=== PATIENT | male | born 1955 | race Caucasian/White ===

== ENCOUNTER 2024-08-21 10:05 | Outpatient (CLI) | payer OTHER, SELFPAY ==
--- OUTSIDE RECORDS SUMMARY | 2024-08-21 10:12 | XMS_ITS | Encounter Summary ---
Author Name [facility] [place] Address [address] [place] [id number] Care Team Providers Care Food Production Supervisor Name Role Phone YUKO BUENROSTRO Primary Care Provider Unavailabl e Insurance Providers: All historical and current Section Date Range: From patient's date of to the date document was created. This section includes the names of all active insurance providers for the patient. Insurance Provider Type of Coverage Plan Name Start of Policy Coverage End of Policy Coverage Group Number Member ID Insurance Provider's Telephone Number Policy Valencia's Name Patient's Relationship to Policy Valencia MEDICARE (WNR) MEDICARE (M) PART A Oct 21, 2020 PART A [id number] [phone] Tabitha DAVIS PATIENT Selected Encounter This section includes the information on record at [place] for the Encounter. Date/Time Encounter Type Encounter Description Reason Provider Source Nov 25, 2023 10:00 AM MTMS BY PHARM EST 15 MIN CLINICAL PHARMACY ICD-10-CM E11.9 Type 2 diabetes mellitus without complications GRANT ROBERTSON E Encounter Template Text not used by [place] Assessments - Encounter Diagnoses This section includes the primary and secondary diagnoses documented for the Encounter. Date/Time Primary/Secondary Diagnosis Diagnosis Name Provider Source Nov 25, 2023 10:29 AM PRIMARY Type 2 diabetes mellitus without complications GRANT ROBERTSON [facility] Nov 25, 2023 10:29 AM SECONDARY Essential (primary) hypertension GRANT ROBERTSON [facility] Plan of Treatment: Future Appointments (+ 6 months) and Future Tests (+/- 45 days) The Plan of Treatment section includes future care activities for the [facility] [place] [facility] This section includes future appointments and future orders which are active, pending or scheduled. Future Appointments This section includes appointments that were scheduled to occur 6 months from the date of the Encounter, up to a maximum of 20 appointments. The data comes from all [place] treatment facilities. Appointment Date/Time Appointment Type Appointme nt Facility Name Jan 07, 2024 11:00 AM AMBULATORY - NONE [facility] Jan 08, 2024 10:30 AM [facility] Jan 09, 2024 11:00 AM [facility] Jan 22, 2024 11:15 AM AMBULATORY - NONE [facility] Jan 23, 2024 09:00 AM AMBULATORY - NONE [facility] Apr 07, 2024 01:00 PM AMBULATORY - NONE [facility] Social History: Smoking Status (Most current) and Tobacco Use (All prior to encounter date) This section includes the most current, and the historical, smoking and tobacco- related health factors from the [place] facility where the Encounter took place. Current Smoking Status This section includes the most current smoking, or tobacco-related health factor, from the [place] facility where the Encounter took place. Date/Time Current Smoking Status Comment Randall ity Sep 30, 2023 11:58 PM VA-TOBACCO NEVER USED [facility] Tobacco Use History This section includes a history of the smoking, or tobacco-related health factors, that were collected on or before the date of the Encounter. The data comes from the [place] facility where the Encounter took place. Date/Time Smoking Status/Tobacco Use Comment F acility Sep 11, 2022 02:15 PM VA-TOBACCO NEVER USED [facility] Feb 16, 2019 02:36 PM VA-TOBACCO NEVER USED [facility] Encounter Notes: All associated encounter notes This section contains the clinical notes associated to the Encounter. Date/Time Encounter Note(s) Provider Source Nov 25, 2023 10:05 AM PHARMACY NOTE: LOCAL TITLE: PHARMACOTHERAPY-CLINICAL PHARMACY NOTE STANDARD TITLE: PHARMACY NOTE DATE OF NOTE: NOV 25, 2023@10:05 ENTRY DATE: NOV 25, 2023@10:05:48 AUTHOR: ELISHA ROBERTSON COSIGNER: URGENCY: STATUS: COMPLETED Visit Type: VVC --> switched to phone Visit conducted by clinical video telehealth. Patient verbal consent obtained. Location/emergency number confirmed KARIN DAVIS is a 68 YO MALE followed by [facility] for medication management. During last contact with patient, the following changes were made: - Start taking carvedilol BID SUBJECTIVE: HPI: Last contacted by [facility] 10/28/23 and plan was to increase carvedilol to prescribed dose. During Current Visit: - Reports no questions/concerns Lifestyle: Diet: - Drinking coconut milk with caffeine during the day & body armor at night Exercise: none; plans to start walking again ROS: (-) hypoglycemia symptoms (-) hyperglycemia symptoms: (-) chest pain (-) muscle pain/cramps (-) hypotension symptoms (-) HTN symptoms Blood pressure blood sugar DATE SBP DPB Pulse AM 11/11 142 89 94 171 11/12 103 85 75 123 11/13 126 82 91 192 11/14 120 80 93 98 11/15 123 82 62 78 11/16 134 11/18 126 96 75 114 11/19 126 76 106 152 11/20 129 92 63 139 11/21 128 87 87 82 11/22 127 101 123 11/23 112 88 92 164 11/24 136 96 78 154 2/ [address] 88 83 130 MIN 103 76 62 78 MAX 142 101 106 192 STDEV 10 7 13 34 Adherence to medications: no missed doses reported OBJECTIVE: ALLERGIES/ADR: NIACIN (March 02, 2019) MEDICATION RECONCILIATION: Active Outpatient Medications (excluding Supplies): Outpatient Medications Status 1) ACCU-CHEK GUIDE (GLUCOSE) TEST STRIP USE 1 STRIP ACTIVE TWICE A WEEK 2) APIXABAN 5MG TAB TAKE ONE TABLET BY MOUTH EVERY 12 ACTIVE HOURS TO PREVENT STROKES 3) ASPIRIN 81MG EC TAB TAKE ONE TABLET BY MOUTH EVERY ACTIVE DAY 4) ATORVASTATIN CALCIUM 80MG TAB TAKE ONE-HALF TABLET BY ACTIVE MOUTH AT BEDTIME 5) CARVEDILOL 12.5MG TAB TAKE ONE TABLET BY MOUTH TWICE Confirmed A DAY FOR BLOOD PRESSURE 6) CHOLECALCIF 25MCG (D3-1,000UNIT) TAB TAKE ONE TABLET ACTIVE BY MOUTH EVERY DAY FOR VITAMIN D REPLACEMENT 7) CYANOCOBALAMIN 1000MCG TAB TAKE ONE TABLET BY MOUTH ACTIVE EVERY DAY FOR B12 8) EMPAGLIFLOZIN 25MG TAB TAKE ONE TABLET BY MOUTH EVERY Confirmed MORNING FOR DIABETES 9) GLIPIZIDE 10MG SA TAB TAKE TWO TABLETS BY MOUTH EVERY Confirmed DAY FOR DIABETES 10) LIDOCAINE 4% TOP CREAM APPLY MODERATE AMOUNT ACTIVE TOPICALLY FOUR TIMES A DAY NEEDED FOR NUMBNESS/DISCOMFORT IN FEET 11) LISINOPRIL 40MG TAB TAKE ONE TABLET BY MOUTH EVERY Confirmed DAY FOR BLOOD PRESSURE 12) MAGNESIUM OXIDE 420MG TAB TAKE ONE TABLET BY MOUTH ACTIVE TWICE A DAY FOR LOW MAGNESIUM LEVEL 13) METFORMIN HCL 1000MG TAB TAKE ONE TABLET BY MOUTH TWO Confirmed TIMES A DAY 14) PIOGLITAZONE HCL 45MG TAB TAKE ONE TABLET BY MOUTH Confirmed EVERY DAY FOR DIABETES Non-VA Medications Status 1) Non-VA NON VA MED NOT LISTED MISCELLANEOUS NERVIVE ACTIVE MOUTH EVERY DAY 15 Total Medications Vitals: Temperature: 97.8 F [36.6 C] (10/01/2023 13:43) Blood Pressure: 123/85 (10/01/2023 13:27) Pulse: 83 (10/01/2023 13:27) Respiration: 17 (10/01/2023 13:43) Pain: 0 (10/01/2023 13:43) Height: 73 in [185.4 cm] (10/01/2023 13:43) Weight: 206.7 lb [93.76 kg] (10/01/2023 13:43) BMI: 27.3 LABS: Basic Metabolic Panel SODIUM 139 (10/01/23) POTASSIUM 4.4 (10/01/23) CREATININE 1.3 H (10/01/23) UREA NITROGEN 20 (10/01/23) GLUCOSE 278 H (10/01/23) CO2 28 (10/01/23) CHLORIDE 104 (10/01/23) EGFR (05/24) 11/22/21 @ 0941 67 CREATININE EGFR (CKD-EPI) 10/01/23 @ 1213 61 MAGNESIUM 1.8 (10/01/23) Collection DT Specimen Test Name Result Units Ref Range 10/01/2023 12:13 PLASMA CREATININE 1.3 H mg/dL 0.7 - 1.2 03/05/2023 10:46 PLASMA CREATININE 1.3 H mg/dL 0.7 - 1.2 10/16/2022 15:07 PLASMA CREATININE 1.2 mg/dL 0.7 - 1.2 10/01/2023 12:13 PLASMA .CREAT EGFR(CKD-E 61 Ref: >=60 03/05/2023 10:46 PLASMA .CREAT EGFR(CKD-E 61 Ref: >=60 10/16/2022 15:07 PLASMA .CREAT EGFR(CKD-E 67 Ref: >=60 CHOLESTEROL 168 (10/01/23) MEASURED LDL____ LDL CALCULATION 100 H (10/01/23) HDL 40 (10/01/23) TRIGLYCERIDE____ Collection DT Spec HGBA1C 10/01/2023 12:14 BLOOD 9.7 H 06/07/2023 17:05 BLOOD 7.0 H 03/05/2023 10:46 BLOOD 7.5 H No data available for: ALB/CREAT RATIO,UR SGOT 21 (10/01/23) SGPT 25 (10/01/23) ASSESSMENT/PLAN: #DM - Goal A1c <8% (FBG 80-160, PPG <210) d/t age per VA/DoD guidelines. Last a1c above goal. BG now averaging at goal. No hypoglycemia. Will continue current meds and get updated a1c next month. - Continue empagliflozin 25mg po qday - Continue pioglitazone 45mg po qday - Continue glipizide SA 20mg po qday - Continue metformin 1000mg po BID - Start checking BG 2x/week #HTN - Goal <140/90 mmHg d/t age per JNC8 guidelines; <130/80mmHg per 2017 ACC/AHA guidelines if can tolerate without hypotension. Home readings right at goal. No changes today. - Continue carvedilol 12.5mg po BID - Continue lisinopril 40mg po qday - Check & record BP daily #Disease-Specific Med Rec: Completed today #Labs: a1c 01/06 - Education provided on therapeutic nonpharmacologic management to achieve goals. - [place] verbalized understanding to all plans discussed today. Questions were answered to vet's satisfaction. Time spent: 15 minutes RTC: 01/07 at 10:30 by phone /viridiana/ ELISHA ROBERTSON PHARMD, BCACP CLINICAL SQL SERVER DBA Signed: 11/25/2023 10:29 ELISHA ROBERTSON [facility]
--- OUTSIDE RECORDS SUMMARY | 2024-08-21 10:12 | XMS_ITS | Encounter Summary ---
Author Name [facility] [place] [facility] [place] Organization [facility] [place] Address [address] [place] [id number] Care Team Providers Care Precision Agriculture Technician Name Role Phone YUKO BUENROSTRO Primary Care [...] PART A Oct 21, 2020 PART A [id number] [phone] Tabitha DAVIS PATIENT Selected Encounter This section includes the information on record at [place] for the Encounter. Date/Time Encounter Type Encounter Description Reason Provider Source Oct 01, 2023 01:45 PM Outpatient Encounter PRIMARY CARE/MEDICINE YUKO PALMA Merna Encounter Template Text not used by [place] Plan of Treatment: Future Appointments (+ 6 months) and Future Tests (+/- 45 days) The Plan of Treatment section includes future care activities for the patient from all [place] treatmentfacilities. This section includes future appointments and future orders which are active, pending or scheduled. Future Appointments This section includes appointments that were scheduled to occur 6 months from the date of the Encounter, up to a maximum of 20 appointments. The data comes from all [place] treatment facilities. Appointment Date/Time Appointment Type Appointme nt Facility Name Oct 28, 2023 08:30 AM AMBULATORY - NONE [facility] Oct 28, 2023 11:00 AM AM[facility]ULATORY - NONE [facility] Nov 25, 2023 10:00 AM AMBULATORY - NONE [facility] Jan 07, 2024 11:00 AM AMBULATORY - NONE [facility] Jan 08, 2024 10:30 AM AMBULATORY - NONE [facility] Jan 09, 2024 11:00 AM AMB[facility]ATORY - NONE [facility] Jan 22, 2024 11:15 AM AMBULATORY - NONE [facility] Jan 23, 2024 09:00 AM AMBULATORY - NONE [facility] Lab Results: +/- 30 days of the encounter This section includes the Chemistry and Hematology Lab Results on record with [place] for the patient. Radiology Reports and Pathology Reports are provided separately, in subsequent sections. Lab Results This section contains the Chemistry/Hematology Results that were resulted 30 days before or 30 daysafter the date of the Encounter. Date/Time Source Result Type Result - Unit Interpretation Reference Range Comment Oct 15, 2023 01:59 PM [facility] OCCULT BLOOD FIT X1 SCREEN Specimen Type: FECES No comment entered. Ordering Provider: YUKO PALMA Report Released Date/Time: Oct 01, 2023 02:20 PM Reporting Lab: [facility] [id number] Performing Lab: [facility] [phone] OCCULT BLOOD (FIT) #1 OF 1 Negative Negative Oct 01, 2023 12:13 PM [facility] HEMOGLOBIN A1C Specimen Type: BLOOD Comment: Values obtained from A1C measurements can vary. For typical A1C assays, a reported value of 7.0 could actually be between 6.7 and 7.3 if measured by a reference method. A reported value of 9.0 could actually be between 8.7 and 9.3. Ref: http://www.ngs p.org/CAPdata. asp Ordering Provider: YUKO PALMA Report Released Date/Time: Sep 11, 2022 02:51 PM Reporting Lab: [facility] [id number] Performing Lab: [facility] [phone] HEMOGLOBIN A1C 9.7 H 4.0-6.0 Oct 01, 2023 12:13 PM [facility] BASIC METABOLIC PANEL+MG Specimen Type: PLASMA No comment entered. Ordering Provider: YUKO PALMA Report Released Date/Time: Sep 11, 2022 02:51 PM Reporting Lab: [facility] [phone] Performing Lab: [facility] [phone] CREATININE 1.3 mg/dL H 0.7-1.2 UREA NITROGEN 20 mg/dL 8-26 GLUCOSE 278 mg/dL H 70-100 SODIUM 139 mmol/L 136-145 POTASSIUM 4.4 mmol/L 3.5-5.1 CHLORIDE 104 mmol/L 98-107 CO2 28 mmol/L 22-29 CALCIUM 9.3 mg/dL 8.4-10.2 MAGNESIUM 1.8 mg/dL 1.6-2.6 ANION GAP 7 mmol/L 5-15 .CREAT EGFR(CKD-EPI) 61 >60 Oct 01, 2023 12:13 PM [facility] LIPID PANEL,NON-FASTING Specimen Type: PLASMA No comment entered. Ordering Provider: YUKO PALMA Report Released Date/Time: Sep 11, 2022 02:51 PM Reporting Lab: [facility] [phone] Performing Lab: [facility] [phone] CHOLESTEROL 168 mg/dL <199 .HDL 40 mg/dL >40 LDL CALCULATION 100 mg/dL H <99 VLDL CALCULATION 28 mg/dL <29 NON HDL CHOLESTEROL 128 mg/dL <129 TRIG(NON FASTING) 139 mg/dL <149 Oct 01, 2023 12:13 PM [facility] AST/SGOT Specimen Type: PLASMA No comment entered. Ordering Provider: YUKO PALMA Report Released Date/Time: Sep 11, 2022 02:51 PM Reporting Lab: [facility] [phone] Performing Lab: [facility] [phone] AST/SGOT 21 U/L <34 Oct 01, 2023 12:13 PM [facility] ALT/SGPT Specimen Type: PLASMA No comment entered. Ordering Provider: YUKO PALMA Report Released Date/Time: Sep 11, 2022 02:51 PM Reporting Lab: [facility] [phone] Performing Lab: [facility] [phone] ALT/SGPT 25 U/L <55 Oct 01, 2023 12:13 PM [facility] CBC Specimen Type: BLOOD No comment entered. Ordering Provider: YUKO PALMA Report Released Date/Time: Sep 11, 2022 02:51 PM Reporting Lab: [facility] [phone] Performing Lab: [facility] [phone] WBC 8.82 10*3/uL 4.0-11.0 RBC 5.56 10*6/uL 4.6-6.2 HGB 16.9 g/dL 13.5-17.9 HCT 50.9 41-54 MCV 91.5 fL 80-100 MCH 30.4 pg 27-33 MCHC 33.2 g/dL 32.0-37.5 PLT 220 10*3/uL 150-400 MPV 9.7 fL 7.4-10.4 RDW 14.6 H 11.5-14.5 Vital Signs: All taken on the encounter date This section contains inpatient and outpatient Vital Signs collected on the date of the Encounter. Date/Time Temperature Pulse Blood Pressure Respiratory Rate SP02 Pain Height Weight Body Mass Index Source Oct 01, 2023 01:43 PM 97.8 F 17 /min 96 % [address] [facility] Oct 01, 2023 01:27 PM 83 /min 123/85 mm[Hg] [facility] Social History: Smoking Status (Most current) and Tobacco Use (All prior to encounter date) This section includes the most current, and the historical, smoking and tobacco- related health factors from the [place] facility where the Encounter took place. Current Smoking Status This section includes the most current smoking, or tobacco-related health factor, from the [place] facility where the Encounter took place. Date/Time Current Smoking Status Comment Randall polanco Sep 30, 2023 11:58 PM VA-TOBACCO NEVER USED [facility] Tobacco Use History This section includes a history of the smoking, or tobacco-related health factors, that were collected on or before the date of the Encounter. The data comes from the [place] facility where the Encounter took place. Date/Time Smoking Status/Tobacco Use Comment F linus Sep 11, 2022 02:15 PM VA-TOBACCO NEVER USED [facility] Feb 16, 2019 02:36 PM VA-TOBACCO NEVER USED [facility] Encounter Notes: All associated encounter notes This section contains the clinical notes associated to the Encounter. Date/Time Encounter Note(s) Provider Source Oct 01, 2023 01:44 PM INTERNAL MEDICINE OUTPATIENT NOTE: LOCAL TITLE: MEDICINE CLINIC NURSING NOTE STANDARD TITLE: INTERNAL MEDICINE OUTPATIENT NOTE DATE OF NOTE: OCT 01, 2023@13:44 ENTRY DATE: OCT 01, 2023@13:44:26 AUTHOR: JAYMIE CORRAL COSIGNER: URGENCY: STATUS: COMPLETED MEDICINE CLINIC NURSING NOTE Has ADDENDA TYPE OF VISIT: Appointment Check In Type of appointment: In-person appointment REASON FOR VISIT: annual ALLERGIES: NIACIN (March 02, 2019) VITAL SIGNS: Blood Pressure: 123/85 (10/01/2023 13:27) Pulse: 83 (10/01/2023 13:27) Respiration: 17 (10/01/2023 13:43) Temperature: 97.8 F [36.6 C] (10/01/2023 13:43) Weight: 206.7 lb [93.76 kg] (10/01/2023 13:43) Height: 73 in [185.4 cm] (10/01/2023 13:43) BMI: 27.3 O2 Sat: 96% (10/01/2023 13:43) Pain: 0 (10/01/2023 13:43) PAIN SCREEN: Patient is not having significant pain that they wish to discuss with their provider today. Suicide Screen: C-SSRS Screening [place] Suicide Severity Rating Scale (C-SSRS) screener 1. Over the past month, have you wished you were or wished you could go to sleep and not wake up? No 2. Over the past month, have you had any actual thoughts of killing yourself? No 3. Over the past month, have you been thinking about how you might do this? Response not required due to responses to other questions. 4. Over the past month, have you had these thoughts and had some intention of acting on them? Response not required due to responses to other questions. 5. Over the past month, have you started to work out or worked out the details of how to kill yourself? Response not required due to responses to other questions. 6. If yes, at any time in the past month did you intend to carry out this plan? Response not required due to responses to other questions. 7. In your lifetime, have you ever done anything, started to do anything, or prepared to do anything to end your life (for example, collected pills, obtained a gun, gave away valuables, went to the roof but didn't jump)? No 8. If YES, was this within the past 3 months? Response not required due to responses to other questions. Depression Screening: Perform PHQ-2 A PHQ-2 screen was performed. The score was 0 which is a negative screen for depression. Over the past two weeks, how often have you been bothered by the following problems? 1. Little interest or pleasure in doing things Not at all 2. Feeling down, depressed, or hopeless Not at all Alcohol Use Screen (AUDIT-C): Alcohol Screen: SCREEN FOR ALCOHOL (AUDIT-C) An alcohol screening test (AUDIT-C) was negative (score=2). 1. How often did you have a drink containing alcohol in the past year? Two to four times a month 2. How many drinks containing alcohol did you have on a typical day when you were drinking in the past year? One or two drinks 3. How often did you have six or more drinks on one occasion in the past year? Never Nursing Annual Screening: Fall History Screen During the past 12 months, have you had any falls? Patient does not report any falls in the past 12 months. MEDICATIONS: Patient is on one of the following medication classes: Antihypertensives, Antidepressants, Antipsychotics, Diuretics, or Controlled substance medication used for pain. FALL RISK ADVICE: Fall Risk Advice provided. Handout entitled Fall Prevention At Home reviewed and given to patient and/or significant other. Script Talk Screen Are you able to read your prescription bottles with your glasses, magnifiers or other aids? Yes or patient not taking any prescriptions. Skin Screen Patient reports any current pressure ulcers, a history of pressure ulcers, or a wound from a medical or surgical instrument maker or Patient is bed-confined or a wheelchair-user or Patient requires assistance to transfer/change position No, Skin Screen is Negative Home Abuse/Violence Screen Is your home free of abuse and violence? Yes MOVE! Program Screen Body Mass Index (BMI)= 27.3 [place]: Collection DT Specimen Test Name Result Units Ref Range 10/01/2023 12:14 BLOOD !! HEMOGLOBIN A1C 9.7 H % 4.0 - 6.0 !! Indicates COMMENTS AVAILABLE...Refer to Interim Lab Report. Khalif [place] Hgb A1C: No data available [place] Hgb A1C: No data available Point of Care Hgb A1C: POC HGB A1C____ No Outpatient Nutrition Screen Body Mass Index (BMI)= 27.3 [place]: Collection DT Specimen Test Name Result Units Ref Range 10/01/2023 12:14 BLOOD !! HEMOGLOBIN A1C 9.7 H % 4.0 - 6.0 !! Indicates COMMENTS AVAILABLE...Refer to Interim Lab Report. Khalif [place] Hgb A1C: No data available [place] Hgb A1C: No data available Point of Care Hgb A1C: POC HGB A1C____ Is patient's BMI less than 18.5? No Does patient have swallowing, coughing, or chewing problems affecting oral intake? No Has patient experienced unplanned weight loss or gain greater than 10 pounds over the last 2 months? No Is patient's Hgb A1C (Glycosylated Hemoglobin) greater than 9.5? Yes Is patient receiving Total Parenteral Nutrition (TPN) or Tube Feedings? No Referral to Nutrition Service (Dietary) ordered. Patient Health Education Screen BARRIERS/SPECIAL NEEDS: No barriers identified PREFERRED STYLE OF LEARNING: Watching something Client Assistive Service (BOB) Screen Does the patient require assistance with outpatient visit? No /viridiana/ JAYMIE CORRAL LPN, LPN Signed: 10/01/2023 13:47 10/01/2023 ADDENDUM STATUS: COMPLETED Herpes Zoster (Shingles) Vaccine: Recombinant zoster vaccine (Shingrix, RZV) dose #2 Administered: ZOSTER RECOMBINANT Date Administered: Oct 01, 2023 13:45 Series: Series 2 Laborer Electroplating: [employer] Lot: [id number] Exp Date: Apr 27, 2024 ND: [id number] Admin Route/Site: INTRAMUSCULAR/LEFT DELTOID Dosage: 0.5mL Vaccine Information Statement(s): RECOMBINANT ZOSTER VACCINE VIS Nov 24, 2021 ([facility]) Order By: Policy Administered By: Frantz Willis Comment: [id number] Vaccine Information Sheet (VIS) was given to the patient/caregiver, education regarding adverse reactions was discussed, as well as barriers to learning, if any, were acknowledged. /viridiana/ FRANTZ WILLIS LPN Signed: 10/01/2023 14:32 JAYMIE CORRAL [facility]
--- OUTSIDE RECORDS SUMMARY | 2024-08-21 10:12 | XMS_ITS ---
[place] MED NUTRITION IN[place] SUBSEQ [facility] Encounter Summary Created on: August 21, 2024 VINCENTSILVAKARIN OSMAN : 1955 Sex: Male Author Name [facility] [facility] Address [address] [place] [id number] Care Team Providers Care Terry Cloth Cutter Hand Name Role Phone YUKO BUENROSTRO Primary Care [...] PART A Oct 21, 2020 PART A [id number] [phone] Tabitha DAVIS PATIENT Selected Encounter This section includes the information on record at [place] for the Encounter. Date/Time Encounter Type Encounter Description Reason Provider Source Jan 09, 2024 11:00 AM MED NUTRITION INDIV SUBSEQ NUTRITION/DIETETI CS-INDIVIDUAL ICD-10-CM E11.65 Type 2 diabetes mellitus with hyperglycemia BOB WOODARD [facility] Encounter Template Text not used by [place] Assessments - Encounter Diagnoses This section includes the primary and secondary diagnoses documented for the Encounter. Date/Time Primary/Secondary Diagnosis Diagnosis Name Provider Source Jan 09, 2024 11:56 AM PRIMARY Type 2 diabetes mellitus with hyperglycemia BOB WOODARD [facility] Jan 09, 2024 11:56 AM SECONDARY Dietary counseling and surveillance BOB WOODARD [facility] Plan of Treatment: Future Appointments (+ 6 months) and Future Tests (+/- 45 days) The Plan of Treatment section includes future care activities for the patient from all [facility]. This section includes future appointments and future orders which are active, pending or scheduled. Future Appointments This section includes appointments that were scheduled to occur 6 months from the date of the Encounter, up to a maximum of 20 appointments. The data comes from all [facility]. Appointment Date/Time Appointment Type Appointme nt Facility Name Jan 22, 2024 11:15 AM AMBULATORY - NONE [facility] Jan 23, 2024 09:00 AM AMBULATORY - NONE [facility] Apr 07, 2024 01:00 PM AMBULATORY - NONE [facility] Jun 03, 2024 07:01 PM AMBULATORY - NONE [facility] Jun 07, 2024 04:06 PM AMBULATORY - NONE [facility] Jun 08, 2024 05:15 PM AMBULATORY - NONE [facility] Jun 18, 2024 01:00 PM AMBULATORY - NONE [facility] Jun 18, 2024 02:00 PM AMBULATORY - NONE [facility] Jun 24, 2024 07:00 AM AMBULATORY - NONE [facility] Jul 07, 2024 02:30 PM AMBULATORY - NONE [facility] Active, Pending, and Scheduled Orders This section includes a listing of several types of active, pending, and scheduled orders, including clinic medications orders, diagnostic test orders, procedure orders and consult orders; where the start date of the order is 45 days before the date of the Encounter or 45 days after the date of theEncounter. The data comes from all [facility]. Test Date/Time Test Type Test Details Facility Name Jan 23, 2024 09:38 AM Laboratory - Chemi stry Order ALBUMIN/CREATININE RATIO URINE URINE WC ONCE [facility] Lab Results: +/- 30 days of the encounter This section includes the Chemistry and Hematology Lab Results on record with [place] for the patient. Radiology Reports and Pathology Reports are provided separately, in subsequent sections. Lab Results This section contains the Chemistry/Hematology Results that were resulted 30 days before or 30 daysafter the date of the Encounter. Date/Time Source Result Type Result - Unit Interpretation Reference Range Comment Jan 22, 2024 10:59 AM [facility] BASIC METABOLIC PANEL+MG Specimen Type: PLASMA No comment entered. Ordering Provider: GRANT ROBERTSON Report Released Date/Time: Jan 08, 2024 11:48 AM Reporting Lab: [facility] [id number] Performing Lab: [facility] [id number] CREATININE 1.5 mg/dL H 0.7-1.2 UREA NITROGEN 30 mg/dL H 8-26 GLUCOSE 224 mg/dL H 70-100 SODIUM 139 mmol/L 136-145 POTASSIUM 4.5 mmol/L 3.5-5.1 CHLORIDE 106 mmol/L 98-107 CO2 25 mmol/L 22-29 CALCIUM 9.5 mg/dL 8.4-10.2 MAGNESIUM 1.8 mg/dL 1.6-2.6 ANION GAP 8 mmol/L 5-15 .CREAT EGFR(CKD-EPI) 51 L >60 Jan 07, 2024 10:55 AM [facility] LIPID PANEL,NON-FASTING Specimen Type: PLASMA No comment entered. Ordering Provider: YUKO BUENROSTRO Report Released Date/Time: Sep 11, 2022 02:51 PM Reporting Lab: [facility] [id number] Performing Lab: [facility] [id number] CHOLESTEROL 148 mg/dL <199 .HDL 37 mg/dL L >40 LDL CALCULATION 81 mg/dL <99 VLDL CALCULATION 30 mg/dL H <29 NON HDL CHOLESTEROL 111 mg/dL <129 TRIG(NON FASTING) 149 mg/dL <149 Jan 07, 2024 10:54 AM [facility] HEMOGLOBIN A1C Specimen Type: BLOOD Comment: Values obtained from A1C measurements can vary. For typical A1C assays, a reported value of 7.0 could actually be between 6.7 and 7.3 if measured by a reference method. A reported value of 9.0 could actually be between 8.7 and 9.3. Ref: http://www.ng sp.org/CAPdat a.asp Ordering Provider: GRANT ROBERTSON Report Released Date/Time: Nov 25, 2023 10:30 AM Reporting Lab: [facility] [id number] Performing Lab: [facility] [id number] HEMOGLOBIN A1C 7.9 H 4.0-6.0 Jan 07, 2024 10:54 AM [facility] COMPREHENSIVE METABOLIC PANEL+MG Specimen Type: PLASMA No comment entered. Ordering Provider: GRANT ROBERTSON Report Released Date/Time: Nov 25, 2023 10:30 AM Reporting Lab: [facility] [id number] Performing Lab: [facility] [phone] CREATININE 1.6 mg/dL H 0.7-1.2 UREA NITROGEN 27 mg/dL H 8-26 GLUCOSE 169 mg/dL H 70-100 SODIUM 141 mmol/L 136-145 POTASSIUM 4.3 mmol/L 3.5-5.1 CHLORIDE 107 mmol/L 98-107 CO2 25 mmol/L 22-29 CALCIUM 9.4 mg/dL 8.4-10.2 PROTEIN,TOTAL 6.7 g/dL 6.0-8.3 ALBUMIN 3.8 g/dL 3.5-5.2 BILIRUBIN, TOTAL 0.8 mg/dL 0.2-1.2 MAGNESIUM 2.1 mg/dL 1.6-2.6 ANION GAP 9 mmol/L 5-15 ALKALINE PHOSPHATASE 67 U/L 40-150 ALT/SGPT 21 U/L <55 AST/SGOT 18 U/L <34 .CREAT EGFR(CKD-EPI) 47 L >60 Social History: Smoking Status (Most current) and Tobacco Use (All prior to encounter date) This section includes the most current, and the historical, smoking and tobacco- related health factors from the [place] facility where the Encounter took place. Current Smoking Status This section includes the most current smoking, or tobacco-related health factor, from the [place] facility where the Encounter took place. Date/Time Current Smoking Status Comment Randall polanco Sep 30, 2023 11:58 PM VA-TOBACCO NEVER USED [facility] Tobacco Use History This section includes a history of the smoking, or tobacco-related health factors, that were collected on or before the date of the Encounter. The data comes from the [place] facility where the Encounter took place. Date/Time Smoking Status/Tobacco Use Comment Sundar [email or web address] Sep 11, 2022 02:15 PM VA-TOBACCO NEVER USED [facility] Feb 16, 2019 02:36 PM VA-TOBACCO NEVER USED [facility] Encounter Notes: All associated encounter notes This section contains the clinical notes associated to the Encounter. Date/Time Encounter Note(s) Provider Source Jan 09, 2024 11:06 AM NUTRITION EDUCATIO N NOTE: LOCAL TITLE: EDUCATION NUTRITION STANDARD TITLE: NUTRITION EDUCATION NOTE DATE OF NOTE: JAN 09, 2024@11:06 ENTRY DATE: JAN 09, 2024@11:06:58 AUTHOR: BOB WOODARD EXP COSIGNER: URGENCY: STATUS: COMPLETED Visit Delivery Method: In-Person Visit Type: Follow Up Visit Time spent with [place]: 55 min Reason for visit: DM mgmt (68 yo MALE) Preferred Name: Karin ASSESSMENT: Pertinent labs/vitals: Reviewed Collection DT Spec HGBA1C 01/07/2024 10:54 BLOOD 7.9 H 10/01/2023 12:14 BLOOD 9.7 H 06/07/2023 17:05 BLOOD 7.0 H 03/05/2023 10:46 BLOOD 7.5 H 09/11/2022 13:21 BLOOD 8.1 H 04/25/2021 10:36 BLOOD 8.0 H 11/08/2020 10:58 BLOOD 8.4 H 08/02/2020 12:11 BLOOD 8.3 H GLUCOSE 169 H (01/07/24) Height: 73 in [185.4 cm] (10/01/2023 13:43) Weight: 206.7 lb [93.76 kg] (10/01/2023 13:43) BMI: 27.3 UBWR: 200-210# Weight change: no sig changes Measurement DT WEIGHT LB(KG)[BMI] 01/09/2024 200.3# 10/01/2023 13:43 206.7(93.76)[27] Vet recall of prior ed: - initially poor ability for ID'g sources of CHO (on food model test vet was able to correctly identify potatoes, white bread, tortilla as CHO but incorrectly identified beef & pork as containing CHO, and did not identify fruit, corn, beans, crackers, wheat bread as containing CHO) - vet remembered concept of carb pairing, but did not have a good handle on what types of food slow down carb, what types of carb are faster than others #DM2 - met with pharm yesterday, reviewed bs, bp; was told to cut down lisinopril - activity: walking 3mi daily most days - drinking lots of water or SF body armor drink, no pop, only uses juice for hypos - reads labels occasionally, knows to look for sugar and avoid/limit if he can (doesn't have in depth understanding of how else to prioritize info gleaned from nutrition label) - med mgmt: empa, glipizide, metformin, pioglitazone #HTN/HLD - relevant dx: h/o CVA 05/2018 w/o overt residual deficits, AFib - not primary area of focus; not discussed today Comparative Standards: - 45-60g CHO/meal, 0-30g CHO/snack NUTRITION DIAGNOSIS: Active Problem: Inconsistent CHO intake Etiology: food and nutrition-related knowledge deficit i/s/o endocrine dysfunction, and competing values for bx change S/Sx: diet recall demonstrating inconsistent CHO intake (outside comparative standard ranges for meal, for a snack), subjective statements demonstrating gaps in DM mgmt knowledge, h/o A1c >8. INTERVENTION: Nutrition Rx - Consistent CHO diet - 45-60g CHO/meal, 0-30g CHO/snack EDUCATION Content related nutrition education - what is a CHO (starch and/or sugar) - CHO is the only macro that will be absorbed as sugar - pro/fat/fiber slow down CHO absorption if eaten at the same time - not all pro/fat/fiber equally health promoting, but only CHO will raise your blood SUGAR specifically - white vs. wheat, typically similar total CHO, but speed of absorption different r/t fat/fiber/protein content - reviewed handouts Nutrition related skill education - ID'g CHO vs. nonCHO foods (practiced with food models) - briefly reviewed label reading to look for g CHO - basic principle of how to eyeball amount of carb on a plate and stay within CHO budget for a meal PARTICIPANT(S) RESPONSE (OUTCOME): Able to communicate or demonstrate understanding with no further questions. MONITORING/EVALUATION: Intervention Goal(s): - Vet will review provided handouts; bring questions to f/u >> n/a, vet reported not receiving; was provided at todays appt, d/c - We will revisit SMART goal setting at future f/u >> n/a, used today for in depth ed vs. counseling/goal setting, d/c (revisit PRN) *NEW* - Vet will be able to correctly ID 8/10 CHO vs. non-CHO containing foods at f/u - Vet will be able to recall 2+ foods that slow CHO absorption (fat/fiber/pro) Outcome Goal(s): - A1c </= 8 at next check >> MET, ongoing FOLLOW UP: Follow up appointment will be scheduled: 04/07 [facility] 1pm /es/ BOB WOODARD [address] 4D PACT DIETITIAN Signed: 01/09/2024 12:27 BOB WOODARD [facility]
--- OUTSIDE RECORDS SUMMARY | 2024-08-21 10:12 | XMS_ITS | Encounter Summary ---
Author Name [facility] ([place] Address [address] [place] [address] Care Team Providers Care Case Fitter Name Role Phone YUKO BUENROSTRO Primary Care [...] PART A Oct 21, 2020 PART A [id number] [phone] Tabitha DAVIS PATIENT Selected Encounter This section includes the information on record at [place] for the Encounter. Date/Time Encounter Type Encounter Description Reason Provider Source Oct 01, 2023 01:03 PM OFFICE O/P EST HI 40-54 MIN PRIMARY CARE/MEDICINE ICD-10-CM I63.9 Cerebral infarction, unspecified YUKO PALMA [facility] Encounter Template Text not used by [place] Assessments - Encounter Diagnoses This section includes the primary and secondary diagnoses documented for the Encounter. Date/Time Primary/Secondary Diagnosis Diagnosis Name Provider Source Oct 01, 2023 02:26 PM PRIMARY Cerebral infarction, unspecified YUKO PALMA [facility] Oct 01, 2023 02:26 PM SECONDARY Essential (primary) hypertension YUKO PALMA [facility] Oct 01, 2023 02:26 PM SECONDARY Hyperlipidemia, unspecified YUKO PALMA [facility] Oct 01, 2023 02:26 PM [facility] 01, 2023 02:26 PM SECONDARY Type 2 diabetes mellitus with diabetic polyneuropathy [facility] Oct 01, 2023 02:26 PM SECONDARY Type 2 diabetes mellitus without complications [facility] Oct 01, 2023 02:26 PM SECONDARY Unspecified atrial fibrillation [facility] Oct 01, 2023 02:26 PM SECONDARY Vitamin D deficiency, unspecified YUKO PALMA [facility] Plan of Treatment: Future Appointments (+ 6 months) and Future Tests (+/- 45 days) The Plan of Treatment section includes future care activities for the patient from all [facility]. This section includes future appointments and future orders which are active, pending or scheduled. Future Appointments This section includes appointments that were scheduled to occur 6 months from the date of the Encounter, up to a maximum of 20 appointments. The data comes from all [facility]. Appointment Date/Time Appointment Type Appointme nt Facility Name Oct 28, 2023 08:30 AM [facility] Oct 28, 2023 11:00 AM [facility] - NONE [facility] Nov 25, 2023 10:00 AM [facility] - NONE [facility] Jan 07, 2024 11:00 AM AMBULATORY - NONE [facility] Jan 08, 2024 10:30 AM [facility] Jan 09, 2024 11:00 AM [facility] - NONE [facility] Jan 22, 2024 11:15 AM AMBULATORY - NONE [facility] Jan 23, 2024 09:00 AM [facility] - NONE [facility] Lab Results: +/- 30 days of the encounter This section includes the Chemistry and Hematology Lab Results on record with [place] for the patient. Radiology Reports and Pathology Reports are provided separately, in subsequent sections. Lab Results This section contains the Chemistry/Hematology Results that were resulted 30 days before or 30 daysafter the date of the Encounter. Date/Time Source Result Type Result - Unit Interpretation Reference Range Comment Oct 15, 2023 01:59 PM [facility] OCCULT BLOOD FIT X1 SCREEN Specimen Type: FECES No comment entered. Ordering Provider: YUKO PALMA Report Released Date/Time: Oct 01, 2023 02:20 PM Reporting Lab: [facility] [id number] Performing Lab: [facility] [id number] OCCULT BLOOD (FIT) #1 OF 1 Negative Negative Oct 01, 2023 12:13 PM [facility] BASIC METABOLIC PANEL+MG Specimen Type: PLASMA No comment entered. Ordering Provider: YUKO PALMA Report Released Date/Time: Sep 11, 2022 02:51 PM Reporting Lab: [facility] [id number] Performing Lab: [facility] [id number] CREATININE 1.3 mg/dL H 0.7-1.2 UREA NITROGEN 20 mg/dL 8-26 GLUCOSE 278 mg/dL H 70-100 SODIUM 139 mmol/L 136-145 POTASSIUM 4.4 mmol/L 3.5-5.1 CHLORIDE 104 mmol/L 98-107 CO2 28 mmol/L 22-29 CALCIUM 9.3 mg/dL 8.4-10.2 MAGNESIUM 1.8 mg/dL 1.6-2.6 ANION GAP 7 mmol/L 5-15 .CREAT EGFR(CKD-EPI) 61 >60 Oct 01, 2023 12:13 PM [facility] HEMOGLOBIN A1C Specimen Type: BLOOD Comment: Values [...] Sep 11, 2022 02:51 PM Reporting Lab: [facility] [id number] Performing Lab: [facility] [phone] HEMOGLOBIN A1C 9.7 H 4.0-6.0 Oct 01, 2023 12:13 PM [facility] LIPID PANEL,NON-FASTING Specimen Type: PLASMA No comment entered. Ordering Provider: YUKO PALMA Report Released Date/Time: Sep 11, 2022 02:51 PM Reporting Lab: [facility] [id number] Performing Lab: [facility] [id number] CHOLESTEROL 168 mg/dL <199 .HDL 40 mg/dL >40 LDL CALCULATION 100 mg/dL H <99 VLDL CALCULATION 28 mg/dL <29 NON HDL CHOLESTEROL 128 mg/dL <129 TRIG(NON FASTING) 139 mg/dL <149 Oct 01, 2023 12:13 PM [facility] CBC Specimen Type: BLOOD No comment entered. Ordering Provider: YUKO PALMA Report Released Date/Time: Sep 11, 2022 02:51 PM Reporting Lab: [facility] [id number] Performing Lab: [facility] [phone] WBC 8.82 10*3/uL 4.0-11.0 RBC 5.56 10*6/uL 4.6-6.2 HGB 16.9 g/dL 13.5-17.9 HCT 50.9 41-54 MCV 91.5 fL 80-100 MCH 30.4 pg 27-33 MCHC 33.2 g/dL 32.0-37.5 PLT 220 10*3/uL 150-400 MPV 9.7 fL 7.4-10.4 RDW 14.6 H 11.5-14.5 Oct 01, 2023 12:13 PM [facility] AST/SGOT Specimen Type: PLASMA No comment entered. Ordering Provider: YUKO PALMA Report Released Date/Time: Sep 11, 2022 02:51 PM Reporting Lab: [facility] [phone] Performing Lab: [facility] [id number] AST/SGOT 21 U/L <34 Oct 01, 2023 12:13 PM [facility] ALT/SGPT Specimen Type: PLASMA No comment entered. Ordering Provider: YUKO PALMA Report Released Date/Time: Sep 11, 2022 02:51 PM Reporting Lab: [facility] [id number] Performing Lab: [facility] [phone] ALT/SGPT 25 U/L <55 Vital Signs: All taken on the encounter date This section contains inpatient and outpatient Vital Signs collected on the date of the Encounter. Date/Time Temperature Pulse Blood Pressure Respiratory Rate SP02 Pain Height Weight Body Mass Index Source Oct 01, 2023 01:43 PM 97.8 F 17 /min 96 % 0 [address] [facility] Oct 01, 2023 01:27 PM 83 /min 123/85 mm[Hg] [facility] Social History: Smoking Status (Most current) and Tobacco Use (All prior to encounter date) This section includes the most current, and the historical, smoking and tobacco- related health factors from the [place] facility where the Encounter took place. Current Smoking Status This section includes the most current smoking, or tobacco-related health factor, from the [place] facility where the Encounter took place. Date/Time Current Smoking Status Comment Randall polanco Sep 30, 2023 11:58 PM VA-TOBACCO NEVER USED [facility] Tobacco Use History This section includes a history of the smoking, or tobacco-related health factors, that were collected on or before the date of the Encounter. The data comes from the [place] facility where the Encounter took place. Date/Time Smoking Status/Tobacco Use Comment F linus Sep 11, 2022 02:15 PM VA-TOBACCO NEVER USED [facility] Feb 16, 2019 02:36 PM VA-TOBACCO NEVER USED [facility] Encounter Notes: All associated encounter notes This section contains the clinical notes associated to the Encounter. Date/Time Encounter Note(s) Provider Source Oct 01, 2023 01:03 PM INTERNAL MEDICINE NOTE: LOCAL TITLE: MEDICINE CLINIC NOTE STANDARD TITLE: INTERNAL MEDICINE NOTE DATE OF NOTE: OCT 01, 2023@13:03 ENTRY DATE: OCT 01, 2023@13:03:43 AUTHOR: YUKO PALMA EXP COSIGNER: URGENCY: STATUS: COMPLETED Nurse's notes reviewed from today. KARIN DAVIS is a 68 year old MALE who presents to clinic for his annual exam HPI: DM-II - Seen by [facility] pharmD prior to this visit. Started on empagliflozin as A1C was 9.7 today. He states has been drinking more soda recently, agrees to cut back. Has neuropathy. States has been seeing chiropractor who recommended TENs unit for feet. He states this has helped with his symptoms. He states a couple weeks ago a callus on the bottom of his foot opened up. He states it since has closed. Denies any active drainage/bleeding currenlty. No redness or pain. Hx of afib, denies CP or SOB. No LH/dizziness. Asymptomatic. Taking eliquis, denies bleeding issues. No s/s of TIA/CVA. Due for colorectal cancer screening - Denies any family hx of colon cancer. Denies any blood in stool. Agreeable to FIT screen. Social History: Branch of Service - [employer], never stationed overseas. EtOH - 1-2 drinks, 2x/week Tobacco - Never user Family History: Cancer - Uncle had lung cancer and neck tumor. ASCVD - Brother had heart valve replacement DM - Mother, Grandmother Surgical Hx: Appendectomy in teenage years L inguinal hernia in 2006 Active problems - Computerized Problem List is the source for the followin. Cerebrovascular accident - 05/2018 2. HTN - Hypertension ([facility] [id number]) 3. Diabetes Mellitus Type 2 ([facility] [id number]) 4. Atrial fibrillation 5. Hyperlipidemia ([facility] [id number]) 6. Hypomagnesemia 7. Deficiency of vitamin D3 8. Diabetic neuropathy Allergies: NIACIN (March 02, 2019) Medications: See below EXAM: VS: Temp: 97.8 F [36.6 C] (10/01/2023 13:43) BP: 123/85 (10/01/2023 13:27) Pulse:83 (10/01/2023 13:27) Resp: 17 (10/01/2023 13:43) Pain: 0 (10/01/2023 13:43) Weight: WEIGHTS IN LAST 6 MONTHS - NONE FOUND Body Mass Index: 27.3 GENERAL: Well nourished, well developed MALE . Not in acute distress. HEENT: Normocephalic/atraumatic. Eyes non-icteric. Mucous membranes moist. CV: irreg, irreg LUNGS: Non-labored breathing. Clear to auscultation bilaterally. ABDOMEN: Active bowel sounds. Abdomen soft, non-tender. Liver non-palpable. EXTREMITIES: No distal edema noted in bilateral LE. Large callus on bottom of foot. No open sores or drainage. No erythema, warmth or tenderness. <50% sensation to monofilament testing. Data/Labs: WBC: 8.82 RBC: 5.56 HGB: 16.9 HCT: 50.9 MCV: 91.5 MCH: 30.4 MCHC: 33.2 RDW: 14.6 H PLT: 220 MPV: 9.7 HGB A1C: 9.7 H GLUCOSE: 278 H UREA NITROGEN: 20 CREATININE: 1.3 H SODIUM: 139 POTASSIUM: 4.4 CHLORIDE: 104 CO2: 28 CALCIUM: 9.3 CHOLESTEROL: 168 MAGNESIUM: 1.8 HDL: 40 ANION GAP: 7 LDL CHOL: 100 H VLDL CHOL: 28 SGOT(37C): 21 SGPT(37C): 25 NON HDL CHOLESTEROL: 128 TRIG(NON FASTING): 139 CREATININE EGFR (CKD-EPI): 61 (x)Patient was informed of available lab, imaging, and other study results associated with today's visit. Assessment and Plan: # DM-II A1C today of 9.7, goal <8. Seen by [facility] PharmD today for CM of HTN, PharmD also agreed to assist with DM med management. - Metformin 1,000mg BID - Pioglitazone 45mg qday - Glipizide 20mg qday - Initiated empagliflozin per [facility] PharmD today - Check feet BID - Annual ophtho - Followed by [facility] PharmD # Diabetic neuropathy Has callous that opened up a few weeks ago, now has closed. No active drainage or signs of infection. high risk given neuropathy. He would like to see podiatry. - Lidocaine cream QID PRN - TENs unit helpful per chiro - Podiatry consult # Afib Asymptomatic. - Carvedilol 12.5mg BID (switched by [facility] PharmD from metoprolol for HTN management) - Eliquis 5mg BID per [facility] # HTN Good control in clinic today. - Lisinopril 40mg qday - Carvedilol 12.5mg BID (switched by [facility] PharmD from metoprolol for HTN management) # Hx of CVA No recurrent s/s of TIA/CVA - Asa 81mg qday - Atorvastatin 40mg qday # Hyperlipidemia - Atorvastatin 40mg qday # Low Vit D - Cholecalciferol 1000 units qday # Health Care Maintenance - FIT screen for colorectal cancer screening - Shingrix vaccine - RTC 1 year with labs for annual, sooner for A1C recheck if discharged from [facility] PharmD (x) Patient/Caregiver indicates readiness to learn, verbalizes understanding, agreement and satisfaction with the treatment plan. Patient/Caregiver doesn't have any further questions today. Total time spent on counseling/coordinating care, reviewing records, examining patient and documenting = 45 minutes More than 50% of this was spent counseling/coordinating care for the medical problems outlined above. Avg Risk Colorectal Cancer Screen: AVERAGE RISK colorectal cancer screening is due based on information available to this clinical reminder FOBT/FIT (Fecal Immunochemical Testing) has been ordered. See order tab for details. Diabetic Eye Screening: Patient reported normal retinal exam (No Diabetic Retinopathy) done previously by an eye child care centre director. Date: July 23, 2023 Location: [facility] Foot Check: A complete foot check was completed at this encounter. VISUAL INSPECTION: Includes inspection for skin breaks, deformity, erythema, trauma, pallor on elevation, dependent rubor, nail deformities, extensive callus and pitting edema. Visual exam results: Abnormal Observations: Thickened toenails, Other: Callus, that has split open PEDAL PULSES: Includes palpation of dorsalis and posterior tibial pulses and signs/symptoms of vascular compromise like pain, pallor, parasthesia or paralysis. Present (even if diminished) SENSORY CHECK: Includes 10 gram Monofilament (Sabine Pass-Nam) test of sensation. Intact (Greater than or equal to 80% of sites checked) Abnormal (Less than 80% of sites checked): Abnormal (decreased or absent sensation to monofilament): HIGH-RISK HIGH RISK FOOT EDUCATION: 1. Advised patient that extra depth footwear with soft molded inserts and braces may be required. 2. Advised patient not to walk barefoot. Instructed the patient to pay close attention to the style and fit of shoes. 3. Explained the importance of daily foot checks. Explained that loss of sensation leads to callouses. Callouses break down, which result in ulcers that may lead to gangrene and amputation. 4. Stressed the importance of daily foot hygiene. Warm (not hot) bathing of the feet, complete drying and thorough inspection for changes in the condition of the skin constitute daily foot care. Demonstrated how to do a thorough foot check. 5. Emphasized the use of clean, non-restrictive socks/stockings and well fitting shoes. 6. Stressed the importance of immediate follow-up of any foot injuries or ulcers. Explained that he/she should be non-weight bearing whenever there are lesions on the foot, to prevent cellular damage. Level of Understanding: Fair Patient referred to Podiatry. Avg Risk Colorectal Cancer Screen: AVERAGE RISK colorectal cancer screening is due based on information available to this clinical reminder FOBT/FIT (Fecal Immunochemical Testing) has been ordered. See order tab for details. Medication Reconciliation: Education Evaluations *Was medication education provided for NEW medications or CHANGES to medications? (including medication name, dose, route, reason for use, and potential side effects). No new medications or medication changes during this encounter. TERATOGENIC MED & CONTRACEPTION REVIEW (Optional)... ======= MEDICATION RECONCILIATION ======= Review Done: The medication list shown below was verified for accuracy and it includes all pending medications/active medications/all medications or discontinued within the last 90 days/all remote medications and non-VA medications. If a given category (i.e. remote meds) is not shown, that means that a patient doesn't have a medication(s) in that category. Allergies listed below were also reviewed/updated for accuracy. Allergies/ADR from [facility] may not display in CPRS. Use JLV MRT5 - Allergies/ADRs FACILITY ALLERGY/ADR -------- No Remote Allergy/ADR Data available for this patient [facility] NIACIN Active and Recently Outpatient Medications (including Supplies): Issue Date Status Last Fill Active Outpatient Medications Refills Expiration 1) ACCU-CHEK GUIDE (GLUCOSE) TEST STRIP ACTIVE (S) Issu:12-27-22 Qty: 50 for 90 days Sig: USE 1 STRIP Refills: 2 Last:10-01-23 TWICE A WEEK Expr:12-28-23 2) APIXABAN 5MG TAB Qty: 180 for 90 days ACTIVE Issu:07-04-23 Sig: TAKE ONE TABLET BY MOUTH EVERY 12 Refills: 3 Last:07-26-23 HOURS TO PREVENT STROKES Expr:07-04-24 3) ATORVASTATIN CALCIUM 80MG TAB Qty: 45 ACTIVE Issu:04-18-23 for 90 days Sig: TAKE ONE-HALF TABLET Refills: 3 Last:06-30-23 BY MOUTH AT BEDTIME Expr:04-18-24 4) CARVEDILOL 12.5MG TAB Qty: 180 for 90 ACTIVE Issu:10-01-23 days Sig: TAKE ONE TABLET BY MOUTH Refills: 3 Last:10-01-23 TWICE A DAY FOR BLOOD PRESSURE Expr:10-01-24 5) CYANOCOBALAMIN 1000MCG TAB Qty: 100 for ACTIVE Issu:06-21-23 90 days Sig: TAKE ONE TABLET BY MOUTH Refills: 3 Last:06-25-23 EVERY DAY FOR B12 Expr:06-21-24 6) EMPAGLIFLOZIN 25MG TAB Qty: 15 for 30 ACTIVE Issu:10-01-23 days Sig: TAKE ONE-HALF TABLET BY Refills: 3 Last:10-01-23 MOUTH EVERY MORNING FOR DIABETES Expr:10-01-24 7) GLIPIZIDE 10MG SA TAB Qty: 180 for 90 ACTIVE Issu:02-11-23 days Sig: TAKE TWO TABLETS BY MOUTH Refills: 1 Last:07-29-23 EVERY DAY FOR DIABETES Expr:02-12-24 8) LIDOCAINE 4% TOP CREAM Qty: 90 for 30 ACTIVE (S) Issu:08-05-23 days Sig: APPLY MODERATE AMOUNT Refills: 9 Last:10-17-23 TOPICALLY FOUR TIMES A DAY NEEDED Expr:08-05-24 FOR NUMBNESS/DISCOMFORT IN FEET 9) LISINOPRIL 40MG TAB Qty: 90 for 90 days ACTIVE Issu:06-07-23 Sig: TAKE ONE TABLET BY MOUTH EVERY Refills: 3 Last:07-16-23 DAY FOR BLOOD PRESSURE Expr:06-07-24 10) METFORMIN HCL 1000MG TAB Qty: 180 for ACTIVE Issu:09-23-23 90 days Sig: TAKE ONE TABLET BY MOUTH Refills: 3 Last:09-24-23 TWO TIMES A DAY Expr:09-23-24 11) PIOGLITAZONE HCL 45MG TAB Qty: 30 for ACTIVE Issu:04-25-23 30 days Sig: TAKE ONE TABLET BY MOUTH Refills: 1 Last:09-16-23 EVERY DAY FOR DIABETES Expr:04-25-24 Issue Date Status Last Fill Inactive Outpatient Medications Refills Expiration 1) APIXABAN 5MG TAB Qty: 180 for 90 days DISCONTINUED Issu:08-10-22 Sig: TAKE ONE TABLET BY MOUTH EVERY 12 Refills: 0 Last:04-27-23 HOURS TO PREVENT STROKES Expr:08-11-23 2) ATORVASTATIN CALCIUM 80MG TAB Qty: 45 DISCONTINUED Issu:06-19-22 for 90 days Sig: TAKE ONE-HALF TABLET Refills: 0 Last:04-11-23 BY MOUTH AT BEDTIME Expr:06-20-23 3) CHOLECALCIF 25MCG (D3-1,000UNIT) TAB Issu:09-11-22 Qty: 100 for 90 days Sig: TAKE ONE Refills: 1 Last:07-02-23 TABLET BY MOUTH EVERY DAY FOR VITAMIN Expr:09-12-23 D REPLACEMENT 4) GLIPIZIDE 10MG SA TAB Qty: 180 for 90 DISCONTINUED Issu:09-11-22 days Sig: TAKE TWO TABLETS BY MOUTH Refills: 2 Last:01-11-23 EVERY DAY FOR DIABETES Expr:09-12-23 5) LIDOCAINE 4% TOP CREAM Qty: 90 for 30 DISCONTINUED Issu:09-11-22 days Sig: APPLY MODERATE AMOUNT Refills: 0 Last:07-29-23 TOPICALLY FOUR TIMES A DAY NEEDED Expr:09-12-23 FOR NUMBNESS/DISCOMFORT IN FEET 6) LISINOPRIL 10MG TAB Qty: 90 for 90 days DISCONTINUED Issu:09-11-22 Sig: TAKE ONE TABLET BY MOUTH EVERY (EDIT) Last:09-28-22 DAY Refills: 3 Expr:09-12-23 7) LISINOPRIL 20MG TAB Qty: 90 for 90 days DISCONTINUED Issu:03-11-23 Sig: TAKE ONE TABLET BY MOUTH EVERY (EDIT) Last:03-13-23 DAY Refills: 3 Expr:03-11-24 8) LISINOPRIL 20MG TAB Qty: 90 for 90 days DISCONTINUED Issu:09-28-22 Sig: TAKE ONE TABLET BY MOUTH EVERY Refills: 3 Last:10-02-22 DAY Expr:09-29-23 9) MAGNESIUM OXIDE 420MG TAB Qty: 200 for Issu:09-11-22 90 days Sig: TAKE ONE TABLET BY MOUTH Refills: 0 Last:09-06-23 TWICE A DAY FOR LOW MAGNESIUM LEVEL Expr:09-12-23 10) METFORMIN HCL 1000MG TAB Qty: 180 for DISCONTINUED Issu:09-11-22 90 days Sig: TAKE ONE TABLET BY MOUTH Refills: 1 Last:06-17-23 TWO TIMES A DAY Expr:09-12-23 11) METOPROLOL SUCCINATE 100MG SA TAB Qty: Issu:09-11-22 45 for 90 days Sig: TAKE ONE-HALF Refills: 0 Last:08-11-23 TABLET BY MOUTH EVERY DAY Expr:09-12-23 12) PIOGLITAZONE HCL 45MG TAB Qty: 30 for DISCONTINUED Issu:09-11-22 30 days Sig: TAKE ONE TABLET BY MOUTH Refills: 0 Last:04-02-23 EVERY DAY FOR DIABETES Expr:09-12-23 Start Date Active Non-VA Medications Refills Expiration 1) Non-VA NON VA MED NOT LISTED ACTIVE MISCELLANEOUS Sig: NERVIVE MOUTH EVERY DAY 24 Total Medications /es/ MAGNOLIA HUGGINS Physician Mold Worker Signed: 10/01/2023 14:26 YUKO PALMA [facility]
--- OUTSIDE RECORDS SUMMARY | 2024-08-21 10:12 | XMS_ITS | Encounter Summary ---
Author Name [facility] [place] [place] Organization [facility] [place] Address [address] [place] [address] Care Team Providers Care Licensed Final Expense Agents Name Role Phone YUKO BUENROSTRO Primary Care [...] PART A Oct 21, 2020 PART A [id number] [phone] Tabitha DAVIS PATIENT Selected Encounter This section includes the information on record at [place] for the Encounter. Date/Time Encounter Type Encounter Description Reason Provider Source Oct 01, 2023 01:00 PM MTMS BY PHARM ADDL 15 MIN CLINICAL PHARMACY ICD-10-CM E11.9 Type 2 diabetes mellitus without complications GRANT ROBERTSON E Encounter Template Text not used by [place] Assessments - Encounter Diagnoses This section includes the primary and secondary diagnoses documented for the Encounter. Date/Time Primary/Secondary Diagnosis Diagnosis Name Provider Source Oct 02, 2023 10:19 AM PRIMARY Type 2 diabetes mellitus without complications GRANT ROBERTSON [facility] Oct 02, 2023 10:19 AM SECONDARY Essential (primary) hypertension GRANT ROBERTSON [facility] Plan of Treatment: Future Appointments (+ 6 months) and Future Tests (+/- 45 days) The Plan of Treatment section includes future care activities for the patient [facility] [place] [facility] This section includes future appointments and future orders which are active, pending or scheduled. Future Appointments This section includes appointments that were scheduled to occur 6 months from the date of the Encounter, up to a maximum of 20 appointments. The data comes from all [place] treatment facilities. Appointment Date/Time Appointment Type Appointme nt Facility Name Oct 28, 2023 08:30 AM [place] [facility] Oct 28, 2023 11:00 AM [facility] [place] [facility] Nov 25, 2023 10:00 AM [facility]ORY - NONE [place] [facility] Jan 07, 2024 11:00 AM AMBULATORY - NONE [facility] Jan 08, 2024 10:30 AM [facility] Jan 09, 2024 11:00 AM [facility] [place]ONE [place] [facility] Jan 22, 2024 11:15 AM AMBULATORY - NONE [facility] Jan 23, 2024 09:00 AM AMBULATORY - NONE [facility] Lab Results: +/- 30 days of the encounter This section includes the Chemistry and Hematology Lab Results on record with [place] for the patient. Radiology Reports and Pathology Reports are provided separately, in subsequent sections. Lab Results This section contains the Chemistry/Hematology Results that were resulted 30 days before or 30 daysafter the date of the Encounter. Date/Time Source Result Type Result - Unit Interpretation Reference Range Comment Oct 15, 2023 01:59 PM [facility] OCCULT BLOOD FIT X1 SCREEN Specimen Type: FECES No comment entered. Ordering Provider: YUKO PALMA Report Released Date/Time: Oct 01, 2023 02:20 PM Reporting Lab: [facility] [id number] Performing Lab: [facility] [id number] OCCULT BLOOD (FIT) #1 OF 1 Negative Negative Oct 01, 2023 12:13 PM [facility] HEMOGLOBIN A1C Specimen Type: BLOOD Comment: [...] Sep 11, 2022 02:51 PM Reporting Lab: [facility] [id number] Performing Lab: [facility] [id number] HEMOGLOBIN A1C 9.7 H 4.0-6.0 Oct 01, 2023 12:13 PM [facility] BASIC METABOLIC PANEL+MG Specimen Type: PLASMA No comment entered. Ordering Provider: YUKO PALMA Report Released Date/Time: Sep 11, 2022 02:51 PM Reporting Lab: [facility] [id number] Performing Lab: [facility] [phone] CREATININE 1.3 mg/dL H 0.7-1.2 UREA NITROGEN 20 mg/dL 8-26 GLUCOSE 278 mg/dL H 70-100 SODIUM 139 mmol/L 136-145 POTASSIUM 4.4 mmol/L 3.5-5.1 CHLORIDE 104 mmol/L 98-107 CO2 28 mmol/L 22-29 CALCIUM 9.3 mg/dL 8.4-10.2 MAGNESIUM 1.8 mg/dL 1.6-2.6 ANION GAP 7 mmol/L 5-15 .CREAT EGFR(CKD-EPI) 61 >60 Oct 01, 2023 12:13 PM [facility] AST/SGOT Specimen Type: PLASMA No comment entered. Ordering Provider: YUKO PALMA Report Released Date/Time: Sep 11, 2022 02:51 PM Reporting Lab: [facility] [id number] Performing Lab: [facility] [id number] AST/SGOT 21 U/L <34 Oct 01, 2023 12:13 PM [facility] LIPID PANEL,NON-FASTING Specimen Type: PLASMA No comment entered. Ordering Provider: YUKO PALMA Report Released Date/Time: Sep 11, 2022 02:51 PM Reporting Lab: [facility] [id number] Performing Lab: [facility] [id number] CHOLESTEROL 168 mg/dL <199 .HDL 40 mg/dL >40 LDL CALCULATION 100 mg/dL H <99 VLDL CALCULATION 28 mg/dL <29 NON HDL CHOLESTEROL 128 mg/dL <129 TRIG(NON FASTING) 139 mg/dL <149 Oct 01, 2023 12:13 PM [facility] CBC Specimen Type: BLOOD No comment entered. Ordering Provider: YUKO PALMA Report Released Date/Time: Sep 11, 2022 02:51 PM Reporting Lab: [facility] [phone] Performing Lab: [facility] [phone] WBC 8.82 10*3/uL 4.0-11.0 RBC 5.56 10*6/uL 4.6-6.2 HGB 16.9 g/dL 13.5-17.9 HCT 50.9 41-54 MCV 91.5 fL 80-100 MCH 30.4 pg 27-33 MCHC 33.2 g/dL 32.0-37.5 PLT 220 10*3/uL 150-400 MPV 9.7 fL 7.4-10.4 RDW 14.6 H 11.5-14.5 Oct 01, 2023 12:13 PM [facility] ALT/SGPT Specimen Type: PLASMA No comment entered. Ordering Provider: YUKO PALMA Report Released Date/Time: Sep 11, 2022 02:51 PM Reporting Lab: [facility] [phone] Performing Lab: [facility] [phone] ALT/SGPT 25 U/L <55 Vital Signs: All taken on the encounter date This section contains inpatient and outpatient Vital Signs collected on the date of the Encounter. Date/Time Temperature Pulse Blood Pressure Respiratory Rate SP02 Pain Height Weight Body Mass Index Source Oct 01, 2023 01:43 PM 97.8 F 17 /min 96 % 0 73 in 206.7 lb 27 [facility] Oct 01, 2023 01:27 PM 83 /min 123/85 mm[Hg] [facility] Social History: Smoking Status (Most current) and Tobacco Use (All prior to encounter date) This section includes the most current, and the historical, smoking and tobacco- related health factors from the [place] facility where the Encounter took place. Current Smoking Status This section includes the most current smoking, or tobacco-related health factor, from the [place] facility where the Encounter took place. Date/Time Current Smoking Status Comment Randall polanco Sep 30, 2023 11:58 PM VA-TOBACCO NEVER USED [facility] Tobacco Use History This section includes a history of the smoking, or tobacco-related health factors, that were collected on or before the date of the Encounter. The data comes from the [facility] where the Encounter took place. Date/Time Smoking Status/Tobacco Use Comment Sundar barriga Sep 11, 2022 02:15 PM VA-TOBACCO NEVER USED [facility] Feb 16, 2019 02:36 PM VA-TOBACCO NEVER USED [facility] Encounter Notes: All associated encounter notes This section contains the clinical notes associated to the Encounter. Date/Time Encounter Note(s) Provider Source Oct 01, 2023 01:04 PM PHARMACY NOTE: LOCAL TITLE: PHARMACOTHERAPY-CLINICAL PHARMACY NOTE STANDARD TITLE: PHARMACY NOTE DATE OF NOTE: OCT 01, 2023@13:04 ENTRY DATE: OCT 01, 2023@13:04:55 AUTHOR: ELISHA ROBERTSON COSIGNER: URGENCY: STATUS: COMPLETED Visit Type: Clinic KARIN DAVIS is a 68 YO MALE followed by [facility] for medication management. During last contact with patient, the following changes were made: - Switched metoprolol to carvedilol SUBJECTIVE: HPI: Last contacted by [facility] 08/16/23 and plan was to switch from metoprolol to carvedilol for better BP control. During Current Visit: - Hasn't started the carvedilol as never received it. Appears it wasn't ordered. - Forgot BP book- but reports that BP have bene up and down at home. Checking BP daily - Feet have been more numb. Seeing outside chiropractor and has been doing 30 minutes of TENS & vitamin B12 --> seems to be helping. No longer numb, but now is tingling. - Hasn't been checking BG Lifestyle: Diet: Breakfast: eggs + pancakes (every once in awhile will go out to eat); usually oatmeal at home Lunch: usually skips Evening meal: pb&jelly sandwich; if goes out to dinner will have [facility] Dessert: SF chocolate Beverages: mainly water, juice (1 cup per day); 1-[address] frederick Exercise: walking 3 miles/day ROS: (-) hypoglycemia symptoms (+) hyperglycemia symptoms: has been peeing more (-) chest pain (-) muscle pain/cramps (-) hypotension symptoms (-) HTN symptoms Adherence to medications: denies missed doses OBJECTIVE: ALLERGIES/ADR: NIACIN (March 02, 2019) MEDICATION RECONCILIATION: Active and Recently Outpatient Medications (excluding Supplies): Active Outpatient Medications Status 1) ACCU-CHEK GUIDE (GLUCOSE) TEST STRIP USE 1 STRIP ACTIVE TWICE A WEEK 2) APIXABAN 5MG TAB TAKE ONE TABLET BY MOUTH EVERY 12 ACTIVE HOURS TO PREVENT STROKES 3) ATORVASTATIN CALCIUM 80MG TAB TAKE ONE-HALF TABLET BY ACTIVE MOUTH AT BEDTIME 4) CYANOCOBALAMIN 1000MCG TAB TAKE ONE TABLET BY MOUTH ACTIVE EVERY DAY FOR B12 5) GLIPIZIDE 10MG SA TAB TAKE TWO TABLETS BY MOUTH EVERY Confirmed DAY FOR DIABETES 6) LIDOCAINE 4% TOP CREAM APPLY MODERATE AMOUNT ACTIVE (S) TOPICALLY FOUR TIMES A DAY NEEDED FOR NUMBNESS/DISCOMFORT IN FEET 7) LISINOPRIL 40MG TAB TAKE ONE TABLET BY MOUTH EVERY Confirmed DAY FOR BLOOD PRESSURE 8) METFORMIN HCL 1000MG TAB TAKE ONE TABLET BY MOUTH TWO See text TIMES A DAY - Has been out of for 4 days; but previously confirms use 9) PIOGLITAZONE HCL 45MG TAB TAKE ONE TABLET BY MOUTH Confirmed EVERY DAY FOR DIABETES Inactive Outpatient Medications Status 1) CHOLECALCIF 25MCG (D3-1,000UNIT) TAB TAKE ONE TABLET BY MOUTH EVERY DAY FOR VITAMIN D REPLACEMENT 2) MAGNESIUM OXIDE 420MG TAB TAKE ONE TABLET BY MOUTH TWICE A DAY FOR LOW MAGNESIUM LEVEL 3) METOPROLOL SUCCINATE 100MG SA TAB TAKE ONE-HALF Confirmed TABLET BY MOUTH EVERY DAY Active Non-VA Medications Status 1) Non-VA NON VA MED NOT LISTED MISCELLANEOUS NERVIVE ACTIVE MOUTH EVERY DAY - [place] antioxidant support (professional formula) - vasopro nitric oxide support (professional formula) Vitals: Temperature: 96.3 F [35.7 C] (09/11/2022 14:25) Blood Pressure: 154/112 (09/11/2022 14:33) Pulse: 97 (09/11/2022 14:25) Respiration: 18 (09/11/2022 14:25) Pain: 0 (09/11/2022 14:25) Height: 73 in [185.4 cm] (09/11/2022 14:25) Weight: 203.6 lb [92.35 kg] (09/11/2022 14:25) BMI: 26.9 LABS: Basic Metabolic Panel SODIUM 139 (03/05/23) POTASSIUM 4.6 (03/05/23) CREATININE 1.3 H (03/05/23) UREA NITROGEN 17 (03/05/23) GLUCOSE 83 (06/07/23) CO2 23 (03/05/23) CHLORIDE 108 H (03/05/23) EGFR (05/24) 11/22/21 @ 0941 67 CREATININE EGFR (CKD-EPI) 03/05/23 @ 1046 61 MAGNESIUM 1.4 L (03/05/23) Collection DT Specimen Test Name Result Units Ref Range 03/05/2023 10:46 PLASMA CREATININE 1.3 H mg/dL 0.7 - 1.2 10/16/2022 15:07 PLASMA CREATININE 1.2 mg/dL 0.7 - 1.2 09/11/2022 13:21 PLASMA CREATININE 1.2 mg/dL 0.7 - 1.2 03/05/2023 10:46 PLASMA .CREAT EGFR(CKD-E 61 Ref: >=60 10/16/2022 15:07 PLASMA .CREAT EGFR(CKD-E 67 Ref: >=60 09/11/2022 13:21 PLASMA .CREAT EGFR(CKD-E 67 Ref: >=60 11/22/2021 09:41 PLASMA ESTIMATED GFR(eGF >60 Ref: >=60 06/06/2021 11:13 PLASMA ESTIMATED GFR(eGF >60 Ref: >=60 12/20/2020 10:21 PLASMA ESTIMATED GFR(eGF 47 L Ref: >=60 CHOLESTEROL____ MEASURED LDL____ LDL CALCULATION____ HDL____ TRIGLYCERIDE____ Collection DT Spec HGBA1C 10/01/2023 12:14 BLOOD 9.7 H 06/07/2023 17:05 BLOOD 7.0 H 03/05/2023 10:46 BLOOD 7.5 H Collection DT Spec WBC HGB HCT PLT MCV 10/01/2023 12:14 BLOOD 8.82 16.9 50.9 220 91.5 ASSESSMENT/PLAN: #DM - Goal A1c <8% (FBG 80-160, PPG <210) d/t age per VA/DoD guidelines. A1c elevated. Not checking BG at home. Will add empagliflozin to current regimen. Previously tried a few years ago and didn't have much effect on BG, but will retry. Will also make dietary changes including decreasing soda, juice, and decreasing carbs. - Start empagliflozin 12.5mg po qday - Continue pioglitazone 4mg po qday - Continue glipizide SA 20mg po qday - Continue metformin 1000mg po BID - Start checking BG 2x/week #HTN - Goal <140/90 mmHg d/t age per JNC8 guidelines; <130/80mmHg per 2017 ACC/AHA guidelines if can tolerate without hypotension. Clinic reading at goal. Will still transition from metoprolol to carvedilol for better BP control. - Stop metoprolol - Start carvedilol 12.5mg po BID - Check & record BP daily #Disease-Specific Med Rec: Completed today #Labs: a1c in 3 months - Educated vet on indication/risks/benefits of new/changed medication. - Education provided on therapeutic nonpharmacologic management to achieve goals. - Vet advised of recent labs. - [place] verbalized understanding to all plans discussed today. Questions were answered to vet's satisfaction. Time spent: 30 minutes RTC: 1 month by phone /viridiana/ ARTURO FERRISD, BCACP CLINICAL BLOW DOWN HELPER Signed: 10/02/2023 10:20 ELISHA ROBERTSON [facility]
--- OUTSIDE RECORDS SUMMARY | 2024-08-21 10:12 | XMS_ITS | Encounter Summary ---
Author Name [facility] [place] Address [address] [place] [address] Care Team Providers Care Hand Stripper Name Role Phone YUKO BUENROSTRO Primary Care [...] PART A Oct 21, 2020 PART A [id number] [phone] Tabitha DAVIS PATIENT Selected Encounter This section includes the information on record at [place] for the Encounter. Date/Time Encounter Type Encounter Description Reason Pro vider Source May 29, 2024 11:12 AM Outpatient Encounter TELEPHONE TRIAGE IHE Encounter Template Text not used by [place] Plan of Treatment: Future Appointments (+ 6 months) and Future Tests (+/- 45 days) The Plan of Treatment section includes future care activities for the patient from all [place] treatmentfacilities. This section includes future appointments and future orders which are active, pending or scheduled. Future Appointments This section includes appointments that were scheduled to occur 6 months from the date of the Encounter, up to a maximum of 20 appointments. The data comes from all [place] treatment facilities. Appointment Date/Time Appointment Type Appointme nt Facility Name Jun 03, 2024 07:01 PM [facility] Jun 07, 2024 04:06 PM [facility] Jun 08, 2024 05:15 PM [place] [place] [facility] Jun 18, 2024 01:00 PM [facility] [place] [facility] Jun 18, 2024 02:00 PM [facility] [facility] Jun 24, 2024 07:00 AM [facility] Active, Pending, and Scheduled Orders This section includes a listing of several types of active, pending, and scheduled orders, including clinic medications orders, diagnostic test orders, procedure orders and consult orders; where the start date of the order is 45 days before the date of the Encounter or 45 days after the date of theEncounter. The data comes from all [place] treatment facilities. Test Date/Time Test Type Test Details Facility Name Jun 17, 2024 09:26 AM Consult Order COMMUNITY CARE-IV THERAPY [facility] Animal Behaviourist[facility] Jun 17, 2024 09:46 AM Consult Order INFECTIOUS DISEASE OUTPT [facility] Jun 17, 2024 10:08 AM Consult Order PODIATRY O UTPT [facility] Social History: Smoking Status (Most current) and Tobacco Use (All prior to encounter date) This section includes the most current, and the historical, smoking and tobacco- related health factors from the [place] facility where the Encounter took place. Current Smoking Status This section includes the most current smoking, or tobacco-related health factor, from the [place] facility where the Encounter took place. Date/Time Current Smoking Status Comment Randall ity Sep 30, 2023 11:58 PM VA-TOBACCO NEVER USED [facility] Tobacco Use History This section includes a history of the smoking, or tobacco-related health factors, that were collected on or before the date of the Encounter. The data comes from the [place] facility where the Encounter took place. Date/Time Smoking Status/Tobacco Use Comment F acility Sep 11, 2022 02:15 PM VA-TOBACCO NEVER USED [facility] Feb 16, 2019 02:36 PM VA-TOBACCO NEVER USED [facility] Encounter Notes: All associated encounter notes This section contains the clinical notes associated to the Encounter. Date/Time Encounter Note(s) Provider Source Jun 01, 2024 09:26 AM ADDENDUM: LOCAL TITLE: Addendum STANDARD TITLE: ADDENDUM DATE OF NOTE: JUN 01, 2024@09:26:21 ENTRY DATE: JUN 01, 2024@09:26:23 AUTHOR: YUKO BUENROSTRO COSIGNER: URGENCY: STATUS: COMPLETED REviewed records, pt has diabetic foot ulcer in setting of diabetic neuropathy x 1 month. No signs of infection on exam 05/29/24. Would recommend podiatry consult, which has been placed. [facility], will be determined by specialty care. Please inform patient. If he develops any s/s of infection (increased erythema, warmth, tenderness, drainage, f/c/ns etc) needs to return to local UC/ED immediately. /estevan BUENROSTRO Physician Certified Nurses' Aide Signed: 06/01/2024 09:27 Receipt Acknowledged By: 06/01/2024 11:25 /viridiana/ OBDULIA ORTIZ RN RN, BSN === --- Original Document --- 05/29/24 CCC: SCHEDULING ADMINISTRATION: Primary Care Call Center Primary Care Provider Call. Please contact at the following number: [phone] Other: went to [facility] in [place] for a foot wound due to his diabetes. They told him to go to [facility] on Saturday for further care. I explained to he does not have an active consult for that visit. Please call to advise/assist. This note was created by a 3 [facility] Call Center LEA/GALO. Please do not alert this grant writer by adding as a signer for future communications. Alerts are not monitored by this user, please reach out to [facility] Leadership instead if indicated. /viridiana/ ADONIS CABRAL MSA,3 [facility] Signed: 05/29/2024 11:17 Receipt Acknowledged By: 05/29/2024 14:34 /estevan ORTIZ RN RN, BSN 05/29/2024 ADDENDUM STATUS: COMPLETED Financial Center Manager called and spoke to vet. Shared that right now, [place] not [place] clinic appt. Asked if he knows if his medicare would. He is not sure. He is agreeable to cancel the wound clinic appt for Saturday and see if PCP can place consult for wound clinic in the community. /viridiana/ OBDULIA ORTIZ RN RN, BSN Signed: 05/29/2024 14:36 Receipt Acknowledged By: 06/01/2024 09:26 /viridiana/ YUKO BUENROSTRO Physician Certified Nurses' Aide 06/01/2024 ADDENDUM STATUS: UNSIGNED You may not VIEW this UNSIGNED Addendum. YUKO BUENROSTRO [facility] May 29, 2024 02:35 PM ADDENDUM: LOCAL TITLE: Addendum STANDARD TITLE: ADDENDUM DATE OF NOTE: MAY 29, 2024@14:35:02 ENTRY DATE: MAY 29, 2024@14:35:04 AUTHOR: OBDULIA ORTIZ EXP COSIGNER: URGENCY: STATUS: COMPLETED Financial Center Manager called and spoke to vet. Shared that right now, [place] not [place] clinic appt. Asked if he knows if his medicare would. He is not sure. He is agreeable to cancel the wound clinic appt for Saturday and see if PCP can place consult for wound clinic in the community. /viridiana/ OBDULIA ORTIZ RN RN, BSN Signed: 05/29/2024 14:36 Receipt Acknowledged By: 06/01/2024 09:26 /viridiana/ YUKO BUENROSTRO Physician Certified Nurses' Aide === --- Original Document --- 05/29/24 CCC: SCHEDULING ADMINISTRATION: Primary Care Call Center Primary Care Provider Call. Please contact at the following number: [phone] Other: Laurel went to [facility] in [place] for a foot wound due to his diabetes. They told him to go to [facility] on Saturday for further care. I explained to he does not have an active consult for that visit. Please call to advise/assist. This note was created by a 3 [facility] Call Center AMSA/GALO. Please do not alert this grant writer by adding as a signer for future communications. Alerts are not monitored by this user, please reach out to [facility] Leadership instead if indicated. /viridiana/ ADONIS CABRAL MSA,3 [facility] Signed: 05/29/2024 11:17 Receipt Acknowledged By: 05/29/2024 14:34 /viridiana/ OBDULIA ORTIZ RN RN, BSN 06/01/2024 ADDENDUM STATUS: UNSIGNED You may not VIEW this UNSIGNED Addendum. OBDULIA ORTIZ [facility] May 29, 2024 11:12 AM ADMINISTRATIVE NOT E: LOCAL TITLE: CCC: SCHEDULING ADMINISTRATION STANDARD TITLE: ADMINISTRATIVE NOTE DATE OF NOTE: MAY 29, 2024@11:12 ENTRY DATE: MAY 29, 2024@11:13:04 AUTHOR: ADONIS CABRAL COSIGNER: URGENCY: STATUS: COMPLETED CCC: SCHEDULING ADMINISTRATION Has ADDENDA Primary Care Call Center Primary Care Provider Call. Please contact at the following number: [phone] Other: went to [facility] in [place] for a foot wound due to his diabetes. They told him to go to [facility] on Saturday for further care. I explained to he does not have an active consult for that visit. Please call to advise/assist. This note was created by a 3 [facility] Call Center BHAVANIA/GALO. Please do not alert this grant writer by adding as a signer for future communications. Alerts are not monitored by this user, please reach out to [facility] Leadership instead if indicated. /viridiana/ ADONIS CABRAL MSA,3 [facility] Signed: 05/29/2024 11:17 Receipt Acknowledged By: 05/29/2024 14:34 /estevan ORTIZ RN RN, BSN 05/29/2024 ADDENDUM STATUS: COMPLETED Financial Center Manager called and spoke to vet. Shared that right now, [place] appt. Asked if he knows if his medicare would. He is not sure. He is agreeable to cancel the wound clinic appt for Saturday and see if PCP can place consult for wound clinic in the community. /estevan ORTIZ RN RN, BSN Signed: 05/29/2024 14:36 Receipt Acknowledged By: 06/01/2024 09:26 /estevan BUENROSTRO Physician Certified Nurses' Aide 06/01/2024 ADDENDUM STATUS: COMPLETED REviewed records, pt has diabetic foot ulcer in setting of diabetic neuropathy x 1 month. No signs of infection on exam 05/29/24. Would recommend podiatry consult, which has been placed. Unable to directly refer to [facility], will be determined by specialty care. Please inform patient. If he develops any s/s of infection (increased erythema, warmth, tenderness, drainage, f/c/ns etc) needs to return to local UC/ED immediately. /estevan BUENROSTRO Physician Certified Nurses' Aide Signed: 06/01/2024 09:27 Receipt Acknowledged By: 06/01/2024 11:25 /estevan ORTIZ RN RN, BSN 06/01/2024 ADDENDUM STATUS: COMPLETED Looks like podiatry is already working on [facility] for this. /estevan ORTIZ RN RN, BSN Signed: 06/01/2024 11:25 06/01/2024 ADDENDUM STATUS: COMPLETED Financial Center Manager called and informed vet that consult is being processed, but go to ER with acute changes. He is understanding. /estevan ORTIZ RN RN, BSN Signed: 06/01/2024 11:30 ADONIS CABRAL [facility]
--- OUTSIDE RECORDS SUMMARY | 2024-08-21 10:12 | XMS_ITS ---
ME NUTRITION/DIETETICS-INDIVIDUAL [facility] Encounter Summary Created on: June 30, 2024 VINCENTSILVAKARIN OSMAN OSBALDO : 1955 Sex: Male Author Name [facility] Organization [facility] Address [address] [place] [id number] Care Team Providers Care Property Developer Name Role Phone YUKO BUENROSTRO Primary Care [...] PART A Oct 21, 2020 PART A [id number] [phone] Tabitha DAVIS PATIENT Selected Encounter This section includes the information on record at ME for the Encounter. Date/Time Encounter Type Encounter Description Reason Pro vider Source Apr 07, 2024 01:00 PM Outpatient Encounter NUTRITION/DIETETICS-I NDIVIDUAL [facility] Encounter Template Text not used by ME Plan of Treatment: Future Appointments (+ 6 months) and Future Tests (+/- 45 days) The Plan of Treatment section includes future care activities for the patient from all [facility] treatmentfacilities. This section includes future appointments and future orders which are active, pending or scheduled. Future Appointments This section includes appointments that were scheduled to occur 6 months from the date of the Encounter, up to a maximum of 20 appointments. The data comes from all [facility] treatment facilities. Appointment Date/Time Appointment Type Appointme nt Facility Name Jun 03, 2024 07:01 PM AMBULATORY - NONE [facility] Jun 07, 2024 04:06 PM AM[facility]ULATORY - NONE [facility] Jun 08, 2024 05:15 PM [facility] Jun 18, 2024 01:00 PM [facility] Jun 18, 2024 02:00 PM [facility] Jun 24, 2024 07:00 AM AMBULATORY - NONE [facility] Social History: Smoking Status (Most current) and Tobacco Use (All prior to encounter date) This section includes the most current, and the historical, smoking and tobacco- related health factors from the [facility] facility where the Encounter took place. Current Smoking Status This section includes the most current smoking, or tobacco-related health factor, from the [facility] facility where the Encounter took place. Date/Time Current Smoking Status Comment Facil ity Sep 30, 2023 11:58 PM VA-TOBACCO NEVER USED [facility] Tobacco Use History This section includes a history of the smoking, or tobacco-related health factors, that were collected on or before the date of the Encounter. The data comes from the [facility] facility where the Encounter took place. Date/Time Smoking Status/Tobacco Use Comment F acility Sep 11, 2022 02:15 PM VA-TOBACCO NEVER USED [facility] Feb 16, 2019 02:36 PM VA-TOBACCO NEVER USED [facility] Encounter Notes: All associated encounter notes This section contains the clinical notes associated to the Encounter. Date/Time Encounter Note(s) Provider Source Apr 07, 2024 01:13 PM NO SHOW NOTE: LOCAL TITLE: NO SHOW/CANCELLATION CLINIC NOTE STANDARD TITLE: NO SHOW NOTE DATE OF NOTE: APR 07, 2024@13:13 ENTRY DATE: APR 07, 2024@13:13:34 AUTHOR: BOB WOODARD EXP COSIGNER: URGENCY: STATUS: COMPLETED SUBJECT: NUTRITION [facility] not seen for scheduled appointment due to: NO SHOW Appointment Rescheduled: NO Vet did not present to [facility] room at time of scheduled appt. Pt called to f/u re: nutrition appointment x2, no answer. Unable to leave VM due to: - VM box full If contacts the clinic or call center to reschedule, please schedule in one of the following clinics per [facility] preference: By phone: [facility] TELE [facility]OB [facility] DIETITIAN TELE EVENING Face to face: [facility]ETIT[facility] PACT 4D BOB [facility]: [facility] HOME NUTRITION BOB /viridiana/ BOB WOODARD [address] 4D PACT DIETITIAN Signed: 04/07/2024 18:13 BOB WOODARD [facility]
--- OUTSIDE RECORDS SUMMARY | 2024-08-21 10:12 | XMS_ITS | Continuity of Care Document ---
Author Name [facility] Organization [facility] Care Team Providers Care Chief Of Pediatric Urology Name Role Phone [facility] Unavailable Unavailable Problems Combined list of problems from Department of [facility] and [facility] facilities. It does not include entries that were removed or entered in error. Problem Status Onset Date Problem Type Date of Resolution Comments Source Atrial fibrillation Active Condition [facility] Cerebrovascular accident Active Condition March 02, 2019 Entered By: YUKO PALMA Comment: 05/2018 [facility] Deficiency of vitamin D3 Active Condition [facility] Diabetes Mellitus Type 2 ([facility] [id number]) Active Condition [facility] Diabetic neuropathy Active Condition 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 [facility] Diagnosis: ICD-10-CM E11.9 Type 2 diabetes mellitus without complications Active Diagnosis [facility] Diagnosis: ICD-10-CM E11.65 Type 2 diabetes mellitus with hyperglycemia Active Diagnosis [facility] Diagnosis: ICD-10-CM I63.9 Cerebral infarction, unspecified Active Diagnosis [facility] Diagnosis: ICD-10-CM I10 Essential (primary) hypertension Active Diagnosis [facility] Diagnosis: ICD-10-CM Z23 Encounter for immunization Active Diagnosis [facility] Diagnosis: ICD-10-CM E11.42 Type 2 diabetes mellitus with diabetic polyneuropathy Active Diagnosis [facility] Medications Combined list of outpatient medications from [facility] and [facility] facilities.Medications provided include 1) outpatient medications from the last 15 months, and 2) patient-reported medications. Medication Details Route Status Patient Instructions Prescription Expires Prescription Number Last Dispense Date Ordering Provider Order Date Order Qty Source APIXABAN 5MG TAB TAKE ONE TABLET BY MOUTH EVERY 12 HOURS TO PREVENT STROKES ORAL ACTIVE 07/17/2025 [id number] JUSTEN HENRIQUEZ 2023 180 [facility] APIXABAN 5MG TAB TAKE ONE TABLET BY MOUTH EVERY 12 HOURS TO PREVENT STROKES ORAL DISCONT INUED 07/04/2024 [id number] 4 JUSTEN HENRIQUEZ 2022 180 [facility] ASPIRIN 81MG TAB,EC TAKE ONE TABLET BY MOUTH EVERY DAY ORAL ACTIVE 10/01/2024 [id number] 4 Hang BUENROSTRO 2022 120 [facility] ATORVASTATI N CA 80MG TAB TAKE ONE-HALF TABLET BY MOUTH AT BEDTIME ORAL ACTIVE 04/28/2025 [id number] 4 RACQUEL SANTOYO 2023 45 [facility] ATORVASTATI N CA 80MG TAB TAKE ONE-HALF TABLET BY MOUTH AT BEDTIME ORAL DISCONT INUED 04/18/2024 [id number] 4 RACQUEL SANTOYO 2022 45 [facility] CARBAMIDE PEROXIDE 6.5%/GLYCER IN SOLN,OTIC INSTILL 5-10 DROPS IN EAR(S) TWICE A DAY FOR EAR WAX REMOVAL KEEP DROPS IN EAR CANAL FOR SEVERAL MINUTES. MAY RINSE EAR WITH WARM WATER. KEEP DROPS IN EAR CANAL FOR SEVERAL MINUTES. MAY RINSE EAR WITH WARM WATER. AURICU LAR (OTIC) 08/14/2024 [id number] 4 Hang BUENROSTRO 2023 15 [facility] CARVEDILOL 12.5MG TAB TAKE ONE TABLET BY MOUTH TWICE A DAY FOR BLOOD PRESSURE ORAL ACTIVE 10/01/2024 [id number] 4 ELISHA ROBERTSON 2022 180 [facility] CEFADROXIL 500MG CAP TAKE ONE CAPSULE BY MOUTH TWICE A DAY FOR 10 DAYS ORAL ACTIVE 09/02/2024 [id number] VERO BURNETT C 2023 20 [facility] CHOLECALCIF LAURIE 25MCG (1,000UNIT) TAB TAKE ONE TABLET BY MOUTH EVERY DAY FOR VITAMIN D REPLACEM ENT ORAL ACTIVE 10/01/2024 [id number] 4 PORTERHang CARMEN LANTIGUAARYAN 2022 100 [facility] CHOLECALCIF LAURIE 25MCG (1,000UNIT) TAB TAKE ONE TABLET BY MOUTH EVERY DAY FOR VITAMIN D REPLACEM ENT ORAL DISCONT INUED 09/12/2023 [id number] ROMARIO PALMA ARYAN 2021 100 [facility] CYANOCOBALA MIN 1000MCG TAB TAKE ONE TABLET BY MOUTH EVERY DAY FOR B12 ORAL 06/21/2024 [id number] 4 JOSE LUIS DEAN 2022 100 [facility] EMPAGLIFLOZ IN 25MG TAB TAKE ONE TABLET BY MOUTH EVERY MORNING FOR DIABETES ORAL ACTIVE 10/28/2024 [id number] 4 ELISHA ROBERTSON 2023 90 [facility] EMPAGLIFLOZ IN 25MG TAB TAKE ONE-HALF TABLET BY MOUTH EVERY MORNING FOR DIABETES ORAL DISCONT INUED (EDIT) 10/01/2024 [id number] ELISHA ROBERTSON 2022 15 [facility] ERTAPENEM INJ,PWDR INJECT 1 GRAM IV EVERY DAY INTRAV ENOUS ACTIVE PORTERHang CARMEN NGBETH 2023 [facility] GLIPIZIDE 10MG TAB,SA TAKE TWO TABLETS BY MOUTH EVERY DAY FOR DIABETES ORAL ACTIVE 01/28/2025 [id number] 4 PORTERHang CARMEN BAEZA 2023 180 [facility] GLIPIZIDE 10MG TAB,SA TAKE TWO TABLETS BY MOUTH EVERY DAY FOR DIABETES ORAL DISCONT INUED 02/12/2024 [id number] PORTERHang CARMEN SAUNDERSTH 2022 180 [facility] LIDOCAINE 4% CREAM,TOP APPLY MODERATE AMOUNT TOPICALL Y FOUR TIMES A DAY NEEDED FOR NUMBNESS /DISCOMF ORT IN FEET TOPICA L DISCONT INUED 09/12/2023 [id number] ROMARIO PALMA AN ARYAN 2021 90 [facility] LIDOCAINE 4% CREAM,TOP APPLY MODERATE AMOUNT TOPICALL Y FOUR TIMES A DAY NEEDED FOR NUMBNESS /DISCOMF ORT IN FEET TOPICA L 08/05/2024 [id number] 4 Hang BUENROSTRO ARYAN 2022 90 [facility] LISINOPRIL 20MG TAB TAKE ONE TABLET BY MOUTH EVERY DAY FOR BLOOD PRESSURE ORAL HOLD 01/08/2025 [id number] ELISHA ROBERTSON 2023 90 [facility] LISINOPRIL 40MG TAB TAKE ONE TABLET BY MOUTH EVERY DAY FOR BLOOD PRESSURE ORAL DISCONT INUED (EDIT) 06/07/2024 [id number] 4 LUISA CALERO E 2022 90 [facility] MAGNESIUM OXIDE 420MG TAB TAKE ONE TABLET BY MOUTH TWICE A DAY FOR LOW MAGNESIU M LEVEL ORAL ACTIVE 10/01/2024 [id number] 4 Hang BUENROSTRO CARMEN ARYAN 2023 200 [facility] MAGNESIUM OXIDE 420MG TAB TAKE ONE TABLET BY MOUTH TWICE A DAY FOR LOW MAGNESIU M LEVEL ORAL DISCONT INUED 09/12/2023 [id number] 3 ROMARIO PALMA AN ARYAN 2021 200 [facility] METFORMIN HCL 1000MG TAB TAKE ONE TABLET BY MOUTH TWO TIMES A DAY ORAL ACTIVE 09/23/2024 [id number] 4 Hang BUENROSTRO ARYAN 2022 180 [facility] METFORMIN HCL 1000MG TAB TAKE ONE TABLET BY MOUTH TWO TIMES A DAY ORAL DISCONT INUED 09/12/2023 [id number] 3 ROMARIO PALMA AN ARYAN 2022 180 [facility] METOPROLOL SUCCINATE 100MG TAB,SA TAKE ONE-HALF TABLET BY MOUTH EVERY DAY ORAL 09/12/2023 [id number] 3 ROMARIO PALMA AN ARYAN 2022 45 [facility] NON VA MED NOT LISTED MISCELLANEO US USE NERVIVE MOUTH EVERY DAY ORAL ACTIVE LUISA CALERO VANI E 2022 [facility] PIOGLITAZON E HCL 45MG TAB TAKE ONE TABLET BY MOUTH EVERY DAY FOR DIABETES ORAL ACTIVE 06/25/2025 [id number] 4 Hang BUENROSTRO ARYAN 2023 30 [facility] PIOGLITAZON E HCL 45MG TAB TAKE ONE TABLET BY MOUTH EVERY DAY FOR DIABETES ORAL DISCONT INUED 10/28/2024 [id number] 4 Hang BUENROSTRO ARYAN 2023 30 [facility] PIOGLITAZON E HCL 45MG TAB TAKE ONE TABLET BY MOUTH EVERY DAY FOR DIABETES ORAL DISCONT INUED 04/25/2024 [id number] 4 ROMARIO PALMA AN ARYAN 2022 30 [facility] Allergies, Adverse Reactions, Alerts Combined list of allergies from Department of Defense and Veterans Affairs facilities. It does not include entries that were removed or entered in error. Substance Category Reaction Severity Reaction type Status Date Reported Comments Source NIACIN Propensity to adverse reactions to drug (finding) [place] active 9 [facility] Immunizations Combined list of available immunizations from the Department of Defense and Veterans Affairs facilities. Immunization Series Date Given Administered By Site Reaction Lot Number CVX Code Drug Frame Welder Cargo Utility Trailers Status Comments Source COVID-19 (Liftago), MRNA, LNP-S, PF, KAYLEE-SUCROSE, 30 MCG/0.3 ML (AGES 12+ YEARS) 1 2022 NALLELY MASSEY RIGHT DELTO ID [id number] 309 complet ed [facility] INFLUENZA, HIGH-DOSE, QUADRIVALENT 2022 PATRICA MANNING RIGHT DELTO ID [id number] A 197 complet ed [facility] COVID-19 (PFIZER), MRNA, LNP-S, BIVALENT BOOSTER, PF, 30 MCG/0.3 ML DOSE 1 2021 ALONZO BROOKS RIGHT DELTO ID [id number] 300 complet ed [place] ([facility]) INFLUENZA VACCINE, QUADRIVALENT, ADJUVANTED 2021 205 complet ed [facility] PNEUMOCOCCAL CONJUGATE PCV20, POLYSACCHARID E [id number] CONJUGATE, ADJUVANT, PF 2021 216 complet ed [facility] COVID-19 (PFIZER), MRNA, LNP-S, PF, 30 MCG/0.3 ML DOSE, KAYLEE-SUCROSE (AGES 12+ YEARS) 4 2021 217 complet ed PFR; [id number]; 2 [place] ([facility]) COVID-19 (PFIZER), MRNA, LNP-S, PF, 30 MCG/0.3 ML DOSE, KAYLEE-SUCROSE (AGES 12+ YEARS) 3 2021 217 complet ed PFR; [id number]; 2 [place] ([facility]) COVID-19 (PFIZER), MRNA, LNP-S, PF, 30 MCG/0.3 ML DOSE 2 2020 208 complet ed PFR; [id number]; 1 [facility] COVID-19 (PFIZER), MRNA, LNP-S, PF, 30 MCG/0.3 ML DOSE 1 2020 208 complet ed PFR; [id number]; 1 [facility] INFLUENZA, INJECTABLE, QUADRIVALENT, PRESERVATIVE FREE 2019 150 complet ed [facility] INFLUENZA, INJECTABLE, QUADRIVALENT, PRESERVATIVE FREE 2018 150 complet ed [facility] TDAP 2018 115 complet ed [facility] TD (ADULT), 5 LF TETANUS TOXOID, PRESERVATIVE FREE, ADSORBED 2018 113 complet ed [facility] ZOSTER RECOMBINANT 2018 187 complet ed [facility] INFLUENZA, HIGH DOSE SEASONAL 2014 135 complet ed [facility] INFLUENZA, INJECTABLE, QUADRIVALENT, PRESERVATIVE FREE 2013 150 complet ed [facility] INFLUENZA, SEASONAL, INJECTABLE, PRESERVATIVE FREE 2011 140 complet ed [facility] PNEUMOCOCCAL POLYSACCHARID E [id number] 2010 33 complet ed [facility] TDAP 2007 115 complet ed [facility] TD (ADULT), 2 LF TETANUS TOXOID, PRESERVATIVE FREE, ADSORBED 2002 09 complet ed [facility] Results Combined list of recent chemistry, hematology and other laboratory results from Department of Defense and Veterans Affairs, ranging from 15 months to all on record, depending upon the facility. Order Name Results Value Reference Range Date Interpretation Specimen Comments Source BASIC METABOLI C PANEL+MG CREATININE [MASS/VOLU ME] IN SERUM OR PLASMA 1.5 mg/dL 0.7 - 1.2 01/21 H Specimen Type: PLASMA No comment entered. Ordering Provider: LEVON ROBERTSON Report Released Date/Time: Jan 08, 2024 11:48 AM Reporting Lab: [facility] [address] Performing Lab: [facility] [address] [place] [facility] BASIC METABOLI C PANEL+MG UREA NITROGEN [MASS/VOLU ME] IN SERUM OR PLASMA 30 mg/dL 8 - 26 01/21 H Specimen Type: PLASMA No comment entered. Ordering Provider: LEVON ROBERTSON Report Released Date/Time: Jan 08, 2024 11:48 AM Reporting Lab: [facility] [address] Performing Lab: [facility] [address] [place] [facility] BASIC METABOLI C PANEL+MG GLUCOSE [MASS/VOLU ME] IN SERUM OR PLASMA 224 mg/dL 70 - 100 01/21 H Specimen Type: PLASMA No comment entered. Ordering Provider: LEVON ROBERTSON Report Released Date/Time: Jan 08, 2024 11:48 AM Reporting Lab: [facility] [phone] Performing Lab: [facility] [address] [place] [facility] BASIC METABOLI C PANEL+MG SODIUM [MOLES/VOL UME] IN SERUM OR PLASMA 139 mmol/L 136 - 145 01/21 Specimen Type: PLASMA No comment entered. Ordering Provider: LEVON ROBERTSON Report Released Date/Time: Jan 08, 2024 11:48 AM Reporting Lab: [facility] [address] Performing Lab: [facility] [address] [place] [facility] BASIC METABOLI C PANEL+MG POTASSIUM [MOLES/VOL UME] IN SERUM OR PLASMA 4.5 mmol/L 3.5 - 5.1 01/21 Specimen Type: PLASMA No comment entered. Ordering Provider: LEVON ROBERTSON Report Released Date/Time: Jan 08, 2024 11:48 AM Reporting Lab: [facility] [phone] Performing Lab: [facility] [address] [place] [facility] BASIC METABOLI C PANEL+MG CHLORIDE [MOLES/VOL UME] IN SERUM OR PLASMA 106 mmol/L 98 - 107 01/21 Specimen Type: PLASMA No comment entered. Ordering Provider: LEVON ROBERTSON Report Released Date/Time: Jan 08, 2024 11:48 AM Reporting Lab: [facility] [address] Performing Lab: [facility] [address] [place] [facility] BASIC METABOLI C PANEL+MG CARBON DIOXIDE, TOTAL [MOLES/VOL UME] IN SERUM OR PLASMA 25 mmol/L 22 - 29 01/21 Specimen Type: PLASMA No comment entered. Ordering Provider: LEVON ROBERTSON Report Released Date/Time: Jan 08, 2024 11:48 AM Reporting Lab: [facility] [address] Performing Lab: [facility] [address] [place] [facility] BASIC METABOLI C PANEL+MG CALCIUM [MASS/VOLU ME] IN SERUM OR PLASMA 9.5 mg/dL 8.4 - 10.2 01/21 Specimen Type: PLASMA No comment entered. Ordering Provider: LEVON ROBERTSON Report Released Date/Time: Jan 08, 2024 11:48 AM Reporting Lab: [facility] [address] Performing Lab: [facility] [address] [place] [facility] BASIC METABOLI C PANEL+MG MAGNESIUM [MASS/VOLU ME] IN SERUM OR PLASMA 1.8 mg/dL 1.6 - 2.6 01/21 Specimen Type: PLASMA No comment entered. Ordering Provider: LEVON ROBERTSON Report Released Date/Time: Jan 08, 2024 11:48 AM Reporting Lab: [facility] [address] Performing Lab: [facility] [address] [place] [facility] BASIC METABOLI C PANEL+MG ANION GAP IN SERUM OR PLASMA 8 mmol/L 5 - 15 01/21 Specimen Type: PLASMA No comment entered. Ordering Provider: LEVON ROBERTSON Report Released Date/Time: Jan 08, 2024 11:48 AM Reporting Lab: [facility] [address] Performing Lab: [facility] [address] [place] [facility] BASIC METABOLI C PANEL+MG GLOMERULAR FILTRATION RATE/1.73 SQ M.PREDICTE D [VOLUME RATE/AREA] IN SERUM, PLASMA OR BLOOD BY CREATININE -BASED FORMULA (CKD-EPI 2020) 51 60 01/21 L Specimen Type: PLASMA No comment entered. Ordering Provider: LEVON ROBERTSON Report Released Date/Time: Jan 08, 2024 11:48 AM Reporting Lab: [facility] [address] Performing Lab: [facility] [address] [place] [facility] LIPID PANEL,NO N-FASTIN G CHOLESTERO L [MASS/VOLU ME] IN SERUM OR PLASMA 148 mg/dL <199 - 199 01/06 Specimen Type: PLASMA No comment entered. Ordering Provider: ROMARIO BUENROSTRO Report Released Date/Time: Sep 11, 2022 02:51 PM Reporting Lab: [facility] [address] Performing Lab: [facility] [address] [place] [facility] LIPID PANEL,NO N-FASTIN G CHOLESTERO L IN HDL [MASS/VOLU ME] IN SERUM OR PLASMA 37 mg/dL 40 01/06 L Specimen Type: PLASMA No comment entered. Ordering Provider: ROMARIO BUENROSTRO Report Released Date/Time: Sep 11, 2022 02:51 PM Reporting Lab: [facility] [address] Performing Lab: [facility] [address] [place] [facility] LIPID PANEL,NO N-FASTIN G CHOLESTERO L IN LDL [MASS/VOLU ME] IN SERUM OR PLASMA BY CALCULATIO N 81 mg/dL <99 - 99 01/06 Specimen Type: PLASMA No comment entered. Ordering Provider: ROMARIO BUENROSTRO Report Released Date/Time: Sep 11, 2022 02:51 PM Reporting Lab: [facility] [address] Performing Lab: [facility] [address] [place] [facility] LIPID PANEL,NO N-FASTIN G CHOLESTERO L IN VLDL [MASS/VOLU ME] IN SERUM OR PLASMA BY CALCULATIO N 30 mg/dL <29 - 29 01/06 H Specimen Type: PLASMA No comment entered. Ordering Provider: ROMARIO BUENROSTRO Report Released Date/Time: Sep 11, 2022 02:51 PM Reporting Lab: [facility] [phone] Performing Lab: [facility] [address] [place] [facility] LIPID PANEL,NO N-FASTIN G CHOLESTERO L NON HDL [MASS/VOLU ME] IN SERUM OR PLASMA 111 mg/dL <129 - 129 01/06 Specimen Type: PLASMA No comment entered. Ordering Provider: ROMARIO BUENROSTRO Report Released Date/Time: Sep 11, 2022 02:51 PM Reporting Lab: [facility] [address] Performing Lab: [facility] [address] [place] [facility] LIPID PANEL,NO N-FASTIN G TRIGLYCERI DE [MASS/VOLU ME] IN SERUM OR PLASMA 149 mg/dL <149 - 149 01/06 Specimen Type: PLASMA No comment entered. Ordering Provider: ROMARIO BUENROSTRO Report Released Date/Time: Sep 11, 2022 02:51 PM Reporting Lab: [facility] [address] Performing Lab: [facility] [address] [place] [facility] HEMOGLOB IN A1C HEMOGLOBIN A1C/HEMOGL OBIN.TOTAL IN BLOOD 7.9 4.0 - 6.0 01/06 H Specimen Type: BLOOD Comment: Values obtained from A1C measurement s can vary. For typical A1C assays, a reported value of 7.0 could actually be between 6.7 and 7.3 if measured by a reference method. A reported value of 9.0 could actually be between 8.7 and 9.3. Ref: http://www. ngsp.org/[place] Pdata.asp Ordering Provider: LEVON ROBERTSON Report Released Date/Time: Nov 25, 2023 10:30 AM Reporting Lab: [facility] [address] Performing Lab: [facility] [address] [facility] COMPREHE NSIVE METABOLI C PANEL+MG CREATININE [MASS/VOLU ME] IN SERUM OR PLASMA 1.6 mg/dL 0.7 - 1.2 01/06 H Specimen Type: PLASMA No comment entered. Ordering Provider: LEVON ROBERTSON Report Released Date/Time: Nov 25, 2023 10:30 AM Reporting Lab: [facility] [address] Performing Lab: [facility] [address] [place] [facility] COMPREHE NSIVE METABOLI C PANEL+MG UREA NITROGEN [MASS/VOLU ME] IN SERUM OR PLASMA 27 mg/dL 8 - 26 01/06 H Specimen Type: PLASMA No comment entered. Ordering Provider: LEVON ROBERTSON Report Released Date/Time: Nov 25, 2023 10:30 AM Reporting Lab: [facility] [address] Performing Lab: [facility] [address] [place] [facility] COMPREHE NSIVE METABOLI C PANEL+MG GLUCOSE [MASS/VOLU ME] IN SERUM OR PLASMA 169 mg/dL 70 - 100 01/06 H Specimen Type: PLASMA No comment entered. Ordering Provider: LEVON ROBERTSON Report Released Date/Time: Nov 25, 2023 10:30 AM Reporting Lab: [facility] [address] Performing Lab: [facility] [address] [place] [facility] COMPREHE NSIVE METABOLI C PANEL+MG SODIUM [MOLES/VOL UME] IN SERUM OR PLASMA 141 mmol/L 136 - 145 01/06 Specimen Type: PLASMA No comment entered. Ordering Provider: LEVON ROBERTSON Report Released Date/Time: Nov 25, 2023 10:30 AM Reporting Lab: [facility] [address] Performing Lab: [facility] [address] [place] [facility] COMPREHE NSIVE METABOLI C PANEL+MG POTASSIUM [MOLES/VOL UME] IN SERUM OR PLASMA 4.3 mmol/L 3.5 - 5.1 01/06 Specimen Type: PLASMA No comment entered. Ordering Provider: LEVON ROBERTSON Report Released Date/Time: Nov 25, 2023 10:30 AM Reporting Lab: [facility] [address] Performing Lab: [facility] [address] [place] [facility] COMPREHE NSIVE METABOLI C PANEL+MG CHLORIDE [MOLES/VOL UME] IN SERUM OR PLASMA 107 mmol/L 98 - 107 01/06 Specimen Type: PLASMA No comment entered. Ordering Provider: LEVON ROBERTSON Report Released Date/Time: Nov 25, 2023 10:30 AM Reporting Lab: [facility] [address] Performing Lab: [facility] [address] [place] [facility] COMPREHE NSIVE METABOLI C PANEL+MG CARBON DIOXIDE, TOTAL [MOLES/VOL UME] IN SERUM OR PLASMA 25 mmol/L 22 - 29 01/06 Specimen Type: PLASMA No comment entered. Ordering Provider: LEVON ROBERTSON Report Released Date/Time: Nov 25, 2023 10:30 AM Reporting Lab: [facility] [address] Performing Lab: [facility] [address] [place] [facility] COMPREHE NSIVE METABOLI C PANEL+MG CALCIUM [MASS/VOLU ME] IN SERUM OR PLASMA 9.4 mg/dL 8.4 - 10.2 01/06 Specimen Type: PLASMA No comment entered. Ordering Provider: LEVON ROBERTSON Report Released Date/Time: Nov 25, 2023 10:30 AM Reporting Lab: [facility] [address] Performing Lab: [facility] [address] [place] [facility] COMPREHE NSIVE METABOLI C PANEL+MG PROTEIN [MASS/VOLU ME] IN SERUM OR PLASMA 6.7 g/dL 6.0 - 8.3 01/06 Specimen Type: PLASMA No comment entered. Ordering Provider: LEVON ROBERTSON Report Released Date/Time: Nov 25, 2023 10:30 AM Reporting Lab: [facility] [address] Performing Lab: [facility] [address] [place] [facility] COMPREHE NSIVE METABOLI C PANEL+MG ALBUMIN [MASS/VOLU ME] IN SERUM OR PLASMA 3.8 g/dL 3.5 - 5.2 01/06 Specimen Type: PLASMA No comment entered. Ordering Provider: LEVON ROBERTSON Report Released Date/Time: Nov 25, 2023 10:30 AM Reporting Lab: [facility] [address] Performing Lab: [facility] [address] [place] [facility] COMPREHE NSIVE METABOLI C PANEL+MG BILIRUBIN. TOTAL [MASS/VOLU ME] IN SERUM OR PLASMA 0.8 mg/dL 0.2 - 1.2 01/06 Specimen Type: PLASMA No comment entered. Ordering Provider: LEVON ROBERTSON Report Released Date/Time: Nov 25, 2023 10:30 AM Reporting Lab: [facility] [address] Performing Lab: [facility] [address] [place] [facility] COMPREHE NSIVE METABOLI C PANEL+MG MAGNESIUM [MASS/VOLU ME] IN SERUM OR PLASMA 2.1 mg/dL 1.6 - 2.6 01/06 Specimen Type: PLASMA No comment entered. Ordering Provider: LEVON ROBERTSON Report Released Date/Time: Nov 25, 2023 10:30 AM Reporting Lab: [facility] [address] Performing Lab: [facility] [address] [place] [facility] COMPREHE NSIVE METABOLI C PANEL+MG ANION GAP IN SERUM OR PLASMA 9 mmol/L 5 - 15 01/06 Specimen Type: PLASMA No comment entered. Ordering Provider: LEVON ROBERTSON Report Released Date/Time: Nov 25, 2023 10:30 AM Reporting Lab: [facility] [address] Performing Lab: [facility] [address] [place] [facility] COMPREHE NSIVE METABOLI C PANEL+MG ALKALINE PHOSPHATAS E [ENZYMATIC ACTIVITY/V OLUME] IN SERUM OR PLASMA 67 U/L 40 - 150 01/06 Specimen Type: PLASMA No comment entered. Ordering Provider: LEVON ROBERTSON Report Released Date/Time: Nov 25, 2023 10:30 AM Reporting Lab: [facility] [address] Performing Lab: [facility] [address] [place] [facility] COMPREHE NSIVE METABOLI C PANEL+MG ALANINE AMINOTRANS FERASE [ENZYMATIC ACTIVITY/V OLUME] IN SERUM OR PLASMA 21 U/L <55 - 55 01/06 Specimen Type: PLASMA No comment entered. Ordering Provider: LEVON ROBERTSON Report Released Date/Time: Nov 25, 2023 10:30 AM Reporting Lab: [facility] [address] Performing Lab: [facility] [id number] [place] [facility] COMPREHE NSIVE METABOLI C PANEL+MG ASPARTATE AMINOTRANS FERASE [ENZYMATIC ACTIVITY/V OLUME] IN SERUM OR PLASMA 18 U/L <34 - 34 01/06 Specimen Type: PLASMA No comment entered. Ordering Provider: LEVON ROBERTSON Report Released Date/Time: Nov 25, 2023 10:30 AM Reporting Lab: [facility] [id number] Performing Lab: [facility] [phone] [place] [facility] COMPREHE NSIVE METABOLI C PANEL+MG GLOMERULAR FILTRATION RATE/1.73 SQ M.PREDICTE D [VOLUME RATE/AREA] IN SERUM, PLASMA OR BLOOD BY CREATININE -BASED FORMULA (CKD-EPI 2020) 47 60 01/06 L Specimen Type: PLASMA No comment entered. Ordering Provider: LEVON ROBERTSON Report Released Date/Time: Nov 25, 2023 10:30 AM Reporting Lab: [facility] [phone] Performing Lab: [facility] [phone] [place] [facility] OCCULT BLOOD FIT X1 SCREEN HEMOGLOBIN .GASTROINT ESTINAL.LO WER [PRESENCE] IN STOOL BY IMMUNOASSA Y Negative 10/15 Specimen Type: FECES No comment entered. Ordering Provider: YUKO PALMA Report Released Date/Time: Oct 01, 2023 02:20 PM Reporting Lab: [facility] [id number] Performing Lab: [facility] [phone] [place] [facility] HEMOGLOB IN A1C HEMOGLOBIN A1C/HEMOGL OBIN.TOTAL IN BLOOD 9.7 4.0 - 6.0 10/01 H Specimen Type: BLOOD Comment: Values obtained from A1C measurement s can vary. For typical A1C assays, a reported value of 7.0 could actually be between 6.7 and 7.3 if measured by a reference method. A reported value of 9.0 could actually be between 8.7 and 9.3. Ref: http://www. ngsp.org/[place] Pdata.asp Ordering Provider: YUKO PALMA Report Released Date/Time: Sep 11, 2022 02:51 PM Reporting Lab: [facility] [address] Performing Lab: [facility] [address] [place] [facility] BASIC METABOLI C PANEL+MG CREATININE [MASS/VOLU ME] IN SERUM OR PLASMA 1.3 mg/dL 0.7 - 1.2 10/01 H Specimen Type: PLASMA No comment entered. Ordering Provider: YUKO PALMA Report Released Date/Time: Sep 11, 2022 02:51 PM Reporting Lab: [facility] [address] Performing Lab: [facility] [address] [place] [facility] BASIC METABOLI C PANEL+MG UREA NITROGEN [MASS/VOLU ME] IN SERUM OR PLASMA 20 mg/dL 8 - 26 10/01 Specimen Type: PLASMA No comment entered. Ordering Provider: YUKO PALMA Report Released Date/Time: Sep 11, 2022 02:51 PM Reporting Lab: [facility] [address] Performing Lab: [facility] [address] [place] [facility] BASIC METABOLI C PANEL+MG GLUCOSE [MASS/VOLU ME] IN SERUM OR PLASMA 278 mg/dL 70 - 100 10/01 H Specimen Type: PLASMA No comment entered. Ordering Provider: YUKO PALMA Report Released Date/Time: Sep 11, 2022 02:51 PM Reporting Lab: [facility] [address] Performing Lab: [facility] [address] [place] [facility] BASIC METABOLI C PANEL+MG SODIUM [MOLES/VOL UME] IN SERUM OR PLASMA 139 mmol/L 136 - 145 10/01 Specimen Type: PLASMA No comment entered. Ordering Provider: YUKO PALMA Report Released Date/Time: Sep 11, 2022 02:51 PM Reporting Lab: [facility] [address] Performing Lab: [facility] [address] [place] [facility] BASIC METABOLI C PANEL+MG POTASSIUM [MOLES/VOL UME] IN SERUM OR PLASMA 4.4 mmol/L 3.5 - 5.1 10/01 Specimen Type: PLASMA No comment entered. Ordering Provider: YUKO PALMA Report Released Date/Time: Sep 11, 2022 02:51 PM Reporting Lab: [facility] [address] Performing Lab: [facility] [address] [place] [facility] BASIC METABOLI C PANEL+MG CHLORIDE [MOLES/VOL UME] IN SERUM OR PLASMA 104 mmol/L 98 - 107 10/01 Specimen Type: PLASMA No comment entered. Ordering Provider: YUKO PALMA Report Released Date/Time: Sep 11, 2022 02:51 PM Reporting Lab: [facility] [address] Performing Lab: [facility] [address] [place] [facility] BASIC METABOLI C PANEL+MG CARBON DIOXIDE, TOTAL [MOLES/VOL UME] IN SERUM OR PLASMA 28 mmol/L 22 - 29 10/01 Specimen Type: PLASMA No comment entered. Ordering Provider: YUKO PALMA Report Released Date/Time: Sep 11, 2022 02:51 PM Reporting Lab: [facility] [address] Performing Lab: [facility] [address] [place] [facility] BASIC METABOLI C PANEL+MG CALCIUM [MASS/VOLU ME] IN SERUM OR PLASMA 9.3 mg/dL 8.4 - 10.2 10/01 Specimen Type: PLASMA No comment entered. Ordering Provider: YUKO PALMA Report Released Date/Time: Sep 11, 2022 02:51 PM Reporting Lab: [facility] [address] Performing Lab: [facility] [address] [place] [facility] BASIC METABOLI C PANEL+MG MAGNESIUM [MASS/VOLU ME] IN SERUM OR PLASMA 1.8 mg/dL 1.6 - 2.6 10/01 Specimen Type: PLASMA No comment entered. Ordering Provider: YUKO PALMA Report Released Date/Time: Sep 11, 2022 02:51 PM Reporting Lab: [facility] [address] Performing Lab: [facility] [address] [place] [facility] BASIC METABOLI C PANEL+MG ANION GAP IN SERUM OR PLASMA 7 mmol/L 5 - 15 10/01 Specimen Type: PLASMA No comment entered. Ordering Provider: YUKO PALMA Report Released Date/Time: Sep 11, 2022 02:51 PM Reporting Lab: [facility] [address] Performing Lab: [facility] [address] [place] [facility] BASIC METABOLI C PANEL+MG GLOMERULAR FILTRATION RATE/1.73 SQ M.PREDICTE D [VOLUME RATE/AREA] IN SERUM, PLASMA OR BLOOD BY CREATININE -BASED FORMULA (CKD-EPI 2020) 61 60 10/01 Specimen Type: PLASMA No comment entered. Ordering Provider: YUKO PALMA Report Released Date/Time: Sep 11, 2022 02:51 PM Reporting Lab: [facility] [address] Performing Lab: [facility] [address] [place] [facility] LIPID PANEL,NO N-FASTIN G CHOLESTERO L [MASS/VOLU ME] IN SERUM OR PLASMA 168 mg/dL <199 - 199 10/01 Specimen Type: PLASMA No comment entered. Ordering Provider: YUKO PALMA Report Released Date/Time: Sep 11, 2022 02:51 PM Reporting Lab: [facility] [address] Performing Lab: [facility] [address] [place] [facility] LIPID PANEL,NO N-FASTIN G CHOLESTERO L IN HDL [MASS/VOLU ME] IN SERUM OR PLASMA 40 mg/dL 40 10/01 Specimen Type: PLASMA No comment entered. Ordering Provider: YUKO PALMA Report Released Date/Time: Sep 11, 2022 02:51 PM Reporting Lab: [facility] [address] Performing Lab: [facility] [address] [place] [facility] LIPID PANEL,NO N-FASTIN G CHOLESTERO L IN LDL [MASS/VOLU ME] IN SERUM OR PLASMA BY CALCULATIO N 100 mg/dL <99 - 99 10/01 H Specimen Type: PLASMA No comment entered. Ordering Provider: YUKO PALMA Report Released Date/Time: Sep 11, 2022 02:51 PM Reporting Lab: [facility] [address] Performing Lab: [facility] [address] [place] [facility] LIPID PANEL,NO N-FASTIN G CHOLESTERO L IN VLDL [MASS/VOLU ME] IN SERUM OR PLASMA BY CALCULATIO N 28 mg/dL <29 - 29 10/01 Specimen Type: PLASMA No comment entered. Ordering Provider: YUKO PALMA Report Released Date/Time: Sep 11, 2022 02:51 PM Reporting Lab: [facility] [address] Performing Lab: [facility] [address] [place] [facility] LIPID PANEL,NO N-FASTIN G CHOLESTERO L NON HDL [MASS/VOLU ME] IN SERUM OR PLASMA 128 mg/dL <129 - 129 10/01 Specimen Type: PLASMA No comment entered. Ordering Provider: YUKO PALMA Report Released Date/Time: Sep 11, 2022 02:51 PM Reporting Lab: [facility] [address] Performing Lab: [facility] [address] [place] [facility] LIPID PANEL,NO N-FASTIN G TRIGLYCERI DE [MASS/VOLU ME] IN SERUM OR PLASMA 139 mg/dL <149 - 149 10/01 Specimen Type: PLASMA No comment entered. Ordering Provider: YUKO PALMA Report Released Date/Time: Sep 11, 2022 02:51 PM Reporting Lab: [facility] [address] Performing Lab: [facility] [address] [place] [facility] AST/SGOT ASPARTATE AMINOTRANS FERASE [ENZYMATIC ACTIVITY/V OLUME] IN SERUM OR PLASMA 21 U/L <34 - 34 10/01 Specimen Type: PLASMA No comment entered. Ordering Provider: YUKO PALMA Report Released Date/Time: Sep 11, 2022 02:51 PM Reporting Lab: [facility] [address] Performing Lab: [facility] [address] [place] [facility] CBC LEUKOCYTES [#/VOLUME] IN BLOOD BY AUTOMATED COUNT 8.82 10*3/uL 4.0 - 11.0 10/01 Specimen Type: BLOOD No comment entered. Ordering Provider: YUKO PALMA Report Released Date/Time: Sep 11, 2022 02:51 PM Reporting Lab: [facility] [address] Performing Lab: [facility] [address] [place] [facility] CBC ERYTHROCYT ES [#/VOLUME] IN BLOOD BY AUTOMATED COUNT 5.56 10*6/uL 4.6 - 6.2 10/01 Specimen Type: BLOOD No comment entered. Ordering Provider: YUKO PALMA Report Released Date/Time: Sep 11, 2022 02:51 PM Reporting Lab: [facility] [address] Performing Lab: [facility] [address] [place] [facility] CBC HEMOGLOBIN [MASS/VOLU ME] IN BLOOD 16.9 g/dL 13.5 - 17.9 10/01 Specimen Type: BLOOD No comment entered. Ordering Provider: YUKO PALMA Report Released Date/Time: Sep 11, 2022 02:51 PM Reporting Lab: [facility] [address] Performing Lab: [facility] [address] [place] [facility] CBC HEMATOCRIT [VOLUME FRACTION] OF BLOOD BY AUTOMATED COUNT 50.9 41 - 54 10/01 Specimen Type: BLOOD No comment entered. Ordering Provider: YUKO PALMA Report Released Date/Time: Sep 11, 2022 02:51 PM Reporting Lab: [facility] [address] Performing Lab: [facility] [address] [place] [facility] CBC MCV [ENTITIC VOLUME] BY AUTOMATED COUNT 91.5 fL 80 - 100 10/01 Specimen Type: BLOOD No comment entered. Ordering Provider: YUKO PALMA Report Released Date/Time: Sep 11, 2022 02:51 PM Reporting Lab: [facility] [address] Performing Lab: [facility] [address] [place] [facility] CBC MCH [ENTITIC MASS] BY AUTOMATED COUNT 30.4 pg 27 - 33 10/01 Specimen Type: BLOOD No comment entered. Ordering Provider: YUKO PALMA Report Released Date/Time: Sep 11, 2022 02:51 PM Reporting Lab: [facility] [address] Performing Lab: [facility] [address] [place] [facility] CBC MCHC [MASS/VOLU ME] BY AUTOMATED COUNT 33.2 g/dL 32.0 - 37.5 10/01 Specimen Type: BLOOD No comment entered. Ordering Provider: YUKO PALMA Report Released Date/Time: Sep 11, 2022 02:51 PM Reporting Lab: [facility] [address] Performing Lab: [facility] [address] [place] [facility] CBC PLATELETS [#/VOLUME] IN BLOOD BY AUTOMATED COUNT 220 10*3/uL 150 - 400 10/01 Specimen Type: BLOOD No comment entered. Ordering Provider: YUKO PALMA Report Released Date/Time: Sep 11, 2022 02:51 PM Reporting Lab: [facility] [address] Performing Lab: [facility] [address] [place] [facility] CBC PLATELET MEAN VOLUME [ENTITIC VOLUME] IN BLOOD BY AUTOMATED COUNT 9.7 fL 7.4 - 10.4 10/01 Specimen Type: BLOOD No comment entered. Ordering Provider: YUKO PALMA Report Released Date/Time: Sep 11, 2022 02:51 PM Reporting Lab: [facility] [address] Performing Lab: [facility] [address] [place] [facility] CBC ERYTHROCYT E DISTRIBUTI ON WIDTH [RATIO] BY AUTOMATED COUNT 14.6 11.5 - 14.5 10/01 H Specimen Type: BLOOD No comment entered. Ordering Provider: YUKO PALMA Report Released Date/Time: Sep 11, 2022 02:51 PM Reporting Lab: [facility] [address] Performing Lab: [facility] [address] [facility] Vital Signs Combined list of inpatient and outpatient Vital Signs from Department of Defense and Veterans Affairs, ranging from 12 months to all on record, depending upon the facility. Vital Sign Value Date Comments Source SYSTOLIC BLOOD PRESSURE 123 10/01/2023 13:27:33 [facility] DIASTOLIC BLOOD PRESSURE 85 10/01/2023 13:27:33 [facility] PULSE 83 10/01/2023 13:27:33 [facility] Encounters Combined list of: 1) Encounters from Department of Veterans Affairs facilities going back up to thelast 18 months. 2) Encounters from the Department of Defense facilities going back up to 280 months. Location Location Details Encounter Type Encounter Number Reason For Visit Attending Provider ADM Date DC Date Status [facility] Outpatient Encounter [id number] Diagnos is: ICD-10- CM E11.9 Type 2 diabete s mellitu s without complic ations< br/> PRINCESS PALMA 03/11 [facility] [place] [facility] Outpatient Encounter [id number] 06/05 [facility] [place] [facility] Outpatient Encounter [id number] 06/05 [facility] OFFICE O/P EST MOD 30-39 MIN [id number] Diagnos is: ICD-10- CM E11.42 Type 2 diabete s mellitu s with diabeti c polyneu ropathy
JIGNESH CALERO 06/07 [facility] [place] [facility] Outpatient Encounter [id number] 06/17 [facility] IMMUNIZATI [facility] ADMIN [id number] Diagnos is: ICD-10- CM Z23 Encount er for immuniz ation<b r/> PATRICA FELIX 07/10 [facility] [place] [facility] HC PRO PHONE CALL 21-30 MIN [id number] Diagnos is: ICD-10- CM I10 Essenti al (primar y) hyperte nsion<b r/> ELISHA KANG 07/16 [facility] EYE EXAM ESTABLISH PATIENT [id number] 07/23 [facility] [place] [facility] Outpatient Encounter [id number] 07/23 [facility] I[place]UNIZATI ON ADMIN [id number] Diagnos is: ICD-10- CM Z23 Encount er for immuniz ation<b r/> Mario MASSEY 07/31 [facility] PRO PHONE CALL 21-30 MIN [id number] Diagnos is: ICD-10- CM I10 Essenti al (primar y) hyperte nsion<b r/> MONIKA MCKEON 08/16 [facility] Outpatient Encounter [id number] 09/30 [facility] Outpatient Encounter [id number] 10/01 [facility] MTMS BY PHARM ADDL 15 MIN [id number] Diagnos is: ICD-10- CM E11.9 Type 2 diabete s mellitu s without complic ations< br/> Merna ROBERTSON 10/01 [facility] OFFICE O/P EST HI 40-54 MIN [id number] Diagnos is: ICD-10- CM I63.9 Cerebra l infarct ion, unspeci fied
PRINCESS PALMA 10/01 [facility] Outpatient Encounter [id number] PRINCESS PALMA 10/01 [facility] [place] [id number] Diagnos is: ICD-10- CM E11.65 Type 2 diabete s mellitu s with hypergl ycemia< br/> [facility] MTMS BY PHARM EST 15 MIN [id number] Diagnos is: ICD-10- CM E11.9 Type 2 diabete s mellitu s without complic ations< br/> MILLIREN,E ELISEO D 10/28 [place] [facility] [place] [facility] Outpatient Encounter [id number] NISHA BARKSDALE 11/22 [place] [facility] [place] [facility] MTMS BY PHARM EST 15 MIN [id number] Diagnos is: ICD-10- CM E11.9 Type 2 diabete s mellitu s without complic ations< br/> MILLIREN,E ELISEO D 11/25 [place] [facility] [place] [facility] MTMS BY PHARM EST 15 MIN [id number] Diagnos is: ICD-10- CM E11.9 Type 2 diabete s mellitu s without complic ations< br/> MILLIREN,E ELISEO D 01/07 [place] [facility] [place] [facility] MED NUTRITION INDIV SUBSEQ [id number] Diagnos is: ICD-10- CM E11.65 Type 2 diabete s mellitu s with hypergl ycemia< br/> BOB WOODARD E 01/08 [place] [facility] [place] [facility] MTMS BY PHARM EST 15 MIN [id number] Diagnos is: ICD-10- CM E11.9 Type 2 diabete s mellitu s without complic ations< br/> MILLIREN,E ELISEO D 01/22 [place] [facility] [place] [facility] Outpatient Encounter [id number] 04/07 [place] [facility] [place] [facility] Outpatient Encounter [id number] 05/29 [place] [facility] [place] [facility] Outpatient Encounter [id number] CATHERINE BORGES 06/03 [place] [facility] [place] [facility] En[facility] [id number] CATHERINE BORGES 06/07 [place] [facility] [place] [facility] En[facility] [id number] 06/11 [place] [facility] [place] [facility] En[facility] [id number] AYDEE METZGER 06/17 [place] [facility] [place] [facility] En[facility] [id number] 06/17 [place] [facility] [place] [facility] En[facility] [id number] 06/17 [place] [facility] [place] [facility] En[facility] [id number] 06/18 [place] [facility] [place] [facility] En[facility] [id number] 06/19 [place] [facility] [place] [facility] En[facility] [id number] 06/19 [place] [facility] [place] [facility] En[facility] [id number] 06/19 [place] [facility] [place] [facility] En[facility] [id number] 06/20 [place] [facility] [place] [facility] En[facility] [id number] 06/24 [place] [facility] [place] [facility] En[facility] [id number] 06/24 [place] [facility] [place] [facility] En[facility] [id number] 06/24 [place] [facility] [place] [facility] En[facility] [id number] 06/25 [place] [facility] [place] En[facility] [id number] 06/25 [place] [facility] [place] [facility] En[facility] [id number] AYDEE METZGER 06/30 [place] [facility] [place] En[facility] [id number] 06/30 [place] [facility] [place] En[facility] [id number] AYDEE METZGER 07/02 [place] [facility] [place] [facility] En[facility] [id number] 07/03 [place] [facility] [place] [facility] En[facility] [id number] 07/07 [place] [facility] [place] [facility] En[facility] [id number] 07/08 [place] [facility] [place] [facility] En[facility] [id number] AYDEE METZGER 07/09 [place] [facility] [place] [facility] En[facility] [id number] 07/09 [place] [facility] [place] [facility] En[facility] [id number] 07/10 [place] [facility] [place] [facility] En[facility] [id number] 07/14 [place] [facility] [place] En[facility] [id number] 07/15 [place] [facility] [place] [facility] En[facility] [id number] 07/16 [place] [facility] [place] [facility] QNHP OL DIG ASSMT&MGMT 5-10 [id number] Diagnos is: ICD-10- CM 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
SHIVANI EMANUEL 07/16 [place] [facility] [place] En[facility] [id number] 07/17 [place] [facility] [place] [facility] En[facility] [id number] 07/20 [place] [facility] [place] [facility] En[facility] [id number] 07/21 [place] [facility] [place] [facility] En[facility] [id number] 07/22 [place] [facility] [place] [facility] En[facility] [id number] 07/23 [place] [facility] [place] [facility] En[facility] [id number] 07/23 [place] [facility] [place] [facility] En[facility] [id number] 07/24 [place] [facility] [place] [facility] En[facility] [id number] 07/27 [place] [facility] [place] [facility] En[facility] [id number] 07/28 [place] [facility] [place] [facility] En[facility] [id number] 07/29 [place] [facility] [place] [facility] En[facility] [id number] 08/04 [place] [facility] [place] [facility] En[facility] [id number] 08/05 [place] [facility] [place] [facility] En[facility] [id number] 08/08 [place] [facility] [place] [facility] En[facility] [id number] 08/08 [place] [facility] [place] [facility] [id number] 08/08 [place] [facility] [place] [facility] En[facility] [id number] 08/08 [place] [facility] [place] [facility] En[facility] [id number] 08/08 [place] [facility] [place] [facility] Outpatient Encounter [id number] 08/08 [place] [facility] [place] [facility] Outpatient Encounter [id number] 08/08 [place] [facility] [place] [facility] Outpatient Encounter [id number] 08/10 [place] [facility] [place] [facility] Outpatient Encounter [id number] 08/11 [place] [facility] [place] [facility] Outpatient Encounter [id number] 08/12 [place] [facility] [place] [facility] Outpatient Encounter [id number] 08/13 [place] [facility] [place] [facility] Outpatient Encounter [id number] 08/13 [place] [facility] [place] [facility] Outpatient Encounter [id number] 08/17 [place] [facility] [place] [facility] Outpatient Encounter [id number] 08/18 [facility] Social History Combined list of available smoking, tobacco, and other social history from Department of Defense and Veterans Affairs facilities. Social History Type Response Date Comment Sour e Tobacco smoking status [facility] NEVER USED 09/30/2023 [facility] History of tobacco use PR-TOBACCO NEVER USED 09/11/2022 [facility] History of tobacco use PR-TOBACCO NEVER USED 02/16/2019 [facility] Plan of Care List of future care activities from Department of [facility] Affairs facilities. Additional future care activities may be listed in the Assessment and Plan section. Date/Time Care Activity Care Activity Detail Facili ty 09/30/2024 Laboratory - Chemistry Order BAS IC METABOLIC PANEL+MG PLASMA SP [facility] 09/30/2024 Laboratory - Chemistry Order LIP ID PANEL,NON-FASTING PLASMA SP [facility] 09/30/2024 Laboratory - Chemistry Order HEMOGLOBIN A 1C BLOOD SP [facility] 09/30/2024 Laboratory - Chemistry Order KIRAN ROALBUMIN/CREATININE RATIO URINE URINE SP ONCE [facility] 09/30/2024 Laboratory - Chemistry Order CBC BLOOD S P [facility]
--- OUTSIDE RECORDS SUMMARY | 2024-08-21 10:13 | XMS_ITS | Encounter Summary ---
Author Name [facility] [place] Organization [place] Address [address] [place] [id number] Care Team Providers Care Insulation Professional Name Role Phone PORTER, YUKO Primary Care Provider Unavailabl e Insurance Providers: [...] PART A Oct 21, 2020 PART A [id number] Tabitha DAVIS PATIENT Selected Encounter This section includes the information on record at [place] for the Encounter. Date/Time Encounter Type Encounter Description Reason Pro vider Source Jun 17, 2024 12:38 PM Outpatient Encounter COMMUNITY CARE CONSULT IHE Encounter Template Text not used by [...] Appointment Type Appointme nt Facility Name Jun 18, 2024 01:00 PM AMBULATORY - NONE [facility] Jun 18, 2024 02:00 PM [facility] [place] NONE [place] [facility] Jun 24, 2024 07:00 AM AMBULATORY - NONE [facility] Active, Pending, and Scheduled Orders This section includes a listing of several types of active, pending, and scheduled orders, including clinic medications orders, diagnostic test orders, procedure orders and consult orders; where the start date of the order is 45 days before the date of the Encounter or 45 days after the date of theEncounter. The data comes from all [place] treatment facilities. Test Date/Time Test Type Test Details Facility Name Jun 17, 2024 09:26 AM Consult Order COMMUNITY CARE-IV THERAPY [facility] Marketing Budget Analyst[facility] Jun 17, 2024 09:46 AM Consult Order INFECTIOUS DISEASE OUTPT [facility] Jun 17, 2024 10:08 AM Consult Order PODIATRY O UTPT [facility] Social History: Smoking Status (Most current) [...] 30, 2023 11:58 PM VA-TOBACCO NEVER USED [facility] Tobacco Use History This section includes a history of the smoking, or tobacco-related health factors, that were collected on or before the date of the Encounter. The data comes from the [place] facility where the Encounter took place. Date/Time Smoking Status/Tobacco Use Comment F acility Sep 11, 2022 02:15 PM VA-TOBACCO NEVER USED [facility] Feb 16, 2019 02:36 PM VA-TOBACCO NEVER USED [facility] Encounter Notes: All associated encounter notes This section contains the clinical notes associated to the Encounter. Date/Time Encounter Note(s) Provider Source Jun 17, 2024 12:38 PM NONVA NOTE: LOCAL TITLE: COMMUNITY CARE APPOINTMENT LETTER (AUTOPRINT) STANDARD TITLE: NONVA NOTE DATE OF NOTE: JUN 17, 2024@12:38 ENTRY DATE: JUN 17, 2024@12:38:59 AUTHOR: SWAPNIL GOULD COSIGNER: URGENCY: STATUS: COMPLETED May KARIN DAVIS [address], [place] [address] Dear KARIN DAVIS, Your VA provider has referred you to a provider within the community for care. Your medical care for WOUND CARE has been authorized with the community care provider listed below. DO NOT REPORT TO THE [place] [facility] Provider info: An appointment has been scheduled for you on: May@13:00 Office name, address, phone number: [facility] [address] [facility] [address] PH: [phone] Authorization number: [id number] Referral issue date: May Expiration date: Nov (subject to change based on first appointment) *Please bring this appt letter containing your authorization information to your appointment* If you are unable to keep this appointment or the appointment is no longer needed, please contact the community provider above for notification/rescheduling and then call the [facility] Office of Community Care at [phone] during the hours of 8:30AM - 3:00PM. If you need additional care/services not mentioned above or your authorization has and additional care is needed, please contact your primary care provider for a new referral. To review all care/service(s) approved under your referral, please go to the following link: [facility]([employer] ) Co-Payments: If you are required to pay a VA co-payment, you will be billed by the VA for each authorized visit that you attend. However, you are NOT REQUIRED to make co-payments to a community provider. Thank you for the opportunity to serve you. Sincerely, [place] Community Care (VACC) /viridiana/ SWAPNIL GOULD ADVANCED REPORT ANALYST Signed: 06/17/2024 12:[address] [facility]
--- OUTSIDE RECORDS SUMMARY | 2024-08-21 10:13 | XMS_ITS | Encounter Summary ---
Author Name [facility] [place] Organization [place] Address [address] [place] [address] Care Team Providers Care Radio Sales Account Executive Name Role Phone YUKO BUENROSTRO Primary Care [...] PART A Oct 21, 2020 PART A [id number] [phone] Tabitha DAVIS PATIENT Selected Encounter This section includes the information on record at [place] for the Encounter. Date/Time Encounter Type Encounter Description Reason Pro vider Source Jun 30, 2024 12:00 PM Outpatient Encounter PRIMARY CARE/MEDICINE IHE Encounter Template Text not used by [place] Plan of Treatment: Future Appointments (+ 6 months) and Future Tests (+/- 45 days) The Plan of Treatment section includes future care activities for the patient from all [place] treatmentfacilities. This section includes future appointments and future orders which are active, pending or scheduled. Active, Pending, and Scheduled Orders This section includes a listing of several types of active, pending, and scheduled orders, including clinic medications orders, diagnostic test orders, procedure orders and consult orders; where the start date of the order is 45 days before the date of the Encounter or 45 days after the date of theEncounter. The data comes from all [place] treatment facilities. Test Date/Time Test Type Test Details Facility Name Jun 17, 2024 09:46 AM Consult Order INFECTIOUS DISEASE OUTPT [employer] [facility] Jun 17, 2024 10:08 AM Consult Order COMMUNITY CARE-PODIATRY [employer] [facility] Jul 01, 2024 09:46 AM Consult Order COMMUNITY CARE-HYPERBARIC PC [employer] [facility] Social History: Smoking Status (Most current) and Tobacco Use (All prior to encounter date) This section includes the most current, and the historical, smoking and tobacco- related health factors from the [place] facility where the Encounter took place. Current Smoking Status This section includes the most current smoking, or tobacco-related health factor, from the [place] facility where the Encounter took place. Date/Time Current Smoking Status Comment Facil ity Sep 30, 2023 11:58 PM VA-TOBACCO NEVER USED [facility] Tobacco Use History This section includes a history of the smoking, or tobacco-related health factors, that were collected on or before the date of the Encounter. The data comes from the [place] facility where the Encounter took place. Date/Time Smoking Status/Tobacco Use Comment F acility Sep 11, 2022 02:15 PM VA-TOBACCO NEVER USED [facility] Feb 16, 2019 02:36 PM VA-TOBACCO NEVER USED [facility] Encounter Notes: All associated encounter notes This section contains the clinical notes associated to the Encounter. Date/Time Encounter Note(s) Provider Source Jun 30, 2024 08:35 PM ADDENDUM: LOCAL TITLE: Addendum STANDARD TITLE: ADDENDUM DATE OF NOTE: JUN 30, 2024@20:35:58 ENTRY DATE: JUN 30, 2024@20:35:59 AUTHOR: BETTY DAVALOS COSIGNER: URGENCY: STATUS: COMPLETED Consult requesting hyperbaric therapy (for approved indications) can be found under the heading of Pulmonary on the Community Care consult menu. /viridiana/ BETTY DAVALOS MD STAFF PHYSICIAN Signed: 06/30/2024 20:37 Receipt Acknowledged By: 07/01/2024 09:52 /viridiana/ YUKO BUENROSTRO Physician Research Food Technologist --- Original Document --- 06/30/24 COMMUNITY CARE CONSULT RESULT WOUND CARE PC: [facility] - Scanned Document RFS - HYPERBARIC TREATMENT SCANNED DOCUMENT SIGNATURE NOT REQUIRED Electronically Filed: 06/30/2024 by: BELLA METZGER RN BSN COOK HELPER PRESERVES SALES SUPPORT SPECIALIST BETTY DAVALOS [facility] Jun 30, 2024 12:00 PM NONVA CONSULT: LOCAL TITLE: COMMUNITY CARE CONSULT RESULT WOUND CARE PC STANDARD TITLE: NONVA CONSULT DATE OF NOTE: JUN 30, 2024@12:00 ENTRY DATE: JUN 30, 2024@09:57:52 AUTHOR: BELLA METZGER EXP COSIGNER: URGENCY: STATUS: COMPLETED COMMUNITY CARE CONSULT RESULT WOUND CARE PC Has ADDENDA [facility] - Scanned Document RFS - HYPERBARIC TREATMENT SCANNED DOCUMENT SIGNATURE NOT REQUIRED Electronically Filed: 06/30/2024 by: BELLA METZGER RN BSN COOK HELPER PRESERVES SALES SUPPORT SPECIALIST 06/30/2024 ADDENDUM STATUS: COMPLETED Consult requesting hyperbaric therapy (for approved indications) can be found under the heading of Pulmonary on the Community Care consult menu. /viridiana/ BETTY DAVALOS MD STAFF PHYSICIAN Signed: 06/30/2024 20:37 Receipt Acknowledged By: * AWAITING SIGNATURE * YUKO BUENROSTRO [facility]
--- OUTSIDE RECORDS SUMMARY | 2024-08-21 10:13 | XMS_ITS | Encounter Summary ---
Author Name [facility] [place] Organization [place] Address [address] [place] [address] Care Team Providers Care Scale Tester Name Role Phone PORTER, YUKO Primary Care [...] PART A Oct 21, 2020 PART A [id number] Tabitha DAVIS PATIENT Selected Encounter This section includes the information on record at [place] for the Encounter. Date/Time Encounter Type Encounter Description Reason Pro vider Source Jun 19, 2024 05:16 PM Outpatient Encounter COMMUNITY CARE CONSULT IHE Encounter Template Text not used by [place] Plan of Treatment: Future Appointments (+ 6 months) and Future Tests (+/- 45 days) The Plan of Treatment section includes future care activities for the patient from all [place] treatmentfacilities. This section includes future appointments and future orders which are active, pending or scheduled. Future Appointments This section includes appointments that were scheduled to occur 6 months from the date of the Encounter, up to a maximum of 20 appointments. The data comes from all [place] treatment facilities. Appointment Date/Time Appointment Type Appointme nt Facility Name Jun 24, 2024 07:00 AM AMBULATORY - NONE [facility] Active, Pending, and Scheduled Orders This section includes a listing of several types of active, pending, and scheduled orders, including clinic medications orders, diagnostic test orders, procedure orders and consult orders; where the start date of the order is 45 days before the date of the Encounter or 45 days after the date of theEncounter. The data comes from all [place] treatment facilities. Test Date/Time Test Type Test Details Facility Name Jun 17, 2024 09:26 AM Consult Order COMMUNITY CARE-IV THERAPY [facility] Emergency Services Manager's [facility] Jun 17, 2024 09:46 AM Consult Order INFECTIOUS DISEASE OUTPT [facility] Emergency Services Manager's [facility] Jun 17, 2024 10:08 AM Consult Order PODIATRY O UTPT [facility] Social History: Smoking Status (Most current) and Tobacco Use (All prior to encounter date) This section includes the most current, and the historical, smoking and tobacco- related health factors from the [place] facility where the Encounter took place. Current Smoking Status This section includes the most current smoking, or tobacco-related health factor, from the [place] facility where the Encounter took place. Date/Time Current Smoking Status Comment Randall ity Sep 30, 2023 11:58 PM VA-TOBACCO NEVER USED [facility] Tobacco Use History This section includes a history of the smoking, or tobacco-related health factors, that were collected on or before the date of the Encounter. The data comes from the [place] facility where the Encounter took place. Date/Time Smoking Status/Tobacco Use Comment F acbehzad Sep 11, 2022 02:15 PM VA-TOBACCO NEVER USED [facility] Feb 16, 2019 02:36 PM VA-TOBACCO NEVER USED [facility] Encounter Notes: All associated encounter notes This section contains the clinical notes associated to the Encounter. Date/Time Encounter Note(s) Provider Source Jun 23, 2024 12:57 PM ADDENDUM: LOCAL TITLE: Addendum STANDARD TITLE: ADDENDUM DATE OF NOTE: JUN 23, 2024@12:57:07 ENTRY DATE: JUN 23, 2024@12:57:07 AUTHOR: BETTY DAVALOS EXP COSIGNER: URGENCY: STATUS: COMPLETED Records reviewed in response to above notifications. Non-emergent DME is not typically covered under CC consult. This property underwriter has therefore placed the following consult requesting wound vac: Prosthetics request #[id number]. /viridiana/ BETTY DAVALOS MD STAFF PHYSICIAN Signed: 06/23/2024 12:58 Receipt Acknowledged By: 06/24/2024 13:45 /es/ RICARDO FULLER RN supervisor concrete pipe plant Abstract Searcher for BLELA METZGER 06/23/2024 13:19 /es/ ROSEMARY WALTER PA-C Internal Medicine (Primary Care) for YUKO BUENROSTRO ====== --- Original Document --- 06/19/24 COMMUNITY CARE-REQUEST FOR SERVICE NOTE: Received request from patient's CC WINTERS provider, (name) requesting referral for (services)WOUND VAC. May CC WOUND Consult #[id number]. RFS uploaded to [facility] note dated: 06/19/24. ~ Place new WOUND VAC consult if clinically indicated, thank you /es/ BELLA METZGER BEVEL OPERATOR TELEPHOTO INSTALLER WIC SITE COORDINATOR Signed: 06/19/2024 17:17 Receipt Acknowledged By: 06/23/2024 13:00 /viridiana/ BETTY DAVALOS MD STAFF PHYSICIAN 06/23/2024 12:12 /viridiana/ YUKO BUENROSTRO Physician Placement Officer 06/23/2024 ADDENDUM STATUS: COMPLETED Please advise if Wound VAC would be covered under current [facility] Wound consult. Thank yoU! /viridiana/ YUKO BUENROSTRO Physician Placement Officer Signed: 06/23/2024 12:12 Receipt Acknowledged By: 06/23/2024 12:39 /viridiana/ BETTY DAVALOS MD STAFF PHYSICIAN BETTY DAVALOS [facility] Jun 23, 2024 12:12 PM ADDENDUM: LOCAL TITLE: Addendum STANDARD TITLE: ADDENDUM DATE OF NOTE: JUN 23, 2024@12:12:34 ENTRY DATE: JUN 23, 2024@12:12:35 AUTHOR: YUKO BUENROSTRO COSIGNER: URGENCY: STATUS: COMPLETED Please advise if Wound VAC would be covered under current [facility] Wound consult. Thank yoU! /estevan BUENROSTRO Physician Placement Officer Signed: 06/23/2024 12:12 Receipt Acknowledged By: 06/23/2024 12:39 /estevan DAVALOS MD STAFF PHYSICIAN ====== --- Original Document --- 06/19/24 COMMUNITY CARE-REQUEST FOR SERVICE NOTE: Received request from patient's CC DAR provider, (name) requesting referral for (services)WOUND VAC. May CC WOUND Consult #[id number]. RFS uploaded to [employer] note dated: 06/19/24. ~ Place new WOUND VAC consult if clinically indicated, fely durant /viridiana/ BELLA METZGER RN BSN TELEPHOTO INSTALLER WIC SITE COORDINATOR Signed: 06/19/2024 17:17 Receipt Acknowledged By: * AWAITING SIGNATURE * BETTY DAVALOS 06/23/2024 12:12 /estevan BUENROSTRO Physician Placement Officer YUKO BUENROSTRO [facility] Jun 19, 2024 05:16 PM NONVA NOTE: LOCAL TITLE: COMMUNITY CARE-REQUEST FOR SERVICE NOTE STANDARD TITLE: NONVA NOTE DATE OF NOTE: JUN 19, 2024@17:16 ENTRY DATE: JUN 19, 2024@17:16:29 AUTHOR: BELLA METZGER EXP COSIGNER: URGENCY: STATUS: COMPLETED SUBJECT: RFS - DME- WOUND VAC COMMUNITY CARE-REQUEST FOR SERVICE NOTE Has ADDENDA Received request from patient's DAR provider, (name) requesting referral for (services)WOUND VAC. May CC WOUND Consult #[id number]. RFS uploaded to [facility] note dated: 06/19/24. ~ Place new WOUND VAC consult if clinically indicated, fely durant /estevan METZGER RN BSN TELEPHOTO INSTALLER WIC SITE COORDINATOR Signed: 06/19/2024 17:17 Receipt Acknowledged By: 06/23/2024 13:00 /estevan DAVALOS MD STAFF PHYSICIAN 06/23/2024 12:12 /estevan BUENROSTRO Physician Placement Officer 06/23/2024 ADDENDUM STATUS: COMPLETED Please advise if Wound VAC would be covered under current [facility] Wound consult. Thank yoU! /estevan BUENROSTRO Physician Placement Officer Signed: 06/23/2024 12:12 Receipt Acknowledged By: 06/23/2024 12:39 /estevan DAVALOS MD STAFF PHYSICIAN 06/23/2024 ADDENDUM STATUS: COMPLETED Records reviewed in response to above notifications. Non-emergent DME is not typically covered under CC consult. This property underwriter has therefore placed the following consult requesting wound vac: Prosthetics request #[id number]. /estevan DAVALOS MD STAFF PHYSICIAN Signed: 06/23/2024 12:58 Receipt Acknowledged By: * AWAITING SIGNATURE * BELLA METZGER * AWAITING SIGNATURE * YUKO BUENROSTRO [facility]
--- OUTSIDE RECORDS SUMMARY | 2024-08-21 10:13 | XMS_ITS | Encounter Summary ---
Author Name [facility] [place] Organization [place] Address [address] [place] [address] Care Team Providers Care Building Insulation Supervisor Name Role Phone PORTER YUKO Primary Care Provider Unavailabl e Insurance [...] PART A Oct 21, 2020 PART A [id number] Tabitha DAVIS PATIENT Selected Encounter This section includes the information on record at [place] for the Encounter. Date/Time Encounter Type Encounter Description Reason Provider Source Jun 17, 2024 10:16 AM Outpatient Encounter COMMUNITY CARE CONSULT BELLA METZGER Encounter Template Text not used by [place] Plan of Treatment: Future Appointments (+ 6 months) and Future Tests (+/- 45 days) The Plan of Treatment section includes future care activities for the patient from all [place] treatmentfacilities. This section includes future appointments and future orders which are active, pending or scheduled. Future Appointments This section includes appointments that were scheduled to occur 6 months from the date of the Encounter, up to a maximum of 20 appointments. The data comes from all [place] treatment facilities. Appointment Date/Time Appointment Type Appointme nt Facility Name Jun 18, 2024 01:00 PM AM[facility]ATORY [facility] [facility] Jun 18, 2024 02:00 PM AM[facility]ULATORY [facility] Jun 24, 2024 07:00 AM AMBULATORY - NONE [facility] Active, Pending, and Scheduled Orders This section includes a listing of several types of active, pending, and scheduled orders, including clinic medications orders, diagnostic test orders, procedure orders and consult orders; where the start date of the order is 45 days before the date of the Encounter or 45 days after the date of theEncounter. The data comes from all [place] treatment facilities. Test Date/Time Test Type Test Details Facility Name Jun 17, 2024 09:26 AM Consult Order COMMUNITY CARE-IV THERAPY [facility] Water/Wastewater Project Engineer's Choice [facility] Jun 17, 2024 09:46 AM Consult Order INFECTIOUS DISEASE OUTPT [facility] Jun 17, 2024 10:08 AM Consult Order PODIATRY O UTPT [facility] Social History: Smoking Status (Most current) and Tobacco Use (All prior to encounter date) This section includes the most current, and the historical, smoking and tobacco- related health factors from the [place] facility where the Encounter took place. Current Smoking Status This section includes the most current smoking, or tobacco-related health factor, from the [place] facility where the Encounter took place. Date/Time Current Smoking Status Comment Randall ity Sep 30, 2023 11:58 PM [place]-TOBACCO NEVER USED [facility] Tobacco Use History This section includes a history of the smoking, or tobacco-related health factors, that were collected on or before the date of the Encounter. The data comes from the [place] facility where the Encounter took place. Date/Time Smoking Status/Tobacco Use Comment F acility Sep 11, 2022 02:15 PM VA-TOBACCO NEVER USED [facility] Feb 16, 2019 02:36 PM VA-TOBACCO NEVER USED [facility] Encounter Notes: All associated encounter notes This section contains the clinical notes associated to the Encounter. Date/Time Encounter Note(s) Provider Source Jun 17, 2024 10:17 AM NONVA NOTE: LOCAL TITLE: COMMUNITY CARE-CARE COORDINATION PLAN NOTE STANDARD TITLE: NONVA NOTE DATE OF NOTE: JUN 17, 2024@10:17 ENTRY DATE: JUN 17, 2024@10:17:29 AUTHOR: BELLA METZGER COSIGNER: URGENCY: STATUS: COMPLETED Community Care Consult: 06/17/24 wound care Consult No: [id number] [facility] Referral #: na Chief Complaint: right foot cellulitisrecently hospitalized with woundvac that was removed yesterday Patient Admitted? No Level of Care Coordination Moderate Care Coordination was determined from: Chart Review Facility Community Care Office Contact Care Coordination Point of Contact: BELLA METZGER RN Services: Basic Care Coordination Services Monitoring and coordination of Rehab/PT Services Direct communication to referring provider Care management, if appropriate Plan: assessed as needing moderate care coordination which may include disease management, health/wellness promotion and education concerning this episode of care. [place] and/or caregiver provided direct contact information for community care department by letter. This letter assists with any follow up needs or additional requests for services. /viridiana/ BELLA METZGER RN BSN STUDIO OPERATION ENGINEER SUPERANNUATION FUNDS MANAGER Signed: 06/17/2024 10:18 [facility] Jun 17, [facility] 10[facility]16 AM NONVA NOTE: LOCAL TITLE: COMMUNITY CARE-CARE COORDINATION PLAN NOTE STANDARD TITLE: NONVA NOTE DATE OF NOTE: JUN 17, 2024@10:16 ENTRY DATE: JUN 17, 2024@10:16:10 AUTHOR: BELLA METZGER EXP COSIGNER: URGENCY: STATUS: COMPLETED Community Care Consult: 06/17/24 IV THERAPY Consult No: [id number] [facility] Referral #: na Chief Complaint: cellulitis, d/c from [facility], hasdaily ertapenum ordered IV Patient Admitted? No Level of Care Coordination Moderate Care Coordination was determined from: Chart Review Facility Community Care Office Contact Care Coordination Point of Contact: BELLA METZGER RN Services: Basic Care Coordination Services Monitoring and coordination of Rehab/PT Services Direct communication to referring provider Care management, if appropriate Plan: assessed as needing moderate care coordination which may include disease management, health/wellness promotion and education concerning this episode of care. [place] and/or caregiver provided direct contact information for community care department by letter. This letter assists with any follow up needs or additional requests for services. /viridiana/ BELLA PARKSN STUDIO OPERATION ENGINEER SUPERANNUATION FUNDS MANAGER Signed: 06/17/2024 10:17 [facility]
--- OUTSIDE RECORDS SUMMARY | 2024-08-21 10:13 | XMS_ITS | Encounter Summary ---
Author Name [facility] [place] [facility] Address [address] [place] [address] Care Team Providers Care Tool Room Machinist Name Role Phone YUKO BUENROSTRO Primary Care [...] PART A Oct 21, 2020 PART A [id number] [phone] Tabitha DAVIS PATIENT Selected Encounter This section includes the information on record at [place] for the Encounter. Date/Time Encounter Type Encounter Description Reason Pro vider Source Jun 11, 2024 12:00 AM Outpatient Encounter ADMIN PAT ACTIVTIES (MASNONCT) E Encounter Template Text not used by [place] Plan of Treatment: Future Appointments (+ 6 months) and Future Tests (+/- 45 days) The Plan of Treatment section includes future care activities for the patient from all [place] treatmentfacilities. This section includes future appointments and future orders which are active, pending or scheduled. Future Appointments This section includes appointments that were scheduled to occur 6 months from the date of the Encounter, up to a maximum of 20 appointments. The data comes from all [place] treatment facilities. Appointment Date/Time Appointment Type Appointme nt Facility Name Jun 18, 2024 01:00 [facility] Jun 18, 2024 02:00 PM [facility] [place] [facility] Jun 24, 2024 07:00 AM [facility] [place] [facility] Jul 07, 2024 02:30 PM [facility] [place]ONE [place] [facility] [facility] Jul 13, 2024 11:30 AM [facility] [place]ONE [place] [facility] Jul 16, 2024 01:45 PM [facility] [place] [facility] Jul 17, 2024 07:00 AM [facility] [place] [facility] Social History: Smoking Status (Most current) and Tobacco Use (All prior to encounter date) This section includes the most current, and the historical, smoking and tobacco- related health factors from the [place] facility where the Encounter took place. Current Smoking Status This section includes the most current smoking, or tobacco-related health factor, from the [place] facility where the Encounter took place. Date/Time Current Smoking Status Comment Facil ity Sep 30, 2023 11:58 PM VA-TOBACCO NEVER USED [facility] Tobacco Use History This section includes a history of the smoking, or tobacco-related health factors, that were collected on or before the date of the Encounter. The data comes from the [place] facility where the Encounter took place. Date/Time Smoking Status/Tobacco Use Comment F acility Sep 11, 2022 02:15 PM VA-TOBACCO NEVER USED [facility] Feb 16, 2019 02:36 PM VA-TOBACCO NEVER USED [facility] Encounter Notes: All associated encounter notes This section contains the clinical notes associated to the Encounter. Date/Time Encounter Note(s) Provider Source Jun 11, 2024 12:00 AM NONVA NOTE: LOCAL TITLE: LABORATORY NONVA NOTE STANDARD TITLE: NONVA NOTE DATE OF NOTE: JUN 11, 2024 ENTRY DATE: JUN 24, 2024@14:55:22 AUTHOR: TAJ PUENTES EXP COSIGNER: URGENCY: STATUS: COMPLETED [facility] - Scanned Document This note contains attached LABORATORY scanned document(s) received from an outside facility. Open [place] Display to review the document(s). /viridiana/ TAJ PUENTES Manager Customer - HIT Signed: 06/24/2024 14:55 TAJ PUENTES [facility]
--- OUTSIDE RECORDS SUMMARY | 2024-08-21 10:13 | XMS_ITS | Encounter Summary ---
Author Name [facility] [place] Address [address] [place] [address] Care Team Providers Care Vehicle Safety Inspector Name Role Phone YUKO BUENROSTRO Primary Care [...] PART A Oct 21, 2020 PART A [id number] [phone] Tabitha DAVIS PATIENT Selected Encounter This section includes the information on record at [place] for the Encounter. Date/Time Encounter Type Encounter Description Reason Provider Source Jun 03, 2024 07:01 PM Outpatient Encounter ADMIN PAT ACTIVTIES (MASNONCT) KAY BORGES Merna Encounter Template Text not used by [place] Plan of Treatment: Future Appointments (+ 6 months) and Future Tests (+/- 45 days) The Plan of Treatment section includes future care activities for the patient from all [place] treatmentfacilities. This section includes future appointments and future orders which are active, pending or scheduled. Future Appointments This section includes appointments that were scheduled to occur 6 months from the date of the Encounter, up to a maximum of 20 appointments. The data comes from all [place] treatment facilities. Appointment Date/Time Appointment Type Appointme nt Facility Name Jun 07, 2024 04:06 PM [facility] Jun 08, 2024 05:15 PM [facility] [facility] Jun 18, 2024 01:00 PM [facility] [place] [facility] Jun 18, 2024 02:00 PM [place] [place] [facility] [facility] Jun 24, 2024 07:00 AM [facility] - NONE [place] [facility] Active, Pending, and Scheduled Orders This section includes a listing of several types of active, pending, and scheduled orders, including clinic medications orders, diagnostic test orders, procedure orders and consult orders; where the start date of the order is 45 days before the date of the Encounter or 45 days after the date of theEncounter. The data comes from all [place] treatment facilities. Test Date/Time Test Type Test Details Facility Name Jun 17, 2024 09:26 AM Consult Order COMMUNITY CARE-IV THERAPY [facility] Power System Operator's [facility] Jun 17, 2024 09:46 AM Consult Order INFECTIOUS DISEASE OUTPT [facility] Jun 17, 2024 10:08 AM Consult Order PODIATRY O UTPT [facility] Social History: Smoking Status (Most current) and Tobacco Use (All prior to encounter date) This section includes the most current, and the historical, smoking and tobacco- related health factors from the [place] facility where the Encounter took place. Current Smoking Status This section includes the most current smoking, or tobacco-related health factor, from the [place] facility where the Encounter took place. Date/Time Current Smoking Status Comment [place] ity Sep 30, 2023 11:58 PM VA-TOBACCO NEVER USED [facility] Tobacco Use History This section includes a history of the smoking, or tobacco-related health factors, that were collected on or before the date of the Encounter. The data comes from the [place] facility where the Encounter took place. Date/Time Smoking Status/Tobacco Use Comment F acility Sep 11, 2022 02:15 PM VA-TOBACCO NEVER USED [facility] Feb 16, 2019 02:36 PM VA-TOBACCO NEVER USED [facility] Encounter Notes: All associated encounter notes This section contains the clinical notes associated to the Encounter. Date/Time Encounter Note(s) Provider Source Jun 04, 2024 10:11 AM ADDENDUM: LOCAL TITLE: Addendum STANDARD TITLE: ADDENDUM DATE OF NOTE: JUN 04, 2024@10:11:45 ENTRY DATE: JUN 04, 2024@10:11:46 AUTHOR: ESTHER PARIS EXP COSIGNER: URGENCY: STATUS: COMPLETED [place] was seen in a Community ED. Records uploaded to chart. Please review and follow up as appropriate. /viridiana/ ESTHER BUITRAGO MSA Signed: 06/04/2024 10:11 Receipt Acknowledged By: 06/04/2024 10:31 /es/ OBDULIA ORTIZ RN RN, BSN 06/04/2024 10:28 /es/ YUKO BUENROSTRO Physician Burial Agent === --- Original Document --- 06/02/24 [facility] SELF PRESENTING CARE COORD PLAN NOTE: Emergency Notification Intake Date Presenting to the Facility: May Method of Contact: Notified from [facility] worklist Notification ID: [id number] [facility] [place] Referral #: [facility] Hospital Name: Hospital: [facility] Address: [address] City: [place] State: [place] Zip Code: [facility] Facility Point of Contact: Name: tor george Chief complaint: L03.115 Primary Diagnosis: Disposition Unknown at time of intake note entry 1703 Clinical Review /viridiana/ ANA LILIA AUGUST AREA MECHANIC ON DUTY Signed: 06/03/2024 19:04 Receipt Acknowledged By: 06/04/2024 08:34 /es/ KAY BORGES LOG HAULER [facility] SENIOR INVESTIGATOR ASSOCIATE JAVA DEVELOPER 06/02/2024 ADDENDUM STATUS: COMPLETED [facility] Scanned Document - Addendum. ED record 06.02.24 [facility] SCANNED DOCUMENT SIGNATURE NOT REQUIRED Electronically Filed: 06/04/2024 by: ESTHER BUITRAGO MSA 06/04/2024 ADDENDUM STATUS: COMPLETED Reviewed ER note, copied below from [facility]. He was seen for diabetic foot ulcer, started on antibiotics. Would recommend f/u with podiatry here, will place consult. Please inform patient of podiatry consult. Per [facility]: Medical Decision Making Upon entering the room, the patient is in no acute distress and not ill- appearing. Tachycardic at 120, but all other vital signs are within normal limits. On physical exam, there is noticeable erythema and swelling of the right foot. There is also presence of known diabetic foot ulcer at the distal aspect of his first metatarsal. The area is very tender to the touch. Because it appears as though there is a bacterial infection sitting in, will start oral antibiotics. Will obtain x-ray of the right foot to evaluate for any evidence of osteomyelitis. Per my read, no acute bony abnormalities or evidence of osteomyelitis on the right foot x-ray. Start the patient on twice daily doxycycline for 14 days. He states that he is already contacted his primary care physician at the [place] in [place] to work on getting an appointment to further evaluate his diabetic foot ulcer. I did discuss returning to the ER with worsening symptoms or development of high fevers, and he voiced understanding and agreement. Discharge at this time. /viridiana/ YUKO BUENROSTRO Physician Burial Agent Signed: 06/04/2024 10:29 ESTHER PARIS [facility] Jun 02, 2024 10:00 AM NONVA NOTE: LOCAL TITLE: [facility] SELF PRESENTING CARE COORD PLAN STANDARD TITLE: NONVA NOTE DATE OF NOTE: JUN 02, 2024@10:00 ENTRY DATE: JUN 03, 2024@19:02:14 AUTHOR: ANA LILIA AUGUST EXP COSIGNER: URGENCY: STATUS: COMPLETED [facility] SELF PRESENTING CARE COORD PLAN NOTE Has ADDENDA Emergency Notification Intake Date Presenting to the Facility: May Method of Contact: Notified from [facility] worklist Notification ID: [id number] [facility] [place] Referral #: [facility] Hospital Name: Hospital: [facility] Address: [address] City: [place] State: [place] Zip Code: Community Facility Point of Contact: Name: tor george Chief complaint: L03.115 Primary Diagnosis: Disposition Unknown at time of intake note entry 6583 Clinical Review /viridiana/ ANA LILIA AUGUST AREA MECHANIC ON DUTY Signed: 06/03/2024 19:04 Receipt Acknowledged By: 06/04/2024 08:34 /es/ KAY BORGES LOG HAULER [facility] SENIOR INVESTIGATOR ASSOCIATE JAVA DEVELOPER 06/02/2024 ADDENDUM STATUS: COMPLETED [facility] Scanned Document - Addendum. ED record [id number] [facility] SCANNED DOCUMENT SIGNATURE NOT REQUIRED Electronically Filed: 06/04/2024 by: ESTHER BUITRAGO MSA 06/04/2024 ADDENDUM STATUS: COMPLETED was seen in a Community ED. Records uploaded to chart. Please review and follow up as appropriate. /es/ ESTHER BUITRAGO MSA Signed: 06/04/2024 10:11 Receipt Acknowledged By: 06/04/2024 10:31 /es/ OBDULIA ORTIZ RN RN, BSN 06/04/2024 10:28 /es/ YUKO BUENROSTRO Physician Burial Agent 06/04/2024 ADDENDUM STATUS: COMPLETED Reviewed ER note, copied below from [facility]. He was seen for diabetic foot ulcer, started on antibiotics. Would recommend f/u with podiatry here, will place consult. Please inform patient of podiatry consult. Per [facility]: Medical Decision Making Upon entering the room, the patient is in no acute distress and not ill- appearing. Tachycardic at 120, but all other vital signs are within normal limits. On physical exam, there is noticeable erythema and swelling of the right foot. There is also presence of known diabetic foot ulcer at the distal aspect of his first metatarsal. The area is very tender to the touch. Because it appears as though there is a bacterial infection sitting in, will start oral antibiotics. Will obtain x-ray of the right foot to evaluate for any evidence of osteomyelitis. Per my read, no acute bony abnormalities or evidence of osteomyelitis on the right foot x-ray. Start the patient on twice daily doxycycline for 14 days. He states that he is already contacted his primary care physician at the [place] in [place] to work on getting an appointment to further evaluate his diabetic foot ulcer. I did discuss returning to the ER with worsening symptoms or development of high fevers, and he voiced understanding and agreement. Discharge at this time. /es/ YUKO BUENROSTRO Physician Burial Agent Signed: 06/04/2024 10:29 ANA LILIA AUGUST [facility]
--- OUTSIDE RECORDS SUMMARY | 2024-08-21 10:13 | XMS_ITS | Encounter Summary ---
Author Name [facility] [place] Organization [facility] [place] Address [address] [place] [id number] Care Team Providers Care Endoscopy Rn Name Role Phone PORTER, YUKO Primary Care [...] PART A Oct 21, 2020 PART A [id number] [phone] Tabitha DAVIS PATIENT Selected Encounter This section includes the information on record at [place] for the Encounter. Date/Time Encounter Type Encounter Description Reason Pro vider Source Jun 19, 2024 05:15 PM Outpatient Encounter EVENT (HISTORICAL) IHE Encounter Template Text not used by IN [...] 2024 07:00 AM AMBULATORY - NONE [facility] Active, Pending, and Scheduled Orders This section includes a listing of several types of active, pending, and scheduled orders, including clinic medications orders, diagnostic test orders, procedure orders and consult orders; where the start date of the order is 45 days before the date of the Encounter or 45 days after the date of theEncounter. The data comes from all [place] treatment facilities. Test Date/Time Test Type Test Details Facility Name Jun 17, 2024 09:26 AM Consult Order COMMUNITY CARE-IV THERAPY [facility] Offset Press Assistant's [facility] Jun 17, 2024 09:46 AM Consult Order INFECTIOUS DISEASE OUTPT [facility] Jun 17, 2024 10:08 AM Consult Order PODIATRY O UTPT [facility] Social History: Smoking Status (Most current) [...] 30, 2023 11:58 PM VA-TOBACCO NEVER USED [facility] Tobacco Use History This section includes a history of the smoking, or tobacco-related health factors, that were collected on or before the date of the Encounter. The data comes from the [place] facility where the Encounter took place. Date/Time Smoking Status/Tobacco Use Comment Sundar barriga Sep 11, 2022 02:15 PM VA-TOBACCO NEVER USED [facility] Feb 16, 2019 02:36 PM VA-TOBACCO NEVER USED [facility]
--- OUTSIDE RECORDS SUMMARY | 2024-08-21 10:13 | XMS_ITS | Encounter Summary ---
Author Name [facility] Organization [facility] Address [address] [place] [address] Care Team Providers Care Hand Pattern Marker Name Role Phone YUKO BUENROSTRO Primary Care [...] PART A Oct 21, 2020 PART A [id number] [phone] Tabitha DAVIS PATIENT Selected Encounter This section includes the information on record at [place] for the Encounter. Date/Time Encounter Type Encounter Description Reason Provider Source Jun 07, 2024 04:06 PM Outpatient Encounter ADMIN PAT ACTIVTIES (MASNONCT) KAY BORGES Merna Encounter Template Text not used by [place] Plan of Treatment: Future Appointments (+ 6 months) and Future Tests (+/- 45 days) The Plan of Treatment section includes future care activities for the patient from all [place] treatmentfacilities. This section includes future appointments and future orders which are active, pending or scheduled. Future Appointments This section includes appointments that were scheduled to occur 6 months from the date of the Encounter, up to a maximum of 20 appointments. The data comes from all [place] treatment facilities. Appointment Date/Time Appointment Type Appointme nt Facility Name Jun 08, 2024 05:15 PM [facility] Jun 18, 2024 01:00 PM [facility] [place] [facility] Jun 18, 2024 02:00 PM [facility] Jun 24, 2024 07:00 AM AMBULATORY - NONE [facility] Active, Pending, and Scheduled Orders This section includes a listing of several types of active, pending, and scheduled orders, including clinic medications orders, diagnostic test orders, procedure orders and consult orders; where the start date of the order is 45 days before the date of the Encounter or 45 days after the date of theEncounter. The data comes from all [place] treatment facilities. Test Date/Time Test Type Test Details Facility Name Jun 17, 2024 09:26 AM Consult Order COMMUNITY CARE-IV THERAPY [facility] Trans[facility] Jun 17, 2024 09:46 AM Consult Order INFECTIOUS DISEASE OUTPT [facility] Jun 17, 2024 10:08 AM Consult Order PODIATRY O UTPT [facility] Social History: Smoking Status (Most current) and Tobacco Use (All prior to encounter date) This section includes the most current, and the historical, smoking and tobacco- related health factors from the [place] facility where the Encounter took place. Current Smoking Status This section includes the most current smoking, or tobacco-related health factor, from the [place] facility where the Encounter took place. Date/Time Current Smoking Status Comment Randall polanco Sep 30, 2023 11:58 PM VA-TOBACCO NEVER USED [facility] Tobacco Use History This section includes a history of the smoking, or tobacco-related health factors, that were collected on or before the date of the Encounter. The data comes from the [place] facility where the Encounter took place. Date/Time Smoking Status/Tobacco Use Comment F acility Sep 11, 2022 02:15 PM VA-TOBACCO NEVER USED [facility] Feb 16, 2019 02:36 PM VA-TOBACCO NEVER USED [facility] Encounter Notes: All associated encounter notes This section contains the clinical notes associated to the Encounter. Date/Time Encounter Note(s) Provider Source Jun 17, 2024 04:06 PM ADDENDUM: LOCAL TITLE: Addendum STANDARD TITLE: ADDENDUM DATE OF NOTE: JUN 17, 2024@16:06:48 ENTRY DATE: JUN 17, 2024@16:06:49 AUTHOR: SIEWERT,KAY L EXP COSIGNER: URGENCY: STATUS: COMPLETED Community Care Transitions Team Care Coordination Note Admit date: 06/06/24 Discharge date: 06/17/24 Level of Care: acute Primary Diagnosis: Infection of right foot Diabetic foot infection Patient underwent a right second toe amputation with I&D on 06/08 On 06/12 he went back to the OR for further I&D He may need a transmetatarsal amputation eventually. For now patient would like to try wound VAC and antibiotics. Cultures are growing MSSA. Dr. Shubham Strickland recommended IV ertapenem daily for 30 more days PICC placed 06/15 Patient will come to the infusion clinic daily to receive his IV antibiotics Diabetic wound following amputation and I&D Wound care orders have been written by Dr. Neves Patient will follow-up in wound care clinic for further instructions and ordering of outpatient wound VAC Acute kidney injury Renally dose medications Avoid nephrotoxic medications Trend CBC, BMP daily Resolved at time of discharge Chronic atrial fibrillation Patient had been on Eliquis for anticoagulation. It was held for his surgeries. He was on full dose Lovenox Following completion of surgical interventions Eliquis was restarted Patient takes Coreg for rate control. He did have episode of rapid ventricular rate his Coreg was increased to 25 mg twice daily. Diltiazem was also added. Heart rates have been well-controlled. Diltiazem discontinued Patient will continue with Coreg at 25 mg twice daily Diabetes mellitus type 2, HbA1c 9.0% Blood sugars have been well-controlled during this hospitalization Emphasized the importance of maintaining good blood sugar control to promote healing. Discharge Disposition: Home Discharge provider recommends and notes the following: Please review the Discharge Summary for complete details of the care rendered, as well as any necessary or recommended follow up care the patient may require. Hospital records uploaded to [employer] via [employer]. /es/ KAY BORGES INSTRUCTOR PSYCHIATRIC AIDE [facility] SENIOR JAVA J2EE DEVELOPER MACHINE SHOP SPECIALIST Signed: 06/17/2024 16:24 Receipt Acknowledged By: 06/18/2024 09:20 /es/ OBDULIA ORTIZ RN RN, BSN 06/18/2024 12:36 /es/ YUKO BUENROSTRO Physician Filament Wound Parts Fabricator --- Original Document --- 06/06/24 [facility] SELF PRESENTING CARE COORD PLAN NOTE: Emergency Notification Intake Date Presenting to the Facility: May Method of Contact: Notified from ECR worklist Notification ID: [id number] [facility] Referral #: [facility] Name: Hospital: [facility] Address: [address] City: [place] State: [place] Zip Code: Phone : [facility] Point of Contact: Name: Phone: Chief complaint: DIABETIC SORE INCREASE MADE FOOT TWICE THE SIZE Primary Diagnosis: Disposition Admitted Route of Admission: Date of Admission: May Admitting Diagnosis: DIABETIC SORE INCREASE MADE FOOT TWICE THE SIZE Community Care Provider: Confirm Level of Care: 1703 Clinical Review /es/ ANA LILIA AUGUST MEMS DEVICE SCIENTIST ON DUTY Signed: 06/07/2024 16:10 Receipt Acknowledged By: 06/08/2024 08:27 /es/ KAY BORGES INSTRUCTOR PSYCHIATRIC AIDE [facility] SENIOR JAVA J2EE DEVELOPER MACHINE SHOP SPECIALIST 06/08/2024 ADDENDUM STATUS: COMPLETED NOTIFICATION ID: [id number] Comments: 06/08/2024 4:05:24 PM CDT HENNY FRANCOIS PORTAL: VET CONFIRMED IN ES, JLV DOWN, INFO CHECKED, VET INFO CONFIRMED IN ES, FILLED IN MISSING INFO,CHECKED FOR MIDDLE NAME/INITIAL, CHECKED FOR DUPLICATE BOX, CHECKED 24 MONTHS, QUERIED NPI, POPULATED [place] AVAILABILITY. UPDATED ADDRESS ON FACEPLATE TO MATCH JLV, PROVIDER CALLED. SLIGHT ADJUSTMENT TO FACILITY ADDRESS PER ECR, CORRECTED [place] AVAILBILITY ADDRESS TO [place] ADDRESS FACILITES WAS USED. /es/ ABBIE GONZALEZ, INTERNATIONAL OPERATIONS MANAGER Signed: 06/08/2024 17:25 06/06/2024 ADDENDUM STATUS: COMPLETED VistA Imaging Scanned Document - Addendum. ED and H&P records 06/06/2024 [facility] SCANNED DOCUMENT SIGNATURE NOT REQUIRED Electronically Filed: 06/09/2024 by: EARLE BahAdvanced Toy Electric Train Repairer 06/09/2024 ADDENDUM STATUS: COMPLETED Records uploaded via [employer] for review. /es/ EARLE BahAdvanced Toy Electric Train Repairer Signed: 06/09/2024 11:21 Receipt Acknowledged By: 06/09/2024 11:42 /es/ OBDULIA ORTIZ RN RN, BSN 06/09/2024 13:36 /es/ KAY BORGES RN BSN [facility] SENIOR JAVA J2EE DEVELOPER MACHINE SHOP SPECIALIST 06/09/2024 ADDENDUM STATUS: COMPLETED Community Care Transitions Team Care Coordination Note Admission date: 06/06/24 Level of Care: acute Chief Complaint/Dx: presented to the emergency room complaining of pain and redness in his foot. In the emergency room on presentation, the patient was found to have a creatinine of 2.61, up from a normal baseline, procalcitonin of 1.34, white blood cell count of 21.3 and CRP of greater than 320. An MRI of the right foot was obtained which showed significant cellulitis and myositis, as well as concern for a soft tissue abscess. Podiatry was consulted, and the patient is being admitted for IV antibiotics and further care under inpatient status. Diabetic cellulitis with soft tissue abscess of the right foot, failed treatment with outpatient oral antibiotics IDA Leukocytosis Initiate vancomycin, cefepime, and Flagyl Pharmacy to dose vancomycin Podiatry consult, they will see the patient in the morning, will definitely need to go to the OR Initiate IV fluids, suspect renal function to improve with this Renally dose medications Avoid nephrotoxic medications Trend CBC, Procal, and BMP daily NPO after MN in case of intervention today; will reinitiate diet if no plans for OR today Pain control as needed Discharge Plan: TBD Records uploaded to [employer] via [employer]. [facility]charge [facility]. Although appears medically stable for transfer via chart review, neither the patient, nor the patient's parts representative have requested transfer to the [facility], nor are there any beds available at the [facility] for the level of care required. /es/ KAY GREGORY SENIOR JAVA J2EE DEVELOPER MACHINE SHOP SPECIALIST Signed: 06/09/2024 16:09 06/11/2024 ADDENDUM STATUS: COMPLETED Community Care Transitions Team Care Coordination Note Admission date: 06/06/24 Review date: JLV 06/11/24 Level of Care: acute Condition Updates: Shantell Lewis MD - 06/11/2024 9:40 AM CDT: Subjective No acute events overnight. Patient without complaint this morning. He denies significant pain or SOB. He does have a mild cough. Denies chest pain, nausea, vomiting, or diarrhea. Patient seen in conjunction with podiatry this morning. Plan for surgery tomorrow and possible primary closure on Saturday. Diabetic cellulitis with soft tissue abscess of the right foot, failed treatment with outpatient oral antibiotics IDA Leukocytosis Note that cultures are growing MSSA. Switched to ertapenem from vancomycin, cefepime, and flagyl per ID recommendation Appreciate ID assistance Will go back to OR on Tuesday 06/12 with podiatry Renal function improved Renally dose medications Avoid nephrotoxic medications Trend CBC, BMP daily Pain control as needed Discharge Plan: TBD Although appears medically stable for transfer via chart review,neither the patient, nor the patient's parts representative have requested transfer to the [facility], nor are there any beds available at the [facility] for the level of care required. /viridiana/ KAY PARKSN [facility] SENIOR JAVA J2EE DEVELOPER MACHINE SHOP SPECIALIST Signed: 06/11/2024 16:26 06/12/2024 ADDENDUM STATUS: COMPLETED Received message from Janice LUNDY with [facility] [phone]. Karin will need IV antibiotics upon discharge and has agreed to come to infusion center at [facility]. Returned call to Janice. At this time plan is to continue on IV Ertapenum, not sure for how long. Karin is scheduled for another surgery on Saturday, so they will know more then. I offered home IV antibiotics, but Janice stated that Karin would prefer to come to [facility]. Told Janice I would contact her on Saturday to clarify what was needed and DC date after next surgery. /estevan PARKSN [facility] SENIOR JAVA J2EE DEVELOPER MACHINE SHOP SPECIALIST Signed: 06/12/2024 11:51 06/15/2024 ADDENDUM STATUS: COMPLETED Contacted Janice at [phone] and left message asking for update about DC plan and IV antibiotic required. /viridiana/ KAY PARKSN [facility] SENIOR JAVA J2EE DEVELOPER MACHINE SHOP SPECIALIST Signed: 06/15/2024 11:21 06/15/2024 ADDENDUM STATUS: COMPLETED Community Care Transitions Team Care Coordination Note Admission date: 06/06/24 Review date: JLV 06/15/24 Level of Care: acute Condition Updates: Pina Méndez MD - 06/14/2024 10:34 AM CDT: INPATIENT PROGRESS NOTE SUBJECTIVE Patient has no complaints, denies pain. Discussed plan with Dr. Coombs. Plan for wound VAC placement tomorrow. Tissue cultures from his last surgery have not grown any bacteria. Anticipate home this week. Diabetic cellulitis with soft tissue abscess of the right foot, failed treatment with outpatient oral antibiotics IDA Leukocytosis Patient underwent a right second toe amputation with I&D on 06/08 On 06/12 he went back to the OR for further I&D He may need a transmetatarsal amputation eventually. For now patient would like to try wound VAC and antibiotics. Note that cultures are growing MSSA. Switched to ertapenem from vancomycin, cefepime, and flagyl per ID recommendation Appreciate ID assistance Plan is for patient to continue on ertapenem for 4-6 weeks; place PICC line once done with all surgeries for this hospitalization White count has been persistently elevated Beginning to trend downward today Discharge Plan: TBD Although appears medically stable for transfer via chart review,neither the patient, nor the patient's parts representative have requested transfer to the [facility], nor are there any beds available at the [facility] for the level of care required. /viridiana/ KAY GREGORY SENIOR JAVA J2EE DEVELOPER MACHINE SHOP SPECIALIST Signed: 06/15/2024 11:24 06/15/2024 ADDENDUM STATUS: COMPLETED Received return call from Janice LUNDY. He will be on Ertapenem 1 x daily at [facility] and will need a consult for that. It looks like he will also have a wound vac in place upon DC. Janice will discuss with and see what the plan is for wound vac, if he will need home care and call me back. /viridiana/ KAY [facility] SENIOR JAVA J2EE DEVELOPER MACHINE SHOP SPECIALIST Signed: 06/15/2024 12:56 06/15/2024 ADDENDUM STATUS: COMPLETED Received message from Janice [phone] stating that discharging with wound vac is plan, she is still trying to clarify things with wound care, but usually orders are to go to wound clinic 3 x week for dressing changes. also needs a walker and shower chair. Returned call to Janice and explained that Wound VAC takes 48 hours to process and RFS form along with supporting documentation would need to be faxed to me at [phone]. Emailed form to [email or web address]. Sent DME request form to [email or web address] and advised to fill out what is needed, along with OT/ PT education and PT/OT signature, and fax to PT at [facility], . I will follow up on getting consults for wound vac, wound clinic and outpatient IV antibiotic once I receive RFS. /viridiana/ KAY BORGES INSTRUCTOR PSYCHIATRIC AIDE [facility] SENIOR JAVA J2EE DEVELOPER MACHINE SHOP SPECIALIST Signed: 06/15/2024 15:54 06/16/2024 ADDENDUM STATUS: COMPLETED Received message from Nevin. She has faxed forms to PT for walker and shower chair. She discussed wound care with the team and plan is to discharge to home tomorrow without wound vac and to follow up at wound clinic in a few days. Wound VAC may be placed then. Notes in JLV from today state that wound VAC is to stay in place, so contacted Nevin at [phone] and left message asking for call back to clarify. 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 Patient denies nausea vomiting fever chills chest pain calf pain and difficulty breathing. Objective Physical Exam Dermatological examination revealed that picture of the ulceration today prior to the wound VAC which was on when we examined the patient so ordered significant increase in granulation tissue since previous examination on the right foot at the second partial ray amputation site. Labs: White blood cell count today was 10.2 down from 11.5 yesterday. Last Recorded Vitals Temp: [35.9 ?C (96.6 ?F)-37.1 ?C (98.7 ?F)] 35.9 ?C (96.6 ?F) Heart Rate: [91-98] 98 Resp: [16] 16 BP: (120-132)/(82-94) 132/94 Assessment/Plan Principal Problem: Infection of right foot We left the wound VAC in place and we are going to follow-up with the patient next week in podiatry. As an outpatient. Patient to continue IV antibiotics per infectious disease and wound care protocol per Dr. Díaz. Patient was told he must remain nonweightbearing on his right foot and ambulate with knee scooter. Medical management per hospitalist patient can be discharged from hospital as far as podiatry is concerned as long as he has a wound VAC to go home with and antibiotics have been set up for him. /viridiana/ KAY BORGES RN BSN [facility] SENIOR JAVA J2EE DEVELOPER MACHINE SHOP SPECIALIST Signed: 06/16/2024 15:27 06/16/2024 ADDENDUM STATUS: COMPLETED Received return call from Janice. She clarified that Karin will be discharging home tomorrow without wound vac and will need wound clinic consult and consult for daily IV ertapenum at [facility] infusion clinic. FYI to PACT that consults will be needed for DC tomorrow. Notes are in JLV and I will alert PACT again when I have DC Summary. Thank you. /estevan BORGES RN BSN [facility] SENIOR JAVA J2EE DEVELOPER MACHINE SHOP SPECIALIST Signed: 06/16/2024 16:19 Receipt Acknowledged By: 06/17/2024 09:36 /viridiana/ OBDULIA ORTIZ RN RN, BSN 06/17/2024 ADDENDUM STATUS: COMPLETED Contacted Nevin at [phone] and clarified that Karin will also need ID consult (ID is managing IV antibiotic) and podiatry consult for surgery follow up. He does have appts. for wound care and IV medication tomorrow. Updated PACT RN and planned care RN via teams. /viridiana/ KAY BORGES RN BSN [facility] SENIOR JAVA J2EE DEVELOPER MACHINE SHOP SPECIALIST Signed: 06/17/2024 09:37 06/17/2024 ADDENDUM STATUS: COMPLETED consults placed as requested above. /estevan ORTIZ RN RN, BSN Signed: 06/17/2024 09:40 06/06/2024 ADDENDUM STATUS: COMPLETED VistA Imaging Scanned Document - Addendum. [facility] SCANNED DOCUMENT SIGNATURE NOT REQUIRED Electronically Filed: 06/17/2024 by: KAY BORGES RN BSN [facility] SENIOR JAVA J2EE DEVELOPER MACHINE SHOP SPECIALIST KAY BORGES [facility] Jun 16, 2024 04:17 PM ADDENDUM: LOCAL TITLE: Addendum STANDARD TITLE: ADDENDUM DATE OF NOTE: JUN 16, 2024@16:17:09 ENTRY DATE: JUN 16, 2024@16:17:10 AUTHOR: KAY BORGES EXP COSIGNER: URGENCY: STATUS: COMPLETED Received return call from Janice. She clarified that Karin will be discharging home tomorrow without wound vac and will need wound clinic consult and consult for daily IV ertapenum at [facility] outpatient infusion clinic. FYI to PACT that consults will be needed for DC tomorrow. Notes are in JLV and I will alert PACT again when I have DC Summary. Thank you. /es/ KAY MENA [facility] SENIOR JAVA J2EE DEVELOPER MACHINE SHOP SPECIALIST Signed: 06/16/2024 16:19 Receipt Acknowledged By: 06/17/2024 09:36 /es/ OBDULIA ORTIZ RN RN, BSN --- Original Document --- 06/06/24 [facility] PRESENTING CARE COORD PLAN NOTE: Emergency Notification Intake Date Presenting to the Facility: May Method of Contact: Notified from [employer] worklist Notification ID: [id number] [facility] Referral #: [facility] Name: Hospital: [facility] Address: [address] City: [place] State: [place] Zip Code: Phone : [facility] Facility Point of Contact: Name: Phone: Chief complaint: DIABETIC SORE INCREASE MADE FOOT TWICE THE SIZE Primary Diagnosis: Disposition Admitted Route of Admission: Date of Admission: May Admitting Diagnosis: DIABETIC SORE INCREASE MADE FOOT TWICE THE SIZE Community Care Provider: Confirm Level of Care: 1703 Clinical Review /es/ ANA LILIA AUGUST MEMS DEVICE SCIENTIST ON DUTY Signed: 06/07/2024 16:10 Receipt Acknowledged By: 06/08/2024 08:27 /es/ KAY BORGES INSTRUCTOR PSYCHIATRIC AIDE [facility] SENIOR JAVA J2EE DEVELOPER MACHINE SHOP SPECIALIST 06/08/2024 ADDENDUM STATUS: COMPLETED NOTIFICATION ID: [id number] Comments: 06/08/2024 4:05:24 PM CDT HENNY FRANCOIS PORTAL: VET CONFIRMED IN ES, JLV DOWN, INFO CHECKED, VET INFO CONFIRMED IN ES, FILLED IN MISSING INFO,CHECKED FOR MIDDLE NAME/INITIAL, CHECKED FOR DUPLICATE BOX, CHECKED 24 MONTHS, QUERIED NPI, POPULATED VA AVAILABILITY. UPDATED ADDRESS ON FACEPLATE TO MATCH JLV, PROVIDER CALLED. SLIGHT ADJUSTMENT TO FACILITY ADDRESS PER ECR, CORRECTED VA AVAILBILITY ADDRESS TO VE ADDRESS FACILITES WAS USED. /viridiana/ ABBIE GONZALEZ, INTERNATIONAL OPERATIONS MANAGER Signed: 06/08/2024 17:25 06/06/2024 ADDENDUM STATUS: COMPLETED VistA Imaging Scanned Document - Addendum. ED and H&P records 06/06/2024 [facility] SCANNED DOCUMENT SIGNATURE NOT REQUIRED Electronically Filed: 06/09/2024 by: EARLE LONG .TeAdvanced Toy Electric Train Repairer 06/09/2024 ADDENDUM STATUS: COMPLETED Records uploaded via [employer] for review. /viridiana/ EARLE LONG .TeAdvanced Toy Electric Train Repairer Signed: 06/09/2024 11:21 Receipt Acknowledged By: 06/09/2024 11:42 /es/ OBDULIA ORTIZ RN RN, BSN 06/09/2024 13:36 /es/ KAY BORGES INSTRUCTOR PSYCHIATRIC AIDE [facility] SENIOR JAVA J2EE DEVELOPER MACHINE SHOP SPECIALIST 06/09/2024 ADDENDUM STATUS: COMPLETED Community Care Transitions Team Care Coordination Note Admission date: 06/06/24 Level of Care: acute Chief Complaint/Dx: presented to the emergency room complaining of pain and redness in his foot. In the emergency room on presentation, the patient was found to have a creatinine of 2.61, up from a normal baseline, procalcitonin of 1.34, white blood cell count of 21.3 and CRP of greater than 320. An MRI of the right foot was obtained which showed significant cellulitis and myositis, as well as concern for a soft tissue abscess. Podiatry was consulted, and the patient is being admitted for IV antibiotics and further care under inpatient status. Diabetic cellulitis with soft tissue abscess of the right foot, failed treatment with outpatient oral antibiotics IDA Leukocytosis Initiate vancomycin, cefepime, and Flagyl Pharmacy to dose vancomycin Podiatry consult, they will see the patient in the morning, will definitely need to go to the OR Initiate IV fluids, suspect renal function to improve with this Renally dose medications Avoid nephrotoxic medications Trend CBC, Procal, and BMP daily NPO after MN in case of intervention today; will reinitiate diet if no plans for OR today Pain control as needed Discharge Plan: TBD Records uploaded to [employer] via [employer]. Discharge Summary will be uploaded into the [facility] medical record when available. Although appears medically stable for transfer via chart review, neither the patient, nor the patient's parts representative have requested transfer to the [facility], nor are there any beds available at the [facility] for the level of care required. /viridiana/ KAY BORGES RN BSN [facility] SENIOR JAVA J2EE DEVELOPER MACHINE SHOP SPECIALIST Signed: 06/09/2024 16:09 06/11/2024 ADDENDUM STATUS: COMPLETED Community Care Transitions Team Care Coordination Note Admission date: 06/06/24 Review date: JLV 06/11/24 Level of Care: acute Condition Updates: Shantell Lewis MD - 06/11/2024 9:40 AM CDT: Subjective No acute events overnight. Patient without complaint this morning. He denies significant pain or SOB. He does have a mild cough. Denies chest pain, nausea, vomiting, or diarrhea. Patient seen in conjunction with podiatry this morning. Plan for surgery tomorrow and possible primary closure on Saturday. Diabetic cellulitis with soft tissue abscess of the right foot, failed treatment with outpatient oral antibiotics IDA Leukocytosis Note that cultures are growing MSSA. Switched to ertapenem from vancomycin, cefepime, and flagyl per ID recommendation Appreciate ID assistance Will go back to OR on Tuesday 06/12 with podiatry Renal function improved Renally dose medications Avoid nephrotoxic medications Trend CBC, BMP daily Pain control as needed Discharge Plan: TBD Although appears medically stable for transfer via chart review,neither the patient, nor the patient's parts representative have requested transfer to the [facility], nor are there any beds available at the [facility] for the level of care required. /viridiana/ KAY PARKSN [facility] SENIOR JAVA J2EE DEVELOPER MACHINE SHOP SPECIALIST Signed: 06/11/2024 16:26 06/12/2024 ADDENDUM STATUS: COMPLETED Received message from Janice LUNDY with [facility] [phone]. Karin will need IV antibiotics upon discharge and has agreed to come to infusion center at [facility]. Returned call to Janice. At this time plan is to continue on IV Ertapenum, not sure for how long. Karin is scheduled for another surgery on Saturday, so they will know more then. I offered home IV antibiotics, but Janice stated that Karin would prefer to come to [facility]. Told Janice I would contact her on Saturday to clarify what was needed and DC date after next surgery. /viridiana/ [facility]AY [facility]NA [facility] SENIOR JAVA J2EE DEVELOPER MACHINE SHOP SPECIALIST Signed: 06/12/2024 11:51 06/15/2024 ADDENDUM STATUS: COMPLETED Contacted Janice at [phone] and left message asking for update about DC plan and IV antibiotic required. /viridiana/ KAY MENA [facility] SENIOR JAVA J2EE DEVELOPER MACHINE SHOP SPECIALIST Signed: 06/15/2024 11:21 06/15/2024 ADDENDUM STATUS: COMPLETED Community Care Transitions Team Care Coordination Note Admission date: 06/06/24 Review date: JLV 06/15/24 Level of Care: acute Condition Updates: Pina Méndez MD - 06/14/2024 10:34 AM CDT: INPATIENT PROGRESS NOTE SUBJECTIVE Patient has no complaints, denies pain. Discussed plan with Dr. Coombs. Plan for wound VAC placement tomorrow. Tissue cultures from his last surgery have not grown any bacteria. Anticipate home this week. Diabetic cellulitis with soft tissue abscess of the right foot, failed treatment with outpatient oral antibiotics IDA Leukocytosis Patient underwent a right second toe amputation with I&D on 06/08 On 06/12 he went back to the OR for further I&D He may need a transmetatarsal amputation eventually. For now patient would like to try wound VAC and antibiotics. Note that cultures are growing MSSA. Switched to ertapenem from vancomycin, cefepime, and flagyl per ID recommendation Appreciate ID assistance Plan is for patient to continue on ertapenem for 4-6 weeks; place PICC line once done with all surgeries for this hospitalization White count has been persistently elevated Beginning to trend downward today Discharge Plan: TBD Although appears medically stable for transfer via chart review,neither the patient, nor the patient's parts representative have requested transfer to the [facility], nor are there any beds available at the [facility] for the level of care required. /viridiana/ KAY MENA [facility] SENIOR JAVA J2EE DEVELOPER MACHINE SHOP SPECIALIST Signed: 06/15/2024 11:24 06/15/2024 ADDENDUM STATUS: COMPLETED Received return call from Janice LUNDY. He will be on Ertapenem 1 x daily at [facility] and will need a consult for that. It looks like he will also have a wound vac in place upon DC. Janice will discuss with and see what the plan is for wound vac, if he will need home care and call me back. /viridiana/ KAY MENA [facility] SENIOR JAVA J2EE DEVELOPER MACHINE SHOP SPECIALIST Signed: 06/15/2024 12:56 06/15/2024 ADDENDUM STATUS: COMPLETED Received message from Janice [phone] stating that discharging with wound vac is plan, she is still trying to clarify things with wound care, but usually orders are to go to wound clinic 3 x week for dressing changes. also needs a walker and shower chair. Returned call to Janice and explained that Wound VAC takes 48 hours to process and RFS form along with supporting documentation would need to be faxed to me at [phone]. Emailed form to [email or web address]. Sent DME request form to [email or web address] and advised to fill out what is needed, along with OT/ PT education and PT/OT signature, and fax to PT at [facility], . I will follow up on getting consults for wound vac, wound clinic and outpatient IV antibiotic once I receive RFS. /viridiana/ KAY MENA [facility] SENIOR JAVA J2EE DEVELOPER MACHINE SHOP SPECIALIST Signed: 06/15/2024 15:54 06/16/2024 ADDENDUM STATUS: COMPLETED Received message from Nevin. She has faxed forms to PT for walker and shower chair. She discussed wound care with the team and plan is to discharge to home tomorrow without wound vac and to follow up at wound clinic in a few days. Wound VAC may be placed then. Notes in JLV from today state that wound VAC is to stay in place, so contacted Nevin at [phone] and left message asking for call back to clarify. 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 Patient denies nausea vomiting fever chills chest pain calf pain and difficulty breathing. Objective Physical Exam Dermatological examination revealed that picture of the ulceration today prior to the wound VAC which was on when we examined the patient so ordered significant increase in granulation tissue since previous examination on the right foot at the second partial ray amputation site. Labs: White blood cell count today was 10.2 down from 11.5 yesterday. Last Recorded Vitals Temp: [35.9 ?C (96.6 ?F)-37.1 ?C (98.7 ?F)] 35.9 ?C (96.6 ?F) Heart Rate: [91-98] 98 Resp: [16] 16 BP: (120-132)/(82-94) 132/94 Assessment/Plan Principal Problem: Infection of right foot We left the wound VAC in place and we are going to follow-up with the patient next week in podiatry. As an outpatient. Patient to continue IV antibiotics per infectious disease and wound care protocol per Dr. Díaz. Patient was told he must remain nonweightbearing on his right foot and ambulate with knee scooter. Medical management per hospitalist patient can be discharged from hospital as far as podiatry is concerned as long as he has a wound VAC to go home with and antibiotics have been set up for him. /viridiana/ KAY GREGORY SENIOR JAVA J2EE DEVELOPER MACHINE SHOP SPECIALIST Signed: 06/16/2024 15:27 06/17/2024 ADDENDUM STATUS: COMPLETED Contacted Nevin at [phone] and clarified that Karin will also need ID consult (ID is managing IV antibiotic) and podiatry consult for surgery follow up. He does have appts. for wound care and IV medication tomorrow. Updated PACT RN and planned care RN via teams. /viridiana/ KAY BORGES INSTRUCTOR PSYCHIATRIC AIDE [facility] SENIOR JAVA J2EE DEVELOPER MACHINE SHOP SPECIALIST Signed: 06/17/2024 09:37 06/17/2024 ADDENDUM STATUS: UNSIGNED You may not VIEW this UNSIGNED Addendum. KAY BORGES [facility] Jun 09, 2024 11:21 AM ADDENDUM: LOCAL TITLE: Addendum STANDARD TITLE: ADDENDUM DATE OF NOTE: JUN 09, 2024@11:21:13 ENTRY DATE: JUN 09, 2024@11:21:14 AUTHOR: EARLE LONG COSIGNER: URGENCY: STATUS: COMPLETED Records uploaded via [employer] for review. /viridiana/ EARLE LONG ...Advanced Toy Electric Train Repairer Signed: 06/09/2024 11:21 Receipt Acknowledged By: 06/09/2024 11:42 /es/ OBDULIA ORTIZ RN RN, BSN 06/09/2024 13:36 /viridiana/ KAY BORGES INSTRUCTOR PSYCHIATRIC AIDE [facility] SENIOR JAVA J2EE DEVELOPER MACHINE SHOP SPECIALIST --- Original Document --- 06/06/24 [facility] SELF PRESENTING CARE COORD PLAN NOTE: Emergency Notification Intake Date Presenting to the Facility: May Method of Contact: Notified from [employer] worklist Notification ID: [id number] [facility] Referral #: [facility] Hospital Name: Hospital: [facility] Address: [address] City: [place] State: [place] Zip Code: Phone : Community Facility Point of Contact: Name: Phone: Chief complaint: DIABETIC SORE INCREASE MADE FOOT TWICE THE SIZE Primary Diagnosis: Disposition Admitted Route of Admission: Date of Admission: May Admitting Diagnosis: DIABETIC SORE INCREASE MADE FOOT TWICE THE SIZE Community Care Provider: Confirm Level of Care: 1703 Clinical Review /viridiana/ ANA LILIA AUGUST MEMS DEVICE SCIENTIST ON DUTY Signed: 06/07/2024 16:10 Receipt Acknowledged By: 06/08/2024 08:27 /es/ KAY BORGES INSTRUCTOR PSYCHIATRIC AIDE [facility] SENIOR JAVA J2EE DEVELOPER MACHINE SHOP SPECIALIST 06/08/2024 ADDENDUM STATUS: COMPLETED NOTIFICATION ID: [id number] Comments: 06/08/2024 4:05:24 PM CDT HENNY FRANCOIS PORTAL: VET CONFIRMED IN ES, JLV DOWN, INFO CHECKED, VET INFO CONFIRMED IN ES, FILLED IN MISSING INFO,CHECKED FOR MIDDLE NAME/INITIAL, CHECKED FOR DUPLICATE BOX, CHECKED 24 MONTHS, QUERIED NPI, POPULATED [place] AVAILABILITY. UPDATED ADDRESS ON FACEPLATE TO MATCH JLV, PROVIDER CALLED. SLIGHT ADJUSTMENT TO FACILITY ADDRESS PER ECR, CORRECTED VA AVAILBILITY ADDRESS TO VETS ADDRESS FACILITES WAS USED. /viridiana/ ABBIE GONZALEZ, INTERNATIONAL OPERATIONS MANAGER Signed: 06/08/2024 17:25 06/06/2024 ADDENDUM STATUS: COMPLETED VistA Imaging Scanned Document - Addendum. ED and H&P records 06/06/2024 [facility] SCANNED DOCUMENT SIGNATURE NOT REQUIRED Electronically Filed: 06/09/2024 by: EARLE LONG ..AbelAdvanced Toy Electric Train Repairer EARLE LONG [facility] Jun 06, 2024 10:00 AM NONVA NOTE: LOCAL TITLE: [facility] SELF PRESENTING CARE COORD PLAN STANDARD TITLE: NONVA NOTE DATE OF NOTE: JUN 06, 2024@10:00 ENTRY DATE: JUN 07, 2024@16:08:01 AUTHOR: ANA LILIA AUGUST EXP COSIGNER: URGENCY: STATUS: COMPLETED [facility] SELF PRESENTING CARE COORD PLAN NOTE Has ADDENDA Emergency Notification Intake Date Presenting to the Facility: May Method of Contact: Notified from ECR worklist Notification ID: [id number] [facility] Referral #: [facility] Name: [facility]: [facility] Address: [address] [facility] City: [place] State: [place] Zip Code: Phone : Community Facility Point of Contact: Name: Phone: Chief complaint: DIABETIC SORE INCREASE MADE FOOT TWICE THE SIZE Primary Diagnosis: Disposition Admitted Route of Admission: Date of Admission: May Admitting Diagnosis: DIABETIC SORE INCREASE MADE FOOT TWICE THE SIZE Community Care Provider: Confirm Level of Care: 1703 Clinical Review /es/ ANA LILIA AUGUST MEMS DEVICE SCIENTIST ON DUTY Signed: 06/07/2024 16:10 Receipt Acknowledged By: 06/08/2024 08:27 /es/ KAY BORGES INSTRUCTOR PSYCHIATRIC AIDE [facility] SENIOR JAVA J2EE DEVELOPER MACHINE SHOP SPECIALIST 06/08/2024 ADDENDUM STATUS: COMPLETED NOTIFICATION ID: [id number] Comments: 06/08/2024 4:05:24 PM CDT HENNY FRANCOIS PORTAL: VET CONFIRMED IN ES, JLV DOWN, INFO CHECKED, VET INFO CONFIRMED IN ES, FILLED IN MISSING INFO,CHECKED FOR MIDDLE NAME/INITIAL, CHECKED FOR DUPLICATE BOX, CHECKED 24 MONTHS, QUERIED NPI, POPULATED VA AVAILABILITY. UPDATED ADDRESS ON FACEPLATE TO MATCH JLV, PROVIDER CALLED. SLIGHT ADJUSTMENT TO FACILITY ADDRESS PER ECR, CORRECTED VA AVAILBILITY ADDRESS TO VE ADDRESS FACILITES WAS USED. /viridiana/ ABBIE GONZALEZ, INTERNATIONAL OPERATIONS MANAGER Signed: 06/08/2024 17:25 06/06/2024 ADDENDUM STATUS: COMPLETED VistA Imaging Scanned Document - Addendum. ED and H&P records 06/06/2024 [facility] SCANNED DOCUMENT SIGNATURE NOT REQUIRED Electronically Filed: 06/09/2024 by: EARLE LONG .TeAdvanced Toy Electric Train Repairer 06/09/2024 ADDENDUM STATUS: COMPLETED Records uploaded via [employer] for review. /viridiana/ EARLE LONG .TeAdvanced Toy Electric Train Repairer Signed: 06/09/2024 11:21 Receipt Acknowledged By: 06/09/2024 11:42 /viridiana/ OBDULIA ORTIZ RN RN, BSN 06/09/2024 13:36 /viridiana/ KAY BORGES INSTRUCTOR PSYCHIATRIC AIDE [facility] SENIOR JAVA J2EE DEVELOPER MACHINE SHOP SPECIALIST 06/09/2024 ADDENDUM STATUS: COMPLETED Community Care Transitions Team Care Coordination Note Admission date: 06/06/24 Level of Care: acute Chief Complaint/Dx: presented to the emergency room complaining of pain and redness in his foot. In the emergency room on presentation, the patient was found to have a creatinine of 2.61, up from a normal baseline, procalcitonin of 1.34, white blood cell count of 21.3 and CRP of greater than 320. An MRI of the right foot was obtained which showed significant cellulitis and myositis, as well as concern for a soft tissue abscess. Podiatry was consulted, and the patient is being admitted for IV antibiotics and further care under inpatient status. Diabetic cellulitis with soft tissue abscess of the right foot, failed treatment with outpatient oral antibiotics IDA Leukocytosis Initiate vancomycin, cefepime, and Flagyl Pharmacy to dose vancomycin Podiatry consult, they will see the patient in the morning, will definitely need to go to the OR Initiate IV fluids, suspect renal function to improve with this Renally dose medications Avoid nephrotoxic medications Trend CBC, Procal, and BMP daily NPO after MN in case of intervention today; will reinitiate diet if no plans for OR today Pain control as needed Discharge Plan: TBD Records uploaded to [employer] via [employer]. Discharge Summary will be uploaded into the [facility] medical record when available. Although appears medically stable for transfer via chart review, neither the patient, nor the patient's parts representative have requested transfer to the [facility], nor are there any beds available at the [facility] for the level of care required. /viridiana/ KAY BORGES RN BSN [facility] SENIOR JAVA J2EE DEVELOPER MACHINE SHOP SPECIALIST Signed: 06/09/2024 16:09 06/11/2024 ADDENDUM STATUS: COMPLETED Community Care Transitions Team Care Coordination Note Admission date: 06/06/24 Review date: JLV 06/11/24 Level of Care: acute Condition Updates: Shantell Lewis MD - 06/11/2024 9:40 AM CDT: Subjective No acute events overnight. Patient without complaint this morning. He denies significant pain or SOB. He does have a mild cough. Denies chest pain, nausea, vomiting, or diarrhea. Patient seen in conjunction with podiatry this morning. Plan for surgery tomorrow and possible primary closure on Saturday. Diabetic cellulitis with soft tissue abscess of the right foot, failed treatment with outpatient oral antibiotics IDA Leukocytosis Note that cultures are growing MSSA. Switched to ertapenem from vancomycin, cefepime, and flagyl per ID recommendation Appreciate ID assistance Will go back to OR on Tuesday 06/12 with podiatry Renal function improved Renally dose medications Avoid nephrotoxic medications Trend CBC, BMP daily Pain control as needed Discharge Plan: TBD Although appears medically stable for transfer via chart review,neither the patient, nor the patient's parts representative have requested transfer to the [facility], nor are there any beds available at the [facility] for the level of care required. /viridiana/ KAY BORGES INSTRUCTOR PSYCHIATRIC AIDE [facility] SENIOR JAVA J2EE DEVELOPER MACHINE SHOP SPECIALIST Signed: 06/11/2024 16:26 06/12/2024 ADDENDUM STATUS: COMPLETED Received message from Janice LUNDY with [facility] [phone]. Karin will need IV antibiotics upon discharge and has agreed to come to infusion center at [facility]. Returned call to Janice. At this time plan is to continue on IV Ertapenum, not sure for how long. Karin is scheduled for another surgery on Saturday, so they will know more then. I offered home IV antibiotics, but Janice stated that Karin would prefer to come to [facility]. Told Janice I would contact her on Saturday to clarify what was needed and DC date after next surgery. /viridiana/ KAY PARKSN [facility] SENIOR JAVA J2EE DEVELOPER MACHINE SHOP SPECIALIST Signed: 06/12/2024 11:51 06/15/2024 ADDENDUM STATUS: COMPLETED Contacted Janice at [phone] and left message asking for update about DC plan and IV antibiotic required. /viridiana/ KAY BORGES RN BSN [facility] SENIOR JAVA J2EE DEVELOPER MACHINE SHOP SPECIALIST Signed: 06/15/2024 11:21 06/15/2024 ADDENDUM STATUS: COMPLETED Community Care Transitions Team Care Coordination Note Admission date: 06/06/24 Review date: JLV 06/15/24 Level of Care: acute Condition Updates: Pina Méndez MD - 06/14/2024 10:34 AM CDT: INPATIENT PROGRESS NOTE SUBJECTIVE Patient has no complaints, denies pain. Discussed plan with Dr. Coombs. Plan for wound VAC placement tomorrow. Tissue cultures from his last surgery have not grown any bacteria. Anticipate home this week. Diabetic cellulitis with soft tissue abscess of the right foot, failed treatment with outpatient oral antibiotics IDA Leukocytosis Patient underwent a right second toe amputation with I&D on 06/08 On 06/12 he went back to the OR for further I&D He may need a transmetatarsal amputation eventually. For now patient would like to try wound VAC and antibiotics. Note that cultures are growing MSSA. Switched to ertapenem from vancomycin, cefepime, and flagyl per ID recommendation Appreciate ID assistance Plan is for patient to continue on ertapenem for 4-6 weeks; place PICC line once done with all surgeries for this hospitalization White count has been persistently elevated Beginning to trend downward today Discharge Plan: TBD Although appears medically stable for transfer via chart review,neither the patient, nor the patient's parts representative have requested transfer to the [facility], nor are there any beds available at the [facility] for the level of care required. /viridiana/ KAY MENA [facility] SENIOR JAVA J2EE DEVELOPER MACHINE SHOP SPECIALIST Signed: 06/15/2024 11:24 06/15/2024 ADDENDUM STATUS: COMPLETED Received return call from Janice LUNDY. He will be on Ertapenem 1 x daily at [facility] and will need a consult for that. It looks like he will also have a wound vac in place upon DC. Janice will discuss with and see what the plan is for wound vac, if he will need home care and call me back. /viridiana/ KAY MENA [facility] SENIOR JAVA J2EE DEVELOPER MACHINE SHOP SPECIALIST Signed: 06/15/2024 12:56 06/15/2024 ADDENDUM STATUS: COMPLETED Received message from Janice [phone] stating that discharging with wound vac is plan, she is still trying to clarify things with wound care, but usually orders are to go to wound clinic 3 x week for dressing changes. also needs a walker and shower chair. Returned call to Janice and explained that Wound VAC takes 48 hours to process and RFS form along with supporting documentation would need to be faxed to me at [phone]. Emailed form to [email or web address]. Sent DME request form to [email or web address] and advised to fill out what is needed, along with OT/ PT education and PT/OT signature, and fax to PT at [facility], . I will follow up on getting consults for wound vac, wound clinic and outpatient IV antibiotic once I receive RFS. /viridiana/ KAY BORGES INSTRUCTOR PSYCHIATRIC AIDE [facility] SENIOR JAVA J2EE DEVELOPER MACHINE SHOP SPECIALIST Signed: 06/15/2024 15:54 06/16/2024 ADDENDUM STATUS: COMPLETED Received message from Nevin. She has faxed forms to PT for walker and shower chair. She discussed wound care with the team and plan is to discharge to home tomorrow without wound vac and to follow up at wound clinic in a few days. Wound VAC may be placed then. Notes in JLV from today state that wound VAC is to stay in place, so contacted Nevin at [phone] and left message asking for call back to clarify. 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 Patient denies nausea vomiting fever chills chest pain calf pain and difficulty breathing. Objective Physical Exam Dermatological examination revealed that picture of the ulceration today prior to the wound VAC which was on when we examined the patient so ordered significant increase in granulation tissue since previous examination on the right foot at the second partial ray amputation site. Labs: White blood cell count today was 10.2 down from 11.5 yesterday. Last Recorded Vitals Temp: [35.9 ?C (96.6 ?F)-37.1 ?C (98.7 ?F)] 35.9 ?C (96.6 ?F) Heart Rate: [91-98] 98 Resp: [16] 16 BP: (120-132)/(82-94) 132/94 Assessment/Plan Principal Problem: Infection of right foot We left the wound VAC in place and we are going to follow-up with the patient next week in podiatry. As an outpatient. Patient to continue IV antibiotics per infectious disease and wound care protocol per Dr. Díaz. Patient was told he must remain nonweightbearing on his right foot and ambulate with knee scooter. Medical management per hospitalist patient can be discharged from hospital as far as podiatry is concerned as long as he has a wound VAC to go home with and antibiotics have been set up for him. /viridiana/ KAY BORGES RN BSN [facility] SENIOR JAVA J2EE DEVELOPER MACHINE SHOP SPECIALIST Signed: 06/16/2024 15:27 06/16/2024 ADDENDUM STATUS: COMPLETED Received return call from Janice. She clarified that Karin will be discharging home tomorrow without wound vac and will need wound clinic consult and consult for daily IV ertapenum at [facility] infusion clinic. FYI to PACT that consults will be needed for DC tomorrow. Notes are in JLV and I will alert PACT again when I have DC Summary. Thank you. /viridiana/ KAY BORGES RN BSN [facility] SENIOR JAVA J2EE DEVELOPER MACHINE SHOP SPECIALIST Signed: 06/16/2024 16:19 Receipt Acknowledged By: 06/17/2024 09:36 /viridiana/ OBDULIA ORTIZ RN RN, BSN 06/17/2024 ADDENDUM STATUS: COMPLETED Contacted Nevin at [phone] and clarified that Karin will also need ID consult (ID is managing IV antibiotic) and podiatry consult for surgery follow up. He does have appts. for wound care and IV medication tomorrow. Updated PACT RN and planned care RN via teams. /viridiana/ KAY BORGES RN BSN [facility] SENIOR JAVA J2EE DEVELOPER MACHINE SHOP SPECIALIST Signed: 06/17/2024 09:37 06/17/2024 ADDENDUM STATUS: COMPLETED consults placed as requested above. /viridiana/ OBDULIA ORTIZ RN RN, BSN Signed: 06/17/2024 09:40 06/17/2024 ADDENDUM STATUS: COMPLETED Community Care Transitions Team Care Coordination Note Admit date: 06/06/24 Discharge date: 06/17/24 Level of Care: acute Primary Diagnosis: Infection of right foot Diabetic foot infection Patient underwent a right second toe amputation with I&D on 06/08 On 06/12 he went back to the OR for further I&D He may need a transmetatarsal amputation eventually. For now patient would like to try wound VAC and antibiotics. Cultures are growing MSSA. Dr. Shubham Strickland recommended IV ertapenem daily for 30 more days PICC placed 06/15 Patient will come to the infusion clinic daily to receive his IV antibiotics Diabetic wound following amputation and I&D Wound care orders have been written by Dr. Neves Patient will follow-up in wound care clinic for further instructions and ordering of outpatient wound VAC Acute kidney injury Renally dose medications Avoid nephrotoxic medications Trend CBC, BMP daily Resolved at time of discharge Chronic atrial fibrillation Patient had been on Eliquis for anticoagulation. It was held for his surgeries. He was on full dose Lovenox Following completion of surgical interventions Eliquis was restarted Patient takes Coreg for rate control. He did have episode of rapid ventricular rate his Coreg was increased to 25 mg twice daily. Diltiazem was also added. Heart rates have been well-controlled. Diltiazem discontinued Patient will continue with Coreg at 25 mg twice daily Diabetes mellitus type 2, HbA1c 9.0% Blood sugars have been well-controlled during this hospitalization Emphasized the importance of maintaining good blood sugar control to promote healing. Discharge Disposition: Home Discharge provider recommends and notes the following: Please review the Discharge Summary for complete details of the care rendered, as well as any necessary or recommended follow up care the patient may require. Hospital records uploaded to [facility] via [employer]. /es/ KAY BORGES RN BSN [facility] SENIOR JAVA J2EE DEVELOPER MACHINE SHOP SPECIALIST Signed: 06/17/2024 16:24 Receipt Acknowledged By: * AWAITING SIGNATURE * OBDULIA ORTIZ * AWAITING SIGNATURE * YUKO BUENROSTRO 06/06/2024 ADDENDUM STATUS: COMPLETED VistA Imaging Scanned Document - Addendum. [facility] SCANNED DOCUMENT SIGNATURE NOT REQUIRED Electronically Filed: 06/17/2024 by: KAY PARKSN [facility] SENIOR JAVA J2EE DEVELOPER MACHINE SHOP SPECIALIST ANA LILIA [facility]
--- OUTSIDE RECORDS SUMMARY | 2024-08-21 10:13 | XMS_ITS | Encounter Summary ---
Author Name [place] Organization [place] Address [address] [place] [address] Care Team Providers Care Flour Inspector Name Role Phone PORTER, YUKO Primary Care [...] PART A Oct 21, 2020 PART A [id number] [phone] Tabitha DAVIS PATIENT Selected Encounter This section includes the information on record at [place] for the Encounter. Date/Time Encounter Type Encounter Description Reason Pro vider Source Jun 19, 2024 02:17 PM Outpatient Encounter COMMUNITY CARE CONSULT IHE Encounter Template Text not used by [place] Plan of Treatment: Future Appointments (+ 6 months) and Future Tests (+/- 45 days) The Plan of Treatment section includes future care activities for the patient from all [place] treatmentfacilities. This section includes future appointments and future orders which are active, pending or scheduled. Future Appointments This section includes appointments that were scheduled to occur 6 months from the date of the Encounter, up to a maximum of 20 appointments. The data comes from all [place] treatment facilities. Appointment Date/Time Appointment Type Appointme nt Facility Name Jun 24, 2024 07:00 AM AMBULATORY - NONE [facility] Active, Pending, and Scheduled Orders This section includes a listing of several types of active, pending, and scheduled orders, including clinic medications orders, diagnostic test orders, procedure orders and consult orders; where the start date of the order is 45 days before the date of the Encounter or 45 days after the date of theEncounter. The data comes from all [place] treatment facilities. Test Date/Time Test Type Test Details Facility Name Jun 17, 2024 09:26 AM Consult Order COMMUNITY CARE-IV THERAPY Cons Hospital Insurance Clerk's Choice [facility] Jun 17, 2024 09:46 AM Consult Order INFECTIOUS DISEASE OUTPT Cons Hospital Insurance Clerk's [facility] Jun 17, 2024 10:08 AM Consult Order [facility]OD[facility]ATRY O [facility] Social History: Smoking Status (Most current) and Tobacco Use (All prior to encounter date) This section includes the most current, and the historical, smoking and tobacco- related health factors from the [place] facility where the Encounter took place. Current Smoking Status This section includes the most current smoking, or tobacco-related health factor, from the [place] facility where the Encounter took place. Date/Time Current Smoking Status Comment Randall polanco Sep 30, 2023 11:58 PM VA-TOBACCO NEVER USED [facility] Tobacco Use History This section includes a history of the smoking, or tobacco-related health factors, that were collected on or before the date of the Encounter. The data comes from the [place] facility where the Encounter took place. Date/Time Smoking Status/Tobacco Use Comment Sundar linus Sep 11, 2022 02:15 PM VA-TOBACCO NEVER USED [facility] Feb 16, 2019 02:36 PM VA-TOBACCO NEVER USED [facility] Encounter Notes: All associated encounter notes This section contains the clinical notes associated to the Encounter. Date/Time Encounter Note(s) Provider Source Jun 19, 2024 02:17 PM NONVA NOTE: LOCAL TITLE: COMMUNITY CARE-CARE COORDINATION PLAN NOTE STANDARD TITLE: NONVA NOTE DATE OF NOTE: JUN 19, 2024@14:17 ENTRY DATE: JUN 19, 2024@14:17:12 AUTHOR: BELLA METZGER COSIGNER: URGENCY: STATUS: COMPLETED COMMUNITY CARE-CARE COORDINATION PLAN NOTE Has ADDENDA RUTH ANN turcios from Riya at [facility]. They received some [place] paperwork. She has filled out the paperwork and ariane fax it to the [facility] along with the form they filled out for the [employer]. She will fax it to the [place] fax number [phone]. /es/ BELLA METZGER PROJECT CONTROLLER RESIN MAKER ENDODONTIST Signed: 06/19/2024 14:21 06/19/2024 ADDENDUM STATUS: UNSIGNED You may not VIEW this UNSIGNED Addendum. BELLA METZGER [facility]
--- OUTSIDE RECORDS SUMMARY | 2024-08-21 10:13 | XMS_ITS | Encounter Summary ---
Author Name [place] Address [address] [place] [id number] Care Team Providers Care Director Voice Name Role Phone PORTER YUKO Primary Care [...] PART A Oct 21, 2020 PART A [id number] [phone] Tabitha DAVIS PATIENT Selected Encounter This section includes the information on record at [place] for the Encounter. Date/Time Encounter Type Encounter Description Reason Pro vider Source Jun 25, 2024 11:17 AM Outpatient Encounter COMMUNITY CARE CONSULT IHE Encounter Template Text not used by [place] Plan of Treatment: Future Appointments (+ 6 months) and Future Tests (+/- 45 days) The Plan of Treatment section includes future care activities for the patient from all [place] treatmentfacilities. This section includes future appointments and [...] of theEncounter. The data comes from all [place] treatment facilities. Test Date/Time Test Type Test Details Facility Name Jun 17, 2024 09:26 AM Consult Order COMMUNITY CARE-IV THERAPY Cons Thermodynamic Physicist's Choice [facility] Jun 17, 2024 09:46 AM Consult Order INFECTIOUS DISEASE OUTPT Cons Thermodynamic Physicist's Choice [facility] Jun 17, 2024 10:08 AM Consult Order PODIATRY O UTPT Cons Thermodynamic Physicist's [facility] Social History: Smoking Status (Most current) and Tobacco Use (All prior to encounter date) This section includes the most current, and the historical, smoking and tobacco- related health factors from the [place] facility where the Encounter took place. Current Smoking Status This section includes the most current smoking, or tobacco-related health factor, from the [place] facility where the Encounter took place. Date/Time Current Smoking Status Comment Facil ity Sep 30, 2023 11:58 PM VA-TOBACCO NEVER USED [facility] Tobacco Use History This section includes a history of the smoking, or tobacco-related health factors, that were collected on or before the date of the Encounter. The data comes from the [place] facility where the Encounter took place. Date/Time Smoking Status/Tobacco Use Comment F acility Sep 11, 2022 02:15 PM VA-TOBACCO NEVER USED [facility] Feb 16, 2019 02:36 PM VA-TOBACCO NEVER USED [facility] Encounter Notes: All associated encounter notes This section contains the clinical notes associated to the Encounter. Date/Time Encounter Note(s) Provider Source Jun 25, 2024 11:17 AM NONVA NOTE: LOCAL TITLE: COMMUNITY CARE-CARE COORDINATION PLAN NOTE STANDARD TITLE: NONVA NOTE DATE OF NOTE: JUN 25, 2024@11:17 ENTRY DATE: JUN 25, 2024@11:17:13 AUTHOR: NINI HANEY COSIGNER: URGENCY: STATUS: COMPLETED COMMUNITY CARE-CARE COORDINATION PLAN NOTE Has ADDENDA Receieved phone call from: Name: Rocco MERIDA Office: [facility] Address: [address] City: [place] State: [place] He was asking about the wound vac and I shared with him that it was ordered and to be delivered to the . Rocco mentioned that in need of home care for dressing changes and then wound vac once that is placed. He said Janice LUNDY/EUFEMIA [phone] would fax wound care orders to the [facility]. I told Rocco 's provider will need to place skilled consult once wound orders received. Rocco said the orders are for dressing changes and then once vac placed--wound vac orders. Rocco said vet will continue in wound clinic at least 1x/week. I then received phone call from Janice LUNDY/EUFEMIA [phone]. I asked her to fax the wound orders to provider at [phone] and she said she would. Janice also mentioned to me that [place] was thinking of HBO for and wondered if that is covered thru the wound care consult. I shared with Janice I would notify Jennifer Metzger RN who has been working with [facility] for 's care. Janice also mentionied that she may reach out to Jennifer to discuss. /es/ Nini Haney BSN RN CRRN Tank Truck Milk Receiver Signed: 06/25/2024 11:49 Receipt Acknowledged By: 06/25/2024 11:54 /es/ ROSEMARY WALTER PA-C Internal Medicine (Primary Care) for YUKO BUENROSTRO 06/25/2024 16:11 /es/ JENNIFER METZGER CLINIC MD ASSOCIATE ACCT EXEC ALCOHOLIC COUNSELOR 06/25/2024 15:37 /es/ OBDULIA ORTIZ RN RN, BSN 06/25/2024 ADDENDUM STATUS: COMPLETED RFS FORM faxed to [facility] at fax [phone] , with request for RFS FORM to be filled out to request a consult for Hyperbaric Treatment and fax back to [facility] fax # [phone]. /es/ JENNIFER METZGER CLINIC MD ASSOCIATE ACCT EXEC ALCOHOLIC COUNSELOR Signed: 06/25/2024 12:05 06/29/2024 ADDENDUM STATUS: COMPLETED Late entry - Jun at 10:31am. Steve turcios from Janice Technical Communicator PH:[phone] at [facility]. Their wound care clinic has been talking about him needing Hyperbaric care/HBO Treatments. Has this been approved or do we need to start that approval process. We started him on Home Infusion and not sure if he will continue IV home infusion or if he starts HBO he will do the Infusions at the clinic. Requesting call back to PH:[phone]. /viridiana/ JENNIFER PARKSN ACCT EXEC ALCOHOLIC COUNSELOR Signed: 06/29/2024 08:23 06/29/2024 ADDENDUM STATUS: COMPLETED CALL to Janice in Social Work at [facility] [phone]. Left vm msg to have the RFS FORM filled out by their Provider requesting HBO Tx and fax the form back to [facility] CC Fax line at [phone]. /viridiana/ JENNIFER PARKSN ACCT EXEC ALCOHOLIC COUNSELOR Signed: 06/29/2024 10:12 06/29/2024 ADDENDUM STATUS: COMPLETED Call back from Janice Technical Communicator at [facility]. Her direct fax number is [phone]. RFS faxed to her fax number. She will request wound care Provider to fill out RFS FORM for HBO Tx. /viridiana/ JENNIFER MENA ACCT EXEC ALCOHOLIC COUNSELOR Signed: 06/29/2024 10:20 06/30/2024 ADDENDUM STATUS: COMPLETED VM msg from Janice Technical Communicator at [facility] PH:[phone]. Wound Care did receive his wound vac, are they able to go ahead and place it. Could you give me a call back. Call back to Janice and informed her wound vac is placed per their Wound Care Provider. [place] is the payer source for the equipment. Janice states she will inform the Wound Care Clinic to go ahead and place the wound vac. Informed Janice the Hyperbaric RFS was received and uploaded to the [facility]'s chart this am and his VA PCP was tagged to the request. /viridiana/ JENNIFER PARKSN ACCT EXEC ALCOHOLIC COUNSELOR Signed: 06/30/2024 10:11 NINI HANEY [facility]
--- OUTSIDE RECORDS SUMMARY | 2024-08-21 10:13 | XMS_ITS | Encounter Summary ---
Author Name Department of [place] Organization [place] Address [address] [place] [address] Care Team Providers Care Residential Life Director Name Role Phone YUKO BUENROSTRO Primary Care [...] PART A Oct 21, 2020 PART A [id number] [phone] Tabitha DAVIS PATIENT Selected Encounter This section includes the information on record at [place] for the Encounter. Date/Time Encounter Type Encounter Description Reason Pro vider Source Jun 18, 2024 12:00 PM Outpatient Encounter PRIMARY CARE/MEDICINE IHE Encounter Template Text not used by [place] Plan of Treatment: Future Appointments (+ 6 months) and Future Tests (+/- 45 days) The Plan of Treatment section includes future care activities for the patient from all [place] treatmentfacilities. This section includes future appointments and future orders which are active, pending or scheduled. Future Appointments This section includes appointments that were scheduled to occur 6 months from the date of the Encounter, up to a maximum of 20 appointments. The data comes from all [place] treatment facilities. Appointment Date/Time Appointment Type Appointme nt Facility Name Jun 24, 2024 07:00 [facility] Jul 07, 2024 02:30 PM AMBULATORY - NONE [facility] Jul 13, 2024 11:30 AM AMBULATORY - NONE [facility] Jul 16, 2024 01:45 PM AMBULATORY - NONE [facility] Jul 17, 2024 07:00 AM AMBULATORY - NONE [facility] Social History: Smoking Status (Most current) and Tobacco Use (All prior to encounter date) This section includes the most current, and the historical, smoking and tobacco- related health factors from the [place] facility where the Encounter took place. Current Smoking Status This section includes the most current smoking, or tobacco-related health factor, from the [place] facility where the Encounter took place. Date/Time Current Smoking Status Comment Facil ity Sep 30, 2023 11:58 PM VA-TOBACCO NEVER USED [facility] Tobacco Use History This section includes a history of the smoking, or tobacco-related health factors, that were collected on or before the date of the Encounter. The data comes from the [place] facility where the Encounter took place. Date/Time Smoking Status/Tobacco Use Comment F acility Sep 11, 2022 02:15 PM VA-TOBACCO NEVER USED [facility] Feb 16, 2019 02:36 PM VA-TOBACCO NEVER USED [facility] Encounter Notes: All associated encounter notes This section contains the clinical notes associated to the Encounter. Date/Time Encounter Note(s) Provider Source Jun 18, 2024 12:00 PM NONVA CONSULT: LOCAL TITLE: COMMUNITY CARE CONSULT RESULT WOUND CARE PC STANDARD TITLE: NONVA CONSULT DATE OF NOTE: JUN 18, 2024@12:00 ENTRY DATE: JUN 24, 2024@17:34:14 AUTHOR: SARA WILLIAMSON EXP COSIGNER: URGENCY: STATUS: COMPLETED VistA Imaging - Scanned Document SCANNED DOCUMENT SIGNATURE NOT REQUIRED Electronically Filed: 06/24/2024 by: SARA WILLIAMSON STAFF NURSE SARA WILLIAMSON [facility]
--- OUTSIDE RECORDS SUMMARY | 2024-08-21 10:13 | XMS_ITS | Encounter Summary ---
Author Name Department [place] Organization [place] Address [address] [place] [address] Care Team Providers Care Product Management Specialist Name Role Phone YUKO BUENROSTRO Primary Care [...] PART A Oct 21, 2020 PART A [id number] [phone] Tabitha DAVIS PATIENT Selected Encounter This section includes the information on record at [place] for the Encounter. Date/Time Encounter Type Encounter Description Reason Pro vider Source Jun 24, 2024 12:24 PM Outpatient Encounter COMMUNITY CARE CONSULT IHE Encounter Template Text not used by [place] Plan of Treatment: Future Appointments (+ 6 [...] of theEncounter. The data comes from all [place] treatment facilities. Test Date/Time Test Type Test Details Facility Name Jun 17, 2024 09:26 AM Consult Order COMMUNITY CARE-IV THERAPY Cons Lime Kiln Operator's Choice [facility] Jun 17, 2024 09:46 AM Consult Order INFECTIOUS DISEASE OUTPT Cons [employer] Operator's Choice [facility] Jun 17, 2024 10:08 AM Consult Order PODIATRY O UTPT Cons [employer] Operator's [facility] Social History: Smoking Status (Most current) and Tobacco Use (All prior to encounter date) This section includes the most current, and the historical, smoking and tobacco- related health factors from the [place] facility where the Encounter took place. Current Smoking Status This section includes the most current smoking, or tobacco-related health factor, from the [place] facility where the Encounter took place. Date/Time Current Smoking Status Comment Facil ity Sep 30, 2023 11:58 PM VA-TOBACCO NEVER USED [facility] Tobacco Use History This section includes a history of the smoking, or tobacco-related health factors, that were collected on or before the date of the Encounter. The data comes from the [place] facility where the Encounter took place. Date/Time Smoking Status/Tobacco Use Comment F acility Sep 11, 2022 02:15 PM VA-TOBACCO NEVER USED [facility] Feb 16, 2019 02:36 PM VA-TOBACCO NEVER USED [facility] Encounter Notes: All associated encounter notes This section contains the clinical notes associated to the Encounter. Date/Time Encounter Note(s) Provider Source Jun 24, 2024 12:36 PM HOME HEALTH NOTE: LOCAL TITLE: [facility] HOME INFUSION THERAPY STANDARD TITLE: HOME HEALTH NOTE DATE OF NOTE: JUN 24, 2024@12:36 ENTRY DATE: JUN 24, 2024@12:36:17 AUTHOR: NINI IVORY COSIGNER: URGENCY: STATUS: COMPLETED Home IV request received from: Name/Title: Provider: Amairani Strickland MD, Nevin LUNDY Institution: [facility] Fax or e-mail: [phone] Eligibility checked and patient found to be eligible for [facility] paid home IV antibiotic therapy? Yes Request for [place] Infectious Disease follow up?: No See documentation attached to [facility] Intermediate IV consult from outside hospital/clinic ordering provider for complete details. See [facility] Home IV consult for payment/authorization information NOTE: The Community Intermediate IV consult and this note are for payment and documentation purposes only. The ordering [facility] provider is responsible for the medical care and follow up of this patient (unless otherwise noted). Action Required: YES. PACT, please note that IV medication has been ordered by a non-VA provider. In order for the prescribed therapy to be paid by the [place], a VA provider signature/order is required. [facility] Home Infusion Therapy consult placed awaiting PACT signature. /viridiana/ Nini PARKSN RN CRRN Product Development Chemist Signed: 06/24/2024 12:37 Receipt Acknowledged By: 06/25/2024 11:54 /es/ ROSEMARY WALTER PA-C Internal Medicine (Primary Care) for NINI [facility]OH[facility]
--- OUTSIDE RECORDS SUMMARY | 2024-08-21 10:13 | XMS_ITS | Encounter Summary ---
Author Name [place] Organization [place] Address [address] [place] [address] Care Team Providers Care Mint Machine Operator Name Role Phone PORTER YUKO Primary Care [...] PART A Oct 21, 2020 PART A [id number] [phone] Tabitha DAVIS PATIENT Selected Encounter This section includes the information on record at [place] for the Encounter. Date/Time Encounter Type Encounter Description Reason Pro vider Source Jun 24, 2024 10:12 AM Outpatient Encounter COMMUNITY CARE CONSULT IHE Encounter Template Text not used by [place] Plan of Treatment: Future Appointments (+ 6 [...] of theEncounter. The data comes from all [place] treatment facilities. Test Date/Time Test Type Test Details Facility Name Jun 17, 2024 09:26 AM Consult Order COMMUNITY CARE-IV THERAPY [facility] Preassembler Printed Circuit Board's [facility] Jun 17, 2024 09:46 AM Consult Order INFECTIOUS DISEASE OUTPT Cons Preassembler Printed Circuit Board's [facility] Jun 17, 2024 10:08 AM Consult Order PODIATRY O UTPT Cons Preassembler Printed Circuit Board's [facility] Social History: Smoking Status (Most current) and Tobacco Use (All prior to encounter date) This section includes the most current, and the historical, smoking and tobacco- related health factors from the [place] facility where the Encounter took place. Current Smoking Status This section includes the most current smoking, or tobacco-related health factor, from the [place] facility where the Encounter took place. Date/Time Current Smoking Status Comment Facil ity Sep 30, 2023 11:58 PM VA-TOBACCO NEVER USED [facility] Tobacco Use History This section includes a history of the smoking, or tobacco-related health factors, that were collected on or before the date of the Encounter. The data comes from the [place] facility where the Encounter took place. Date/Time Smoking Status/Tobacco Use Comment F acility Sep 11, 2022 02:15 PM VA-TOBACCO NEVER USED [facility] Feb 16, 2019 02:36 PM VA-TOBACCO NEVER USED [facility] Encounter Notes: All associated encounter notes This section contains the clinical notes associated to the Encounter. Date/Time Encounter Note(s) Provider Source Jun 24, 2024 10:12 AM NONVA NOTE: LOCAL TITLE: COMMUNITY CARE-CARE COORDINATION PLAN NOTE STANDARD TITLE: NONVA NOTE DATE OF NOTE: JUN 24, 2024@10:12 ENTRY DATE: JUN 24, 2024@10:12:45 AUTHOR: NINI HANEY EXP COSIGNER: URGENCY: STATUS: COMPLETED COMMUNITY CARE-CARE COORDINATION PLAN NOTE Has ADDENDA Received phone call from [facility] ([phone]). She said is requesting Home IV infusion due to transportation difficulties. She faxed a completed Community Provider IV form to [facility] yesterday. I told her I have not received it yet and that I will call her and let her know once received. Notifying Jennifer Metzger RN[facility]. /viridiana/ Nini Haney BSN RN CRRN Carriage Rider Signed: 06/24/2024 10:15 Receipt Acknowledged By: 06/24/2024 14:03 /es/ RICARDO FULLER, RN special education professional Training Specialist for JENNIFER METZGER 06/24/2024 ADDENDUM STATUS: COMPLETED Form requesting HOME IV received from [place]. Will process home IV with [facility] per [place]'s request. /viridiana/ Nini PARKSN RN CRRN Carriage Rider Signed: 06/24/2024 12:01 NINI HANEY [facility]
--- OUTSIDE RECORDS SUMMARY | 2024-08-21 10:13 | XMS_ITS | Encounter Summary ---
Author Name [facility] [place] Organization [place] Address [address] [place] [address] Care Team Providers Care Lead Nurse Name Role Phone PORTER, YUKO Primary Care [...] PART A Oct 21, 2020 PART A [id number] [phone] Tabitha DAVIS PATIENT Selected Encounter This section includes the information on record at [place] for the Encounter. Date/Time Encounter Type Encounter Description Reason Pro vider Source Jun 17, 2024 12:19 PM Outpatient Encounter COMMUNITY CARE CONSULT IHE Encounter Template Text not used by [place] Plan of Treatment: Future Appointments (+ 6 months) and Future Tests (+/- 45 days) The Plan of Treatment section includes future care activities for the patient from all [place] treatmentfacilities. This section includes future appointments and future orders which are active, pending or scheduled. Future Appointments This section includes appointments that were scheduled to occur 6 months from the date of the Encounter, up to a maximum of 20 appointments. The data comes from all [place] treatment facilities. Appointment Date/Time Appointment Type Appointme nt Facility Name Jun 18, 2024 01:00 PM AMBULATORY - NONE [facility] Jun 18, 2024 02:00 PM AMBULATORY - NONE [facility] Jun 24, 2024 07:00 AM AMBULATORY - NONE [facility] Active, Pending, and Scheduled Orders This section includes a listing of several types of active, pending, and scheduled orders, including clinic medications orders, diagnostic test orders, procedure orders and consult orders; where the start date of the order is 45 days before the date of the Encounter or 45 days after the date of theEncounter. The data comes from all [place] treatment facilities. Test Date/Time Test Type Test Details Facility Name Jun 17, 2024 09:26 AM Consult Order COMMUNITY CARE-IV THERAPY [facility] Jun 17, 2024 09:46 AM Consult Order INFECTIOUS DISEASE OUTPT [facility] Jun 17, 2024 10:08 AM Consult Order PODIATRY O UTPT [facility] Social History: Smoking Status (Most current) and Tobacco Use (All prior to encounter date) This section includes the most current, and the historical, smoking and tobacco- related health factors from the [place] facility where the Encounter took place. Current Smoking Status This section includes the most current smoking, or tobacco-related health factor, from the [place] facility where the Encounter took place. Date/Time Current Smoking Status Comment Facil ity Sep 30, 2023 11:58 PM VA-TOBACCO NEVER USED [facility] Tobacco Use History This section includes a history of the smoking, or tobacco-related health factors, that were collected on or before the date of the Encounter. The data comes from the [place] facility where the Encounter took place. Date/Time Smoking Status/Tobacco Use Comment F acility Sep 11, 2022 02:15 PM VA-TOBACCO NEVER USED [facility] Feb 16, 2019 02:36 PM VA-TOBACCO NEVER USED [facility] Encounter Notes: All associated encounter notes This section contains the clinical notes associated to the Encounter. Date/Time Encounter Note(s) Provider Source Jun 17, 2024 12:19 PM NONVA NOTE: LOCAL TITLE: COMMUNITY CARE APPOINTMENT LETTER (AUTOPRINT) STANDARD TITLE: NONVA NOTE DATE OF NOTE: JUN 17, 2024@12:19 ENTRY DATE: JUN 17, 2024@12:20:04 AUTHOR: SWAPNIL GOULD COSIGNER: URGENCY: STATUS: COMPLETED May KARIN DAVIS [address], [place] [address] Dear KARIN DAVIS, Your VA provider has referred you to a provider within the community for care. Your medical care for IV THERAPY has been authorized with the community care provider listed below. DO NOT REPORT TO THE [place] [facility] Provider info: An appointment has been scheduled for you on: May@14:00 Office name, address, phone number: [facility] [address] [facility] [address] PH: [phone] Authorization number: [facility] Referral issue date: May Expiration date: Sep (subject to change based on first appointment) *Please bring this appt letter containing your authorization information to your appointment* If you are unable to keep this appointment or the appointment is no longer needed, please contact the community provider above for notification/rescheduling and then call the [facility] Office of Community Care at [phone] during the hours of 8:30AM - 3:00PM. If you need additional care/services not mentioned above or your authorization has and additional care is needed, please contact your primary care provider for a new referral. To review all care/service(s) approved under your referral, please go to the following link: [employer] Portal([employer] ) Co-Payments: If you are required to pay a VA co-payment, you will be billed by the VA for each authorized visit that you attend. However, you are NOT REQUIRED to make co-payments to a community provider. Thank you for the opportunity to serve you. Sincerely, [place] Community Care (VACC) /viridiana/ SWAPNIL GOULD ADVANCED REAL ESTATE FIRM MANAGER Signed: 06/17/2024 12:21 SWAPNIL GOULD [facility]
--- OUTSIDE RECORDS SUMMARY | 2024-08-21 10:14 | XMS_ITS | Encounter Summary ---
Author Name [facility] [place] Organization [place] Address [address] [place] [address] Care Team Providers Care American Sign Language Teacher Name Role Phone YUKO BUENROSTRO Primary Care [...] PART A Oct 21, 2020 PART A [id number] [phone] Tabitha DAVIS PATIENT Selected Encounter This section includes the information on record at [place] for the Encounter. Date/Time Encounter Type Encounter Description Reason Pro vider Source Jun 24, 2024 12:00 PM Outpatient Encounter PRIMARY CARE/MEDICINE IHE Encounter Template Text not used by [place] Plan of Treatment: Future Appointments (+ 6 months) and Future Tests (+/- 45 days) The Plan of Treatment section includes future care activities for the patient from all [place] treatmentfacilities. This section includes future appointments and [...] of theEncounter. The data comes from all [place] treatment facilities. Test Date/Time Test Type Test Details Facility Name Jun 17, 2024 09:46 AM Consult Order INFECTIOUS DISEASE OUTPT [facility] [employer] [facility] Jun 17, 2024 10:08 AM Consult Order COMMUNITY CARE-PODIATRY [facility] Jul 01, 2024 09:46 AM Consult Order COMMUNITY CARE-HYPERBARIC PC Cons [employer] [facility] Social History: Smoking Status (Most current) and Tobacco Use (All prior to encounter date) This section includes the most current, and the historical, smoking and tobacco- related health factors from the [place] facility where the Encounter took place. Current Smoking Status This section includes the most current smoking, or tobacco-related health factor, from the [place] facility where the Encounter took place. Date/Time Current Smoking Status Comment Facil ity Sep 30, 2023 11:58 PM VA-TOBACCO NEVER USED [facility] Tobacco Use History This section includes a history of the smoking, or tobacco-related health factors, that were collected on or before the date of the Encounter. The data comes from the [place] facility where the Encounter took place. Date/Time Smoking Status/Tobacco Use Comment F acility Sep 11, 2022 02:15 PM VA-TOBACCO NEVER USED [facility] Feb 16, 2019 02:36 PM VA-TOBACCO NEVER USED [facility] Encounter Notes: All associated encounter notes This section contains the clinical notes associated to the Encounter. Date/Time Encounter Note(s) Provider Source Jun 24, 2024 12:00 PM NONVA CONSULT: LOCAL TITLE: COMMUNITY CARE CONSULT RESULT IV THERAPY STANDARD TITLE: NONVA CONSULT DATE OF NOTE: JUN 24, 2024@12:00 ENTRY DATE: JUN 30, 2024@20:26:08 AUTHOR: BELLA HERNANDES EXP COSIGNER: URGENCY: STATUS: COMPLETED Vist[facility] Imaging - Scanned Document SCANNED DOCUMENT SIGNATURE NOT REQUIRED Electronically Filed: 06/30/2024 by: BELLA HERNANDES LPN LICENSED PRACTICAL NURSE BELLA HERNANDES [facility]
--- OUTSIDE RECORDS SUMMARY | 2024-08-21 10:14 | XMS_ITS | Encounter Summary ---
Author Name [facility] [place] Organization [place] Address [address] [place] [address] Care Team Providers Care Manager Generation Name Role Phone YUKO BUENROSTRO Primary Care [...] PART A Oct 21, 2020 PART A [id number] [phone] Tabitha DAVIS PATIENT Selected Encounter This section includes the information on record at [place] for the Encounter. Date/Time Encounter Type Encounter Description Reason Pro vider Source Jul 15, 2024 09:43 AM Outpatient Encounter TELEPHONE TRIAGE IHE Encounter [...] Date/Time Appointment Type Appointme nt Facility Name Jul 16, 2024 01:45 PM AMBULATORY - NONE [facility] Active, Pending, and Scheduled Orders This [...] Jun 17, 2024 09:46 AM Consult Order COMMUNITY CARE-INFEC DIS Cons Peer Support Specialist[facility] Jun 17, 2024 10:08 AM Consult Order COMMUNITY CARE-PODIATRY Cons Peer Support Special[facility] Jul 01, 2024 09:46 AM Consult Order COMMUNITY CARE-HYPERBARIC PC Cons Peer Support Specialist[facility] Jul 09, 2024 03:31 PM Consult Order COMMUNITY CARE-GEC SKILLED HOME CARE Cons Peer Support Specialist's [facility] Social History: Smoking Status (Most current) and [...] 30, 2023 11:58 PM VA-TOBACCO NEVER USED [facility] Tobacco Use History This section includes a history of the smoking, or tobacco-related health factors, that were collected on or before the date of the Encounter. The data comes from the [place] facility where the Encounter took place. Date/Time Smoking Status/Tobacco Use Comment F acility Sep 11, 2022 02:15 PM VA-TOBACCO NEVER USED [facility] Feb 16, 2019 02:36 PM VA-TOBACCO NEVER USED [facility] Encounter Notes: All associated encounter notes This section contains the clinical notes associated to the Encounter. Date/Time Encounter Note(s) Provider Source Jul 15, 2024 01:37 PM ADDENDUM: LOCAL TITLE: Addendum STANDARD TITLE: ADDENDUM DATE OF NOTE: JUL 15, 2024@13:37:08 ENTRY DATE: JUL 15, 2024@13:37:08 AUTHOR: OBDULIA ORTIZ EXP COSIGNER: URGENCY: STATUS: COMPLETED PCP- Please order debrox. /viridiana/ OBDULIA ORTIZ RN RN, BSN Signed: 07/15/2024 13:37 Receipt Acknowledged By: 07/15/2024 15:28 /viridiana/ YUKO BUENROSTRO Physician Barge Master --- Original Document --- 07/15/24 CCC: SCHEDULING ADMINISTRATION: Primary Care Call Center Primary Care Provider Call. Please contact at the following number: [phone] Mchenry called and requested a callback about [facility] consult. Mchenry stated an Sofi RN suggested cerumen cleaning. Please call . This note was created by a V23 [facility] Call Center AMSA/GALO. Please do not alert this investment underwriter by adding as a signer for future communications. Alerts are not monitored by this user, please reach out to [facility] Leadership instead if indicated. /viridiana/ RONNIE OREILLY FOREST SUPERVISOR Signed: 07/15/2024 09:46 Receipt Acknowledged By: 07/15/2024 13:35 /viridiana/ OBDULIA ORTIZ RN RN, BSN 07/15/2024 ADDENDUM STATUS: COMPLETED VM left for vet, that it appears all appropriate consults were placed. Also said that we will start by ordering ear drops for ear wax concerns, and after using these for 1-2 wks, if still concerns, can f/u appropriately. /estevan ORTIZ RN RN, BSN Signed: 07/15/2024 13:36 OBDULIA ORTIZ [facility] Jul 15, 2024 09:43 AM ADMINISTRATIVE NOT E: LOCAL TITLE: CCC: SCHEDULING ADMINISTRATION STANDARD TITLE: ADMINISTRATIVE NOTE DATE OF NOTE: JUL 15, 2024@09:43 ENTRY DATE: JUL 15, 2024@09:43:25 AUTHOR: SARY OREILLY EXP COSIGNER: URGENCY: STATUS: COMPLETED CCC: SCHEDULING ADMINISTRATION Has ADDENDA Primary Care Call Center Primary Care Provider Call. Please contact at the following number: [phone] Mchenry called and requested a callback about [facility] Care consult. stated an Sofi RN suggested cerumen cleaning. Please call . This note was created by a 3 [facility] Call Center LEA/GALO. Please do not alert this investment underwriter by adding as a signer for future communications. Alerts are not monitored by this user, please reach out to [facility] Leadership instead if indicated. /viridiana/ RONNIE OREILLY FOREST SUPERVISOR Signed: 07/15/2024 09:46 Receipt Acknowledged By: 07/15/2024 13:35 /estevan ORTIZ RN RN, BSN 07/15/2024 ADDENDUM STATUS: COMPLETED VM left for vet, that it appears all appropriate consults were placed. Also said that we will start by ordering ear drops for ear wax concerns, and after using these for 1-2 wks, if still concerns, can f/u appropriately. /estevan ORTIZ RN RN, BSN Signed: 07/15/2024 13:36 07/15/2024 ADDENDUM STATUS: COMPLETED PCP- Please order debrox. /estevan ORTIZ RN RN, BSN Signed: 07/15/2024 13:37 Receipt Acknowledged By: * AWAITING SIGNATURE * YUKO BUENROSTRO THERES A A [facility]
--- OUTSIDE RECORDS SUMMARY | 2024-08-21 10:14 | XMS_ITS | Encounter Summary ---
Author Name Department of [place]a [facility] [place] Organization [place] Address [address] [place] [address] Care Team Providers Care Circulator Name Role Phone PORTER YUKO Primary Care [...] PART A Oct 21, 2020 PART A [id number] [phone] Tabitha DAVIS PATIENT Selected Encounter This section includes the information on record at [place] for the Encounter. Date/Time Encounter Type Encounter Description Reason Pro vider Source Jul 10, 2024 09:17 AM Outpatient Encounter COMMUNITY CARE CONSULT IHE Encounter Template Text not used by [place] [...] AM Consult Order COMMUNITY CARE-INFEC DIS Cons Program Aide Group Work's [facility] Jun 17, 2024 10:08 AM Consult Order COMMUNITY CARE-PODIATRY Cons Program Aide Group Work[facility] Jul 01, 2024 09:46 AM Consult Order COMMUNITY CARE-HYPERBARIC PC Cons Program Aide Group Work's [facility] Jul 09, 2024 03:31 PM Consult Order COMMUNITY CARE-GEC SKILLED HOME CARE Cons Program Aide Group Work's [facility] Social History: Smoking Status (Most current) [...] 30, 2023 11:58 PM VA-TOBACCO NEVER USED [facility] Tobacco Use History This section includes a history of the smoking, or tobacco-related health factors, that were collected on or before the date of the Encounter. The data comes from the [place] facility where the Encounter took place. Date/Time Smoking Status/Tobacco Use Comment F acility Sep 11, 2022 02:15 PM VA-TOBACCO NEVER USED [facility] Feb 16, 2019 02:36 PM VA-TOBACCO NEVER USED [facility] Encounter Notes: All associated encounter notes This section contains the clinical notes associated to the Encounter. Date/Time Encounter Note(s) Provider Source Jul 10, 2024 09:17 AM NONVA NOTE: LOCAL TITLE: COMMUNITY CARE PRE-AUTH LETTER (AUTOPRINT) STANDARD TITLE: NONVA NOTE DATE OF NOTE: JUL 10, 2024@09:17 ENTRY DATE: JUL 10, 2024@09:17:13 AUTHOR: TITUS FONG EXP COSIGNER: URGENCY: STATUS: COMPLETED Jun KARIN DAVIS [address], [place] [address] Dear KARIN DAVIS, Your VA provider has referred you to a provider within the community for care. Your medical care for INFECTIOUS DISEASE has been authorized with the community care provider listed below. DO NOT REPORT TO THE [place] [facility] [place] Provider info: Care has been approved for the following vendor: Office name, address, and phone number: [facility] [address] [place] [address] PH: [phone] Please contact the identified provider to schedule your community appointment. If you need assistance with this appointment, please call your facility community care office [facility] Office of Community Care at [phone] during the hours of 8:30AM - 3:00PM. Please follow up with your local [facility] community care office once this is scheduled. This step is needed to ensure your referral duration is maximized and the [place] has accurate referral information for billing purposes. Authorization Number: [id number] Referral Issue Date: Jun Expiration Date: Jun (subject to change based on first appointment) If you are unable to schedule this appointment or the appointment is no longer needed, please contact the community provider above for notification/rescheduling and then call the [facility] Office of Community Care at [phone] during the hours of 8:30AM - 3:00PM. If you need additional care/services not mentioned above or your authorization has and additional care is needed, please contact your primary care provider for a new referral. To review all care/service(s) approved under your referral, please go to the following link: [employer] Portal([employer]) Co-Payments: If you are required to pay a VA co-payment, you will be billed by the VA for each authorized visit that you attend. However, you are NOT REQUIRED to make co-payments to a community provider. Thank you for the opportunity to serve you. Sincerely, [place] Community Care (VACC) /viridiana/ TITUS TATE Signed: 07/10/2024 09:18 TITUS FONG [facility]
--- OUTSIDE RECORDS SUMMARY | 2024-08-21 10:14 | XMS_ITS | Encounter Summary ---
Author Name [facility] [place] Organization [place] Address [address] [place] [id number] Care Team Providers Care Outreach Educator Name Role Phone YUKO BUENROSTRO Primary Care [...] PART A Oct 21, 2020 PART A [id number] [phone] Tabitha DAVIS PATIENT Selected Encounter This section includes the information on record at [place] for the Encounter. Date/Time Encounter Type Encounter Description Reason Provider Source Jun 30, 2024 09:58 AM Outpatient Encounter COMMUNITY CARE CONSULT BELLA METZGER Encounter Template Text not used by [place] Plan of Treatment: Future Appointments (+ 6 months) and Future Tests (+/- 45 days) The Plan of Treatment section includes future care activities for the patient from all [place] treatmentfacilities. This section includes future appointments and [...] of theEncounter. The data comes from all [place] treatment facilities. Test Date/Time Test Type Test Details Facility Name Jun 17, 2024 09:46 AM Consult Order INFECTIOUS DISEASE OUTPT Cons Parimutuel Ticket [facility] Jun 17, 2024 10:08 AM Consult Order COMMUNITY CARE-PODIATRY Cons Parimutuel Ticket [facility] Jul 01, 2024 09:46 AM Consult Order COMMUNITY CARE-HYPERBARIC PC Cons Parimutuel Ticket Cashier[facility] Social History: Smoking Status (Most current) and Tobacco Use (All prior to encounter date) This section includes the most current, and the historical, smoking and tobacco- related health factors from the [place] facility where the Encounter took place. Current Smoking Status This section includes the most current smoking, or tobacco-related health factor, from the [place] facility where the Encounter took place. Date/Time Current Smoking Status Comment Facil ity Sep 30, 2023 11:58 PM VA-TOBACCO NEVER USED [facility] Tobacco Use History This section includes a history of the smoking, or tobacco-related health factors, that were collected on or before the date of the Encounter. The data comes from the [place] facility where the Encounter took place. Date/Time Smoking Status/Tobacco Use Comment F acility Sep 11, 2022 02:15 PM VA-TOBACCO NEVER USED [facility] Feb 16, 2019 02:36 PM VA-TOBACCO NEVER USED [facility] Encounter Notes: All associated encounter notes This section contains the clinical notes associated to the Encounter. Date/Time Encounter Note(s) Provider Source Jun 30, 2024 02:55 PM ADDENDUM: LOCAL TITLE: Addendum STANDARD TITLE: ADDENDUM DATE OF NOTE: JUN 30, 2024@14:55:46 ENTRY DATE: JUN 30, 2024@14:55:47 AUTHOR: YUKO BUENROSTRO COSIGNER: URGENCY: STATUS: COMPLETED Please advise if hyperbaric oxygen therapy is covered under current [facility] wound consult? I do not see any separate orders for this under [facility]. /viridiana/ YUKO BUENROSTRO Physician Director Business Management Signed: 06/30/2024 14:56 Receipt Acknowledged By: 07/01/2024 10:58 /es/ BETTY DAVALOS MD STAFF PHYSICIAN ====== --- Original Document --- 06/30/24 COMMUNITY CARE-REQUEST FOR SERVICE NOTE: Received request from patient's [facility] WOUND CARE provider, [facility] requesting referral for (services) HYPERBARIC TREATMENT. May [facility] WOUND CARE Consult #[id number]. RFS uploaded to [facility] note dated: 06/30/24. ~ Place new consult if clinically indicated, thank you /viridiana/ BELLA METZGER RN BSN CONE WORKER ENVELOPE SEALING MACHINE OPERATOR Signed: 06/30/2024 10:00 Receipt Acknowledged By: 06/30/2024 14:52 /viridiana/ YUKO BUENROSTRO Physician Director Business Management YUKO BUENROSTRO [facility] Jun 30, 2024 09:58 AM NONVA NOTE: LOCAL TITLE: COMMUNITY CARE-REQUEST FOR SERVICE NOTE STANDARD TITLE: NONVA NOTE DATE OF NOTE: JUN 30, 2024@09:58 ENTRY DATE: JUN 30, 2024@09:58:30 AUTHOR: BELLA METZGER EXP COSIGNER: URGENCY: STATUS: COMPLETED SUBJECT: RFS - HYPERBARIC TREATMENT COMMUNITY CARE-REQUEST FOR SERVICE NOTE Has ADDENDA Received request from patient's CC WOUND CARE provider, [facility] requesting referral for (services) HYPERBARIC TREATMENT. May [facility] W[facility] C[facility] Consult #[id number]. RFS uploaded to [facility] note dated: 06/30/24. ~ Place new consult if clinically indicated, fely durant /viridiana/ BELLA PARKSN CONE WORKER ENVELOPE SEALING MACHINE OPERATOR Signed: 06/30/2024 10:00 Receipt Acknowledged By: 06/30/2024 14:52 /estevan BUENROSTRO Physician Director Business Management 06/30/2024 ADDENDUM STATUS: COMPLETED Please advise if hyperbaric oxygen therapy is covered under current [facility] wound consult? I do not see any separate orders for this under [facility]. /viridiana/ YUKO BUENROSTRO Physician Director Business Management Signed: 06/30/2024 14:56 Receipt Acknowledged By: * AWAITING SIGNATURE * BETTY DAVALOS,BELLA NIETO [facility]
--- OUTSIDE RECORDS SUMMARY | 2024-08-21 10:14 | XMS_ITS | Encounter Summary ---
Author Name [facility] [place] Address [address] [place] [address] Care Team Providers Care Software Engineering Manager Name Role Phone YUKO BUENROSTRO Primary Care [...] PART A Oct 21, 2020 PART A [id number] [phone] Tabitha DAVIS PATIENT Selected Encounter This section includes the information on record at [place] for the Encounter. Date/Time Encounter Type Encounter Description Reason Provider Source Jul 09, 2024 09:41 AM Outpatient Encounter COMMUNITY CARE CONSULT BELLA METZGER Encounter Template Text not used by [place] Plan of Treatment: Future Appointments (+ 6 months) and Future Tests (+/- 45 days) The Plan of Treatment section includes future care activities for the patient from all [place] treatmentfacilities. This section includes future appointments and [...] of theEncounter. The data comes from all [place] treatment facilities. Test Date/Time Test Type Test Details Facility Name Jun 17, 2024 09:46 AM Consult Order COMMUNITY CARE-INFEC DIS Cons [facility] Jun 17, 2024 10:08 AM Consult Order COMMUNITY CARE-PODIATRY Cons [facility] Jul 01, 2024 09:46 AM Consult Order COMMUNITY CARE-HYPERBARIC PC Cons [facility] Jul 09, 2024 03:31 PM Consult Order COMMUNITY CARE-GEC SKILLED HOME CARE Cons [facility] Social History: Smoking Status (Most current) and Tobacco Use (All prior to encounter date) This section includes the most current, and the historical, smoking and tobacco- related health factors from the [place] facility where the Encounter took place. Current Smoking Status This section includes the most current smoking, or tobacco-related health factor, from the [place] facility where the Encounter took place. Date/Time Current Smoking Status Comment Facil ity Sep 30, 2023 11:58 PM VA-TOBACCO NEVER USED [facility] Tobacco Use History This section includes a history of the smoking, or tobacco-related health factors, that were collected on or before the date of the Encounter. The data comes from the [place] facility where the Encounter took place. Date/Time Smoking Status/Tobacco Use Comment F acility Sep 11, 2022 02:15 PM VA-TOBACCO NEVER USED [facility] Feb 16, 2019 02:36 PM VA-TOBACCO NEVER USED [facility] Encounter Notes: All associated encounter notes This section contains the clinical notes associated to the Encounter. Date/Time Encounter Note(s) Provider Source Jul 09, 2024 09:41 AM NONVA NOTE: LOCAL TITLE: COMMUNITY CARE-CARE COORDINATION PLAN NOTE STANDARD TITLE: NONVA NOTE DATE OF NOTE: JUL 09, 2024@09:41 ENTRY DATE: JUL 09, 2024@09:41:33 AUTHOR: BELLA METZGER EXP COSIGNER: URGENCY: STATUS: COMPLETED Community Care Consult: 06/17/24 COMMUNITY CARE-INFEC DIS Consult No: [id number] [facility] Referral #: na Chief Complaint: Was hospitalized with cellulitis of right foot, had wound vac. D/c ordered to have daily IV ertapenem, at [facility] Patient Admitted? No Level of Care Coordination [...] and education concerning this episode of care. and/or caregiver provided direct contact information for community care department by letter. This letter assists with any follow up needs or additional requests for services. /es/ BELLA METZGER SPLITTER HAND SOCIAL SECURITY ASSESSOR MAT GAUGER Signed: 07/09/2024 09:43 BELLA METZGER [facility]
--- OUTSIDE RECORDS SUMMARY | 2024-08-21 10:14 | XMS_ITS | Encounter Summary ---
Author Name [facility] [place] Organization [place] Address [address] [place] [address] Care Team Providers Care Carbon Rod Inserter Name Role Phone PORTER YUKO Primary Care [...] PART A Oct 21, 2020 PART A [id number] [phone] Tabitha DAVIS PATIENT Selected Encounter This section includes the information on record at [place] for the Encounter. Date/Time Encounter Type Encounter Description Reason Pro vider Source Jul 08, 2024 09:24 AM Outpatient Encounter EVENT (HISTORICAL) IHE Encounter Template Text not used by [place] Plan of Treatment: Future Appointments (+ 6 months) and Future Tests (+/- 45 days) The Plan of Treatment section includes future care activities for the patient from all [place] treatmentfacilities. This section includes future appointments and [...] of theEncounter. The data comes from all [place] treatment facilities. Test Date/Time Test Type Test Details Facility Name Jun 17, 2024 09:46 AM Consult Order COMMUNITY CARE-INFEC DIS Cons Pharmacy Intake [facility] Jun 17, 2024 10:08 AM Consult Order COMMUNITY CARE-PODIATRY Cons Pharmacy Intake [facility] Jul 01, 2024 09:46 AM Consult Order COMMUNITY CARE-HYPERBARIC PC Cons Pharmacy Intake Techn[facility] Jul 09, 2024 03:31 PM Consult Order COMMUNITY CARE-GEC SKILLED HOME CARE Cons Pharmacy Intake [facility] Social History: Smoking Status (Most current) and Tobacco Use (All prior to encounter date) This section includes the most current, and the historical, smoking and tobacco- related health factors from the [place] facility where the Encounter took place. Current Smoking Status This section includes the most current smoking, or tobacco-related health factor, from the [place] facility where the Encounter took place. Date/Time Current Smoking Status Comment Randall holcomby Sep 30, 2023 11:58 PM VA-TOBACCO NEVER USED [facility] Tobacco Use History This section includes a history of the smoking, or tobacco-related health factors, that were collected on or before the date of the Encounter. The data comes from the [place] facility where the Encounter took place. Date/Time Smoking Status/Tobacco Use Comment F acility Sep 11, 2022 02:15 PM VA-TOBACCO NEVER USED [facility] Feb 16, 2019 02:36 PM VA-TOBACCO NEVER USED [facility]
--- OUTSIDE RECORDS SUMMARY | 2024-08-21 10:14 | XMS_ITS | Encounter Summary ---
Author Name [facility] [place] Address [address] [place] [address] Care Team Providers Care Elementary Science Teacher Name Role Phone YUKO BUENROSTRO Primary [...] PART A Oct 21, 2020 PART A [id number] [phone] Tabitha DAVIS PATIENT Selected Encounter This section includes the information on record at [place] for the Encounter. Date/Time Encounter Type Encounter Description Reason Provider Source Jul 02, 2024 07:54 AM Outpatient Encounter COMMUNITY CARE CONSULT BELLA METZGER Encounter Template Text not used by [place] Plan of Treatment: Future Appointments (+ 6 months) and Future Tests (+/- 45 days) The Plan of Treatment section includes future care activities for the patient from all [place] treatmentfacilities. This section includes future appointments and [...] of theEncounter. The data comes from all [place] treatment facilities. Test Date/Time Test Type Test Details Facility Name Jun 17, 2024 09:46 AM Consult Order INFECTIOUS DISEASE OUTPT Cons Poultry Field Service [facility] Jun 17, 2024 10:08 AM Consult Order COMMUNITY CARE-PODIATRY Cons Poultry Field Service Techn[facility] Jul 01, 2024 09:46 AM Consult Order COMMUNITY CARE-HYPERBARIC PC Cons Poultry Field Service Technician[facility] Social History: Smoking Status (Most current) and [...] 30, 2023 11:58 PM VA-TOBACCO NEVER USED [facility] Tobacco Use History This section includes a history of the smoking, or tobacco-related health factors, that were collected on or before the date of the Encounter. The data comes from the [place] facility where the Encounter took place. Date/Time Smoking Status/Tobacco Use Comment F acility Sep 11, 2022 02:15 PM VA-TOBACCO NEVER USED [facility] Feb 16, 2019 02:36 PM VA-TOBACCO NEVER USED [facility] Encounter Notes: All associated encounter notes This section contains the clinical notes associated to the Encounter. Date/Time Encounter Note(s) Provider Source Jul 02, 2024 07:59 AM NONVA NOTE: LOCAL TITLE: COMMUNITY CARE-CARE COORDINATION PLAN NOTE STANDARD TITLE: NONVA NOTE DATE OF NOTE: JUL 02, 2024@07:59 ENTRY DATE: JUL 02, 2024@07:59:05 AUTHOR: BELLA METZGER EXP COSIGNER: URGENCY: STATUS: COMPLETED Community Care Consult: 06/17/24 PODIATRY Consult No: [id number] [facility] Referral #: NA Chief Complaint: cellulitis of rt foot Patient Admitted? No Level of Care Coordination Moderate Care Coordination was determined from: Chart Review Facility Community Care Office Contact Care Coordination Point of Contact: BELLA METZGER RN Services: Basic Care Coordination Services Monitoring and coordination of Rehab/PT Services Direct communication to referring provider Care management, if appropriate Plan: [place] assessed as needing moderate care coordination which may include disease management, health/wellness promotion and education concerning this episode of care. and/or caregiver provided direct contact information for community care department by letter. This letter assists with any follow up needs or additional requests for services. /es/ BELLA MENA POCKET FLAP CREASING MACHINE OPERATOR BOTTLE FEEDER Signed: 07/02/2024 08:00 YASSINEBELLA [facility] Jul 02, 2024 07:54 AM NONVA NOTE: LOCAL TITLE: COMMUNITY CARE-CARE COORDINATION PLAN NOTE STANDARD TITLE: NONVA NOTE DATE OF NOTE: JUL 02, 2024@07:54 ENTRY DATE: JUL 02, 2024@07:54:40 AUTHOR: BELLA METZGER EXP COSIGNER: URGENCY: STATUS: COMPLETED Community Care Consult: 07/01/24 -HYPERBARIC Consult No: [id number] [facility] Referral #: na Chief Complaint: Diabetic ulcer of right midfoot Patient Admitted? No Level of Care Coordination Moderate Care Coordination was determined from: Chart Review Facility Community Care Office Contact Care Coordination Point of Contact: BELLA METZGER RN Services: Basic Care Coordination Services Monitoring and coordination of Rehab/PT Services Direct communication to referring provider Care management, if appropriate Plan: [place] assessed as needing moderate care coordination which may include disease management, health/wellness promotion and education concerning this episode of care. and/or caregiver provided direct contact information for community care department by letter. This letter assists with any follow up needs or additional requests for services. /viridiana/ BELLA MENA POCKET FLAP CREASING MACHINE OPERATOR BOTTLE FEEDER Signed: 07/02/2024 07:55 YASSINEBELLABELEN [facility]
--- OUTSIDE RECORDS SUMMARY | 2024-08-21 10:14 | XMS_ITS | Encounter Summary ---
Author Name [facility] [place] Organization [place] Address [address] [place] [address] Care Team Providers Care Beater Dumper Name Role Phone YUKO BUENROSTRO Primary Care [...] PART A Oct 21, 2020 PART A [id number] [phone] Tabitha DAVIS PATIENT Selected Encounter This section includes the information on record at [place] for the Encounter. Date/Time Encounter Type Encounter Description Reason Pro vider Source Jul 03, 2024 12:22 PM Outpatient Encounter COMMUNITY CARE CONSULT IHE Encounter Template Text not used by [place] Plan of Treatment: Future Appointments (+ 6 [...] of theEncounter. The data comes from all [place] treatment facilities. Test Date/Time Test Type Test Details Facility Name Jun 17, 2024 09:46 AM Consult Order INFECTIOUS DISEASE OUTPT Cons Vice President Of Recruiting[facility] Jun 17, 2024 10:08 AM Consult Order COMMUNITY CARE-PODIATRY Cons Vice President Of Recruiting[facility] Jul 01, 2024 09:46 AM Consult Order COMMUNITY CARE-HYPERBARIC PC Cons Vice President Of Rec[facility] Social History: Smoking Status (Most current) and Tobacco Use (All prior to encounter date) This section includes the most current, and the historical, smoking and tobacco- related health factors from the [place] facility where the Encounter took place. Current Smoking Status This section includes the most current smoking, or tobacco-related health factor, from the [place] facility where the Encounter took place. Date/Time Current Smoking Status Comment Facil ity Sep 30, 2023 11:58 PM VA-TOBACCO NEVER USED [facility] Tobacco Use History This section includes a history of the smoking, or tobacco-related health factors, that were collected on or before the date of the Encounter. The data comes from the [place] facility where the Encounter took place. Date/Time Smoking Status/Tobacco Use Comment F acility Sep 11, 2022 02:15 PM VA-TOBACCO NEVER USED [facility] Feb 16, 2019 02:36 PM VA-TOBACCO NEVER USED [facility] Encounter Notes: All associated encounter notes This section contains the clinical notes associated to the Encounter. Date/Time Encounter Note(s) Provider Source Jul 03, 2024 12:30 PM NONVA NOTE: LOCAL TITLE: COMMUNITY CARE PRE-AUTH LETTER (AUTOPRINT) STANDARD TITLE: NONVA NOTE DATE OF NOTE: JUL 03, 2024@12:30 ENTRY DATE: JUL 03, 2024@12:30:35 AUTHOR: ABDULLAHI OCONNOR COSIGNER: URGENCY: STATUS: COMPLETED Jun KARIN DAVIS [address] [place] [id number] Dear KARIN DAVIS, Your VA provider has referred you to a provider within the community for care. Your medical care for Community care Podiatry has been authorized with the community care provider listed below. DO NOT REPORT TO THE [place] [facility] [place] [facility] Provider info: Care has been approved for the following vendor: Office name, address, and phone number: [facility] [address] [place] [address] Phone Direct: [phone] PH: [phone] Please contact the identified provider to schedule your community appointment. If you need assistance with this appointment, please call your facility community care office [facility] Office of Community Care at [phone] during the hours of 8:30AM - 3:00PM. Please follow up with your local [facility] community care office once this is scheduled. This step is needed to ensure your referral duration is maximized and the VA has accurate referral information for billing purposes. Authorization Number: [id number] Referral Issue Date: Jun Expiration Date: Dec (subject to change based on first appointment) If you are unable to schedule this appointment or the appointment is no longer needed, please contact the community provider above for notification/rescheduling and then call the [facility] Office of Community Care at [phone] during the hours of 8:30AM - 3:00PM. If you need additional care/services not mentioned above or your authorization has and additional care is needed, please contact your primary care provider for a new referral. To review all care/service(s) approved under your referral, please go to the following link: [employer] [place] [facility]([employer]) Co-Payments: If you are required to pay a VA co-payment, you will be billed by the VA for each authorized visit that you attend. However, you are NOT REQUIRED to make co-payments to a community provider. Thank you for the opportunity to serve you. Sincerely, [place] Community [facility] ([facility]) // ABDULLAHI OCONNOR AMSA Signed: 07/03/2024 12:31 ABDULLAHI OCONNOR [facility] Jul 03, 2024 12:22 PM NONVA NOTE: LOCAL TITLE: COMMUNITY CARE PRE-AUTH LETTER (AUTOPRINT) STANDARD TITLE: NONVA NOTE DATE OF NOTE: JUL 03, 2024@12:22 ENTRY DATE: JUL 03, 2024@12:22:13 AUTHOR: ABDULLAHI OCONNOR EXP COSIGNER: URGENCY: STATUS: COMPLETED Jun KARIN DAVIS [address] [place], [place] [address] Dear KARIN DAVIS, Your VA provider has referred you to a provider within the community for care. Your medical care for Community [facility] has been authorized with the community care provider listed below. DO NOT REPORT TO THE [place] [facility] Provider info: Care has been approved for the following vendor: Office name, address, and phone number: [facility] [address] [place] [address] Phone direct: [phone] PH: [phone] Please contact the identified provider to schedule your community appointment. If you need assistance with this appointment, please call your facility community care office [facility] Office of Community Care at [phone] during the hours of 8:30AM - 3:00PM. Please follow up with your local [facility] community care office once this is scheduled. This step is needed to ensure your referral duration is maximized and the [place] has accurate referral information for billing purposes. Authorization Number: [id number] Referral Issue Date: Jun Expiration Date: Sep (subject to change based on first appointment) If you are unable to schedule this appointment or the appointment is no longer needed, please contact the community provider above for notification/rescheduling and then call the [facility] Office of Community Care at [phone] during the hours of 8:30AM - 3:00PM. If you need additional care/services not mentioned above or your authorization has and additional care is needed, please contact your primary care provider for a new referral. To review all care/service(s) approved under your referral, please go to the following link: [employer] [place] [facility]([employer]) Co-Payments: If you are required to pay a VA co-payment, you will be billed by the [place] for each authorized visit that you attend. However, you are NOT REQUIRED to make co-payments to a community provider. Thank you for the opportunity to serve you. Sincerely, [place] Community [facility] ([facility]ACC) /viridiana/ ABDULLAHI TATE Signed: 07/03/2024 12:22 ABDULLAHI OCONNOR [place] [facility]
--- OUTSIDE RECORDS SUMMARY | 2024-08-21 10:14 | XMS_ITS | Encounter Summary ---
Author Name [facility] [place] Organization [place] Address [address] [place] [address] Care Team Providers Care Delphi Programmer Name Role Phone PRINCESS BUENROSTRON Primary Care Provider Unavailabl e Insurance Providers: [...] PART A Oct 21, 2020 PART A [id number] [phone] Tabitha DAVIS PATIENT Selected Encounter This section includes the information on record at [place] for the Encounter. Date/Time Encounter Type Encounter Description Reason Provider Source Jul 16, 2024 12:29 PM QNHP OL DIG ASSMT&MGMT 5-10 CLINICAL PHARMACY ICD-10-CM Z79.01 alf (current) use of anticoagulants JERI EMANUEL Encounter Template Text not used by [place] Assessments - Encounter Diagnoses This section includes the primary and secondary diagnoses documented for the Encounter. 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 This section includes future appointments [...] AM Consult Order COMMUNITY CARE-INFEC DIS Cons Cabinet Mounter's [facility] Jun 17, 2024 10:08 AM Consult Order COMMUNITY CARE-PODIATRY Cons Cabinet Mounters [facility] Jul 01, 2024 09:46 AM Consult Order COMMUNITY CARE-HYPERBARIC PC Cons Cabinet Mounter[facility] Jul 09, 2024 03:31 PM Consult Order COMMUNITY CARE-GEC SKILLED HOME CARE Cons Cabinet Mounter[facility] Social History: Smoking Status (Most [...] Encounter. Date/Time Encounter Note(s) Provider Source Jul 16, 2024 12:29 PM PHARMACY OUTPATIEN T MEDICATION MGT NOTE: LOCAL TITLE: PHARMACY ANTICOAGULATION CLINIC F/U STANDARD TITLE: PHARMACY OUTPATIENT MEDICATION MGT NOTE DATE OF NOTE: JUL 16, 2024@12:29 ENTRY DATE: JUL 16, 2024@12:29:52 AUTHOR: JASMIN EMANUEL COSIGNER: URGENCY: STATUS: COMPLETED DOAC DASHBOARD ALERT - RENEWAL - Anticoagulant: Apixaban 5mg every 12 hours - Indication: Atrial fibrillation - Secondary Indication/Relevant PMH: - CVA 05/2018, on warfarin - Prior major bleeds: - Prior anticoagulants: - Apixaban ~2015 to 2017 - Warfarin 2017- 02/2019, locally managed - Date started: 02/2019 - Anticipated duration of therapy: Indefinite - CHADS2-VASC = 6 (age, HTN, DM, CHF, CVA) - HAS-BLED = 3 (age, ASA, CVA) SUBJECTIVE/OBJECTIVE: Obtained from chart review. Dashboard flags: Renewal due Labs ==== Age: 69 Height: 73 in [185.4 cm] (10/01/2023 13:43) Weight: 206.7 lb [93.76 kg] (10/01/2023 13:43) Collection DT Specimen Test Name Result Units Ref Range 01/22/2024 10:59 PLASMA CREATININE 1.5 H mg/dL 0.7 - 1.2 01/07/2024 10:54 PLASMA CREATININE 1.6 H mg/dL 0.7 - 1.2 10/01/2023 12:13 PLASMA CREATININE 1.3 H mg/dL 0.7 - 1.2 03/05/2023 10:46 PLASMA CREATININE 1.3 H mg/dL 0.7 - 1.2 10/16/2022 15:07 PLASMA CREATININE 1.2 mg/dL 0.7 - 1.2 09/11/2022 13:21 PLASMA CREATININE 1.2 mg/dL 0.7 - 1.2 11/22/2021 09:41 PLASMA CREATININE 1.1 mg/dL 0.7 - 1.2 06/06/2021 11:13 PLASMA CREATININE 1.2 mg/dL 0.7 - 1.2 12/20/2020 10:21 PLASMA CREATININE 1.5 H mg/dL 0.7 - 1.2 11/08/2020 10:58 PLASMA CREATININE 1.2 mg/dL 0.7 - 1.2 Cockcroft & Gault (Actual body weight) = 63.4 mL/min Collection DT Spec WBC HGB HCT PLT MCV 10/01/2023 12:14 BLOOD 8.82 16.9 50.9 220 91.5 Collection DT Specimen Test Name Result Units Ref Range 01/07/2024 10:54 PLASMA BILIRUBIN, TOTAL 0.8 mg/dL 0.2 - 1.2 01/07/2024 10:54 PLASMA ALKALINE PHOSPHAT 67 U/L 40 - 150 01/07/2024 10:54 PLASMA AST/SGOT 18 U/L Ref: <=34 01/07/2024 10:54 PLASMA ALT/SGPT 21 U/L Ref: <=55 07/11/2020 11:36 PLASMA GAMMA GTP 24 U/L 4 - 64 07/11/2020 11:36 PLASMA DIR. BILIRUBIN 0.5 mg/dL Ref: <=0.5 ASSESSMENT/PLAN: Per chart review, appropriate for continued anticoagulant use. No contraindications noted. Benefit of therapy continues to outweigh risk. Lab monitoring current and without concern. Recent refill history suggests adherence. - Continue anticoagulation at current dose. - Monitor dashboard for labs, drug interactions, and compliance. - Dashboard flags reviewed/cleared, if applicable. - Lab monitoring frequency defined by dashboard or as clinically indicated. - Rx reviewed - renewed for 90ds w/ refills. Time spent: 10 min /viridiana/ SHIVANI EMANUEL Pharmacist Signed: 07/16/2024 12:31 JASMIN EMANUEL [facility]
--- OUTSIDE RECORDS SUMMARY | 2024-08-21 10:14 | XMS_ITS | Encounter Summary ---
Author Name [facility] [place] [facility] [place] Organization [facility] [place] Address [address] [place] [id number] Care Team Providers Care Table Cover Folder Name Role Phone PORTER YUKO Primary Care [...] PART A Oct 21, 2020 PART A [id number] [phone] Tabitha DAVIS PATIENT Selected Encounter This section includes the information on record at [place] for the Encounter. Date/Time Encounter Type Encounter Description Reason Pro vider Source Jul 09, 2024 10:18 AM Outpatient Encounter COMMUNITY CARE CONSULT IHE Encounter Template Text not used by [place] Plan of Treatment: Future Appointments (+ 6 [...] of theEncounter. The data comes from all [place] treatment facilities. Test Date/Time Test Type Test Details Facility Name Jun 17, 2024 09:46 AM Consult Order COMMUNITY CARE-INFEC DIS Cons [facility] [place] Jun 17, 2024 10:08 AM Consult Order COMMUNITY CARE-PODIATRY Cons [facility] Jul 01, 2024 09:46 AM Consult Order COMMUNITY CARE-HYPERBARIC PC Cons [facility] Jul 09, 2024 03:31 PM Consult Order COMMUNITY CARE-GEC SKILLED HOME CARE Cons [facility] Social History: Smoking Status (Most current) and Tobacco Use (All prior to encounter date) This section includes the most current, and the historical, smoking and tobacco- related health factors from the [place] facility where the Encounter took place. Current Smoking Status This section includes the most current smoking, or tobacco-related health factor, from the [place] facility where the Encounter took place. Date/Time Current Smoking Status Comment Facil ity Sep 30, 2023 11:58 PM VA-TOBACCO NEVER USED [facility] Tobacco Use History This section includes a history of the smoking, or tobacco-related health factors, that were collected on or before the date of the Encounter. The data comes from the [place] facility where the Encounter took place. Date/Time Smoking Status/Tobacco Use Comment F acility Sep 11, 2022 02:15 PM VA-TOBACCO NEVER USED [facility] Feb 16, 2019 02:36 PM VA-TOBACCO NEVER USED [facility] Encounter Notes: All associated encounter notes This section contains the clinical notes associated to the Encounter. Date/Time Encounter Note(s) Provider Source Jul 09, 2024 10:18 AM NONVA NOTE: LOCAL TITLE: COMMUNITY CARE-CARE COORDINATION PLAN NOTE STANDARD TITLE: NONVA NOTE DATE OF NOTE: JUL 09, 2024@10:18 ENTRY DATE: JUL 09, 2024@10:18:52 AUTHOR: NINI HANEY COSIGNER: URGENCY: STATUS: COMPLETED COMMUNITY CARE-CARE COORDINATION PLAN NOTE Has ADDENDA I received phone call from [facility] EUFEMIA/Janice [phone]. has a VAC and requiring SNV 2x/week for wound vac changes. Vet will be FU in [facility] wound clinic 1x/week and vac changed at that time. /viridiana/ Nini Haney BSN RN CRRN Brusher Machine Signed: 07/09/2024 10:21 Receipt Acknowledged By: 07/09/2024 14:09 /viridiana/ OBDULIA ORTIZ RN RN, BSN 07/10/2024 15:56 /viridiana/ YUKO BUENROSTRO Physician Tire Mechanic 07/09/2024 ADDENDUM STATUS: COMPLETED Can we restart the past consult for CC WOC ? /viridiana/ OBDULIA ORTIZ RN RN, BSN Signed: 07/09/2024 14:09 07/09/2024 ADDENDUM STATUS: COMPLETED consult placed /viridiana/ OBDULIA ORTIZ RN RN, BSN Signed: 07/09/2024 15:29 NINI HANEY [facility]
--- OUTSIDE RECORDS SUMMARY | 2024-08-21 10:14 | XMS_ITS | Encounter Summary ---
Author Name [facility] [place] Organization [facility] [place] Address [address] [place] [address] Care Team Providers Care Commercial Technician Name Role Phone YUKO BUENROSTRO Primary [...] PART A Oct 21, 2020 PART A [id number] [phone] Tabitha DAVIS PATIENT Selected Encounter This section includes the information on record at [place] for the Encounter. Date/Time Encounter Type Encounter Description Reason Pro vider Source Jun 25, 2024 12:00 PM Outpatient Encounter ADMIN PAT ACTIVTIES (MASNONCT) IHE Encounter Template Text not used by [place] Plan of Treatment: Future Appointments (+ 6 [...] of theEncounter. The data comes from all [place] treatment facilities. Test Date/Time Test Type Test Details Facility Name Jun 17, 2024 09:26 AM Consult Order COMMUNITY CARE-[facility] Jun 17, 2024 09:46 AM Consult Order INFECTIOUS DISEASE OUTPT [facility] Jun 17, 2024 10:08 AM Consult Order PODIATRY O UTPT [facility] Social History: Smoking Status (Most current) and Tobacco Use (All prior to encounter date) This section includes the most current, and the historical, smoking and tobacco- related health factors from the [place] facility where the Encounter took place. Current Smoking Status This section includes the most current smoking, or tobacco-related health factor, from the [place] facility where the Encounter took place. Date/Time Current Smoking Status Comment Facil ity Sep 30, 2023 11:58 PM VA-TOBACCO NEVER USED [facility] Tobacco Use History This section includes a history of the smoking, or tobacco-related health factors, that were collected on or before the date of the Encounter. The data comes from the [place] facility where the Encounter took place. Date/Time Smoking Status/Tobacco Use Comment F acility Sep 11, 2022 02:15 PM VA-TOBACCO NEVER USED [facility] Feb 16, 2019 02:36 PM VA-TOBACCO NEVER USED [facility] Encounter Notes: All associated encounter notes This section contains the clinical notes associated to the Encounter. Date/Time Encounter Note(s) Provider Source Jun 25, 2024 12:00 PM NONVA CONSULT: LOCAL TITLE: COMMUNITY CARE CONSULT RESULT WOUND CARE PC STANDARD TITLE: NONVA CONSULT DATE OF NOTE: JUN 25, 2024@12:00 ENTRY DATE: JUN 30, 2024@11:47:56 AUTHOR: IVETTE BENDER EXP COSIGNER: URGENCY: STATUS: COMPLETED VistA Imaging - Scanned Document SCANNED DOCUMENT SIGNATURE NOT REQUIRED Electronically Filed: 06/30/2024 by: IVETTE BENDER Bottle And Glass Inspector IVETTE LAROSE [facility]
--- OUTSIDE RECORDS SUMMARY | 2024-08-21 10:14 | XMS_ITS | Encounter Summary ---
Author Name [facility] [place] [place] Organization [facility] [place] Address [address] [place] [address] Care Team Providers Care Market Basket Maker Name Role Phone YUKO BUENROSTRO Primary Care [...] PART A Oct 21, 2020 PART A [id number] [phone] Tabitha DAVIS PATIENT Selected Encounter This section includes the information on record at [place] for the Encounter. Date/Time Encounter Type Encounter Description Reason Pro vider Source Jun 20, 2024 12:00 PM Outpatient Encounter PRIMARY CARE/MEDICINE IHE Encounter Template Text not used by [place] Plan of Treatment: Future Appointments (+ 6 months) and Future Tests (+/- 45 days) The Plan of Treatment section includes future care activities for the patient from all [place] treatmentfacilities. This section includes future appointments and future orders which are active, pending or scheduled. Future Appointments This section includes appointments that were scheduled to occur 6 months from the date of the Encounter, up to a maximum of 20 appointments. The data comes from all [place] treatment facilities. Appointment Date/Time Appointment Type Appointme nt Facility Name Jun 24, 2024 07:00 AM [facility] Jul 07, 2024 02:30 PM [facility]ATORY - NONE [facility] Jul 13, 2024 11:30 AM AMBULATORY - NONE [facility] Jul 16, 2024 01:45 PM AMBULATORY - NONE [facility] Jul 17, 2024 07:00 AM AMBULATORY - NONE [facility] Social History: Smoking Status (Most current) and Tobacco Use (All prior to encounter date) This section includes the most current, and the historical, smoking and tobacco- related health factors from the [place] facility where the Encounter took place. Current Smoking Status This section includes the most current smoking, or tobacco-related health factor, from the [place] facility where the Encounter took place. Date/Time Current Smoking Status Comment Facil ity Sep 30, 2023 11:58 PM VA-TOBACCO NEVER USED [facility] Tobacco Use History This section includes a history of the smoking, or tobacco-related health factors, that were collected on or before the date of the Encounter. The data comes from the [place] facility where the Encounter took place. Date/Time Smoking Status/Tobacco Use Comment F acility Sep 11, 2022 02:15 PM VA-TOBACCO NEVER USED [facility] Feb 16, 2019 02:36 PM VA-TOBACCO NEVER USED [facility] Encounter Notes: All associated encounter notes This section contains the clinical notes associated to the Encounter. Date/Time Encounter Note(s) Provider Source Jun 20, 2024 12:00 PM NONVA CONSULT: LOCAL TITLE: COMMUNITY CARE CONSULT RESULT IV THERAPY STANDARD TITLE: NONVA CONSULT DATE OF NOTE: JUN 20, 2024@12:00 ENTRY DATE: JUL 01, 2024@21:13 AUTHOR: BELLA HERNANDES EXP COSIGNER: URGENCY: STATUS: COMPLETED VistA Imaging - Scanned Document SCANNED DOCUMENT SIGNATURE NOT REQUIRED Electronically Filed: 07/01/2024 by: BELLA HERNANDES LPN LICENSED PRACTICAL NURSE BELLA HERNANDES [facility]
--- OUTSIDE RECORDS SUMMARY | 2024-08-21 10:15 | XMS_ITS | Encounter Summary ---
Author Name [facility] [place] [facility] [place] [place] Address [address] [place] [address] Care Team Providers Care Husbandry Person Name Role Phone YUKO BUENROSTRO Primary Care [...] PART A Oct 21, 2020 PART A [id number] [phone] Tabitha DAVIS PATIENT Selected Encounter This section includes the information on record at [place] for the Encounter. Date/Time Encounter Type Encounter Description Reason Pro vider Source Jul 07, 2024 12:00 PM Outpatient Encounter PRIMARY CARE/MEDICINE IHE Encounter Template Text not used by [place] Plan of Treatment: Future Appointments (+ 6 months) and Future Tests (+/- 45 days) The Plan of Treatment section includes future care activities for the patient from all [place] treatmentfacilities. This section includes future appointments and future orders which are active, pending or scheduled. Future Appointments This section includes appointments that were scheduled to occur 6 months from the date of the Encounter, up to a maximum of 20 appointments. The data comes from all [place] treatment facilities. Appointment Date/Time Appointment Type Appointme nt Facility Name Jul 13, 2024 11:30 AM [facility] Jul 16, 2024 01:45 PM AM[facility]ULATORY - NONE [facility] Jul 17, 2024 07:00 AM AMBULATORY - NONE [facility] Active, Pending, and Scheduled Orders This section includes a listing of several types of active, pending, and scheduled orders, including clinic medications orders, diagnostic test orders, procedure orders and consult orders; where the start date of the order is 45 days before the date of the Encounter or 45 days after the date of theEncounter. The data comes from all [place] treatment facilities. Test Date/Time Test Type Test Details Facility Name Jun 17, 2024 10:08 AM Consult Order COMMUNITY CARE-PODIATRY Cons Computer Lab Assistant's Choice [facility] Social History: Smoking Status (Most current) and Tobacco Use (All prior to encounter date) This section includes the most current, and the historical, smoking and tobacco- related health factors from the [place] facility where the Encounter took place. Current Smoking Status This section includes the most current smoking, or tobacco-related health factor, from the [place] facility where the Encounter took place. Date/Time Current Smoking Status Comment Facil ity Sep 30, 2023 11:58 PM VA-TOBACCO NEVER USED [facility] Tobacco Use History This section includes a history of the smoking, or tobacco-related health factors, that were collected on or before the date of the Encounter. The data comes from the [place] facility where the Encounter took place. Date/Time Smoking Status/Tobacco Use Comment F acility Sep 11, 2022 02:15 PM VA-TOBACCO NEVER USED [facility] Feb 16, 2019 02:36 PM VA-TOBACCO NEVER USED [facility] Encounter Notes: All associated encounter notes This section contains the clinical notes associated to the Encounter. Date/Time Encounter Note(s) Provider Source Jul 07, 2024 12:00 PM NONVA CONSULT: LOCAL TITLE: COMMUNITY CARE CONSULT RESULT INFECTIOUS DISEASE STANDARD TITLE: NONVA CONSULT DATE OF NOTE: JUL 07, 2024@12:00 ENTRY DATE: JUL 22, 2024@07:33 AUTHOR: CARMEN VERDIN EXP COSIGNER: URGENCY: STATUS: COMPLETED VistA Imaging - Scanned Document SCANNED DOCUMENT SIGNATURE NOT REQUIRED Electronically Filed: 07/22/2024 by: CARMEN VERDIN [facility] CARMEN VERDIN [facility] Jul 07, 2024 12:00 PM NONVA CONSULT: LOCAL TITLE: COMMUNITY CARE CONSULT RESULT INFECTIOUS DISEASE STANDARD TITLE: NONVA CONSULT DATE OF NOTE: JUL 07, 2024@12:00 ENTRY DATE: JUL 23, 2024@08:31:09 AUTHOR: ESTEBAN VELASQUEZ EXP COSIGNER: URGENCY: STATUS: COMPLETED VistA Imaging - Scanned Document SCANNED DOCUMENT SIGNATURE NOT REQUIRED Electronically Filed: 07/23/2024 by: ESTEBAN VELASQUEZ Lead Tape Folding Machine Operator ESTEBAN VELASQUEZ [facility] Jul 07, 2024 12:00 PM NONVA CONSULT: LOCAL TITLE: COMMUNITY CARE CONSULT RESULT INFECTIOUS DISEASE STANDARD TITLE: NONVA CONSULT DATE OF NOTE: JUL 07, 2024@12:00 ENTRY DATE: JUL 22, 2024@08:41:52 AUTHOR: DIONNE SHAVER EXP COSIGNER: URGENCY: STATUS: COMPLETED VistA Imaging - Scanned Document SCANNED DOCUMENT SIGNATURE NOT REQUIRED Electronically Filed: 07/22/2024 by: QUIANA [facility] INFORMATION SHUTTLELESS LOOM WEAVER DIONNE SHAVER [facility]
--- OUTSIDE RECORDS SUMMARY | 2024-08-21 10:15 | XMS_ITS | Encounter Summary ---
Author Name [facility] [place] [facility] [place] Address [address] [place] [address] Care Team Providers Care Curing Room Supervisor Name Role Phone PORTER YUKO Primary [...] PART A Oct 21, 2020 PART A [id number] [phone] Tabitha DAVIS PATIENT Selected Encounter This section includes the information on record at [place] for the Encounter. Date/Time Encounter Type Encounter Description Reason Pro vider Source Jul 23, 2024 08:31 AM Outpatient Encounter EVENT (HISTORICAL) IHE Encounter Template Text not used by [place] [...] 10:08 AM Consult Order COMMUNITY CARE-PODIATRY Cons Sap Pp Consultant's Choice [facility] Social History: Smoking Status (Most current) [...] 30, 2023 11:58 PM VA-TOBACCO NEVER USED [facility] Tobacco Use History This section includes a history of the smoking, or tobacco-related health factors, that were collected on or before the date of the Encounter. The data comes from the [place] facility where the Encounter took place. Date/Time Smoking Status/Tobacco Use Comment F acility Sep 11, 2022 02:15 PM VA-TOBACCO NEVER USED [facility] Feb 16, 2019 02:36 PM VA-TOBACCO NEVER USED [facility]
--- OUTSIDE RECORDS SUMMARY | 2024-08-21 10:15 | XMS_ITS | Encounter Summary ---
Author Name [facility] [place] [facility] [place] [facility] [place] Address [address] [place] [id number] Care Team Providers Care Chemical Supervisor Name Role Phone YUKO BUENROSTRO Primary [...] PART A Oct 21, 2020 PART A [id number] [phone] Tabitha DAVIS PATIENT Selected Encounter This section includes the information on record at [place] for the Encounter. Date/Time Encounter Type Encounter Description Reason Pro vider Source Jul 28, 2024 04:19 PM Outpatient Encounter TELEPHONE TRIAGE IHE Encounter Template Text not used by [place] Social History: Smoking Status (Most current) and Tobacco Use (All prior to encounter date) This section includes the most current, and the historical, smoking and tobacco- related health factors from the [place] facility where the Encounter took place. Current Smoking Status This section includes the most current smoking, or tobacco-related health factor, from the [place] facility where the Encounter took place. Date/Time Current Smoking Status Comment Facil ity Sep 30, 2023 11:58 PM VA-TOBACCO NEVER USED [facility] Tobacco Use History This section includes a history of the smoking, or tobacco-related health factors, that were collected on or before the date of the Encounter. The data comes from the [place] facility where the Encounter took place. Date/Time Smoking Status/Tobacco Use Comment F acility Sep 11, 2022 02:15 PM VA-TOBACCO NEVER USED [facility] Feb 16, 2019 02:36 PM VA-TOBACCO NEVER USED [facility] Encounter Notes: All associated encounter notes This section contains the clinical notes associated to the Encounter. Date/Time Encounter Note(s) Provider Source Jul 28, 2024 04:19 PM ADMINISTRATIVE NOT E: LOCAL TITLE: CCC: SCHEDULING ADMINISTRATION STANDARD TITLE: ADMINISTRATIVE NOTE DATE OF NOTE: JUL 28, 2024@16:19 ENTRY DATE: JUL 28, 2024@16:19:41 AUTHOR: PAULINA VELAZQUEZ EXP COSIGNER: URGENCY: STATUS: COMPLETED Primary Care Call Center Primary Care Provider Call. Please contact at the following number: [phone] Other: Nurse José Miguel with [facility] called concerning wound care supplies. She would like to know if the fax was received on 07/24/2024. The fax was set to [phone]. Please contact nurse at the number above. This note was created by a 3 [facility] Call Center LEA/GALO. Please do not alert this grant writer by adding as a signer for future communications. Alerts are not monitored by this user, please reach out to [facility] Leadership instead if indicated. /viridiana/ PAULINA VELAZQUEZ MSA,[id number] Signed: 07/28/2024 16:25 Receipt Acknowledged By: 07/29/2024 11:39 /viridiana/ OBDULIA ORTIZ RN RN, BSN PAULINA VELAZQUEZ [facility]
--- OUTSIDE RECORDS SUMMARY | 2024-08-21 10:15 | XMS_ITS | Encounter Summary ---
Author Name [facility] [place] [place] Organization [facility] [place] Address [address] [place] [address] Care Team Providers Care Media Center Specialist Name Role Phone YUKO BUENROSTRO Primary [...] PART A Oct 21, 2020 PART A [id number] [phone] Tabitha DAVIS PATIENT Selected Encounter This section includes the information on record at [place] for the Encounter. Date/Time Encounter Type Encounter Description Reason Pro vider Source Jul 21, 2024 12:00 PM Outpatient Encounter PRIMARY CARE/MEDICINE IHE Encounter Template Text not used by [place] Social History: Smoking Status (Most current) and [...] 30, 2023 11:58 PM VA-TOBACCO NEVER USED [facility] Tobacco Use History This section includes a history of the smoking, or tobacco-related health factors, that were collected on or before the date of the Encounter. The data comes from the [place] facility where the Encounter took place. Date/Time Smoking Status/Tobacco Use Comment Sundar acility Sep 11, 2022 02:15 PM VA-TOBACCO NEVER USED [facility] Feb 16, 2019 02:36 PM VA-TOBACCO NEVER USED [facility] Encounter Notes: All associated encounter notes This section contains the clinical notes associated to the Encounter. Date/Time Encounter Note(s) Provider Source Jul 21, 2024 12:00 PM NONVA CONSULT: LOCAL TITLE: COMMUNITY CARE CONSULT RESULT INFECTIOUS DISEASE STANDARD TITLE: NONVA CONSULT DATE OF NOTE: JUL 21, 2024@12:00 ENTRY DATE: JUL 22, 2024@14:19:37 AUTHOR: BELLA HERNANDES EXP COSIGNER: URGENCY: STATUS: COMPLETED VistA Imaging - Scanned Document SCANNED DOCUMENT SIGNATURE NOT REQUIRED Electronically Filed: 07/22/2024 by: BELLA HERNANDES LPN LICENSED PRACTICAL NURSE BELLA HERNANDES [facility] Jul 21, 2024 12:00 PM NONVA CONSULT: LOCAL TITLE: COMMUNITY CARE CONSULT RESULT WOUND CARE PC STANDARD TITLE: NONVA CONSULT DATE OF NOTE: JUL 21, 2024@12:00 ENTRY DATE: JUL 31, 2024@11:02:28 AUTHOR: BELLA HERNANDES EXP COSIGNER: URGENCY: STATUS: COMPLETED VistA Imaging - Scanned Document SCANNED DOCUMENT SIGNATURE NOT REQUIRED Electronically Filed: 07/31/2024 by: BELLA HERNANDES LPN LICENSED PRACTICAL NURSE BELLA HERNANDES [facility]
--- OUTSIDE RECORDS SUMMARY | 2024-08-21 10:15 | XMS_ITS | Encounter Summary ---
Author Name [facility] [place] Organization [facility] [place] [place] Address [address] [place] [address] Care Team Providers Care University Services Program Associate Name Role Phone YUKO BUENROSTRO Primary Care [...] PART A Oct 21, 2020 PART A [id number] [phone] Tabitha DAVIS PATIENT Selected Encounter This section includes the information on record at [place] for the Encounter. Date/Time Encounter Type Encounter Description Reason Pro vider Source Jul 14, 2024 12:00 PM Outpatient Encounter PRIMARY CARE/MEDICINE IHE Encounter Template Text not used by [place] Plan of Treatment: Future Appointments (+ 6 months) and Future Tests (+/- 45 days) The Plan of Treatment section includes future care activities for the patient from all [place] treatmentfacilities. This section includes future appointments and future orders which are active, pending or scheduled. Future Appointments This section includes appointments that were scheduled to occur 6 months from the date of the Encounter, up to a maximum of 20 appointments. The data comes from all [place] treatment facilities. Appointment Date/Time Appointment Type Appointme nt Facility Name Jul 16, 2024 01:45 PM [facility] Jul 17, 2024 07:00 AM AMBULATORY - NONE [facility] Social History: Smoking Status (Most current) and Tobacco Use (All prior to encounter date) This section includes the most current, and the historical, smoking and tobacco- related health factors from the [place] facility where the Encounter took place. Current Smoking Status This section includes the most current smoking, or tobacco-related health factor, from the [place] facility where the Encounter took place. Date/Time Current Smoking Status Comment Randall ity Sep 30, 2023 11:58 PM VA-TOBACCO NEVER USED [facility] Tobacco Use History This section includes a history of the smoking, or tobacco-related health factors, that were collected on or before the date of the Encounter. The data comes from the [place] facility where the Encounter took place. Date/Time Smoking Status/Tobacco Use Comment Sundar acbehzad Sep 11, 2022 02:15 PM VA-TOBACCO NEVER USED [facility] Feb 16, 2019 02:36 PM VA-TOBACCO NEVER USED [facility] Encounter Notes: All associated encounter notes This section contains the clinical notes associated to the Encounter. Date/Time Encounter Note(s) Provider Source Jul 14, 2024 12:00 PM NONVA CONSULT: LOCAL TITLE: COMMUNITY CARE CONSULT RESULT WOUND CARE PC STANDARD TITLE: NONVA CONSULT DATE OF NOTE: JUL 14, 2024@12:00 ENTRY DATE: JUL 21, 2024@10:09:14 AUTHOR: TRACEE PALMA EXP COSIGNER: URGENCY: STATUS: COMPLETED VistA Imaging - Scanned Document SCANNED DOCUMENT SIGNATURE NOT REQUIRED Electronically Filed: 07/21/2024 by: TRACEE PALMA LPN Staff Nurse TRACEE PALMA [facility] Jul 14, 2024 12:00 PM NONVA CONSULT: LOCAL TITLE: COMMUNITY CARE CONSULT RESULT IV THERAPY STANDARD TITLE: NONVA CONSULT DATE OF NOTE: JUL 14, 2024@12:00 ENTRY DATE: JUL 29, 2024@21:02:46 AUTHOR: BELLA HERNANDES EXP COSIGNER: URGENCY: STATUS: COMPLETED VistA Imaging - Scanned Document SCANNED DOCUMENT SIGNATURE NOT REQUIRED Electronically Filed: 07/29/2024 by: BELLA HERNANDES LPN LICENSED PRACTICAL NURSE BELLA HERNANDES [facility] Jul 14, 2024 12:00 PM NONVA CONSULT: LOCAL TITLE: COMMUNITY CARE CONSULT RESULT IV THERAPY STANDARD TITLE: NONVA CONSULT DATE OF NOTE: JUL 14, 2024@12:00 ENTRY DATE: AUG 10, 2024@13:54:20 AUTHOR: BELLA HERNANDES EXP COSIGNER: URGENCY: STATUS: COMPLETED VistA Imaging - Scanned Document SCANNED DOCUMENT SIGNATURE NOT REQUIRED Electronically Filed: 08/10/2024 by: BELLA HERNANDES LPN LICENSED PRACTICAL NURSE BELLA HERNANDES [facility]
--- OUTSIDE RECORDS SUMMARY | 2024-08-21 10:15 | XMS_ITS | Encounter Summary ---
Author Name [facility] [facility] [place] Organization [facility] [place] Address [address] [place] [address] Care Team Providers Care Redeye Gunner Name Role Phone YUKO BUENROSTRO Primary Care [...] PART A Oct 21, 2020 PART A [id number] [phone] Tabitha DAVIS PATIENT Selected Encounter This section includes the information on record at [place] for the Encounter. Date/Time Encounter Type Encounter Description Reason Pro vider Source Jul 17, 2024 12:00 PM Outpatient Encounter PRIMARY CARE/MEDICINE IHE Encounter Template Text not used by [place] Social History: Smoking Status (Most current) and [...] place. Date/Time Current Smoking Status Comment Facil collin Sep 30, 2023 11:58 PM VA-TOBACCO NEVER USED [facility] Tobacco Use History This section includes a history of the smoking, or tobacco-related health factors, that were collected on or before the date of the Encounter. The data comes from the [place] facility where the Encounter took place. Date/Time Smoking Status/Tobacco Use Comment F acility Sep 11, 2022 02:15 PM VA-TOBACCO NEVER USED [facility] Feb 16, 2019 02:36 PM VA-TOBACCO NEVER USED [facility] Encounter Notes: All associated encounter notes This section contains the clinical notes associated to the Encounter. Date/Time Encounter Note(s) Provider Source Jul 17, 2024 12:00 PM NONVA CONSULT: LOCAL TITLE: COMMUNITY CARE CONSULT RESULT HYPERBARIC THERAPY PC STANDARD TITLE: NONVA CONSULT DATE OF NOTE: JUL 17, 2024@12:00 ENTRY DATE: JUL 28, 2024@08:14:06 AUTHOR: ABDULLAHI JIMÉNEZ EXP COSIGNER: URGENCY: STATUS: COMPLETED VistA Imaging - Scanned Document blood glucose-labs SCANNED DOCUMENT SIGNATURE NOT REQUIRED Electronically Filed: 07/28/2024 by: ABDULLAHI JIMÉNEZ LPN LICENSED PRACTICAL NURSE ABDULLAHI JIMÉNEZ [facility] Jul 17, 2024 12:00 PM NONVA CONSULT: LOCAL TITLE: COMMUNITY CARE CONSULT RESULT WOUND CARE PC STANDARD TITLE: NONVA CONSULT DATE OF NOTE: JUL 17, 2024@12:00 ENTRY DATE: JUL 28, 2024@09:52:34 AUTHOR: ABDULLAHI JIMÉNEZ EXP COSIGNER: URGENCY: STATUS: COMPLETED VistA Imaging - Scanned Document WOUND ASSESSMENT-IMAGE SCANNED DOCUMENT SIGNATURE NOT REQUIRED Electronically Filed: 07/28/2024 by: ABDULLAHI JIMÉNEZ LPN LICENSED PRACTICAL NURSE ABDULLAHI JIMÉNEZ [facility]
--- OUTSIDE RECORDS SUMMARY | 2024-08-21 10:15 | XMS_ITS | Encounter Summary ---
Author Name [facility] [place] [place] Organization [facility] [place] Address [address] [place] [address] Care Team Providers Care Press Feeder Name Role Phone YUKO BUENROSTRO Primary Care [...] PART A Oct 21, 2020 PART A [id number] [phone] Tabitha DAVIS PATIENT Selected Encounter This section includes the information on record at [place] for the Encounter. Date/Time Encounter Type Encounter Description Reason Pro vider Source Jul 16, 2024 12:00 PM Outpatient Encounter PRIMARY CARE/MEDICINE [...] 20 appointments. The data comes from all [place] treatment facilities. Appointment Date/Time Appointment Type Appointme nt Facility Name Jul 17, 2024 07:00 AM AMBULATORY - NONE [facility] Social History: Smoking Status (Most [...] 30, 2023 11:58 PM VA-TOBACCO NEVER USED [facility] Tobacco Use History This section includes a history of the smoking, or tobacco-related health factors, that were collected on or before the date of the Encounter. The data comes from the [place] facility where the Encounter took place. Date/Time Smoking Status/Tobacco Use Comment F acility Sep 11, 2022 02:15 PM VA-TOBACCO NEVER USED [facility] Feb 16, 2019 02:36 PM VA-TOBACCO NEVER USED [facility] Encounter Notes: All associated encounter notes This section contains the clinical notes associated to the Encounter. Date/Time Encounter Note(s) Provider Source Jul 16, 2024 12:00 PM NONVA CONSULT: LOCAL TITLE: COMMUNITY CARE CONSULT RESULT WOUND CARE PC STANDARD TITLE: NONVA CONSULT DATE OF NOTE: JUL 16, 2024@12:00 ENTRY DATE: JUL 23, 2024@11:00:44 AUTHOR: TRACEE PALMA EXP COSIGNER: URGENCY: STATUS: COMPLETED VistA Imaging - Scanned Document SCANNED DOCUMENT SIGNATURE NOT REQUIRED Electronically Filed: 07/23/2024 by: TRACEE PALMA LPN Staff Nurse TRACEE PALMA [facility] Jul 16, 2024 12:00 PM NONVA CONSULT: LOCAL TITLE: COMMUNITY CARE CONSULT RESULT PODIATRY STANDARD TITLE: NONVA CONSULT DATE OF NOTE: JUL 16, 2024@12:00 ENTRY DATE: JUL 23, 2024@11:04:06 AUTHOR: TRACEE PALMA EXP COSIGNER: URGENCY: STATUS: COMPLETED VistA Imaging - Scanned Document SCANNED DOCUMENT SIGNATURE NOT REQUIRED Electronically Filed: 07/23/2024 by: TRACEE PALMA LPN Staff Nurse TRACEE PALMA [facility]
--- OUTSIDE RECORDS SUMMARY | 2024-08-21 10:15 | XMS_ITS | Encounter Summary ---
Author Name [facility] [place] [facility] [place] Address [address] [place] [address] Care Team Providers Care Tea Bag Packer Name Role Phone YUKO BUENROSTRO Primary Care [...] PART A Oct 21, 2020 PART A [id number] [phone] Tabitha DAVIS PATIENT Selected Encounter This section includes the information on record at [place] for the Encounter. Date/Time Encounter Type Encounter Description Reason Pro vider Source Jul 22, 2024 12:00 PM Outpatient Encounter PRIMARY CARE/MEDICINE IHE Encounter Template Text not used by [place] Social History: Smoking Status (Most current) and [...] 30, 2023 11:58 PM VA-TOBACCO NEVER USED [facility] Tobacco Use History This section includes a history of the smoking, or tobacco-related health factors, that were collected on or before the date of the Encounter. The data comes from the [place] facility where the Encounter took place. Date/Time Smoking Status/Tobacco Use Comment F acility Sep 11, 2022 02:15 PM VA-TOBACCO NEVER USED [facility] Feb 16, 2019 02:36 PM VA-TOBACCO NEVER USED [facility] Encounter Notes: All associated encounter notes This section contains the clinical notes associated to the Encounter. Date/Time Encounter Note(s) Provider Source Jul 22, 2024 12:00 PM NONVA CONSULT: LOCAL TITLE: COMMUNITY CARE CONSULT RESULT WOUND CARE PC STANDARD TITLE: NONVA CONSULT DATE OF NOTE: JUL 22, 2024@12:00 ENTRY DATE: AUG 04, 2024@09:44:20 AUTHOR: TRACEE PALMA EXP COSIGNER: URGENCY: STATUS: COMPLETED VistA Imaging - Scanned Document SCANNED DOCUMENT SIGNATURE NOT REQUIRED Electronically Filed: 08/04/2024 by: TRACEE PALMA LPN Staff Nurse TRACEE PALMA [facility]
--- OUTSIDE RECORDS SUMMARY | 2024-08-21 10:15 | XMS_ITS | Encounter Summary ---
Author Name [facility] [place] [place] Organization [facility] [place] Address [address] [place] [address] Care Team Providers Care Ceramics Artist Name Role Phone YUKO BUENROSTRO Primary Care [...] PART A Oct 21, 2020 PART A [id number] [phone] Tabitha DAVIS PATIENT Selected Encounter This section includes the information on record at [place] for the Encounter. Date/Time Encounter Type Encounter Description Reason Pro vider Source Jul 20, 2024 12:00 PM Outpatient Encounter PRIMARY CARE/MEDICINE IHE Encounter Template Text not used by [place] Social History: Smoking Status (Most current) and Tobacco Use (All prior to encounter date) This section includes the most current, and the historical, smoking and tobacco- related health factors from the [place] facility where the Encounter took place. Current Smoking Status This section includes the most current smoking, or tobacco-related health factor, from the [place] facility where the Encounter took place. Date/Time Current Smoking Status Comment Randall polanco Sep 30, 2023 11:58 PM VA-TOBACCO NEVER USED [facility] Tobacco Use History This section includes a history of the smoking, or tobacco-related health factors, that were collected on or before the date of the Encounter. The data comes from the [place] facility where the Encounter took place. Date/Time Smoking Status/Tobacco Use Comment F acility Sep 11, 2022 02:15 PM VA-TOBACCO NEVER USED [facility] Feb 16, 2019 02:36 PM VA-TOBACCO NEVER USED [facility] Encounter Notes: All associated encounter notes This section contains the clinical notes associated to the Encounter. Date/Time Encounter Note(s) Provider Source Jul 20, 2024 12:00 PM NONVA CONSULT: LOCAL TITLE: COMMUNITY CARE CONSULT RESULT WOUND CARE PC STANDARD TITLE: NONVA CONSULT DATE OF NOTE: JUL 20, 2024@12:00 ENTRY DATE: JUL 23, 2024@11:03:04 AUTHOR: TRACEE PALMA EXP COSIGNER: URGENCY: STATUS: COMPLETED VistA Imaging - Scanned Document SCANNED DOCUMENT SIGNATURE NOT REQUIRED Electronically Filed: 07/23/2024 by: TRACEE PALMA LPN Staff Nurse TRACEE PALMA [facility]
--- OUTSIDE RECORDS SUMMARY | 2024-08-21 10:16 | XMS_ITS | Encounter Summary ---
Author Name [facility] [place] Organization [place] Address [address] [place] [address] Care Team Providers Care Mail Order Biller Name Role Phone YUKO BUENROSTRO Primary Care [...] PART A Oct 21, 2020 PART A [id number] [phone] Tabitha DAVIS PATIENT Selected Encounter This section includes the information on record at [place] for the Encounter. Date/Time Encounter Type Encounter Description Reason Pro vider Source Jul 23, 2024 12:00 PM Outpatient Encounter PRIMARY CARE/MEDICINE IHE Encounter Template Text not used by [place] Social History: Smoking Status (Most current) and Tobacco Use (All prior to encounter date) This section includes the most current, and the historical, smoking and tobacco- related health factors from the [place] facility where the Encounter took place. Current Smoking Status This section includes the most current smoking, or tobacco-related health factor, from the [place] facility where the Encounter took place. Date/Time Current Smoking Status Comment Randall polanco Sep 30, 2023 11:58 PM VA-TOBACCO NEVER USED [facility] Tobacco Use History This section includes a history of the smoking, or tobacco-related health factors, that were collected on or before the date of the Encounter. The data comes from the [place] facility where the Encounter took place. Date/Time Smoking Status/Tobacco Use Comment F acility Sep 11, 2022 02:15 PM VA-TOBACCO NEVER USED [facility] Feb 16, 2019 02:36 PM VA-TOBACCO NEVER USED [facility] Encounter Notes: All associated encounter notes This section contains the clinical notes associated to the Encounter. Date/Time Encounter Note(s) Provider Source Jul 23, 2024 12:00 PM NONVA CONSULT: LOCAL TITLE: COMMUNITY CARE CONSULT RESULT WOUND CARE PC STANDARD TITLE: NONVA CONSULT DATE OF NOTE: JUL 23, 2024@12:00 ENTRY DATE: AUG 05, 2024@10:01:55 AUTHOR: TRACEE PALMA EXP COSIGNER: URGENCY: STATUS: COMPLETED VistA Imaging - Scanned Document SCANNED DOCUMENT SIGNATURE NOT REQUIRED Electronically Filed: 08/05/2024 by: TRACEE PALMA LPN Staff Nurse TRACEE PALMA [facility]
--- OUTSIDE RECORDS SUMMARY | 2024-08-21 10:16 | XMS_ITS | Encounter Summary ---
Author Name [facility] [place] Address [address] [place] [address] Care Team Providers Care Biofuels Operations Manager Name Role Phone PORTER YUKO Primary Care [...] PART A Oct 21, 2020 PART A [id number] [phone] Tabitha DAVIS PATIENT Selected Encounter This section includes the information on record at [place] for the Encounter. Date/Time Encounter Type Encounter Description Reason Pro vider Source Aug 08, 2024 09:26 AM Outpatient Encounter EVENT (HISTORICAL) IHE Encounter Template Text not used by [place] Social History: Smoking Status (Most current) and Tobacco Use (All prior to encounter date) This section includes the most current, and the historical, smoking and tobacco- related health factors from the [place] facility where the Encounter took place. Current Smoking Status This section includes the most current smoking, or tobacco-related health factor, from the [place] facility where the Encounter took place. Date/Time Current Smoking Status Comment Randall polanco Sep 30, 2023 11:58 PM VA-TOBACCO NEVER USED [facility] Tobacco Use History This section includes a history of the smoking, or tobacco-related health factors, that were collected on or before the date of the Encounter. The data comes from the [place] facility where the Encounter took place. Date/Time Smoking Status/Tobacco Use Comment F acility Sep 11, 2022 02:15 PM [place]-TOBACCO NEVER USED [facility] Feb 16, 2019 02:36 PM [place]-TOBACCO NEVER USED [facility]
--- OUTSIDE RECORDS SUMMARY | 2024-08-21 10:16 | XMS_ITS | Encounter Summary ---
Author Name [facility] [place] Organization [facility] [place] Address [address] [place] [address] Care Team Providers Care Bullet Slug Casting Machine Operator Name Role Phone YUKO BUENROSTRO Primary Care [...] PART A Oct 21, 2020 PART A [id number] [phone] Tabitha DAVIS PATIENT Selected Encounter This section includes the information on record at [place] for the Encounter. Date/Time Encounter Type Encounter Description Reason Pro vider Source Jul 29, 2024 12:00 PM Outpatient Encounter PRIMARY CARE/MEDICINE [...] 30, 2023 11:58 PM VA-TOBACCO NEVER USED [facility] Tobacco Use History This section includes a history of the smoking, or tobacco-related health factors, that were collected on or before the date of the Encounter. The data comes from the [place] facility where the Encounter took place. Date/Time Smoking Status/Tobacco Use Comment F acility Sep 11, 2022 02:15 PM VA-TOBACCO NEVER USED [facility] Feb 16, 2019 02:36 PM VA-TOBACCO NEVER USED [facility] Encounter Notes: All associated encounter notes This section contains the clinical notes associated to the Encounter. Date/Time Encounter Note(s) Provider Source Jul 29, 2024 12:00 PM NONVA CONSULT: LOCAL TITLE: COMMUNITY CARE CONSULT RESULT HYPERBARIC THERAPY STANDARD TITLE: NONVA CONSULT DATE OF NOTE: JUL 29, 2024@12:00 ENTRY DATE: AUG 05, 2024@10:08:09 AUTHOR: TRACEE PALMA EXP COSIGNER: URGENCY: STATUS: COMPLETED VistA Imaging - Scanned Document SCANNED DOCUMENT SIGNATURE NOT REQUIRED Electronically Filed: 08/05/2024 by: TRACEE PALMA LPN Staff Nurse TRACEE PALMA [facility]
--- OUTSIDE RECORDS SUMMARY | 2024-08-21 10:16 | XMS_ITS | Encounter Summary ---
Author Name [facility] [place] [place] Organization [facility] [place] Address [address] [place] [address] Care Team Providers Care Shear Operator Automatic Name Role Phone PORTER YUKO Primary Care [...] PART A Oct 21, 2020 PART A [id number] [phone] Tabitha DAVIS PATIENT Selected Encounter This section [...] 2023 11:58 PM VA-TOBACCO NEVER USED [facility] Tobacco Use History This section includes a history of the smoking, or tobacco-related health factors, that were collected on or before the date of the Encounter. The data comes from the [place] facility where the Encounter took place. Date/Time Smoking Status/Tobacco Use Comment F acility Sep 11, 2022 02:15 PM SC-TOBACCO NEVER USED [facility] Feb 16, 2019 02:36 PM [place]-TOBACCO NEVER USED [facility]
--- OUTSIDE RECORDS SUMMARY | 2024-08-21 10:16 | XMS_ITS | Encounter Summary ---
Author Name [facility] [place] [facility] [place] Organization [facility] [place] Address [address] [place] [address] Care Team Providers Care Quality Assurance Project Manager Name Role Phone PORTER YUKO Primary [...] PART A Oct 21, 2020 PART A [id number] [phone] Tabitha DAVIS PATIENT Selected Encounter This section includes the information on record at [place] for the Encounter. Date/Time Encounter Type Encounter Description Reason Pro vider Source Aug 08, 2024 09:31 AM Outpatient Encounter EVENT (HISTORICAL) IHE Encounter [...] 30, 2023 11:58 PM VA-TOBACCO NEVER USED [facility] Tobacco Use History This section includes a history of the smoking, or tobacco-related health factors, that were collected on or before the date of the Encounter. The data comes from the [place] facility where the Encounter took place. Date/Time Smoking Status/Tobacco Use Comment F acility Sep 11, 2022 02:15 PM [place]-TOBACCO NEVER USED [facility] Feb 16, 2019 02:36 PM [place]-TOBACCO NEVER USED [facility]
--- OUTSIDE RECORDS SUMMARY | 2024-08-21 10:16 | XMS_ITS | Encounter Summary ---
Author Name [facility] [place] Address [address] [place] [address] Care Team Providers Care Donor Services Team Leader Name Role Phone PORTER YUKO Primary Care [...] PART A Oct 21, 2020 PART A [id number] [phone] Tabitha DAVIS PATIENT Selected Encounter This section includes the information on record at [place] for the Encounter. Date/Time Encounter Type Encounter Description Reason Pro vider Source Aug 08, 2024 09:41 AM Outpatient Encounter EVENT (HISTORICAL) IHE Encounter Template Text not used by [place] Social History: Smoking Status (Most current) and Tobacco Use (All prior to encounter date) This section includes the most current, and the historical, smoking and tobacco- related health factors from the [place] facility where the Encounter took place. Current Smoking Status This section includes the most current smoking, or tobacco-related health factor, from the [place] facility where the Encounter took place. Date/Time Current Smoking Status Comment Randall polanco Sep 30, 2023 11:58 PM VA-TOBACCO NEVER USED [facility] Tobacco Use History This section includes a history of the smoking, or tobacco-related health factors, that were collected on or before the date of the Encounter. The data comes from the [place] facility where the Encounter took place. Date/Time Smoking Status/Tobacco Use Comment F acility Sep 11, 2022 02:15 PM [place]-TOBACCO NEVER USED [facility] Feb 16, 2019 02:36 PM [place]-TOBACCO NEVER USED [facility]
--- OUTSIDE RECORDS SUMMARY | 2024-08-21 10:16 | XMS_ITS | Encounter Summary ---
Author Name [facility] [place] [facility] [place] Organization [facility] [place] Address [address] [place] [address] Care Team Providers Care Bisque Cleaner Name Role Phone PORTER YUKO Primary Care [...] PART A Oct 21, 2020 PART A [id number] [phone] Tabitha DAVIS PATIENT Selected Encounter This section includes the information on record at [place] for the Encounter. Date/Time Encounter Type Encounter Description Reason Pro vider Source Aug 08, 2024 09:22 AM Outpatient Encounter EVENT (HISTORICAL) IHE Encounter [...] 30, 2023 11:58 PM VA-TOBACCO NEVER USED [facility] Tobacco Use History This section includes a history of the smoking, or tobacco-related health factors, that were collected on or before the date of the Encounter. The data comes from the [place] facility where the Encounter took place. Date/Time Smoking Status/Tobacco Use Comment F acility Sep 11, 2022 02:15 PM [place]-TOBACCO NEVER USED [facility] Feb 16, 2019 02:36 PM [place]-TOBACCO NEVER USED [facility]
--- OUTSIDE RECORDS SUMMARY | 2024-08-21 10:16 | XMS_ITS | Encounter Summary ---
Author Name [facility] [place] [facility] [place] [facility] [place] Address [address] [place] [address] Care Team Providers Care Sales Service Representative Name Role Phone PORTER YUKO Primary Care [...] PART A Oct 21, 2020 PART A [id number] Tabitha DAVIS PATIENT Selected Encounter This section includes the information on record at [place] for the Encounter. Date/Time Encounter Type Encounter Description Reason Pro vider Source Aug 08, 2024 09:21 AM Outpatient Encounter EVENT (HISTORICAL) IHE Encounter Template Text not used by [facility] Social History: Smoking Status (Most current) and Tobacco Use (All prior to encounter date) This section includes the most current, and the historical, smoking and tobacco- related health factors from the [place] facility where the Encounter took place. Current Smoking Status This section includes the most current smoking, or tobacco-related health factor, from the [place] facility where the Encounter took place. Date/Time Current Smoking Status Comment Randall polanco Sep 30, 2023 11:58 PM VA-TOBACCO NEVER USED [facility] Tobacco Use History This section includes a history of the smoking, or tobacco-related health factors, that were collected on or before the date of the Encounter. The data comes from the [place] facility where the Encounter took place. Date/Time Smoking Status/Tobacco Use Comment F acility Sep 11, 2022 02:15 PM [place]-TOBACCO NEVER USED [facility] Feb 16, 2019 02:36 PM [place]-TO[place]AC[place] NEVER USED [facility]
--- OUTSIDE RECORDS SUMMARY | 2024-08-21 10:16 | XMS_ITS | Encounter Summary ---
Author Name [facility] [place] [place] [facility] [place] Address [address] [place] [address] Care Team Providers Care Digital Marketing Officer Name Role Phone YUKO BUENROSTRO Primary Care [...] PART A Oct 21, 2020 PART A [phone] Tabitha DAVIS PATIENT Selected Encounter This section includes the information on record at [place] for the Encounter. Date/Time Encounter Type Encounter Description Reason Pro vider Source Jul 27, 2024 12:00 PM Outpatient Encounter PRIMARY CARE/MEDICINE IHE Encounter Template Text not used by [place] Social History: Smoking Status (Most current) and [...] 11, 2022 02:15 PM VA-TOBACCO NEVER USED [facility] Feb 16, 2019 02:36 PM VA-TOBACCO NEVER USED [facility] Encounter Notes: All associated encounter notes This section contains the clinical notes associated to the Encounter. Date/Time Encounter Note(s) Provider Source Jul 27, 2024 12:00 PM NONVA CONSULT: LOCAL TITLE: COMMUNITY CARE CONSULT RESULT HYPERBARIC THERAPY STANDARD TITLE: NONVA CONSULT DATE OF NOTE: JUL 27, 2024@12:00 ENTRY DATE: AUG 05, 2024@10:04:46 AUTHOR: TRACEE PALMA EXP COSIGNER: URGENCY: STATUS: COMPLETED VistA Imaging - Scanned Document SCANNED DOCUMENT SIGNATURE NOT REQUIRED Electronically Filed: 08/05/2024 by: TRACEE PALMA LPN Staff Nurse TRACEE PALMA [facility]
--- OUTSIDE RECORDS SUMMARY | 2024-08-21 10:16 | XMS_ITS | Encounter Summary ---
Author Name [facility] [place] [facility] [place] [facility] [place] Address [address] [place] [address] Care Team Providers Care Naphtha Washing System Operator Name Role Phone YUKO BUENROSTRO Primary [...] PART A Oct 21, 2020 PART A [id number] Tabitha DAVIS PATIENT Selected Encounter This section includes the information on record at [place] for the Encounter. Date/Time Encounter Type Encounter Description Reason Pro vider Source Jul 24, 2024 12:00 PM Outpatient Encounter PRIMARY CARE/MEDICINE IHE Encounter Template Text not used by [place] Social History: Smoking Status (Most current) and [...] 30, 2023 11:58 PM VA-TOBACCO NEVER USED [facility] Tobacco Use History This section includes a history of the smoking, or tobacco-related health factors, that were collected on or before the date of the Encounter. The data comes from the [place] facility where the Encounter took place. Date/Time Smoking Status/Tobacco Use Comment F acility Sep 11, 2022 02:15 PM VA-TOBACCO NEVER USED [facility] Feb 16, 2019 02:36 PM VA-TOBACCO NEVER USED [facility] Encounter Notes: All associated encounter notes This section contains the clinical notes associated to the Encounter. Date/Time Encounter Note(s) Provider Source Jul 24, 2024 12:00 PM NONVA CONSULT: LOCAL TITLE: COMMUNITY CARE CONSULT RESULT WOUND CARE PC STANDARD TITLE: NONVA CONSULT DATE OF NOTE: JUL 24, 2024@12:00 ENTRY DATE: AUG 04, 2024@09:45:13 AUTHOR: TRACEE PALMA EXP COSIGNER: URGENCY: STATUS: COMPLETED VistA Imaging - Scanned Document SCANNED DOCUMENT SIGNATURE NOT REQUIRED Electronically Filed: 08/04/2024 by: TRACEE PALMA LPN Staff Nurse TRACEE PALMA [facility]
--- OUTSIDE RECORDS SUMMARY | 2024-08-21 10:16 | XMS_ITS | Encounter Summary ---
Author Name [facility] [place] [place] Organization [facility] [place] Address [address] [place] [address] Care Team Providers Care Automation Mechanic Name Role Phone PORTER YUKO Primary Care [...] PART A Oct 21, 2020 PART A [phone] Tabitha DAVIS PATIENT Selected Encounter This section [...] the Encounter. The data comes from the [place] facility where the Encounter took place. Date/Time Smoking Status/Tobacco Use Comment F acility Sep 11, 2022 02:15 PM [place]-TOBACCO NEVER USED [facility] Feb 16, 2019 02:36 PM [place]-TOBACCO NEVER USED [facility]
--- OUTSIDE RECORDS SUMMARY | 2024-08-21 10:17 | XMS_ITS | Encounter Summary ---
Author Name [facility] [place] [place] [facility] [place] Address [address] [place] [address] Care Team Providers Care Client Care Consultant Name Role Phone YUKO BUENROSTRO Primary Care [...] PART A Oct 21, 2020 PART A [id number] [phone] Tabitha DAVIS PATIENT Selected Encounter This section includes the information on record at [place] for the Encounter. Date/Time Encounter Type Encounter Description Reason Pro vider Source Aug 10, 2024 12:00 PM Outpatient Encounter PRIMARY CARE/MEDICINE IHE Encounter Template Text not used by [place] Social History: Smoking Status (Most current) and [...] 30, 2023 11:58 PM VA-TOBACCO NEVER USED [facility] Tobacco Use History This section includes a history of the smoking, or tobacco-related health factors, that were collected on or before the date of the Encounter. The data comes from the [place] facility where the Encounter took place. Date/Time Smoking Status/Tobacco Use Comment F acility Sep 11, 2022 02:15 PM VA-TOBACCO NEVER USED [facility] Feb 16, 2019 02:36 PM VA-TOBACCO NEVER USED [facility] Encounter Notes: All associated encounter notes This section contains the clinical notes associated to the Encounter. Date/Time Encounter Note(s) Provider Source Aug 10, 2024 12:00 PM NONVA CONSULT: LOCAL TITLE: COMMUNITY CARE CONSULT RESULT HYPERBARIC THERAPY PC STANDARD TITLE: NONVA CONSULT DATE OF NOTE: AUG 10, 2024@12:00 ENTRY DATE: AUG 18, 2024@07:26:07 AUTHOR: JAD HUTCHISON EXP COSIGNER: URGENCY: STATUS: COMPLETED VistA Imaging - Scanned Document [facility] [place]bar[place] Treatment visit dated 08.10.24 SCANNED DOCUMENT SIGNATURE NOT REQUIRED Electronically Filed: 08/18/2024 by: JAD HUTCHISON RN FILL PLANT OPERATOR SUPERVISOR LIVESTOCK YARD JAD HUTCHISON [facility]
--- OUTSIDE RECORDS SUMMARY | 2024-08-21 10:17 | XMS_ITS | Encounter Summary ---
Author Name [facility] [place] Organization [facility] [place] [place] Address [address] [place] [address] Care Team Providers Care Inventory Taker Name Role Phone YUKO BUENROSTRO Primary Care [...] PART A Oct 21, 2020 PART A [phone] Tabitha DAVIS PATIENT Selected Encounter This section includes the information on record at [place] for the Encounter. Date/Time Encounter Type Encounter Description Reason Pro vider Source Aug 05, 2024 12:00 PM Outpatient Encounter PRIMARY CARE/MEDICINE IHE Encounter Template Text not used by [place] Social History: Smoking Status (Most current) and Tobacco Use (All prior to encounter date) This section includes the most current, and the historical, smoking and tobacco- related health factors from the [place] facility where the Encounter took place. Current Smoking Status This section includes the most current smoking, or tobacco-related health factor, from the [place] facility where the Encounter took place. Date/Time Current Smoking Status Comment Rnadall polanco Sep 30, 2023 11:58 PM VA-TOBACCO NEVER USED [facility] Tobacco Use History This section includes a history of the smoking, or tobacco-related health factors, that were collected on or before the date of the Encounter. The data comes from the [place] facility where the Encounter took place. Date/Time Smoking Status/Tobacco Use Comment F acility Sep 11, 2022 02:15 PM VA-TOBACCO NEVER USED [facility] Feb 16, 2019 02:36 PM VA-TOBACCO NEVER USED [facility] Encounter Notes: All associated encounter notes This section contains the clinical notes associated to the Encounter. Date/Time Encounter Note(s) Provider Source Aug 05, 2024 12:00 PM NONVA CONSULT: LOCAL TITLE: COMMUNITY CARE CONSULT RESULT HYPERBARIC THERAPY STANDARD TITLE: NONVA CONSULT DATE OF NOTE: AUG 05, 2024@12:00 ENTRY DATE: AUG 14, 2024@07:48:31 AUTHOR: TRACEE PALMA EXP COSIGNER: URGENCY: STATUS: COMPLETED VistA Imaging - Scanned Document SCANNED DOCUMENT SIGNATURE NOT REQUIRED Electronically Filed: 08/14/2024 by: TRACEE PALMA LPN Staff Nurse TRACEE PALMA [facility]
--- OUTSIDE RECORDS SUMMARY | 2024-08-21 10:17 | XMS_ITS | Encounter Summary ---
Author Name [facility] [place] Organization [facility] [place] [place] Address [address] [place] [address] Care Team Providers Care Advisor To Command In Combat Name Role Phone PORTER YUKO Primary Care [...] PART A Oct 21, 2020 PART A [id number] [phone] Tabitha DAVIS PATIENT Selected Encounter This section includes the information on record at [place] for the Encounter. Date/Time Encounter Type Encounter Description Reason Pro vider Source Aug 18, 2024 07:23 AM Outpatient Encounter EVENT (HISTORICAL) IHE Encounter Template Text not used by [place] [...] of theEncounter. The data comes from all [place] treatment facilities. Test Date/Time Test Type Test Details Facility Name Sep 30, 2024 12:00 AM Laboratory - Chemi stry Order BASIC METABOLIC PANEL+MG PLASMA SP [facility] Sep 30, 2024 12:00 AM Laboratory - Chemi stry Order HEMOGLOBIN A1C BLOOD [facility] Sep 30, 2024 12:00 AM Laboratory - Chemi stry Order MICROALBUMIN/CREATININ E RATIO URINE URINE SP ONCE [facility] Sep 30, 2024 12:00 AM Laboratory - Chemi stry Order LIPID PANEL,NON-FASTING PLASMA SP [facility] Sep 30, 2024 12:00 AM Laboratory - Chemi stry Order CBC BLOOD [facility] Social History: Smoking Status (Most current) [...] 2023 11:58 PM VA-TOBACCO NEVER USED [facility] Tobacco Use History This section includes a history of the smoking, or tobacco-related health factors, that were collected on or before the date of the Encounter. The data comes from the [place] facility where the Encounter took place. Date/Time Smoking Status/Tobacco Use Comment Sundar acbehzad Sep 11, 2022 02:15 PM VA-TOBACCO NEVER USED [facility] Feb 16, 2019 02:36 PM VA-TOBACCO NEVER USED [facility]
--- OUTSIDE RECORDS SUMMARY | 2024-08-21 10:17 | XMS_ITS | Encounter Summary ---
Author Name [facility] [place] [place] Organization [facility] [place] [place] Address [address] [place] [address] Care Team Providers Care Restorative Care Technician Name Role Phone YUKO BUENROSTRO Primary [...] PART A Oct 21, 2020 PART A [phone] Tbaitha DAVIS PATIENT Selected Encounter This section includes the information on record at [place] for the Encounter. Date/Time Encounter Type Encounter Description Reason Pro vider Source Aug 11, 2024 12:00 PM Outpatient Encounter PRIMARY CARE/MEDICINE [...] 2023 11:58 PM VA-TOBACCO NEVER USED [facility] Tobacco Use History This section includes a history of the smoking, or tobacco-related health factors, that were collected on or before the date of the Encounter. The data comes from the [place] facility where the Encounter took place. Date/Time Smoking Status/Tobacco Use Comment Sundar barriga Sep 11, 2022 02:15 PM VA-TOBACCO NEVER USED [facility] Feb 16, 2019 02:36 PM VA-TOBACCO NEVER USED [facility] Encounter Notes: All associated encounter notes This section contains the clinical notes associated to the Encounter. Date/Time Encounter Note(s) Provider Source Aug 11, 2024 12:00 PM NONVA CONSULT: LOCAL TITLE: COMMUNITY CARE CONSULT RESULT WOUND CARE PC STANDARD TITLE: NONVA CONSULT DATE OF NOTE: AUG 11, 2024@12:00 ENTRY DATE: AUG 14, 2024@22:54:40 AUTHOR: SOLANGE BARLOW EXP COSIGNER: URGENCY: STATUS: COMPLETED VistA Imaging - Scanned Document SCANNED DOCUMENT SIGNATURE NOT REQUIRED Electronically Filed: 08/14/2024 by: SOLANGE BARLOW MSN, RN- COMMUNITY TARP REPAIRER SOLANGE BARLOW [facility] Aug 11, 2024 12:00 PM NONVA CONSULT: LOCAL TITLE: COMMUNITY CARE CONSULT RESULT WOUND CARE PC STANDARD TITLE: NONVA CONSULT DATE OF NOTE: AUG 11, 2024@12:00 ENTRY DATE: AUG 19, 2024@13:10:35 AUTHOR: YONI RAINEY EXP COSIGNER: URGENCY: STATUS: COMPLETED VistA Imaging - Scanned Document SCANNED DOCUMENT SIGNATURE NOT REQUIRED Electronically Filed: 08/19/2024 by: YONI RAINEY LPN LICENSE PRACTICAL NURSE YONI RAINEY [facility]
--- OUTSIDE RECORDS SUMMARY | 2024-08-21 10:17 | XMS_ITS | Encounter Summary ---
Author Name [facility] [place] [facility] [place] [facility] [place] Address [address] [place] [address] Care Team Providers Care Oceanologist Name Role Phone PORTER YUKO Primary Care [...] PART A Oct 21, 2020 PART A [phone] Tabitha DAVIS PATIENT Selected Encounter This section includes the information on record at [place] for the Encounter. Date/Time Encounter Type Encounter Description Reason Pro vider Source Aug 17, 2024 07:53 AM Outpatient Encounter EVENT (HISTORICAL) IHE Encounter Template Text not used by [place] Plan of Treatment: Future Appointments (+ 6 months) and Future Tests (+/- 45 days) The Plan of Treatment section includes future care activities for the patient from all [place] treatmentfacilities. This section includes future appointments and [...] stry Order BASIC METABOLIC PANEL+MG PLASMA SP [facility] Sep 30, 2024 12:00 AM Laboratory - Chemi stry Order LIPID PANEL,NON-FASTING PLASMA [facility] Sep 30, 2024 12:00 AM Laboratory - Chemi stry Order HEMOGLOBIN A1C BLOOD [facility] Sep 30, 2024 12:00 AM Laboratory - Chemi stry Order CBC BLOOD [facility] Sep 30, 2024 12:00 AM Laboratory - Chemi stry Order MICROALBUMIN/CREATININ E RATIO URINE URINE SP ONCE [facility] Social History: Smoking Status (Most current) and [...]
--- OUTSIDE RECORDS SUMMARY | 2024-08-21 10:17 | XMS_ITS | Encounter Summary ---
Author Name [facility] [place] [facility] [place] [facility] [place] Address [address] [place] [address] Care Team Providers Care Batting Machine Operator Name Role Phone YUKO BUENROSTRO [...] PART A Oct 21, 2020 PART A [phone] Tabitha DAIVS PATIENT Selected Encounter This section includes the information on record at [place] for the Encounter. Date/Time Encounter Type Encounter Description Reason Pro vider Source Aug 13, 2024 04:40 PM Outpatient Encounter PRIMARY CARE/MEDICINE IHE Encounter Template Text not used by [place] Social History: Smoking Status (Most current) and [...] 11:58 PM VA-TOBACCO NEVER USED [facility] Tobacco Use History This section includes a history of the smoking, or tobacco-related health factors, that were collected on or before the date of the Encounter. The data comes from the [place] facility where the Encounter took place. Date/Time Smoking Status/Tobacco Use Comment F acility Sep 11, 2022 02:15 PM VA-TOBACCO NEVER USED [facility] Feb 16, 2019 02:36 PM VA-TOBACCO NEVER USED [facility] Encounter Notes: All associated encounter notes This section contains the clinical notes associated to the Encounter. Date/Time Encounter Note(s) Provider Source Aug 13, 2024 04:40 PM HOME HEALTH REFERR AL NOTE: LOCAL TITLE: [facility] STANDARD TITLE: HOME HEALTH REFERRAL NOTE DATE OF NOTE: AUG 13, 2024@16:40 ENTRY DATE: AUG 13, 2024@16:40:17 AUTHOR: LAYNE HUANG EXP COSIGNER: URGENCY: STATUS: COMPLETED HOME HEALTH CARE CERTIFICATION AND PLAN OF CARE SIGNED BY: Dr. Buenrostro for [facility] Certification period From: 07/17/2024 To: 09/14/2024 /viridiana/ LAYNE HUANG LINE UP WORKER Signed: 08/13/2024 16:40 LAYNE HUANG [facility]
--- OUTSIDE RECORDS SUMMARY | 2024-08-21 10:17 | XMS_ITS | Encounter Summary ---
Author Name [facility] [place] [place] Address [address] [place] [address] Care Team Providers Care Air And Missile Defense Crewmember Name Role Phone YUKO BUENROSTRO Primary Care [...] PART A Oct 21, 2020 PART A [phone] Tabitha DAVIS PATIENT Selected Encounter This section includes the information on record at [place] for the Encounter. Date/Time Encounter Type Encounter Description Reason Pro vider Source Aug 04, 2024 12:00 PM Outpatient Encounter PRIMARY CARE/MEDICINE [...] 30, 2023 11:58 PM VA-TOBACCO NEVER USED [facility] Tobacco Use History This section includes a history of the smoking, or tobacco-related health factors, that were collected on or before the date of the Encounter. The data comes from the [place] facility where the Encounter took place. Date/Time Smoking Status/Tobacco Use Comment F acility Sep 11, 2022 02:15 PM VA-TOBACCO NEVER USED [facility] Feb 16, 2019 02:36 PM VA-TOBACCO NEVER USED [facility] Encounter Notes: All associated encounter notes This section contains the clinical notes associated to the Encounter. Date/Time Encounter Note(s) Provider Source Aug 04, 2024 12:00 PM NONVA CONSULT: LOCAL TITLE: COMMUNITY CARE CONSULT RESULT HYPERBARIC THERAPY STANDARD TITLE: NONVA CONSULT DATE OF NOTE: AUG 04, 2024@12:00 ENTRY DATE: AUG 11, 2024@18:13:36 AUTHOR: BELLA HERNANDES EXP COSIGNER: URGENCY: STATUS: COMPLETED VistA Imaging - Scanned Document SCANNED DOCUMENT SIGNATURE NOT REQUIRED Electronically Filed: 08/11/2024 by: BELLA HERNANDES LPN LICENSED PRACTICAL NURSE BELLA HERNANDES [facility]
--- OUTSIDE RECORDS SUMMARY | 2024-08-21 10:18 | XMS_ITS | Encounter Summary ---
Author Name [facility] [place] Address [address] [place] [address] Care Team Providers Care Clinical Informatics Specialist Name Role Phone YUKO BUENROSTRO Primary [...] PART A Oct 21, 2020 PART A [id number] Tabitha DAVIS PATIENT Selected Encounter This section includes the information on record at [place] for the Encounter. Date/Time Encounter Type Encounter Description Reason Pro vider Source Aug 12, 2024 12:00 PM Outpatient Encounter PRIMARY CARE/MEDICINE IHE Encounter Template Text not used by [place] Social History: Smoking Status (Most current) and Tobacco Use (All prior to encounter date) This section includes the most current, and the historical, smoking and tobacco- related health factors from the [place] facility where the Encounter took place. Current Smoking Status This section includes the most current smoking, or tobacco-related health factor, from the [place] facility where the Encounter took place. Date/Time Current Smoking Status Comment Randall polanco Sep 30, 2023 11:58 PM VA-TOBACCO NEVER USED [facility] Tobacco Use History This section includes a history of the smoking, or tobacco-related health factors, that were collected on or before the date of the Encounter. The data comes from the [place] facility where the Encounter took place. Date/Time Smoking Status/Tobacco Use Comment Sundar barriga Sep 11, 2022 02:15 PM VA-TOBACCO NEVER USED [facility] Feb 16, 2019 02:36 PM VA-TOBACCO NEVER USED [facility] Encounter Notes: All associated encounter notes This section contains the clinical notes associated to the Encounter. Date/Time Encounter Note(s) Provider Source Aug 12, 2024 12:00 PM NONVA CONSULT: LOCAL TITLE: COMMUNITY CARE CONSULT RESULT WOUND CARE PC STANDARD TITLE: NONVA CONSULT DATE OF NOTE: AUG 12, 2024@12:00 ENTRY DATE: AUG 19, 2024@13:10:14 AUTHOR: YONI RAINEY EXP COSIGNER: URGENCY: STATUS: COMPLETED VistA Imaging - Scanned Document SCANNED DOCUMENT SIGNATURE NOT REQUIRED Electronically Filed: 08/19/2024 by: YONI RAINEY LPN LICENSE PRACTICAL NURSE YONI RAINEY [facility] Aug 12, 2024 12:00 PM NONVA CONSULT: LOCAL TITLE: COMMUNITY CARE CONSULT RESULT HYPERBARIC THERAPY PC STANDARD TITLE: NONVA CONSULT DATE OF NOTE: AUG 12, 2024@12:00 ENTRY DATE: AUG 20, 2024@07:35:14 AUTHOR: DERRICK BABCOCK LPN EXP COSIGNER: URGENCY: STATUS: COMPLETED VistA Imaging - Scanned Document SCANNED DOCUMENT SIGNATURE NOT REQUIRED Electronically Filed: 08/20/2024 by: DERRICK BABCOCK LPN STAFF NURSE DERRICK BABCOCK LPN [facility]
--- OUTSIDE RECORDS SUMMARY | 2024-08-21 10:18 | XMS_ITS | Encounter Summary ---
Author Name [facility] [place] Organization [place] Address [address] [place] [address] Care Team Providers Care Wood Mechanist Name Role Phone YUKO BUENROSTRO Primary Care [...] PART A Oct 21, 2020 PART A [id number] [phone] Tabitha DAVIS PATIENT Selected Encounter This section includes the information on record at [place] for the Encounter. Date/Time Encounter Type Encounter Description Reason Pro vider Source Aug 13, 2024 12:00 PM Outpatient Encounter PRIMARY CARE/MEDICINE IHE Encounter Template Text not used by [place] Social History: Smoking Status (Most current) and Tobacco Use (All prior to encounter date) This section includes the most current, and the historical, smoking and tobacco- related health factors from the [place] facility where the Encounter took place. Current Smoking Status This section includes the most current smoking, or tobacco-related health factor, from the [place] facility where the Encounter took place. Date/Time Current Smoking Status Comment Randall polanco Sep 30, 2023 11:58 PM VA-TOBACCO NEVER USED [facility] Tobacco Use History This section includes a history of the smoking, or tobacco-related health factors, that were collected on or before the date of the Encounter. The data comes from the [place] facility where the Encounter took place. Date/Time Smoking Status/Tobacco Use Comment F acility Sep 11, 2022 02:15 PM VA-TOBACCO NEVER USED [facility] Feb 16, 2019 02:36 PM VA-TOBACCO NEVER USED [facility] Encounter Notes: All associated encounter notes This section contains the clinical notes associated to the Encounter. Date/Time Encounter Note(s) Provider Source Aug 13, 2024 12:00 PM NONVA CONSULT: LOCAL TITLE: COMMUNITY CARE CONSULT RESULT HYPERBARIC THERAPY STANDARD TITLE: NONVA CONSULT DATE OF NOTE: AUG 13, 2024@12:00 ENTRY DATE: AUG 20, 2024@18:27:37 AUTHOR: BELLA HERNANDES EXP COSIGNER: URGENCY: STATUS: COMPLETED VistA Imaging - Scanned Document SCANNED DOCUMENT SIGNATURE NOT REQUIRED Electronically Filed: 08/20/2024 by: BELLA HERNANDES LPN LICENSED PRACTICAL NURSE BELLA HERNANDES [facility]
--- OUTSIDE RECORDS SUMMARY | 2024-08-21 10:19 | XMS_ITS | Clinical Summary ---
Author Organization [facility] er Address [address] [place] [address] Care Team Providers Care Sugar Cane Planter Name Role Phone Thu Bhagat PA-C Primary Care Provider [phone] Allergies Active Allergy Reactions Criticality Noted Date Comments Niacin Other (see comments) Low 09/19/2012 makes me feel like I'm burning Medications Medication Sig Dispensed Refills Start Date End Date Status apixaban (ELIQUIS) 5 MG tablet Take 1 tablet (5 mg total) by mouth 2 times daily Active aspirin EC 81 MG EC tablet Take 1 tablet (81 mg total) by mouth daily Active glipiZIDE (GLUCOTROL XL) 10 MG 24 hr tablet Take 2 tablets (20 mg total) by mouth 1 (one) time each day Do not crush, chew, or split. Active metFORMIN (GLUCOPHAGE) 1000 MG tablet Take 1 tablet (1,000 mg total) by mouth 2 (two) times a day with meals Active lisinopril (ZESTRIL) 10 MG tablet Take 2 tablets (20 mg total) by mouth 1 (one) time each day Active UNABLE TO FIND Med Name: Neurvive supplement Active carvedilol (COREG) 12.5 MG tablet Take 1 tablet (12.5 mg total) by mouth 2 (two) times a day 10/01/2023 Active Empagliflozin 25 MG tablet Take 25 mg by mouth 1 (one) time each day 10/28/2023 Active pioglitazone (ACTOS) 45 MG tablet Take 1 tablet (45 mg total) by mouth 1 (one) time each day 10/28/2023 Active atorvastatin (LIPITOR) 80 MG tablet Take 0.5 tablets (40 mg total) by mouth 1 (one) time each day 04/27/2024 Active Vitamin D, Cholecalciferol, 25 MCG (1000 UT) tablet Take 1,000 Units by mouth 1 (one) time each day Active cyanocobalamin (VITAMIN B-12) 1000 MCG tablet Take 1 tablet (1,000 mcg total) by mouth 1 (one) time each day Active Magnesium Oxide 420 MG tablet Take 1 tablet by mouth 2 (two) times a day Active carvedilol (COREG) 25 MG tabletIndications:L ongstanding persistent atrial fibrillation (HCC) Take 1 tablet (25 mg total) by mouth 2 (two) times a day with meals for 14 doses 14 tablet 06/17/2024 Active ERTAPENEM SODIUM IV Infuse into a venous catheter 1 GM IV Every Day 06/24/2024 Active carbamide peroxide (DEBROX) 6.5 % otic solution Administer into affected ear(s) 07/15/2024 Active cefadroxil (DURICEF) 500 MG capsuleIndications: Infection of right foot Take 2 capsules (1,000 mg total) by mouth 2 (two) times a day for 14 days 56 capsule 07/21/2024 08/04/2024 cefadroxil (DURICEF) 500 MG capsuleIndications: Infection of right foot Take 1 capsule (500 mg total) by mouth 2 (two) times a day for 10 days 20 capsule 08/03/2024 08/13/2024 Active Problems Problem Noted Date Diagnosed Date Diabetic ulcer of right midf oot associated with type 2 diabetes mellitus, 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 06/25/2024 Infection of right foot 06/06/2024 Type 2 diabetes mellitus with hyperglycemia 05/21 Cerebral infarction, unspecified 06/01/2024 Hypomagnesemia 06/01/2024 Vitamin D3 deficiency 06/01/2024 Migraine headache with aura 04/28/2019 Headache 04/27/2019 General medical exam 03/29/2019 Overview: Colon cancer screening: cologuard 03/13/2019 negative; next due in 3 years (2021) PSA: 2013 1.8; could consider repeat test every 3-5 years or sooner if symptoms Herpes simplex 03/13/2019 Stroke 05/23/2018 Unspecified systolic (congestive) heart failure 05/23/2018 Confusion 05/20/2018 Compression fracture of vertebra 02/04/2017 Obstructive sleep apnea syndrome in adult 2015 Atrial fibrillation 02/03/2016 Glaucoma 10/22/2014 Type 2 diabetes mellitus wit h diabetic neuropathy, unspecified 09/22/2012 Major depressive disorder 09/18/2012 Dizziness 08/05/2012 Essential hypertension 03/08/2011 High aspartate aminotransferase level 05/16/2005 Presbyopia 03/15/2005 Type 2 diabetes mellitus 03/08/2005 Mixed hyperlipidemia 01/23/2005 Inguinal hernia 12/21/2004 Encounters Date Type Department Care Team Description 08/20/2024 8:30 AM CDT Office Visit [facility] Wound Care [address] [place] [address] [phone] Vilma Neves MD Diabetic ulcer of right midfoot associated with type 2 diabetes mellitus, 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) (Primary Dx) 08/19/2024 8:30 AM CDT Office Visit [facility] Wound Care [address] [place] [address] 56327 Vilma Neves MD Diabetic ulcer of right midfoot associated with type 2 diabetes mellitus, 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) (Primary Dx) 08/18/2024 11:30 AM CDT Office Visit [facility] Infectious Disease [address] [place] [address] 95466 Amairani Sigala MD Infection of right foot (Primary Dx); Type 2 diabetes mellitus with hyperglycemia, without long-term current use of insulin (HCC) 08/18/2024 10:45 AM CDT Office Visit [facility] Wound Care [address] [place] [address] 31640 Vilma Neves MD Diabetic ulcer of right midfoot associated with type 2 diabetes mellitus, 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) [E11.621, L97.415] (Primary Dx) 08/18/2024 8:30 AM CDT Office Visit [facility] Wound Care [address] [place] [address] 69723 Vilma Neves MD Diabetic ulcer of right midfoot associated with type 2 diabetes mellitus, 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) (Primary Dx) 08/18/2024 Telephone [facility] Infectious Disease [address] [place] [address] 60938 Amairani Sigala MD [facility] appts 08/17/2024 8:30 AM CDT Office Visit [facility] Wound Care [address] [place] [address] 67816 Vilma Neves MD Diabetic ulcer of right midfoot associated with type 2 diabetes mellitus, 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) (Primary Dx) 08/14/2024 8:30 AM CDT Office Visit [facility] Wound Care [address] [place] [address] 61806 Vilma Neves MD Diabetic ulcer of right midfoot associated with type 2 diabetes mellitus, 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) (Primary Dx) 08/13/2024 8:30 AM CDT Office Visit [facility] Wound Care [address] [place] [address] 29829 Vilma Neves MD Diabetic ulcer of right midfoot associated with type 2 diabetes mellitus, 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) (Primary Dx) 08/12/2024 8:30 AM CDT Office Visit [facility] Wound Care [address] [place] [address] 48884 Vilma Neves MD Diabetic ulcer of right midfoot associated with type 2 diabetes mellitus, 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) [E11.621, L97.415] (Primary Dx) 08/11/2024 10:45 AM CDT Office Visit [facility] Wound Care [address] [place] [address] 95434 Vilma Neves MD Diabetic ulcer of right midfoot associated with type 2 diabetes mellitus, 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) [E11.621, L97.415] (Primary Dx) 08/11/2024 8:30 AM CDT Office Visit [facility] Wound Care [address] [place] [address] 38701 Vilma Neves MD Diabetic ulcer of right midfoot associated with type 2 diabetes mellitus, 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) (Primary Dx) 08/10/2024 8:30 AM CDT Office Visit [facility] Wound Care [address] [place] [address] 63972 Vilma Neves MD Diabetic ulcer of right midfoot associated with type 2 diabetes mellitus, 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) (Primary Dx) 08/07/2024 8:30 AM CDT Office Visit [facility] Wound Care [address] [place] [address] 67031 Vilma Neves MD Diabetic ulcer of right midfoot associated with type 2 diabetes mellitus, 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) (Primary Dx) 08/06/2024 11:30 AM CDT Office Visit [facility] Wound Care [address] [place] [address] 49686 Vilma Neves MD Diabetic ulcer of right midfoot associated with type 2 diabetes mellitus, 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) [E11.621, L97.415] (Primary Dx) 08/06/2024 8:30 AM CDT Office Visit [facility] Wound Care [address] [place] [address] 80773 Vilma Neves MD Diabetic ulcer of right midfoot associated with type 2 diabetes mellitus, 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) (Primary Dx) 08/05/2024 8:30 AM CDT Office Visit [facility] Wound Care [address] [place] [address] 46633 Diabetic ulcer of right midfoot associated with type 2 diabetes mellitus, 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) (Primary Dx) 08/04/2024 8:30 AM CDT Office Visit [facility] Wound Care [address] [place] [address] 79559 Vilma Neves MD Diabetic ulcer of right midfoot associated with type 2 diabetes mellitus, 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) (Primary Dx) 08/03/2024 12:15 PM CDT Lab [facility] [address] [place] [address], [place] [address] Infection of right foot 08/03/2024 11:00 AM CDT Office Visit [facility] Infectious Disease [address] [place] [address] 43796 Amairani Sigala MD Infection of right foot (Primary Dx) 08/03/2024 8:30 AM CDT Office Visit [facility] Wound Care [address] [place] [address] 86996 Vilma Neves MD Diabetic ulcer of right midfoot associated with type 2 diabetes mellitus, 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) (Primary Dx) 07/31/2024 8:30 AM CDT Office Visit [facility] W[facility] Care [address] [place] [address] 95784 Vilma Neves MD Diabetic ulcer of right midfoot associated with type 2 diabetes mellitus, 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) (Primary Dx) 07/30/2024 3:00 PM CDT Office Visit Podiatry [address] [place] [address] Angel Coombs, KERVIN Diabetic polyneuropathy associated with type 2 diabetes mellitus (HCC) (Primary Dx); Ulcer of left foot 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) 07/30/2024 8:30 AM CDT Office Visit [facility] Wound Care [address] [place] [address] 62341 Vilma Neves MD Diabetic ulcer of right midfoot associated with type 2 diabetes mellitus, 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) (Primary Dx) 07/29/2024 8:30 AM CDT Office Visit [facility] W[facility] Care [address] [place] [address] 63957 Vilma Neves MD Diabetic ulcer of right midfoot associated with type 2 diabetes mellitus, 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) (Primary Dx) 07/28/2024 11:30 AM CDT Office Visit [facility] Wound Care [address] [place] [address] 34829 Vilma Neves MD Diabetic ulcer of right midfoot associated with type 2 diabetes mellitus, 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) [E11.621, L97.415] (Primary Dx) 07/28/2024 8:30 AM CDT Office Visit [facility] W[facility] Care [address] [place] [address] 11312 Vilma Neves MD Diabetic ulcer of right midfoot associated with type 2 diabetes mellitus, 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) (Primary Dx) 07/28/2024 Telephone [facility] W[facility] Care [address] [place] [address] 81765 Vilma Neves MD [facility] would like a nurse call back 07/27/2024 8:30 AM CDT Office Visit [facility] Wound Care [address] [place] [address] 21088 Vilma Neves MD Diabetic ulcer of right midfoot associated with type 2 diabetes mellitus, 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) (Primary Dx) 07/24/2024 8:30 AM CDT Office Visit [facility] [address] [place] [address] 21616 Vilma Neves MD Diabetic ulcer of right midfoot associated with type 2 diabetes mellitus, 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) (Primary Dx) 07/23/2024 10:15 AM CDT Office Visit [facility] W[facility] [address] [place] [address] 65409 Vilma Neves MD Diabetic ulcer of right midfoot associated with type 2 diabetes mellitus, 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) (Primary Dx) 07/23/2024 9:00 AM CDT Office Visit [facility]ro[facility] [address] [place] [address] 91363 Gerardo Oconnell MD Bilateral impacted cerumen (Primary Dx); Dysfunction of both eustachian tubes 07/22/2024 8:30 AM CDT Office Visit [facility] W[facility] [address] [place] [address] 58144 Vilma Neves MD Diabetic ulcer of right midfoot associated with type 2 diabetes mellitus, 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) (Primary Dx) 07/21/2024 2:00 PM CDT Infusion [facility] Infusion Therapy [address] [place] [address] 42506 Diabetic ulcer of right midfoot associated with type 2 diabetes mellitus, 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) (Primary Dx) 07/21/2024 12:45 PM CDT Office Visit [facility] Wound Care [address] [place] [address] 20109 Vilma Neves MD Diabetic ulcer of right midfoot associated with type 2 diabetes mellitus, 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) [E11.621, L97.415] (Primary Dx) 07/21/2024 10:45 AM CDT Office Visit [facility] Infectious Disease [address] [place] [address] 39167 Amairani Sigala MD Infection of right foot (Primary Dx) 07/21/2024 8:30 AM CDT Office Visit [facility] Wound Care [address] [place] [address] 61705 Diabetic ulcer of right midfoot associated with type 2 diabetes mellitus, 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) [E11.621, L97.415] (Primary Dx) 07/21/2024 Clinical Support [facility] [address] [place] [address] 58176 Mariam Combs, PharmD 07/20/2024 8:30 AM CDT Office Visit [facility] Wound Care [address] [place] [address] 05068 Vilma Neves MD Diabetic ulcer of right midfoot associated with type 2 diabetes mellitus, 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) (Primary Dx) 07/20/2024 6:44 AM CDT - 07/20/2024 11:59 PM CDT Hospital Encounter [facility] [address] [place] [address] 61718 Discharge Disposition: Home or Self Care 07/20/2024 Telephone [facility] [address], [place] [address] None, Pcp 07/17/2024 10:45 AM CDT Clinical Support [facility] Wound Care [address] [place] [address] 22034 Change of dressing (Primary Dx) 07/17/2024 8:30 AM CDT Office Visit [facility] Wound Care [address] [place] [address] 14998 Vilma Neves MD Diabetic ulcer of right midfoot associated with type 2 diabetes mellitus, 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) [E11.621, L97.415] (Primary Dx); Bilateral impacted cerumen 07/16/2024 1:45 PM CDT Office Visit Podiatry [address] [place] [address] 69069 Angel Coombs DPM Surgery follow-up (Primary Dx); Diabetic polyneuropathy associated with type 2 diabetes mellitus (HCC); Ulcer of left foot 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) 07/16/2024 8:30 AM CDT Office Visit [facility] Wound Care [address] [place] [address] 56340 Vilma Neves MD Diabetic ulcer of right midfoot associated with type 2 diabetes mellitus, 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) [E11.621, L97.415] (Primary Dx) 07/16/2024 Orders Only [facility] [address] [place] [address] 55051 Vilma Neves MD 07/14/2024 3:15 PM CDT Office Visit [facility] Wound Care [address] [place] [address] 81119 Vilma Neves MD Diabetic ulcer of right midfoot associated with type 2 diabetes mellitus, 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) (Primary Dx) 07/14/2024 2:00 PM CDT Infusion [facility] Infusion Therapy [address] [place] [address] 81785 Infection of right foot (Primary Dx) 07/14/2024 8:30 AM CDT Office Visit [facility] Wound Care [address] [place] [address] 95102 Vilma Neves MD Diabetic ulcer of right midfoot associated with type 2 diabetes mellitus, 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) (Primary Dx) 07/14/2024 Clinical Support [facility] [address] [place] [address] 59390 Jasiel Rust, PharmD 07/13/2024 8:30 AM CDT Office Visit [facility] Wound Care [address] [place] [address] 02829 Vilma Neves MD Diabetic ulcer of right midfoot associated with type 2 diabetes mellitus, 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) (Primary Dx) 07/10/2024 12:00 PM CDT Lab [facility] [address] [place] [address] 16146 Diabetic ulcer of right midfoot associated with type 2 diabetes mellitus, 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) 07/10/2024 11:30 AM CDT Procedure visit [facility] [address] [place] [address] 70263 Diabetic ulcer of right midfoot associated with type 2 diabetes mellitus, 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) 07/10/2024 10:15 AM CDT Clinical Support [facility] Wound Care [address] [place] [address] 54694 Change of dressing [Z48.00] (Primary Dx) 07/10/2024 9:00 AM CDT Office Visit [facility] Wound Care [address] [place] [address] 80946 Vilma Neves MD Diabetic ulcer of right midfoot associated with type 2 diabetes mellitus, 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) (Primary Dx) 07/07/2024 3:15 PM CDT Office Visit [facility] Wound Care [address] [place] [address] 96522 Vilma Neves MD Diabetic ulcer of right midfoot associated with type 2 diabetes mellitus, 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) [E11.621, L97.415] (Primary Dx) 07/07/2024 2:45 PM CDT Office Visit [facility] Infectious Disease [address] [place] [address] 25598 Amairani Sigala MD Infection of right foot (Primary Dx) 07/07/2024 2:00 PM CDT Infusion [facility] Infusion Therapy [address] [place] [address] 93320 Infection of right foot (Primary Dx) 07/07/2024 Clinical Support [facility] [address] [place] [address] 62292 Marge Wan PharmD 07/07/2024 Telephone [facility] Care [address] [place] [address] 94866 Vilma Neves MD [employer] benefit verification 07/06/2024 [facility] Wound Care [address] [place] [address] 50848 Vilma Neves MD Pt would like a nurse to call him back 07/06/2024 [facility] Wound Care [address] [place] [address] 61817 Vilma Neves MD [place] called about scheduling HBO appts for pt 07/03/2024 3:00 PM CDT Clinical Support [facility] Wound Care [address] [place] [address] 28013 Dressing change [Z48.00] (Primary Dx) 07/02/2024 [facility] Wound Care [address] [place] [address] 68513 Vilma Neves MD Benefit Outcome Summary 07/02/2024 Telephone [facility]ound Care [address] [place] [address] 79263 Vilma Neves MD Coverage for EPIFIX 07/02/2024 Telephone [facility] W[facility] Care [address] [place] [address] 55860 Vilma Neves MD Benefit Verification 06/30/2024 3:15 PM CDT Office Visit [facility] Wound Care [address] [place] [address] 47094 Vilma Neves MD Diabetic ulcer of right midfoot associated with type 2 diabetes mellitus, 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) (Primary Dx) 06/30/2024 2:00 PM CDT Infusion [facility] Infusion Therapy [address] [place] [address] 06804 Infection of right foot (Primary Dx); Non-healing surgical wound, subsequent encounter 06/30/2024 Clinical Support [facility] [address] [place] [address] 75918 Jasiel Rust, PharmD 06/30/2024 Telephone [facility] Wound Care [address] [place] [address] 17532 Vilma Neves MD [facility] request for HBOT received 06/25/2024 2:00 PM CDT Infusion [facility] Infusion Therapy [address] [place] [address] 67553 Infection of right foot (Primary Dx) 06/25/2024 9:00 AM CDT Office Visit [facility] Wound Care [address] [place] [address] 86699 Amairani Sigala MD Infection of right foot (Primary Dx) 06/25/2024 8:00 AM CDT Office Visit [facility] Wound Care [address] [place] [address] 16039 Vilma Neves MD Diabetic ulcer of right midfoot associated with type 2 diabetes mellitus, 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) (Primary Dx) 06/25/2024 Orders Only [facility] Wound Care [address] [place] [address] 41594 Rocco Couch PA-C 06/24/2024 2:00 PM CDT Infusion [facility] Infusion Therapy [address] [place] [address] 47200 Infection of right foot (Primary Dx) 06/23/2024 1:00 PM CDT Infusion [facility] Infusion Therapy [address] [place] [address] 85803 Infection of right foot (Primary Dx) 06/23/2024 Clinical Support [facility] [address] [place] [address] 74067 Julieta Lilly, PharmD 06/22/2024 2:00 PM CDT Infusion [facility] Infusion Therapy [address] [place] [address] 18845 Infection of right foot (Primary Dx) 06/21/2024 2:00 PM CDT Infusion [facility] Infusion Therapy [address] [place] [address] 76139 Infection of right foot (Primary Dx) 06/20/2024 2:00 PM CDT Infusion [facility] Infusion Therapy [address] [place] [address] 18995 Infection of right foot (Primary Dx) 06/19/2024 2:00 PM CDT Infusion [facility] Infusion Therapy [address] [place] [address] 99296 Infection of right foot (Primary Dx) 06/19/2024 Telephone [facility] Chief Dispatcher [address] [place] [address] 14529 Karley Bonner LSW 06/19/2024 Telephone Podiatry [address] [place] [address] 91955 Angel Coombs, DPM 06/18/2024 2:00 PM CDT Infusion [facility] Infusion Therapy [address] [place] [address] 66470 Infection of right foot (Primary Dx) 06/18/2024 1:00 PM CDT Office Visit [facility] Wound Care [address] [place] [address] 34549 Rocco Couhc PA-C Non-healing surgical wound, subsequent encounter (Primary Dx); 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) 06/18/2024 Telephone [facility] Care Coordination [address] [place] [address] 53234 Thu Bhagat PA-C TCM Follow-up 06/12/2024 4:42 PM CDT Anesthesia Event [facility] Operating Room [address] [place] [address] 51122 Anthony Torres MD 06/12/2024 3:05 PM CDT - 06/12/2024 4:35 PM CDT Surgery [facility] Operating Room [address] [place] [address] 87231 Angel Coombs DPM INCISION [employer] DRAINAGE woth possible delayed primary closure right foot 06/08/2024 1:28 PM CDT Anesthesia Event [facility] Operating Room [address] [place] [address] 83907 Lupe Connor MD [place], Gary D., DO 06/08/2024 1:11 PM CDT - 06/08/2024 3:11 PM CDT [facility] [facility] Operating Room [address] [place] [id number] Steve Lopez DPM Right second toe amputation with wound debridement and incision and drainage. Possible transmetatarsal amputation with gastroc lengthening 06/06/2024 8:58 AM CDT - 06/17/2024 2:54 PM CDT Hospital Encounter [facility] Medical/Surgical [address] [place] [phone] Shantell Lewis MD Weyer, Janelle L., MD Infection of right foot (Primary Dx); Hyperglycemia; Acute renal failure, unspecified acute renal failure type (HCC); Type 2 diabetes mellitus with diabetic neuropathy, without long-term current use of insulin (HCC); Status post PICC central line placement; Status post peripherally inserted central catheter (PICC) central line placement; Longstanding persistent atrial fibrillation (HCC) Discharge Disposition: Home or Self Care 06/06/2024 Travel 06/02/2024 6:18 PM CDT - 06/02/2024 7:14 PM CDT Emergency [facility] Emergency Room [address] [place] [id number] Cellulitis of right lower extremity (Primary Dx); Diabetic ulcer of right midfoot associated with type 2 diabetes mellitus, unspecified ulcer stage (HCC) Discharge Disposition: Home or Self Care 06/02/2024 Travel 06/01/2024 1:15 PM CDT Office Visit [facility] [address] [place] [phone] Domo Boss PA-C Viral upper respiratory infection (Primary Dx) 05/29/2024 8:30 AM CDT Office Visit Acute Care [address] [place] [address] Dinorah Mak, DNP, RADIOLOGY ASST, UNDERGROUND MINE MACHINERY MECHANIC Type 2 diabetes mellitus with right diabetic foot ulcer (HCC) (Primary Dx); Blood pressure check from Last 3 Months Immunizations Name Administration Dates Next Due COVID-19, mRNA, LNP-S, PF, 3 0mcg/0.3mL dose Pfizer 01/13/2021,12/23/2020 Flu Vaccine High Dose 65yrs and Older IM 07/10/2023,07/21/2015 Influenza 6mo-64yrs Quad Pre servative Free IM 10/06/2019,09/12/2016,09/20/2014 Influenza Split 07/21/2015 Influenza, Trivalent, PF 09/08/2012 Influenza, Unspecified 03/13/2019(Deferred: Othe r) Pneumococcal Polysaccharide 11/09/2010 TD Preservative Free 03/13/2019 Td 12/24/2018(Deferred: Other),02/19 Tdap 03/21/2019,01/22/2008 Zoster 03/13/2019(Deferred: Other) Zoster Recombinant 03/13/2019 Family History Medical History Relation Comments Macular degeneration Maternal Grandmother Relation Status Comments Maternal Grandmother Social History Tobacco Use Types Packs/Day Years Used Date Smoking Tobacco: Never Passive Smoke Exposure: Never Smokeless Tobacco: Never Tobacco Cessation:Counseling Given: Not Answered Alcohol Use Standard Drinks/Week Comments Yes 2 (1 standard drink = 0.6 oz pur e alcohol) 3x / week [id number] Health Literacy Answer Date Recor ded How often do you need to hav e someone help you when you read instructions, pamphlets, or other written material from your doctor or pharmacy? Never 06/06/2024 [facility] Utilities Answer Date Recorded In the past 12 months has e electric, gas, oil, or water company threatened to shut off services in your home? No 06/06/2024 Humiliation, Afraid, Rape, and Kick questionnair e Answer Date Recorded Within the last year, have y ou been afraid of your partner or ex-partner? No 06/06/2024 Within the last year, have y ou been humiliated or emotionally abused in other ways by your partner or ex-partner? No Within the last year, have y ou been kicked, hit, slapped, or otherwise physically hurt by your partner or ex-partner? No 06/06/2024 Within the last year, have y ou been raped or forced to have any kind of sexual activity by your partner or ex-partner? No 06/06/2024 Social Connection and Isolat ion Panel [NHANES] Answer Date Recorded In a typical week, how many times do you talk on the phone with family, friends, or neighbors? More than three times a week 06/06/2024 How often do you get togethe r with friends or relatives? Three times a week 06/06/2024 How often do you attend [facility] or [facility] services? More than 4 times per year 06/06/2024 Do you belong to any clubs o r organizations such as mandaeism groups, unions, fraternal or athletic groups, or school groups? Yes 06/06/2024 How often do you attend meet ings of the clubs or organizations you belong to? More than 4 times per year 06/06/2024 Are you , , di vorced, , never , or living with a partner? 06/06/2024 AUDIT-C Answer Date Recorded Q1: How often do you have a drink containing alc ohol? 2-3 times a week 06/06/2024 Q2: How many drinks containi ng alcohol do you have on a typical day when you are drinking? 1 or 2 06/06/2024 Q3: How often do you have si x or more drinks on one occasion? Never 06/06/2024 Overall Financial Resource Strain (CARDIA) Answe r Date Recorded How hard is it for you to pa y for the very basics like food, housing, medical care, and heating? Not very hard 06/06/2024 PHQ-2 Answer Date Recorded Patient Health Questionnaire-2 Score 0 06/06/2024 [facility] [facility] Occupat ional Health - Occupational Stress Questionnaire Answer Date Recorded Do you feel stress - tense, restless, nervous, or anxious, or unable to sleep at night because your mind is troubled all the time - these days? Not at all 06/06/2024 Exercise Vital Sign Answer Date Recorde d On average, how many days pe r week do you engage in moderate to strenuous exercise (like a brisk walk)? 1 day Minutes of Exercise per Session Not on file 06/06/2024 Hunger Vital Sign Answer Date Recorded Within the past 12 months, y ou worried that your food would run out before you got the money to buy more. Never true 06/06/20 24 Within the past 12 months, t he food you bought just didn't last and you didn't have money to get more. Never true 06/06/2024 PRAPARE - Transportation Answer Date Re corded In the past 12 months, has l ack of transportation kept you from medical appointments or from getting medications? No 05/21 In the past 12 months, has l ack of transportation kept you from meetings, work, or from getting things needed for daily living? No 06/06/2024 Housing Stability Vital Sign Answer James e Recorded In the last 12 months, was t here a time when you were not able to pay the mortgage or rent on time? No 06/06/2024 In the past 12 months, how m any times have you moved where you were living? 1 06/06/2024 At any time in the past 12 m [facility], were you homeless or living in a half-way (including now)? No 06/06/2024 Interpersonal Safety Questionnaire Answer Date Recorded How often does anyone, tyrell kerns family and friends, physically hurt you? Never 06/06/2024 How often does anyone, tyrell kerns family and friends, insult or talk down to you? Never 06/06/2024 How often does anyone, tyrell kerns family and friends, threaten you with harm? Never 06/06/2024 How often does anyone, ytrell kerns family and friends, threaten you with harm? Never 06/06/2024 Sex and Gender Information Value Date Recorded Sex Assigned at Not on file Gender Identity Not on file Sexual Orientation Not on file Last Filed Vital Signs Vital Sign Reading Time Taken Comments Blood Pressure 128/97 08/20/2024 10:35 AM CDT Pulse 84 08/20/2024 10:35 AM CDT Temperature 36.7 ??C (98 ??F) 08/20/2024 10: 35 AM CDT Respiratory Rate 16 08/19/2024 10:5 0 AM CDT Oxygen Saturation 95% 08/20/2024 10: 35 AM CDT Inhaled Oxygen Concentration - - Weight 86.6 kg (190 lb 14.4 oz) 07/23/2024 8:26 AM CDT Height 185.4 cm (6' 1) 07/23/2024 8:26 AM CDT Body Mass Index 25.19 07/23/2024 8:26 AM CDT Plan of Treatment Upcoming Encounters Date Type Department Care Team (Late st Contact Info) Description 08/24/2024 8:30 AM ROTARY LITHOGRAPHIC PRESS OPERATOR Office Visit [facility] Wound Care [address] [place] [address] [phone] 08/24/2024 11:30 AM ROTARY LITHOGRAPHIC PRESS OPERATOR Office Visit Podiatry [address] [place] [address] [phone] Angel Coombs, DPM [address] [place] [phone] 08/25/2024 8:30 AM ROTARY LITHOGRAPHIC PRESS OPERATOR Office Visit [facility] Wound Care [address] [place] [address] [phone] 08/26/2024 8:30 AM ROTARY LITHOGRAPHIC PRESS OPERATOR Office Visit [facility] Wound Care [address] [place] [address] [phone] 08/27/2024 8:30 AM ROTARY LITHOGRAPHIC PRESS OPERATOR Office Visit [facility] Wound Care [address] [place] [address] [phone] 08/27/2024 11:00 AM ROTARY LITHOGRAPHIC PRESS OPERATOR Office Visit [facility] Wound Care [address] [place] [address] [phone] Vilma Neves MD [address] [place] [phone] 08/28/2024 8:30 AM ROTARY LITHOGRAPHIC PRESS OPERATOR Office Visit [facility] Wound Care [address] [place] [address] [phone] 08/31/2024 8:30 AM ROTARY LITHOGRAPHIC PRESS OPERATOR Office Visit [facility] Wound Care [address] [place] [address] [phone] 09/01/2024 8:30 AM ROTARY LITHOGRAPHIC PRESS OPERATOR Office Visit [facility] [address] [place] [address] [phone] 09/02/2024 8:30 AM ROTARY LITHOGRAPHIC PRESS OPERATOR Office Visit [facility] [address] [place] [address] [phone] 09/03/2024 8:30 AM ROTARY LITHOGRAPHIC PRESS OPERATOR Office Visit [facility] [address] [place] [address] [phone] 09/03/2024 11:00 AM ROTARY LITHOGRAPHIC PRESS OPERATOR Office Visit [facility] [address] [place] [address] [phone] Vilma Neves MD [address] [place] [phone] 09/03/2024 11:00 AM ROTARY LITHOGRAPHIC PRESS OPERATOR Office Visit [facility] Infectious Disease [address] [place] [address] [phone] Amairani Sigala MD [address] [place] [phone] 09/04/2024 8:30 AM ROTARY LITHOGRAPHIC PRESS OPERATOR Office Visit [facility] [address] [place] [address] [phone] 09/07/2024 8:30 AM ROTARY LITHOGRAPHIC PRESS OPERATOR Office Visit [facility] [address] [place] [address] [phone] 09/08/2024 8:30 AM ROTARY LITHOGRAPHIC PRESS OPERATOR Office Visit [facility] [address] [place] [address] [phone] 09/09/2024 8:30 AM ROTARY LITHOGRAPHIC PRESS OPERATOR Office Visit [facility] [address] [place] [address] [phone] 09/10/2024 8:30 AM ROTARY LITHOGRAPHIC PRESS OPERATOR Office Visit [facility] [address] [place] [address] [phone] 09/10/2024 11:20 AM ROTARY LITHOGRAPHIC PRESS OPERATOR Office Visit [facility] [address] [place] [address] [phone] Vilma Neves MD [address] [place] [phone] 09/11/2024 8:30 AM ROTARY LITHOGRAPHIC PRESS OPERATOR Office Visit [facility] Wound Care [address] [place] [address] [phone] 09/14/2024 8:30 AM ROTARY LITHOGRAPHIC PRESS OPERATOR Office Visit [facility] Wound Care [address] [place] [address] [phone] 09/15/2024 8:30 AM ROTARY LITHOGRAPHIC PRESS OPERATOR Office Visit [facility] Wound Care [address] [place] [address] [phone] Health Maintenance Due Date Last Done Comments CT Colonography 1957 Colonoscopy 1957 Colorectal Cancer Screening 1957 FIT-DNA 1957 Lipid Panel 1957 Sigmoidoscopy 1957 iFOBT 1957 Diabetes: Urine Protein Screening 02/09/1976 Pneumococcal Vaccine: 65+ Years (2 of 2 - PCV) 11/09/2011 11/09/2010 Zoster Vaccines (2 of 2) 05/08/2019 03/13/2019 COVID-19 Vaccine ( season) 2024 07/31/2023, 10/10/2022, 01/13/2021, Additional history exists Influenza Vaccine (#1) 2024 , 10/06/2019, 09/12/2016, Additional history exists Diabetes: Retinopathy Screening 07/23/2024 07/23/2023, 07/23/2023, 07/23/2023, Additional history exists Diabetes: Hemoglobin A1C 12/07/2024 06/06/2024 Diabetic: Foot Exam 06/02/2025 06/02/2024, 06/02/2024, 06/02/2024, Additional history exists Fall Risk Performed 06/17/2025 06/17/2024 DTaP,Tdap,and Td Vaccines (4 - Td or Tdap) 03/21/2029 03/21/2019, 03/13/2019, 01/22/2008, Additional history exists HPV Vaccines Aged Out No longer eligi ble based on patient's age to complete this topic Procedures Procedure Name Priority Date/Time Associated Diagnosis Comments POCT PRECISION GLUCOSE Routine 08/20/2024 10:42 AM CDT POCT PRECISION GLUCOSE Routine 08/20/2024 8:32 AM CDT POCT PRECISION GLUCOSE Routine 08/19/2024 10:56 AM CDT POCT PRECISION GLUCOSE Routine 08/19/2024 8:42 AM CDT POCT PRECISION GLUCOSE Routine 08/18/2024 10:45 AM CDT POCT PRECISION GLUCOSE Routine 08/18/2024 8:29 AM CDT POCT PRECISION GLUCOSE Routine 08/17/2024 10:54 AM CDT POCT PRECISION GLUCOSE Routine 08/17/2024 8:44 AM CDT POCT PRECISION GLUCOSE Routine 08/14/2024 10:31 AM CDT POCT PRECISION GLUCOSE Routine 08/14/2024 8:19 AM CDT POCT PRECISION GLUCOSE Routine 08/13/2024 11:01 AM CDT POCT PRECISION GLUCOSE Routine 08/13/2024 8:43 AM CDT POCT PRECISION GLUCOSE Routine 08/12/2024 10:41 AM CDT POCT PRECISION GLUCOSE Routine 08/12/2024 8:27 AM CDT POCT PRECISION GLUCOSE Routine 08/11/2024 10:26 AM CDT POCT PRECISION GLUCOSE Routine 08/11/2024 8:22 AM CDT POCT PRECISION GLUCOSE Routine 08/10/2024 10:59 AM CDT POCT PRECISION GLUCOSE Routine 08/10/2024 8:44 AM CDT POCT PRECISION GLUCOSE Routine 08/07/2024 11:11 AM CDT POCT PRECISION GLUCOSE Routine 08/07/2024 8:50 AM CDT POCT PRECISION GLUCOSE Routine 08/06/2024 10:51 AM CDT POCT PRECISION GLUCOSE Routine 08/06/2024 8:39 AM CDT POCT PRECISION GLUCOSE Routine 08/05/2024 10:45 AM CDT POCT PRECISION GLUCOSE Routine 08/05/2024 8:41 AM CDT POCT PRECISION GLUCOSE Routine 08/04/2024 10:40 AM CDT POCT PRECISION GLUCOSE Routine 08/04/2024 8:34 AM CDT ESTIMATED GLOMERULAR FILTRATION RATE (EGFR) Routine 08/03/2024 12:12 PM CDT Infection of right foot CBC Routine 08/03/2024 12:12 PM CDT Infection of right foot AST Routine 08/03/2024 12:12 PM CDT Infection of right foot ALT Routine 08/03/2024 12:12 PM CDT Infection of right foot BASIC METABOLIC PANEL Routine 08/03/2024 12:12 PM CDT Infection of right foot POCT PRECISION GLUCOSE Routine 08/03/2024 10:52 AM CDT POCT PRECISION GLUCOSE Routine 08/03/2024 8:39 AM CDT POCT PRECISION GLUCOSE Routine 07/31/2024 10:40 AM CDT POCT PRECISION GLUCOSE Routine 07/31/2024 8:31 AM CDT POCT PRECISION GLUCOSE Routine 07/30/2024 10:27 AM CDT POCT PRECISION GLUCOSE Routine 07/30/2024 8:25 AM CDT POCT PRECISION GLUCOSE Routine 07/29/2024 10:26 AM CDT POCT PRECISION GLUCOSE Routine 07/29/2024 8:23 AM CDT POCT PRECISION GLUCOSE Routine 07/28/2024 10:55 AM CDT POCT PRECISION GLUCOSE Routine 07/28/2024 8:46 AM CDT POCT PRECISION GLUCOSE Routine 07/27/2024 10:50 AM CDT POCT PRECISION GLUCOSE Routine 07/27/2024 8:31 AM CDT POCT PRECISION GLUCOSE Routine 07/24/2024 11:07 AM CDT POCT PRECISION GLUCOSE Routine 07/24/2024 8:57 AM CDT POCT PRECISION GLUCOSE Routine 07/23/2024 11:58 AM CDT POCT PRECISION GLUCOSE Routine 07/23/2024 9:44 AM CDT POCT PRECISION GLUCOSE Routine 07/22/2024 10:46 AM CDT POCT PRECISION GLUCOSE Routine 07/22/2024 8:35 AM CDT POCT PRECISION GLUCOSE Routine 07/21/2024 10:43 AM CDT POCT PRECISION GLUCOSE Routine 07/21/2024 8:35 AM CDT POCT PRECISION GLUCOSE Routine 07/20/2024 11:36 AM CDT POCT PRECISION GLUCOSE Routine 07/20/2024 9:32 AM CDT POCT PRECISION GLUCOSE Routine 07/20/2024 9:12 AM CDT POCT PRECISION GLUCOSE Routine 07/20/2024 8:46 AM CDT US LOWER EXTREMITY ART DOPPLER BILATERAL LIMITED (ANNA'S) Routine 07/20/2024 7:49 AM CDT Non-healing surgical wound, subsequent encounter POCT PRECISION GLUCOSE Routine 07/17/2024 10:58 AM CDT POCT PRECISION GLUCOSE Routine 07/17/2024 8:40 AM CDT POCT PRECISION GLUCOSE Routine 07/16/2024 10:44 AM CDT POCT PRECISION GLUCOSE Routine 07/16/2024 8:22 AM CDT POCT PRECISION GLUCOSE Routine 07/15/2024 8:37 AM CDT ESTIMATED GLOMERULAR FILTRATION RATE (EGFR) Routine 07/14/2024 2:09 PM CDT Infection of right foot COMPREHENSIVE METABOLIC PANEL Routine 07/14/2024 2:09 PM CDT Infection of right foot CBC WITH AUTO DIFFERENTIAL Routine 07/14/2024 2:09 PM CDT Infection of right foot POCT PRECISION GLUCOSE Routine 07/14/2024 10:57 AM CDT POCT PRECISION GLUCOSE Routine 07/14/2024 8:35 AM CDT POCT PRECISION GLUCOSE Routine 07/13/2024 11:10 AM CDT POCT PRECISION GLUCOSE Routine 07/13/2024 8:42 AM CDT POCT PRECISION GLUCOSE Routine 07/13/2024 8:20 AM CDT PREALBUMIN Routine 07/10/2024 12:02 PM CDT Diabetic ulcer of right midfoot associated with type 2 diabetes mellitus, 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) ESTIMATED GLOMERULAR FILTRATION RATE (EGFR) Routine 07/07/2024 2:11 PM CDT Infection of right foot COMPREHENSIVE METABOLIC PANEL Routine 07/07/2024 2:11 PM CDT Infection of right foot CBC WITH AUTO DIFFERENTIAL Routine 07/07/2024 2:11 PM CDT Infection of right foot ESTIMATED GLOMERULAR FILTRATION RATE (EGFR) Routine 06/30/2024 1:56 PM CDT Infection of right foot COMPREHENSIVE METABOLIC PANEL Routine 06/30/2024 1:56 PM CDT Infection of right foot CBC WITH AUTO DIFFERENTIAL Routine 06/30/2024 1:56 PM CDT Infection of right foot ESTIMATED GLOMERULAR FILTRATION RATE (EGFR) Routine 06/23/2024 12:53 PM CDT Infection of right foot COMPREHENSIVE METABOLIC PANEL Routine 06/23/2024 12:53 PM CDT Infection of right foot CBC WITH AUTO DIFFERENTIAL Routine 06/23/2024 12:53 PM CDT Infection of right foot POCT PRECISION GLUCOSE Routine 06/17/2024 11:43 AM CDT POCT PRECISION GLUCOSE Routine 06/17/2024 6:37 AM CDT ESTIMATED GLOMERULAR FILTRATION RATE (EGFR) Routine 06/17/2024 5:50 AM CDT BASIC METABOLIC PANEL Routine 06/17/2024 5:50 AM CDT CBC Routine 06/17/2024 5:50 AM CDT POCT PRECISION GLUCOSE Routine 06/16/2024 10:04 PM CDT POCT PRECISION GLUCOSE Routine 06/16/2024 4:39 PM CDT POCT PRECISION GLUCOSE Routine 06/16/2024 11:20 AM CDT POCT PRECISION GLUCOSE Routine 06/16/2024 6:55 AM CDT ESTIMATED GLOMERULAR FILTRATION RATE (EGFR) Routine 06/16/2024 6:08 AM CDT BASIC METABOLIC PANEL Routine 06/16/2024 6:08 AM CDT CBC Routine 06/16/2024 6:08 AM CDT POCT PRECISION GLUCOSE Routine 06/15/2024 11:19 PM CDT XR CHEST 1 VIEW STAT 06/15/2024 8:09 PM CDT Status post peripherally inserted central catheter (PICC) central line placement POCT PRECISION GLUCOSE Routine 06/15/2024 6:59 PM CDT XR CHEST 1 VIEW STAT 06/15/2024 6:50 PM CDT Status post PICC central line placement ANESTHESIA PICC LINE PLACEMENT Routine 06/15/2024 6:00 PM CDT POCT PRECISION GLUCOSE Routine 06/15/2024 11:15 AM CDT POCT PRECISION GLUCOSE Routine 06/15/2024 7:21 AM CDT ESTIMATED GLOMERULAR FILTRATION RATE (EGFR) Routine 06/15/2024 6:00 AM CDT BASIC METABOLIC PANEL Routine 06/15/2024 6:00 AM CDT CBC Routine 06/15/2024 6:00 AM CDT POCT PRECISION GLUCOSE Routine 06/14/2024 9:23 PM CDT POCT PRECISION GLUCOSE Routine 06/14/2024 5:47 PM CDT POCT PRECISION GLUCOSE Routine 06/14/2024 11:13 AM CDT POCT PRECISION GLUCOSE Routine 06/14/2024 6:27 AM CDT ESTIMATED GLOMERULAR FILTRATION RATE (EGFR) Routine 06/14/2024 5:45 AM CDT BASIC METABOLIC PANEL Routine 06/14/2024 5:45 AM CDT CBC Routine 06/14/2024 5:45 AM CDT POCT PRECISION GLUCOSE Routine 06/13/2024 8:59 PM CDT POCT PRECISION GLUCOSE Routine 06/13/2024 5:36 PM CDT POCT PRECISION GLUCOSE Routine 06/13/2024 11:48 AM CDT POCT PRECISION GLUCOSE Routine 06/13/2024 6:37 AM CDT ESTIMATED GLOMERULAR FILTRATION RATE (EGFR) Routine 06/13/2024 5:00 AM CDT BASIC METABOLIC PANEL Routine 06/13/2024 5:00 AM CDT CBC Routine 06/13/2024 5:00 AM CDT POCT PRECISION GLUCOSE Routine 06/13/2024 12:06 AM CDT POCT PRECISION GLUCOSE Routine 06/12/2024 7:12 PM CDT POCT PRECISION GLUCOSE Routine 06/12/2024 6:32 PM CDT TISSUE CULTURE, ANAEROBIC Routine 06/12/2024 5:05 PM CDT TISSUE CULTURE, AEROBIC Routine 06/12/2024 5:04 PM CDT INCISION AND DRAINAGE 06/12/2024 4:43 PM CDT Infection of right foot Special Needs power irrigation, cultures, iodoform 10/24 available POCT PRECISION GLUCOSE Routine 06/12/2024 11:59 AM CDT ESTIMATED GLOMERULAR FILTRATION RATE (EGFR) Routine 06/12/2024 5:40 AM CDT BASIC METABOLIC PANEL Routine 06/12/2024 5:40 AM CDT CBC Routine 06/12/2024 5:40 AM CDT POCT PRECISION GLUCOSE Routine 06/11/2024 9:29 PM CDT POCT PRECISION GLUCOSE Routine 06/11/2024 4:47 PM CDT POCT PRECISION GLUCOSE Routine 06/11/2024 11:29 AM CDT POCT PRECISION GLUCOSE Routine 06/11/2024 7:34 AM CDT ESTIMATED GLOMERULAR FILTRATION RATE (EGFR) Routine 06/11/2024 6:10 AM CDT BASIC METABOLIC PANEL Routine 06/11/2024 6:10 AM CDT CBC Routine 06/11/2024 6:10 AM CDT POCT PRECISION GLUCOSE Routine 06/10/2024 9:46 PM CDT POCT PRECISION GLUCOSE Routine 06/10/2024 5:10 PM CDT POCT PRECISION GLUCOSE Routine 06/10/2024 11:33 AM CDT POCT PRECISION GLUCOSE Routine 06/10/2024 6:31 AM CDT ESTIMATED GLOMERULAR FILTRATION RATE (EGFR) Routine 06/10/2024 5:54 AM CDT BASIC METABOLIC PANEL Routine 06/10/2024 5:54 AM CDT CBC Routine 06/10/2024 5:54 AM CDT POCT PRECISION GLUCOSE Routine 06/09/2024 11:24 PM CDT POCT PRECISION GLUCOSE Routine 06/09/2024 6:27 PM CDT VANCOMYCIN Timed 06/09/2024 11:38 AM CDT POCT PRECISION GLUCOSE Routine 06/09/2024 11:00 AM CDT MRSA, BY PCR, NASAL Routine 06/09/2024 9 :50 AM CDT POCT PRECISION GLUCOSE Routine 06/09/2024 6:39 AM CDT ESTIMATED GLOMERULAR FILTRATION RATE (EGFR) Routine 06/09/2024 6:05 AM CDT BASIC METABOLIC PANEL Routine 06/09/2024 6:05 AM CDT CBC Routine 06/09/2024 6:05 AM CDT POCT PRECISION GLUCOSE Routine 06/08/2024 9:53 PM CDT POCT PRECISION GLUCOSE Routine 06/08/2024 3:44 PM CDT FL C-ARM FLUOROSCOPY UP TO 1 HOUR Routine 06/08/2024 3:14 PM CDT POCT PRECISION GLUCOSE Routine 06/08/2024 3:08 PM CDT PATHOLOGY Routine 06/08/2024 2:11 PM CDT TISSUE CULTURE, ANAEROBIC Routine 06/08/2024 2:10 PM CDT TISSUE CULTURE, AEROBIC Routine 06/08/2024 2:10 PM CDT AMPUTATION METATARSAL 06/08/2024 1:29 PM CDT Infection of right foot Type 2 diabetes mellitus with diabetic neuropathy, without long-term current use of insulin ([facility]) POCT PRECISION GLUCOSE Routine 06/08/2024 12:30 PM CDT POCT PRECISION GLUCOSE Routine 06/08/2024 8:45 AM CDT POCT PRECISION GLUCOSE Routine 06/08/2024 7:08 AM CDT ESTIMATED GLOMERULAR FILTRATION RATE (EGFR) Routine 06/08/2024 6:05 AM CDT BASIC METABOLIC PANEL Routine 06/08/2024 6:05 AM CDT CBC Routine 06/08/2024 6:05 AM CDT POCT PRECISION GLUCOSE Routine 06/07/2024 11:05 PM CDT POCT PRECISION GLUCOSE Routine 06/07/2024 5:42 PM CDT POCT PRECISION GLUCOSE Routine 06/07/2024 12:04 PM CDT POCT PRECISION GLUCOSE Routine 06/07/2024 7:17 AM CDT ESTIMATED GLOMERULAR FILTRATION RATE (EGFR) Routine 06/07/2024 5:13 AM CDT VANCOMYCIN Timed 06/07/2024 5:13 AM CDT BASIC METABOLIC PANEL Routine 06/07/2024 5:13 AM CDT CBC Routine 06/07/2024 5:13 AM CDT POCT PRECISION GLUCOSE Routine 06/06/2024 10:25 PM CDT POCT PRECISION GLUCOSE Routine 06/06/2024 6:15 PM CDT POCT PRECISION GLUCOSE Routine 06/06/2024 1:56 PM CDT MR FOOT RIGHT WO IV CONTRAST STAT 06/06/2024 12:23 PM CDT ESTIMATED GLOMERULAR FILTRATION RATE (EGFR) STAT 06/06/2024 10:00 AM CDT REFLEXED MANUAL DIFF STAT 06/06/2024 10:00 AM CDT MORPHOLOGY STAT 06/06/2024 10:00 AM CDT BLOOD GAS, VENOUS STAT 06/06/2024 10:00 AM CDT PROCALCITONIN STAT 06/06/2024 10:00 AM CDT C-REACTIVE PROTEIN STAT 06/06/2024 10:00 AM CDT PROTIME-INR STAT 06/06/2024 10:00 AM CDT MAGNESIUM STAT 06/06/2024 10:00 AM CDT HEMOGLOBIN A1C STAT 06/06/2024 10:00 AM CDT LACTATE, PLASMA STAT 06/06/2024 10:00 AM CDT BASIC METABOLIC PANEL STAT 06/06/2024 10:00 AM CDT CBC WITH AUTO DIFFERENTIAL STAT 06/06/2024 10:00 AM CDT APTT STAT 06/06/2024 10:00 AM CDT COVID-19, [facility] ID NOW, PCR STAT 06/06/2024 9:55 AM CDT TISSUE CULTURE, ANAEROBIC STAT 06/06/2024 9:36 AM CDT TISSUE CULTURE, AEROBIC STAT 06/06/2024 9:36 AM CDT XR FOOT 3+ VIEWS RIGHT STAT 06/02/2024 6:53 PM CDT from Last 3 Months Results * (ABNORMAL) POCT Precision glucose (08/20/2024 10:42 AM CDT) Only the most recent of107 resultswithin the time period is included. [facility] [facility] Glucose Blood, POC 165(H) 70 - 100 mg/dL 08/20/2024 11:07 AM CDT [facility] Comment: Meter ID: [id number] Capillary whole blood specimens should not be used in patients receiving intensive medical intervention/therapy because of the potential for pre-analytical collection error and specifically in patients with decreased peripheral blood flow, as it may not truly reflect the patient? s true physiological state. Examples include, but are not limited to, severe hypotension, shock, hyperosmolar-hyperglycemia (with or without ketosis), and severe dehydration. 08/20/2024 10:4 2 AM CDT 08/20/2024 11:08 AM CDT Vilma Neves MD LAB POINT OF CARE TE ST DOCKED DEVICE UNSOLICITED RESULTS [facility] [address] [place] [address] * Estimated Glomerular Filtration Rate (eGFR) (08/03/2024 12:12 PM CDT) Only the most recent of17 resultswithin the time period is included. [facility] Estimated Glomerular Filtration Rate (eGFR) >60 08/03/2024 2:09 PM [facility] Comment: GFR calculated from serum creatinine value Chronic Kidney Disease less than 60 mL/min/1.73 m2 Kidney Failure less than 15 mL/min/1.73 m2 Note: effective 10/17/2022: 2020 CKD-EPI Equation used 08/03/2024 12:1 2 PM CDT 08/03/2024 12:12 PM CDT Amairani Strickland MD LAB BLOOD ORDERABL ES [facility] [address] [place] [address] * (ABNORMAL) CBC ([employer]) (08/03/2024 12:12 PM CDT) Only the most recent of12 resultswithin the time period is included. Pathologist [facility] WBC 6.8 3.5 - 10.5 K/uL 08/03/2024 1:01 PM [facility] RBC 5.49 4.30 - 5.70 M/uL 08/03/2024 1:01 PM [facility] Hemoglobin 16.1 13.5 - 17.5 g/dL 08/03/2024 1:01 PM [facility] Hematocrit 50.3(H) 38.0 - 50.0 % 08/03/2024 1:01 PM [facility] Platelets 212 150 - 450 K/uL 08/03/2024 1:01 PM [facility] MCV 91.6 81.2 - 95.1 fL 08/03/2024 1:01 PM [facility] MCH 29.3 26.0 - 32.0 pg 08/03/2024 1:01 PM [facility] MCHC 32.0 32.0 - 36.0 g/dL 08/03/2024 1:01 PM [facility] RDW 14.9 11.8 - 15.6 % 08/03/2024 1:01 PM [facility] NRBC %, Automated 0 % 08/03/2024 1:01 PM CDT [facility] NRBC Absolute, Autmated 0.00 K/uL 08/03/2024 1:01 PM CDT [facility] Comment: 0-4 Days: 0.01 -0.02 >=5 Days: 0.00 Blood (Blood, Venous) 08/03/2024 12:12 PM CDT 08/03/2024 12:37 PM CDT Amairani Strickland MD LAB BLOOD ORDERABL ES Performing Organization Address [facility]/ZIP Co de Phone Number [facility] [address] [place] [address] * ALT (08/03/2024 12:12 PM CDT) ALT (SGPT) 22 0 - 49 U/L 08/03/2024 2:09 PM CDT [facility] Blood (Blood, Venous) 08/03/2024 12:12 PM CDT 08/03/2024 12:37 PM CDT Amairani Strickland MD LAB BLOOD ORDERABL ES Performing Organization Address [facility] Co de Phone Number [facility] [address] [place], [place] [id number] * AST (08/03/2024 12:12 PM CDT) AST 31 8 - 48 U/L 08/03/2024 2:09 PM CDT [facility] Blood (Blood, Venous) 08/03/2024 12:12 PM CDT 08/03/2024 12:37 PM CDT Amairani Strickland MD LAB BLOOD ORDERABL ES Performing Organization Address [facility]/ZIP Co de Phone Number [facility] [address] [place] [phone] * (ABNORMAL) Basic metabolic panel (08/03/2024 12:12 PM CDT) Only the most recent of13 resultswithin the time period is included. Sodium 139 135 - 145 mEq/L 08/03/2024 2:09 PM T [facility] Potassium 4.5 3.5 - 5.1 mEq/L 08/03/2024 2:09 PM [facility] Chloride 105 98 - 107 mEq/L 08/03/2024 2:09 PM [facility] CO2 25 22 - 31 mmol/L 08/03/2024 2:09 PM [facility] Creatinine 1.06 0.60 - 1.40 mg/dL 08/03/2024 2:09 PM [facility] BUN 21 5 - 25 mg/dL 08/03/2024 2:09 PM [facility] Glucose 102(H) 70 - 100 mg/dL 08/03/2024 2:09 PM [facility] Calcium, Total,S 9.9 8.4 - 10.2 mg/dL 08/03/2024 2:09 PM [facility] Anion Gap 9 4 - 13 08/03/2024 2:09 PM [facility] Comment: The anion gap is calculated with the following formula: AGAP = Na ? (Cl + CO2). Fasting? Unknown 08/03/2024 12:12 PM T [facility] Blood (Blood, Venous) 08/03/2024 12:12 PM CDT 08/03/2024 12:37 PM CDT Amairani Strickland MD LAB BLOOD ORDERABL ES [facility] [address] [place] [address] * Ultrasound lower extremity art doppler bilateral limited (ANNA's) (07/20/2024 7:49 AM CDT) Anatomical Region Laterality Modality Body, Lower Extremities Bilateral Ultrasou nd Impressions 07/20/2024 8:47 AM CDT No evidence for significant peripheral arterial disease. Narrative 07/20/2024 8:47 AM CDT INDICATION: Non healing surgical wound COMPARISON: None FINDINGS: SEGMENTAL PRESSURES AND ABIs Right posterior tibialis ANNA is 0.94 which is within normal limits. Right dorsalis pedis ANNA is 1.16 which is within normal limits. Right DBI is 0.61 which is within normal limits. Left posterior tibialis ANNA is 0.97 which is within normal limits. Left dorsalis pedis ANNA is 1.09 which is within normal limits. Left DBI is 0.80 which is within normal limits. DOPPLER WAVEFORMS Doppler waveforms bilaterally are multiphasic. Please see images in PACS for complete numerical and waveform data. LEGEND ANNA CRITERIA >1.3-Falsely Elevated 0.9-1.3-Normal 0.75-0.9-Mildly Decreased 0.5-0.74-Moderately Decreased <0.5-Severely Decreased DBI CRITERIA >0.6-Normal 0.45-0.59-Mildly Decreased 0.30-0.44-Moderately Decreased <0.3-Severely Decreased Procedure Note Rayna Esquivel MD - 07/20/2024 INDICATION: Non healing surgical wound COMPARISON: None FINDINGS: SEGMENTAL PRESSURES AND ABIs Right posterior tibialis ANNA is 0.94 which is within normal limits. Right dorsalis pedis ANNA is 1.16 which is within normal limits. Right DBI is 0.61 which is within normal limits. Left posterior tibialis ANNA is 0.97 which is within normal limits. Left dorsalis pedis ANNA is 1.09 which is within normal limits. Left DBI is 0.80 which is within normal limits. DOPPLER WAVEFORMS Doppler waveforms bilaterally are multiphasic. Please see images in PACS for complete numerical and waveform data. LEGEND ANNA CRITERIA >1.3-Falsely Elevated 0.9-1.3-Normal 0.75-0.9-Mildly Decreased 0.5-0.74-Moderately Decreased <0.5-Severely Decreased DBI CRITERIA >0.6-Normal 0.45-0.59-Mildly Decreased 0.30-0.44-Moderately Decreased <0.3-Severely Decreased IMPRESSION: No evidence for significant peripheral arterial disease. Rocco Couch PA-C IMG US PROCEDURES * CBC auto differential (07/14/2024 2:09 PM CDT) Only the most recent of5 resultswithin the time period is included. WBC 7.0 3.5 - 10.5 K/uL 07/14/2024 2:53 PM [facility] RBC 5.44 4.30 - 5.70 M/uL 07/14/2024 2:53 PM [facility] Hemoglobin 16.4 13.5 - 17.5 g/dL 07/14/2024 2:53 PM [facility] Hematocrit 49.2 38.0 - 50.0 % 07/14/2024 2:53 PM [facility] Platelets 225 150 - 450 K/uL 07/14/2024 2:53 PM [facility] MCV 90.4 81.2 - 95.1 fL 07/14/2024 2:53 PM [facility] MCH 30.1 26.0 - 32.0 pg 07/14/2024 2:53 PM [facility] MCHC 33.3 32.0 - 36.0 g/dL 07/14/2024 2:53 PM [facility] RDW 15.0 11.8 - 15.6 % 07/14/2024 2:53 PM [facility] NRBC %, Automated 0 % 07/14/2024 2:53 PM [facility] NRBC Absolute, Autmated 0.00 K/uL 07/14/2024 2:53 PM [facility] Comment: 0-4 Days: 0.01 -0.02 >=5 Days: 0.00 Neutrophils 72.3 % 07/14/2024 2:53 PM [facility] Absolute Neutrophils 5.1 1.7 - 7.0 K/uL 07/14/2024 2:53 PM [facility] Lymphocytes % 16.1 % 07/14/2024 2:53 PM [facility] Absolute Lymphocytes 1.1 0.9 - 2.9 K/uL 07/14/2024 2:53 PM [facility] Monocytes % 7.7 % 07/14/2024 2:53 PM CDT [facility] Monocytes Absolute 0.5 0.3 - 0.9 K/uL 07/14/2024 2:53 PM CDT [facility] Eosinophils 2.6 % 07/14/2024 2:53 PM CDT [facility] Absolute Eosinophils 0.2 0.1 - 0.5 K/uL 07/14/2024 2:53 PM CDT [facility] Basophils 0.9 % 07/14/2024 2:53 PM CDT [facility] Absolute Basophils 0.1 0.0 - 0.1 K/uL 07/14/2024 2:53 PM T [facility] Immature Leukocytes 0.4 % 07/14/2024 2:53 PM T [facility] Immature Leukocytes Absolute 0.03 0.00 - 0.04 K/uL 07/14/2024 2:53 PM T [facility] Blood (Blood, Venous) 07/14/2024 2:09 PM CDT 07/14/2024 2:14 PM CDT Pina Méndez MD LAB BLOOD ORDERABLES [facility] [address] [place], [place] [id number] * (ABNORMAL) Comprehensive metabolic panel (07/14/2024 2:09 PM CDT) Only the most recent of4 resultswithin the time period is included. Total Protein 7.2 6.3 - 8.2 g/dL 07/14/2024 3:03 PM T [facility] Albumin, Serum 4.1 3.5 - 5.0 g/dL 07/14/2024 3:03 PM T [facility] Total Bilirubin 1.6(H) 0.1 - 1.0 mg/dL 07/14/2024 3:03 PM T [facility] AST 25 8 - 48 U/L 07/14/2024 3:03 PM T [facility] Alkaline Phosphatase 61 38 - 128 U/L 07/14/2024 3:03 PM [facility] ALT (SGPT) 20 0 - 49 U/L 07/14/2024 3:03 PM [facility] Sodium 139 135 - 145 mEq/L 07/14/2024 3:03 PM [facility] Potassium 4.3 3.5 - 5.1 mEq/L 07/14/2024 3:03 PM [facility] Chloride 105 98 - 107 mEq/L 07/14/2024 3:03 PM [facility] CO2 24 22 - 31 mmol/L 07/14/2024 3:03 PM [facility] BUN 17 5 - 25 mg/dL 07/14/2024 3:03 PM [facility] Creatinine 1.12 0.60 - 1.40 mg/dL 07/14/2024 3:03 PM [facility] Glucose 86 70 - 100 mg/dL 07/14/2024 3:03 PM [facility] Calcium, Total,S 9.6 8.4 - 10.2 mg/dL 07/14/2024 3:03 PM [facility] Anion Gap 10 4 - 13 07/14/2024 3:03 PM [facility] Comment: The anion gap is calculated with the following formula: AGAP = Na ? (Cl + CO2). Fasting? Unknown 07/14/2024 2:14 PM [facility] Blood (Blood, Venous) 07/14/2024 2:09 PM CDT 07/14/2024 2:14 PM T Pina Méndez MD LAB BLOOD ORDERABLES [facility] [address] [place] [address] * Prealbumin (07/10/2024 12:02 PM CDT) Prealbumin 23.7 17.6 - 36.0 mg/dL 07/10/2024 3:39 PM [facility] Blood (Blood, Venous) 07/10/2024 12:02 PM CDT 07/10/2024 2:05 PM CDT Vilma Neves MD LAB BLOOD ORDERABLES [facility] [address] [place] [address] * X-ray chest 1 view (06/15/2024 8:09 PM CDT) Only the most recent of2 resultswithin the time period is included. Anatomical Region Laterality Modality Body, Chest, Lung Digital Radiog ashutosh 06/15/2024 8:13 PM CDT Narrative 06/15/2024 9:00 PM CDT For Patients: ??As a result of the Cures Act, medical imaging exams and procedure reports are released immediately into your electronic medical record. ??You may view this report before your referring provider. ??If you have questions, please contact your health care provider. INDICATION: PICC placement. TECHNIQUE: Chest 1 view. COMPARISON: 06/15/2024. FINDINGS: Cardiovascular and mediastinum: ??Heart size and vasculature are normal in caliber and appearance. ??Interval placement of a left upper extremity PICC with the tip projecting over the superior cavoatrial junction. Lungs and pleural spaces: ??Lungs are clear. No pleural effusion, or pneumothorax. ?? Bones and soft tissues: ??Unremarkable for age. IMPRESSION: Interval placement of a left upper extremity PICC with the tip projecting over the superior cavoatrial junction. No evidence of an acute pulmonary process. Dictated by Robert Arreola MD @ 06/15/2024 9:00:06 PM (Electronically Signed) Procedure Note Robert Arreola MD - 06/15/2024 For Patients: As a result of the Cures Act, medical imagingexams and procedure reports are released immediately into your electronicmedical record. You may view this report before your referring provider.If you have questions, please contact your health care provider. INDICATION: PICC placement. TECHNIQUE: Chest 1 view. COMPARISON: 06/15/2024. FINDINGS: Cardiovascular and mediastinum: Heart size and vasculature are normal incaliber and appearance. Interval placement of a left upper extremity PICCwith the tip projecting over the superior cavoatrial junction. Lungs and pleural spaces: Lungs are clear. No pleural effusion, orpneumothorax. Bones and soft tissues: Unremarkable for age. IMPRESSION: Interval placement of a left upper extremity PICC with the tip projectingover the superior cavoatrial junction. No evidence of an acute pulmonaryprocess. Dictated by Robert Arreola MD @ 06/15/2024 9:00:06 PM (Electronically Signed) Pina Méndez MD IMG XR PROCEDURES * Vascular Line Placement (06/15/2024 6:00 PM CDT) Narrative Demetri gAuilar BSN - 06/15/2024 6:00 PM CDT Demetri Aguilar BSN ? 06/15/2024 ??7:11 PM Vascular Access Insertion ?? Procedure Information Procedure performed: PICC Reason for insertion: intravenous antibiotics Current IV access: peripheral IV Inserting Clinician: Internship Coordinator: DAX QUILES RN,CRNI Inserting RN: DEMETRI AGUILAR RN Preanesthetic Checklist Completed: patient identified, IV checked, site marked, risks and benefits discussed, surgical consent, monitors and equipment checked, pre-op evaluation, timeout performed and at patient's request Insertion Related Data Sterility preparation included the following: provider hand hygiene performed prior to catheter insertion, all 5 sterile barriers used (gloves, gown, cap, mask, large sterile drape) during catheter insertion and DuraPrep Insertion date/time: 06/15/2024 6:00 PM Catheter Fr Size: 3 Lot #: [id number] Number of lumens: single lumen Analgesia used: lidocaine spray Total Analgesia Used: 1 mL Technique: ultrasound guided and modified Seldinger Attempts: 3 Total: 55 (5 cm exposed catheter) cm Placement site: left cephalic Dressing: securement device, transparent dressing and CHG patch Ultrasound Guidance: yes Placement confirmation: chest x-ray Patient tolerated procedure: tolerated well, no immediate complications Post-procedure interventions: post-procedure education provided and patient verbalized understanding of education Comments: Gave patient written instructions with verbal review of such: ?? 1) [facility] handout Peripherally Inserted Central Line 2) [facility] handout Discharge Instructions: ??Caring for Your Peripherally Inserted Central Catheter ??3) Up-to-Date handout Care of PICC. ??Answered all pt's questions; pt states understanding. ??MeU Pina Méndez MD IN CLINIC/BEDSIDE PE RFORMABLES * Tissue Culture, Anaerobic (06/12/2024 5:05 PM CDT) Only the most recent of3 resultswithin the time period is included. Tissue Culture, Anaerobic No Anaerobes isolated in 7 days 06/19/2024 12:28 PM CDT [facility] Gram Stain No organisms seen. No WBC's seen. 06/13/2024 12:19 PM CDT [facility] Swab (Foot, Right) 06/12/2024 5:05 PM CDT Angel Coombs [facility] MICROBIOLOGY - G [facility] ORDERABLES [facility] [address] [place] [address] * (ABNORMAL) Tissue culture, aerobic (06/12/2024 5:04 PM CDT) Only the most recent of3 resultswithin the time period is included. Gram Stain No organisms seen. No WBC's seen. 06/13/2024 12:20 PM CDT [facility] Tissue Culture, Aerobic Staphylococcus aureus Many Use oxacillin interpretation to predict results for anti-staphylococc al beta-lactam antibiotics (except ceftaroline). (A) 06/15/2024 8:41 AM CDT [facility] Swab (Foot, Right) 06/12/2024 5:04 PM CDT Narrative Organism Antibiotic Method Susceptibility Staphylococcus aureus Clindamycin <=0.5 mcg/mL: Susceptible Staphylococcus aureus Erythromycin <=0.5 mcg/mL: Susceptible Staphylococcus aureus Oxacillin 0.5 mcg/mL: Susceptible Staphylococcus aureus Tetracycline <=4 mcg/mL: Susceptible Staphylococcus aureus Trimeth/Sulfa <=0.5/9.5 mcg/mL: Susceptible Angel Salma Coombs [facility] MICROBIOLOGY - G ENERAL ORDERABLES Performing Organization Address [facility]/ZIP Co de Phone Number [facility] [address] [place] [address] * Vancomycin (06/09/2024 11:38 AM CDT) Only the most recent of2 resultswithin the time period is included. Pathologist [facility] Vancomycin 22.9 mcg/mL 06/09/2024 2:13 PM CDT [facility] Comment: Target Therapeutic Levels: ? General ?? 10-15 mcg/mL ? Pneumonia 15-20 mcg/mL Last Dose Date 4 06/09/2024 2:14 PM CDT [facility] Last Dose Time 1010 AM 06/09/2024 2:14 PM CDT [facility] Blood (Blood, Venous) 06/09/2024 11:38 AM CDT 06/09/2024 11:49 AM CDT Shantell Lewis MD LAB BLOOD ORDERAB LES Performing Organization Address [facility] de Phone Number [facility] [address] [place] [address] * MRSA, by PCR, Nasal (06/09/2024 9:50 AM CDT) Pathologist [facility] MRSA PCR NASAL NOT DETECTED Not Detected 06/09/2024 11:20 AM CDT [facility] Comment: MRSA DNA is not detected. Testing performed on the [employer] GeneXpert utilizing the MRSA NxG assay (real-time polymerase chain reaction (PCR) for the amplification of MRSA with targets to mecA/mecC and SCCmec) Swab (Nasal) 06/09/2024 9:50 AM CDT 06/09/2024 10:07 AM CDT Shantell Lewis MD LAB MICROBIOLOGY - GENERAL ORDERABLES Performing Organization Address [facility]/State/ZIP Co de Phone Number [facility] [address] [place] [address] * Mini C-arm Fluoroscopy up to 1 hour (06/08/2024 3:14 PM CDT) Anatomical Region Laterality Modality Body Radio Fluoroscop y Impressions 06/08/2024 3:23 PM CDT FL C-ARM FLUOROSCOPY UP TO 1 HOUR 2 seconds of fluoroscopy time was used. Narrative 06/08/2024 3:23 PM CDT INDICATION: AMPUTATION Procedure Note James Leung MD - 06/08/2024 INDICATION: AMPUTATION IMPRESSION: FL C-ARM FLUOROSCOPY UP TO 1 HOUR 2 seconds of fluoroscopy time was used. Steve Lopez DPM IMG FLUOROSCOPY PROC EDURES * Pathology (06/08/2024 2:11 PM CDT) Tissue (Toe, Right) 06/08/2024 2:11 PM CDT Tissue (Foot, Right) 06/08/2024 2:38 PM CDT Narrative [facility] - 06/19/2024 2:53 PM CDT ? [facility] ? [address] ?[place] [address] ? Patient: ?KARIN FUNG ? Procedure: ? 06/08/2024 14:11 /Age/Sex: ??1955, 69 Y, M ?Received: ?06/09/2024 08:04 ?Accession #: ?? [id number] Billing: ?[id number] ? Patient Location: Discharged Ordered by: ?? STEVE LOPEZ DPM ? Attending: ? PINA MÉNDEZ MD ?SURGICAL PATHOLOGY FINAL REPORT COPY TO: STEVE LOPEZ DPM SPECIMEN: (A) TOES, NON-TRAUMATIC AMPUTATION, RIGHT 2ND TOE (B) BONE FRAGMENT(S), OTHER THAN PATHOLOGIC FRACTURE, RIGHT 2ND METATARSAL HEAD CLINICAL INFORMATION: Infection of right foot. Type 2 diabetes mellitus with diabetic neuropathy, without long goods drier current use of insulin. GROSS DESCRIPTION: The specimen is received in 2 parts. ??The labels match on the requisition form and bottles. Part 1) designated as part A, the specimen is labeled right second toe. ??Received in formalin is 1 white, pink portion of tissue and bone measuring 6.0 x 4.0 x 2.0 cm. ??The surgical margin is inked blue. ??There is a ramirez-pink open wound measuring 1.0 x 0.6 cm that is 1.8 cm to the margin. ??The specimen is submitted into decal on 06/09/2024. [employer] sections are submitted into cassettes A1-A2 on 06/18/2024. A1: Margin submitted as a shave A2: Ulcer with underlying bone Part 2) designated as part B, the specimen is labeled second metatarsal head. Received in formalin is 1 white, ramirez portion of bone measuring 2.8 x 1.8 x 1.5 cm. The surgical margin is inked blue. ??The specimen is submitted into decal on 06/09/2024. The surgical margin is submitted as a shave in cassette B1 on 06/18/2024. LAMONT CALLEJAS (ASCP) CM Patient's identification labels match on requisition form and bottle(s). MICROSCOPIC DESCRIPTION: A-B. ??Microscopic examination is performed. DIAGNOSIS: A. ??Bone and soft tissue, right second toe, amputation: - Ulceration, cellulitis, and underlying superficial acute osteomyelitis focally involving examined resection margin. - See comment. B. ??Bone, second metatarsal head, resection: - Examined bone margin negative for acute osteomyelitis. - Attached soft tissue with focal acute inflammation. - See comment. This case was shared with Dr. Barrios who agrees with the above diagnosis. COMMENT : Clinical correlation is recommended. <Sign Out Dr. Kaur> GINI REAVES MD (Electronically Signed) Reported: ??06/19/2024 ??14:53 ? Page 1 of 1 Steve Lopez DPM LAB PATHOLOGY ORDERA [facility] [address] [place] [address] * MRI foot right wo IV contrast (06/06/2024 12:23 PM CDT) Anatomical Region Laterality Modality Lower Extremities, Foot Right Magnetic Resonance 06/06/2024 12:2 8 PM CDT Narrative 06/06/2024 1:24 PM CDT For Patients: ??As a result of the 21st Century Cures Act, medical imaging exams and procedure reports are released immediately into your electronic medical record. ??You may view this report before your referring provider. ??If you have questions, please contact your health care provider. INDICATION: Wound at the base of the 2nd toe of the right foot. TECHNIQUE: Noncontrast MRI of the right foot. Axial, sagittal and coronal T1, proton density and STIR images were acquired. COMPARISON: Radiographs from 06/02/2024. FINDINGS: There is extensive soft tissue signal abnormality which reflects a combination of edema, cellulitis and myositis. Assessment for fluid collections is limited by noncontrast nature of this MRI. There is suspected fluid tracking within the soft tissues of the base of the 2nd toe at the proximal phalangeal level, within the 1st interspace between the metatarsal heads, into the interosseous musculature between the 1st and 2nd metatarsal shafts, within the extensor tendon sheath of the 2nd and 3rd toes to the midfoot level, plantar to the 3rd metatarsal shaft and also along the plantar and plantar medial aspects of the plantar aponeurosis of the medial forefoot to the midfoot level. Appearance is worrisome for extensive soft tissue abscess, myositis and tenosynovitis. There is no confluent effacement of fatty marrow specific for osteomyelitis. 1st MTP joint and interphalangeal joint degenerative changes are present. There is a small 1st MTP joint effusion. Small amount of 2nd MTP joint fluid dorsally. Small amount of 3rd MTP joint fluid dorsally. No significant TMT joint effusions. No excessive ankle or subtalar joint fluid. Subacute on chronic denervation changes are noted involving foot musculature. IMPRESSION: 1. Extensive soft tissue signal abnormality reflecting a combination of edema, cellulitis and myositis. 2. Assessment for fluid collections is limited by noncontrast nature of this MRI. Suspected extensive fluid tracking within the soft tissues of the base of the 2nd toe at the proximal phalangeal level, within the 1st interspace between the metatarsal heads, into the interosseous musculature between the 1st and 2nd metatarsal shafts, within the extensor tendon sheath of the 2nd and 3rd toes to the midfoot level, plantar to the 3rd metatarsal shaft and also along the plantar and plantar medial aspects of the plantar aponeurosis of the medial forefoot to the midfoot level. Appearance is worrisome for extensive soft tissue abscess, myositis and tenosynovitis. 3. No osteomyelitis. 4. Small amount of nonspecific fluid within the 1st through 3rd MTP joint spaces. Dictated by Harsha Taylor MD @ 06/06/2024 1:24:26 PM Dictated by: Harsha Taylor MD @ 06/06/2024 13:24:37 (Electronically Signed) Procedure Note Harsha Taylor MD - 06/06/2024 For Patients: As a result of the Cures Act, medical imagingexams and procedure reports are released immediately into your electronicmedical record. You may view this report before your referring provider.If you have questions, please contact your health care provider. INDICATION: Wound at the base of the 2nd toe of the right foot. TECHNIQUE: Noncontrast MRI of the right foot. Axial, sagittal and coronal T1, protondensity and STIR images were acquired. COMPARISON: Radiographs from 06/02/2024. FINDINGS: There is extensive soft tissue signal abnormality which reflects acombination of edema, cellulitis and myositis. Assessment for fluid collections is limited by noncontrast nature of thisMRI. There is suspected fluid tracking within the soft tissues of the baseof the 2nd toe at the proximal phalangeal level, within the 1st interspacebetween the metatarsal heads, into the interosseous musculature betweenthe 1st and 2nd metatarsal shafts, within the extensor tendon sheath ofthe 2nd and 3rd toes to the midfoot level, plantar to the 3rd metatarsalshaft and also along the plantar and plantar medial aspects of the plantaraponeurosis of the medial forefoot to the midfoot level. Appearance isworrisome for extensive soft tissue abscess, myositis and tenosynovitis. There is no confluent effacement of fatty marrow specific forosteomyelitis. 1st MTP joint and interphalangeal joint degenerative changes are present.There is a small 1st MTP joint effusion. Small amount of 2nd MTP jointfluid dorsally. Small amount of 3rd MTP joint fluid dorsally. Nosignificant TMT joint effusions. No excessive ankle or subtalar jointfluid. Subacute on chronic denervation changes are noted involving footmusculature. IMPRESSION: 1. Extensive soft tissue signal abnormality reflecting a combination ofedema, cellulitis and myositis. 2. Assessment for fluid collections is limited by noncontrast nature ofthis MRI. Suspected extensive fluid tracking within the soft tissues ofthe base of the 2nd toe at the proximal phalangeal level, within the 1stinterspace between the metatarsal heads, into the interosseous musculaturebetween the 1st and 2nd metatarsal shafts, within the extensor tendonsheath of the 2nd and 3rd toes to the midfoot level, plantar to the 3rdmetatarsal shaft and also along the plantar and plantar medial aspects ofthe plantar aponeurosis of the medial forefoot to the midfoot level.Appearance is worrisome for extensive soft tissue abscess, myositis andtenosynovitis. 3. No osteomyelitis. 4. Small amount of nonspecific fluid within the 1st through 3rd MTP jointspaces. Dictated by Harsha Taylor MD @ 06/06/2024 1:24:26 PM Dictated by: Harsha Taylor MD @ 06/06/2024 13:24:37 (Electronically Signed) Lazaro Chin APRN, CNP IMG MRI [place] OCEDURES * Reflexed Manual Diff (06/06/2024 10:00 AM CDT) Manual Differential PERFORMED 06/06/2024 10:30 AM CDT [facility] Total Counted 100 06/06/2024 10:29 AM CDT [facility] 06/06/2024 10:0 0 AM CDT 06/06/2024 10:04 AM CDT Lazaro Chin APRN, CNP LAB BLOOD ORDERABLES [facility] [address] [place] [address] * (ABNORMAL) Procalcitonin (06/06/2024 10:00 AM CDT) Procalcitonin 1.34(H) 0.00 - 0.07 ng/mL 06/06/2024 11:18 AM CDT [facility] Comment: The results from this test should be used in conjunction with clinical signs and symptoms of infection and other diagnostic evidence. The safety and performance of Procalcitonin-guided therapy for individuals younger than 18 years, women, immunocompromised individuals or those on immunomodulatory agents, was not formally analyzed in the supportive clinical trials. Decisions regarding antibiotic therapy should not be based solely on Procalcitonin concentrations. Heterophilic antibodies in serum or plasma samples may cause interference in immunoassays. ??Exposure to animal antigens, either in the environment or as part of treatment or imaging procedures, may have circulating anti-animal antibodies present. These antibodies may interfere with the assay reagents to produce unreliable results. Results which are inconsistent with clinical observations indicate the need for additional testing. Blood (Blood, Venous) 06/06/2024 10:00 AM CDT 06/06/2024 10:04 AM CDT Lazaro Chin APRN, CNP LAB BLOOD ORDERABLES Performing Organization Address [facility] Co de Phone Number [facility] [address] [place] [phone] * Morphology (06/06/2024 10:00 AM CDT) Slide Review PERFORMED 06/06/2024 10:30 AM CDT [facility] RBC Morphology NORMAL 06/06/2024 10:30 AM CDT [facility] PLT Morphology ADEQUATE 06/06/2024 10:30 AM CDT [facility] 06/06/2024 10:0 0 AM CDT 06/06/2024 10:04 AM CDT Lazaro Chin APRN, CNP LAB BODY F LUIDS AND STOOLS ORDERABLES Performing Organization Address [facility] de Phone Number [facility] [address] [place] [phone] * (ABNORMAL) APTT (06/06/2024 10:00 AM CDT) aPTT 40(H) 28 - 37 seconds 06/06/2024 10:17 AM CDT [facility] Comment: Therapeutic range for unfractionated heparin = 50-90 seconds Blood (Blood, Venous) 06/06/2024 10:00 AM CDT 06/06/2024 10:04 AM CDT Lazaro Chin APRN, CNP LAB BLOOD ORDERABLES Performing Organization Address [facility] Co de Phone Number [facility] [address] [place] [phone] * (ABNORMAL) Protime-INR (06/06/2024 10:00 AM CDT) Protime 19.0(H) 9.4 - 12.5 seconds 06/06/2024 10:17 AM CDT [facility] INR 1.6 06/06/2024 10:17 AM CDT [facility] Comment: Suggested INR Therapeutic Ranges* Intensity ?Standard ?Higher ? 2.0-3.0 ? 2.5-3.5 *Target INR should be individualized. Occasionally,INR range 3.0-4.5 may be appropriate. Higher intensity INR: Mechanical heart valve, etc. Blood (Blood, Venous) 06/06/2024 10:00 AM CDT 06/06/2024 10:04 AM CDT Lazaro Chin APRN, CNP LAB BLOOD ORDERABLES Performing Organization Address [facility] de Phone Number [facility] [address] [place] [phone] * (ABNORMAL) C-reactive protein (06/06/2024 10:00 AM CDT) Pathologist [facility] CRP >320.0(H) 0.0 - 4.9 mg/L 06/06/2024 10:32 AM CDT [facility] Blood (Blood, Venous) 06/06/2024 10:00 AM CDT 06/06/2024 10:04 AM CDT Narrative [facility] - 06/06/2024 10:32 AM CDT Called to Gely Jay, BUN 78, RBA , [phone], 10:27 06/06/2024 [id number] Lazaro Chin APRN, CNP LAB BLOOD ORDERABLES Performing Organization Address [facility] Co de Phone Number [facility] [address] [place] [phone] * (ABNORMAL) Magnesium (06/06/2024 10:00 AM CDT) Magnesium 2.5(H) 1.6 - 2.3 mg/dL 06/06/2024 10:27 AM CDT [facility] Blood (Blood, Venous) 06/06/2024 10:00 AM CDT 06/06/2024 10:04 AM CDT Narrative [facility] - 06/06/2024 10:27 AM CDT Called to Gely Jay, BUN 78, RBA , [phone], 10:27 06/06/2024 [id number] Lazaro Chin APRN, CNP LAB BLOOD ORDERABLES Performing Organization Address [facility] Co de Phone Number [facility] [address] [place] [phone] * Lactate, plasma (06/06/2024 10:00 AM CDT) Pathologist [facility] Lactate 1.3 0.5 - 2.0 mmol/L 06/06/2024 10:20 AM CDT [facility] Blood (Blood, Venous) 06/06/2024 10:00 AM CDT 06/06/2024 10:04 AM CDT Lazaro Chin APRN, CNP LAB BLOOD ORDERABLES Performing Organization Address [facility] Co de Phone Number [facility] [address] [place] [phone] * (ABNORMAL) Hemoglobin A1c (06/06/2024 10:00 AM CDT) Hemoglobin A1C 9.0(H) 4.0 - 5.6 % A1C 06/08/2024 2:29 AM CDT [facility] Comment: Reference Range 4.0-5.6% is for non- adults >=18 yrs <5.6% ? Non-Diabetic 5.7-6.4% ??Increased risk of Diabetes >=6.5% ?Indicative of Diabetes <7.0% ? ADA goal for glycemic control Methodology may not detect all hemoglobin variants which can affect A1c results. Method certified by National Glycohemoglobin Standardization Program. Blood (Blood, Venous) 06/06/2024 10:00 AM CDT 06/06/2024 10:04 AM CDT Lazaro Chin APRN, CNP LAB BLOOD ORDERABLES Performing Organization Address [facility] Phone Number [facility] [address] [place], [place] [phone] * Blood gas, venous (06/06/2024 10:00 AM CDT) pH, Jorge 7.37 7.32 - 7.43 06/06/2024 10:14 AM CDT [facility] pCO2, Jorge 44 41 - 54 mm Hg 06/06/2024 10:14 AM CDT [facility] HCO3, Venous 25.4 22.0 - 29.0 mmol/L 06/06/2024 10:14 AM CDT [facility] Base Excess/Deficit Venous -0.2 -2.0 - 3.0 mmol/L 06/06/2024 10:14 AM CDT [facility] Blood (Blood, Venous) 06/06/2024 10:00 AM CDT 06/06/2024 10:04 AM CDT Lazaro Chin APRN, CNP LAB BLOOD ORDERABLES Performing Organization Address [facility] Phone Number [facility] [address] [place], [place] [phone] * Covid-19, Mcelroy ID Now, PCR symptomatic (06/06/2024 9:55 AM CDT) Covid Source Nasal 06/06/2024 10:34 AM CDT [facility] Covid-19, ID Now PCR NEGATIVE Negative 06/06/2024 10:34 AM CDT [facility] Comment: Negative results should be treated as presumptive and, if inconsistent with clinical signs and symptoms or necessary for patient management, should be tested with an alternative molecular assay. Testing was performed using the Mcelroy ID NOW COVID-19 2.0 assay. Swab (Nasal) 06/06/2024 9:55 AM CDT 06/06/2024 10:34 AM CDT Lazaro Trejo Giuseppe SHAH CNP LAB [facility] ORDERABLES [facility] [address] [place] [address] * XR foot right 3+ views (06/02/2024 6:53 PM CDT) Anatomical Region Laterality Modality Lower Extremities, Foot Right Digital Radiography Impressions 06/03/2024 8:07 AM CDT Soft tissue swelling. ??No radiographic evidence of osteomyelitis. Narrative 06/03/2024 8:07 AM CDT INDICATION: Diabetic foot ulcer, swelling COMPARISON: None FINDINGS: Mild soft tissue swelling over the distal phalanx 1st toe. ??Mild degenerative change 1st MTP and 1st IP joint. ??No acute fracture. ??No periosteal reaction or cortical destruction to suggest osteomyelitis. ??Scattered vascular calcifications. Procedure Note James Leung MD - 06/03/2024 INDICATION: Diabetic foot ulcer, swelling COMPARISON: None FINDINGS: Mild soft tissue swelling over the distal phalanx 1st toe. Milddegenerative change 1st MTP and 1st IP joint. No acute fracture. Noperiosteal reaction or cortical destruction to suggest osteomyelitis.Scattered vascular calcifications. IMPRESSION: Soft tissue swelling. No radiographic evidence of osteomyelitis. Derrell Monreal PA-C IMG XR PROCEDURES from Last 3 Months Advance Directives For more information, please contact: [phone] * Full Code (Latest Code Status on File) Date Activated Date Inactivated Comments 06/12/2024 5:46 PM 06/17/2024 5:03 PM * Full Code Date Activated Date Inactivated Comments 06/06/2024 1:36 PM 06/12/2024 5:46 PM Care Teams [employer] Relationship Specialty Start Date End Date Thu Bhagat PA-C [address] [place] [phone] PCP - General 11/26/22
--- OUTSIDE RECORDS SUMMARY | 2024-08-21 10:19 | XMS_ITS | Encounter Summary ---
Author Organization [facility] er Address [address] [place] [address] Care Team Providers Care Sound System Installer Name Role Phone Thu Bhagat PA-C Primary Care Provider Reason for Visit * Reason Comments HBO * Consultation (Routine) - Authorized Specialty Diagnoses / Procedures Referred By Contac t Referred To Contact Wound Care Diagnoses Type 2 diabetes mellitus with foot ulcer Procedures Wound Care HBOT Thu Bhagat PA-C [address] [place] [phone] [facility] Wound Care [address] [place] [address] Referral ID Status Reason Start Date Expiration Date V isits Requested Visits Authorized [id number] Authorized 07/02/2024 10/11/2024 99 99 Encounter Details Date Type Department Care Team (Late st Contact Info) Description 08/14/2024 8:30 AM CDT Office Visit [facility] Wound Care [address] [place] [address] [place] [address] [place] [phone] Diabetic ulcer of right midfoot associated with type 2 diabetes mellitus, 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 Never 06/06/2024 [facility] Utilities Answer Date Recorded In the past 12 months has e [employer], gas, oil, or water company threatened to [...] week 06/06/2024 How often do you attend [facility] or denominational services? More than 4 times per year 06/06/2024 Do you belong to any clubs o r organizations such as mu-ism groups, unions, fraternal or athletic groups, or [...] Recorded Patient Health Questionnaire-2 Score 0 06/06/2024 [facility] - Occupational Stress Questionnaire Answer Date Recorded [...] any time in the past 12 m [facility], were you homeless or living in a penitentiary (including now)? No 06/06/2024 Interpersonal Safety Questionnaire Answer Date Recorded How often does anyone, inclu ding family and friends, physically hurt you? Never 06/06/2024 How often does anyone, tyrell kerns family and friends, insult or talk down to you? Never 06/06/2024 How often does anyone, tyrell kerns family and friends, threaten you with harm? Never 06/06/2024 How often does anyone, tyrell kerns family and friends, threaten you with harm? Never 06/06/2024 Sex and Gender Information Value Date Recorded Sex Assigned at Not on file Gender Identity Not on file Sexual Orientation Not on file documented as of this encounter Last Filed Vital Signs Vital Sign Reading Time Taken Comments Blood Pressure 127/88 08/14/2024 10:45 AM CDT Pulse 86 08/14/2024 10:45 AM CDT Temperature 36.2 ??C (97.1 ??F) 08/14/2024 10:45 AM C DT Respiratory Rate 18 08/14/2024 10:45 AM CDT Oxygen Saturation - - Inhaled Oxygen Concentration - - Weight - - Height - - Body Mass Index - - documented in this encounter Progress Notes * Karley Dickens LPN - 08/14/2024 8:30 AM CDT HYPERBARIC OXYGEN THERAPY TREATMENT # 24 2.0 Atmospheres Absolute for 90 minutes without air-breaks Chamber: Chamber Number: [id number] Patient presented wearing off loading device to right foot, ordered dressings in place. Vitals: 08/14/24 1045 BP: 127/88 Pulse: 86 Resp: 18 Temp: 36.2 ??C (97.1 ??F) Glucose Readings Pre Capillary Blood Glucose: 162 Post Capillary Blood Glucose: 175 Blood Glucose Reference Range: 65-95 If patient diabetic, was the Glycemia Interventions Protocol ordered by the physician? : Yes (Boost) Hyperbaric Monitor Indications: Diabetic Kenney Grade 3 or Higher Treatment Start Time - Compression Begins at 1 ZAID: 0836 Rate Set PSI / Min: 2 Pressure Reached: 0845 ZAID: 2.0 Decompression Begins: 1015 Treatment End Time to 1 ZAID: 1024 Total Treatment Time: 108 Symptoms Noted During Treatment: None Hyperbaric Pre-Instpection Hyperbaric Pre-Inspection Consent Obtained: Yes Is there a TCOM ordered for the patient?: Completed Patient voided/noonan secured and emptied: Yes When did the patient last eat?: 0715 Last dose of injectable or oral hypoglycemic agent: 0645 Ostomy pouch emptied and vented (if applicable): N/A All implantable devices assessed, documented, and approved: N/A Intravenous access site secured and placed: N/A Valuables secured: Yes Linens are cotton: Yes Cotton Gown: Yes Glasses Removed: Yes Jewelery Removed: Yes Makeup Removed: Yes Hair Care Products Removed: Yes Wigs or Hair Pieces Removed: Yes Nail [place] cured greater than 10 hours: Yes Personal oil-based products/skin lotions/body lotions: Yes Dentures Removed: N/A Hearing Aids Removed: N/A Prosthetics Removed: N/A Casting Material cured greater than 10 hours: N/A Titanium Eyewear Removed: Yes Battery operated devices (external) Removed: Yes Smoking and tobacco materials removed: Yes Books/newspapers/magazines/loose paper removed: Yes Heating patches and chemical warmers removed: Yes Patient demonstrates correct use of air break device (if applicable): Yes Patient concerns have been addressed: Yes Patient ground bracelet on and cord attached to chamber: Yes Ear Evaluation Ear Evaluation Left Ear Clear: Yes (per provider) Right Ear Clear: Yes (per provider) Left Tympanic Membrane Visible and Intact: Yes (per provider) Right Tympanic Membrane Visible and Intact: Yes (per provider) Left Color: Iridescent (per provider) Right Color: Iridescent (per provider) Left Pressure Equalization Tubes in Place: No (per provider) Right Pressure Equalization Tubes in Place: No (per provider) Left Irrigated: No (per provider) Right Irrigated: No (per provider) Associated attestation - Vilma Neves MD - 08/14/2024 11:54 AM CDT 69-year-old male with Kenney 3 DFU right foot doing well with oxygen adjuvant therapy. Continue oxygen adjuvant therapy. documented in this encounter Plan of Treatment Upcoming Encounters Date Type Department Care Team (Late st Contact Info) Description 08/24/2024 8:30 AM CHIEF CLOTH FINISHING RANGE OPERATOR Office Visit [facility] [address] [place] [address] 08/24/2024 11:30 AM CHIEF CLOTH FINISHING RANGE OPERATOR Office Visit Podiatry [address] [place] [address] Angel Coombs, DPM [address] [place] [phone] 08/25/2024 8:30 AM CHIEF CLOTH FINISHING RANGE OPERATOR Office Visit [facility] Wound Care [address] [place] [address] 08/26/2024 8:30 AM CHIEF CLOTH FINISHING RANGE OPERATOR Office Visit [facility] Wound Care [address] [place] [address] 08/27/2024 8:30 AM CHIEF CLOTH FINISHING RANGE OPERATOR Office Visit [facility] Wound Care [facility] [address] [place] [address] 08/27/2024 11:00 AM CHIEF CLOTH FINISHING RANGE OPERATOR Office Visit [facility] Wound Care [address] [place] [address] Vilma Neves MD [address] [place] [phone] 08/28/2024 8:30 AM CHIEF CLOTH FINISHING RANGE OPERATOR Office Visit [facility] Wound Care [address] [place] [address] 08/31/2024 8:30 AM CHIEF CLOTH FINISHING RANGE OPERATOR Office Visit [facility] Wound Care [address] [place] [address] 09/01/2024 8:30 AM CHIEF CLOTH FINISHING RANGE OPERATOR Office Visit [facility]ound Care [address] [place] [address] 09/02/2024 8:30 AM CHIEF CLOTH FINISHING RANGE OPERATOR Office Visit [facility] Care [address] [place] [address] 09/03/2024 8:30 AM CHIEF CLOTH FINISHING RANGE OPERATOR Office Visit [facility] Wound Care [address] [place] [address] 09/03/2024 11:00 AM CHIEF CLOTH FINISHING RANGE OPERATOR Office Visit [facility] Wound Care [address] [place] [address] Vilma Neves MD [address] [place] [phone] 09/03/2024 11:00 AM CHIEF CLOTH FINISHING RANGE OPERATOR Office Visit [facility] Infectious Disease [address] [place] [address] Amairani Sigala MD [address] [place] [phone] 09/04/2024 8:30 AM CHIEF CLOTH FINISHING RANGE OPERATOR Office Visit [facility] [address] [place] [address] 09/07/2024 8:30 AM CHIEF CLOTH FINISHING RANGE OPERATOR Office Visit [facility] [address] [place] [address] 09/08/2024 8:30 AM CHIEF CLOTH FINISHING RANGE OPERATOR Office Visit [facility] W[facility] [address] [place] [address] 09/09/2024 8:30 AM CHIEF CLOTH FINISHING RANGE OPERATOR Office Visit [facility] Wound Care [address] [place] [address] 09/10/2024 8:30 AM CHIEF CLOTH FINISHING RANGE OPERATOR Office Visit [facility] Wound Care [address] [place] [phone] 09/10/2024 11:20 AM CHIEF CLOTH FINISHING RANGE OPERATOR Office Visit [facility] [address] [place] [address] Vilma Neves MD [address] [place] [phone] 09/11/2024 8:30 AM CHIEF CLOTH FINISHING RANGE OPERATOR Office Visit [facility] Wound Care [address] [place] [address] 09/14/2024 8:30 AM CHIEF CLOTH FINISHING RANGE OPERATOR Office Visit [facility] [address] [place] [address] 09/15/2024 8:30 AM CHIEF CLOTH FINISHING RANGE OPERATOR Office Visit [facility] W[facility] [address] [place] [address] documented as of this encounter Procedures Procedure Name Priority Date/Time Associated Diagnosis Comments POCT PRECISION GLUCOSE Routine 08/14/2024 10:31 AM CDT POCT PRECISION GLUCOSE Routine 08/14/2024 8:19 AM CDT documented in this encounter Results * (ABNORMAL) POCT Precision glucose (08/14/2024 10:31 AM CDT) Glucose Blood, POC 175(H) 70 - 100 mg/dL 08/14/2024 10:32 AM CDT [facility] Comment: Meter ID: [id number] Capillary whole blood specimens should not be used in patients receiving intensive medical intervention/therapy because of the potential for pre-analytical collection error and specifically in patients with decreased peripheral blood flow, as it may not truly reflect the patient? s true physiological state. Examples include, but are not limited to, severe hypotension, shock, hyperosmolar-hyperglycemia (with or without ketosis), and severe dehydration. 08/14/2024 10:3 1 AM CDT 08/14/2024 10:32 AM CDT Vilma Neves MD LAB POINT OF CARE TE ST DOCKED DEVICE UNSOLICITED RESULTS [facility] [address] [place] [address] * (ABNORMAL) POCT Precision glucose (08/14/2024 8:19 AM CDT) Glucose Blood, POC 162(H) 70 - 100 mg/dL 08/15/2024 9:42 PM CDT [facility] Comment: Meter ID: [id number] Capillary whole blood specimens should not be used in patients receiving intensive medical intervention/therapy because of the potential for pre-analytical collection error and specifically in patients with decreased peripheral blood flow, as it may not truly reflect the patient? s true physiological state. Examples include, but are not limited to, severe hypotension, shock, hyperosmolar-hyperglycemia (with or without ketosis), and severe dehydration. 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
--- OUTSIDE RECORDS SUMMARY | 2024-08-21 10:19 | XMS_ITS | Encounter Summary ---
Author Organization [facility] er Address [address] [place] [address] Care Team Providers Care Learning And Development Director Name Role Phone Thu Bhagat PA-C Primary Care Provider Reason for Visit * Reason Comments HBO * Consultation (Routine) - Authorized Specialty Diagnoses / Procedures Referred By Contac t Referred To Contact Wound Care Diagnoses Type 2 diabetes mellitus with foot ulcer Procedures Wound Care HBOT Thu Bhagat PA-C [address] [place] [phone] [facility] Wound Care [address] [place] [address] Referral ID Status Reason Start Date Expiration Date V isits Requested Visits Authorized [id number] Authorized 07/02/2024 10/11/2024 99 99 Encounter Details Date Type Department Care Team (Late st Contact Info) Description 08/17/2024 8:30 AM CDT Office Visit [facility] Wound Care [address] [place] [phone] [place] [address] [place] [phone] Diabetic ulcer of right midfoot associated [...] your doctor or pharmacy? Never 06/06/2024 [facility] Utilities Answer Date Recorded In the past 12 months has e [employer], gas, oil, or water company threatened to [...] week 06/06/2024 How often do you attend [facility] or gnosticist services? More than 4 times per year 06/06/2024 Do you belong to any clubs o r organizations such as episcopal groups, unions, fraternal or athletic groups, or [...] Recorded Patient Health Questionnaire-2 Score 0 06/06/2024 [facility] - Occupational Stress Questionnaire Answer Date [...] any time in the past [address] [facility], were you homeless or living in a long term (including now)? No 06/06/2024 Interpersonal Safety Questionnaire [...] Sign Reading Time Taken Comments Blood Pressure 120/83 08/17/2024 11:00 AM CDT Pulse 76 08/17/2024 11:00 AM CDT Temperature 35.9 ??C (96.7 ??F) 08/17/2024 11:00 AM C DT Respiratory Rate 18 08/17/2024 11:00 AM CDT Oxygen Saturation - - Inhaled Oxygen Concentration - - Weight - - Height - - Body Mass Index - - documented in this encounter Progress Notes * Karley Dickens, RAMÓN - 08/17/2024 8:30 AM CDT HYPERBARIC OXYGEN THERAPY TREATMENT # 26 2.0 Atmospheres Absolute for 90 minutes without air-breaks Chamber: Chamber Number: [id number] Patient presented wearing off loading device to right foot, ordered dressings in place. Vitals: 08/17/24 1100 BP: 120/83 Pulse: 76 Resp: 18 Temp: (!) 35.9 ??C (96.7 ??F) Glucose Readings Pre Capillary Blood Glucose: 163 Post Capillary Blood Glucose: 209 Blood Glucose Reference Range: 65-95 If patient diabetic, was the Glycemia Interventions Protocol ordered by the physician? : Yes (Boost) Hyperbaric Monitor Indications: Diabetic Kenney Grade 3 or Higher Treatment Start Time - Compression Begins at 1 ZAID: 0859 Rate Set PSI / Min: 2 Pressure Reached: 0907 ZAID: 2.0 Decompression Begins: 1037 Treatment End Time to 1 ZAID: 1046 Total Treatment Time: 107 Symptoms Noted During Treatment: None Hyperbaric Pre-Instpection Hyperbaric Pre-Inspection Consent Obtained: Yes Is there a TCOM ordered for the patient?: Completed Patient voided/noonan secured and emptied: Yes When did the patient last eat?: 0700 Last dose of injectable or oral hypoglycemic agent: 0645 Ostomy pouch emptied and vented (if applicable): N/A All implantable devices assessed, documented, and approved: N/A Intravenous access site secured and placed: Yes Valuables secured: Yes Linens are cotton: Yes Cotton Gown: Yes Glasses Removed: Yes Jewelery Removed: Yes Makeup Removed: Yes Hair Care Products Removed: Yes Wigs or Hair Pieces Removed: Yes Nail ukrainian cured greater than 10 hours: Yes Personal [...] provider) Left Pressure Equalization Tubes in Place: N / A (per provider) Right Pressure Equalization Tubes in Place: N / A (per provider) Left Irrigated: No (per provider) Right Irrigated: No (per provider) Associated attestation - Vilma Neves MD - 08/17/2024 11:46 AM CDT HBOT Physician Documentation: Wound Examined? No. Please see weekly wound visit note for detailed wound findings for this corresponding week Patient Cleared for HBO? Yes Continue HBO? Yes TEED Score: Pre-Treatment 0 Post Treatment 0 PE Tubes? No Myringotomy Performed? No Breath Sounds: CTAB Other Notes: Recommend continuing with HBOT as wound is progressing well as noted in wound visit note each week documented in this encounter Plan of Treatment Upcoming Encounters Date Type Department Care Team (Late st Contact Info) Description 08/24/2024 8:30 AM PEDIATRIC CARE COORDINATOR Office Visit [facility] Wound Care [address] [place] [address] 08/24/2024 11:30 AM PEDIATRIC CARE COORDINATOR Office Visit [facility] [address] [place] [address] Angel Coombs, DPHang [address] [place] [phone] 08/25/2024 8:30 AM PEDIATRIC CARE COORDINATOR Office Visit [facility] Wound Care [address] [place] [address] 08/26/2024 8:30 AM PEDIATRIC CARE COORDINATOR Office Visit [facility] Wound Care [address] [place] [address] 08/27/2024 8:30 AM PEDIATRIC CARE COORDINATOR Office Visit [facility] Wound Care [address] [place] [address] 08/27/2024 11:00 AM PEDIATRIC CARE COORDINATOR Office Visit [facility] Wound Care [address] [place] [address] Vilma Neves MD [address] [place] [phone] 08/28/2024 8:30 AM PEDIATRIC CARE COORDINATOR Office Visit [facility] Wound Care [address] [place] [address] 08/31/2024 8:30 AM PEDIATRIC CARE COORDINATOR Office Visit [facility] Wound Care [address] [place] [address] 09/01/2024 8:30 AM PEDIATRIC CARE COORDINATOR Office Visit [facility] Wound Care [facility] [address] [place] [address] 09/02/2024 8:30 AM PEDIATRIC CARE COORDINATOR Office Visit [facility] Wound Care [address] [place] [address] 09/03/2024 8:30 AM PEDIATRIC CARE COORDINATOR Office Visit [facility] Wound Care [address] [place] [address] 09/03/2024 11:00 AM PEDIATRIC CARE COORDINATOR Office Visit [facility] Wound Care [address] [place] [address] Vilma Neves MD [address] [place] [phone] 09/03/2024 11:00 AM PEDIATRIC CARE COORDINATOR Office Visit [facility] Infectious Disease [address] [place] [address] Amairani Sigala MD [address] [place] [phone] 09/04/2024 8:30 AM PEDIATRIC CARE COORDINATOR Office Visit [facility] Wound Care [address] [place] [address] 09/07/2024 8:30 AM PEDIATRIC CARE COORDINATOR Office Visit [facility] Wound Care [address] [place] [address] 09/08/2024 8:30 AM PEDIATRIC CARE COORDINATOR Office Visit [facility] Wound Care [address] [place] [address] 09/09/2024 8:30 AM PEDIATRIC CARE COORDINATOR Office Visit [facility] Wound Care [address] [place] [address]87[address] 09/10/2024 8:30 AM PEDIATRIC CARE COORDINATOR Office Visit [facility] Wound Care [address] [place] [phone] 09/10/2024 11:20 AM PEDIATRIC CARE COORDINATOR Office Visit [facility] Wound Care [address] [place] [address] Vilma Neves MD [address] [place] [phone] 09/11/2024 8:30 AM PEDIATRIC CARE COORDINATOR Office Visit [facility] Wound Care [address] [place] [address] 09/14/2024 8:30 AM PEDIATRIC CARE COORDINATOR Office Visit [facility] Wound Care [address] [place] [phone] 09/15/2024 8:30 AM PEDIATRIC CARE COORDINATOR Office Visit [facility] W[facility] Care [address] [place] [phone] documented as of this encounter Procedures Procedure Name Priority Date/Time Associated Diagnosis Comments POCT PRECISION GLUCOSE Routine 08/17/2024 10:54 AM CDT POCT PRECISION GLUCOSE Routine 08/17/2024 8:44 AM CDT documented in this encounter Results * (ABNORMAL) POCT Precision glucose (08/17/2024 10:54 AM CDT) Glucose Blood, POC 209(H) 70 - 100 mg/dL 08/17/2024 10:54 AM CDT [facility] Comment: Meter ID: [id number] Capillary whole blood specimens should not be used in patients receiving intensive medical intervention/therapy because of the potential for pre-analytical collection error and specifically in patients with decreased peripheral blood flow, as it may not truly reflect the patient? s true physiological state. Examples include, but are not limited to, severe hypotension, shock, hyperosmolar-hyperglycemia (with or without ketosis), and severe dehydration. 08/17/2024 10:5 4 AM CDT 08/17/2024 10:54 AM CDT Vilma Neves MD LAB POINT OF CARE TE ST DOCKED DEVICE UNSOLICITED RESULTS [facility] [address] [place] [phone] * (ABNORMAL) POCT Precision glucose (08/17/2024 8:44 AM CDT) Glucose Blood, POC 163(H) 70 - 100 mg/dL 08/17/2024 8:44 AM CDT [facility] Comment: Meter ID: [id number] Capillary whole blood specimens should not be used in patients receiving intensive medical intervention/therapy because of the potential for pre-analytical collection error and specifically in patients with decreased peripheral blood flow, as it may not truly reflect the patient? s true physiological state. Examples include, but are not limited to, severe hypotension, shock, hyperosmolar-hyperglycemia (with or without ketosis), and severe dehydration. 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
--- OUTSIDE RECORDS SUMMARY | 2024-08-21 10:19 | XMS_ITS | Encounter Summary ---
Author Organization [facility] er Address [address] [place] [id number] Care Team Providers Care Risk Management Consultant Name Role Phone Thu Bhagat PA-C Primary Care Provider [phone] Reason for Visit * Reason Comments HBO * Consultation (Routine) - Authorized Specialty Diagnoses / Procedures Referred By Contac t Referred To Contact Wound Care Diagnoses Type 2 diabetes mellitus with foot ulcer Procedures Wound Care HBOT Thu Bhagat PA-C [address] [place] [address] [facility] [address] [place] [address] Referral ID Status Reason Start Date Expiration Date V isits Requested Visits Authorized [id number] Authorized 07/02/2024 10/11/2024 99 99 Encounter Details Date Type Department Care Team (Late st Contact Info) Description 08/12/2024 8:30 AM CDT Office Visit [facility] [address] [place] [address] [place] [address] [place] [phone] Diabetic ulcer of right midfoot associated with type 2 diabetes mellitus, 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 Never 06/06/2024 [facility] Utilities Answer Date Recorded In the past 12 months has e [employer], gas, oil, or water [employer] threatened to shut off services in your [...] week 06/06/2024 How often do you attend [facility] or cheondoism services? More than 4 times per year 06/06/2024 Do you belong to any clubs o r organizations such as islam groups, unions, fraternal or athletic groups, or [...] Recorded Patient Health Questionnaire-2 Score 0 06/06/2024 [facility] - Occupational Stress [...] any time in the past 12 m onths, were you homeless or living in a senior living (including now)? No 06/06/2024 Interpersonal Safety Questionnaire [...] Sign Reading Time Taken Comments Blood Pressure 140/99 08/12/2024 10:45 AM CDT Pulse 88 08/12/2024 10:45 AM CDT Temperature 36.4 ??C (97.5 ??F) 08/12/2024 10:45 AM C DT Respiratory Rate 18 08/12/2024 10:45 AM CDT Oxygen Saturation - - Inhaled Oxygen Concentration - - Weight - - Height - - Body Mass Index - - documented in this encounter Progress Notes * Wanda Marquez RN - 08/12/2024 8:30 AM CDT HYPERBARIC OXYGEN THERAPY TREATMENT # 22 2.0 Atmospheres Absolute for 90 minutes without air-breaks Chamber: Chamber Number: [id number] Patient presented wearing off loading device to right foot, ordered dressings in place. Vitals: 08/12/24 1045 BP: (!) 140/99 Pulse: 88 Resp: 18 Temp: 36.4 ??C (97.5 ??F) Glucose Readings Pre Capillary Blood Glucose: 178 Post Capillary Blood Glucose: 113 Blood Glucose Reference Range: 65-95 If patient diabetic, was the Glycemia Interventions Protocol ordered by the physician? : Yes Hyperbaric Monitor Indications: Diabetic Kenney Grade 3 or Higher Treatment Start Time - Compression Begins at 1 ZAID: 0845 Rate Set PSI / Min: 1.5 Pressure Reached: 0855 ZAID: 2.0 Decompression Begins: 1025 Treatment End Time to 1 ZAID: 1034 Total Treatment Time: 109 Symptoms Noted During Treatment: None Hyperbaric Pre-Instpection Hyperbaric Pre-Inspection Consent Obtained: Yes Is there a TCOM ordered for the patient?: Completed Patient voided/noonan secured and emptied: Yes When did the patient last eat?: 729 Last dose of injectable or oral hypoglycemic agent: 714 Ostomy pouch emptied and vented (if applicable): N/A All implantable devices assessed, documented, and approved: N/A Intravenous access site secured and placed: N/A Valuables secured: Yes Linens are cotton: Yes Cotton Gown: Yes Glasses Removed: Yes Jewelery Removed: Yes Makeup Removed: Yes Hair Care Products Removed: Yes Wigs or Hair Pieces Removed: Yes Nail luxembourger cured greater than 10 hours: Yes Personal [...] Associated attestation - Vilma Neves MD - 08/12/2024 1:41 PM CDT 69-year-old male with right foot DFU Kenney 3 showing clinical improvement with oxygen therapy offloading glycemic control protein utilization and increase in oral intake, antibiotics, weekly debridements and advanced dressings such as antimicrobial collagen bones and xenograft and using Kerecis. documented in this encounter Plan of Treatment Upcoming Encounters Date Type Department Care Team (Late st Contact Info) Description 08/24/2024 8:30 AM FAIRING WORKER Office Visit [facility] [address] [place] [phone] 08/24/2024 11:30 AM FAIRING WORKER [facility] [address] [place] [address] Angel Coombs, DPM [address] [place] [phone] 08/25/2024 8:30 AM FAIRING WORKER [facility] [address] [place] [phone] 08/26/2024 8:30 AM FAIRING WORKER [facility] [address] [place] [address] 08/27/2024 8:30 AM FAIRING WORKER Office Visit [facility] [address] [place] [address] 08/27/2024 11:00 AM FAIRING WORKER [facility] [address] [place] [address] Vilma Neves MD [address] [place] [phone] 08/28/2024 8:30 AM FAIRING WORKER Office Visit [facility] [address] [place] [address] 08/31/2024 8:30 AM FAIRING WORKER [facility] [address] [place] [address] 09/01/2024 8:30 AM FAIRING WORKER [facility] [address] [place] [address] 09/02/2024 8:30 AM FAIRING WORKER [facility] [address] [place] [address] 09/03/2024 8:30 AM FAIRING WORKER Office Visit [facility] [address] [place] [address] 09/03/2024 11:00 AM FAIRING WORKER Office Visit [facility] W[facility] Care [address] [place] [address] Vilma Neves MD [address] [place] [phone] 09/03/2024 11:00 AM FAIRING WORKER Office Visit [facility] Infectious Disease [address] [place] [address] Amairani Sigala MD [address] [place] [phone] 09/04/2024 8:30 AM FAIRING WORKER Office Visit [facility] Wound Care [address] [place] [address] 09/07/2024 8:30 AM FAIRING WORKER Office Visit [facility] Wound Care [address] [place] [address] 09/08/2024 8:30 AM FAIRING WORKER Office Visit [facility] [address] [place] [address] 09/09/2024 8:30 AM FAIRING WORKER Office Visit [facility] [address] [place] [address] 09/10/2024 8:30 AM FAIRING WORKER Office Visit [facility] Wound Care [address] [place] [address] 09/10/2024 11:20 AM FAIRING WORKER Office Visit [facility] [address] [place] [address] Vilma Neves MD [address] [place] [phone] 09/11/2024 8:30 AM FAIRING WORKER Office Visit [facility] Wound Care [address] [place] [address] 09/14/2024 8:30 AM FAIRING WORKER Office Visit [facility] Wound Care [address] [place] [address] 09/15/2024 8:30 AM FAIRING WORKER Office Visit [facility] Wound Care [address] [place] [phone] documented as of this encounter Procedures Procedure Name Priority Date/Time Associated Diagnosis Comments POCT PRECISION GLUCOSE Routine 08/12/2024 10:41 AM CDT POCT PRECISION GLUCOSE Routine 08/12/2024 8:27 AM CDT documented in this encounter Results * (ABNORMAL) POCT Precision glucose (08/12/2024 10:41 AM CDT) Glucose Blood, POC 113(H) 70 - 100 mg/dL 08/12/2024 10:42 AM CDT [facility] Comment: Meter ID: [id number] Capillary whole blood specimens should not be used in patients receiving intensive medical intervention/therapy because of the potential for pre-analytical collection error and specifically in patients with decreased peripheral blood flow, as it may not truly reflect the patient? s true physiological state. Examples include, but are not limited to, severe hypotension, shock, hyperosmolar-hyperglycemia (with or without ketosis), and severe dehydration. 08/12/2024 10:4 1 AM CDT 08/12/2024 10:42 AM CDT Thu MERIDA-Ena LAB POINT OF CARE TE ST DOCKED DEVICE UNSOLICITED RESULTS [facility] [address] [place] [phone] * (ABNORMAL) POCT Precision glucose (08/12/2024 8:27 AM CDT) Glucose Blood, POC 178(H) 70 - 100 mg/dL 08/12/2024 8:28 AM CDT [facility] Comment: Meter ID: [id number] Capillary whole blood specimens should not be used in patients receiving intensive medical intervention/therapy because of the potential for pre-analytical collection error and specifically in patients with decreased peripheral blood flow, as it may not truly reflect the patient? s true physiological state. Examples include, but are not limited to, severe hypotension, shock, hyperosmolar-hyperglycemia (with or without ketosis), and severe dehydration. 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
--- OUTSIDE RECORDS SUMMARY | 2024-08-21 10:19 | XMS_ITS | Encounter Summary ---
Author Organization [facility] er Address [address] [place] [address] Care Team Providers Care Space Control Supervisor Name Role Phone Thu Bhagat PA-C Primary Care Provider Reason for Visit * Reason Comments HBO * Consultation (Routine) - Authorized Specialty Diagnoses / Procedures Referred By Contac t Referred To Contact Wound Care Diagnoses Type 2 diabetes mellitus with foot ulcer Procedures Wound Care HBOT Thu Bhagat PA-C [address] [place] [phone] [facility] W[facility] Care [address] [place] [phone] Referral ID Status Reason Start Date Expiration Date V isits Requested Visits Authorized [id number] Authorized 07/02/2024 10/11/2024 99 99 Encounter Details Date Type Department Care Team (Late st Contact Info) Description 08/18/2024 8:30 AM CDT Office Visit [facility] [address] [place] [address] [place] [address] [place] [phone] Diabetic ulcer of right midfoot associated [...] from your doctor or pharmacy? Never 06/06/2024 [facility] Utilities Answer Date Recorded In the past 12 months has e [employer], gas, oil, or water company threatened to [...] week 06/06/2024 How often do you attend [facility] or [employer]ah[employer] services? More than 4 times per year 06/06/2024 Do you belong to any clubs o r organizations such as holiness groups, unions, fraternal or athletic groups, or [...] Recorded Patient Health Questionnaire-2 Score 0 06/06/2024 [facility] - Occupational Stress Questionnaire Answer Date Recorded [...] any time in the past [address] [facility], were you homeless or living in a fdc (including now)? No 06/06/2024 Interpersonal Safety Questionnaire [...] Sign Reading Time Taken Comments Blood Pressure 123/88 08/18/2024 10:45 AM CDT Pulse 80 08/18/2024 10:45 AM CDT Temperature 36.3 ??C (97.3 ??F) 08/18/2024 10:45 AM C DT Respiratory Rate 16 08/18/2024 10:45 AM CDT Oxygen Saturation - - Inhaled Oxygen Concentration - - Weight - - Height - - Body Mass Index - - documented in this encounter Progress Notes * Gladys Lowe BSN - 08/18/2024 8:30 AM CDT HYPERBARIC OXYGEN THERAPY TREATMENT # 26 2.0 Atmospheres Absolute for 90 minutes without air-breaks provider in clinic during treatment. Chamber: Chamber Number: [id number] Patient presented wearing off loading device to right Leg, ordered dressings in place. Vitals: 08/18/24 1045 BP: 123/88 Pulse: 80 Resp: 16 Temp: 36.3 ??C (97.3 ??F) Glucose Readings Pre Capillary Blood Glucose: 201 Post Capillary Blood Glucose: 125 Blood Glucose Reference Range: 65-95 If patient diabetic, was the Glycemia Interventions Protocol ordered by the physician? : Yes Hyperbaric Monitor Indications: Diabetic Kenney Grade 3 or Higher Treatment Start Time - Compression Begins at 1 ZAID: 0851 Rate Set PSI / Min: 2 Pressure Reached: 0859 ZAID: 2.0 Decompression Begins: 1029 Treatment End Time to 1 ZAID: 1037 Total Treatment Time: 106 Symptoms Noted During Treatment: None Hyperbaric Pre-Instpection Hyperbaric Pre-Inspection Consent Obtained: Yes Is there a TCOM ordered for the patient?: Completed Patient voided/noonan secured and emptied: Yes When did the patient last eat?: 0715 Last dose of injectable or oral hypoglycemic agent: 0700 Ostomy pouch emptied and vented (if applicable): N/A All implantable devices assessed, documented, and approved: N/A Intravenous access site secured and placed: N/A Valuables secured: Yes Linens are cotton: Yes Cotton Gown: Yes Glasses Removed: Yes Jewelery Removed: Yes Makeup Removed: Yes Hair Care Products Removed: Yes Wigs or Hair Pieces Removed: Yes Nail icelandic cured greater than 10 hours: Yes Personal [...] Associated attestation - Vilma Neves MD - 08/18/2024 12:04 PM CDT HBOT Physician Documentation: Wound Examined? No. [...] st Contact Info) Description 08/24/2024 8:30 AM NEGOTIATOR Office Visit [facility] W[facility] Care [address] [place] [address] 08/24/2024 11:30 AM NEGOTIATOR Office [facility] [address] [place] [address] Angel Coombs, DPM [address] [place] [phone] 08/25/2024 8:30 AM NEGOTIATOR Office Visit [facility] W[facility] Care [address] [place] [address] 08/26/2024 8:30 AM NEGOTIATOR Office Visit [facility] W[facility] Care [address] [place] [address] 08/27/2024 8:30 AM NEGOTIATOR Office Visit [facility] [address] [place] [address] 08/27/2024 11:00 AM NEGOTIATOR Office Visit [facility] [address] [place] [phone] [place] [address] [place] [phone] 08/28/2024 8:30 AM NEGOTIATOR Office Visit [facility] Care [address] [place] [address] 08/31/2024 8:30 AM NEGOTIATOR [facility] [address] [place] [address] 09/01/2024 8:30 AM NEGOTIATOR [facility] [address] [place] [address] 09/02/2024 8:30 AM NEGOTIATOR Office Visit [facility] W[facility] Care [address] [place] [address] 09/03/2024 8:30 AM NEGOTIATOR Office Visit [facility] W[facility] Care [address] [place] [address] 09/03/2024 11:00 AM NEGOTIATOR Office Visit [facility] W[facility] Care [address] [place] [address] Vilma Neves MD [address] [place] [phone] 09/03/2024 11:00 AM NEGOTIATOR Office Visit [facility] Infectious Disease [address] [place] [address] Amairani Sigala MD [address] [place] [phone] 09/04/2024 8:30 AM NEGOTIATOR Office Visit [facility] Wound Care [address] [place] [address] 19[address] 09/07/2024 8:30 AM NEGOTIATOR Office Visit [facility] W[facility] Care [address] [place] [address] 224[address] 09/08/2024 8:30 AM NEGOTIATOR Office Visit [facility] W[facility] [address] [place] [address] 09/09/2024 8:30 AM NEGOTIATOR Office Visit [facility] W[facility] [address] [place] [address]79[address] 09/10/2024 8:30 AM NEGOTIATOR Office Visit [facility] W[facility] Care [address] [place] [address]45 09/10/2024 11:20 AM NEGOTIATOR Office Visit [facility] W[facility] Care [address] [place] [address] Vilma Neves MD [address] [place] [phone] 09/11/2024 8:30 AM NEGOTIATOR Office Visit [facility] W[facility] Care [address] [place] [address] 57[address] 09/14/2024 8:30 AM NEGOTIATOR Office Visit [facility] Wound Care [address] [place] [address]24 09/15/2024 8:30 AM NEGOTIATOR Office Visit [facility] Care [address] [place] [address] documented as of this encounter Procedures Procedure Name Priority Date/Time Associated Diagnosis Comments POCT PRECISION GLUCOSE Routine 08/18/2024 10:45 AM CDT POCT PRECISION GLUCOSE Routine 08/18/2024 8:29 AM CDT documented in this encounter Results * (ABNORMAL) POCT Precision glucose (08/18/2024 10:45 AM CDT) Glucose Blood, POC 125(H) 70 - 100 mg/dL 08/18/2024 10:45 AM CDT [facility] Comment: Meter ID: [id number] Capillary whole blood specimens should not be used in patients receiving intensive medical intervention/therapy because of the potential for pre-analytical collection error and specifically in patients with decreased peripheral blood flow, as it may not truly reflect the patient? s true physiological state. Examples include, but are not limited to, severe hypotension, shock, hyperosmolar-hyperglycemia (with or without ketosis), and severe dehydration. 08/18/2024 10:4 5 AM CDT 08/18/2024 10:46 AM CDT Thu MERIDA-Ena LAB POINT OF CARE TE ST DOCKED DEVICE UNSOLICITED RESULTS [facility] [address] [place] [address] * (ABNORMAL) POCT Precision glucose (08/18/2024 8:29 AM CDT) Glucose Blood, POC 201(H) 70 - 100 mg/dL 08/18/2024 8:29 AM CDT [facility] Comment: Meter ID: [id number] Capillary whole blood specimens should not be used in patients receiving intensive medical intervention/therapy because of the potential for pre-analytical collection error and specifically in patients with decreased peripheral blood flow, as it may not truly reflect the patient? s true physiological state. Examples include, but are not limited to, severe hypotension, shock, hyperosmolar-hyperglycemia (with or without ketosis), and severe dehydration. 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
--- OUTSIDE RECORDS SUMMARY | 2024-08-21 10:19 | XMS_ITS | Encounter Summary ---
Author Organization [facility] er Address [address] [place] [id number] Care Team Providers Care Magento Developer Name Role Phone Thu Bhagat PA-C Primary Care Provider Reason for Visit * Reason Comments HBO * Consultation (Routine) - Authorized Specialty Diagnoses / Procedures Referred By Contac t Referred To Contact Wound Care Diagnoses Type 2 diabetes mellitus with foot ulcer Procedures Wound Care HBOT Thu Bhagat PA-C [address] [place] [phone] [facility] [address] [place] [id number] Referral ID Status Reason Start Date Expiration Date V isits Requested Visits Authorized [id number] Authorized 07/02/2024 10/11/2024 99 99 Encounter Details Date Type Department Care Team (Late st Contact Info) Description 08/19/2024 8:30 AM CDT Office Visit [facility] W[facility] Care [address] [place] [phone] [place] [address] [place] [phone] Diabetic ulcer of right midfoot associated [...] from your doctor or pharmacy? Never 06/06/2024 [facility] Utilities Answer Date Recorded In the past 12 months has e [employer], [employer], oil, or water [employer] threatened to shut off services in your [...] week 06/06/2024 How often do you attend [facility] or oriental orthodox services? More than 4 times per year 06/06/2024 Do you belong to any clubs o r organizations such as uatsdin groups, unions, fraternal or athletic groups, or [...] Recorded Patient Health Questionnaire-2 Score 0 06/06/2024 [facility] - Occupational Stress Questionnaire Answer Date [...] any time in the past 12 m [facility], were you homeless or living in a fci (including now)? No 06/06/2024 Interpersonal Safety Questionnaire [...] Sign Reading Time Taken Comments Blood Pressure 127/85 08/19/2024 10:50 AM CDT Pulse 64 08/19/2024 10:50 AM CDT Temperature 36.3 ??C (97.3 ??F) 08/19/2024 10:50 AM C DT Respiratory Rate 16 08/19/2024 10:50 AM CDT Oxygen Saturation 95% 08/19/2024 8:34 AM CDT Inhaled Oxygen Concentration - - Weight - - Height - - Body Mass Index - - documented in this encounter Progress Notes * Wanda Marquez RN - 08/19/2024 8:30 AM CDT HYPERBARIC OXYGEN THERAPY TREATMENT # 27 2.0 Atmospheres Absolute for 90 minutes without air-breaks Chamber: Chamber Number: [id number] Patient presented wearing off loading device to right foot, ordered dressings in place. Vitals: 08/19/24 1050 BP: 127/85 Pulse: 64 Resp: 16 Temp: 36.3 ??C (97.3 ??F) SpO2: Glucose Readings Pre Capillary Blood Glucose: 203 Post Capillary Blood Glucose: 119 Blood Glucose Reference Range: 65-95 If patient diabetic, was the Glycemia Interventions Protocol ordered by the physician? : Yes Hyperbaric Monitor Indications: Diabetic Kenney Grade 3 or Higher Treatment Start Time - Compression Begins at 1 ZAID: 0854 Rate Set PSI / Min: 1.5 Pressure Reached: 0905 ZAID: 2.0 Decompression Begins: 1035 Treatment End Time to 1 ZAID: 1045 Total Treatment Time: 111 Symptoms Noted During Treatment: None Hyperbaric Pre-Instpection Hyperbaric Pre-Inspection Consent Obtained: Yes Is there a TCOM ordered for the patient?: Completed Patient voided/noonan secured and emptied: Yes When did the patient last eat?: 0700 Last dose of injectable or oral hypoglycemic agent: 0650 Ostomy pouch emptied and vented (if applicable): N/A All implantable devices assessed, documented, and approved: N/A Intravenous access site secured and placed: N/A Valuables secured: Yes Linens are cotton: Yes Cotton Gown: Yes Glasses Removed: Yes Jewelery Removed: Yes Makeup Removed: Yes Hair Care Products Removed: Yes Wigs or Hair Pieces Removed: Yes Nail lao cured greater than 10 hours: Yes Personal [...] N / A (per provider) Left Irrigated: N / A (per provider) Right Irrigated: N / A (per provider) Associated attestation - Vilma Neves MD - 08/19/2024 11:14 AM CDT 69-year-old male with DFU Kenney 3 right foot showing clinical progression with CTP placement, compression, weekly debridements, glycemic control, 100% offloading, and oxygen adjuvant therapy. Continue HBO. documented in this encounter Plan of Treatment Upcoming Encounters Date Type Department Care Team (Late st Contact Info) Description 08/24/2024 8:30 AM GROUND [employer] HEAT PU[employer] TECHNICIAN Office Visit [facility] Hospital Wound Care [address] [place] [phone] 08/24/2024 11:30 AM [employer] TECHNICIAN Office Visit [facility] [address] [place] [address] Angel Coombs, DPM [address] [place] [phone] 08/25/2024 8:30 AM [employer] TECHNICIAN Office Visit [facility] Wound Care [address] [place] [phone] 08/26/2024 8:30 AM [employer] HE[employer] PU[employer] TECHNICIAN Office Visit [facility] W[facility] Care [address] [place] [address] 08/27/2024 8:30 AM [employer] HE[employer] TECHNICIAN Office Visit [facility] Wound Care [address] [place] [address] 08/27/2024 11:00 AM [employer] HE[employer] PU[employer] TECHNICIAN Office Visit [facility] W[facility] Care [address] [place] [phone] Vilma Neves MD [address] [place] [phone] 08/28/2024 8:30 AM [employer] TECHNICIAN Office Visit [facility] Wound Care [address] [place] [address] 08/31/2024 8:30 AM GR[employer] HE[employer] PU[employer] TECHNICIAN Office Visit [facility] Wound Care [address] [place] [address] 09/01/2024 8:30 AM GR[employer] HE[employer] PU[employer] TECHNICIAN Office Visit [facility] W[facility] Care [address] [place] [address] 09/02/2024 8:30 AM GR[employer] HE[employer] PU[employer] TECHNICIAN Office Visit [facility] Care [address] [place] [address] 09/03/2024 8:30 AM [employer] HE[employer] TECHNICIAN Office Visit [facility] Care [address] [place] [address] 09/03/2024 11:00 AM [employer] HE[employer] TECHNICIAN Office Visit [facility] W[facility] Care [address] [place] [phone] Vilma Neves MD [address] [place] [phone] 09/03/2024 11:00 AM [employer] TECHNICIAN Office Visit [facility] Infectious Disease [address] [place] [phone] Amairani Sigala MD [address] [place] [phone] 09/04/2024 8:30 AM [employer] TECHNICIAN Office Visit [facility] Wound Care [address] [place] [phone] 09/07/2024 8:30 AM [employer] HE[employer] TECHNICIAN Office Visit [facility] Wound Care [address] [place] [phone] 09/08/2024 8:30 AM [employer] HE[employer] TECHNICIAN Office Visit [facility] W[facility] Care [address] [place] [phone] 09/09/2024 8:30 AM [employer] HE[employer] PU[employer] TECHNICIAN Office Visit [facility] Wound Care [address] [place] [phone] 09/10/2024 8:30 AM GR[employer] HE[employer] PU[employer] TECHNICIAN Office Visit [facility] Wound Care [address] [place] [address] 09/10/2024 11:20 AM [employer] HE[employer] TECHNICIAN Office Visit [facility] Wound Care [address] [place] [address] Vilma Neves MD [address] [place] [phone] 09/11/2024 8:30 AM [employer] TECHNICIAN Office Visit [facility] Wound Care [address] [place] [phone] 09/14/2024 8:30 AM GR[employer] HE[employer] TECHNICIAN Office Visit [facility] W[facility] Care [address] [place] [phone] 09/15/2024 8:30 AM [employer] TECHNICIAN Office Visit [facility] Wound Care [address] [place] [phone] documented as of this encounter Procedures Procedure Name Priority Date/Time Associated Diagnosis Comments POCT PRECISION GLUCOSE Routine 08/19/2024 10:56 AM CDT POCT PRECISION GLUCOSE Routine 08/19/2024 8:42 AM CDT documented in this encounter Results * (ABNORMAL) POCT Precision glucose (08/19/2024 10:56 AM CDT) Glucose Blood, POC 119(H) 70 - 100 mg/dL 08/19/2024 10:[address] [facility] Comment: Meter ID: [id number] Capillary whole blood specimens should not be used in patients receiving intensive medical intervention/therapy because of the potential for pre-analytical collection error and specifically in patients with decreased peripheral blood flow, as it may not truly reflect the patient? s true physiological state. Examples include, but are not limited to, severe hypotension, shock, hyperosmolar-hyperglycemia (with or without ketosis), and severe dehydration. 08/19/2024 10:5 6 AM CDT 08/19/2024 10:57 AM CDT Thu Bhagat PA-C LAB POINT OF CARE TE ST DOCKED DEVICE UNSOLICITED RESULTS [facility] [address] [place] [phone] * (ABNORMAL) POCT Precision glucose (08/19/2024 8:42 AM CDT) Glucose Blood, POC 203(H) 70 - 100 mg/dL 08/19/2024 8:[address] [facility] Comment: Meter ID: [id number] Capillary whole blood specimens should not be used in patients receiving intensive medical intervention/therapy because of the potential for pre-analytical collection error and specifically in patients with decreased peripheral blood flow, as it may not truly reflect the patient? s true physiological state. Examples include, but are not limited to, severe hypotension, shock, hyperosmolar-hyperglycemia (with or without ketosis), and severe dehydration. 08/19/2024 8:42 AM CDT 08/19/2024 8:49 AM CDT Thu Bhagat PA-C LAB POINT OF CARE TE ST DOCKED DEVICE UNSOLICITED RESULTS 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
--- OUTSIDE RECORDS SUMMARY | 2024-08-21 10:19 | XMS_ITS | Encounter Summary ---
Author Organization [facility] er Address [address] [place] [id number] Care Team Providers Care Necktie Stitcher Name Role Phone Thu Bhagat PA-C Primary Care Provider [phone] Reason for Visit * Reason Comments Follow-up Wound Infection Right foot * Consultation (Routine) - Authorized Specialty Diagnoses / Procedures Referred By Kaley t Referred To Contact Infectious Diseases Diagnoses Cellulitis, unspecified Procedures Infectious Disease Thu Bhagat PA-C [address] [place] [phone] [facility] Infectious Diseas [address] [place] [id number] Referral ID Status Reason Start Date Expiration Date V isits Requested Visits Authorized [id number] Authorized 07/09/2024 07/09/2025 99 99 Encounter Details Date Type Department Care Team (Late st Contact Info) Description 08/18/2024 11:30 AM CDT Office Visit [facility] [address] [place] [id number] [place] [address] [place] [phone] Infection of right foot (Primary Dx); Type 2 diabetes mellitus with hyperglycemia, without long-term current use of insulin (HCC) Social History Tobacco Use Types Packs/Day Years [...] from your doctor or pharmacy? Never 06/06/2024 [facility] Utilities Answer Date Recorded In the past 12 months has e [employer], gas, oil, or water company threatened to [...] week 06/06/2024 How often do you attend [facility] or sabianism services? More than 4 times per year 06/06/2024 Do you belong to any clubs o r organizations such as synagogue groups, unions, fraternal or athletic groups, or [...] Recorded Patient Health Questionnaire-2 Score 0 06/06/2024 [facility] - Occupational Stress Questionnaire Answer [...] any time in the past 12 m [facility], were you homeless or living in a longterm (including now)? No 06/06/2024 Interpersonal Safety Questionnaire [...] Sign Reading Time Taken Comments Blood Pressure 112/81 08/18/2024 11:11 AM CDT Pulse 79 08/18/2024 11:11 AM CDT Temperature 36.1 ??C (97 ??F) 08/18/2024 11:11 AM CDT Respiratory Rate 14 08/18/2024 11:11 AM CDT Oxygen Saturation 97% 08/18/2024 11:11 AM CDT Inhaled Oxygen Concentration - - Weight - - Height - - Body Mass Index - - documented in this encounter Progress Notes * Josee Funk RN - 08/18/2024 11:30 AM CDT Procedure Note Procedures * Amairani Sigala MD - 08/18/2024 11:30 AM CDT INFECTIOUS DISEASES progress note 08/18/24 Reason For Consult: Diabetic foot infection /abscess in the foot Subjective Seen on August 03. Patient has been off the antimicrobials since early July. He has been on cefadroxil twice a day and tolerating the antimicrobials without any problem. He has had surgery on 06/08 and 06/12 over his right foot. He continues to have HBO. No side effect from the antimicrobials, no fever no chills. Minimal drainage noted HISTORY OF PRESENT ILLNESS It is my pleasure to see Francisco Javier Fung is a 69 y.o. male at the request of Thu Bhagat PA-C with past medical history significant for diabetes mellitus type 2, hyperlipidemia, atrial fibrillation. The patient noticed about 3 weeks ago acute onset of pain and redness of his foot. He was seen on June 02 was given antibiotic with Doxycycline, however her given that the symptomswere still going on he came back for further evaluation. He was seen here in the hospital and subsequently got a MRI that showed extensive soft tissue signal abnormality with edema cellulitis and myositis with extensive fluid tracking within the soft tissue. Between the base of the second toe at the proximal phalangeal level within the first interspace space between the metatarsal heads no osteomyelitis. Is taken to the OR on 06/08/2024, and underwent a right second toe amputation right second metatarsal head resection incision and drainage and wound debridement. He is heading to the OR again this week. No current side effect of the antibiotic, he is currently on cefepime, vancomycin and Flagyl. Cultures are showing mainly MSSA. REVIEW OF SYSTEMS A 10-point review of systems was reviewed with the patient, and negative, except as detailed in theHPI above. EXPOSURE - hardware: None - Travel history: NA - sexual HX: NA - IVDU: neg - Sick contact: neg - recent antimicrobials: Doxycycline/ MEDICATIONS Prior to Admission medications Medication Sig Start Date End Date Taking? Authorizing Provider apixaban (ELIQUIS) 5 MG tablet Take 1 tablet (5 mg total) by mouth 2 times daily Yes ProviderJake MD aspirin EC 81 MG EC tablet Take 1 tablet (81 mg total) by mouth daily Yes ProviderJake MD atorvastatin (LIPITOR) 80 MG tablet Take 0.5 tablets (40 mg total) by mouth 1 (one) time each day 04/27/24 Yes ProviderJake MD carvedilol (COREG) 12.5 MG tablet Take 1 tablet (12.5 mg total) by mouth 2 (two) times a day 10/01/23 Yes ProviderJake MD doxycycline (Vibramycin) 100 MG capsule Take 1 capsule (100 mg total) by mouth 2 (two) times a day for 14 days 06/02/24 06/16/24 Yes Derrell Monreal PA-C Empagliflozin 25 MG tablet Take 25 mg by mouth 1 (one) time each day 10/28/23 Yes Jake Shah MD glipiZIDE (GLUCOTROL XL) 10 MG 24 hr tablet Take 2 tablets (20 mg total) by mouth 1 (one) time eachday Do not crush, chew, or split. Yes Provider, Historical, MD lisinopril (ZESTRIL) 10 MG tablet Take 2 tablets (20 mg total) by mouth 1 (one) time each day Yes Jake Shah MD metFORMIN (GLUCOPHAGE) 1000 MG tablet Take 1 tablet (1,000 mg total) by mouth 2 (two) times a day with meals Yes Jake Shah MD pioglitazone (ACTOS) 45 MG tablet Take 1 tablet (45 mg total) by mouth 1 (one) time each day 10/28/23Yes Jake Shah MD cyanocobalamin (VITAMIN B-12) 1000 MCG tablet Take 1 tablet (1,000 mcg total) by mouth 1 (one) timeeach day Jake Shah MD lidocaine (LMX) 4 % cream Apply 1 application topically 4 (four) times a day if needed for mild pain (Apply moderate amount topically QID PRN numbness/discomfort in feet) Jake Shah MD Magnesium Oxide 420 MG tablet Take 1 tablet by mouth 2 (two) times a day Jake Shah MD UNABLE TO FIND Med Name: Neurvive supplement Jake Shah MD Vitamin D, Cholecalciferol, 25 MCG (1000 UT) tablet Take 1,000 Units by mouth 1 (one) time each dayProviderJake MD Objective PHYSICAL EXAM Visit Vitals BP 112/81 (BP Location: Right arm, Patient Position: Sitting, BP Cuff Size: Adult) Pulse 79 Temp 36.1 ??C (97 ??F) (Temporal) Resp 14 SpO2 97% Smoking Status Never Physical Exam GENERAL: No acute distress. HEENT: OP clear - non icteric sclera, - no thrush, no ulcers NECK: Supple, CHEST: comfortable breathing ABDOMEN: Soft. Nontender. Nondistended. Extremities: Right foot open surgical site is seen, with small dehiscence noted, the bone appears to be covered no surrounding erythema and no drainage SKIN: Sweat rash noted over the back NEURO: Awake, alert, and oriented to baseline. No acute focal sensorimotor deficits. LAB STUDIES Lab Results Component Value Date WBC 6.8 08/03/2024 HGB 16.1 08/03/2024 HCT 50.3 (H) 08/03/2024 MCV 91.6 08/03/2024 PLT 212 08/03/2024 Lab Results Component Value Date GLUCOSE 102 (H) 08/03/2024 CALCIUM 9.9 08/03/2024 NA 139 08/03/2024 K 4.5 08/03/2024 CO2 25 08/03/2024 CL 105 08/03/2024 BUN 21 08/03/2024 CREATININE 1.06 08/03/2024 Lab Results Component Value Date CRP >320.0 (H) 06/06/2024 Lab Results Component Value Date ALT 22 08/03/2024 AST 31 08/03/2024 ALKPHOS 61 07/14/2024 BILITOT 1.6 (H) 07/14/2024 No results found for: OO3BWIPE No results found for: HAV, HEPAIGM, HEPBIGM, HEPBCAB, HBEAG, HEPCAB No results found for: HIV1X2 MICROBIOLOGY Reviewed, Staph aureus on culture from surgery on 06/08/2024, Culture from 06/06/2024 with MSSA Pathology 06/08/2024 MICROSCOPIC DESCRIPTION: A-B. Microscopic examination is performed. DIAGNOSIS: A. Bone and soft tissue, right second toe, amputation: - Ulceration, cellulitis, and underlying superficial acute osteomyelitis focally involving examined resection margin. - See comment. B. Bone, second metatarsal head, resection: - Examined bone margin negative for acute osteomyelitis. - Attached soft tissue with focal acute inflammation. - See comment. IMAGING MRI of the foot on 06/06/2024 IMPRESSION: 1. Extensive soft tissue signal abnormality [...] of the 2nd and 3rd toes to themidfoot level, plantar to the 3rd metatarsal shaft and also along the plantar and plantar medial aspects of the plantar aponeurosis of the medial forefoot to the midfoot level. Appearance is worrisome for extensive soft tissue abscess, myositis and tenosynovitis. 3. No osteomyelitis. 4. Small amount of nonspecific fluid within the 1st through 3rd MTP joint spaces. Assessment/Plan The patient is a 69 y.o. male with a past medical history relevant for diabetes mellitus type 2, A-fib, who presented to hospital with a skin and soft tissue infection involving his right foot #1 Diabetic foot infection #2 Diabetic foot abscess status post washout done on 06/08/2024 #3 Leukocytosis secondary to #1 and 2 #4 Diabetes mellitus type 2 #5 MSSA infection Comment: Patient seen and examined. Surgical site appears to be clean, good granulation tissue. Seems to be filling in he has been on cefadroxil HBO to continue per wound staff Recommendations: - Will stop all antimicrobials as there is no evidence of infection, things are improving -Monitor the wound, return to ID earlier than in 2 weeks if issues -Recent blood work reviewed -Return to clinic in 2 weeks. Patient is encouraged to drink Kefir, one cup a day- bought in any supermarket, in order to decrease the risk of diarrhea associated to C difficile infection Side effects of the antibiotic discussed with patient in details Greater than 30 minutes of total time spent in patient's care such as (preparation/review of tests,obtaining/reviewing separately obtained history, medically appropriate examination/evaluation, counseling/educating patient/family/caregiver, ordering medications/tests/procedures, referring/communicating with other health career development facilitator not separately reported, documentation, and independentlyinterpreting results not separately reported, communicating results to the patient/family/caregiver, and care coordination not separately reported). Amairani Strickland MD Infectious diseases Supply Requirements Officer documented in this encounter Plan of Treatment Upcoming Encounters Date Type Department Care Team (Late st Contact Info) Description 08/24/2024 8:30 AM [employer] Office Visit [facility] [address] [place] [phone] 08/24/2024 11:30 AM [employer] Office Visit [facility] [address] [place] [address] Angel Coombs DPM [address] [place] [phone] 08/25/2024 8:30 AM [employer] Office Visit [facility] [address] [place] [phone] 08/26/2024 8:30 AM [employer] Office [facility] [address] [place] [phone] 08/27/2024 8:30 AM [employer] Office Visit [facility] [address] [place] [phone] 08/27/2024 11:00 AM [employer] Office Visit [facility] [address] [place] [phone] Vilma Neves MD [address] [place] [phone] 08/28/2024 8:30 AM [employer] Office [facility] [address] [place] [phone] 08/31/2024 8:30 AM [employer] Office Visit [facility] [address] [place] [phone] 09/01/2024 8:30 AM [employer] Office Visit [facility] [address] [place] [phone] 09/02/2024 8:30 AM [employer] Office Visit [facility] [address] [place] [phone] 09/03/2024 8:30 AM [employer] Office Visit [facility] [address] [place] [phone] 09/03/2024 11:00 AM [employer] Office Visit [facility] [address] [place] [phone] Vilma Neves MD [address] [place] [phone] 09/03/2024 11:00 AM [employer] Office Visit [facility] Infectious Disease [address] [place] [phone] Amairani Sigala MD [address] [place] [phone] 09/04/2024 8:30 AM [employer] Office Visit [facility] [address] [place] [phone] 09/07/2024 8:30 AM [employer] Office Visit [facility] [address] [place] [phone] 09/08/2024 8:30 AM [employer] Office Visit [facility] [address] [place] [phone] 09/09/2024 8:30 AM [employer] Office Visit [facility] [address] [place] [phone] 09/10/2024 8:30 AM [employer] Office Visit [facility] [address] [place] [phone] 09/10/2024 11:20 AM [employer] Office Visit [facility] [address] [place] [phone] Vilma Neves MD [address] [place] [phone] 09/11/2024 8:30 AM [employer] Office Visit [facility] [address] [place] [phone] 09/14/2024 8:30 AM [employer] Office Visit [facility] [address] [place] [phone] 09/15/2024 8:30 AM [employer] Office Visit [facility] [address] [place] [phone] documented as of this encounter Visit Diagnoses Diagnosis Infection of right foot- Primary Type 2 diabetes mellitus with hyperglycemia, without long-term current use of insulin (HCC) documented in this encounter Care Teams Necktie Stitcher Relationship Specialty Start Date End Date Thu Bhagat PA-C [address] [place] [phone] PCP - General 11/26/22 documented as of this encounter
--- OUTSIDE RECORDS SUMMARY | 2024-08-21 10:19 | XMS_ITS | Encounter Summary ---
Author Organization [facility] er Address [address] [place] [address] Care Team Providers Care Steam Pan Sponger Name Role Phone Thu Bhagat PA-C Primary Care Provider Reason for Visit * Reason Comments HBO * Consultation (Routine) - Authorized Specialty Diagnoses / Procedures Referred By Contac t Referred To Contact Wound Care Diagnoses Type 2 diabetes mellitus with foot ulcer Procedures Wound Care HBOT Thu Bhagat PA-C [address] [place] [phone] [facility] Wound Care [address] [place] [phone] Referral ID Status Reason Start Date Expiration Date V isits Requested Visits Authorized [id number] Authorized 07/02/2024 10/11/2024 99 99 Encounter Details Date Type Department Care Team (Late st Contact Info) Description 08/13/2024 8:30 AM CDT Office Visit [facility] [address] [place] [phone] [place] [address] [place] [phone] Diabetic ulcer of right midfoot associated [...] from your doctor or pharmacy? Never 06/06/2024 [facility] Utilities Answer Date Recorded In the past 12 months has e [employer], gas, oil, or water company threatened to [...] week 06/06/2024 How often do you attend [facility] or druze services? More than 4 times per year 06/06/2024 Do you belong to any clubs o r organizations such as nondenominational groups, unions, fraternal or athletic groups, or [...] Recorded Patient Health Questionnaire-2 Score 0 06/06/2024 [facility] - Occupational Stress Questionnaire Answer Date [...] time in the past 12 m [facility], were you homeless or living in a nursing home (including now)? No 06/06/2024 Interpersonal Safety Questionnaire Answer Date Recorded How often does anyone, inclu ding family and friends, physically hurt you? Never 06/06/2024 How often does anyone, tyrell kerns family and friends, insult or talk down to you? Never 06/06/2024 How often does anyone, tyrell kerns family and friends, threaten you with harm? Never 06/06/2024 How often does anyone, tyrell ekrns family and friends, threaten you with harm? Never 06/06/2024 Sex and Gender Information Value Date Recorded Sex Assigned at Not on file Gender Identity Not on file Sexual Orientation Not on file documented as of this encounter Last Filed Vital Signs Vital Sign Reading Time Taken Comments Blood Pressure 148/97 08/13/2024 8:00 AM CDT Pulse 96 08/13/2024 8:00 AM CDT Temperature 36.4 ??C (97.5 ??F) 08/13/2024 8:00 AM CD T Respiratory Rate 18 08/13/2024 8:00 AM CDT Oxygen Saturation - - Inhaled Oxygen Concentration - - Weight - - Height - - Body Mass Index - - documented in this encounter Progress Notes * Gladys Lowe BSN - 08/13/2024 8:30 AM CDT HYPERBARIC OXYGEN THERAPY TREATMENT # 23 2.0 Atmospheres Absolute for 90 minutes without air-breaks Chamber: Chamber Number: [id number] Patient presented wearing off loading device to right foot, ordered dressings in place. Vitals: 08/13/24 0800 BP: (!) 148/97 Pulse: 96 Resp: 18 Temp: 36.4 ??C (97.5 ??F) Glucose Readings Pre Capillary Blood Glucose: 179 Blood Glucose Reference Range: 65-95 If patient diabetic, was the Glycemia Interventions Protocol ordered by the physician? : Yes (half a boost given) Hyperbaric Monitor Indications: Diabetic Kenney Grade 3 or Higher Treatment Start Time - Compression Begins at 1 ZAID: 0859 Rate Set PSI / Min: 1.5 Pressure Reached: 0910 ZAID: 2.0 Decompression Begins: 1040 Treatment End Time to 1 ZAID: 1050 Total Treatment Time: 111 Symptoms Noted During Treatment: None Hyperbaric Pre-Instpection Hyperbaric Pre-Inspection Consent Obtained: Yes Is there a TCOM ordered for the patient?: Completed Patient voided/noonan secured and emptied: Yes When did the patient last eat?: 0840 (half a boost given) Last dose of injectable or oral hypoglycemic agent: 0700 Ostomy pouch emptied and vented (if applicable): N/A All implantable devices assessed, documented, and approved: N/A Intravenous access site secured and placed: N/A Valuables secured: Yes Linens are cotton: Yes Cotton Gown: Yes Glasses Removed: Yes Jewelery Removed: Yes Makeup Removed: Yes Hair Care Products Removed: Yes Wigs or Hair Pieces Removed: Yes Nail cook islander cured greater than 10 hours: Yes Personal [...] Associated attestation - Vilma Neves MD - 08/13/2024 1:45 PM CDT HBOT Physician Documentation: Wound Examined? [...] st Contact Info) Description 08/24/2024 8:30 AM MOBILE APPLICATION DEVELOPER Office Visit [facility] [address] [place] [address] 08/24/2024 11:30 AM MOBILE APPLICATION DEVELOPER Office [facility] [address] [place] [address] Angel Coombs, DPM [address] [place] [phone] 08/25/2024 8:30 AM MOBILE APPLICATION DEVELOPER Office [facility] [address] [place] [address] 08/26/2024 8:30 AM MOBILE APPLICATION DEVELOPER Office Visit [facility] [address] [place] [address] 08/27/2024 8:30 AM MOBILE APPLICATION DEVELOPER Office [facility] [address] [place] [address] 08/27/2024 11:00 AM MOBILE APPLICATION DEVELOPER Office Visit [facility] [address] [place] [address] [place] [address] [place] [phone] 08/28/2024 8:30 AM MOBILE APPLICATION DEVELOPER Office Visit [facility] [address] [place] [address] 08/31/2024 8:30 AM MOBILE APPLICATION DEVELOPER Office Visit [facility] [address] [place] [address] 09/01/2024 8:30 AM MOBILE APPLICATION DEVELOPER Office Visit [facility] [address] [place] [phone] 09/02/2024 8:30 AM MOBILE APPLICATION DEVELOPER Office Visit [facility] [address] [place] [phone] 09/03/2024 8:30 AM MOBILE APPLICATION DEVELOPER Office Visit [facility] [address] [place] [phone] 09/03/2024 11:00 AM MOBILE APPLICATION DEVELOPER Office Visit [facility] Wound Care [address] [place] [address] Vilma Neves MD [address] [place] [phone] 09/03/2024 11:00 AM MOBILE APPLICATION DEVELOPER Office Visit [facility] Infectious Disease [address] [place] [address] Amairani Sigala MD [address] [place] [phone] 09/04/2024 8:30 AM MOBILE APPLICATION DEVELOPER Office Visit [facility] Wound Care [address] [place] [phone] 09/07/2024 8:30 AM MOBILE APPLICATION DEVELOPER Office Visit [facility] [address] [place] [phone] 09/08/2024 8:30 AM MOBILE APPLICATION DEVELOPER Office Visit [facility] [address] [place] [phone] 09/09/2024 8:30 AM MOBILE APPLICATION DEVELOPER Office Visit [facility] [address] [place] [phone] 09/10/2024 8:30 AM MOBILE APPLICATION DEVELOPER Office Visit [facility] [address] [place] [phone] 09/10/2024 11:20 AM MOBILE APPLICATION DEVELOPER Office Visit [facility] [address] [place] [phone] Vilma Neves MD [address] [place] [phone] 09/11/2024 8:30 AM MOBILE APPLICATION DEVELOPER Office Visit [facility] [address] [place] [phone] 09/14/2024 8:30 AM MOBILE APPLICATION DEVELOPER Office Visit [facility] Wound Care [address] [place] [phone] 09/15/2024 8:30 AM MOBILE APPLICATION DEVELOPER Office Visit [facility] Wound Care [address] [place] [phone] documented as of this encounter Procedures Procedure Name Priority Date/Time Associated Diagnosis Comments POCT PRECISION GLUCOSE Routine 08/13/2024 11:01 AM CDT POCT PRECISION GLUCOSE Routine 08/13/2024 8:43 AM CDT documented in this encounter Results * (ABNORMAL) POCT Precision glucose (08/13/2024 11:01 AM CDT) Glucose Blood, POC 153(H) 70 - 100 mg/dL 08/13/2024 11:02 AM CDT [facility] Comment: Meter ID: [id number] Capillary whole blood specimens should not be used in patients receiving intensive medical intervention/therapy because of the potential for pre-analytical collection error and specifically in patients with decreased peripheral blood flow, as it may not truly reflect the patient? s true physiological state. Examples include, but are not limited to, severe hypotension, shock, hyperosmolar-hyperglycemia (with or without ketosis), and severe dehydration. 08/13/2024 11:0 1 AM CDT 08/13/2024 11:02 AM CDT Vilma Neves MD LAB POINT OF CARE TE ST DOCKED DEVICE UNSOLICITED RESULTS [facility] [address] [place] [phone] * (ABNORMAL) POCT Precision glucose (08/13/2024 8:43 AM CDT) Glucose Blood, POC 179(H) 70 - 100 mg/dL 08/13/2024 8:44 AM CDT [facility] Comment: Meter ID: [id number] Capillary whole blood specimens should not be used in patients receiving intensive medical intervention/therapy because of the potential for pre-analytical collection error and specifically in patients with decreased peripheral blood flow, as it may not truly reflect the patient? s true physiological state. Examples include, but are not limited to, severe hypotension, shock, hyperosmolar-hyperglycemia (with or without ketosis), and severe dehydration. 08/13/2024 8:43 AM CDT 08/13/2024 8:44 AM CDT Vilma Neves MD LAB POINT OF CARE TE ST DOCKED DEVICE UNSOLICITED RESULTS [facility] [address] [place] [address] documented in this encounter Visit Diagnoses Diagnosis Diabetic ulcer of right midfoot associated with type 2 diabetes mellitus, 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)- Primary documented in this encounter Care Teams Steam Pan Sponger Relationship Specialty Start Date End Date Thu Bhagat PA-C 1 [facility] [place] [place] [phone] PCP - General 11/26/22 documented as of this encounter
--- OUTSIDE RECORDS SUMMARY | 2024-08-21 10:19 | XMS_ITS | Encounter Summary ---
Author Organization [facility] er Address [address] [place] [address] Care Team Providers Care Molder Foam Rubber Name Role Phone Thu Bhagat PA-C Primary Care Provider [phone] Reason for Visit * Reason Onset Date Comments ID and Wound Clinic appts 08/18/2024 Encounter Details Date Type Department Care Team ([facility] st Contact Info) Description 08/18/2024 Telephone [facility] Infectious Disease [address] [place] [phone] [place] [address] [place] [phone] ID and Wound Clinic appts Social History Tobacco Use Types Packs/Day Years [...] from your doctor or pharmacy? Never 06/06/2024 [facility] Utilities Answer Date Recorded In the past 12 months has e [employer], gas, oil, or water [employer] threatened to shut off services in your [...] week 06/06/2024 How often do you attend chur or sabianist services? More than 4 times per year 06/06/2024 Do you belong to any clubs o r organizations such as jewish groups, unions, fraternal or athletic groups, or [...] Recorded Patient Health Questionnaire-2 Score 0 06/06/2024 [facility] - Occupational Stress [...] any time in the past [address] [facility], were you homeless or living in a jail (including now)? No 06/06/2024 Interpersonal Safety Questionnaire Answer Date Recorded How often does anyone, juancarolee luis f family and friends, physically hurt you? Never 06/06/2024 How often does anyone, tyrell luis f family and friends, insult or talk down to you? Never 06/06/2024 How often does anyone, juancarolee ding family and friends, threaten you with harm? Never 06/06/2024 How often does anyone, juancarolee luis f family and friends, threaten you with harm? Never 06/06/2024 Sex and Gender Information Value Date Recorded Sex Assigned at Not on file Gender Identity Not on file Sexual Orientation Not on file documented as of this encounter Miscellaneous Notes * Telephone Encounter - Renee Vincent - 08/18/2024 11:51 AM CDT I have scheduled patient for 09/03/24 in [place]. Patient has HBO that morning. I scheduled him after his HBO appt and Wound is checking to see if they can adjust his appt with them on that date. Wondering if he will have any future appts in [place]? Trying to coordinate with Wound Clinic so we don't keep running in to that we can't accommodate these patients. Please advise in regards to future IDappts. Thanks documented in this encounter Plan of Treatment Upcoming Encounters Date Type Department Care Team (Late st Contact Info) Description 08/24/2024 8:30 AM CUSTOMER MARKETING ASSISTANT Office Visit [facility] Wound Care [address] [place] [phone] 08/24/2024 11:30 AM CUSTOMER MARKETING ASSISTANT Office Visit Podiatry [address] [place] [phone] Angel Coombs DPM [address] [place] [phone] 08/25/2024 8:30 AM CUSTOMER MARKETING ASSISTANT Office Visit [facility] Wound Care [address] [place] [address] 08/26/2024 8:30 AM CUSTOMER MARKETING ASSISTANT Office Visit [facility] Wound Care [address] [place] [address] 12770 08/27/2024 8:30 AM CUSTOMER MARKETING ASSISTANT Office Visit [facility] Wound Care [address] [place] [address] [phone] 08/27/2024 11:00 AM CUSTOMER MARKETING ASSISTANT Office Visit [facility] Wound Care [address] [place] [address] 11379 Vilma Neves MD [address] [place] [phone] 08/28/2024 8:30 AM CUSTOMER MARKETING ASSISTANT Office Visit [facility] Wound Care [address] [place] [address] 33021 08/31/2024 8:30 AM CUSTOMER MARKETING ASSISTANT Office Visit [facility] Wound Care [address] [place] [address] [phone] 09/01/2024 8:30 AM CUSTOMER MARKETING ASSISTANT Office Visit [facility] [address] [place] [phone] 09/02/2024 8:30 AM CUSTOMER MARKETING ASSISTANT Office Visit [facility] [address] [place] [address] 70294 09/03/2024 8:30 AM CUSTOMER MARKETING ASSISTANT Office Visit [facility] [address] [place] [address] 13586 09/03/2024 11:00 AM CUSTOMER MARKETING ASSISTANT Office Visit [facility] [address] [place] [address] 35060 Vilma Neves MD [address] [place] [phone] 09/03/2024 11:00 AM CUSTOMER MARKETING ASSISTANT Office Visit [facility] Infect[facility] [address] [place] [address] 43700 Amairani Sigala MD [address] [place] [phone] 09/04/2024 8:30 AM CUSTOMER MARKETING ASSISTANT Office Visit [facility] [address] [place] [phone] 09/07/2024 8:30 AM CUSTOMER MARKETING ASSISTANT Office Visit [facility] [address] [place] [phone] 09/08/2024 8:30 AM CUSTOMER MARKETING ASSISTANT Office Visit [facility] [address] [place] [address] [phone] 09/09/2024 8:30 AM CUSTOMER MARKETING ASSISTANT Office Visit [facility] [address] [place] [address] [phone] 09/10/2024 8:30 AM CUSTOMER MARKETING ASSISTANT Office Visit [facility] [address] [place] [address] [phone] 09/10/2024 11:20 AM CUSTOMER MARKETING ASSISTANT Office Visit [facility] [address] [place] [phone] Vilma Neves MD [address] [place] [phone] 09/11/2024 8:30 AM CUSTOMER MARKETING ASSISTANT Office Visit [facility] Wound Care [address] [place] [address] [phone] 09/14/2024 8:30 AM CUSTOMER MARKETING ASSISTANT Office Visit [facility] W[facility] Care [address] [place] [phone] 09/15/2024 8:30 AM CUSTOMER MARKETING ASSISTANT Office Visit [facility] W[facility] Care [address] [place] [address] [phone] documented as of this encounter Visit Diagnoses Not on filedocumented in this encounter Care Teams Molder Foam Rubber Relationship Specialty Start Date End Date Thu Bhagat PA-C 1 [place] [phone] PCP - General 11/26/22 documented as of this encounter
--- OUTSIDE RECORDS SUMMARY | 2024-08-21 10:19 | XMS_ITS | Encounter Summary ---
Author Organization [facility] er Address [address] [place] [id number] Care Team Providers Care Automatic Spooler Operator Name Role Phone Thu Bhagat PA-C Primary Care Provider [phone] Reason for Visit * Reason Comments HBO * Consultation (Routine) - Authorized Specialty Diagnoses / Procedures Referred By Contac t Referred To Contact Wound Care Diagnoses Type 2 diabetes mellitus with foot ulcer Procedures Wound Care HBOT Thu Bhagat PA-C [address] [place] [phone] [facility] W[facility] Care [address] [place] [address] Referral ID Status Reason Start Date Expiration Date V isits Requested Visits Authorized [id number] Authorized 07/02/2024 10/11/2024 99 99 Encounter Details Date Type Department Care Team (Late st Contact Info) Description 08/20/2024 8:30 AM CDT Office Visit [facility] [address] [place] [phone] [place] [address] [place] [phone] Diabetic ulcer of right midfoot associated [...] from your doctor or pharmacy? Never 06/06/2024 [facility] Utilities Answer Date Recorded In the past 12 months has e [employer]ever, [employer], oil, or water [employer] threatened to shut off services in your [...] week 06/06/2024 How often do you attend [facility] or gnosticism services? More than 4 times per year 06/06/2024 Do you belong to any clubs o r organizations such as restorationism groups, unions, fraternal or athletic groups, or [...] Recorded Patient Health Questionnaire-2 Score 0 06/06/2024 [facility] Occupat [facility] - Occupational Stress Questionnaire Answer Date [...] any time in the past [address] [facility], were you homeless or living in a senior care (including now)? No 06/06/2024 Interpersonal Safety Questionnaire [...] CDT Temperature 36.7 ??C (98 ??F) 08/20/2024 10:35 AM CDT Respiratory Rate - - Oxygen Saturation 95% 08/20/2024 10:35 AM CDT Inhaled Oxygen Concentration - - Weight - - Height - - Body Mass Index - - documented in this encounter Progress Notes * Riya Stewart RN - 08/20/2024 8:30 AM CDT HYPERBARIC OXYGEN THERAPY TREATMENT # 28 2.0 Atmospheres Absolute for 90 minutes without air-breaks Chamber: Chamber Number: [id number] Patient presented wearing off loading device to right foot, ordered dressings in place. Vitals: 08/20/24 1035 BP: (!) 128/97 Pulse: 84 Temp: 36.7 ??C (98 ??F) SpO2: 95% Glucose Readings Pre Capillary Blood Glucose: 147 (Boost given) Post Capillary Blood Glucose: 165 Blood Glucose Reference Range: 65-95 If patient diabetic, was the Glycemia Interventions Protocol ordered by the physician? : Yes Hyperbaric Monitor Indications: Diabetic Kenney Grade 3 or Higher Treatment Start Time - Compression Begins at 1 ZAID: 0842 Rate Set PSI / Min: 1.5 Pressure Reached: 0853 ZAID: 2.0 Decompression Begins: 1023 Treatment End Time to 1 ZAID: 1032 Total Treatment Time: 110 Symptoms Noted During Treatment: None Hyperbaric Pre-Instpection [...] Wigs or Hair Pieces Removed: Yes Nail kazakh cured greater than 10 hours: Yes Personal [...] Associated attestation - Vilma Neves MD - 08/20/2024 12:11 PM CDT HBOT Physician Documentation: Wound Examined? [...] st Contact Info) Description 08/24/2024 8:30 AM LICENSED MASS REAL ESTATE APPRAISER Office Visit [facility] [address] [place] [phone] 08/24/2024 11:30 AM LICENSED MASS REAL ESTATE APPRAISER [facility] [address] [place] [address] Angel Coombs, DPM [address] [place] [phone] 08/25/2024 8:30 AM LICENSED MASS REAL ESTATE APPRAISER Office Visit [facility] [address] [place] [address] 08/26/2024 8:30 AM LICENSED MASS REAL ESTATE APPRAISER Office Visit [facility] Wound Care [address] [place] [address] 08/27/2024 8:30 AM LICENSED MASS REAL ESTATE APPRAISER Office Visit [facility] [address] [place] [phone] 08/27/2024 11:00 AM LICENSED MASS REAL ESTATE APPRAISER Office Visit [facility] [address] [place] [phone] [place] [address] [place] [phone] 08/28/2024 8:30 AM LICENSED MASS REAL ESTATE APPRAISER Office Visit [facility] [address] [place] [phone] 08/31/2024 8:30 AM LICENSED MASS REAL ESTATE APPRAISER Office Visit [facility] [address] [place] [phone] 09/01/2024 8:30 AM LICENSED MASS REAL ESTATE APPRAISER Office Visit [facility] [address] [place] [phone] 09/02/2024 8:30 AM LICENSED MASS REAL ESTATE APPRAISER Office Visit [facility] [address] [place] [phone] 09/03/2024 8:30 AM LICENSED MASS REAL ESTATE APPRAISER Office Visit [facility] [address] [place] [phone] 09/03/2024 11:00 AM LICENSED MASS REAL ESTATE APPRAISER Office Visit [facility] Wound Care [address] [place] [address] Vilma Neves MD [address] [place] [phone] 09/03/2024 11:00 AM LICENSED MASS REAL ESTATE APPRAISER Office Visit [facility] Infectious Disease [address] [place] [phone] Amairani Sigala MD [address] [place] [phone] 09/04/2024 8:30 AM LICENSED MASS REAL ESTATE APPRAISER Office Visit [facility] Wound Care [address] [place] [phone] 09/07/2024 8:30 AM LICENSED MASS REAL ESTATE APPRAISER Office Visit [facility] Wound Care [address] [place] [address] 09/08/2024 8:30 AM LICENSED MASS REAL ESTATE APPRAISER Office Visit [facility] Wound Care [address] [place] [phone] 09/09/2024 8:30 AM LICENSED MASS REAL ESTATE APPRAISER Office Visit [facility] Wound Care [address] [place] [phone] 09/10/2024 8:30 AM LICENSED MASS REAL ESTATE APPRAISER Office Visit [facility] [address] [place] [phone] 09/10/2024 11:20 AM LICENSED MASS REAL ESTATE APPRAISER Office Visit [facility] [address] [place] [phone] Vilma Neves MD [address] [place] [phone] 09/11/2024 8:30 AM LICENSED MASS REAL ESTATE APPRAISER Office Visit [facility] Wound Care [address] [place] [phone] 09/14/2024 8:30 AM LICENSED MASS REAL ESTATE APPRAISER Office Visit [facility] [address] [place] [address] 09/15/2024 8:30 AM LICENSED MASS REAL ESTATE APPRAISER Office Visit [facility] Wound Care [address] [place] [phone] documented as of this encounter Procedures Procedure Name Priority Date/Time Associated Diagnosis Comments POCT PRECISION GLUCOSE Routine 08/20/2024 10:42 AM CDT POCT PRECISION GLUCOSE Routine 08/20/2024 8:32 AM CDT documented in this encounter Results * (ABNORMAL) POCT Precision glucose (08/20/2024 10:42 AM CDT) Glucose Blood, POC 165(H) 70 - 100 mg/dL 08/20/2024 11:07 AM CDT [facility] Comment: Meter ID: [id number] Capillary whole blood specimens should not be [...] CARE TE ST DOCKED DEVICE UNSOLICITED RESULTS [facility] [address] [place] [address] * (ABNORMAL) POCT Precision glucose (08/20/2024 8:32 AM CDT) Glucose Blood, POC 147(H) 70 - 100 mg/dL 08/21/2024 2:48 AM CDT [facility] Comment: Meter ID: [id number] Capillary whole blood specimens should not be used in patients receiving intensive medical intervention/therapy because of the potential for pre-analytical collection error and specifically in patients with decreased peripheral blood flow, as it may not truly reflect the patient? s true physiological state. Examples include, but are not limited to, severe hypotension, shock, hyperosmolar-hyperglycemia (with or without ketosis), and severe dehydration. 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
--- OUTSIDE RECORDS SUMMARY | 2024-08-21 10:19 | XMS_ITS | Encounter Summary ---
Author Organization [facility] er Address [address] [place] [address] Care Team Providers Care Synthetic Department Supervisor Name Role Phone Thu Bhagat PA-C Primary Care Provider Reason for Visit * Reason Comments Wound Check * Consultation (Routine) - Authorized Specialty Diagnoses / Procedures Referred By Conteufemia t Referred To Contact Wound Care Diagnoses Cellulitis, unspecified Procedures Wound Clinic Thu Bhagat PA-C [address] [place] [phone] [facility] Wound Care [address] [place] [address] Referral ID Status Reason Start Date Expiration Date V isits Requested Visits Authorized [id number] Authorized 06/17/2024 12/15/2024 99 99 Encounter Details Date Type Department Care Team (Late st Contact Info) Description 08/18/2024 10:45 AM CDT Office Visit [facility] [address] [place] [address] [phone] [place] [address] [place] [phone] Diabetic ulcer of right midfoot associated [...] from your doctor or pharmacy? Never 06/06/2024 [facility] Utilities Answer Date Recorded In the past 12 months has e [employer], gas, oil, or water [employer] threatened to shut off services in your [...] you attend [facility] or temple services? More than 4 times per year 06/06/2024 Do you belong to any clubs o r organizations such as confucianist groups, unions, fraternal or athletic groups, or [...] Questionnaire-2 Score 0 06/06/2024 [facility] - Occupational [...] any time in the past 12 m [place], were you homeless or living in a [facility] (including now)? No 06/06/2024 Interpersonal Safety Questionnaire [...] on file documented as of this encounter Patient Instructions * Patient Instructions* Wanda Marquez RN - 08/18/2024 10:45 AM CDT Keep dressings clean and dry; call the wound clinic with any questions or concerns. documented in this encounter Progress Notes * Vilma Neves MD - 08/18/2024 10:45 AM CDT Advanced Wound Healing Visit Type: Established patient Subjective Francisco Javier Fung is a 69 y.o. male who presents today for wound check. 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 He is doing wellwith Urgo K2 30 to 40 mmHg compression. He is accompanied by his Nicki who assist with his medical appointments. Home health continues to come to his house twice a week. Patient maintains glycemic control. He is currently receiving oxygen adjuvant therapy and denies any headaches sinus pressure shortness of breath cough or chest pain. The following portions of the patient's history were reviewed by a provider in this encounter and updated as appropriate: Tobacco Allergies Meds Problems Med Hx Surg Hx Fam Hx Objective Visit Vitals Smoking Status Never Wound: Wound #1 right dorsal foot ulceration down to muscle, decreased tunneling depth, increased granulation, wound bed contraction, no undermining, wound bed contraction, overall improved Procedure Note: Wound #1 Time-out: 1222 Grafting: PuraPly AM 1.6 cm disc x 1 100% utilized, 1.6 cm?? total grafted Excisional debridement: muscle (outside wound margins to establish healthy tissue border) Character of Wound/Ulcer: Improved Procedural pain level: 0 Post procedure pain level: 0 Instrument used: curette Tissue / material removed: non-viable, subcutaneous, fat, slough, muscle EBL: minimum Hemostasis achieved by using: pressure Tissue Culture or DNA/PCR? no management per infectious disease Wound cleansing: saline / vashe Character of wound/ ulcer post debridement: improved Response to treatment: well tolerated Post procedure wound appearance: improved as evidence by fresh bleeding tissue Depth of debridement muscle Post debridement exposed structure(s): muscle involvement without evidence of necrosis Pre debridement measurements (cm's) L 4 cm W 0.4 cm D 0.6 cm total sq cm 1.6 cm^2 Post debridement measurements (cm's) L 4 cm W 0.4 cm D 0.7 cm total sq cm 1.6 cm^2 Assessment/Plan Diagnoses and all orders for this visit: Diabetic ulcer of right midfoot associated with type 2 diabetes mellitus, 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 total grafted Dressing: Promogran, drawtex Off-loading: Continue wheelchair, Aircast for transfers, Rooke boot Compression: Urgo K2 30 to 40 mmHg Antibiotics: Per infectious disease Glucose optimization: Type 2 diabetes mellitus with glycemic control. Continue working with PCP Details of today???s visit were discussed in detail as well as plan moving forward. The patient agrees with the proposed plan. Any and all questions and concerns regarding wound management were addressed at the conclusion of the visit. Recommend continuing HBO at this time as patient continues to show weekly improvement including wound bed contraction, decreased swelling edema, glycemic control increase protein intake, offloading 100%, weekly debridements advanced dressings including antimicrobial collagen and antimicrobial foam due to grafting and negative pressure wound therapy along with antibiotics prescribed by infectious disease. Return to the wound clinic: 1 week Vilma Neves MD documented in this encounter Plan of Treatment Upcoming Encounters Date Type Department Care Team (Late st Contact Info) Description 08/24/2024 8:30 AM EMPLOYEE COMMUNICATIONS MANAGER Office Visit [facility] [address] [place] [address] 08/24/2024 11:30 AM EMPLOYEE COMMUNICATIONS MANAGER Office Visit [facility] [address] [address] Angel Coombs, DPM [address] [place] [phone] 08/25/2024 8:30 AM EMPLOYEE COMMUNICATIONS MANAGER Office Visit [facility] [address] [place] [phone] 08/26/2024 8:30 AM EMPLOYEE COMMUNICATIONS MANAGER Office Visit [facility] [address] [place] [address] 08/27/2024 8:30 AM EMPLOYEE COMMUNICATIONS MANAGER Office Visit [facility] [address] [place] [address] 08/27/2024 11:00 AM EMPLOYEE COMMUNICATIONS MANAGER Office Visit [facility] [address] [place] [phone] Vilma Neves MD [address] [place] [phone] 08/28/2024 8:30 AM EMPLOYEE COMMUNICATIONS MANAGER Office Visit [facility] [address] [place] [address] 08/31/2024 8:30 AM EMPLOYEE COMMUNICATIONS MANAGER Office Visit [facility] [address] [place] [phone] 09/01/2024 8:30 AM EMPLOYEE COMMUNICATIONS MANAGER Office Visit [facility] [address] [place] [address] 09/02/2024 8:30 AM EMPLOYEE COMMUNICATIONS MANAGER Office Visit [facility] [address] [place] [phone] 09/03/2024 8:30 AM EMPLOYEE COMMUNICATIONS MANAGER [facility] Visit [facility] [address] [place] [phone] 09/03/2024 11:00 AM EMPLOYEE COMMUNICATIONS MANAGER Office Visit [facility] [address] [place] [phone] Vilma Neves MD [address] [place] [phone] 09/03/2024 11:00 AM EMPLOYEE COMMUNICATIONS MANAGER Office Visit [facility] Infectious Disease [address] [place] [phone] Amairani Sigala MD [address] [place] [phone] 09/04/2024 8:30 AM EMPLOYEE COMMUNICATIONS MANAGER Office Visit [facility] Wound Care [address] [place] [phone] 09/07/2024 8:30 AM EMPLOYEE COMMUNICATIONS MANAGER Office Visit [facility] Wound Care [address] [place] [address] 09/08/2024 8:30 AM EMPLOYEE COMMUNICATIONS MANAGER Office Visit [facility] [address] [place] [phone] 09/09/2024 8:30 AM EMPLOYEE COMMUNICATIONS MANAGER Office Visit [facility] [address] [place] [address] 09/10/2024 8:30 AM EMPLOYEE COMMUNICATIONS MANAGER Office Visit [facility] Wound Care [address] [place] [phone] 09/10/2024 11:20 AM EMPLOYEE COMMUNICATIONS MANAGER Office Visit [facility] [address] [place] [phone] Vilma Neves MD [address] [place] [phone] 09/11/2024 8:30 AM EMPLOYEE COMMUNICATIONS MANAGER Office Visit [facility] Wound Care [address] [place] [phone] 09/14/2024 8:30 AM EMPLOYEE COMMUNICATIONS MANAGER Office Visit [facility] Wound Care [address] [place] [address] 09/15/2024 8:30 AM EMPLOYEE COMMUNICATIONS MANAGER Office Visit [facility] Wound Care [address] [place] [address] documented as of this encounter Visit Diagnoses Diagnosis Diabetic ulcer of right midfoot associated with type 2 diabetes mellitus, 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
--- OUTSIDE RECORDS SUMMARY | 2024-08-21 10:20 | XMS_ITS | Encounter Summary ---
Author Organization [facility] er Address [address] [place] [id number] Care Team Providers Care Proposal Coordinator Name Role Phone Thu Bhagat PA-C Primary Care Provider Reason for Visit * Reason Comments HBO * Consultation (Routine) - Authorized Specialty Diagnoses / Procedures Referred By Contac t Referred To Contact Wound Care Diagnoses Type 2 diabetes mellitus with foot ulcer Procedures Wound Care HBOT Thu Bhagat PA-C [address] [place] [address] [facility] Wound Care [address] [place] [address] Referral ID Status Reason Start Date Expiration Date V isits Requested Visits Authorized [id number] Authorized 07/02/2024 10/11/2024 99 99 Encounter Details Date Type Department Care Team (Late st Contact Info) Description 08/04/2024 8:30 AM CDT Office Visit [facility] [address] [place] [phone] [place] [address] [place] [phone] Diabetic ulcer of right midfoot associated [...] doctor or pharmacy? Never 06/06/2024 [facility] Utilities Answer Date Recorded In the past 12 months has e [employer], gas, oil, or water company threatened to [...] week 06/06/2024 How often do you attend [facility] or holiness services? More than 4 times per year 06/06/2024 Do you belong to any clubs o r organizations such as oriental orthodox groups, unions, fraternal or athletic groups, or [...] Recorded Patient Health Questionnaire-2 Score 0 06/06/2024 [facility] - Occupational Stress Questionnaire Answer [...] time in the past 12 m [facility], were you homeless or living in a detention (including now)? No 06/06/2024 Interpersonal Safety Questionnaire [...] Sign Reading Time Taken Comments Blood Pressure 130/87 08/04/2024 10:00 AM CDT Pulse 73 08/04/2024 10:00 AM CDT Temperature 35.9 ??C (96.7 ??F) 08/04/2024 10:00 AM C DT Respiratory Rate 18 08/04/2024 10:00 AM CDT Oxygen Saturation - - Inhaled Oxygen Concentration - - Weight - - Height - - Body Mass Index - - documented in this encounter Progress Notes * Karley Dickens, RAMÓN - 08/04/2024 8:30 AM CDT HYPERBARIC OXYGEN THERAPY TREATMENT # 16 2.0 Atmospheres Absolute for 90 minutes without air-breaks Chamber: Chamber Number: [id number] Patient presented wearing off loading device to right foot, ordered dressings in place. Vitals: 08/04/24 1000 BP: 130/87 Pulse: 73 Resp: 18 Temp: (!) 35.9 ??C (96.7 ??F) Glucose Readings Pre Capillary Blood Glucose: 151 Post Capillary Blood Glucose: 102 Blood Glucose Reference Range: 65-95 If patient diabetic, was the Glycemia Interventions Protocol ordered by the physician? : Yes Hyperbaric Monitor Indications: Diabetic Kenney Grade 3 or Higher Treatment Start Time - Compression Begins at 1 ZAID: 0849 Rate Set PSI / Min: 2 Pressure Reached: 0856 ZAID: 2.0 Decompression Begins: 1027 Treatment End Time to 1 ZAID: 1035 Total Treatment Time: 106 Symptoms Noted During Treatment: None Hyperbaric Pre-Instpection Hyperbaric Pre-Inspection Consent Obtained: Yes Is there a TCOM ordered for the patient?: Completed Patient voided/noonan secured and emptied: Yes When did the patient last eat?: 0720 Last dose of injectable or oral hypoglycemic agent: 0710 Ostomy pouch emptied and vented (if applicable): N/A All implantable devices assessed, documented, and approved: N/A Intravenous access site secured and placed: N/A Valuables secured: Yes Linens are cotton: Yes Cotton Gown: Yes Glasses Removed: Yes Jewelery Removed: Yes Makeup Removed: Yes Hair Care Products Removed: Yes Wigs or Hair Pieces Removed: Yes Nail tajik cured greater than 10 hours: Yes Personal [...] Associated attestation - Vilma Neves MD - 08/04/2024 1:27 PM CDT HBOT Physician Documentation: Wound Examined? [...] st Contact Info) Description 08/24/2024 8:30 AM SOFTWARE PACKAGING ENGINEER Office Visit [facility] [address] [place] [phone] 08/24/2024 11:30 AM SOFTWARE PACKAGING ENGINEER Office Visit [facility] [address] [place] [address] Angel Coombs, DPHang [address] [place] [phone] 08/25/2024 8:30 AM SOFTWARE PACKAGING ENGINEER Office Visit [facility] [address] [place] [address] 08/26/2024 8:30 AM SOFTWARE PACKAGING ENGINEER Office Visit [facility] [address] [place] [address] 08/27/2024 8:30 AM SOFTWARE PACKAGING ENGINEER Office Visit [facility] [address] [place] [address] 08/27/2024 11:00 AM SOFTWARE PACKAGING ENGINEER Office Visit [facility] [address] [place] [address] Vilma Neves MD [address] [place] [phone] 08/28/2024 8:30 AM SOFTWARE PACKAGING ENGINEER Office Visit [facility] [address] [place] [address] 08/31/2024 8:30 AM SOFTWARE PACKAGING ENGINEER Office Visit [facility] [address] [place] [address] 09/01/2024 8:30 AM SOFTWARE PACKAGING ENGINEER Office Visit [facility] [address] [place] [phone] 09/02/2024 8:30 AM SOFTWARE PACKAGING ENGINEER Office Visit [facility] [address] [place] [address] 09/03/2024 8:30 AM SOFTWARE PACKAGING ENGINEER Office Visit [facility] [address] [place] [address] 09/03/2024 11:00 AM SOFTWARE PACKAGING ENGINEER Office Visit [facility] [address] [place] [address] Vilma Neves MD [address] [place] [phone] 09/03/2024 11:00 AM SOFTWARE PACKAGING ENGINEER Office Visit [facility] Infectious Disease [address] [place] [address] Amairani Sigala MD [address] [place] [phone] 09/04/2024 8:30 AM SOFTWARE PACKAGING ENGINEER Office Visit [facility] Wound Care [address] [place] [address] 09/07/2024 8:30 AM SOFTWARE PACKAGING ENGINEER Office Visit [facility] [address] [place] [phone] 09/08/2024 8:30 AM SOFTWARE PACKAGING ENGINEER Office Visit [facility] [address] [place] [address] 09/09/2024 8:30 AM SOFTWARE PACKAGING ENGINEER Office Visit [facility] [address] [place] [address] 09/10/2024 8:30 AM SOFTWARE PACKAGING ENGINEER Office Visit [facility] [address] [place] [address] 09/10/2024 11:20 AM SOFTWARE PACKAGING ENGINEER Office Visit [facility] [address] [place] [phone] Vilma Neves MD [address] [place] [phone] 09/11/2024 8:30 AM SOFTWARE PACKAGING ENGINEER Office Visit [facility] [address] [place] [address] 09/14/2024 8:30 AM SOFTWARE PACKAGING ENGINEER Office Visit [facility] [address] [place] [address] 09/15/2024 8:30 AM SOFTWARE PACKAGING ENGINEER Office Visit [facility] Wound Care [address] [place] [address] documented as of this encounter Procedures Procedure Name Priority Date/Time Associated Diagnosis Comments POCT PRECISION GLUCOSE Routine 08/04/2024 10:40 AM CDT POCT PRECISION GLUCOSE Routine 08/04/2024 8:34 AM CDT documented in this encounter Results * (ABNORMAL) POCT Precision glucose (08/04/2024 10:40 AM CDT) Glucose Blood, POC 102(H) 70 - 100 mg/dL 08/04/2024 10:41 AM CDT [facility] Comment: Meter ID: [id number] Capillary whole blood specimens should not be used in patients receiving intensive medical intervention/therapy because of the potential for pre-analytical collection error and specifically in patients with decreased peripheral blood flow, as it may not truly reflect the patient? s true physiological state. Examples include, but are not limited to, severe hypotension, shock, hyperosmolar-hyperglycemia (with or without ketosis), and severe dehydration. 08/04/2024 10:4 0 AM CDT 08/04/2024 10:42 AM CDT Thu MERIDA-Ena LAB POINT OF CARE TE ST DOCKED DEVICE UNSOLICITED RESULTS [facility] [address] [place] [address] * (ABNORMAL) POCT Precision glucose (08/04/2024 8:34 AM CDT) Glucose Blood, POC 151(H) 70 - 100 mg/dL 08/04/2024 8:36 AM CDT [facility] Comment: Meter ID: [id number] Capillary whole blood specimens should not be used in patients receiving intensive medical intervention/therapy because of the potential for pre-analytical collection error and specifically in patients with decreased peripheral blood flow, as it may not truly reflect the patient? s true physiological state. Examples include, but are not limited to, severe hypotension, shock, hyperosmolar-hyperglycemia (with or without ketosis), and severe dehydration. 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
--- OUTSIDE RECORDS SUMMARY | 2024-08-21 10:20 | XMS_ITS | Encounter Summary ---
Author Organization [facility] er Address [address] [place] [address] Care Team Providers Care Banjo Repair Person Name Role Phone Thu Bhagat PA-C Primary Care Provider [phone] Reason for Visit * Reason Comments HBO * Consultation (Routine) - Authorized Specialty Diagnoses / Procedures Referred By Contac t Referred To Contact Wound Care Diagnoses Type 2 diabetes mellitus with foot ulcer Procedures Wound Care HBOT Thu Bhagat PA-C [address] [place] [address] [facility] Wound Care [address] [place] [address] Referral ID Status Reason Start Date Expiration Date V isits Requested Visits Authorized [id number] Authorized 07/02/2024 10/11/2024 99 99 Encounter Details Date Type Department Care Team (Late st Contact Info) Description 08/10/2024 8:30 AM CDT Office Visit [facility] [address] [place] [address] [place] [address] [place] [phone] Diabetic ulcer of right midfoot associated [...] from your doctor or pharmacy? Never 06/06/2024 [facility] Utilities Answer Date Recorded In the past 12 months has e [employer], gas, oil, or water company threatened to [...] 06/06/2024 How often do you attend [facility] or roman catholic services? More than 4 times per year 06/06/2024 Do you belong to any clubs o r organizations such as episcopalian groups, unions, fraternal or athletic groups, or [...] Recorded Patient Health Questionnaire-2 Score 0 06/06/2024 [facility] - Occupational Stress Questionnaire Answer [...] any time in the past 12 m [facility], were you homeless or living in a skilled nursing (including now)? No 06/06/2024 Interpersonal Safety Questionnaire [...] Sign Reading Time Taken Comments Blood Pressure 125/88 08/10/2024 10:52 AM CDT Pulse 94 08/10/2024 10:52 AM CDT Temperature 36.4 ??C (97.6 ??F) 08/10/2024 10:52 AM C DT Respiratory Rate - - Oxygen Saturation 96% 08/10/2024 10:52 AM CDT Inhaled Oxygen Concentration - - Weight - - Height - - Body Mass Index - - documented in this encounter Progress Notes * Riya Stewart RN - 08/10/2024 8:30 AM CDT HYPERBARIC OXYGEN THERAPY TREATMENT # 20 2.0 Atmospheres Absolute for 90 minutes without air-breaks Chamber: Chamber Number: [id number] Patient presented wearing off loading device to right foot, ordered dressings in place. Vitals: 08/10/24 1052 BP: 125/88 Pulse: 94 Temp: 36.4 ??C (97.6 ??F) SpO2: 96% Glucose Readings Pre Capillary Blood Glucose: 153 Post Capillary Blood Glucose: 130 Blood Glucose Reference Range: 65-95 If patient diabetic, was the Glycemia Interventions Protocol ordered by the physician? : Yes Hyperbaric Monitor Indications: Diabetic Kenney Grade 3 or Higher Treatment Start Time - Compression Begins at 1 ZAID: 0900 Rate Set PSI / Min: 1.5 Pressure Reached: 0910 ZAID: 2.0 Decompression Begins: 1040 Treatment End Time to 1 ZAID: 1050 Total Treatment Time: 110 Symptoms Noted During [...] Wigs or Hair Pieces Removed: Yes Nail kinyarwanda cured greater than 10 hours: Yes Personal [...] Associated attestation - Vilma Neves MD - 08/10/2024 2:54 PM CDT HBOT Physician Documentation: Wound Examined? [...] noted in wound visit note each week Utilization review: 1. Wound is progressing well 2. Treatments being done to the wound include weekly debridements, xenograft including Kerecis, antimicrobial collagen and foam 3. Patient is currently on Duricef prescribed by infectious disease was previously on ertapenem 4. 100% not weightbearing using wheelchair and wearing Rooke boot 5. Due to significant clinical improvements, recommend patient continue with HBO documented in this encounter Plan of Treatment Upcoming Encounters Date Type Department Care Team (Late st Contact Info) Description 08/24/2024 8:30 AM BOOM WORKER Office Visit [facility] Wound Care [address] [place] [phone] 08/24/2024 11:30 AM BOOM WORKER Office Visit Podiatry [address] [place] [address] Angel Coombs DPM [address] [place] [phone] 08/25/2024 8:30 AM BOOM WORKER Office Visit [facility] Wound Care [address] [place] [address] 08/26/2024 8:30 AM BOOM WORKER Office Visit [facility] Wound Care [address] [place] [phone] 08/27/2024 8:30 AM BOOM WORKER Office Visit [facility] Wound Care [address] [place] [phone] 08/27/2024 11:00 AM BOOM WORKER Office Visit [facility] Wound Care [address] [place] [phone] Vilma Neves MD [address] [place] [phone] 08/28/2024 8:30 AM BOOM WORKER Office Visit [facility] Wound Care [address] [place] [address] 08/31/2024 8:30 AM BOOM WORKER Office Visit [facility] Wound Care [address] [place] [address] 09/01/2024 8:30 AM BOOM WORKER Office Visit [facility] Wound Care [address] [place] [address] 09/02/2024 8:30 AM BOOM WORKER Office Visit [facility] [address] [place] [address] 09/03/2024 8:30 AM BOOM WORKER Office Visit [facility] Wound Care [address] [place] [phone] 09/03/2024 11:00 AM BOOM WORKER Office Visit [facility] Wound Care [address] [place] [address] Vilma Neves MD [address] [place] [phone] 09/03/2024 11:00 AM BOOM WORKER Office Visit [facility] Infectious Disease [address] [place] [address] Amairani Sigala MD [address] [place] [phone] 09/04/2024 8:30 AM BOOM WORKER Office Visit [facility] W[facility] [address] [place] [address] 09/07/2024 8:30 AM BOOM WORKER Office Visit [facility] Wound Care [address] [place] [phone] 09/08/2024 8:30 AM BOOM WORKER Office Visit [facility] [address] [place] [address] 09/09/2024 8:30 AM BOOM WORKER Office Visit [facility] W[facility] [address] [place] [phone] 09/10/2024 8:30 AM BOOM WORKER Office Visit [facility] W[facility] [address] [place] [phone] 09/10/2024 11:20 AM BOOM WORKER Office Visit [facility] [address] [place] [phone] Vilma Neves MD [address] [place] [phone] 09/11/2024 8:30 AM BOOM WORKER Office Visit [facility] Wound Care [address] [place] [address] [phone] 09/14/2024 8:30 AM BOOM WORKER Office Visit [facility] Wound Care [address] [place] [address] [phone] 09/15/2024 8:30 AM BOOM WORKER Office Visit [facility] Wound Care [address] [place] [address] [phone] documented as of this encounter Procedures Procedure Name Priority Date/Time Associated Diagnosis Comments POCT PRECISION GLUCOSE Routine 08/10/2024 10:59 AM CDT POCT PRECISION GLUCOSE Routine 08/10/2024 8:44 AM CDT documented in this encounter Results * (ABNORMAL) POCT Precision glucose (08/10/2024 10:59 AM CDT) Glucose Blood, POC 130(H) 70 - 100 mg/dL 08/10/2024 11:00 AM CDT [facility] Comment: Meter ID: [id number] Capillary whole blood specimens should not be used in patients receiving intensive medical intervention/therapy because of the potential for pre-analytical collection error and specifically in patients with decreased peripheral blood flow, as it may not truly reflect the patient? s true physiological state. Examples include, but are not limited to, severe hypotension, shock, hyperosmolar-hyperglycemia (with or without ketosis), and severe dehydration. 08/10/2024 10:5 9 AM CDT 08/10/2024 11:00 AM CDT Thu Bhagat PA-C LAB POINT OF CARE TE ST DOCKED DEVICE UNSOLICITED RESULTS [facility] [address] [place] [phone] * (ABNORMAL) POCT Precision glucose (08/10/2024 8:44 AM CDT) Glucose Blood, POC 153(H) 70 - 100 mg/dL 08/10/2024 8:44 AM CDT [facility] Comment: Meter ID: [id number] Capillary whole blood specimens should not be used in patients receiving intensive medical intervention/therapy because of the potential for pre-analytical collection error and specifically in patients with decreased peripheral blood flow, as it may not truly reflect the patient? s true physiological state. Examples include, but are not limited to, severe hypotension, shock, hyperosmolar-hyperglycemia (with or without ketosis), and severe dehydration. 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
--- OUTSIDE RECORDS SUMMARY | 2024-08-21 10:20 | XMS_ITS | Encounter Summary ---
Author Organization [facility] er Address [address] [place] [address] Care Team Providers Care Exhibitions And Collections Manager Name Role Phone Thu Bhagat PA-C Primary Care Provider Reason for Visit * Reason Comments HBO * Consultation (Routine) - Authorized Specialty Diagnoses / Procedures Referred By Contac t Referred To Contact Wound Care Diagnoses Type 2 diabetes mellitus with foot ulcer Procedures Wound Care HBOT Thu Bhagat PA-C [address] [place] [phone] [facility] Wound Care [address] [place] [address] Referral ID Status Reason Start Date Expiration Date V isits Requested Visits Authorized [id number] Authorized 07/02/2024 10/11/2024 99 99 Encounter Details Date Type Department Care Team (Late st Contact Info) Description 08/03/2024 8:30 AM CDT Office Visit [facility] [address] [place] [address] [place] [address] [place] [phone] Diabetic ulcer of right midfoot associated [...] doctor or pharmacy? Never 06/06/2024 [facility] Utilities Answer Date Recorded In the past 12 months has e [employer], gas, oil, or water company threatened to [...] 06/06/2024 How often do you attend [facility] or gnosticism services? More than 4 times per year 06/06/2024 Do you belong to any clubs o r organizations such as presybeterian groups, unions, fraternal or athletic groups, or [...] Recorded Patient Health Questionnaire-2 Score 0 06/06/2024 [facility] - Occupational Stress Questionnaire Answer Date [...] any time in the past 12 m [facility], were you homeless or living in a [...] Sign Reading Time Taken Comments Blood Pressure 123/85 08/03/2024 10:47 AM CDT Pulse 80 08/03/2024 10:47 AM CDT Temperature 36.1 ??C (97 ??F) 08/03/2024 10:47 AM CDT Respiratory Rate - - Oxygen Saturation 96% 08/03/2024 10:47 AM CDT Inhaled Oxygen Concentration - - Weight - - Height - - Body Mass Index - - documented in this encounter Progress Notes * Rocco Couch PA-C - 08/03/2024 8:30 AM CDT HYPERBARIC OXYGEN THERAPY TREATMENT # 15 2.0 Atmospheres Absolute for 90 minutes without air-breaks Chamber: Chamber Number: [id number] Patient presented wearing off loading device to right foot, ordered dressings in place. Vitals: 08/03/24 1047 BP: 123/85 Pulse: 80 Temp: 36.1 ??C (97 ??F) SpO2: 96% Glucose Readings Pre Capillary Blood Glucose: 185 Post Capillary Blood Glucose: 161 Blood Glucose Reference Range: 65-95 If patient diabetic, was the Glycemia Interventions Protocol ordered by the physician? : Yes Hyperbaric Monitor Indications: Diabetic Kenney Grade 3 or Higher Treatment Start Time - Compression Begins at 1 ZAID: 0854 Rate Set PSI / Min: 1.5 Pressure Reached: 0904 ZAID: 2.0 Decompression Begins: 1034 Treatment End Time to 1 ZAID: 1044 Total Treatment Time: 110 Symptoms Noted During Treatment: None Hyperbaric Pre-Instpection Hyperbaric Pre-Inspection Consent Obtained: Yes Is there a TCOM ordered for the patient?: Completed Patient voided/noonan secured and emptied: Yes When did the patient last eat?: 719 Last dose of injectable or oral hypoglycemic agent: 709 Ostomy pouch emptied and vented (if applicable): N/A All implantable devices assessed, documented, and approved: N/A Intravenous access site secured and placed: N/A Valuables secured: Yes Linens are cotton: Yes Cotton Gown: Yes Glasses Removed: Yes Jewelery Removed: Yes Makeup Removed: Yes Hair Care Products Removed: Yes Wigs or Hair Pieces Removed: Yes Nail mongolian cured greater than 10 hours: Yes Personal [...] (per provider) Right Irrigated: No (per provider) HBOT Physician-Employment Supervisor Documentation: Wound Examined? No. Please see weekly wound visit note for detailed wound findings for this corresponding week Patient Cleared for HBO? Yes Continue HBO? Yes TEED Score:0 Pre-Treatment 0 Post Treatment 0 PE Tubes? No Myringotomy Performed? No Breath Sounds: CTAB Other Notes: Recommend continuing with HBOT as wound is progressing well as noted in wound visit note each week Patient presents today for Hyperbaric Oxygen Therapy today for treatment of their wound. Patient reports they feel well and has no complaints regarding wound discomfort or drainage today. Patient reports feeling well and is having no ear or sinus pain or problems with dives, nor any problems with sinus or ear problems today. Patient is diabetic. Blood sugars pre and post dive are within normal range to participate in dive. Rocco Couch PA-C Associated attestation - Vilma Neves MD - 08/04/2024 7:53 AM CDT 69-year-old male with right foot DFU Kenney 3 showing clinical improvement with oxygen adjuvant therapy offloading with wheelchair work boot and Aircast. Continued clinical improvement weekly. Xenograft and with Kerecis going well. documented in this encounter Plan of Treatment Upcoming Encounters Date Type Department Care Team (Late st Contact Info) Description 08/24/2024 8:30 AM MANAGER MECHANICAL Office Visit [facility] W[facility] [address] [place] [address] 08/24/2024 11:30 AM MANAGER MECHANICAL Office Visit Podiatry [address] [place] [address] Angel Coombs DPM [address] [place] [phone] 08/25/2024 8:30 AM MANAGER MECHANICAL Office Visit [facility] [address] [place] [phone] 08/26/2024 8:30 AM MANAGER MECHANICAL Office Visit [facility] [address] [place] [phone] 08/27/2024 8:30 AM MANAGER MECHANICAL Office Visit [facility] [address] [place] [phone] 08/27/2024 11:00 AM MANAGER MECHANICAL Office Visit [facility] [address] [place] [address] Vilma Neves MD [address] [place] [phone] 08/28/2024 8:30 AM MANAGER MECHANICAL Office Visit [facility] [address] [place] [address] 08/31/2024 8:30 AM MANAGER MECHANICAL Office [facility] [address] [place] [address] 09/01/2024 8:30 AM MANAGER MECHANICAL Office Visit [facility] [address] [place] [phone] 09/02/2024 8:30 AM MANAGER MECHANICAL Office Visit [facility] [address] [place] [address] 09/03/2024 8:30 AM MANAGER MECHANICAL Office Visit [facility] [address] [place] [phone] 09/03/2024 11:00 AM MANAGER MECHANICAL Office Visit [facility] [address] [place] [phone] Vilma Neves MD [address] [place] [phone] 09/03/2024 11:00 AM MANAGER MECHANICAL Office Visit [facility] Infectious Disease [address] [place] [address] Amairani Sigala MD [address] [place] [phone] 09/04/2024 8:30 AM MANAGER MECHANICAL Office Visit [facility] [address] [place] [phone] 09/07/2024 8:30 AM MANAGER MECHANICAL Office Visit [facility] [address] [place] [phone] 09/08/2024 8:30 AM MANAGER MECHANICAL Office Visit [facility] [address] [place] [phone] 09/09/2024 8:30 AM MANAGER MECHANICAL Office Visit [facility] [address] [place] [phone] 09/10/2024 8:30 AM MANAGER MECHANICAL Office Visit [facility] [address] [place] [phone] 09/10/2024 11:20 AM MANAGER MECHANICAL Office Visit [facility] [address] [place] [address] [place] [address] [place] [phone] 09/11/2024 8:30 AM MANAGER MECHANICAL Office Visit [facility] [address] [place] [address] 09/14/2024 8:30 AM MANAGER MECHANICAL Office Visit [facility] [address] [place] [address] [phone] 09/15/2024 8:30 AM MANAGER MECHANICAL Office Visit [facility] [address] [place] [address] [phone] documented as of this encounter Procedures Procedure Name Priority Date/Time Associated Diagnosis Comments POCT PRECISION GLUCOSE Routine 08/03/2024 10:52 AM CDT POCT PRECISION GLUCOSE Routine 08/03/2024 8:39 AM CDT documented in this encounter Results * (ABNORMAL) POCT Precision glucose (08/03/2024 10:52 AM CDT) [facility] Glucose Blood, POC 161(H) 70 - 100 mg/dL 08/03/2024 10:53 AM CDT [facility] Comment: Meter ID: [id number] Capillary whole blood specimens should not be used in patients receiving intensive medical intervention/therapy because of the potential for pre-analytical collection error and specifically in patients with decreased peripheral blood flow, as it may not truly reflect the patient? s true physiological state. Examples include, but are not limited to, severe hypotension, shock, hyperosmolar-hyperglycemia (with or without ketosis), and severe dehydration. 08/03/2024 10:5 2 AM CDT 08/03/2024 10:53 AM CDT Thu Bhagat PA-C LAB POINT OF CARE TE ST DOCKED DEVICE UNSOLICITED RESULTS [facility] [address] [place] [address] * (ABNORMAL) POCT Precision glucose (08/03/2024 8:39 AM CDT) Glucose Blood, POC 185(H) 70 - 100 mg/dL 08/03/2024 8:40 AM CDT [facility] Comment: Meter ID: [id number] Capillary whole blood specimens should not be used in patients receiving intensive medical intervention/therapy because of the potential for pre-analytical collection error and specifically in patients with decreased peripheral blood flow, as it may not truly reflect the patient? s true physiological state. Examples include, but are not limited to, severe hypotension, shock, hyperosmolar-hyperglycemia (with or without ketosis), and severe dehydration. 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
--- OUTSIDE RECORDS SUMMARY | 2024-08-21 10:20 | XMS_ITS | Encounter Summary ---
Author Organization [facility] er Address [address] [place] [address] Care Team Providers Care Adult Manager Name Role Phone Thu Bhagat PA-C Primary Care Provider [phone] Reason for Visit * Reason Comments Wound Check * Consultation (Routine) - Authorized Specialty Diagnoses / Procedures Referred By Conteufemia t Referred To Contact Wound Care Diagnoses Cellulitis, unspecified Procedures Wound Clinic Thu Bhagat PA-C [address] [place] [phone] [facility] [address] [place] [address]290 Referral ID Status Reason Start Date Expiration Date V isits Requested Visits Authorized [id number] Authorized 06/17/2024 12/15/2024 99 99 Encounter Details Date Type Department Care Team (Late st Contact Info) Description 08/11/2024 10:45 AM CDT Office Visit [facility] [address] [place] [address] [phone] [place] [address] [place] [phone] Diabetic ulcer of right midfoot associated [...] from your doctor or pharmacy? Never 06/06/2024 [facility] Utilities Answer Date Recorded In the past 12 months has e [employer], gas, oil, or water [employer] threatened to shut off services in your [...] 06/06/2024 How often do you attend [facility] or orthodoxy services? More than 4 times per year 06/06/2024 Do you belong to any clubs o r organizations such as mormonism groups, unions, fraternal or athletic groups, or [...] Recorded Patient Health Questionnaire-2 Score 0 06/06/2024 [facility] - Occupational [...] * Patient Instructions* Wanda Marquez RN - 08/11/2024 10:45 AM CDT Keep dressings clean and dry; call the wound clinic with any questions or concerns. documented in this encounter Progress Notes * Vilma Neves MD - 08/11/2024 10:45 AM CDT Advanced Wound Healing Visit Type: Established patient Subjective Francisco Javier Fung is a 69 y.o. male who presents today for wound check. 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 He is currently doing well on oxygen adjuvant therapy and denies any headaches, sinus pressure, ear pain, shortness of breath or chest pain. He is offloading with a wheelchair Aircast and Rooke boot. Patient is accompanied by his who assist with his medical appointments and HBO rides. Patient maintainsglycemic control. No wound or dressing concerns. He previously underwent Jose grafting with Kerecis. The following portions of the patient's history were reviewed by a provider in this encounter and updated as appropriate: Tobacco Allergies Meds Problems Med Hx Surg Hx Fam Hx Objective Visit Vitals Smoking Status Never Wound: Wound #1 right dorsal foot ulceration down to muscle and central portion of ulcer with tunneling, decreased tunneling, increased granulation, periwound scarring, decreased/resolved edema and swelling, overall improved Procedure Note: Wound #1 Time-out: 1117 Grafting: Kerecis 4 cm?? micronized, 100% utilized, 2.94 cm?? 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 micronized, 100% utilized, 2.94 cm?? total grafted Dressing: Promogran, Mepilex white foam Off-loading: Continue wheelchair, Aircast for transfers, Rooke boot Compression: Okay for full compression. No evidence of PAD on ANNA Antibiotics: Per infectious disease Glucose optimization: Annual glycemic control. Continue working with PCP Details [...] st Contact Info) Description 08/24/2024 8:30 AM ARRESTING GEAR OPERATOR Office Visit [facility] [address] [place] [address] 08/24/2024 11:30 AM ARRESTING GEAR OPERATOR Office Visit [facility] [address] [place] [address] Angel Coombs, DPM [address] [place] [phone] 08/25/2024 8:30 AM ARRESTING GEAR OPERATOR Office Visit [facility] [address] [place] [address] 08/26/2024 8:30 AM ARRESTING GEAR OPERATOR Office Visit [facility] [address] [place] [address] 08/27/2024 8:30 AM ARRESTING GEAR OPERATOR Office Visit [facility] [address] [place] [address] 08/27/2024 11:00 AM ARRESTING GEAR OPERATOR Office Visit [facility] [address] [place] [phone] [place] [address] [place] [phone] 08/28/2024 8:30 AM ARRESTING GEAR OPERATOR Office Visit [facility] [address] [place] [address] 08/31/2024 8:30 AM ARRESTING GEAR OPERATOR Office Visit [facility] [address] [place] [address] 22078 09/01/2024 8:30 AM ARRESTING GEAR OPERATOR Office Visit [facility] [address] [place] [address] 09/02/2024 8:30 AM ARRESTING GEAR OPERATOR Office Visit [facility] [address] [place] [address] 09/03/2024 8:30 AM ARRESTING GEAR OPERATOR Office Visit [facility] W[facility] [address] [place] [address] 09/03/2024 11:00 AM ARRESTING GEAR OPERATOR Office Visit [facility] [address] [place] [address] 164[address] Vilma Neves MD [address] [place] [address] [phone] 09/03/2024 11:00 AM ARRESTING GEAR OPERATOR Office Visit [facility] Infectious Disease [address] [place] [phone] Amairani Sigala MD [address] [place] [phone] 09/04/2024 8:30 AM ARRESTING GEAR OPERATOR Office Visit [facility] Care [address] [place] [address] 275[address] 09/07/2024 8:30 AM ARRESTING GEAR OPERATOR Office Visit [facility] [address] [place] [address] [phone] 09/08/2024 8:30 AM ARRESTING GEAR OPERATOR Office Visit [facility] [address] [place] [address] [phone] 09/09/2024 8:30 AM ARRESTING GEAR OPERATOR Office Visit [facility] [address] [place] [phone] 09/10/2024 8:30 AM ARRESTING GEAR OPERATOR Office Visit [facility] [address] [place] [phone] 09/10/2024 11:20 AM ARRESTING GEAR OPERATOR Office Visit [facility] [address] [place] [phone] Vilma Neves MD [address] [place] [phone] 09/11/2024 8:30 AM ARRESTING GEAR OPERATOR Office Visit [facility] [address] [place] [address] [phone] 09/14/2024 8:30 AM ARRESTING GEAR OPERATOR Office Visit [facility] Care [address] [place] [address]16[address] 09/15/2024 8:30 AM ARRESTING GEAR OPERATOR Office Visit [facility] [address] [place] [address] [phone] documented as of this encounter Visit Diagnoses Diagnosis Diabetic ulcer of right midfoot associated with type 2 diabetes mellitus, 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
--- OUTSIDE RECORDS SUMMARY | 2024-08-21 10:20 | XMS_ITS | Encounter Summary ---
Author Organization [facility] er Address [address] [place] [address] Care Team Providers Care Matting Press Tender Name Role Phone Thu Bhagat PA-C Primary Care Provider Reason for Visit * Reason Comments HBO * Consultation (Routine) - Authorized Specialty Diagnoses / Procedures Referred By Contac t Referred To Contact Wound Care Diagnoses Type 2 diabetes mellitus with foot ulcer Procedures Wound Care HBOT Thu Bhagat PA-C [address] [place] [address] [facility] Wound Care [address] [place] [address] Referral ID Status Reason Start Date Expiration Date V isits Requested Visits Authorized [id number] Authorized 07/02/2024 10/11/2024 99 99 Encounter Details Date Type Department Care Team (Late st Contact Info) Description 08/06/2024 8:30 AM CDT Office Visit [facility] Wound Care [address] [place] [address] [place] [address] [place] [phone] Diabetic ulcer of right midfoot associated [...] from your doctor or pharmacy? Never 06/06/2024 [facility] Utilities Answer Date Recorded In the past 12 months has e [employer], [employer], oil, or water [employer] threatened to shut off services in your [...] 06/06/2024 How often do you attend [facility] or zoroastrian services? More than 4 times per year 06/06/2024 Do you belong to any clubs o r organizations such as faith groups, unions, fraternal or athletic groups, or [...] Recorded Patient Health Questionnaire-2 Score 0 06/06/2024 [facility] - Occupational Stress Questionnaire Answer [...] any time in the past 12 m [facility], were you homeless or living in a mcc (including now)? No 06/06/2024 Interpersonal Safety Questionnaire [...] Sign Reading Time Taken Comments Blood Pressure 126/91 08/06/2024 10:49 AM CDT Pulse 92 08/06/2024 10:49 AM CDT Temperature 36.3 ??C (97.4 ??F) 08/06/2024 10:49 AM C DT Respiratory Rate - - Oxygen Saturation 99% 08/06/2024 10:49 AM CDT Inhaled Oxygen Concentration - - Weight - - Height - - Body Mass Index - - documented in this encounter Progress Notes * Vilma Neves MD - 08/06/2024 8:30 AM CDT HYPERBARIC OXYGEN THERAPY TREATMENT # 18 2.0 Atmospheres Absolute for 90 minutes without air-breaks Chamber: Chamber Number: [id number] Patient presented wearing off loading device to right foot, ordered dressings in place. Vitals: 08/06/24 1049 BP: (!) 126/91 Pulse: 92 Temp: 36.3 ??C (97.4 ??F) SpO2: 99% Glucose Readings Pre Capillary Blood Glucose: 174 Post Capillary Blood Glucose: 169 Blood Glucose Reference Range: 65-95 If patient diabetic, was the Glycemia Interventions Protocol ordered by the physician? : Yes Hyperbaric Monitor Indications: Diabetic Kenney Grade 3 or Higher Treatment Start Time - Compression Begins at 1 ZAID: 0854 Rate Set PSI / Min: 1 Pressure Reached: 0904 ZAID: 2.0 Decompression Begins: 1034 Treatment End Time to 1 ZAID: 1043 Total Treatment Time: 109 Symptoms Noted During [...] Wigs or Hair Pieces Removed: Yes Nail german cured greater than 10 hours: Yes Personal [...] provider) Right Irrigated: No (per provider) HBOT Physician Documentation: Wound Examined? Please see detailed wound findings from visit , 08/06/2024 Patient Cleared for HBO? Yes Continue HBO? [...] st Contact Info) Description 08/24/2024 8:30 AM PLAN MANAGER Office Visit [facility] [address] [place] [address] 08/24/2024 11:30 AM PLAN MANAGER Office Visit [facility] [address] [address] Angel Coombs, DPM [address] [place] [address] 08/25/2024 8:30 AM PLAN MANAGER Office Visit [facility] Wound Care [address] [place] [address] 08/26/2024 8:30 AM PLAN MANAGER Office Visit [facility] Wound Care [address] [place] [address] 08/27/2024 8:30 AM PLAN MANAGER Office Visit [facility] Wound Care [address] [place] [address] 08/27/2024 11:00 AM PLAN MANAGER Office Visit [facility] Wound Care [address] [place] [address] Vilma Neves MD [address] [place] [phone] 08/28/2024 8:30 AM PLAN MANAGER Office Visit [facility] Wound Care [address] [place] [address] 08/31/2024 8:30 AM PLAN MANAGER [facility] [address] [place] [address] 09/01/2024 8:30 AM PLAN MANAGER Office Visit [facility] W[facility] Care [address] [place] [address] 09/02/2024 8:30 AM PLAN MANAGER [facility] [address] [place] [address] 09/03/2024 8:30 AM PLAN MANAGER Office Visit [facility] Wound Care [address] [place] [address] 09/03/2024 11:00 AM PLAN MANAGER [facility] [address] [place] [address] Vilma Neves MD [address] [place] [phone] 09/03/2024 11:00 AM PLAN MANAGER Office Visit [facility] Infectious Disease [address] [place] [address] Amairani Sigala MD [address] [place] [phone] 09/04/2024 8:30 AM PLAN MANAGER Office Visit [facility] Wound Care [address] [place] [address] 09/07/2024 8:30 AM PLAN MANAGER Office Visit [facility] Wound Care [address] [place] [address] 09/08/2024 8:30 AM PLAN MANAGER Office Visit [facility] Wound Care [address] [place] [address] 09/09/2024 8:30 AM PLAN MANAGER Office Visit [facility] Wound Care [address] [place] [address] 09/10/2024 8:30 AM PLAN MANAGER Office Visit [facility] Wound Care [address] [place] [address] 09/10/2024 11:20 AM PLAN MANAGER Office Visit [facility] Wound Care [address] [place] [address] Vilma Neves MD [address] [place] [phone] 09/11/2024 8:30 AM PLAN MANAGER Office Visit [facility] Wound Care [address] [place] [address] 09/14/2024 8:30 AM PLAN MANAGER Office Visit [facility] Wound Care [address] [place] [address] 09/15/2024 8:30 AM PLAN MANAGER Office Visit [facility] [address] [place] [address] documented as of this encounter Procedures Procedure Name Priority Date/Time Associated Diagnosis Comments POCT PRECISION GLUCOSE Routine 08/07/2024 11:11 AM CDT POCT PRECISION GLUCOSE Routine 08/07/2024 8:50 AM CDT POCT PRECISION GLUCOSE Routine 08/06/2024 10:51 AM CDT POCT PRECISION GLUCOSE Routine 08/06/2024 8:39 AM CDT documented in this encounter Results * (ABNORMAL) POCT Precision glucose (08/07/2024 11:11 AM CDT) Glucose Blood, POC 200(H) 70 - 100 mg/dL 08/07/2024 11:13 AM CDT [facility] Comment: Meter ID: [id number] Capillary whole blood specimens should not be used in patients receiving intensive medical intervention/therapy because of the potential for pre-analytical collection error and specifically in patients with decreased peripheral blood flow, as it may not truly reflect the patient? s true physiological state. Examples include, but are not limited to, severe hypotension, shock, hyperosmolar-hyperglycemia (with or without ketosis), and severe dehydration. 08/07/2024 11:1 1 AM CDT 08/07/2024 11:13 AM CDT Vilma Neves MD LAB POINT OF CARE TE ST DOCKED DEVICE UNSOLICITED RESULTS [facility] [address] [place] [address] * (ABNORMAL) POCT Precision glucose (08/07/2024 8:50 AM CDT) Glucose Blood, POC 166(H) 70 - 100 mg/dL 08/07/2024 8:50 AM CDT [facility] Comment: Meter ID: [id number] Capillary whole blood specimens should not be used in patients receiving intensive medical intervention/therapy because of the potential for pre-analytical collection error and specifically in patients with decreased peripheral blood flow, as it may not truly reflect the patient? s true physiological state. Examples include, but are not limited to, severe hypotension, shock, hyperosmolar-hyperglycemia (with or without ketosis), and severe dehydration. 08/07/2024 8:50 AM CDT 08/07/2024 8:51 AM CDT Vilma Neves MD LAB POINT OF CARE TE ST DOCKED DEVICE UNSOLICITED RESULTS [facility] [address] [place] [phone] * (ABNORMAL) POCT Precision glucose (08/06/2024 10:51 AM CDT) Glucose Blood, POC 169(H) 70 - 100 mg/dL 08/06/2024 10:52 AM CDT [facility] Comment: Meter ID: [id number] Capillary whole blood specimens should not be used in patients receiving intensive medical intervention/therapy because of the potential for pre-analytical collection error and specifically in patients with decreased peripheral blood flow, as it may not truly reflect the patient? s true physiological state. Examples include, but are not limited to, severe hypotension, shock, hyperosmolar-hyperglycemia (with or without ketosis), and severe dehydration. 08/06/2024 10:5 1 AM CDT 08/06/2024 10:52 AM CDT Vilma Neves MD LAB POINT OF CARE TE ST DOCKED DEVICE UNSOLICITED RESULTS [facility] [address] [place] [address] * (ABNORMAL) POCT Precision glucose (08/06/2024 8:39 AM CDT) Glucose Blood, POC 174(H) 70 - 100 mg/dL 08/06/2024 8:39 AM CDT [facility] Comment: Meter ID: [id number] Capillary whole blood specimens should not be used in patients receiving intensive medical intervention/therapy because of the potential for pre-analytical collection error and specifically in patients with decreased peripheral blood flow, as it may not truly reflect the patient? s true physiological state. Examples include, but are not limited to, severe hypotension, shock, hyperosmolar-hyperglycemia (with or without ketosis), and severe dehydration. 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
--- OUTSIDE RECORDS SUMMARY | 2024-08-21 10:20 | XMS_ITS | Encounter Summary ---
Author Organization [facility] er Address [address] [place] [address] Care Team Providers Care Training Consultant Name Role Phone Thu Bhagat PA-C Primary Care Provider [phone] Reason for Visit * Reason Comments HBO * Consultation (Routine) - Authorized Specialty Diagnoses / Procedures Referred By Contac t Referred To Contact Wound Care Diagnoses Type 2 diabetes mellitus with foot ulcer Procedures Wound Care HBOT Thu Bhagat PA-C [address] [place] [phone] [facility] Wound Care [address] [place] [address] Referral ID Status Reason Start Date Expiration Date V isits Requested Visits Authorized [id number] Authorized 07/02/2024 10/11/2024 99 99 Encounter Details Date Type Department Care Team (Late st Contact Info) Description 08/05/2024 8:30 AM CDT Office Visit [facility] W[facility] Care [address] [place] [phone] Diabetic ulcer of right midfoot associated with [...] from your doctor or pharmacy? Never 06/06/2024 [facility] Utilities Answer Date Recorded In the past 12 months has e [email or web address], gas, oil, or water [employer] threatened to shut off services in your [...] How often do you attend chur or methodist services? More than 4 times per year 06/06/2024 Do you belong to any clubs o r organizations such as yazidism groups, unions, fraternal or athletic groups, or [...] Recorded Patient Health Questionnaire-2 Score 0 06/06/2024 [facility] - Occupational Stress [...] time in the past 12 m [facility], were you homeless or living in a assisted (including now)? No 06/06/2024 Interpersonal Safety Questionnaire Answer Date Recorded How often does anyone, tyrell kerns family and friends, physically hurt you? Never 06/06/2024 How often does anyone, tyrell kerns family and friends, insult or talk down to you? Never 06/06/2024 How often does anyone, tyrell kerns family and friends, threaten you with harm? Never 06/06/2024 How often does anyone, inclu ding family and friends, threaten you with harm? Never 06/06/2024 Sex and Gender Information Value Date Recorded Sex Assigned at Not on file Gender Identity Not on file Sexual Orientation Not on file documented as of this encounter Last Filed Vital Signs Vital Sign Reading Time Taken Comments Blood Pressure 129/90 08/05/2024 10:48 AM CDT Pulse 89 08/05/2024 10:48 AM CDT Temperature 36.6 ??C (97.8 ??F) 08/05/2024 10:48 AM C DT Respiratory Rate 18 08/05/2024 10:48 AM CDT Oxygen Saturation - - Inhaled Oxygen Concentration - - Weight - - Height - - Body Mass Index - - documented in this encounter Progress Notes * Rocco Couch PA-C - 08/05/2024 8:30 AM CDT HYPERBARIC OXYGEN THERAPY TREATMENT # 17 2.0 Atmospheres Absolute for 90 minutes without air-breaks Chamber: Chamber Number: [id number] Patient presented wearing off loading device to right foot, ordered dressings in place. Vitals: 08/05/24 1048 BP: (!) 129/90 Pulse: 89 Resp: 18 Temp: 36.6 ??C (97.8 ??F) Glucose Readings Pre Capillary Blood Glucose: 178 Post Capillary Blood Glucose: 180 Blood Glucose Reference Range: 65-95 If patient diabetic, was the Glycemia Interventions Protocol ordered by the physician? : Yes (1/2 Ensure per provider request) Hyperbaric Monitor Indications: Diabetic Kenney Grade 3 or Higher Treatment Start Time - Compression Begins at 1 ZAID: 0854 Rate Set PSI / Min: 2 Pressure Reached: 0902 ZAID: 2.0 Decompression Begins: 1032 Treatment End Time to 1 ZAID: 1040 Total Treatment Time: 106 Symptoms Noted During [...] Wigs or Hair Pieces Removed: Yes Nail slovak cured greater than 10 hours: N/A Personal oil-based products/skin lotions/body lotions: N/A Dentures Removed: N/A Hearing Aids Removed: N/A Prosthetics Removed: N/A Casting Material cured greater than 10 hours: N/A Titanium Eyewear Removed: N/A Battery operated devices (external) Removed: N/A Smoking and tobacco materials removed: Yes Books/newspapers/magazines/loose [...] provider) Right Irrigated: No (per provider) HBOT Physician-Spinneret Cleaner Documentation: Wound Examined? No. Please see weekly [...] within normal range to participate in dive. Doing well and participating well with HBO and [facility] treatment. Rocco Couch PA-C documented in this encounter Plan of Treatment Upcoming Encounters Date Type Department Care Team (Late st Contact Info) Description 08/24/2024 8:30 AM TRAILER DRIVER Office Visit [facility] Wound Care [address] [place] [address] 08/24/2024 11:30 AM TRAILER DRIVER Office Visit [facility] [address], [place] [address] Angel Coombs, DPM [address] [place] [phone] 08/25/2024 8:30 AM TRAILER DRIVER Office Visit [facility] Wound Care [address] [place] [address] 08/26/2024 8:30 AM TRAILER DRIVER Office Visit [facility] W[facility] Care [address] [place] [phone] 08/27/2024 8:30 AM TRAILER DRIVER Office Visit [facility] W[facility] Care [address] [place] [address] 08/27/2024 11:00 AM TRAILER DRIVER Office Visit [facility] Wound Care [address] [place] [address] [place] [address] [place] [phone] 08/28/2024 8:30 AM TRAILER DRIVER Office Visit [facility] Wound Care [address] [place] [address] 08/31/2024 8:30 AM TRAILER DRIVER Office Visit [facility] Wound Care [address] [place] [address] 09/01/2024 8:30 AM TRAILER DRIVER Office Visit [facility] Wound Care [address] [place] [address] 09/02/2024 8:30 AM TRAILER DRIVER Office Visit [facility] Wound Care [address] [place] [address] 09/03/2024 8:30 AM TRAILER DRIVER Office Visit [facility] Wound Care [address] [place] [address] 91447 09/03/2024 11:00 AM TRAILER DRIVER Office Visit [facility] Wound Care [address] [place] [address] Vilma Neves MD [address] [place] [phone] 09/03/2024 11:00 AM TRAILER DRIVER Office Visit [facility] Infectious Disease [address] [place] [address] Amairani Sigala MD [address] [place] [phone] 09/04/2024 8:30 AM TRAILER DRIVER Office Visit [facility] Wound Care [address] [place] [address] 09/07/2024 8:30 AM TRAILER DRIVER Office Visit [facility] Wound Care [address] [place] [address] 09/08/2024 8:30 AM TRAILER DRIVER Office Visit [facility] Wound Care [address] [place] [address] 08864 09/09/2024 8:30 AM TRAILER DRIVER Office Visit [facility] Wound Care [address] [place] [address] [phone] 09/10/2024 8:30 AM TRAILER DRIVER Office Visit [facility] Wound Care [address] [place] [address] 32202 09/10/2024 11:20 AM TRAILER DRIVER Office Visit [facility] W[facility] Care [address] [place] [address] Vilma Neves MD [address] [place] [phone] 09/11/2024 8:30 AM TRAILER DRIVER Office Visit [facility] Wound Care [address] [place] [address] 43226 09/14/2024 8:30 AM TRAILER DRIVER Office Visit [facility] Wound Care [address] [place] [address] 09/15/2024 8:30 AM TRAILER DRIVER Office Visit [facility] Wound Care [address] [place] [address]324 documented as of this encounter Procedures Procedure Name Priority Date/Time Associated Diagnosis Comments POCT PRECISION GLUCOSE Routine 08/05/2024 10:45 AM CDT POCT PRECISION GLUCOSE Routine 08/05/2024 8:41 AM CDT documented in this encounter Results * (ABNORMAL) POCT Precision glucose (08/05/2024 10:45 AM CDT) Glucose Blood, POC 180(H) 70 - 100 mg/dL 08/05/2024 10:46 AM CDT [facility] Comment: Meter ID: [id number] Capillary whole blood specimens should not be used in patients receiving intensive medical intervention/therapy because of the potential for pre-analytical collection error and specifically in patients with decreased peripheral blood flow, as it may not truly reflect the patient? s true physiological state. Examples include, but are not limited to, severe hypotension, shock, hyperosmolar-hyperglycemia (with or without ketosis), and severe dehydration. 08/05/2024 10:4 5 AM CDT 08/05/2024 10:46 AM CDT Thu Bhagat PA-C LAB POINT OF CARE TE ST DOCKED DEVICE UNSOLICITED RESULTS [facility] [address] [place] [phone] * (ABNORMAL) POCT Precision glucose (08/05/2024 8:41 AM CDT) Glucose Blood, POC 178(H) 70 - 100 mg/dL 08/05/2024 8:42 AM CDT [facility] Comment: Meter ID: [id number] Capillary whole blood specimens should not be used in patients receiving intensive medical intervention/therapy because of the potential for pre-analytical collection error and specifically in patients with decreased peripheral blood flow, as it may not truly reflect the patient? s true physiological state. Examples include, but are not limited to, severe hypotension, shock, hyperosmolar-hyperglycemia (with or without ketosis), and severe dehydration. 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
--- OUTSIDE RECORDS SUMMARY | 2024-08-21 10:20 | XMS_ITS | Encounter Summary ---
Author Organization [facility] er Address [address] [place] [address] Care Team Providers Care Global Chief Experience Officer Name Role Phone Thu Bhagat PA-C Primary Care Provider [phone] Reason for Visit * Reason Comments HBO * Consultation (Routine) - Authorized Specialty Diagnoses / Procedures Referred By Contac t Referred To Contact Wound Care Diagnoses Type 2 diabetes mellitus with foot ulcer Procedures Wound Care HBOT Thu Bhagat PA-C [address] [place] [phone] [facility] [address] [place] [address] Referral ID Status Reason Start Date Expiration Date V isits Requested Visits Authorized [id number] Authorized 07/02/2024 10/11/2024 99 99 Encounter Details Date Type Department Care Team (Late st Contact Info) Description 08/11/2024 8:30 AM CDT Office Visit [facility] W[facility] Care [address] [place] [address] [place] [address] [place] [phone] Diabetic ulcer of right midfoot associated [...] from your doctor or pharmacy? Never 06/06/2024 [facility] Utilities Answer Date Recorded In the past 12 months has e [employer], gas, oil, or water company threatened to [...] week 06/06/2024 How often do you attend [facility] or moravian services? More than 4 times per year 06/06/2024 Do you belong to any clubs o r organizations such as congregational groups, unions, fraternal or athletic groups, or [...] Recorded Patient Health Questionnaire-2 Score 0 06/06/2024 [facility] - Occupational Stress Questionnaire Answer [...] time in the past 12 m [facility], were you homeless or living in [...] Sign Reading Time Taken Comments Blood Pressure 133/99 08/11/2024 10:38 AM CDT Pulse 91 08/11/2024 10:38 AM CDT Temperature 36.1 ??C (97 ??F) 08/11/2024 10:38 AM CDT Respiratory Rate 18 08/11/2024 10:38 AM CDT Oxygen Saturation - - Inhaled Oxygen Concentration - - Weight - - Height - - Body Mass Index - - documented in this encounter Patient Instructions * Patient Instructions* Valeria Tobar RN - 08/11/2024 8:30 AM CDT Return in 1 day for your next HBO treatment. documented in this encounter Progress Notes * Valeria Tobar RN - 08/11/2024 8:30 AM CDT HYPERBARIC OXYGEN THERAPY TREATMENT # 21 2 ZAID for 90 minutes with no air breaks. Provider in wound clinic at time of treatment. Chamber: Chamber Number: [id number] Patient presented wearing off loading device to right foot, ordered dressings in place. Vitals: 08/11/24 1038 BP: (!) 133/99 Pulse: 91 Resp: 18 Temp: 36.1 ??C (97 ??F) Glucose Readings Pre Capillary Blood Glucose: 193 Post Capillary Blood Glucose: 123 Blood Glucose Reference Range: 65-95 If patient diabetic, was the Glycemia Interventions Protocol ordered by the physician? : Yes Hyperbaric Monitor Indications: Diabetic Kenney Grade 3 or Higher Treatment Start Time - Compression Begins at 1 ZAID: 0832 Rate Set PSI / Min: 1.5 Pressure Reached: 0842 ZAID: 2.0 Decompression Begins: 1012 Treatment End Time to 1 ZAID: 1021 Total Treatment Time: 109 Symptoms Noted During [...] Wigs or Hair Pieces Removed: Yes Nail djiboutian cured greater than 10 hours: Yes Personal [...] Right Irrigated: No (per provider) HBOT Physician Documentation Associated attestation - Vilma Neves MD - 08/11/2024 2:31 PM CDT HBOT Physician Documentation: Wound Examined? Yes please see detailed wound findings from wound visit on 08/11/2024 Patient Cleared for HBO? Yes Continue HBO? [...] st Contact Info) Description 08/24/2024 8:30 AM HAT LINER Office Visit [facility] Wound Care [address] [place] [address] 08/24/2024 11:30 AM HAT LINER [facility] Visit [facility] [address] [place] [address] Angel Coombs, DPHang [address] [place] [phone] 08/25/2024 8:30 AM HAT LINER Office Visit [facility] [address] [place] [address] 08/26/2024 8:30 AM HAT LINER Office Visit [facility] Wound Care [address] [place] [address] 08/27/2024 8:30 AM HAT LINER Office Visit [facility] Wound Care [address] [place] [address] 08/27/2024 11:00 AM HAT LINER Office Visit [facility] W[facility] Care [address] [place] [address] Vilma Neves MD [address] [place] [phone] 08/28/2024 8:30 AM HAT LINER Office Visit [facility] Wound Care [address] [place] [address] 08/31/2024 8:30 AM HAT LINER Office Visit [facility] Wound Care [address] [place] [address] 09/01/2024 8:30 AM HAT LINER Office Visit [facility] Wound Care [address] [place] [address] 09/02/2024 8:30 AM HAT LINER Office Visit [facility] Wound Care [address] [place] [address] 09/03/2024 8:30 AM HAT LINER Office Visit [facility] Wound Care [address] [place] [address] 09/03/2024 11:00 AM HAT LINER Office Visit [facility] W[facility] Care [address] [place] [address] Vilma Neves MD [address] [place] [phone] 09/03/2024 11:00 AM HAT LINER Office Visit [facility] Infectious Disease [address] [place] [address] Amairani Sigala MD [address] [place] [address] [phone] 09/04/2024 8:30 AM HAT LINER Office Visit [facility] Wound Care [address] [place] [address] 09/07/2024 8:30 AM HAT LINER Office Visit [facility] Wound Care [address] [place] [address] 09/08/2024 8:30 AM HAT LINER Office Visit [facility] Wound Care [address] [place] [address] 09/09/2024 8:30 AM HAT LINER Office Visit [facility] Wound Care [address] [place] [address] 09/10/2024 8:30 AM HAT LINER Office Visit [facility] Wound Care [address] [place] [address] 09/10/2024 11:20 AM HAT LINER Office Visit [facility] Wound Care [address] [place] [address] Vilma Neves MD [address] [place] [address] [phone] 09/11/2024 8:30 AM HAT LINER Office Visit [facility] Care [address] [place] [phone] 09/14/2024 8:30 AM HAT LINER Office Visit [facility] Wound Care [address] [place] [phone] 09/15/2024 8:30 AM HAT LINER Office Visit [facility] W[facility] Care [address] [place] [address] [phone] documented as of this encounter Procedures Procedure Name Priority Date/Time Associated Diagnosis Comments POCT PRECISION GLUCOSE Routine 08/11/2024 10:26 AM CDT POCT PRECISION GLUCOSE Routine 08/11/2024 8:22 AM CDT documented in this encounter Results * (ABNORMAL) POCT Precision glucose (08/11/2024 10:26 AM CDT) Glucose Blood, POC 123(H) 70 - 100 mg/dL 08/11/2024 10:27 AM CDT [facility] Comment: Meter ID: [id number] Capillary whole blood specimens should not be used in patients receiving intensive medical intervention/therapy because of the potential for pre-analytical collection error and specifically in patients with decreased peripheral blood flow, as it may not truly reflect the patient? s true physiological state. Examples include, but are not limited to, severe hypotension, shock, hyperosmolar-hyperglycemia (with or without ketosis), and severe dehydration. 08/11/2024 10:2 6 AM CDT 08/11/2024 10:28 AM CDT Thu Bhagat PA-C LAB POINT OF CARE TE ST DOCKED DEVICE UNSOLICITED RESULTS [facility] [address] [place] [address] * (ABNORMAL) POCT Precision glucose (08/11/2024 8:22 AM CDT) Glucose Blood, POC 193(H) 70 - 100 mg/dL 08/11/2024 8:23 AM CDT [facility] Comment: Meter ID: [id number] Capillary whole blood specimens should not be used in patients receiving intensive medical intervention/therapy because of the potential for pre-analytical collection error and specifically in patients with decreased peripheral blood flow, as it may not truly reflect the patient? s true physiological state. Examples include, but are not limited to, severe hypotension, shock, hyperosmolar-hyperglycemia (with or without ketosis), and severe dehydration. 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
--- OUTSIDE RECORDS SUMMARY | 2024-08-21 10:20 | XMS_ITS | Encounter Summary ---
Author Organization [facility] er Address [address] [place] [address] Care Team Providers Care Junior Linux Systems Administrator Name Role Phone Thu Bhagat PA-C Primary Care Provider [phone] Reason for Visit * Consultation (Routine) - Closed Specialty Diagnoses / Procedures Referred By Conteufemia t Referred To Contact Obstetrics and Gynecology / Lab Diagnoses lab Procedures LAB [facility] [address] [place] [address] [facility] [address] [place] [address] Referral ID Status Reason Start Date Expiration Date Visits Re quested Visits Authorized [id number] Closed 08/03/2024 08/03/2025 10 10 Encounter Details Date Type Department Care Team (Late st Contact Info) Description 08/03/2024 12:15 PM CDT Lab [facility] [address] [place] [address] Infection of right foot Social History Tobacco Use Types Packs/Day Years [...] Never 06/06/2024 [facility] Utilities Answer Date Recorded In the past 12 months has th e electric, gas, oil, or water [employer] threatened to shut off services in your [...] How often do you attend chur or hinduism services? More than 4 times per year 06/06/2024 Do you belong to any clubs o r organizations such as restoration groups, unions, fraternal or athletic groups, or [...] Recorded Patient Health Questionnaire-2 Score 0 06/06/2024 [facility] - Occupational Stress Questionnaire Answer Date Recorded [...] any time in the past 12 m [facility], were you homeless or living in a group home (including now)? No 06/06/2024 Interpersonal Safety [...] on file documented as of this encounter Plan of Treatment Upcoming Encounters Date Type Department Care Team (Late st Contact Info) Description 08/24/2024 8:30 AM VALIDATION CONSULTANT Office Visit [facility] W[facility] [address] [place] [address] 08/24/2024 11:30 AM VALIDATION CONSULTANT [facility] Visit [facility] [address], [place] [address] Angel Coombs, DPM [address] [place] [phone] 08/25/2024 8:30 AM VALIDATION CONSULTANT Office Visit [facility] [address] [place] [address] 08/26/2024 8:30 AM VALIDATION CONSULTANT Office Visit [facility] [address] [place] [address] 08/27/2024 8:30 AM VALIDATION CONSULTANT Office Visit [facility] [address] [place] [address] 08/27/2024 11:00 AM VALIDATION CONSULTANT Office Visit [facility] [address] [place] [address] [place] [address] [place] [phone] 08/28/2024 8:30 AM VALIDATION CONSULTANT Office Visit [facility] [address] [place] [address] 08/31/2024 8:30 AM VALIDATION CONSULTANT Office Visit [facility] [address] [place] [address] 09/01/2024 8:30 AM VALIDATION CONSULTANT Office Visit [facility] [address] [place] [address] 09/02/2024 8:30 AM VALIDATION CONSULTANT Office Visit [facility] [address] [place] [address] 09/03/2024 8:30 AM VALIDATION CONSULTANT Office Visit [facility] [address] [place] [address] 09/03/2024 11:00 AM VALIDATION CONSULTANT Office Visit [facility] Wound Care [address] [place] [address] Vilma Neves MD [address] [place] [address] [phone] 09/03/2024 11:00 AM VALIDATION CONSULTANT Office Visit [facility] Infectious Disease [address] [place] [address]2507 Amairani Sigala MD [address] [place] [phone] 09/04/2024 8:30 AM VALIDATION CONSULTANT Office Visit [facility] [address] [place] [address] 15707 09/07/2024 8:30 AM VALIDATION CONSULTANT Office Visit [facility] [address] [place] [address] 12238 09/08/2024 8:30 AM VALIDATION CONSULTANT Office Visit [facility] [address] [place] [address] 59724 09/09/2024 8:30 AM VALIDATION CONSULTANT Office Visit [facility] [address] [place] [address] 65827 09/10/2024 8:30 AM VALIDATION CONSULTANT Office Visit [facility] [address] [place] [address] 09/10/2024 11:20 AM VALIDATION CONSULTANT Office Visit [facility] [address] [place] [address]59 Vilma Neves MD [address] [place] [phone] 09/11/2024 8:30 AM VALIDATION CONSULTANT Office Visit [facility] [address] [place] [address]30 09/14/2024 8:30 AM VALIDATION CONSULTANT Office Visit [facility] Wound Care [address] [place] [address] 09/15/2024 8:30 AM VALIDATION CONSULTANT Office Visit [facility] Wound Care [address] [place] [address] documented as of this encounter Procedures Procedure Name Priority Date/Time Associated Diagnosis Comments ESTIMATED GLOMERULAR FILTRATION RATE (EGFR) Routine 08/03/2024 12:12 PM CDT Infection of right foot CBC Routine 08/03/2024 12:12 PM CDT Infection of right foot ALT Routine 08/03/2024 12:12 PM CDT Infection of right foot AST Routine 08/03/2024 12:12 PM CDT Infection of right foot BASIC METABOLIC PANEL Routine 08/03/2024 12:12 PM CDT Infection of right foot documented in this encounter Results * Estimated Glomerular Filtration Rate (eGFR) (08/03/2024 12:12 PM CDT) Pathologist [facility] Estimated Glomerular Filtration Rate (eGFR) >60 08/03/2024 2:09 PM CDT [facility] Comment: GFR calculated from serum creatinine value Chronic Kidney Disease less than 60 mL/min/1.73 m2 Kidney Failure less than 15 mL/min/1.73 m2 Note: effective 10/17/2022: 2020 CKD-EPI Equation used 08/03/2024 12:1 2 PM CDT 08/03/2024 12:12 PM CDT Amairani Strickland MD LAB BLOOD ORDERABL ES [facility] [address] [place] [address] * (ABNORMAL) CBC ([facility]) (08/03/2024 12:12 PM CDT) WBC 6.8 3.5 - 10.5 K/uL 08/03/2024 1:01 PM [facility] RBC 5.49 4.30 - 5.70 M/uL 08/03/2024 1:01 PM [facility] Hemoglobin 16.1 13.5 - 17.5 g/dL 08/03/2024 1:01 PM [facility] Hematocrit 50.3(H) 38.0 - 50.0 % 08/03/2024 1:01 PM [facility] Platelets 212 150 - 450 K/uL 08/03/2024 1:01 PM [facility] MCV 91.6 81.2 - 95.1 fL 08/03/2024 1:01 PM [facility] MCH 29.3 26.0 - 32.0 pg 08/03/2024 1:01 PM [facility] MCHC 32.0 32.0 - 36.0 g/dL 08/03/2024 1:01 PM [facility] RDW 14.9 11.8 - 15.6 % 08/03/2024 1:01 PM [facility] NRBC %, Automated 0 % 08/03/2024 1:01 PM [facility] NRBC Absolute, Autmated 0.00 K/uL 08/03/2024 1:01 PM [facility] Comment: 0-4 Days: 0.01 -0.02 >=5 Days: 0.00 Blood (Blood, Venous) 08/03/2024 12:12 PM CDT 08/03/2024 12:37 PM CDT Amairani Strickland MD LAB BLOOD ORDERABL ES [facility] [address] [place] [address] * AST (08/03/2024 12:12 PM CDT) Pathologist [facility] AST 31 8 - 48 U/L 08/03/2024 2:09 PM CDT [facility] Blood (Blood, Venous) 08/03/2024 12:12 PM CDT 08/03/2024 12:37 PM CDT Amairani Strickland MD LAB BLOOD ORDERABL ES Performing Organization Address [facility] Co de Phone Number [facility] [address] [place], [place] [id number] * ALT (08/03/2024 12:12 PM CDT) ALT (SGPT) 22 0 - 49 U/L 08/03/2024 2:09 PM CDT [facility] Blood (Blood, Venous) 08/03/2024 12:12 PM CDT 08/03/2024 12:37 PM CDT Amairani Strickland MD LAB BLOOD ORDERABL ES Performing Organization Address [facility] de Phone Number [facility] [address] [place], [place] [phone] * (ABNORMAL) Basic metabolic panel (08/03/2024 12:12 PM CDT) Sodium 139 135 - 145 mEq/L 08/03/2024 2:09 PM [facility] Potassium 4.5 3.5 - 5.1 mEq/L 08/03/2024 2:09 PM [facility] Chloride 105 98 - 107 mEq/L 08/03/2024 2:09 PM [facility] CO2 25 22 - 31 mmol/L 08/03/2024 2:09 PM [facility] Creatinine 1.06 0.60 - 1.40 mg/dL 08/03/2024 2:09 PM [facility] BUN 21 5 - 25 mg/dL 08/03/2024 2:09 PM [facility] Glucose 102(H) 70 - 100 mg/dL 08/03/2024 2:09 PM [facility] Calcium, Total,S 9.9 8.4 - 10.2 mg/dL 08/03/2024 2:09 PM CDT [facility] Anion Gap 9 4 - 13 08/03/2024 2:09 PM CDT [facility] Comment: The anion gap is calculated with the following formula: AGAP = Na ? (Cl + CO2). Fasting? Unknown 08/03/2024 12:12 PM CDT [facility] Blood (Blood, Venous) 08/03/2024 12:12 PM CDT 08/03/2024 12:37 PM CDT Amairani Strickland MD LAB BLOOD ORDERABL ES [facility] [address] [place] [address] documented in this encounter Visit Diagnoses Diagnosis Infection of right foot documented in this encounter Care Teams Junior Linux Systems Administrator Relationship Specialty Start Date End Date Thu Bhagat PA-C [address] [place] [phone] PCP - General 11/26/22 documented as of this encounter
--- OUTSIDE RECORDS SUMMARY | 2024-08-21 10:20 | XMS_ITS | Encounter Summary ---
Author Organization [facility] er Address [address] [place] [address] Care Team Providers Care Tubing Machine Operator Name Role Phone Thu Bhagat PA-C Primary Care Provider [phone] Reason for Visit * Reason Comments HBO * Consultation (Routine) - Authorized Specialty Diagnoses / Procedures Referred By Contac t Referred To Contact Wound Care Diagnoses Type 2 diabetes mellitus with foot ulcer Procedures Wound Care HBOT Thu Bhagat PA-C [address] [place] [phone] [facility] Wound Care [address] [place] [address] Referral ID Status Reason Start Date Expiration Date V isits Requested Visits Authorized [id number] Authorized 07/02/2024 10/11/2024 99 99 Encounter Details Date Type Department Care Team (Late st Contact Info) Description 08/07/2024 8:30 AM CDT Office Visit [facility] [address] [place] [address] [place] [address] [place] [phone] Diabetic ulcer of right midfoot associated [...] from your doctor or pharmacy? Never 06/06/2024 [facility] Utilities Answer Date Recorded In the past 12 months has e [employer], gas, oil, or water company threatened to [...] How often do you attend [facility] or latter-day services? More than 4 times per year 06/06/2024 Do you belong to any clubs o r organizations such as judaism groups, unions, fraternal or athletic groups, or [...] Recorded Patient Health Questionnaire-2 Score 0 06/06/2024 [facility] - Occupational Stress Questionnaire Answer [...] any time in the past 12 m [facility], were you homeless or living in a residential (including now)? No 06/06/2024 Interpersonal Safety Questionnaire [...] Sign Reading Time Taken Comments Blood Pressure 136/102 08/07/2024 11:00 AM CDT Pulse 80 08/07/2024 11:00 AM CDT Temperature 36.2 ??C (97.2 ??F) 08/07/2024 11:00 AM C DT Respiratory Rate 18 08/07/2024 11:00 AM CDT Oxygen Saturation - - Inhaled Oxygen Concentration - - Weight - - Height - - Body Mass Index - - documented in this encounter Progress Notes * Karley Dickens, RAMÓN - 08/07/2024 8:30 AM CDT HYPERBARIC OXYGEN THERAPY TREATMENT # 19 2.0 Atmospheres Absolute for 90 minutes without air-breaks Chamber: Chamber Number: [id number] Patient presented wearing off loading device to right foot, ordered dressings in place. Vitals: 08/07/24 1100 BP: (!) 136/102 Pulse: 80 Resp: 18 Temp: 36.2 ??C (97.2 ??F) Glucose Readings Pre Capillary Blood Glucose: 166 Blood Glucose Reference Range: 65-95 If patient diabetic, was the Glycemia Interventions Protocol ordered by the physician? : Yes (Boost) Hyperbaric Monitor Indications: Diabetic Kenney Grade 3 or Higher Treatment Start Time - Compression Begins at 1 ZAID: 0912 Rate Set PSI / Min: 1.5 Pressure Reached: 0923 ZAID: 2.0 Decompression Begins: 1053 Treatment End Time to 1 ZAID: 1105 Total Treatment Time: 113 Symptoms Noted During Treatment: None Hyperbaric Pre-Instpection Hyperbaric Pre-Inspection Consent Obtained: Yes Is there a TCOM ordered for the patient?: Completed Patient voided/noonan secured and emptied: No When did the patient last eat?: 0700 [...] Wigs or Hair Pieces Removed: Yes Nail comoran cured greater than 10 hours: Yes Personal [...] Associated attestation - Vilma Neves MD - 08/07/2024 12:28 PM CDT HBOT Physician Documentation: Wound Examined? [...] st Contact Info) Description 08/24/2024 8:30 AM ASSOCIATE PROFESSOR OF COMMUNICATION Office Visit [facility] [address] [place] [address] 08/24/2024 11:30 AM ASSOCIATE PROFESSOR OF COMMUNICATION [facility] [address] [place] [address] Angel Coombs, DPM [address] [place] [address] 08/25/2024 8:30 AM ASSOCIATE PROFESSOR OF COMMUNICATION Office Visit [facility] [address] [place] [address] 08/26/2024 8:30 AM ASSOCIATE PROFESSOR OF COMMUNICATION Office Visit [facility] [address] [place] [address] 08/27/2024 8:30 AM ASSOCIATE PROFESSOR OF COMMUNICATION Office Visit [facility] [address] [place] [address] 08/27/2024 11:00 AM ASSOCIATE PROFESSOR OF COMMUNICATION Office Visit [facility] [address] [place] [phone] Vilma Neves MD [address] [place] [address] 08/28/2024 8:30 AM ASSOCIATE PROFESSOR OF COMMUNICATION Office Visit [facility] [address] [place] [address] 08/31/2024 8:30 AM ASSOCIATE PROFESSOR OF COMMUNICATION Office Visit [facility] [address] [place] [address] 09/01/2024 8:30 AM ASSOCIATE PROFESSOR OF COMMUNICATION Office Visit [facility] [address] [place] [address] 09/02/2024 8:30 AM ASSOCIATE PROFESSOR OF COMMUNICATION Office Visit [facility] [address] [place] [address] 09/03/2024 8:30 AM ASSOCIATE PROFESSOR OF COMMUNICATION Office Visit [facility] [address] [place] [address] 09/03/2024 11:00 AM ASSOCIATE PROFESSOR OF COMMUNICATION Office Visit [facility] [address] [place] [address] Vilma Neves MD [address] [place] [phone] 09/03/2024 11:00 AM ASSOCIATE PROFESSOR OF COMMUNICATION Office Visit [facility] Infectious Disease [address] [place] [address] Amairani Sigala MD [address] [place] [phone] 09/04/2024 8:30 AM ASSOCIATE PROFESSOR OF COMMUNICATION Office Visit [facility] [address] [place] [address] 09/07/2024 8:30 AM ASSOCIATE PROFESSOR OF COMMUNICATION Office Visit [facility] [address] [place] [address] 09/08/2024 8:30 AM ASSOCIATE PROFESSOR OF COMMUNICATION Office Visit [facility] [address] [place] [address] 09/09/2024 8:30 AM ASSOCIATE PROFESSOR OF COMMUNICATION Office Visit [facility] [address] [place] [address] 09/10/2024 8:30 AM ASSOCIATE PROFESSOR OF COMMUNICATION Office Visit [facility] [address] [place] [address] 09/10/2024 11:20 AM ASSOCIATE PROFESSOR OF COMMUNICATION Office Visit [facility] [address] [place] [address] Vilma Neves MD [address] [place] [phone] 09/11/2024 8:30 AM ASSOCIATE PROFESSOR OF COMMUNICATION Office Visit [facility] [address] [place] [address] 09/14/2024 8:30 AM ASSOCIATE PROFESSOR OF COMMUNICATION Office Visit [facility] [address] [place] [address] 09/15/2024 8:30 AM ASSOCIATE PROFESSOR OF COMMUNICATION Office Visit [facility] [address] [place] [address] documented as of this encounter Visit Diagnoses Diagnosis Diabetic ulcer of right midfoot associated with type 2 diabetes mellitus, 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
--- OUTSIDE RECORDS SUMMARY | 2024-08-21 10:20 | XMS_ITS | Encounter Summary ---
Author Organization [facility] er Address [address] [place] [address] Care Team Providers Care Plasterer Spray Gun Name Role Phone Thu Bhagat PA-C Primary Care Provider [phone] Reason for Visit * Reason Comments Wound Check * Consultation (Routine) - Authorized Specialty Diagnoses / Procedures Referred By Contac t Referred To Contact Wound Care Diagnoses Cellulitis, unspecified Procedures Wound Clinic Thu Bhagat PA-C [address] [place] [address] [facility] W[facility] Care [address] [place] [address] Referral ID Status Reason Start Date Expiration Date V isits Requested Visits Authorized [id number] Authorized 06/17/2024 12/15/2024 99 99 Encounter Details Date Type Department Care Team (Late st Contact Info) Description 08/06/2024 11:30 AM CDT Office Visit [facility] [address] [place] [address] [phone] [place] [address] [place] [phone] Diabetic ulcer of right midfoot associated [...] doctor or pharmacy? Never 06/06/2024 [facility] Utilities Answer Date Recorded In the past 12 months has e [employer], gas, oil, or water [email or web address] threatened to shut off services in your [...] week 06/06/2024 How often do you attend [facility] or latter-day services? More than 4 times per year 06/06/2024 Do you belong to any clubs o r organizations such as christian groups, unions, fraternal or athletic groups, or [...] Recorded Patient Health Questionnaire-2 Score 0 06/06/2024 [facility] - Occupational Stress Questionnaire Answer Date [...] in the past 12 m [facility], were you homeless or living in [...] on file documented as of this encounter Progress Notes * Vilma Neves MD - 08/06/2024 11:30 AM CDT Advanced Wound Healing Visit Type: Established patient Subjective Francisco Javier Fung is a 69 y.o. male who presents today for wound check. 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 He continues to have daily HBO treatments. Patient maintains glycemic control, offloading with wheelchair and Aircast and maintaining nonweightbearing status to the right lower extremity. He continues tomaintain glycemic control as well as increase protein intake. He denies any headaches sinus pressure ear pain shortness of breath or chest pain while in HBO. No wound or dressing concerns since his last visit. Home health is coming for dressing changes during the week between wound visits. The following portions of the patient's history were reviewed by a provider in this encounter and updated as appropriate: Tobacco Allergies Meds Problems Med Hx Surg Hx Fam Hx Objective Visit Vitals Smoking Status Never Wound: Wound #1 right dorsal foot ulceration down to muscle fascia and midfoot structures involvingthe central portion of the ulcer the remainder shows significant wound contraction and increased granulation no undermining decreased slough, overall improved Procedure Note: Wound #1 Time-out: 1127 Excisional debridement: muscle (outside wound margins to [...] of necrosis Pre debridement measurements (cm's) L 4.5 cm W 1 cm D 1.1 cm total sq cm 4.5 cm^2 Post debridement measurements (cm's) L 4.5 cm W 1 cm D 1.3 cm total sq cm 4.5 cm^2 Assessment/Plan Diagnoses and all orders for this visit: Diabetic ulcer of right midfoot associated with type 2 diabetes mellitus, 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) [E11.621, L97.415] Overall continued clinical improvement Wound / Level of debridement: Wound #1-muscle Dressing: ColActive AG powder, Hydrofera Blue ready Off-loading: Continue wheelchair, Aircast for transfers, Ro[place] [...] st Contact Info) Description 08/24/2024 8:30 AM MOTOR GENERATOR SET OPERATOR Office Visit [facility] Wound Care [address] [place], [place] [phone] 08/24/2024 11:30 AM MOTOR GENERATOR SET OPERATOR [facility] [address] [place], [place] [phone] Angel Coombs DPHang [address] [place] [phone] 08/25/2024 8:30 AM MOTOR GENERATOR SET OPERATOR Office Visit [facility] [address] [place] [address] 08/26/2024 8:30 AM MOTOR GENERATOR SET OPERATOR Office Visit [facility] [address] [place] [phone] 08/27/2024 8:30 AM MOTOR GENERATOR SET OPERATOR Office Visit [facility] [address] [place] [address] 08/27/2024 11:00 AM MOTOR GENERATOR SET OPERATOR Office Visit [facility] [address] [place] [address] Vilma Neves MD [address] [place] [phone] 08/28/2024 8:30 AM MOTOR GENERATOR SET OPERATOR Office Visit [facility] [address] [place] [address] 08/31/2024 8:30 AM MOTOR GENERATOR SET OPERATOR Office Visit [facility] [address] [place] [address] 09/01/2024 8:30 AM MOTOR GENERATOR SET OPERATOR Office [facility] [address] [place] [address] 09/02/2024 8:30 AM MOTOR GENERATOR SET OPERATOR Office [facility] [address] [place] [address] 09/03/2024 8:30 AM MOTOR GENERATOR SET OPERATOR Office [facility] [address] [place] [address] 09/03/2024 11:00 AM MOTOR GENERATOR SET OPERATOR Office Visit [facility] [address] [place] [address] Vilma Neves MD [address] [place] [phone] 09/03/2024 11:00 AM MOTOR GENERATOR SET OPERATOR Office Visit [facility] Infect[facility] Disease [address] [place] [address] Amairani Sigala MD [address] [place] [phone] 09/04/2024 8:30 AM MOTOR GENERATOR SET OPERATOR Office Visit [facility] Wound Care [address] [place] [address] 09/07/2024 8:30 AM MOTOR GENERATOR SET OPERATOR Office Visit [facility] Wound Care [address] [place] [phone] 09/08/2024 8:30 AM MOTOR GENERATOR SET OPERATOR Office Visit [facility] W[facility] Care [address] [place] [address] 09/09/2024 8:30 AM MOTOR GENERATOR SET OPERATOR Office Visit [facility] Wound Care [address] [place] [address] 09/10/2024 8:30 AM MOTOR GENERATOR SET OPERATOR Office Visit [facility] Wound Care [address] [place] [address] 09/10/2024 11:20 AM MOTOR GENERATOR SET OPERATOR Office Visit [facility] Wound Care [address] [place] [address] Vilma Neves MD [address] [place] [phone] 09/11/2024 8:30 AM MOTOR GENERATOR SET OPERATOR Office Visit [facility] Wound Care [address] [place] [phone] 09/14/2024 8:30 AM MOTOR GENERATOR SET OPERATOR Office Visit [facility] [address] [place] [address] 09/15/2024 8:30 AM MOTOR GENERATOR SET OPERATOR Office Visit [facility] Wound Care [address] [place] [address] documented as of this encounter Visit Diagnoses Diagnosis Diabetic ulcer of right midfoot associated with type 2 diabetes mellitus, 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
--- OUTSIDE RECORDS SUMMARY | 2024-08-21 10:21 | XMS_ITS | Encounter Summary ---
Author Organization [facility] er Address [address] [place] [address] Care Team Providers Care Elementary Science Teacher Name Role Phone Thu Bhagat PA-C Primary Care Provider [phone] Reason for Visit * Reason Comments Wound Care * Consultation (Routine) - Authorized Specialty Diagnoses / Procedures Referred By Contac t Referred To Contact Wound Care Diagnoses Cellulitis, unspecified Procedures Wound Clinic Thu Bhagat PA-C 1 [place] [address] [facility] Wound Care [address] [place] [address] Referral ID Status Reason Start Date Expiration Date V isits Requested Visits Authorized [id number] Authorized 06/17/2024 12/15/2024 99 99 Encounter Details Date Type Department Care Team (Late st Contact Info) Description 07/28/2024 11:30 AM CDT Office Visit [facility] Wound Care [address] [place] [address] [phone] [place] [address] [place] [phone] Diabetic ulcer of right midfoot associated [...] from your doctor or pharmacy? Never 06/06/2024 [facility] Utilities Answer Date Recorded In the past 12 months has e [employer], gas, oil, or water [employer] threatened to shut off services in your [...] week 06/06/2024 How often do you attend [facility] or restoration services? More than 4 times per year 06/06/2024 Do you belong to any clubs o r organizations such as jehovah's witness groups, unions, fraternal or athletic groups, or [...] Patient Health Questionnaire-2 Score 0 06/06/2024 [facility] - Occupational Stress Questionnaire Answer Date [...] any time in the past 12 [facility], were you homeless or living in a alf (including now)? No 06/06/2024 Interpersonal Safety Questionnaire [...] * Patient Instructions* Valeria Tobar RN - 07/28/2024 11:30 AM CDT Keep dressings clean and dry; call the wound clinic with any questions or concerns. documented in this encounter Progress Notes * Vilma Neves MD - 07/28/2024 11:30 AM CDT Advanced Wound Healing Visit Type: Established patient Subjective Francisco Javier Fung is a 69 y.o. male who presents today for wound check. Patient is being seen for follow-up of her right foot DFU Kenney 3 status post I&D and amputation with podiatry 06/08/2024. Heis accompanied by his Nicki. Home health was initiated last week and performed a dressing change. He continues to have negative pressure wound therapy at home but is currently not using it due to inadequate suction during recent placement. Patient maintains glycemic control and is at 100% nonweightbearing to the right lower extremity using an Aircast and wheelchair. He is currently doing well on oxygen adjuvant therapy and states that he denies any kind of sinus pressure ear pain shortness of breath chest pain, or headaches. The following portions of the patient's history were reviewed by a provider in this encounter and updated as appropriate: Tobacco Allergies Meds Problems Med Hx Surg Hx Fam Hx Objective Visit Vitals Smoking Status Never Wound: Wound #1 right dorsal foot ulceration down to muscle fascia and central area of small tunnel, wound bed contraction decreased slough increased granulation clear periwound no fluid collections or erythema, overall improved Procedure Note: Wound #1 Time-out: 1247 Grafting: Kerecis 4 cm?? micronized, 100% utilized, 5.76 cm?? 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 micronized, 100% utilized, 5.76 cm?? total grafted Dressing: Promogran, Mepilex. Return KCI wound VAC as goals of therapy have been met Off-loading: Continue wheelchair, Rooke boot Compression: Okay for full compression. No evidence of PAD on ANNA Antibiotics: No new orders Glucose optimization: Annual glycemic control. Continue working with PCP Details of today???s visit were discussed in detail as well as plan moving forward. The patient agrees with the proposed plan. Any and all questions and concerns regarding wound management were addressed at the conclusion of the visit. Return to the wound clinic: 1 week Vilma Neves MD documented in this encounter Plan of Treatment Upcoming Encounters Date Type Department Care Team (Late st Contact Info) Description 08/24/2024 8:30 AM ACQUISITION ANALYST Office Visit [facility] Wound Care [address] [place] [address] 08/24/2024 11:30 AM ACQUISITION ANALYST Office Visit [facility] [address], [place] [address] Angel oCombs, DPM [address] [place] [address] 08/25/2024 8:30 AM ACQUISITION ANALYST Office Visit [facility] Wound Care [address] [place] [address] 08/26/2024 8:30 AM ACQUISITION ANALYST Office Visit [facility] Wound Care [address] [place] [address] 08/27/2024 8:30 AM ACQUISITION ANALYST Office Visit [facility] Wound Care [address] [place] [address] 08/27/2024 11:00 AM ACQUISITION ANALYST Office Visit [facility] Wound Care [address] [place] [address] Vilma Neves MD [address] [place] [address] 08/28/2024 8:30 AM ACQUISITION ANALYST Office Visit [facility] Wound Care [address] [place] [address] 08/31/2024 8:30 AM ACQUISITION ANALYST Office Visit [facility] Wound Care [address] [place] [address] 09/01/2024 8:30 AM ACQUISITION ANALYST Office Visit [facility] Wound Care [address] [place] [address] 09/02/2024 8:30 AM ACQUISITION ANALYST Office Visit [facility] Hospital Wound Care [address] [place] [address] 09/03/2024 8:30 AM ACQUISITION ANALYST Office Visit [facility] Wound Care [address] [place] [address] 09/03/2024 11:00 AM ACQUISITION ANALYST Office Visit [facility] Care [address] [place] [address] Vilma Neves MD [address] [place] [phone] 09/03/2024 11:00 AM ACQUISITION ANALYST Office Visit [facility] Infectious Disease [address] [place] [address] Amairani Sigala MD [address] [place] [phone] 09/04/2024 8:30 AM ACQUISITION ANALYST Office Visit [facility] Wound Care [address] [place] [address] 09/07/2024 8:30 AM ACQUISITION ANALYST Office Visit [facility] Wound Care [address] [place] [address] 09/08/2024 8:30 AM ACQUISITION ANALYST Office Visit [facility] Wound Care [address] [place] [address] 09/09/2024 8:30 AM ACQUISITION ANALYST Office Visit [facility] Wound Care [address] [place] [address] 14410 09/10/2024 8:30 AM ACQUISITION ANALYST Office Visit [facility] Wound Care [address] [place] [address] 713[address] 09/10/2024 11:20 AM ACQUISITION ANALYST Office Visit [facility] Wound Care [address] [place] [address] Vilma Neves MD [address] [place] [phone] 09/11/2024 8:30 AM ACQUISITION ANALYST Office Visit [facility] Wound Care [address] [place] [address] 09/14/2024 8:30 AM ACQUISITION ANALYST Office Visit [facility] Wound Care [address] [place] [address] 713[address] 09/15/2024 8:30 AM ACQUISITION ANALYST Office Visit [facility] Wound Care [address] [place] [address] documented as of this encounter Visit Diagnoses Diagnosis Diabetic ulcer of right midfoot associated with type 2 diabetes mellitus, 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
--- OUTSIDE RECORDS SUMMARY | 2024-08-21 10:21 | XMS_ITS | Encounter Summary ---
Author Organization [facility] er Address [address] [place] [address] Care Team Providers Care Corrugator Supervisor Name Role Phone Thu Bhagat PA-C Primary Care Provider [phone] Reason for Visit * Reason Onset Date Comments [facility] would like a nurse call back 07/28/2024 Encounter Details Date Type Department Care Team (Late st Contact Info) Description 07/28/2024 Telephone [facility] Wound Care [address] [place] [address] [place] [address] [place] [phone] [facility] would like a nurse call back Social History Tobacco Use Types Packs/Day Years [...] from your doctor or pharmacy? Never 06/06/2024 [facility] Utilities Answer Date Recorded In the past [...] 06/06/2024 How often do you attend chur ch or adventism services? More than 4 times per year 06/06/2024 Do you belong to any clubs o r organizations such as bahai groups, unions, fraternal or athletic groups, or [...] Recorded Patient Health Questionnaire-2 Score 0 06/06/2024 [facility] - Occupational Stress [...] time in the past 12 m [facility], were you homeless or living in [...] Never 06/06/2024 How often does anyone, juancarolee kerns family and friends, threaten you with harm? Never 06/06/2024 Sex and Gender Information Value Date Recorded Sex Assigned at Not on file Gender Identity Not on file Sexual Orientation Not on file documented as of this encounter Miscellaneous Notes * Telephone Encounter - Riya Stewart RN - 08/03/2024 2:31 PM CDT Nena was called back and she said that she had received the wound care orders and that she was working on getting [facility]. She asked if the wound clinic could write DME orders for Francisco Javier to take to [facility] and this ticket writer explained that we could but that the [facility] might not cover the dressings. Nena said she would try to get a hold of the [facility] tomorrow regarding the dressings and then call us back if she needed anything further. No further questions or concerns at this time. * Telephone Encounter - Riay Stewart RN - 07/31/2024 4:31 PM CDT Message has been left for Nena to call back * Telephone Encounter - Ce Santiago - 07/28/2024 4:10 PM CDT Nena from [facility] called and would like a care order for Francisco Javier and also wants toknow about wound supplies, she would like a nurse to call her back at [phone]. The care order can be faxed to [phone] documented in this encounter Plan of Treatment Upcoming Encounters Date Type Department Care Team (Late st Contact Info) Description 08/24/2024 8:30 AM CORPORATE COMPLIANCE DIRECTOR Office Visit [facility] Wound Care [address] [place] [address] 08/24/2024 11:30 AM CORPORATE COMPLIANCE DIRECTOR Office [facility] [address] [place] [address] Angel Coombs, DPM [address] [place] [address] 08/25/2024 8:30 AM CORPORATE COMPLIANCE DIRECTOR Office Visit [facility] Wound Care [address] [place] [address] 08/26/2024 8:30 AM CORPORATE COMPLIANCE DIRECTOR Office Visit [facility] W[facility] [address] [place] [address] 08/27/2024 8:30 AM CORPORATE COMPLIANCE DIRECTOR Office Visit [facility] [address] [place] [address] 90598 08/27/2024 11:00 AM CORPORATE COMPLIANCE DIRECTOR Office Visit [facility] [address] [place] [address] Vilma Neves MD [address] [place] [phone] 08/28/2024 8:30 AM CORPORATE COMPLIANCE DIRECTOR Office Visit [facility] [address] [place] [address] 81409 08/31/2024 8:30 AM CORPORATE COMPLIANCE DIRECTOR Office Visit [facility] [address] [place] [address] 94[address] 09/01/2024 8:30 AM CORPORATE COMPLIANCE DIRECTOR Office Visit [facility] [address] [place] [address] 09/02/2024 8:30 AM CORPORATE COMPLIANCE DIRECTOR Office Visit [facility] [address] [place] [address] 19387 09/03/2024 8:30 AM CORPORATE COMPLIANCE DIRECTOR Office Visit [facility] [address] [place] [address] 29643 09/03/2024 11:00 AM CORPORATE COMPLIANCE DIRECTOR Office Visit [facility] [address] [place] [address] Vilma Neves MD [address] [place] [address] [phone] 09/03/2024 11:00 AM CORPORATE COMPLIANCE DIRECTOR Office Visit [facility] Infectious Disease [address] [place] [address] Amairani Sigala MD [address] [place] [phone] 09/04/2024 8:30 AM CORPORATE COMPLIANCE DIRECTOR Office Visit [facility] [address] [place] [address] 62043 09/07/2024 8:30 AM CORPORATE COMPLIANCE DIRECTOR Office Visit [facility] Wound Care [address] [place] [address] 91417 09/08/2024 8:30 AM CORPORATE COMPLIANCE DIRECTOR Office Visit [facility] [address] [place] [address] 92917 09/09/2024 8:30 AM CORPORATE COMPLIANCE DIRECTOR Office Visit [facility] [address] [place] [address] 16906 09/10/2024 8:30 AM CORPORATE COMPLIANCE DIRECTOR Office Visit [facility] Wound Care [address] [place] [address] 06995 09/10/2024 11:20 AM CORPORATE COMPLIANCE DIRECTOR Office Visit [facility] W[facility] Care [address] [place] [address] 6[address] Vilma Neves MD [address] [place] [phone] 09/11/2024 8:30 AM CORPORATE COMPLIANCE DIRECTOR Office Visit [facility] Wound Care [address] [place] [address] 15964 09/14/2024 8:30 AM CORPORATE COMPLIANCE DIRECTOR Office Visit [facility] Wound Care [address] [place] [address] 33802 09/15/2024 8:30 AM CORPORATE COMPLIANCE DIRECTOR Office Visit [facility] [address] [place] [address] 93369 documented as of this encounter Visit Diagnoses Not on filedocumented in this encounter Care Teams Corrugator Supervisor Relationship Specialty Start Date End Date Thu Bhagat PA-C 1 [place] [phone] PCP - General 11/26/22 documented as of this encounter
--- OUTSIDE RECORDS SUMMARY | 2024-08-21 10:21 | XMS_ITS | Encounter Summary ---
Author Organization [facility] er Address [address] [place] [address] Care Team Providers Care Assisted Living Assistant Name Role Phone Thu Bhagat PA-C Primary Care Provider [phone] Reason for Visit * Reason Comments Follow-up Right 2nd toe amp re check * Consultation (Routine) - Authorized Specialty Diagnoses / Procedures Referred By Kaley laguna Referred To Contact Podiatry Diagnoses Cellulitis, unspecified Procedures Podiatry Thu Bhagat PA-C [address] [place] [address] [facility] [address] [place] [address] Referral ID Status Reason Start Date Expiration Date V isits Requested Visits Authorized [id number] Authorized 07/02/2024 12/29/2024 99 99 Encounter Details Date Type Department Care Team (Latest Contact Info) Description 07/30/2024 3:00 PM CDT Office Visit [facility] [address], [place] [address] Angel Coombs DPHang [address] [place] [address] Diabetic polyneuropathy associated with type 2 diabetes mellitus (HCC) (Primary Dx); Ulcer of left foot 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) Social History Tobacco Use Types Packs/Day [...] from your doctor or pharmacy? Never 06/06/2024 [facility] Utilities Answer Date Recorded In the past 12 months has e [employer], [employer], oil, or water [employer] threatened to shut off services in your [...] often do you attend chur ch or advent services? More than 4 times [...] Patient Health Questionnaire-2 Score 0 06/06/2024 [facility] [...] were you homeless or living in a custodial (including now)? No 06/06/2024 Interpersonal Safety Questionnaire [...] as of this encounter Progress Notes * Angel Coombs, DPM - 07/30/2024 3:00 PM CDT Aline Mcintyre is a 69 y.o. male who presents for Follow-up (Right 2nd toe amp recheck ) History of Present Illness The patient is a 69-year-old male who presents for follow-up. He reports an improvement in his overall condition. He has been receiving Hyperbaric Oxygen Therapy(HBOT) twice daily, excluding Saturdays. A fish scale was applied to his wound on Saturday. His nextappointment with the crisis specialist is scheduled for the upcoming Saturday. Additionally, a home health aide visits every Saturday to change his dressings. Review of Systems Objective There were no vitals taken for this visit. Physical Exam Patient is alert and oriented x3 and in no acute distress. 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 Ulceration measured 50 mm long at its longest point by about 15 mm wide at its widest point and granulation tissue has healed up to the level of the skin. No purulence, no malodor, no signs of infection and no perimarginal erythema observed. Results Assessment & Plan 1. 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 The ulceration at the right partial second ray amputation site measures 50 mm long by 15 mm wide. It has granulation tissue healed up to the level of the skin with no purulence, malodor, signs of infection, or perimarginal erythema. The patient is currently undergoing hyperbaric oxygen therapy twice daily, except on Saturdays. The wound was redressed with Mepilex Ag, Danilo, and Volodymyr. He is advisedto remain nonweightbearing on the affected area and to continue regular follow-ups with Dr. Díaz for wound care. Follow-up Return in 2 weeks for follow up. Attestation Angel Coombs DPM documented in this encounter Plan of Treatment Upcoming Encounters Date Type Department Care Team (Late st Contact Info) Description 08/24/2024 8:30 AM TAPE FOLDING MACHINE OPERATOR Office Visit [facility] [place] Wound Care [address] [place] [address] 08/24/2024 11:30 AM TAPE FOLDING MACHINE OPERATOR Office Visit Podiatry [address] [place] [address] Angel Coombs DPM [address] [place] [phone] 08/25/2024 8:30 AM TAPE FOLDING MACHINE OPERATOR Office Visit [facility] [place] Wound Care [address] [place] [address] 63367 08/26/2024 8:30 AM TAPE FOLDING MACHINE OPERATOR Office Visit [facility] [place] W[facility] Care [address] [place] [address] 26312 08/27/2024 8:30 AM TAPE FOLDING MACHINE OPERATOR Office Visit [facility] [place] W[facility] Care [address] [place] [address] 38081 08/27/2024 11:00 AM TAPE FOLDING MACHINE OPERATOR Office Visit [facility] [place] W[facility] Care [address] [place] [address] 94[address] Vilma Neves MD [address] [place] [phone] 08/28/2024 8:30 AM TAPE FOLDING MACHINE OPERATOR Office Visit [facility] [place] Wound Care [address] [place] [address] 18720 08/31/2024 8:30 AM TAPE FOLDING MACHINE OPERATOR Office Visit [facility] [place] W[facility] Care [address] [place] [address] 17648 09/01/2024 8:30 AM TAPE FOLDING MACHINE OPERATOR Office Visit [facility] [place] W[facility] Care [address] [place] [address] 98402 09/02/2024 8:30 AM TAPE FOLDING MACHINE OPERATOR Office Visit [facility] W[facility] [address] [place] [address] 22038 09/03/2024 8:30 AM TAPE FOLDING MACHINE OPERATOR Office Visit [facility] W[facility] Care [address] [place] [address] 68274 09/03/2024 11:00 AM TAPE FOLDING MACHINE OPERATOR Office Visit [facility] W[facility] Care [address] [place] [address] 27086 Vilma Neves MD [address] [place] [phone] 09/03/2024 11:00 AM TAPE FOLDING MACHINE OPERATOR Office Visit [facility] [place] Infectious Disease [address] [place] [address] 21158 Amairani Sigala MD [address] [place] [phone] 09/04/2024 8:30 AM TAPE FOLDING MACHINE OPERATOR Office Visit [facility] Wound Care [address] [place] [address] 12933 09/07/2024 8:30 AM TAPE FOLDING MACHINE OPERATOR Office Visit [facility] W[facility] Care [address] [place] [address] 76624 09/08/2024 8:30 AM TAPE FOLDING MACHINE OPERATOR Office Visit [facility] W[facility] Care [address] [place] [address] 17408 09/09/2024 8:30 AM TAPE FOLDING MACHINE OPERATOR Office Visit [facility] W[facility] Care [address] [place] [address] 57031 09/10/2024 8:30 AM TAPE FOLDING MACHINE OPERATOR Office Visit [facility] W[facility] Care [address] [place] [address] 04238 09/10/2024 11:20 AM TAPE FOLDING MACHINE OPERATOR Office Visit [facility] W[facility] Care [address] [place] [address] Vilma Neves MD [address] [place] [phone] 09/11/2024 8:30 AM TAPE FOLDING MACHINE OPERATOR Office Visit [facility] W[facility] Care [address] [place] [address] 29[address] 09/14/2024 8:30 AM TAPE FOLDING MACHINE OPERATOR Office Visit [facility] Care [address] [place] [address] 12329 09/15/2024 8:30 AM TAPE FOLDING MACHINE OPERATOR Office Visit [facility] [address] [place] [address] 50496 documented as of this encounter Visit Diagnoses Diagnosis Diabetic polyneuropathy associated with type 2 diabetes mellitus (HCC)- Primary Ulcer of left foot 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) documented in this encounter Care Teams Assisted Living Assistant Relationship Specialty Start Date End Date Thu Bhagat PA-C 1 [place] [phone] PCP - General 11/26/22 documented as of this encounter
--- OUTSIDE RECORDS SUMMARY | 2024-08-21 10:21 | XMS_ITS | Encounter Summary ---
Author Organization [facility] er Address [address] [place] [address] Care Team Providers Care Crucible Furnace Tender Name Role Phone Thu Bhagat PA-C Primary Care Provider [phone] Reason for Visit * Reason Comments Follow-up Right foot infection * Consultation (Routine) - Authorized Specialty Diagnoses / Procedures Referred By Kaley t Referred To Contact Infectious Diseases Diagnoses Cellulitis, unspecified Procedures Infectious Disease Thu Bhagat PA-C [address] [place] [phone] [facility] Infectious Diseas [address] [place] [id number] Referral ID Status Reason Start Date Expiration Date V isits Requested Visits Authorized [id number] Authorized 07/09/2024 07/09/2025 99 99 Encounter Details Date Type Department Care Team ([facility] st Contact Info) Description 08/03/2024 11:00 AM CDT Office Visit [facility] Infectious Disease [address] [place] [phone] [place] [address] [place] [phone] Infection of right foot (Primary Dx) Social History Tobacco Use Types [...] the past 12 months has th e [employer], gas, oil, or water company threatened to [...] How often do you attend chur or pentecostalism services? More than 4 times per year 06/06/2024 Do you belong to any clubs o r organizations such as alevism groups, unions, fraternal or athletic groups, or [...] Patient Health Questionnaire-2 Score 0 06/06/2024 [facility] - Occupational Stress Questionnaire Answer Date [...] any time in the past 12 m [facility], were you homeless or living in [...] Sign Reading Time Taken Comments Blood Pressure 118/85 08/03/2024 11:15 AM CDT Pulse 76 08/03/2024 11:15 AM CDT Temperature 36.6 ??C (97.8 ??F) 08/03/2024 11:15 AM C DT Respiratory Rate 20 08/03/2024 11:15 AM CDT Oxygen Saturation 96% 08/03/2024 11:15 AM CDT Inhaled Oxygen Concentration - - Weight - - Height - - Body Mass Index - - documented in this encounter Progress Notes * Josee Funk RN - 08/03/2024 11:00 AM CDT Nurse Note Patient presented wearing a Rooke boot, dressing removed from right foot was noted to be sliding off not intact with moderate amount of yellow drainage noted on foam. Picture taken for EMR. Patient denies pain. Cassie-wound skin is dry and scaley. Temporary dressing applied as patient states home health nurse will be coming to change my dressing Hydrofera Blue Ready applied over woundbed okayed by Dr. Shubham Strickland, covered with ABD pad, secured with rolled gauze and medipore tape and white stockinette and tubigrip single layer. * Amairani Sigala MD - 08/03/2024 11:00 AM CDT INFECTIOUS DISEASES progress note 08/03/24 Reason For Consult: Diabetic foot infection /abscess in the foot Subjective Last seen 2 weeks ago Patient is seen at the wound care as a follow-up. He has had surgery on 06/08 and 06/12 over his right foot. He was discharged home, and has been doing infusion with ertapenem daily. Denies Fever/ No chills Has had a VAC for 2 weeks No n/v/d HISTORY OF PRESENT ILLNESS It is my [...] 2 (two) times a day 10/01/23 Yes Jake Shah MD doxycycline (Vibramycin) 100 MG capsule Take [...] Do not crush, chew, or split. Yes Jake Shah MD lisinopril (ZESTRIL) 10 MG tablet Take [...] Units by mouth 1 (one) time each dayProviJake bauman MD Objective PHYSICAL EXAM Visit Vitals BP 118/85 (BP Location: Left arm, Patient Position: Sitting, BP Cuff Size: Large adult) Pulse 76 Temp 36.6 ??C (97.8 ??F) (Temporal) Resp 20 SpO2 96% Smoking Status Never Physical Exam GENERAL: No acute distress. HEENT: OP clear - non icteric sclera, - no thrush, no ulcers NECK: Supple, CHEST: comfortable breathing ABDOMEN: Soft. Nontender. Nondistended. Extremities: Right foot open wound seen at the amputation site, decent granulation tissue--- No drainage and it does not probe to bone No major undermining SKIN: Sweat rash noted over the back NEURO: Awake, alert, and oriented to baseline. No acute focal sensorimotor deficits. PICC line site is clean LAB STUDIES Lab Results Component Value Date WBC 7.0 07/14/2024 HGB 16.4 07/14/2024 HCT 49.2 07/14/2024 MCV 90.4 07/14/2024 PLT 225 07/14/2024 Lab Results Component Value Date GLUCOSE 86 07/14/2024 CALCIUM 9.6 07/14/2024 NA 139 07/14/2024 K 4.3 07/14/2024 CO2 24 07/14/2024 CL 105 07/14/2024 BUN 17 07/14/2024 CREATININE 1.12 07/14/2024 Lab Results Component Value Date CRP >320.0 (H) 06/06/2024 Lab Results Component Value Date ALT 20 07/14/2024 AST 25 07/14/2024 ALKPHOS 61 07/14/2024 BILITOT 1.6 (H) 07/14/2024 No results found for: [id number] No results found for: HAV, HEPAIGM, HEPBIGM, [...] appears to be clean, good granulation tissue. HBO to continue Recommendations: - Continue cefadroxil 1000 mg po BID - renewed for now - blood work today -Return to clinic in 2 weeks. Discussed side effects of the antibiotic with the patient Patient is encouraged to drink Kefir, one cup a day- bought in any supermarket, in order to decrease the risk of diarrhea associated to C difficile infection Side effects of the antibiotic discussed with patient in details Greater than 40 minutes of total time spent in patient's care such as (preparation/review of tests,obtaining/reviewing separately obtained history, medically appropriate examination/evaluation, counseling/educating patient/family/caregiver, ordering medications/tests/procedures, referring/communicating with other health manager managed care not separately reported, documentation, and independentlyinterpreting results not separately reported, communicating results to the patient/family/caregiver, and care coordination not separately reported). Amairani Strickland MD Infectious diseases Revenue Coordinator documented in this encounter Plan of Treatment Upcoming Encounters Date Type Department Care Team (Late st Contact Info) Description 08/24/2024 8:30 AM AUTOMATIC LATHE SETTER Office Visit [facility] [address] [place] [address] 08/24/2024 11:30 AM AUTOMATIC LATHE SETTER Office Visit Podiatry [address] [place] [address] Angel Coombs, DPM [address] [place] [phone] 08/25/2024 8:30 AM AUTOMATIC LATHE SETTER Office Visit [facility] [address] [place] [phone] 08/26/2024 8:30 AM AUTOMATIC LATHE SETTER Office Visit [facility] [address] [place] [phone] 08/27/2024 8:30 AM AUTOMATIC LATHE SETTER Office Visit [facility] [address] [place] [phone] 08/27/2024 11:00 AM AUTOMATIC LATHE SETTER Office Visit [facility] [address] [place] [phone] Vilma Neves MD [address] [place] [phone] 08/28/2024 8:30 AM AUTOMATIC LATHE SETTER Office Visit [facility] [address] [place] [phone] 08/31/2024 8:30 AM AUTOMATIC LATHE SETTER Office Visit [facility] [address] [place] [phone] 09/01/2024 8:30 AM AUTOMATIC LATHE SETTER Office Visit [facility] [address] [place] [phone] 09/02/2024 8:30 AM AUTOMATIC LATHE SETTER Office Visit [facility] [address] [place] [phone] 09/03/2024 8:30 AM AUTOMATIC LATHE SETTER Office Visit [facility] [address] [place] [phone] 09/03/2024 11:00 AM AUTOMATIC LATHE SETTER Office Visit [facility] [address] [place] [phone] Vilma Neves MD [address] [place] [phone] 09/03/2024 11:00 AM AUTOMATIC LATHE SETTER Office Visit [facility] Infectious Disease [address] [place] [phone] Amairani Sigala MD [address] [place] [phone] 09/04/2024 8:30 AM AUTOMATIC LATHE SETTER Office Visit [facility] [address] [place] [phone] 09/07/2024 8:30 AM AUTOMATIC LATHE SETTER Office Visit [facility] [address] [place] [phone] 09/08/2024 8:30 AM AUTOMATIC LATHE SETTER Office Visit [facility] [address] [place] [phone] 09/09/2024 8:30 AM AUTOMATIC LATHE SETTER Office Visit [facility] [address] [place] [phone] 09/10/2024 8:30 AM AUTOMATIC LATHE SETTER Office Visit [facility] [address] [place] [phone] 09/10/2024 11:20 AM AUTOMATIC LATHE SETTER Office Visit [facility] [address] [place] [phone] Vilma Neves MD [address] [place] [phone] 09/11/2024 8:30 AM AUTOMATIC LATHE SETTER Office Visit [facility] [address] [place] [phone] 09/14/2024 8:30 AM AUTOMATIC LATHE SETTER Office Visit [facility] [address] [place] [phone] 09/15/2024 8:30 AM AUTOMATIC LATHE SETTER Office Visit [facility] [address] [place] [phone] documented as of this encounter Results * (ABNORMAL) Basic metabolic panel (08/03/2024 12:12 PM CDT) [facility] Sodium 139 135 - 145 mEq/L 08/03/2024 2:09 PM [facility] Potassium 4.5 3.5 - 5.1 mEq/L 08/03/2024 2:09 PM [facility] Chloride 105 98 - 107 mEq/L 08/03/2024 2:09 PM [facility] CO2 25 22 - 31 mmol/L 08/03/2024 2:09 PM [facility] Creatinine 1.06 0.60 - 1.40 mg/dL 08/03/2024 2:09 PM [facility] BUN 21 5 - 25 mg/dL 08/03/2024 2:09 PM [facility] Glucose 102(H) 70 - 100 mg/dL 08/03/2024 2:09 PM [facility] Calcium, Total,S 9.9 8.4 - 10.2 mg/dL 08/03/2024 2:09 PM [facility] Anion Gap 9 4 - 13 08/03/2024 2:09 PM [facility] Comment: The anion gap is calculated with the following formula: AGAP = Na ? (Cl + CO2). Fasting? Unknown 08/03/2024 12:12 PM [facility] Blood (Blood, Venous) 08/03/2024 12:12 PM CDT 08/03/2024 12:37 PM CDT Amairani Strickland MD LAB BLOOD ORDERABL ES [facility] [address] [place] [address] * ALT (08/03/2024 12:12 PM CDT) ALT (SGPT) 22 0 - 49 U/L 08/03/2024 2:09 PM [facility] Blood (Blood, Venous) 08/03/2024 12:12 PM CDT 08/03/2024 12:37 PM CDT Amairani Strickland MD LAB BLOOD ORDERABL ES Performing Organization Address City/[facility]/ZIP Co de Phone Number [facility] [address] [place] [address] * AST (08/03/2024 12:12 PM CDT) AST 31 8 - 48 U/L 08/03/2024 2:09 PM CDT [facility] Blood (Blood, Venous) 08/03/2024 12:12 PM CDT 08/03/2024 12:37 PM CDT Amairani Strickland MD LAB BLOOD ORDERABL ES Performing Organization Address [facility] Co de Phone Number [facility] [address] [place] [address] * (ABNORMAL) CBC ([employer]) (08/03/2024 12:12 PM CDT) Pathologist [facility] WBC 6.8 3.5 - 10.5 K/uL 08/03/2024 1:01 PM [facility] RBC 5.49 4.30 - 5.70 M/uL 08/03/2024 1:01 PM [facility] Hemoglobin 16.1 13.5 - 17.5 g/dL 08/03/2024 1:01 PM [facility] Hematocrit 50.3(H) 38.0 - 50.0 % 08/03/2024 1:01 PM [facility] Platelets 212 150 - 450 K/uL 08/03/2024 1:01 PM [facility] MCV 91.6 81.2 - 95.1 fL 08/03/2024 1:01 PM [facility] MCH 29.3 26.0 - 32.0 pg 08/03/2024 1:01 PM [facility] MCHC 32.0 32.0 - 36.0 g/dL 08/03/2024 1:01 PM [facility] RDW 14.9 11.8 - 15.6 % 08/03/2024 1:01 PM CDT [facility] NRBC %, Automated 0 % 08/03/2024 1:01 PM CDT [facility] NRBC Absolute, Autmated 0.00 K/uL 08/03/2024 1:01 PM CDT [facility] Comment: 0-4 Days: 0.01 -0.02 >=5 Days: 0.00 Blood (Blood, Venous) 08/03/2024 12:12 PM CDT 08/03/2024 12:37 PM CDT Amairani Strickland MD LAB BLOOD ORDERABL ES [facility] [address] [place] [address] documented in this encounter Visit Diagnoses Diagnosis Infection of right foot- Primary documented in this encounter Care Teams Crucible Furnace Tender Relationship Specialty Start Date End Date Thu Bhagat PA-C [address] [place] [phone] PCP - General 11/26/22 documented as of this encounter
--- OUTSIDE RECORDS SUMMARY | 2024-08-21 10:21 | XMS_ITS | Encounter Summary ---
Author Organization [facility] er Address [address] [place] [address] Care Team Providers Care Sheet Music Salesperson Name Role Phone Thu Bhagat PA-C Primary Care Provider [phone] Reason for Visit * Reason Comments HBO * Consultation (Routine) - Authorized Specialty Diagnoses / Procedures Referred By Contac t Referred To Contact Wound Care Diagnoses Type 2 diabetes mellitus with foot ulcer Procedures Wound Care HBOT Thu Bhagat PA-C [address] [place] [phone] [facility] W[facility] Care [address] [place] [address] Referral ID Status Reason Start Date Expiration Date V isits Requested Visits Authorized [id number] Authorized 07/02/2024 10/11/2024 99 99 Encounter Details Date Type Department Care Team (Late st Contact Info) Description 07/22/2024 8:30 AM CDT Office Visit [facility] [address] [place] [address] [place] [address] [place] [phone] Diabetic ulcer of right midfoot associated [...] from your doctor or pharmacy? Never 06/06/2024 [facility] Utilities Answer Date Recorded In the past 12 months has e [email or web address], oil, or water [employer] threatened to shut off services in your [...] 06/06/2024 How often do you attend [facility] or rastafari services? More than 4 times per year 06/06/2024 Do you belong to any clubs o r organizations such as zoroastrian groups, unions, fraternal or athletic groups, or [...] Recorded Patient Health Questionnaire-2 Score 0 06/06/2024 [facility] - Occupational Stress Questionnaire Answer Date [...] any time in the past [facility], were you homeless or living in [...] Sign Reading Time Taken Comments Blood Pressure 115/82 07/22/2024 10:44 AM CDT Pulse 60 07/22/2024 10:44 AM CDT Temperature 36.2 ??C (97.2 ??F) 07/22/2024 10:44 AM C DT Respiratory Rate - - Oxygen Saturation 99% 07/22/2024 10:44 AM CDT Inhaled Oxygen Concentration - - Weight - - Height - - Body Mass Index - - documented in this encounter Progress Notes * Riya Stewart RN - 07/22/2024 8:30 AM CDT HYPERBARIC OXYGEN THERAPY TREATMENT # 7 2.0 Atmospheres Absolute for 90 minutes without air-breaks Chamber: Chamber Number: [id number] Patient presented wearing off loading device to right foot, ordered dressings in place. Vitals: 07/22/24 1044 BP: 115/82 Pulse: 60 Temp: 36.2 ??C (97.2 ??F) SpO2: 99% Glucose Readings Pre Capillary Blood Glucose: 223 Post Capillary Blood Glucose: 145 Blood Glucose Reference Range: 65-95 If patient diabetic, was the Glycemia Interventions Protocol ordered by the physician? : Yes Hyperbaric Monitor Indications: Diabetic Kenney Grade 3 or Higher Treatment Start Time - Compression Begins at 1 ZAID: 0849 Rate Set PSI / Min: 1.5 Pressure Reached: 0900 ZAID: 2.0 Decompression Begins: 1030 Treatment End Time to 1 ZAID: 1040 Total Treatment Time: 111 Symptoms Noted During [...] Ear Evaluation Ear Evaluation Left Ear Clear: No (per provider) Right Ear Clear: No (per provider) Left Tympanic Membrane Visible and Intact: No (unable to see tympanic membrane per provider) Right Tympanic Membrane Visible and Intact: No (unable to see tympanic membrane per provider) Left Color: Iridescent (per provider) Right Color: Iridescent (per provider) Left Pressure Equalization Tubes in Place: N / A (per provider) Right Pressure Equalization Tubes in Place: N / A (per provider) Left Irrigated: No (per provider) Right Irrigated: No (per provider) Associated attestation - Vilma Neves MD - 07/23/2024 11:15 AM CDT HBOT Physician Documentation: Wound Examined? No. Please see weekly wound visit note for detailed wound findings for this corresponding week Patient Cleared for HBO? Yes Continue HBO? Yes TEED Score: Pre-Treatment bilateral cerumen impaction with plans for irrigation with ENT later this week 07/23/2024 Post Treatment bilateral cerumen impaction with plans for irrigation with ENT later this week 07/23/2024 PE Tubes? No Myringotomy Performed? No Breath Sounds: CTAB Other Notes: Recommend continuing with HBOT as wound is progressing well as noted in wound visit note each week documented in this encounter Plan of Treatment Upcoming Encounters Date Type Department Care Team (Late st Contact Info) Description 08/24/2024 8:30 AM INTERNAL AUDIT SENIOR MANAGER Office Visit [facility] Wound Care [address] [place] [address] 08/24/2024 11:30 AM INTERNAL AUDIT SENIOR MANAGER [facility] [address], [place] [address] Angel Coombs, DPM [address] [place] [phone] 08/25/2024 8:30 AM INTERNAL AUDIT SENIOR MANAGER Office Visit [facility] W[facility] Care [address] [place] [address] 08/26/2024 8:30 AM INTERNAL AUDIT SENIOR MANAGER Office Visit [facility] W[facility] Care [address] [place] [address] 08/27/2024 8:30 AM INTERNAL AUDIT SENIOR MANAGER Office Visit [facility] Wound Care [address] [place] [address] 08/27/2024 11:00 AM INTERNAL AUDIT SENIOR MANAGER Office Visit [facility] W[facility] Care [address] [place] [address] [place] [address] [place] [phone] 08/28/2024 8:30 AM INTERNAL AUDIT SENIOR MANAGER Office Visit [facility] Wound Care [address] [place] [address] 08/31/2024 8:30 AM INTERNAL AUDIT SENIOR MANAGER Office Visit [facility] W[facility] Care [address] [place] [address] 09/01/2024 8:30 AM INTERNAL AUDIT SENIOR MANAGER Office Visit [facility] W[facility] Care [address] [place] [address] 09/02/2024 8:30 AM INTERNAL AUDIT SENIOR MANAGER Office Visit [facility] [address] [place] [address] 09/03/2024 8:30 AM INTERNAL AUDIT SENIOR MANAGER Office Visit [facility] [address] [place] [address] 09/03/2024 11:00 AM INTERNAL AUDIT SENIOR MANAGER Office Visit [facility] W[facility] Care [address] [place] [address] Vilma Neves MD [address] [place] [phone] 09/03/2024 11:00 AM INTERNAL AUDIT SENIOR MANAGER Office Visit [facility] Infectious Disease [address] [place] [address] Amairani Sigala MD [address] [place] [phone] 09/04/2024 8:30 AM INTERNAL AUDIT SENIOR MANAGER Office Visit [facility] [address] [place] [address] 09/07/2024 8:30 AM INTERNAL AUDIT SENIOR MANAGER Office Visit [facility] [address] [place] [address] 09/08/2024 8:30 AM INTERNAL AUDIT SENIOR MANAGER Office Visit [facility] W[facility] Care [address] [place] [address] 09/09/2024 8:30 AM INTERNAL AUDIT SENIOR MANAGER Office Visit [facility] [address] [place] [address] 09/10/2024 8:30 AM INTERNAL AUDIT SENIOR MANAGER Office Visit [facility] [address] [place] [address] 09/10/2024 11:20 AM INTERNAL AUDIT SENIOR MANAGER Office Visit [facility] [address] [place] [address] Vilma Neves MD [address] [place] [phone] 09/11/2024 8:30 AM INTERNAL AUDIT SENIOR MANAGER Office Visit [facility] Wound Care [address] [place] [phone] 09/14/2024 8:30 AM INTERNAL AUDIT SENIOR MANAGER Office Visit [facility] W[facility] Care [address] [place] [phone] 09/15/2024 8:30 AM INTERNAL AUDIT SENIOR MANAGER Office Visit [facility] W[facility] Care [address] [place] [phone] documented as of this encounter Procedures Procedure Name Priority Date/Time Associated Diagnosis Comments POCT PRECISION GLUCOSE Routine 07/23/2024 11:58 AM CDT POCT PRECISION GLUCOSE Routine 07/23/2024 9:44 AM CDT POCT PRECISION GLUCOSE Routine 07/22/2024 10:46 AM CDT POCT PRECISION GLUCOSE Routine 07/22/2024 8:35 AM CDT documented in this encounter Results * (ABNORMAL) POCT Precision glucose (07/23/2024 11:58 AM CDT) [facility] Glucose Blood, POC 184(H) 70 - 100 mg/dL 07/23/2024 11:59 AM CDT [facility] Comment: Meter ID: [id number] Capillary whole blood specimens should not be used in patients receiving intensive medical intervention/therapy because of the potential for pre-analytical collection error and specifically in patients with decreased peripheral blood flow, as it may not truly reflect the patient? s true physiological state. Examples include, but are not limited to, severe hypotension, shock, hyperosmolar-hyperglycemia (with or without ketosis), and severe dehydration. 07/23/2024 11:5 8 AM CDT 07/23/2024 11:59 AM CDT Thu Bhagat PA-C LAB POINT OF CARE TE ST DOCKED DEVICE UNSOLICITED RESULTS [facility] [address] [place] [address] * (ABNORMAL) POCT Precision glucose (07/23/2024 9:44 AM CDT) Glucose Blood, POC 192(H) 70 - 100 mg/dL 07/23/2024 9:45 AM CDT [facility] Comment: Meter ID: [id number] Capillary whole blood specimens should not be used in patients receiving intensive medical intervention/therapy because of the potential for pre-analytical collection error and specifically in patients with decreased peripheral blood flow, as it may not truly reflect the patient? s true physiological state. Examples include, but are not limited to, severe hypotension, shock, hyperosmolar-hyperglycemia (with or without ketosis), and severe dehydration. 07/23/2024 9:44 AM CDT 07/23/2024 9:45 AM CDT Thu Bhagat PA-C LAB POINT OF CARE TE ST DOCKED DEVICE UNSOLICITED RESULTS Performing Organization Address [facility] de Phone Number [facility] [address] [place], [place] [phone] * (ABNORMAL) POCT Precision glucose (07/22/2024 10:46 AM CDT) Glucose Blood, POC 145(H) 70 - 100 mg/dL 07/22/2024 10:46 AM CDT [facility] Comment: Meter ID: [id number] Capillary whole blood specimens should not be used in patients receiving intensive medical intervention/therapy because of the potential for pre-analytical collection error and specifically in patients with decreased peripheral blood flow, as it may not truly reflect the patient? s true physiological state. Examples include, but are not limited to, severe hypotension, shock, hyperosmolar-hyperglycemia (with or without ketosis), and severe dehydration. 07/22/2024 10:4 6 AM CDT 07/22/2024 10:47 AM CDT Thu Bhagat PA-C LAB POINT OF CARE TE ST DOCKED DEVICE UNSOLICITED RESULTS Performing Organization Address [facility] Co de Phone Number [facility] [address] [place] [phone] * (ABNORMAL) POCT Precision glucose (07/22/2024 8:35 AM CDT) Glucose Blood, POC 223(H) 70 - 100 mg/dL 07/22/2024 8:35 AM CDT [facility] Comment: Meter ID: [id number] Capillary whole blood specimens should not be used in patients receiving intensive medical intervention/therapy because of the potential for pre-analytical collection error and specifically in patients with decreased peripheral blood flow, as it may not truly reflect the patient? s true physiological state. Examples include, but are not limited to, severe hypotension, shock, hyperosmolar-hyperglycemia (with or without ketosis), and severe dehydration. 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
--- OUTSIDE RECORDS SUMMARY | 2024-08-21 10:21 | XMS_ITS | Encounter Summary ---
Author Organization [facility] er Address [address] [place] [address] Care Team Providers Care Hod Carrier Name Role Phone Thu Bhagat PA-C Primary Care Provider Reason for Visit * Reason Comments HBO * Consultation (Routine) - Authorized Specialty Diagnoses / Procedures Referred By Contac t Referred To Contact Wound Care Diagnoses Type 2 diabetes mellitus with foot ulcer Procedures Wound Care HBOT Thu Bhagat PA-C [address] [place] [phone] [facility] Wound Care [address] [place] [address] Referral ID Status Reason Start Date Expiration Date V isits Requested Visits Authorized [id number] Authorized 07/02/2024 10/11/2024 99 99 Encounter Details Date Type Department Care Team (Late st Contact Info) Description 07/30/2024 8:30 AM CDT Office Visit [facility] [address] [place] [phone] [place] [address] [place] [phone] Diabetic ulcer of right midfoot associated [...] from your doctor or pharmacy? Never 06/06/2024 [facility] Utilities Answer Date Recorded In the past 12 months has e [employer], [employer], oil, or water company threatened to [...] 06/06/2024 How often do you attend [facility] or mormon services? More than 4 times per year [...] Recorded Patient Health Questionnaire-2 Score 0 06/06/2024 [facility] - Occupational Stress Questionnaire Answer Date Recorded [...] were you homeless or living in a correction (including now)? No 06/06/2024 Interpersonal Safety Questionnaire [...] Sign Reading Time Taken Comments Blood Pressure 116/83 07/30/2024 10:00 AM CDT Pulse 78 07/30/2024 10:00 AM CDT Temperature 35.9 ??C (96.7 ??F) 07/30/2024 10:00 AM C DT Respiratory Rate 19 07/30/2024 10:00 AM CDT Oxygen Saturation - - Inhaled Oxygen Concentration - - Weight - - Height - - Body Mass Index - - documented in this encounter Progress Notes * Karley Dickens, RAMÓN - 07/30/2024 8:30 AM CDT HYPERBARIC OXYGEN THERAPY TREATMENT # 13 2.0 Atmospheres Absolute for 90 minutes without air-breaks Chamber: Chamber Number: [id number] Patient presented wearing off loading device to right foot, ordered dressings in place. Vitals: 07/30/24 1000 BP: 116/83 Pulse: 78 Resp: 19 Temp: (!) 35.9 ??C (96.7 ??F) Glucose Readings Pre Capillary Blood Glucose: 170 Post Capillary Blood Glucose: 179 Blood Glucose Reference Range: 65-95 If patient diabetic, was the Glycemia Interventions Protocol ordered by the physician? : Yes (Boost) Hyperbaric Monitor Indications: Diabetic Kenney Grade 3 or Higher Treatment Start Time - Compression Begins at 1 ZAID: 0837 Rate Set PSI / Min: 2 Pressure Reached: 0845 ZAID: 2.0 Decompression Begins: 1015 Treatment End Time to 1 ZAID: 1022 Total Treatment Time: 105 Symptoms Noted During Treatment: None Hyperbaric Pre-Instpection Hyperbaric Pre-Inspection Consent Obtained: Yes Is there a TCOM ordered for the patient?: Completed Patient voided/noonan secured and emptied: Yes When did the patient last eat?: 0730 Last dose of injectable or oral hypoglycemic agent: 714 Ostomy pouch emptied and vented (if applicable): N/A All implantable devices assessed, documented, and approved: Yes Intravenous access site secured and placed: N/A Valuables secured: Yes Linens are cotton: Yes Cotton Gown: Yes Glasses Removed: Yes Jewelery Removed: Yes Makeup Removed: Yes Hair Care Products Removed: Yes Wigs or Hair Pieces Removed: Yes Nail khmer cured greater than 10 hours: Yes Personal oil-based products/skin lotions/body lotions: Yes Dentures Removed: Yes Hearing Aids Removed: N/A Prosthetics Removed: N/A [...] Associated attestation - Vilma Neves MD - 07/30/2024 12:53 PM CDT HBOT Physician Documentation: Wound Examined? [...] Contact Info) Description 08/24/2024 8:30 AM MANAGER FARM Office Visit [facility] [address] [place] [address] 08/24/2024 11:30 AM MANAGER FARM Office [facility] [address] [place] [address] Angel Coombs, DPM [address] [place] [phone] 08/25/2024 8:30 AM MANAGER FARM Office Visit [facility] [address] [place] [address] 08/26/2024 8:30 AM MANAGER FARM Office Visit [facility] [address] [place] [address] 08/27/2024 8:30 AM MANAGER FARM Office Visit [facility] [address] [place] [address] 08/27/2024 11:00 AM MANAGER FARM Office Visit [facility] [address] [place] [address] Vilma Neves MD [address] [place] [phone] 08/28/2024 8:30 AM MANAGER FARM Office Visit [facility] [address] [place] [address] 08/31/2024 8:30 AM MANAGER FARM Office Visit [facility] [address] [place] [address] 09/01/2024 8:30 AM MANAGER FARM Office Visit [facility] [address] [place] [address] 09/02/2024 8:30 AM MANAGER FARM Office Visit [facility] [address] [place] [address] 09/03/2024 8:30 AM MANAGER FARM Office Visit [facility] [address] [place] [address] 09/03/2024 11:00 AM MANAGER FARM Office Visit [facility] [address] [place] [address] Vilma Neves MD [address] [place] [phone] 09/03/2024 11:00 AM MANAGER FARM Office Visit [facility] Infectious Disease [address] [place] [address] Amairani Sigala MD [address] [place] [phone] 09/04/2024 8:30 AM MANAGER FARM Office Visit [facility] Wound Care [address] [place] [address] 09/07/2024 8:30 AM MANAGER FARM Office Visit [facility] [address] [place] [address] 09/08/2024 8:30 AM MANAGER FARM Office Visit [facility] [address] [place] [address] 09/09/2024 8:30 AM MANAGER FARM Office Visit [facility] [address] [place] [address] 09/10/2024 8:30 AM MANAGER FARM Office Visit [facility] [address] [place] [phone] 09/10/2024 11:20 AM MANAGER FARM Office Visit [facility] [address] [place] [phone] Vilma Neves MD [address] [place] [phone] 09/11/2024 8:30 AM MANAGER FARM Office Visit [facility] [address] [place] [address] 09/14/2024 8:30 AM MANAGER FARM Office Visit [facility] [address] [place] [address] 09/15/2024 8:30 AM MANAGER FARM Office Visit [facility] Wound Care [address] [place] [address] documented as of this encounter Procedures Procedure Name Priority Date/Time Associated Diagnosis Comments POCT PRECISION GLUCOSE Routine 07/30/2024 10:27 AM CDT POCT PRECISION GLUCOSE Routine 07/30/2024 8:25 AM CDT documented in this encounter Results * (ABNORMAL) POCT Precision glucose (07/30/2024 10:27 AM CDT) Glucose Blood, POC 179(H) 70 - 100 mg/dL 07/30/2024 10:[address] [facility] Comment: Meter ID: [id number] Capillary whole blood specimens should not be used in patients receiving intensive medical intervention/therapy because of the potential for pre-analytical collection error and specifically in patients with decreased peripheral blood flow, as it may not truly reflect the patient? s true physiological state. Examples include, but are not limited to, severe hypotension, shock, hyperosmolar-hyperglycemia (with or without ketosis), and severe dehydration. 07/30/2024 10:2 7 AM CDT 07/30/2024 10:28 AM CDT Vilma Neves MD LAB POINT OF CARE TE ST DOCKED DEVICE UNSOLICITED RESULTS [facility] [address] [place] [phone] * (ABNORMAL) POCT Precision glucose (07/30/2024 8:25 AM CDT) Glucose Blood, POC 170(H) 70 - 100 mg/dL 07/30/2024 8:[address] [facility] Comment: Meter ID: [id number] Capillary whole blood specimens should not be used in patients receiving intensive medical intervention/therapy because of the potential for pre-analytical collection error and specifically in patients with decreased peripheral blood flow, as it may not truly reflect the patient? s true physiological state. Examples include, but are not limited to, severe hypotension, shock, hyperosmolar-hyperglycemia (with or without ketosis), and severe dehydration. 07/30/2024 8:25 AM CDT 07/30/2024 8:28 AM CDT Vilma Neves MD LAB POINT OF CARE TE ST DOCKED DEVICE UNSOLICITED RESULTS 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
--- OUTSIDE RECORDS SUMMARY | 2024-08-21 10:21 | XMS_ITS | Encounter Summary ---
Author Organization [facility] er Address [address] [place] [id number] Care Team Providers Care Guest History Clerk Name Role Phone Thu Bhagat PA-C Primary Care Provider [phone] Reason for Visit * Reason Comments HBO * Consultation (Routine) - Authorized Specialty Diagnoses / Procedures Referred By Contac t Referred To Contact Wound Care Diagnoses Type 2 diabetes mellitus with foot ulcer Procedures Wound Care HBOT Thu Bhagat PA-C [address] [place] [phone] [facility] Wound Care [address] [place] [address] Referral ID Status Reason Start Date Expiration Date V isits Requested Visits Authorized [id number] Authorized 07/02/2024 10/11/2024 99 99 Encounter Details Date Type Department Care Team (Late st Contact Info) Description 07/23/2024 10:15 AM CDT Office Visit [facility] [address] [place] [phone] [place] [address] [place] [phone] Diabetic ulcer of right midfoot associated [...] from your doctor or pharmacy? Never 06/06/2024 [facility] Utilities Answer Date Recorded In the past 12 months has e [employer], gas, oil, or water company threatened to [...] week 06/06/2024 How often do you attend [facility] or restoration services? More than 4 [...] Recorded Patient Health Questionnaire-2 Score 0 06/06/2024 [facility] - Occupational Stress Questionnaire Answer Date [...] any time in the past 12 m [facility], were you homeless or living in a fpc (including now)? No 06/06/2024 Interpersonal Safety Questionnaire [...] Sign Reading Time Taken Comments Blood Pressure 126/82 07/23/2024 1:00 PM CDT Pulse 78 07/23/2024 1:00 PM CDT Temperature 36 ??C (96.8 ??F) 07/23/2024 1:00 PM CDT Respiratory Rate 16 07/23/2024 1:00 PM CDT Oxygen Saturation - - Inhaled Oxygen Concentration - - Weight - - Height - - Body Mass Index - - documented in this encounter Progress Notes * Karley Dickens, RAMÓN - 07/23/2024 10:15 AM CDT HYPERBARIC OXYGEN THERAPY TREATMENT # 8 2.0 Atmospheres Absolute for 90 minutes without air-breaks Chamber: Chamber Number: [id number] Patient presented wearing off loading device to right foot, ordered dressings in place. Vitals: 07/23/24 1300 BP: 126/82 Pulse: 78 Resp: 16 Temp: (!) 36 ??C (96.8 ??F) Glucose Readings Pre Capillary Blood Glucose: 192 Post Capillary Blood Glucose: 184 Blood Glucose Reference Range: 65-95 If patient diabetic, was the Glycemia Interventions Protocol ordered by the physician? : Yes Hyperbaric Monitor Indications: Diabetic Kenney Grade 3 or Higher Treatment Start Time - Compression Begins at 1 ZAID: 1002 Rate Set PSI / Min: 1.5 Pressure Reached: 1014 ZAID: 2.0 Decompression Begins: 1144 Treatment End Time to 1 ZAID: 1156 Total Treatment Time: 114 Symptoms Noted During Treatment: None Hyperbaric Pre-Instpection Hyperbaric Pre-Inspection Consent Obtained: Yes Is there a TCOM ordered for the patient?: Completed Patient voided/noonan secured and emptied: N/A When did the patient last eat?: 0715 Last dose of injectable or oral hypoglycemic agent: 0715 Ostomy pouch emptied and vented (if applicable): N/A All implantable devices assessed, documented, and approved: Yes Intravenous access site secured and placed: N/A Valuables secured: Yes Linens are cotton: Yes Cotton Gown: Yes Glasses Removed: Yes Jewelery Removed: Yes Makeup Removed: Yes Hair Care Products Removed: Yes Wigs or Hair Pieces Removed: Yes Nail divehi cured greater than 10 hours: Yes Personal [...] Associated attestation - Vilma Neves MD - 07/29/2024 8:32 AM CDT HBOT Physician Documentation: Wound Examined? No. Please see weekly wound visit note for detailed wound findings for this corresponding week Patient Cleared for HBO? Yes Continue HBO? Yes TEED Score: Pre-Treatment cerumen impaction Post Treatment cerumen impaction PE Tubes? No Myringotomy Performed? No Breath Sounds: CTAB Other Notes: Recommend continuing with HBOT as wound is progressing well as noted in wound visit note each week Plan for ENT visit following HBO for bilateral TM cerumen impaction evaluation and clearance documented in this encounter Plan of Treatment Upcoming Encounters Date Type Department Care Team (Late st Contact Info) Description 08/24/2024 8:30 AM ADVERTISING EDITOR Office [facility] [address] [place] [address] 08/24/2024 11:30 AM ADVERTISING EDITOR Office Visit [facility] [address], [place] [address] Angel Coombs, DPM [address] [place] [phone] 08/25/2024 8:30 AM ADVERTISING EDITOR Office [facility] [address] [place] [address] 08/26/2024 8:30 AM ADVERTISING EDITOR Office Visit [facility] W[facility] Care [address] [place] [address] 08/27/2024 8:30 AM ADVERTISING EDITOR Office [facility] [address] [place] [address] 08/27/2024 11:00 AM ADVERTISING EDITOR Office [facility] [address] [place] [address] [place] [address] [place] [phone] 08/28/2024 8:30 AM ADVERTISING EDITOR Office [facility] [address] [place] [address] 08/31/2024 8:30 AM ADVERTISING EDITOR Office [facility] [address] [place] [address] 09/01/2024 8:30 AM ADVERTISING EDITOR Office [facility] [address] [place] [address] 09/02/2024 8:30 AM ADVERTISING EDITOR Office [facility] [address] [place] [address] 09/03/2024 8:30 AM ADVERTISING EDITOR Office [facility] [address] [place] [address] 09/03/2024 11:00 AM ADVERTISING EDITOR Office Visit [facility] Wound Care [address] [place] [address] Vilma Neves MD [address] [place] [phone] 09/03/2024 11:00 AM ADVERTISING EDITOR Office Visit [facility] Infectious Disease [address] [place] [phone] Amairani Sigala MD [address] [place] [phone] 09/04/2024 8:30 AM ADVERTISING EDITOR Office Visit [facility] Wound Care [address] [place] [address] 09/07/2024 8:30 AM ADVERTISING EDITOR Office Visit [facility] Wound Care [address] [place] [address] 09/08/2024 8:30 AM ADVERTISING EDITOR Office [facility] [address] [place] [address] 115[address] 09/09/2024 8:30 AM ADVERTISING EDITOR Office [facility] [address] [place] [address] 09/10/2024 8:30 AM ADVERTISING EDITOR Office [facility] [address] [place] [address] 09/10/2024 11:20 AM ADVERTISING EDITOR Office [facility] [address] [place] [address] Vilma Neves MD [address] [place] [phone] 09/11/2024 8:30 AM ADVERTISING EDITOR Office [facility] [address] [place] [address] 09/14/2024 8:30 AM ADVERTISING EDITOR Office Visit [facility] Wound Care [address] [place] [address] 09/15/2024 8:30 AM ADVERTISING EDITOR Office Visit 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
--- OUTSIDE RECORDS SUMMARY | 2024-08-21 10:21 | XMS_ITS | Encounter Summary ---
Author Organization [facility] er Address [address] [place] [address] Care Team Providers Care Behavioral Sciences Instructor Name Role Phone Thu Bhagat PA-C Primary Care Provider [phone] Encounter Details Date Type Department Care Team ([facility] st Contact Info) Description 07/21/2024 Clinical Support [facility] [address] [place] [phone] Mariam Combs, PharmD [address] [place] [phone] Social History Tobacco Use Types Packs/Day Years [...] from your doctor or pharmacy? Never 06/06/2024 [facility] Utilities Answer Date Recorded In the past 12 months has e [employer], gas, oil, or water [employer] threatened to shut off services in your [...] How often do you attend chur or spiritism services? More than 4 times per year 06/06/2024 Do you belong to any clubs o r organizations such as advent groups, unions, fraternal or athletic groups, or [...] Questionnaire-2 Score 0 06/06/2024 [facility] - Occupational Stress [...] any time in the past 12 m [facility], were you homeless or living in a [...] as of this encounter Progress Notes * Mariam Combs, PharmD - 07/21/2024 1:17 PM CDT Images from the original note were not included. OPAT Team Note This patient has been enrolled in outpatient antimicrobial therapy (OPAT) and is being managed by the OPAT team. Patient: Francisco Javier Silva Quiqueyesi OPAT Enrollment Status: OPAT Labs Due: OPAT End Date: 07/21/24 Micro Results: Microbiology Results No results found for the last 168 hours. Lab Results: Results Collected Updated Procedure Result Status 07/14/2024 14007/14/2024 1503 Comprehensive metabolic panel [[id number]] (Abnormal) Blood, Venous Final result Component Value Units Total Protein 7.2 g/dL Albumin, Serum 4.1 g/dL Total Bilirubin 1.6 mg/dL AST 25 U/L Alkaline Phosphatase 61 U/L ALT (SGPT) 20 U/L Sodium 139 mEq/L Potassium 4.3 mEq/L Chloride 105 mEq/L CO2 24 mmol/L BUN 17 mg/dL Creatinine 1.12 mg/dL Glucose 86 mg/dL Calcium, Total,S 9.6 mg/dL Anion Gap 10 Fasting? Unknown 07/14/2024 14007/14/2024 1453 CBC auto differential [[id number]] Blood, Venous Final result Component Value Units WBC 7.0 K/uL RBC 5.44 M/uL Hemoglobin 16.4 g/dL Hematocrit 49.2 % Platelets 225 K/uL MCV 90.4 fL MCH 30.1 pg MCHC 33.3 g/dL RDW 15.0 % NRBC %, Automated 0 % NRBC Absolute, Autmated 0.00 K/uL Neutrophils 72.3 % Absolute Neutrophils 5.1 K/uL Lymphocytes % 16.1 % Absolute Lymphocytes 1.1 K/uL Monocytes % 7.7 % Monocytes Absolute 0.5 K/uL Eosinophils 2.6 % Absolute Eosinophils 0.2 K/uL Basophils 0.9 % Absolute Basophils 0.1 K/uL Immature Leukocytes 0.4 % Immature Leukocytes Absolute 0.03 K/uL 07/10/2024 1202 07/10/2024 1540 Prealbumin [[id number]] Blood, Venous Final result Component Value Units Prealbumin 23.7 mg/dL 07/07/2024 1411 07/07/2024 1537 Comprehensive metabolic panel [[id number]] (Abnormal) Blood, Venous Final result Component Value Units Total Protein 7.2 g/dL Albumin, Serum 3.9 g/dL Total Bilirubin 1.5 mg/dL AST 25 U/L Alkaline Phosphatase 58 U/L ALT (SGPT) 19 U/L Sodium 140 mEq/L Potassium 4.0 mEq/L Chloride 106 mEq/L CO2 24 mmol/L BUN 16 mg/dL Creatinine 1.20 mg/dL Glucose 89 mg/dL Calcium, Total,S 9.5 mg/dL Anion Gap 10 Fasting? No 07/07/2024 1411 07/07/2024 1432 CBC auto differential [[id number]] Blood, Venous Final result Component Value Units WBC 8.6 K/uL RBC 5.36 M/uL Hemoglobin 15.9 g/dL Hematocrit 48.9 % Platelets 232 K/uL MCV 91.2 fL MCH 29.7 pg MCHC 32.5 g/dL RDW 15.1 % NRBC %, Automated 0 % NRBC Absolute, Autmated 0.00 K/uL Neutrophils 72.8 % Absolute Neutrophils 6.3 K/uL Lymphocytes % 15.9 % Absolute Lymphocytes 1.4 K/uL Monocytes % 7.5 % Monocytes Absolute 0.6 K/uL Eosinophils 2.7 % Absolute Eosinophils 0.2 K/uL Basophils 0.6 % Absolute Basophils 0.1 K/uL Immature Leukocytes 0.5 % Immature Leukocytes Absolute 0.04 K/uL 06/30/2024 1356 06/30/2024 1622 Comprehensive metabolic panel [[id number]] (Abnormal) Blood, Venous Final result Component Value Units Total Protein 7.0 g/dL Albumin, Serum 3.6 g/dL Total Bilirubin 1.1 mg/dL AST 30 U/L Alkaline Phosphatase 67 U/L ALT (SGPT) 24 U/L Sodium 138 mEq/L Potassium 4.3 mEq/L Chloride 104 mEq/L CO2 26 mmol/L BUN 13 mg/dL Creatinine 1.17 mg/dL Glucose 108 mg/dL Calcium, Total,S 9.3 mg/dL Anion Gap 8 Fasting? Unknown 06/30/2024 1356 06/30/2024 1409 CBC auto differential [[id number]] (Abnormal) Blood, Venous Final result Component Value Units WBC 6.5 K/uL RBC 5.40 M/uL Hemoglobin 16.0 g/dL Hematocrit 49.2 % Platelets 253 K/uL MCV 91.1 fL MCH 29.6 pg MCHC 32.5 g/dL RDW 14.6 % NRBC %, Automated 0 % NRBC Absolute, Autmated 0.00 K/uL Neutrophils 63.7 % Absolute Neutrophils 4.1 K/uL Lymphocytes % 20.5 % Absolute Lymphocytes 1.3 K/uL Monocytes % 9.3 % Monocytes Absolute 0.6 K/uL Eosinophils 4.9 % Absolute Eosinophils 0.3 K/uL Basophils 0.8 % Absolute Basophils 0.1 K/uL Immature Leukocytes 0.8 % Immature Leukocytes Absolute 0.05 K/uL 06/23/2024 1253 06/23/2024 1332 Comprehensive metabolic panel [[id number]] (Abnormal) Blood, Venous Final result Component Value Units Total Protein 7.0 g/dL Albumin, Serum 3.5 g/dL Total Bilirubin 0.7 mg/dL AST 25 U/L Alkaline Phosphatase 66 U/L ALT (SGPT) 24 U/L Sodium 137 mEq/L Potassium 4.5 mEq/L Chloride 103 mEq/L CO2 27 mmol/L BUN 16 mg/dL Creatinine 1.16 mg/dL Glucose 146 mg/dL Calcium, Total,S 9.1 mg/dL Anion Gap 7 Fasting? Unknown 06/23/2024 1253 06/23/2024 1302 CBC auto differential [[id number]] (Abnormal) Blood, Venous Final result Component Value Units WBC 8.0 K/uL RBC 5.41 M/uL Hemoglobin 16.0 g/dL Hematocrit 49.4 % Platelets 324 K/uL MCV 91.3 fL MCH 29.6 pg MCHC 32.4 g/dL RDW 14.5 % NRBC %, Automated 0 % NRBC Absolute, Autmated 0.00 K/uL Neutrophils 72.8 % Absolute Neutrophils 5.8 K/uL Lymphocytes % 16.5 % Absolute Lymphocytes 1.3 K/uL Monocytes % 7.4 % Monocytes Absolute 0.6 K/uL Eosinophils 1.7 % Absolute Eosinophils 0.1 K/uL Basophils 1.0 % Absolute Basophils 0.1 K/uL Immature Leukocytes 0.6 % Immature Leukocytes Absolute 0.05 K/uL 06/17/2024 0550 06/17/2024 0635 Basic metabolic panel [[id number]] (Abnormal) Blood, Venous Final result Component Value Units Sodium 136 mEq/L Potassium 4.1 mEq/L Chloride 101 mEq/L CO2 32 mmol/L Creatinine 1.14 mg/dL BUN 22 mg/dL Glucose 135 mg/dL Calcium, Total,S 8.9 mg/dL Anion Gap 3 Fasting? Yes 06/17/2024 0550 06/17/2024 0618 CBC ([employer]) [[id number]] (Abnormal) Blood, Venous Final result Component Value Units WBC 10.5 K/uL RBC 5.18 M/uL Hemoglobin 15.2 g/dL Hematocrit 47.8 % Platelets 376 K/uL MCV 92.3 fL MCH 29.3 pg MCHC 31.8 g/dL RDW 14.6 % NRBC %, Automated 0 % NRBC Absolute, Autmated 0.00 K/uL 06/16/2024 0608 06/16/2024 0826 Basic metabolic panel [[id number]] (Abnormal) Blood, Venous Final result Component Value Units Sodium 136 mEq/L Potassium 4.3 mEq/L Chloride 100 mEq/L CO2 30 mmol/L Creatinine 1.13 mg/dL BUN 20 mg/dL Glucose 116 mg/dL Calcium, Total,S 9.1 mg/dL Anion Gap 6 Fasting? Unknown 06/16/2024 0608 06/16/2024 0652 CBC ([employer]) [[id number]] Blood, Venous Final result Component Value Units WBC 10.2 K/uL RBC 5.36 M/uL Hemoglobin 15.9 g/dL Hematocrit 48.9 % Platelets 369 K/uL MCV 91.2 fL MCH 29.7 pg MCHC 32.5 g/dL RDW 14.7 % NRBC %, Automated 0 % NRBC Absolute, Autmated 0.00 K/uL 06/15/2024 0600 06/15/2024 0617 Basic metabolic panel [[id number]] (Abnormal) Blood, Venous Final result Component Value Units Sodium 136 mEq/L Potassium 4.0 mEq/L Chloride 100 mEq/L CO2 30 mmol/L Creatinine 1.05 mg/dL BUN 17 mg/dL Glucose 117 mg/dL Calcium, Total,S 8.8 mg/dL Anion Gap 6 Fasting? Yes 06/15/2024 0600 06/15/2024 0606 CBC ([employer]) [[id number]] (Abnormal) Blood, Venous Final result Component Value Units WBC 11.5 K/uL RBC 5.04 M/uL Hemoglobin 14.9 g/dL Hematocrit 46.2 % Platelets 358 K/uL MCV 91.7 fL MCH 29.6 pg MCHC 32.3 g/dL RDW 14.9 % NRBC %, Automated 0 % NRBC Absolute, Autmated 0.00 K/uL 06/14/2024 0545 06/14/2024 0628 Basic metabolic panel [[id number]] (Abnormal) Blood, Venous Final result Component Value Units Sodium 138 mEq/L Potassium 4.2 mEq/L Chloride 101 mEq/L CO2 31 mmol/L Creatinine 1.03 mg/dL BUN 20 mg/dL Glucose 142 mg/dL Calcium, Total,S 8.9 mg/dL Anion Gap 6 Fasting? Yes 06/14/2024 0545 06/14/2024 0621 CBC ([employer]) [[id number]] (Abnormal) Blood, Venous Final result Component Value Units WBC 12.1 K/uL RBC 5.04 M/uL Hemoglobin 15.1 g/dL Hematocrit 47.3 % Platelets 396 K/uL MCV 93.8 fL MCH 30.0 pg MCHC 31.9 g/dL RDW 15.2 % NRBC %, Automated 0 % NRBC Absolute, Autmated 0.00 K/uL 06/13/2024 0500 06/13/2024 0548 Basic metabolic panel [[id number]] (Abnormal) Blood, Venous Final result Component Value Units Sodium 135 mEq/L Potassium 4.0 mEq/L Chloride 102 mEq/L CO2 29 mmol/L Creatinine 1.21 mg/dL BUN 26 mg/dL Glucose 188 mg/dL Calcium, Total,S 8.7 mg/dL Anion Gap 4 Fasting? Yes 06/13/2024 0500 06/13/2024 0533 CBC ([employer]) [[id number]] (Abnormal) Blood, Venous Final result Component Value Units WBC 16.2 K/uL RBC 5.00 M/uL Hemoglobin 14.8 g/dL Hematocrit 46.7 % Platelets 382 K/uL MCV 93.4 fL MCH 29.6 pg MCHC 31.7 g/dL RDW 15.2 % NRBC %, Automated 0 % NRBC Absolute, Autmated 0.00 K/uL 06/12/2024 0540 06/12/2024 0615 Basic metabolic panel [[id number]] (Abnormal) Blood, Venous Final result Component Value Units Sodium 137 mEq/L Potassium 4.2 mEq/L Chloride 103 mEq/L CO2 29 mmol/L Creatinine 1.13 mg/dL BUN 25 mg/dL Glucose 172 mg/dL Calcium, Total,S 9.2 mg/dL Anion Gap 5 Fasting? Yes 06/12/2024 0540 06/12/2024 0559 CBC ([employer]) [[id number]] (Abnormal) Blood, Venous Final result Component Value Units WBC 14.4 K/uL RBC 5.22 M/uL Hemoglobin 15.5 g/dL Hematocrit 48.2 % Platelets 396 K/uL MCV 92.3 fL MCH 29.7 pg MCHC 32.2 g/dL RDW 15.1 % NRBC %, Automated 0 % NRBC Absolute, Autmated 0.00 K/uL 06/11/2024 0610 06/11/2024 0710 Basic metabolic panel [[id number]] (Abnormal) Blood, Venous Final result Component Value Units Sodium 138 mEq/L Potassium 4.2 mEq/L Chloride 104 mEq/L CO2 25 mmol/L Creatinine 1.20 mg/dL BUN 24 mg/dL Glucose 173 mg/dL Calcium, Total,S 9.5 mg/dL Anion Gap 9 Fasting? Yes 06/11/2024 0610 06/11/2024 0653 CBC ([employer]) [[id number]] (Abnormal) Blood, Venous Final result Component Value Units WBC 14.5 K/uL RBC 5.09 M/uL Hemoglobin 15.3 g/dL Hematocrit 46.8 % Platelets 389 K/uL MCV 91.9 fL MCH 30.1 pg MCHC 32.7 g/dL RDW 15.3 % NRBC %, Automated 0 % NRBC Absolute, Autmated 0.00 K/uL 06/10/2024 0554 06/10/2024 0613 Basic metabolic panel [[id number]] (Abnormal) Blood, Venous Final result Component Value Units Sodium 138 mEq/L Potassium 4.2 mEq/L Chloride 107 mEq/L CO2 24 mmol/L Creatinine 1.23 mg/dL BUN 24 mg/dL Glucose 139 mg/dL Calcium, Total,S 9.3 mg/dL Anion Gap 7 Fasting? Yes 06/10/2024 0554 06/10/2024 0607 CBC ([employer]) [[id number]] (Abnormal) Blood, Venous Final result Component Value Units WBC 15.2 K/uL RBC 5.00 M/uL Hemoglobin 15.2 g/dL Hematocrit 47.1 % Platelets 347 K/uL MCV 94.2 fL MCH 30.4 pg MCHC 32.3 g/dL RDW 15.6 % NRBC %, Automated 0 % NRBC Absolute, Autmated 0.00 K/uL Current Indication: Skin-Soft tissue infection. Diabetic Foot Ulcer Overall Recommendation: The patient is currently taking Ertapenem . Treatment is complete. Line pulled on 07/21 Pharmacy took the following actions: Communicated with home infusion company that therapy is complete Additional Recommendations: Therapy Complete per Infectious Disease Submitted by: Mariam Combs, PharmD documented in this encounter Plan of Treatment Upcoming Encounters Date Type Department Care Team (Late st Contact Info) Description 08/24/2024 8:30 AM TELEPHONE CLERK Office Visit [facility] Wound Care [address] [place] [address] 08/24/2024 11:30 AM TELEPHONE CLERK Office Visit Podiatry [address] [place] [address] Angel Coombs DPM [address] [place] [address] [phone] 08/25/2024 8:30 AM TELEPHONE CLERK Office Visit [facility] W[facility] Care [address] [place] [address] 15115 08/26/2024 8:30 AM TELEPHONE CLERK Office Visit [facility] W[facility] Care [address] [place] [address] 90837 08/27/2024 8:30 AM TELEPHONE CLERK Office Visit [facility] Wound Care [address] [place] [address] [phone] 08/27/2024 11:00 AM TELEPHONE CLERK Office Visit [facility] Wound Care [address] [place] [address] [phone] Vilma Neves MD [address] [place] [phone] 08/28/2024 8:30 AM TELEPHONE CLERK Office Visit [facility] Wound Care [address] [place] [address] 42829 08/31/2024 8:30 AM TELEPHONE CLERK Office Visit [facility] Wound Care [address] [place] [address] 64145 09/01/2024 8:30 AM TELEPHONE CLERK Office Visit [facility] W[facility] [address] [place] [address] 87119 09/02/2024 8:30 AM TELEPHONE CLERK Office Visit [facility] W[facility] [address] [place] [address] 17306 09/03/2024 8:30 AM TELEPHONE CLERK Office Visit [facility] W[facility] Care [address] [place] [address] [phone] 09/03/2024 11:00 AM TELEPHONE CLERK Office Visit [facility] W[facility] [address] [place] [address] 85128 Vilma Neves MD [address] [place] [phone] 09/03/2024 11:00 AM TELEPHONE CLERK Office Visit [facility] Infectious Disease [address] [place] [address] 54868 Amairani Sigala MD [address] [place] [phone] 09/04/2024 8:30 AM TELEPHONE CLERK Office Visit [facility] W[facility] Care [address] [place] [address] [phone] 09/07/2024 8:30 AM TELEPHONE CLERK Office Visit [facility] W[facility] Care [address] [place] [address] 58050 09/08/2024 8:30 AM TELEPHONE CLERK Office Visit [facility] W[facility] Care [address] [place] [address] 38103 09/09/2024 8:30 AM TELEPHONE CLERK Office Visit [facility] W[facility] Care [address] [place] [address] [phone] 09/10/2024 8:30 AM TELEPHONE CLERK Office Visit [facility] W[facility] [address] [place] [address] 40829 09/10/2024 11:20 AM TELEPHONE CLERK Office Visit [facility] Care [address] [place] [phone] [place] [address] [place] [address] [phone] 09/11/2024 8:30 AM TELEPHONE CLERK Office Visit [facility] Wound Care [address] [place] [address] 44476 09/14/2024 8:30 AM TELEPHONE CLERK Office Visit [facility] Wound Care [address] [place] [address] [phone] 09/15/2024 8:30 AM TELEPHONE CLERK Office Visit [facility] Wound Care [address] [place] [address] [phone] documented as of this encounter Visit Diagnoses Not on filedocumented in this encounter Care Teams Behavioral Sciences Instructor Relationship Specialty Start Date End Date Thu Bhagat PA-C [address] [place] [phone] PCP - General 11/26/22 documented as of this encounter
--- OUTSIDE RECORDS SUMMARY | 2024-08-21 10:21 | XMS_ITS | Encounter Summary ---
Author Organization [facility] er Address [address] [place] [id number] Care Team Providers Care Sales And Marketing Manager Name Role Phone Thu Bhagat PA-C Primary Care Provider Reason for Visit * Reason Comments HBO * Consultation (Routine) - Authorized Specialty Diagnoses / Procedures Referred By Contac t Referred To Contact Wound Care Diagnoses Type 2 diabetes mellitus with foot ulcer Procedures Wound Care HBOT Thu Bhagat PA-C [address] [place] [phone] [facility] Wound Care [address] [place] [address] Referral ID Status Reason Start Date Expiration Date V isits Requested Visits Authorized [id number] Authorized 07/02/2024 10/11/2024 99 99 Encounter Details Date Type Department Care Team (Late st Contact Info) Description 07/27/2024 8:30 AM CDT Office Visit [facility] [address] [place] [address] [place] [address] [place] [phone] Diabetic ulcer of right midfoot associated [...] your doctor or pharmacy? Never 06/06/2024 [facility] Utilities Answer Date Recorded In the past 12 months has [employer], [employer], oil, or water [employer] threatened to shut off services in your [...] How often do you attend [facility] or scientology services? More than 4 times per year [...] Recorded Patient Health Questionnaire-2 Score 0 06/06/2024 [facility] of Occupat ional [facility] - Occupational Stress Questionnaire Answer Date Recorded [...] any time in the past 12 m [facility], were you homeless or living in a chcf (including now)? No 06/06/2024 Interpersonal Safety Questionnaire [...] Sign Reading Time Taken Comments Blood Pressure 128/87 07/27/2024 10:48 AM CDT Pulse 78 07/27/2024 10:48 AM CDT Temperature 36.2 ??C (97.1 ??F) 07/27/2024 10:48 AM C DT Respiratory Rate - - Oxygen Saturation 99% 07/27/2024 10:48 AM CDT Inhaled Oxygen Concentration - - Weight - - Height - - Body Mass Index - - documented in this encounter Progress Notes * Riya Stewart RN - 07/27/2024 8:30 AM CDT HYPERBARIC OXYGEN THERAPY TREATMENT # 10 2.0 Atmospheres Absolute for 90 minutes without air-breaks Chamber: Chamber Number: [id number] Patient presented wearing off loading device to right foot, ordered dressings in place. Vitals: 07/27/24 1048 BP: 128/87 Pulse: 78 Temp: 36.2 ??C (97.1 ??F) SpO2: 99% Glucose Readings Pre Capillary Blood Glucose: 233 Post Capillary Blood Glucose: 160 Blood Glucose Reference Range: 65-95 If patient diabetic, was the Glycemia Interventions Protocol ordered by the physician? : Yes Hyperbaric Monitor Indications: Diabetic Kenney Grade 3 or Higher Treatment Start Time - Compression Begins at 1 ZAID: 0853 Rate Set PSI / Min: 1 Pressure Reached: 0904 ZAID: 2.0 Decompression Begins: 1034 Treatment End Time to 1 ZAID: 1044 Total Treatment Time: 111 Symptoms Noted During [...] Wigs or Hair Pieces Removed: Yes Nail chilean cured greater than 10 hours: Yes Personal [...] attestation - Vilma Neves MD - 07/29/2024 8:31 AM CDT HBOT Physician Documentation: Wound Examined? [...] st Contact Info) Description 08/24/2024 8:30 AM OUTPATIENT THERAPIST Office Visit [facility] W[facility] Care [address] [place] [address] 08/24/2024 11:30 AM OUTPATIENT THERAPIST [facility] [address] [place] [address] Angel Coombs, DPM [address] [place] [phone] 08/25/2024 8:30 AM OUTPATIENT THERAPIST Office Visit [facility] [address] [place] [address] 08/26/2024 8:30 AM OUTPATIENT THERAPIST Office Visit [facility] [address] [place] [address] 08/27/2024 8:30 AM OUTPATIENT THERAPIST Office Visit [facility] Care [address] [place] [address] 08/27/2024 11:00 AM OUTPATIENT THERAPIST Office Visit [facility] [address] [place] [address] [place] [address] [place] [phone] 08/28/2024 8:30 AM OUTPATIENT THERAPIST Office Visit [facility] Care [address] [place] [address] 08/31/2024 8:30 AM OUTPATIENT THERAPIST Office Visit [facility] Care [address] [place] [address] 09/01/2024 8:30 AM OUTPATIENT THERAPIST Office Visit [facility] W[facility] Care [address] [place] [address] 09/02/2024 8:30 AM OUTPATIENT THERAPIST Office Visit [facility] Care [address] [place] [address] 09/03/2024 8:30 AM OUTPATIENT THERAPIST Office Visit [facility] [address] [place] [phone] 09/03/2024 11:00 AM OUTPATIENT THERAPIST Office Visit [facility] Wound Care [address] [place] [address] Vilma Neves MD [address] [place] [phone] 09/03/2024 11:00 AM OUTPATIENT THERAPIST Office Visit [facility] Infectious Disease [address] [place] [address] Amairani Sigala MD [address] [place] [phone] 09/04/2024 8:30 AM OUTPATIENT THERAPIST Office Visit [facility] Wound Care [address] [place] [address] 09/07/2024 8:30 AM OUTPATIENT THERAPIST Office Visit [facility] W[facility] Care [address] [place] [address] 09/08/2024 8:30 AM OUTPATIENT THERAPIST Office Visit [facility] Care [address] [place] [address] 09/09/2024 8:30 AM OUTPATIENT THERAPIST Office Visit [facility] Wound Care [address] [place] [address] 09/10/2024 8:30 AM OUTPATIENT THERAPIST Office Visit [facility] Care [address] [place] [address] 09/10/2024 11:20 AM OUTPATIENT THERAPIST Office Visit [facility] W[facility] Care [address] [place] [address] Vilma Neves MD [address] [place] [phone] 09/11/2024 8:30 AM OUTPATIENT THERAPIST Office Visit [facility] W[facility] Care [address] [place] [address] 09/14/2024 8:30 AM OUTPATIENT THERAPIST Office Visit [facility]ound Care [address] [place] [address] 09/15/2024 8:30 AM OUTPATIENT THERAPIST Office Visit [facility] Wound Care [address] [place] [address] documented as of this encounter Procedures Procedure Name Priority Date/Time Associated Diagnosis Comments POCT PRECISION GLUCOSE Routine 07/27/2024 10:50 AM CDT POCT PRECISION GLUCOSE Routine 07/27/2024 8:31 AM CDT documented in this encounter Results * (ABNORMAL) POCT Precision glucose (07/27/2024 10:50 AM CDT) Glucose Blood, POC 160(H) 70 - 100 mg/dL 07/27/2024 10:51 AM CDT [facility] Comment: Meter ID: [id number] Capillary whole blood specimens should not be used in patients receiving intensive medical intervention/therapy because of the potential for pre-analytical collection error and specifically in patients with decreased peripheral blood flow, as it may not truly reflect the patient? s true physiological state. Examples include, but are not limited to, severe hypotension, shock, hyperosmolar-hyperglycemia (with or without ketosis), and severe dehydration. 07/27/2024 10:5 0 AM CDT 07/27/2024 10:51 AM CDT Thu Bhagat PA-C LAB POINT OF CARE TE ST DOCKED DEVICE UNSOLICITED RESULTS [facility] [address] [place] [phone] * (ABNORMAL) POCT Precision glucose (07/27/2024 8:31 AM CDT) Glucose Blood, POC 233(H) 70 - 100 mg/dL 07/27/2024 8:32 AM CDT [facility] Comment: Meter ID: [id number] Capillary whole blood specimens should not be used in patients receiving intensive medical intervention/therapy because of the potential for pre-analytical collection error and specifically in patients with decreased peripheral blood flow, as it may not truly reflect the patient? s true physiological state. Examples include, but are not limited to, severe hypotension, shock, hyperosmolar-hyperglycemia (with or without ketosis), and severe dehydration. 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
--- OUTSIDE RECORDS SUMMARY | 2024-08-21 10:21 | XMS_ITS | Encounter Summary ---
Author Organization [facility] er Address [address] [place] [address] Care Team Providers Care Physiological Chemist Name Role Phone Thu Bhagat PA-C Primary Care Provider Reason for Visit * Reason Comments Cerumen Impaction Patient is here for an ear cleaning to see if it helps with his hyperbaric treatments. He reports sometimes it's hard to pop (ears). * Consultation (Urgent) - Authorized Specialty Diagnoses / Procedures Referred By Kaley laguna Referred To Contact Otolaryngology Diagnoses Bilateral impacted cerumen Vilma Neves MD [address] [place] [phone] [facility] [address] [place] [address] Referral ID Status Reason Start Date Expiration Date Visits Requested Visits Authorized [id number] Authorized Specialty Services Required 07/17/2024 07/17/2025 1 1 Encounter Details Date Type Department Care Team (Late st Contact Info) Description 07/23/2024 9:00 AM CDT Office Visit [facility] [address] [place] [address] Gerardo Oconnell MD [address] [place] [phone] Bilateral impacted cerumen (Primary Dx); Dysfunction of both eustachian tubes Social History Tobacco Use Types Packs/Day Years [...] from your doctor or pharmacy? Never 06/06/2024 [facility] Utilities Answer Date Recorded In the past 12 months has e [employer], [employer], oil, or water [employer] threatened to shut off services in your [...] How often do you attend chur or sikhism services? More than 4 times per year 06/06/2024 Do you belong to any clubs o r organizations such as orthodox groups, unions, fraternal or athletic groups, [...] Recorded Patient Health Questionnaire-2 Score 0 06/06/2024 [facility] of Occupat ional Health - Occupational Stress [...] time in the past 12 m [facility], were you homeless or living in a [...] Sign Reading Time Taken Comments Blood Pressure 103/72 07/23/2024 8:26 AM CDT Pulse 72 07/23/2024 8:26 AM CDT Temperature 36.6 ??C (97.8 ??F) 07/23/2024 8:26 AM CD T Respiratory Rate 12 07/23/2024 8:26 AM CDT Oxygen Saturation - - Inhaled Oxygen Concentration - - Weight 86.6 kg (190 lb 14.4 oz) 07/23/2024 8:26 AM CDT Height 185.4 cm (6' 1) 07/23/2024 8:26 AM CDT Body Mass Index 25.19 07/23/2024 8:26 AM CDT documented in this encounter Progress Notes * Gerardo Oconnell MD - 07/23/2024 9:00 AM CDT Subjective Patient ID: Francisco Javier Fung is a 69 y.o. male. Chief Complaint Patient presents with Cerumen Impaction Patient is here for an ear cleaning to see if it helps with his hyperbaric treatments. He reports sometimes it's hard to pop (ears). HPI Patient presents in consultation at the request of Dr. Neves for cerumen disimpaction. He is undergoing hyperbaric oxygen therapy for his right foot but his ears cannot be examined due to cerumen impactions. He has significant history of diabetes mellitus. He denies any prior ear surgery or difficulty with eustachian tube dysfunction. Objective Physical Exam Vitals: 07/23/24 0826 BP: 103/72 Pulse: 72 Resp: 12 Temp: 36.6 ??C (97.8 ??F) Examination of both ears demonstrate that they are obstructed by cerumen. Once this was removed, both tympanic membranes were retracted. There was some evidence of partial middle ear effusion but this cleared easily with auto insufflation. Facial nerves intact in upper and lower divisions. Ear canal skin is healthy with no excoriations or fungal debris. Procedure: Cerumen Disimpaction, bilateral Indication: Cerumen impaction Technique: The patient was reclined in the exam chair, and the left ear was examined under the operating microscope. Cerumen was carefully removed using a combination of currettes and forceps until adequate view of the tympanic membrane was obtained. Attention was then turned to the contralateral ear, and the same procedure was performed. Data Reviewed: None Assessment/Plan 1. Bilateral impacted cerumen Bilateral cerumen impactions were removed today from the bony ear canal. This allowed clear visualization of the tympanic membrane. 2. Dysfunction of both eustachian tubes He does appear to have had some recent eustachian tube dysfunction. However, he is able to auto insufflate's ears on command without difficulty. Therefore, I think he is okay to proceed with hyperbaric oxygen therapy without placement of a myringotomy tube at this time. I recommended he auto insufflate prior to therapy as well as anytime he feels his ears are becoming full or painful. documented in this encounter Plan of Treatment Upcoming Encounters Date Type Department Care Team (Late st Contact Info) Description 08/24/2024 8:30 AM TRANSPORT COORDINATOR Office Visit [facility] Wound Care [address] [place] [address] 08/24/2024 11:30 AM TRANSPORT COORDINATOR [facility] [address] [place] [address] Angel Coombs, DPM [address] [place] [phone] 08/25/2024 8:30 AM TRANSPORT COORDINATOR Office Visit [facility] Wound Care [address] [place] [address] 08/26/2024 8:30 AM TRANSPORT COORDINATOR Office Visit [facility] Wound Care [address] [place] [address] 08/27/2024 8:30 AM TRANSPORT COORDINATOR Office Visit [facility] Wound Care [address] [place] [address] 08/27/2024 11:00 AM TRANSPORT COORDINATOR Office Visit [facility] Wound Care [address] [place] [address] Vilma Neves MD [address] [place] [phone] 08/28/2024 8:30 AM TRANSPORT COORDINATOR Office Visit [facility] Hospital Wound Care [address] [place] [address] 08/31/2024 8:30 AM TRANSPORT COORDINATOR Office Visit [facility] Wound Care [address] [place] [address] 247[address] 09/01/2024 8:30 AM TRANSPORT COORDINATOR Office Visit [facility] Wound Care [address] [place] [address] 09/02/2024 8:30 AM TRANSPORT COORDINATOR Office Visit [facility] Wound Care [address] [place] [address] 09/03/2024 8:30 AM TRANSPORT COORDINATOR Office Visit [facility] Wound Care [address] [place] [address] 09/03/2024 11:00 AM TRANSPORT COORDINATOR Office Visit [facility] Wound Care [address] [place] [address] Vilma Neves MD [address] [place] [phone] 09/03/2024 11:00 AM TRANSPORT COORDINATOR Office Visit [facility] Infectious Disease [address] [place] [address] Amairani Sigala MD [address] [place] [phone] 09/04/2024 8:30 AM TRANSPORT COORDINATOR Office Visit [facility] Wound Care [address] [place] [phone] 09/07/2024 8:30 AM TRANSPORT COORDINATOR Office Visit [facility] Wound Care [address] [place] [address]2548 09/08/2024 8:30 AM TRANSPORT COORDINATOR Office Visit [facility] Wound Care [address] [place] [address]4567 09/09/2024 8:30 AM TRANSPORT COORDINATOR Office Visit [facility] Wound Care [address] [place] [address] 23211 09/10/2024 8:30 AM TRANSPORT COORDINATOR Office Visit [facility] Wound Care [address] [place] [address] [phone] 09/10/2024 11:20 AM TRANSPORT COORDINATOR Office Visit [facility] Wound Care [address] [place] [address] Vilma Neves MD [address] [place] [phone] 09/11/2024 8:30 AM TRANSPORT COORDINATOR Office Visit [facility] Wound Care [address] [place] [address] 19090 09/14/2024 8:30 AM TRANSPORT COORDINATOR Office Visit [facility] Wound Care [address] [place] [phone] 09/15/2024 8:30 AM TRANSPORT COORDINATOR Office Visit [facility] Wound Care [address] [place] [address] Scheduled Referrals Name Type Priority Associated Diagnoses Order Schedule Ambulatory referral to ENT Outpatient Referral Routine Bilateral impacted cerumen Ordered: 07/17/2024 documented as of this encounter Visit Diagnoses Diagnosis Bilateral impacted cerumen- Primary Impacted cerumen Dysfunction of both eustachian tubes documented in this encounter Care Teams Physiological Chemist Relationship Specialty Start Date End Date Thu Bhagat PA-C [address] [place] [phone] PCP - General 11/26/22 documented as of this encounter
--- OUTSIDE RECORDS SUMMARY | 2024-08-21 10:21 | XMS_ITS | Encounter Summary ---
Author Organization [facility] er Address [address] [place] [address] Care Team Providers Care Finance Controller Name Role Phone Thu Bhagat PA-C Primary Care Provider Reason for Visit * Reason Comments HBO * Consultation (Routine) - Authorized Specialty Diagnoses / Procedures Referred By Contac t Referred To Contact Wound Care Diagnoses Type 2 diabetes mellitus with foot ulcer Procedures Wound Care HBOT Thu Bhagat PA-C [address] [place] [phone] [facility] Care [address] [place] [address] Referral ID Status Reason Start Date Expiration Date V isits Requested Visits Authorized [id number] Authorized 07/02/2024 10/11/2024 99 99 Encounter Details Date Type Department Care Team (Late st Contact Info) Description 07/31/2024 8:30 AM CDT Office Visit [facility] [address] [place] [phone] [place] [address] [place] [phone] Diabetic ulcer of right midfoot associated [...] from your doctor or pharmacy? Never 06/06/2024 [facility] Utilities Answer Date Recorded In the past 12 months has e [employer], gas, oil, or water company threatened to [...] you attend formerly [facility] or yarsanism services? More than 4 times per year 06/06/2024 Do you belong to any clubs o r organizations such as tenriism groups, unions, fraternal or athletic groups, or [...] Questionnaire-2 Score 0 06/06/2024 [facility] - Occupational Stress Questionnaire Answer Date Recorded [...] any time in the past 12 m [facility], were you homeless or living in a usp (including now)? No 06/06/2024 Interpersonal Safety Questionnaire Answer Date Recorded How often does anyone, inclu ding family and friends, physically hurt you? Never 06/06/2024 How often does anyone, tyrell kerns family and friends, insult or talk down to you? Never 06/06/2024 How often does anyone, tyrell krens family and friends, threaten you with harm? [...] Sign Reading Time Taken Comments Blood Pressure 139/98 07/31/2024 10:00 AM CDT Pulse 88 07/31/2024 10:00 AM CDT Temperature 36.1 ??C (96.9 ??F) 07/31/2024 10:00 AM C DT Respiratory Rate 16 07/31/2024 10:00 AM CDT Oxygen Saturation - - Inhaled Oxygen Concentration - - Weight - - Height - - Body Mass Index - - documented in this encounter Progress Notes * Karley Dickens, RAMÓN - 07/31/2024 8:30 AM CDT HYPERBARIC OXYGEN THERAPY TREATMENT # 14 2.0 Atmospheres Absolute for 90 minutes without air-breaks Chamber: Chamber Number: [id number] Patient presented wearing off loading device to right foot , ordered dressings in place. Vitals: 07/31/24 1000 BP: (!) 139/98 Pulse: 88 Resp: 16 Temp: (!) 36.1 ??C (96.9 ??F) Glucose Readings Pre Capillary Blood Glucose: 154 Post Capillary Blood Glucose: 184 Blood Glucose Reference Range: 65-95 If patient diabetic, was the Glycemia Interventions Protocol ordered by the physician? : Yes (Boost) Hyperbaric Monitor Indications: Diabetic Kenney Grade 3 or Higher Treatment Start Time - Compression Begins at 1 ZAID: 0849 Rate Set PSI / Min: 2 Pressure Reached: 0857 ZAID: 2.0 Decompression Begins: 1028 Treatment End Time to 1 ZAID: 1036 Total Treatment Time: 107 Symptoms Noted During [...] Wigs or Hair Pieces Removed: Yes Nail maori cured greater than 10 hours: Yes Personal [...] Associated attestation - Vilma Neves MD - 07/31/2024 11:04 AM CDT HBOT Physician Documentation: Wound Examined? [...] st Contact Info) Description 08/24/2024 8:30 AM FRUIT PEELER Office Visit [facility] W[facility] [address] [place] [phone] 08/24/2024 11:30 AM FRUIT PEELER [facility] Visit [facility] [address] [place] [address] Angel Coombs, DPM [address] [place] [phone] 08/25/2024 8:30 AM FRUIT PEELER Office Visit [facility] [address] [place] [address] 08/26/2024 8:30 AM FRUIT PEELER Office Visit [facility] [address] [place] [address] 08/27/2024 8:30 AM FRUIT PEELER Office Visit [facility] [address] [place] [address] 08/27/2024 11:00 AM FRUIT PEELER Office Visit [facility] [address] [place] [phone] [place] [address] [place] [phone] 08/28/2024 8:30 AM FRUIT PEELER Office Visit [facility] [address] [place] [address] 08/31/2024 8:30 AM FRUIT PEELER Office Visit [facility] [address] [place] [address] 09/01/2024 8:30 AM FRUIT PEELER Office Visit [facility] W[facility] [address] [place] [phone] 09/02/2024 8:30 AM FRUIT PEELER Office Visit [facility] [address] [place] [phone] 09/03/2024 8:30 AM FRUIT PEELER Office Visit [facility] [address] [place] [phone] 09/03/2024 11:00 AM FRUIT PEELER Office Visit [facility] W[facility] Care [address] [place] [address] Vilma Neves MD [address] [place] [phone] 09/03/2024 11:00 AM FRUIT PEELER Office Visit [facility] Infectious Disease [address] [place] [phone] Amairani Sigala MD [address] [place] [phone] 09/04/2024 8:30 AM FRUIT PEELER Office Visit [facility] Wound Care [address] [place] [address] 09/07/2024 8:30 AM FRUIT PEELER Office Visit [facility] [address] [place] [phone] 09/08/2024 8:30 AM FRUIT PEELER Office Visit [facility] [address] [place] [phone] 09/09/2024 8:30 AM FRUIT PEELER Office Visit [facility] [address] [place] [address] 09/10/2024 8:30 AM FRUIT PEELER Office Visit [facility] [address] [place] [phone] 09/10/2024 11:20 AM FRUIT PEELER Office Visit [facility] W[facility] [address] [place] [address] Vilma Neves MD [address] [place] [phone] 09/11/2024 8:30 AM FRUIT PEELER Office Visit [facility] [address] [place] [address] 09/14/2024 8:30 AM FRUIT PEELER Office Visit [facility] Wound Care [address] [place] [address] 09/15/2024 8:30 AM FRUIT PEELER Office Visit [facility] Wound Care [address] [place] [phone] documented as of this encounter Procedures Procedure Name Priority Date/Time Associated Diagnosis Comments POCT PRECISION GLUCOSE Routine 07/31/2024 10:40 AM CDT POCT PRECISION GLUCOSE Routine 07/31/2024 8:31 AM CDT documented in this encounter Results * (ABNORMAL) POCT Precision glucose (07/31/2024 10:40 AM CDT) Glucose Blood, POC 184(H) 70 - 100 mg/dL 07/31/2024 10:41 AM CDT [facility] Comment: Meter ID: [id number] Capillary whole blood specimens should not be used in patients receiving intensive medical intervention/therapy because of the potential for pre-analytical collection error and specifically in patients with decreased peripheral blood flow, as it may not truly reflect the patient? s true physiological state. Examples include, but are not limited to, severe hypotension, shock, hyperosmolar-hyperglycemia (with or without ketosis), and severe dehydration. 07/31/2024 10:4 0 AM CDT 07/31/2024 10:41 AM CDT Vilma Neves MD LAB POINT OF CARE TE ST DOCKED DEVICE UNSOLICITED RESULTS [facility] [address] [place] [address] * (ABNORMAL) POCT Precision glucose (07/31/2024 8:31 AM CDT) Glucose Blood, POC 154(H) 70 - 100 mg/dL 08/02/2024 12:30 AM CDT [facility] Comment: Meter ID: [id number] Capillary whole blood specimens should not be used in patients receiving intensive medical intervention/therapy because of the potential for pre-analytical collection error and specifically in patients with decreased peripheral blood flow, as it may not truly reflect the patient? s true physiological state. Examples include, but are not limited to, severe hypotension, shock, hyperosmolar-hyperglycemia (with or without ketosis), and severe dehydration. 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
--- OUTSIDE RECORDS SUMMARY | 2024-08-21 10:21 | XMS_ITS | Encounter Summary ---
Author Organization [facility] er Address [address] [place] [address] Care Team Providers Care Polymerization Oven Operator Name Role Phone Thu Bhagat PA-C Primary Care Provider Reason for Visit * Reason Comments HBO * Consultation (Routine) - Authorized Specialty Diagnoses / Procedures Referred By Contac t Referred To Contact Wound Care Diagnoses Type 2 diabetes mellitus with foot ulcer Procedures Wound Care HBOT Thu Bhagat PA-C [address] [place] [phone] [facility] Wound Care [address] [place] [address] Referral ID Status Reason Start Date Expiration Date V isits Requested Visits Authorized [id number] Authorized 07/02/2024 10/11/2024 99 99 Encounter Details Date Type Department Care Team (Late st Contact Info) Description 07/29/2024 8:30 AM CDT Office Visit [facility] [address] [place] [phone] [place] [address] [place] [phone] Diabetic ulcer of right midfoot associated [...] from your doctor or pharmacy? Never 06/06/2024 [facility] Utilities Answer Date Recorded In the past 12 months has e [employer], gas, oil, or water company threatened to [...] week 06/06/2024 How often do you attend [facility] or orthodoxy services? More than 4 times per year 06/06/2024 Do you belong to any clubs o r organizations such as catholic groups, unions, fraternal or athletic groups, or [...] Recorded Patient Health Questionnaire-2 Score 0 06/06/2024 [facility] - Occupational Stress Questionnaire Answer Date Recorded [...] time in the past 12 m [facility], were you homeless or living in [...] Sign Reading Time Taken Comments Blood Pressure 129/88 07/29/2024 10:27 AM CDT Pulse 72 07/29/2024 10:27 AM CDT Temperature 35.9 ??C (96.6 ??F) 07/29/2024 10:27 AM C DT Respiratory Rate 18 07/29/2024 10:27 AM CDT Oxygen Saturation - - Inhaled Oxygen Concentration - - Weight - - Height - - Body Mass Index - - documented in this encounter Patient Instructions * Patient Instructions* Valeria Tobar RN - 07/29/2024 8:30 AM CDT Return in 1 day for your next treatment. documented in this encounter Progress Notes * Valeria Tobar RN - 07/29/2024 8:30 AM CDT HYPERBARIC OXYGEN THERAPY TREATMENT # 12 2 ZAID for 90 minutes with no air breaks. Provider in wound clinic at time of treatment. Chamber: Chamber Number: [id number] Patient presented wearing off loading device to right foot, ordered dressings in place. Vitals: 07/29/24 1027 BP: 129/88 Pulse: 72 Resp: 18 Temp: (!) 35.9 ??C (96.6 ??F) Glucose Readings Pre Capillary Blood Glucose: 194 Post Capillary Blood Glucose: 125 Blood Glucose Reference Range: 65-95 If patient diabetic, was the Glycemia Interventions Protocol ordered by the physician? : Yes Hyperbaric Monitor Indications: Diabetic Kenney Grade 3 or Higher Treatment Start Time - Compression Begins at 1 ZAID: 0834 Rate Set PSI / Min: 2 Pressure Reached: 0842 ZAID: 2.0 Decompression Begins: 1012 Treatment End Time to 1 ZAID: 1022 Total Treatment Time: 108 Symptoms Noted During Treatment: None Hyperbaric Pre-Instpection Hyperbaric Pre-Inspection Consent Obtained: Yes Is there a TCOM ordered for the patient?: Completed Patient voided/noonan secured and emptied: Yes When did the patient last eat?: 0715 Last dose of injectable or oral hypoglycemic agent: 0700 Ostomy pouch emptied and vented (if applicable): Yes All implantable devices assessed, documented, and approved: Yes Intravenous access site secured and placed: Yes Valuables secured: Yes Linens are cotton: Yes Cotton Gown: Yes Glasses Removed: Yes Jewelery Removed: Yes Makeup Removed: Yes Hair Care Products Removed: Yes Wigs or Hair Pieces Removed: Yes Nail [place]ore[place] cured greater than 10 hours: Yes Personal [...] attestation - Vilma Neves MD - 07/29/2024 10:51 AM CDT HBOT Physician Documentation: Wound Examined? [...] st Contact Info) Description 08/24/2024 8:30 AM ANALYTICAL MANAGER Office Visit [facility] Wound Care [address] [place] [address] 08/24/2024 11:30 AM ANALYTICAL MANAGER Office Visit [facility] [address] [address] Angel Coombs, DPM [address] [place] [phone] 08/25/2024 8:30 AM ANALYTICAL MANAGER Office Visit [facility] Wound Care [address] [place] [address] 08/26/2024 8:30 AM ANALYTICAL MANAGER Office Visit [facility] [address] [place] [address] 08/27/2024 8:30 AM ANALYTICAL MANAGER Office Visit [facility] [address] [place] [address] 08/27/2024 11:00 AM ANALYTICAL MANAGER Office Visit [facility] [address] [place] [phone] Vilma Neves MD [address] [place] [phone] 08/28/2024 8:30 AM ANALYTICAL MANAGER Office Visit [facility] [address] [place] [address] 08/31/2024 8:30 AM ANALYTICAL MANAGER Office Visit [facility] [address] [place] [phone] 09/01/2024 8:30 AM ANALYTICAL MANAGER Office Visit [facility] [address] [place] [address] 09/02/2024 8:30 AM ANALYTICAL MANAGER Office Visit [facility] [address] [place] [address] 09/03/2024 8:30 AM ANALYTICAL MANAGER Office Visit [facility] [address] [place] [address] 08[address] 09/03/2024 11:00 AM ANALYTICAL MANAGER Office Visit [facility] [address] [place] [address] Vilma Neves MD [address] [place] [phone] 09/03/2024 11:00 AM ANALYTICAL MANAGER Office Visit [facility] Infectious Disease [address] [place] [phone] Amairani Sigala MD [address] [place] [address] [phone] 09/04/2024 8:30 AM ANALYTICAL MANAGER Office Visit [facility] [address] [place] [address] 09/07/2024 8:30 AM ANALYTICAL MANAGER Office Visit [facility] [address] [place] [phone] 09/08/2024 8:30 AM ANALYTICAL MANAGER Office Visit [facility] [address] [place] [address] 16[address] 09/09/2024 8:30 AM ANALYTICAL MANAGER Office Visit [facility] [address] [place] [address] 09/10/2024 8:30 AM ANALYTICAL MANAGER Office Visit [facility] [address] [place] [address] 09/10/2024 11:20 AM ANALYTICAL MANAGER Office Visit [facility] [address] [place] [address] Vilma Neves MD [address] [place] [address] [phone] 09/11/2024 8:30 AM ANALYTICAL MANAGER Office Visit [facility] [address] [place] [address] [phone] 09/14/2024 8:30 AM ANALYTICAL MANAGER Office Visit [facility] [address] [place] [address] [phone] 09/15/2024 8:30 AM ANALYTICAL MANAGER Office Visit [facility] [address] [place] [phone] documented as of this encounter Procedures Procedure Name Priority Date/Time Associated Diagnosis Comments POCT PRECISION GLUCOSE Routine 07/29/2024 10:26 AM CDT POCT PRECISION GLUCOSE Routine 07/29/2024 8:23 AM CDT documented in this encounter Results * (ABNORMAL) POCT Precision glucose (07/29/2024 10:26 AM CDT) Glucose Blood, POC 125(H) 70 - 100 mg/dL 07/29/2024 10:27 AM CDT [facility] Comment: Meter ID: [id number] Capillary whole blood specimens should not be used in patients receiving intensive medical intervention/therapy because of the potential for pre-analytical collection error and specifically in patients with decreased peripheral blood flow, as it may not truly reflect the patient? s true physiological state. Examples include, but are not limited to, severe hypotension, shock, hyperosmolar-hyperglycemia (with or without ketosis), and severe dehydration. 07/29/2024 10:2 6 AM CDT 07/29/2024 10:27 AM CDT Vilma Neves MD LAB POINT OF CARE TE ST DOCKED DEVICE UNSOLICITED RESULTS [facility] [address] [place] [phone] * (ABNORMAL) POCT Precision glucose (07/29/2024 8:23 AM CDT) Glucose Blood, POC 194(H) 70 - 100 mg/dL 07/29/2024 8:24 AM CDT [facility] Comment: Meter ID: [id number] Capillary whole blood specimens should not be used in patients receiving intensive medical intervention/therapy because of the potential for pre-analytical collection error and specifically in patients with decreased peripheral blood flow, as it may not truly reflect the patient? s true physiological state. Examples include, but are not limited to, severe hypotension, shock, hyperosmolar-hyperglycemia (with or without ketosis), and severe dehydration. 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
--- OUTSIDE RECORDS SUMMARY | 2024-08-21 10:21 | XMS_ITS | Encounter Summary ---
Author Organization [facility] er Address [address] [place] [address] Care Team Providers Care Furniture And Bedding Inspector Name Role Phone Thu Bhagat PA-C Primary Care Provider [phone] Reason for Visit * Reason Comments HBO * Consultation (Routine) - Authorized Specialty Diagnoses / Procedures Referred By Contac t Referred To Contact Wound Care Diagnoses Type 2 diabetes mellitus with foot ulcer Procedures Wound Care HBOT Thu Bhagat PA-C [address] [place] [address] [facility] [address] [place] [address] Referral ID Status Reason Start Date Expiration Date V isits Requested Visits Authorized [id number] Authorized 07/02/2024 10/11/2024 99 99 Encounter Details Date Type Department Care Team (Late st Contact Info) Description 07/24/2024 8:30 AM CDT Office Visit [facility] [address] [place] [address] [place] [address] [place] [phone] Diabetic ulcer of right midfoot associated [...] from your doctor or pharmacy? Never 06/06/2024 [facility] Utilities Answer Date Recorded In the past 12 months has e [employer], gas, oil, or water company threatened to [...] week 06/06/2024 How often do you attend [facility] or faith services? More than 4 times per year [...] Recorded Patient Health Questionnaire-2 Score 0 06/06/2024 [facility] - Occupational Stress Questionnaire Answer Date [...] Sign Reading Time Taken Comments Blood Pressure 126/86 07/24/2024 11:00 AM CDT Pulse 77 07/24/2024 11:00 AM CDT Temperature 35.7 ??C (96.3 ??F) 07/24/2024 11:00 AM C DT Respiratory Rate 16 07/24/2024 11:00 AM CDT Oxygen Saturation - - Inhaled Oxygen Concentration - - Weight - - Height - - Body Mass Index - - documented in this encounter Progress Notes * Karley Dickens, RAMÓN - 07/24/2024 8:30 AM CDT HYPERBARIC OXYGEN THERAPY TREATMENT # 9 2.0 Atmospheres Absolute for 90 minutes without air-breaks Chamber: Chamber Number: [id number] Patient presented wearing off loading device to right foot, ordered dressings in place. Vitals: 07/24/24 1100 BP: 126/86 Pulse: 77 Resp: 16 Temp: (!) 35.7 ??C (96.3 ??F) Glucose Readings Pre Capillary Blood Glucose: 216 Post Capillary Blood Glucose: 174 Blood Glucose Reference Range: 65-95 If patient diabetic, was the Glycemia Interventions Protocol ordered by the physician? : Yes Hyperbaric Monitor Indications: Diabetic Kenney Grade 3 or Higher Treatment Start Time - Compression Begins at 1 ZAID: 0913 Rate Set PSI / Min: 1.5 Pressure Reached: 0923 ZAID: 2.0 Decompression Begins: 1053 Treatment End Time to 1 ZAID: 1105 Total Treatment Time: 112 Symptoms Noted During Treatment: None Hyperbaric Pre-Instpection Hyperbaric Pre-Inspection Consent Obtained: Yes Is there a TCOM ordered for the patient?: Completed Patient voided/noonan secured and emptied: Yes When did the patient last eat?: 0730 Last dose of injectable or oral hypoglycemic agent: 729 Ostomy pouch emptied and vented (if applicable): N/A All implantable devices assessed, documented, and approved: Yes Intravenous access site secured and placed: N/A Valuables secured: Yes Linens are cotton: Yes Cotton Gown: Yes Glasses Removed: Yes Jewelery Removed: Yes Makeup Removed: Yes Hair Care Products Removed: Yes Wigs or Hair Pieces Removed: Yes Nail syriac cured greater than 10 hours: Yes Personal [...] Associated attestation - Vilma Neves MD - 07/28/2024 10:13 AM CDT HBOT Physician Documentation: Wound Examined? [...] st Contact Info) Description 08/24/2024 8:30 AM CONTINUOUS DRYOUT OPERATOR HELPER Office Visit [facility] [address] [place] [address] 08/24/2024 11:30 AM CONTINUOUS DRYOUT OPERATOR HELPER Office [facility] [address] [place] [address] Angel Coombs, DPHang [address] [place] [phone] 08/25/2024 8:30 AM CONTINUOUS DRYOUT OPERATOR HELPER Office Visit [facility] [address] [place] [address] 08/26/2024 8:30 AM CONTINUOUS DRYOUT OPERATOR HELPER Office Visit [facility] [address] [place] [address] 08/27/2024 8:30 AM CONTINUOUS DRYOUT OPERATOR HELPER Office Visit [facility] [address] [place] [address] 08/27/2024 11:00 AM CONTINUOUS DRYOUT OPERATOR HELPER Office Visit [facility] [address] [place] [address] Vilma Neves MD [address] [place] [phone] 08/28/2024 8:30 AM CONTINUOUS DRYOUT OPERATOR HELPER Office Visit [facility] [address] [place] [address] 08/31/2024 8:30 AM CONTINUOUS DRYOUT OPERATOR HELPER Office Visit [facility] [address] [place] [address] 09/01/2024 8:30 AM CONTINUOUS DRYOUT OPERATOR HELPER Office Visit [facility] [address] [place] [address] 09/02/2024 8:30 AM CONTINUOUS DRYOUT OPERATOR HELPER Office Visit [facility] [address] [place] [address] 09/03/2024 8:30 AM CONTINUOUS DRYOUT OPERATOR HELPER Office Visit [facility] [address] [place] [address] 09/03/2024 11:00 AM CONTINUOUS DRYOUT OPERATOR HELPER Office Visit [facility] [address] [place] [address] Vilma Neves MD [address] [place] [phone] 09/03/2024 11:00 AM CONTINUOUS DRYOUT OPERATOR HELPER Office Visit [facility] [address] [place] [address] Amairani Sigala MD [address] [place] [phone] 09/04/2024 8:30 AM CONTINUOUS DRYOUT OPERATOR HELPER Office Visit [facility] [address] [place] [address] 09/07/2024 8:30 AM CONTINUOUS DRYOUT OPERATOR HELPER Office Visit [facility] [address] [place] [address] 09/08/2024 8:30 AM CONTINUOUS DRYOUT OPERATOR HELPER Office Visit [facility] [address] [place] [address] 09/09/2024 8:30 AM CONTINUOUS DRYOUT OPERATOR HELPER Office Visit [facility] [address] [place] [address] 09/10/2024 8:30 AM CONTINUOUS DRYOUT OPERATOR HELPER Office Visit [facility] [address] [place] [address] 09/10/2024 11:20 AM CONTINUOUS DRYOUT OPERATOR HELPER Office Visit [facility] [address] [place] [address] Vilma Neves MD [address] [place] [phone] 09/11/2024 8:30 AM CONTINUOUS DRYOUT OPERATOR HELPER Office Visit [facility] [address] [place] [address] 09/14/2024 8:30 AM CONTINUOUS DRYOUT OPERATOR HELPER Office Visit [facility] [address] [place] [address] 09/15/2024 8:30 AM CONTINUOUS DRYOUT OPERATOR HELPER Office Visit [facility] [address] [place] [address] documented as of this encounter Procedures Procedure Name Priority Date/Time Associated Diagnosis Comments POCT PRECISION GLUCOSE Routine 07/24/2024 11:07 AM CDT POCT PRECISION GLUCOSE Routine 07/24/2024 8:57 AM CDT documented in this encounter Results * (ABNORMAL) POCT Precision glucose (07/24/2024 11:07 AM CDT) Glucose Blood, POC 174(H) 70 - 100 mg/dL 07/24/2024 11:[address] [facility] Comment: Meter ID: [id number] Capillary whole blood specimens should not be used in patients receiving intensive medical intervention/therapy because of the potential for pre-analytical collection error and specifically in patients with decreased peripheral blood flow, as it may not truly reflect the patient? s true physiological state. Examples include, but are not limited to, severe hypotension, shock, hyperosmolar-hyperglycemia (with or without ketosis), and severe dehydration. 07/24/2024 11:0 7 AM CDT 07/24/2024 11:09 AM CDT Vilma Neves MD LAB POINT OF CARE TE ST DOCKED DEVICE UNSOLICITED RESULTS [facility] [address] [place] [address] * (ABNORMAL) POCT Precision glucose (07/24/2024 8:57 AM CDT) Glucose Blood, POC 218(H) 70 - 100 mg/dL 07/24/2024 8:[address] [facility] Comment: Meter ID: [id number] Capillary whole blood specimens should not be used in patients receiving intensive medical intervention/therapy because of the potential for pre-analytical collection error and specifically in patients with decreased peripheral blood flow, as it may not truly reflect the patient? s true physiological state. Examples include, but are not limited to, severe hypotension, shock, hyperosmolar-hyperglycemia (with or without ketosis), and severe dehydration. 07/24/2024 8:57 AM CDT 07/24/2024 8:58 AM CDT Vilma Neves MD LAB POINT OF CARE TE ST DOCKED DEVICE UNSOLICITED RESULTS 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
--- OUTSIDE RECORDS SUMMARY | 2024-08-21 10:21 | XMS_ITS | Encounter Summary ---
Author Organization [facility] er Address [address] [place] [address] Care Team Providers Care Daycare Worker Name Role Phone Thu Bhagat PA-C Primary Care Provider Reason for Visit * Reason Comments HBO * Consultation (Routine) - Authorized Specialty Diagnoses / Procedures Referred By Contac t Referred To Contact Wound Care Diagnoses Type 2 diabetes mellitus with foot ulcer Procedures Wound Care HBOT Thu Bhagat PA-C [address] [place] [phone] [facility] Wound Care [address] [place] [address] Referral ID Status Reason Start Date Expiration Date V isits Requested Visits Authorized [id number] Authorized 07/02/2024 10/11/2024 99 99 Encounter Details Date Type Department Care Team (Late st Contact Info) Description 07/28/2024 8:30 AM CDT Office Visit [facility] [address] [place] [address] [place] [address] [place] [phone] Diabetic ulcer of right midfoot associated [...] from your doctor or pharmacy? Never 06/06/2024 [facility] Utilities Answer Date Recorded In the past 12 months has e [employer], gas, oil, or water company threatened to [...] you attend [facility] or protestant services? More than 4 times per year [...] Score 0 06/06/2024 [facility] - Occupational Stress Questionnaire Answer [...] any time in the past 12 m [facility], were you homeless or [...] Sign Reading Time Taken Comments Blood Pressure 130/74 07/28/2024 11:00 AM CDT Pulse 66 07/28/2024 11:00 AM CDT Temperature 35.9 ??C (96.6 ??F) 07/28/2024 11:00 AM C DT Respiratory Rate 18 07/28/2024 11:00 AM CDT Oxygen Saturation - - Inhaled Oxygen Concentration - - Weight - - Height - - Body Mass Index - - documented in this encounter Patient Instructions * Patient Instructions* Valeria Tobar RN - 07/28/2024 8:30 AM CDT Return in 1 day for your next HBO treatment. documented in this encounter Progress Notes * Valeria Tobar RN - 07/28/2024 8:30 AM CDT HYPERBARIC OXYGEN THERAPY TREATMENT # 11 2 ZAID for 90 minutes with no air breaks. Provider in wound clinic at time of treatment. Chamber: Chamber Number: [id number] Patient presented wearing off loading device to right foot, ordered dressings in place. Vitals: 07/28/24 1100 BP: 130/74 Pulse: 66 Resp: 18 Temp: (!) 35.9 ??C (96.6 ??F) Glucose Readings Pre Capillary Blood Glucose: 205 Post Capillary Blood Glucose: 103 Blood Glucose Reference Range: 65-95 If patient diabetic, was the Glycemia Interventions Protocol ordered by the physician? : Yes Hyperbaric Monitor Indications: Diabetic Kenney Grade 3 or Higher Treatment Start Time - Compression Begins at 1 ZAID: 0902 Rate Set PSI / Min: 2 Pressure Reached: 0911 ZAID: 2.0 Decompression Begins: 1041 Treatment End Time to 1 ZAID: 1050 Total Treatment Time: 108 Symptoms Noted During [...] Wigs or Hair Pieces Removed: Yes Nail armenian cured greater than 10 hours: Yes Personal [...] attestation - Vilma Neves MD - 07/28/2024 2:35 PM CDT HBOT Physician Documentation: Wound Examined? Yes-please see detailed wound findings well woman visit on 07/28/2024. Patient Cleared for HBO? Yes Continue HBO? [...] st Contact Info) Description 08/24/2024 8:30 AM BD SPECIAL EDUCATION TEACHER Office Visit [facility] [address] [place] [address] 08/24/2024 11:30 AM BD SPECIAL EDUCATION TEACHER Office Visit Podiatry [address] [address] Angel Coombs, DPHang [address] [place] [phone] 08/25/2024 8:30 AM BD SPECIAL EDUCATION TEACHER Office Visit [facility] Wound Care [address] [place] [address] 08/26/2024 8:30 AM BD SPECIAL EDUCATION TEACHER Office Visit [facility] Wound Care [address] [place] [address] 08/27/2024 8:30 AM BD SPECIAL EDUCATION TEACHER Office Visit [facility] Wound Care [address] [place] [address] 08/27/2024 11:00 AM BD SPECIAL EDUCATION TEACHER Office Visit [facility] Wound Care [address] [place] [address] Vilma Neves MD [address] [place] [phone] 08/28/2024 8:30 AM BD SPECIAL EDUCATION TEACHER Office Visit [facility] Wound Care [address] [place] [address] 08/31/2024 8:30 AM BD SPECIAL EDUCATION TEACHER Office Visit [facility] Wound Care [address] [place] [phone] 09/01/2024 8:30 AM BD SPECIAL EDUCATION TEACHER Office Visit [facility] Wound Care [address] [place] [address] 09/02/2024 8:30 AM BD SPECIAL EDUCATION TEACHER Office [facility] [address] [place] [address] 18[address] 09/03/2024 8:30 AM BD SPECIAL EDUCATION TEACHER Office Visit [facility] Wound Care [address] [place] [phone] 09/03/2024 11:00 AM BD SPECIAL EDUCATION TEACHER Office [facility] [address] [place] [address] Vilma Neves MD [address] [place] [phone] 09/03/2024 11:00 AM BD SPECIAL EDUCATION TEACHER Office Visit [facility] Infectious Disease [address] [place] [address] Amairani Sigala MD [address] [place] [phone] 09/04/2024 8:30 AM BD SPECIAL EDUCATION TEACHER Office [facility] [address] [place] [address] 09/07/2024 8:30 AM BD SPECIAL EDUCATION TEACHER Office Visit [facility] [address] [place] [address] 09/08/2024 8:30 AM BD SPECIAL EDUCATION TEACHER Office Visit [facility] [address] [place] [address] 102[address] 09/09/2024 8:30 AM BD SPECIAL EDUCATION TEACHER Office Visit [facility] [address] [place] [address] 339[address] 09/10/2024 8:30 AM BD SPECIAL EDUCATION TEACHER Office Visit [facility] [address] [place] [address] 9[address] 09/10/2024 11:20 AM BD SPECIAL EDUCATION TEACHER Office Visit [facility] [address] [place] [address] Vilma Neves MD [address] [place] [phone] 09/11/2024 8:30 AM BD SPECIAL EDUCATION TEACHER Office Visit [facility] Care [address] [place] [address] [phone] 09/14/2024 8:30 AM BD SPECIAL EDUCATION TEACHER Office Visit [facility] Care [address] [place] [address] [phone] 09/15/2024 8:30 AM BD SPECIAL EDUCATION TEACHER Office Visit [facility] Care [address] [place] [address] [phone] documented as of this encounter Procedures Procedure Name Priority Date/Time Associated Diagnosis Comments POCT PRECISION GLUCOSE Routine 07/28/2024 10:55 AM CDT POCT PRECISION GLUCOSE Routine 07/28/2024 8:46 AM CDT documented in this encounter Results * (ABNORMAL) POCT Precision glucose (07/28/2024 10:55 AM CDT) Glucose Blood, POC 103(H) 70 - 100 mg/dL 07/28/2024 10:58 AM CDT [facility] Comment: Meter ID: [id number] Capillary whole blood specimens should not be used in patients receiving intensive medical intervention/therapy because of the potential for pre-analytical collection error and specifically in patients with decreased peripheral blood flow, as it may not truly reflect the patient? s true physiological state. Examples include, but are not limited to, severe hypotension, shock, hyperosmolar-hyperglycemia (with or without ketosis), and severe dehydration. 07/28/2024 10:5 5 AM CDT 07/28/2024 10:59 AM CDT Vilma Neves MD LAB POINT OF CARE TE ST DOCKED DEVICE UNSOLICITED RESULTS [facility] [address] [place] [address] * (ABNORMAL) POCT Precision glucose (07/28/2024 8:46 AM CDT) Glucose Blood, POC 205(H) 70 - 100 mg/dL 07/28/2024 8:46 AM CDT [facility] Comment: Meter ID: [id number] Capillary whole blood specimens should not be used in patients receiving intensive medical intervention/therapy because of the potential for pre-analytical collection error and specifically in patients with decreased peripheral blood flow, as it may not truly reflect the patient? s true physiological state. Examples include, but are not limited to, severe hypotension, shock, hyperosmolar-hyperglycemia (with or without ketosis), and severe dehydration. 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
--- OUTSIDE RECORDS SUMMARY | 2024-08-21 10:22 | XMS_ITS | Encounter Summary ---
Author Organization [facility] er Address [address] [place] [address] Care Team Providers Care Layer Out Plate Glass Name Role Phone Thu Bhagat PA-C Primary Care Provider [phone] Reason for Visit * Reason Comments OP Infusion * Consultation (Routine) - Authorized Specialty Diagnoses / Procedures Referred By Conteufemia t Referred To Contact Infusion Therapy Diagnoses Infection of right foot Pina Méndez MD [address] [place] [phone] [facility] Infusion Therapy [address] [place] [address] Referral ID Status Reason Start Date Expiration Date Visits Requested Visits Authorized [id number] Authorized Specialty Services Required 06/17/2024 12/15/2024 99 [phone] Encounter Details Date Type Department Care Team ([facility] st Contact Info) Description 07/21/2024 2:00 PM CDT Infusion [facility] Infusion Therapy [address] [place] [phone] Diabetic ulcer of right midfoot associated with [...] from your doctor or pharmacy? Never 06/06/2024 [facility] Utilities Answer Date Recorded In the [...] often do you attend chur ch or anglican services? More than 4 times per year 06/06/2024 Do you belong to any clubs o r organizations such as adventism groups, unions, fraternal or athletic groups, or [...] Patient Health Questionnaire-2 Score 0 06/06/2024 [facility] - Occupational [...] any time in the past 12 m [facility], were you homeless or living in a [place] health care facility (including now)? No 06/06/2024 Interpersonal Safety Questionnaire [...] Contact Info) Description 08/24/2024 8:30 AM MANAGER TRACK Office Visit [facility] [address] [place] [address] 08/24/2024 11:30 AM MANAGER TRACK Office Visit [facility] [address] [address] Angel Coombs, DPM [address] [place] [phone] 08/25/2024 8:30 AM MANAGER TRACK Office Visit [facility] [address] [place] [address] 08/26/2024 8:30 AM MANAGER TRACK Office Visit [facility] [address] [place] [address] 08/27/2024 8:30 AM MANAGER TRACK Office Visit [facility] [address] [place] [address] 08/27/2024 11:00 AM MANAGER TRACK Office Visit [facility] [address] [place] [address] [place] [address] [place] [phone] 08/28/2024 8:30 AM MANAGER TRACK Office Visit [facility] [address] [place] [address] 08/31/2024 8:30 AM MANAGER TRACK Office Visit [facility] [address] [place] [address] 09/01/2024 8:30 AM MANAGER TRACK Office Visit [facility] [address] [place] [address] 09/02/2024 8:30 AM MANAGER TRACK Office Visit [facility] Wound Care [address] [place] [address] 09/03/2024 8:30 AM MANAGER TRACK Office Visit [facility] Wound Care [address] [place] [address] 09/03/2024 11:00 AM MANAGER TRACK Office Visit [facility] [address] [place] [address] Vilma Neves MD [address] [place] [phone] 09/03/2024 11:00 AM MANAGER TRACK Office Visit [facility] Infectious Disease [address] [place] [address] Amairani Sigala MD [address] [place] [phone] 09/04/2024 8:30 AM MANAGER TRACK Office Visit [facility] Wound Care [address] [place] [phone] 09/07/2024 8:30 AM MANAGER TRACK Office Visit [facility] Wound Care [address] [place] [address] 09/08/2024 8:30 AM MANAGER TRACK Office Visit [facility] [address] [place] [address] 09/09/2024 8:30 AM MANAGER TRACK Office Visit [facility] Wound Care [address] [place] [address] 116[address] 09/10/2024 8:30 AM MANAGER TRACK Office Visit [facility] Wound Care [address] [place] [address] 09/10/2024 11:20 AM MANAGER TRACK Office Visit [facility] Wound Care [address] [place] [address] Vilma Neves MD [address] [place] [phone] 09/11/2024 8:30 AM MANAGER TRACK Office Visit [facility] [address] [place] [address] 09/14/2024 8:30 AM MANAGER TRACK Office Visit [facility] [address] [place] [address] 09/15/2024 8:30 AM MANAGER TRACK Office Visit [facility] [address] [place] [phone] documented as of this encounter Visit Diagnoses Diagnosis Diabetic ulcer of right midfoot associated with type 2 diabetes mellitus, 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
--- OUTSIDE RECORDS SUMMARY | 2024-08-21 10:22 | XMS_ITS | Encounter Summary ---
Author Organization [facility] er Address [address] [place] [address] Care Team Providers Care Cripple Worker Name Role Phone Thu Bhagat PA-C Primary Care Provider [phone] Encounter Details Date Type Department Care Team (Late st Contact Info) Description 07/20/2024 Telephone [facility] N[facility] Thro[facility] [address] [place] [address] None, Pcp [address] [place] [address] Social History Tobacco Use Types Packs/Day Years [...] from your doctor or pharmacy? Never 06/06/2024 [facility] Utilities Answer Date Recorded In the past 12 months has e [employer] gas, oil, or water [employer] threatened to shut off services in your [...] How often do you attend chur or zoroastrian services? More than 4 times per year 06/06/2024 Do you belong to any clubs o r organizations such as sabianist groups, unions, fraternal or athletic groups, or [...] Recorded Patient Health Questionnaire-2 Score 0 06/06/2024 [facility] - Occupational [...] any time in the past 12 m [facility], were you homeless or [...] encounter Miscellaneous Notes * Telephone Encounter - Sakshi Hyman - 07/20/2024 12:21 PM CDT LMTCB, ENT nursing would like pt worked in 07/23 at 9am documented in this encounter Plan of Treatment Upcoming Encounters Date Type Department Care Team (Late st Contact Info) Description 08/24/2024 8:30 AM ACADEMIC COACH Office Visit [facility] [address] [place] [address] 08/24/2024 11:30 AM ACADEMIC COACH Office Visit [facility] [address] [place] [address] Angel Coombs, DPM [address] [place] [phone] 08/25/2024 8:30 AM ACADEMIC COACH Office Visit [facility] [address] [place] [address]60 08/26/2024 8:30 AM ACADEMIC COACH Office Visit [facility] [address] [place] [address] 08/27/2024 8:30 AM ACADEMIC COACH Office Visit [facility] [address] [place] [address] 08/27/2024 11:00 AM ACADEMIC COACH Office Visit [facility] [address] [place] [address] Vilma Neves MD [address] [place] [phone] 08/28/2024 8:30 AM ACADEMIC COACH Office Visit [facility] [address] [place] [address] 08/31/2024 8:30 AM ACADEMIC COACH [facility] [address] [place] [address]652 09/01/2024 8:30 AM ACADEMIC COACH [facility] [address] [place] [address]41 09/02/2024 8:30 AM ACADEMIC COACH [facility] [address] [place] [address] 84219 09/03/2024 8:30 AM ACADEMIC COACH Office Visit [facility] [address] [place] [address] 76795 09/03/2024 11:00 AM ACADEMIC COACH Office Visit [facility] [address] [place] [address] Vilma Neves MD [address] [place] [phone] 09/03/2024 11:00 AM ACADEMIC COACH Office Visit [facility] Infectious Disease [address] [place] [address] Amairani Sigala MD [address] [place] [address] [phone] 09/04/2024 8:30 AM ACADEMIC COACH Office Visit [facility] W[facility] [address] [place] [address]44[address] 09/07/2024 8:30 AM ACADEMIC COACH Office Visit [facility] [address] [place] [address]27 09/08/2024 8:30 AM ACADEMIC COACH Office Visit [facility] [address] [place] [address] 09170 09/09/2024 8:30 AM ACADEMIC COACH Office Visit [facility] [address] [place] [address] 89772 09/10/2024 8:30 AM ACADEMIC COACH Office Visit [facility] [address] [place] [address] 41659 09/10/2024 11:20 AM ACADEMIC COACH Office Visit [facility] [address] [place] [address]20 Vilma Neves MD [address] [place] [phone] 09/11/2024 8:30 AM ACADEMIC COACH Office Visit [facility] [address] [place] [address] 70[address] 09/14/2024 8:30 AM ACADEMIC COACH Office Visit [facility] [address] [place] [address] 72178 09/15/2024 8:30 AM ACADEMIC COACH Office Visit [facility] [address] [place] [address] documented as of this encounter Visit Diagnoses Not on filedocumented in this encounter Care Teams Cripple Worker Relationship Specialty Start Date End Date Thu Bhagat PA-C [address] [place] [phone] PCP - General 11/26/22 documented as of this encounter
--- OUTSIDE RECORDS SUMMARY | 2024-08-21 10:22 | XMS_ITS | Encounter Summary ---
Author Organization [facility] er Address [address] [place] [address] Care Team Providers Care Features Editor Name Role Phone Thu Bhagat PA-C Primary Care Provider [phone] Encounter Details Date Type Department Care Team (Late st Contact Info) Description 07/16/2024 Orders Only [facility] [address] [place] [address] Vilma Neves MD [address] [place] [phone] Social History Tobacco Use Types Packs/Day Years [...] doctor or pharmacy? Never 06/06/[address] [facility] Utilities Answer Date Recorded In [...] How often do you attend chur or adventist services? More than 4 times per year 06/06/2024 Do you belong to any clubs o r organizations such as gnosticist groups, unions, fraternal or athletic groups, or [...] Recorded Patient Health Questionnaire-2 Score 0 06/06/2024 [facility] Occupat ional Health - Occupational Stress [...] any time in the past 12 m [facility], were you homeless or living [...] harm? Never 06/06/2024 How often does anyone, juanu ding family and friends, threaten you with harm? Never 06/06/2024 Sex and Gender Information Value Date Recorded Sex Assigned at Not on file Gender Identity Not on file Sexual Orientation Not on file documented as of this encounter Plan of Treatment Upcoming Encounters Date Type Department Care Team (Late st Contact Info) Description 08/24/2024 8:30 AM PHOTOGRAPHIC LABORATORY SUPERVISOR Office Visit [facility] Care [address] [place] [address] 08/24/2024 11:30 AM PHOTOGRAPHIC LABORATORY SUPERVISOR Office Visit Podiatry [address], [place] [address] Angel Coombs, DPM [address] [place] [phone] 08/25/2024 8:30 AM PHOTOGRAPHIC LABORATORY SUPERVISOR Office Visit [facility] [address] [place] [address] 08/26/2024 8:30 AM PHOTOGRAPHIC LABORATORY SUPERVISOR Office Visit [facility] [address] [place] [address] 59937 08/27/2024 8:30 AM PHOTOGRAPHIC LABORATORY SUPERVISOR Office Visit [facility] [address] [place] [address] 26430 08/27/2024 11:00 AM PHOTOGRAPHIC LABORATORY SUPERVISOR Office Visit [facility] [address] [place] [address] Vilma Neves MD [address] [place] [phone] 08/28/2024 8:30 AM PHOTOGRAPHIC LABORATORY SUPERVISOR Office Visit [facility] [address] [place] [address] 68[address] 08/31/2024 8:30 AM PHOTOGRAPHIC LABORATORY SUPERVISOR Office Visit [facility] [address] [place] [address] 22565 09/01/2024 8:30 AM PHOTOGRAPHIC LABORATORY SUPERVISOR Office Visit [facility] [address] [place] [address] 25905 09/02/2024 8:30 AM PHOTOGRAPHIC LABORATORY SUPERVISOR Office Visit [facility] [address] [place] [address] 70601 09/03/2024 8:30 AM PHOTOGRAPHIC LABORATORY SUPERVISOR Office Visit [facility] [address] [place] [address] 36302 09/03/2024 11:00 AM PHOTOGRAPHIC LABORATORY SUPERVISOR Office Visit [facility] [address] [place] [address] Vilma Neves MD [address] [place] [phone] 09/03/2024 11:00 AM PHOTOGRAPHIC LABORATORY SUPERVISOR Office Visit [facility] Infectious Disease [address] [place] [address]64 Amairani Sigala MD [address] [place] [phone] 09/04/2024 8:30 AM PHOTOGRAPHIC LABORATORY SUPERVISOR Office Visit [facility] [address] [place] [address] 75545 09/07/2024 8:30 AM PHOTOGRAPHIC LABORATORY SUPERVISOR Office Visit [facility] Care [address] [place] [address] 66066 09/08/2024 8:30 AM PHOTOGRAPHIC LABORATORY SUPERVISOR Office Visit [facility] Care [address] [place] [address] 97193 09/09/2024 8:30 AM PHOTOGRAPHIC LABORATORY SUPERVISOR Office Visit [facility] [address] [place] [address] 69405 09/10/2024 8:30 AM PHOTOGRAPHIC LABORATORY SUPERVISOR Office Visit [facility] [address] [place] [address] 23297 09/10/2024 11:20 AM PHOTOGRAPHIC LABORATORY SUPERVISOR Office Visit [facility] [address] [place] [address] Vilma Neves MD [address] [place] [phone] 09/11/2024 8:30 AM PHOTOGRAPHIC LABORATORY SUPERVISOR Office Visit [facility] [address] [place] [address] 58744 09/14/2024 8:30 AM PHOTOGRAPHIC LABORATORY SUPERVISOR Office Visit [facility] [address] [place] [address] [phone] 09/15/2024 8:30 AM PHOTOGRAPHIC LABORATORY SUPERVISOR Office Visit [facility] W[facility] Care [address] [place] [phone] documented as of this encounter Visit Diagnoses Not on filedocumented in this encounter Care Teams Features Editor Relationship Specialty Start Date End Date Thu Bhagat PA-C 1 [place] [phone] PCP - General 11/26/22 documented as of this encounter
--- OUTSIDE RECORDS SUMMARY | 2024-08-21 10:22 | XMS_ITS | Encounter Summary ---
Author Organization [facility] er Address [address] [place] [address] Care Team Providers Care Tipple Greaser Name Role Phone Thu Bhagat PA-C Primary Care Provider [phone] Reason for Visit * Reason Comments Wound Check * Consultation (Routine) - Authorized Specialty Diagnoses / Procedures Referred By Contac t Referred To Contact Wound Care Diagnoses Type 2 diabetes mellitus with foot ulcer Procedures Wound Care HBOT Thu Bhagat PA-C [address] [place] [phone] [facility] Wound Care [address] [place] [address] Referral ID Status Reason Start Date Expiration Date V isits Requested Visits Authorized [id number] Authorized 07/02/2024 10/11/2024 99 99 Encounter Details Date Type Department Care Team (Late st Contact Info) Description 07/21/2024 12:45 PM CDT Office Visit [facility] W[facility] Care [address] [place] [address] [place] [address] [place] [phone] Diabetic ulcer of right midfoot associated [...] from your doctor or pharmacy? Never 06/06/2024 [facility] Utilities Answer Date Recorded In the past 12 months has e [employer], [employer], oil, or water [employer] threatened to shut off services in your [...] How often do you attend chur or uatsdin services? More than 4 times per year [...] Patient Health Questionnaire-2 Score 0 06/06/2024 [facility] of Occupat ional Health - Occupational Stress [...] you? Never 06/06/2024 How often does anyone, ytrell kerns family and friends, insult or talk [...] * Patient Instructions* Wanda Marquez RN - 07/21/2024 12:45 PM CDT Keep dressings clean and dry; call the wound clinic with any questions or concerns. documented in this encounter Progress Notes * Vilma Neves MD - 07/21/2024 12:45 PM CDT Advanced Wound Healing Visit Type: Established patient Subjective Francisco Javier Fung is a 69 y.o. male who presents today for wound check. 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 He is accompanied by his Nicki. He has been undergoing xenograft placement with Kerecis and doing well. Home health is scheduled to start this week. Patient is currently receiving daily oxygen adjuvant therapy. Hedenies any headaches, sinus pressure, shortness of breath or chest pain. Patient will have his earscleaned later this week by ENT due to bilateral cerumen impaction. Patient maintains glycemic control. The following portions of the patient's history were reviewed by a provider in this encounter and updated as appropriate: Tobacco Allergies Meds Problems Med Hx Surg Hx Fam Hx Objective Visit Vitals Smoking Status Never Wound: Wound #1 right dorsal foot ulceration down to muscle fascia, increased granulation and woundbed contraction clear periwound decreased central tunneling, overlying slough, overall improved Procedure Note: Wound #1 Time-out: 1214 Grafting: Kerecis 4 cm?? micronized, 100% utilized, 8.96 cm?? total grafted Excisional debridement: muscle (outside [...] of necrosis Pre debridement measurements (cm's) L 5.6 cm W 1.6 cm D 1 cm total sq cm 8.96 cm^2 Post debridement measurements (cm's) L 5.6 cm W 1.6 cm D 1.3 cm total sq cm 8.96 cm^2 Assessment/Plan Diagnoses and all orders for this visit: Diabetic ulcer of right midfoot associated with type 2 diabetes mellitus, 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 ([facility]) [E11.621, L97.415] - Nursing Orders- External Facility Wound / Level of debridement: Wound #1-muscle Grafting: Kerecis 4 cm?? micronized, 100% utilized, 8.96 cm?? total grafted Dressing: Promogran, Mepilex plan to resume negative pressure wound therapy next week Off-loading: Wheelchair, Rooke boot Compression: Stockinette 2 layer Tubigrip. ANNA previously ordered and awaiting results Antibiotics: Per infectious disease Glucose optimization: Glycemic control since discharge from hospital after amputation. Continue working with PCP Details of today???s [...] st Contact Info) Description 08/24/2024 8:30 AM ALPINE GUIDE Office Visit [facility] Wound Care [address] [place] [address] 08/24/2024 11:30 AM ALPINE GUIDE Office Visit Podiatry [address] [address] Angel Coombs, DPM [address] [place] [phone] 08/25/2024 8:30 AM ALPINE GUIDE Office Visit [facility] W[facility] Care [address] [place] [address] 08/26/2024 8:30 AM ALPINE GUIDE Office Visit [facility] Wound Care [address] [place] [address] 08/27/2024 8:30 AM ALPINE GUIDE Office Visit [facility] Wound [facility] [address] [place] [address] 08/27/2024 11:00 AM ALPINE GUIDE Office Visit [facility] W[facility] Care [address] [place] [address] Vilma Neves MD [address] [place] [phone] 08/28/2024 8:30 AM ALPINE GUIDE Office Visit [facility] W[facility] Care [address] [place] [address] 08/31/2024 8:30 AM ALPINE GUIDE Office Visit [facility] Wound Care [address] [place] [address] 09/01/2024 8:30 AM ALPINE GUIDE Office Visit [facility] Wound Care [address] [place] [phone] 09/02/2024 8:30 AM ALPINE GUIDE Office Visit [facility] W[facility] Care [address] [place] [address] 09/03/2024 8:30 AM ALPINE GUIDE Office Visit [facility] Wound Care [address] [place] [phone] 09/03/2024 11:00 AM ALPINE GUIDE Office Visit [facility] Wound Care [address] [place] [address] Vilma Neves MD [address] [place] [phone] 09/03/2024 11:00 AM ALPINE GUIDE Office Visit [facility] Infectious Disease [address] [place] [phone] Amairani Sigala MD [address] [place] [phone] 09/04/2024 8:30 AM ALPINE GUIDE Office Visit [facility] Wound Care [address] [place] [address] 09/07/2024 8:30 AM ALPINE GUIDE Office Visit [facility] Wound Care [address] [place] [phone] 09/08/2024 8:30 AM ALPINE GUIDE Office Visit [facility] Wound Care [address] [place] [phone] 09/09/2024 8:30 AM ALPINE GUIDE Office Visit [facility] Wound Care [address] [place] [address] 09/10/2024 8:30 AM ALPINE GUIDE Office Visit [facility] Wound Care [address] [place] [phone] 09/10/2024 11:20 AM ALPINE GUIDE Office Visit [facility] Wound Care [address] [place] [address] Vilma Neves MD [address] [place] [phone] 09/11/2024 8:30 AM ALPINE GUIDE Office Visit [facility] Wound Care [address] [place] [address] 09/14/2024 8:30 AM ALPINE GUIDE Office Visit [facility] Wound Care [address] [place] [address] 09/15/2024 8:30 AM ALPINE GUIDE Office Visit [facility] Wound Care [address] [place] [phone] documented as of this encounter Visit Diagnoses Diagnosis Diabetic ulcer of right midfoot associated with type 2 diabetes mellitus, 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
--- OUTSIDE RECORDS SUMMARY | 2024-08-21 10:22 | XMS_ITS | Encounter Summary ---
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 Never 06/06/[address] [facility] Utilities Answer Date Recorded In the past 12 months has th e electric, gas, oil, or water company [...] often do you attend chur ch or sikh services? More than 4 times per year [...] Score 0 06/06/2024 [facility] of Occupat ional Health - Occupational [...] were you homeless or living in a retirement (including now)? No 06/06/2024 Interpersonal Safety Questionnaire [...] Sign Reading Time Taken Comments Blood Pressure 115/90 07/21/2024 10:44 AM CDT Pulse 92 07/21/2024 10:44 AM CDT Temperature 36 ??C (96.8 ??F) 07/21/2024 10:44 AM CDT Respiratory Rate 18 07/21/2024 10:44 AM CDT Oxygen Saturation - - Inhaled Oxygen Concentration - - Weight - - Height - - Body Mass Index - - documented in this encounter Patient Instructions * Patient Instructions* Valeria Tobar RN - 07/21/2024 8:30 AM CDT Return in 1 day for your next HBO treatment. documented in this encounter Progress Notes * Rocco Couch PA-C - 07/21/2024 8:30 AM CDT HYPERBARIC OXYGEN THERAPY TREATMENT # 6 2 ZAID for 90 minutes with no air breaks. Provider in wound clinic at time of treatment. Chamber: Chamber Number: [id number] Patient presented wearing off loading device to right foot, ordered dressings in place. Vitals: 07/21/24 1044 BP: (!) 115/90 Pulse: 92 Resp: 18 Temp: (!) 36 ??C (96.8 ??F) Glucose Readings Pre Capillary Blood Glucose: 244 Post Capillary Blood Glucose: 166 Blood Glucose Reference Range: 65-95 If patient diabetic, was the Glycemia Interventions Protocol ordered by the physician? : Yes Hyperbaric Monitor Indications: Diabetic Kenney Grade 3 or Higher Treatment Start Time - Compression Begins at 1 ZAID: 0850 Rate Set PSI / Min: 1.5 Pressure Reached: 0900 ZAID: 2.0 Decompression Begins: 1030 Treatment End Time to 1 ZAID: 1039 Total Treatment Time: 109 Symptoms Noted During [...] Wigs or Hair Pieces Removed: Yes Nail yakut cured greater than 10 hours: Yes Personal [...] Evaluation Ear Evaluation Left Ear Clear: No (wax per provider) Right Ear Clear: No (wax per provider) Left Tympanic Membrane Visible and Intact: Yes (partially visible per provider) Right Tympanic Membrane Visible and Intact: Yes (partially visible per provider) Left Color: Iridescent (per provider) Right Color: Iridescent (per provider) Left Pressure Equalization Tubes in Place: No (per provider) Right Pressure Equalization Tubes in Place: No (per provider) Left Irrigated: No (per provider) Right Irrigated: No (per provider) HBOT Physician-Lawn Mower Mechanic Documentation: Wound Examined? No. Please see weekly [...] within normal range to participate in dive. Patient scheduled to have his ears cleaned and cerumen removed on 07/23/24. Rocco Couch documented in this encounter Plan of Treatment Upcoming Encounters Date Type Department Care Team (Late st Contact Info) Description 08/24/2024 8:30 AM MERCHANDISE HANDLER Office Visit [facility] Wound Care [address] [place] [phone] 08/24/2024 11:30 AM MERCHANDISE HANDLER Office Visit Podiatry [address] [place] [phone] Angel Coombs, DPM [address] [place] [phone] 08/25/2024 8:30 AM MERCHANDISE HANDLER Office Visit [facility] Wound Care [address] [place] [address] 08/26/2024 8:30 AM MERCHANDISE HANDLER Office Visit [facility] Wound Care [address] [place] [phone] 08/27/2024 8:30 AM MERCHANDISE HANDLER Office Visit [facility] Wound Care [address] [place] [address] 08/27/2024 11:00 AM MERCHANDISE HANDLER Office Visit [facility] Wound Care [address] [place] [address] Vilma Neves MD [address] [place] [phone] 08/28/2024 8:30 AM MERCHANDISE HANDLER Office Visit [facility] Wound Care [address] [place] [address] 08/31/2024 8:30 AM MERCHANDISE HANDLER Office Visit [facility] Wound Care [address] [place] [address] 09/01/2024 8:30 AM MERCHANDISE HANDLER Office Visit [facility] Wound Care [address] [place] [address] 09/02/2024 8:30 AM MERCHANDISE HANDLER Office Visit [facility] W[facility] Care [address] [place] [address] 09/03/2024 8:30 AM MERCHANDISE HANDLER Office Visit [facility] Wound Care [address] [place] [address] 09/03/2024 11:00 AM MERCHANDISE HANDLER Office Visit [facility] W[facility] Care [address] [place] [address] Vilma Neves MD [address] [place] [address] [phone] 09/03/2024 11:00 AM MERCHANDISE HANDLER Office Visit [facility] Infectious Disease [address] [place] [address] Amairani Sigala MD [address] [place] [phone] 09/04/2024 8:30 AM MERCHANDISE HANDLER Office Visit [facility] Wound Care [address] [place] [address] 09/07/2024 8:30 AM MERCHANDISE HANDLER Office Visit [facility] Wound Care [address] [place] [address] 09/08/2024 8:30 AM MERCHANDISE HANDLER Office Visit [facility] Wound Care [address] [place] [phone] 09/09/2024 8:30 AM MERCHANDISE HANDLER Office Visit [facility] Wound Care [address] [place] [address] 130[address] 09/10/2024 8:30 AM MERCHANDISE HANDLER Office Visit [facility] Wound Care [address] [place] [address] 09/10/2024 11:20 AM MERCHANDISE HANDLER Office Visit [facility] W[facility] Care [address] [place] [address] Vilma Neves MD [address] [place] [address] [phone] 09/11/2024 8:30 AM MERCHANDISE HANDLER Office Visit [facility] Wound Care [address] [place] [phone] 09/14/2024 8:30 AM MERCHANDISE HANDLER Office Visit [facility] Wound Care [address] [place] [address] [phone] 09/15/2024 8:30 AM MERCHANDISE HANDLER Office Visit [facility] Wound Care [address] [place] [address] [phone] documented as of this encounter Procedures Procedure Name Priority Date/Time Associated Diagnosis Comments POCT PRECISION GLUCOSE Routine 07/21/2024 10:43 AM CDT POCT PRECISION GLUCOSE Routine 07/21/2024 8:35 AM CDT documented in this encounter Results * (ABNORMAL) POCT Precision glucose (07/21/2024 10:43 AM CDT) [facility] Glucose Blood, POC 166(H) 70 - 100 mg/dL 07/21/2024 10:44 AM CDT [facility] Comment: Meter ID: [id number] Capillary whole blood specimens should not be used in patients receiving intensive medical intervention/therapy because of the potential for pre-analytical collection error and specifically in patients with decreased peripheral blood flow, as it may not truly reflect the patient? s true physiological state. Examples include, but are not limited to, severe hypotension, shock, hyperosmolar-hyperglycemia (with or without ketosis), and severe dehydration. 07/21/2024 10:4 3 AM CDT 07/21/2024 10:44 AM CDT Thu Bhagat PA-C LAB POINT OF CARE TE ST DOCKED DEVICE UNSOLICITED RESULTS [facility] [address] [place] [address] * (ABNORMAL) POCT Precision glucose (07/21/2024 8:35 AM CDT) Glucose Blood, POC 244(H) 70 - 100 mg/dL 07/21/2024 8:36 AM CDT [facility] Comment: Meter ID: [id number] Capillary whole blood specimens should not be used in patients receiving intensive medical intervention/therapy because of the potential for pre-analytical collection error and specifically in patients with decreased peripheral blood flow, as it may not truly reflect the patient? s true physiological state. Examples include, but are not limited to, severe hypotension, shock, hyperosmolar-hyperglycemia (with or without ketosis), and severe dehydration. 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
--- OUTSIDE RECORDS SUMMARY | 2024-08-21 10:22 | XMS_ITS | Encounter Summary ---
Author Organization [facility] er Address [address] [place] [address] Care Team Providers Care Rn Field Name Role Phone Thu Bhagat PA-C Primary Care Provider [phone] Reason for Referral * Consultation (Urgent) - Authorized Specialty Diagnoses / Procedures Referred By Contac t Referred To Contact Otolaryngology Diagnoses Bilateral impacted cerumen Vilma Neves MD [address] [place] [address] Ear Nose Throat [address] [place] [address] Referral ID Status Reason Start Date Expiration Date Visits Requested Visits Authorized [id number] Authorized Specialty Services Required 07/17/2024 07/17/2025 1 1 Scheduling Instructions Please call the ENT [employer] desk at [phone] ext. [phone] to schedule an appointment. Bilateral cerumen impaction needs irrigation/flushing to prevent barotrauma while undergoing HBO. [place] from [place]. Reason for Visit * Reason Comments HBO * Consultation (Routine) - Authorized Specialty Diagnoses / Procedures Referred By Contac t Referred To Contact Wound Care Diagnoses Type 2 diabetes mellitus with foot ulcer Procedures Wound Care HBOT Thu Bhagat PA-C 1 [place] [phone] [facility] [address] [place] [address] Referral ID Status Reason Start Date Expiration Date V isits Requested Visits Authorized [id number] Authorized 07/02/2024 10/11/2024 99 99 Encounter Details Date Type Department Care Team (Late st Contact Info) Description 07/17/2024 8:30 AM CDT Office Visit [facility] [address] [place] [address] [place] [address] [place] [phone] Diabetic ulcer of right midfoot associated with type 2 diabetes mellitus, 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 Never 06/06/2024 [facility] Utilities Answer Date Recorded In the past 12 months has [facility] [employer], gas, oil, or water [employer] threatened to shut off services in your [...] How often do you attend chur or jew services? More than 4 times per year 06/06/2024 Do you belong to any clubs o r organizations such as latter day groups, unions, fraternal or athletic groups, or [...] Recorded Patient Health Questionnaire-2 Score 0 06/06/2024 [facility] - [...] in the past 12 m [facility], were you homeless or living [...] Sign Reading Time Taken Comments Blood Pressure 109/76 07/17/2024 10:56 AM CDT Pulse 70 07/17/2024 10:56 AM CDT Temperature 35.9 ??C (96.7 ??F) 07/17/2024 10:56 AM C DT Respiratory Rate - - Oxygen Saturation 98% 07/17/2024 10:56 AM CDT Inhaled Oxygen Concentration - - Weight - - Height - - Body Mass Index - - documented in this encounter Progress Notes * Riya Stewart RN - 07/17/2024 8:30 AM CDT HYPERBARIC OXYGEN THERAPY TREATMENT # 4 2.0 Atmospheres Absolute for 90 minutes without air-breaks Chamber: Chamber Number: [id number] Patient presented wearing off loading device to right foot, ordered dressings in place. Vitals: 07/17/24 1056 BP: 109/76 Pulse: 70 Temp: (!) 35.9 ??C (96.7 ??F) SpO2: 98% Glucose Readings Pre Capillary Blood Glucose: 195 Post Capillary Blood Glucose: 119 Blood Glucose Reference Range: 65-95 If patient diabetic, was the Glycemia Interventions Protocol ordered by the physician? : Yes Hyperbaric Monitor Indications: Diabetic Kenney Grade 3 or Higher Treatment Start Time - Compression Begins at 1 ZAID: 0854 Rate Set PSI / Min: 1 Pressure Reached: 0908 ZAID: 2.0 Decompression Begins: 1038 Treatment End Time to 1 ZAID: 1052 Total Treatment Time: 118 Symptoms Noted During Treatment: None Hyperbaric Pre-Instpection Hyperbaric Pre-Inspection Consent Obtained: Yes Is there a TCOM ordered for the patient?: Yes Patient voided/noonan secured and emptied: Yes When did the patient last eat?: 0700 Last dose of injectable or oral hypoglycemic agent: 0700 Ostomy pouch emptied and vented (if applicable): N/A All implantable devices assessed, documented, and approved: N/A Intravenous access site secured and placed: Yes (green cap removed) Valuables secured: Yes Linens are cotton: Yes Cotton Gown: Yes Glasses Removed: Yes Jewelery Removed: Yes Makeup Removed: Yes Hair Care Products Removed: Yes Wigs or Hair Pieces Removed: Yes Nail dominican cured greater than 10 hours: Yes Personal [...] Left Tympanic Membrane Visible and Intact: No (per provider) Right Tympanic Membrane Visible and Intact: No (per provider) Left Color: Iridescent (per provider) Right Color: Iridescent (per provider) Left Pressure Equalization Tubes in Place: N / A (per provider) Right Pressure Equalization Tubes in Place: N / A (per provider) Left Irrigated: No (per provider) Right Irrigated: No (per provider) Associated attestation - Vilma Neves MD - 07/18/2024 9:52 AM CDT HBOT Physician Documentation: Wound Examined? No. Please see weekly wound visit note for detailed wound findings for this corresponding week Patient Cleared for HBO? Yes Continue HBO? Yes TEED Score: Pre-Treatment bilateral cerumen impaction with plans for ENT washout-referral placed Post Treatment bilateral cerumen impaction with plans for ENT washout-referral placed PE Tubes? No Myringotomy Performed? No Breath Sounds: CTAB Other Notes: Recommend continuing with HBOT as wound is progressing well as noted in wound visit note each week documented in this encounter Plan of Treatment Upcoming Encounters Date Type Department Care Team (Late st Contact Info) Description 08/24/2024 8:30 AM SCIENTIFIC ASSOCIATE Office Visit [facility] W[facility] Care [address] [place] [phone] 08/24/2024 11:30 AM SCIENTIFIC ASSOCIATE Office Visit [facility] [address], [place] [address] Angel Coombs DPHang [address] [place] [phone] 08/25/2024 8:30 AM SCIENTIFIC ASSOCIATE Office Visit [facility] W[facility] Care [address] [place] [phone] 08/26/2024 8:30 AM SCIENTIFIC ASSOCIATE Office Visit [facility] [address] [place] [address] 08/27/2024 8:30 AM SCIENTIFIC ASSOCIATE Office Visit [facility] [address] [place] [address] 08/27/2024 11:00 AM SCIENTIFIC ASSOCIATE Office Visit [facility] [address] [place] [phone] Vilma Neves MD [address] [place] [phone] 08/28/2024 8:30 AM SCIENTIFIC ASSOCIATE Office [facility] [address] [place] [phone] 08/31/2024 8:30 AM SCIENTIFIC ASSOCIATE Office Visit [facility] [address] [place] [phone] 09/01/2024 8:30 AM SCIENTIFIC ASSOCIATE Office Visit [facility] [address] [place] [phone] 09/02/2024 8:30 AM SCIENTIFIC ASSOCIATE Office [facility] [address] [place] [address] 09/03/2024 8:30 AM SCIENTIFIC ASSOCIATE Office Visit [facility] [address] [place] [address] 09/03/2024 11:00 AM SCIENTIFIC ASSOCIATE Office Visit [facility] [address] [place] [address] Vilma Neves MD [address] [place] [phone] 09/03/2024 11:00 AM SCIENTIFIC ASSOCIATE Office [facility] Infectious Disease [address] [place] [address] Amairani Sigala MD [address] [place] [phone] 09/04/2024 8:30 AM SCIENTIFIC ASSOCIATE Office Visit [facility] [address] [place] [phone] 09/07/2024 8:30 AM SCIENTIFIC ASSOCIATE Office Visit [facility] [address] [place] [phone] 09/08/2024 8:30 AM SCIENTIFIC ASSOCIATE Office Visit [facility] Care [address] [place] [address] 09/09/2024 8:30 AM SCIENTIFIC ASSOCIATE Office Visit [facility] [address] [place] [address] 09/10/2024 8:30 AM SCIENTIFIC ASSOCIATE Office Visit [facility] Care [address] [place] [phone] 09/10/2024 11:20 AM SCIENTIFIC ASSOCIATE Office Visit [facility] [address] [place] [phone] Vilma Neves MD [address] [place] [phone] 09/11/2024 8:30 AM SCIENTIFIC ASSOCIATE Office Visit [facility] W[facility] Care [address] [place] [address] 09/14/2024 8:30 AM SCIENTIFIC ASSOCIATE Office Visit [facility] [address] [place] [address] 09/15/2024 8:30 AM SCIENTIFIC ASSOCIATE Office Visit [facility] Care [address] [place] [phone] Scheduled Referrals Name Type Priority Associated Diagnoses Order Schedule Ambulatory referral to ENT Outpatient Referral Routine Bilateral impacted cerumen Ordered: 07/17/2024 documented as of this encounter Procedures Procedure Name Priority Date/Time Associated Diagnosis Comments POCT PRECISION GLUCOSE Routine 07/17/2024 10:58 AM CDT POCT PRECISION GLUCOSE Routine 07/17/2024 8:40 AM CDT documented in this encounter Results * (ABNORMAL) POCT Precision glucose (07/17/2024 10:58 AM CDT) [facility] Glucose Blood, POC 119(H) 70 - 100 mg/dL 07/17/2024 10:59 AM CDT [facility] Comment: Meter ID: [id number] Capillary whole blood specimens should not be used in patients receiving intensive medical intervention/therapy because of the potential for pre-analytical collection error and specifically in patients with decreased peripheral blood flow, as it may not truly reflect the patient? s true physiological state. Examples include, but are not limited to, severe hypotension, shock, hyperosmolar-hyperglycemia (with or without ketosis), and severe dehydration. 07/17/2024 10:5 8 AM CDT 07/17/2024 10:59 AM CDT Vilma Neves MD LAB POINT OF CARE TE ST DOCKED DEVICE UNSOLICITED RESULTS Performing Organization Address [facility] Co de Phone Number [facility] [address] [place], [place] [phone] * (ABNORMAL) POCT Precision glucose (07/17/2024 8:40 AM CDT) Glucose Blood, POC 195(H) 70 - 100 mg/dL 07/17/2024 8:41 AM CDT [facility] Comment: Meter ID: [id number] Capillary whole blood specimens should not be used in patients receiving intensive medical intervention/therapy because of the potential for pre-analytical collection error and specifically in patients with decreased peripheral blood flow, as it may not truly reflect the patient? s true physiological state. Examples include, but are not limited to, severe hypotension, shock, hyperosmolar-hyperglycemia (with or without ketosis), and severe dehydration. 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
--- OUTSIDE RECORDS SUMMARY | 2024-08-21 10:22 | XMS_ITS | Encounter Summary ---
Author Organization [facility] er Address [address] [place] [address] Care Team Providers Care Inspector [employer] Name Role Phone Thu Bhagat PA-C Primary Care Provider Reason for Visit * Reason Comments HBO * Consultation (Routine) - Authorized Specialty Diagnoses / Procedures Referred By Contac t Referred To Contact Wound Care Diagnoses Type 2 diabetes mellitus with foot ulcer Procedures Wound Care HBOT Thu Bhagat PA-C [address] [place] [phone] [facility] W[facility] Care [address] [place] [address] Referral ID Status Reason Start Date Expiration Date V isits Requested Visits Authorized [id number] Authorized 07/02/2024 10/11/2024 99 99 Encounter Details Date Type Department Care Team (Late st Contact Info) Description 07/16/2024 8:30 AM CDT Office Visit [facility] [address] [place] [phone] [place] [address] [place] [phone] Diabetic ulcer of right midfoot associated [...] from your doctor or pharmacy? Never 06/06/2024 [facility] Utilities Answer Date Recorded In the past 12 months has [employer], gas, oil, or water [email or web address] threatened to shut off services in your [...] week 06/06/2024 How often do you attend [facility] or congregational services? More than 4 times per year [...] Recorded Patient Health Questionnaire-2 Score 0 06/06/2024 [facility] - Occupational Stress [...] Sign Reading Time Taken Comments Blood Pressure 115/81 07/16/2024 10:58 AM CDT Pulse 75 07/16/2024 10:58 AM CDT Temperature 36.2 ??C (97.2 ??F) 07/16/2024 10:58 AM C DT Respiratory Rate 18 07/16/2024 10:58 AM CDT Oxygen Saturation - - Inhaled Oxygen Concentration - - Weight - - Height - - Body Mass Index - - documented in this encounter Patient Instructions * Patient Instructions* Valeria Tobar RN - 07/16/2024 8:30 AM CDT Return in 1 day for your next HBO treatment. documented in this encounter Progress Notes * Valeria Tobar RN - 07/16/2024 8:30 AM CDT HYPERBARIC OXYGEN THERAPY TREATMENT # 3 2 ZAID for 90 minutes with no air breaks. Provider in wound clinic at time of treatment. Chamber: Chamber Number: [id number] Patient presented wearing off loading device to right foot, ordered dressings in place. TCOM completed during today's treatment. Vitals: 07/16/24 1058 BP: 115/81 Pulse: 75 Resp: 18 Temp: 36.2 ??C (97.2 ??F) Glucose Readings Pre Capillary Blood Glucose: 140 (1/2 of an Ensure) Post Capillary Blood Glucose: 131 Blood Glucose Reference Range: 65-95 If patient diabetic, was the Glycemia Interventions Protocol ordered by the physician? : Yes Hyperbaric Monitor Indications: Diabetic Kenney Grade 3 or Higher Treatment Start Time - Compression Begins at 1 ZAID: 0843 Rate Set PSI / Min: 1 Pressure Reached: 0856 ZAID: 2.0 Decompression Begins: 1026 Treatment End Time to 1 ZAID: 1040 Total Treatment Time: 117 Symptoms Noted During Treatment: None Hyperbaric Pre-Instpection Hyperbaric Pre-Inspection Consent Obtained: Yes Is there a TCOM ordered for the patient?: Yes Patient voided/noonan secured and emptied: Yes When did the patient last eat?: 0530 Ostomy pouch emptied and vented (if applicable): [...] Associated attestation - Vilma Neves MD - 07/16/2024 2:27 PM CDT HBOT Physician Documentation: Wound Examined? No. Please see weekly wound visit note for detailed wound findings for this corresponding week Patient Cleared for HBO? Yes Continue HBO? Yes TEED Score: Pre-Treatment bilateral cerumen Post Treatment bilateral cerumen PE Tubes? No Myringotomy Performed? No Breath Sounds: CTAB Other Notes: Recommend continuing with HBOT as wound is progressing well as noted in wound visit note each week Patient called PCP for ENT referral yesterday 07/15/2024. Awaiting a callback in order to see ENT for bilateral ear cleaning. * Vilma Neves MD - 07/16/2024 8:30 AM CDT TCOM results Date of service 07/16/2024 1 lead in chamber TCOM location: Right dorsal foot ICD 10 code: E11.621 SpO2: 92 Patient supine? Yes ` Smoker? No Edematous skin? No Baseline 0-15 min 15-30 min 30-45 min 45-60 min 60-75 min 75-90 min mmHG 57 501 [phone] 827 % -- 780% 1085% 1269% 1323% 1359% 1354% Interpretation of results and clinical significance: TCOM is measured in periwound area. If SpO2 is >= 92%, it can be assumed that arterial hypoxemiais not present. If 100% O2 challenge for 10 minutes is conducted, TCOM increases, with an increase of more than 100mmHg, HBOT will be a successful adjuvant therapy to assist with wound healing. Since the start TC PO2 was 57 mmHg and the end was 827 mmHg, HBO will successfully assist with wound healing and thereby preventing further morbidity and mortality including limb salvage promotion decreasing permanent disability. documented in this encounter Plan of Treatment Upcoming Encounters Date Type Department Care Team (Late st Contact Info) Description 08/24/2024 8:30 AM SHEET TURNER Office Visit [facility] Wound Care [address] [place] [address] 08/24/2024 11:30 AM SHEET TURNER Office Visit Podiatry [address] [place] [address] Angel Coombs, DPM [address] [place] [phone] 08/25/2024 8:30 AM SHEET TURNER Office Visit [facility] W[facility] [address] [place] [phone] 08/26/2024 8:30 AM SHEET TURNER Office Visit [facility] W[facility] [address] [place] [address] 08/27/2024 8:30 AM SHEET TURNER Office Visit [facility] [address] [place] [phone] 08/27/2024 11:00 AM SHEET TURNER Office Visit [facility] [address] [place] [address] Vilma Neves MD [address] [place] [phone] 08/28/2024 8:30 AM SHEET TURNER Office Visit [facility] [address] [place] [address] 08/31/2024 8:30 AM SHEET TURNER Office Visit [facility] W[facility] [address] [place] [address] 09/01/2024 8:30 AM SHEET TURNER Office Visit [facility] [address] [place] [address] 09/02/2024 8:30 AM SHEET TURNER Office Visit [facility] W[facility] [address] [place] [phone] 09/03/2024 8:30 AM SHEET TURNER Office Visit [facility] W[facility] [address] [place] [phone] 09/03/2024 11:00 AM SHEET TURNER Office Visit [facility] [address] [place] [address] Vilma Neves MD [address] [place] [phone] 09/03/2024 11:00 AM SHEET TURNER Office Visit [facility] Infectious Disease [address] [place] [address] Amairani Sigala MD [address] [place] [phone] 09/04/2024 8:30 AM SHEET TURNER Office Visit [facility] Wound Care [address] [place] [address] 09/07/2024 8:30 AM SHEET TURNER Office Visit [facility] W[facility] Care [address] [place] [address] 09/08/2024 8:30 AM SHEET TURNER Office Visit [facility] Wound Care [address] [place] [phone] 09/09/2024 8:30 AM SHEET TURNER Office Visit [facility] Wound Care [address] [place] [address] 09/10/2024 8:30 AM SHEET TURNER Office Visit [facility] Wound Care [address] [place] [address] 09/10/2024 11:20 AM SHEET TURNER Office Visit [facility] W[facility] Care [address] [place] [address] Vilma Neves MD [address] [place] [phone] 09/11/2024 8:30 AM SHEET TURNER Office Visit [facility] Wound Care [address] [place] [address] 09/14/2024 8:30 AM SHEET TURNER Office Visit [facility] Wound Care [address] [place] [phone] 09/15/2024 8:30 AM SHEET TURNER Office Visit [facility] Wound Care [address] [place] [phone] documented as of this encounter Procedures Procedure Name Priority Date/Time Associated Diagnosis Comments POCT PRECISION GLUCOSE Routine 07/16/2024 10:44 AM CDT POCT PRECISION GLUCOSE Routine 07/16/2024 8:22 AM CDT documented in this encounter Results * (ABNORMAL) POCT Precision glucose (07/16/2024 10:44 AM CDT) Glucose Blood, POC 131(H) 70 - 100 mg/dL 07/16/2024 10:48 AM CDT [facility] Comment: Meter ID: [id number] Capillary whole blood specimens should not be used in patients receiving intensive medical intervention/therapy because of the potential for pre-analytical collection error and specifically in patients with decreased peripheral blood flow, as it may not truly reflect the patient? s true physiological state. Examples include, but are not limited to, severe hypotension, shock, hyperosmolar-hyperglycemia (with or without ketosis), and severe dehydration. 07/16/2024 10:4 4 AM CDT 07/16/2024 10:48 AM CDT Vilma Neves MD LAB POINT OF CARE TE ST DOCKED DEVICE UNSOLICITED RESULTS [facility] [address] [place] [address] * (ABNORMAL) POCT Precision glucose (07/16/2024 8:22 AM CDT) Glucose Blood, POC 140(H) 70 - 100 mg/dL 07/16/2024 8:23 AM CDT [facility] Comment: Meter ID: [id number] Capillary whole blood specimens should not be used in patients receiving intensive medical intervention/therapy because of the potential for pre-analytical collection error and specifically in patients with decreased peripheral blood flow, as it may not truly reflect the patient? s true physiological state. Examples include, but are not limited to, severe hypotension, shock, hyperosmolar-hyperglycemia (with or without ketosis), and severe dehydration. 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
--- OUTSIDE RECORDS SUMMARY | 2024-08-21 10:22 | XMS_ITS | Encounter Summary ---
Author Organization [facility] er Address [address] [place] [id number] Care Team Providers Care Assistant Clinical Nurse Manager Name Role Phone Thu Bhagat PA-C Primary Care Provider [phone] Reason for Visit * Consultation (Routine) - Authorized Specialty Diagnoses / Procedures Referred By Contac t Referred To Contact Radiology Diagnoses Non-healing surgical wound, subsequent encounter Procedures US LOWER EXTREMITY ART DOPPLER BILATERAL LIMITED (ANNA'S) US LOWER EXTREMITY ART DOPPLER BILATERAL LIMITED Rocco Couch PA-C [address] [place] [address] [facility] [address] [place] [address] Referral ID Status Reason Start Date Expiration Date V isits Requested Visits Authorized [id number] Authorized 07/20/2024 12/15/2024 1 1 Encounter Details Date Type Department Care Team (Latest Contact Info) Description 07/20/2024 6:44 AM CDT - 07/20/2024 11:59 PM CDT Hospital En[place] [facility] [address] [place] [address] Discharge Disposition: Home or Self Care Social History Tobacco Use Types Packs/Day Years [...] from your doctor or pharmacy? Never 06/06/2024 [facility] Utilities Answer Date Recorded In the past 12 months has e [employer], gas, oil, or water [employer] threatened to shut off services in your [...] How often do you attend chur or religion services? More than 4 times per year [...] Questionnaire-2 Score 0 06/06/2024 [facility] - Occupational Stress [...] in the past 12 m [facility], were you homeless or living in [...] on file documented as of this encounter Medications at Time of Discharge Medication Sig Dispensed Refills Start Date End Date apixaban (ELIQUIS) 5 MG tablet Take 1 tablet (5 mg total) by mouth 2 times daily aspirin EC 81 MG EC tablet Take 1 tablet (81 mg total) by mouth daily atorvastatin (LIPITOR) 80 MG tablet Take 0.5 tablets (40 mg total) by mouth 1 (one) time each day 04/27/2024 carbamide peroxide (DEBROX) 6.5 % otic solution Administer into affected ear(s) 07/15/2024 carvedilol (COREG) 12.5 MG tablet Take 1 tablet (12.5 mg total) by mouth 2 (two) times a day 10/01/2023 cyanocobalamin (VITAMIN B-12) 1000 MCG tablet Take 1 tablet (1,000 mcg total) by mouth 1 (one) time each day Empagliflozin 25 MG tablet Take 25 mg by mouth 1 (one) time each day 10/28/2023 ERTAPENEM SODIUM IV Infuse into a venous catheter 1 GM IV Every Day 06/24/2024 glipiZIDE (GLUCOTROL XL) 10 MG 24 hr tablet Take 2 tablets (20 mg total) by mouth 1 (one) time each day Do not crush, chew, or split. lisinopril (ZESTRIL) 10 MG tablet Take 2 tablets (20 mg total) by mouth 1 (one) time each day Magnesium Oxide 420 MG tablet Take 1 tablet by mouth 2 (two) times a day metFORMIN (GLUCOPHAGE) 1000 MG tablet Take 1 tablet (1,000 mg total) by mouth 2 (two) times a day with meals pioglitazone (ACTOS) 45 MG tablet Take 1 tablet (45 mg total) by mouth 1 (one) time each day 10/28/2023 UNABLE TO FIND Med Name: Neurvive supplement Vitamin D, Cholecalciferol, 25 MCG (1000 UT) tablet Take 1,000 Units by mouth 1 (one) time each day documented as of this encounter Plan of Treatment Upcoming Encounters Date Type Department Care Team (Late st Contact Info) Description 08/24/2024 8:30 AM TESTING AND REGULATING CHIEF Office [place] [facility] [address] [place] [phone] 08/24/2024 11:30 AM TESTING AND REGULATING CHIEF Office Visit [facility] [address] [place] [address] Angel Coombs, DPM [address] [place] [phone] 08/25/2024 8:30 AM TESTING AND REGULATING CHIEF Office [place] [facility] [address] [place] [address] 08/26/2024 8:30 AM TESTING AND REGULATING CHIEF Office [place] [facility] [address] [place] [address] 08/27/2024 8:30 AM TESTING AND REGULATING CHIEF Office [place] [facility] [address] [place] [address] 08/27/2024 11:00 AM TESTING AND REGULATING CHIEF Office [place] [facility] [address] [place] [address] Vilma Neves MD [address] [place] [phone] 08/28/2024 8:30 AM TESTING AND REGULATING CHIEF [facility] [address] [place] [phone] 08/31/2024 8:30 AM TESTING AND REGULATING CHIEF [facility] Visit [facility] [address] [place] [phone] 09/01/2024 8:30 AM TESTING AND REGULATING CHIEF Office [place] [facility] [address] [place] [address] 09/02/2024 8:30 AM TESTING AND REGULATING CHIEF [facility] Visit [facility] [address] [place] [phone] 09/03/2024 8:30 AM TESTING AND REGULATING CHIEF Office [place] [facility] [address] [place] [phone] 09/03/2024 11:00 AM TESTING AND REGULATING CHIEF Office [place] [facility] [address] [place] [phone] Vilma Neves MD [address] [place] [phone] 09/03/2024 11:00 AM TESTING AND REGULATING CHIEF Office [place] [facility] [address] [place] [phone] Amairani Sigala MD [address] [place] [phone] 09/04/2024 8:30 AM TESTING AND REGULATING CHIEF Office [place] [facility] [address] [place] [address] 09/07/2024 8:30 AM TESTING AND REGULATING CHIEF Office [place] [facility] [address] [place] [address] 09/08/2024 8:30 AM TESTING AND REGULATING CHIEF Office [place] [facility] [address] [place] [address] 09/09/2024 8:30 AM TESTING AND REGULATING CHIEF Office [place] [facility] [address] [place] [phone] 09/10/2024 8:30 AM TESTING AND REGULATING CHIEF Office [place] [facility] [address] [place] [phone] 09/10/2024 11:20 AM TESTING AND REGULATING CHIEF Office [place] [facility] [address] [place] [phone] Vilma Neves MD [address] [place] [phone] 09/11/2024 8:30 AM TESTING AND REGULATING CHIEF Office [place] [facility] [address] [place] [phone] 09/14/2024 8:30 AM TESTING AND REGULATING CHIEF Office [place] [facility] [address] [place] [phone] 09/15/2024 8:30 AM TESTING AND REGULATING CHIEF Office Visit [facility] [address] [place] [address] documented as of this encounter Procedures Procedure Name Priority Date/Time Associated Diagnosis Comments US LOWER EXTREMITY ART DOPPLER BILATERAL LIMITED (ANNA'S) Routine 07/20/2024 7:49 AM CDT Non-healing surgical wound, subsequent encounter documented in this encounter Results * Ultrasound lower extremity art doppler bilateral [...] disease. Rocco Couch PA-C IMG US PROCEDURES documented in this encounter Visit Diagnoses Not on filedocumented in this encounter Care Teams Assistant Clinical Nurse Manager Relationship Specialty Start Date End Date Thu Bhagat PA-C [address] [place] [phone] PCP - General 11/26/22 documented as of this encounter
--- OUTSIDE RECORDS SUMMARY | 2024-08-21 10:22 | XMS_ITS | Encounter Summary ---
Author Organization [facility] er Address [address] [place] [phone] Care Team Providers Care Road Grader Name Role Phone Thu Bhagat PA-C Primary Care Provider Encounter Details Date Type Department Care Team (Late st Contact Info) Description 07/14/2024 Clinical Support [facility] [address] [place] [phone] Jasiel Rust, PharmD [address] [place] [phone] Social History Tobacco Use Types Packs/Day Years [...] from your doctor or pharmacy? Never 06/06/2024 [facility] Utilities Answer Date Recorded In the past 12 months has e [employer], gas, oil, or water [employer] threatened to shut off services in your [...] How often do you attend chur or caodaism services? More than 4 times per year 06/06/2024 Do you belong to any clubs o r organizations such as jew groups, unions, fraternal or athletic groups, or [...] Recorded Patient Health Questionnaire-2 Score 0 06/06/2024 [facility] - Occupational Stress [...] any time in the past 12 m [facility], were you homeless or living in a snf (including now)? No 06/06/2024 Interpersonal Safety Questionnaire [...] as of this encounter Progress Notes * Jasiel Rust, PharmD - 07/14/2024 4:31 PM CDT Images from the original note were not included. OPAT Team Note This patient has been enrolled in outpatient antimicrobial therapy (OPAT) and is being managed by the OPAT team. Patient: Francisco Javier Silva Antonieta OPAT Enrollment Status: Home Infusion OPAT Labs Due: Weekly CBC, CMP, OPAT End Date: 07/21/2024, tentative stop date Micro Results: Microbiology Results No results found for the last 168 hours. Lab Results: Results Collected Updated Procedure Result Status 07/14/2024 14007/14/2024 1503 Comprehensive metabolic panel [[id number]] (Abnormal) Blood, Venous Final result Component Value [...] Unknown 07/14/2024 14007/14/2024 1453 CBC auto differential [[id number]] Blood, Venous Final result Component Value Units [...] 0.03 K/uL 07/10/2024 1202 07/10/2024 1540 Prealbumin [[id number]] Blood, Venous Final result Component Value Units Prealbumin 23.7 mg/dL 07/07/2024 1411 07/07/2024 1537 Comprehensive metabolic panel [[id number]] (Abnormal) Blood, Venous Final result Component Value [...] 07/07/2024 1411 07/07/2024 1432 CBC auto differential [[id number]] Blood, Venous Final result Component Value Units [...] 06/30/2024 1356 06/30/2024 1622 Comprehensive metabolic panel [[id number]] (Abnormal) Blood, Venous Final result Component Value [...] 06/30/2024 1356 06/30/2024 1409 CBC auto differential [[id number]] (Abnormal) Blood, Venous Final result Component Value [...] 06/23/2024 1253 06/23/2024 1332 Comprehensive metabolic panel [[id number]] (Abnormal) Blood, Venous Final result Component Value [...] 06/23/2024 1253 06/23/2024 1302 CBC auto differential [[id number]] (Abnormal) Blood, Venous Final result Component Value [...] 06/17/2024 0550 06/17/2024 0635 Basic metabolic panel [[id number]] (Abnormal) Blood, Venous Final result Component Value Units Sodium 136 mEq/L Potassium 4.1 mEq/L Chloride 101 mEq/L CO2 32 mmol/L Creatinine 1.14 mg/dL BUN 22 mg/dL Glucose 135 mg/dL Calcium, Total,S 8.9 mg/dL Anion Gap 3 Fasting? Yes 06/17/2024 0550 06/17/2024 0618 CBC ([facility] [employer]) [[id number]] (Abnormal) Blood, Venous Final result Component Value Units WBC 10.5 K/uL RBC 5.18 M/uL Hemoglobin 15.2 g/dL Hematocrit 47.8 % Platelets 376 K/uL MCV 92.3 fL MCH 29.3 pg MCHC 31.8 g/dL RDW 14.6 % NRBC %, Automated 0 % NRBC Absolute, Autmated 0.00 K/uL 06/16/2024 0608 06/16/2024 0826 Basic metabolic panel [[id number]] (Abnormal) Blood, Venous Final result Component Value Units Sodium 136 mEq/L Potassium 4.3 mEq/L Chloride 100 mEq/L CO2 30 mmol/L Creatinine 1.13 mg/dL BUN 20 mg/dL Glucose 116 mg/dL Calcium, Total,S 9.1 mg/dL Anion Gap 6 Fasting? Unknown 06/16/2024 0608 06/16/2024 0652 CBC ([employer]) [[id number]] Blood, Venous Final result Component Value Units WBC 10.2 K/uL RBC 5.36 M/uL Hemoglobin 15.9 g/dL Hematocrit 48.9 % Platelets 369 K/uL MCV 91.2 fL MCH 29.7 pg MCHC 32.5 g/dL RDW 14.7 % NRBC %, Automated 0 % NRBC Absolute, Autmated 0.00 K/uL 06/15/2024 0600 06/15/2024 0617 Basic metabolic panel [[id number]] (Abnormal) Blood, Venous Final result Component Value Units Sodium 136 mEq/L Potassium 4.0 mEq/L Chloride 100 mEq/L CO2 30 mmol/L Creatinine 1.05 mg/dL BUN 17 mg/dL Glucose 117 mg/dL Calcium, Total,S 8.8 mg/dL Anion Gap 6 Fasting? Yes 06/15/2024 0600 06/15/2024 0606 CBC ([facility]) [[id number]] (Abnormal) Blood, Venous Final result Component Value Units WBC 11.5 K/uL RBC 5.04 M/uL Hemoglobin 14.9 g/dL Hematocrit 46.2 % Platelets 358 K/uL MCV 91.7 fL MCH 29.6 pg MCHC 32.3 g/dL RDW 14.9 % NRBC %, Automated 0 % NRBC Absolute, Autmated 0.00 K/uL 06/14/2024 0545 06/14/2024 0628 Basic metabolic panel [[id number]] (Abnormal) Blood, Venous Final result Component Value Units Sodium 138 mEq/L Potassium 4.2 mEq/L Chloride 101 mEq/L CO2 31 mmol/L Creatinine 1.03 mg/dL BUN 20 mg/dL Glucose 142 mg/dL Calcium, Total,S 8.9 mg/dL Anion Gap 6 Fasting? Yes 06/14/2024 0545 06/14/2024 0621 CBC ([facility]) [[id number]] (Abnormal) Blood, Venous Final result Component Value Units WBC 12.1 K/uL RBC 5.04 M/uL Hemoglobin 15.1 g/dL Hematocrit 47.3 % Platelets 396 K/uL MCV 93.8 fL MCH 30.0 pg MCHC 31.9 g/dL RDW 15.2 % NRBC %, Automated 0 % NRBC Absolute, Autmated 0.00 K/uL 06/13/2024 0500 06/13/2024 0548 Basic metabolic panel [[id number]] (Abnormal) Blood, Venous Final result Component Value Units Sodium 135 mEq/L Potassium 4.0 mEq/L Chloride 102 mEq/L CO2 29 mmol/L Creatinine 1.21 mg/dL BUN 26 mg/dL Glucose 188 mg/dL Calcium, Total,S 8.7 mg/dL Anion Gap 4 Fasting? Yes 06/13/2024 0500 06/13/2024 0533 CBC ([facility]) [[id number]] (Abnormal) Blood, Venous Final result Component Value Units WBC 16.2 K/uL RBC 5.00 M/uL Hemoglobin 14.8 g/dL Hematocrit 46.7 % Platelets 382 K/uL MCV 93.4 fL MCH 29.6 pg MCHC 31.7 g/dL RDW 15.2 % NRBC %, Automated 0 % NRBC Absolute, Autmated 0.00 K/uL 06/12/2024 0540 06/12/2024 0615 Basic metabolic panel [[id number]] (Abnormal) Blood, Venous Final result Component Value Units Sodium 137 mEq/L Potassium 4.2 mEq/L Chloride 103 mEq/L CO2 29 mmol/L Creatinine 1.13 mg/dL BUN 25 mg/dL Glucose 172 mg/dL Calcium, Total,S 9.2 mg/dL Anion Gap 5 Fasting? Yes 06/12/2024 0540 06/12/2024 0559 CBC ([facility] [employer]) [[id number]] (Abnormal) Blood, Venous Final result Component Value Units WBC 14.4 K/uL RBC 5.22 M/uL Hemoglobin 15.5 g/dL Hematocrit 48.2 % Platelets 396 K/uL MCV 92.3 fL MCH 29.7 pg MCHC 32.2 g/dL RDW 15.1 % NRBC %, Automated 0 % NRBC Absolute, Autmated 0.00 K/uL 06/11/2024 0610 06/11/2024 0710 Basic metabolic panel [[id number]] (Abnormal) Blood, Venous Final result Component Value Units Sodium 138 mEq/L Potassium 4.2 mEq/L Chloride 104 mEq/L CO2 25 mmol/L Creatinine 1.20 mg/dL BUN 24 mg/dL Glucose 173 mg/dL Calcium, Total,S 9.5 mg/dL Anion Gap 9 Fasting? Yes 06/11/2024 0610 06/11/2024 0653 CBC ([facility]) [[id number]] (Abnormal) Blood, Venous Final result Component Value Units WBC 14.5 K/uL RBC 5.09 M/uL Hemoglobin 15.3 g/dL Hematocrit 46.8 % Platelets 389 K/uL MCV 91.9 fL MCH 30.1 pg MCHC 32.7 g/dL RDW 15.3 % NRBC %, Automated 0 % NRBC Absolute, Autmated 0.00 K/uL 06/10/2024 0554 06/10/2024 0613 Basic metabolic panel [[id number]] (Abnormal) Blood, Venous Final result Component Value Units Sodium 138 mEq/L Potassium 4.2 mEq/L Chloride 107 mEq/L CO2 24 mmol/L Creatinine 1.23 mg/dL BUN 24 mg/dL Glucose 139 mg/dL Calcium, Total,S 9.3 mg/dL Anion Gap 7 Fasting? Yes 06/10/2024 0554 06/10/2024 0607 CBC ([facility]) [[id number]] (Abnormal) Blood, Venous Final result Component Value Units WBC 15.2 K/uL RBC 5.00 M/uL Hemoglobin 15.2 g/dL Hematocrit 47.1 % Platelets 347 K/uL MCV 94.2 fL MCH 30.4 pg MCHC 32.3 g/dL RDW 15.6 % NRBC %, Automated 0 % NRBC Absolute, Autmated 0.00 K/uL 06/09/2024 1138 06/09/2024 1414 Vancomycin [[id number]] Blood, Venous Final result Component Value Units Vancomycin 22.9 mcg/mL Last Dose Date 06/09/2024 Last Dose Time 1010 AM 06/09/2024 0606/09/2024 0649 Basic metabolic panel [[id number]] (Abnormal) Blood, Venous Final result Component Value Units Sodium 137 mEq/L Potassium 4.2 mEq/L Chloride 108 mEq/L CO2 24 mmol/L Creatinine 1.21 mg/dL BUN 29 mg/dL Glucose 113 mg/dL Calcium, Total,S 9.2 mg/dL Anion Gap 5 Fasting? Yes 06/09/2024 0605 06/09/2024 0637 CBC ([facility]) [[id number]] (Abnormal) Blood, Venous Final result Component Value Units WBC 13.8 K/uL RBC 5.05 M/uL Hemoglobin 14.9 g/dL Hematocrit 47.0 % Platelets 334 K/uL MCV 93.1 fL MCH 29.5 pg MCHC 31.7 g/dL RDW 15.4 % NRBC %, Automated 0 % NRBC Absolute, Autmated 0.00 K/uL 06/08/2024 0605 06/08/2024 0707 Basic metabolic panel [[id number]] (Abnormal) Blood, Venous Final result Component Value Units Sodium 138 mEq/L Potassium 3.9 mEq/L Chloride 109 mEq/L CO2 21 mmol/L Creatinine 1.33 mg/dL BUN 36 mg/dL Glucose 84 mg/dL Calcium, Total,S 8.9 mg/dL Anion Gap 8 Fasting? Yes 06/08/2024 0605 06/08/2024 0658 CBC ([facility]) [[id number]] (Abnormal) Blood, Venous Final result Component Value Units WBC 14.2 K/uL RBC 4.80 M/uL Hemoglobin 14.5 g/dL Hematocrit 44.6 % Platelets 298 K/uL MCV 92.9 fL MCH 30.2 pg MCHC 32.5 g/dL RDW 15.1 % NRBC %, Automated 0 % NRBC Absolute, Autmated 0.00 K/uL 06/06/2024 1000 06/08/2024 0229 Hemoglobin A1c [[id number]] (Abnormal) Blood, Venous Final result Component Value Units Hemoglobin A1C 9.0 % A1C 06/07/2024 0513 06/07/2024 0702 Vancomycin [[id number]] Blood, Venous Final result Component Value Units Vancomycin 9.6 mcg/mL Last Dose Date 06/06/2024 Last Dose Time 1040 06/07/2024 0513 06/07/2024 0546 Basic metabolic panel [[id number]] (Abnormal) Blood, Venous Final result Component Value Units Sodium 138 mEq/L Potassium 4.0 mEq/L Chloride 107 mEq/L CO2 22 mmol/L Creatinine 1.81 mg/dL BUN 55 mg/dL Glucose 125 mg/dL Calcium, Total,S 9.1 mg/dL Anion Gap 9 Fasting? Yes 06/07/2024 0513 06/07/2024 0539 CBC ([facility]) [[id number]] (Abnormal) Blood, Venous Final result Component Value Units WBC 16.4 K/uL RBC 4.95 M/uL Hemoglobin 14.8 g/dL Hematocrit 45.4 % Platelets 281 K/uL MCV 91.7 fL MCH 29.9 pg MCHC 32.6 g/dL RDW 15.1 % NRBC %, Automated 0 % NRBC Absolute, Autmated 0.00 K/uL 06/06/2024 1000 06/06/2024 1119 Procalcitonin [[id number]] (Abnormal) Blood, Venous Final result Component Value Units Procalcitonin 1.34 ng/mL 06/06/2024 0955 06/06/2024 1034 Covid-19, Gutierrez ID Now, PCR symptomatic [[id number]] Swab from Nasal Final result Component Value Covid Source Nasal Covid-19, ID Now PCR NEGATIVE 06/06/2024 1000 06/06/2024 1032 C-reactive protein [[id number]] (Abnormal) Blood, Venous Final result Component Value Units CRP >320.0 mg/L 06/06/2024 1000 06/06/2024 1030 CBC auto differential [[id number]] (Abnormal) Blood, Venous Final result Component Value Units WBC 21.3 K/uL RBC 5.56 M/uL Hemoglobin 16.7 g/dL Hematocrit 51.3 % Platelets 302 K/uL MCV 92.3 fL MCH 30.0 pg MCHC 32.6 g/dL RDW 14.7 % NRBC %, Automated 0 % NRBC Absolute, Autmated 0.00 K/uL Neutrophils 91.0 % Absolute Neutrophils 19.4 K/uL Lymphocytes % 3.0 % Absolute Lymphocytes 0.6 K/uL Monocytes % 5.0 % Monocytes Absolute 1.1 K/uL Eosinophils 1.0 % Absolute Eosinophils 0.2 K/uL Basophils 0.0 % Absolute Basophils 0.0 K/uL Immature Leukocytes 0.0 % Immature Leukocytes Absolute 0.00 K/uL 06/06/2024 1000 06/06/2024 1030 Morphology [[id number]] Final result Component Value Slide Review PERFORMED RBC Morphology NORMAL PLT Morphology ADEQUATE 06/06/2024 1000 06/06/2024 1028 Basic metabolic panel [[id number]] (Abnormal) Blood, Venous Final result Component Value Units Sodium 134 mEq/L Potassium 4.5 mEq/L Chloride 98 mEq/L CO2 24 mmol/L Creatinine 2.61 mg/dL BUN 78 mg/dL Glucose 254 mg/dL Calcium, Total,S 9.6 mg/dL Anion Gap 12 Fasting? Unknown 06/06/2024 1000 06/06/2024 1028 Magnesium [[id number]] (Abnormal) Blood, Venous Final result Component Value Units Magnesium 2.5 mg/dL 06/06/2024 1000 06/06/2024 1020 Lactate, plasma [[id number]] Blood, Venous Final result Component Value Units Lactate 1.3 mmol/L 06/06/2024 1000 06/06/2024 1017 APTT [[id number]] (Abnormal) Blood, Venous Final result Component Value Units aPTT 40 seconds 06/06/2024 1000 06/06/2024 1017 Protime-INR [[id number]] (Abnormal) Blood, Venous Final result Component Value Units Protime 19.0 seconds INR 1.6 06/06/2024 1000 06/06/2024 1014 Blood gas, venous [[id number]] Blood, Venous Final result Component Value Units pH, Jorge 7.37 pCO2, Jorge 44 mm Hg HCO3, Venous 25.4 mmol/L Base Excess/Deficit Venous -0.2 mmol/L Current Indication: Other (Comment) Abscess in diabetic foot infection Overall Recommendation: The patient is currently taking Ertapenem . Per antimicrobial stewardship guidelines, pharmacy recommends Francisco Javier Fung continue with current Therapy. Pharmacy took the following actions: No changes made Additional Recommendations: Continue to watch Tbili, up to 1.6 from 1.5 previous labs. All other labs WNL. Creatinine decreased to 1.12 WBC decreased to 7.0 Spoke to Jazmine at home infusion company, [facility], to confirm extending tentative stop date of 07/21/24, and provide verbal order to extend antibiotic order thru that date. Patient has ID and WC appointments before scheduled to be at Infusion center at 2 PM. Submitted by: Jasiel Rust, PharmD documented in this encounter Plan of Treatment Upcoming Encounters Date Type Department Care Team (Late st Contact Info) Description 08/24/2024 8:30 AM APARTMENT MAINTENANCE TECHNICIAN Office Visit [facility] [address] [place] [phone] 08/24/2024 11:30 AM APARTMENT MAINTENANCE TECHNICIAN Office Visit [facility] [address] [place] [phone] Angel Coombs DPM [address] [place] [address] [phone] 08/25/2024 8:30 AM APARTMENT MAINTENANCE TECHNICIAN Office Visit [facility] [address] [place] [phone] 08/26/2024 8:30 AM APARTMENT MAINTENANCE TECHNICIAN Office Visit [facility] [address] [place] [phone] 08/27/2024 8:30 AM APARTMENT MAINTENANCE TECHNICIAN Office Visit [facility] [address] [place] [phone] 08/27/2024 11:00 AM APARTMENT MAINTENANCE TECHNICIAN Office Visit [facility] [address] [place] [phone] [place] [address] [place] [phone] 08/28/2024 8:30 AM APARTMENT MAINTENANCE TECHNICIAN Office Visit [facility] [address] [place] [phone] 08/31/2024 8:30 AM APARTMENT MAINTENANCE TECHNICIAN Office Visit [facility] [address] [place] [phone] 09/01/2024 8:30 AM APARTMENT MAINTENANCE TECHNICIAN Office Visit [facility] [address] [place] [phone] 09/02/2024 8:30 AM APARTMENT MAINTENANCE TECHNICIAN Office Visit [facility] [address] [place] [phone] 09/03/2024 8:30 AM APARTMENT MAINTENANCE TECHNICIAN Office Visit [facility] [address] [place] [phone] 09/03/2024 11:00 AM APARTMENT MAINTENANCE TECHNICIAN Office Visit [facility] [address] [place] [phone] Vilma Neves MD [address] [place] [address] [phone] 09/03/2024 11:00 AM APARTMENT MAINTENANCE TECHNICIAN Office Visit [facility] [address] [place] [phone] Amairani Sigala MD [address] [place] [phone] 09/04/2024 8:30 AM APARTMENT MAINTENANCE TECHNICIAN Office Visit [facility] [address] [place] [phone] 09/07/2024 8:30 AM APARTMENT MAINTENANCE TECHNICIAN Office Visit [facility] [address] [place] [phone] 09/08/2024 8:30 AM APARTMENT MAINTENANCE TECHNICIAN Office Visit [facility] [address] [place] [phone] 09/09/2024 8:30 AM APARTMENT MAINTENANCE TECHNICIAN Office Visit [facility] [address] [place] [phone] 09/10/2024 8:30 AM APARTMENT MAINTENANCE TECHNICIAN Office Visit [facility] [address] [place] [phone] 09/10/2024 11:20 AM APARTMENT MAINTENANCE TECHNICIAN Office Visit [facility] [address] [place] [phone] [place] [address] [place] [phone] 09/11/2024 8:30 AM APARTMENT MAINTENANCE TECHNICIAN Office Visit [facility] [address] [place] [phone] 09/14/2024 8:30 AM APARTMENT MAINTENANCE TECHNICIAN Office Visit [facility] [address] [place] [phone] 09/15/2024 8:30 AM APARTMENT MAINTENANCE TECHNICIAN Office Visit [facility] [address] [place] [phone] documented as of this encounter Visit Diagnoses Not on filedocumented in this encounter Care Teams Road Grader Relationship Specialty Start Date End Date Thu Bhagat PA-C [address] [place] [phone] PCP - General 11/26/22 documented as of this encounter
--- OUTSIDE RECORDS SUMMARY | 2024-08-21 10:22 | XMS_ITS | Encounter Summary ---
Author Organization [facility] er Address [address] [place] [address] Care Team Providers Care Reception Agent Name Role Phone Thu Bhagat PA-C Primary Care Provider Reason for Visit * Reason Comments Follow-up Right foot infection * Consultation (Routine) - Authorized Specialty Diagnoses / Procedures Referred By Kaley t Referred To Contact Infectious Diseases Diagnoses Cellulitis, unspecified Procedures Infectious Disease Thu Bhagat PA-C [address] [place] [address] [facility] Infectious Diseas [address] [place] [address] Referral ID Status Reason Start Date Expiration Date V isits Requested Visits Authorized [id number] Authorized 07/09/2024 07/09/2025 99 99 Encounter Details Date Type Department Care Team (Late st Contact Info) Description 07/21/2024 10:45 AM CDT Office Visit [facility] Infectious Disease [address] [place] [address] [place] [address] [place] [phone] Infection of right foot (Primary Dx) [...] doctor or pharmacy? Never 06/06/2024 [facility] Utilities Answer Date Recorded In the [...] How often do you attend chur or christianity services? More than 4 times per year 06/06/2024 Do you belong to any clubs o r organizations such as temple groups, unions, fraternal or athletic groups, or [...] Recorded Patient Health Questionnaire-2 Score 0 06/06/2024 [facility] of Occupat ional [facility] - Occupational Stress Questionnaire Answer Date [...] any time in the past 12 m [facility], were you homeless or living in a [...] Time Taken Comments Blood Pressure 115/90 07/21/2024 11:18 AM CDT Pulse 77 07/21/2024 11:18 AM CDT Temperature 36.7 ??C (98 ??F) 07/21/2024 11:18 AM CDT Respiratory Rate 16 07/21/2024 11:18 AM CDT Oxygen Saturation 93% 07/21/2024 11:18 AM CDT Inhaled Oxygen Concentration - - Weight - - Height - - Body Mass Index - - documented in this encounter Patient Instructions * Patient Instructions* Amairani Sigala MD - 07/21/2024 10:45 AM CDT Pt to picking table worker script for antibiotic from [facility] documented in this encounter Progress Notes * Amairani Sigala MD - 07/21/2024 10:45 AM CDT INFECTIOUS DISEASES progress note 07/21/24 Reason For Consult: Diabetic foot infection /abscess [...] (81 mg total) by mouth daily Yes Jake Shah MD atorvastatin (LIPITOR) 80 MG tablet Take 0.5 tablets (40 mg total) by mouth 1 (one) time each day 04/27/24 Yes Jake Shah MD carvedilol (COREG) 12.5 MG tablet Take [...] UNABLE TO FIND Med Name: Neurvive supplement ProviderJake MD Vitamin D, Cholecalciferol, 25 MCG (1000 UT) tablet Take 1,000 Units by mouth 1 (one) time each dayProviderJake MD Objective PHYSICAL EXAM Visit Vitals BP (!) 115/90 Pulse 77 Temp 36.7 ??C (98 ??F) (Temporal) Resp 16 SpO2 93% Smoking Status Never Physical Exam GENERAL: No [...] 1.6 (H) 07/14/2024 No results found for: [id number] No results found for: HAV, HEPAIGM, HEPBIGM, [...] clean, good granulation tissue. HBO to continue Picc site is clean Recommendations: - DC Ertapenem - - Remove Picc line - start cefadroxil 1000 mg po BID x 14 days -Return to clinic in 2 weeks. Discussed [...] patient/family/caregiver, ordering medications/tests/procedures, referring/communicating with other health rn care manager not separately reported, documentation, and independentlyinterpreting results not separately reported, communicating results to the patient/family/caregiver, and care coordination not separately reported). Amairani Strickland MD Infectious diseases Civil Engineer Helper documented in this encounter Plan of Treatment Upcoming Encounters Date Type Department Care Team (Late st Contact Info) Description 08/24/2024 8:30 AM CULINARY MANAGER Office Visit [facility] [place] [facility] [address] [place] [address] 08/24/2024 11:30 AM CULINARY MANAGER Office [facility] [address], [place] [address] Angel Coombs, DPM [address] [place] [phone] 08/25/2024 8:30 AM CULINARY MANAGER Office Visit [facility] [place] [facility] [address] [place] [phone] 08/26/2024 8:30 AM CULINARY MANAGER Office Visit [facility] [place] [facility] [address] [place] [address] 08/27/2024 8:30 AM CULINARY MANAGER Office Visit [facility] [place] [facility] [address] [place] [phone] 08/27/2024 11:00 AM CULINARY MANAGER Office Visit [facility] [place] [facility] [address] [place] [phone] Vilma Neves MD [address] [place] [phone] 08/28/2024 8:30 AM CULINARY MANAGER Office Visit [facility] [place] [facility] [address] [place] [phone] 08/31/2024 8:30 AM CULINARY MANAGER Office Visit [facility] [place] [facility] [address] [place] [phone] 09/01/2024 8:30 AM CULINARY MANAGER Office Visit [facility] Wound Care [address] [place] [phone] 09/02/2024 8:30 AM CULINARY MANAGER Office Visit [facility] Wound Care [address] [place] [phone] 09/03/2024 8:30 AM CULINARY MANAGER Office Visit [facility] Wound Care [address] [place] [phone] 09/03/2024 11:00 AM CULINARY MANAGER Office Visit [facility] [place] [facility] [address] [place] [phone] Vilma Neves MD [address] [place] [phone] 09/03/2024 11:00 AM CULINARY MANAGER Office Visit [facility] Infectious Disease [address] [place] [phone] Amairani Sigala MD [address] [place] [phone] 09/04/2024 8:30 AM CULINARY MANAGER Office Visit [facility] [address] [place] [phone] 09/07/2024 8:30 AM CULINARY MANAGER Office Visit [facility] [place] [facility] [address] [place] [phone] 09/08/2024 8:30 AM CULINARY MANAGER Office Visit [facility] [place] [facility] [address] [place] [phone] 09/09/2024 8:30 AM CULINARY MANAGER Office Visit [facility] [place] [facility] [address] [place] [phone] 09/10/2024 8:30 AM CULINARY MANAGER Office Visit [facility] [place] [facility] [address] [place] [phone] 09/10/2024 11:20 AM CULINARY MANAGER Office Visit [facility] [place] [facility] [address] [place] [phone] Vilam Neves MD [address] [place] [address] [phone] 09/11/2024 8:30 AM CULINARY MANAGER Office Visit [facility] [place] [facility] [address] [place] [phone] 09/14/2024 8:30 AM CULINARY MANAGER Office Visit [facility] [place] [facility] [address] [place] [address] 09/15/2024 8:30 AM CULINARY MANAGER Office Visit [facility] [place] [facility] [address] [place] [phone] documented as of this encounter Visit Diagnoses Diagnosis Infection of right foot- Primary documented in this encounter Care Teams Reception Agent Relationship Specialty Start Date End Date Thu Bhagat PA-C [address] [place] [phone] PCP - General 11/26/22 documented as of this encounter
--- OUTSIDE RECORDS SUMMARY | 2024-08-21 10:22 | XMS_ITS | Encounter Summary ---
Author Organization [facility] er Address [address] [place] [address] Care Team Providers Care Caramel Candy Maker Helper Name Role Phone Thu Bhagat PA-C Primary Care Provider [phone] Reason for Visit * Reason Comments Wound Check * Consultation (Routine) - Authorized Specialty Diagnoses / Procedures Referred By Contac t Referred To Contact Wound Care Diagnoses Type 2 diabetes mellitus with foot ulcer Procedures Wound Care HBOT Thu Bhagat PA-C [address] [place] [phone] [facility] [address] [place] [address] Referral ID Status Reason Start Date Expiration Date V isits Requested Visits Authorized [id number] Authorized 07/02/2024 10/11/2024 99 99 Encounter Details Date Type Department Care Team (Latest Contact Info) Description 07/17/2024 10:45 AM CDT Clinical Support [facility] Wound Care [address] [place] [address] [phone] Change of dressing (Primary Dx) Social History Tobacco Use Types [...] from your doctor or pharmacy? Never 06/06/2024 [facility] Utilities Answer Date Recorded In [...] often do you attend chur ch or latter day services? More than 4 times per year 06/06/2024 Do you belong to any clubs o r organizations such as mandaen groups, unions, fraternal or athletic groups, or [...] Recorded Patient Health Questionnaire-2 Score 0 06/06/2024 [facility] - Occupational Stress Questionnaire Answer Date [...] any time in the past 12 m [facility], were you homeless or living [...] as of this encounter Progress Notes * Karley Brice RN - 07/17/2024 10:45 AM CDT Images from the original note were not included. 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 (Active) Wound Image 07/14/24 1512 Wound Length (cm) 5.7 cm 07/17/24 1100 Wound Width (cm) 1.6 cm 07/17/24 1100 Wound Depth (cm) 1.3 cm 07/17/24 1100 Wound Area (cm^2) 9.12 cm^2 07/17/24 1100 Wound Volume (cm^3) 11.856 cm^3 07/17/24 1100 Wound Healing % 85 07/17/24 1100 Inflammation No 07/17/24 1100 Granulation % 40 % 07/17/24 1100 Slough % 60 % 07/17/24 1100 Structures Exposed Fat 07/17/24 1100 Exudate Type Serosanguinous 07/17/24 1100 Exudate Amount Moderate 07/17/24 1100 Wound Edges Attached 07/17/24 1100 Cassie-wound Skin Macerated 07/17/24 1100 Periwound Skin Treatment Calmoseptime 07/17/24 1100 Odor No 07/17/24 1100 Cellular or Tissue Based Product Type Kerecis 07/14/24 1512 Cellular or Tissue Based Product Expiration Date 09/20/25 07/14/24 1512 Cellular or Tissue Based Product Applied (%) 100 07/14/24 1512 Cellular or Tissue Based Product Amount Wasted (%) 0 07/14/24 1512 Cellular or Tissue Based Products Affixed With Other (comment) 07/14/24 1512 NPWT Status Hold 07/07/24 1500 NPWT Type KCI Wound Vac 07/07/24 1500 NPWT Pressure Setting (mmHg) 125 mmHg 07/03/24 1500 NPWT Pressure Setting Constant 07/03/24 1500 NPWT Type of Sponge Black Foam 07/03/24 1500 NPWT # of Dressing Removed 1 07/03/24 1500 NPWT # of Dressings Applied 1 07/03/24 1500 Change Dressings Per Week 2 07/03/24 1500 Compression Applied To RLE 07/17/24 1100 Compression Type Tubigrip 07/17/24 1100 Compression Wrap Rewrap PRN if loose 07/17/24 1100 Wound/Ulcer Cleaning Rinsed/irrigated with saline 07/17/24 1100 Primary Dessing Applied Collagen 07/17/24 1100 Primary Dressing Type Promogran 07/17/24 1100 Remove dressing Yes 07/17/24 1100 Change Dressings Per Week 3 07/17/24 1100 Covered/Secured With Mepilex white foam, ABD pad, afshin 07/17/24 1100 Remove dressing Yes 07/17/24 1100 Change Dressings Per Week 3 07/17/24 [address] Yes 07/17/24 1100 Offloading Used Yes 07/17/24 1100 Type of Offloading Used Rooke Boot 07/17/24 1100 Offloading Laterality RLE 07/17/24 1100 Offloading Compliance Yes 07/17/24 1100 Incision/Surgical Site 06/08/24 Toe D2, second Anterior;Right (Active) Incision/Surgical Site 06/12/24 Toe D2, second Anterior;Right (Active) Dressing change complete. Patient tolerated well. Supervising provider Dr. Vilma Neves. documented in this encounter Plan of Treatment Upcoming Encounters Date Type Department Care Team (Late st Contact Info) Description 08/24/2024 8:30 AM COMPUTER TECHNOLOGY TEACHER Office Visit [facility] Care [address] [place] [address] [phone] 08/24/2024 11:30 AM COMPUTER TECHNOLOGY TEACHER Office Visit [facility] [address], [place] [phone] Angel Coombs, DPM [address] [place] [phone] 08/25/2024 8:30 AM COMPUTER TECHNOLOGY TEACHER Office Visit [facility] [address] [place] [phone] 08/26/2024 8:30 AM COMPUTER TECHNOLOGY TEACHER Office Visit [facility] [address] [place] [address] [phone] 08/27/2024 8:30 AM COMPUTER TECHNOLOGY TEACHER Office Visit [facility] Wound Care [address] [place] [phone] 08/27/2024 11:00 AM COMPUTER TECHNOLOGY TEACHER Office Visit [facility] [address] [place] [phone] Vilma Neves MD [address] [place] [address] [phone] 08/28/2024 8:30 AM COMPUTER TECHNOLOGY TEACHER Office Visit [facility] Wound Care [address] [place] [address] [phone] 08/31/2024 8:30 AM COMPUTER TECHNOLOGY TEACHER Office Visit [facility] W[facility] Care [address] [place] [address] [phone] 09/01/2024 8:30 AM COMPUTER TECHNOLOGY TEACHER Office Visit [facility] [address] [place] [address] [phone] 09/02/2024 8:30 AM COMPUTER TECHNOLOGY TEACHER Office Visit [facility] Wound Care [address] [place] [address] 24438 09/03/2024 8:30 AM COMPUTER TECHNOLOGY TEACHER Office Visit [facility] W[facility] Care [address] [place] [address] 36259 09/03/2024 11:00 AM COMPUTER TECHNOLOGY TEACHER Office Visit [facility] [address] [place] [address] 21543 Vilma Neves MD [address] [place] [phone] 09/03/2024 11:00 AM COMPUTER TECHNOLOGY TEACHER Office Visit [facility] Infectious Disease [address] [place] [address] [phone] Amairani Sigala MD [address] [place] [phone] 09/04/2024 8:30 AM COMPUTER TECHNOLOGY TEACHER Office Visit [facility] W[facility] Care [address] [place] [address] 41986 09/07/2024 8:30 AM COMPUTER TECHNOLOGY TEACHER Office Visit [facility] [address] [place] [address] [phone] 09/08/2024 8:30 AM COMPUTER TECHNOLOGY TEACHER Office Visit [facility] Care [address] [place] [address] 28514 09/09/2024 8:30 AM COMPUTER TECHNOLOGY TEACHER Office Visit [facility] [address] [place] [address] 15968 09/10/2024 8:30 AM COMPUTER TECHNOLOGY TEACHER Office Visit [facility] [address] [place] [address] [phone] 09/10/2024 11:20 AM COMPUTER TECHNOLOGY TEACHER Office Visit [facility] [address] [place] [address] [phone] Vilma Neves MD [address] [place] [phone] 09/11/2024 8:30 AM COMPUTER TECHNOLOGY TEACHER Office Visit [facility] Care [address] [place] [address] 32401 09/14/2024 8:30 AM COMPUTER TECHNOLOGY TEACHER Office Visit [facility] [address] [place] [address] [phone] 09/15/2024 8:30 AM COMPUTER TECHNOLOGY TEACHER Office Visit [facility] [address] [place] [address] [phone] documented as of this encounter Visit Diagnoses Diagnosis Change of dressing- Primary Encounter for change or removal of nonsurgical wound dressing documented in this encounter Care Teams Caramel Candy Maker Helper Relationship Specialty Start Date End Date Thu Bhagat PA-C [address] [place] [phone] PCP - General 11/26/22 documented as of this encounter
--- OUTSIDE RECORDS SUMMARY | 2024-08-21 10:22 | XMS_ITS | Encounter Summary ---
Author Organization [facility] er Address [address] [place] [address] Care Team Providers Care Salesperson Wigs Name Role Phone Thu Bhagat PA-C Primary Care Provider Reason for Visit * Reason Comments HBO * Consultation (Routine) - Authorized Specialty Diagnoses / Procedures Referred By Contac t Referred To Contact Wound Care Diagnoses Type 2 diabetes mellitus with foot ulcer Procedures Wound Care HBOT Thu Bhagat PA-C [address] [place] [phone] [facility] Wound Care [address] [place] [address] Referral ID Status Reason Start Date Expiration Date V isits Requested Visits Authorized [id number] Authorized 07/02/2024 10/11/2024 99 99 Encounter Details Date Type Department Care Team (Late st Contact Info) Description 07/20/2024 8:30 AM CDT Office Visit [facility] W[facility] Care [address] [place] [address] [place] [address] [place] [phone] Diabetic ulcer of right midfoot associated [...] doctor or pharmacy? Never 06/06/2024 [facility] Utilities Answer Date Recorded In the past 12 months has e [employer], [employer], oil, or water [employer] threatened to shut off services in your [...] 06/06/2024 How often do you attend [facility] or confucianism services? More than 4 times per year 06/06/2024 Do you belong to any clubs o r organizations such as jain groups, unions, fraternal or athletic groups, or [...] 06/06/2024 [facility] - Occupational Stress Questionnaire Answer Date [...] any time in the past 12 m [facility], were you homeless or living [...] Sign Reading Time Taken Comments Blood Pressure 125/86 07/20/2024 11:34 AM CDT Pulse 74 07/20/2024 11:34 AM CDT Temperature 36.1 ??C (96.9 ??F) 07/20/2024 11:34 AM C DT Respiratory Rate - - Oxygen Saturation 98% 07/20/2024 11:34 AM CDT Inhaled Oxygen Concentration - - Weight - - Height - - Body Mass Index - - documented in this encounter Progress Notes * Riya Stewart RN - 07/20/2024 8:30 AM CDT HYPERBARIC OXYGEN THERAPY TREATMENT # 5 2.0 Atmospheres Absolute for 90 minutes without air-breaks Chamber: Chamber Number: [id number] Patient presented wearing off loading device to right foot, ordered dressings in place. Vitals: 07/20/24 1134 BP: 125/86 Pulse: 74 Temp: (!) 36.1 ??C (96.9 ??F) SpO2: 98% Glucose Readings Pre Capillary Blood Glucose: 82 (boost x2, crackers and peanut butter given per provider. Blood glucose at 0930 was 143) Post Capillary Blood Glucose: 250 Blood Glucose Reference Range: 65-95 If patient diabetic, was the Glycemia Interventions Protocol ordered by the physician? : Yes Hyperbaric Monitor Indications: Diabetic Kenney Grade 3 or Higher Treatment Start Time - Compression Begins at 1 ZAID: 0935 Rate Set PSI / Min: 1.5 Pressure Reached: 0946 ZAID: 2.0 Decompression Begins: 1116 Treatment End Time to 1 ZAID: 1129 Total Treatment Time: 114 Symptoms Noted During Treatment: None Hyperbaric Pre-Instpection Hyperbaric Pre-Inspection Consent Obtained: Yes Is there a TCOM ordered for the patient?: Yes Patient voided/noonan secured and emptied: Yes When did the patient last eat?: 0900 (boost, crackers, and peanut butter given per provider) Last dose of injectable or oral hypoglycemic agent: 0600 Ostomy pouch emptied and vented (if applicable): N/A All implantable devices assessed, documented, and approved: N/A Intravenous access site secured and placed: Yes Valuables secured: Yes Linens are cotton: Yes Cotton Gown: Yes Glasses Removed: Yes Jewelery Removed: Yes Makeup Removed: Yes Hair Care Products Removed: Yes Wigs or Hair Pieces Removed: Yes Nail somali cured greater than 10 hours: Yes Personal [...] Associated attestation - Vilma Neves MD - 07/20/2024 12:41 PM CDT HBOT Physician Documentation: Wound Examined? No. Please see weekly wound visit note for detailed wound findings for this corresponding week Patient Cleared for HBO? Yes Continue HBO? Yes TEED Score: Pre-Treatment bilateral TMs cerumen with plans for ENT flush Post Treatment bilateral TMs cerumen with plans for ENT flush PE Tubes? No Myringotomy Performed? No Breath Sounds: CTAB Other Notes: Recommend continuing with HBOT as wound is progressing well as noted in wound visit note each week documented in this encounter Plan of Treatment Upcoming Encounters Date Type Department Care Team (Late st Contact Info) Description 08/24/2024 8:30 AM CAPITAL EQUIPMENT SPECIALIST Office Visit [facility] Wound Care [address] [place] [address] 08/24/2024 11:30 AM CAPITAL EQUIPMENT SPECIALIST Office Visit Podiatry [address] [place] [address] Angel Coombs, DPHang [address] [place] [phone] 08/25/2024 8:30 AM CAPITAL EQUIPMENT SPECIALIST Office Visit [facility] Wound Care [address] [place] [address] 08/26/2024 8:30 AM CAPITAL EQUIPMENT SPECIALIST Office Visit [facility] Wound Care [address] [place] [address] 08/27/2024 8:30 AM CAPITAL EQUIPMENT SPECIALIST Office Visit [facility] Wound Care [address] [place] [address] 08/27/2024 11:00 AM CAPITAL EQUIPMENT SPECIALIST Office Visit [facility] Wound Care [address] [place] [address] Vilma Neves MD [address] [place] [phone] 08/28/2024 8:30 AM CAPITAL EQUIPMENT SPECIALIST Office Visit [facility] Wound Care [address] [place] [address] 08/31/2024 8:30 AM CAPITAL EQUIPMENT SPECIALIST Office Visit [facility] Wound Care [address] [place] [address] 09/01/2024 8:30 AM CAPITAL EQUIPMENT SPECIALIST Office Visit [facility] Wound Care [address] [place] [address] 09/02/2024 8:30 AM CAPITAL EQUIPMENT SPECIALIST Office Visit [facility] W[facility] [address] [place] [address] 09/03/2024 8:30 AM CAPITAL EQUIPMENT SPECIALIST Office Visit [facility] Wound Care [address] [place] [address] 09/03/2024 11:00 AM CAPITAL EQUIPMENT SPECIALIST Office Visit [facility] W[facility] [address] [place] [address] Vilma Neves MD [address] [place] [address] [phone] 09/03/2024 11:00 AM CAPITAL EQUIPMENT SPECIALIST Office Visit [facility] Infectious Disease [address] [place] [address] Amairani Sigala MD [address] [place] [address] [phone] 09/04/2024 8:30 AM CAPITAL EQUIPMENT SPECIALIST Office Visit [facility] W[facility] Care [address] [place] [address] 09/07/2024 8:30 AM CAPITAL EQUIPMENT SPECIALIST Office Visit [facility] W[facility] [address] [place] [address] 09/08/2024 8:30 AM CAPITAL EQUIPMENT SPECIALIST Office Visit [facility] W[facility] [address] [place] [address] 09/09/2024 8:30 AM CAPITAL EQUIPMENT SPECIALIST Office Visit [facility] W[facility] Care [address] [place] [address] 09/10/2024 8:30 AM CAPITAL EQUIPMENT SPECIALIST Office Visit [facility] W[facility] [address] [place] [address] 129[address] 09/10/2024 11:20 AM CAPITAL EQUIPMENT SPECIALIST Office Visit [facility] W[facility] [address] [place] [address] Vilma Neves MD [address] [place] [address] [phone] 09/11/2024 8:30 AM CAPITAL EQUIPMENT SPECIALIST Office Visit [facility] Wound Care [address] [place] [address] 09/14/2024 8:30 AM CAPITAL EQUIPMENT SPECIALIST Office Visit [facility] Wound Care [address] [place] [address] 09/15/2024 8:30 AM CAPITAL EQUIPMENT SPECIALIST Office Visit [facility] Wound Care [address] [place] [phone] documented as of this encounter Procedures Procedure Name Priority Date/Time Associated Diagnosis Comments POCT PRECISION GLUCOSE Routine 07/20/2024 11:36 AM CDT POCT PRECISION GLUCOSE Routine 07/20/2024 9:32 AM CDT POCT PRECISION GLUCOSE Routine 07/20/2024 9:12 AM CDT POCT PRECISION GLUCOSE Routine 07/20/2024 8:46 AM CDT documented in this encounter Results * (ABNORMAL) POCT Precision glucose (07/20/2024 11:36 AM CDT) [facility] Glucose Blood, POC 250(H) 70 - 100 mg/dL 07/20/2024 11:[address] [facility] Comment: Meter ID: [id number] Capillary whole blood specimens should not be used in patients receiving intensive medical intervention/therapy because of the potential for pre-analytical collection error and specifically in patients with decreased peripheral blood flow, as it may not truly reflect the patient? s true physiological state. Examples include, but are not limited to, severe hypotension, shock, hyperosmolar-hyperglycemia (with or without ketosis), and severe dehydration. 07/20/2024 11:3 6 AM CDT 07/20/2024 11:39 AM CDT Vilma Neves MD LAB POINT OF CARE TE ST DOCKED DEVICE UNSOLICITED RESULTS [facility] [address] [place] [address] 18[address] * (ABNORMAL) POCT Precision glucose (07/20/2024 9:32 AM CDT) Glucose Blood, POC 142(H) 70 - 100 mg/dL 07/20/2024 9:[address] [facility] Comment: Meter ID: [id number] Capillary whole blood specimens should not be used in patients receiving intensive medical intervention/therapy because of the potential for pre-analytical collection error and specifically in patients with decreased peripheral blood flow, as it may not truly reflect the patient? s true physiological state. Examples include, but are not limited to, severe hypotension, shock, hyperosmolar-hyperglycemia (with or without ketosis), and severe dehydration. 07/20/2024 9:32 AM CDT 07/20/2024 9:33 AM CDT Thu MERIDA-C LAB POINT OF CARE TE ST DOCKED DEVICE UNSOLICITED RESULTS Performing Organization Address [facility] de Phone Number [facility] [address] [place] [phone] * (ABNORMAL) POCT Precision glucose (07/20/2024 9:12 AM CDT) Glucose Blood, POC 123(H) 70 - 100 mg/dL 07/20/2024 9:[address] [facility] Comment: Meter ID: [id number] Capillary whole blood specimens should not be used in patients receiving intensive medical intervention/therapy because of the potential for pre-analytical collection error and specifically in patients with decreased peripheral blood flow, as it may not truly reflect the patient? s true physiological state. Examples include, but are not limited to, severe hypotension, shock, hyperosmolar-hyperglycemia (with or without ketosis), and severe dehydration. 07/20/2024 9:12 AM CDT 07/20/2024 9:13 AM CDT Thu MERIDA-C LAB POINT OF CARE TE ST DOCKED DEVICE UNSOLICITED RESULTS Performing Organization Address [facility]/State/ZIP Co de Phone Number [facility] [address] [place] [address] * POCT Precision glucose (07/20/2024 8:46 AM CDT) Glucose Blood, POC 82 70 - 100 mg/dL 07/20/2024 8:[address] [facility] Comment: Meter ID: [id number] Capillary whole blood specimens should not be used in patients receiving intensive medical intervention/therapy because of the potential for pre-analytical collection error and specifically in patients with decreased peripheral blood flow, as it may not truly reflect the patient? s true physiological state. Examples include, but are not limited to, severe hypotension, shock, hyperosmolar-hyperglycemia (with or without ketosis), and severe dehydration. 07/20/2024 8:46 AM CDT 07/20/2024 8:47 AM CDT Thu Bhagta PA-C LAB POINT OF CARE TE ST DOCKED DEVICE UNSOLICITED RESULTS 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
--- OUTSIDE RECORDS SUMMARY | 2024-08-21 10:22 | XMS_ITS | Encounter Summary ---
Author Organization [facility] er Address [address] [place] [address] Care Team Providers Care Decorating Consultant Name Role Phone Thu Bhagat PA-C Primary Care Provider [phone] Reason for Visit * Reason Comments Foot/ankle Post-op I and d right foot * Consultation (Routine) - Authorized Specialty Diagnoses / Procedures Referred By Kaley laguna Referred To Contact Podiatry Diagnoses Cellulitis, unspecified Procedures Podiatry Thu Bhagat PA-C [address] [place] [phone] [address] [place] [address] Referral ID Status Reason Start Date Expiration Date V isits Requested Visits Authorized [id number] Authorized 07/02/2024 12/29/2024 99 99 Encounter Details Date Type Department Care Team (Latest Contact Info) Description 07/16/2024 1:45 PM CDT Office Visit [facility] [address], [place] [phone] Angel Coombs, DPM [address] [place] [phone] Surgery follow-up (Primary Dx); Diabetic polyneuropathy associated [...] doctor or pharmacy? Never 06/06/2024 [facility] Utilities Answer Date Recorded In the past 12 months has e [employer], [employer], oil, or water [employer] threatened to shut off services in your [...] week 06/06/2024 How often do you attend [facility] or episcopalian services? More than 4 times per year 06/06/2024 Do you belong to any clubs o r organizations such as yarsani groups, unions, fraternal or athletic groups, or [...] Recorded Patient Health Questionnaire-2 Score 0 06/06/2024 [facility] ional [facility] - Occupational [...] Sign Reading Time Taken Comments Blood Pressure 107/75 07/16/2024 1:59 PM CDT Pulse 71 07/16/2024 1:59 PM CDT Temperature 36.4 ??C (97.5 ??F) 07/16/2024 1:59 PM CD T Respiratory Rate - - Oxygen Saturation 97% 07/16/2024 1:59 PM CDT Inhaled Oxygen Concentration - - Weight - - Height - - Body Mass Index - - documented in this encounter Progress Notes * Angel Coombs, KERVIN - 07/16/2024 1:45 PM CDT Aline Mcintyre is a 69 y.o. male who presents for Foot/ankle Post-op (I and d right foot ) History of Present Illness The patient is a 76-year-old male who presents for evaluation of wound care. He reports that his wound has been swelling and he has been receiving treatment from Dr. Díaz,which includes the application of fish skin to the wound. He mentions that the wound VAC, a device used to help wounds heal, was discontinued but is expected to be reapplied next Saturday. His wound dressings are changed weekly on Tuesdays. He also had an appointment with Zulay Tobar today. He denie s experiencing any nausea, vomiting, fever, chills, chest pain, calf pain, or difficulty breathing. Review of Systems Objective Blood pressure 107/75, pulse 71, temperature 36.4 ??C (97.5 ??F), SpO2 97%. Physical Exam Patient is alert and oriented x3 and in no acute distress. Wound on the right foot at the amputation site of the right second toe measures approximately 65 mmlong by 8 mm wide and approximately 5 mm deep. It has a granular base. No purulence, no malodor, nosigns of infection. No perimarginal erythema. Results Assessment & Plan 1. Diabetes Mellitus. His diabetes is being managed, and he is currently undergoing hyperbaric oxygen therapy (HBO) as part of his treatment plan. 2. Diabetic Polyneuropathy. This condition is contributing to his wound healing challenges. He is advised to continue with his current treatment regimen. 3. 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 The wound on his right foot at the amputation site of the right second toe was examined and measured approximately 65 mm long by 8 mm wide and approximately 5 mm deep. It had a granular base with no purulence, malodor, or signs of infection. There was no perimarginal erythema. The wound was dressedwith Xeroform, 4 x 4's, Kerlix, and ROLAND. He was instructed to remain nonweightbearing. He will continue hyperbaric oxygen therapy and wound care under the supervision of Dr. Díaz. The dressing will be changed by Carissa Tobar tomorrow. Follow-up Return in 2 weeks for follow-up. Attestation Angel Coombs DPM documented in this encounter Plan of Treatment Upcoming Encounters Date Type Department Care Team (Late st Contact Info) Description 08/24/2024 8:30 AM VICE PRESIDENT QUALITY ASSURANCE Office Visit [facility] Wound Care [address] [place] [address] 08/24/2024 11:30 AM VICE PRESIDENT QUALITY ASSURANCE Office Visit [facility] [address] [place] [address] Angel Coombs DPM [address] [place] [phone] 08/25/2024 8:30 AM VICE PRESIDENT QUALITY ASSURANCE Office Visit [facility] Wound Care [address] [place] [address] 08/26/2024 8:30 AM VICE PRESIDENT QUALITY ASSURANCE Office Visit [facility] Wound Care [address] [place] [phone] 08/27/2024 8:30 AM VICE PRESIDENT QUALITY ASSURANCE Office Visit [facility] Wound Care [address] [place] [address] 08/27/2024 11:00 AM VICE PRESIDENT QUALITY ASSURANCE Office Visit [facility] Wound Care [address] [place] [phone] Vilma Neves MD [address] [place] [phone] 08/28/2024 8:30 AM VICE PRESIDENT QUALITY ASSURANCE Office Visit [facility] Wound Care [address] [place] [address] [phone] 08/31/2024 8:30 AM VICE PRESIDENT QUALITY ASSURANCE Office Visit [facility] Wound Care [address] [place] [address] [phone] 09/01/2024 8:30 AM VICE PRESIDENT QUALITY ASSURANCE Office Visit [facility] W[facility] Care [address] [place] [address] [phone] 09/02/2024 8:30 AM VICE PRESIDENT QUALITY ASSURANCE Office Visit [facility] Wound Care [address] [place] [address] [phone] 09/03/2024 8:30 AM VICE PRESIDENT QUALITY ASSURANCE Office Visit [facility] Wound Care [address] [place] [address] 56822 09/03/2024 11:00 AM VICE PRESIDENT QUALITY ASSURANCE Office Visit [facility] Wound Care [address] [place] [phone] Vilma Neves MD [address] [place] [phone] 09/03/2024 11:00 AM VICE PRESIDENT QUALITY ASSURANCE Office Visit [facility] Infectious Disease [address] [place] [address] [phone] Amairani Sigala MD [address] [place] [address] [phone] 09/04/2024 8:30 AM VICE PRESIDENT QUALITY ASSURANCE Office Visit [facility] Wound Care [address] [place] [address] [phone] 09/07/2024 8:30 AM VICE PRESIDENT QUALITY ASSURANCE Office Visit [facility] Wound Care [address] [place] [address] 51864 09/08/2024 8:30 AM VICE PRESIDENT QUALITY ASSURANCE Office Visit [facility] Wound Care [address] [place] [address] [phone] 09/09/2024 8:30 AM VICE PRESIDENT QUALITY ASSURANCE Office Visit [facility] Wound Care [address] [place] [address] [phone] 09/10/2024 8:30 AM VICE PRESIDENT QUALITY ASSURANCE Office Visit [facility] Wound Care [address] [place] [address] [phone] 09/10/2024 11:20 AM VICE PRESIDENT QUALITY ASSURANCE Office Visit [facility] Wound Care [address] [place] [address] [phone] Vilma Neves MD [address] [place] [address] [phone] 09/11/2024 8:30 AM VICE PRESIDENT QUALITY ASSURANCE Office Visit [facility] Wound Care [address] [place] [address] [phone] 09/14/2024 8:30 AM VICE PRESIDENT QUALITY ASSURANCE Office Visit [facility] Wound Care [address] [place] [address] [phone] 09/15/2024 8:30 AM VICE PRESIDENT QUALITY ASSURANCE Office Visit [facility] Wound Care [address] [place] [address] [phone] documented as of this encounter Visit Diagnoses Diagnosis Surgery follow-up- Primary Diabetic polyneuropathy associated with type 2 diabetes mellitus (HCC) Ulcer of left foot 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) documented in this encounter Care Teams Decorating Consultant Relationship Specialty Start Date End Date Thu Bhagat PA-C [address] [place] [phone] PCP - General 11/26/22 documented as of this encounter
--- OUTSIDE RECORDS SUMMARY | 2024-08-21 10:23 | XMS_ITS | Encounter Summary ---
Author Organization [facility] er Address [address] [place] [id number] Care Team Providers Care Tire Builder Operator Name Role Phone Thu Bhagat PA-C Primary Care Provider [phone] Reason for Visit * Reason Comments OP Infusion * Consultation (Routine) - Canceled Specialty Diagnoses / Procedures Referred By Kaley t Referred To Contact Infusion Therapy Diagnoses Infection of right foot Pina Méndez MD [address] [place] [phone] [facility] Infusion Therapy [address] [place] [phone] Referral ID Status Reason Start Date Expiration Date Visits Requested Visits Authorized [id number] Canceled Specialty Services Required 06/17/2024 10/16/2024 99 [phone] Encounter Details Date Type Department Care Team ([facility] st Contact Info) Description 07/14/2024 2:00 PM CDT Infusion [facility] Infusion Therapy [address] [place] [phone] Infection of right foot (Primary Dx) Social [...] often do you attend chur ch or pentecostal services? More than 4 times per year [...] Recorded Patient Health Questionnaire-2 Score 0 06/06/2024 [facility] - Occupational Stress Questionnaire Answer Date [...] any time in the past 12 [facility], were you homeless or living in [...] Sign Reading Time Taken Comments Blood Pressure 112/75 07/14/2024 2:25 PM CDT Pulse 78 07/14/2024 2:25 PM CDT Temperature 36.7 ??C (98.1 ??F) 07/14/2024 2:25 PM CD T Respiratory Rate 18 07/14/2024 2:25 PM CDT Oxygen Saturation 97% 07/14/2024 2:25 PM CDT Inhaled Oxygen Concentration - - Weight - - Height - - Body Mass Index - - documented in this encounter Plan of Treatment Upcoming Encounters Date Type Department Care Team (Late st Contact Info) Description 08/24/2024 8:30 AM ESCROW REPRESENTATIVE Office Visit [facility] Wound Care [address] [place] [phone] 08/24/2024 11:30 AM ESCROW REPRESENTATIVE Office Visit [facility] [address] [place] [phone] Angel Coombs, DPM [address] [place] [phone] 08/25/2024 8:30 AM ESCROW REPRESENTATIVE Office Visit [facility] Wound Care [address] [place] [phone] 08/26/2024 8:30 AM ESCROW REPRESENTATIVE Office Visit [facility] Wound Care [address] [place] [phone] 08/27/2024 8:30 AM ESCROW REPRESENTATIVE Office Visit [facility] Wound Care [address] [place] [phone] 08/27/2024 11:00 AM ESCROW REPRESENTATIVE Office Visit [facility] Wound Care [address] [place] [phone] Vilma Neves MD [address] [place] [phone] 08/28/2024 8:30 AM ESCROW REPRESENTATIVE Office Visit [facility] [address] [place] [phone] 08/31/2024 8:30 AM ESCROW REPRESENTATIVE Office Visit [facility] [address] [place] [phone] 09/01/2024 8:30 AM ESCROW REPRESENTATIVE Office Visit [facility] [address] [place] [phone] 09/02/2024 8:30 AM ESCROW REPRESENTATIVE Office Visit [facility] [address] [place] [phone] 09/03/2024 8:30 AM ESCROW REPRESENTATIVE Office Visit [facility] [address] [place] [phone] 09/03/2024 11:00 AM ESCROW REPRESENTATIVE Office Visit [facility] [address] [place] [phone] Vilma Neves MD [address] [place] [phone] 09/03/2024 11:00 AM ESCROW REPRESENTATIVE Office Visit [facility] Infectious Disease [address] [place] [phone] Amairani Sigala MD [address] [place] [address] [phone] 09/04/2024 8:30 AM ESCROW REPRESENTATIVE Office Visit [facility] [address] [place] [phone] 09/07/2024 8:30 AM ESCROW REPRESENTATIVE Office Visit [facility] [address] [place] [phone] 09/08/2024 8:30 AM ESCROW REPRESENTATIVE Office Visit [facility] [address] [place] [phone] 09/09/2024 8:30 AM ESCROW REPRESENTATIVE Office Visit [facility] [address] [place] [phone] 09/10/2024 8:30 AM ESCROW REPRESENTATIVE Office Visit [facility] Wound Care [address] [place] [phone] 09/10/2024 11:20 AM ESCROW REPRESENTATIVE Office Visit [facility] Wound Care [address] [place] [phone] Vilma Neves MD [address] [place] [address] [phone] 09/11/2024 8:30 AM ESCROW REPRESENTATIVE Office Visit [facility] Wound Care [address] [place] [phone] 09/14/2024 8:30 AM ESCROW REPRESENTATIVE Office Visit [facility] Wound Care [address] [place] [phone] 09/15/2024 8:30 AM ESCROW REPRESENTATIVE Office Visit [facility] Wound Care [address] [place] [phone] documented as of this encounter Procedures Procedure Name Priority Date/Time Associated Diagnosis Comments ESTIMATED GLOMERULAR FILTRATION RATE (EGFR) Routine 07/14/2024 2:09 PM CDT Infection of right foot CBC WITH AUTO DIFFERENTIAL Routine 07/14/2024 2:09 PM CDT Infection of right foot COMPREHENSIVE METABOLIC PANEL Routine 07/14/2024 2:09 PM CDT Infection of right foot documented in this encounter Results * Estimated Glomerular Filtration Rate (eGFR) (07/14/2024 2:09 PM CDT) Estimated Glomerular Filtration Rate (eGFR) >60 07/14/2024 3:03 PM CDT [facility] Comment: GFR calculated from serum creatinine value Chronic Kidney Disease less than 60 mL/min/1.73 m2 Kidney Failure less than 15 mL/min/1.73 m2 Note: effective 10/17/2022: 2020 CKD-EPI Equation used 07/14/2024 2:09 PM CDT 07/14/2024 2:09 PM CDT Pina Méndez MD LAB BLOOD ORDERABLES [facility] [address] [place] [address] * (ABNORMAL) Comprehensive metabolic panel (07/14/2024 2:09 PM T) Total Protein 7.2 6.3 - 8.2 g/dL 07/14/2024 3:03 PM [facility] Albumin, Serum 4.1 3.5 - 5.0 g/dL 07/14/2024 3:03 PM [facility] Total Bilirubin 1.6(H) 0.1 - 1.0 mg/dL 07/14/2024 3:03 PM [facility] AST 25 8 - 48 U/L 07/14/2024 3:03 PM [facility] Alkaline Phosphatase 61 38 - 128 U/L 07/14/2024 3:03 PM [facility] ALT (SGPT) 20 0 - 49 U/L 07/14/2024 3:03 PM [facility] Sodium 139 135 - 145 mEq/L 07/14/2024 3:03 PM [facility] Potassium 4.3 3.5 - 5.1 mEq/L 07/14/2024 3:03 PM [facility] Chloride 105 98 - 107 mEq/L 07/14/2024 3:03 PM [facility] CO2 24 22 - 31 mmol/L 07/14/2024 3:03 PM [facility] BUN 17 5 - 25 mg/dL 07/14/2024 3:03 PM [facility] Creatinine 1.12 0.60 - 1.40 mg/dL 07/14/2024 3:03 PM [facility] Glucose 86 70 - 100 mg/dL 07/14/2024 3:03 PM [facility] Calcium, Total,S 9.6 8.4 - 10.2 mg/dL 07/14/2024 3:03 PM [facility] Anion Gap 10 4 - 13 07/14/2024 3:03 PM [facility] Comment: The anion gap is calculated with the following formula: AGAP = Na ? (Cl + CO2). Fasting? Unknown 07/14/2024 2:14 PM [facility] Blood (Blood, Venous) 07/14/2024 2:09 PM CDT 07/14/2024 2:14 PM T Pina Méndez MD LAB BLOOD ORDERABLES [facility] [address] [place] [address] * CBC auto differential (07/14/2024 2:09 PM CDT) WBC 7.0 3.5 - 10.5 K/uL 07/14/2024 2:53 PM [facility] RBC 5.44 4.30 - 5.70 M/uL 07/14/2024 2:53 PM [facility] Hemoglobin 16.4 13.5 - 17.5 g/dL 07/14/2024 2:53 PM [facility] Hematocrit 49.2 38.0 - 50.0 % 07/14/2024 2:53 PM [facility] Platelets 225 150 - 450 K/uL 07/14/2024 2:53 PM [facility] MCV 90.4 81.2 - 95.1 fL 07/14/2024 2:53 PM [facility] MCH 30.1 26.0 - 32.0 pg 07/14/2024 2:53 PM [facility] MCHC 33.3 32.0 - 36.0 g/dL 07/14/2024 2:53 PM [facility] RDW 15.0 11.8 - 15.6 % 07/14/2024 2:53 PM [facility] NRBC %, Automated 0 % 07/14/2024 2:53 PM [facility] NRBC Absolute, Autmated 0.00 K/uL 07/14/2024 2:53 PM [facility] Comment: 0-4 Days: 0.01 -0.02 >=5 Days: 0.00 Neutrophils 72.3 % 07/14/2024 2:53 PM [facility] Absolute Neutrophils 5.1 1.7 - 7.0 K/uL 07/14/2024 2:53 PM [facility] Lymphocytes % 16.1 % 07/14/2024 2:53 PM [facility] Absolute Lymphocytes 1.1 0.9 - 2.9 K/uL 07/14/2024 2:53 PM [facility] Monocytes % 7.7 % 07/14/2024 2:53 PM [facility] Monocytes Absolute 0.5 0.3 - 0.9 K/uL 07/14/2024 2:53 PM [facility] Eosinophils 2.6 % 07/14/2024 2:53 PM [facility] Absolute Eosinophils 0.2 0.1 - 0.5 K/uL 07/14/2024 2:53 PM [facility] Basophils 0.9 % 07/14/2024 2:53 PM [facility] Absolute Basophils 0.1 0.0 - 0.1 K/uL 07/14/2024 2:53 PM [facility] Immature Leukocytes 0.4 % 07/14/2024 2:53 PM [facility] Immature Leukocytes Absolute 0.03 0.00 - 0.04 K/uL 07/14/2024 2:53 PM [facility] Blood (Blood, Venous) 07/14/2024 2:09 PM CDT 07/14/2024 2:14 PM T Pina Méndez MD LAB BLOOD ORDERABLES [facility] [address] [place] [address] documented in this encounter Visit Diagnoses Diagnosis Infection of right foot- Primary documented in this encounter Care Teams Tire Builder Operator Relationship Specialty Start Date End Date Thu Bhagat PA-C [address] [place] [phone] PCP - General 11/26/22 documented as of this encounter
--- OUTSIDE RECORDS SUMMARY | 2024-08-21 10:23 | XMS_ITS | Encounter Summary ---
Author Organization [facility] er Address [address] [place] [address] Care Team Providers Care Jet Man Name Role Phone Thu Bhagat PA-C Primary Care Provider [phone] Reason for Visit * Reason Comments Follow-up Right foot infection * Consultation (Routine) - Authorized Specialty Diagnoses / Procedures Referred By Kaley t Referred To Contact Infectious Diseases Diagnoses Infection of right foot Pina Méndez MD [address] [place] [phone] [facility] Infectious Diseas [address] [place] [address] Referral ID Status Reason Start Date Expiration Date Visits Requested Visits Authorized [id number] Authorized Specialty Services Required 06/18/2024 10/16/2024 99 [phone] Encounter Details Date Type Department Care Team (Late st Contact Info) Description 07/07/2024 2:45 PM CDT Office Visit [facility] Infectious Disease [address] [place] [address] [phone] Amairani Sigala MD [address] [place] [phone] Infection of right foot (Primary Dx) [...] from your doctor or pharmacy? Never 06/06/2024 [facility] Utilities Answer Date Recorded In [...] Recorded Patient Health Questionnaire-2 Score 0 06/06/2024 [facility] ional [facility] - Occupational Stress Questionnaire Answer Date Recorded [...] Sign Reading Time Taken Comments Blood Pressure 100/67 07/07/2024 2:41 PM CDT Pulse 71 07/07/2024 2:41 PM CDT Temperature 37 ??C (98.6 ??F) 07/07/2024 2:41 PM CDT Respiratory Rate 16 07/07/2024 2:41 PM CDT Oxygen Saturation 95% 07/07/2024 2:41 PM CDT Inhaled Oxygen Concentration - - Weight - - Height - - Body Mass Index - - documented in this encounter Patient Instructions * Patient Instructions* Amairani Sigala MD - 07/07/2024 2:45 PM CDT Patient is encouraged to drink Kefir, one cup a day- bought in any supermarket, in order to decrease the risk of diarrhea associated to C difficile infection Side effects of the antibiotic discussed with patient in details documented in this encounter Progress Notes * Amairani Sigala MD - 07/07/2024 2:45 PM CDT INFECTIOUS DISEASES progress note 07/07/24 Reason For Consult: Diabetic foot infection /abscess in the foot Subjective Last seen 06/25 Patient is seen at the wound care as a follow-up. He has had surgery on 06/08 and 06/12 over his right foot. He was discharged home, and has been doing infusion with ertapenem daily. He is tolerating the antibiotic no side effects no confusion no nausea no vomiting no diarrhea. Denies any fever or chills. Has had a VAC for 2 weeks HISTORY OF PRESENT ILLNESS It is my [...] MD Objective PHYSICAL EXAM Visit Vitals BP 100/67 (BP Location: Right arm, Patient Position: Sitting) Pulse 71 Temp 37 ??C (98.6 ??F) (Temporal) Resp 16 SpO2 95% Smoking Status Never Physical Exam GENERAL: No acute distress. HEENT: OP clear - non icteric sclera, - no thrush, no ulcers NECK: Supple, CHEST: comfortable breathing ABDOMEN: Soft. Nontender. Nondistended. 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 No drainage and it does not probe to bone No major undermining SKIN: Sweat rash noted over the back NEURO: Awake, alert, and oriented to baseline. No acute focal sensorimotor deficits. PICC line site is clean LAB STUDIES Lab Results Component Value Date WBC 8.6 07/07/2024 HGB 15.9 07/07/2024 HCT 48.9 07/07/2024 MCV 91.2 07/07/2024 PLT 232 07/07/2024 Lab Results Component Value Date GLUCOSE 108 (H) 06/30/2024 CALCIUM 9.3 06/30/2024 NA 138 06/30/2024 K 4.3 06/30/2024 CO2 26 06/30/2024 CL 104 06/30/2024 BUN 13 06/30/2024 CREATININE 1.17 06/30/2024 Lab Results Component Value Date CRP >320.0 (H) 06/06/2024 Lab Results Component Value Date ALT 24 06/30/2024 AST 30 06/30/2024 ALKPHOS 67 06/30/2024 BILITOT 1.1 (H) 06/30/2024 No results found for: [id number] No results found for: HAV, HEPAIGM, HEPBIGM, [...] tissue infection involving his right foot #1 diabetic foot infection #2 Diabetic foot abscess status post washout done on 06/08/2024 #3 Leukocytosis secondary to #1 and 2 #4 Diabetes mellitus type 2 #5 MSSA infection Comment: Patient seen and examined. Surgical site appears to be clean, good granulation tissue. No drainage no surrounding erythema. Bone is not involved. 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 Recommendations: -Continue ertapenem at 1 g IV daily, the plan is to continue until July 20- -Weekly labs on antibiotic -Return to clinic in 2 weeks. At that time we will decide on further antimicrobial therapy=- -IV antibiotic may be followed by oral antimicrobials if needed -Labs from today were reviewed and are within normal limits Discussed side effects of the antibiotic with [...] patient/family/caregiver, ordering medications/tests/procedures, referring/communicating with other health director medicare sales not separately reported, documentation, and independentlyinterpreting results not separately reported, communicating results to the patient/family/caregiver, and care coordination not separately reported). Amairani Strickland MD Infectious diseases Airconditioning Drafting Officer documented in this encounter Plan of Treatment Upcoming Encounters Date Type Department Care Team (Late st Contact Info) Description 08/24/2024 8:30 AM TISSUE TECHNOLOGIST Office Visit [facility] [address] [place] [address] 08/24/2024 11:30 AM TISSUE TECHNOLOGIST Office Visit Podiatry [address] [place] [address] Angel Coombs, DPM [address] [place] [phone] 08/25/2024 8:30 AM TISSUE TECHNOLOGIST Office Visit [facility] W[facility] Care [address] [place] [phone] 08/26/2024 8:30 AM TISSUE TECHNOLOGIST Office Visit [facility] W[facility] Care [address] [place] [phone] 08/27/2024 8:30 AM TISSUE TECHNOLOGIST Office Visit [facility] W[facility] Care [facility] [address] [place] [address] [phone] 08/27/2024 11:00 AM TISSUE TECHNOLOGIST Office Visit [facility] W[facility] Care [address] [place] [phone] Vilma Neves MD [address] [place] [phone] 08/28/2024 8:30 AM TISSUE TECHNOLOGIST Office Visit [facility] W[facility] Care [address] [place] [phone] 08/31/2024 8:30 AM TISSUE TECHNOLOGIST Office Visit [facility] W[facility] Care [address] [place] [phone] 09/01/2024 8:30 AM TISSUE TECHNOLOGIST [facility] Visit [facility] [address] [place] [address] [phone] 09/02/2024 8:30 AM TISSUE TECHNOLOGIST [facility] Visit [facility] [address] [place] [address] [phone] 09/03/2024 8:30 AM TISSUE TECHNOLOGIST Office Visit [facility] Wound Care [address] [place] [phone] 09/03/2024 11:00 AM TISSUE TECHNOLOGIST Office Visit [facility] W[facility] Care [address] [place] [address] Vilma Neves MD [address] [place] [address] [phone] 09/03/2024 11:00 AM TISSUE TECHNOLOGIST Office Visit [facility] [address] [place] [address] [phone] Amairani Sigala MD [address] [place] [phone] 09/04/2024 8:30 AM TISSUE TECHNOLOGIST Office Visit [facility] [address] [place] [address] [phone] 09/07/2024 8:30 AM TISSUE TECHNOLOGIST Office Visit [facility] [address] [place] [address] 14634 09/08/2024 8:30 AM TISSUE TECHNOLOGIST Office Visit [facility] [address] [place] [address] [phone] 09/09/2024 8:30 AM TISSUE TECHNOLOGIST Office Visit [facility] W[facility] Care [address] [place] [address] [phone] 09/10/2024 8:30 AM TISSUE TECHNOLOGIST Office Visit [facility] W[facility] Care [address] [place] [address] [phone] 09/10/2024 11:20 AM TISSUE TECHNOLOGIST Office Visit [facility] [address] [place] [phone] Vilma Neves MD [address] [place] [phone] 09/11/2024 8:30 AM TISSUE TECHNOLOGIST Office Visit [facility] W[facility] [address] [place] [address] [phone] 09/14/2024 8:30 AM TISSUE TECHNOLOGIST Office Visit [facility] [address] [place] [phone] 09/15/2024 8:30 AM TISSUE TECHNOLOGIST Office Visit [facility] [address] [place] [phone] documented as of this encounter Visit Diagnoses Diagnosis Infection of right foot- Primary documented in this encounter Additional Health Concerns Infection Onset Date Last Indicated Resolved Time MSSA 06/06/2024 06/12/2024 07/13/2024 9:58 AM CDT documented as of this encounter Care Teams Jet Man Relationship Specialty Start Date End Date Thu Bhagat PA-C [address] [place] [phone] PCP - General 11/26/22 documented as of this encounter
--- OUTSIDE RECORDS SUMMARY | 2024-08-21 10:23 | XMS_ITS | Encounter Summary ---
Author Organization [facility] er Address [address] [place] [address] Care Team Providers Care Fiscal Services Manager Name Role Phone Thu Bhagat PA-C Primary Care Provider [phone] Reason for Visit * Reason Onset Date Comments Pt would like a nurse to call him back Encounter Details Date Type Department Care Team (Late st Contact Info) Description 07/06/2024 Telephone [facility] W[facility] Care [address] [place] [address] [place] [address] [place] [phone] Pt would like a nurse to call him back Social History Tobacco Use Types Packs/Day [...] from your doctor or pharmacy? Never 06/06/2024 [facility] Utilities Answer Date Recorded In [...] often do you attend chur ch or voodoo services? More than 4 times per year [...] Recorded Patient Health Questionnaire-2 Score 0 06/06/2024 [facility] Occup[facility] ional [facility] - Occupational Stress [...] Date Recorded How often does anyone, tyrell luis f family and friends, physically hurt [...] encounter Miscellaneous Notes * Telephone Encounter - Valeria Tobar RN - 07/06/2024 4:46 PM CDT Called patient back. Reported that the screen went blank on the wound vac on Saturday and he has not been able to get it to turn back on. He reports that he charged it all day and it still won't turnon. Fixed Income Analyst suggested he call [employer] to have them troubleshoot the machine and see if they need to sendhim a new one. Fixed Income Analyst also suggested removing the wound vac dressing and applying a temporary dressing, like gauze and rolled gauze, but the patient reported he does not have any dressings at home. Fixed Income Analyst suggested obtaining gauze from his pharmacy or the Friday store. Patient in agreement with plan. * Telephone Encounter - Ce Santiago - 07/06/2024 2:43 PM CDT Francisco Javier called and left a VM that he thinks his wound vac is not working properly and would like a nurse to give him a call at [phone] documented in this encounter Plan of Treatment Upcoming Encounters Date Type Department Care Team (Late st Contact Info) Description 08/24/2024 8:30 AM PRICK STITCHER Office Visit [facility] [address] [place] [phone] 08/24/2024 11:30 AM PRICK STITCHER Office Visit [facility] [address] [address] Angel Coombs, DPHang [address] [place] [phone] 08/25/2024 8:30 AM PRICK STITCHER Office Visit [facility] [address] [place] [phone] 08/26/2024 8:30 AM PRICK STITCHER Office Visit [facility] [address] [place] [phone] 08/27/2024 8:30 AM PRICK STITCHER Office Visit [facility] [address] [place] [phone] 08/27/2024 11:00 AM PRICK STITCHER Office Visit [facility] Wound Care [address] [place] [phone] Vilma Neves MD [address] [place] [phone] 08/28/2024 8:30 AM PRICK STITCHER Office Visit [facility] Wound Care [address] [place] [phone] 08/31/2024 8:30 AM PRICK STITCHER Office Visit [facility] Wound Care [address] [place] [phone] 09/01/2024 8:30 AM PRICK STITCHER Office Visit [facility] W[facility] Care [address] [place] [phone] 09/02/2024 8:30 AM PRICK STITCHER Office Visit [facility] [address] [place] [phone] 09/03/2024 8:30 AM PRICK STITCHER Office Visit [facility] W[facility] [address] [place] [phone] 09/03/2024 11:00 AM PRICK STITCHER Office Visit [facility] [address] [place] [phone] Vilma Neves MD [address] [place] [phone] 09/03/2024 11:00 AM PRICK STITCHER Office Visit [facility] Hospital Infectious Disease [address] [place] [phone] Amairani Sigala MD [address] [place] [phone] 09/04/2024 8:30 AM PRICK STITCHER Office Visit [facility] [address] [place] [phone] 09/07/2024 8:30 AM PRICK STITCHER Office Visit [facility] Wound Care [address] [place] [phone] 09/08/2024 8:30 AM PRICK STITCHER Office Visit [facility] [address] [place] [address] 09/09/2024 8:30 AM PRICK STITCHER Office Visit [facility] [address] [place] [address] 09/10/2024 8:30 AM PRICK STITCHER Office Visit [facility] [address] [place] [phone] 09/10/2024 11:20 AM PRICK STITCHER Office Visit [facility] [address] [place] [phone] Vilma Neves MD [address] [place] [phone] 09/11/2024 8:30 AM PRICK STITCHER Office Visit [facility] [address] [place] [phone] 09/14/2024 8:30 AM PRICK STITCHER Office Visit [facility] [address] [place] [phone] 09/15/2024 8:30 AM PRICK STITCHER Office Visit [facility] [address] [place] [phone] documented as of this encounter Visit Diagnoses Not on filedocumented in this encounter Additional Health Concerns Infection Onset Date Last Indicated Resolved Time MSSA 06/06/2024 06/12/2024 07/13/2024 9:58 AM CDT documented as of this encounter Care Teams Fiscal Services Manager Relationship Specialty Start Date End Date Thu Bhagat PA-C [address] [place] [phone] PCP - General 11/26/22 documented as of this encounter
--- OUTSIDE RECORDS SUMMARY | 2024-08-21 10:23 | XMS_ITS | Encounter Summary ---
Author Organization [facility] er Address [address] [place] [address] Care Team Providers Care Tank Carpenter Name Role Phone Thu Bhagat PA-C Primary Care Provider [phone] Reason for Visit * Reason Comments Wound Care * Consultation (Routine) - Authorized Specialty Diagnoses / Procedures Referred By Contac t Referred To Contact Wound Care Diagnoses Cellulitis, unspecified Procedures Wound Clinic Thu Bhagat PA-C [address] [place] [phone] [facility] [address] [place] [address] Referral ID Status Reason Start Date Expiration Date V isits Requested Visits Authorized [id number] Authorized 06/17/2024 12/15/2024 99 99 Encounter Details Date Type Department Care Team (Late st Contact Info) Description 07/14/2024 3:15 PM CDT Office Visit [facility] Hospital Wound Care [address] [place] [address] [phone] [place] [address] [place] [phone] Diabetic ulcer of right midfoot associated [...] your doctor or pharmacy? Never 06/06/2024 [facility] Utilities Answer Date Recorded In the past [...] often do you attend [facility] or [facility]? More than 4 times [...] Recorded Patient Health Questionnaire-2 Score 0 06/06/2024 [facility]at [facility] - Occupational Stress Questionnaire Answer Date [...] time in the past 12 m [facility], were you homeless [...] * Patient Instructions* Valeria Tobar RN - 07/14/2024 3:15 PM CDT Keep dressings clean and dry; call the wound clinic with any questions or concerns. documented in this encounter Progress Notes * Vilma Neves MD - 07/14/2024 3:15 PM CDT Advanced [facility] Visit Type: Established patient Subjective Francisco Javier Fung is a 69 y.o. male who presents today for wound check. Patient is being seen for right foot DFU Kenney 3 after undergoing incision and drainage in the OR with second toe amputation with podiatry 2023. He continues to offload with a wheelchair and is wearing a work boot. He maintains glycemic control. He is also using an Aircast for ADLs. No fevers or chills. He maintains improved glycemic control since hospital discharge. Patient started with oxygen adjuvant therapy this week and is doing well. He is supposed to call his PCP regarding an ENT referral for cerumen impaction bilaterally. Otherwise no shortness of breath, headaches, sinus pressure. The following portions of the patient's history were reviewed by a provider in this encounter and updated as appropriate: Tobacco Allergies Meds Problems Med Hx Surg Hx Fam Hx Objective Visit Vitals Smoking Status Never Wound: Wound #1 right dorsal foot ulceration down to muscle tendon, slight increased granulation, clear periwound, decreased slough, central tunneling down to midfoot muscle with slough, overall slightly improved Procedure Note: Wound #1 Time-out: 1532 Grafting: Kerecis 4 cm?? micronized, 100% utilized, 9.12 cm?? 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 micronized, 100% utilized, 9.12 cm?? total grafted Dressing: Promogran, Mepilex plan to resume negative pressure wound therapy next week Off-loading: Wheelchair Compression: Stockinette 2 layer Tubigrip. ANNA previously ordered and awaiting results Antibiotics: Per infectious disease Glucose optimization: Since hospital discharge, improved glycemic control. Recommend decreasing carbohydrate intake and working with PCP Details of today???s visit [...] st Contact Info) Description 08/24/2024 8:30 AM JOCKEY ROOM CUSTODIAN Office Visit [facility] [address] [place] [address] 08/24/2024 11:30 AM JOCKEY ROOM CUSTODIAN Office Visit Podiatry [address] [place] [address] Angel Coombs, DPM [address] [place] [phone] 08/25/2024 8:30 AM JOCKEY ROOM CUSTODIAN Office Visit [facility] Hospital Wound Care [address] [place] [phone] 08/26/2024 8:30 AM JOCKEY ROOM CUSTODIAN Office Visit [facility] Wound Care [address] [place] [address] 08/27/2024 8:30 AM JOCKEY ROOM CUSTODIAN Office Visit [facility] Wound Care [address] [place] [phone] 08/27/2024 11:00 AM JOCKEY ROOM CUSTODIAN Office Visit [facility] W[facility] Care [address] [place] [address] Vilma Neves MD [address] [place] [phone] 08/28/2024 8:30 AM JOCKEY ROOM CUSTODIAN Office Visit [facility] Wound Care [address] [place] [phone] 08/31/2024 8:30 AM JOCKEY ROOM CUSTODIAN Office Visit [facility] Wound Care [address] [place] [address] 17209 09/01/2024 8:30 AM JOCKEY ROOM CUSTODIAN Office Visit [facility] W[facility] Care [address] [place] [phone] 09/02/2024 8:30 AM JOCKEY ROOM CUSTODIAN Office Visit [facility] Wound Care [address] [place] [phone] 09/03/2024 8:30 AM JOCKEY ROOM CUSTODIAN Office Visit [facility] W[facility] Care [address] [place] [address] [phone] 09/03/2024 11:00 AM JOCKEY ROOM CUSTODIAN Office Visit [facility] W[facility] [address] [place] [address] Vilma Neves MD [address] [place] [phone] 09/03/2024 11:00 AM JOCKEY ROOM CUSTODIAN Office Visit [facility] [address] [place] [phone] Amairani Sigala MD [address] [place] [phone] 09/04/2024 8:30 AM JOCKEY ROOM CUSTODIAN Office Visit [facility] [address] [place] [address] [phone] 09/07/2024 8:30 AM JOCKEY ROOM CUSTODIAN Office Visit [facility] [address] [place] [address] [phone] 09/08/2024 8:30 AM JOCKEY ROOM CUSTODIAN Office Visit [facility] [address] [place] [address] 09645 09/09/2024 8:30 AM JOCKEY ROOM CUSTODIAN Office Visit [facility] [address] [place] [address] [phone] 09/10/2024 8:30 AM JOCKEY ROOM CUSTODIAN Office Visit [facility] [address] [place] [address] [phone] 09/10/2024 11:20 AM JOCKEY ROOM CUSTODIAN Office Visit [facility] [address] [place] [address] [phone] Vilma Neves MD [address] [place] [phone] 09/11/2024 8:30 AM JOCKEY ROOM CUSTODIAN Office Visit [facility] [address] [place] [address] [phone] 09/14/2024 8:30 AM JOCKEY ROOM CUSTODIAN Office Visit [facility] Wound Care [address] [place] [address] [phone] 09/15/2024 8:30 AM JOCKEY ROOM CUSTODIAN Office Visit [facility] [address] [place] [address] [phone] documented as of this encounter Visit Diagnoses Diagnosis Diabetic ulcer of right midfoot associated with type 2 diabetes mellitus, 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
--- OUTSIDE RECORDS SUMMARY | 2024-08-21 10:23 | XMS_ITS | Encounter Summary ---
Author Organization [facility] er Address [address] [place] [address] Care Team Providers Care Archaeology Professor Name Role Phone Thu Bhagat PA-C Primary Care Provider [phone] Encounter Details Date Type Department Care Team ([facility] st Contact Info) Description 07/07/2024 Clinical Support [facility] [address] [place] [address] Marge Wan, PharmD [address] [place] [phone] Social History Tobacco Use Types Packs/Day Years [...] In the past 12 months has e [employer], gas, oil, or water [employer] threatened to shut off services in your [...] How often do you attend chur or adventism services? More than 4 times [...] Recorded Patient Health Questionnaire-2 Score 0 06/06/2024 [facility] [place] [facility] Occup[facility] ional [facility] - Occupational Stress [...] time in the past 12 m [facility], were you homeless or living in a [...] as of this encounter Progress Notes * Marge Wan, PharmD - 07/07/2024 3:51 PM CDT Images from the original note were not included. OPAT Team Note This patient has been enrolled in outpatient antimicrobial therapy (OPAT) and is being managed by the OPAT team. Patient: Francisco Javier Fung OPAT Enrollment Status: Home Infusion OPAT Labs Due: 07/14/24 OPAT End Date: 07/20/24 Micro Results: Microbiology Results No results found for the last 168 hours. Lab Results: Results Collected Updated Procedure Result Status 07/07/2024 14107/07/2024 1537 Comprehensive metabolic panel [[id number]] (Abnormal) Blood, Venous Final result Component Value Units Total Protein 7.2 g/dL Albumin, Serum 3.9 g/dL Total Bilirubin 1.5 mg/dL AST 25 U/L Alkaline Phosphatase 58 U/L ALT (SGPT) 19 U/L Sodium 140 mEq/L Potassium 4.0 mEq/L Chloride 106 mEq/L CO2 24 mmol/L BUN 16 mg/dL Creatinine 1.20 mg/dL Glucose 89 mg/dL Calcium, Total,S 9.5 mg/dL Anion Gap 10 Fasting? No 07/07/2024 14107/07/2024 1432 CBC auto differential [[id number]] Blood, Venous Final result Component Value Units [...] 06/30/2024 1356 06/30/2024 1622 Comprehensive metabolic panel [[id number]] (Abnormal) Blood, Venous Final result Component Value [...] 06/30/2024 1356 06/30/2024 1409 CBC auto differential [[id number]] (Abnormal) Blood, Venous Final result Component Value [...] 06/23/2024 1253 06/23/2024 1332 Comprehensive metabolic panel [[id number]] (Abnormal) Blood, Venous Final result Component Value [...] 06/23/2024 1253 06/23/2024 1302 CBC auto differential [[id number]] (Abnormal) Blood, Venous Final result Component Value [...] 06/17/2024 0550 06/17/2024 0635 Basic metabolic panel [[id number]] (Abnormal) Blood, Venous Final result Component Value Units Sodium 136 mEq/L Potassium 4.1 mEq/L Chloride 101 mEq/L CO2 32 mmol/L Creatinine 1.14 mg/dL BUN 22 mg/dL Glucose 135 mg/dL Calcium, Total,S 8.9 mg/dL Anion Gap 3 Fasting? Yes 06/17/2024 0550 06/17/2024 0618 CBC ([facility] [employer]) [[id number]] (Abnormal) Blood, Venous Final result Component Value Units WBC 10.5 K/uL RBC 5.18 M/uL Hemoglobin 15.2 g/dL Hematocrit 47.8 % Platelets 376 K/uL MCV 92.3 fL MCH 29.3 pg MCHC 31.8 g/dL RDW 14.6 % NRBC %, Automated 0 % NRBC Absolute, Autmated 0.00 K/uL 06/16/2024 0608 06/16/2024 0826 Basic metabolic panel [[id number]] (Abnormal) Blood, Venous Final result Component Value Units Sodium 136 mEq/L Potassium 4.3 mEq/L Chloride 100 mEq/L CO2 30 mmol/L Creatinine 1.13 mg/dL BUN 20 mg/dL Glucose 116 mg/dL Calcium, Total,S 9.1 mg/dL Anion Gap 6 Fasting? Unknown 06/16/2024 0608 06/16/2024 0652 CBC ([employer]) [[id number]] Blood, Venous Final result Component Value Units WBC 10.2 K/uL RBC 5.36 M/uL Hemoglobin 15.9 g/dL Hematocrit 48.9 % Platelets 369 K/uL MCV 91.2 fL MCH 29.7 pg MCHC 32.5 g/dL RDW 14.7 % NRBC %, Automated 0 % NRBC Absolute, Autmated 0.00 K/uL 06/15/2024 0600 06/15/2024 0617 Basic metabolic panel [[id number]] (Abnormal) Blood, Venous Final result Component Value Units Sodium 136 mEq/L Potassium 4.0 mEq/L Chloride 100 mEq/L CO2 30 mmol/L Creatinine 1.05 mg/dL BUN 17 mg/dL Glucose 117 mg/dL Calcium, Total,S 8.8 mg/dL Anion Gap 6 Fasting? Yes 06/15/2024 0600 06/15/2024 0606 CBC ([employer]) [[id number]] (Abnormal) Blood, Venous Final result Component Value Units WBC 11.5 K/uL RBC 5.04 M/uL Hemoglobin 14.9 g/dL Hematocrit 46.2 % Platelets 358 K/uL MCV 91.7 fL MCH 29.6 pg MCHC 32.3 g/dL RDW 14.9 % NRBC %, Automated 0 % NRBC Absolute, Autmated 0.00 K/uL 06/14/2024 0545 06/14/2024 0628 Basic metabolic panel [[id number]] (Abnormal) Blood, Venous Final result Component Value Units Sodium 138 mEq/L Potassium 4.2 mEq/L Chloride 101 mEq/L CO2 31 mmol/L Creatinine 1.03 mg/dL BUN 20 mg/dL Glucose 142 mg/dL Calcium, Total,S 8.9 mg/dL Anion Gap 6 Fasting? Yes 06/14/2024 0545 06/14/2024 0621 CBC ([facility]) [[id number]] (Abnormal) Blood, Venous Final result Component Value Units WBC 12.1 K/uL RBC 5.04 M/uL Hemoglobin 15.1 g/dL Hematocrit 47.3 % Platelets 396 K/uL MCV 93.8 fL MCH 30.0 pg MCHC 31.9 g/dL RDW 15.2 % NRBC %, Automated 0 % NRBC Absolute, Autmated 0.00 K/uL 06/13/2024 0500 06/13/2024 0548 Basic metabolic panel [[id number]] (Abnormal) Blood, Venous Final result Component Value Units Sodium 135 mEq/L Potassium 4.0 mEq/L Chloride 102 mEq/L CO2 29 mmol/L Creatinine 1.21 mg/dL BUN 26 mg/dL Glucose 188 mg/dL Calcium, Total,S 8.7 mg/dL Anion Gap 4 Fasting? Yes 06/13/2024 0500 06/13/2024 0533 CBC ([facility]) [[id number]] (Abnormal) Blood, Venous Final result Component Value Units WBC 16.2 K/uL RBC 5.00 M/uL Hemoglobin 14.8 g/dL Hematocrit 46.7 % Platelets 382 K/uL MCV 93.4 fL MCH 29.6 pg MCHC 31.7 g/dL RDW 15.2 % NRBC %, Automated 0 % NRBC Absolute, Autmated 0.00 K/uL 06/12/2024 0540 06/12/2024 0615 Basic metabolic panel [[id number]] (Abnormal) Blood, Venous Final result Component Value Units Sodium 137 mEq/L Potassium 4.2 mEq/L Chloride 103 mEq/L CO2 29 mmol/L Creatinine 1.13 mg/dL BUN 25 mg/dL Glucose 172 mg/dL Calcium, Total,S 9.2 mg/dL Anion Gap 5 Fasting? Yes 06/12/2024 0540 06/12/2024 0559 CBC ([facility]) [[id number]] (Abnormal) Blood, Venous Final result Component Value Units WBC 14.4 K/uL RBC 5.22 M/uL Hemoglobin 15.5 g/dL Hematocrit 48.2 % Platelets 396 K/uL MCV 92.3 fL MCH 29.7 pg MCHC 32.2 g/dL RDW 15.1 % NRBC %, Automated 0 % NRBC Absolute, Autmated 0.00 K/uL 06/11/2024 0610 06/11/2024 0710 Basic metabolic panel [[id number]] (Abnormal) Blood, Venous Final result Component Value Units Sodium 138 mEq/L Potassium 4.2 mEq/L Chloride 104 mEq/L CO2 25 mmol/L Creatinine 1.20 mg/dL BUN 24 mg/dL Glucose 173 mg/dL Calcium, Total,S 9.5 mg/dL Anion Gap 9 Fasting? Yes 06/11/2024 0610 06/11/2024 0653 CBC ([facility]) [[id number]] (Abnormal) Blood, Venous Final result Component Value Units WBC 14.5 K/uL RBC 5.09 M/uL Hemoglobin 15.3 g/dL Hematocrit 46.8 % Platelets 389 K/uL MCV 91.9 fL MCH 30.1 pg MCHC 32.7 g/dL RDW 15.3 % NRBC %, Automated 0 % NRBC Absolute, Autmated 0.00 K/uL 06/10/2024 0554 06/10/2024 0613 Basic metabolic panel [[id number]] (Abnormal) Blood, Venous Final result Component Value Units Sodium 138 mEq/L Potassium 4.2 mEq/L Chloride 107 mEq/L CO2 24 mmol/L Creatinine 1.23 mg/dL BUN 24 mg/dL Glucose 139 mg/dL Calcium, Total,S 9.3 mg/dL Anion Gap 7 Fasting? Yes 06/10/2024 0554 06/10/2024 0607 CBC ([facility]) [[id number]] (Abnormal) Blood, Venous Final result Component Value Units WBC 15.2 K/uL RBC 5.00 M/uL Hemoglobin 15.2 g/dL Hematocrit 47.1 % Platelets 347 K/uL MCV 94.2 fL MCH 30.4 pg MCHC 32.3 g/dL RDW 15.6 % NRBC %, Automated 0 % NRBC Absolute, Autmated 0.00 K/uL 06/09/2024 1138 06/09/2024 1414 Vancomycin [[id number]] Blood, Venous Final result Component Value Units Vancomycin 22.9 mcg/mL Last Dose Date 06/09/2024 Last Dose Time 1010 AM 06/09/2024 0605 06/09/2024 0649 Basic metabolic panel [[id number]] (Abnormal) Blood, Venous Final result Component Value Units Sodium 137 mEq/L Potassium 4.2 mEq/L Chloride 108 mEq/L CO2 24 mmol/L Creatinine 1.21 mg/dL BUN 29 mg/dL Glucose 113 mg/dL Calcium, Total,S 9.2 mg/dL Anion Gap 5 Fasting? Yes 06/09/2024 0605 06/09/2024 0637 CBC ([facility]) [[id number]] (Abnormal) Blood, Venous Final result Component Value Units WBC 13.8 K/uL RBC 5.05 M/uL Hemoglobin 14.9 g/dL Hematocrit 47.0 % Platelets 334 K/uL MCV 93.1 fL MCH 29.5 pg MCHC 31.7 g/dL RDW 15.4 % NRBC %, Automated 0 % NRBC Absolute, Autmated 0.00 K/uL 06/08/2024 0605 06/08/2024 0707 Basic metabolic panel [[id number]] (Abnormal) Blood, Venous Final result Component Value Units Sodium 138 mEq/L Potassium 3.9 mEq/L Chloride 109 mEq/L CO2 21 mmol/L Creatinine 1.33 mg/dL BUN 36 mg/dL Glucose 84 mg/dL Calcium, Total,S 8.9 mg/dL Anion Gap 8 Fasting? Yes 06/08/2024 0605 06/08/2024 0658 CBC ([facility]) [[id number]] (Abnormal) Blood, Venous Final result Component Value Units WBC 14.2 K/uL RBC 4.80 M/uL Hemoglobin 14.5 g/dL Hematocrit 44.6 % Platelets 298 K/uL MCV 92.9 fL MCH 30.2 pg MCHC 32.5 g/dL RDW 15.1 % NRBC %, Automated 0 % NRBC Absolute, Autmated 0.00 K/uL 06/06/2024 1000 06/08/2024 0229 Hemoglobin A1c [[id number]] (Abnormal) Blood, Venous Final result Component Value Units Hemoglobin A1C 9.0 % A1C 06/07/2024 0513 06/07/2024 0702 Vancomycin [[id number]] Blood, Venous Final result Component Value Units Vancomycin 9.6 mcg/mL Last Dose Date 06/06/2024 Last Dose Time 1040 06/07/2024 0513 06/07/2024 0546 Basic metabolic panel [[id number]] (Abnormal) Blood, Venous Final result Component Value Units Sodium 138 mEq/L Potassium 4.0 mEq/L Chloride 107 mEq/L CO2 22 mmol/L Creatinine 1.81 mg/dL BUN 55 mg/dL Glucose 125 mg/dL Calcium, Total,S 9.1 mg/dL Anion Gap 9 Fasting? Yes 06/07/2024 0513 06/07/2024 0539 CBC ([facility]) [[id number]] (Abnormal) Blood, Venous Final result Component Value Units WBC 16.4 K/uL RBC 4.95 M/uL Hemoglobin 14.8 g/dL Hematocrit 45.4 % Platelets 281 K/uL MCV 91.7 fL MCH 29.9 pg MCHC 32.6 g/dL RDW 15.1 % NRBC %, Automated 0 % NRBC Absolute, Autmated 0.00 K/uL 06/06/2024 1000 06/06/2024 1119 Procalcitonin [[id number]] (Abnormal) Blood, Venous Final result Component Value Units Procalcitonin 1.34 ng/mL 06/06/2024 0955 06/06/2024 1034 Covid-19, Gutierrez ID Now, PCR symptomatic [[id number]] Swab from Nasal Final result Component Value Covid Source Nasal Covid-19, ID Now PCR NEGATIVE 06/06/2024 1000 06/06/2024 1032 C-reactive protein [[id number]] (Abnormal) Blood, Venous Final result Component Value Units CRP >320.0 mg/L 06/06/2024 1000 06/06/2024 1030 CBC auto differential [[id number]] (Abnormal) Blood, Venous Final result Component Value [...] 0.00 K/uL 06/06/2024 1000 06/06/2024 1030 Morphology [[id number]] Final result Component Value Slide Review PERFORMED RBC Morphology NORMAL PLT Morphology ADEQUATE 06/06/2024 1000 06/06/2024 1028 Basic metabolic panel [[id number]] (Abnormal) Blood, Venous Final result Component Value Units Sodium 134 mEq/L Potassium 4.5 mEq/L Chloride 98 mEq/L CO2 24 mmol/L Creatinine 2.61 mg/dL BUN 78 mg/dL Glucose 254 mg/dL Calcium, Total,S 9.6 mg/dL Anion Gap 12 Fasting? Unknown 06/06/2024 1000 06/06/2024 1028 Magnesium [[id number]] (Abnormal) Blood, Venous Final result Component Value Units Magnesium 2.5 mg/dL 06/06/2024 1000 06/06/2024 1020 Lactate, plasma [[id number]] Blood, Venous Final result Component Value Units Lactate 1.3 mmol/L 06/06/2024 1000 06/06/2024 1017 APTT [[id number]] (Abnormal) Blood, Venous Final result Component Value Units aPTT 40 seconds 06/06/2024 1000 06/06/2024 1017 Protime-INR [[id number]] (Abnormal) Blood, Venous Final result Component Value Units Protime 19.0 seconds INR 1.6 06/06/2024 1000 06/06/2024 1014 Blood gas, venous [[id number]] Blood, Venous Final result Component Value Units pH, Jorge 7.37 pCO2, Jorge 44 mm Hg HCO3, Venous 25.4 mmol/L Base Excess/Deficit Venous -0.2 mmol/L Current Indication: Skin-Soft tissue infection Overall Recommendation: The patient is currently taking Ertapenem . Per antimicrobial stewardship guidelines, pharmacy recommends Francisco Javier Fung continue with current Therapy. SCR stable at 1.2. Total bili increased again from 1.1 to 1.5. AST, ALT, and Alk phos stable/trended down. WBC within normal range at 8.6. Pharmacy took the following actions: No changes made Additional Recommendations: Submitted by: Marge Wan, Nathaly documented in this encounter Plan of Treatment Upcoming Encounters Date Type Department Care Team (Late st Contact Info) Description 08/24/2024 8:30 AM MACHINE OVERHAULER Office Visit [facility] W[facility] [address] [place] [phone] 08/24/2024 11:30 AM MACHINE OVERHAULER Office Visit [facility] [address] [address] Angel Coombs, DPM [address] [place] [phone] 08/25/2024 8:30 AM MACHINE OVERHAULER Office Visit [facility] W[facility] [address] [place] [phone] 08/26/2024 8:30 AM MACHINE OVERHAULER Office Visit [facility] [address] [place] [address] 08/27/2024 8:30 AM MACHINE OVERHAULER Office Visit [facility] W[facility] Care [address] [place] [phone] 08/27/2024 11:00 AM MACHINE OVERHAULER Office Visit [facility] Care [address] [place] [address] Vilma Neves MD [address] [place] [phone] 08/28/2024 8:30 AM MACHINE OVERHAULER Office Visit [facility] [address] [place] [phone] 08/31/2024 8:30 AM MACHINE OVERHAULER Office Visit [facility] [address] [place] [address] 09/01/2024 8:30 AM MACHINE OVERHAULER Office Visit [facility] [address] [place] [phone] 09/02/2024 8:30 AM MACHINE OVERHAULER Office Visit [facility] W[facility] [address] [place] [phone] 09/03/2024 8:30 AM MACHINE OVERHAULER Office Visit [facility] W[facility] Care [address] [place] [phone] 09/03/2024 11:00 AM MACHINE OVERHAULER Office Visit [facility] W[facility] Care [address] [place] [address] Vilma Neves MD [address] [place] [phone] 09/03/2024 11:00 AM MACHINE OVERHAULER Office Visit [facility] Infectious Disease [address] [place] [phone] Amairani Sigala MD [address] [place] [phone] 09/04/2024 8:30 AM MACHINE OVERHAULER Office Visit [facility] [address] [place] [phone] 09/07/2024 8:30 AM MACHINE OVERHAULER Office Visit [facility] Care [address] [place] [phone] 09/08/2024 8:30 AM MACHINE OVERHAULER Office Visit [facility] Wound Care [address] [place] [phone] 09/09/2024 8:30 AM MACHINE OVERHAULER Office Visit [facility] Wound Care [address] [place] [phone] 09/10/2024 8:30 AM MACHINE OVERHAULER Office Visit [facility] Wound Care [address] [place] [phone] 09/10/2024 11:20 AM MACHINE OVERHAULER Office Visit [facility] W[facility] Care [address] [place] [phone] Vilma Neves MD [address] [place] [address] [phone] 09/11/2024 8:30 AM MACHINE OVERHAULER Office Visit [facility] Wound Care [address] [place] [address] 19491 09/14/2024 8:30 AM MACHINE OVERHAULER Office Visit [facility] W[facility] Care [address] [place] [phone] 09/15/2024 8:30 AM MACHINE OVERHAULER Office Visit [facility] Wound Care [address] [place] [phone] documented as of this encounter Visit Diagnoses Not on filedocumented in this encounter Additional Health Concerns Infection Onset Date Last Indicated Resolved Time MSSA 06/06/2024 06/12/2024 07/13/2024 9:58 AM CDT documented as of this encounter Care Teams Archaeology Professor Relationship Specialty Start Date End Date Thu Bhagat PA-C [address] [place] [phone] PCP - General 11/26/22 documented as of this encounter
--- OUTSIDE RECORDS SUMMARY | 2024-08-21 10:23 | XMS_ITS | Encounter Summary ---
Author Organization [facility] er Address [address] [place] [id number] Care Team Providers Care Patient Intake Representative Name Role Phone Thu Bhagat PA-C Primary Care Provider Reason for Visit * Reason Comments OP Infusion * Consultation (Routine) - Canceled Specialty Diagnoses / Procedures Referred By Kaley t Referred To Contact Infusion Therapy Diagnoses Infection of right foot Pina Méndez MD [address] [place] [phone] [facility] Infusion Therapy [address] [place] [phone] Referral ID Status Reason Start Date Expiration Date Visits Requested Visits Authorized [id number] Canceled Specialty Services Required 06/17/2024 10/16/2024 99 99 Encounter Details Date Type Department Care Team ([facility] st Contact Info) Description 07/07/2024 2:00 PM CDT Infusion [facility] Infusion Therapy [address] [place] [phone] Infection of right foot (Primary Dx) [...] from your doctor or pharmacy? Never 06/06/2024 [facility] Utilities Answer Date Recorded In the [...] often do you attend chur ch or restorationist services? More than 4 times per year [...] Health Questionnaire-2 Score 0 06/06/2024 [facility] - Occupational Stress Questionnaire Answer Date [...] any time in the past 12 m [facility], were you homeless or living [...] Sign Reading Time Taken Comments Blood Pressure 108/63 07/07/2024 2:13 PM CDT Pulse 70 07/07/2024 2:13 PM CDT Temperature 36.5 ??C (97.7 ??F) 07/07/2024 2:13 PM CD T Respiratory Rate 18 07/07/2024 2:13 PM CDT Oxygen Saturation 97% 07/07/2024 2:13 PM CDT Inhaled Oxygen Concentration - - Weight - - Height - - Body Mass Index - - documented in this encounter Plan of Treatment Upcoming Encounters Date Type Department Care Team (Late st Contact Info) Description 08/24/2024 8:30 AM GEAR ROOM KEEPER Office Visit [facility] Wound Care [address] [place] [phone] 08/24/2024 11:30 AM GEAR ROOM KEEPER Office Visit [facility] [address] [place] [phone] Angel Coombs, DPM [address] [place] [phone] 08/25/2024 8:30 AM GEAR ROOM KEEPER Office Visit [facility] Wound Care [address] [place] [phone] 08/26/2024 8:30 AM GEAR ROOM KEEPER Office Visit [facility] Wound Care [address] [place] [phone] 08/27/2024 8:30 AM GEAR ROOM KEEPER Office Visit [facility] Wound Care [address] [place] [phone] 08/27/2024 11:00 AM GEAR ROOM KEEPER Office Visit [facility] Wound Care [address] [place] [phone] Vilma Neves MD [address] [place] [phone] 08/28/2024 8:30 AM GEAR ROOM KEEPER Office Visit [facility] W[facility] Care [address] [place] [phone] 08/31/2024 8:30 AM GEAR ROOM KEEPER Office Visit [facility] Wound Care [address] [place] [address] 09/01/2024 8:30 AM GEAR ROOM KEEPER Office Visit [facility] Wound Care [address] [place] [phone] 09/02/2024 8:30 AM GEAR ROOM KEEPER Office Visit [facility] Wound Care [address] [place] [address] 09/03/2024 8:30 AM GEAR ROOM KEEPER Office Visit [facility] Wound Care [address] [place] [phone] 09/03/2024 11:00 AM GEAR ROOM KEEPER Office Visit [facility] Wound Care [address] [place] [phone] Vilma Neves MD [address] [place] [phone] 09/03/2024 11:00 AM GEAR ROOM KEEPER Office Visit [facility] Infectious Disease [address] [place] [phone] Amairani Sigala MD [address] [place] [address] [phone] 09/04/2024 8:30 AM GEAR ROOM KEEPER Office Visit [facility] Wound Care [address] [place] [phone] 09/07/2024 8:30 AM GEAR ROOM KEEPER Office Visit [facility] Wound Care [address] [place] [phone] 09/08/2024 8:30 AM GEAR ROOM KEEPER Office Visit [facility] Wound Care [address] [place] [phone] 09/09/2024 8:30 AM GEAR ROOM KEEPER Office Visit [facility] Wound Care [address] [place] [phone] 09/10/2024 8:30 AM GEAR ROOM KEEPER Office Visit [facility] Wound Care [address] [place] [phone] 09/10/2024 11:20 AM GEAR ROOM KEEPER Office Visit [facility] Wound Care [address] [place] [phone] Vilma Neves MD [address] [place] [phone] 09/11/2024 8:30 AM GEAR ROOM KEEPER Office Visit [facility] Wound Care [address] [place] [phone] 09/14/2024 8:30 AM GEAR ROOM KEEPER Office Visit [facility] Wound Care [address] [place] [phone] 09/15/2024 8:30 AM GEAR ROOM KEEPER Office Visit [facility] Wound Care [address] [place] [phone] documented as of this encounter Procedures Procedure Name Priority Date/Time Associated Diagnosis Comments ESTIMATED GLOMERULAR FILTRATION RATE (EGFR) Routine 07/07/2024 2:11 PM CDT Infection of right foot CBC WITH AUTO DIFFERENTIAL Routine 07/07/2024 2:11 PM CDT Infection of right foot COMPREHENSIVE METABOLIC PANEL Routine 07/07/2024 2:11 PM CDT Infection of right foot documented in this encounter Results * Estimated Glomerular Filtration Rate (eGFR) (07/07/2024 2:11 PM CDT) Estimated Glomerular Filtration Rate (eGFR) >60 07/07/2024 3:37 PM CDT [facility] Comment: GFR calculated from serum creatinine value Chronic Kidney Disease less than 60 mL/min/1.73 m2 Kidney Failure less than 15 mL/min/1.73 m2 Note: effective 10/17/2022: 2020 CKD-EPI Equation used 07/07/2024 2:11 PM CDT 07/07/2024 2:11 PM CDT Pina Méndez MD LAB BLOOD ORDERABLES [facility] [address] [place] [address] * (ABNORMAL) Comprehensive metabolic panel (07/07/2024 2:11 PM CDT) Total Protein 7.2 6.3 - 8.2 g/dL 07/07/2024 3:37 PM [facility] Albumin, Serum 3.9 3.5 - 5.0 g/dL 07/07/2024 3:37 PM [facility] Total Bilirubin 1.5(H) 0.1 - 1.0 mg/dL 07/07/2024 3:37 PM [facility] AST 25 8 - 48 U/L 07/07/2024 3:37 PM [facility] Alkaline Phosphatase 58 38 - 128 U/L 07/07/2024 3:37 PM [facility] ALT (SGPT) 19 0 - 49 U/L 07/07/2024 3:37 PM [facility] Sodium 140 135 - 145 mEq/L 07/07/2024 3:37 PM [facility] Potassium 4.0 3.5 - 5.1 mEq/L 07/07/2024 3:37 PM [facility] Chloride 106 98 - 107 mEq/L 07/07/2024 3:37 PM [facility] CO2 24 22 - 31 mmol/L 07/07/2024 3:37 PM [facility] BUN 16 5 - 25 mg/dL 07/07/2024 3:37 PM [facility] Creatinine 1.20 0.60 - 1.40 mg/dL 07/07/2024 3:37 PM [facility] Glucose 89 70 - 100 mg/dL 07/07/2024 3:37 PM [facility] Calcium, Total,S 9.5 8.4 - 10.2 mg/dL 07/07/2024 3:37 PM [facility] Anion Gap 10 4 - 13 07/07/2024 3:37 PM T [facility] Comment: The anion gap is calculated with the following formula: AGAP = Na ? (Cl + CO2). Fasting? No 07/07/2024 2:15 PM [facility] Blood (Blood, Venous) 07/07/2024 2:11 PM CDT 07/07/2024 2:15 PM CDT Pina Méndez MD LAB BLOOD ORDERABLES [facility] [address] [place] [address] * CBC auto differential (07/07/2024 2:11 PM CDT) WBC 8.6 3.5 - 10.5 K/uL 07/07/2024 2:32 PM [facility] RBC 5.36 4.30 - 5.70 M/uL 07/07/2024 2:32 PM [facility] Hemoglobin 15.9 13.5 - 17.5 g/dL 07/07/2024 2:32 PM [facility] Hematocrit 48.9 38.0 - 50.0 % 07/07/2024 2:32 PM [facility] Platelets 232 150 - 450 K/uL 07/07/2024 2:32 PM [facility] MCV 91.2 81.2 - 95.1 fL 07/07/2024 2:32 PM [facility] MCH 29.7 26.0 - 32.0 pg 07/07/2024 2:32 PM [facility] MCHC 32.5 32.0 - 36.0 g/dL 07/07/2024 2:32 PM [facility] RDW 15.1 11.8 - 15.6 % 07/07/2024 2:32 PM [facility] NRBC %, Automated 0 % 07/07/2024 2:32 PM [facility] NRBC Absolute, Autmated 0.00 K/uL 07/07/2024 2:32 PM [facility] Comment: 0-4 Days: 0.01 -0.02 >=5 Days: 0.00 Neutrophils 72.8 % 07/07/2024 2:32 PM [facility] Absolute Neutrophils 6.3 1.7 - 7.0 K/uL 07/07/2024 2:32 PM [facility] Lymphocytes % 15.9 % 07/07/2024 2:32 PM [facility] Absolute Lymphocytes 1.4 0.9 - 2.9 K/uL 07/07/2024 2:32 PM [facility] Monocytes % 7.5 % 07/07/2024 2:32 PM [facility] Monocytes Absolute 0.6 0.3 - 0.9 K/uL 07/07/2024 2:32 PM [facility] Eosinophils 2.7 % 07/07/2024 2:32 PM [facility] Absolute Eosinophils 0.2 0.1 - 0.5 K/uL 07/07/2024 2:32 PM [facility] Basophils 0.6 % 07/07/2024 2:32 PM [facility] Absolute Basophils 0.1 0.0 - 0.1 K/uL 07/07/2024 2:32 PM [facility] Immature Leukocytes 0.5 % 07/07/2024 2:32 PM [facility] Immature Leukocytes Absolute 0.04 0.00 - 0.04 K/uL 07/07/2024 2:32 PM [facility] Blood (Blood, Venous) 07/07/2024 2:11 PM CDT 07/07/2024 2:15 PM T Pina Méndez MD LAB BLOOD ORDERABLES [facility] [address] [place] [address] documented in this encounter Visit Diagnoses Diagnosis Infection of right foot- Primary documented in this encounter Additional Health Concerns Infection Onset Date Last Indicated Resolved Time MSSA 06/06/2024 06/12/2024 07/13/2024 9:58 AM CDT documented as of this encounter Care Teams Patient Intake Representative Relationship Specialty Start Date End Date Thu hBagat PA-C [address] [place] [phone] PCP - General 11/26/22 documented as of this encounter
--- OUTSIDE RECORDS SUMMARY | 2024-08-21 10:23 | XMS_ITS | Encounter Summary ---
Author Organization [facility] er Address [address] [place] [address] Care Team Providers Care Transport Aide Name Role Phone Thu Bhagat PA-C Primary Care Provider [phone] Reason for Visit * Consultation (Routine) - Authorized Specialty Diagnoses / Procedures Referred By Conteufemia t Referred To Contact Family Medicine / Lab Diagnoses lab Procedures LAB [facility] [address] [place] [phone] [facility] [address] [place] [address] 38687 Referral ID Status Reason Start Date Expiration Date V isits Requested Visits Authorized [id number] Authorized 07/10/2024 12/15/2024 1 1 Encounter Details Date Type Department Care Team (Late st Contact Info) Description 07/10/2024 12:00 PM CDT Lab [facility] [address] [place] [phone] Diabetic ulcer of right midfoot associated [...] from your doctor or pharmacy? Never 06/06/2024 [facility] Utilities Answer Date Recorded In the past 12 months has th e electric, gas, oil, or water [employer] threatened to shut off services in your [...] often do you attend chur ch or zoroastrianism services? More than 4 times per year 06/06/2024 Do you belong to any clubs o r organizations such as hindu groups, unions, fraternal or athletic groups, or [...] 0 06/06/2024 [facility] - Occupational Stress Questionnaire Answer Date Recorded [...] as of this encounter Miscellaneous Notes * Result Encounter Note - Valeria Tobar RN - 07/10/2024 12:00 PM CDT Message relayed to patient during HBO appointment. documented in this encounter Plan of Treatment Upcoming Encounters Date Type Department Care Team (Late st Contact Info) Description 08/24/2024 8:30 AM AUTO MACHINIST Office Visit [facility] Wound Care [address] [place] [address] 08/24/2024 11:30 AM AUTO MACHINIST Office Visit Podiatry [address], [place] [address] Angel Coombs, DPM [address] [place] [phone] 08/25/2024 8:30 AM AUTO MACHINIST Office Visit [facility] Wound Care [address] [place] [address] 08/26/2024 8:30 AM AUTO MACHINIST Office Visit [facility] Wound Care [address] [place] [address] [phone] 08/27/2024 8:30 AM AUTO MACHINIST Office Visit [facility] Wound Care [address] [place] [address] [phone] 08/27/2024 11:00 AM AUTO MACHINIST Office Visit [facility] W[facility] Care [address] [place] [address] [place] [address] [place] [address] [phone] 08/28/2024 8:30 AM AUTO MACHINIST Office Visit [facility] Wound Care [address] [place] [phone] 08/31/2024 8:30 AM AUTO MACHINIST Office Visit [facility] Wound Care [address] [place] [address] [phone] 09/01/2024 8:30 AM AUTO MACHINIST Office Visit [facility] Wound Care [address] [place] [address] 09/02/2024 8:30 AM AUTO MACHINIST Office Visit [facility] W[facility] Care [address] [place] [address]14 09/03/2024 8:30 AM AUTO MACHINIST Office Visit [facility] W[facility] Care [address] [place] [address] [phone] 09/03/2024 11:00 AM AUTO MACHINIST Office Visit [facility] W[facility] Care [address] [place] [address] Vilma Nvees MD [address] [place] [phone] 09/03/2024 11:00 AM AUTO MACHINIST Office Visit [facility] Infectious Disease [address] [place] [address] 615[address] Amairani Sigala MD [address] [place] [phone] 09/04/2024 8:30 AM AUTO MACHINIST Office Visit [facility] W[facility] Care [address] [place] [address] [phone] 09/07/2024 8:30 AM AUTO MACHINIST Office Visit [facility] W[facility] Care [address] [place] [phone] 09/08/2024 8:30 AM AUTO MACHINIST Office Visit [facility] Wound Care [address] [place] [address] [phone] 09/09/2024 8:30 AM AUTO MACHINIST Office Visit [facility] Wound Care [address] [place] [address] [phone] 09/10/2024 8:30 AM AUTO MACHINIST Office Visit [facility] Wound Care [address] [place] [address] [phone] 09/10/2024 11:20 AM AUTO MACHINIST Office Visit [facility] W[facility] Care [address] [place] [address] [place] [address] [place] [phone] 09/11/2024 8:30 AM AUTO MACHINIST Office Visit [facility] Wound Care [address] [place] [address] [phone] 09/14/2024 8:30 AM AUTO MACHINIST Office Visit [facility] Wound Care [address] [place] [address] [phone] 09/15/2024 8:30 AM AUTO MACHINIST Office Visit [facility] Wound Care [address] [place] [address] [phone] documented as of this encounter Procedures Procedure Name Priority Date/Time Associated Diagnosis Comments PREALBUMIN Routine 07/10/2024 12:02 PM CDT Diabetic ulcer of right midfoot associated with type 2 diabetes mellitus, 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) documented in this encounter Results * Prealbumin (07/10/2024 12:02 PM CDT) Prealbumin 23.7 17.6 - 36.0 mg/dL 07/10/2024 3:39 PM CDT [facility] Blood (Blood, Venous) 07/10/2024 12:02 PM CDT 07/10/2024 2:05 PM CDT Vilma Neves MD LAB BLOOD ORDERABLES [facility] [address] [place] [phone] documented in this encounter Visit Diagnoses Diagnosis Diabetic ulcer of right midfoot associated with type 2 diabetes mellitus, 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
--- OUTSIDE RECORDS SUMMARY | 2024-08-21 10:23 | XMS_ITS | Encounter Summary ---
Author Organization [facility] er Address [address] [place] [id number] Care Team Providers Care Founder And Ceo Name Role Phone Thu Bhagat PA-C Primary Care Provider Reason for Visit * Reason Comments HBO * Consultation (Routine) - Authorized Specialty Diagnoses / Procedures Referred By Contac t Referred To Contact Wound Care Diagnoses Type 2 diabetes mellitus with foot ulcer Procedures Wound Care HBOT Thu Bhagat PA-C [address] [place] [phone] [facility] Wound Care [address] [place] [phone] Referral ID Status Reason Start Date Expiration Date V isits Requested Visits Authorized [id number] Authorized 07/02/2024 10/11/2024 99 99 Encounter Details Date Type Department Care Team (Late st Contact Info) Description 07/13/2024 8:30 AM CDT Office Visit [facility] Wound Care [address] [place] [phone] [place] [address] [place] [phone] Diabetic ulcer of right midfoot associated [...] from your doctor or pharmacy? Never 06/06/2024 [facility] Utilities Answer Date Recorded In the past 12 months has e [employer], oil, or water [employer] threatened to shut off services in your [...] 06/06/2024 How often do you attend formerly [facility] or buddhism services? More than 4 times per year 06/06/2024 Do you belong to any clubs o r organizations such as jainism groups, unions, fraternal or athletic groups, or [...] Recorded Patient Health Questionnaire-2 Score 0 06/06/2024 [facility] - Occupational Stress Questionnaire Answer Date Recorded [...] any time in the past 12 [facility], were you homeless or living in [...] Reading Time Taken Comments Blood Pressure 115/82 07/13/2024 11:08 AM CDT Pulse 83 07/13/2024 11:08 AM CDT Temperature 36.1 ??C (97 ??F) 07/13/2024 11:08 AM CDT Respiratory Rate - - Oxygen Saturation 98% 07/13/2024 11:08 AM CDT Inhaled Oxygen Concentration - - Weight - - Height - - Body Mass Index - - documented in this encounter Progress Notes * Riya Stewart RN - 07/13/2024 8:30 AM CDT HYPERBARIC OXYGEN THERAPY TREATMENT # 1 2.0 Atmospheres Absolute for 90 minutes without air-breaks Chamber: Chamber Number: [id number] Patient presented wearing off loading device to right foot, ordered dressings in place. Vitals: 07/13/24 1108 BP: 115/82 Pulse: 83 Temp: 36.1 ??C (97 ??F) SpO2: 98% Glucose Readings Pre Capillary Blood Glucose: 116 (boost given @ 0820. BG rechecked @ 0840 was 140) Post Capillary Blood Glucose: 178 Blood Glucose Reference Range: 65-95 If patient diabetic, was the Glycemia Interventions Protocol ordered by the physician? : Yes Hyperbaric Monitor Indications: Diabetic Kenney Grade 3 or Higher Treatment Start Time - Compression Begins at 1 ZAID: 0903 Rate Set PSI / Min: 1 Pressure Reached: 0920 ZAID: 2.0 Decompression Begins: 1050 Treatment End Time to 1 ZAID: 1105 Total Treatment Time: 122 Symptoms Noted During Treatment: Ear Pain / Discomfort Hyperbaric Pre-Instpection Hyperbaric Pre-Inspection Consent Obtained: Yes Is there a TCOM ordered for the patient?: Yes Patient voided/noonan secured and emptied: Yes When did the patient last eat?: 0820 (boost given) Last dose of injectable or oral hypoglycemic agent: 0730 Ostomy pouch emptied and vented (if applicable): N/A All implantable devices assessed, documented, and approved: N/A Intravenous access site secured and placed: Yes Valuables secured: Yes Linens are cotton: Yes Cotton Gown: Yes Glasses Removed: Yes Jewelery Removed: Yes Makeup Removed: Yes Hair Care Products Removed: Yes Wigs or Hair Pieces Removed: Yes Nail romanian cured greater than 10 hours: Yes Personal [...] Evaluation Ear Evaluation Left Ear Clear: No (ear wax per provider) Right Ear Clear: No (ear wax per provider) Left Tympanic Membrane Visible and Intact: No (unable to see tympanic membrane per provider) Right Tympanic Membrane Visible and Intact: No (unable to see tympnic membrane per provider) Left Color: Iridescent (per provider) Right Color: Iridescent (per provider) Left Pressure Equalization Tubes in Place: N / A (per provider) Right Pressure Equalization Tubes in Place: N / A (per provider) Left Irrigated: No (per provider) Right Irrigated: No (per provider) Associated attestation - Vilma Neves MD - 07/13/2024 11:53 AM CDT HBOT Physician Documentation: Wound Examined? No. Please see weekly wound visit note for detailed wound findings for this corresponding week Patient Cleared for HBO? Yes Continue HBO? Yes TEED Score: Pre-Treatment impacted cerumen bilaterally Post Treatment impacted cerumen bilaterally PE Tubes? No Myringotomy Performed? No Breath Sounds: CTAB Other Notes: Recommend continuing with HBOT as wound is progressing well as noted in wound visit note each week Patient will attempt to irrigate his ears in the evening otherwise we will recommend an ENT referral for disimpaction of impacted cerumen. documented in this encounter Plan of Treatment Upcoming Encounters Date Type Department Care Team (Late st Contact Info) Description 08/24/2024 8:30 AM SYSTEM ANALYST Office Visit [facility] [address] [place] [phone] 08/24/2024 11:30 AM SYSTEM ANALYST Office Visit Podiatry [address] [place] [address] Angel Coombs, DPHang [address] [place] [phone] 08/25/2024 8:30 AM SYSTEM ANALYST Office Visit [facility] [address] [place] [phone] 08/26/2024 8:30 AM SYSTEM ANALYST Office Visit [facility] [address] [place] [phone] 08/27/2024 8:30 AM SYSTEM ANALYST Office Visit [facility] [address] [place] [address] 08/27/2024 11:00 AM SYSTEM ANALYST Office Visit [facility] [address] [place] [phone] Vilma Neves MD [address] [place] [phone] 08/28/2024 8:30 AM SYSTEM ANALYST Office Visit [facility] [address] [place] [phone] 08/31/2024 8:30 AM SYSTEM ANALYST Office Visit [facility] [address] [place] [phone] 09/01/2024 8:30 AM SYSTEM ANALYST Office Visit [facility] [address] [place] [phone] 09/02/2024 8:30 AM SYSTEM ANALYST Office Visit [facility] Wound Care [address] [place] [phone] 09/03/2024 8:30 AM SYSTEM ANALYST Office Visit [facility] Wound Care [address] [place] [phone] 09/03/2024 11:00 AM SYSTEM ANALYST Office Visit [facility] W[facility] Care [address] [place] [phone] Vilma Neves MD [address] [place] [phone] 09/03/2024 11:00 AM SYSTEM ANALYST Office Visit [facility] Infectious Disease [address] [place] [phone] Amairani Sigala MD [address] [place] [address] [phone] 09/04/2024 8:30 AM SYSTEM ANALYST Office Visit [facility] Wound Care [address] [place] [phone] 09/07/2024 8:30 AM SYSTEM ANALYST Office Visit [facility] Wound Care [address] [place] [phone] 09/08/2024 8:30 AM SYSTEM ANALYST Office Visit [facility] W[facility] [address] [place] [phone] 09/09/2024 8:30 AM SYSTEM ANALYST Office Visit [facility] W[facility] [address] [place] [phone] 09/10/2024 8:30 AM SYSTEM ANALYST Office Visit [facility] W[facility] [address] [place] [phone] 09/10/2024 11:20 AM SYSTEM ANALYST Office Visit [facility] W[facility] [address] [place] [phone] Vilma Neves MD [address] [place] [address] [phone] 09/11/2024 8:30 AM SYSTEM ANALYST Office Visit [facility] [address] [place] [phone] 09/14/2024 8:30 AM SYSTEM ANALYST Office Visit [facility] [address] [place] [address] [phone] 09/15/2024 8:30 AM SYSTEM ANALYST Office Visit [facility] W[facility] [address] [place] [phone] documented as of this encounter Procedures Procedure Name Priority Date/Time Associated Diagnosis Comments POCT PRECISION GLUCOSE Routine 07/13/2024 11:10 AM CDT POCT PRECISION GLUCOSE Routine 07/13/2024 8:42 AM CDT POCT PRECISION GLUCOSE Routine 07/13/2024 8:20 AM CDT documented in this encounter Results * (ABNORMAL) POCT Precision glucose (07/13/2024 11:10 AM CDT) [facility] Signature Glucose Blood, POC 178(H) 70 - 100 mg/dL 07/13/2024 11:11 AM CDT [facility] Comment: Meter ID: [id number] Capillary whole blood specimens should not be used in patients receiving intensive medical intervention/therapy because of the potential for pre-analytical collection error and specifically in patients with decreased peripheral blood flow, as it may not truly reflect the patient? s true physiological state. Examples include, but are not limited to, severe hypotension, shock, hyperosmolar-hyperglycemia (with or without ketosis), and severe dehydration. 07/13/2024 11:1 0 AM CDT 07/13/2024 11:11 AM CDT Thu Bhagat PA-C LAB POINT OF CARE TE ST DOCKED DEVICE UNSOLICITED RESULTS [facility] [address] [place] [phone] * (ABNORMAL) POCT Precision glucose (07/13/2024 8:42 AM CDT) Glucose Blood, POC 140(H) 70 - 100 mg/dL 07/13/2024 8:43 AM CDT [facility] Comment: Meter ID: [id number] Capillary whole blood specimens should not be used in patients receiving intensive medical intervention/therapy because of the potential for pre-analytical collection error and specifically in patients with decreased peripheral blood flow, as it may not truly reflect the patient? s true physiological state. Examples include, but are not limited to, severe hypotension, shock, hyperosmolar-hyperglycemia (with or without ketosis), and severe dehydration. 07/13/2024 8:42 AM CDT 07/13/2024 8:43 AM CDT Thu Bhagat PA-C LAB POINT OF CARE TE ST DOCKED DEVICE UNSOLICITED RESULTS Performing Organization Address [facility] de Phone Number [facility] [address] [place] [phone] * (ABNORMAL) POCT Precision glucose (07/13/2024 8:20 AM CDT) Glucose Blood, POC 116(H) 70 - 100 mg/dL 07/13/2024 8:21 AM CDT [facility] Comment: Meter ID: [id number] Capillary whole blood specimens should not be used in patients receiving intensive medical intervention/therapy because of the potential for pre-analytical collection error and specifically in patients with decreased peripheral blood flow, as it may not truly reflect the patient? s true physiological state. Examples include, but are not limited to, severe hypotension, shock, hyperosmolar-hyperglycemia (with or without ketosis), and severe dehydration. 07/13/2024 8:20 AM CDT 07/13/2024 8:21 AM CDT Thu Bhagat PA-C LAB POINT OF CARE TE ST DOCKED DEVICE UNSOLICITED RESULTS Performing Organization Address 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
--- OUTSIDE RECORDS SUMMARY | 2024-08-21 10:23 | XMS_ITS | Encounter Summary ---
Author Organization [facility] er Address [address] [place] [id number] Care Team Providers Care Internal Sales Name Role Phone Thu Bhagat PA-C Primary Care Provider [phone] Reason for Visit * Reason Comments HBO * Consultation (Routine) - Authorized Specialty Diagnoses / Procedures Referred By Kaley t Referred To Contact Wound Care Diagnoses Diabetic ulcer of right midfoot associated with type 2 diabetes mellitus, 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) Vilma Neves MD [address] [place] [phone] Referral ID Status Reason Start Date Expiration Date Visits Requested Visits Authorized [id number] Authorized Specialty Services Required 06/30/2024 12/15/2024 1 1 Encounter Details Date Type Department Care Team (Late st Contact Info) Description 07/10/2024 9:00 AM CDT Office Visit [facility] [address] [place] [phone] Vilma Neves MD [address] [place] [phone] Diabetic ulcer of right midfoot associated [...] Never 06/06/2024 [facility] Utilities Answer Date Recorded In the past 12 months has th e [employer], gas, oil, or water company threatened to [...] any clubs o r organizations such as anglican groups, unions, fraternal or athletic groups, or [...] Recorded Patient Health Questionnaire-2 Score 0 06/06/2024 [facility] - Occupational Stress Questionnaire Answer [...] in the past 12 m [facility], were you homeless or living in a intermediate (including now)? No 06/06/2024 Interpersonal Safety Questionnaire [...] Progress Notes * Vilma Neves MD - 07/10/2024 9:00 AM CDT HYPERBARIC CONSULTATION CHIEF COMPLAINT: DFU Kenney 3 right foot (status post second toe amputation) with no significant improvement despite advanced wound care for more than 30 consecutive days. HISTORY OF PRESENT ILLNESS: 69-year-old male with a DFU Kenney 3 involving the right foot who has not shown significant clinical improvement despite 30 consecutive days of advanced wound care including glycemic control, offloading, antibiotics, amputation and debridement, and advanced wound modalities. On 06/04/2024, patient presented to the emergency department with right lower extremity cellulitis. His medical history significant for atrial fibrillation, hypertension, stroke, type 2 diabetes mellitus (rfu-[id number]), and history of cerebellar infarction. Patient initially noticed swelling redness pain on 05/29/2024 involving his right foot and was seen in acute care. He typically has neuropathy but became concer gilda when the foot became creasingly more uncomfortable red swollen and started to drain. He was started on doxycycline twice a day for 14 days. X-ray was completed emergency department showing soft tissue swelling without evidence of osteomyelitis. Patient was advised to follow-up if you develop fevers chills worsening redness and swelling despite being on doxycycline. He presented back to the emergency department 06/06/2024 and then was discharged on 06/17/2004. He required a right second toe amputation with wound debridement and incision and drainage on 06/08/2024 and then another incision anddrainage on 06/12/2024 with podiatry. Consults were placed to podiatry, infectious disease, wound care. Cultures have been significant for Staphylococcus aureus. Patient was started on outpatient IV antibiotics including Invanz. Hemoglobin A1c on 06/06/2024 was 9.0. Since hospital discharge, patient has been checking his blood sugars and maintains glycemic control without hypoglycemia usually rangebetween 90 and 110. He is offloading with an Aircast and wheelchair. He has been approved for negative pressure wound therapy and social worker palliative care is working on home health. Despite the above, patienthas not shown significant clinical improvement and continues to have a wound that tunnels deeply into the midfoot. In addition to antibiotics, debridements, surgery, offloading, glycemic control, compliance with follow-up appointments, protein optimization twice daily he continues to have a deep tunneling wound. Patient is here to hear more about possible option adjuvant therapy to assist with further wound healing. PAST MEDICAL HISTORY: Past Medical History: Diagnosis Date Atrial fibrillation ([facility]) 02/03/2016 Compression fracture of vertebra ([facility]) 02/04/2017 Confusion 05/20/2018 Dizziness 08/05/2012 Essential hypertension 03/08/2011 General medical exam 03/29/2019 Colon cancer screening: cologuard 03/13/2019 negative; next due in 3 years (2021) PSA: 2014 1.8; could consider repeat test every 3-5 years or sooner if symptoms Glaucoma 10/22/2014 Headache 04/27/2019 Herpes simplex 03/13/2019 High aspartate aminotransferase level 05/16/2005 Inguinal hernia 12/21/2004 Major depressive disorder 09/18/2012 Migraine headache with aura 04/28/2019 Mixed hyperlipidemia 01/23/2005 Obstructive sleep apnea syndrome in adult 02/09/2016 Presbyopia 03/15/2005 Stroke ([facility]) 05/23/2018 Type 2 diabetes mellitus with diabetic neuropathy, unspecified ([facility]) 09/22/2012 Unspecified systolic (congestive) heart failure ([facility]) 05/23/2018 PAST SURGICAL HISTORY: Past Surgical History: Procedure Laterality Date FOOT AMPUTATION THROUGH METATARSAL Right 06/08/2024 Procedure: Right second toe amputation with wound debridement and incision and drainage. Possible transmetatarsal amputation with gastroc lengthening; Surgeon: Megan Lopez DPM; Location: [facility] OR; Service: Podiatry; Laterality: Right; INCISION AND DRAINAGE OF WOUND Right 06/12/2024 Procedure: INCISION AND DRAINAGE woth possible delayed primary closure right foot; Surgeon: Angel Coombs DPM; Location: [facility] OR; Service: Podiatry; Laterality: Right; SOCIAL HISTORY: Social History Socioeconomic History Marital status: Spouse name: Not on file Number of children: Not on file Years of education: Not on file Highest education level: Not on file Occupational History Not on file Tobacco Use Smoking status: Never Passive exposure: Never Smokeless tobacco: Never Vaping Use Vaping status: Never Used Substance and Sexual Activity Alcohol use: Yes Alcohol/week: 2.0 standard drinks of alcohol Types: 2 Cans of beer per week Comment: 3x / week Drug use: Not Currently Sexual activity: Not Currently Other Topics Concern Not on file Social History Narrative Not on file Social Determinants of Health Financial Resource Strain: Low Risk (06/06/2024) Overall Financial Resource Strain (CARDIA) Difficulty of Paying Living Expenses: Not very hard Food Insecurity: No Food Insecurity (06/06/2024) Hunger Vital Sign Worried About Running Out of Food in the Last Year: Never true Ran Out of Food in the Last Year: Never true Transportation Needs: No Transportation Needs (06/06/2024) PRAPARE - Transportation Lack of Transportation (Medical): No Lack of Transportation (Non-Medical): No Physical Activity: Unknown (06/06/2024) Exercise Vital Sign Days of Exercise per Week: 1 day Minutes of Exercise per Session: Not on file Stress: No Stress Concern Present (06/06/2024) Citizen Of [place] [facility] - Occupational Stress Questionnaire Feeling of Stress : Not at all Social Connections: Moderately Integrated (06/06/2024) Social Connection and Isolation Panel [NHANES] Frequency of Communication with Friends and Family: More than three times a week Frequency of Social Gatherings with Friends and Family: Three times a week Attends Alevism Services: More than 4 times per year Active Member of Clubs or Organizations: Yes Attends Club or Organization Meetings: More than 4 times per year Marital Status: Intimate Partner Violence: Not At Risk (06/06/2024) Humiliation, Afraid, Rape, and Kick questionnaire Fear of Current or Ex-Partner: No Emotionally Abused: No Physically Abused: No Sexually Abused: No Housing Stability: Low Risk (06/06/2024) Housing Stability Vital Sign Unable to Pay for Housing in the Last Year: No Number of Times Moved in the Last Year: 1 Homeless in the Last Year: No FAMILY HISTORY: Family History Problem Relation Age of Onset Macular degeneration Maternal Grandmother CURRENT MEDICATIONS: Current Outpatient Medications: apixaban (ELIQUIS) 5 MG tablet, Take 1 tablet (5 mg total) by mouth 2 times daily, Disp: , Rfl: aspirin EC 81 MG EC tablet, Take 1 tablet (81 mg total) by mouth daily, Disp: , Rfl: atorvastatin (LIPITOR) 80 MG tablet, Take 0.5 tablets (40 mg total) by mouth 1 (one) time each day,Disp: , Rfl: carbamide peroxide (DEBROX) 6.5 % otic solution, Administer into affected ear(s) (Patient not taking: Reported on 07/23/2024), Disp: , Rfl: carvedilol (COREG) 12.5 MG tablet, Take 1 tablet (12.5 mg total) by mouth 2 (two) times a day, Disp: , Rfl: carvedilol (COREG) 25 MG tablet, Take 1 tablet (25 mg total) by mouth 2 (two) times a day with meals for 14 doses, Disp: 14 tablet, Rfl: 0 cefadroxil (DURICEF) 500 MG capsule, Take 2 capsules (1,000 mg total) by mouth 2 (two) times a day for 14 days, Disp: 56 capsule, Rfl: 0 cyanocobalamin (VITAMIN B-12) 1000 MCG tablet, Take 1 tablet (1,000 mcg total) by mouth 1 (one) time each day, Disp: , Rfl: Empagliflozin 25 MG tablet, Take 25 mg by mouth 1 (one) time each day, Disp: , Rfl: ERTAPENEM SODIUM IV, Infuse into a venous catheter 1 GM IV Every Day, Disp: , Rfl: glipiZIDE (GLUCOTROL XL) 10 MG 24 hr tablet, Take 2 tablets (20 mg total) by mouth 1 (one) time each day Do not crush, chew, or split., Disp: , Rfl: lisinopril (ZESTRIL) 10 MG tablet, Take 2 tablets (20 mg total) by mouth 1 (one) time each day (Patient not taking: Reported on 07/07/2024), Disp: , Rfl: Magnesium Oxide 420 MG tablet, Take 1 tablet by mouth 2 (two) times a day, Disp: , Rfl: metFORMIN (GLUCOPHAGE) 1000 MG tablet, Take 1 tablet (1,000 mg total) by mouth 2 (two) times a day with meals, Disp: , Rfl: pioglitazone (ACTOS) 45 MG tablet, Take 1 tablet (45 mg total) by mouth 1 (one) time each day, Disp: , Rfl: UNABLE TO FIND, Med Name: Neurvive supplement (Patient not taking: Reported on 06/18/2024), Disp: , Rfl: Vitamin D, Cholecalciferol, 25 MCG (1000 UT) tablet, Take 1,000 Units by mouth 1 (one) time each day, Disp: , Rfl: ALLERGIES: Allergies Allergen Reactions Niacin Other (see comments) makes me feel like I'm burning Review of Systems Constitutional: Negative for activity change, appetite change, chills, fatigue, fever and unexpected weight change. HENT: Negative for congestion, drooling, hearing loss, postnasal drip, rhinorrhea and sinus pain. Eyes: Negative for pain, redness and itching. Respiratory: Negative for cough, shortness of breath, wheezing and stridor. Cardiovascular: Negative for chest pain and leg swelling. Atrial fibrillation Gastrointestinal: Negative for abdominal distention, abdominal pain, anal bleeding, blood in stool,constipation, diarrhea, nausea, rectal pain and vomiting. Endocrine: Negative for cold intolerance and heat intolerance. Genitourinary: Negative for difficulty urinating and frequency. Musculoskeletal: Negative for arthralgias, back pain and gait problem. Skin: Positive for wound. Negative for color change, pallor and rash. Allergic/Immunologic: Negative for environmental allergies and food allergies. Neurological: Negative for light-headedness and headaches. History of cerebellar stroke Hematological: Negative for adenopathy. Bruises/bleeds easily. Eliquis Psychiatric/Behavioral: Negative for agitation and confusion. Objective Physical Exam Constitutional: General: He is not in acute distress. Appearance: He is well-developed. He is ill-appearing. He is not diaphoretic. HENT: Head: Normocephalic and atraumatic. Right Ear: Ear canal and external ear normal. There is impacted cerumen. Left Ear: Ear canal and external ear normal. There is impacted cerumen. Nose: Nose normal. Mouth/Throat: Mouth: Mucous membranes are moist. Eyes: General: No scleral icterus. Extraocular Movements: Extraocular movements intact. Conjunctiva/sclera: Conjunctivae normal. Pupils: Pupils are equal, round, and reactive to light. Neck: Thyroid: No thyromegaly. Vascular: No JVD. Cardiovascular: Rate and Rhythm: Normal rate. Rhythm irregular. Heart sounds: Normal heart sounds. No murmur heard. No friction rub. No gallop. Pulmonary: Effort: Pulmonary effort is normal. No respiratory distress. Breath sounds: Normal breath sounds. No stridor. No wheezing, rhonchi or rales. Chest: Chest wall: No tenderness. Abdominal: General: Bowel sounds are normal. There is no distension. Palpations: Abdomen is soft. There is no mass. Tenderness: There is no abdominal tenderness. There is no guarding or rebound. Musculoskeletal: General: No swelling, tenderness, deformity or signs of injury. Normal range of motion. Cervical back: Normal range of motion and neck supple. Lymphadenopathy: Cervical: No cervical adenopathy. Skin: General: Skin is warm and dry. Capillary Refill: Capillary refill takes less than 2 seconds. Comments: Right foot DFU Kenney 3 down to muscle fascia with erythema minimal granulation central tunneling Neurological: General: No focal deficit present. Mental Status: He is alert and oriented to person, place, and time. Deep Tendon Reflexes: Reflexes normal. Psychiatric: Mood and Affect: Mood normal. Behavior: Behavior normal. LABORATORY DATA: Lab Results Component Value Date WBC 7.0 07/14/2024 HGB 16.4 07/14/2024 HCT 49.2 07/14/2024 MCV 90.4 07/14/2024 PLT 225 07/14/2024 Lab Results Component Value Date ALBUMIN 4.1 07/14/2024 Lab Results Component Value Date CREATININE 1.12 07/14/2024 BUN 17 07/14/2024 NA 139 07/14/2024 K 4.3 07/14/2024 CL 105 07/14/2024 CO2 24 07/14/2024 No results found for: CHOL No results found for: HDL No results found for: LDLCALC No results found for: TRIG No results found for: CHOLHDL Lab Results Component Value Date GLUCOSE 86 07/14/2024 CALCIUM 9.6 07/14/2024 NA 139 07/14/2024 K 4.3 07/14/2024 CO2 24 07/14/2024 CL 105 07/14/2024 BUN 17 07/14/2024 CREATININE 1.12 07/14/2024 Lab Results Component Value Date INR 1.6 06/06/2024 LABGRAM Date Value Ref Range Status 06/12/2024 No organisms seen. No WBC's seen. Final RADIOLOGY DATA: EKG: Yes Date: Ordered-results pending. CHEST X-RAY: Yes Date: 06/15/2024 No evidence of an acute pulmonary process. Assessment/Plan Diagnoses and all orders for this visit: Diabetic ulcer of right midfoot associated with type 2 diabetes mellitus, 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) - Prealbumin; Future - ECG 12 lead; Future - Transcutaneous monitoring, continuous; Future 69-year-old male with DFU Kenney 3 in the setting of type 2 diabetes mellitus not insulin-dependentwith failure to show significant clinical improvement for more than 30 days of consecutive wound care offloading protein optimization antibiotics debridement and surgery. Recommend option adjuvant therapy to assist with healing. Patient has bilateral TMs cerumen impaction and if he has ear discomfort during initiation of oxygen treatment, will refer to ENT for ear washout. Patient understands that this is an adjuvant modality and that if he is not showing clinical signs of improvement with thistreatment, we will discontinue oxygen treatment. The importance of continued glycemic control, offloading with wheelchair and Aircast as well as wearing a Rooke boot, antibiotics, debridements, advanced dressings including antimicrobial collagen and antimicrobial foam, antibiotics per infectious disease were again reiterated. Patient verbalized understanding like to proceed with HBO. New orders: Prealbumin, EKG, 1 late in chamber T com, ANNA (ordered results pending-see addendum) NUMBER OF TOTAL TREATMENTS: 40 NUMBER OF TREATMENTS PER DAY/WEEK: 1 treatment per day Saturday through Saturday TREATMENT DEPTH: 2.0 ZAID AIR BREAKS: As needed ISSUES, RISK, AND BENEFITS DISCUSSED: Yes Hyperbaric oxygen adjuvant therapy benefits discussed including: Oxygen is able to reach areas of the body by enriching the blood. For people who have problems withoxygen levels due to blocked or reduced blood flow, HBOT treatments can help restore proper functioning to these areas of the body. Oxygen enriched blood can help stimulate new blood vessel growth and development. This benefit goes [id number] with the previous one. As oxygen is able to reach areas with blocked or restricted blood flow, it can actually cause new blood vessels to grow, which willhelp eliminate the blockage and improve blood flow in this area of the body. Improves blood flow tothe organs within the body. The kidneys, heart, and other organs can benefit from oxygen rich blood. In some cases, HBOT can help reduce recovery times after surgical procedures as it helps promote faster healing. Increases the body???s immune response to fight infections and infectious diseases. When the body is exposed to 100% pure oxygen, it helps improve the functioning of white blood cells, which have the purpose of helping fight infections and infectious diseases. People with an abundant level of white blood cells are better able to maintain their health from improved immune responses. SOD (Superoxide Dismutase) levels are increased. SOD is an essential antioxidant the body produces on its own. Antioxidants, like SOD, are a vital part for staying healthy and help in the prevention of diseases and illnesses. Possible risks associate with hyperbaric oxygen therapy discussed including but not limited to: Otic Barotrauma. : This pain in the ears or sinuses is the most common side effect. Serous Otitis. : The accumulation of fluid in the ears may take place as a result.. Barotrauma. : Organ damage caused by air pressure changes is an extremely rare side effect. Addendum: Arterial Doppler bilateral 07/20/2024 FINDINGS: SEGMENTAL PRESSURES AND ABIs Right posterior [...] DOPPLER WAVEFORMS Doppler waveforms bilaterally are multiphasic. No evidence of PAD documented in this encounter Plan of Treatment Upcoming Encounters Date Type Department Care Team (Late st Contact Info) Description 08/24/2024 8:30 AM RAILROAD FIRER/FIREMAN Office Visit [facility] [address] [place], [place] [phone] 08/24/2024 11:30 AM RAILROAD FIRER/FIREMAN Office Visit [facility] [address] [place], [place] [phone] Angel Coombs, DPM [address] [place] [phone] 08/25/2024 8:30 AM RAILROAD FIRER/FIREMAN Office [facility] [address] [place] [phone] 08/26/2024 8:30 AM RAILROAD FIRER/FIREMAN Office [facility] [address] [place] [phone] 08/27/2024 8:30 AM RAILROAD FIRER/FIREMAN Office [facility] [address] [place] [phone] 08/27/2024 11:00 AM RAILROAD FIRER/FIREMAN Office Visit [facility] [address] [place] [phone] Vilma Neves MD [address] [place] [phone] 08/28/2024 8:30 AM RAILROAD FIRER/FIREMAN Office Visit [facility] [address] [place] [phone] 08/31/2024 8:30 AM RAILROAD FIRER/FIREMAN Office Visit [facility] [address] [place] [phone] 09/01/2024 8:30 AM RAILROAD FIRER/FIREMAN Office Visit [facility] [address] [place] [phone] 09/02/2024 8:30 AM RAILROAD FIRER/FIREMAN Office Visit [facility] [address] [place] [phone] 09/03/2024 8:30 AM RAILROAD FIRER/FIREMAN Office Visit [facility] [address] [place] [phone] 09/03/2024 11:00 AM RAILROAD FIRER/FIREMAN Office Visit [facility] [address] [place] [address] Vilma Neves MD [address] [place] [phone] 09/03/2024 11:00 AM RAILROAD FIRER/FIREMAN Office Visit [facility] [address] [place] [phone] Amairani Sigala MD [address] [place] [phone] 09/04/2024 8:30 AM RAILROAD FIRER/FIREMAN Office Visit [facility] [address] [place] [phone] 09/07/2024 8:30 AM RAILROAD FIRER/FIREMAN Office Visit [facility] [address] [place] [phone] 09/08/2024 8:30 AM RAILROAD FIRER/FIREMAN Office Visit [facility] [address] [place] [phone] 09/09/2024 8:30 AM RAILROAD FIRER/FIREMAN Office Visit [facility] [address] [place] [phone] 09/10/2024 8:30 AM RAILROAD FIRER/FIREMAN Office Visit [facility] [address] [place] [phone] 09/10/2024 11:20 AM RAILROAD FIRER/FIREMAN Office Visit [facility] [address] [place] [phone] Vilma Neves MD [address] [place] [phone] 09/11/2024 8:30 AM RAILROAD FIRER/FIREMAN Office Visit [facility] [address] [place] [phone] 09/14/2024 8:30 AM RAILROAD FIRER/FIREMAN Office Visit [facility] [address] [place] [phone] 09/15/2024 8:30 AM RAILROAD FIRER/FIREMAN Office Visit [facility] [address] [place] [phone] Scheduled Orders Name Type Priority Associated Diagnoses Order Schedule ECG 12 lead ECG Routine Diabetic ulcer of right midfoot associated with type 2 diabetes mellitus, 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) 1 Occurrences starting 07/10/2024 until 07/10/2025 Transcutaneous monitoring, continuous Respiratory Care Routine Diabetic ulcer of right midfoot associated with type 2 diabetes mellitus, 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) 1 Occurrences starting 07/10/2024 until 07/10/2025 documented as of this encounter Results * Prealbumin (07/10/2024 12:02 PM CDT) Prealbumin 23.7 17.6 - 36.0 mg/dL 07/10/2024 3:39 PM CDT [facility] Blood (Blood, Venous) 07/10/2024 12:02 PM CDT 07/10/2024 2:05 PM CDT Vilma Neves MD LAB BLOOD ORDERABLES [facility] [address] [place] [address] documented in this encounter Visit Diagnoses Diagnosis Diabetic ulcer of right midfoot associated with type 2 diabetes mellitus, 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)- Primary documented in this encounter Additional Health Concerns Infection Onset Date Last Indicated Resolved Time MSSA 06/06/2024 06/12/2024 07/13/2024 9:58 AM CDT documented as of this encounter Care Teams Internal Sales Relationship Specialty Start Date End Date Thu Bhagat PA-C [address] [place] [phone] PCP - General 11/26/22 documented as of this encounter
--- OUTSIDE RECORDS SUMMARY | 2024-08-21 10:23 | XMS_ITS | Encounter Summary ---
Author Organization [facility] er Address [address] [place] [address] Care Team Providers Care Blue Split Trimmer Name Role Phone Thu Bhagat PA-C Primary Care Provider Reason for Visit * Reason Comments HBO * Consultation (Routine) - Authorized Specialty Diagnoses / Procedures Referred By Contac t Referred To Contact Wound Care Diagnoses Type 2 diabetes mellitus with foot ulcer Procedures Wound Care HBOT Thu Bhagat PA-C [address] [place] [phone] [facility] Wound Care [address] [place] [address] Referral ID Status Reason Start Date Expiration Date V isits Requested Visits Authorized [id number] Authorized 07/02/2024 10/11/2024 99 99 Encounter Details Date Type Department Care Team (Late st Contact Info) Description 07/14/2024 8:30 AM CDT Office Visit [facility] [address] [place] [address] [place] [address] [place] [phone] Diabetic ulcer of right midfoot associated [...] from your doctor or pharmacy? Never 06/06/2024 [facility] Utilities Answer Date Recorded In the past 12 months has e [employer], gas, oil, or water company threatened to [...] do you attend [facility] or sabianist services? More than 4 times per year 06/06/2024 Do you belong to any clubs o r organizations such as voodoo groups, unions, fraternal or athletic groups, or [...] Recorded Patient Health Questionnaire-2 Score 0 06/06/2024 [facility] - Occupational Stress Questionnaire Answer [...] any time in the past 12 m [facility], were you homeless or living [...] Sign Reading Time Taken Comments Blood Pressure 110/74 07/14/2024 10:54 AM CDT Pulse 73 07/14/2024 10:54 AM CDT Temperature 35.6 ??C (96.1 ??F) 07/14/2024 10:54 AM C DT Respiratory Rate 18 07/14/2024 10:54 AM CDT Oxygen Saturation 98% 07/14/2024 10:54 AM CDT Inhaled Oxygen Concentration - - Weight - - Height - - Body Mass Index - - documented in this encounter Patient Instructions * Patient Instructions* Valeria Tobar RN - 07/14/2024 8:30 AM CDT Return in 1 day for your next HBO treatment. documented in this encounter Progress Notes * Valeria Tobar RN - 07/14/2024 8:30 AM CDT HYPERBARIC OXYGEN THERAPY TREATMENT # 2 2 ZAID for 90 minutes with no air breaks. Provider in wound clinic at time of treatment. Chamber: Chamber Number: [id number] Patient presented wearing off loading device to right foot, ordered dressings in place. Vitals: 07/14/24 1054 BP: 110/74 Pulse: 73 Resp: 18 Temp: (!) 35.6 ??C (96.1 ??F) SpO2: 98% Glucose Readings Pre Capillary Blood Glucose: 210 Post Capillary Blood Glucose: 129 Blood Glucose Reference Range: 65-95 If patient diabetic, was the Glycemia Interventions Protocol ordered by the physician? : Yes Hyperbaric Monitor Indications: Diabetic Kenney Grade 3 or Higher Treatment Start Time - Compression Begins at 1 ZAID: 0852 Rate Set PSI / Min: 1 Pressure Reached: 0906 ZAID: 2.0 Decompression Begins: 1036 Treatment End Time to 1 ZAID: 1051 Total Treatment Time: 119 Symptoms Noted During Treatment: Ear Pain / [...] Wigs or Hair Pieces Removed: Yes Nail mauritanian cured greater than 10 hours: Yes Personal [...] Tympanic Membrane Visible and Intact: Yes (per provider; able to see some membrane) Right Tympanic Membrane Visible and Intact: Yes (per provider; able to see some membrane) Left Color: Iridescent (per provider) Right Color: Iridescent (per provider) Left Pressure Equalization Tubes in Place: No (per provider) Right Pressure Equalization Tubes in Place: No (per provider) Left Irrigated: No (per provider) Right Irrigated: No (per provider) HBOT Physician Documentation Associated attestation - Vilma Neves MD - 07/14/2024 11:25 AM CDT HBOT Physician Documentation: Wound Examined? No. Please see weekly wound visit note for detailed wound findings for this corresponding week Patient Cleared for HBO? Yes Continue HBO? Yes TEED Score: Pre-Treatment impacted bilateral TMs Post Treatment impacted bilateral TMs PE Tubes? No Myringotomy Performed? No Breath Sounds: CTAB Other Notes: Recommend continuing with HBOT as wound is progressing well as noted in wound visit note each week Patient will be calling his PCP today to follow-up on ENT referral. If okay to place from [facility] willproceed with ENT referral at [facility] otherwise [facility] disimpaction of TMs show patient does not sustained barotrauma during HBO. documented in this encounter Plan of Treatment Upcoming Encounters Date Type Department Care Team (Late st Contact Info) Description 08/24/2024 8:30 AM PROJECT MANAGEMENT INTERN Office Visit [facility] Wound Care [address] [place] [address] 08/24/2024 11:30 AM PROJECT MANAGEMENT INTERN [facility] [address] [place] [address] Angel Coombs DPM [address] [place] [phone] 08/25/2024 8:30 AM PROJECT MANAGEMENT INTERN Office Visit [facility] Wound Care [address] [place] [address] 08/26/2024 8:30 AM PROJECT MANAGEMENT INTERN Office Visit [facility] Wound Care [address] [place] [address] 08/27/2024 8:30 AM PROJECT MANAGEMENT INTERN Office Visit [facility] Wound Care [address] [place] [address] 08/27/2024 11:00 AM PROJECT MANAGEMENT INTERN Office Visit [facility] Wound Care [address] [place] [address] [place] [address] [place] [phone] 08/28/2024 8:30 AM PROJECT MANAGEMENT INTERN Office Visit [facility] W[facility] [address] [place] [address] 08/31/2024 8:30 AM PROJECT MANAGEMENT INTERN Office Visit [facility] W[facility] [address] [place] [address] 09/01/2024 8:30 AM PROJECT MANAGEMENT INTERN Office Visit [facility] [address] [place] [address] 09/02/2024 8:30 AM PROJECT MANAGEMENT INTERN Office Visit [facility] [address] [place] [address] 09/03/2024 8:30 AM PROJECT MANAGEMENT INTERN Office Visit [facility] [address] [place] [address] [phone] 09/03/2024 11:00 AM PROJECT MANAGEMENT INTERN Office Visit [facility] [address] [place] [address] Vilma Neves MD [address] [place] [phone] 09/03/2024 11:00 AM PROJECT MANAGEMENT INTERN Office Visit [facility] Infectious Disease [address] [place] [address] Amairani Sigala MD [address] [place] [phone] 09/04/2024 8:30 AM PROJECT MANAGEMENT INTERN Office Visit [facility] [address] [place] [address] 09/07/2024 8:30 AM PROJECT MANAGEMENT INTERN Office Visit [facility] [address] [place] [address] 09/08/2024 8:30 AM PROJECT MANAGEMENT INTERN Office Visit [facility] [address] [place] [address] 09/09/2024 8:30 AM PROJECT MANAGEMENT INTERN Office Visit [facility] [address] [place] [address] 09/10/2024 8:30 AM PROJECT MANAGEMENT INTERN Office Visit [facility] Wound Care [address] [place] [address] 09/10/2024 11:20 AM PROJECT MANAGEMENT INTERN Office Visit [facility] Wound Care [address] [place] [phone] Vilma Neves MD [address] [place] [phone] 09/11/2024 8:30 AM PROJECT MANAGEMENT INTERN Office Visit [facility] Wound Care [address] [place] [phone] 09/14/2024 8:30 AM PROJECT MANAGEMENT INTERN Office Visit [facility] Wound Care [address] [place] [phone] 09/15/2024 8:30 AM PROJECT MANAGEMENT INTERN Office Visit [facility] Wound Care [address] [place] [address] [phone] documented as of this encounter Procedures Procedure Name Priority Date/Time Associated Diagnosis Comments POCT PRECISION GLUCOSE Routine 07/14/2024 10:57 AM CDT POCT PRECISION GLUCOSE Routine 07/14/2024 8:35 AM CDT documented in this encounter Results * (ABNORMAL) POCT Precision glucose (07/14/2024 10:57 AM CDT) [facility] Glucose Blood, POC 129(H) 70 - 100 mg/dL 07/14/2024 10:57 AM CDT [facility] Comment: Meter ID: [id number] Capillary whole blood specimens should not be used in patients receiving intensive medical intervention/therapy because of the potential for pre-analytical collection error and specifically in patients with decreased peripheral blood flow, as it may not truly reflect the patient? s true physiological state. Examples include, but are not limited to, severe hypotension, shock, hyperosmolar-hyperglycemia (with or without ketosis), and severe dehydration. 07/14/2024 10:5 7 AM CDT 07/14/2024 10:58 AM CDT Vilma Neves MD LAB POINT OF CARE TE ST DOCKED DEVICE UNSOLICITED RESULTS Performing Organization Address [facility] Co de Phone Number [facility] [address] [place] [phone] * (ABNORMAL) POCT Precision glucose (07/14/2024 8:35 AM CDT) Glucose Blood, POC 210(H) 70 - 100 mg/dL 07/14/2024 8:36 AM CDT [facility] Comment: Meter ID: [id number] Capillary whole blood specimens should not be used in patients receiving intensive medical intervention/therapy because of the potential for pre-analytical collection error and specifically in patients with decreased peripheral blood flow, as it may not truly reflect the patient? s true physiological state. Examples include, but are not limited to, severe hypotension, shock, hyperosmolar-hyperglycemia (with or without ketosis), and severe dehydration. 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
--- OUTSIDE RECORDS SUMMARY | 2024-08-21 10:23 | XMS_ITS | Encounter Summary ---
Author Organization [facility] er Address [address] [place] [address] Care Team Providers Care Assessment Services Manager Name Role Phone Thu Bhagat PA-C Primary Care Provider [phone] Reason for Visit * Reason Onset Date Comments [employer] benefit verification 07/07/2024 Encounter Details Date Type Department Care Team (Late st Contact Info) Description 07/07/2024 Telephone [facility] [address] [place] [address] Vilma Neves MD [address] [place] [phone] [employer] benefit verification Social History Tobacco Use Types Packs/Day Years [...] from your doctor or pharmacy? Never 06/06/2024 [facility] Utilities Answer Date Recorded In the [...] How often do you attend chur or yazdanism services? More than 4 times per year [...] Recorded Patient Health Questionnaire-2 Score 0 06/06/2024 [facility] - Occupational Stress [...] time in the past 12 m [facility], were you homeless or living in a nursing home (including now)? No 06/06/2024 Interpersonal Safety Questionnaire Answer Date Recorded How often does anyone, juancarolee luis f family and friends, physically hurt you? Never 06/06/2024 How often does anyone, tyrell luis f family and friends, insult or talk down to you? Never 06/06/2024 How often does anyone, juancarolee lusi f family and friends, threaten you with harm? Never 06/06/2024 How often does anyone, juancarolee luis f family and friends, threaten you with harm? Never 06/06/2024 Sex and Gender Information Value Date Recorded Sex Assigned at Not on file Gender Identity Not on file Sexual Orientation Not on file documented as of this encounter Miscellaneous Notes * Telephone Encounter - Ce Santiago - 07/07/2024 2:26 PM CDT Fax received from [facility] for benefit verification [facility] covers at 100% form placed in front of pt's binder documented in this encounter Plan of Treatment Upcoming Encounters Date Type Department Care Team (Late st Contact Info) Description 08/24/2024 8:30 AM GREASE MAKER Office Visit [facility] Wound Care [address] [place] [phone] 08/24/2024 11:30 AM GREASE MAKER [facility] [address], [place] [address] Angel Coombs, DPM [address] [place] [phone] 08/25/2024 8:30 AM GREASE MAKER Office Visit [facility] Wound Care [address] [place] [address]57 08/26/2024 8:30 AM GREASE MAKER Office Visit [facility] [address] [place] [address]119 08/27/2024 8:30 AM GREASE MAKER Office Visit [facility] [address] [place] [address]3227 08/27/2024 11:00 AM GREASE MAKER Office Visit [facility] [address] [place] [address] 1955[address] [place] [address] [place] [phone] 08/28/2024 8:30 AM GREASE MAKER Office Visit [facility] [address] [place] [address]8527 08/31/2024 8:30 AM GREASE MAKER Office Visit [facility] [address] [place] [address] 09/01/2024 8:30 AM GREASE MAKER Office Visit [facility] [address] [place] [address] 744[address] 09/02/2024 8:30 AM GREASE MAKER Office Visit [facility] [address] [place] [address] 09/03/2024 8:30 AM GREASE MAKER Office Visit [facility] W[facility] [address] [place] [address] 09/03/2024 11:00 AM GREASE MAKER Office Visit [facility] [address] [place] [address] Vilma Neves MD [address] [place] [address] [phone] 09/03/2024 11:00 AM GREASE MAKER Office Visit [facility] Infectious Disease [address] [place] [address] 02967 Amairani Sigala MD [address] [place] [phone] 09/04/2024 8:30 AM GREASE MAKER Office Visit [facility] [address] [place] [address] 99944 09/07/2024 8:30 AM GREASE MAKER Office Visit [facility] [address] [place] [address] [phone] 09/08/2024 8:30 AM GREASE MAKER Office Visit [facility] [address] [place] [address] 28632 09/09/2024 8:30 AM GREASE MAKER Office Visit [facility] [address] [place] [address] 19008 09/10/2024 8:30 AM GREASE MAKER Office Visit [facility] [address] [place] [address] [phone] 09/10/2024 11:20 AM GREASE MAKER Office Visit [facility] [address] [place] [address] Vilma Neves MD [address] [place] [phone] 09/11/2024 8:30 AM GREASE MAKER Office Visit [facility] Wound Care [address] [place] [address] 24116 09/14/2024 8:30 AM GREASE MAKER Office Visit [facility] Wound Care [address] [place] [address] 13635 09/15/2024 8:30 AM GREASE MAKER Office Visit [facility] Wound Care [address] [place] [address] [phone] documented as of this encounter Visit Diagnoses Not on filedocumented in this encounter Additional Health Concerns Infection Onset Date Last Indicated Resolved Time MSSA 06/06/2024 06/12/2024 07/13/2024 9:58 AM CDT documented as of this encounter Care Teams Assessment Services Manager Relationship Specialty Start Date End Date Thu Bhagat PA-C [address] [place] [phone] PCP - General 11/26/22 documented as of this encounter
--- OUTSIDE RECORDS SUMMARY | 2024-08-21 10:23 | XMS_ITS | Encounter Summary ---
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) EKG Procedures ECG 12-LEAD ELECTROCARDIOGRAM Vilma Neves MD [address] [place] [phone] Internal Medicine [address], [place] [address] Referral ID Status Reason Start Date Expiration Date V isits Requested Visits Authorized [id number] Authorized 07/10/2024 12/15/2024 1 1 Encounter Details Date Type Department Care Team (Latest Contact Info) Description 07/10/2024 11:30 AM CDT Procedure visit [facility] [address] [place] [address] Diabetic ulcer of right midfoot associated [...] Never 06/06/2024 [facility] Utilities Answer Date Recorded In the past [...] How often do you attend chur or confucianism services? More than 4 times [...] Recorded Patient Health Questionnaire-2 Score 0 06/06/2024 [facility] - Occupational Stress Questionnaire Answer [...] time in the past 12 m [facility], were you homeless or living in [...] as of this encounter Progress Notes * Chela Nielson RN - 07/10/2024 11:30 AM CDT Nurse Note EKG performed today per request of . Patient was asymptomatic at the time of the visit and tolerated the procedure well. Abnormal report to ordered provider. Patient denied any chest pain,shortness of breath, palpitations, and dizziness. EKG scanned and transmitted to cardiology for interpretation. Chela Nielson RN (Paul) documented in this encounter Plan of Treatment Upcoming Encounters Date Type Department Care Team (Late st Contact Info) Description 08/24/2024 8:30 AM RADIOLOGY TECHNOLOGIST Office Visit [facility] Wound Care [address] [place] [address] 08/24/2024 11:30 AM RADIOLOGY TECHNOLOGIST [facility] Visit [facility] [address], [place] [address] Anegl Coombs DPM [address] [place] [phone] 08/25/2024 8:30 AM RADIOLOGY TECHNOLOGIST Office Visit [facility] Wound Care [address] [place] [address] 08/26/2024 8:30 AM RADIOLOGY TECHNOLOGIST Office Visit [facility] Wound Care [address] [place] [address] 94587 08/27/2024 8:30 AM RADIOLOGY TECHNOLOGIST Office Visit [facility] Wound Care [address] [place] [address] 80081 08/27/2024 11:00 AM RADIOLOGY TECHNOLOGIST Office Visit [facility] Wound Care [address] [place] [address] Vilma Neves MD [address] [place] [phone] 08/28/2024 8:30 AM RADIOLOGY TECHNOLOGIST Office Visit [facility] W[facility] [address] [place] [address] 08/31/2024 8:30 AM RADIOLOGY TECHNOLOGIST Office Visit [facility] W[facility] [address] [place] [address] 91406 09/01/2024 8:30 AM RADIOLOGY TECHNOLOGIST Office Visit [facility] W[facility] [address] [place] [address] 09184 09/02/2024 8:30 AM RADIOLOGY TECHNOLOGIST Office Visit [facility] W[facility] Care [address] [place] [address] 56042 09/03/2024 8:30 AM RADIOLOGY TECHNOLOGIST Office Visit [facility] Wound Care [address] [place] [address] [phone] 09/03/2024 11:00 AM RADIOLOGY TECHNOLOGIST Office Visit [facility] W[facility] [address] [place] [address] [phone] Vilma Neves MD [address] [place] [phone] 09/03/2024 11:00 AM RADIOLOGY TECHNOLOGIST Office Visit [facility] Infectious Disease [address] [place] [phone] Amairani Sigala MD [address] [place] [phone] 09/04/2024 8:30 AM RADIOLOGY TECHNOLOGIST Office Visit [facility] W[facility] [address] [place] [address] 26485 09/07/2024 8:30 AM RADIOLOGY TECHNOLOGIST Office Visit [facility] W[facility] Care [address] [place] [address] 31260 09/08/2024 8:30 AM RADIOLOGY TECHNOLOGIST Office Visit [facility] W[facility] [address] [place] [address] 37010 09/09/2024 8:30 AM RADIOLOGY TECHNOLOGIST Office Visit [facility] Wound Care [facility] [address] [place] [address] 37[address] 09/10/2024 8:30 AM RADIOLOGY TECHNOLOGIST Office Visit [facility] Wound Care [address] [place] [address] [phone] 09/10/2024 11:20 AM RADIOLOGY TECHNOLOGIST Office Visit [facility] Wound Care [address] [place] [address] Vilma Neves MD [address] [place] [phone] 09/11/2024 8:30 AM RADIOLOGY TECHNOLOGIST Office Visit [facility] Wound Care [address] [place] [address] 28866 09/14/2024 8:30 AM RADIOLOGY TECHNOLOGIST Office Visit [facility] Wound Care [address] [place] [address] [phone] 09/15/2024 8:30 AM RADIOLOGY TECHNOLOGIST Office Visit [facility] Wound Care [address] [place] [address] [phone] documented as of this encounter Visit Diagnoses Diagnosis Diabetic ulcer of right midfoot associated with type 2 diabetes mellitus, 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
--- OUTSIDE RECORDS SUMMARY | 2024-08-21 10:23 | XMS_ITS | Encounter Summary ---
Author Organization [employer] er Address [address] [place] [address] Care Team Providers Care Fitter Mechanic Name Role Phone Thu Bhagat PA-C Primary Care Provider [phone] Reason for Visit * Reason Comments Wound Check * Consultation (Routine) - Authorized Specialty Diagnoses / Procedures Referred By Contac t Referred To Contact Wound Care Diagnoses Cellulitis, unspecified Procedures Wound Clinic Thu Bhagat PA-C 1 [place] [address] [facility] [address] [place] [address] Referral ID Status Reason Start Date Expiration Date V isits Requested Visits Authorized [id number] Authorized 06/17/2024 12/15/2024 99 99 Encounter Details Date Type Department Care Team (Late st Contact Info) Description 07/07/2024 3:15 PM CDT Office Visit [facility] [address] [place] [address] [phone] [place] [address] [place] [phone] Diabetic ulcer of right midfoot associated [...] In the past 12 months has e [employer], gas, oil, or water [employer] threatened to shut off services in your [...] 06/06/2024 How often do you attend [facility] or latter-day services? More than 4 times per year 06/06/2024 Do you belong to any clubs o r organizations such as shinto groups, unions, fraternal or athletic groups, or [...] Recorded Patient Health Questionnaire-2 Score 0 06/06/2024 [facility] - [...] * Patient Instructions* Wanda Marquez RN - 07/07/2024 3:15 PM CDT Keep dressings clean and dry; call the wound clinic with any questions or concerns. documented in this encounter Progress Notes * Vilma Neves MD - 07/07/2024 3:15 PM CDT Advanced Wound Healing Visit Type: Established patient Subjective Francisco Javier Fung is a 69 y.o. male who presents today for wound check. Patient is being seen for follow-up of a right foot DFU Kenney 3 after undergoing operative I&D with second toe amputation with podiatry 06/12/2024. He maintains glycemic control. He is offloading with a wheelchair Aircast andcrutches. His last hemoglobin A1c on 06/06/2024 was 9.0. No fevers or chills. No wound or dressing concerns. The following portions of the patient's history were reviewed by a provider in this encounter and updated as appropriate: Tobacco Allergies Meds Problems Med Hx Surg Hx Fam Hx Objective Visit Vitals Smoking Status Never Wound: Wound #1 right dorsal foot ulceration down to muscle tendon status post second toe amputation slightly increased granulation stable slough slight central tunneling without undermining, overallstable Procedure Note: Wound #1 Time-out: 4288 Grafting: Kerecis 4 cm?? micronized, 100% utilized, 14.52 cm?? 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 micronized, 100% utilized, 14.52 cm?? total grafted Dressing: -125 mmHg KCI wound VAC Off-loading: Wheelchair Compression: Stockinette 2 layer Tubigrip. [...] st Contact Info) Description 08/24/2024 8:30 AM BRUSHER HAND Office Visit [facility] Wound Care [address] [place] [address] 08/24/2024 11:30 AM BRUSHER HAND Office Visit Podiatry [address] [place] [address] Angel Coombs DPM [address] [place] [phone] 08/25/2024 8:30 AM BRUSHER HAND Office Visit [facility] [address] [place] [phone] 08/26/2024 8:30 AM BRUSHER HAND Office Visit [facility] [address] [place] [phone] 08/27/2024 8:30 AM BRUSHER HAND Office Visit [facility] [address] [place] [phone] 08/27/2024 11:00 AM BRUSHER HAND Office Visit [facility] [address] [place] [address] Vilma Neves MD [address] [place] [phone] 08/28/2024 8:30 AM BRUSHER HAND Office Visit [facility] [address] [place] [address] 08/31/2024 8:30 AM BRUSHER HAND Office Visit [facility] [address] [place] [address] 09/01/2024 8:30 AM BRUSHER HAND Office Visit [facility] [address] [place] [address] 119[address] 09/02/2024 8:30 AM BRUSHER HAND [facility] Visit [facility] Wound Care [address] [place] [phone] 09/03/2024 8:30 AM BRUSHER HAND Office Visit [facility] [address] [place] [phone] 09/03/2024 11:00 AM BRUSHER HAND Office Visit [facility] [address] [place] [address] Vilma Neves MD [address] [place] [phone] 09/03/2024 11:00 AM BRUSHER HAND Office Visit [facility] Infectious Disease [address] [place] [address]167 Amairani Sigala MD [address] [place] [phone] 09/04/2024 8:30 AM BRUSHER HAND Office Visit [facility] Wound Care [address] [place] [address] 09/07/2024 8:30 AM BRUSHER HAND Office Visit [facility] Wound Care [address] [place] [phone] 09/08/2024 8:30 AM BRUSHER HAND Office Visit [facility] Wound Care [address] [place] [address] 09/09/2024 8:30 AM BRUSHER HAND Office Visit [facility] Wound Care [address] [place] [address]24[address] 09/10/2024 8:30 AM BRUSHER HAND Office Visit [facility] Wound Care [address] [place] [address] 89[address] 09/10/2024 11:20 AM BRUSHER HAND Office Visit [facility] Wound Care [address] [place] [address] Vilma Neves MD [address] [place] [address] [phone] 09/11/2024 8:30 AM BRUSHER HAND Office Visit [facility] Wound Care [address] [place] [address] 09/14/2024 8:30 AM BRUSHER HAND Office Visit [facility] Wound Care [address] [place] [address] 09/15/2024 8:30 AM BRUSHER HAND Office Visit [facility] Wound Care [address] [place] [address] documented as of this encounter Visit Diagnoses Diagnosis Diabetic ulcer of right midfoot associated with type 2 diabetes mellitus, 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
--- OUTSIDE RECORDS SUMMARY | 2024-08-21 10:23 | XMS_ITS | Encounter Summary ---
Author Organization [facility] er Address [address] [place] [address] 20785 Care Team Providers Care Crab Meat Processor Name Role Phone Thu Bhagat PA-C Primary Care Provider [phone] Reason for Visit * Reason Comments Dressing Change * Consultation (Routine) - Authorized Specialty Diagnoses / Procedures Referred By Contac t Referred To Contact Wound Care Diagnoses Cellulitis, unspecified Procedures Wound Clinic Thu Bhagat PA-C 1 [place] [phone] [facility] W[facility] Care [address] [place] [address] Referral ID Status Reason Start Date Expiration Date V isits Requested Visits Authorized [id number] Authorized 06/17/2024 12/15/2024 99 99 Encounter Details Date Type Department Care Team (Latest Contact Info) Description 07/10/2024 10:15 AM CDT Clinical Support [facility] Wound Care [address] [place] [address] Change of dressing [Z48.00] (Primary Dx) Social History Tobacco Use Types [...] often do you attend chur ch or yazidism services? More than 4 times per year [...] 0 06/06/2024 [facility] [place] - Occupational Stress Questionnaire Answer Date Recorded [...] [facility] in the [facility] were [facility] homeless or living in a [...] * Patient Instructions* Valeria Tobar RN - 07/10/2024 10:15 AM CDT Keep dressings clean and dry; call the wound clinic with any questions or concerns. documented in this encounter Progress Notes * Valeria Tobar RN - 07/10/2024 10:15 AM CDT Images from the original note were not included. 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 (Active) Wound Image 07/07/24 1500 Wound Length (cm) 6.8 cm 07/10/24 1441 Wound Width (cm) 2 cm 07/10/24 1441 Wound Depth (cm) 1.3 cm 07/10/24 1441 Wound Area (cm^2) 13.6 cm^2 07/10/24 1441 Wound Volume (cm^3) 17.68 cm^3 07/10/24 1441 Wound Healing % 77 07/10/24 1441 Inflammation No 07/10/24 1441 Granulation % 80 % 07/10/24 1441 Slough % 20 % 07/10/24 1441 Structures Exposed Fat 07/10/24 1441 Exudate Type Serosanguinous 07/10/24 1441 Exudate Amount Moderate 07/10/24 1441 Wound Edges Attached 07/10/24 1441 Cassie-wound Skin Intact 07/10/24 1441 Periwound Skin Treatment Calmoseptime 07/10/24 1441 Odor No 07/10/24 1441 Cellular or Tissue Based Product Type Cellular or Tissue Based Product Expiration Date Cellular or Tissue Based Product Applied (%) Cellular or Tissue Based Product Amount Wasted (%) Cellular or Tissue Based Products Affixed With NPWT Status Hold 07/10/24 1441 NPWT Type KCI Wound Vac 07/10/24 1441 NPWT Pressure Setting (mmHg) NPWT Pressure Setting NPWT Type of Sponge NPWT # of Dressing Removed NPWT # of Dressings Applied Change Dressings Per Week Compression Applied To RLE 07/10/24 1441 Compression Type Tubigrip 07/10/24 1441 Compression Wrap Rewrap PRN if loose 07/10/24 1441 Wound/Ulcer Cleaning Rinsed/irrigated with saline 07/10/24 1441 Primary Dessing Applied Collagen 07/10/24 1441 Primary Dressing Type Promogran 07/10/24 1441 Remove dressing Yes 07/10/24 1441 Change Dressings Per Week 3 07/10/24 1441 Covered/Secured With Hydrofera blue ready 4x5, abd pad, afshin 07/10/24 1441 Remove dressing Yes 07/10/24 1441 Change Dressings Per Week 3 07/10/[address] Yes 07/10/24 1441 Offloading Used Yes 07/10/24 1441 Type of Offloading Used Rooke Boot 07/10/24 1441 Offloading Laterality RLE 07/10/24 1441 Offloading Compliance Yes 07/10/24 1441 Incision/Surgical Site 06/08/24 Toe D2, second Anterior;Right (Active) Incision/Surgical Site 06/12/24 Toe D2, second Anterior;Right (Active) documented in this encounter Plan of Treatment Upcoming Encounters Date Type Department Care Team (Late st Contact Info) Description 08/24/2024 8:30 AM LEVEL VIAL SEALER Office Visit [facility] Wound Care [address] [place] [address] 08/24/2024 11:30 AM LEVEL VIAL SEALER Office Visit [facility] [address] [place] [phone] Angel Coombs, DPM [address] [place] [phone] 08/25/2024 8:30 AM LEVEL VIAL SEALER Office Visit [facility] Wound Care [address] [place] [address] 08/26/2024 8:30 AM LEVEL VIAL SEALER Office Visit [facility] Wound Care [address] [place] [address]8973 08/27/2024 8:30 AM LEVEL VIAL SEALER Office [facility] [address] [place] [address] 22878 08/27/2024 11:00 AM LEVEL VIAL SEALER Office [facility] [address] [place] [address]49 Vilma Neves MD [address] [place] [phone] 08/28/2024 8:30 AM LEVEL VIAL SEALER Office [facility] [address] [place] [address]130 08/31/2024 8:30 AM LEVEL VIAL SEALER Office Visit [facility] [address] [place] [address] [phone] 09/01/2024 8:30 AM LEVEL VIAL SEALER Office Visit [facility] Wound Care [address] [place] [address] 92395 09/02/2024 8:30 AM LEVEL VIAL SEALER Office Visit [facility] [address] [place] [address] [phone] 09/03/2024 8:30 AM LEVEL VIAL SEALER Office Visit [facility] [address] [place] [address] 17620 09/03/2024 11:00 AM LEVEL VIAL SEALER Office Visit [facility] [address] [place] [address] 54694 Vilma Neves MD [address] [place] [phone] 09/03/2024 11:00 AM LEVEL VIAL SEALER Office [facility] Infectious Disease [address] [place] [address] 77773 Amairani Sigala MD [address] [place] [phone] 09/04/2024 8:30 AM LEVEL VIAL SEALER Office Visit [facility] [address] [place] [address] 13122 09/07/2024 8:30 AM LEVEL VIAL SEALER Office Visit [facility] Wound Care [address] [place] [address] 67085 09/08/2024 8:30 AM LEVEL VIAL SEALER Office Visit [facility] Wound Care [address] [place] [address] 28784 09/09/2024 8:30 AM LEVEL VIAL SEALER Office Visit [facility] Wound Care [address] [place] [address] 86936 09/10/2024 8:30 AM LEVEL VIAL SEALER Office Visit [facility] Wound Care [address] [place] [address] 79552 09/10/2024 11:20 AM LEVEL VIAL SEALER Office Visit [facility] Wound Care [address] [place] [address] [phone] Vilma Neves MD [address] [place] [phone] 09/11/2024 8:30 AM LEVEL VIAL SEALER Office Visit [facility] Wound Care [address] [place] [address] 26578 09/14/2024 8:30 AM LEVEL VIAL SEALER Office Visit [facility] Wound Care [address] [place] [address] 70650 09/15/2024 8:30 AM LEVEL VIAL SEALER Office Visit [facility] Wound Care [address] [place] [address] 72522 documented as of this encounter Visit Diagnoses Diagnosis Change of dressing [Z48.00]- Primary Encounter for change or removal of nonsurgical wound dressing documented in this encounter Additional Health Concerns Infection Onset Date Last Indicated Resolved Time MSSA 06/06/2024 06/12/2024 07/13/2024 9:58 AM CDT documented as of this encounter Care Teams Crab Meat Processor Relationship Specialty Start Date End Date Thu Bhagat PA-C 1 [place] [phone] PCP - General 11/26/22 documented as of this encounter
--- OUTSIDE RECORDS SUMMARY | 2024-08-21 10:24 | XMS_ITS | Encounter Summary ---
Author Organization [facility] er Address [address] [place] [address] Care Team Providers Care Fur Designer Name Role Phone Thu Bhagat PA-C Primary Care Provider [phone] Reason for Visit * Reason Comments OP Infusion * Consultation (Routine) - Canceled Specialty Diagnoses / Procedures Referred By Kaley t Referred To Contact Infusion Therapy Diagnoses Infection of right foot Pina Méndez MD [address] [place] [phone] [facility] Infusion Therapy [address] [place] [address] Referral ID Status Reason Start Date Expiration Date Visits Requested Visits Authorized [id number] Canceled Specialty Services Required 06/17/2024 10/16/2024 99 99 Encounter Details Date Type Department Care Team ([facility] st Contact Info) Description 06/25/2024 2:00 PM CDT Infusion [facility] Infusion Therapy [address] [place] [address]04 Infection of right foot (Primary Dx) [...] your doctor or pharmacy? Never 06/06/2024 [facility] Utilities Answer Date Recorded In [...] any clubs o r organizations such as buddhism groups, unions, fraternal or athletic groups, or [...] Recorded Patient Health Questionnaire-2 Score 0 06/06/2024 [facility] - Occupational Stress Questionnaire Answer Date [...] any time in the past 12 m [facility], were you homeless or living in [...] Sign Reading Time Taken Comments Blood Pressure 97/65 06/25/2024 12:55 PM CDT Pulse 92 06/25/2024 12:56 PM CDT Temperature 36 ??C (96.8 ??F) 06/25/2024 12:55 PM CDT Respiratory Rate 18 06/25/2024 12:55 PM CDT Oxygen Saturation 91% 06/25/2024 12:56 PM CDT Inhaled Oxygen Concentration - - Weight - - Height - - Body Mass Index - - documented in this encounter Progress Notes * Jasiel Rust, PharmD - 06/25/2024 2:00 PM CDT Received phone call from [facility] home infusion. Provided verbal order for ertapenem 1g Q24H with tentative stop date of 07/16/24. Also verbal order for 10 mL 0.9% NaCl flush before and after drug administration. Home infusion service will start tomorrow, 06/26/24. documented in this encounter Plan of Treatment Upcoming Encounters Date Type Department Care Team (Late st Contact Info) Description 08/24/2024 8:30 AM BULK GAS SPECIALIST Office Visit [facility] Wound Care [facility] [address] [place] [address] [phone] 08/24/2024 11:30 AM BULK GAS SPECIALIST Office Visit [facility] [address], [place] [phone] Angel Coombs, DPM [address] [place] [phone] 08/25/2024 8:30 AM BULK GAS SPECIALIST Office Visit [facility] Wound Care [address] [place] [address]697 08/26/2024 8:30 AM BULK GAS SPECIALIST Office Visit [facility] Wound Care [address] [place] [address] [phone] 08/27/2024 8:30 AM BULK GAS SPECIALIST Office Visit [facility] Wound Care [address] [place] [address] 08/27/2024 11:00 AM BULK GAS SPECIALIST Office Visit [facility] [address] [place] [address] Vilma Neves MD [address] [place] [phone] 08/28/2024 8:30 AM BULK GAS SPECIALIST Office Visit [facility] Wound Care [address] [place] [address] 56487 08/31/2024 8:30 AM BULK GAS SPECIALIST Office Visit [facility] Wound Care [address] [place] [address] 05871 09/01/2024 8:30 AM BULK GAS SPECIALIST Office Visit [facility] W[facility] [address] [place] [address] 42465 09/02/2024 8:30 AM BULK GAS SPECIALIST Office Visit [facility] W[facility] [address] [place] [address] 82666 09/03/2024 8:30 AM BULK GAS SPECIALIST Office Visit [facility] W[facility] [address] [place] [address] 80823 09/03/2024 11:00 AM BULK GAS SPECIALIST Office Visit [facility] Wound Care [address] [place] [address] 09908 Vilma Neves MD [address] [place] [phone] 09/03/2024 11:00 AM BULK GAS SPECIALIST Office Visit [facility] Infectious Disease [address] [place] [address] 18632 Amairani Sigala MD [address] [place] [phone] 09/04/2024 8:30 AM BULK GAS SPECIALIST Office Visit [facility] W[facility] Care [address] [place] [address] 15861 09/07/2024 8:30 AM BULK GAS SPECIALIST Office Visit [facility] Wound Care [address] [place] [address] 19805 09/08/2024 8:30 AM BULK GAS SPECIALIST Office Visit [facility] Wound Care [address] [place] [address] 48440 09/09/2024 8:30 AM BULK GAS SPECIALIST Office Visit [facility] Wound Care [address] [place] [address] 21454 09/10/2024 8:30 AM BULK GAS SPECIALIST Office Visit [facility] Wound Care [address] [place] [address] 09664 09/10/2024 11:20 AM BULK GAS SPECIALIST Office Visit [facility] Wound Care [address] [place] [address] 66948 Vilma Neves MD [address] [place] [address] [phone] 09/11/2024 8:30 AM BULK GAS SPECIALIST Office Visit [facility] Wound Care [address] [place] [address] 40225 09/14/2024 8:30 AM BULK GAS SPECIALIST Office Visit [facility] Wound Care [address] [place] [address] [phone] 09/15/2024 8:30 AM BULK GAS SPECIALIST Office Visit [facility] Wound Care [address] [place] [address] 6[address]20 documented as of this encounter Visit Diagnoses Diagnosis Infection of right foot- Primary documented in this encounter Administered Medications Inactive Administered Medications - up to 3 most recent administrations Medication Order MAR Action Action Date Dose Rate Site ertapenem (INVanz) 1 g in sodium chloride 0.9 % 50 mL [id number] Plus 1 g, Intravenous, at 100 mL/hr, Administer over 30 Minutes, Every 24 hours, First dose on Sat06/26/24 at 1300, For 30 days, Indication: Cellulitis New Bag 06/25/2024 12:57 PM CDT 1 g 100 mL/hr documented in this encounter Additional Health Concerns Infection Onset Date Last Indicated Resolved Time MSSA 06/06/2024 06/12/2024 07/13/2024 9:58 AM CDT documented as of this encounter Care Teams Fur Designer Relationship Specialty Start Date End Date Thu Bhagat PA-C [address] [facility] [phone] PCP - General 11/26/22 documented as of this encounter
--- OUTSIDE RECORDS SUMMARY | 2024-08-21 10:24 | XMS_ITS | Encounter Summary ---
Author Organization [facility] er Address [address] [place] [address] Care Team Providers Care Math Tutor Name Role Phone Thu Bhagat PA-C Primary Care Provider [phone] Reason for Visit * Reason Comments OP Infusion * Consultation (Routine) - Canceled Specialty Diagnoses / Procedures Referred By Kaley t Referred To Contact Infusion Therapy Diagnoses Infection of right foot Pina Méndez MD [address] [place] [phone] [facility] Infusion Therapy [address] [place] [address] Referral ID Status Reason Start Date Expiration Date Visits Requested Visits Authorized [id number] Canceled Specialty Services Required 06/17/2024 10/16/2024 99 99 Encounter Details Date Type Department Care Team ([facility] st Contact Info) Description 06/24/2024 2:00 PM CDT Infusion [facility] Infusion Therapy [address] [place] [address] Infection of right foot (Primary Dx) [...] from your doctor or pharmacy? Never 06/06/2024 [facility] Utilities Answer Date Recorded In the [...] often do you attend chur ch or mu-ism services? More than 4 times per year 06/06/2024 Do you belong to any clubs o r organizations such as buddhist groups, unions, fraternal or athletic groups, or [...] Recorded Patient Health Questionnaire-2 Score 0 06/06/2024 [facility] - Occupational Stress Questionnaire Answer Date [...] any time in the past 12 m [facility], were you homeless or living in a [...] as of this encounter Progress Notes * Evelyn Aleman BSN - 06/24/2024 2:16 PM CDT Britney Hardwick RN from [facility] here meeting with patient and his significant other to do teaching on how to do home infusions. Mr. Hardwick states that the home infusions will not be able to begin until 06/26/24. Therefore, pt will return here to [facility] tomorrow (06/25/24) for antibiotic dose. Then begin home infusion on 06/26/24. Pt will return to [facility] on 06/30/24 for labs and PICC dressing change. Appointment schedule given to patient and significant other. MeU documented in this encounter Plan of Treatment Upcoming Encounters Date Type Department Care Team (Late st Contact Info) Description 08/24/2024 8:30 AM TRANSIT VEHICLE INSPECTOR Office Visit [facility] Wound Care [address] [place] [address] 08/24/2024 11:30 AM TRANSIT VEHICLE INSPECTOR [facility] [address] [address] Angel Coombs, DPM [address] [place] [phone] 08/25/2024 8:30 AM TRANSIT VEHICLE INSPECTOR Office Visit [facility] Wound Care [address] [place] [address] 08/26/2024 8:30 AM TRANSIT VEHICLE INSPECTOR Office Visit [facility] Wound Care [address] [place] [address] 08/27/2024 8:30 AM TRANSIT VEHICLE INSPECTOR Office Visit [facility] Wound Care [address] [place] [address] 08/27/2024 11:00 AM TRANSIT VEHICLE INSPECTOR Office Visit [facility] Wound Care [address] [place] [address] Vilma Neves MD [address] [place] [phone] 08/28/2024 8:30 AM TRANSIT VEHICLE INSPECTOR Office Visit [facility] Wound Care [address] [place] [phone] 08/31/2024 8:30 AM TRANSIT VEHICLE INSPECTOR Office Visit [facility] Wound Care [address] [place] [address] 09/01/2024 8:30 AM TRANSIT VEHICLE INSPECTOR Office Visit [facility] Wound Care [address] [place] [address] 297[address] 09/02/2024 8:30 AM TRANSIT VEHICLE INSPECTOR Office Visit [facility] Wound Care [address] [place] [address] 09/03/2024 8:30 AM TRANSIT VEHICLE INSPECTOR Office Visit [facility] Wound Care [address] [place] [address] 09/03/2024 11:00 AM TRANSIT VEHICLE INSPECTOR Office Visit [facility] Wound Care [address] [place] [address] Vilma Neves MD [address] [place] [phone] 09/03/2024 11:00 AM TRANSIT VEHICLE INSPECTOR Office Visit [facility] Infectious Disease [address] [place] [address] Amairani Sigala MD [address] [place] [phone] 09/04/2024 8:30 AM TRANSIT VEHICLE INSPECTOR Office Visit [facility] Wound Care [address] [place] [address] [phone] 09/07/2024 8:30 AM TRANSIT VEHICLE INSPECTOR Office Visit [facility] Wound Care [address] [place] [address] 09/08/2024 8:30 AM TRANSIT VEHICLE INSPECTOR [facility] [address] [place] [address] 09/09/2024 8:30 AM TRANSIT VEHICLE INSPECTOR Office Visit [facility] Wound Care [address] [place] [address] 09/10/2024 8:30 AM TRANSIT VEHICLE INSPECTOR Office Visit [facility] Wound Care [address] [place] [address] 09/10/2024 11:20 AM TRANSIT VEHICLE INSPECTOR Office Visit [facility] Wound Care [address] [place] [address] 724[address] Vilma Neves MD [address] [place] [address] [phone] 09/11/2024 8:30 AM TRANSIT VEHICLE INSPECTOR Office Visit [facility] Wound Care [address] [place] [address] 858[address] 09/14/2024 8:30 AM TRANSIT VEHICLE INSPECTOR Office Visit [facility] Wound Care [address] [place] [address] 88316 09/15/2024 8:30 AM TRANSIT VEHICLE INSPECTOR Office Visit [facility] Wound Care [address] [place] [address] documented as of this encounter Visit Diagnoses Diagnosis Infection of right foot- Primary documented in this encounter Administered Medications Inactive Administered Medications - up to 3 most recent administrations Medication Order MAR Action Action Date Dose Rate Site ertapenem (INVanz) 1 g in sodium chloride 0.9 % 50 mL ETUG-Lujb-Tha Plus 1 g, Intravenous, at 100 mL/hr, Administer over 30 Minutes, Every 24 hours, First dose on Sat06/24/24 at 1400, For 30 days, Indication: Cellulitis New Bag 06/24/2024 2:07 PM CDT 1 g 10 0 mL/hr documented in this encounter Additional Health Concerns Infection Onset Date Last Indicated Resolved Time MSSA 06/06/2024 06/12/2024 07/13/2024 9:58 AM CDT documented as of this encounter Care Teams Math Tutor Relationship Specialty Start Date End Date Thu Bhagat PA-C 1 [place] [phone] PCP - General 11/26/22 documented as of this encounter
--- OUTSIDE RECORDS SUMMARY | 2024-08-21 10:24 | XMS_ITS | Encounter Summary ---
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) Vilma Neves MD [address] [place] [phone] Referral ID Status Reason Start Date Expiration Date Visits Requested Visits Authorized [id number] Authorized Specialty Services Required 06/30/2024 12/15/2024 1 1 Reason for Visit * Reason Comments Wound Care * Consultation (Routine) - Authorized Specialty Diagnoses / Procedures Referred By Contac t Referred To Contact Wound Care Diagnoses Cellulitis, unspecified Procedures Wound Clinic Thu Bhagat PA-C 1 [place] [phone] [facility] Wound Care [address] [place] [address] Referral ID Status Reason Start Date Expiration Date V isits Requested Visits Authorized [id number] Authorized 06/17/2024 12/15/2024 99 99 Encounter Details Date Type Department Care Team ([facility] st Contact Info) Description 06/30/2024 3:15 PM CDT Office Visit [facility] Wound Care [address] [place] [phone] Vilma Neves MD [address] [place] [phone] Diabetic ulcer of right midfoot associated with [...] from your doctor or pharmacy? Never 06/06/2024 [facility] Utilities Answer Date Recorded In the past 12 months has [facility] [employer], oil, or water natue threatened to shut off services in your [...] do you attend [facility] or quaker services? More than 4 times per year 06/06/2024 Do you belong to any clubs o r organizations such as roman catholic groups, unions, fraternal or athletic groups, [...] Recorded Patient Health Questionnaire-2 Score 0 06/06/2024 [facility] - [...] * Patient Instructions* Valeria Tobar RN - 06/30/2024 3:15 PM CDT Keep dressings clean and dry; call the wound clinic with any questions or concerns. 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) - [facility] Wound Care Graft Wound / Level of debridement: Wound #1-muscle Dressing: -125 mmHg KCI wound VAC Off-loading: [...] Return to the wound clinic: 1 week Vilam Neves MD documented in this encounter Plan of Treatment Upcoming Encounters Date Type Department Care Team (Late st Contact Info) Description 08/24/2024 8:30 AM WEB COORDINATOR Office Visit [facility] [address] [place] [address] 08/24/2024 11:30 AM WEB COORDINATOR [facility] [address] [place] [address] Angel Coombs, DPM [address] [place] [phone] 08/25/2024 8:30 AM WEB COORDINATOR Office Visit [facility] Wound Care [address] [place] [address] 08/26/2024 8:30 AM WEB COORDINATOR [facility] [address] [place] [address] 08/27/2024 8:30 AM WEB COORDINATOR Office Visit [facility] Wound Care [address] [place] [address] 249[address] 08/27/2024 11:00 AM WEB COORDINATOR Office Visit [facility] Wound Care [address] [place] [address] 8[address] Vilma Neves MD [address] [place] [phone] 08/28/2024 8:30 AM WEB COORDINATOR Office Visit [facility] Wound Care [address] [place] [address] 92453 08/31/2024 8:30 AM WEB COORDINATOR [facility] [address] [place] [address] 89312 09/01/2024 8:30 AM WEB COORDINATOR Office Visit [facility] [address] [place] [address] 89545 09/02/2024 8:30 AM WEB COORDINATOR [facility] [address] [place] [address] 16534 09/03/2024 8:30 AM WEB COORDINATOR Office Visit [facility] Wound Care [address] [place] [address] 13268 09/03/2024 11:00 AM WEB COORDINATOR [facility] [address] [place] [phone] Vilma Neves MD [address] [place] [phone] 09/03/2024 11:00 AM WEB COORDINATOR Office Visit [facility] Infectious Disease [address] [place] [address] 98727 Amairani Sigala MD [address] [place] [phone] 09/04/2024 8:30 AM WEB COORDINATOR Office Visit [facility] Wound Care [address] [place] [address] [phone] 09/07/2024 8:30 AM WEB COORDINATOR Office Visit [facility] Wound Care [address] [place] [address] 87701 09/08/2024 8:30 AM WEB COORDINATOR Office Visit [facility] Wound Care [address] [place] [address] 00269 09/09/2024 8:30 AM WEB COORDINATOR Office Visit [facility] Wound Care [address] [place] [address] [phone] 09/10/2024 8:30 AM WEB COORDINATOR Office Visit [facility] Wound Care [address] [place] [address] 61584 09/10/2024 11:20 AM WEB COORDINATOR Office Visit [facility] Wound Care [address] [place] [address] 12575 Vilma Neves MD [address] [place] [phone] 09/11/2024 8:30 AM WEB COORDINATOR Office Visit [facility] Wound Care [address] [place] [address] 97556 09/14/2024 8:30 AM WEB COORDINATOR Office Visit [facility] Wound Care [address] [place] [address] 64775 09/15/2024 8:30 AM WEB COORDINATOR Office Visit [facility] Wound Care [address] [place] [address] Scheduled Referrals Name Type Priority Associated Diagnoses Orde r Schedule [facility] Wound Care Graft Outpatient Referral Routine Diabetic ulcer of right midfoot associated with type 2 diabetes mellitus, 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
--- OUTSIDE RECORDS SUMMARY | 2024-08-21 10:24 | XMS_ITS | Encounter Summary ---
Author Organization [facility] er Address [address] [place] [address] Care Team Providers Care Custom Tailor Apprentice Name Role Phone Thu Bhagat PA-C Primary Care Provider Reason for Visit * Consultation (Routine) - Authorized Specialty Diagnoses / Procedures Referred By Contac t Referred To Contact Wound Care Diagnoses Cellulitis, unspecified Procedures Wound Clinic Thu Bhagat PA-C [address] [place] [phone] [facility] Wound Care [address] [place] [address] Referral ID Status Reason Start Date Expiration Date V isits Requested Visits Authorized [id number] Authorized 06/17/2024 12/15/2024 99 99 Encounter Details Date Type Department Care Team (Late st Contact Info) Description 06/25/2024 9:00 AM CDT Office Visit [facility] Wound Care [address] [place] [phone] [place] [address] [place] [phone] Infection of right foot (Primary Dx) [...] doctor or pharmacy? Never 06/06/2024 [facility] Utilities Answer Date Recorded In the past [...] Recorded Patient Health Questionnaire-2 Score 0 06/06/2024 [facility] - Occupational Stress Questionnaire Answer Date [...] any time in the past 12 m [facility], were you homeless or [...] as of this encounter Progress Notes * Amairani Sigala MD - 06/25/2024 9:00 AM CDT INFECTIOUS DISEASES progress note 06/25/24 Reason For Consult: Diabetic foot infection /abscess in the foot Subjective Patient is seen at the wound care as a follow-up. He has had surgery on 06/08 and 06/12 over his right foot. He was discharged home, and has been doing infusion with ertapenem daily. He is tolerating the antibiotic no side effects no confusion no nausea no vomiting no diarrhea. Denies any fever or chills. Pathology was positive at resection margin, though elected the patient to be treated for osteomyelitis. HISTORY OF PRESENT ILLNESS It is my [...] total) by mouth 2 times daily Yes Jake Shah MD aspirin EC 81 MG EC tablet [...] by mouth 2 (two) times a day ProviderJake MD UNABLE TO FIND Med Name: Neurvive supplement Provider, MD Jake Vitamin D, Cholecalciferol, 25 MCG (1000 UT) tablet Take 1,000 Units by mouth 1 (one) time each dayProviJake bauman MD Objective PHYSICAL EXAM Visit Vitals Smoking Status Never Physical Exam GENERAL: No acute distress. HEENT: OP clear - non icteric sclera, - no thrush, no ulcers NECK: Supple, CHEST: comfortable breathing ABDOMEN: Soft. Nontender. Nondistended. 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 No drainage and it does not probe to bone SKIN: Sweat rash noted over the back NEURO: Awake, alert, and oriented to baseline. No acute focal sensorimotor deficits. PICC line site is clean LAB STUDIES Lab Results Component Value Date WBC 8.0 06/23/2024 HGB 16.0 06/23/2024 HCT 49.4 06/23/2024 MCV 91.3 06/23/2024 PLT 324 06/23/2024 Lab Results Component Value Date GLUCOSE 146 (H) 06/23/2024 CALCIUM 9.1 06/23/2024 NA 137 06/23/2024 K 4.5 06/23/2024 CO2 27 06/23/2024 CL 103 06/23/2024 BUN 16 06/23/2024 CREATININE 1.16 06/23/2024 Lab Results Component Value Date CRP >320.0 (H) 06/06/2024 Lab Results Component Value Date ALT 24 06/23/2024 AST 25 06/23/2024 ALKPHOS 66 06/23/2024 BILITOT 0.7 06/23/2024 No results found for: IV2GLANN No results found for: HAV, HEPAIGM, HEPBIGM, [...] granulation tissue. No drainage no surrounding erythema. 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 Recommendations: -Continue ertapenem at 1 g IV daily, the plan is to continue until July 20- -Weekly labs on antibiotic -Return to clinic in 2 weeks. Discussed side effects of the antibiotic with the patient is set to use and start home infusion soon Greater than 30 minutes of total time spent in patient's care such as (preparation/review of tests,obtaining/reviewing separately obtained history, medically appropriate examination/evaluation, counseling/educating patient/family/caregiver, ordering medications/tests/procedures, referring/communicating with other health special needs child caregiver not separately reported, documentation, and independentlyinterpreting results not separately reported, communicating results to the patient/family/caregiver, and care coordination not separately reported). Amairani Strickland MD Infectious diseases Home Health Nurse documented in this encounter Plan of Treatment Upcoming Encounters Date Type Department Care Team (Late st Contact Info) Description 08/24/2024 8:30 AM CHRONOMETER TESTER Office Visit [facility] Wound Care [address] [place] [phone] 08/24/2024 11:30 AM CHRONOMETER TESTER [facility] [address] [place] [phone] Angel Coombs DPM [address] [place] [phone] 08/25/2024 8:30 AM CHRONOMETER TESTER Office Visit [facility] Wound Care [address] [place] [address] 27027 08/26/2024 8:30 AM CHRONOMETER TESTER Office Visit [facility] Wound Care [address] [place] [address] 33838 08/27/2024 8:30 AM CHRONOMETER TESTER Office Visit [facility] Wound Care [address] [place] [address] 58719 08/27/2024 11:00 AM CHRONOMETER TESTER Office Visit [facility] Wound Care [address] [place] [address] 06288 Vilma Neves MD [address] [place] [phone] 08/28/2024 8:30 AM CHRONOMETER TESTER Office Visit [facility] Wound Care [address] [place] [address] 48438 08/31/2024 8:30 AM CHRONOMETER TESTER Office Visit [facility] Wound Care [address] [place] [address] [phone] 09/01/2024 8:30 AM CHRONOMETER TESTER Office Visit [facility] Wound Care [address] [place] [address] 33914 09/02/2024 8:30 AM CHRONOMETER TESTER Office Visit [facility] Wound Care [address] [place] [address] 67716 09/03/2024 8:30 AM CHRONOMETER TESTER Office Visit [facility] Wound Care [address] [place] [address] 55865 09/03/2024 11:00 AM CHRONOMETER TESTER Office Visit [facility] Wound Care [address] [place] [address] [phone] Vilma Neves MD [address] [place] [phone] 09/03/2024 11:00 AM CHRONOMETER TESTER Office Visit [facility] Infectious Disease [address] [place] [address] 28747 Amairani Sigala MD [address] [place] [phone] 09/04/2024 8:30 AM CHRONOMETER TESTER Office Visit [facility] Wound Care [address] [place] [address] 74940 09/07/2024 8:30 AM CHRONOMETER TESTER Office Visit [facility] Wound Care [address] [place] [address] 45698 09/08/2024 8:30 AM CHRONOMETER TESTER Office Visit [facility] Wound Care [address] [place] [address] [phone] 09/09/2024 8:30 AM CHRONOMETER TESTER Office Visit [facility] Wound Care [address] [place] [address] 06064 09/10/2024 8:30 AM CHRONOMETER TESTER Office Visit [facility] Wound Care [address] [place] [address] 39700 09/10/2024 11:20 AM CHRONOMETER TESTER Office Visit [facility] Wound Care [address] [place] [address] [phone] Vilma Neves MD [address] [place] [phone] 09/11/2024 8:30 AM CHRONOMETER TESTER Office Visit [facility] Wound Care [address] [place] [address] [phone] 09/14/2024 8:30 AM CHRONOMETER TESTER Office Visit [facility] Wound Care [address] [place] [address] 70121 09/15/2024 8:30 AM CHRONOMETER TESTER Office Visit [facility] Wound Care [address] [place] [address] [phone] documented as of this encounter Visit Diagnoses Diagnosis Infection of right foot- Primary documented in this encounter Additional Health Concerns Infection Onset Date Last Indicated Resolved Time MSSA 06/06/2024 06/12/2024 07/13/2024 9:58 AM CDT documented as of this encounter Care Teams Custom Tailor Apprentice Relationship Specialty Start Date End Date Thu Bhagat PA-C 1 [place] [phone] PCP - General 11/26/22 documented as of this encounter
--- OUTSIDE RECORDS SUMMARY | 2024-08-21 10:24 | XMS_ITS | Encounter Summary ---
Author Organization [facility] er Address [address] [place] [address] Care Team Providers Care Delivery Driver/Supervisor Name Role Phone Thu Bhagat PA-C Primary Care Provider [phone] Reason for Visit * Reason Onset Date Comments [place] request [place] received 06/30/2024 Encounter Details Date Type Department Care Team (Late st Contact Info) Description 06/30/2024 Telephone [facility] [address] [place] [address] [place] [address] [place] [phone] [place] Social History Tobacco Use Types Packs/Day Years [...] doctor or pharmacy? Never 06/06/2024 [facility] Utilities Answer Date Recorded In the [...] How often do you attend chur or quaker services? More than 4 times [...] Recorded Patient Health Questionnaire-2 Score 0 06/06/2024 [facility] Occupat ional Health - Occupational Stress [...] in the past 12 m [facility], were you homeless or living in a [...] * Telephone Encounter - Ce Santiago - 06/30/2024 2:03 PM CDT Fax received from [place] stating that request for HBOT has been received and someone from the [place] community care team will contact us upon approval form placed in front of pt's binder documented in this encounter Plan of Treatment Upcoming Encounters Date Type Department Care Team (Late st Contact Info) Description 08/24/2024 8:30 AM SENIOR ELECTRONICS TECHNICIAN Office Visit [facility] Wound Care [address] [place] [address] 08/24/2024 11:30 AM SENIOR ELECTRONICS TECHNICIAN [facility] [address], [place] [address] Angel Coombs DPM [address] [place] [phone] 08/25/2024 8:30 AM SENIOR ELECTRONICS TECHNICIAN Office Visit [facility] [address] [place] [address] 08/26/2024 8:30 AM SENIOR ELECTRONICS TECHNICIAN Office Visit [facility] [address] [place] [address] 08/27/2024 8:30 AM SENIOR ELECTRONICS TECHNICIAN Office Visit [facility] [address] [place] [phone] 08/27/2024 11:00 AM SENIOR ELECTRONICS TECHNICIAN Office Visit [facility] [address] [place] [phone] Vilma Neves MD [address] [place] [phone] 08/28/2024 8:30 AM SENIOR ELECTRONICS TECHNICIAN Office Visit [facility] [address] [place] [address] 08/31/2024 8:30 AM SENIOR ELECTRONICS TECHNICIAN Office Visit [facility] [address] [place] [address] 09/01/2024 8:30 AM SENIOR ELECTRONICS TECHNICIAN Office Visit [facility] Wound Care [address] [place] [phone] 09/02/2024 8:30 AM SENIOR ELECTRONICS TECHNICIAN Office Visit [facility] [address] [place] [phone] 09/03/2024 8:30 AM SENIOR ELECTRONICS TECHNICIAN Office Visit [facility] [address] [place] [address] 09/03/2024 11:00 AM SENIOR ELECTRONICS TECHNICIAN Office Visit [facility] Wound Care [address] [place] [address] Vilma Neves MD [address] [place] [phone] 09/03/2024 11:00 AM SENIOR ELECTRONICS TECHNICIAN Office Visit [facility] Infectious Disease [address] [place] [phone] Amairani Sigala MD [address] [place] [phone] 09/04/2024 8:30 AM SENIOR ELECTRONICS TECHNICIAN Office Visit [facility] [address] [place] [phone] 09/07/2024 8:30 AM SENIOR ELECTRONICS TECHNICIAN Office Visit [facility] [address] [place] [address] 17666 09/08/2024 8:30 AM SENIOR ELECTRONICS TECHNICIAN Office Visit [facility] [address] [place] [address] 09/09/2024 8:30 AM SENIOR ELECTRONICS TECHNICIAN Office Visit [facility] [address] [place] [address] 09/10/2024 8:30 AM SENIOR ELECTRONICS TECHNICIAN Office Visit [facility] [address] [place] [address] 41584 09/10/2024 11:20 AM SENIOR ELECTRONICS TECHNICIAN Office Visit [facility] [address] [place] [phone] Vilma Neves MD [address] [place] [phone] 09/11/2024 8:30 AM SENIOR ELECTRONICS TECHNICIAN Office Visit [facility] Wound Care [address] [place] [phone] 09/14/2024 8:30 AM SENIOR ELECTRONICS TECHNICIAN Office Visit [facility] Wound Care [address] [place] [address] 228[address] 09/15/2024 8:30 AM SENIOR ELECTRONICS TECHNICIAN Office Visit [facility] Wound Care [address] [place] [phone] documented as of this encounter Visit Diagnoses Not on filedocumented in this encounter Additional Health Concerns Infection Onset Date Last Indicated Resolved Time MSSA 06/06/2024 06/12/2024 07/13/2024 9:58 AM CDT documented as of this encounter Care Teams Delivery Driver/Supervisor Relationship Specialty Start Date End Date hTu Bhagat PA-C [address] [place] [phone] PCP - General 11/26/22 documented as of this encounter
--- OUTSIDE RECORDS SUMMARY | 2024-08-21 10:24 | XMS_ITS | Encounter Summary ---
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) Vilma Neves MD [address] [place] [phone] Referral ID Status Reason Start Date Expiration Date Visits Requested Visits Authorized [id number] Authorized Specialty Services Required 06/17/2024 12/15/2024 40 40 Scheduling Instructions Right foot dfu dietz iii * Consultation (Routine) - Authorized Specialty Diagnoses / Procedures Referred By Kaley laguna Referred To Contact Dba Developer Diagnoses Diabetic ulcer of right midfoot associated with type 2 diabetes mellitus, 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) [place] [address] [place] [phone] [facility] Dba Developer [address] [place] [address] Referral ID Status Reason Start Date Expiration Date V isits Requested Visits Authorized [id number] Authorized 06/25/2024 06/25/2025 1 1 Scheduling Instructions Needs home health 2 or 3 days a week Reason for Visit * Reason Comments Wound Check Encounter Details Date Type Department Care Team (Late st Contact Info) Description 06/25/2024 8:00 AM CDT Office Visit [facility] Wound Care [address] [place] [address] Vilma Neves MD [address] [place] [address] [phone] Diabetic ulcer of right midfoot associated with [...] from your doctor or pharmacy? Never 06/06/2024 [facility] Utilities Answer Date Recorded In the past 12 months has [facility] [employer], gas, oil, or water [employer] threatened to shut off services in your [...] How often do you attend chur or voodoo services? More than 4 times per year 06/06/2024 Do you belong to any clubs o r organizations such as restorationist groups, unions, fraternal or athletic groups, or [...] Recorded Patient Health Questionnaire-2 Score 0 06/06/2024 [facility] Occupat ional Health - [...] time in the past 12 m [facility], were you homeless or living [...] encounter Patient Instructions * Patient Instructions* Wanda Pelletier RN - 06/25/2024 8:00 AM CDT Keep dressings clean and dry; call the wound clinic with any questions or concerns. Kefir (yogurt probiotic drink) 1 cup a day documented in this encounter Progress Notes * Vilma Neves MD - 06/25/2024 8:00 AM CDT Advanced Wound Healing Visit Type: Established patient Subjective Francisco Javier Fung is a 69 y.o. male who presents today for wound check. Patient is being seen for DFUWagner 3 of right foot status post I&D with second toe amputation with podiatry 06/12/2024. His hemoglobin A1c is 9.0 on 06/06/2024. Negative pressure wound therapy system has been ordered and approval is pending. He has been receiving alginate and overlying foam dressing. Patient reports overallimprovement in blood sugars. He has an appointment with infectious disease this afternoon for further postoperative antibiotic recommendations. He is offloading with a wheelchair. The following portions of the patient's history were reviewed by a provider in this encounter and updated as appropriate: Tobacco Allergies Meds Problems Med Hx Surg Hx Fam Hx Objective Visit Vitals Smoking Status Never Wound: Wound #1 right dorsal foot ulceration down to muscle tendon status post second toe amputation stable granulation minimal slough slight enteral tunneling without undermining, overall stable Procedure Note: Wound #1 Time-out: 821 Excisional debridement: muscle (outside wound margins to [...] of necrosis Pre debridement measurements (cm's) L 7.3 cm W 3 cm D 2.4 cm total sq cm 21.9 cm^2 Post debridement measurements (cm's) L 7.3 cm W 3 cm D 2.7 cm total sq cm 21.9 cm^2 Assessment/Plan Diagnoses and all orders for this visit: Diabetic ulcer of right midfoot associated with type 2 diabetes mellitus, 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 ColActive AG powder, Mepilex Ag, ABD after ID appointment Off-loading: Wheelchair Compression: Stockinette 2 layer Tubigrip. ANNA previously ordered and awaiting results Antibiotics: Per infectious disease Nutritional optimization: Advised pt to increase protein intake via diet supplementation to accelerate wound healing Glucose optimization: Uncontrolled type 2 diabetes mellitus with hemoglobin A1c of 9.0. Recommend decreasing carbohydrate intake and working with PCP Referrals: implementation services analyst for home health 2 to 3 days a week, HBO if no improvement in healing after 30 consecutive days of advanced wound treatment Details of today???s visit were discussed in [...] st Contact Info) Description 08/24/2024 8:30 AM CARE PARTNER Office Visit [facility] Wound Care [address] [place] [phone] 08/24/2024 11:30 AM CARE PARTNER [facility] [address] [place] [phone] Angel Coombs, DPM [address] [place] [phone] 08/25/2024 8:30 AM CARE PARTNER Office Visit [facility] Wound Care [address] [place] [phone] 08/26/2024 8:30 AM CARE PARTNER Office Visit [facility] Wound Care [address] [place] [phone] 08/27/2024 8:30 AM CARE PARTNER Office Visit [facility] Wound Care [address] [place] [address] 87520 08/27/2024 11:00 AM CARE PARTNER Office Visit [facility] Wound Care [address] [place] [phone] Vilma Neves MD [address] [place] [phone] 08/28/2024 8:30 AM CARE PARTNER Office Visit [facility] Wound Care [address] [place] [phone] 08/31/2024 8:30 AM CARE PARTNER Office Visit [facility] [address] [place] [address] 09/01/2024 8:30 AM CARE PARTNER Office Visit [facility] [address] [place] [address]90[address] 09/02/2024 8:30 AM CARE PARTNER Office Visit [facility] [address] [place] [address] [phone] 09/03/2024 8:30 AM CARE PARTNER Office Visit [facility] [address] [place] [address] 19938 09/03/2024 11:00 AM CARE PARTNER Office Visit [facility] [address] [place] [address] 55843 Vilma Neves MD [address] [place] [phone] 09/03/2024 11:00 AM CARE PARTNER Office Visit [facility] Infectious Disease [address] [place] [address] [phone] Amairani Sigala MD [address] [place] [phone] 09/04/2024 8:30 AM CARE PARTNER Office Visit [facility] [address] [place] [address] 80170 09/07/2024 8:30 AM CARE PARTNER Office Visit [facility] [address] [place] [address] [phone] 09/08/2024 8:30 AM CARE PARTNER Office Visit [facility] [address] [place] [address] 42478 09/09/2024 8:30 AM CARE PARTNER Office Visit [facility] [address] [place] [address] 69736 09/10/2024 8:30 AM CARE PARTNER Office Visit [facility] [address] [place] [address] 59928 09/10/2024 11:20 AM CARE PARTNER Office Visit [facility] Wound Care [address] [place] [phone] Vilma Neves MD [address]50 [place] [phone] 09/11/2024 8:30 AM CARE PARTNER Office Visit [facility] Wound Care [address] [place] [address] 09/14/2024 8:30 AM CARE PARTNER Office Visit [facility] Wound Care [address] [place] [address] 09/15/2024 8:30 AM CARE PARTNER Office Visit [facility] Wound Care [address] [place] [address] Scheduled Referrals Name Type Priority Associated Diagnoses Orde r Schedule Ambulatory referral to Medical Dba Developer: Resource and Referral Outpatient Referral Routine Diabetic ulcer of right midfoot associated with type 2 diabetes mellitus, 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) Ordered: 06/25/2024 Hyperbaric Oxygen Treatment Outpatient Referral Routine Diabetic ulcer of right midfoot associated with type 2 diabetes mellitus, 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
--- OUTSIDE RECORDS SUMMARY | 2024-08-21 10:24 | XMS_ITS | Encounter Summary ---
Author Organization [facility] er Address [address] [place] [address]40 Care Team Providers Care Customer Operations Manager Name Role Phone Thu Bhagat PA-C Primary Care Provider [phone] Reason for Visit * Reason Onset Date Comments Benefit Outcome Summary 07/02/2024 Encounter Details Date Type Department Care Team (Late st Contact Info) Description 07/02/2024 Telephone [facility] [address] [place] [address] [place] [address] [place] [phone] Benefit Outcome Summary Social History Tobacco Use Types Packs/Day Years [...] How often do you attend chur or mosque services? More than 4 times per year 06/06/2024 Do you belong to any clubs o r organizations such as anabaptism groups, unions, fraternal or athletic groups, or [...] Recorded Patient Health Questionnaire-2 Score 0 06/06/2024 [facility] of Occupat ional Health - Occupational Stress [...] any time in the past 12 m [facility], were you homeless or living in a longterm (including now)? No 06/06/2024 Interpersonal Safety Questionnaire Answer Date Recorded How often does anyone, juancarolee luis f family and friends, physically hurt you? Never 06/06/2024 How often does anyone, inclu luis f family and friends, insult or talk down to you? Never 06/06/2024 How often does anyone, inclu [...] encounter Miscellaneous Notes * Telephone Encounter - Wanda Marquez RN - 07/03/2024 2:04 PM CDT Note added to next visit for [employer] application * Telephone Encounter - Valeria Tobar RN - 07/02/2024 3:20 PM CDT Patient covered for [employer] products. ANUJA, thank you. * Telephone Encounter - Rossi Matute - 07/02/2024 12:16 PM CDT Received fax from [employer] that states the following as shown below: Primary Insurance is [facility] [employer]: Covered PuraPly AM: Covered PuraPly: Covered PuraPly XT: Covered Affinity:Covered NuShield: Covered Novachor: Not Covered Cy[employer] Dual: Covered I have placed fax in patient binder. Thank you! documented in this encounter Plan of Treatment Upcoming Encounters Date Type Department Care Team (Late st Contact Info) Description 08/24/2024 8:30 AM WINDOWS ADMIN Office Visit [facility] Wound Care [address] [place] [address]97 08/24/2024 11:30 AM WINDOWS ADMIN [facility] [address] [place] [address] Angel Coombs, DPM [address] [place] [phone] 08/25/2024 8:30 AM WINDOWS ADMIN Office Visit [facility] Wound Care [address] [place] [address] 34679 08/26/2024 8:30 AM WINDOWS ADMIN Office Visit [facility] Wound Care [address] [place] [address] 62172 08/27/2024 8:30 AM WINDOWS ADMIN Office Visit [facility] Wound Care [address] [place] [address] 46130 08/27/2024 11:00 AM WINDOWS ADMIN Office Visit [facility] Wound Care [address] [place] [address]29 Vilma Neves MD [address] [place] [phone] 08/28/2024 8:30 AM WINDOWS ADMIN Office Visit [facility] Wound Care [address] [place] [address] [phone] 08/31/2024 8:30 AM WINDOWS ADMIN Office Visit [facility] W[facility] [address] [place] [address] [phone] 09/01/2024 8:30 AM WINDOWS ADMIN Office Visit [facility] Wound Care [address] [place] [address] 30747 09/02/2024 8:30 AM WINDOWS ADMIN Office Visit [facility] Wound Care [address] [place] [address] 73514 09/03/2024 8:30 AM WINDOWS ADMIN Office Visit [facility] Wound Care [address] [place] [address] 71342 09/03/2024 11:00 AM WINDOWS ADMIN Office Visit [facility] W[facility] [address] [place] [address] Vilma Neves MD [address] [place] [phone] 09/03/2024 11:00 AM WINDOWS ADMIN Office Visit [facility] Infectious Disease [address] [place] [address] [phone] Amairani Sigala MD [address] [place] [address] [phone] 09/04/2024 8:30 AM WINDOWS ADMIN Office Visit [facility] W[facility] [address] [place] [address] 22759 09/07/2024 8:30 AM WINDOWS ADMIN Office Visit [facility] Wound Care [address] [place] [address] 94255 09/08/2024 8:30 AM WINDOWS ADMIN Office Visit [facility] Wound Care [address] [place] [address] [phone] 09/09/2024 8:30 AM WINDOWS ADMIN Office Visit [facility] Wound Care [address] [place] [address] 46824 09/10/2024 8:30 AM WINDOWS ADMIN Office Visit [facility] Wound Care [address] [place] [address] 13110 09/10/2024 11:20 AM WINDOWS ADMIN Office Visit [facility] Wound Care [address] [place] [address] 86190 Vilma Neves MD [address] [place] [phone] 09/11/2024 8:30 AM WINDOWS ADMIN Office Visit [facility] Wound Care [address] [place] [address] 35132 09/14/2024 8:30 AM WINDOWS ADMIN Office Visit [facility] Wound Care [address] [place] [address] 13156 09/15/2024 8:30 AM WINDOWS ADMIN Office Visit [facility] Wound Care [address] [place] [address] 19440 documented as of this encounter Visit Diagnoses Not on filedocumented in this encounter Additional Health Concerns Infection Onset Date Last Indicated Resolved Time MSSA 06/06/2024 06/12/2024 07/13/2024 9:58 AM CDT documented as of this encounter Care Teams Customer Operations Manager Relationship Specialty Start Date End Date Thu Bhagat PA-C [address] [place] [phone] PCP - General 11/26/22 documented as of this encounter
--- OUTSIDE RECORDS SUMMARY | 2024-08-21 10:24 | XMS_ITS | Encounter Summary ---
Author Organization [facility] er Address [address] [place] [address] Care Team Providers Care Abstract Manager Name Role Phone Thu Bhagat PA-C Primary Care Provider [phone] Encounter Details Date Type Department Care Team (Late st Contact Info) Description 06/30/2024 Clinical Support [facility] [address] [place] [phone] Jasiel Rust, PharmD [address] [place] [phone] Social History Tobacco Use Types Packs/Day Years [...] from your doctor or pharmacy? Never 06/06/2024 [facility] Utilities Answer Date Recorded In the past 12 months has e [employer] - [employer] of Fees, gas, oil, or water [employer] threatened to shut off services in your [...] any clubs o r organizations such as protestant groups, unions, fraternal or athletic groups, or [...] Recorded Patient Health Questionnaire-2 Score 0 06/06/2024 [facility] [place] of Occupat ional Health - Occupational Stress [...] any time in the past 12 m [facility], were you homeless or living [...] Progress Notes * Jasiel Rust, PharmD - 06/30/2024 5:38 PM CDT Pharmacy spoke to Francisco Javier via telephone to discuss today's labs. Discussed everything looks good, except for one of the liver function markers is slightly elevated. Francisco Javier reports feeling good, having no changes in dietary/liquid intake, no change in urination or bowel movements, and no changes in the skin. Discussed we will continue to watch labs for now, and re-evaluate after next Saturday's labs. Call Infusion Center if any of the above criteria change. Francisco Javier understood the plan moving forward. * Jasiel Rust, PharmD - 06/30/2024 5:24 PM CDT Images from the original note were not included. OPAT Team Note This patient has been enrolled in outpatient antimicrobial therapy (OPAT) and is being managed by the OPAT team. Patient: Francisco Javier Fung OPAT Enrollment Status: Home Infusion OPAT Labs Due: Weekly CBC and CMP OPAT End Date: 07/16/24 Micro Results: Microbiology Results No results found for the last 168 hours. Lab Results: Results Collected Updated Procedure Result Status 06/30/2024 1356 06/30/2024 1622 Comprehensive metabolic panel [[id number]] (Abnormal) Blood, Venous Final result Component Value [...] 06/30/2024 1356 06/30/2024 1409 CBC auto differential [[id number]] (Abnormal) Blood, Venous Final result Component Value [...] 06/23/2024 1253 06/23/2024 1332 Comprehensive metabolic panel [[id number]] (Abnormal) Blood, Venous Final result Component Value [...] 06/23/2024 1253 06/23/2024 1302 CBC auto differential [[id number]] (Abnormal) Blood, Venous Final result Component Value [...] 06/17/2024 0550 06/17/2024 0635 Basic metabolic panel [[id number]] (Abnormal) Blood, Venous Final result Component Value Units Sodium 136 mEq/L Potassium 4.1 mEq/L Chloride 101 mEq/L CO2 32 mmol/L Creatinine 1.14 mg/dL BUN 22 mg/dL Glucose 135 mg/dL Calcium, Total,S 8.9 mg/dL Anion Gap 3 Fasting? Yes 06/17/2024 0550 06/17/2024 0618 CBC ([facility]) [[id number]] (Abnormal) Blood, Venous Final result Component Value Units WBC 10.5 K/uL RBC 5.18 M/uL Hemoglobin 15.2 g/dL Hematocrit 47.8 % Platelets 376 K/uL MCV 92.3 fL MCH 29.3 pg MCHC 31.8 g/dL RDW 14.6 % NRBC %, Automated 0 % NRBC Absolute, Autmated 0.00 K/uL 06/16/2024 0608 06/16/2024 0826 Basic metabolic panel [[id number]] (Abnormal) Blood, Venous Final result Component Value Units Sodium 136 mEq/L Potassium 4.3 mEq/L Chloride 100 mEq/L CO2 30 mmol/L Creatinine 1.13 mg/dL BUN 20 mg/dL Glucose 116 mg/dL Calcium, Total,S 9.1 mg/dL Anion Gap 6 Fasting? Unknown 06/16/2024 0608 06/16/2024 0652 CBC ([facility] [employer]) [[id number]] Blood, Venous Final result Component Value Units WBC 10.2 K/uL RBC 5.36 M/uL Hemoglobin 15.9 g/dL Hematocrit 48.9 % Platelets 369 K/uL MCV 91.2 fL MCH 29.7 pg MCHC 32.5 g/dL RDW 14.7 % NRBC %, Automated 0 % NRBC Absolute, Autmated 0.00 K/uL 06/15/2024 0600 06/15/2024 0617 Basic metabolic panel [[id number]] (Abnormal) Blood, Venous Final result Component Value Units Sodium 136 mEq/L Potassium 4.0 mEq/L Chloride 100 mEq/L CO2 30 mmol/L Creatinine 1.05 mg/dL BUN 17 mg/dL Glucose 117 mg/dL Calcium, Total,S 8.8 mg/dL Anion Gap 6 Fasting? Yes 06/15/2024 0600 06/15/2024 0606 CBC ([facility]) [[id number]] (Abnormal) Blood, Venous Final result Component Value Units WBC 11.5 K/uL RBC 5.04 M/uL Hemoglobin 14.9 g/dL Hematocrit 46.2 % Platelets 358 K/uL MCV 91.7 fL MCH 29.6 pg MCHC 32.3 g/dL RDW 14.9 % NRBC %, Automated 0 % NRBC Absolute, Autmated 0.00 K/uL 06/14/2024 0545 06/14/2024 0628 Basic metabolic panel [[id number]] (Abnormal) Blood, Venous Final result Component Value Units Sodium 138 mEq/L Potassium 4.2 mEq/L Chloride 101 mEq/L CO2 31 mmol/L Creatinine 1.03 mg/dL BUN 20 mg/dL Glucose 142 mg/dL Calcium, Total,S 8.9 mg/dL Anion Gap 6 Fasting? Yes 06/14/2024 0545 06/14/2024 0621 CBC ([facility]) [[id number]] (Abnormal) Blood, Venous Final result Component Value Units WBC 12.1 K/uL RBC 5.04 M/uL Hemoglobin 15.1 g/dL Hematocrit 47.3 % Platelets 396 K/uL MCV 93.8 fL MCH 30.0 pg MCHC 31.9 g/dL RDW 15.2 % NRBC %, Automated 0 % NRBC Absolute, Autmated 0.00 K/uL 06/13/2024 0500 06/13/2024 0548 Basic metabolic panel [[id number]] (Abnormal) Blood, Venous Final result Component Value Units Sodium 135 mEq/L Potassium 4.0 mEq/L Chloride 102 mEq/L CO2 29 mmol/L Creatinine 1.21 mg/dL BUN 26 mg/dL Glucose 188 mg/dL Calcium, Total,S 8.7 mg/dL Anion Gap 4 Fasting? Yes 06/13/2024 0500 06/13/2024 0533 CBC ([facility] [employer]) [[id number]] (Abnormal) Blood, Venous Final result Component Value Units WBC 16.2 K/uL RBC 5.00 M/uL Hemoglobin 14.8 g/dL Hematocrit 46.7 % Platelets 382 K/uL MCV 93.4 fL MCH 29.6 pg MCHC 31.7 g/dL RDW 15.2 % NRBC %, Automated 0 % NRBC Absolute, Autmated 0.00 K/uL 06/12/2024 0540 06/12/2024 0615 Basic metabolic panel [[id number]] (Abnormal) Blood, Venous Final result Component Value Units Sodium 137 mEq/L Potassium 4.2 mEq/L Chloride 103 mEq/L CO2 29 mmol/L Creatinine 1.13 mg/dL BUN 25 mg/dL Glucose 172 mg/dL Calcium, Total,S 9.2 mg/dL Anion Gap 5 Fasting? Yes 06/12/2024 0540 06/12/2024 0559 CBC ([facility] [employer]) [[id number]] (Abnormal) Blood, Venous Final result Component Value Units WBC 14.4 K/uL RBC 5.22 M/uL Hemoglobin 15.5 g/dL Hematocrit 48.2 % Platelets 396 K/uL MCV 92.3 fL MCH 29.7 pg MCHC 32.2 g/dL RDW 15.1 % NRBC %, Automated 0 % NRBC Absolute, Autmated 0.00 K/uL 06/11/2024 0610 06/11/2024 0710 Basic metabolic panel [[id number]] (Abnormal) Blood, Venous Final result Component Value Units Sodium 138 mEq/L Potassium 4.2 mEq/L Chloride 104 mEq/L CO2 25 mmol/L Creatinine 1.20 mg/dL BUN 24 mg/dL Glucose 173 mg/dL Calcium, Total,S 9.5 mg/dL Anion Gap 9 Fasting? Yes 06/11/2024 0610 06/11/2024 0653 CBC ([facility]) [[id number]] (Abnormal) Blood, Venous Final result Component Value Units WBC 14.5 K/uL RBC 5.09 M/uL Hemoglobin 15.3 g/dL Hematocrit 46.8 % Platelets 389 K/uL MCV 91.9 fL MCH 30.1 pg MCHC 32.7 g/dL RDW 15.3 % NRBC %, Automated 0 % NRBC Absolute, Autmated 0.00 K/uL 06/10/2024 0554 06/10/2024 0613 Basic metabolic panel [[id number]] (Abnormal) Blood, Venous Final result Component Value Units Sodium 138 mEq/L Potassium 4.2 mEq/L Chloride 107 mEq/L CO2 24 mmol/L Creatinine 1.23 mg/dL BUN 24 mg/dL Glucose 139 mg/dL Calcium, Total,S 9.3 mg/dL Anion Gap 7 Fasting? Yes 06/10/2024 0554 06/10/2024 0607 CBC ([facility]) [[id number]] (Abnormal) Blood, Venous Final result Component Value Units WBC 15.2 K/uL RBC 5.00 M/uL Hemoglobin 15.2 g/dL Hematocrit 47.1 % Platelets 347 K/uL MCV 94.2 fL MCH 30.4 pg MCHC 32.3 g/dL RDW 15.6 % NRBC %, Automated 0 % NRBC Absolute, Autmated 0.00 K/uL 06/09/2024 1138 06/09/2024 1414 Vancomycin [[id number]] Blood, Venous Final result Component Value Units Vancomycin 22.9 mcg/mL Last Dose Date 06/09/2024 Last Dose Time 1010 AM 06/09/2024 0605 06/09/2024 0649 Basic metabolic panel [[id number]] (Abnormal) Blood, Venous Final result Component Value Units Sodium 137 mEq/L Potassium 4.2 mEq/L Chloride 108 mEq/L CO2 24 mmol/L Creatinine 1.21 mg/dL BUN 29 mg/dL Glucose 113 mg/dL Calcium, Total,S 9.2 mg/dL Anion Gap 5 Fasting? Yes 06/09/2024 0605 06/09/2024 0637 CBC ([facility]) [[id number]] (Abnormal) Blood, Venous Final result Component Value Units WBC 13.8 K/uL RBC 5.05 M/uL Hemoglobin 14.9 g/dL Hematocrit 47.0 % Platelets 334 K/uL MCV 93.1 fL MCH 29.5 pg MCHC 31.7 g/dL RDW 15.4 % NRBC %, Automated 0 % NRBC Absolute, Autmated 0.00 K/uL 06/08/2024 0605 06/08/2024 0707 Basic metabolic panel [[id number]] (Abnormal) Blood, Venous Final result Component Value Units Sodium 138 mEq/L Potassium 3.9 mEq/L Chloride 109 mEq/L CO2 21 mmol/L Creatinine 1.33 mg/dL BUN 36 mg/dL Glucose 84 mg/dL Calcium, Total,S 8.9 mg/dL Anion Gap 8 Fasting? Yes 06/08/2024 0605 06/08/2024 0658 CBC ([facility]) [[id number]] (Abnormal) Blood, Venous Final result Component Value Units WBC 14.2 K/uL RBC 4.80 M/uL Hemoglobin 14.5 g/dL Hematocrit 44.6 % Platelets 298 K/uL MCV 92.9 fL MCH 30.2 pg MCHC 32.5 g/dL RDW 15.1 % NRBC %, Automated 0 % NRBC Absolute, Autmated 0.00 K/uL 06/06/2024 1000 06/08/2024 0229 Hemoglobin A1c [[id number]] (Abnormal) Blood, Venous Final result Component Value Units Hemoglobin A1C 9.0 % A1C 06/07/2024 0513 06/07/2024 0702 Vancomycin [[id number]] Blood, Venous Final result Component Value Units Vancomycin 9.6 mcg/mL Last Dose Date 06/06/2024 Last Dose Time 1040 06/07/2024 0513 06/07/2024 0546 Basic metabolic panel [[id number]] (Abnormal) Blood, Venous Final result Component Value Units Sodium 138 mEq/L Potassium 4.0 mEq/L Chloride 107 mEq/L CO2 22 mmol/L Creatinine 1.81 mg/dL BUN 55 mg/dL Glucose 125 mg/dL Calcium, Total,S 9.1 mg/dL Anion Gap 9 Fasting? Yes 06/07/2024 0513 06/07/2024 0539 CBC ([facility]) [[id number]] (Abnormal) Blood, Venous Final result Component Value Units WBC 16.4 K/uL RBC 4.95 M/uL Hemoglobin 14.8 g/dL Hematocrit 45.4 % Platelets 281 K/uL MCV 91.7 fL MCH 29.9 pg MCHC 32.6 g/dL RDW 15.1 % NRBC %, Automated 0 % NRBC Absolute, Autmated 0.00 K/uL 06/06/2024 1000 06/06/2024 1119 Procalcitonin [[id number]] (Abnormal) Blood, Venous Final result Component Value Units Procalcitonin 1.34 ng/mL 06/06/2024 0955 06/06/2024 1034 Covid-19, Gutierrez ID Now, PCR symptomatic [[id number]] Swab from Nasal Final result Component Value Covid Source Nasal Covid-19, ID Now PCR NEGATIVE 06/06/2024 1000 06/06/2024 1032 C-reactive protein [[id number]] (Abnormal) Blood, Venous Final result Component Value Units CRP >320.0 mg/L 06/06/2024 1000 06/06/2024 1030 CBC auto differential [[id number]] (Abnormal) Blood, Venous Final result Component Value [...] 0.00 K/uL 06/06/2024 1000 06/06/2024 1030 Morphology [[id number]] Final result Component Value Slide Review PERFORMED RBC Morphology NORMAL PLT Morphology ADEQUATE 06/06/2024 1000 06/06/2024 1028 Basic metabolic panel [[id number]] (Abnormal) Blood, Venous Final result Component Value Units Sodium 134 mEq/L Potassium 4.5 mEq/L Chloride 98 mEq/L CO2 24 mmol/L Creatinine 2.61 mg/dL BUN 78 mg/dL Glucose 254 mg/dL Calcium, Total,S 9.6 mg/dL Anion Gap 12 Fasting? Unknown 06/06/2024 1000 06/06/2024 1028 Magnesium [[id number]] (Abnormal) Blood, Venous Final result Component Value Units Magnesium 2.5 mg/dL 06/06/2024 1000 06/06/2024 1020 Lactate, plasma [[id number]] Blood, Venous Final result Component Value Units Lactate 1.3 mmol/L 06/06/2024 1000 06/06/2024 1017 APTT [[id number]] (Abnormal) Blood, Venous Final result Component Value Units aPTT 40 seconds 06/06/2024 1000 06/06/2024 1017 Protime-INR [[id number]] (Abnormal) Blood, Venous Final result Component Value Units Protime 19.0 seconds INR 1.6 06/06/2024 1000 06/06/2024 1014 Blood gas, venous [[id number]] Blood, Venous Final result Component Value Units pH, Jorge 7.37 pCO2, Jorge 44 mm Hg HCO3, Venous 25.4 mmol/L Base Excess/Deficit Venous -0.2 mmol/L Current Indication: Skin-Soft tissue infection Overall Recommendation: The patient is currently taking Ertapenem . Per antimicrobial stewardship guidelines, pharmacy recommends Francisco Javier Fung continue with current Therapy. Pharmacy took the following actions: No changes made Additional Recommendations: Tbili increased from 0.7 to 1.1, continue to monitor. All other LFT stable and within normal levels. Creatinine stable at 1.17 WBC continues improving, now at 6.5 Submitted by: Jasiel Rust, PharmD documented in this encounter Plan of Treatment Upcoming Encounters Date Type Department Care Team (Late st Contact Info) Description 08/24/2024 8:30 AM AMPOULE INSPECTOR Office Visit [facility] [address] [place] [phone] 08/24/2024 11:30 AM AMPOULE INSPECTOR Office Visit Podiatry [address] [place] [phone] Angel Coombs, DPM [address] [place] [address] [phone] 08/25/2024 8:30 AM AMPOULE INSPECTOR Office Visit [facility] [address] [place] [address] [phone] 08/26/2024 8:30 AM AMPOULE INSPECTOR Office Visit [facility] [address] [place] [address] [phone] 08/27/2024 8:30 AM AMPOULE INSPECTOR Office Visit [facility] [address] [place] [address] [phone] 08/27/2024 11:00 AM AMPOULE INSPECTOR Office Visit [facility] [address] [place] [address] [phone] Vilma Neves MD [address] [place] [phone] 08/28/2024 8:30 AM AMPOULE INSPECTOR Office Visit [facility] [address] [place] [address] [phone] 08/31/2024 8:30 AM AMPOULE INSPECTOR Office Visit [facility] [address] [place] [address] [phone] 09/01/2024 8:30 AM AMPOULE INSPECTOR Office Visit [facility] [address] [place] [address] [phone] 09/02/2024 8:30 AM AMPOULE INSPECTOR Office Visit [facility] [address] [place] [address] [phone] 09/03/2024 8:30 AM AMPOULE INSPECTOR Office Visit [facility] [address] [place] [address] [phone] 09/03/2024 11:00 AM AMPOULE INSPECTOR Office Visit [facility] [address] [place] [address] [phone] Vilma Neves MD [address] [place] [phone] 09/03/2024 11:00 AM AMPOULE INSPECTOR Office Visit [facility] Infectious Disease [address] [place] [address] [phone] Amairani Sigala MD [address] [place] [phone] 09/04/2024 8:30 AM AMPOULE INSPECTOR Office Visit [facility] [address] [place] [address] [phone] 09/07/2024 8:30 AM AMPOULE INSPECTOR Office Visit [facility] [address] [place] [address] [phone] 09/08/2024 8:30 AM AMPOULE INSPECTOR Office Visit [facility] [address] [place] [address] 26554 09/09/2024 8:30 AM AMPOULE INSPECTOR Office Visit [facility] [address] [place] [address] [phone] 09/10/2024 8:30 AM AMPOULE INSPECTOR Office Visit [facility] [address] [place] [address] [phone] 09/10/2024 11:20 AM AMPOULE INSPECTOR Office Visit [facility] [address] [place] [address] [phone] Vilma Neves MD [address] [place] [phone] 09/11/2024 8:30 AM AMPOULE INSPECTOR Office Visit [facility] [address] [place] [address] [phone] 09/14/2024 8:30 AM AMPOULE INSPECTOR Office Visit [facility] [address] [place] [phone] 09/15/2024 8:30 AM AMPOULE INSPECTOR Office Visit [facility] [address] [place] [phone] documented as of this encounter Visit Diagnoses Not on filedocumented in this encounter Additional Health Concerns Infection Onset Date Last Indicated Resolved Time MSSA 06/06/2024 06/12/2024 07/13/2024 9:58 AM CDT documented as of this encounter Care Teams Abstract Manager Relationship Specialty Start Date End Date Thu Bhagat PA-C [address] [place] [phone] PCP - General 11/26/22 documented as of this encounter
--- OUTSIDE RECORDS SUMMARY | 2024-08-21 10:24 | XMS_ITS | Encounter Summary ---
Author Organization [facility] er Address [address] [place] [address] Care Team Providers Care Chief Engineering Division Name Role Phone Thu Bhagat PA-C Primary Care Provider [phone] Reason for Visit * Reason Onset Date Comments Coverage for EPIFIX 07/02/2024 Encounter Details Date Type Department Care Team (Late st Contact Info) Description 07/02/2024 Telephone [facility] [address] [place] [phone] [place] [address] [place] [phone] Coverage for EPIFIX Social History Tobacco Use Types Packs/Day Years [...] your doctor or pharmacy? Never 06/06/2024 [facility] Utilities Answer Date Recorded In the [...] any clubs o r organizations such as hinduism groups, unions, fraternal or athletic groups, or [...] Recorded Patient Health Questionnaire-2 Score 0 06/06/2024 [facility] of Occupat ional Health - Occupational Stress [...] time in the [facility], were you homeless or living [...] encounter Miscellaneous Notes * Telephone Encounter - Rossi Matute - 07/02/2024 12:10 PM CDT Received fax that states the following: EpiFix: Not covered, this product is not covered under patient's policy of [facility]. I have placed fax in patient binder. Thank you! documented in this encounter Plan of Treatment Upcoming Encounters Date Type Department Care Team (Late st Contact Info) Description 08/24/2024 8:30 AM TELETRAY OPERATOR Office Visit [facility] [address] [place] [phone] 08/24/2024 11:30 AM TELETRAY OPERATOR [facility] Visit [facility] [address] [place] [phone] Angel Coombs, KERVIN [address] [place] [phone] 08/25/2024 8:30 AM TELETRAY OPERATOR Office Visit [facility] Care [address] [place] [address] [phone] 08/26/2024 8:30 AM TELETRAY OPERATOR Office Visit [facility] [address] [place] [address] [phone] 08/27/2024 8:30 AM TELETRAY OPERATOR Office Visit [facility] [address] [place] [address] [phone] 08/27/2024 11:00 AM TELETRAY OPERATOR Office Visit [facility] [address] [place] [phone] Vilma Neves MD [address] [place] [phone] 08/28/2024 8:30 AM TELETRAY OPERATOR Office Visit [facility] [address] [place] [address] [phone] 08/31/2024 8:30 AM TELETRAY OPERATOR Office Visit [facility] [address] [place] [address] [phone] 09/01/2024 8:30 AM TELETRAY OPERATOR Office Visit [facility] [address] [place] [address] [phone] 09/02/2024 8:30 AM TELETRAY OPERATOR Office [facility] [address] [place] [address] [phone] 09/03/2024 8:30 AM TELETRAY OPERATOR Office Visit [facility] [address] [place] [address] [phone] 09/03/2024 11:00 AM TELETRAY OPERATOR Office Visit [facility] [address] [place] [address] [phone] Vilma Neves MD [address] [place] [phone] 09/03/2024 11:00 AM TELETRAY OPERATOR Office Visit [facility] Infectious Disease [address] [place] [phone] Amairani Sigala MD [address] [place] [address] [phone] 09/04/2024 8:30 AM TELETRAY OPERATOR Office Visit [facility] [address] [place] [address] 72796 09/07/2024 8:30 AM TELETRAY OPERATOR Office Visit [facility] [address] [place] [address] [phone] 09/08/2024 8:30 AM TELETRAY OPERATOR Office Visit [facility] [address] [place] [address] [phone] 09/09/2024 8:30 AM TELETRAY OPERATOR Office [facility] [address] [place] [address] [phone] 09/10/2024 8:30 AM TELETRAY OPERATOR Office [facility] [address] [place] [address] [phone] 09/10/2024 11:20 AM TELETRAY OPERATOR Office Visit [facility] [address] [place] [address] [phone] Vilma Neves MD [address] [place] [phone] 09/11/2024 8:30 AM TELETRAY OPERATOR Office Visit [facility] [address] [place] [address] [phone] 09/14/2024 8:30 AM TELETRAY OPERATOR Office Visit [facility] [address] [place] [address] [phone] 09/15/2024 8:30 AM TELETRAY OPERATOR Office Visit [facility] [address] [place] [address] [phone] documented as of this encounter Visit Diagnoses Not on filedocumented in this encounter Additional Health Concerns Infection Onset Date Last Indicated Resolved Time MSSA 06/06/2024 06/12/2024 07/13/2024 9:58 AM CDT documented as of this encounter Care Teams Chief Engineering Division Relationship Specialty Start Date End Date Thu Bhagat PA-C [address] [place] [phone] PCP - General 11/26/22 documented as of this encounter
--- OUTSIDE RECORDS SUMMARY | 2024-08-21 10:24 | XMS_ITS | Encounter Summary ---
Author Organization [facility] er Address [address] [place] [address] Care Team Providers Care Gluing Machine Operator Electronic Name Role Phone Thu Bhagat PA-C Primary Care Provider [phone] Encounter Details Date Type Department Care Team (Late st Contact Info) Description 06/25/2024 Orders Only [facility] W[facility] Care [address] [place] [address] Rocco Couch PA-C [address] [place] [phone] Social History Tobacco Use Types Packs/Day [...] doctor or pharmacy? Never 06/06/2024 [facility] Utilities Answer Date Recorded In the [...] How often do you attend chur or episcopalian services? More than 4 times [...] Recorded Patient Health Questionnaire-2 Score 0 06/06/2024 [facility] of Occupat ional Health - Occupational Stress [...] time in the past 12 m [facility], were you homeless or living in a [...] as of this encounter Progress Notes * Rocco Couch PA-C - 06/25/2024 10:29 AM CDT Placing orders to share with the [facility] Community land conservation specialist so they understand the patient is going to need approval for home wound care nursing for dressings until his NPWT Device arrives, also will need wound care orders for requirements for dressing changes once the NPWT (Wound Vac) is placed on the foot wound. documented in this encounter Plan of Treatment Upcoming Encounters Date Type Department Care Team (Late st Contact Info) Description 08/24/2024 8:30 AM HOT DIP PLATING SUPERVISOR Office Visit [facility] Care [address] [place] [address] 08/24/2024 11:30 AM HOT DIP PLATING SUPERVISOR Office Visit [facility] [address], [place] [address] Angel Coombs, DPM [address] [place] [phone] 08/25/2024 8:30 AM HOT DIP PLATING SUPERVISOR Office Visit [facility] Care [address] [place] [address] 08/26/2024 8:30 AM HOT DIP PLATING SUPERVISOR Office Visit [facility] Care [address] [place] [address] 08/27/2024 8:30 AM HOT DIP PLATING SUPERVISOR Office Visit [facility] Care [address] [place] [phone] 08/27/2024 11:00 AM HOT DIP PLATING SUPERVISOR Office Visit [facility] [address] [place] [address] [place] [address] [place] [phone] 08/28/2024 8:30 AM HOT DIP PLATING SUPERVISOR Office Visit [facility] Care [address] [place] [address] 08/31/2024 8:30 AM HOT DIP PLATING SUPERVISOR Office Visit [facility] Care [address] [place] [address] 09/01/2024 8:30 AM HOT DIP PLATING SUPERVISOR Office Visit [facility] Care [address] [place] [address] 09/02/2024 8:30 AM HOT DIP PLATING SUPERVISOR Office Visit [facility] W[facility] Care [address] [place] [address] 09/03/2024 8:30 AM HOT DIP PLATING SUPERVISOR Office Visit [facility] Wound Care [address] [place] [address] 09/03/2024 11:00 AM HOT DIP PLATING SUPERVISOR Office Visit [facility] W[facility] Care [address] [place] [address] Vilma Neves MD [address] [place] [phone] 09/03/2024 11:00 AM HOT DIP PLATING SUPERVISOR Office Visit [facility] Infectious Disease [address] [place] [address] Amairani Sigala MD [address] [place] [phone] 09/04/2024 8:30 AM HOT DIP PLATING SUPERVISOR Office Visit [facility] Wound Care [address] [place] [address] 09/07/2024 8:30 AM HOT DIP PLATING SUPERVISOR Office Visit [facility] Wound Care [address] [place] [address] 09/08/2024 8:30 AM HOT DIP PLATING SUPERVISOR Office Visit [facility] Wound Care [address] [place] [address] 09/09/2024 8:30 AM HOT DIP PLATING SUPERVISOR Office Visit [facility] W[facility] Care [address] [place] [address] 09/10/2024 8:30 AM HOT DIP PLATING SUPERVISOR Office Visit [facility] W[facility] Care [address] [place] [phone] 09/10/2024 11:20 AM HOT DIP PLATING SUPERVISOR Office Visit [facility] W[facility] Care [address] [place] [phone] Vilma Neves MD [address] [place] [phone] 09/11/2024 8:30 AM HOT DIP PLATING SUPERVISOR Office Visit [facility] Wound Care [address] [place] [address] 09/14/2024 8:30 AM HOT DIP PLATING SUPERVISOR Office Visit [facility] Care [address] [place] [address] 09/15/2024 8:30 AM HOT DIP PLATING SUPERVISOR Office Visit [facility] W[facility] Care [address] [place] [address] documented as of this encounter Visit Diagnoses Not on filedocumented in this encounter Additional Health Concerns Infection Onset Date Last Indicated Resolved Time MSSA 06/06/2024 06/12/2024 07/13/2024 9:58 AM CDT documented as of this encounter Care Teams Gluing Machine Operator Electronic Relationship Specialty Start Date End Date Thu Bhagat PA-C [address] [place] [phone] PCP - General 11/26/22 documented as of this encounter
--- OUTSIDE RECORDS SUMMARY | 2024-08-21 10:24 | XMS_ITS | Encounter Summary ---
Author Organization [facility] er Address [address] [place] [address] Care Team Providers Care Cdl Driver Name Role Phone Thu Bhagat PA-C Primary Care Provider Reason for Visit * Reason Onset Date Comments Benefit Verification 07/02/2024 Encounter Details Date Type Department Care Team (Late st Contact Info) Description 07/02/2024 Telephone [facility] W[facility] Care [address] [place] [address] Vilma Neves MD [address] [place] [phone] Benefit Verification Social History Tobacco Use Types Packs/Day Years [...] do you attend [facility] or catholic services? More than 4 times per [...] Health Questionnaire-2 Score 0 06/06/2024 [facility] [place] of Occupat ional Health - Occupational Stress [...] any time in the past 12 m [facility], were you homeless or living in a fci (including now)? No 06/06/2024 Interpersonal Safety Questionnaire Answer Date Recorded How often does anyone, tyrell luis f family and friends, physically hurt you? Never 06/06/2024 How often does anyone, tyrell kerns family and friends, insult or talk down to you? Never 06/06/2024 How often does anyone, tyrell luis f family and friends, threaten you with harm? Never 06/06/2024 How often does anyone, tyrell luis f family and friends, threaten you with harm? Never 06/06/2024 Sex and Gender Information Value Date Recorded Sex Assigned at Not on file Gender Identity Not on file Sexual Orientation Not on file documented as of this encounter Miscellaneous Notes * Telephone Encounter - Valeria Tobar RN - 07/02/2024 3:20 PM CDT Patient covered for [employer]. ANUJA, thank you. * Telephone Encounter - Rossi Matute - 07/02/2024 11:59 AM CDT Received fax from [employer] that expresses the following below: Copay: Patient has a $0.00 outpatient copay which will apply pre application Deductible: Patient has a $0.00 deductible of which $0.00 has been met Out of pocket: Patient has a $0.00 out of pocket of which $0.00 has been met Co-Insurance: Primary plan will pay at 100% of allowed charges with Co-insurance of 0%. If patient has a Secondary plan will consider % co-ins. Patient responsible for % co-ins. I have placed fax in patient binder, thank you! documented in this encounter Plan of Treatment Upcoming Encounters Date Type Department Care Team (Late st Contact Info) Description 08/24/2024 8:30 AM TRUST CLERK Office Visit [facility] Wound Care [address] [place] [address] 08/24/2024 11:30 AM TRUST CLERK Office Visit Podiatry [address] [place] [phone] Angel Coombs DPM [address] [place] [phone] 08/25/2024 8:30 AM TRUST CLERK Office Visit [facility] Wound Care [address] [place] [address] 08/26/2024 8:30 AM TRUST CLERK Office Visit [facility] [address] [place] [address]28[address] 08/27/2024 8:30 AM TRUST CLERK Office Visit [facility] [address] [place] [address] 95294 08/27/2024 11:00 AM TRUST CLERK Office Visit [facility] [address] [place] [address] Vilma Neves MD [address] [place] [phone] 08/28/2024 8:30 AM TRUST CLERK Office Visit [facility] Wound Care [address] [place] [address] 08/31/2024 8:30 AM TRUST CLERK Office Visit [facility] Wound Care [address] [place] [address] 83376 09/01/2024 8:30 AM TRUST CLERK Office Visit [facility] Wound Care [address] [place] [address] 23055 09/02/2024 8:30 AM TRUST CLERK Office Visit [facility] Wound Care [address] [place] [address] 94309 09/03/2024 8:30 AM TRUST CLERK Office Visit [facility] [address] [place] [address]83 09/03/2024 11:00 AM TRUST CLERK Office Visit [facility] Wound Care [address] [place] [address] Vilma Neves MD [address] [place] [phone] 09/03/2024 11:00 AM TRUST CLERK Office Visit [facility] Infectious Disease [address] [place] [address] 6[address] Amairani Sigala MD [address] [place] [phone] 09/04/2024 8:30 AM TRUST CLERK Office Visit [facility] Wound Care [address] [place] [address] 98290 09/07/2024 8:30 AM TRUST CLERK Office Visit [facility] Wound Care [address] [place] [address]247 09/08/2024 8:30 AM TRUST CLERK Office Visit [facility] Wound Care [address] [place] [address] 09/09/2024 8:30 AM TRUST CLERK Office Visit [facility] Care [address] [place] [address] 6[address] 09/10/2024 8:30 AM TRUST CLERK Office Visit [facility] Care [address] [place] [phone] 09/10/2024 11:20 AM TRUST CLERK Office Visit [facility] [address] [place] [address]20 Vilma Neves MD [address] [place] [phone] 09/11/2024 8:30 AM TRUST CLERK Office Visit [facility]ound Care [address] [place] [address]34 09/14/2024 8:30 AM TRUST CLERK Office Visit [facility] Care [address] [place] [address] 84732 09/15/2024 8:30 AM TRUST CLERK Office Visit [facility] Care [address] [place] [address]67 documented as of this encounter Visit Diagnoses Not on filedocumented in this encounter Additional Health Concerns Infection Onset Date Last Indicated Resolved Time MSSA 06/06/2024 06/12/2024 07/13/2024 9:58 AM CDT documented as of this encounter Care Teams Cdl Driver Relationship Specialty Start Date End Date Thu Bhagat PA-C [address] [place] [phone] PCP - General 11/26/22 documented as of this encounter
--- OUTSIDE RECORDS SUMMARY | 2024-08-21 10:24 | XMS_ITS | Encounter Summary ---
Author Organization [facility] er Address [address] [place] [address] Care Team Providers Care Gluer Machine Operator Name Role Phone Thu Bhagat PA-C Primary Care Provider [phone] Reason for Visit * Reason Comments Dressing Change * Consultation (Routine) - Authorized Specialty Diagnoses / Procedures Referred By Contac t Referred To Contact Wound Care Diagnoses Cellulitis, unspecified Procedures Wound Clinic Thu Bhagat PA-C [address] [place] [phone] [facility] Wound Care [address] [place] [address] Referral ID Status Reason Start Date Expiration Date V isits Requested Visits Authorized [id number] Authorized 06/17/2024 12/15/2024 99 99 Encounter Details Date Type Department Care Team (Latest Contact Info) Description 07/03/2024 3:00 PM CDT Clinical Support [facility] [address] [place] [address] [phone] Dressing change [Z48.00] (Primary Dx) Social History Tobacco Use [...] often do you attend chur ch or anabaptism services? More than 4 times per year 06/06/2024 Do you belong to any clubs o r organizations such as confucianism groups, unions, fraternal or athletic groups, or [...] Score 0 06/06/2024 [facility] - Occupational Stress Questionnaire Answer Date [...] any time in the past 12 m [facility], were you homeless or living [...] as of this encounter Progress Notes * Gladys Lowe BSN - 07/03/2024 3:00 PM CDT Images from the original note were not included. 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 (Active) Wound Image 06/30/24 1552 Wound Length (cm) 6.9 cm 07/03/24 1500 Wound Width (cm) 2.8 cm 07/03/24 1500 Wound Depth (cm) 0.8 cm 07/03/24 1500 Wound Area (cm^2) 19.32 cm^2 07/03/24 1500 Wound Volume (cm^3) 15.456 cm^3 07/03/24 1500 Wound Healing % 80 07/03/24 1500 Inflammation No 07/03/24 1500 Granulation % 70 % 07/03/24 1500 Slough % 30 % 07/03/24 1500 Structures Exposed Fat;Muscle 07/03/24 1500 Exudate Type Serosanguinous 07/03/24 1500 Exudate Amount Moderate 07/03/24 1500 Wound Edges Attached 07/03/24 1500 Cassie-wound Skin Intact 07/03/24 1500 Periwound Skin Treatment Calmoseptime 06/25/24 0800 Odor No 07/03/24 1500 NPWT Status Continue 07/03/24 1500 NPWT Type KCI Wound Vac 07/03/24 1500 NPWT Pressure Setting (mmHg) 125 mmHg 07/03/24 1500 NPWT Pressure Setting Constant 07/03/24 1500 NPWT Type of Sponge Black Foam 07/03/24 1500 NPWT # of Dressing Removed 1 07/03/24 1500 NPWT # of Dressings Applied 1 07/03/24 1500 Change Dressings Per Week 2 07/03/24 1500 Compression Applied To RLE 07/03/24 1500 Compression Type Tubigrip 07/03/24 1500 Compression Wrap Rewrap PRN if loose 07/03/24 1500 Wound/Ulcer Cleaning Rinsed/irrigated with saline;Vashe 07/03/24 1500 Primary Dessing Applied Collagen;Silver dressing 07/03/24 1500 Primary Dressing Type Masha 07/03/24 1500 Remove dressing Yes 07/03/24 1500 Change Dressings Per Week 2 07/03/24 1500 Covered/Secured With KCI Wound Vac 07/03/24 1500 Remove dressing Yes 07/03/24 1500 Change Dressings Per Week 2 07/03/24 [address] Yes 07/03/24 1500 Offloading Used Yes 07/03/24 1500 Type of Offloading Used Rooke Boot 07/03/24 1500 Offloading Laterality RLE 07/03/24 1500 Offloading Compliance Yes 07/03/24 1500 Incision/Surgical Site 06/08/24 Toe D2, second Anterior;Right (Active) Incision/Surgical Site 06/12/24 Toe D2, second Anterior;Right (Active) Dressing change completed. Patient tolerated well. Supervising provider Dr. Vilma Neves. documented in this encounter Plan of Treatment Upcoming Encounters Date Type Department Care Team (Late st Contact Info) Description 08/24/2024 8:30 AM PLANTING MACHINE CREWMAN Office Visit [facility] [address] [place] [address] 08/24/2024 11:30 AM PLANTING MACHINE CREWMAN Office Visit Podiatry [address] [place] [phone] Angel Coombs, KERVIN [address] [place] [address] [phone] 08/25/2024 8:30 AM PLANTING MACHINE CREWMAN Office Visit [facility] [address] [place] [address] [phone] 08/26/2024 8:30 AM PLANTING MACHINE CREWMAN Office Visit [facility] [address] [place] [address] 93231 08/27/2024 8:30 AM PLANTING MACHINE CREWMAN Office Visit [facility] [address] [place] [address] 79139 08/27/2024 11:00 AM PLANTING MACHINE CREWMAN Office Visit [facility] [address] [place] [address] 61029 Vilma Neves MD [address] [place] [phone] 08/28/2024 8:30 AM PLANTING MACHINE CREWMAN Office Visit [facility] [address] [place] [address] 32770 08/31/2024 8:30 AM PLANTING MACHINE CREWMAN Office Visit [facility] [address] [place] [address] 33778 09/01/2024 8:30 AM PLANTING MACHINE CREWMAN Office [facility] [address] [place] [address] 41536 09/02/2024 8:30 AM PLANTING MACHINE CREWMAN Office Visit [facility] [address] [place] [address] 96413 09/03/2024 8:30 AM PLANTING MACHINE CREWMAN Office Visit [facility] [address] [place] [address] [phone] 09/03/2024 11:00 AM PLANTING MACHINE CREWMAN Office Visit [facility] [address] [place] [address] 06832 Vilma Neves MD [address] [place] [address] [phone] 09/03/2024 11:00 AM PLANTING MACHINE CREWMAN Office Visit [facility] Infectious Disease [address] [place] [address] 38295 Amairani Sigala MD [address] [place] [address] [phone] 09/04/2024 8:30 AM PLANTING MACHINE CREWMAN Office Visit [facility] [address] [place] [address] 50695 09/07/2024 8:30 AM PLANTING MACHINE CREWMAN Office Visit [facility] [address] [place] [address] 16888 09/08/2024 8:30 AM PLANTING MACHINE CREWMAN Office Visit [facility] [address] [place] [address] 36856 09/09/2024 8:30 AM PLANTING MACHINE CREWMAN Office Visit [facility] Wound [facility] [address] [place] [address] [phone] 09/10/2024 8:30 AM PLANTING MACHINE CREWMAN Office Visit [facility] [address] [place] [address] 86424 09/10/2024 11:20 AM PLANTING MACHINE CREWMAN Office Visit [facility] [address] [place] [address] [phone] Vilma Neves MD [address] [place] [phone] 09/11/2024 8:30 AM PLANTING MACHINE CREWMAN Office Visit [facility] [address] [place] [address] 17621 09/14/2024 8:30 AM PLANTING MACHINE CREWMAN Office Visit [facility] [address] [place] [address] 70309 09/15/2024 8:30 AM PLANTING MACHINE CREWMAN Office Visit [facility] [address] [place] [address] [phone] documented as of this encounter Visit Diagnoses Diagnosis Dressing change [Z48.00]- Primary Encounter for change or removal of nonsurgical wound dressing documented in this encounter Additional Health Concerns Infection Onset Date Last Indicated Resolved Time MSSA 06/06/2024 06/12/2024 07/13/2024 9:58 AM CDT documented as of this encounter Care Teams Gluer Machine Operator Relationship Specialty Start Date End Date Thu Bhagat PA-C [address] [place] [phone] PCP - General 11/26/22 documented as of this encounter
--- OUTSIDE RECORDS SUMMARY | 2024-08-21 10:24 | XMS_ITS | Encounter Summary ---
Author Organization [facility] er Address [address] [place] [address] Care Team Providers Care High Density Finishing Operator Name Role Phone Thu Bhagat PA-C Primary Care Provider [phone] Reason for Visit * Reason Comments OP Infusion * Consultation (Routine) - Canceled Specialty Diagnoses / Procedures Referred By Klaey t Referred To Contact Infusion Therapy Diagnoses Infection of right foot Pina Méndez MD [address] [place] [phone] [facility] Infusion Therapy [address] [place] [address] Referral ID Status Reason Start Date Expiration Date Visits Requested Visits Authorized [id number] Canceled Specialty Services Required 06/17/2024 10/16/[phone] Encounter Details Date Type Department Care Team ([facility] st Contact Info) Description 06/30/2024 2:00 PM CDT Infusion [facility] Infusion Therapy [address] [place] [address] Infection of right foot (Primary Dx); Non-healing surgical wound, subsequent encounter Social History Tobacco Use Types Packs/Day Years [...] from your doctor or pharmacy? Never 06/06/2024 [facility] Utilities Answer Date Recorded In the [...] often do you attend chur ch or mormon services? More than 4 times [...] st Contact Info) Description 08/24/2024 8:30 AM TEACHER DANCING Office Visit [facility] Wound Care [address] [place] [address] 08/24/2024 11:30 AM TEACHER DANCING Office Visit [facility] [address], [place] [address] Angel Coombs, DPM [address] [place] [phone] 08/25/2024 8:30 AM TEACHER DANCING Office Visit [facility] Wound Care [address] [place] [address] 08/26/2024 8:30 AM TEACHER DANCING Office Visit [facility] W[facility] [address] [place] [phone] 08/27/2024 8:30 AM TEACHER DANCING Office Visit [facility] Wound Care [address] [place] [phone] 08/27/2024 11:00 AM TEACHER DANCING Office Visit [facility] Wound Care [address] [place] [phone] Vilma Neves MD [address] [place] [phone] 08/28/2024 8:30 AM TEACHER DANCING Office Visit [facility] W[facility] Care [address] [place] [phone] 08/31/2024 8:30 AM TEACHER DANCING Office Visit [facility] W[facility] [address] [place] [phone] 09/01/2024 8:30 AM TEACHER DANCING Office Visit [facility] Wound Care [address] [place] [address] 09/02/2024 8:30 AM TEACHER DANCING Office Visit [facility] W[facility] Care [address] [place] [address] 09/03/2024 8:30 AM TEACHER DANCING Office Visit [facility] W[facility] [address] [place] [address] 09/03/2024 11:00 AM TEACHER DANCING Office Visit [facility] Wound Care [address] [place] [address] Vilma Neves MD [address] [place] [phone] 09/03/2024 11:00 AM TEACHER DANCING Office Visit [facility] Infectious Disease [address] [place] [address] Amairani Sigala MD [address] [place] [phone] 09/04/2024 8:30 AM TEACHER DANCING Office Visit [facility] W[facility] Care [address] [place] [address] 09/07/2024 8:30 AM TEACHER DANCING Office Visit [facility] W[facility] [address] [place] [phone] 09/08/2024 8:30 AM TEACHER DANCING Office Visit [facility] W[facility] [address] [place] [address] 09/09/2024 8:30 AM TEACHER DANCING Office Visit [facility] W[facility] [address] [place] [phone] 09/10/2024 8:30 AM TEACHER DANCING Office Visit [facility] W[facility] [address] [place] [phone] 09/10/2024 11:20 AM TEACHER DANCING Office Visit [facility] W[facility] Care [address] [place] [phone] Vilma Neves MD [address] [place] [phone] 09/11/2024 8:30 AM TEACHER DANCING Office Visit [facility] Wound Care [address] [place] [address] 09/14/2024 8:30 AM TEACHER DANCING Office Visit [facility] Wound Care [address] [place] [address] 09/15/2024 8:30 AM TEACHER DANCING Office Visit [facility] Wound Care [address] [place] [phone] documented as of this encounter Procedures Procedure Name Priority Date/Time Associated Diagnosis Comments ESTIMATED GLOMERULAR FILTRATION RATE (EGFR) Routine 06/30/2024 1:56 PM CDT Infection of right foot CBC WITH AUTO DIFFERENTIAL Routine 06/30/2024 1:56 PM CDT Infection of right foot COMPREHENSIVE METABOLIC PANEL Routine 06/30/2024 1:56 PM CDT Infection of right foot documented in this encounter Results * Estimated Glomerular Filtration Rate (eGFR) (06/30/2024 1:56 PM CDT) Estimated Glomerular Filtration Rate (eGFR) >60 06/30/2024 4:21 PM CDT [facility] Comment: GFR calculated from serum creatinine value Chronic Kidney Disease less than 60 mL/min/1.73 m2 Kidney Failure less than 15 mL/min/1.73 m2 Note: effective 10/17/2022: 2020 CKD-EPI Equation used 06/30/2024 1:56 PM CDT 06/30/2024 1:56 PM CDT Pina Méndez MD LAB BLOOD ORDERABLES [facility] [address] [place] [address] * (ABNORMAL) Comprehensive metabolic panel (06/30/2024 1:56 PM CDT) Total Protein 7.0 6.3 - 8.2 g/dL 06/30/2024 4:21 PM CDT [facility] Albumin, Serum 3.6 3.5 - 5.0 g/dL 06/30/2024 4:21 PM [facility] Total Bilirubin 1.1(H) 0.1 - 1.0 mg/dL 06/30/2024 4:21 PM [facility] AST 30 8 - 48 U/L 06/30/2024 4:21 PM [facility] Alkaline Phosphatase 67 38 - 128 U/L 06/30/2024 4:21 PM [facility] ALT (SGPT) 24 0 - 49 U/L 06/30/2024 4:21 PM [facility] Sodium 138 135 - 145 mEq/L 06/30/2024 4:21 PM [facility] Potassium 4.3 3.5 - 5.1 mEq/L 06/30/2024 4:21 PM [facility] Chloride 104 98 - 107 mEq/L 06/30/2024 4:21 PM [facility] CO2 26 22 - 31 mmol/L 06/30/2024 4:21 PM [facility] BUN 13 5 - 25 mg/dL 06/30/2024 4:21 PM [facility] Creatinine 1.17 0.60 - 1.40 mg/dL 06/30/2024 4:21 PM [facility] Glucose 108(H) 70 - 100 mg/dL 06/30/2024 4:21 PM [facility] Calcium, Total,S 9.3 8.4 - 10.2 mg/dL 06/30/2024 4:21 PM [facility] Anion Gap 8 4 - 13 06/30/2024 4:21 PM [facility] Comment: The anion gap is calculated with the following formula: AGAP = Na ? (Cl + CO2). Fasting? Unknown 06/30/2024 2:00 PM [facility] Blood (Blood, Venous) 06/30/2024 1:56 PM CDT 06/30/2024 2:00 PM CDT Pina Méndez MD LAB BLOOD ORDERABLES [facility] [address] [place] [address] * (ABNORMAL) CBC auto differential (06/30/2024 1:56 PM CDT) WBC 6.5 3.5 - 10.5 K/uL 06/30/2024 2:09 PM T [facility] RBC 5.40 4.30 - 5.70 M/uL 06/30/2024 2:09 PM T [facility] Hemoglobin 16.0 13.5 - 17.5 g/dL 06/30/2024 2:09 PM T [facility] Hematocrit 49.2 38.0 - 50.0 % 06/30/2024 2:09 PM [facility] Platelets 253 150 - 450 K/uL 06/30/2024 2:09 PM [facility] MCV 91.1 81.2 - 95.1 fL 06/30/2024 2:09 PM [facility] MCH 29.6 26.0 - 32.0 pg 06/30/2024 2:09 PM [facility] MCHC 32.5 32.0 - 36.0 g/dL 06/30/2024 2:09 PM [facility] RDW 14.6 11.8 - 15.6 % 06/30/2024 2:09 PM [facility] NRBC %, Automated 0 % 06/30/2024 2:09 PM [facility] NRBC Absolute, Autmated 0.00 K/uL 06/30/2024 2:09 PM [facility] Comment: 0-4 Days: 0.01 -0.02 >=5 Days: 0.00 Neutrophils 63.7 % 06/30/2024 2:09 PM [facility] Absolute Neutrophils 4.1 1.7 - 7.0 K/uL 06/30/2024 2:09 PM [facility] Lymphocytes % 20.5 % 06/30/2024 2:09 PM CDT [facility] Absolute Lymphocytes 1.3 0.9 - 2.9 K/uL 06/30/2024 2:09 PM T [facility] Monocytes % 9.3 % 06/30/2024 2:09 PM [facility] Monocytes Absolute 0.6 0.3 - 0.9 K/uL 06/30/2024 2:09 PM T [facility] Eosinophils 4.9 % 06/30/2024 2:09 PM [facility] Absolute Eosinophils 0.3 0.1 - 0.5 K/uL 06/30/2024 2:09 PM [facility] Basophils 0.8 % 06/30/2024 2:09 PM [facility] Absolute Basophils 0.1 0.0 - 0.1 K/uL 06/30/2024 2:09 PM [facility] Immature Leukocytes 0.8 % 06/30/2024 2:09 PM [facility] Immature Leukocytes Absolute 0.05(H) 0.00 - 0.04 K/uL 06/30/2024 2:09 PM [facility] Blood (Blood, Venous) 06/30/2024 1:56 PM CDT 06/30/2024 2:00 PM CDT Pina Méndez MD LAB BLOOD ORDERABLES [facility] [address] [place] [phone] documented in this encounter Visit Diagnoses Diagnosis Infection of right foot- Primary Non-healing surgical wound, subsequent encounter documented in this encounter Additional Health Concerns Infection Onset Date Last Indicated Resolved Time MSSA 06/06/2024 06/12/2024 07/13/2024 9:58 AM CDT documented as of this encounter Care Teams High Density Finishing Operator Relationship Specialty Start Date End Date Thu Bhagat PA-C [address] [place] [phone] PCP - General 11/26/22 documented as of this encounter
--- OUTSIDE RECORDS SUMMARY | 2024-08-21 10:24 | XMS_ITS | Encounter Summary ---
Author Organization [facility] er Address [address] [place] [address] Care Team Providers Care Community Support Specialist Name Role Phone Thu Bhagat PA-C Primary Care Provider [phone] Reason for Visit * Reason Onset Date Comments [facility]21 Encounter Details Date Type Department Care Team (Late st Contact Info) Description 07/06/2024 Telephone [facility] [address] [place] [address] [place] [address] [place] [phone] [facility] for pt Social History Tobacco Use Types Packs/Day Years [...] from your doctor or pharmacy? Never 06/06/2024 [facility] Utilities Answer Date Recorded In the past [...] often do you attend chur ch or moravian services? More than 4 times per year 06/06/2024 Do you belong to any clubs o r organizations such as quaker groups, unions, fraternal or athletic groups, or [...] Recorded Patient Health Questionnaire-2 Score 0 06/06/2024 [facility] Occupat ional Health - Occupational Stress [...] any time in the past 12 m [facility], were you homeless or living in a group home (including now)? No 06/06/2024 Interpersonal Safety Questionnaire Answer Date Recorded How often does anyone, tyrell kerns family and friends, physically hurt you? Never 06/06/2024 How often does anyone, juancarolee kerns family and friends, insult or talk [...] encounter Miscellaneous Notes * Telephone Encounter - Mana Santiagocey - 07/06/2024 8:41 AM CDT [facility] called [facility] to verify if Francisco Javier has been scheduled for HBOT yet. Engine Watchman said we are still waiting on the approval and the [facility] outside dealer sales representative stated Francisco Javier has been approved for HBOT, she will be faxing over the [facility] HBOT consult form that shows the approval. documented in this encounter Plan of Treatment Upcoming Encounters Date Type Department Care Team (Late st Contact Info) Description 08/24/2024 8:30 AM RISK INTERN Office Visit [facility] [address] [place] [address] 08/24/2024 11:30 AM RISK INTERN Office Visit Podiatry [address] [place] [address] Angel Coombs, DPM [address] [place] [phone] 08/25/2024 8:30 AM RISK INTERN Office Visit [facility] [address] [place] [phone] 08/26/2024 8:30 AM RISK INTERN Office Visit [facility] Wound Care [address] [place] [phone] 08/27/2024 8:30 AM RISK INTERN Office Visit [facility] Wound Care [address] [place] [address] 08/27/2024 11:00 AM RISK INTERN Office Visit [facility] [address] [place] [phone] Vilma Neves MD [address] [place] [phone] 08/28/2024 8:30 AM RISK INTERN Office Visit [facility] [address] [place] [address] 14027 08/31/2024 8:30 AM RISK INTERN Office Visit [facility] Wound Care [address] [place] [phone] 09/01/2024 8:30 AM RISK INTERN Office Visit [facility] [address] [place] [address] 09/02/2024 8:30 AM RISK INTERN Office Visit [facility] [address] [place] [phone] 09/03/2024 8:30 AM RISK INTERN Office Visit [facility] [address] [place] [phone] 09/03/2024 11:00 AM RISK INTERN Office Visit [facility] [address] [place] [phone] Vilma Neves MD [address] [place] [phone] 09/03/2024 11:00 AM RISK INTERN Office Visit [facility] Infectious Disease [address] [place] [phone] Amairani Sigala MD [address] [place] [phone] 09/04/2024 8:30 AM RISK INTERN Office Visit [facility] [address] [place] [phone] 09/07/2024 8:30 AM RISK INTERN Office Visit [facility] [address] [place] [phone] 09/08/2024 8:30 AM RISK INTERN Office Visit [facility] [address] [place] [address] [phone] 09/09/2024 8:30 AM RISK INTERN Office Visit [facility] [address] [place] [address] [phone] 09/10/2024 8:30 AM RISK INTERN Office Visit [facility] [address] [place] [phone] 09/10/2024 11:20 AM RISK INTERN Office Visit [facility] [address] [place] [phone] Vilma Neves MD [address] [place] [phone] 09/11/2024 8:30 AM RISK INTERN Office Visit [facility] Wound Care [address] [place] [phone] 09/14/2024 8:30 AM RISK INTERN Office Visit [facility] Wound Care [address] [place] [phone] 09/15/2024 8:30 AM RISK INTERN Office Visit [facility] Wound Care [address] [place] [phone] documented as of this encounter Visit Diagnoses Not on filedocumented in this encounter Additional Health Concerns Infection Onset Date Last Indicated Resolved Time MSSA 06/06/2024 06/12/2024 07/13/2024 9:58 AM CDT documented as of this encounter Care Teams Community Support Specialist Relationship Specialty Start Date End Date Thu Bhagat PA-C [address] [place] [phone] PCP - General 11/26/22 documented as of this encounter
--- OUTSIDE RECORDS SUMMARY | 2024-08-21 10:25 | XMS_ITS | Encounter Summary ---
Author Organization [facility] er Address [address] [place] [address] Care Team Providers Care Flotation Tank Operator Name Role Phone Thu Bhagat PA-C Primary Care Provider [phone] Reason for Referral * Consultation (Routine) - Authorized Specialty Diagnoses / Procedures Referred By Kaley laguna Referred To Contact [employer] Diagnoses Non-healing surgical wound, subsequent encounter Rocco Couch PA-C [address] [place] [phone] [facility] [employer] [address] [place] [phone] Referral ID Status Reason Start Date Expiration Date V isits Requested Visits Authorized [id number] Authorized 06/18/2024 06/18/2025 1 1 Scheduling Instructions This 69 y/o male recently released from hospital following toe and partial metatarsal amputation is going to need assistance with transport as he will need to come to hospital several days a week for IV antibiotic infusions and for dressing changes, follow up. His girlfriend works and can't drive him all the time and isn't interested in changing his bandages at home, so will need wound nursing visits to home 2 x week for dressing changes. We can complete a dressing change a week at wound clinic. Please contact patient / girlfriend to assist with this which will need to start next week. * Consultation (Routine) - Authorized Specialty Diagnoses / Procedures Referred By Contac t Referred To Contact Wound Care Diagnoses Non-healing surgical wound, subsequent encounter Rocco Couch PA-C [address] [place] [phone] Referral ID Status Reason Start Date Expiration Date Visits Requested Visits Authorized [id number] Authorized Specialty Services Required 06/18/2024 12/15/2024 99 99 Reason for Visit * Reason Comments Wound Check Encounter Details Date Type Department Care Team (Late st Contact Info) Description 06/18/2024 1:00 PM CDT Office Visit [facility] Wound Care [address] [place] [phone] Rocco Couch PA-C [address] [place] [phone] Non-healing surgical wound, subsequent encounter (Primary Dx); 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 Never 06/06/2024 [facility] Utilities Answer Date Recorded In the past 12 months has e [employer], oil, or water [employer] threatened to shut off services in your [...] How often do you attend chur or church services? More than 4 times per year 06/06/2024 Do you belong to any clubs o r organizations such as cheondoism groups, unions, fraternal or athletic groups, or [...] 06/06/2024 [facility] - Occupational [...] Sign Reading Time Taken Comments Blood Pressure 131/86 06/18/2024 1:28 PM CDT Pulse 94 06/18/2024 1:28 PM CDT Temperature 36.3 ??C (97.3 ??F) 06/18/2024 1:28 PM CD T Respiratory Rate - - Oxygen Saturation - - Inhaled Oxygen Concentration - - Weight 84 kg (185 lb 3 oz) 06/18/2024 1:28 PM CD T Height - - Body Mass Index 24.44 06/15/2024 9:53 AM CDT documented in this encounter Patient Instructions * Patient Instructions* Riya Stewart RN - 06/18/2024 1:00 PM CDT Keep dressings clean and dry; call the wound clinic with any questions or concerns. Please picking crew supervisor a cast bag for showering from [facility], [facility], [facility], etc documented in this encounter Progress Notes * Rocco Couch PA-C - 06/18/2024 1:00 PM CDT Advanced Wound Healing Visit Type: New Patient Subjective Francisco Javier Fung is a 69 y.o. male who presents today for wound check. Patient is NEW to the [facility] and was referred by podiatry following Incision and drainage with possible delayed primary closure right foot, surgery was performed 06/12/[address] Angel Coombs, KERVIN, this following ulceration of right foot status post amputation of right second toe and partial second ray am putation of right foot performed 06/08/24 due to necrosis and osteomyelitis. Patient was released from hospital yesterday, 06/17/24 and was to follow up with the [facility] for NPWT ordering and placement. He was discharged to home and is receiving IV ertapenem via the [facility]fusion [facility] daily for a month. He was also prescribed doxycycline 100mg orally twice daily x 14 days. He has type 2 diabetes, poorly controlled, last HA1C is 9.0 on 06/06/24. He has atrial fibrillation and takes apixaban. He has had history of stroke and systolic heart failure. No wound complaints, no complaints of pain or dressing problems today. His primary care provider is GABBIE Bhagat. He is a non-smoker, lives with his girlfriend, is a non-smoker and is a [employer] . Past Medical History: Diagnosis Date Atrial fibrillation (HCC) 02/03/2016 Compression fracture of vertebra (HCC) 02/04/2017 Confusion 05/20/2018 Dizziness 08/05/2012 Essential hypertension [...] syndrome in adult 02/09/2016 Presbyopia 03/15/2005 Stroke (HCC) 05/23/2018 Type 2 diabetes mellitus with diabetic neuropathy, unspecified (HCC) 09/22/2012 Unspecified systolic (congestive) heart failure (HCC) 05/23/2018 Past Surgical History: Procedure Laterality Date FOOT AMPUTATION THROUGH METATARSAL Right 06/08/2024 Procedure: Right second toe amputation with wound debridement and incision and drainage. Possible transmetatarsal amputation with gastroc lengthening; Surgeon: Megan Lopez DPM; Location: [facility] OR; Service: Podiatry; Laterality: Right; INCISION AND DRAINAGE OF WOUND Right 06/12/2024 Procedure: INCISION AND DRAINAGE woth possible delayed primary closure right foot; Surgeon: Angel Coombs DPM; Location: [facility] OR; Service: Podiatry; Laterality: Right; Labs reviewed: GFR: > 60 06/17/24 HA1C: 9.0 06/06/24 The following portions of the patient's history were reviewed by a provider in this encounter and updated as appropriate: Objective Visit Vitals BP 131/86 (BP Location: Right arm, Patient Position: Sitting, BP Cuff Size: Adult) Pulse 94 Temp 36.3 ??C (97.3 ??F) (Temporal) Wt 84 kg (185 lb 3 oz) BMI 24.44 kg/m?? Smoking Status Never BSA 2.08 m?? Wound: #1: Non-healing surgical wound status post right 2nd toe and partial 2nd ray amputation, open surgical wound. The wound looks clean with little slough, exposed muscle, fat, no purulence, no odor, no tunneling or undermining present. There is no exposure of bone, No periwound erythema, there is some edema in the foot, no lymphangitis. Procedure Note: Wound #1 Time-out:1447 Excisional debridement: muscle (outside wound margins to establish healthy tissue border) Character of Wound/Ulcer: new Procedural pain level: 0 Post procedure pain level: 0 Instrument used: curette Tissue / material removed: non-viable, skin, fat, muscle, slough EBL: moderate Hemostasis achieved by using: pressure Tissue Culture or DNA/PCR? no Wound cleansing: saline / vashe Character of wound/ ulcer post debridement: improved Response to treatment: well tolerated Post procedure wound appearance: improved as evidence by fresh bleeding tissue Depth of debridement muscle Post debridement exposed structure(s): muscle Pre debridement measurements (cm's) L 7.6 cm W 3.6 cm D 2.8 cm total sq cm 27.36 cm^2 Post debridement measurements (cm's) L 7.8 cm W 3.9 cm D 2.9 cm total sq cm 27.36 cm^2 Assessment/Plan Diagnoses and all orders for this visit: Non-healing surgical wound, subsequent encounter - [facility] Wound Vac - Ultrasound lower extremity art doppler bilateral limited (ANNA's); Future - Ambulatory referral to Medical [employer] [employer]: Resource and Referral - Albumin; Future 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 Will need assist as patients girlfriend refuses to assist with dressings and she works and can't be home with him all the time. Sent referral to [employer] to find home wound nursing agency who can work with his wound, dressings and also can work with planned Negative Pressure Wound Therapy device when applied. Off-loading: he has a knee scooter for offloading his foot. Compression: Tubigrip Antibiotics: Receiving oral doxycycline 100mg orally twice daily, also receiving IV Ertapenem at [facility] Nutritional optimization: Advised pt to increase protein intake via diet supplementation to accelerate wound healing Glucose optimization: continue to work with PCP and DM edu on glycemic control Rehab services on board? Future Referral to podiatry for Orthotics needed? future Vascular status: No cyanosis in lower extremities, pulses PT and DP are dopplerable, cap refill < 2-3 minutes Venous U/S? Future prn Weight loss counseling? Fit Prior auth???s: NPWT - will likely need [employer] Special considerations: Lives with girlfriend who isn't able to help with dressings, [facility], Uncontrolled type 2 diabetes Further testing/studies needed: ANNA's / DBI's arterial ultrasound lower extremities Referrals: disabilities services officer for assistance with home wound care / wound vac and dressings as well astransportation to [facility] outpatient infusion clinic and [facility] appointments Patient was counseled on their diagnosis and a detailed personalized treatment plan was designed: 1) advanced wound healing plan including dressings and debridements 2) importance of off-loading and compression 3) skin hygiene in wound prevention 4) signs and symptoms of sepsis I personally and independently reviewed the results of patient's chart above. Chart review includes notes from EMR, EPIC, labs, imaging Serum Albumin lab ordered. Risk: High risk of morbidity or mortality from additional diagnostic testing or treatment provided during today's appointment due to uncontrolled type 2 diabetes, history of stroke, congestive heart failure. Patient presenting today with Acute or chronic condition that poses a threat to life or bodily function Details of today???s visit were discussed in detail as well as plan moving forward. The patient agrees with the proposed plan. Any and all questions and concerns regarding wound management were addressed at the conclusion of the visit. Return to clinic for dressing change, nurse only on Saturday06/23/24, and is also scheduled to see foot surgeon, Dr. Jayden Coombs, KERVIN. Will be seeing Dr. Neves in Advanced wound healing clinic on 06/25/24 for further wound evaluation. Plan is to soon place NPWT. Call the wound clinic sooner if problems arise with wound or woundcare. DO NOT go to the Emergency Department for your woundcare unless you have EMERGENT problem with your wound that occurs AFTER HOURS, or on WEEKENDS. Patient voiced understanding of assessment and plan. Rocco Couch PA-C documented in this encounter Plan of Treatment Upcoming Encounters Date Type Department Care Team (Late st Contact Info) Description 08/24/2024 8:30 AM TRIMMER BUFFING WHEEL Office Visit [facility] [address] [place] [phone] 08/24/2024 11:30 AM TRIMMER BUFFING WHEEL Office Visit [facility] [address] [address] Angel Coombs, DPM [address] [place] [phone] 08/25/2024 8:30 AM TRIMMER BUFFING WHEEL Office Visit [facility] [address] [place] [address] 08/26/2024 8:30 AM TRIMMER BUFFING WHEEL [facility] Visit [facility] [address] [place] [phone] 08/27/2024 8:30 AM TRIMMER BUFFING WHEEL Office Visit [facility] [address] [place] [address] 08/27/2024 11:00 AM TRIMMER BUFFING WHEEL [facility] Visit [facility] [address] [place] [address] Vilma Neves MD [address] [place] [phone] 08/28/2024 8:30 AM TRIMMER BUFFING WHEEL Office Visit [facility] [address] [place] [phone] 08/31/2024 8:30 AM TRIMMER BUFFING WHEEL [facility] Visit [facility] [address] [place] [address] 09/01/2024 8:30 AM TRIMMER BUFFING WHEEL Office Visit [facility] [address] [place] [address] 09/02/2024 8:30 AM TRIMMER BUFFING WHEEL [facility] [address] [place] [address] 09/03/2024 8:30 AM TRIMMER BUFFING WHEEL Office Visit [facility] [address] [place] [phone] 09/03/2024 11:00 AM TRIMMER BUFFING WHEEL [facility] Visit [facility] [address] [place] [address] Vilma Neves MD [address] [place] [phone] 09/03/2024 11:00 AM TRIMMER BUFFING WHEEL Office Visit [facility] Infectious Disease [address] [place] [address] Amairani Sigala MD [address] [place] [phone] 09/04/2024 8:30 AM TRIMMER BUFFING WHEEL Office Visit [facility] W[facility] [address] [place] [phone] 09/07/2024 8:30 AM TRIMMER BUFFING WHEEL Office Visit [facility] W[facility] [address] [place] [address] 09/08/2024 8:30 AM TRIMMER BUFFING WHEEL Office Visit [facility] [address] [place] [phone] 09/09/2024 8:30 AM TRIMMER BUFFING WHEEL Office Visit [facility] [address] [place] [address] 09/10/2024 8:30 AM TRIMMER BUFFING WHEEL Office Visit [facility] [address] [place] [address] 09/10/2024 11:20 AM TRIMMER BUFFING WHEEL Office Visit [facility] [address] [place] [address] Vilma Neves MD [address] [place] [address] [phone] 09/11/2024 8:30 AM TRIMMER BUFFING WHEEL Office Visit [facility] [address] [place] [phone] 09/14/2024 8:30 AM TRIMMER BUFFING WHEEL Office Visit [facility] [address] [place] [address] 09/15/2024 8:30 AM TRIMMER BUFFING WHEEL Office Visit [facility] [address] [place] [address] Scheduled Orders Name Type Priority Associated Diagnoses Orde r Schedule Ultrasound lower extremity art doppler bilateral limited (ANNA's) Imaging Routine Non-healing surgical wound, subsequent encounter Expected: 06/18/2024, Expires: 07/19/2024 Scheduled Referrals Name Type Priority Associated Diagnoses Order Schedule [facility] Wound Vac Outpatient Referral Routine Non-healing surgical wound, subsequent encounter Ordered: 06/18/2024 Ambulatory referral to [facility] [employer] [facility]: Resource and Referral Outpatient Referral Routine Non-healing surgical wound, subsequent encounter Ordered: 06/18/2024 documented as of this encounter Visit Diagnoses Diagnosis Non-healing surgical wound, subsequent encounter- Primary 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
--- OUTSIDE RECORDS SUMMARY | 2024-08-21 10:25 | XMS_ITS | Encounter Summary ---
Author Organization [facility] Address [address] [place] [address] Care Team Providers Care Rural Carrier Name Role Phone Thu Bhagat PA-C Primary Care Provider [phone] Encounter Details Date Type Department Care Team (Late st Contact Info) Description 06/19/2024 Telephone [facility] [address] [place] [address] Angel Coombs, DP [address] [place] [phone] Social History Tobacco Use Types [...] your doctor or pharmacy? Never 06/06/2024 [facility] Utilities Answer Date Recorded In the [...] How often do you attend chur or yazidi services? More than 4 times per year [...] Recorded Patient Health Questionnaire-2 Score 0 06/06/2024 [facility] - Occupational [...] Encounter - Valeria Tobar RN - 07/02/2024 8:04 AM CDT Discussed with patient that [facility] a [facility]. Patient in agreement with plan. * Telephone Encounter - Nirav Rhonda - 06/19/2024 11:34 AM CDT Called patient as he has an appointment currently scheduled with Dr. Coombs in Podiatry on Saturday06/23/2024. He does not have a current approval to see Podiatry under the Media tab, only approved to see [facility]. Confirmed with Lianet that he does not have approval to see Podiatry as [facility]. The [place] advised Lianet that patient should continue to be cared through by [facility]fusion[facility] W[facility], and if patient would like to see Podiatry, as Dr. Coombs did do his surgery, he would have to request this, or one of those two departments would have to send a request of service to the [place]. The appointment with Dr. Coombs will be cancelled so he does not get charged personally for this visit. I was unable to leave as his mailbox is full. Will continue to call patient to try to inform him prior to his appointment, but he is seeing [facility] W[facility] prior to his Saturday appointment. Can someone please inform him of this information? Thank you! documented in this encounter Plan of Treatment Upcoming Encounters Date Type Department Care Team (Late st Contact Info) Description 08/24/2024 8:30 AM NURSE INSTRUCTOR Office Visit [facility] Wound Care [address] [place] [phone] 08/24/2024 11:30 AM NURSE INSTRUCTOR [facility] Visit [facility] [address] [place] [address] Angle Coombs, DPM [address] [place] [phone] 08/25/2024 8:30 AM NURSE INSTRUCTOR Office Visit [facility] Wound Care [address] [place] [address] 08/26/2024 8:30 AM NURSE INSTRUCTOR Office Visit [facility] Wound Care [address] [place] [phone] 08/27/2024 8:30 AM NURSE INSTRUCTOR Office Visit [facility] Wound Care [address] [place] [phone] 08/27/2024 11:00 AM NURSE INSTRUCTOR Office Visit [facility] Wound Care [address] [place] [address] Vilma Neves MD [address] [place] [phone] 08/28/2024 8:30 AM NURSE INSTRUCTOR Office Visit [facility] Wound Care [address] [place] [address] 08/31/2024 8:30 AM NURSE INSTRUCTOR Office Visit [facility] Wound Care [address] [place] [phone] 09/01/2024 8:30 AM NURSE INSTRUCTOR Office Visit [facility] W[facility] [address] [place] [address] 09/02/2024 8:30 AM NURSE INSTRUCTOR Office Visit [facility] W[facility] Care [address] [place] [address] 09/03/2024 8:30 AM NURSE INSTRUCTOR Office Visit [facility] Wound Care [address] [place] [address] 09/03/2024 11:00 AM NURSE INSTRUCTOR Office Visit [facility] Wound Care [address] [place] [address] Vilma Neves MD [address] [place] [phone] 09/03/2024 11:00 AM NURSE INSTRUCTOR Office Visit [facility] Infectious Disease [address] [place] [address] Amairani Sigala MD [address] [place] [phone] 09/04/2024 8:30 AM NURSE INSTRUCTOR Office Visit [facility] W[facility] [address] [place] [address] 09/07/2024 8:30 AM NURSE INSTRUCTOR Office Visit [facility] W[facility] [address] [place] [phone] 09/08/2024 8:30 AM NURSE INSTRUCTOR Office Visit [facility] W[facility] [address] [place] [address]47 09/09/2024 8:30 AM NURSE INSTRUCTOR Office Visit [facility] W[facility] [address] [place] [address]29 09/10/2024 8:30 AM NURSE INSTRUCTOR Office Visit [facility] W[facility] Care [address] [place] [phone] 09/10/2024 11:20 AM NURSE INSTRUCTOR Office Visit [facility] W[facility] [address] [place] [phone] Vilma Neves MD [address] [place] [address] [phone] 09/11/2024 8:30 AM NURSE INSTRUCTOR Office Visit [facility] [address] [place] [address]233 09/14/2024 8:30 AM NURSE INSTRUCTOR Office Visit [facility] [address] [place] [phone] 09/15/2024 8:30 AM NURSE INSTRUCTOR Office Visit [facility] [address] [place] [phone] documented as of this encounter Visit Diagnoses Not on filedocumented in this encounter Additional Health Concerns Infection Onset Date Last Indicated Resolved Time MSSA 06/06/2024 06/12/2024 07/13/2024 9:58 AM CDT documented as of this encounter Care Teams Rural Carrier Relationship Specialty Start Date End Date Thu Bhagat PA-C [address] [place] [phone] PCP - General 11/26/22 documented as of this encounter
--- OUTSIDE RECORDS SUMMARY | 2024-08-21 10:25 | XMS_ITS | Encounter Summary ---
Author Organization [facility] er Address [address] [place] [address] Care Team Providers Care Rn Correctional Name Role Phone Thu Bhagat PA-C Primary Care Provider [phone] Reason for Visit * Reason Comments OP Infusion * Consultation (Routine) - Canceled Specialty Diagnoses / Procedures Referred By Kaley t Referred To Contact Infusion Therapy Diagnoses Infection of right foot Pina Méndez MD [address] [place] [phone] [facility] Infusion Therapy [address] [place] [address] Referral ID Status Reason Start Date Expiration Date Visits Requested Visits Authorized [id number] Canceled Specialty Services Required 06/17/2024 10/16/2024 99 99 Encounter Details Date Type Department Care Team ([facility] st Contact Info) Description 06/19/2024 2:00 PM CDT Infusion [facility] Infusion Therapy [address] [place] [address] Infection of right foot (Primary Dx) [...] from your doctor or pharmacy? Never 06/06/2024 [facility] Utilities Answer Date Recorded In [...] often do you attend chur ch or sikhism services? More than 4 times per year 06/06/2024 Do you belong to any clubs o r organizations such as worship groups, unions, fraternal or athletic groups, or [...] Recorded Patient Health Questionnaire-2 Score 0 06/06/2024 [facility] - Occupational Stress Questionnaire Answer [...] Sign Reading Time Taken Comments Blood Pressure 115/85 06/19/2024 2:15 PM CDT Pulse 90 06/19/2024 2:15 PM CDT Temperature 36.1 ??C (97 ??F) 06/19/2024 2:14 PM CDT Respiratory Rate 16 06/19/2024 2:15 PM CDT Oxygen Saturation 96% 06/19/2024 2:15 PM CDT Inhaled Oxygen Concentration - - Weight - - Height - - Body Mass Index - - documented in this encounter Plan of Treatment Upcoming Encounters Date Type Department Care Team (Late st Contact Info) Description 08/24/2024 8:30 AM ASSEMBLER SEAT Office Visit [facility] Wound Care [address] [place] [phone] 08/24/2024 11:30 AM ASSEMBLER SEAT Office Visit [facility] [address] [place] [phone] Angel Coombs, DPM [address] [place] [phone] 08/25/2024 8:30 AM ASSEMBLER SEAT Office Visit [facility] Wound Care [address] [place] [address] 08/26/2024 8:30 AM ASSEMBLER SEAT Office Visit [facility] Wound Care [address] [place] [phone] 08/27/2024 8:30 AM ASSEMBLER SEAT Office Visit [facility] Wound Care [address] [place] [address] 08/27/2024 11:00 AM ASSEMBLER SEAT Office Visit [facility] Wound Care [address] [place] [address] [place] [address] [place] [phone] 08/28/2024 8:30 AM ASSEMBLER SEAT Office Visit [facility] Wound Care [address] [place] [address] 08/31/2024 8:30 AM ASSEMBLER SEAT Office Visit [facility] Wound Care [address] [place] [address] 09/01/2024 8:30 AM ASSEMBLER SEAT Office Visit [facility] Wound Care [address] [place] [address] 09/02/2024 8:30 AM ASSEMBLER SEAT Office Visit [facility] Wound Care [address] [place] [address] 09/03/2024 8:30 AM ASSEMBLER SEAT Office Visit [facility] Wound Care [address] [place] [phone] 09/03/2024 11:00 AM ASSEMBLER SEAT Office Visit [facility] Wound Care [address] [place] [address] Vilma Neves MD [address] [place] [phone] 09/03/2024 11:00 AM ASSEMBLER SEAT Office Visit [facility] Hospital Infectious Disease [address] [place] [address] Amairani Sigala MD [address] [place] [phone] 09/04/2024 8:30 AM ASSEMBLER SEAT Office Visit [facility] Wound Care [address] [place] [phone] 09/07/2024 8:30 AM ASSEMBLER SEAT Office Visit [facility] Wound Care [address] [place] [phone] 09/08/2024 8:30 AM ASSEMBLER SEAT Office Visit [facility] Wound Care [address] [place] [address] 09/09/2024 8:30 AM ASSEMBLER SEAT Office Visit [facility] Wound Care [address] [place] [address] 09/10/2024 8:30 AM ASSEMBLER SEAT Office Visit [facility] Wound Care [address] [place] [phone] 09/10/2024 11:20 AM ASSEMBLER SEAT Office Visit [facility] Wound Care [address] [place] [address] Vilma Neves MD [address] [place] [address] [phone] 09/11/2024 8:30 AM ASSEMBLER SEAT Office Visit [facility] Wound Care [address] [place] [address] 09/14/2024 8:30 AM ASSEMBLER SEAT Office Visit [facility] Wound Care [address] [place] [address] 09/15/2024 8:30 AM ASSEMBLER SEAT Office Visit [facility] Wound Care [address] [place] [phone] documented as of this encounter Visit Diagnoses Diagnosis Infection of right foot- Primary documented in this encounter Administered Medications Inactive Administered Medications - up to 3 most recent administrations Medication Order MAR Action Action Date Dose Rate Site ertapenem (INVanz) 1 g in sodium chloride 0.9 % 50 mL [id number] Plus 1 g, Intravenous, at 100 mL/hr, Administer over 30 Minutes, Every 24 hours, First dose on Sat06/19/24 at 1400, For 30 days, Indication: Cellulitis New Bag 06/19/2024 1:39 PM CDT 1 g 10 0 mL/hr documented in this encounter Additional Health Concerns Infection Onset Date Last Indicated Resolved Time MSSA 06/06/2024 06/12/2024 07/13/2024 9:58 AM CDT documented as of this encounter Care Teams Rn Correctional Relationship Specialty Start Date End Date Thu Bhagat PA-C [address] [place] [phone] PCP - General 11/26/22 documented as of this encounter
--- OUTSIDE RECORDS SUMMARY | 2024-08-21 10:25 | XMS_ITS | Encounter Summary ---
Author Organization [facility] er Address [address] [place] [address] Care Team Providers Care Pipe Organ Builder Name Role Phone Thu Bhagat PA-C Primary Care Provider [phone] Reason for Visit * Consultation (Routine) - Canceled Specialty Diagnoses / Procedures Referred By Conteufemia t Referred To Contact Infusion Therapy Diagnoses Infection of right foot Pina Méndez MD [address] [place] [phone] [facility] Infusion Therapy [address] [place] [address] Referral ID Status Reason Start Date Expiration Date Visits Requested Visits Authorized [id number] Canceled Specialty Services Required 06/17/2024 10/16/2024 99 99 Encounter Details Date Type Department Care Team ([facility] st Contact Info) Description 06/22/2024 2:00 PM CDT Infusion [facility] Infusion Therapy [address] [place] [address] Infection of right foot (Primary Dx) [...] your doctor or pharmacy? Never 06/06/2024 [facility] Utilities Answer Date Recorded In the [...] any clubs o r organizations such as yazidi groups, unions, fraternal or athletic groups, or [...] Patient Health Questionnaire-2 Score 0 06/06/2024 [facility] [place] [facility] Occupat ional [facility] - Occupational Stress Questionnaire Answer [...] any time in the past 12 m [facility], were you homeless or living in a halfway (including now)? No 06/06/2024 Interpersonal Safety Questionnaire [...] Sign Reading Time Taken Comments Blood Pressure 109/85 06/22/2024 1:46 PM CDT Pulse 82 06/22/2024 1:46 PM CDT Temperature 36.7 ??C (98 ??F) 06/22/2024 1:46 PM CDT Respiratory Rate 16 06/22/2024 1:46 PM CDT Oxygen Saturation 97% 06/22/2024 1:46 PM CDT Inhaled Oxygen Concentration - - Weight - - Height - - Body Mass Index - - documented in this encounter Plan of Treatment Upcoming Encounters Date Type Department Care Team (Late st Contact Info) Description 08/24/2024 8:30 AM DIRECTOR HOUSEKEEPING Office Visit [facility] Wound Care [address] [place] [address] 08/24/2024 11:30 AM DIRECTOR HOUSEKEEPING Office Visit Podiatry [address] [place] [phone] Angel Coombs, DPM [address] [place] [phone] 08/25/2024 8:30 AM DIRECTOR HOUSEKEEPING Office Visit [facility] Wound Care [address] [place] [address] 08/26/2024 8:30 AM DIRECTOR HOUSEKEEPING Office Visit [facility] Wound Care [address] [place] [address] 08/27/2024 8:30 AM DIRECTOR HOUSEKEEPING Office Visit [facility] Wound Care [address] [place] [address] 08/27/2024 11:00 AM DIRECTOR HOUSEKEEPING Office Visit [facility] Wound Care [address] [place] [address] 19405 Vilma Neves MD [address] [place] [phone] 08/28/2024 8:30 AM DIRECTOR HOUSEKEEPING Office Visit [facility] W[facility] Care [address] [place] [address] 08/31/2024 8:30 AM DIRECTOR HOUSEKEEPING Office Visit [facility] W[facility] Care [address] [place] [address] 09/01/2024 8:30 AM DIRECTOR HOUSEKEEPING Office Visit [facility] Wound Care [address] [place] [address] 616[address] 09/02/2024 8:30 AM DIRECTOR HOUSEKEEPING Office Visit [facility] Wound Care [address] [place] [address] 179[address] 09/03/2024 8:30 AM DIRECTOR HOUSEKEEPING Office Visit [facility] Wound Care [address] [place] [address] 09/03/2024 11:00 AM DIRECTOR HOUSEKEEPING Office Visit [facility] Wound Care [address] [place] [address] Vilma Neves MD [address] [place] [phone] 09/03/2024 11:00 AM DIRECTOR HOUSEKEEPING Office Visit [facility] Infectious Disease [address] [place] [address] 61596 Amairani Sigala MD [address] [place] [address] [phone] 09/04/2024 8:30 AM DIRECTOR HOUSEKEEPING Office Visit [facility] Wound Care [address] [place] [address] 09/07/2024 8:30 AM DIRECTOR HOUSEKEEPING Office Visit [facility] Wound Care [address] [place] [address] 09/08/2024 8:30 AM DIRECTOR HOUSEKEEPING Office Visit [facility] Wound Care [address] [place] [address] 20829 09/09/2024 8:30 AM DIRECTOR HOUSEKEEPING Office Visit [facility] Wound Care [address] [place] [address] 26771 09/10/2024 8:30 AM DIRECTOR HOUSEKEEPING Office Visit [facility] [address] [place] [address] 19660 09/10/2024 11:20 AM DIRECTOR HOUSEKEEPING Office Visit [facility] Wound Care [address] [place] [address] Vilma Neves MD [address] [place] [phone] 09/11/2024 8:30 AM DIRECTOR HOUSEKEEPING Office Visit [facility] Wound Care [address] [place] [address] 57187 09/14/2024 8:30 AM DIRECTOR HOUSEKEEPING Office Visit [facility] Wound Care [address] [place] [address] 44033 09/15/2024 8:30 AM DIRECTOR HOUSEKEEPING Office Visit [facility] Wound Care [address] [place] [address] 6[address]00 documented as of this encounter Visit Diagnoses Diagnosis Infection of right foot- Primary documented in this encounter Administered Medications Inactive Administered Medications - up to 3 most recent administrations Medication Order MAR Action Action Date Dose Rate Site ertapenem (INVanz) 1 g in sodium chloride 0.9 % 50 mL [id number]-[id number] Plus 1 g, Intravenous, at 100 mL/hr, Administer over 30 Minutes, Every 24 hours, First dose on Sat06/23/24 at 0000, For 30 days, Indication: Cellulitis New Bag 06/22/2024 1:49 PM CDT 1 g 10 0 mL/hr documented in this encounter Additional Health Concerns Infection Onset Date Last Indicated Resolved Time MSSA 06/06/2024 06/12/2024 07/13/2024 9:58 AM CDT documented as of this encounter Care Teams Pipe Organ Builder Relationship Specialty Start Date End Date Thu Bhagat PA-C [address] [place] [phone] PCP - General 11/26/22 documented as of this encounter
--- OUTSIDE RECORDS SUMMARY | 2024-08-21 10:25 | XMS_ITS | Encounter Summary ---
Author Organization [facility] er Address [address] [place] [address] Care Team Providers Care Tube Mill Operator Name Role Phone Thu Bhagat PA-C Primary Care Provider [phone] Reason for Visit * Consultation (Routine) - Canceled Specialty Diagnoses / Procedures Referred By Conteufemia t Referred To Contact Infusion Therapy Diagnoses Infection of right foot Pina Méndez MD [address] [place] [phone] [facility] Infusion Therapy [address] [place] [address] Referral ID Status Reason Start Date Expiration Date Visits Requested Visits Authorized [id number] Canceled Specialty Services Required 06/17/2024 10/16/2024 99 99 Encounter Details Date Type Department Care Team ([facility] st Contact Info) Description 06/21/2024 2:00 PM CDT Infusion [facility] Infusion Therapy [address] [place] [address] 55904 Infection of right foot (Primary Dx) [...] from your doctor or pharmacy? Never 06/06/2024 [facility] Utilities Answer Date Recorded In the past [...] often do you attend chur ch or latter-day services? More than 4 times [...] Recorded Patient Health Questionnaire-2 Score 0 06/06/2024 [facility] [place] of Occupat ional [facility] - Occupational Stress Questionnaire Answer [...] any time in the past 12 m [facility], were you homeless or living [...] Sign Reading Time Taken Comments Blood Pressure 123/84 06/21/2024 1:38 PM CDT Pulse 85 06/21/2024 1:38 PM CDT Temperature 36.6 ??C (97.8 ??F) 06/21/2024 1:38 PM CD T Respiratory Rate 16 06/21/2024 1:38 PM CDT Oxygen Saturation 94% 06/21/2024 1:38 PM CDT Inhaled Oxygen Concentration - - Weight - - Height - - Body Mass Index - - documented in this encounter Plan of Treatment Upcoming Encounters Date Type Department Care Team (Late st Contact Info) Description 08/24/2024 8:30 AM INCLUSION INTERNSHIP Office Visit [facility] Wound Care [address] [place] [address] 38435 08/24/2024 11:30 AM INCLUSION INTERNSHIP Office Visit Podiatry [address] [place] [phone] Angel Coombs, DPM [address] [place] [phone] 08/25/2024 8:30 AM INCLUSION INTERNSHIP Office Visit [facility] Wound Care [address] [place] [address] 34516 08/26/2024 8:30 AM INCLUSION INTERNSHIP Office Visit [facility] Wound Care [address] [place] [address] 93671 08/27/2024 8:30 AM INCLUSION INTERNSHIP Office Visit [facility] Wound Care [address] [place] [address] 43129 08/27/2024 11:00 AM INCLUSION INTERNSHIP Office Visit [facility] Wound Care [address] [place] [address] [place] [address] [place] [phone] 08/28/2024 8:30 AM INCLUSION INTERNSHIP Office Visit [facility] [address] [place] [address] 33964 08/31/2024 8:30 AM INCLUSION INTERNSHIP Office Visit [facility] [address] [place] [address] 525[address] 09/01/2024 8:30 AM INCLUSION INTERNSHIP Office Visit [facility] [address] [place] [address] 87668 09/02/2024 8:30 AM INCLUSION INTERNSHIP Office Visit [facility] [address] [place] [address] 80328 09/03/2024 8:30 AM INCLUSION INTERNSHIP Office Visit [facility] [address] [place] [address] 97354 09/03/2024 11:00 AM INCLUSION INTERNSHIP Office Visit [facility] [address] [place] [address] 09767 Vilma Neves MD [address] [place] [phone] 09/03/2024 11:00 AM INCLUSION INTERNSHIP Office Visit [facility] Infectious Disease [address] [place] [address] 40595 Amairani Sigala MD [address] [place] [address] [phone] 09/04/2024 8:30 AM INCLUSION INTERNSHIP Office Visit [facility] [address] [place] [address] 13913 09/07/2024 8:30 AM INCLUSION INTERNSHIP Office Visit [facility] [address] [place] [address] 86385 09/08/2024 8:30 AM INCLUSION INTERNSHIP Office Visit [facility] [address] [place] [address] 93150 09/09/2024 8:30 AM INCLUSION INTERNSHIP Office Visit [facility] [address] [place] [address] 72552 09/10/2024 8:30 AM INCLUSION INTERNSHIP Office Visit [facility] [address] [place] [address] 24339 09/10/2024 11:20 AM INCLUSION INTERNSHIP Office Visit [facility] Wound Care [address] [place] [address] [place] [address] [place] [address] [phone] 09/11/2024 8:30 AM INCLUSION INTERNSHIP Office Visit [facility] Wound Care [address] [place] [address] 10549 09/14/2024 8:30 AM INCLUSION INTERNSHIP Office Visit [facility] Wound Care [address] [place] [address] 90067 09/15/2024 8:30 AM INCLUSION INTERNSHIP Office Visit [facility] Wound Care [address] [place] [address] 76595 documented as of this encounter Visit Diagnoses Diagnosis Infection of right foot- Primary documented in this encounter Administered Medications Inactive Administered Medications - up to 3 most recent administrations Medication Order MAR Action Action Date Dose Rate Site ertapenem (INVanz) 1 g in sodium chloride 0.9 % 50 mL [id number] Plus 1 g, Intravenous, at 100 mL/hr, Administer over 30 Minutes, Every 24 hours, First dose on 06/21/24 at 1400, For 30 days, Indication: Cellulitis New Bag 06/21/2024 1:39 PM CDT 1 g 10 0 mL/hr documented in this encounter Additional Health Concerns Infection Onset Date Last Indicated Resolved Time MSSA 06/06/2024 06/12/2024 07/13/2024 9:58 AM CDT documented as of this encounter Care Teams Tube Mill Operator Relationship Specialty Start Date End Date Thu Bhagat PA-C 1 [phone] PCP - General 11/26/22 documented as of this encounter
--- OUTSIDE RECORDS SUMMARY | 2024-08-21 10:25 | XMS_ITS | Encounter Summary ---
Author Organization [facility] er Address [address] [place] [id number] Care Team Providers Care [employer] Manager Name Role Phone Thu Bhagat PA-C Primary Care Provider [phone] Encounter Details Date Type Department Care Team (Late st Contact Info) Description 06/23/2024 Clinical Support [facility] [address] [place] [phone] Julieta Lilly, PharmD [address] [place] [phone] Social History Tobacco Use Types Packs/Day Years [...] 06/06/2024 [facility] Utilities Answer Date Recorded In the past 12 months has e [employer], gas, oil, or water [employer] threatened to shut off services in your [...] How often do you attend chur or buddhist services? More than 4 times per year [...] Patient Health Questionnaire-2 Score 0 06/06/2024 [facility] Occupat ional [facility] - Occupational Stress [...] time in the past 12 m [facility], were you homeless or living [...] as of this encounter Progress Notes * Julieta Lilly, PharmD - 06/23/2024 4:35 PM CDT Images from the original note were not included. OPAT Team Note This patient has been enrolled in outpatient antimicrobial therapy (OPAT) and is being managed by the OPAT team. Patient: Francisco Javier Fung OPAT Enrollment Status: Clinic Infusion OPAT Labs Due: Weekly CBC and CMP OPAT End Date: 07/16/24 Micro Results: Microbiology Results No results found for the last 168 hours. Lab Results: Results Collected Updated Procedure Result Status 06/23/2024 1253 06/23/2024 1332 Comprehensive metabolic panel [[id number]] (Abnormal) Blood, Venous Final result Component Value [...] 06/23/2024 1253 06/23/2024 1302 CBC auto differential [[id number]] (Abnormal) Blood, Venous Final result Component Value [...] 06/17/2024 0550 06/17/2024 0635 Basic metabolic panel [[id number]] (Abnormal) Blood, Venous Final result Component Value Units Sodium 136 mEq/L Potassium 4.1 mEq/L Chloride 101 mEq/L CO2 32 mmol/L Creatinine 1.14 mg/dL BUN 22 mg/dL Glucose 135 mg/dL Calcium, Total,S 8.9 mg/dL Anion Gap 3 Fasting? Yes 06/17/2024 0550 06/17/2024 0618 CBC ([facility]) [[id number]] (Abnormal) Blood, Venous Final result Component Value Units WBC 10.5 K/uL RBC 5.18 M/uL Hemoglobin 15.2 g/dL Hematocrit 47.8 % Platelets 376 K/uL MCV 92.3 fL MCH 29.3 pg MCHC 31.8 g/dL RDW 14.6 % NRBC %, Automated 0 % NRBC Absolute, Autmated 0.00 K/uL 06/16/2024 0608 06/16/2024 0826 Basic metabolic panel [[id number]] (Abnormal) Blood, Venous Final result Component Value Units Sodium 136 mEq/L Potassium 4.3 mEq/L Chloride 100 mEq/L CO2 30 mmol/L Creatinine 1.13 mg/dL BUN 20 mg/dL Glucose 116 mg/dL Calcium, Total,S 9.1 mg/dL Anion Gap 6 Fasting? Unknown 06/16/2024 0608 06/16/2024 0652 CBC ([facility]) [[id number]] Blood, Venous Final result Component Value Units WBC 10.2 K/uL RBC 5.36 M/uL Hemoglobin 15.9 g/dL Hematocrit 48.9 % Platelets 369 K/uL MCV 91.2 fL MCH 29.7 pg MCHC 32.5 g/dL RDW 14.7 % NRBC %, Automated 0 % NRBC Absolute, Autmated 0.00 K/uL 06/15/2024 0600 06/15/2024 0617 Basic metabolic panel [[id number]] (Abnormal) Blood, Venous Final result Component Value Units Sodium 136 mEq/L Potassium 4.0 mEq/L Chloride 100 mEq/L CO2 30 mmol/L Creatinine 1.05 mg/dL BUN 17 mg/dL Glucose 117 mg/dL Calcium, Total,S 8.8 mg/dL Anion Gap 6 Fasting? Yes 06/15/2024 0600 06/15/2024 0606 CBC ([facility] [employer]) [[id number]] (Abnormal) Blood, Venous Final result Component Value Units WBC 11.5 K/uL RBC 5.04 M/uL Hemoglobin 14.9 g/dL Hematocrit 46.2 % Platelets 358 K/uL MCV 91.7 fL MCH 29.6 pg MCHC 32.3 g/dL RDW 14.9 % NRBC %, Automated 0 % NRBC Absolute, Autmated 0.00 K/uL 06/14/2024 0545 06/14/2024 0628 Basic metabolic panel [[id number]] (Abnormal) Blood, Venous Final result Component Value Units Sodium 138 mEq/L Potassium 4.2 mEq/L Chloride 101 mEq/L CO2 31 mmol/L Creatinine 1.03 mg/dL BUN 20 mg/dL Glucose 142 mg/dL Calcium, Total,S 8.9 mg/dL Anion Gap 6 Fasting? Yes 06/14/2024 0545 06/14/2024 0621 CBC ([facility]) [[id number]] (Abnormal) Blood, Venous Final result Component Value Units WBC 12.1 K/uL RBC 5.04 M/uL Hemoglobin 15.1 g/dL Hematocrit 47.3 % Platelets 396 K/uL MCV 93.8 fL MCH 30.0 pg MCHC 31.9 g/dL RDW 15.2 % NRBC %, Automated 0 % NRBC Absolute, Autmated 0.00 K/uL 06/13/2024 0500 06/13/2024 0548 Basic metabolic panel [[id number]] (Abnormal) Blood, Venous Final result Component Value Units Sodium 135 mEq/L Potassium 4.0 mEq/L Chloride 102 mEq/L CO2 29 mmol/L Creatinine 1.21 mg/dL BUN 26 mg/dL Glucose 188 mg/dL Calcium, Total,S 8.7 mg/dL Anion Gap 4 Fasting? Yes 06/13/2024 0500 06/13/2024 0533 CBC ([facility]) [[id number]] (Abnormal) Blood, Venous Final result Component Value Units WBC 16.2 K/uL RBC 5.00 M/uL Hemoglobin 14.8 g/dL Hematocrit 46.7 % Platelets 382 K/uL MCV 93.4 fL MCH 29.6 pg MCHC 31.7 g/dL RDW 15.2 % NRBC %, Automated 0 % NRBC Absolute, Autmated 0.00 K/uL 06/12/2024 0540 06/12/2024 0615 Basic metabolic panel [[id number]] (Abnormal) Blood, Venous Final result Component Value Units Sodium 137 mEq/L Potassium 4.2 mEq/L Chloride 103 mEq/L CO2 29 mmol/L Creatinine 1.13 mg/dL BUN 25 mg/dL Glucose 172 mg/dL Calcium, Total,S 9.2 mg/dL Anion Gap 5 Fasting? Yes 06/12/2024 0540 06/12/2024 0559 CBC ([facility] [employer]) [[id number]] (Abnormal) Blood, Venous Final result Component Value Units WBC 14.4 K/uL RBC 5.22 M/uL Hemoglobin 15.5 g/dL Hematocrit 48.2 % Platelets 396 K/uL MCV 92.3 fL MCH 29.7 pg MCHC 32.2 g/dL RDW 15.1 % NRBC %, Automated 0 % NRBC Absolute, Autmated 0.00 K/uL 06/11/2024 0610 06/11/2024 0710 Basic metabolic panel [[id number]] (Abnormal) Blood, Venous Final result Component Value Units Sodium 138 mEq/L Potassium 4.2 mEq/L Chloride 104 mEq/L CO2 25 mmol/L Creatinine 1.20 mg/dL BUN 24 mg/dL Glucose 173 mg/dL Calcium, Total,S 9.5 mg/dL Anion Gap 9 Fasting? Yes 06/11/2024 0610 06/11/2024 0653 CBC ([facility]) [[id number]] (Abnormal) Blood, Venous Final result Component Value Units WBC 14.5 K/uL RBC 5.09 M/uL Hemoglobin 15.3 g/dL Hematocrit 46.8 % Platelets 389 K/uL MCV 91.9 fL MCH 30.1 pg MCHC 32.7 g/dL RDW 15.3 % NRBC %, Automated 0 % NRBC Absolute, Autmated 0.00 K/uL 06/10/2024 0554 06/10/2024 0613 Basic metabolic panel [[id number]] (Abnormal) Blood, Venous Final result Component Value Units Sodium 138 mEq/L Potassium 4.2 mEq/L Chloride 107 mEq/L CO2 24 mmol/L Creatinine 1.23 mg/dL BUN 24 mg/dL Glucose 139 mg/dL Calcium, Total,S 9.3 mg/dL Anion Gap 7 Fasting? Yes 06/10/2024 0554 06/10/2024 0607 CBC ([facility]) [[id number]] (Abnormal) Blood, Venous Final result Component Value Units WBC 15.2 K/uL RBC 5.00 M/uL Hemoglobin 15.2 g/dL Hematocrit 47.1 % Platelets 347 K/uL MCV 94.2 fL MCH 30.4 pg MCHC 32.3 g/dL RDW 15.6 % NRBC %, Automated 0 % NRBC Absolute, Autmated 0.00 K/uL 06/09/2024 1138 06/09/2024 1414 Vancomycin [[id number]] Blood, Venous Final result Component Value Units Vancomycin 22.9 mcg/mL Last Dose Date 06/09/2024 Last Dose Time 1010 AM 06/09/2024 0605 06/09/2024 0649 Basic metabolic panel [[id number]] (Abnormal) Blood, Venous Final result Component Value Units Sodium 137 mEq/L Potassium 4.2 mEq/L Chloride 108 mEq/L CO2 24 mmol/L Creatinine 1.21 mg/dL BUN 29 mg/dL Glucose 113 mg/dL Calcium, Total,S 9.2 mg/dL Anion Gap 5 Fasting? Yes 06/09/2024 0605 06/09/2024 0637 CBC ([facility]) [[id number]] (Abnormal) Blood, Venous Final result Component Value Units WBC 13.8 K/uL RBC 5.05 M/uL Hemoglobin 14.9 g/dL Hematocrit 47.0 % Platelets 334 K/uL MCV 93.1 fL MCH 29.5 pg MCHC 31.7 g/dL RDW 15.4 % NRBC %, Automated 0 % NRBC Absolute, Autmated 0.00 K/uL 06/08/2024 0605 06/08/2024 0707 Basic metabolic panel [[id number]] (Abnormal) Blood, Venous Final result Component Value Units Sodium 138 mEq/L Potassium 3.9 mEq/L Chloride 109 mEq/L CO2 21 mmol/L Creatinine 1.33 mg/dL BUN 36 mg/dL Glucose 84 mg/dL Calcium, Total,S 8.9 mg/dL Anion Gap 8 Fasting? Yes 06/08/2024 0605 06/08/2024 0658 CBC ([facility]) [[id number]] (Abnormal) Blood, Venous Final result Component Value Units WBC 14.2 K/uL RBC 4.80 M/uL Hemoglobin 14.5 g/dL Hematocrit 44.6 % Platelets 298 K/uL MCV 92.9 fL MCH 30.2 pg MCHC 32.5 g/dL RDW 15.1 % NRBC %, Automated 0 % NRBC Absolute, Autmated 0.00 K/uL 06/06/2024 1000 06/08/2024 0229 Hemoglobin A1c [[id number]] (Abnormal) Blood, Venous Final result Component Value Units Hemoglobin A1C 9.0 % A1C 06/07/2024 0513 06/07/2024 0702 Vancomycin [[id number]] Blood, Venous Final result Component Value Units Vancomycin 9.6 mcg/mL Last Dose Date 06/06/2024 Last Dose Time 1040 06/07/2024 0513 06/07/2024 0546 Basic metabolic panel [[id number]] (Abnormal) Blood, Venous Final result Component Value Units Sodium 138 mEq/L Potassium 4.0 mEq/L Chloride 107 mEq/L CO2 22 mmol/L Creatinine 1.81 mg/dL BUN 55 mg/dL Glucose 125 mg/dL Calcium, Total,S 9.1 mg/dL Anion Gap 9 Fasting? Yes 06/07/2024 0513 06/07/2024 0539 CBC ([facility]) [[id number]] (Abnormal) Blood, Venous Final result Component Value Units WBC 16.4 K/uL RBC 4.95 M/uL Hemoglobin 14.8 g/dL Hematocrit 45.4 % Platelets 281 K/uL MCV 91.7 fL MCH 29.9 pg MCHC 32.6 g/dL RDW 15.1 % NRBC %, Automated 0 % NRBC Absolute, Autmated 0.00 K/uL 06/06/2024 1000 06/06/2024 1119 Procalcitonin [[id number]] (Abnormal) Blood, Venous Final result Component Value Units Procalcitonin 1.34 ng/mL 06/06/2024 0955 06/06/2024 1034 Covid-19, Gutierrez ID Now, PCR symptomatic [[id number]] Swab from Nasal Final result Component Value Covid Source Nasal Covid-19, ID Now PCR NEGATIVE 06/06/2024 1000 06/06/2024 1032 C-reactive protein [[id number]] (Abnormal) Blood, Venous Final result Component Value Units CRP >320.0 mg/L 06/06/2024 1000 06/06/2024 1030 CBC auto differential [[id number]] (Abnormal) Blood, Venous Final result Component Value [...] 0.00 K/uL 06/06/2024 1000 06/06/2024 1030 Morphology [[id number]] Final result Component Value Slide Review PERFORMED RBC Morphology NORMAL PLT Morphology ADEQUATE 06/06/2024 1000 06/06/2024 1028 Basic metabolic panel [[id number]] (Abnormal) Blood, Venous Final result Component Value Units Sodium 134 mEq/L Potassium 4.5 mEq/L Chloride 98 mEq/L CO2 24 mmol/L Creatinine 2.61 mg/dL BUN 78 mg/dL Glucose 254 mg/dL Calcium, Total,S 9.6 mg/dL Anion Gap 12 Fasting? Unknown 06/06/2024 1000 06/06/2024 1028 Magnesium [[id number]] (Abnormal) Blood, Venous Final result Component Value Units Magnesium 2.5 mg/dL 06/06/2024 1000 06/06/2024 1020 Lactate, plasma [[id number]] Blood, Venous Final result Component Value Units Lactate 1.3 mmol/L 06/06/2024 1000 06/06/2024 1017 APTT [[id number]] (Abnormal) Blood, Venous Final result Component Value Units aPTT 40 seconds 06/06/2024 1000 06/06/2024 1017 Protime-INR [[id number]] (Abnormal) Blood, Venous Final result Component Value Units Protime 19.0 seconds INR 1.6 06/06/2024 1000 06/06/2024 1014 Blood gas, venous [[id number]] Blood, Venous Final result Component Value Units pH, Jorge 7.37 pCO2, Jorge 44 mm Hg HCO3, Venous 25.4 mmol/L Base Excess/Deficit Venous -0.2 mmol/L Current Indication: Other (Comment) Diabetic foot abscess Overall Recommendation: The patient is currently taking Ertapenem . Per antimicrobial stewardship guidelines, pharmacy recommends Francisco Javier Fung continue with current Therapy. Pharmacy took the following actions: No changes made Additional Recommendations: Continue Ertapenem 1 gm every 24 hours. Lab review: Scr 1.16 mg/dL, CrCL (ideal BW) 69.8 mL/min, LFTs within normal limits (AST 25, ALT 24, Alk phos 66), WBC 8. Labs within normal limits and are stable. Submitted by: Julieta Lilly, Nathaly documented in this encounter Plan of Treatment Upcoming Encounters Date Type Department Care Team (Late st Contact Info) Description 08/24/2024 8:30 AM WIRE STRANDER Office Visit [facility] [address] [place] [address] [phone] 08/24/2024 11:30 AM WIRE STRANDER Office Visit Podiatry [address] [place] [address] [phone] Angel Coombs DPM [address] [place] [phone] 08/25/2024 8:30 AM WIRE STRANDER Office Visit [facility] [address] [place] [address] [phone] 08/26/2024 8:30 AM WIRE STRANDER Office Visit [facility] [address] [place] [address] [phone] 08/27/2024 8:30 AM WIRE STRANDER Office Visit [facility] [address] [place] [address] [phone] 08/27/2024 11:00 AM WIRE STRANDER Office Visit [facility] [address] [place] [address] [phone] Vilma Neves MD [address] [place] [phone] 08/28/2024 8:30 AM WIRE STRANDER Office Visit [facility] [address] [place] [address] [phone] 08/31/2024 8:30 AM WIRE STRANDER Office Visit [facility] [address] [place] [phone] 09/01/2024 8:30 AM WIRE STRANDER Office Visit [facility] [address] [place] [phone] 09/02/2024 8:30 AM WIRE STRANDER Office Visit [facility] [address] [place] [address] [phone] 09/03/2024 8:30 AM WIRE STRANDER Office Visit [facility] [address] [place] [address] [phone] 09/03/2024 11:00 AM WIRE STRANDER Office Visit [facility] [address] [place] [address] [phone] Vilma Neves MD [address] [place] [phone] 09/03/2024 11:00 AM WIRE STRANDER Office Visit [facility] Infectious Disease [address] [place] [address] [phone] Amairani Sigala MD [address] [place] [phone] 09/04/2024 8:30 AM WIRE STRANDER Office Visit [facility] [address] [place] [address] [phone] 09/07/2024 8:30 AM WIRE STRANDER Office Visit [facility] [address] [place] [address] [phone] 09/08/2024 8:30 AM WIRE STRANDER Office Visit [facility] [address] [place] [address] [phone] 09/09/2024 8:30 AM WIRE STRANDER Office Visit [facility] [address] [place] [address] [phone] 09/10/2024 8:30 AM WIRE STRANDER Office Visit [facility] [address] [place] [address] [phone] 09/10/2024 11:20 AM WIRE STRANDER Office Visit [facility] [address] [place] [address] [phone] Vilma Neves MD [address] [place] [phone] 09/11/2024 8:30 AM WIRE STRANDER Office Visit [facility] [address] [place] [phone] 09/14/2024 8:30 AM WIRE STRANDER Office Visit [facility] [address] [place] [phone] 09/15/2024 8:30 AM WIRE STRANDER Office Visit [facility] [address] [place] [address] [phone] documented as of this encounter Visit Diagnoses Not on filedocumented in this encounter Additional Health Concerns Infection Onset Date Last Indicated Resolved Time MSSA 06/06/2024 06/12/2024 07/13/2024 9:58 AM CDT documented as of this encounter Care Teams [employer] Manager Relationship Specialty Start Date End Date Thu Bhagat PA-C [address] [place] [phone] PCP - General 11/26/22 documented as of this encounter
--- OUTSIDE RECORDS SUMMARY | 2024-08-21 10:25 | XMS_ITS | Encounter Summary ---
Author Organization [facility] er Address [address] [place] [address] Care Team Providers Care Licensed Mental Health Professional Name Role Phone Thu Bhagat PA-C Primary Care Provider [phone] Reason for Visit * Consultation (Routine) - Canceled Specialty Diagnoses / Procedures Referred By Conteufemia t Referred To Contact Infusion Therapy Diagnoses Infection of right foot Pina Méndez MD [address] [place] [phone] [facility] Infusion Therapy [address] [place] [phone] Referral ID Status Reason Start Date Expiration Date Visits Requested Visits Authorized [id number] Canceled Specialty Services Required 06/17/2024 10/16/2024 99 99 Encounter Details Date Type Department Care Team ([facility] st Contact Info) Description 06/20/2024 2:00 PM CDT Infusion [facility] Infusion Therapy [address] [place] [phone] Infection of right foot (Primary Dx) [...] often do you attend chur ch or lutheran services? More than 4 times per year [...] Recorded Patient Health Questionnaire-2 Score 0 06/06/2024 [facility] Occupat ional [facility] - Occupational Stress Questionnaire Answer Date Recorded [...] time in the past 12 m [facility], were you homeless or living in [...] Sign Reading Time Taken Comments Blood Pressure 102/75 06/20/2024 2:00 PM CDT Pulse 80 06/20/2024 2:00 PM CDT Temperature 36.7 ??C (98 ??F) 06/20/2024 2:00 PM CDT Respiratory Rate 16 06/20/2024 2:00 PM CDT Oxygen Saturation 98% 06/20/2024 2:00 PM CDT Inhaled Oxygen Concentration - - Weight - - Height - - Body Mass Index - - documented in this encounter Plan of Treatment Upcoming Encounters Date Type Department Care Team (Late st Contact Info) Description 08/24/2024 8:30 AM TRAINING AND DEVELOPMENT DIRECTOR Office Visit [facility] Wound Care [address] [place] [address] [phone] 08/24/2024 11:30 AM TRAINING AND DEVELOPMENT DIRECTOR Office Visit Podiatry [address] [place] [phone] Angel Coombs, DPM [address] [place] [address] [phone] 08/25/2024 8:30 AM TRAINING AND DEVELOPMENT DIRECTOR Office Visit [facility] Wound Care [address] [place] [address] [phone] 08/26/2024 8:30 AM TRAINING AND DEVELOPMENT DIRECTOR Office Visit [facility] Wound Care [address] [place] [phone] 08/27/2024 8:30 AM TRAINING AND DEVELOPMENT DIRECTOR Office Visit [facility] Wound Care [address] [place] [phone] 08/27/2024 11:00 AM TRAINING AND DEVELOPMENT DIRECTOR Office Visit [facility] Wound Care [address] [place] [phone] Vilma Neves MD [address] [place] [phone] 08/28/2024 8:30 AM TRAINING AND DEVELOPMENT DIRECTOR Office Visit [facility] Wound Care [address] [place] [phone] 08/31/2024 8:30 AM TRAINING AND DEVELOPMENT DIRECTOR Office Visit [facility] W[facility] Care [address] [place] [phone] 09/01/2024 8:30 AM TRAINING AND DEVELOPMENT DIRECTOR Office Visit [facility] Wound Care [address] [place] [phone] 09/02/2024 8:30 AM TRAINING AND DEVELOPMENT DIRECTOR Office Visit [facility] Wound Care [address] [place] [address] [phone] 09/03/2024 8:30 AM TRAINING AND DEVELOPMENT DIRECTOR Office Visit [facility] Wound Care [address] [place] [address] [phone] 09/03/2024 11:00 AM TRAINING AND DEVELOPMENT DIRECTOR Office Visit [facility] Wound Care [address] [place] [phone] Vilma Neves MD [address] [place] [phone] 09/03/2024 11:00 AM TRAINING AND DEVELOPMENT DIRECTOR Office Visit [facility] Infectious Disease [address] [place] [address] [phone] Amairani Sigala MD [address] [place] [address] [phone] 09/04/2024 8:30 AM TRAINING AND DEVELOPMENT DIRECTOR Office Visit [facility] Wound Care [address] [place] [address] [phone] 09/07/2024 8:30 AM TRAINING AND DEVELOPMENT DIRECTOR Office Visit [facility] Wound Care [address] [place] [address] [phone] 09/08/2024 8:30 AM TRAINING AND DEVELOPMENT DIRECTOR Office Visit [facility] Wound Care [address] [place] [address] [phone] 09/09/2024 8:30 AM TRAINING AND DEVELOPMENT DIRECTOR Office Visit [facility] Wound Care [address] [place] [address] [phone] 09/10/2024 8:30 AM TRAINING AND DEVELOPMENT DIRECTOR Office Visit [facility] Wound Care [address] [place] [address] [phone] 09/10/2024 11:20 AM TRAINING AND DEVELOPMENT DIRECTOR Office Visit [facility] Wound Care [address] [place] [phone] [place] [address] [place] [phone] 09/11/2024 8:30 AM TRAINING AND DEVELOPMENT DIRECTOR Office Visit [facility] Wound Care [address] [place] [address] [phone] 09/14/2024 8:30 AM TRAINING AND DEVELOPMENT DIRECTOR Office Visit [facility] Wound Care [address] [place] [address] [phone] 09/15/2024 8:30 AM TRAINING AND DEVELOPMENT DIRECTOR Office Visit [facility] Wound Care [address] [place] [address] [phone] documented as of this encounter Visit Diagnoses Diagnosis Infection of right foot- Primary documented in this encounter Administered Medications Inactive Administered Medications - up to 3 most recent administrations Medication Order MAR Action Action Date Dose Rate Site ertapenem (INVanz) 1 g in sodium chloride 0.9 % 50 mL [id number] Plus 1 g, Intravenous, at 100 mL/hr, Administer over 30 Minutes, Every 24 hours, First dose on 06/20/24 at 1430, For 30 days, Indication: Cellulitis New Bag 06/20/2024 2:09 PM CDT 1 g 10 0 mL/hr documented in this encounter Additional Health Concerns Infection Onset Date Last Indicated Resolved Time MSSA 06/06/2024 06/12/2024 07/13/2024 9:58 AM CDT documented as of this encounter Care Teams Licensed Mental Health Professional Relationship Specialty Start Date End Date Thu Bhagat PA-C [address] [place] [phone] PCP - General 11/26/22 documented as of this encounter
--- OUTSIDE RECORDS SUMMARY | 2024-08-21 10:25 | XMS_ITS | Encounter Summary ---
Author Organization [facility] er Address [address] [place] [address] Care Team Providers Care Head Of Precision Targeting Name Role Phone Thu Bhagat PA-C Primary Care Provider [phone] Reason for Visit * Reason Onset Date Comments TCM Follow-up 06/18/2024 Encounter Details Date Type Department Care Team (Late st Contact Info) Description 06/18/2024 Telephone SE Care Coordination [address] [place], [place] [address] Thu Bhagat PA-C [address] [place] [phone] TCM Follow-up Social History Tobacco Use Types Packs/Day Years [...] doctor or pharmacy? Never 06/06/2024 [facility] Utilities Answer Date Recorded In [...] week 06/06/2024 How often do you attend [facility] or buddhism services? More than 4 [...] Recorded Patient Health Questionnaire-2 Score 0 06/06/2024 [facility] [place] [facility] Occupat ional [facility] - Occupational Stress [...] any time in the past 12 m [facility], were you homeless or living in a care home (including now)? No 06/06/2024 Interpersonal Safety Questionnaire Answer Date Recorded How often does anyone, tyrell kerns family and friends, physically hurt you? Never 06/06/2024 How often does anyone, tyrell kerns family and friends, insult or talk down to you? Never 06/06/2024 How often does anyone, inclu luis f family and friends, threaten you with harm? Never 06/06/2024 How often does anyone, inclu ding family and friends, threaten you with harm? Never 06/06/2024 Sex and Gender Information Value Date Recorded Sex Assigned at Not on file Gender Identity Not on file Sexual Orientation Not on file documented as of this encounter Miscellaneous Notes * Telephone Encounter - Klarissa Cash RN - 06/18/2024 8:56 AM CDT Outside PCP ([facility]), does not qualify for TCM. documented in this encounter Plan of Treatment Upcoming Encounters Date Type Department Care Team (Late st Contact Info) Description 08/24/2024 8:30 AM GENERAL PRODUCTION WORKER Office Visit [facility] [address] [place] [address] 08/24/2024 11:30 AM GENERAL PRODUCTION WORKER Office Visit [facility] [address], [place] [address] Angel Coombs DPHang [address] [place] [phone] 08/25/2024 8:30 AM GENERAL PRODUCTION WORKER Office Visit [facility] W[facility] Care [address] [place] [address] 08/26/2024 8:30 AM GENERAL PRODUCTION WORKER Office Visit [facility] W[facility] [address] [place] [address] 08/27/2024 8:30 AM GENERAL PRODUCTION WORKER Office Visit [facility] [address] [place] [phone] 08/27/2024 11:00 AM GENERAL PRODUCTION WORKER Office Visit [facility] [address] [place] [address] [place] [address] [place] [phone] 08/28/2024 8:30 AM GENERAL PRODUCTION WORKER Office Visit [facility] [address] [place] [address] 08/31/2024 8:30 AM GENERAL PRODUCTION WORKER Office Visit [facility] [address] [place] [address] 09/01/2024 8:30 AM GENERAL PRODUCTION WORKER Office Visit [facility] [address] [place] [address] 09/02/2024 8:30 AM GENERAL PRODUCTION WORKER Office Visit [facility] W[facility] [address] [place] [address] 09/03/2024 8:30 AM GENERAL PRODUCTION WORKER [facility] [address] [place] [phone] 09/03/2024 11:00 AM GENERAL PRODUCTION WORKER Office Visit [facility] W[facility] [address] [place] [phone] Vilma Neves MD [address] [place] [phone] 09/03/2024 11:00 AM GENERAL PRODUCTION WORKER [facility] Infectious Disease [address] [place] [phone] Amairani Sigala MD [address] [place] [phone] 09/04/2024 8:30 AM GENERAL PRODUCTION WORKER Office Visit [facility] [address] [place] [phone] 09/07/2024 8:30 AM GENERAL PRODUCTION WORKER Office Visit [facility] [address] [place] [phone] 09/08/2024 8:30 AM GENERAL PRODUCTION WORKER Office Visit [facility] [address] [place] [phone] 09/09/2024 8:30 AM GENERAL PRODUCTION WORKER Office Visit [facility] [address] [place] [phone] 09/10/2024 8:30 AM GENERAL PRODUCTION WORKER Office Visit [facility] [address] [place] [address] [phone] 09/10/2024 11:20 AM GENERAL PRODUCTION WORKER Office Visit [facility] [address] [place] [address] Vilma Neves MD [address] [place] [phone] 09/11/2024 8:30 AM GENERAL PRODUCTION WORKER Office Visit [facility] [address] [place] [address] 09/14/2024 8:30 AM GENERAL PRODUCTION WORKER [facility] [address] [place] [phone] 09/15/2024 8:30 AM GENERAL PRODUCTION WORKER [facility] Visit [facility] [address] [place] [phone] documented as of this encounter Visit Diagnoses Not on filedocumented in this encounter Additional Health Concerns Infection Onset Date Last Indicated Resolved Time MSSA 06/06/2024 06/12/2024 07/13/2024 9:58 AM CDT documented as of this encounter Care Teams Head Of Precision Targeting Relationship Specialty Start Date End Date Thu Bhagat PA-C [address] [place] [phone] PCP - General 11/26/22 documented as of this encounter
--- OUTSIDE RECORDS SUMMARY | 2024-08-21 10:25 | XMS_ITS | Encounter Summary ---
Author Organization [facility] er Address [address] [place] [id number] Care Team Providers Care Media Coordinator Name Role Phone Thu Bhagat PA-C Primary Care Provider [phone] Reason for Visit * Reason Comments OP Infusion * Consultation (Routine) - Canceled Specialty Diagnoses / Procedures Referred By Kaley t Referred To Contact Infusion Therapy Diagnoses Infection of right foot Pina Méndez MD [address] [place] [phone] [facility] Infusion Therapy [address] [place] [phone] Referral ID Status Reason Start Date Expiration Date Visits Requested Visits Authorized [id number] Canceled Specialty Services Required 06/17/2024 10/16/2024 99 99 Encounter Details Date Type Department Care Team ([facility] st Contact Info) Description 06/18/2024 2:00 PM CDT Infusion [facility] Infusion Therapy [address] [place] [phone] Infection of right foot (Primary Dx) [...] your doctor or pharmacy? Never 06/06/2024 [facility] Utilities Answer Date Recorded In the [...] often do you attend chur ch or mandaeism services? More than 4 times per year [...] Recorded Patient Health Questionnaire-2 Score 0 06/06/2024 [facility] - Occupational Stress Questionnaire Answer [...] in the past 12 m [facility], were you homeless or living [...] Sign Reading Time Taken Comments Blood Pressure 118/70 06/18/2024 4:00 PM CDT Pulse 90 06/18/2024 4:00 PM CDT Temperature 36.5 ??C (97.7 ??F) 06/18/2024 3:02 PM CD T Respiratory Rate 15 06/18/2024 4:00 PM CDT Oxygen Saturation 98% 06/18/2024 4:00 PM CDT Inhaled Oxygen Concentration - - Weight - - Height - - Body Mass Index - - documented in this encounter Plan of Treatment Upcoming Encounters Date Type Department Care Team (Late st Contact Info) Description 08/24/2024 8:30 AM MACHINE MAINTENANCE REPAIRER Office Visit [facility] W[facility] [address] [place] [phone] 08/24/2024 11:30 AM MACHINE MAINTENANCE REPAIRER Office [facility] [address] [place] [address] Angel [place]bs, D[place] [address] [place] [phone] 08/25/2024 8:30 AM MACHINE MAINTENANCE REPAIRER Office Visit [facility] [address] [place] [phone] 08/26/2024 8:30 AM MACHINE MAINTENANCE REPAIRER Office Visit [facility] [address] [place] [phone] 08/27/2024 8:30 AM MACHINE MAINTENANCE REPAIRER Office Visit [facility] [address] [place] [phone] 08/27/2024 11:00 AM MACHINE MAINTENANCE REPAIRER Office Visit [facility] [address] [place] [phone] Vilma Neves MD [address] [place] [phone] 08/28/2024 8:30 AM MACHINE MAINTENANCE REPAIRER Office [facility] [address] [place] [address] 08/31/2024 8:30 AM MACHINE MAINTENANCE REPAIRER Office Visit [facility] [address] [place] [address] 09/01/2024 8:30 AM MACHINE MAINTENANCE REPAIRER Office Visit [facility] [address] [place] [phone] 09/02/2024 8:30 AM MACHINE MAINTENANCE REPAIRER Office Visit [facility] [address] [place] [address] 09/03/2024 8:30 AM MACHINE MAINTENANCE REPAIRER Office Visit [facility] [address] [place] [phone] 09/03/2024 11:00 AM MACHINE MAINTENANCE REPAIRER Office Visit [facility] [address] [place] [phone] Vilma Neves MD [address] [place] [phone] 09/03/2024 11:00 AM MACHINE MAINTENANCE REPAIRER Office Visit [facility] Infectious Disease [address] [place] [phone] Amairani Sigala MD [address] [place] [phone] 09/04/2024 8:30 AM MACHINE MAINTENANCE REPAIRER Office Visit [facility] [address] [place] [phone] 09/07/2024 8:30 AM MACHINE MAINTENANCE REPAIRER Office Visit [facility] [address] [place] [phone] 09/08/2024 8:30 AM MACHINE MAINTENANCE REPAIRER Office Visit [facility] [address] [place] [address] 09/09/2024 8:30 AM MACHINE MAINTENANCE REPAIRER Office Visit [facility] [address] [place] [phone] 09/10/2024 8:30 AM MACHINE MAINTENANCE REPAIRER Office Visit [facility] [address] [place] [address] [phone] 09/10/2024 11:20 AM MACHINE MAINTENANCE REPAIRER Office Visit [facility] [address] [place] [address] Vilma Neves MD [address] [place] [address] [phone] 09/11/2024 8:30 AM MACHINE MAINTENANCE REPAIRER Office Visit [facility] [address] [place] [phone] 09/14/2024 8:30 AM MACHINE MAINTENANCE REPAIRER Office Visit [facility] [address] [place] [address] [phone] 09/15/2024 8:30 AM MACHINE MAINTENANCE REPAIRER Office Visit [facility] [address] [place] [phone] documented as of this encounter Visit Diagnoses Diagnosis Infection of right foot- Primary documented in this encounter Administered Medications Inactive Administered Medications - up to 3 most recent administrations Medication Order MAR Action Action Date Dose Rate Site ertapenem (INVanz) 1 g in sodium chloride 0.9 % 50 mL [id number] Plus 1 g, Intravenous, at 100 mL/hr, Administer over 30 Minutes, Every 24 hours, First dose on Fatou 06/18/24 at 1530, For 30 days, Indication: Cellulitis New Bag 06/18/2024 3:21 PM CDT 1 g 10 0 mL/hr documented in this encounter Additional Health Concerns Infection Onset Date Last Indicated Resolved Time MSSA 06/06/2024 06/12/2024 07/13/2024 9:58 AM CDT documented as of this encounter Care Teams Media Coordinator Relationship Specialty Start Date End Date Thu Bhagat PA-C [address] [place] [phone] PCP - General 11/26/22 documented as of this encounter
--- OUTSIDE RECORDS SUMMARY | 2024-08-21 10:25 | XMS_ITS | Encounter Summary ---
Author Organization [facility] er Address [address] [place] [address] Care Team Providers Care Window Dresser Name Role Phone Thu Bhagat PA-C Primary Care Provider [phone] Encounter Details Date Type Department Care Team ([facility] st Contact Info) Description 06/19/2024 Telephone [facility] Hospital Instructor Psychiatric Aide [address] [place] [address] Karley Bonner, [facility] [address] [place] [phone] Social History Tobacco Use Types Packs/Day [...] from your doctor or pharmacy? Never 06/06/2024 [facility] Utilities Answer Date Recorded In [...] How often do you attend chur or hoahaoism services? More than 4 times per year 06/06/2024 Do you belong to any clubs o r organizations such as yarsanism groups, unions, fraternal or athletic groups, or [...] Health Questionnaire-2 Score 0 06/06/2024 [facility] [place] of Occupat ional Health - Occupational Stress [...] Telephone Encounter - Valeria Tobar RN - 07/16/2024 3:48 PM CDT Nursing orders pended for review and signature. Thank you! * Telephone Encounter - Karley Bonner LSW - 07/16/2024 11:40 AM CDT Nini calls back stating [facility] will be starting tomorrow for pt. Pt is aware. Nini will be on vacation next week and Julieta will be covering phone: [phone]. [facility] contact information is: phone: [phone] fax: [phone]. Addressed and answered all questions/concerns. No further [facility] needed at this time. * Telephone Encounter - Karley Bonner LSW - 07/16/2024 11:24 AM CDT This inspector automatic typewriter left a message for Nini requesting an update on home health services. [facility] SS to continue to follow. * Telephone Encounter - Karley Bonner LSW - 07/10/2024 4:47 PM CDT This inspector automatic typewriter spoke with pt and his girlfriend following wound clinic appointment due to transportation options as pt will be starting HBO services. Discussed [facility] transportation options and utilizing family and friends. Transportation was provided. Nini with the [facility] was updated and is looking for home health services twice a week. Nini will updated this inspector automatic typewriter once an agency is found. [facility] SS to continue to assist. * Telephone Encounter - Karley Bonner LSW - 07/09/2024 10:13 AM CDT This inspector automatic typewriter spoke with Nini from the [facility] who states HBO has been approved. Nini was wanting clarification that home health was still needed for chcf. Per wound clinic nursing pt will need home health for nursing while he receives HBP services. Nini is aware and will work on obtaining orders and finding an agency. [facility] SS to continue to assist. * Telephone Encounter - Karley Bonner LSW - 07/07/2024 4:26 PM CDT Received a message from Nini. This inspector automatic typewriter left a message requesting a call back. * Telephone Encounter - Karley Bonner LSW - 07/06/2024 4:29 PM CDT Message left for both Jennifer and Nini with the VA requesting status updates for home health services and HBO. [facility] SS to continue to assist. * Telephone Encounter - Karley Bonner LSW - 06/29/2024 3:27 PM CDT HBO orders faxed to the VA. Message left for Jennifer with the VA regarding if wound clinic can place the wound vac on pt at the next appt. [facility] SS to continue to assist. * Telephone Encounter - Karley Bonner LSW - 06/29/2024 10:23 AM CDT This inspector automatic typewriter spoke with Jennifer at the [facility]. Jennifer to fax a request form for the HBO to this inspector automatic typewriter. Infusion services are approved for pt to come to [facility] Infusion or home infusions. If pt should switch backto coming to [facility] for infusion this inspector automatic typewriter will need to update the VA. [facility] SS to assist with paperwork needed for HBO approval. * Telephone Encounter - Karley Bonner LSW - 06/26/2024 10:31 AM CDT Message left with [place] at the [place] for [place] auth., requested a call back. * Telephone Encounter - Karley Bonner LSW - 06/25/2024 1:25 PM CDT Wound orders for home health services have been faxed to [place] at the [place]. Per the [place], the wound vac has been approved and should be delivered to pt soon. Wound care informed this inspector automatic typewriter pt may be needing HBO services. This inspector automatic typewriter to reach out to the VA for auth. * Telephone Encounter - Karley Bonner LSW - 06/24/2024 3:27 PM CDT [facility] nurse completed teach with pt and his significant other. VA provider was able to get auth and will fax to [facility]. [facility] to plan to start home infusion on 06/26/24 and pt will continue to come here for labs and site care. [facility] SS to continue to assist with home wound care once wound vac is authorized and have orders. * Telephone Encounter - Karley Bonner LSW - 06/24/2024 11:09 AM CDT Nini with the [facility] received request for home infusions. Nini is working with VA provider on orders and has contact information for [facility]. [facility] to complete teach today during pt's infusion appointment. [facility] team aware. Attempted to inform pt however, mailbox is full. Will talk with ptduring appointment. * Telephone Encounter - Karley Bonner LSW - 06/23/2024 4:04 PM CDT Home Infusion referral form faxed to Nini with the [place]. Referral was also sent to [facility] who will await to start services until approved by the [place]. [facility] SS to continue toassist. * Telephone Encounter - Karley Bonner LSW - 06/19/2024 4:10 PM CDT Received referral re: This 69 y/o male recently released from hospital following toe and partial metatarsal amputation is going to need assistance with transport as he will need to come to hospital several days a week for IV antibiotic infusions and for dressing changes, follow up. His girlfriend works and can't drive him all the time and isn't interested in changing his bandages at home, so willneed wound nursing visits to home 2 x week for dressing changes. We can complete a dressing change a week at wound clinic. Please contact patient / girlfriend to assist with this which will need to start next week. This inspector automatic typewriter spoke with pt and his significant other following the infusion appointment. Pt is now feeling like he would like to do home infusions. Infusion staff was able to explain the infusion process as either pt or his girlfriend will need to administer the medication. Pt and sig. other would feel comfortable doing this. Pt is also open to home health for wound care. [facility] Pt and girlfriend are aware this can take a few weeks to process and will continue to come in for appointments. This inspector automatic typewriter spoke with Janice (phone: [phone]) at the [place] who provided with forms to be completed for home infusions. As for home health re: wound care, will need to await for the wound vac to be authorized and present before they areable to get orders and find an agency for home health. [facility] SS to continue to follow pt. documented in this encounter Plan of Treatment Upcoming Encounters Date Type Department Care Team (Late st Contact Info) Description 08/24/2024 8:30 AM CODING ADVISOR Office Visit [facility] Wound Care [address] [place] [address] 08/24/2024 11:30 AM CODING ADVISOR Office Visit [facility] [address] [place] [address] Angel Coombs, DPM [address] [place] [phone] 08/25/2024 8:30 AM CODING ADVISOR Office Visit [facility] Wound Care [address] [place] [address] 08/26/2024 8:30 AM CODING ADVISOR Office Visit [facility] Wound Care [address] [place] [address] 08/27/2024 8:30 AM CODING ADVISOR Office Visit [facility] Wound Care [address] [place] [address] 08/27/2024 11:00 AM CODING ADVISOR Office Visit [facility] Wound Care [address] [place] [address] Vilma Neves MD [address] [place] [phone] 08/28/2024 8:30 AM CODING ADVISOR Office Visit [facility] Wound Care [address] [place] [address] 08/31/2024 8:30 AM CODING ADVISOR Office Visit [facility] Wound Care [address] [place] [address] 09/01/2024 8:30 AM CODING ADVISOR Office Visit [facility] Wound Care [address] [place] [address] 09/02/2024 8:30 AM CODING ADVISOR [facility] [address] [place] [address] 09/03/2024 8:30 AM CODING ADVISOR Office Visit [facility] Wound Care [address] [place] [address] 09/03/2024 11:00 AM CODING ADVISOR Office Visit [facility] Wound Care [address] [place] [phone] Vilma Neves MD [address] [place] [phone] 09/03/2024 11:00 AM CODING ADVISOR Office Visit [facility] Infectious Disease [address] [place] [address] Amairani Sigala MD [address] [place] [phone] 09/04/2024 8:30 AM CODING ADVISOR Office Visit [facility] Wound Care [address] [place] [phone] 09/07/2024 8:30 AM CODING ADVISOR Office Visit [facility] Wound Care [address] [place] [phone] 09/08/2024 8:30 AM CODING ADVISOR Office Visit [facility] Wound Care [address] [place] [phone] 09/09/2024 8:30 AM CODING ADVISOR Office Visit [facility] Wound Care [address] [place] [phone] 09/10/2024 8:30 AM CODING ADVISOR Office Visit [facility] Wound Care [address] [place] [phone] 09/10/2024 11:20 AM CODING ADVISOR Office Visit [facility] Wound Care [address] [place] [phone] Vilma Neves MD [address] [place] [phone] 09/11/2024 8:30 AM CODING ADVISOR Office Visit [facility] Wound Care [address] [place] [phone] 09/14/2024 8:30 AM CODING ADVISOR Office Visit [facility] Wound Care [address] [place] [phone] 09/15/2024 8:30 AM CODING ADVISOR Office Visit [facility] Wound Care [address] [place] [address] documented as of this encounter Visit Diagnoses Not on filedocumented in this encounter Additional Health Concerns Infection Onset Date Last Indicated Resolved Time MSSA 06/06/2024 06/12/2024 07/13/2024 9:58 AM CDT documented as of this encounter Care Teams Window Dresser Relationship Specialty Start Date End Date Thu Bhagat PA-C [address] [place] [phone] PCP - General 11/26/22 documented as of this encounter
--- OUTSIDE RECORDS SUMMARY | 2024-08-21 10:25 | XMS_ITS | Encounter Summary ---
Author Organization [facility] er Address [address] [place] [id number] Care Team Providers Care Outbound Telemarketer Name Role Phone Thu Bhagat PA-C Primary Care Provider [phone] Reason for Visit * Reason Comments OP Infusion * Consultation (Routine) - Authorized Specialty Diagnoses / Procedures Referred By Conteufemia t Referred To Contact Infusion Therapy Diagnoses Infection of right foot Pina Méndez MD [address] [place] [phone] [facility] Infusion Therapy [address] [place] [id number] Referral ID Status Reason Start Date Expiration Date Visits Requested Visits Authorized [id number] Authorized Specialty Services Required 06/17/2024 12/15/2024 99 99 Encounter Details Date Type Department Care Team ([facility] st Contact Info) Description 06/23/2024 1:00 PM CDT Infusion [facility] Infusion Therapy [address] [place] [phone] Infection of right foot (Primary Dx) [...] often do you attend chur ch or methodist services? More than 4 times per year 06/06/2024 Do you belong to any clubs o r organizations such as latter-day groups, unions, fraternal or athletic groups, or [...] Recorded Patient Health Questionnaire-2 Score 0 06/06/2024 [facility] [place] of Occupat ional [facility] - Occupational Stress Questionnaire Answer Date [...] in the past 12 m [facility], were you homeless or [...] Sign Reading Time Taken Comments Blood Pressure 108/60 06/23/2024 1:35 PM CDT Pulse 82 06/23/2024 1:35 PM CDT Temperature 36.5 ??C (97.7 ??F) 06/23/2024 1:35 PM CD T Respiratory Rate 16 06/23/2024 1:35 PM CDT Oxygen Saturation 93% 06/23/2024 1:35 PM CDT Inhaled Oxygen Concentration - - Weight - - Height - - Body Mass Index - - documented in this encounter Progress Notes * Evelyn Aleman BSN - 06/23/2024 2:01 PM CDT Reviewed with patient and his caregiver all of his upcoming appointments. Also, encouraged pt to clear his voicemail on his phone to allow for phone messages as social work assistant is trying to set up home infusions and there will most likely will be calls be made to him; pt states he understands and will do so when he gets home today. MeU documented in this encounter Plan of Treatment Upcoming Encounters Date Type Department Care Team (Late st Contact Info) Description 08/24/2024 8:30 AM WANT AD RECEIVER Office Visit [facility] Wound Care [address] [place] [phone] 08/24/2024 11:30 AM WANT AD RECEIVER Office [facility] [address] [place], [place] [phone] Angel Coombs, DPM [address] [place] [phone] 08/25/2024 8:30 AM WANT AD RECEIVER Office Visit [facility] Wound Care [address] [place] [phone] 08/26/2024 8:30 AM WANT AD RECEIVER Office Visit [facility] Wound Care [address] [place] [address] 08/27/2024 8:30 AM WANT AD RECEIVER Office Visit [facility] Wound Care [address] [place] [address] 08/27/2024 11:00 AM WANT AD RECEIVER Office Visit [facility] Wound Care [address] [place] [address] Vilma Neves MD [address] [place] [phone] 08/28/2024 8:30 AM WANT AD RECEIVER Office Visit [facility] Wound Care [address] [place] [address] 08/31/2024 8:30 AM WANT AD RECEIVER Office Visit [facility] Wound Care [address] [place] [address] 09/01/2024 8:30 AM WANT AD RECEIVER Office Visit [facility] W[facility] [address] [place] [address] 09/02/2024 8:30 AM WANT AD RECEIVER Office Visit [facility] W[facility] Care [address] [place] [phone] 09/03/2024 8:30 AM WANT AD RECEIVER Office Visit [facility] Wound Care [address] [place] [phone] 09/03/2024 11:00 AM WANT AD RECEIVER Office Visit [facility] Wound Care [address] [place] [address] Vilma Neves MD [address] [place] [phone] 09/03/2024 11:00 AM WANT AD RECEIVER Office Visit [facility] Infectious Disease [address] [place] [address] Amairani Sigala MD [address] [place] [phone] 09/04/2024 8:30 AM WANT AD RECEIVER Office Visit [facility] W[facility] Care [address] [place] [phone] 09/07/2024 8:30 AM WANT AD RECEIVER Office Visit [facility] Wound Care [address] [place] [address] 09/08/2024 8:30 AM WANT AD RECEIVER Office Visit [facility] Wound Care [address] [place] [phone] 09/09/2024 8:30 AM WANT AD RECEIVER Office Visit [facility] Wound Care [address] [place] [address] 17[address] 09/10/2024 8:30 AM WANT AD RECEIVER Office Visit [facility] Wound Care [address] [place] [phone] 09/10/2024 11:20 AM WANT AD RECEIVER Office Visit [facility] Wound Care [address] [place] [address] Vilma Neves MD [address] [place] [phone] 09/11/2024 8:30 AM WANT AD RECEIVER Office Visit [facility] Wound Care [address] [place] [address] 09/14/2024 8:30 AM WANT AD RECEIVER Office Visit [facility] Wound Care [address] [place] [address] 09/15/2024 8:30 AM WANT AD RECEIVER Office Visit [facility] Wound Care [address] [place] [phone] documented as of this encounter Procedures Procedure Name Priority Date/Time Associated Diagnosis Comments ESTIMATED GLOMERULAR FILTRATION RATE (EGFR) Routine 06/23/2024 12:53 PM CDT Infection of right foot CBC WITH AUTO DIFFERENTIAL Routine 06/23/2024 12:53 PM CDT Infection of right foot COMPREHENSIVE METABOLIC PANEL Routine 06/23/2024 12:53 PM CDT Infection of right foot documented in this encounter Results * Estimated Glomerular Filtration Rate (eGFR) (06/23/2024 12:53 PM CDT) Pathologist [facility] Estimated Glomerular Filtration Rate (eGFR) >60 06/23/2024 1:31 PM T [facility] Comment: GFR calculated from serum creatinine value Chronic Kidney Disease less than 60 mL/min/1.73 m2 Kidney Failure less than 15 mL/min/1.73 m2 Note: effective 10/17/2022: 2020 CKD-EPI Equation used 06/23/2024 12:5 3 PM CDT 06/23/2024 12:53 PM CDT Pina Méndez MD LAB BLOOD ORDERABLES [facility] [address] [place] [address] * (ABNORMAL) Comprehensive metabolic panel (06/23/2024 12:53 PM CDT) Pathologist [facility] Total Protein 7.0 6.3 - 8.2 g/dL 06/23/2024 1:31 PM [facility] Albumin, Serum 3.5 3.5 - 5.0 g/dL 06/23/2024 1:31 PM [facility] Total Bilirubin 0.7 0.1 - 1.0 mg/dL 06/23/2024 1:31 PM [facility] AST 25 8 - 48 U/L 06/23/2024 1:31 PM [facility] Alkaline Phosphatase 66 38 - 128 U/L 06/23/2024 1:31 PM [facility] ALT (SGPT) 24 0 - 49 U/L 06/23/2024 1:31 PM [facility] Sodium 137 135 - 145 mEq/L 06/23/2024 1:31 PM [facility] Potassium 4.5 3.5 - 5.1 mEq/L 06/23/2024 1:31 PM [facility] Chloride 103 98 - 107 mEq/L 06/23/2024 1:31 PM [facility] CO2 27 22 - 31 mmol/L 06/23/2024 1:31 PM [facility] BUN 16 5 - 25 mg/dL 06/23/2024 1:31 PM [facility] Creatinine 1.16 0.60 - 1.40 mg/dL 06/23/2024 1:31 PM [facility] Glucose 146(H) 70 - 100 mg/dL 06/23/2024 1:31 PM [facility] Calcium, Total,S 9.1 8.4 - 10.2 mg/dL 06/23/2024 1:31 PM [facility] Anion Gap 7 4 - 13 06/23/2024 1:31 PM [facility] Comment: The anion gap is calculated with the following formula: AGAP = Na ? (Cl + CO2). Fasting? Unknown 06/23/2024 12:58 PM [facility] Blood (Blood, Venous) 06/23/2024 12:53 PM CDT 06/23/2024 12:57 PM T Pina Méndez MD LAB BLOOD ORDERABLES [facility] [address] [place] [address] * (ABNORMAL) CBC auto differential (06/23/2024 12:53 PM T) WBC 8.0 3.5 - 10.5 K/uL 06/23/2024 1:02 PM [facility] RBC 5.41 4.30 - 5.70 M/uL 06/23/2024 1:02 PM [facility] Hemoglobin 16.0 13.5 - 17.5 g/dL 06/23/2024 1:02 PM [facility] Hematocrit 49.4 38.0 - 50.0 % 06/23/2024 1:02 PM [facility] Platelets 324 150 - 450 K/uL 06/23/2024 1:02 PM [facility] MCV 91.3 81.2 - 95.1 fL 06/23/2024 1:02 PM [facility] MCH 29.6 26.0 - 32.0 pg 06/23/2024 1:02 PM [facility] MCHC 32.4 32.0 - 36.0 g/dL 06/23/2024 1:02 PM [facility] RDW 14.5 11.8 - 15.6 % 06/23/2024 1:02 PM [facility] NRBC %, Automated 0 % 06/23/2024 1:02 PM [facility] NRBC Absolute, Autmated 0.00 K/uL 06/23/2024 1:02 PM [facility] Comment: 0-4 Days: 0.01 -0.02 >=5 Days: 0.00 Neutrophils 72.8 % 06/23/2024 1:02 PM [facility] Absolute Neutrophils 5.8 1.7 - 7.0 K/uL 06/23/2024 1:02 PM [facility] Lymphocytes % 16.5 % 06/23/2024 1:02 PM [facility] Absolute Lymphocytes 1.3 0.9 - 2.9 K/uL 06/23/2024 1:02 PM [facility] Monocytes % 7.4 % 06/23/2024 1:02 PM [facility] Monocytes Absolute 0.6 0.3 - 0.9 K/uL 06/23/2024 1:02 PM [facility] Eosinophils 1.7 % 06/23/2024 1:02 PM [facility] Absolute Eosinophils 0.1 0.1 - 0.5 K/uL 06/23/2024 1:02 PM [facility] Basophils 1.0 % 06/23/2024 1:02 PM [facility] Absolute Basophils 0.1 0.0 - 0.1 K/uL 06/23/2024 1:02 PM [facility] Immature Leukocytes 0.6 % 06/23/2024 1:02 PM [facility] Immature Leukocytes Absolute 0.05(H) 0.00 - 0.04 K/uL 06/23/2024 1:02 PM CDT [facility] Blood (Blood, Venous) 06/23/2024 12:53 PM CDT 06/23/2024 12:57 PM CDT Pina Méndez MD LAB BLOOD ORDERABLES [facility] [address] [place] [address] documented in this encounter Visit Diagnoses Diagnosis Infection of right foot- Primary documented in this encounter Administered Medications Inactive Administered Medications - up to 3 most recent administrations Medication Order MAR Action Action Date Dose Rate Site ertapenem (INVanz) 1 g in sodium chloride 0.9 % 50 mL [id number] Plus 1 g, Intravenous, at 100 mL/hr, Administer over 30 Minutes, Every 24 hours, First dose on Sat06/23/24 at 1300, For 30 days, Indication: Cellulitis New Bag 06/23/2024 12:59 PM CDT 1 g 100 mL/hr documented in this encounter Additional Health Concerns Infection Onset Date Last Indicated Resolved Time MSSA 06/06/2024 06/12/2024 07/13/2024 9:58 AM CDT documented as of this encounter Care Teams Outbound Telemarketer Relationship Specialty Start Date End Date Thu Bhagat PA-C [address] [place] [phone] PCP - General 11/26/22 documented as of this encounter
--- OUTSIDE RECORDS SUMMARY | 2024-08-21 10:26 | XMS_ITS | Encounter Summary ---
Author Organization [facility] er Address [address] [place] [id number] Care Team Providers Care Doctor Of Naturopathic Medicine Name Role Phone Thu Bhagat PA-C Primary Care Provider Reason for Visit * Reason Comments Cellulitis Right foot * Auth/Cert (Routine) Specialty Diagnoses / Procedures Referred By Conteufemia t Referred To Contact Diagnoses Hyperglycemia Infection of right foot Acute renal failure, unspecified acute renal failure type (HCC) Procedures na Referral ID Status Reason Start Date Expiration Date Visits Re quested Visits Authorized [id number] 1 1 Encounter Details Date Type Department Care Team (Late st Contact Info) Description 06/06/2024 8:58 AM CDT - 06/17/2024 2:54 PM CDT Hospital Encounter [facility] Hospital Medical/Surgical [address] [place] [id number] Shantell Lewis MD [address] [place] [address] [phone] Pina Bonilla MD [address] [place] [address] [phone] Infection of right foot (Primary Dx); Hyperglycemia; Acute renal failure, unspecified acute renal failure type (HCC); Type 2 diabetes mellitus with diabetic neuropathy, without long-term current use of insulin (HCC); Status post PICC central line placement; Status post peripherally inserted central catheter (PICC) central line placement; Longstanding persistent atrial fibrillation (HCC) Discharge Disposition: Home or Self Care Social [...] from your doctor or pharmacy? Never 06/06/2024 [facility] Utilities Answer Date Recorded In the past 12 months has e [email or web address], [employer], oil, or water [employer] threatened to shut off services in your [...] any clubs o r organizations such as denominational groups, unions, fraternal or athletic groups, or [...] Recorded Patient Health Questionnaire-2 Score 0 06/06/2024 [facility] Occupat ional [facility] - Occupational Stress [...] any time in the past 12 m [facility], were you homeless or living [...] Sign Reading Time Taken Comments Blood Pressure 127/90 06/17/2024 7:36 AM CDT Pulse 98 06/17/2024 7:36 AM CDT Temperature 36.3 ??C (97.3 ??F) 06/17/2024 7:36 AM CD T Respiratory Rate 16 06/17/2024 7:36 AM CDT Oxygen Saturation 94% 06/17/2024 7:36 AM CDT Inhaled Oxygen Concentration - - Weight 89.6 kg (197 lb 8.5 oz) 06/06/2024 9:01 A M CDT Height 185.4 cm (6' 0.99) 06/15/2024 9:53 AM CD T Body Mass Index 26.07 06/06/2024 9:01 AM CDT documented in this encounter Discharge Summaries * Pina Bonilla MD - 06/17/2024 12:49 PM CDT INPATIENT DISCHARGE SUMMARY DATE OF ADMISSION 06/06/2024 DATE OF DISCHARGE 06/17/2024 ADMITTING PROVIDER Shantell Lewis MD - Hospitalist DISCHARGING PROVIDER Pina Bonilla MD - Hospitalist [employer] Angel Coombs DPM - Podiatry Amairani Strickland MD - ID Vilma Neves MD - Wound Care PROCEDURES 06/08/2024 1:29 PM 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 Possible transmetatarsal amputation with gastroc lengthening 06/12/2024 4:43 PM INCISION AND DRAINAGE woth possible delayed primary closure right foot Angel Coombs DPM ADMISSION/DISCHARGE DIAGNOSES Principal Diagnosis: Infection of right foot Principal Problem: Infection of right foot BRIEF HPI Karin Davis is a 69 y.o. male with a history of diabetes mellitus type 2, atrial fibrillation on Eliquis, hyperlipidemia, major depressive disorder, who presented to the emergency room complaining of pain and redness in his foot. Patient states symptoms have been going on for about 3 weeks. Patient was treated in the emergency room on June 02 for similar symptoms, was diagnosed with cellulitis, given oral antibiotics, and discharged home. Patient states that he has not improved. He notes significant drainage from the second toe, diffuse redness over the entire foot, swelling, and pain. He feels like his toes have become gradually discolored, particularly the second toe on that right fo ot. He endorses numbness as well. Patient denies any nausea or vomiting and dizziness, CP, or SOB. He has not had fevers that he knows of. In the emergency room on presentation, the patient was found to have a creatinine of 2.61, up from a normal baseline, procalcitonin of 1.34, white blood cell count of 21.3 and CRP of greater than 320. An MRI of the right foot was obtained which showed significant cellulitis and myositis, as well asconcern for a soft tissue abscess. Podiatry was consulted, and the patient is being admitted for IVantibiotics and further care under inpatient status. PROBLEM-FOCUSED HOSPITAL COURSE Diabetic foot infection Patient underwent a right [...] for his surgeries. He was on full doseLovenox Following completion of surgical interventions Eliquis was [...] good blood sugar control to promote healing. HLD: Continue statin PHYSICAL EXAM General Appearance: Alert, cooperative, no distress, appears stated age Head: Normocephalic, without obvious abnormality, atraumatic Eyes: PERRL, conjunctiva/corneas clear, EOM's intact Throat: MMM, no erythema Neck: Supple, symmetrical, trachea midline, no adenopathy Back: Symmetric, no curvature, ROM normal, no CVA tenderness Lungs: Clear to auscultation bilaterally, respirations unlabored Chest Wall: No tenderness or deformity Heart: Irregularly irregular, S1 and S2 normal, no murmur, rub or gallop Abdomen: Soft, non-tender, bowel sounds active all four quadrants, no masses, no organomegaly Extremities: Dressing in place over right 2nd toe amputation Pulses: 2+ and symmetric all extremities Skin: Skin color, texture, turgor normal, no rashes or lesions Lymph nodes: Cervical, supraclavicular, and axillary nodes normal Neurologic: CNII-XII intact, normal strength, no tremor PERTINENT LABS / DIAGNOSTICS / MICRO Recent Results (from the past 24 hour(s)) POCT Precision glucose Collection Time: 06/16/24 4:39 PM Result Value Ref Range Glucose Blood, POC 273 (H) 70 - 100 mg/dL POCT Precision glucose Collection Time: 06/16/24 10:04 PM Result Value Ref Range Glucose Blood, POC 125 (H) 70 - 100 mg/dL CBC ([facility]) Collection Time: 06/17/24 5:50 AM Result Value Ref Range WBC 10.5 3.5 - 10.5 K/uL RBC 5.18 4.30 - 5.70 M/uL Hemoglobin 15.2 13.5 - 17.5 g/dL Hematocrit 47.8 38.0 - 50.0 % Platelets 376 150 - 450 K/uL MCV 92.3 81.2 - 95.1 fL MCH 29.3 26.0 - 32.0 pg MCHC 31.8 (L) 32.0 - 36.0 g/dL RDW 14.6 11.8 - 15.6 % NRBC %, Automated 0 % NRBC Absolute, Autmated 0.00 K/uL Basic metabolic panel Collection Time: 06/17/24 5:50 AM Result Value Ref Range Sodium 136 135 - 145 mEq/L Potassium 4.1 3.5 - 5.1 mEq/L Chloride 101 98 - 107 mEq/L CO2 32 (H) 22 - 31 mmol/L Creatinine 1.14 0.60 - 1.40 mg/dL BUN 22 5 - 25 mg/dL Glucose 135 (H) 70 - 100 mg/dL Calcium, Total,S 8.9 8.4 - 10.2 mg/dL Anion Gap 3 (L) 4 - 13 Fasting? Yes Estimated Glomerular Filtration Rate (eGFR) Collection Time: 06/17/24 5:50 AM Result Value Ref Range Estimated Glomerular Filtration Rate (eGFR) >60 POCT Precision glucose Collection Time: 06/17/24 6:37 AM Result Value Ref Range Glucose Blood, POC 150 (H) 70 - 100 mg/dL POCT Precision glucose Collection Time: 06/17/24 11:43 AM Result Value Ref Range Glucose Blood, POC 284 (H) 70 - 100 mg/dL DISCHARGE DETAILS Discharge To: Home Condition on Discharge: Stable Activity: Nonweight bearing on right lower ext Diet: Diabetic Dietary Orders (From admission, onward) Start Ordered 06/12/241809 Adult diet Regular; 60 gm carb Diet effective now Question Answer Comment Diet type Regular Carbohydrate restriction: 60 gm carb 06/12/241808 Code Status: Full Code Orders: 1) carefully remove all prior wraps and dressings 2) rinse the right foot ulcer with saline 3) Aquacel Ag as the primary dressing followed by ABD pad and hold in place with Danilo followed by 2 layer Tubigrip 4) Rooke boot whenever not on ambulating 5) if the dressings become soiled, saturated, or displaced, please remove the dressings and replaceas above PRIMARY CARE PROVIDER: Thu Bhagat PA-C [phone] TEST RESULTS PENDING AT DISCHARGE @DCPENDLAB@ OUTPATIENT FOLLOW-UP Future Appointments Date Time Provider Department [place] 06/18/2024 1:00 PM Rocco Couch PA-C [facility] 06/18/2024 2:00 PM [facility] 06/19/2024 2:00 PM [facility] 06/20/2024 2:00 PM [facility] OP[facility] INFUSION [facility] 06/21/2024 2:00 PM [facility] INFUSION [facility] 06/22/2024 2:00 PM [facility] INFUSION [facility] 06/23/2024 1:00 PM INFUSION CHAIR 1 [facility] 06/23/2024 2:30 PM Angel Coombs, DPM [facility] 06/24/2024 2:00 PM INFUSION CHAIR 1 [facility] 06/25/2024 8:00 AM Vilma Neves MD [facility] 06/25/2024 1:00 PM Amairani Sigala MD [facility] 06/25/2024 2:00 PM INFUSION CHAIR 1 [facility] 06/26/2024 2:00 PM INFUSION CHAIR 1 [facility] 06/27/2024 2:00 PM [facility] OP[facility] INFUSION [facility] 06/28/2024 2:00 PM [facility] INFUSION [facility] 06/29/2024 2:00 PM INFUSION CHAIR 1 [facility] 06/30/2024 2:00 PM INFUSION CHAIR 1 [facility] 07/01/2024 2:00 PM INFUSION CHAIR 1 [facility] 07/02/2024 2:00 PM INFUSION CHAIR 1 [facility] 07/03/2024 2:00 PM INFUSION CHAIR 1 [facility] 07/04/2024 2:00 PM [facility] OP[facility] INFUSION [facility] 07/05/2024 2:00 PM [facility] INFUSION [facility] 07/06/2024 2:00 PM INFUSION CHAIR 1 [facility] 07/07/2024 2:00 PM INFUSION CHAIR 1 [facility] 07/08/2024 2:00 PM INFUSION CHAIR 1 [facility] 07/09/2024 2:00 PM INFUSION CHAIR 1 [facility] 07/10/2024 2:00 PM INFUSION CHAIR 1 [facility] 07/13/2024 2:00 PM INFUSION CHAIR 1 [facility] 07/14/2024 2:00 PM INFUSION CHAIR 1 [facility] 07/15/2024 2:00 PM INFUSION CHAIR 1 [facility] 07/16/2024 2:00 PM INFUSION CHAIR 1 [facility] 07/17/2024 2:00 PM INFUSION CHAIR 1 [facility] 07/20/2024 2:00 PM INFUSION CHAIR 1 [facility] MEDICATIONS AT DISCHARGE Your medication list CONTINUE taking these medications Instructions Last Dose Given Next Dose Due apixaban 5 MG tablet Commonly known as: ELIQUIS aspirin EC 81 MG EC tablet atorvastatin 80 MG tablet Commonly known as: LIPITOR carvedilol 12.5 MG tablet Commonly known as: COREG doxycycline 100 MG capsule Commonly known as: Vibramycin Take 1 capsule (100 mg total) by mouth 2 (two) times a day for 14 days Empagliflozin 25 MG tablet glipiZIDE 10 MG 24 hr tablet Commonly known as: GLUCOTROL XL lisinopril 10 MG tablet Commonly known as: ZESTRIL metFORMIN 1000 MG tablet Commonly known as: GLUCOPHAGE pioglitazone 45 MG tablet Commonly known as: ACTOS UNABLE TO FIND ASK your doctor about these medications Instructions Last Dose Given Next Dose Due cyanocobalamin 1000 MCG tablet Commonly known as: VITAMIN B-12 lidocaine 4 % cream Commonly known as: LMX Magnesium Oxide 420 MG tablet Vitamin D (Cholecalciferol) 25 MCG (1000 UT) tablet 40 minutes of total time spent in patient's care such as (preparation/review of tests, obtaining/reviewing separately obtained history, medically appropriate examination/evaluation, counseling/educating patient/family/caregiver, ordering medications/tests/procedures, referring/communicating with other health rn patient care not separately reported, documentation, and independently interpretingresults not separately reported, communicating results to the patient/family/caregiver, and care coordination not separately reported). Pina Bonilla MD Hospitalist documented in this encounter Discharge Instructions * Discharge Instructions* Vilma Neves MD - 06/16/2024 1:[address] [facility] Patient name: Karin Davis Date of service: 06/16/24 Provider: Vilma Neves MD Please disregard all previous wound dressing orders. The following are up-to-date wound dressing orders for the above patient: Please perform the following to the right foot on day of hospital discharge: 1) carefully remove all prior wraps and dressings 2) rinse the right foot ulcer with saline 3) Aquacel Ag as the primary dressing followed by ABD pad and hold in place with Danilo followed by 2 layer Tubigrip 4) Rooke boot whenever not on ambulating 5) if the dressings become soiled, saturated, or displaced, please remove the dressings and replaceas above Patient needs to be seen in the wound clinic 1 to 2 days after hospital discharge Please direct any wound questions or concerns to: [facility] The clinic is available for questions Saturday through Saturday 8 AM -5 PM. Please avoid presenting to the emergency department unless there is an emergency such as signs and symptoms of sepsis, uncontrolled pain, or fevers. * Discharge Instr - Activity* Domi Mcdonald RN - 06/17/2024 2:00 PM CDT As tolerated Non weight bearing on right foot Wear Rooke boot when not ambulating * Discharge Instr - Diet* Domi Mcdonald RN - 06/17/2024 2:00 PM CDT As tolerated * Attachments The following attachments cannot be sent through Care Everywhere. * Toe Amputation Care After (Czech) * Type 2 Diabetes Mellitus Self-Care Adult [id number] (Czech) * Diabetic Neuropathy (Czech) documented in this encounter Medications at Time of Discharge [...] mouth 1 (one) time each day 04/27/2024 carvedilol (COREG) 12.5 MG tablet Take 1 tablet (12.5 mg total) by mouth 2 (two) times a day 10/01/2023 carvedilol (COREG) 25 MG tabletIndications:Longs tanding persistent atrial fibrillation (HCC) Take 1 tablet (25 mg total) by mouth 2 (two) times a day with meals for 14 doses 14 tablet 06/17/2024 cyanocobalamin (VITAMIN B-12) 1000 MCG tablet Take 1 tablet (1,000 mcg total) by mouth 1 (one) time each day Empagliflozin 25 MG tablet Take 25 mg by mouth 1 (one) time each day 10/28/2023 glipiZIDE (GLUCOTROL XL) 10 MG 24 hr [...] by mouth 1 (one) time each day ertapenem (INVanz) IVPB 1 g in 50 mL (Mini-Bag Plus) in NSIndications:Infection of right foot Infuse 1 g into a venous catheter 1 (one) time each day at the same time for 1 dose 1 each 06/17/2024 06/18/2024 oxyCODONE (ROXICODONE) 5 MG immediate release tabletIndications:Infec tion of right foot Take 1 tablet (5 mg total) by mouth every 4 (four) hours if needed for moderate pain or severe pain for up to 10 days 12 tablet 06/17/2024 06/27/2024 documented as of this encounter Progress Notes * Yajaira Cooper PharmD - 06/17/2024 2:36 PM CDT Discharge Medication Education: Spoke to Mr. Davis in the patient's room to provide discharge medication education. Discussed how to read the after visit summary (AVS), and when the next dose times were going to be. Discussed resuming home dosing schedule of maintenance medications. Discussed new medications: Ertapenem once daily at infusion therapy @ 2 pm. Oxycodone every 4 hours as needed for pain, discussed side effects such as dizziness and somnolence. The patient understands the medication therapy plan, and has no unanswered questions at this time. * Domi Mcdonald RN - 06/17/2024 2:07 PM CDT Problem: Pain - Adult Goal: Verbalizes/displays adequate comfort level or baseline comfort level 06/17/2024 1407 by Domi Mcdonald RN Outcome: Adequate for Discharge Problem: Infection - Adult Goal: Absence of infection during hospitalization 06/17/2024 1407 by Domi Mcdonald, RN Outcome: Adequate for Discharge Problem: Discharge Planning Goal: Discharge to home or other facility with appropriate resources 06/17/2024 1407 by Domi Mcdonald RN Outcome: Adequate for Discharge Goal: Absence of fever/infection during anticipated neutropenic period 06/17/2024 1407 by Domi Mcdonald RN Outcome: Adequate for Discharge Problem: Safety Adult - Fall Goal: Free from fall injury 06/17/2024 140 by Domi Mcdonald RN Outcome: Adequate for Discharge Goals: Identify possible barriers to meeting goals/advancing plan of care: None Stability of the patient: Moderately Stable - Low risk of patient condition declining or worsening End of Shift Summary: DEREK is currently stable for discharge at this time. Patient finished final dose of ertapenem. He has follow up appointments in 1-2 days and will have daily outpatient infusions with PICC. The patient is vitally stable and shows no signs of infection at this time. Patient remains afebrile. Wound care completed on right foot with aquacel ag, abd pad, gauze, and 2 layers of tubigrip. Patient is going home with a Rooke boot. Education completed on wearing the Rooke boot whenever not ambulating. Patient's pain is rated a 2/10, withing the patient's comfort level. * Karley Bonner LSW - 06/17/2024 12:49 PM CDT Pt is ready for discharge on this date. Pt to do outpatient infusion at [facility] Infusion and [facility] wound clinic and is aware of his appointments. Pt is planning to rent DME equipment until the [facility] is able to deliver the items. Pt is aware of the cost. DME listing was provided. Pt's girlfriend to provide transportation home. Addressed and answered all questions/concerns. No further [facility] SS needed at this time. * Jasiel Rust, FadiD - 06/17/2024 9:08 AM CDT Images from the original note were not included. OPAT Team Note This patient has been enrolled in outpatient antimicrobial therapy (OPAT) and is being managed by the OPAT team. Patient: Karin Davis OPAT Enrollment Status: Clinic Infusion OPAT Labs Due: Weekly CBC and CMP OPAT End Date: 07/16/2024 (4-6 weeks of IV antibiotic) Micro Results: Microbiology Results Collected Updated Procedure 06/12/2024 1705 06/13/2024 1220 Tissue Culture, Anaerobic [[id number]] Swab from Foot, Right Anaerobic Tissue Culture Component Value Gram Stain No organisms seen. No WBC's seen. 06/12/2024 1704 06/15/2024 0843 Tissue culture, aerobic [[id number]] (Abnormal) Swab from Foot, Right Tissue Culture Aerobic Component Value Gram Stain No organisms seen. No WBC's seen. Tissue Culture, Aerobic Staphylococcus aureus Many Use oxacillin interpretation to predict results for anti-staphylococcal beta-lactam antibiotics (except ceftaroline). [P] Susceptibility Staphylococcus aureus Not Specified (Preliminary) Clindamycin <=0.5 mcg/mL Susceptible Erythromycin <=0.5 mcg/mL Susceptible Oxacillin 0.5 mcg/mL Susceptible Tetracycline <=4 mcg/mL Susceptible Trimeth/Sulfa <=0.5/9.5 mcg/mL Susceptible Lab Results: Results Collected Updated Procedure Result Status 06/17/2024 0550 06/17/2024 0635 Basic metabolic panel [[id number]] (Abnormal) Blood, Venous Final result Component Value Units Sodium 136 mEq/L Potassium 4.1 mEq/L Chloride 101 mEq/L CO2 32 mmol/L Creatinine 1.14 mg/dL BUN 22 mg/dL Glucose 135 mg/dL Calcium, Total,S 8.9 mg/dL Anion Gap 3 Fasting? Yes 06/17/2024 0550 06/17/2024 0618 CBC ([facility]) [[id number]] (Abnormal) Blood, Venous Final result Component Value Units WBC 10.5 K/uL RBC 5.18 M/uL Hemoglobin 15.2 g/dL Hematocrit 47.8 % Platelets 376 K/uL MCV 92.3 fL MCH 29.3 pg MCHC 31.8 g/dL RDW 14.6 % NRBC %, Automated 0 % NRBC Absolute, Autmated 0.00 K/uL 06/16/2024 0608 06/16/2024 0826 Basic metabolic panel [[id number]] (Abnormal) Blood, Venous Final result Component Value Units Sodium 136 mEq/L Potassium 4.3 mEq/L Chloride 100 mEq/L CO2 30 mmol/L Creatinine 1.13 mg/dL BUN 20 mg/dL Glucose 116 mg/dL Calcium, Total,S 9.1 mg/dL Anion Gap 6 Fasting? Unknown 06/16/2024 0608 06/16/2024 0652 CBC ([facility]) [[id number]] Blood, Venous Final result Component Value Units WBC 10.2 K/uL RBC 5.36 M/uL Hemoglobin 15.9 g/dL Hematocrit 48.9 % Platelets 369 K/uL MCV 91.2 fL MCH 29.7 pg MCHC 32.5 g/dL RDW 14.7 % NRBC %, Automated 0 % NRBC Absolute, Autmated 0.00 K/uL 06/15/2024 0600 06/15/2024 0617 Basic metabolic panel [[id number]] (Abnormal) Blood, Venous Final result Component Value Units Sodium 136 mEq/L Potassium 4.0 mEq/L Chloride 100 mEq/L CO2 30 mmol/L Creatinine 1.05 mg/dL BUN 17 mg/dL Glucose 117 mg/dL Calcium, Total,S 8.8 mg/dL Anion Gap 6 Fasting? Yes 06/15/2024 0600 06/15/2024 0606 CBC ([facility]) [[id number]] (Abnormal) Blood, Venous Final result Component Value Units WBC 11.5 K/uL RBC 5.04 M/uL Hemoglobin 14.9 g/dL Hematocrit 46.2 % Platelets 358 K/uL MCV 91.7 fL MCH 29.6 pg MCHC 32.3 g/dL RDW 14.9 % NRBC %, Automated 0 % NRBC Absolute, Autmated 0.00 K/uL 06/14/2024 0545 06/14/2024 0628 Basic metabolic panel [[id number]] (Abnormal) Blood, Venous Final result Component Value Units Sodium 138 mEq/L Potassium 4.2 mEq/L Chloride 101 mEq/L CO2 31 mmol/L Creatinine 1.03 mg/dL BUN 20 mg/dL Glucose 142 mg/dL Calcium, Total,S 8.9 mg/dL Anion Gap 6 Fasting? Yes 06/14/2024 0545 06/14/2024 0621 CBC ([facility]) [[id number]] (Abnormal) Blood, Venous Final result Component Value Units WBC 12.1 K/uL RBC 5.04 M/uL Hemoglobin 15.1 g/dL Hematocrit 47.3 % Platelets 396 K/uL MCV 93.8 fL MCH 30.0 pg MCHC 31.9 g/dL RDW 15.2 % NRBC %, Automated 0 % NRBC Absolute, Autmated 0.00 K/uL 06/13/2024 0500 06/13/2024 0548 Basic metabolic panel [[id number]] (Abnormal) Blood, Venous Final result Component Value Units Sodium 135 mEq/L Potassium 4.0 mEq/L Chloride 102 mEq/L CO2 29 mmol/L Creatinine 1.21 mg/dL BUN 26 mg/dL Glucose 188 mg/dL Calcium, Total,S 8.7 mg/dL Anion Gap 4 Fasting? Yes 06/13/2024 0500 06/13/2024 0533 CBC ([facility]) [[id number]] (Abnormal) Blood, Venous Final result Component Value Units WBC 16.2 K/uL RBC 5.00 M/uL Hemoglobin 14.8 g/dL Hematocrit 46.7 % Platelets 382 K/uL MCV 93.4 fL MCH 29.6 pg MCHC 31.7 g/dL RDW 15.2 % NRBC %, Automated 0 % NRBC Absolute, Autmated 0.00 K/uL 06/12/2024 0540 06/12/2024 0615 Basic metabolic panel [[id number]] (Abnormal) Blood, Venous Final result Component Value Units Sodium 137 mEq/L Potassium 4.2 mEq/L Chloride 103 mEq/L CO2 29 mmol/L Creatinine 1.13 mg/dL BUN 25 mg/dL Glucose 172 mg/dL Calcium, Total,S 9.2 mg/dL Anion Gap 5 Fasting? Yes 06/12/2024 0540 06/12/2024 0559 CBC ([facility]) [[id number]] (Abnormal) Blood, Venous Final result Component Value Units WBC 14.4 K/uL RBC 5.22 M/uL Hemoglobin 15.5 g/dL Hematocrit 48.2 % Platelets 396 K/uL MCV 92.3 fL MCH 29.7 pg MCHC 32.2 g/dL RDW 15.1 % NRBC %, Automated 0 % NRBC Absolute, Autmated 0.00 K/uL 06/11/2024 0610 06/11/2024 0710 Basic metabolic panel [[id number]] (Abnormal) Blood, Venous Final result Component Value Units Sodium 138 mEq/L Potassium 4.2 mEq/L Chloride 104 mEq/L CO2 25 mmol/L Creatinine 1.20 mg/dL BUN 24 mg/dL Glucose 173 mg/dL Calcium, Total,S 9.5 mg/dL Anion Gap 9 Fasting? Yes 06/11/2024 0610 06/11/2024 0653 CBC ([facility]) [[id number]] (Abnormal) Blood, Venous Final result Component Value Units WBC 14.5 K/uL RBC 5.09 M/uL Hemoglobin 15.3 g/dL Hematocrit 46.8 % Platelets 389 K/uL MCV 91.9 fL MCH 30.1 pg MCHC 32.7 g/dL RDW 15.3 % NRBC %, Automated 0 % NRBC Absolute, Autmated 0.00 K/uL 06/10/2024 0554 06/10/2024 0613 Basic metabolic panel [[id number]] (Abnormal) Blood, Venous Final result Component Value Units Sodium 138 mEq/L Potassium 4.2 mEq/L Chloride 107 mEq/L CO2 24 mmol/L Creatinine 1.23 mg/dL BUN 24 mg/dL Glucose 139 mg/dL Calcium, Total,S 9.3 mg/dL Anion Gap 7 Fasting? Yes 06/10/2024 0554 06/10/2024 0607 CBC ([facility]) [[id number]] (Abnormal) Blood, Venous Final result Component Value Units WBC 15.2 K/uL RBC 5.00 M/uL Hemoglobin 15.2 g/dL Hematocrit 47.1 % Platelets 347 K/uL MCV 94.2 fL MCH 30.4 pg MCHC 32.3 g/dL RDW 15.6 % NRBC %, Automated 0 % NRBC Absolute, Autmated 0.00 K/uL 06/09/2024 1138 06/09/2024 1414 Vancomycin [[id number]] Blood, Venous Final result Component Value Units Vancomycin 22.9 mcg/mL Last Dose Date 06/09/2024 Last Dose Time 1010 AM 06/09/2024 0605 06/09/2024 0649 Basic metabolic panel [[id number]] (Abnormal) Blood, Venous Final result Component Value Units Sodium 137 mEq/L Potassium 4.2 mEq/L Chloride 108 mEq/L CO2 24 mmol/L Creatinine 1.21 mg/dL BUN 29 mg/dL Glucose 113 mg/dL Calcium, Total,S 9.2 mg/dL Anion Gap 5 Fasting? Yes 06/09/2024 0605 06/09/2024 0637 CBC ([facility]) [[id number]] (Abnormal) Blood, Venous Final result Component Value Units WBC 13.8 K/uL RBC 5.05 M/uL Hemoglobin 14.9 g/dL Hematocrit 47.0 % Platelets 334 K/uL MCV 93.1 fL MCH 29.5 pg MCHC 31.7 g/dL RDW 15.4 % NRBC %, Automated 0 % NRBC Absolute, Autmated 0.00 K/uL 06/08/2024 0605 06/08/2024 0707 Basic metabolic panel [[id number]] (Abnormal) Blood, Venous Final result Component Value Units Sodium 138 mEq/L Potassium 3.9 mEq/L Chloride 109 mEq/L CO2 21 mmol/L Creatinine 1.33 mg/dL BUN 36 mg/dL Glucose 84 mg/dL Calcium, Total,S 8.9 mg/dL Anion Gap 8 Fasting? Yes 06/08/2024 0605 06/08/2024 0658 CBC ([facility]) [[id number]] (Abnormal) Blood, Venous Final result Component Value Units WBC 14.2 K/uL RBC 4.80 M/uL Hemoglobin 14.5 g/dL Hematocrit 44.6 % Platelets 298 K/uL MCV 92.9 fL MCH 30.2 pg MCHC 32.5 g/dL RDW 15.1 % NRBC %, Automated 0 % NRBC Absolute, Autmated 0.00 K/uL 06/06/2024 1000 06/08/2024 0229 Hemoglobin A1c [[id number]] (Abnormal) Blood, Venous Final result Component Value Units Hemoglobin A1C 9.0 % A1C 06/07/2024 0513 06/07/2024 0702 Vancomycin [[id number]] Blood, Venous Final result Component Value Units Vancomycin 9.6 mcg/mL Last Dose Date 06/06/2024 Last Dose Time 1040 06/07/2024 0513 06/07/2024 0546 Basic metabolic panel [[id number]] (Abnormal) Blood, Venous Final result Component Value Units Sodium 138 mEq/L Potassium 4.0 mEq/L Chloride 107 mEq/L CO2 22 mmol/L Creatinine 1.81 mg/dL BUN 55 mg/dL Glucose 125 mg/dL Calcium, Total,S 9.1 mg/dL Anion Gap 9 Fasting? Yes 06/07/2024 0513 06/07/2024 0539 CBC ([facility]) [[id number]] (Abnormal) Blood, Venous Final result Component Value Units WBC 16.4 K/uL RBC 4.95 M/uL Hemoglobin 14.8 g/dL Hematocrit 45.4 % Platelets 281 K/uL MCV 91.7 fL MCH 29.9 pg MCHC 32.6 g/dL RDW 15.1 % NRBC %, Automated 0 % NRBC Absolute, Autmated 0.00 K/uL 06/06/2024 1000 06/06/2024 1119 Procalcitonin [[id number]] (Abnormal) Blood, Venous Final result Component Value Units Procalcitonin 1.34 ng/mL 06/06/2024 0955 06/06/2024 1034 Covid-19, [employer] ID Now, PCR symptomatic [[id number]] Swab from Nasal Final result Component Value Covid Source Nasal Covid-19, ID Now PCR NEGATIVE 06/06/2024 1000 06/06/2024 1032 C-reactive protein [[id number]] (Abnormal) Blood, Venous Final result Component Value Units CRP >320.0 mg/L 06/06/2024 1000 06/06/2024 1030 CBC auto differential [[id number]] (Abnormal) Blood, Venous Final result Component Value [...] 0.00 K/uL 06/06/2024 1000 06/06/2024 1030 Morphology [[id number]] Final result Component Value Slide Review PERFORMED RBC Morphology NORMAL PLT Morphology ADEQUATE 06/06/2024 1000 06/06/2024 1028 Basic metabolic panel [[id number]] (Abnormal) Blood, Venous Final result Component Value Units Sodium 134 mEq/L Potassium 4.5 mEq/L Chloride 98 mEq/L CO2 24 mmol/L Creatinine 2.61 mg/dL BUN 78 mg/dL Glucose 254 mg/dL Calcium, Total,S 9.6 mg/dL Anion Gap 12 Fasting? Unknown 06/06/2024 1000 06/06/2024 1028 Magnesium [[id number]] (Abnormal) Blood, Venous Final result Component Value Units Magnesium 2.5 mg/dL 06/06/2024 1000 06/06/2024 1020 Lactate, plasma [[id number]] Blood, Venous Final result Component Value Units Lactate 1.3 mmol/L 06/06/2024 1000 06/06/2024 1017 APTT [[id number]] (Abnormal) Blood, Venous Final result Component Value Units aPTT 40 seconds 06/06/2024 1000 06/06/2024 1017 Protime-INR [[id number]] (Abnormal) Blood, Venous Final result Component Value Units Protime 19.0 seconds INR 1.6 06/06/2024 1000 06/06/2024 1014 Blood gas, venous [[id number]] Blood, Venous Final result Component Value Units pH, Jorge 7.37 pCO2, Jorge 44 mm Hg HCO3, Venous 25.4 mmol/L Base Excess/Deficit Venous -0.2 mmol/L Current Indication: Other (Comment) Diabetic foot abscess Overall Recommendation: The patient is currently taking Ertapenem (1 gram Q24H) . Per antimicrobial stewardship guidelines,pharmacy recommends Karin Davis continue with current Therapy. Pharmacy took the following actions: No changes made Additional Recommendations: Submitted by: Jasiel Rust, PharmD * Emiliana Chaparro RN - 06/17/2024 4:31 AM CDT Goals: Clinical Goals for the Shift: wound vac, Identify possible barriers to meeting goals/advancing plan of care: antibiotics, wound vac/dressingchanges Stability of the patient: Moderately Stable - Low risk of patient condition declining or worsening End of Shift Summary: Minimal complaints of pain overnight, VSS, wound vac intact all night, ready to discharge today. Problem: Pain - Adult Goal: Verbalizes/displays adequate comfort level or baseline comfort level Outcome: Progressing Problem: Infection - Adult Goal: Absence of infection during hospitalization Outcome: Progressing Goal: Absence of fever/infection during anticipated neutropenic period Outcome: Progressing Problem: Safety Adult - Fall Goal: Free from fall injury Outcome: Progressing Problem: Discharge Planning Goal: Discharge to home or other facility with appropriate resources Outcome: Progressing Problem: Knowledge Deficit Goal: Patient/family/caregiver demonstrates understanding of disease process, treatment plan, medications, and discharge instructions Outcome: Progressing Problem: Potential for Compromised Skin Integrity Goal: Skin Integrity is Maintained or Improved Outcome: Progressing Goal: Nutritional status is improving Outcome: Progressing Problem: Urinary Incontinence Goal: Perineal skin integrity is maintained or improved Outcome: Progressing Problem: Glucose Imbalance Goal: Clinical indication of glucose balance is achieved Outcome: Progressing Goal: Patient's discharge needs are met Outcome: Progressing * Ioana Aparicio DPT - 06/16/2024 4:18 PM CDT Physical Therapy Evaluation Patient name:Karin Davis Date of service: 06/16/2024 Attending provider: Pina Bonilla MD Reason for referral: Decreased mobility, Decreased safety, Patient/ Caregiver education, and Abnormality of gait Date of Surgery: I&D on 06/08 (Right second toe amputation, right second metatarsal head resection, incision and drainage, wound debridement) and 06/12 right foot I&D Precautions: wound vac right lower extremity Weight Bearing Status: non-weight bearing right lower extremity Vitals: 06/16/24 0734 BP: Pulse: Resp: 16 Temp: (!) 35.9 ??C (96.6 ??F) SpO2: Past medical history: Past Medical History: Diagnosis Date Atrial fibrillation [...] (HCC) 09/22/2012 Unspecified systolic (congestive) heart failure ([facility]) 05/23/2018 SUBJECTIVE: Patient is 69 year old male admitted to hospital 06/06/2024 with pain and redness in right foot for 3 weeks. An MRI of the right foot was obtained which showed significant cellulitis and myositis, as well as concern for a soft tissue abscess. Podiatry was consulted, and the patient was admitted for IV antibiotics and further care under inpatient status. Patient had surgical I&D on 06/08 (Right second toe amputation, right second metatarsal head resection, incision and drainage, wound debridement) and 06/12 right foot I&D. Wound vac was placed 06/13/2024. Patient working on plans to discharge home with wound vac and IV antibiotics Medical Problems/diagnoses: Principal Problem: Infection of right foot Treatment diagnosis: Impaired gait and mobility Safety/ Judgement: intact Basic command following: intact Affect: cooperative and flat Pain: Pain present- Yes Pain location- right foot Pain quality- pain level at rest 2/10, with activity 2/10 Previous level of function: Home environment: Lives in- Private residence: apartment, handicapped accessible, main floor, no stairs Lives with significant other Prior functional status: Independent with: Bed mobility, Transfers, Ambulation at home, Community ambulation, Stairs, Car transfers, Toilet transfers, Upper extremity bathing, Lower extremity bathing, Upper extremity dressing , Lower extremity dressing, Grooming and Driving Needs assistance with: none Dependent with: none Assistive devices utilized at baseline: none Services and Resources utilized at baseline: none, he and girlfriend share responsibilities in home OBJECTIVE: Musculoskeletal: Hand Dominance: right handed Range of motion/Strength: Right foot with wound vac in place. Moves right lower extremity off bed independently. Functional strength of bilateral upper extremities and left lower extremity, decreasedactivity tolerance but no focal deficits in strength. Mobility: Roll Left: Modified Independent Roll Right: Does not occur Supine to Sit:Modified Independent Sit to Supine: Modified Independent Scooting: Modified Independent Sit to Stand: Contact guard assistance Stand to Sit: Contact guard assistance Bed to/from chair: Contact guard assistance patient has been eating meals in bed Toilet Transfer: Setup assistance has been using urinal at bedside ASSESSMENT: Patient is day eight following hospital admission with right foot infection. Patient iss/p two surgeries; now arranging for discharge home with wound vac and IV antibiotics. Patient has had limited mobility in hospital room since admission, non-weight bearing right lower extremity. Patient appropriate for skilled physical therapy to address the stated deficits and to help achieve thestated goals. Plan of care and goals were discussed with this patient. Patient understands the prognosis, risks and benefits of physical therapy treatment and agrees with the physical therapy plan ofcare. Rehabilitation potential: Good Physical Therapy problem list: pain limiting function, safety awareness deficits, strength deficits, transfer deficits, ambulation deficits, balance deficits, and decreased activity tolerance Treatment goals: Patient will complete all transfers with modified independence in 5 days. Patient will ambulate 100-200 feet with assistive device and modified independence in 5 days. Patient will demonstrate understanding of home exercise program with modified independence in 5 days. buttermilk drier operator goal: Patient will discharge to least restrictive environment with appropriate gait aid for safe, functional transfers and ambulation. PLAN: Frequency: 5-7 times per week Duration: 7 days Treatments planned: bed mobility training, equipment training, functional training, gait training, patient education, safety education, self care, home management, therapeutic activities , therapeutic exercise, and transfer training TREATMENT PROVIDED: Patient was lying in bed on second attempt. Nursing had completed dressing change after patient ate lunch in bed. Patient partial sitting up in bed, noting bilateral hip/knee flexion. Patient was instructed to rest right leg on pillow rather than weight supported through right heel. This would allow the heel to off load as well as be in compliance with non-weight bearing of right lower extremity. Patient reported he has spoken with social media sr strategy manager regarding equipment needs. Patient believes his aunt is trying to obtain a 36 front wheeled walker for him to use at discharge. [facility] forms supporting need for front wheeled walker have been completed including education and training on use of front wheeled walker. finishing lunch meal. Agreeable to work with physical therapy for ambulation in hallway. Stand by assist provided with support of wound vac device. Patient ambulation 150 feet, standing rest breaks and reported fatigue with 100 feet. Therapist observed patient with improved ease of turning and backward steps to sit up in chair. Patient reports he has been walking in room using front wheeled walker, non-weight bearing right lower extremity but not into hallwayto increase activity tolerance as recommended. Patient was encouraged to be up in chair for meals and to walk to bathroom rather than use of urinal at bedside; confirmed with nursing. Patient workingwith Advisory Services Associate to coordinate services with the for discharge, including outpatient infusion therapy for daily antibiotics. TREATMENT SUMMARY: Gait trainin minutes Total time with patient: 14 minutes Ioana Aparicio DPT * Angel Coombs DPM - 06/16/2024 2:48 PM CDT Subjective 69-year-old male seen at bedside patient is 4 days status post irrigation and debridement of partial second ray amputation site right foot. Patient denies nausea vomiting fever chills chest pain calfpain and difficulty breathing. Objective Physical Exam Dermatological [...] 11.5 yesterday. Last Recorded Vitals Temp: [35.9 ??C (96.6 ??F)-37.1 ??C (98.7 ??F)] 35.9 ??C (96.6 ??F) Heart Rate: [91-98] 98 Resp: [16] 16 [...] remain nonweightbearing on his right foot and ambulatewith knee scooter. Medical management per hospitalist patient can be discharged from hospital as far as podiatry is concerned as long as he has a wound VAC to go home with and antibiotics have been set up for him. * Vilma Neves MD - 06/16/2024 1:34 PM CDT Please perform the following to the right foot on day of hospital discharge: 1) carefully remove all prior wraps and dressings 2) rinse the right foot ulcer with saline 3) Aquacel Ag as the primary dressing followed by ABD pad and hold in place with Danilo followed by 2 layer Tubigrip 4) Rooke boot whenever not on ambulating 5) if the dressings become soiled, saturated, or displaced, please remove the dressings and replaceas above Patient needs to be seen in the wound clinic 1 to 2 days after hospital discharge * Savanna Blas, RIGO - 06/16/2024 11:18 AM CDT Occupational Therapy Evaluation Patient name: Karin Davis Date of service: 06/16/24 Attending physician: Pina Bonilla MD Referring diagnosis: Right foot infection, A-fib, DM, right second toe amputation with debridement Reason for referral: ADL deficits, decreased mobility Date of Surgery/Incident: I&D on 06/08 and 06/12 Weightbearing Status: Non-weightbearing right lower extremity Past medical history: Past Medical History: Diagnosis Date Atrial fibrillation [...] syndrome in adult 02/09/2016 Presbyopia 03/15/2005 Stroke ([facility]) 05/23/2018 Type 2 diabetes mellitus with diabetic neuropathy, unspecified ([facility]) 09/22/2012 Unspecified systolic (congestive) heart failure ([facility]) 05/23/2018 Past Surgical History: Procedure Laterality Date FOOT AMPUTATION THROUGH METATARSAL Right 06/08/2024 Procedure: Right second toe amputation with wound debridement and incision and drainage. Possible transmetatarsal amputation with gastroc lengthening; Surgeon: Steve Lopez DPM; Location: [facility] OR; Service: Podiatry; Laterality: Right; INCISION AND DRAINAGE OF WOUND Right 06/12/2024 Procedure: INCISION AND DRAINAGE woth possible delayed primary closure right foot; Surgeon: Angel Coombs DPM; Location: [facility] OR; Service: Podiatry; Laterality: Right; SUBJECTIVE: Patient lying in hospital bed with right leg elevated on pillows and wound VAC in place. IV in place as well. Patient has been in the hospital since 06/06/2024 with a right foot infection and 2 debridements as well as second toe amputation. The patient denies concerns about returning home. Pain rating- Currently 0-4/10 Pain location-right foot Cognitive: Grossly intact Orientation: Oriented x 4 Affect: Appropriate Previous level of function: Home environment: Patient lives with his girlfriend in an apartment in [place]. There are no steps to enter. His apartment is on the main level. He has a tub shower combination with no seat, but he does have grab bars. He has a removable shower head, curtain, grab bars around/in shower that he has used prior. No adaptations to the toilet-no room for grab bars. He does not ambulate with any adaptive equipment. Patient is independent with all of his ADL tasks including dressing and bathing. He and his girlfriend share the cooking, cleaning, laundry. Patient manages his own finances and medications. He is retired. His girlfriend does the shopping. Patient does all of the driving, and travels in a pickup truck with a step up bar. For leisure, patient enjoys singing [employer] 4 nights a week and going for walks. OBJECTIVE: Range of motion: Bilateral upper extremity range of motion is normal Strength: Bilateral upper extremity strength is 5-5 throughout Patient is right-handed Sensation-neuropathy with numbness through both feet and ankles, hand sensation is normal Edema-mild edema in the right foot, but patient states it was much worse before he came to the hospital. Current Functional Status ADLs: Upper body dressing: Setup assistance Lower body dressing: Minimal assistance Tub/Shower transfers: Contact guard assistance Toilet transfers: Contact guard assistance Toileting: Contact guard assistance ASSESSMENT: Patient requires the skills of an occupational therapist to assess his ability to be safe and independent with ADLs and functional transfers while maintaining nonweightbearing status on right lower leg. Rehabilitation potential: Good Treatment Goals: 1.) Patient will complete all lower body dressing tasks with modified independence by dismissal 2.) Patient will verbalize understanding to correct car transfer technique by dismissal 3.)Patient will demonstrate and/or verbalize understanding to correct tub/shower transfer techniqueby dismissal 4.) Patient will perform toilet transfers and toileting tasks at a modified independent level by dismissal while maintaining nonweightbearing. PLAN: Frequency: 5-7 days/week Duration: Through dismissal Treatments planned: ADL Training/self care, functional training TREATMENT PROVIDED: The patient was greeted in bed this morning, wound vac on right foot. Wound vac is hospital device,the patient believes he will get a smaller one to return home with. He is able to mobilize out of bed with supervision, and verbalize his non weight bearing restrictions. Reviewed dressing equipment while seated at EOB. He does not demonstrate a need for this based on his ROM. Did not practice lower body dressing due to wound vac in place. He can don/doff socks. Progressed to education on tub shower transfer bench to ensure non weight bearing and safety with bathing. He believes he will have space for this in his bathroom. Provided education and training on safe transfer technique using tub shower transfer bench, simulated set up with minimal assistance provided for wound vac and verbal cues for non weight bearing. He will need to get specific bathing instructions for his wound vac (e.g. keep it dry/sponge bath only) from the team providing this device. He was provided with education that he could use this bench outside of the tub as a seat when completing grooming at the sink to ensur e he is adhering to his non weight bearing precautions. He was able to mobilize back into bed with contact guard assistance, and minimal assistance for wound vac management. Social work provided paperwork from [place] for DME to physical therapist. This was reviewed today, and filled out OT portion recommending tub transfer bench for home use. Returned to PT. Next session: Practice LE dressing (if smaller wound vac)/provide education on loose shorts that hecan guide tubing through, practice toilet transfers/education on use of a urinal if needed, review if walker bag is needed for home. TREATMENT SUMMARY: ADL training 20 minutes Total Treatment Time: 25 minutes Savanna Blas OT, CHT * Karley Bonner LSW - 06/16/2024 10:00 AM CDT [facility] continues to work with pt and the [facility] to obtain auth for services following discharge. Pt to continue with plan to come to [facility] Infusion suite for infusion services and will follow up as an outpatient with the wound clinic. [facility] to continue to assist. * Pina Bonilla MD - 06/16/2024 7:41 AM CDT INPATIENT PROGRESS NOTE SUBJECTIVE No complaints. Denies pain, doing well with NWB on RLE MEDICATIONS Current Facility-Administered Medications: acetaminophen (TYLENOL) tablet 1,000 mg, 1,000 mg, Oral, q6h PRN, Pina Bonilla MD, 1,000 mg at 06/14/24 0807 apixaban (ELIQUIS) tablet 5 mg, 5 mg, Oral, BID, Pina Bonilla MD, 5 mg at 06/16/24 0935 atorvastatin (LIPITOR) tablet 40 mg, 40 mg, Oral, Daily, Pina Bonilla MD, 40 mg at 06/16/24 0935 benzonatate (TESSALON) capsule 100 mg, 100 mg, Oral, TID PRN, Shantell Lewis MD carvedilol (COREG) tablet 25 mg, 25 mg, Oral, BID with meals, Pina Bonilla MD, 25 mg at 06/16/24 1742 dextrose (GLUTOSE) oral gel 40% (1 Tube = net wt. 37.5 gm containing 15 gm dextrose), 1 Tube, Oral,PRN OR dextrose 50 % solution 25 mL, 25 mL, Intravenous, PRN OR dextrose 10 % infusion 250 mL, 250 mL, Intravenous, q15 min PRN, Pina Bonilla MD dextrose (GLUTOSE) oral gel 40% (1 Tube = net wt. 37.5 gm containing 15 gm dextrose), 1 Tube, Oral,PRN, Pina Bonilla MD dextrose 50 % solution 25 mL, 25 mL, Intravenous, PRN OR dextrose 10 % infusion 250 mL, 250 mL,Intravenous, q15 min PRN OR Glucagon HCl (rDNA) injection 1 mg, 1 mg, Intramuscular, q15 min PRN, Pina Bonilla MD [Held by provider] dilTIAZem (CARDIZEM) immediate release tablet 60 mg, 60 mg, Oral, q6h, Shantell Lewis MD, 60 mg at 06/14/24 1424 diphenhydrAMINE (BENADRYL) tablet 25 mg, 25 mg, Oral, q6h PRN, Shantell Lewis MD, 25 mg at 06/10/24 1638 ertapenem (INVanz) 1 g in sodium chloride 0.9 % 50 mL OOLE-Pbvr-Xcu Plus, 1 g, Intravenous, q24h, Shantell Lewis MD, Last Rate: 100 mL/hr at 06/16/24 1639, 1 g at 06/16/24 1639 guaiFENesin (MUCINEX) 12 hr tablet 600 mg, 600 mg, Oral, BID PRN, Shantell Lewis MD, 600 mg at 06/08/24 0136 guaiFENesin-codeine (ROBITUSSIN-AC) 100-10 MG/5ML liquid 5 mL, 5 mL, Oral, q4h PRN, Shantell Lewis MD hydrocortisone 2.5 % ointment, , Topical, BID, Pina Bonilla MD, 1 application at 06/15/24 210 insulin glargine (LANTUS) inj pen 20 Units, 20 Units, Subcutaneous, Nightly, Pina Bonilla MD,20 Units at 06/15/24 232 insulin lispro (HumaLOG) injection 1-10 Units, 1-10 Units, Subcutaneous, TID with meals, Pina Bonilla MD, 6 Units at 06/16/24 1747 insulin lispro (HumaLOG) injection 1-26 Units, 1-26 Units, Subcutaneous, QID w/ meals & nightly, Shantell Lewis MD, 8 Units at 06/16/24 1756 insulin lispro (HumaLOG) injection 1-8 Units, 1-8 Units, Subcutaneous, Nightly, Pina Bonilla MD, 3 Units at 06/15/24 2323 oxyCODONE (ROXICODONE) immediate release tablet 10 mg, 10 mg, Oral, q4h PRN, 10 mg at 06/16/24 1256OR oxyCODONE (ROXICODONE) 5 MG/5ML solution 10 mg, 10 mg, Oral, q4h PRN, Shantell Lewis MD oxyCODONE (ROXICODONE) immediate release tablet 5 mg, 5 mg, Oral, q4h PRN, 5 mg at 06/16/24 0746 OR oxyCODONE (ROXICODONE) 5 MG/5ML solution 5 mg, 5 mg, Oral, q4h PRN, Shantell Lewis MD sodium chloride 0.9 % infusion, 75 mL/hr, Intravenous, Continuous, Shantell Lewis MD, Stopped at 06/12/24 1730 traMADol (ULTRAM) tablet 50 mg, 50 mg, Oral, q6h PRN, Pina Bonilla MD, 50 mg at 06/14/24 0807 PHYSICAL EXAMINATION VITAL SIGNS Temp: [35.9 ??C (96.6 ??F)-36.7 ??C (98.1 ??F)] 36.5 ??C (97.7 ??F) Heart Rate: [91-98] 93 Resp: [16] 16 BP: (115-132)/(84-94) 115/85 General Appearance: Alert, cooperative, no distress, appears stated age Head: Normocephalic, without obvious abnormality, atraumatic Eyes: PERRL, conjunctiva/corneas clear, EOM's intact Throat: MMM, no erythema Neck: Supple, symmetrical, trachea midline, no adenopathy Back: Symmetric, no curvature, ROM normal, no CVA tenderness Lungs: Clear to auscultation bilaterally, respirations unlabored Chest Wall: No tenderness or deformity Heart: Irregularly irregular, S1 and S2 normal, no murmur, rub or gallop Abdomen: Soft, non-tender, bowel sounds active all four quadrants, no masses, no organomegaly Extremities: Wound vac in place over right 2nd toe amputation Pulses: 2+ and symmetric all extremities Skin: Skin color, texture, turgor normal, no rashes or lesions Lymph nodes: Cervical, supraclavicular, and axillary nodes normal Neurologic: CNII-XII intact, normal strength, no tremor LABORATORY STUDIES Recent Results (from the past 24 hour(s)) POCT Precision glucose Collection Time: 06/15/24 11:19 PM Result Value Ref Range Glucose Blood, POC 232 (H) 70 - 100 mg/dL CBC ([facility]) Collection Time: 06/16/24 6:08 AM Result Value Ref Range WBC 10.2 3.5 - 10.5 K/uL RBC 5.36 4.30 - 5.70 M/uL Hemoglobin 15.9 13.5 - 17.5 g/dL Hematocrit 48.9 38.0 - 50.0 % Platelets 369 150 - 450 K/uL MCV 91.2 81.2 - 95.1 fL MCH 29.7 26.0 - 32.0 pg MCHC 32.5 32.0 - 36.0 g/dL RDW 14.7 11.8 - 15.6 % NRBC %, Automated 0 % NRBC Absolute, Autmated 0.00 K/uL Basic metabolic panel Collection Time: 06/16/24 6:08 AM Result Value Ref Range Sodium 136 135 - 145 mEq/L Potassium 4.3 3.5 - 5.1 mEq/L Chloride 100 98 - 107 mEq/L CO2 30 22 - 31 mmol/L Creatinine 1.13 0.60 - 1.40 mg/dL BUN 20 5 - 25 mg/dL Glucose 116 (H) 70 - 100 mg/dL Calcium, Total,S 9.1 8.4 - 10.2 mg/dL Anion Gap 6 4 - 13 Fasting? Unknown Estimated Glomerular Filtration Rate (eGFR) Collection Time: 06/16/24 6:08 AM Result Value Ref Range Estimated Glomerular Filtration Rate (eGFR) >60 POCT Precision glucose Collection Time: 06/16/24 6:55 AM Result Value Ref Range Glucose Blood, POC 121 (H) 70 - 100 mg/dL POCT Precision glucose Collection Time: 06/16/24 11:20 AM Result Value Ref Range Glucose Blood, POC 262 (H) 70 - 100 mg/dL POCT Precision glucose Collection Time: 06/16/24 4:39 PM Result Value Ref Range Glucose Blood, POC 273 (H) 70 - 100 mg/dL ASSESSMENT/PLAN Diabetic cellulitis with soft tissue abscess of [...] to continue on ertapenem for 4-6 weeks; PICC placed 06/15 Leukocytosis Trending down daily, WNL on 06/16 IDA resolved Renally dose medications Avoid nephrotoxic medications Trend CBC, BMP daily Atrial fibrillation on Eliquis Atrial Fibrillation with RVR Eliquis has been on hold for surgical procedures. Resumed discontinue lovenox Discontinue diltiazem Continue coreg; increased to 25mg bid Diabetes mellitus type 2, [id number]-[id number] patient's blood sugars are high on arrival and states they have been running in the 200s at home. BG still now at goal; increase lantus to 20 units Continue carb counting and sliding scale Sugars well controlled Diabetic diet HbA1c 9.0% HLD: Continue statin Full Code Disposition: plan for discharge once home wound vac arranged; OPAT for antibiotics completed Based on patient's medical issues and progress thus far, the patient will require continued hospitalization. Greater than 35 minutes of total time spent in patient's care such as (preparation/review of tests,obtaining/reviewing separately obtained history, medically appropriate examination/evaluation, counseling/educating patient/family/caregiver, ordering medications/tests/procedures, referring/communicating with other health rn patient care not separately reported, documentation, and independentlyinterpreting results not separately reported, communicating results to the patient/family/caregiver, and care coordination not separately reported). Pina Bonilla MD * Tania Freedman BSN - 06/16/2024 6:04 AM CDT Goals: Clinical Goals for the Shift: comfort, wound vac, elevation Stability of the patient: Moderately Stable - Low risk of patient condition declining or worsening End of Shift Summary: Slept well this shift. Prn oxy for pain. Awaiting wound vac [facility] to [facility] last evening * Karley Bonner LSW - 06/15/2024 6:07 PM CDT Pt is not ready for discharge on this date. The GA has been updated on pt Infusion needs upon discharge. Pt is still wanting to come to [facility] for treatment. Pt states his girlfriend or Aunt will plan to provide transportation for him. Paperwork for DME was provided to therapy department to complete for the GA to order. Awaiting wound care recommendations so this signwriter can coordinate with the [facility] on services. [facility] states [facility] up to 48 hours to approve. Medical team is aware. [facility] to continue to follow pt through discharge. * Pina Bonilla MD - 06/15/2024 2:38 PM CDT INPATIENT PROGRESS NOTE SUBJECTIVE Patient feels well. Denies pain. Denies need for SNF. Discussed with Dr. Coombs and Dr. Shubham Strickland: plan for discharge home with wound vac and IV antibiotics MEDICATIONS Current Facility-Administered Medications: acetaminophen (TYLENOL) tablet 1,000 mg, 1,000 mg, Oral, q6h PRN, Shantell Lewis MD, 1,000 mg at 06/14/24 0807 [START ON 06/16/2024] atorvastatin (LIPITOR) tablet 40 mg, 40 mg, Oral, Daily, Pina Bonilla MD benzonatate (TESSALON) capsule 100 mg, 100 mg, Oral, TID PRN, Shantell Lewis MD carvedilol (COREG) tablet 25 mg, 25 mg, Oral, BID with meals, Pina Bonilla MD, 25 mg at 06/15/24 0718 dextrose (GLUTOSE) oral gel 40% (1 Tube = net wt. 37.5 gm containing 15 gm dextrose), 1 Tube, Oral,PRN OR dextrose 50 % solution 25 mL, 25 mL, Intravenous, PRN OR dextrose 10 % infusion 250 mL, 250 mL, Intravenous, q15 min PRN, Shantell Lewis MD dextrose (GLUTOSE) oral gel 40% (1 Tube = net wt. 37.5 gm containing 15 gm dextrose), 1 Tube, Oral,PRN, Shantell Lewis MD dextrose 50 % solution 25 mL, 25 mL, Intravenous, PRN OR dextrose 10 % infusion 250 mL, 250 mL,Intravenous, q15 min PRN OR Glucagon HCl (rDNA) injection 1 mg, 1 mg, Intramuscular, q15 min PRN, Pina Bonilla MD [Held by provider] dilTIAZem (CARDIZEM) immediate release tablet 60 mg, 60 mg, Oral, q6h, Shantell Lewis MD, 60 mg at 06/14/24 1424 diphenhydrAMINE (BENADRYL) tablet 25 mg, 25 mg, Oral, q6h PRN, Shantell Lewis MD, 25 mg at 06/10/24 1638 enoxaparin (LOVENOX) syringe 40 mg, 40 mg, Subcutaneous, q24h ELAINA, Shantell Lewis MD, 40 mg at 06/15/24 0828 ertapenem (INVanz) 1 g in sodium chloride 0.9 % 50 mL WISU-Rdgu-Aqc Plus, 1 g, Intravenous, q24h, Shantell Lewis MD, Stopped at 06/14/24 1652 guaiFENesin (MUCINEX) 12 hr tablet 600 mg, 600 mg, Oral, BID PRN, Shantell Lewis MD, 600 mg at 06/08/24 0136 guaiFENesin-codeine (ROBITUSSIN-AC) 100-10 MG/5ML liquid 5 mL, 5 mL, Oral, q4h PRN, Shantell Lewis MD hydrocortisone 2.5 % ointment, , Topical, BID, Pina Bonilla MD, Given at 06/15/24 1008 insulin glargine (LANTUS) inj pen 20 Units, 20 Units, Subcutaneous, Nightly, Pina Bonilla MD,20 Units at 06/14/245 insulin lispro (HumaLOG) injection 1-10 Units, 1-10 Units, Subcutaneous, TID with meals, Shantell Lewis MD, 4 Units at 06/15/24 1253 insulin lispro (HumaLOG) injection 1-26 Units, 1-26 Units, Subcutaneous, QID w/ meals & nightly, Shantell Lewis MD, 13 Units at 06/15/24 1254 insulin lispro (HumaLOG) injection 1-8 Units, 1-8 Units, Subcutaneous, Nightly, Pina Bonilla MD, 7 Units at 06/14/245 oxyCODONE (ROXICODONE) immediate release tablet 10 mg, 10 mg, Oral, q4h PRN, 10 mg at 06/15/24 1013OR oxyCODONE (ROXICODONE) 5 MG/5ML solution 10 mg, 10 mg, Oral, q4h PRN, Shantell Lewis MD oxyCODONE (ROXICODONE) immediate release tablet 5 mg, 5 mg, Oral, q4h PRN, 5 mg at 06/14/24 1748 OR oxyCODONE (ROXICODONE) 5 MG/5ML solution 5 mg, 5 mg, Oral, q4h PRN, Shantell Lewis MD sodium chloride 0.9 % infusion, 75 mL/hr, Intravenous, Continuous, Shantell Lewis MD, Stopped at 06/12/24 1730 traMADol (ULTRAM) tablet 50 mg, 50 mg, Oral, q6h PRN, Shantell Lewis MD, 50 mg at 06/14/24 0807 PHYSICAL EXAMINATION VITAL SIGNS Temp: [36.1 ??C (96.9 ??F)-37 ??C (98.6 ??F)] 36.1 ??C (96.9 ??F) Heart Rate: [68-97] 97 Resp: [10-18] 10 BP: (110-136)/(74-98) 136/98 General Appearance: Alert, cooperative, no distress, appears stated age Head: Normocephalic, without obvious abnormality, atraumatic Eyes: PERRL, conjunctiva/corneas clear, EOM's intact Throat: MMM, no erythema Neck: Supple, symmetrical, trachea midline, no adenopathy Back: Symmetric, no curvature, ROM normal, no CVA tenderness Lungs: Clear to auscultation bilaterally, respirations unlabored Chest Wall: No tenderness or deformity Heart: Irregularly irregular, S1 and S2 normal, no murmur, rub or gallop Abdomen: Soft, non-tender, bowel sounds active all four quadrants, no masses, no organomegaly Extremities: Wound vac in place over right 2nd toe amputation Pulses: 2+ and symmetric all extremities Skin: Skin color, texture, turgor normal, no rashes or lesions Lymph nodes: Cervical, supraclavicular, and axillary nodes normal Neurologic: CNII-XII intact, normal strength, no tremor LABORATORY STUDIES Recent Results (from the past 24 hour(s)) POCT Precision glucose Collection Time: 06/14/24 5:47 PM Result Value Ref Range Glucose Blood, POC 94 70 - 100 mg/dL POCT Precision glucose Collection Time: 06/14/24 9:23 PM Result Value Ref Range Glucose Blood, POC 352 (H) 70 - 100 mg/dL CBC ([facility]) Collection Time: 06/15/24 6:00 AM Result Value Ref Range WBC 11.5 (H) 3.5 - 10.5 K/uL RBC 5.04 4.30 - 5.70 M/uL Hemoglobin 14.9 13.5 - 17.5 g/dL Hematocrit 46.2 38.0 - 50.0 % Platelets 358 150 - 450 K/uL MCV 91.7 81.2 - 95.1 fL MCH 29.6 26.0 - 32.0 pg MCHC 32.3 32.0 - 36.0 g/dL RDW 14.9 11.8 - 15.6 % NRBC %, Automated 0 % NRBC Absolute, Autmated 0.00 K/uL Basic metabolic panel Collection Time: 06/15/24 6:00 AM Result Value Ref Range Sodium 136 135 - 145 mEq/L Potassium 4.0 3.5 - 5.1 mEq/L Chloride 100 98 - 107 mEq/L CO2 30 22 - 31 mmol/L Creatinine 1.05 0.60 - 1.40 mg/dL BUN 17 5 - 25 mg/dL Glucose 117 (H) 70 - 100 mg/dL Calcium, Total,S 8.8 8.4 - 10.2 mg/dL Anion Gap 6 4 - 13 Fasting? Yes Estimated Glomerular Filtration Rate (eGFR) Collection Time: 06/15/24 6:00 AM Result Value Ref Range Estimated Glomerular Filtration Rate (eGFR) >60 POCT Precision glucose Collection Time: 06/15/24 7:21 AM Result Value Ref Range Glucose Blood, POC 135 (H) 70 - 100 mg/dL POCT Precision glucose Collection Time: 06/15/24 11:15 AM Result Value Ref Range Glucose Blood, POC 221 (H) 70 - 100 mg/dL ASSESSMENT/PLAN Diabetic cellulitis with soft tissue abscess of [...] to continue on ertapenem for 4-6 weeks; PICC ordered today Leukocytosis Trending down IDA resolved Renally dose medications Avoid nephrotoxic medications Trend CBC, BMP daily Atrial fibrillation on Eliquis Atrial Fibrillation with RVR Eliquis has been on hold for surgical procedures. Resume now discontinue lovenox Discontinue diltiazem Continue coreg; increased to 25mg bid Diabetes mellitus type 2, [id number]-cihcornmc patient's blood sugars are high on arrival and states they have been running in the 200s at home. BG still now at goal; increase lantus to 20 units Continue carb counting and sliding scale Sugars well controlled Diabetic diet HbA1c 9.0% HLD: Continue statin Full Code Disposition: plan for discharge once home wound vac arranged Based on patient's medical issues and progress thus far, the patient will require continued hospitalization. Greater than 40 minutes of total time spent in patient's care such as (preparation/review of tests,obtaining/reviewing separately obtained history, medically appropriate examination/evaluation, counseling/educating patient/family/caregiver, ordering medications/tests/procedures, referring/communicating with other health rn patient care not separately reported, documentation, and independentlyinterpreting results not separately reported, communicating results to the patient/family/caregiver, and care coordination not separately reported). Pina Bonilla MD * Ioana Aparicio DPT - 06/15/2024 12:47 PM CDT Physical Therapy Evaluation Patient name:Karin Davis Date of service: 06/15/2024 Attending provider: Pina Bonilla MD Reason for referral: Decreased mobility, Decreased safety, Patient/ Caregiver education, and Abnormality of gait Date of Surgery: I&D on 06/08 (Right second toe amputation, right second metatarsal head resection, incision and drainage, wound debridement) and 06/12 right foot I&D Precautions: wound vac right lower extremity Weight Bearing Status: non-weight bearing right lower extremity Vitals: 06/15/24 0715 BP: (!) 136/98 Pulse: 97 Resp: 10 Temp: (!) 36.1 ??C (96.9 ??F) SpO2: 95% Past medical history: Past Medical History: Diagnosis Date Atrial fibrillation ([facility]) 02/03/2016 Compression fracture of vertebra ([facility]) 02/04/2017 Confusion 05/20/2018 Dizziness 08/05/2012 Essential hypertension [...] syndrome in adult 02/09/2016 Presbyopia 03/15/2005 Stroke ([facility]) 05/23/2018 Type 2 diabetes mellitus with diabetic neuropathy, unspecified ([facility]) 09/22/2012 Unspecified systolic (congestive) heart failure ([facility]) 05/23/2018 SUBJECTIVE: Patient is 69 year old male admitted to hospital 06/06/2024 with pain and redness in right foot for 3 weeks. An MRI of the right foot was obtained which showed significant cellulitis and myositis, as well as concern for a soft tissue abscess. Podiatry was consulted, and the patient was admitted for IV antibiotics and further care under inpatient status. Patient had surgical I&D on 06/08 (Right second toe amputation, right second metatarsal head resection, incision and drainage, wound debridement) and 06/12 right foot I&D. Wound vac was placed 06/13/2024. Patient working on plans to discharge home with wound vac and IV antibiotics Medical Problems/diagnoses: Principal Problem: Infection of right foot Treatment diagnosis: Impaired gait and mobility Safety/ Judgement: intact Basic command following: intact Affect: cooperative and flat Pain: Pain present- Yes Pain location- right foot Pain quality- pain level at rest 2/10, with activity 2/10 Previous level of function: Home environment: Lives in- Private residence: apartment, handicapped accessible, main floor, no stairs Lives with significant other Prior functional status: Independent with: Bed mobility, Transfers, Ambulation at home, Community ambulation, Stairs, Car transfers, Toilet transfers, Upper extremity bathing, Lower extremity bathing, Upper extremity dressing , Lower extremity dressing, Grooming and Driving Needs assistance with: none Dependent with: none Assistive devices utilized at baseline: none Services and Resources utilized at baseline: none, he and girlfriend share responsibilities in home OBJECTIVE: Musculoskeletal: Hand Dominance: right handed Range of motion/Strength: Right foot with wound vac in place. Moves right lower extremity off bed independently. Functional strength of bilateral upper extremities and left lower extremity, decreasedactivity tolerance but no focal deficits in strength. Mobility: Roll Left: Modified Independent Roll Right: Does not occur Supine to Sit:Modified Independent Sit to Supine: Modified Independent Scooting: Modified Independent Sit to Stand: Contact guard assistance Stand to Sit: Contact guard assistance Bed to/from chair: Contact guard assistance patient has been eating meals in bed Toilet Transfer: Setup assistance has been using urinal at bedside ASSESSMENT: Patient is day eight following hospital admission with right foot infection. Patient iss/p two surgeries; now arranging for discharge home with wound vac and IV antibiotics. Patient has had limited mobility in hospital room since admission, non-weight bearing right lower extremity. Patient appropriate for skilled physical therapy to address the stated deficits and to help achieve thestated goals. Plan of care and goals were discussed with this patient. Patient understands the prognosis, risks and benefits of physical therapy treatment and agrees with the physical therapy plan ofcare. Rehabilitation potential: Good Physical Therapy problem list: pain limiting function, safety awareness deficits, strength deficits, transfer deficits, ambulation deficits, balance deficits, and decreased activity tolerance Treatment goals: Patient will complete all transfers with modified independence in 5 days. Patient will ambulate 100-200 feet with assistive device and modified independence in 5 days. Patient will demonstrate understanding of home exercise program with modified independence in 5 days. buttermilk drier operator goal: Patient will discharge to least restrictive environment with appropriate gait aid for safe, functional transfers and ambulation. PLAN: Frequency: 5-7 times per week Duration: 7 days Treatments planned: bed mobility training, equipment training, functional training, gait training, patient education, safety education, self care, home management, therapeutic activities , therapeutic exercise, and transfer training TREATMENT PROVIDED: Patient was sitting up in bed, finishing lunch meal. Agreeable to work with physical therapy. Patient reports he has been walking in room using front wheeled walker, non-weight bearing right lower extremity. Patient stated he has to have help due to wound vac and easier to stay in bed, including use of urinal. Patient ambulation with therapist assisting with wound vac. Patientambulation 150 feet, standing rest breaks and reported fatigue with 100 feet. Patient remained non-weight bearing with intermittent cueing. Patient followed instructions for turning with walker to maintain balance. Verbal cueing for safe backward steps to chair. Patient cued to use upper extremity support from chair for sit/stand rather than walker. Patient was encouraged to be up in chair for meals and to walk to bathroom rather than use of urinal at bedside; confirmed with nursing. Patient reported he may have access to front wheeled walker from a local [employer]. Patient could consider a wheelchair for longer distances but not for use in his apartment. Patient feels he will be able to manage in apartment at discharge with assist of his girlfriend. Patient verbalized understanding he should not be driving while non-weight bearing with right lower extremity. TREATMENT SUMMARY: Initial Evaluation: 10 minutes Moderate- Patient presents with 1-2 personal factors that may affect course of care, today's examination addressed 3 or more elements, and/or patient has an evolving clinical presentation Gait trainin minutes Self Care/Home Management:8 minutes Total time with patient: 30 minutes Ioana Aparicio DPT * Angel Coombs DPM - 06/15/2024 12:15 PM CDT Subjective 69-year-old male seen at bedside. Patient 3 days status post I&D of the right foot partial second ray amputation site patient denies nausea vomiting fever chills chest pain calf pain and difficulty breathing and overall he is feeling better. Objective Physical Exam Patient was alert and oriented x 3 and in no acute distress Dermatological examination revealed skin edges were not macerated around the wound VAC, we checked the wound VAC and it was still well adhered to the skin and had no signs of leakage. Labs: White blood cell count today was 11.5 Cultures taken intraoperatively 06/12/2024 showed Staphylococcus aureus that was susceptible to all antibiotics tested including clindamycin erythromycin oxacillin tetracycline and Bactrim Last Recorded Vitals Temp: [36.1 ??C (96.9 ??F)-37 ??C (98.6 ??F)] 36.1 ??C (96.9 ??F) Heart Rate: [68-97] 97 Resp: [10-18] 10 BP: (110-136)/(74-98) 136/98 Assessment/Plan Principal Problem: Infection of right foot Patient was examined and evaluated left wound VAC intact was placed on Saturday so its only been on2 days would like for patient to go home on wound VAC but are awaiting evaluation from advanced wound [facility]. Patient to continue IV antibiotics discussed patient with Dr. Shubham Heard recommends patient be on IV antibiotics. Patient should get a PICC line before discharge patient was agreeable to this. Podiatry to continue to follow medical management per hospitalist. * Afia Zamarripa OTR - 06/15/2024 7:57 AM CDT Occupational Therapy Evaluation Patient name: Karin Davis Date of service: 06/15/24 Attending physician: Pina Bonilla MD Referring diagnosis: Right foot infection, A-fib, DM, right second toe amputation with debridement Reason for referral: ADL deficits, decreased mobility Date of Surgery/Incident: I&D on 06/08 and 06/12 Weightbearing Status: Non-weightbearing right lower extremity Past medical history: Past Medical History: Diagnosis Date Atrial fibrillation [...] syndrome in adult 02/09/2016 Presbyopia 03/15/2005 Stroke ([facility]) 05/23/2018 Type 2 diabetes mellitus with diabetic neuropathy, unspecified ([facility]) 09/22/2012 Unspecified systolic (congestive) heart failure ([facility]) 05/23/2018 Past Surgical History: Procedure Laterality Date FOOT AMPUTATION THROUGH METATARSAL Right 06/08/2024 Procedure: Right second toe amputation with wound debridement and incision and drainage. Possible transmetatarsal amputation with gastroc lengthening; Surgeon: Steve Lopez DPM; Location: [facility] OR; Service: Podiatry; Laterality: Right; INCISION AND DRAINAGE OF WOUND Right 06/12/2024 Procedure: INCISION AND DRAINAGE woth possible delayed primary closure right foot; Surgeon: Angel Coombs DPM; Location: [facility] OR; Service: Podiatry; Laterality: Right; SUBJECTIVE: Patient lying in hospital bed with right leg elevated on pillows and wound VAC in place. IV in place as well. Patient has been in the hospital since 06/06/2024 with a right foot infection and 2 debridements as well as second toe amputation. Pain rating- Currently 0-4/10 Pain location-right foot Cognitive: Grossly intact Orientation: Oriented x 4 Affect: Appropriate Previous level of function: Home environment: Patient lives with his girlfriend in an apartment in [place]. There are no steps to enter. His apartment is on the main level. He has a tub shower combination with no seat, but he does have grab bars. No adaptations to the toilet. He does not ambulate with any adaptive equipment. Patient is independent with all of his ADL tasks including dressing and bathing. He and his girlfriend share the cooking, cleaning, laundry. Patient manages his own finances and medications. He is retired. His girlfrienddoes the shopping. Patient does all of the driving, and travels in a pickup truck with a step up bar. For leisure, patient enjoys singing croLumenzy 4 nights a week and going for walks. OBJECTIVE: Range of motion: Bilateral upper extremity range of motion is normal Strength: Bilateral upper extremity strength is 5-5 throughout Patient is right-handed Sensation-neuropathy with numbness through both feet and ankles, hand sensation is normal Edema-mild edema in the right foot, but patient states it was much worse before he came to the hospital. Current Functional Status ADLs: Upper body dressing: Setup assistance Lower body dressing: Minimal assistance Tub/Shower transfers: Contact guard assistance Toilet transfers: Contact guard assistance Toileting: Contact guard assistance ASSESSMENT: Patient requires the skills of an occupational therapist to assess his ability to be safe and independent with ADLs and functional transfers while maintaining nonweightbearing status on right lower leg. Rehabilitation potential: Good Treatment Goals: 1.) Patient will complete all lower body dressing tasks with modified independence by dismissal 2.) Patient will verbalize understanding to correct car transfer technique by dismissal and Patientwill demonstrate and/or verbalize understanding to correct tub/shower transfer technique by dismissal 3.) Patient will perform toilet transfers and toileting tasks at a modified independent level by dismissal while maintaining nonweightbearing. PLAN: Frequency: 5-7 days/week Duration: Through dismissal Treatments planned: ADL Training/self care, functional training TREATMENT PROVIDED: Functional Training: Patient able to go from supine to sitting edge of the bed with no physical assistance required. Standing up required verbal cues to push up from the bed versus pull from the walker. Patient able to stand at the walker and ambulate inside of his room (due to hooked up to the wound VAC) x 3 minutes and 45 seconds. Patient's exertion level was rated at 4/10 afterward. Patient was able to maintain nonweightbearing on the right lower leg after therapist provided instruction with this. He did require1 cue when he was going to sit down as he placed his right foot on the floor. Stand to sit requiredverbal cue as patient did not reach back for the bed. TREATMENT SUMMARY: Initial Evaluation: 10 minutes Low- Patient presents with no personal factors that may affect course of care, today's examination addressed at least 1-2 elements, and/or patient has a stable clinical presentation Functional training, 1 unit - 15 minutes Total Treatment Time: 25 minutes XENA Cummings * Pina Bonilla MD - 06/14/2024 10:34 AM CDT INPATIENT PROGRESS NOTE SUBJECTIVE Patient has no complaints, denies pain. Discussed plan with Dr. Coombs. Plan for wound VAC placement tomorrow. Tissue cultures from his last surgery have not grown any bacteria. Anticipate home this week. MEDICATIONS Current Facility-Administered Medications: acetaminophen (TYLENOL) tablet 1,000 mg, 1,000 mg, Oral, q6h PRN, Shantell Lewis MD, 1,000 mg at 06/14/24 0807 atorvastatin (LIPITOR) tablet 40 mg, 40 mg, Oral, Daily, Shantell Lewis MD, 40 mg at 06/14/24 0807 benzonatate (TESSALON) capsule 100 mg, 100 mg, Oral, TID PRN, Shantell Lewis MD dextrose (GLUTOSE) oral gel 40% (1 Tube = net wt. 37.5 gm containing 15 gm dextrose), 1 Tube, Oral,PRN OR dextrose 50 % solution 25 mL, 25 mL, Intravenous, PRN OR dextrose 10 % infusion 250 mL, 250 mL, Intravenous, q15 min PRN, Shantell Lewis MD dextrose (GLUTOSE) oral gel 40% (1 Tube = net wt. 37.5 gm containing 15 gm dextrose), 1 Tube, Oral,PRN, Shantell Lewis MD dextrose 50 % solution 25 mL, 25 mL, Intravenous, PRN OR dextrose 10 % infusion 250 mL, 250 mL,Intravenous, q15 min PRN OR Glucagon HCl (rDNA) injection 1 mg, 1 mg, Intramuscular, q15 min PRN, Shantell Lewis MD dilTIAZem (CARDIZEM) immediate release tablet 60 mg, 60 mg, Oral, q6h, Shantell Lewis MD, 60mg at 06/14/24 1424 diphenhydrAMINE (BENADRYL) tablet 25 mg, 25 mg, Oral, q6h PRN, Shantell Lewis MD, 25 mg at 06/10/24 1638 enoxaparin (LOVENOX) syringe 40 mg, 40 mg, Subcutaneous, q24h ELAINA, Shantell Lewis MD, 40 mg at 06/14/24 0806 ertapenem (INVanz) 1 g in sodium chloride 0.9 % 50 mL [id number] Plus, 1 g, Intravenous, q24h, Shantell Lewis MD, Last Rate: 100 mL/hr at 06/13/24 1604, 1 g at 06/13/24 1604 guaiFENesin (MUCINEX) 12 hr tablet 600 mg, 600 mg, Oral, BID PRN, Shantell Lewis MD, 600 mg at 06/08/24 0136 guaiFENesin-codeine (ROBITUSSIN-AC) 100-10 MG/5ML liquid 5 mL, 5 mL, Oral, q4h PRN, Shantell Lewis MD hydrocortisone 2.5 % ointment, , Topical, BID, Pina Bonilla MD, Given at 06/14/24 1030 insulin glargine (LANTUS) inj pen 20 Units, 20 Units, Subcutaneous, Nightly, Shantell Lewis MD, 20 Units at 06/13/24 2059 insulin lispro (HumaLOG) injection 1-10 Units, 1-10 Units, Subcutaneous, TID with meals, Shantell Lewis MD, 1 Units at 06/14/24 1345 insulin lispro (HumaLOG) injection 1-26 Units, 1-26 Units, Subcutaneous, QID w/ meals & nightly, Shantell Lewis MD, 14 Units at 06/14/24 1348 insulin lispro (HumaLOG) injection 1-8 Units, 1-8 Units, Subcutaneous, Nightly, Shantell Lewis MD, 4 Units at 06/13/24 2100 oxyCODONE (ROXICODONE) immediate release tablet 10 mg, 10 mg, Oral, q4h PRN, 10 mg at 06/14/24 0036OR oxyCODONE (ROXICODONE) 5 MG/5ML solution 10 mg, 10 mg, Oral, q4h PRN, Shantell Lewis MD oxyCODONE (ROXICODONE) immediate release tablet 5 mg, 5 mg, Oral, q4h PRN, 5 mg at 06/11/248 OR oxyCODONE (ROXICODONE) 5 MG/5ML solution 5 mg, 5 mg, Oral, q4h PRN, Shantell Lewis MD sodium chloride 0.9 % infusion, 75 mL/hr, Intravenous, Continuous, Shantell Lewis MD, Stopped at 06/12/24 1730 traMADol (ULTRAM) tablet 50 mg, 50 mg, Oral, q6h PRN, Shantell Lewis MD, 50 mg at 06/14/24 0807 PHYSICAL EXAMINATION VITAL SIGNS Temp: [36.4 ??C (97.5 ??F)-36.8 ??C (98.2 ??F)] 36.4 ??C (97.5 ??F) Heart Rate: [72-88] 88 Resp: [16-18] 18 BP: (102-134)/(73-93) 119/78 General Appearance: Alert, cooperative, no distress, appears stated age Head: Normocephalic, without obvious abnormality, atraumatic Eyes: PERRL, conjunctiva/corneas clear, EOM's intact Throat: MMM, no erythema Neck: Supple, symmetrical, trachea midline, no adenopathy Back: Symmetric, no curvature, ROM normal, no CVA tenderness Lungs: Clear to auscultation bilaterally, respirations unlabored Chest Wall: No tenderness or deformity Heart: Irregularly irregular, S1 and S2 normal, no murmur, rub or gallop Abdomen: Soft, non-tender, bowel sounds active all four quadrants, no masses, no organomegaly Extremities: Wound vac in place over right 2nd toe amputation Pulses: 2+ and symmetric all extremities Skin: Skin color, texture, turgor normal, no rashes or lesions Lymph nodes: Cervical, supraclavicular, and axillary nodes normal Neurologic: CNII-XII intact, normal strength, no tremor LABORATORY STUDIES Recent Results (from the past 24 hour(s)) POCT Precision glucose Collection Time: 06/13/24 5:36 PM Result Value Ref Range Glucose Blood, POC 98 70 - 100 mg/dL POCT Precision glucose Collection Time: 06/13/24 8:59 PM Result Value Ref Range Glucose Blood, POC 257 (H) 70 - 100 mg/dL CBC ([facility]) Collection Time: 06/14/24 5:45 AM Result Value Ref Range WBC 12.1 (H) 3.5 - 10.5 K/uL RBC 5.04 4.30 - 5.70 M/uL Hemoglobin 15.1 13.5 - 17.5 g/dL Hematocrit 47.3 38.0 - 50.0 % Platelets 396 150 - 450 K/uL MCV 93.8 81.2 - 95.1 fL MCH 30.0 26.0 - 32.0 pg MCHC 31.9 (L) 32.0 - 36.0 g/dL RDW 15.2 11.8 - 15.6 % NRBC %, Automated 0 % NRBC Absolute, Autmated 0.00 K/uL Basic metabolic panel Collection Time: 06/14/24 5:45 AM Result Value Ref Range Sodium 138 135 - 145 mEq/L Potassium 4.2 3.5 - 5.1 mEq/L Chloride 101 98 - 107 mEq/L CO2 31 22 - 31 mmol/L Creatinine 1.03 0.60 - 1.40 mg/dL BUN 20 5 - 25 mg/dL Glucose 142 (H) 70 - 100 mg/dL Calcium, Total,S 8.9 8.4 - 10.2 mg/dL Anion Gap 6 4 - 13 Fasting? Yes Estimated Glomerular Filtration Rate (eGFR) Collection Time: 06/14/24 5:45 AM Result Value Ref Range Estimated Glomerular Filtration Rate (eGFR) >60 POCT Precision glucose Collection Time: 06/14/24 6:27 AM Result Value Ref Range Glucose Blood, POC 139 (H) 70 - 100 mg/dL POCT Precision glucose Collection Time: 06/14/24 11:13 AM Result Value Ref Range Glucose Blood, POC 154 (H) 70 - 100 mg/dL ASSESSMENT/PLAN Diabetic cellulitis with soft tissue abscess of [...] persistently elevated Beginning to trend downward today IDA resolved Renally dose medications Avoid nephrotoxic medications Trend CBC, BMP daily Atrial fibrillation on Eliquis Atrial Fibrillation with RVR Eliquis has been on hold for surgical procedures. Patient is scheduled for wound VAC placement tomorrow on 06/15/2024. Will resume Eliquis postoperatively Continue lovenox Oral diltiazem added; 60mg q6h. Patient's HR better controlled now Continue coreg; increased to 25mg bid Diabetes mellitus type 2, [id number]-kdhrcptuv patient's blood sugars are high on arrival and states they have been running in the 200s at home. BG still now at goal; increase lantus to 20 units Continue carb counting and sliding scale Sugars well controlled Diabetic diet HbA1c 9.0% HLD: Continue statin DVT: Lovenox Full Code Based on patient's medical issues and progress thus far, the patient will require continued hospitalization. Greater than 35 minutes of total time spent in patient's care such as (preparation/review of tests,obtaining/reviewing separately obtained history, medically appropriate examination/evaluation, counseling/educating patient/family/caregiver, ordering medications/tests/procedures, referring/communicating with other health rn patient care not separately reported, documentation, and independentlyinterpreting results not separately reported, communicating results to the patient/family/caregiver, and care coordination not separately reported). Pina Bonilla MD * Angel Coombs DPM - 06/14/2024 10:23 AM CDT Subjective Patient is a 69-year-old male seen at bedside patient is 2 days status post irrigation and debridement of the right foot wound at the amputation site of the partial second ray amputation. Patient denies nausea vomiting fever chills chest pain calf pain and difficulty breathing. Objective Physical Exam Patient was alert and oriented x 3 and in no acute distress. Dermatological examination revealed that the wound on the right foot at the partial second ray amputation site was covered with a wound VAC that had no leakage and was properly placed. Erythema and edema have decreased in the right foot since yesterday. Vascular examination: Capillary refill time on toes 1, 3 for 5 of the right foot with less than 3 seconds Last Recorded Vitals Temp: [36.2 ??C (97.2 ??F)-36.8 ??C (98.2 ??F)] 36.4 ??C (97.5 ??F) Heart Rate: [68-88] 88 Resp: [16-18] 18 BP: (102-134)/(71-93) 119/78 Labs: White blood cell count today was 12.1 down from 16.2 yesterday Cultures: Aerobic cultures showed many coag positive staph species in the aerobic culture this is apreliminary result with ID and sensitivity to follow this is from the culture on 06/12/2024 Anaerobic cultures showed no organisms seen and no white blood cells seen on initial Gram stain final culture results are pending Assessment/Plan Principal Problem: Infection of right foot 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 Diabetes mellitus Diabetic polyneuropathy Patient was examined and evaluated we left the wound VAC in place as it was just placed yesterday. Did not show any signs of leakage and there was no maceration on the skin around it so should be left in place at least until tomorrow or the next day. We consulted Dr. Díaz for advanced wound care procedures to aid in healing of the wound. Patient to remain nonweightbearing on the right foot we did consult physical therapy and Occupational Therapy to make sure patient has the necessary toolsfor success to successfully stay off of the right foot well he is at home after discharge from the hospital. 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 Patient was agreeable to this and said that he would be willing to stay in a half-way facility if need be. This would be helpful for him to continue getting his wound VAC care and staying off of the foot. If however he can do this at home per OT and PT shoaib recommend discharging him home. Medical management will continue to be handled per hospitalist. * Tania Freedman BSN - 06/14/2024 4:53 AM CDT Problem: Pain - Adult Goal: Verbalizes/displays adequate comfort level or baseline comfort level Outcome: Progressing Problem: Infection - Adult Goal: Absence of infection during hospitalization Outcome: Progressing Goal: Absence of fever/infection during anticipated neutropenic period Outcome: Progressing Problem: Safety Adult - Fall Goal: Free from fall injury Outcome: Progressing Problem: Discharge Planning Goal: Discharge to home or other facility with appropriate resources Outcome: Progressing Problem: Knowledge Deficit Goal: Patient/family/caregiver demonstrates understanding of disease process, treatment plan, medications, and discharge instructions Outcome: Progressing Problem: Potential for Compromised Skin Integrity Goal: Skin Integrity is Maintained or Improved Outcome: Progressing Goal: Nutritional status is improving Outcome: Progressing Problem: Urinary Incontinence Goal: Perineal skin integrity is maintained or improved Outcome: Progressing Problem: Glucose Imbalance Goal: Clinical indication of glucose balance is achieved Outcome: Progressing Goal: Patient's discharge needs are met Outcome: Progressing Goals: Clinical Goals for the Shift: shower, up in chair Stability of the patient: Moderately Stable - Low risk of patient condition declining or worsening End of Shift Summary: Patient slept well this noc. Wound vac remains in place. Oxy and tramadol forpain * Angel Coombs DPM - 06/13/2024 12:09 PM CDT Subjective 69-year-old male was seen at bedside patient is 1 day status post irrigation and debridement of hisright foot patient relates he is feeling better does have some pain in his right foot where the debridement was done but denies having any nausea vomiting fever chills chest pain calf pain or difficulty breathing. Objective Physical Exam Dermatological examination revealed the wound at the amputation site of the partial second ray amputation site was still open there was exposed bone but there was no purulence no malodor no signs of infection and no CESARIO marginal erythema. There was healthy bleeding tissue in the base of the wound. Labs: Last Recorded Vitals Temp: [36.2 ??C (97.2 ??F)-36.5 ??C (97.7 ??F)] 36.2 ??C (97.2 ??F) Heart Rate: [62-104] 80 Resp: [15-21] 18 BP: (101-118)/(70-84) 111/84 CBC to see with differential today showed a white blood cell count of 16.2 up from 14.4 yesterday Anaerobic cultures taken yesterday are pending final results but so far showed nothing on initial Gram stain Aerobic cultures taken yesterday showed nothing on initial Gram stain but final results are pending Assessment/Plan Principal Problem: Infection of right foot Patient 1 day status post irrigation and debridement of the right foot Plan: Patient was examined and evaluated dressing on the wound of the right foot was changed today we removed the iodoform packing and examined the wound base which was healthy and bleeding we replaced it with 1/2 inch iodoform and then dressed it with 4 x 4's Curlex and Volodymyr wrap. We spoke to the patient and his family and told them that there are couple of options going forward 1 would be to go to a transmetatarsal amputation which has the advantage of likely healing faster getting him walkingsooner on the foot another option would be to continue IV antibiotics dressed the wound with a wound VAC to get granulation tissue to grow and and fill in and then grafted eventually patient related he wanted to try this 1 we told him that there is a risk that this does not work and he can get an infection and wind up having a transmetatarsal amputation anyhow and he related he understood that but wanted to do it this way first patient was told we will do this for him we will put in an order for a wound VAC for the right foot and a consultation for advanced wound care patient was agreeable tothis. * Shantell Lewis MD - 06/13/2024 9:35 AM CDT Subjective No acute events overnight. Patient without complaint this morning. He denies significant pain or SOB. . Denies chest pain, nausea, vomiting, or diarrhea. Yesterday, patient went back to the OR with podiatry for another I&D. In discussing the case with podiatry following the surgery, it appears that the patient may unfortunately need a transmetatarsal amputation, and will need to remain in the hospital over the weekend, likely with returning to the OR on Saturday and will need further decision regarding definitive treatment for his extensive infection. I did discuss this with him this AM, and podiatry to see today and further discuss as well. ROS: All complete systems reviewed and negative except as above Objective Physical Exam Visit Vitals BP 111/84 Pulse 80 Temp 36.2 ??C (97.2 ??F) Resp 18 Ht 1.854 m (6' 0.99) Wt 89.6 kg (197 lb 8.5 oz) SpO2 95% BMI 26.07 kg/m?? Smoking Status Never BSA 2.15 m?? Heart Rate: 80 Resp: 18 BP: 111/84 Temp: 36.2 ??C (97.2 ??F) Weight: 89.6 kg (197 lb 8.5 oz) General Appearance: Alert, cooperative, no distress, appears stated age Head: Normocephalic, without obvious abnormality, atraumatic Eyes: PERRL, conjunctiva/corneas clear, EOM's intact Throat: MMM, no erythema Neck: Supple, symmetrical, trachea midline, no adenopathy Back: Symmetric, no curvature, ROM normal, no CVA tenderness Lungs: Clear to auscultation bilaterally, respirations unlabored Chest Wall: No tenderness or deformity Heart: Irregularly irregular, S1 and S2 normal, no murmur, rub or gallop Abdomen: Soft, non-tender, bowel sounds active all four quadrants, no masses, no organomegaly Extremities: Right foot wrapped postoperatively Pulses: 2+ and symmetric all extremities Skin: Skin color, texture, turgor normal, no rashes or lesions Lymph nodes: Cervical, supraclavicular, and axillary nodes normal Neurologic: CNII-XII intact, normal strength, no tremor Labs Recent Results (from the past 24 hour(s)) POCT Precision glucose Collection Time: 06/12/24 11:59 AM Result Value Ref Range Glucose Blood, POC 177 (H) 70 - 100 mg/dL POCT Precision glucose Collection Time: 06/12/24 6:32 PM Result Value Ref Range Glucose Blood, POC 120 (H) 70 - 100 mg/dL POCT Precision glucose Collection Time: 06/12/24 7:12 PM Result Value Ref Range Glucose Blood, POC 161 (H) 70 - 100 mg/dL POCT Precision glucose Collection Time: 06/13/24 12:06 AM Result Value Ref Range Glucose Blood, POC 292 (H) 70 - 100 mg/dL CBC ([facility]) Collection Time: 06/13/24 5:00 AM Result Value Ref Range WBC 16.2 (H) 3.5 - 10.5 K/uL RBC 5.00 4.30 - 5.70 M/uL Hemoglobin 14.8 13.5 - 17.5 g/dL Hematocrit 46.7 38.0 - 50.0 % Platelets 382 150 - 450 K/uL MCV 93.4 81.2 - 95.1 fL MCH 29.6 26.0 - 32.0 pg MCHC 31.7 (L) 32.0 - 36.0 g/dL RDW 15.2 11.8 - 15.6 % NRBC %, Automated 0 % NRBC Absolute, Autmated 0.00 K/uL Basic metabolic panel Collection Time: 06/13/24 5:00 AM Result Value Ref Range Sodium 135 135 - 145 mEq/L Potassium 4.0 3.5 - 5.1 mEq/L Chloride 102 98 - 107 mEq/L CO2 29 22 - 31 mmol/L Creatinine 1.21 0.60 - 1.40 mg/dL BUN 26 (H) 5 - 25 mg/dL Glucose 188 (H) 70 - 100 mg/dL Calcium, Total,S 8.7 8.4 - 10.2 mg/dL Anion Gap 4 4 - 13 Fasting? 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 Will likely go back to OR on Friday 06/15 Note that cultures are growing MSSA. Switched to ertapenem from vancomycin, cefepime, and flagyl per ID recommendation Appreciate ID assistance Plan is for patient to continue on ertapenem for 4-6 weeks; place PICC line once done with all surgeries for this hospitalization White count has been persistently elevated; not increase today after surgery yesterday IDA resolved Renally dose medications Avoid nephrotoxic medications Trend CBC, BMP daily Pain control as needed Atrial fibrillation on Eliquis Atrial Fibrillation with RVR Given the fact that the patient has further plans to return to the OR, continue to hold eliquis Continue lovenox Oral diltiazem added; 60mg q6h. Patient's HR better controlled now Continue coreg; increased to 25mg bid Ok to stop telemetry today and he has been stable over many days Diabetes mellitus type 2, [id number]-qwosyhbsz patient's blood sugars are high on arrival and states they have been running in the 200s at home. BG still now at goal; increase lantus to 20 units Continue carb counting and sliding scale Sugars well controlled Diabetic diet Follow sugars HbA1c 9.0% HLD: Continue statin DVT: Lovenox Full Code Greater than 55 minutes of total time spent in patient's care such as (preparation/review of tests,obtaining/reviewing separately obtained history, medically appropriate examination/evaluation, counseling/educating patient/family/caregiver, ordering medications/tests/procedures, referring/communicating with other health rn patient care not separately reported, documentation, and independentlyinterpreting results not separately reported, communicating results to the patient/family/caregiver, and care coordination not separately reported). * Tania Freedman BSN - 06/13/2024 12:38 AM CDT Problem: Pain - Adult Goal: Verbalizes/displays adequate comfort level or baseline comfort level Outcome: Progressing Problem: Infection - Adult Goal: Absence of infection during hospitalization Outcome: Progressing Goal: Absence of fever/infection during anticipated neutropenic period Outcome: Progressing Problem: Safety Adult - Fall Goal: Free from fall injury Outcome: Progressing Problem: Discharge Planning Goal: Discharge to home or other facility with appropriate resources Outcome: Progressing Problem: Knowledge Deficit Goal: Patient/family/caregiver demonstrates understanding of disease process, treatment plan, medications, and discharge instructions Outcome: Progressing Problem: Potential for Compromised Skin Integrity Goal: Skin Integrity is Maintained or Improved Outcome: Progressing Goal: Nutritional status is improving Outcome: Progressing Problem: Urinary Incontinence Goal: Perineal skin integrity is maintained or improved Outcome: Progressing Problem: Glucose Imbalance Goal: Clinical indication of glucose balance is achieved Outcome: Progressing Goal: Patient's discharge needs are met Outcome: Progressing Goals: Clinical Goals for the Shift: IV abx, pain contrl Stability of the patient: Moderately Stable - Low risk of patient condition declining or worsening End of Shift Summary: Pain complained of pain once this evening. Oxy 10mg given. Voiding at bedside. BG 292 at bedtime. * Karley Bonner LSW - 06/12/2024 11:50 AM CDT Reason for referral: Other: IV Infusion upon discharge Referral Source: Rounds Assessment completed with: Patient Assessment Discussion: This signwriter spoke with pt as he will likely need IV antibiotics upon discharge. Discussed both home infusion options and coming to [facility] Infusion for services. Pt would like to come to [facility] for infusion services as he [place] nearby. This signwriter called and spoke with Toña Carranza RN (phone: [phone]) with the [place] [facility]. [facility] will work with Toña on obtaining orders from the [place] for pt to be seen at [facility] Infusion suite. [facility] to continue to assist through discharge. Plan: [facility] contact information provided Response: Patient in agreement with plan and Thankful for information * Shantell Lewis MD - 06/12/2024 8:56 AM CDT Subjective No acute events overnight. Patient without complaint this morning. He denies significant pain or SOB. . Denies chest pain, nausea, vomiting, or diarrhea. Plan for surgery today and will also need 4-6 weeks of ertapenem, per ID recommendation. Did discuss this plan with patient this morning. He is agreeable. ROS: All complete systems reviewed and negative except as above Objective Physical Exam Visit Vitals BP 132/74 (BP Location: Left arm, Patient Position: Lying) Pulse 76 Temp (!) 35.8 ??C (96.5 ??F) (Temporal) Resp 18 Ht 1.854 m (6' 0.99) Wt 89.6 kg (197 lb 8.5 oz) SpO2 93% BMI 26.07 kg/m?? Smoking Status Never BSA 2.15 m?? Heart Rate: 76 Resp: 18 BP: 132/74 Temp: (!) 35.8 ??C (96.5 ??F) Weight: 89.6 kg (197 lb 8.5 oz) General Appearance: Alert, cooperative, no distress, appears stated age Head: Normocephalic, without obvious abnormality, atraumatic Eyes: PERRL, conjunctiva/corneas clear, EOM's intact Throat: MMM, no erythema Neck: Supple, symmetrical, trachea midline, no adenopathy Back: Symmetric, no curvature, ROM normal, no CVA tenderness Lungs: Clear to auscultation bilaterally, respirations unlabored Chest Wall: No tenderness or deformity Heart: Irregularly irregular, S1 and S2 normal, no murmur, rub or gallop Abdomen: Soft, non-tender, bowel sounds active all four quadrants, no masses, no organomegaly Extremities: Right foot wrapped postoperatively Pulses: 2+ and symmetric all extremities Skin: Skin color, texture, turgor normal, no rashes or lesions Lymph nodes: Cervical, supraclavicular, and axillary nodes normal Neurologic: CNII-XII intact, normal strength, no tremor Labs Recent Results (from the past 24 hour(s)) POCT Precision glucose Collection Time: 06/11/24 11:29 AM Result Value Ref Range Glucose Blood, POC 252 (H) 70 - 100 mg/dL POCT Precision glucose Collection Time: 06/11/24 4:47 PM Result Value Ref Range Glucose Blood, POC 257 (H) 70 - 100 mg/dL POCT Precision glucose Collection Time: 06/11/24 9:29 PM Result Value Ref Range Glucose Blood, POC 300 (H) 70 - 100 mg/dL CBC ([facility]) Collection Time: 06/12/24 5:40 AM Result Value Ref Range WBC 14.4 (H) 3.5 - 10.5 K/uL RBC 5.22 4.30 - 5.70 M/uL Hemoglobin 15.5 13.5 - 17.5 g/dL Hematocrit 48.2 38.0 - 50.0 % Platelets 396 150 - 450 K/uL MCV 92.3 81.2 - 95.1 fL MCH 29.7 26.0 - 32.0 pg MCHC 32.2 32.0 - 36.0 g/dL RDW 15.1 11.8 - 15.6 % NRBC %, Automated 0 % NRBC Absolute, Autmated 0.00 K/uL Basic metabolic panel Collection Time: 06/12/24 5:40 AM Result Value Ref Range Sodium 137 135 - 145 mEq/L Potassium 4.2 3.5 - 5.1 mEq/L Chloride 103 98 - 107 mEq/L CO2 29 22 - 31 mmol/L Creatinine 1.13 0.60 - 1.40 mg/dL BUN 25 5 - 25 mg/dL Glucose 172 (H) 70 - 100 mg/dL Calcium, Total,S 9.2 8.4 - 10.2 mg/dL Anion Gap 5 4 - 13 Fasting? 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 Switched to ertapenem from vancomycin, cefepime, and flagyl per ID recommendation Appreciate ID assistance Plan is for patient to continue on ertapenem for 4-6 weeks; place PICC line once done with all surgeries for this hospitalization Plan to go back to the OR today, possible back again on Saturday for closure White count stable Renal function improved Renally dose medications Avoid nephrotoxic medications Trend CBC, BMP daily Pain control as needed Atrial fibrillation on Eliquis Atrial Fibrillation with RVR Given the fact that the patient will likely go to the operating room, I will hold Eliquis until after Saturday, Continue lovenox Oral diltiazem added; 60mg q6h. Patient's HR better controlled now Continue coreg; increased to 25mg bid Monitor on telemetry Diabetes mellitus type 2, [id number] patient's blood sugars are high on arrival and states they have been running in the 200s at home. He had been doing well on 10 units lantus, but sugars yesterday in the 200s. Will increase carb counting ratio and increase lantus to 15 units Sugars well controlled Diabetic diet Follow sugars HbA1c 9.0% HLD: Continue statin DVT: Lovenox Full Code Greater than 35 minutes of total time spent in patient's care such as (preparation/review of tests,obtaining/reviewing separately obtained history, medically appropriate examination/evaluation, counseling/educating patient/family/caregiver, ordering medications/tests/procedures, referring/communicating with other health rn patient care not separately reported, documentation, and independentlyinterpreting results not separately reported, communicating results to the patient/family/caregiver, and care coordination not separately reported). * Tania Freedman BSN - 06/12/2024 3:35 AM CDT Problem: Pain - Adult Goal: Verbalizes/displays adequate comfort level or baseline comfort level Outcome: Progressing Problem: Infection - Adult Goal: Absence of infection during hospitalization Outcome: Progressing Goal: Absence of fever/infection during anticipated neutropenic period Outcome: Progressing Problem: Safety Adult - Fall Goal: Free from fall injury Outcome: Progressing Problem: Discharge Planning Goal: Discharge to home or other facility with appropriate resources Outcome: Progressing Problem: Knowledge Deficit Goal: Patient/family/caregiver demonstrates understanding of disease process, treatment plan, medications, and discharge instructions Outcome: Progressing Problem: Potential for Compromised Skin Integrity Goal: Skin Integrity is Maintained or Improved Outcome: Progressing Goal: Nutritional status is improving Outcome: Progressing Problem: Urinary Incontinence Goal: Perineal skin integrity is maintained or improved Outcome: Progressing Problem: Glucose Imbalance Goal: Clinical indication of glucose balance is achieved Outcome: Progressing Goal: Patient's discharge needs are met Outcome: Progressing Goals: Clinical Goals for the Shift: IV abx, pain contrl Identify possible barriers to meeting goals/advancing plan of care: Infection Stability of the patient: Moderately Stable - Low risk of patient condition declining or worsening End of Shift Summary: surgery planned for today * Shantell Lewis MD - 06/11/2024 9:40 AM CDT Subjective No acute events overnight. Patient without complaint this morning. He denies significant pain or SOB. He does have a mild cough. Denies chest pain, nausea, vomiting, or diarrhea. Patient seen in conjunction with podiatry this morning. Plan for surgery tomorrow and possible primary closure on Saturday. ROS: All complete systems reviewed and negative except as above Objective Physical Exam Visit Vitals BP (!) 103/49 (BP Location: Right arm, Patient Position: Lying) Pulse (!) 101 Temp 36.3 ??C (97.4 ??F) (Temporal) Resp 15 Ht 1.854 m (6' 0.99) Wt 89.6 kg (197 lb 8.5 oz) SpO2 91% BMI 26.07 kg/m?? Smoking Status Never BSA 2.15 m?? Heart Rate: (!) 101 Resp: 15 BP: (!) 103/49 Temp: 36.3 ??C (97.4 ??F) Weight: 89.6 kg (197 lb 8.5 oz) General Appearance: Alert, cooperative, no distress, appears stated age Head: Normocephalic, without obvious abnormality, atraumatic Eyes: PERRL, conjunctiva/corneas clear, EOM's intact Throat: MMM, no erythema Neck: Supple, symmetrical, trachea midline, no adenopathy Back: Symmetric, no curvature, ROM normal, no CVA tenderness Lungs: Clear to auscultation bilaterally, respirations unlabored Chest Wall: No tenderness or deformity Heart: Irregularly irregular, tachycardic, S1 and S2 normal, no murmur, rub or gallop Abdomen: Soft, non-tender, bowel sounds active all four quadrants, no masses, no organomegaly Extremities: Right foot wrapped postoperatively Pulses: 2+ and symmetric all extremities Skin: Skin color, texture, turgor normal, no rashes or lesions Lymph nodes: Cervical, supraclavicular, and axillary nodes normal Neurologic: CNII-XII intact, normal strength, no tremor Labs Recent Results (from the past 24 hour(s)) POCT Precision glucose Collection Time: 06/10/24 11:33 AM Result Value Ref Range Glucose Blood, POC 286 (H) 70 - 100 mg/dL POCT Precision glucose Collection Time: 06/10/24 5:10 PM Result Value Ref Range Glucose Blood, POC 230 (H) 70 - 100 mg/dL POCT Precision glucose Collection Time: 06/10/24 9:46 PM Result Value Ref Range Glucose Blood, POC 149 (H) 70 - 100 mg/dL CBC ([facility]) Collection Time: 06/11/24 6:10 AM Result Value Ref Range WBC 14.5 (H) 3.5 - 10.5 K/uL RBC 5.09 4.30 - 5.70 M/uL Hemoglobin 15.3 13.5 - 17.5 g/dL Hematocrit 46.8 38.0 - 50.0 % Platelets 389 150 - 450 K/uL MCV 91.9 81.2 - 95.1 fL MCH 30.1 26.0 - 32.0 pg MCHC 32.7 32.0 - 36.0 g/dL RDW 15.3 11.8 - 15.6 % NRBC %, Automated 0 % NRBC Absolute, Autmated 0.00 K/uL Basic metabolic panel Collection Time: 06/11/24 6:10 AM Result Value Ref Range Sodium 138 135 - 145 mEq/L Potassium 4.2 3.5 - 5.1 mEq/L Chloride 104 98 - 107 mEq/L CO2 25 22 - 31 mmol/L Creatinine 1.20 0.60 - 1.40 mg/dL BUN 24 5 - 25 mg/dL Glucose 173 (H) 70 - 100 mg/dL Calcium, Total,S 9.5 8.4 - 10.2 mg/dL Anion Gap 9 4 - 13 Fasting? Yes Estimated Glomerular Filtration Rate (eGFR) Collection Time: 06/11/24 6:10 AM Result Value Ref Range Estimated Glomerular Filtration Rate (eGFR) >60 POCT Precision glucose Collection Time: 06/11/24 7:34 AM Result Value Ref Range Glucose Blood, POC 168 (H) 70 - 100 mg/dL Assessment and plan Diabetic cellulitis with soft tissue abscess of [...] CBC, BMP daily Pain control as needed Atrial fibrillation on Eliquis Atrial Fibrillation with RVR Given the fact that the patient will likely go to the operating room, I will hold Eliquis until after Saturday, Continue lovenox Oral diltiazem added; will increase dose to 60mg q6h. Patient's HR better controlled now Continue coreg; increased to 25mg bid Prn diltiazem boluses Monitor on telemetry Diabetes mellitus type 2, [id number] patient's blood sugars are high on arrival and states they have been running in the 200s at home. 10 units Lantus nightly with sliding scale and carb counting Sugars well controlled Diabetic diet Follow sugars HLD: Continue statin DVT: Lovenox Full Code Greater than 35 minutes of total time spent in patient's care such as (preparation/review of tests,obtaining/reviewing separately obtained history, medically appropriate examination/evaluation, counseling/educating patient/family/caregiver, ordering medications/tests/procedures, referring/communicating with other health rn patient care not separately reported, documentation, and independentlyinterpreting results not separately reported, communicating results to the patient/family/caregiver, and care coordination not separately reported). * Angel Coombs DPM - 06/11/2024 7:20 AM CDT Subjective 69-year-old male seen at bedside patient is 3 days status post irrigation and debridement with amputation of the right second toe I&D was also on the right foot. Patient denies nausea vomiting fever chills chest pain calf pain and difficulty breathing patient relates that overall he is feeling a little better since having the surgery. Objective Physical Exam Patient was alert and oriented x 3 and in no acute distress dermatological examination revealed that the incision where the right second toe was amputated as well as the right second metatarsal head was clean there was slight malodor but no purulence there was still some CESARIO marginal erythema and we noted that the edema has decreased in the right foot and leg. Labs: CBC with differential showed white count decreased to 14.5 from 15.2 yesterday it was 16.4 onadmission Lab cultures: So far aerobic cultures show methicillin sensitive Staph aureus these of the culturestaken deep cultures on the during the surgery anaerobic cultures taken on the during surgery showed a few gram-positive cocci pairs and clusters on the initial Gram stain but no growth on the cultures as of yet. 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 Podiatry will continue to follow the patient we informed the patient that tomorrow we plan on taking him to the OR for another irrigation and debridement and possible delayed primary closure but if tissues do not look adequately healthy andthere is still signs of infection we may not perform the delayed primary closure and may have to doit next week just to make sure infection is eradicated before delayed primary closure. Patient was agreeable to this. Medical management will be per hospitalist and continue IV antibiotics per hospitalist. * Triny Shah RN - 06/11/2024 4:33 AM CDT End of Shift Summary: No significant events overnight. Right foot remains wrapped, C/D/I, and elevated on pillows. Pain medication given with results. Patient remains on telemetry, showing a-fib withHR ranging between 80s-low 100s. All other vitals WNL. Patient has been using bedside urinal. Plan for another I&D on Tuesday 06/12. Problem: Pain - Adult Goal: Verbalizes/displays adequate comfort level or baseline comfort level Outcome: Progressing Problem: Infection - Adult Goal: Absence of infection during hospitalization Outcome: Progressing Goal: Absence of fever/infection during anticipated neutropenic period Outcome: Progressing Problem: Safety Adult - Fall Goal: Free from fall injury Outcome: Progressing Problem: Discharge Planning Goal: Discharge to home or other facility with appropriate resources Outcome: Progressing Problem: Knowledge Deficit Goal: Patient/family/caregiver demonstrates understanding of disease process, treatment plan, medications, and discharge instructions Outcome: Progressing Problem: Potential for Compromised Skin Integrity Goal: Skin Integrity is Maintained or Improved Outcome: Progressing Goal: Nutritional status is improving Outcome: Progressing Problem: Urinary Incontinence Goal: Perineal skin integrity is maintained or improved Outcome: Progressing Problem: Glucose Imbalance Goal: Clinical indication of glucose balance is achieved Outcome: Progressing Goal: Patient's discharge needs are met Outcome: Progressing * Nikki Gomez RN - 06/10/2024 7:19 PM CDT Goals: Clinical Goals for the Shift: pain/infection control Identify possible barriers to meeting goals/advancing plan of care: None Stability of the patient: Moderately Stable - Low risk of patient condition declining or worsening End of Shift Summary: AF & BP stable on diltiazem and coreg. R foot dressing C/D/I without s/s of infection. Remains afebrile. Blood glucose running in the 200s on carb count diet. Treated per orders with Humalog. GI/ WNL. Continue to monitor for s/s of infection and plan for return to OR on Saturday, 06/12. * Shantell Lewis MD - 06/10/2024 10:28 AM CDT Subjective No acute events overnight. Yesterday, patient did receive several doses of IV diltiazem for a fib with RVR and subsequently his coreg dose was increased to 25mg bid and I started oral diltiazem as well. HR still hovering around 100. BP stable. Yesterday, the patient was switched to ertapenem per IDrecommendation; wound cultures growing MSSA and OR cultures came back with coag positive staph--also likely MSSA. Patient without complaint this morning. He denies significant pain or SOB. He does have a mild cough. Denies chest pain, nausea, vomiting, or diarrhea. ROS: All complete systems reviewed and negative except as above Objective Physical Exam Visit Vitals BP 120/79 Pulse (!) 107 Temp 36.2 ??C (97.1 ??F) (Temporal) Resp 19 Ht 1.854 m (6' 0.99) Wt 89.6 kg (197 lb 8.5 oz) SpO2 91% BMI 26.07 kg/m?? Smoking Status Never BSA 2.15 m?? Heart Rate: (!) 107 Resp: 19 BP: 120/79 Temp: 36.2 ??C (97.1 ??F) Weight: 89.6 kg (197 lb 8.5 oz) General Appearance: Alert, cooperative, no distress, appears stated age Head: Normocephalic, without obvious abnormality, atraumatic Eyes: PERRL, conjunctiva/corneas clear, EOM's intact Throat: MMM, no erythema Neck: Supple, symmetrical, trachea midline, no adenopathy Back: Symmetric, no curvature, ROM normal, no CVA tenderness Lungs: Clear to auscultation bilaterally, respirations unlabored Chest Wall: No tenderness or deformity Heart: Irregularly irregular, tachycardic, S1 and S2 normal, no murmur, rub or gallop Abdomen: Soft, non-tender, bowel sounds active all four quadrants, no masses, no organomegaly Extremities: Right foot wrapped postoperatively Pulses: 2+ and symmetric all extremities Skin: Skin color, texture, turgor normal, no rashes or lesions Lymph nodes: Cervical, supraclavicular, and axillary nodes normal Neurologic: CNII-XII intact, normal strength, no tremor Labs Recent Results (from the past 24 hour(s)) POCT Precision glucose Collection Time: 06/09/24 11:00 AM Result Value Ref Range Glucose Blood, POC 242 (H) 70 - 100 mg/dL Vancomycin Collection Time: 06/09/24 11:38 AM Result Value Ref Range Vancomycin 22.9 mcg/mL Last Dose Date 06/09/2024 Last Dose Time 1010 AM POCT Precision glucose Collection Time: 06/09/24 6:27 PM Result Value Ref Range Glucose Blood, POC 216 (H) 70 - 100 mg/dL POCT Precision glucose Collection Time: 06/09/24 11:24 PM Result Value Ref Range Glucose Blood, POC 141 (H) 70 - 100 mg/dL CBC ([facility]) Collection Time: 06/10/24 5:54 AM Result Value Ref Range WBC 15.2 (H) 3.5 - 10.5 K/uL RBC 5.00 4.30 - 5.70 M/uL Hemoglobin 15.2 13.5 - 17.5 g/dL Hematocrit 47.1 38.0 - 50.0 % Platelets 347 150 - 450 K/uL MCV 94.2 81.2 - 95.1 fL MCH 30.4 26.0 - 32.0 pg MCHC 32.3 32.0 - 36.0 g/dL RDW 15.6 11.8 - 15.6 % NRBC %, Automated 0 % NRBC Absolute, Autmated 0.00 K/uL Basic metabolic panel Collection Time: 06/10/24 5:54 AM Result Value Ref Range Sodium 138 135 - 145 mEq/L Potassium 4.2 3.5 - 5.1 mEq/L Chloride 107 98 - 107 mEq/L CO2 24 22 - 31 mmol/L Creatinine 1.23 0.60 - 1.40 mg/dL BUN 24 5 - 25 mg/dL Glucose 139 (H) 70 - 100 mg/dL Calcium, Total,S 9.3 8.4 - 10.2 mg/dL Anion Gap 7 4 - 13 Fasting? Yes Estimated Glomerular Filtration Rate (eGFR) Collection Time: 06/10/24 5:54 AM Result Value Ref Range Estimated Glomerular Filtration Rate (eGFR) >60 POCT Precision glucose Collection Time: 06/10/24 6:31 AM Result Value Ref Range Glucose Blood, POC 170 (H) 70 - 100 mg/dL Assessment and plan Diabetic cellulitis with soft tissue abscess of the right foot, failed treatment with outpatient oral antibiotics IDA Leukocytosis Note that cultures are growing MSSA. Switched to ertapenem from vancomycin, cefepime, and flagyl per ID recommendation Appreciate ID assistance Will go back to OR on Tuesday 06/12 with podiatry Renal function improved, will stop IV fluids Renally dose medications Avoid nephrotoxic medications Trend CBC, BMP daily Pain control as needed Atrial fibrillation on Eliquis Atrial Fibrillation with RVR Given the fact that the patient will likely go to the operating room, I will hold Eliquis until after Saturday, Continue lovenox Oral diltiazem added; will increase dose to 60mg q6h Continue coreg; increased to 25mg bid Prn diltiazem boluses Monitor on telemetry Diabetes mellitus type 2, [id number] patient's blood sugars are high on arrival and states they have been running in the 200s at home. 10 units Lantus nightly with sliding scale and carb counting Sugars well controlled Diabetic diet Follow sugars HLD: Continue statin DVT: Lovenox Full Code Greater than 35 minutes of total time spent in patient's care such as (preparation/review of tests,obtaining/reviewing separately obtained history, medically appropriate examination/evaluation, counseling/educating patient/family/caregiver, ordering medications/tests/procedures, referring/communicating with other health rn patient care not separately reported, documentation, and independentlyinterpreting results not separately reported, communicating results to the patient/family/caregiver, and care coordination not separately reported). * Steve Lopez DPM - 06/09/2024 3:05 PM CDT Subjective Patient was seen at bedside resting comfortably. He is postop day 1 incision and drainage and second toe amputation with second met head resection and wound packed open, right foot. He relates minimal pain. Objective Physical Exam Vascular: Pedal pulses are palpable. Capillary fill time is delayed to the toes of the right foot Derm: Large open incision at the second toe amputation site which is packed open. Serosanguineous drainage., Bleeding is not extensive. Ulceration subfirst MPJ is looking good Last Recorded Vitals Temp: [36.2 ??C (97.2 ??F)-36.8 ??C (98.2 ??F)] 36.7 ??C (98.1 ??F) Heart Rate: [93-135] 106 Resp: [14-25] 25 BP: (99-150)/(55-99) 112/91 Assessment/Plan Principal Problem: Infection of right foot Patient continues to have cellulitis of the right lower extremity, though improved The extent of the abscess in the right foot was extensive so plan is for patient to return to the operating room on Saturday for repeat incision and drainage, debridement, possible delayed primary closure. This will be performed by Dr. Coombs. Continue IV antibiotics until intraoperative cultures and path are finalized Dressing: Reinforce dressing with gauze for strikethrough Weightbearing status: Nonweightbearing right foot Podiatry will continue to follow Steve Lopez DPM, FACFAS * Shantell Lewis MD - 06/09/2024 9:55 AM CDT Subjective No acute events overnight. Pt went to OR yesterday with podiatry. Patient's abscess of the right foot was very extensive and tracted dorsally nearly back to the ankle. Podiatry did amputate the second toe and the 2nd met head and packed the wound open as this patient will require a return to the operating room for second incision and drainage and possible delayed primary closure. Discussed with patient this morning who expressed understand of the plan. He denies significant pain; has been taking oxycodone for the pain and notes that it is helping. Heis eating and drinking. Labs show continued improvement of white count. However, notably, he has gone into A fib with RVR this morning with rates in the 130s. EKG confirmed a fib with RVR. ROS: All complete systems reviewed and negative except as above Objective Physical Exam Visit Vitals BP 129/85 (BP Location: Right arm, Patient Position: Sitting) Pulse (!) 135 Temp 36.8 ??C (98.2 ??F) (Temporal) Resp 18 Ht 1.854 m (6' 0.99) Wt 89.6 kg (197 lb 8.5 oz) SpO2 92% BMI 26.07 kg/m?? Smoking Status Never BSA 2.15 m?? Heart Rate: (!) 135 Resp: 18 BP: 129/85 Temp: 36.8 ??C (98.2 ??F) Weight: 89.6 kg (197 lb 8.5 oz) General Appearance: Alert, cooperative, no distress, appears stated age Head: Normocephalic, without obvious abnormality, atraumatic Eyes: PERRL, conjunctiva/corneas clear, EOM's intact Throat: MMM, no erythema Neck: Supple, symmetrical, trachea midline, no adenopathy Back: Symmetric, no curvature, ROM normal, no CVA tenderness Lungs: Clear to auscultation bilaterally, respirations unlabored Chest Wall: No tenderness or deformity Heart: Irregularly irregular, tachycardic, S1 and S2 normal, no murmur, rub or gallop Abdomen: Soft, non-tender, bowel sounds active all four quadrants, no masses, no organomegaly Extremities: Right foot wrapped postoperatively Pulses: 2+ and symmetric all extremities Skin: Skin color, texture, turgor normal, no rashes or lesions Lymph nodes: Cervical, supraclavicular, and axillary nodes normal Neurologic: CNII-XII intact, normal strength, no tremor Labs Recent Results (from the past 24 hour(s)) POCT Precision glucose Collection Time: 06/08/24 12:30 PM Result Value Ref Range Glucose Blood, POC 83 70 - 100 mg/dL POCT Precision glucose Collection Time: 06/08/24 3:08 PM Result Value Ref Range Glucose Blood, POC 73 70 - 100 mg/dL POCT Precision glucose Collection Time: 06/08/24 3:44 PM Result Value Ref Range Glucose Blood, POC 104 (H) 70 - 100 mg/dL POCT Precision glucose Collection Time: 06/08/24 9:53 PM Result Value Ref Range Glucose Blood, POC 168 (H) 70 - 100 mg/dL CBC ([facility]) Collection Time: 06/09/24 6:05 AM Result Value Ref Range WBC 13.8 (H) 3.5 - 10.5 K/uL RBC 5.05 4.30 - 5.70 M/uL Hemoglobin 14.9 13.5 - 17.5 g/dL Hematocrit 47.0 38.0 - 50.0 % Platelets 334 150 - 450 K/uL MCV 93.1 81.2 - 95.1 fL MCH 29.5 26.0 - 32.0 pg MCHC 31.7 (L) 32.0 - 36.0 g/dL RDW 15.4 11.8 - 15.6 % NRBC %, Automated 0 % NRBC Absolute, Autmated 0.00 K/uL Basic metabolic panel Collection Time: 06/09/24 6:05 AM Result Value Ref Range Sodium 137 135 - 145 mEq/L Potassium 4.2 3.5 - 5.1 mEq/L Chloride 108 (H) 98 - 107 mEq/L CO2 24 22 - 31 mmol/L Creatinine 1.21 0.60 - 1.40 mg/dL BUN 29 (H) 5 - 25 mg/dL Glucose 113 (H) 70 - 100 mg/dL Calcium, Total,S 9.2 8.4 - 10.2 mg/dL Anion Gap 5 4 - 13 Fasting? Yes Estimated Glomerular Filtration Rate (eGFR) Collection Time: 06/09/24 6:05 AM Result Value Ref Range Estimated Glomerular Filtration Rate (eGFR) >60 POCT Precision glucose Collection Time: 06/09/24 6:39 AM Result Value Ref Range Glucose Blood, POC 116 (H) 70 - 100 mg/dL Assessment and plan Diabetic cellulitis with soft tissue abscess of the right foot, failed treatment with outpatient oral antibiotics IDA Leukocytosis Continue vancomycin, cefepime, and Flagyl Not that cultures are growing MSSA. Discussed starting ancef, but those cultures were pre operative, and given the extent of abscess found by podiatry, and plans to go back to the OR, will continue cefepime, flagyl, and vancomycin for now and await OR cultures I did consult ID today and will appreciate their recommendations Pharmacy to dose vancomycin Will go back to OR on Tuesday 06/12 with podiatry Renal function improving; continue IV fluids Renally dose medications Avoid nephrotoxic medications Trend CBC, BMP daily Pain control as needed Atrial fibrillation on Eliquis Atrial Fibrillation with RVR Given the fact that the patient will likely go to the operating room, I will hold Eliquis until after Saturday, Continue lovenox Given RVR noted today, will give 10mg IV diltiazem x 1 and continue to monitor Continue coreg; increase to 25mg bid Monitor on telemetry Diabetes mellitus type 2, [id number] patient's blood sugars are high on arrival and states they have been running in the 200s at home. 10 units Lantus nightly with sliding scale and carb counting Sugars well controlled Diabetic diet Follow sugars HLD: Continue statin DVT: Lovenox Full Code Greater than 55 minutes of total time spent in patient's care such as (preparation/review of tests,obtaining/reviewing separately obtained history, medically appropriate examination/evaluation, counseling/educating patient/family/caregiver, ordering medications/tests/procedures, referring/communicating with other health rn patient care not separately reported, documentation, and independentlyinterpreting results not separately reported, communicating results to the patient/family/caregiver, and care coordination not separately reported). * Clarita García RN - 06/09/2024 2:38 AM CDT Problem: Pain - Adult Goal: Verbalizes/displays adequate comfort level or baseline comfort level Outcome: Progressing Problem: Infection - Adult Goal: Absence of infection during hospitalization Outcome: Not Progressing Goal: Absence of fever/infection during anticipated neutropenic period Outcome: Progressing Problem: Safety Adult - Fall Goal: Free from fall injury Outcome: Progressing Problem: Discharge Planning Goal: Discharge to home or other facility with appropriate resources Outcome: Progressing Problem: Knowledge Deficit Goal: Patient/family/caregiver demonstrates understanding of disease process, treatment plan, medications, and discharge instructions Outcome: Not Progressing Problem: Potential for Compromised Skin Integrity Goal: Skin Integrity is Maintained or Improved Outcome: Not Progressing Goal: Nutritional status is improving Outcome: Not Progressing Problem: Urinary Incontinence Goal: Perineal skin integrity is maintained or improved Outcome: Progressing Problem: Glucose Imbalance Goal: Clinical indication of glucose balance is achieved Outcome: Progressing Goals: Clinical Goals for the Shift: surgery Identify possible barriers to meeting goals/advancing plan of care: education and motivation Stability of the patient: Moderately Unstable - Medium risk of patient condition declining or worsening End of Shift Summary: pt very drowsy mumbles when talking, falls asleep while nurse is talking, pt has sleep apnea, dressing clean dry and intact, denies pain at this writing. * Eva Paul RN - 06/08/2024 11:13 PM CDT Problem: Pain - Adult Goal: Verbalizes/displays adequate comfort level or baseline comfort level 06/08/2024 2313 by Eva Paul RN Outcome: Progressing 06/08/2024 2303 by Eva Paul RN Outcome: Progressing Problem: Infection - Adult Goal: Absence of infection during hospitalization 06/08/20242312 by Eva Paul RN Outcome: Progressing 06/08/20242302 by Eva Paul RN Outcome: Progressing Goal: Absence of fever/infection during anticipated neutropenic period 06/08/20242312 by Eva Paul RN Outcome: Progressing 06/08/20242302 by Eva Paul RN Outcome: Progressing Problem: Discharge Planning Goal: Discharge to home or other facility with appropriate resources 06/08/20242312 by Eva Paul RN Outcome: Progressing 06/08/20242302 by Eva Paul RN Outcome: Progressing Problem: Knowledge Deficit Goal: Patient/family/caregiver demonstrates understanding of disease process, treatment plan, medications, and discharge instructions 06/08/20242312 by Eva Paul RN Outcome: Progressing 06/08/20242302 by Eva Paul RN Outcome: Progressing Problem: Urinary Incontinence Goal: Perineal skin integrity is maintained or improved 06/08/20242312 by Eva Paul RN Outcome: Progressing 06/08/20242302 by Eva Paul RN Outcome: Progressing Problem: Glucose Imbalance Goal: Clinical indication of glucose balance is achieved 06/08/20242312 by Eva Paul RN Outcome: Progressing 06/08/20242302 by Eva Paul RN Outcome: Progressing Goal: Patient's discharge needs are met 06/08/20242312 by Eva Paul RN Outcome: Progressing 06/08/20242302 by Eva Paul RN Outcome: Progressing * Shantell Lewis MD - 06/08/2024 12:08 PM CDT Subjective No acute events overnight. Patient seen by podiatry this AM. Plan to go to OR today for right 2nd toe amputation and I&D. Patient in agreement with the plan. He has no present complaints. Denies cp/sob/n/v/d. He does endorse a cough, COVID negative, and received some mucinex last evening. Review of systems: All complete systems is negative except as above Objective Physical Exam Visit Vitals BP 127/88 (BP Location: Right arm, Patient Position: Lying) Pulse (!) 102 Temp 36.9 ??C (98.4 ??F) (Temporal) Resp 18 Ht 1.854 m (6' 0.99) Wt 89.6 kg (197 lb 8.5 oz) SpO2 93% BMI 26.07 kg/m?? Smoking Status Never BSA 2.15 m?? Heart Rate: (!) 102 Resp: 18 BP: 127/88 Temp: 36.9 ??C (98.4 ??F) Weight: 89.6 kg (197 lb 8.5 oz) General Appearance: Alert, cooperative, no distress, appears stated age Head: Normocephalic, without obvious abnormality, atraumatic Eyes: PERRL, conjunctiva/corneas clear, EOM's intact Throat: MMM, no erythema Neck: Supple, symmetrical, trachea midline, no adenopathy Back: Symmetric, no curvature, ROM normal, no CVA tenderness Lungs: Clear to auscultation bilaterally, respirations unlabored Chest Wall: No tenderness or deformity Heart: Regular rate and rhythm, S1 and S2 normal, no murmur, rub or gallop Abdomen: Soft, non-tender, bowel sounds active all four quadrants, no masses, no organomegaly Extremities: There is extensive erythema, edema, and warmth of the entire right foot, with black and purpleish discoloration of the second toe on the right, with obvious drainage, bleeding, and purulence noted Pulses: 2+ and symmetric all extremities Skin: Skin color, texture, turgor normal, no rashes or lesions Lymph nodes: Cervical, supraclavicular, and axillary nodes normal Neurologic: CNII-XII intact, normal strength, no tremor Labs Recent Results (from the past 24 hour(s)) POCT Precision glucose Collection Time: 06/07/24 5:42 PM Result Value Ref Range Glucose Blood, POC 95 70 - 100 mg/dL POCT Precision glucose Collection Time: 06/07/24 11:05 PM Result Value Ref Range Glucose Blood, POC 141 (H) 70 - 100 mg/dL CBC ([facility]) Collection Time: 06/08/24 6:05 AM Result Value Ref Range WBC 14.2 (H) 3.5 - 10.5 K/uL RBC 4.80 4.30 - 5.70 M/uL Hemoglobin 14.5 13.5 - 17.5 g/dL Hematocrit 44.6 38.0 - 50.0 % Platelets 298 150 - 450 K/uL MCV 92.9 81.2 - 95.1 fL MCH 30.2 26.0 - 32.0 pg MCHC 32.5 32.0 - 36.0 g/dL RDW 15.1 11.8 - 15.6 % NRBC %, Automated 0 % NRBC Absolute, Autmated 0.00 K/uL Basic metabolic panel Collection Time: 06/08/24 6:05 AM Result Value Ref Range Sodium 138 135 - 145 mEq/L Potassium 3.9 3.5 - 5.1 mEq/L Chloride 109 (H) 98 - 107 mEq/L CO2 21 (L) 22 - 31 mmol/L Creatinine 1.33 0.60 - 1.40 mg/dL BUN 36 (H) 5 - 25 mg/dL Glucose 84 70 - 100 mg/dL Calcium, Total,S 8.9 8.4 - 10.2 mg/dL Anion Gap 8 4 - 13 Fasting? Yes Estimated Glomerular Filtration Rate (eGFR) Collection Time: 06/08/24 6:05 AM Result Value Ref Range Estimated Glomerular Filtration Rate (eGFR) 58 (A) POCT Precision glucose Collection Time: 06/08/24 7:08 AM Result Value Ref Range Glucose Blood, POC 80 70 - 100 mg/dL POCT Precision glucose Collection Time: 06/08/24 8:45 AM Result Value Ref Range Glucose Blood, POC 81 70 - 100 mg/dL Assessment and plan Diabetic cellulitis with soft tissue abscess of the right foot, failed treatment with outpatient oral antibiotics IDA Leukocytosis Continue vancomycin, cefepime, and Flagyl Pharmacy to dose vancomycin Podiatry evaluated the patient this AM, plan for right 2nd toe amputation with I&D in the OR today Renal function improving; continue IV fluids Renally dose medications Avoid nephrotoxic medications Trend CBC, Procal, and BMP daily Pain control as needed Atrial fibrillation on Eliquis Given the fact that the patient will likely go to the operating room, I will hold Eliquis, and initiate prophylactic Lovenox until postoperative Resume eliquis tomorrow Continue Coreg Diabetes mellitus type 2, [id number] patient's blood sugars are high on arrival and states they have been running in the 200s at home. With 15 units lantus, sugars on the lower side. Decrease to 10 units Lantus nightly with sliding scale and carb counting Diabetic diet Follow sugars HLD: Continue statin DVT: Lovenox Full Code Greater than 35 minutes of total time spent in patient's care such as (preparation/review of tests,obtaining/reviewing separately obtained history, medically appropriate examination/evaluation, counseling/educating patient/family/caregiver, ordering medications/tests/procedures, referring/communicating with other health rn patient care not separately reported, documentation, and independentlyinterpreting results not separately reported, communicating results to the patient/family/caregiver, and care coordination not separately reported). * Karley Choi RN - 06/08/2024 5:30 AM CDT Goals: Clinical Goals for the Shift: IV Abx; Pain control Identify possible barriers to meeting goals/advancing plan of care: None Stability of the patient: Moderately Stable - Low risk of patient condition declining or worsening End of Shift Summary: Patient has been afebrile and vitally stable during shift. Patient received Tylenol and Oxycodone for RLE (foot) pain. When RN checked on patient he was in the bathroom with shower water running and attempting to wrap RLE in a plastic bag. RN finished wrapping RLE and set up bathroom for patient totake a shower. Bedding was changed. Patient has been NPO since midnight. RLE dressing remains clean, dry and intact. Problem: Pain - Adult Goal: Verbalizes/displays adequate comfort level or baseline comfort level Outcome: Progressing Problem: Infection - Adult Goal: Absence of infection during hospitalization Outcome: Progressing Goal: Absence of fever/infection during anticipated neutropenic period Outcome: Progressing Problem: Safety Adult - Fall Goal: Free from fall injury Outcome: Progressing Problem: Discharge Planning Goal: Discharge to home or other facility with appropriate resources Outcome: Progressing Problem: Knowledge Deficit Goal: Patient/family/caregiver demonstrates understanding of disease process, treatment plan, medications, and discharge instructions Outcome: Progressing Problem: Potential for Compromised Skin Integrity Goal: Skin Integrity is Maintained or Improved Outcome: Progressing Goal: Nutritional status is improving Outcome: Progressing Problem: Urinary Incontinence Goal: Perineal skin integrity is maintained or improved Outcome: Progressing Problem: Glucose Imbalance Goal: Clinical indication of glucose balance is achieved Outcome: Progressing Goal: Patient's discharge needs are met Outcome: Progressing * Eva Paul RN - 06/07/2024 6:53 PM CDT Problem: Pain - Adult Goal: Verbalizes/displays adequate comfort level or baseline comfort level Outcome: Progressing Problem: Infection - Adult Goal: Absence of infection during hospitalization Outcome: Progressing Goal: Absence of fever/infection during anticipated neutropenic period Outcome: Progressing Problem: Safety Adult - Fall Goal: Free from fall injury Outcome: Progressing Problem: Discharge Planning Goal: Discharge to home or other facility with appropriate resources Outcome: Progressing Problem: Knowledge Deficit Goal: Patient/family/caregiver demonstrates understanding of disease process, treatment plan, medications, and discharge instructions Outcome: Progressing J.T A&Ox4, R2-610 R.foot pain reported and relived by prn Oxy & prn Tramadol. Pnt diet advanced this evening, BS 92-95, received insulin for the carb count. Dressing applied by Dr. Durand, stayed clean, dry & intact. Surgery planned for tomorrow for R. 2nd toe amputation and I&D. Will be NPO starting from midnight. * Shantell Lewis MD - 06/07/2024 8:30 AM CDT Subjective No acute events overnight. Patient has not been seen by podiatry yet, he states his pain is well-controlled. Vitals largely stable, he has been slightly tachycardic. Renal function improving this morning, white blood cell count improving as well. He has no present acute complaints, denies nausea vomiting chest pain or shortness of breath. Tolerating IV antibiotics Review of systems: All complete systems is negative except as above Objective Physical Exam Visit Vitals BP 119/79 Pulse (!) 106 Temp 36.5 ??C (97.7 ??F) (Temporal) Resp 16 Ht 1.854 m (6' 0.99) Wt 89.6 kg (197 lb 8.5 oz) SpO2 93% BMI 26.07 kg/m?? Smoking Status Never BSA 2.15 m?? Heart Rate: (!) 106 Resp: 16 BP: 119/79 Temp: 36.5 ??C (97.7 ??F) Weight: 89.6 kg (197 lb 8.5 oz) General Appearance: Alert, cooperative, no distress, appears stated age Head: Normocephalic, without obvious abnormality, atraumatic Eyes: PERRL, conjunctiva/corneas clear, EOM's intact Throat: MMM, no erythema Neck: Supple, symmetrical, trachea midline, no adenopathy Back: Symmetric, no curvature, ROM normal, no CVA tenderness Lungs: Clear to auscultation bilaterally, respirations unlabored Chest Wall: No tenderness or deformity Heart: Regular rate and rhythm, S1 and S2 normal, no murmur, rub or gallop Abdomen: Soft, non-tender, bowel sounds active all four quadrants, no masses, no organomegaly Extremities: There is extensive erythema, edema, and warmth of the entire right foot, with black and purpleish discoloration of the second toe on the right, with obvious drainage, bleeding, and purulence noted Pulses: 2+ and symmetric all extremities Skin: Skin color, texture, turgor normal, no rashes or lesions Lymph nodes: Cervical, supraclavicular, and axillary nodes normal Neurologic: CNII-XII intact, normal strength, no tremor Labs Recent Results (from the past 24 hour(s)) Tissue culture, aerobic Collection Time: 06/06/24 9:36 AM Specimen: Foot, Right; Tissue, Aerobic Tissue Culture Aerobic Result Value Ref Range Gram Stain No organisms seen. No WBC's seen. Tissue Culture, Anaerobic Collection Time: 06/06/24 9:36 AM Specimen: Foot, Right; Tissue, Anaerobic Anaerobic Tissue Culture Result Value Ref Range Gram Stain No organisms seen. No WBC's seen. Covid-19, Gutierrez ID Now, PCR symptomatic Collection Time: 06/06/24 9:55 AM Result Value Ref Range Covid Source Nasal Covid-19, ID Now PCR NEGATIVE Negative APTT Collection Time: 06/06/24 10:00 AM Result Value Ref Range aPTT 40 (H) 28 - 37 seconds CBC auto differential Collection Time: 06/06/24 10:00 AM Result Value Ref Range WBC 21.3 (H) 3.5 - 10.5 K/uL RBC 5.56 4.30 - 5.70 M/uL Hemoglobin 16.7 13.5 - 17.5 g/dL Hematocrit 51.3 (H) 38.0 - 50.0 % Platelets 302 150 - 450 K/uL MCV 92.3 81.2 - 95.1 fL MCH 30.0 26.0 - 32.0 pg MCHC 32.6 32.0 - 36.0 g/dL RDW 14.7 11.8 - 15.6 % NRBC %, Automated 0 % NRBC Absolute, Autmated 0.00 K/uL Neutrophils 91.0 % Absolute Neutrophils 19.4 (H) 1.7 - 7.0 K/uL Lymphocytes % 3.0 % Absolute Lymphocytes 0.6 (L) 0.9 - 2.9 K/uL Monocytes % 5.0 % Monocytes Absolute 1.1 (H) 0.3 - 0.9 K/uL Eosinophils 1.0 % Absolute Eosinophils 0.2 0.1 - 0.5 K/uL Basophils 0.0 % Absolute Basophils 0.0 0.0 - 0.1 K/uL Immature Leukocytes 0.0 % Immature Leukocytes Absolute 0.00 0.00 - 0.04 K/uL Basic metabolic panel Collection Time: 06/06/24 10:00 AM Result Value Ref Range Sodium 134 (L) 135 - 145 mEq/L Potassium 4.5 3.5 - 5.1 mEq/L Chloride 98 98 - 107 mEq/L CO2 24 22 - 31 mmol/L Creatinine 2.61 (H) 0.60 - 1.40 mg/dL BUN 78 (HH) 5 - 25 mg/dL Glucose 254 (H) 70 - 100 mg/dL Calcium, Total,S 9.6 8.4 - 10.2 mg/dL Anion Gap 12 4 - 13 Fasting? Unknown Lactate, plasma Collection Time: 06/06/24 10:00 AM Result Value Ref Range Lactate 1.3 0.5 - 2.0 mmol/L Magnesium Collection Time: 06/06/24 10:00 AM Result Value Ref Range Magnesium 2.5 (H) 1.6 - 2.3 mg/dL Protime-INR Collection Time: 06/06/24 10:00 AM Result Value Ref Range Protime 19.0 (H) 9.4 - 12.5 seconds INR 1.6 C-reactive protein Collection Time: 06/06/24 10:00 AM Result Value Ref Range CRP >320.0 (H) 0.0 - 4.9 mg/L Procalcitonin Collection Time: 06/06/24 10:00 AM Result Value Ref Range Procalcitonin 1.34 (H) 0.00 - 0.07 ng/mL Blood gas, venous Collection Time: 06/06/24 10:00 AM Result Value Ref Range pH, Jorge 7.37 7.32 - 7.43 pCO2, Jorge 44 41 - 54 mm Hg HCO3, Venous 25.4 22.0 - 29.0 mmol/L Base Excess/Deficit Venous -0.2 -2.0 - 3.0 mmol/L Reflexed Manual Diff Collection Time: 06/06/24 10:00 AM Result Value Ref Range Manual Differential PERFORMED Total Counted 100 Morphology Collection Time: 06/06/24 10:00 AM Result Value Ref Range Slide Review PERFORMED RBC Morphology NORMAL PLT Morphology ADEQUATE Estimated Glomerular Filtration Rate (eGFR) Collection Time: 06/06/24 10:00 AM Result Value Ref Range Estimated Glomerular Filtration Rate (eGFR) 26 (A) POCT Precision glucose Collection Time: 06/06/24 1:56 PM Result Value Ref Range Glucose Blood, POC 249 (H) 70 - 100 mg/dL POCT Precision glucose Collection Time: 06/06/24 6:15 PM Result Value Ref Range Glucose Blood, POC 229 (H) 70 - 100 mg/dL POCT Precision glucose Collection Time: 06/06/24 10:25 PM Result Value Ref Range Glucose Blood, POC 220 (H) 70 - 100 mg/dL CBC ([facility]) Collection Time: 06/07/24 5:13 AM Result Value Ref Range WBC 16.4 (H) 3.5 - 10.5 K/uL RBC 4.95 4.30 - 5.70 M/uL Hemoglobin 14.8 13.5 - 17.5 g/dL Hematocrit 45.4 38.0 - 50.0 % Platelets 281 150 - 450 K/uL MCV 91.7 81.2 - 95.1 fL MCH 29.9 26.0 - 32.0 pg MCHC 32.6 32.0 - 36.0 g/dL RDW 15.1 11.8 - 15.6 % NRBC %, Automated 0 % NRBC Absolute, Autmated 0.00 K/uL Basic metabolic panel Collection Time: 06/07/24 5:13 AM Result Value Ref Range Sodium 138 135 - 145 mEq/L Potassium 4.0 3.5 - 5.1 mEq/L Chloride 107 98 - 107 mEq/L CO2 22 22 - 31 mmol/L Creatinine 1.81 (H) 0.60 - 1.40 mg/dL BUN 55 (H) 5 - 25 mg/dL Glucose 125 (H) 70 - 100 mg/dL Calcium, Total,S 9.1 8.4 - 10.2 mg/dL Anion Gap 9 4 - 13 Fasting? Yes Vancomycin Collection Time: 06/07/24 5:13 AM Result Value Ref Range Vancomycin 9.6 mcg/mL Last Dose Date 06/06/2024 Last Dose Time 1040 Estimated Glomerular Filtration Rate (eGFR) Collection Time: 06/07/24 5:13 AM Result Value Ref Range Estimated Glomerular Filtration Rate (eGFR) 40 (A) POCT Precision glucose Collection Time: 06/07/24 7:17 AM Result Value Ref Range Glucose Blood, POC 99 70 - 100 mg/dL Assessment and plan Diabetic cellulitis with soft tissue abscess of [...] for OR today Pain control as needed Atrial fibrillation on Eliquis Given the fact that the patient will likely go to the operating room, I will hold Eliquis, and initiate prophylactic Lovenox until postoperative Continue Coreg Diabetes mellitus type 2, [id number] patient's blood sugars are high on arrival and states they have been running in the 200s at home. 15 units Lantus nightly with sliding scale and carb counting Diabetic diet Follow sugars HLD: Continue statin DVT: Lovenox Full Code Greater than 35 minutes of total time spent in patient's care such as (preparation/review of tests,obtaining/reviewing separately obtained history, medically appropriate examination/evaluation, counseling/educating patient/family/caregiver, ordering medications/tests/procedures, referring/communicating with other health rn patient care not separately reported, documentation, and independentlyinterpreting results not separately reported, communicating results to the patient/family/caregiver, and care coordination not separately reported). * Yajaira Cooper PharmD - 06/07/2024 7:29 AM CDT Images from the original note were not included. Random vancomycin level drawn after ~18.5 hours of the first dose is 9.6 Kidney function improved. Scr 2.61 >1.81 Vancomycin 1250 mg q24h will be ordered. Plan to recheck vancomycin levels between 3rd and 4th doseor sooner if renal function declines. documented in this encounter H&P Notes * Shantell Lewis MD - 06/06/2024 4:18 PM CDT History Of Present Illness Karin Davis is a 69 y.o. male with a history of diabetes mellitus type 2, atrial fibrillation on Eliquis, hyperlipidemia, major depressive disorder, who presented to the emergency room complaining of pain and redness in his foot. Patient states symptoms have been going on for about 3 weeks. Patient was treated in the emergency room on June 02 for similar symptoms, was diagnosed with cellulitis, given oral antibiotics, and discharged home. Patient states that he has not improved. He notes significant drainage from the second toe, diffuse redness over the entire foot, swelling, and pain. He feels like his toes have become gradually discolored, particularly the second toe on that right fo ot. He endorses numbness as well. Patient denies any nausea or vomiting and dizziness, CP, or SOB. He has not had fevers that he knows of. In the emergency room on presentation, the patient was found to have a creatinine of 2.61, up from a normal baseline, procalcitonin of 1.34, white blood cell count of 21.3 and CRP of greater than 320. An MRI of the right foot was obtained which showed significant cellulitis and myositis, as well asconcern for a soft tissue abscess. Podiatry was consulted, and the patient is being admitted for IVantibiotics and further care under inpatient status. 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 Surgical History He has no past surgical history on file. Social History He reports that he has never smoked. He has never been exposed to tobacco smoke. He has never used smokeless tobacco. He reports current alcohol use of about 2.0 standard drinks of alcohol per week. He reports that he does not currently use drugs. Family History Family History Problem Relation Age of Onset Macular degeneration Maternal Grandmother Allergies Niacin Medications Medications Prior to Admission Medication Sig Dispense Refill Last Dose apixaban (ELIQUIS) 5 MG tablet Take 1 tablet (5 mg total) by mouth 2 times daily 06/06/2024 at 0400 aspirin EC 81 MG EC tablet Take 1 tablet (81 mg total) by mouth daily 06/06/2024 at 0400 atorvastatin (LIPITOR) 80 MG tablet Take 0.5 tablets (40 mg total) by mouth 06/06/2024 at 0400 carvedilol (COREG) 12.5 MG tablet Take 1 tablet (12.5 mg total) by mouth 1 (one) time each day 06/06/2024 at 0400 doxycycline (Vibramycin) 100 MG capsule Take 1 capsule (100 mg total) by mouth 2 (two) times a day for 14 days 28 capsule 0 06/06/2024 at 0400 Empagliflozin 25 MG tablet Take 25 mg by mouth 06/06/2024 at 0400 glipiZIDE (GLUCOTROL XL) 10 MG 24 hr tablet Take 1 tablet (10 mg total) by mouth 1 (one) time each day Do not crush, chew, or split. 06/06/2024 at 0400 lisinopril (ZESTRIL) 10 MG tablet Take 2 tablets (20 mg total) by mouth 1 (one) time each day metFORMIN (GLUCOPHAGE) 1000 MG tablet Take 1 tablet (1,000 mg total) by mouth 2 (two) times a day with meals 06/06/2024 at 0400 pioglitazone (ACTOS) 45 MG tablet Take 1 tablet (45 mg total) by mouth 06/06/2024 at 0400 UNABLE TO FIND Med Name: Neurvive supplement More than a month Review of Systems All systems reviewed and negative except as mentioned in the HPI Physical Exam Heart Rate: (!) 102 Resp: 16 BP: 119/79 Temp: 36.2 ??C (97.2 ??F) Weight: 89.6 kg (197 lb 8.5 oz) General Appearance: Alert, cooperative, no distress, appears stated age Head: Normocephalic, without obvious abnormality, atraumatic Eyes: PERRL, conjunctiva/corneas clear, EOM's intact Throat: MMM, no erythema Neck: Supple, symmetrical, trachea midline, no adenopathy Back: Symmetric, no curvature, ROM normal, no CVA tenderness Lungs: Clear to auscultation bilaterally, respirations unlabored Chest Wall: No tenderness or deformity Heart: Regular rate and rhythm, S1 and S2 normal, no murmur, rub or gallop Abdomen: Soft, non-tender, bowel sounds active all four quadrants, no masses, no organomegaly Extremities: There is extensive erythema, edema, and warmth of the entire right foot, with black and purpleish discoloration of the second toe on the right, with obvious drainage, bleeding, and purulence noted Pulses: 2+ and symmetric all extremities Skin: Skin color, texture, turgor normal, no rashes or lesions Lymph nodes: Cervical, supraclavicular, and axillary nodes normal Neurologic: CNII-XII intact, normal strength, no tremor Labs: Recent Results (from the past 72 hour(s)) Tissue culture, aerobic Collection Time: 06/06/24 9:36 AM Specimen: Foot, Right; Tissue, Aerobic Tissue Culture Aerobic Result Value Ref Range Gram Stain No organisms seen. No WBC's seen. Tissue Culture, Anaerobic Collection Time: 06/06/24 9:36 AM Specimen: Foot, Right; Tissue, Anaerobic Anaerobic Tissue Culture Result Value Ref Range Gram Stain No organisms seen. No WBC's seen. Covid-19, Gutierrez ID Now, PCR symptomatic Collection Time: 06/06/24 9:55 AM Result Value Ref Range Covid Source Nasal Covid-19, ID Now PCR NEGATIVE Negative APTT Collection Time: 06/06/24 10:00 AM Result Value Ref Range aPTT 40 (H) 28 - 37 seconds CBC auto differential Collection Time: 06/06/24 10:00 AM Result Value Ref Range WBC 21.3 (H) 3.5 - 10.5 K/uL RBC 5.56 4.30 - 5.70 M/uL Hemoglobin 16.7 13.5 - 17.5 g/dL Hematocrit 51.3 (H) 38.0 - 50.0 % Platelets 302 150 - 450 K/uL MCV 92.3 81.2 - 95.1 fL MCH 30.0 26.0 - 32.0 pg MCHC 32.6 32.0 - 36.0 g/dL RDW 14.7 11.8 - 15.6 % NRBC %, Automated 0 % NRBC Absolute, Autmated 0.00 K/uL Neutrophils 91.0 % Absolute Neutrophils 19.4 (H) 1.7 - 7.0 K/uL Lymphocytes % 3.0 % Absolute Lymphocytes 0.6 (L) 0.9 - 2.9 K/uL Monocytes % 5.0 % Monocytes Absolute 1.1 (H) 0.3 - 0.9 K/uL Eosinophils 1.0 % Absolute Eosinophils 0.2 0.1 - 0.5 K/uL Basophils 0.0 % Absolute Basophils 0.0 0.0 - 0.1 K/uL Immature Leukocytes 0.0 % Immature Leukocytes Absolute 0.00 0.00 - 0.04 K/uL Basic metabolic panel Collection Time: 06/06/24 10:00 AM Result Value Ref Range Sodium 134 (L) 135 - 145 mEq/L Potassium 4.5 3.5 - 5.1 mEq/L Chloride 98 98 - 107 mEq/L CO2 24 22 - 31 mmol/L Creatinine 2.61 (H) 0.60 - 1.40 mg/dL BUN 78 (HH) 5 - 25 mg/dL Glucose 254 (H) 70 - 100 mg/dL Calcium, Total,S 9.6 8.4 - 10.2 mg/dL Anion Gap 12 4 - 13 Fasting? Unknown Lactate, plasma Collection Time: 06/06/24 10:00 AM Result Value Ref Range Lactate 1.3 0.5 - 2.0 mmol/L Magnesium Collection Time: 06/06/24 10:00 AM Result Value Ref Range Magnesium 2.5 (H) 1.6 - 2.3 mg/dL Protime-INR Collection Time: 06/06/24 10:00 AM Result Value Ref Range Protime 19.0 (H) 9.4 - 12.5 seconds INR 1.6 C-reactive protein Collection Time: 06/06/24 10:00 AM Result Value Ref Range CRP >320.0 (H) 0.0 - 4.9 mg/L Procalcitonin Collection Time: 06/06/24 10:00 AM Result Value Ref Range Procalcitonin 1.34 (H) 0.00 - 0.07 ng/mL Blood gas, venous Collection Time: 06/06/24 10:00 AM Result Value Ref Range pH, Jorge 7.37 7.32 - 7.43 pCO2, Jorge 44 41 - 54 mm Hg HCO3, Venous 25.4 22.0 - 29.0 mmol/L Base Excess/Deficit Venous -0.2 -2.0 - 3.0 mmol/L Reflexed Manual Diff Collection Time: 06/06/24 10:00 AM Result Value Ref Range Manual Differential PERFORMED Total Counted 100 Morphology Collection Time: 06/06/24 10:00 AM Result Value Ref Range Slide Review PERFORMED RBC Morphology NORMAL PLT Morphology ADEQUATE Estimated Glomerular Filtration Rate (eGFR) Collection Time: 06/06/24 10:00 AM Result Value Ref Range Estimated Glomerular Filtration Rate (eGFR) 26 (A) POCT Precision glucose Collection Time: 06/06/24 1:56 PM Result Value Ref Range Glucose Blood, POC 249 (H) 70 - 100 mg/dL POCT Precision glucose Collection Time: 06/06/24 6:15 PM Result Value Ref Range Glucose Blood, POC 229 (H) 70 - 100 mg/dL POCT Precision glucose Collection Time: 06/06/24 10:25 PM Result Value Ref Range Glucose Blood, POC 220 (H) 70 - 100 mg/dL CBC ([facility] [employer]) Collection Time: 06/07/24 5:13 AM Result Value Ref Range WBC 16.4 (H) 3.5 - 10.5 K/uL RBC 4.95 4.30 - 5.70 M/uL Hemoglobin 14.8 13.5 - 17.5 g/dL Hematocrit 45.4 38.0 - 50.0 % Platelets 281 150 - 450 K/uL MCV 91.7 81.2 - 95.1 fL MCH 29.9 26.0 - 32.0 pg MCHC 32.6 32.0 - 36.0 g/dL RDW 15.1 11.8 - 15.6 % NRBC %, Automated 0 % NRBC Absolute, Autmated 0.00 K/uL Basic metabolic panel Collection Time: 06/07/24 5:13 AM Result Value Ref Range Sodium 138 135 - 145 mEq/L Potassium 4.0 3.5 - 5.1 mEq/L Chloride 107 98 - 107 mEq/L CO2 22 22 - 31 mmol/L Creatinine 1.81 (H) 0.60 - 1.40 mg/dL BUN 55 (H) 5 - 25 mg/dL Glucose 125 (H) 70 - 100 mg/dL Calcium, Total,S 9.1 8.4 - 10.2 mg/dL Anion Gap 9 4 - 13 Fasting? Yes Vancomycin Collection Time: 06/07/24 5:13 AM Result Value Ref Range Vancomycin 9.6 mcg/mL Last Dose Date 06/06/2024 Last Dose Time 1040 Estimated Glomerular Filtration Rate (eGFR) Collection Time: 06/07/24 5:13 AM Result Value Ref Range Estimated Glomerular Filtration Rate (eGFR) 40 (A) POCT Precision glucose Collection Time: 06/07/24 7:17 AM Result Value Ref Range Glucose Blood, POC 99 70 - 100 mg/dL MRI foot right wo IV contrast Result Date: 06/06/2024 For Patients: As a result of the 21st Century Cures Act, medical imaging exams and procedure reports are released immediately into your electronic medical record. You may view this report before yourreferring provider. If you have questions, please contact your health [...] to the 3rd metatarsal shaft and also alongthe plantar and plantar medial aspects of the [...] MD @ 06/06/2024 1:24:26 PM Dictated by: MD Ebony @ 06/06/2024 13:24:37 (Electronically Signed) XR foot right 3+ views Result Date: 06/03/2024 INDICATION: Diabetic foot ulcer, swelling COMPARISON: None FINDINGS: Mild soft tissue swelling overthe distal phalanx 1st toe. Mild degenerative change 1st MTP and 1st IP joint. No acute fracture. No periosteal reaction or cortical destruction to suggest osteomyelitis. Scattered vascular calcifications. Soft tissue swelling. No radiographic evidence of osteomyelitis. Assessment and plan Diabetic cellulitis with soft tissue abscess of [...] for OR today Pain control as needed Atrial fibrillation on Eliquis Given the fact that the patient will likely go to the operating room, I will hold Eliquis, and initiate prophylactic Lovenox until postoperative Continue Coreg Diabetes mellitus type 2, [id number] patient's blood sugars are high on arrival and states they have been running in the 200s at home. 15 units Lantus nightly with sliding scale and carb counting Diabetic diet Follow sugars HLD: Continue statin DVT: Lovenox Full Code documented in this encounter Procedure Notes * Evelyn Aleman BSN - 06/15/2024 7:05 PM CDTAssociated Order(s): Vascular Line Placement Vascular Access Insertion Procedure Information Procedure performed: PICC Reason for insertion: intravenous antibiotics Current IV access: peripheral IV Inserting Clinician: Shop Laborer: DAX QUILES,RN,CRNI Inserting RN: EVELYN ALEMAN,RN Preanesthetic Checklist Completed: patient identified, IV checked, [...] PM Catheter Fr Size: 3 Lot #: [id number] Number of lumens: single lumen Analgesia used: [...] written instructions with verbal review of such: 1) [facility] handout Peripherally Inserted Central Line 2) [facility] handout Discharge Instructions: Caring for Your Peripherally Inserted Central Catheter 3) Up-to-Date handout Care of PICC. Answered all pt's questions; pt states un derstanding. MeU documented in this encounter Consult Notes * Janice Woodall, RD - 06/15/2024 9:57 AM CDT Karin Davis 1955 Diagnosis: Patient Active Problem List Diagnosis Atrial fibrillation (HCC) Compression fracture of vertebra (HCC) Confusion Dizziness Essential hypertension General medical exam Glaucoma Headache Herpes simplex High aspartate aminotransferase level Inguinal hernia Major depressive disorder Migraine headache with aura Mixed hyperlipidemia Obstructive sleep apnea syndrome in adult Presbyopia Stroke (HCC) Type 2 diabetes mellitus with diabetic neuropathy, unspecified (HCC) Unspecified systolic (congestive) heart failure (HCC) Type 2 diabetes mellitus (HCC) Type 2 diabetes mellitus with hyperglycemia (HCC) Cerebral infarction, unspecified (HCC) Hypomagnesemia Vitamin D3 deficiency Infection of right foot Reason for Referral: reviewed chart due to LOS Recent Oral Intake:Adequate intake Weight Loss:Weight Stable BMI:>25 kg/m2 Body mass index is 26.07 kg/m??. Anthropometrics: Anthropometrics Usual Body Weight: 91.4 kg (201 lb 8 oz) Timeframe for Weight Change: 3-weeks Admission Weight Used for % Change Calculations: 89.6 kg (197 lb 8.5 oz) Percentage % Weight Change: -1.97 % Labs: Lab Results Component Value Date NA 136 06/15/2024 K 4.0 06/15/2024 GLUCOSE 117 (H) 06/15/2024 HGBA1C 9.0 (H) 06/06/2024 HGB 14.9 06/15/2024 CREATININE 1.05 06/15/2024 BUN 17 06/15/2024 Energy Needs: Calculated Energy Needs Using Equations Height: 185.4 cm (6' 0.99) Weight Used for Equation Calculations: 89.6 kg (197 lb 8.5 oz) [place] Equation: [address] [place] Equation: 1725 Equation Chosen to Use by RD: [address] [place] Activity Factor: 1.2 Total Energy Needs: 2069 Temp: (!) 36.1 ??C (96.9 ??F) Estimated Protein Needs Total Protein Estimated Needs: 90-108 grams Method for Estimating Needs: 1-1.2 gram/kg Fluid Needs Total Fluid Estimated Needs: 2700 ml Method for Estimating Needs: 30 ml/kg Edema Masking Weight Loss: no Reduced zinc etcher strength: no Current Diet: 60 gram carbohydrate controlled diet Nutrition Diagnosis:Increased nutrient needs related to Increased nutritional demands for healing as evidenced by Presence of wounds (surgery/I&D). Plan/Monitor/Evaluate: Daily weights, Meals/Snacks, and MVI Malnutrition Screening Assessment Have you recently lost weight without trying?: No Weight Loss Score: 0 Have you been eating poorly because of a decreased appetite?: No Malnutrition Score: 0 Patient has been tolerating p.o. well. Good appetite, eating 100% of meals. No N/V/D. No weights taken since admission. Recommend weight check as able. * Amairani Sigala MD - 06/11/2024 9:41 AM CDT INFECTIOUS DISEASES progress note 06/11/24 Reason For Consult: Diabetic foot infection /abscess in the foot Subjective Patient seen and examined. No new issues. Dressing change earlier today by podiatry. Noted bleeding today. He has a sweat rash, not itchy. No nausea vomiting or diarrhea. HISTORY OF PRESENT ILLNESS It is my pleasure to see Karin Davis is a 69 y.o. male at the request of Thu hBagat PA-C with past medical history significant for [...] total) by mouth 2 times daily Yes Provider, MD Jake aspirin EC 81 MG EC tablet Take 1 tablet (81 mg total) by mouth daily Yes Provider, MD Jake atorvastatin (LIPITOR) 80 MG tablet Take 0.5 tablets (40 mg total) by mouth 1 (one) time each day 04/27/24 Yes Provider, MD Jake carvedilol (COREG) 12.5 MG tablet Take 1 [...] Objective PHYSICAL EXAM Visit Vitals BP (!) 103/49 (BP Location: Right arm, Patient Position: Lying) Pulse (!) 101 Temp 36.3 ??C (97.4 ??F) (Temporal) Resp 15 Ht 1.854 m (6' 0.99) Wt 89.6 kg (197 lb 8.5 oz) SpO2 91% BMI 26.07 kg/m?? Smoking Status Never BSA 2.15 m?? Physical Exam GENERAL: No acute distress. HEENT: OP clear - non icteric sclera, - no thrush, no ulcers NECK: Supple, CHEST: comfortable breathing ABDOMEN: Soft. Nontender. Nondistended. Extremities: Right foot with dressing. Right lower extremity with evidence of arteaga cellulitis mild tenderness but no redness. Dressing was blood No open wounds on the left. SKIN: Sweat rash noted over the back NEURO: Awake, alert, and oriented to baseline. No acute focal sensorimotor deficits. PIV site is clean LAB STUDIES Lab Results Component Value Date WBC 14.5 (H) 06/11/2024 HGB 15.3 06/11/2024 HCT 46.8 06/11/2024 MCV 91.9 06/11/2024 PLT 389 06/11/2024 Lab Results Component Value Date GLUCOSE 173 (H) 06/11/2024 CALCIUM 9.5 06/11/2024 NA 138 06/11/2024 K 4.2 06/11/2024 CO2 25 06/11/2024 CL 104 06/11/2024 BUN 24 06/11/2024 CREATININE 1.20 06/11/2024 Lab Results Component Value Date CRP >320.0 (H) 06/06/2024 No results found for: ALT, AST, GGT, ALKPHOS, BILITOT No results found for: [id number] No results found for: HAV, HEPAIGM, HEPBIGM, HEPBCAB, HBEAG, HEPCAB No results found for: HIV1X2 MICROBIOLOGY Reviewed, Staph aureus on culture from surgery on 06/08/2024, Culture from 06/06/2024 with MSSA IMAGING MRI of the foot on 06/06/2024 [...] MSSA infection Comment: Patient seen and examined. He is scheduled to have surgery tomorrow. White count is a tad lower today. Op note were reviewed with extensive abscess in the midfoot extending from the second MPJ to the ankle and to the arch, large pocket of purulent drainage was found in the dorsal foot, with removal ofthe second metatarsal and the second metatarsal head. This is an extensive skin and soft tissue infection secondary to MSSA the patient may need IV antibiotic at discharge. He is awaiting further surgery this coming week. Currently on ertapenem to cover MSSA and possible anaerobes Recommendations: -Continue ertapenem at 1 g IV daily - Will await further culture result but also will await further op findings. - Patient will need IV antibiotic at discharge. We can stay with ertapenem if no other new culturespositive with the plan to treat him for 4 to 6 weeks. -I added liver function test to his blood work -Monitor blood work on antibiotic. Surgery in a.m. I am off service after today- Greater than 30 minutes of total time spent in patient's care such as (preparation/review of tests,obtaining/reviewing separately obtained history, medically appropriate examination/evaluation, counseling/educating patient/family/caregiver, ordering medications/tests/procedures, referring/communicating with other health rn patient care not separately reported, documentation, and independentlyinterpreting results not separately reported, communicating results to the patient/family/caregiver, and care coordination not separately reported). Amairani Strickland MD Infectious diseases Chief Commercial Officer * Amairani Sigala MD - 06/10/2024 10:17 AM CDT INFECTIOUS DISEASES progress note 06/10/24 Reason For Consult: Diabetic foot infection /abscess in the foot Subjective Patient seen and examined. No current issues. No fever, no side effect from the antibiotic. Awaiting surgery this coming Saturday HISTORY OF PRESENT ILLNESS It is my pleasure to see Karin Davis is a 69 y.o. male at the [...] total) by mouth 2 times daily Yes Provider, MD Jake aspirin EC 81 MG EC tablet Take 1 tablet (81 mg total) by mouth daily Yes Provider, MD Jake atorvastatin (LIPITOR) 80 MG tablet Take 0.5 tablets (40 mg total) by mouth 1 (one) time each day 04/27/24 Yes Provider, MD Jake carvedilol (COREG) 12.5 MG tablet Take 1 [...] MD Objective PHYSICAL EXAM Visit Vitals BP 120/79 Pulse (!) 107 Temp 36.2 ??C (97.1 ??F) (Temporal) Resp 19 Ht 1.854 m (6' 0.99) Wt 89.6 kg (197 lb 8.5 oz) SpO2 91% BMI 26.07 kg/m?? Smoking Status Never BSA 2.15 m?? Physical Exam GENERAL: No acute distress. HEENT: OP clear - non icteric sclera, - no thrush, no ulcers NECK: Supple, CHEST: comfortable breathing ABDOMEN: Soft. Nontender. Nondistended. Extremities: Right foot with dressing. Right lower extremity with evidence of arteaga cellulitis with warmth and redness possibly less than yesterday No open wounds on the left. SKIN: Sweat rash noted over the back NEURO: Awake, alert, and oriented to baseline. No acute focal sensorimotor deficits. PIV site is clean LAB STUDIES Lab Results Component Value Date WBC 15.2 (H) 06/10/2024 HGB 15.2 06/10/2024 HCT 47.1 06/10/2024 MCV 94.2 06/10/2024 PLT 347 06/10/2024 Lab Results Component Value Date GLUCOSE 139 (H) 06/10/2024 CALCIUM 9.3 06/10/2024 NA 138 06/10/2024 K 4.2 06/10/2024 CO2 24 06/10/2024 CL 107 06/10/2024 BUN 24 06/10/2024 CREATININE 1.23 06/10/2024 Lab Results Component Value Date CRP >320.0 (H) 06/06/2024 No results found for: ALT, AST, GGT, ALKPHOS, BILITOT No results found for: [id number] No results found for: HAV, HEPAIGM, HEPBIGM, HEPBCAB, HBEAG, HEPCAB No results found for: HIV1X2 MICROBIOLOGY Reviewed, Staph aureus on culture from surgery on 06/08/2024, Culture from 06/06/2024 with MSSA IMAGING MRI of the foot on 06/06/2024 [...] MSSA infection Comment: Patient seen and examined. Continues to have some right lower extremity cellulitis with some swelling and redness appears to be less than yesterday but still active Op note were reviewed with extensive abscess in the midfoot extending from the second MPJ to the ankle and to the arch, large pocket of purulent drainage was found in the dorsal foot, with removal ofthe second metatarsal and the second metatarsal head. This is an extensive skin and soft tissue infection secondary to MSSA the patient may need IV antibiotic at discharge. He is awaiting further surgery this coming week. Currently on ertapenem to cover MSSA and possible anaerobes Recommendations: -Continue ertapenem at 1 g IV daily - Will await further culture result but also will await further op findings. - He may need IV antibiotic at discharge given the extensive infection -Monitor blood work on antibiotic. Trend WBC ? Surgery earlier than Saturday ? Discussed with the patient in detail discussed with Dr. Lewis Greater than 30 minutes of total time spent in patient's care such as (preparation/review of tests,obtaining/reviewing separately obtained history, medically appropriate examination/evaluation, counseling/educating patient/family/caregiver, ordering medications/tests/procedures, referring/communicating with other health rn patient care not separately reported, documentation, and independentlyinterpreting results not separately reported, communicating results to the patient/family/caregiver, and care coordination not separately reported). Amairani Strickland MD Infectious diseases Chief Commercial Officer * Amairani Sigala MD - 06/09/2024 3:14 PM CDTAssociated Order(s): IP CONSULT TO INFECTIOUS DISEASES INFECTIOUS DISEASES CONSULTATION 06/09/24 Reason For Consult: Diabetic foot infection /abscess in the foot Subjective Requesting MD: Dr. Lewis HISTORY OF PRESENT ILLNESS It is my pleasure to see Karin Davis is a 69 y.o. male at the [...] Sick contact: neg - recent antimicrobials: Doxycycline/ PAST MEDICAL HISTORY Past Medical History: Diagnosis Date Atrial fibrillation [...] 2 diabetes mellitus with diabetic neuropathy, unspecified ([facility]) 09/22/2012 Unspecified systolic (congestive) heart failure ([facility]) 05/23/2018 PAST SURGICAL HISTORY History reviewed. No pertinent surgical history. FAMILY HISTORY Family History Problem Relation Age of Onset Macular degeneration Maternal Grandmother SOCIAL HISTORY Patient reports that he has never smoked. He has never been exposed to tobacco smoke. He has never used smokeless tobacco. He reports current alcohol use of about 2.0 standard drinks of alcohol per week. He reports that he does not currently use drugs. ALLERGIES: Niacin MEDICATIONS Prior to Admission medications Medication Sig [...] Objective PHYSICAL EXAM Visit Vitals BP (!) 112/91 (BP Location: Left arm, Patient Position: Lying) Pulse (!) 106 Temp 36.7 ??C (98.1 ??F) (Temporal) Resp 25 Ht 1.854 m (6' 0.99) Wt 89.6 kg (197 lb 8.5 oz) SpO2 92% BMI 26.07 kg/m?? Smoking Status Never BSA 2.15 m?? Physical Exam GENERAL: No acute distress. HEENT: OP clear - non icteric sclera, - no thrush, no ulcers NECK: Supple, no lymphadenopathy CHEST: comfortable breathing HEART: Regular rate and rhythm. No murmurs, rubs, gallops. LUNGS: Clear to auscultation bilaterally. ABDOMEN: Soft. Nontender. Nondistended. Extremities: Right foot with dressing. No open wounds on the left. SKIN: No acute rashes. NEURO: Awake, alert, and oriented to baseline. No acute focal sensorimotor deficits. PIV site is clean LAB STUDIES Lab Results Component Value Date WBC 13.8 (H) 06/09/2024 HGB 14.9 06/09/2024 HCT 47.0 06/09/2024 MCV 93.1 06/09/2024 PLT 334 06/09/2024 Lab Results Component Value Date GLUCOSE 113 (H) 06/09/2024 CALCIUM 9.2 06/09/2024 NA 137 06/09/2024 K 4.2 06/09/2024 CO2 24 06/09/2024 CL 108 (H) 06/09/2024 BUN 29 (H) 06/09/2024 CREATININE 1.21 06/09/2024 Lab Results Component Value Date CRP >320.0 (H) 06/06/2024 No results found for: ALT, AST, GGT, ALKPHOS, BILITOT No results found for: [id number] No results found for: HAV, HEPAIGM, HEPBIGM, HEPBCAB, HBEAG, HEPCAB No results found for: HIV1X2 MICROBIOLOGY Reviewed, Staph aureus on culture from surgery on 06/08/2024, Culture from 06/06/2024 with MSSA IMAGING MRI of the foot on 06/06/2024 [...] MSSA infection Comment: Patient seen and examined. Op note were reviewed with extensive abscess in the midfoot extending from the second MPJ to the ankle and to the arch, large pocket of purulent drainage was found in the dorsal foot, with removal ofthe second metatarsal and the second metatarsal head. This is an extensive skin and soft tissue infection secondary to MSSA the patient may need IV antibiotic at discharge. He is awaiting further surgery this coming week. I will change antibiotic to ertapenem which will provide adequate coverage for MSSA and possible anaerobes. No gram-negative's were on cultures. No need for Vanco Recommendations: -DC vancomycin cefepime and Flagyl - Will switch to ertapenem at 1 g IV daily - Will await further culture result but also will await further op findings. - He may need IV antibiotic at discharge given the extensive infection -Monitor blood work on antibiotic Discussed with the patient in detail discussed with Dr. Lewis Greater than 55 minutes of total time spent in patient's care such as (preparation/review of tests,obtaining/reviewing separately obtained history, medically appropriate examination/evaluation, counseling/educating patient/family/caregiver, ordering medications/tests/procedures, referring/communicating with other health rn patient care not separately reported, documentation, and independentlyinterpreting results not separately reported, communicating results to the patient/family/caregiver, and care coordination not separately reported). Amairani Strickland MD Infectious diseases Chief Commercial Officer * Steve Lopez, DPM - 06/07/2024 11:25 AM CDTAssociated Order(s): IP CONSULT TO PODIATRY Reason For Consult Right foot infection Requesting MD Shantell Lewis MD History Of Present Illness Karin Davis is a 69 y.o. male presenting with a history of uncontrolled diabetes mellitus type 2, atrial fibrillation on Eliquis, hyperlipidemia, major depressive disorder, who presented to the emergency room yesterday complaining of pain and redness in his foot. Patient states symptoms have been going on for about 3 weeks. Patient was treated in the emergency room on June 02 for similar symptoms, was diagnosed with cellulitis, given oral antibiotics, and discharged home. Patient states that he has not improved. He notes significant drainage from the second toe, diffuse redness over theentire foot, swelling, and pain. He feels like his toes have become gradually discolored, particularly the second toe on that right foot. In the emergency room on presentation, the patient was found to have a white blood cell count of 21.3 and CRP of greater than 320. An MRI of the right foot was obtained which showed significant cellulitis and myositis, as well as concern for a soft tissue abscess. Podiatry was consulted, and the patient was admitted for IV antibiotics and further care under inpatient status. Patient is seen today resting comfortably in his bed with no dressing on the foot. He is afebrile. He rates his foot pain 4/10. 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 Surgical History He has no past surgical history on file. Family History He Family History Problem Relation Age of Onset Macular degeneration Maternal Grandmother Social History He reports that he has never smoked. He has never been exposed to tobacco smoke. He has never used smokeless tobacco. He reports current alcohol use of about 2.0 standard drinks of alcohol per week. He reports that he does not currently use drugs. Allergies Niacin Medications Medications Prior to Admission Medication Sig Dispense Refill Last Dose apixaban (ELIQUIS) 5 MG tablet Take 1 tablet (5 mg total) by mouth 2 times daily 06/06/2024 at 0400 aspirin EC 81 MG EC tablet Take 1 tablet (81 mg total) by mouth daily 06/06/2024 at 0400 atorvastatin (LIPITOR) 80 MG tablet Take 0.5 tablets (40 mg total) by mouth 06/06/2024 at 0400 carvedilol (COREG) 12.5 MG tablet Take 1 tablet (12.5 mg total) by mouth 1 (one) time each day 06/06/2024 at 0400 doxycycline (Vibramycin) 100 MG capsule Take 1 capsule (100 mg total) by mouth 2 (two) times a day for 14 days 28 capsule 0 06/06/2024 at 0400 Empagliflozin 25 MG tablet Take 25 mg by mouth 06/06/2024 at 0400 glipiZIDE (GLUCOTROL XL) 10 MG 24 hr tablet Take 1 tablet (10 mg total) by mouth 1 (one) time each day Do not crush, chew, or split. 06/06/2024 at 0400 lisinopril (ZESTRIL) 10 MG tablet Take 2 tablets (20 mg total) by mouth 1 (one) time each day metFORMIN (GLUCOPHAGE) 1000 MG tablet Take 1 tablet (1,000 mg total) by mouth 2 (two) times a day with meals 06/06/2024 at 0400 pioglitazone (ACTOS) 45 MG tablet Take 1 tablet (45 mg total) by mouth 06/06/2024 at 0400 UNABLE TO FIND Med Name: Neurvive supplement More than a month Review of Systems Denies chest pain, calf pain, shortness of breath Last Recorded Vitals Blood pressure 119/79, pulse (!) 106, temperature 36.5 ??C (97.7 ??F), temperature source Temporal,resp. rate 16, height 1.854 m (6' 0.99), weight 89.6 kg (197 lb 8.5 oz), SpO2 93%. Physical Exam Vasc: pedal puses palpable. CFT severely delayed to right 2nd toe, intact to 3, 4, 5, 1. Extensive pitting edema right foot. Neuro: neuropathic bilateral Derm: ulceration right foot sub first met head without drainage. Ulceration dorsal second toe with serosanguinous active drainage. Right 2nd toe is purple and dusky Relevant Results Recent Results (from the past 24 hour(s)) Tissue culture, aerobic Collection Time: 06/06/24 9:36 AM Specimen: Foot, Right; Tissue, Aerobic Tissue Culture Aerobic Result Value Ref Range Gram Stain No organisms seen. No WBC's seen. Tissue Culture, Anaerobic Collection Time: 06/06/24 9:36 AM Specimen: Foot, Right; Tissue, Anaerobic Anaerobic Tissue Culture Result Value Ref Range Gram Stain No organisms seen. No WBC's seen. Covid-19, Gutierrez ID Now, PCR symptomatic Collection Time: 06/06/24 9:55 AM Result Value Ref Range Covid Source Nasal Covid-19, ID Now PCR NEGATIVE Negative APTT Collection Time: 06/06/24 10:00 AM Result Value Ref Range aPTT 40 (H) 28 - 37 seconds CBC auto differential Collection Time: 06/06/24 10:00 AM Result Value Ref Range WBC 21.3 (H) 3.5 - 10.5 K/uL RBC 5.56 4.30 - 5.70 M/uL Hemoglobin 16.7 13.5 - 17.5 g/dL Hematocrit 51.3 (H) 38.0 - 50.0 % Platelets 302 150 - 450 K/uL MCV 92.3 81.2 - 95.1 fL MCH 30.0 26.0 - 32.0 pg MCHC 32.6 32.0 - 36.0 g/dL RDW 14.7 11.8 - 15.6 % NRBC %, Automated 0 % NRBC Absolute, Autmated 0.00 K/uL Neutrophils 91.0 % Absolute Neutrophils 19.4 (H) 1.7 - 7.0 K/uL Lymphocytes % 3.0 % Absolute Lymphocytes 0.6 (L) 0.9 - 2.9 K/uL Monocytes % 5.0 % Monocytes Absolute 1.1 (H) 0.3 - 0.9 K/uL Eosinophils 1.0 % Absolute Eosinophils 0.2 0.1 - 0.5 K/uL Basophils 0.0 % Absolute Basophils 0.0 0.0 - 0.1 K/uL Immature Leukocytes 0.0 % Immature Leukocytes Absolute 0.00 0.00 - 0.04 K/uL Basic metabolic panel Collection Time: 06/06/24 10:00 AM Result Value Ref Range Sodium 134 (L) 135 - 145 mEq/L Potassium 4.5 3.5 - 5.1 mEq/L Chloride 98 98 - 107 mEq/L CO2 24 22 - 31 mmol/L Creatinine 2.61 (H) 0.60 - 1.40 mg/dL BUN 78 (HH) 5 - 25 mg/dL Glucose 254 (H) 70 - 100 mg/dL Calcium, Total,S 9.6 8.4 - 10.2 mg/dL Anion Gap 12 4 - 13 Fasting? Unknown Lactate, plasma Collection Time: 06/06/24 10:00 AM Result Value Ref Range Lactate 1.3 0.5 - 2.0 mmol/L Magnesium Collection Time: 06/06/24 10:00 AM Result Value Ref Range Magnesium 2.5 (H) 1.6 - 2.3 mg/dL Protime-INR Collection Time: 06/06/24 10:00 AM Result Value Ref Range Protime 19.0 (H) 9.4 - 12.5 seconds INR 1.6 C-reactive protein Collection Time: 06/06/24 10:00 AM Result Value Ref Range CRP >320.0 (H) 0.0 - 4.9 mg/L Procalcitonin Collection Time: 06/06/24 10:00 AM Result Value Ref Range Procalcitonin 1.34 (H) 0.00 - 0.07 ng/mL Blood gas, venous Collection Time: 06/06/24 10:00 AM Result Value Ref Range pH, Jorge 7.37 7.32 - 7.43 pCO2, Jorge 44 41 - 54 mm Hg HCO3, Venous 25.4 22.0 - 29.0 mmol/L Base Excess/Deficit Venous -0.2 -2.0 - 3.0 mmol/L Reflexed Manual Diff Collection Time: 06/06/24 10:00 AM Result Value Ref Range Manual Differential PERFORMED Total Counted 100 Morphology Collection Time: 06/06/24 10:00 AM Result Value Ref Range Slide Review PERFORMED RBC Morphology NORMAL PLT Morphology ADEQUATE Estimated Glomerular Filtration Rate (eGFR) Collection Time: 06/06/24 10:00 AM Result Value Ref Range Estimated Glomerular Filtration Rate (eGFR) 26 (A) POCT Precision glucose Collection Time: 06/06/24 1:56 PM Result Value Ref Range Glucose Blood, POC 249 (H) 70 - 100 mg/dL POCT Precision glucose Collection Time: 06/06/24 6:15 PM Result Value Ref Range Glucose Blood, POC 229 (H) 70 - 100 mg/dL POCT Precision glucose Collection Time: 06/06/24 10:25 PM Result Value Ref Range Glucose Blood, POC 220 (H) 70 - 100 mg/dL CBC ([facility]) Collection Time: 06/07/24 5:13 AM Result Value Ref Range WBC 16.4 (H) 3.5 - 10.5 K/uL RBC 4.95 4.30 - 5.70 M/uL Hemoglobin 14.8 13.5 - 17.5 g/dL Hematocrit 45.4 38.0 - 50.0 % Platelets 281 150 - 450 K/uL MCV 91.7 81.2 - 95.1 fL MCH 29.9 26.0 - 32.0 pg MCHC 32.6 32.0 - 36.0 g/dL RDW 15.1 11.8 - 15.6 % NRBC %, Automated 0 % NRBC Absolute, Autmated 0.00 K/uL Basic metabolic panel Collection Time: 06/07/24 5:13 AM Result Value Ref Range Sodium 138 135 - 145 mEq/L Potassium 4.0 3.5 - 5.1 mEq/L Chloride 107 98 - 107 mEq/L CO2 22 22 - 31 mmol/L Creatinine 1.81 (H) 0.60 - 1.40 mg/dL BUN 55 (H) 5 - 25 mg/dL Glucose 125 (H) 70 - 100 mg/dL Calcium, Total,S 9.1 8.4 - 10.2 mg/dL Anion Gap 9 4 - 13 Fasting? Yes Vancomycin Collection Time: 06/07/24 5:13 AM Result Value Ref Range Vancomycin 9.6 mcg/mL Last Dose Date 06/06/2024 Last Dose Time 1040 Estimated Glomerular Filtration Rate (eGFR) Collection Time: 06/07/24 5:13 AM Result Value Ref Range Estimated Glomerular Filtration Rate (eGFR) 40 (A) POCT Precision glucose Collection Time: 06/07/24 7:17 AM Result Value Ref Range Glucose Blood, POC 99 70 - 100 mg/dL Assessment/Plan Principal Problem: Infection of right foot Plan for surgery tomorrow early afternoon: right 2nd toe amputation, incision and drainage with wound debridement. Possible transmetatarsal amputation with gastroc lengthening. I reviewed risks and benefits with patient as well complications. Consent signed Continue IV antibiotics as scheduled, no additional intr-op antibiotics ordered Will obtain aerobic and anaerobic wound cultures, bone for path from 2nd toe and tissue culture Patient will need close follow up in wound care center upon discharge. Will consult inpatient wound care once surgery is completed as well as infectious disease Dress placed on foot today. Podiatry will continue to follow Time Spent with Patient: 60 documented in this encounter Nursing Notes * Evelyn Aleman BSN - 06/15/2024 9:05 PM CDT PICC PLACEMENT 2104: Radiology report received on PICC placement states PICC terminates at the cavoatrial junction. Telephone call to Maggie Lopez RN charge on Med/Surg and informed that PICC line maynow be used. MeU * Evelyn Aleman BSN - 06/15/2024 6:59 PM CDT PICC LINE ADJUSTMENT 1944: After first Xray for confirmation of placement, PICC line required beingpulled back 4 cm. Undressed PICC line, retracted PICC line 4 cm (thus 9 cm are now visible), new sterile dressing and Biopatch applied. Another Xray order placed. Awaiting Xray results. MeU * Domi Mcdonald RN - 06/09/2024 5:07 PM CDT JT received 2 doses of diltiazem today per EKG showing A-Fib w/ RVR. Patient's heart rate decreasedto the low 90s, but since has increased to over 115bpm. Patient received the second dose of diltiazem at 1548 and at 1713 current HR of 94. Patient has been drowsy today, but remains AxOx4. Patient'sR foot wound dressing remains clean, dry, and intact with daily dressing changes from provider John. No s/s of infection noted and pt is afebrile. Patient remains vitally stable with the exceptionof tachycardia. documented in this encounter OR Notes * Op Note - Angel Coombs DPM - 06/12/2024 4:43 PM CDT Prior to signing consent today, discussed possible risks and complications. - Discussed complications associated with foot and ankle surgery including infection rate around 1 to 2%, DVT risk of 1 to 2% and delayed or nonhealing. Explained to the patient that DVT's are blood clots and can move to the lungs and potentially result in . Discussed continued pain even aftersurgery. Also explained to the patient that there is a risk of post operative pain and post operative swelling, slow healing or non-healing incisions, inability to achieve the desired result, temporary or permanent numbness in the foot or ankle, complex regional pain syndrome which is a nerve pain syndrome that is rare but can occur, non-union which means that bones do not heal together as planned, need for surgery again in the future, and or possible need to remove hardware in the future. Date of Surgery: 06/12/2024 Surgeon: Dr. Coombs Shop Laborer:none Pre-op Diagnosis: Ulceration right foot status post partial second ray amputation right foot Post-op Diagnosis: Same as preop diagnosis Procedure: Incision and drainage right foot Anesthesia: MAC with local Hemostasis: Ankle tourniquet right ankle at 250 mmHg Estimated Blood Loss: 10 mL Materials: Half-inch iodoform gauze Injectables: 10 mL of Marcaine 0.5% plain Pathology: Aerobic and anaerobic cultures sent Condition: Stable Indications For procedure: Infected ulceration right foot Procedure in detail: Patient was brought to the operating room placed the operating table in supineposition following IV sedation patient was anesthetized with an ankle type block in the right anklewith 10 mL of Marcaine 0.5% plain the right foot was scrubbed prepped and draped in usual aseptic manner raise to 60 degrees for hemostasis tourniquet was inflated Esmarch was not used the sutures were removed the retention sutures that had been placed earlier in the skin these were removed and thewound was completely opened up all necrotic and infected looking tissue was sharply debrided with a15 blade down to bleeding tissue we took deep cultures aerobic and anaerobic with swabs and then flushed the incision out with 5 L of sterile saline with power irrigation. No sutures were placed we packed the wound with iodoform gauze and then dressed it with 4 x 4's ABD pad Kerlix and Volodymyr. Patientwas returned to the recovery room with vital signs stable and vascular status intact to both feet orders were written to continue nonweightbearing and for patient to remain in-house on IV antibiotics medical management per hospitalist podiatry to follow to change dressings and change packing. In the future it is possible that patient if the wound cannot heal and if we cannot close it if infectioncannot be controlled patient may need to have transmetatarsal amputation of the right foot we will discuss this with the patient tomorrow. * Brief Op Note - Angel Coombs DPM - 06/12/2024 4:43 PM CDT Date: 06/06/2024 - 06/12/2024 Location: [facility] OR Name: Karin Davis, : 1955, Diagnosis Pre-op Diagnosis * Infection of right foot [L08.9] Post-op Diagnosis * Infection of right foot [L08.9] Preliminary CPT code(s): No CPT code documented in operative note Procedure(s): INCISION AND DRAINAGE right foot Surgeons and Role: * Angel Coombs DPM - Primary Procedure Summary Anesthesia: Monitored Anesthesia Care ASA: III Estimated Blood Loss: Minimal Staff: Wax Bleacher: Janine Carlton Scrub Person: Sarah Avalos Scott Richard Indications: Karin Davis is an 69 y.o. male who is having surgery for Infection of right foot [L08.9]. Findings: necrotic tissue Complications: None; patient tolerated the procedure well. Disposition: PACU - hemodynamically stable. Condition: stable Attending Attestation: I was present and scrubbed for the entire procedure. Angel Coombs DPM * Op Note - Steve Lopez DPM - 06/08/2024 1:29 PM CDT Operative Note Date: 06/08/2024 Location: [facility] OR Name: Karin Davis, : 1955, Diagnosis Pre-op Diagnosis * Infection of right foot [L08.9] * Type 2 diabetes mellitus with diabetic neuropathy, without long-term current use of insulin (HCC)[E11.40] Post-op Diagnosis * Infection of right foot [L08.9] * Type 2 diabetes mellitus with diabetic neuropathy, without long-term current use of insulin (HCC)[E11.40] Preliminary CPT code(s): No CPT code documented in operative note Procedure(s): Right second toe amputation, right second metatarsal head resection, incision and drainage, wound debridement Surgeons and Role: * Steve Lopez DPM - Primary Procedure Summary Anesthesia: Monitored Anesthesia Care ASA: III Estimated Blood Loss: 10 mL Staff: Wax Bleacher: Ismael Steele RN; Aneesh Salcedo Relief Wax Bleacher: Cole Angel RN Relief Scrub: Janine Kyle Scrub Person: Klarissa Claire; Heaven Cuenca Indications: Karin Davis is an 69 y.o. male who is having surgery for Infection of right foot [L08.9] Type 2 diabetes mellitus with diabetic neuropathy, without long-term current use of insulin (HCC) [E11.40]. Intraoperative Findings: Extensive abscess dorsal midfoot extending from the second MPJ dorsally to the ankle, extensive abscess plantar extending from the second MPJ plantar medial towards the arch, small abscess in second interspace tracking under the hallux Indication for procedure: Patient presenting with the above mentioned diagnosis for the above mentioned procedure. Clinical and radiographic exams confirm the diagnosis. I have discussed pros, cons and complications of the procedure with the patient. The patient has failed conservative treatment options and has opted for surgical intervention today. All questions were answered. No guarantees were given. Consent in chart was reviewed. I read the consent and reviewed in layman's terms each aspect of the proposed procedureto the patient. The patient voiced a complete and full understanding of the proposed procedure. I answered the patient's questions and any questions of any family members that were present for this discussion. The patient was aware that certain parts of the procedure may be called possible meaning that they may or may not be done based on intraoperative judgment. Appropriate lower extremity and surgical site marked preoperatively with patient agreement. Narcotics: I have discussed with patient that they will receive a prescription for opioid medication today to help with pain after surgery. I have reviewed the risks and benefits associated with opioid type pain medication. We have reviewed alternative postoperative pain treatment options includingibuprofen, ice, elevation, and rest. I have also discussed the importance of taking the opioid painmedication as directed and only as needed. Discussed addictive potential. Discussed if patient feels they are becoming addicted that there are treatment options. All questions were answered. An additional handout about narcotic medication was dispensed to the patient today. Description of Procedure: Patient was brought from the preop holding area into the OR and placed on the OR table in a secure Supine position. The above-mentioned anesthesia was administered per the anesthesia team. A well-padded Thigh tourniquet was applied to the operative leg. An injection of 16 cc of a mix of 0.5% Marcaine plain and 2% lidocaine plain was injected into the operative foot. The operative leg was then prepped and draped in normal sterile fashion with cloraprep. Timeout was performed and all were in agreement. The operative lower extremity was elevated and the tourniquet was inflated to 300 mmHg. Procedure Details: Procedure #1: attention was directed to the right foot where a nohemy-shaped incision was planned on the skin to excise the second toe. The planned incision was carried out sharply down to bone. Immediate incision produced a copious amount of purulent discharge from the first and second intermetatarsal spaces. The second toe was disarticulated at the metatarsal phalangeal joint and placed in a formalin specimen cup to be sent for pathology labeled right second toe. Blunt dissection was carriedout dorsally along the extensor tendons and a large pocket of purulent discharge was continually expressed from this large abscess on the dorsum of the foot. Expressed drainage from this abscess is completely purulent. Most of the tissue visible is liquefied with purulent drainage. Further blunt dissection was carried out under the second metatarsal and a sinus track was found under the second metatarsal probing towards the medial arch. Expressed drainage from the sinus tract was serosanguineous. Another probing tract was found at the medial aspect of the hallux at the interspace and trackingunder the proximal phalanx of the hallux. Expressed drainage from this tract is purulent. It was decided to extend the incision dorsally along the large abscess in order to properly decompress this area. More purulent drainage was encountered. The nonviable tissues were resected. Procedure #2: attention was directed to the plantar aspect of the first metatarsal where an ulceration is noted externally on the skin. Sharp debridement was carried down to the fatty tissue layer. There is no direct connection of this ulceration to the plantar sinus track or the sinus tract under the hallux. Procedure #3: Attention was directed back to the second metatarsal, at this point it was decided toremove the second metatarsal head. The specimen was sent in a formalin specimen cup for pathology. The bone quality was noted to be firm. The incision was copiously flushed with 3 L of dab solution. The sinus tracts to the dorsum of the foot, plantar aspect of the foot and plantar hallux were all packed with half-inch iodoform packing. Retention sutures were placed using 2-0 nylon. Aquacel Ag wasplaced on top of the open wound where the second toe was amputated. The incision was then further dressed with 4 x 4's, Danilo, ABD, Kerlix, Volodymyr bandage. The tourniquet was deflated at which point hyperemia was noted to all remaining digits of the right foot. Patient was then transported back to thepostanesthesia care unit with vital signs stable and vascular status intact where he will remain for time until stable for transport back to the [facility]. Patient will continue to receive IV antibiotics based on cultures and pathology results. The surgery as part of a staged procedure as it will be necessary to return the patient to the operating room for repeat incision and drainage possible delayed primary closure versus transmetatarsal amputation. Complications: None; patient tolerated the procedure well. Disposition: PACU - hemodynamically stable. Condition: stable Steve Lopez DPM documented in this encounter ED Notes * Karley Tilley RN - 06/06/2024 9:12 AM CDT Patient presents to the ER with right foot pain related to a possible infection. Patient states he was seen for this on Saturday, but now the infection and pain is worse. Pain 9/. Patients last doseof of Tylenol and ibuprofen was around 2 am this morning. * Lazaro Chin, PABLO, BUSINESS DEVELOPMENT REPRESENTATIVE - 06/06/2024 8:51 AM CDT HPI No chief complaint on file. This is a 69-year-old male patient with multiple medical comorbidities including hypomagnesemia vitamin D3 deficiency type II DM depressive disorder headache hypertension compression fracture atrial fibrillation presenting emergency room nonemergency medicine source chief concern foot swelling. Review medical records documentation show the patient [facility]. The patient was seen in the emergency room on the of this month for concerns of cellulitis and diabetic foot ulcer. At that time evaluation was completed. The patient is noted to be anticoagulated. The patient had [facility] contact the day after the emergency room. The patient has no additional follow-up or management since that visit. The patient reports currently being on doxycycline. Since he has been on that antibiotic, he did have improvement in redness that was in his calf, but he has had increased redness about the foot, he is now noted drainage purulence moisture and discoloration of toes about the right foot. He has complete numbness about the toes of his right foot. He denies febrile illness. He reports he is never previously had any surgical intervention or resection of the right foot. He denies any previous hardware implantation. He has had previous remote trauma to that foot. He has been taking his anticoagulant. He is here with his spouse. He does endorse pain in the foot, but not the toes. Patient History Patient History Allergies Allergen Reactions ??? Niacin Other (see comments) makes me feel like I'm burning Past Medical History: Diagnosis Date ??? Atrial fibrillation (HCC) 02/03/2016 ??? Compression fracture of vertebra (HCC) 02/04/2017 ??? Confusion 05/20/2018 ??? Dizziness 08/05/2012 ??? Essential hypertension 03/08/2011 ??? General medical exam 03/29/2019 Colon cancer screening: cologuard 03/13/2019 negative; next due in 3 years (2021) PSA: 2013 1.8; could consider repeat test every 3-5 years or sooner if symptoms ??? Glaucoma 10/22/2014 ??? Headache 04/27/2019 ??? Herpes simplex 03/13/2019 ??? High aspartate aminotransferase level 05/16/2005 ??? Inguinal hernia 12/21/2004 ??? Major depressive disorder 09/18/2012 ??? Migraine headache with aura 04/28/2019 ??? Mixed hyperlipidemia 01/23/2005 ??? Obstructive sleep apnea syndrome in adult 02/09/2016 ??? Presbyopia 03/15/2005 ??? Stroke (HCC) 05/23/2018 ??? Type 2 diabetes mellitus with diabetic neuropathy, unspecified (HCC) 09/22/2012 ??? Unspecified systolic (congestive) heart failure (HCC) 05/23/2018 No past surgical history on file. Family History Problem Relation Age of Onset ??? Macular degeneration Maternal Grandmother Social History Tobacco Use ??? Smoking status: Never Passive exposure: Never ??? Smokeless tobacco: Never Vaping Use ??? Vaping status: Never Used Substance Use Topics ??? Alcohol use: Yes Alcohol/week: 2.0 standard drinks of alcohol Types: 2 Cans of beer per week Comment: 3x / week ??? Drug use: Not Currently Review of Systems Review of Systems Physical Exam ED Triage Vitals Temp Pulse Resp BP -- -- -- -- SpO2 Temp src Heart Rate Source Patient Position -- -- -- -- BP Location FiO2 (%) Weight -- -- -- There is no height or weight on file to calculate BMI. Physical Exam Vitals and nursing note reviewed. Constitutional: General: He is not in acute distress. Appearance: He is ill-appearing. He is not toxic-appearing. HENT: Head: Normocephalic. Nose: Nose normal. Eyes: Pupils: Pupils are equal, round, and reactive to light. Cardiovascular: Rate and Rhythm: Normal rate. Abdominal: General: There is no distension. Tenderness: There is no guarding. Musculoskeletal: Cervical back: Normal range of motion. Comments: Right foot is grossly erythematous, edematous. The distal toes all have no sensation subjectively about the tips. The second toe is very purple and discolored. There is blanching about the skin. Capillary refill present all toes. There is quite a bit of moisture purulence and moderate purulent drainage dried and moist about the foot. Photos placed Skin: General: Skin is warm. Capillary Refill: Capillary refill takes less than 2 seconds. Findings: Erythema present. Neurological: General: No focal deficit present. Mental Status: He is alert. Psychiatric: Mood and Affect: Mood normal. No data recorded Procedures Labs Reviewed - No data to display ED Course & MDM Medical Decision Making 69-year-old male patient diabetic, anticoagulated, presenting concerns foot infection. Has recentlybeen placed on antibiotics. Clinical exam today completed. Vitals completed. Does not meet sepsis markers. Concerning this has progressed now and failed outpatient treatment. Certainly concern of oste omyelitis setting in. Will obtain repeat labs, does not meet blood culture criteria based on shortages, empiric antibiotics started, anaerobic aerobic wound cultures ordered, will obtain CT foot, MRIunavailable. Anticipate admission probable surgical consultation and ID consultation. Discussed with patient. Patient lab work and diagnostics reviewed. Evidence of IDA. IV fluids have been ordered. Empiric antibiotics ordered. Labs consistent significant infection right foot complicated by underlying diabetes, acute renal failure, etc. Hyperglycemia noted no evidence of acidosis. MRI pending. Patient willneed to admit to the hospital for continued IV antibiotics, surgical consult for possible debridement, wound care, and management. I discussed case with hospitalist who graciously agreed to admit thepatient. Patient in agreement. Amount and/or Complexity of Data Reviewed Labs: ordered. Decision-making details documented in ED Course. Radiology: ordered. Risk Prescription drug management. Decision regarding hospitalization. Follow Up No follow-up provider specified. Patient's Medications New Prescriptions No medications on file Previous Medications APIXABAN (ELIQUIS) 5 MG TABLET Take 1 tablet (5 mg total) by mouth 2 times daily ASPIRIN EC 81 MG EC TABLET Take 1 tablet (81 mg total) by mouth daily ATORVASTATIN (LIPITOR) 10 MG TABLET Take by mouth 1 (one) time each day ATORVASTATIN (LIPITOR) 80 MG TABLET Take 0.5 tablets (40 mg total) by mouth CARVEDILOL (COREG) 12.5 MG TABLET Take 1 tablet (12.5 mg total) by mouth DOXYCYCLINE (VIBRAMYCIN) 100 MG CAPSULE Take 1 capsule (100 mg total) by mouth 2 (two) times a day for 14 days EMPAGLIFLOZIN 25 MG TABLET Take 25 mg by mouth GLIPIZIDE (GLUCOTROL XL) 10 MG 24 HR TABLET Take 1 tablet (10 mg total) by mouth 1 (one) time each day Do not crush, chew, or split. GLIPIZIDE (GLUCOTROL XL) 5 MG 24 HR TABLET Take 1 tablet (5 mg total) by mouth every night Do not crush, chew, or split. LISINOPRIL (ZESTRIL) 10 MG TABLET Take 2 tablets (20 mg total) by mouth 1 (one) time each day METFORMIN (GLUCOPHAGE) 1000 MG TABLET Take 1 tablet (1,000 mg total) by mouth 2 (two) times a day with meals METOPROLOL SUCCINATE XL (TOPROL-XL) 100 MG 24 HR TABLET Take by mouth 1 (one) time each day Do not crush or chew. PIOGLITAZONE (ACTOS) 45 MG TABLET Take 1 tablet (45 mg total) by mouth UNABLE TO FIND Med Name: Neurvive supplement Modified Medications No medications on file Discontinued Medications No medications on file Discharge Instructions None ED COURSE and CLINICAL IMPRESSION ED Course as of 06/06/24 1147 Sat Jun 06, 2024 1021 Lactate: 1.3 [JK] 1029 Noted IDA. Will most likely need non con. IVF ordered. Will call to see if MR is available. [JK] 1032 WBC(!): 21.3 [JK] 1032 Absolute Neutrophils(!): 19.4 [JK] 1032 Spoke to MRI will do MR of foot [JK] 1102 CRP(!): >320.0 [JK] 1102 Call to podiatry [JK] 1134 Call to hospitalist. Awaiting call back from podiatry message left. [JK] 1147 With podiatry on-call she will plan to see patient most likely tomorrow for planned intervention and discussion. [JK] ED Course User Index [JK] Lazaro Chin APRN, DAGO Clinical Impressions as of 06/06/24 1147 Infection of right foot Hyperglycemia Acute renal failure, unspecified acute renal failure type (HCC) Disposition: Data Unavailable Lazaro Chin APRN, CNP 06/06/24 1139 documented in this encounter Plan of Treatment Upcoming Encounters Date Type Department Care Team (Late st Contact Info) Description 08/24/2024 8:30 AM FURNITURE [employer] HELPER Office Visit [facility] [address] [place] [address] 08/24/2024 11:30 AM FURNITURE M[employer] HELPER [facility] Visit [facility] [address] [place] [address] Angel Coombs, DPM [address] [place] [phone] 08/25/2024 8:30 AM FURNITURE M[employer] HELPER Office Visit [facility] [address] [place] [phone] 08/26/2024 8:30 AM FURNITURE MOVER HELPER Office Visit [facility] [address] [place] [address] 08/27/2024 8:30 AM FURNITURE M[employer] HELPER Office Visit [facility] [address] [place] [address] 08/27/2024 11:00 AM FURNITURE M[employer] HELPER Office Visit [facility] [address] [place] [phone] [place] [address] [place] [phone] 08/28/2024 8:30 AM FURNITURE MOVER HELPER Office Visit [facility] [address] [place] [address] 08/31/2024 8:30 AM FURNITURE M[employer] HELPER Office Visit [facility] [address] [place] [address] 09/01/2024 8:30 AM FURNITURE M[employer] HELPER Office Visit [facility] [address] [place] [phone] 09/02/2024 8:30 AM FURNITURE M[employer] HELPER Office Visit [facility] [address] [place] [phone] 09/03/2024 8:30 AM FURNITURE M[employer] HELPER Office Visit [facility] [address] [place] [phone] 09/03/2024 11:00 AM FURNITURE MOVER HELPER Office Visit [facility] [address] [place] [address] Vilma Neves MD [address] [place] [phone] 09/03/2024 11:00 AM FURNITURE M[employer] HELPER Office Visit [facility] [address] [place] [address] Amairani Sigala MD [address] [place] [address] [phone] 09/04/2024 8:30 AM FURNITURE M[employer] HELPER Office Visit [facility] [address] [place] [phone] 09/07/2024 8:30 AM FURNITURE M[employer] HELPER Office Visit [facility] [address] [place] [address] 09/08/2024 8:30 AM FURNITURE MOVER HELPER Office Visit [facility] [address] [place] [address] 09/09/2024 8:30 AM FURNITURE MOVER HELPER Office Visit [facility] [address] [place] [address] 09/10/2024 8:30 AM FURNITURE MOVER HELPER Office Visit [facility] [address] [place] [address] 270[address] 09/10/2024 11:20 AM FURNITURE M[employer] HELPER Office Visit [facility] [address] [place] [phone] Vilma Neves MD [address] [place] [phone] 09/11/2024 8:30 AM FURNITURE M[employer] HELPER Office Visit [facility] [address] [place] [phone] 09/14/2024 8:30 AM FURNITURE MOVER HELPER Office Visit [facility] [address] [place] [address] 09/15/2024 8:30 AM FURNITURE M[employer] HELPER Office Visit [facility] [address] [place] [address] Scheduled Orders Name Type Priority Associated Diagnoses Orde r Schedule Wound culture Microbiology STAT STAT for 1 Occurrences starting 06/06/2024 until 06/06/2024 ECG 12 lead ECG Routine Once for 1 Oc currences starting 06/09/2024 until 06/09/2024 documented as of this encounter Procedures Procedure Name Priority Date/Time Associated Diagnosis Comments POCT PRECISION GLUCOSE Routine 06/17/2024 11:43 AM CDT POCT PRECISION GLUCOSE Routine 06/17/2024 6:37 AM CDT ESTIMATED GLOMERULAR FILTRATION RATE (EGFR) Routine 06/17/2024 5:50 AM CDT CBC Routine 06/17/2024 5:50 AM CDT BASIC METABOLIC PANEL Routine 06/17/2024 5:50 AM CDT POCT PRECISION GLUCOSE Routine 06/16/2024 10:04 PM CDT POCT PRECISION GLUCOSE Routine 06/16/2024 4:39 PM CDT POCT PRECISION GLUCOSE Routine 06/16/2024 11:20 AM CDT POCT PRECISION GLUCOSE Routine 06/16/2024 6:55 AM CDT ESTIMATED GLOMERULAR FILTRATION RATE (EGFR) Routine 06/16/2024 6:08 AM CDT CBC Routine 06/16/2024 6:08 AM CDT BASIC METABOLIC PANEL Routine 06/16/2024 6:08 AM CDT POCT PRECISION [...] RATE (EGFR) Routine 06/15/2024 6:00 AM CDT CBC Routine 06/15/2024 6:00 AM CDT BASIC METABOLIC PANEL Routine 06/15/2024 6:00 AM CDT POCT PRECISION GLUCOSE Routine 06/14/2024 9:23 PM CDT POCT PRECISION GLUCOSE Routine 06/14/2024 5:47 PM CDT POCT PRECISION GLUCOSE Routine 06/14/2024 11:13 AM CDT POCT PRECISION GLUCOSE Routine 06/14/2024 6:27 AM CDT ESTIMATED GLOMERULAR FILTRATION RATE (EGFR) Routine 06/14/2024 5:45 AM CDT CBC Routine 06/14/2024 5:45 AM CDT BASIC METABOLIC PANEL Routine 06/14/2024 5:45 AM CDT POCT PRECISION GLUCOSE Routine 06/13/2024 8:59 PM CDT POCT PRECISION GLUCOSE Routine 06/13/2024 5:36 PM CDT POCT PRECISION GLUCOSE Routine 06/13/2024 11:48 AM CDT POCT PRECISION GLUCOSE Routine 06/13/2024 6:37 AM CDT ESTIMATED GLOMERULAR FILTRATION RATE (EGFR) Routine 06/13/2024 5:00 AM CDT CBC Routine 06/13/2024 5:00 AM CDT BASIC METABOLIC PANEL Routine 06/13/2024 5:00 AM CDT POCT PRECISION [...] RATE (EGFR) Routine 06/12/2024 5:40 AM CDT CBC Routine 06/12/2024 5:40 AM CDT BASIC METABOLIC PANEL Routine 06/12/2024 5:40 AM CDT POCT PRECISION GLUCOSE Routine 06/11/2024 9:29 PM CDT POCT PRECISION GLUCOSE Routine 06/11/2024 4:47 PM CDT POCT PRECISION GLUCOSE Routine 06/11/2024 11:29 AM CDT POCT PRECISION GLUCOSE Routine 06/11/2024 7:34 AM CDT ESTIMATED GLOMERULAR FILTRATION RATE (EGFR) Routine 06/11/2024 6:10 AM CDT CBC Routine 06/11/2024 6:10 AM CDT BASIC METABOLIC PANEL Routine 06/11/2024 6:10 AM CDT POCT PRECISION GLUCOSE Routine 06/10/2024 9:46 PM CDT POCT PRECISION GLUCOSE Routine 06/10/2024 5:10 PM CDT POCT PRECISION GLUCOSE Routine 06/10/2024 11:33 AM CDT POCT PRECISION GLUCOSE Routine 06/10/2024 6:31 AM CDT ESTIMATED GLOMERULAR FILTRATION RATE (EGFR) Routine 06/10/2024 5:54 AM CDT CBC Routine 06/10/2024 5:54 AM CDT BASIC METABOLIC PANEL Routine 06/10/2024 5:54 AM CDT POCT PRECISION GLUCOSE Routine 06/09/2024 11:24 PM CDT POCT PRECISION GLUCOSE Routine 06/09/2024 6:27 PM CDT VANCOMYCIN Timed 06/09/2024 11:38 AM CDT POCT PRECISION GLUCOSE Routine 06/09/2024 11:00 AM CDT MRSA, BY PCR, NASAL Routine 06/09/2024 9 :50 AM CDT POCT PRECISION GLUCOSE Routine 06/09/2024 6:39 AM CDT ESTIMATED GLOMERULAR FILTRATION RATE (EGFR) Routine 06/09/2024 6:05 AM CDT CBC Routine 06/09/2024 6:05 AM CDT BASIC METABOLIC PANEL Routine 06/09/2024 6:05 AM CDT POCT PRECISION [...] neuropathy, without long-term current use of insulin ([facility]) POCT PRECISION GLUCOSE Routine 06/08/2024 12:30 PM CDT POCT PRECISION GLUCOSE Routine 06/08/2024 8:45 AM CDT POCT PRECISION GLUCOSE Routine 06/08/2024 7:08 AM CDT ESTIMATED GLOMERULAR FILTRATION RATE (EGFR) Routine 06/08/2024 6:05 AM CDT CBC Routine 06/08/2024 6:05 AM CDT BASIC METABOLIC PANEL Routine 06/08/2024 6:05 AM CDT POCT PRECISION GLUCOSE Routine 06/07/2024 11:05 PM CDT POCT PRECISION GLUCOSE Routine 06/07/2024 5:42 PM CDT POCT PRECISION GLUCOSE Routine 06/07/2024 12:04 PM CDT POCT PRECISION GLUCOSE Routine 06/07/2024 7:17 AM CDT ESTIMATED GLOMERULAR FILTRATION RATE (EGFR) Routine 06/07/2024 5:13 AM CDT CBC Routine 06/07/2024 5:13 AM CDT VANCOMYCIN Timed 06/07/2024 5:13 AM CDT BASIC METABOLIC PANEL Routine 06/07/2024 5:13 AM CDT POCT PRECISION GLUCOSE Routine 06/06/2024 10:25 PM CDT POCT PRECISION GLUCOSE Routine 06/06/2024 6:15 PM CDT POCT PRECISION GLUCOSE Routine 06/06/2024 1:56 PM CDT MR FOOT RIGHT WO IV CONTRAST STAT 06/06/2024 12:23 PM CDT ESTIMATED GLOMERULAR FILTRATION RATE (EGFR) STAT 06/06/2024 10:00 AM CDT REFLEXED MANUAL DIFF STAT 06/06/2024 10:00 AM CDT PROCALCITONIN STAT 06/06/2024 10:00 AM CDT MORPHOLOGY STAT 06/06/2024 10:00 AM CDT CBC WITH AUTO DIFFERENTIAL STAT 06/06/2024 10:00 AM CDT APTT STAT 06/06/2024 10:00 AM CDT PROTIME-INR STAT 06/06/2024 10:00 AM CDT C-REACTIVE PROTEIN STAT 06/06/2024 10:00 AM CDT MAGNESIUM STAT 06/06/2024 10:00 AM CDT LACTATE, PLASMA STAT 06/06/2024 10:00 AM CDT HEMOGLOBIN A1C STAT 06/06/2024 10:00 AM CDT BLOOD GAS, VENOUS STAT 06/06/2024 10:00 AM CDT BASIC METABOLIC PANEL STAT 06/06/2024 10:00 AM CDT COVID-19, GUTIERREZ ID NOW, PCR STAT 06/06/2024 9:55 AM CDT TISSUE CULTURE, ANAEROBIC STAT 06/06/2024 9:36 AM CDT TISSUE CULTURE, AEROBIC STAT 06/06/2024 9:36 AM CDT documented in this encounter Results * (ABNORMAL) POCT Precision glucose (06/17/2024 11:43 AM CDT) [facility] Glucose Blood, POC 284(H) 70 - 100 mg/dL 06/17/2024 11:43 AM CDT [facility] Comment: Meter ID: [id number] Capillary whole blood specimens should not be used in patients receiving intensive medical intervention/therapy because of the potential for pre-analytical collection error and specifically in patients with decreased peripheral blood flow, as it may not truly reflect the patient? s true physiological state. Examples include, but are not limited to, severe hypotension, shock, hyperosmolar-hyperglycemia (with or without ketosis), and severe dehydration. 06/17/2024 11:4 3 AM CDT 06/17/2024 11:43 AM CDT Pina Bonilla MD LAB POINT OF CARE TE ST DOCKED DEVICE UNSOLICITED RESULTS Performing Organization Address [facility] de Phone Number [facility] [address] [place], [place] [phone] * (ABNORMAL) POCT Precision glucose (06/17/2024 6:37 AM CDT) Glucose Blood, POC 150(H) 70 - 100 mg/dL 06/17/2024 6:37 AM CDT [facility] Comment: Meter ID: [id number] Capillary whole blood specimens should not be used in patients receiving intensive medical intervention/therapy because of the potential for pre-analytical collection error and specifically in patients with decreased peripheral blood flow, as it may not truly reflect the patient? s true physiological state. Examples include, but are not limited to, severe hypotension, shock, hyperosmolar-hyperglycemia (with or without ketosis), and severe dehydration. 06/17/2024 6:37 AM CDT 06/17/2024 6:38 AM CDT Pina Bonilla MD LAB POINT OF CARE TE ST DOCKED DEVICE UNSOLICITED RESULTS Performing Organization Address [facility] de Phone Number [facility] [address] [place] [phone] * Estimated Glomerular Filtration Rate (eGFR) (06/17/2024 5:50 AM CDT) Estimated Glomerular Filtration Rate (eGFR) >60 06/17/2024 6:35 AM CDT [facility] Comment: GFR calculated from serum creatinine value Chronic Kidney Disease less than 60 mL/min/1.73 m2 Kidney Failure less than 15 mL/min/1.73 m2 Note: effective 10/17/2022: 2020 CKD-EPI Equation used 06/17/2024 5:50 AM CDT 06/17/2024 5:50 AM CDT Shantell Lewis MD LAB BLOOD ORDERAB LES Performing Organization Address [facility]/ZIP Co de Phone Number [facility] [address] [place] [address] * (ABNORMAL) Basic metabolic panel (06/17/2024 5:50 AM CDT) Sodium 136 135 - 145 mEq/L 06/17/2024 6:35 AM T [facility] Potassium 4.1 3.5 - 5.1 mEq/L 06/17/2024 6:35 AM [facility] Chloride 101 98 - 107 mEq/L 06/17/2024 6:35 AM [facility] CO2 32(H) 22 - 31 mmol/L 06/17/2024 6:35 AM [facility] Creatinine 1.14 0.60 - 1.40 mg/dL 06/17/2024 6:35 AM [facility] BUN 22 5 - 25 mg/dL 06/17/2024 6:35 AM [facility] Glucose 135(H) 70 - 100 mg/dL 06/17/2024 6:35 AM [facility] Calcium, Total,S 8.9 8.4 - 10.2 mg/dL 06/17/2024 6:35 AM [facility] Anion Gap 3(L) 4 - 13 06/17/2024 6:35 AM [facility] Comment: The anion gap is calculated with the following formula: AGAP = Na ? (Cl + CO2). Fasting? Yes 06/17/2024 6:16 AM [facility] Blood (Blood, Venous) 06/17/2024 5:50 AM CDT 06/17/2024 6:16 AM CDT Shantell Lewis MD LAB BLOOD ORDERAB LES Performing Organization Address City/[facility]/ZIP Co de Phone Number [facility] [address] [place] [phone] * (ABNORMAL) CBC ([facility]) (06/17/2024 5:50 AM CDT) WBC 10.5 3.5 - 10.5 K/uL 06/17/2024 6:18 AM CDT [facility] RBC 5.18 4.30 - 5.70 M/uL 06/17/2024 6:18 AM T [facility] Hemoglobin 15.2 13.5 - 17.5 g/dL 06/17/2024 6:18 AM T [facility] Hematocrit 47.8 38.0 - 50.0 % 06/17/2024 6:18 AM T [facility] Platelets 376 150 - 450 K/uL 06/17/2024 6:18 AM T [facility] MCV 92.3 81.2 - 95.1 fL 06/17/2024 6:18 AM T [facility] MCH 29.3 26.0 - 32.0 pg 06/17/2024 6:18 AM T [facility] MCHC 31.8(L) 32.0 - 36.0 g/dL 06/17/2024 6:18 AM T [facility] RDW 14.6 11.8 - 15.6 % 06/17/2024 6:18 AM [facility] NRBC %, Automated 0 % 06/17/2024 6:18 AM [facility] NRBC Absolute, Autmated 0.00 K/uL 06/17/2024 6:18 AM T [facility] Comment: 0-4 Days: 0.01 -0.02 >=5 Days: 0.00 Blood (Blood, Venous) 06/17/2024 5:50 AM CDT 06/17/2024 6:16 AM CDT Shantell Lewis MD LAB BLOOD ORDERAB LES [facility] [address] [place] [phone] * (ABNORMAL) POCT Precision glucose (06/16/2024 10:04 PM CDT) Glucose Blood, POC 125(H) 70 - 100 mg/dL 06/16/2024 10:08 PM CDT [facility] Comment: Meter ID: [id number] Capillary whole blood specimens should not be used in patients receiving intensive medical intervention/therapy because of the potential for pre-analytical collection error and specifically in patients with decreased peripheral blood flow, as it may not truly reflect the patient? s true physiological state. Examples include, but are not limited to, severe hypotension, shock, hyperosmolar-hyperglycemia (with or without ketosis), and severe dehydration. 06/16/2024 10:0 4 PM CDT 06/16/2024 10:08 PM CDT Pina Bonilla MD LAB POINT OF CARE TE ST DOCKED DEVICE UNSOLICITED RESULTS Performing Organization Address [facility] de Phone Number [facility] [address] [place] [address] * (ABNORMAL) POCT Precision glucose (06/16/2024 4:39 PM CDT) Glucose Blood, POC 273(H) 70 - 100 mg/dL 06/16/2024 4:39 PM CDT [facility] Comment: Meter ID: [id number] Capillary whole blood specimens should not be used in patients receiving intensive medical intervention/therapy because of the potential for pre-analytical collection error and specifically in patients with decreased peripheral blood flow, as it may not truly reflect the patient? s true physiological state. Examples include, but are not limited to, severe hypotension, shock, hyperosmolar-hyperglycemia (with or without ketosis), and severe dehydration. 06/16/2024 4:39 PM CDT 06/16/2024 4:40 PM CDT Pina Bonilla MD LAB POINT OF CARE TE ST DOCKED DEVICE UNSOLICITED RESULTS Performing Organization Address [facility] Co de Phone Number [facility] [address] [place], [place] [phone] * (ABNORMAL) POCT Precision glucose (06/16/2024 11:20 AM CDT) Glucose Blood, POC 262(H) 70 - 100 mg/dL 06/16/2024 11:22 AM CDT [facility] Comment: Meter ID: [id number] Capillary whole blood specimens should not be used in patients receiving intensive medical intervention/therapy because of the potential for pre-analytical collection error and specifically in patients with decreased peripheral blood flow, as it may not truly reflect the patient? s true physiological state. Examples include, but are not limited to, severe hypotension, shock, hyperosmolar-hyperglycemia (with or without ketosis), and severe dehydration. 06/16/2024 11:2 0 AM CDT 06/16/2024 11:22 AM CDT Pina Bonilla MD LAB POINT OF CARE TE ST DOCKED DEVICE UNSOLICITED RESULTS Performing Organization Address [facility] de Phone Number [facility] [address] [place], [place] [phone] * (ABNORMAL) POCT Precision glucose (06/16/2024 6:55 AM CDT) Glucose Blood, POC 121(H) 70 - 100 mg/dL 06/16/2024 6:56 AM CDT [facility] Comment: Meter ID: [id number] Capillary whole blood specimens should not be used in patients receiving intensive medical intervention/therapy because of the potential for pre-analytical collection error and specifically in patients with decreased peripheral blood flow, as it may not truly reflect the patient? s true physiological state. Examples include, but are not limited to, severe hypotension, shock, hyperosmolar-hyperglycemia (with or without ketosis), and severe dehydration. 06/16/2024 6:55 AM CDT 06/16/2024 6:57 AM CDT Pina Bonilla MD LAB POINT OF CARE TE ST DOCKED DEVICE UNSOLICITED RESULTS Performing Organization Address [facility] Co de Phone Number [facility] [address] [place], [place] [phone] * Estimated Glomerular Filtration Rate (eGFR) (06/16/2024 6:08 AM CDT) Pathologist [facility] Estimated Glomerular Filtration Rate (eGFR) >60 06/16/2024 8:26 AM [facility] Comment: GFR calculated from serum creatinine value Chronic Kidney Disease less than 60 mL/min/1.73 m2 Kidney Failure less than 15 mL/min/1.73 m2 Note: effective 10/17/2022: 2020 CKD-EPI Equation used 06/16/2024 6:08 AM CDT 06/16/2024 6:08 AM CDT Shantell Lewis MD LAB BLOOD ORDERAB LES [facility] [address] [place] [address] * (ABNORMAL) Basic metabolic panel (06/16/2024 6:08 AM CDT) Pathologist [facility] Sodium 136 135 - 145 mEq/L 06/16/2024 8:26 AM [facility] Potassium 4.3 3.5 - 5.1 mEq/L 06/16/2024 8:26 AM [facility] Chloride 100 98 - 107 mEq/L 06/16/2024 8:26 AM [facility] CO2 30 22 - 31 mmol/L 06/16/2024 8:26 AM [facility] Creatinine 1.13 0.60 - 1.40 mg/dL 06/16/2024 8:26 AM [facility] BUN 20 5 - 25 mg/dL 06/16/2024 8:26 AM [facility] Glucose 116(H) 70 - 100 mg/dL 06/16/2024 8:26 AM [facility] Calcium, Total,S 9.1 8.4 - 10.2 mg/dL 06/16/2024 8:26 AM [facility] Anion Gap 6 4 - 13 06/16/2024 8:26 AM [facility] Comment: The anion gap is calculated with the following formula: AGAP = Na ? (Cl + CO2). Fasting? Unknown 06/16/2024 6:38 AM [facility] Blood (Blood, Venous) 06/16/2024 6:08 AM CDT 06/16/2024 6:37 AM CDT Shantell Lewis MD LAB BLOOD ORDERAB LES [facility] [address] [place] [phone] * CBC ([employer]) (06/16/2024 6:08 AM CDT) WBC 10.2 3.5 - 10.5 K/uL 06/16/2024 6:52 AM [facility] RBC 5.36 4.30 - 5.70 M/uL 06/16/2024 6:52 AM [facility] Hemoglobin 15.9 13.5 - 17.5 g/dL 06/16/2024 6:52 AM [facility] Hematocrit 48.9 38.0 - 50.0 % 06/16/2024 6:52 AM [facility] Platelets 369 150 - 450 K/uL 06/16/2024 6:52 AM [facility] MCV 91.2 81.2 - 95.1 fL 06/16/2024 6:52 AM [facility] MCH 29.7 26.0 - 32.0 pg 06/16/2024 6:52 AM [facility] MCHC 32.5 32.0 - 36.0 g/dL 06/16/2024 6:52 AM [facility] RDW 14.7 11.8 - 15.6 % 06/16/2024 6:52 AM [facility] NRBC %, Automated 0 % 06/16/2024 6:52 AM [facility] NRBC Absolute, Autmated 0.00 K/uL 06/16/2024 6:52 AM [facility] Comment: 0-4 Days: 0.01 -0.02 >=5 Days: 0.00 Blood (Blood, Venous) 06/16/2024 6:08 AM CDT 06/16/2024 6:37 AM CDT Shantell Lewis MD LAB BLOOD ORDERAB LES Performing Organization Address [facility] de Phone Number [facility] [address] [place], [place] [address] * (ABNORMAL) POCT Precision glucose (06/15/2024 11:19 PM CDT) Glucose Blood, POC 232(H) 70 - 100 mg/dL 06/15/2024 11:19 PM CDT [facility] Comment: Meter ID: [id number] Capillary whole blood specimens should not be used in patients receiving intensive medical intervention/therapy because of the potential for pre-analytical collection error and specifically in patients with decreased peripheral blood flow, as it may not truly reflect the patient? s true physiological state. Examples include, but are not limited to, severe hypotension, shock, hyperosmolar-hyperglycemia (with or without ketosis), and severe dehydration. 06/15/2024 11:1 9 PM CDT 06/15/2024 11:20 PM CDT Pina Bonilla MD LAB POINT OF CARE TE ST DOCKED DEVICE UNSOLICITED RESULTS Performing Organization Address [facility] de Phone Number [facility] [address] [place], [place] [phone] * X-ray chest 1 view (06/15/2024 8:09 PM CDT) Anatomical Region Laterality Modality Body, Chest, Lung [employer] ahsutosh 06/15/2024 8:13 PM CDT Narrative 06/15/2024 9:00 PM CDT For Patients: ??As a result of the Century Cures Act, medical imaging exams and [...] @ 06/15/2024 9:00:06 PM (Electronically Signed) Pina Bonilla MD IMG XR PROCEDURES * (ABNORMAL) POCT Precision glucose (06/15/2024 6:59 PM CDT) [facility] Glucose Blood, POC 107(H) 70 - 100 mg/dL 06/15/2024 6:59 PM CDT [facility] Comment: Meter ID: [id number] Capillary whole blood specimens should not be used in patients receiving intensive medical intervention/therapy because of the potential for pre-analytical collection error and specifically in patients with decreased peripheral blood flow, as it may not truly reflect the patient? s true physiological state. Examples include, but are not limited to, severe hypotension, shock, hyperosmolar-hyperglycemia (with or without ketosis), and severe dehydration. 06/15/2024 6:59 PM CDT 06/15/2024 7:00 PM CDT Pina Bonilla MD LAB POINT OF CARE TE ST DOCKED DEVICE UNSOLICITED RESULTS [facility] [address] [place] [address] * X-ray chest 1 view (06/15/2024 6:50 PM CDT) Anatomical Region Laterality Modality Body, Chest, Lung Digital Radiog ashutosh 06/15/2024 7:15 PM CDT Pina Bonilla MD IMG XR PROCEDURES * Vascular Line Placement (06/15/2024 6:00 PM CDT) Narrative Evelyn Aleman BSN - 06/15/2024 6:00 PM CDT Evelyn Aleman BSN ? 06/15/2024 ??7:11 PM Vascular Access Insertion ?? Procedure Information Procedure performed: PICC Reason for insertion: intravenous antibiotics Current IV access: peripheral IV Inserting Clinician: Shop Laborer: DAX QUILES RN,CRNI Inserting RN: EVELYN ALEMAN RN Preanesthetic Checklist Completed: patient identified, IV [...] PM Catheter Fr Size: 3 Lot #: [id number] Number of lumens: single lumen Analgesia used: [...] pt's questions; pt states understanding. ??MeU Pina Bonilla MD IN CLINIC/BEDSIDE PE RFORMABLES * (ABNORMAL) POCT Precision glucose (06/15/2024 11:15 AM CDT) Glucose Blood, POC 221(H) 70 - 100 mg/dL 06/15/2024 11:15 AM CDT [facility] Comment: Meter ID: [id number] Capillary whole blood specimens should not be used in patients receiving intensive medical intervention/therapy because of the potential for pre-analytical collection error and specifically in patients with decreased peripheral blood flow, as it may not truly reflect the patient? s true physiological state. Examples include, but are not limited to, severe hypotension, shock, hyperosmolar-hyperglycemia (with or without ketosis), and severe dehydration. 06/15/2024 11:1 5 AM CDT 06/15/2024 11:16 AM CDT Pina Bonilla MD LAB POINT OF CARE TE ST DOCKED DEVICE UNSOLICITED RESULTS [facility] [address] [place] [address] * (ABNORMAL) POCT Precision glucose (06/15/2024 7:21 AM CDT) Glucose Blood, POC 135(H) 70 - 100 mg/dL 06/15/2024 7:21 AM CDT [facility] Comment: Meter ID: [id number] Capillary whole blood specimens should not be used in patients receiving intensive medical intervention/therapy because of the potential for pre-analytical collection error and specifically in patients with decreased peripheral blood flow, as it may not truly reflect the patient? s true physiological state. Examples include, but are not limited to, severe hypotension, shock, hyperosmolar-hyperglycemia (with or without ketosis), and severe dehydration. 06/15/2024 7:21 AM CDT 06/15/2024 7:22 AM CDT Pina Bonilla MD LAB POINT OF CARE TE ST DOCKED DEVICE UNSOLICITED RESULTS Performing Organization Address [facility] Co de Phone Number [facility] [address] [place], [place] [phone] * Estimated Glomerular Filtration Rate (eGFR) (06/15/2024 6:00 AM CDT) Estimated Glomerular Filtration Rate (eGFR) >60 06/15/2024 6:16 AM CDT [facility] Comment: GFR calculated from serum creatinine value Chronic Kidney Disease less than 60 mL/min/1.73 m2 Kidney Failure less than 15 mL/min/1.73 m2 Note: effective 10/17/2022: 2020 CKD-EPI Equation used 06/15/2024 6:00 AM CDT 06/15/2024 6:00 AM CDT Shantell Lewis MD LAB BLOOD ORDERAB LES Performing Organization Address [facility] Co de Phone Number [facility] [address] [place], [place] [phone] * (ABNORMAL) Basic metabolic panel (06/15/2024 6:00 AM CDT) Sodium 136 135 - 145 mEq/L 06/15/2024 6:16 AM CDT [facility] Potassium 4.0 3.5 - 5.1 mEq/L 06/15/2024 6:16 AM CDT [facility] Chloride 100 98 - 107 mEq/L 06/15/2024 6:16 AM CDT [facility] CO2 30 22 - 31 mmol/L 06/15/2024 6:16 AM CDT [facility] Creatinine 1.05 0.60 - 1.40 mg/dL 06/15/2024 6:16 AM [facility] BUN 17 5 - 25 mg/dL 06/15/2024 6:16 AM [facility] Glucose 117(H) 70 - 100 mg/dL 06/15/2024 6:16 AM [facility] Calcium, Total,S 8.8 8.4 - 10.2 mg/dL 06/15/2024 6:16 AM [facility] Anion Gap 6 4 - 13 06/15/2024 6:16 AM [facility] Comment: The anion gap is calculated with the following formula: AGAP = Na ? (Cl + CO2). Fasting? Yes 06/15/2024 6:05 AM [facility] Blood (Blood, Venous) 06/15/2024 6:00 AM CDT 06/15/2024 6:05 AM CDT Shantell Lewis MD LAB BLOOD ORDERAB LES [facility] [address] [place] [address] * (ABNORMAL) CBC ([employer]) (06/15/2024 6:00 AM CDT) WBC 11.5(H) 3.5 - 10.5 K/uL 06/15/2024 6:06 AM [facility] RBC 5.04 4.30 - 5.70 M/uL 06/15/2024 6:06 AM [facility] Hemoglobin 14.9 13.5 - 17.5 g/dL 06/15/2024 6:06 AM [facility] Hematocrit 46.2 38.0 - 50.0 % 06/15/2024 6:06 AM [facility] Platelets 358 150 - 450 K/uL 06/15/2024 6:06 AM [facility] MCV 91.7 81.2 - 95.1 fL 06/15/2024 6:06 AM [facility] MCH 29.6 26.0 - 32.0 pg 06/15/2024 6:06 AM T [facility] MCHC 32.3 32.0 - 36.0 g/dL 06/15/2024 6:06 AM T [facility] RDW 14.9 11.8 - 15.6 % 06/15/2024 6:06 AM T [facility] NRBC %, Automated 0 % 06/15/2024 6:06 AM T [facility] NRBC Absolute, Autmated 0.00 K/uL 06/15/2024 6:06 AM T [facility] Comment: 0-4 Days: 0.01 -0.02 >=5 Days: 0.00 Blood (Blood, Venous) 06/15/2024 6:00 AM CDT 06/15/2024 6:05 AM CDT Shantell Lewis MD LAB BLOOD ORDERAB LES [facility] [address] [place] [address] * (ABNORMAL) POCT Precision glucose (06/14/2024 9:23 PM CDT) [facility] Glucose Blood, POC 352(H) 70 - 100 mg/dL 06/14/2024 9:24 PM CDT [facility] Comment: Meter ID: [id number] Capillary whole blood specimens should not be used in patients receiving intensive medical intervention/therapy because of the potential for pre-analytical collection error and specifically in patients with decreased peripheral blood flow, as it may not truly reflect the patient? s true physiological state. Examples include, but are not limited to, severe hypotension, shock, hyperosmolar-hyperglycemia (with or without ketosis), and severe dehydration. 06/14/2024 9:23 PM CDT 06/14/2024 9:24 PM CDT Pina Bonilla MD LAB POINT OF CARE TE ST DOCKED DEVICE UNSOLICITED RESULTS Performing Organization Address City/[facility]/ZIP Co de Phone Number [facility] [address] [place] [phone] * POCT Precision glucose (06/14/2024 5:47 PM CDT) Glucose Blood, POC 94 70 - 100 mg/dL 06/14/2024 5:47 PM CDT [facility] Comment: Meter ID: [id number] Capillary whole blood specimens should not be used in patients receiving intensive medical intervention/therapy because of the potential for pre-analytical collection error and specifically in patients with decreased peripheral blood flow, as it may not truly reflect the patient? s true physiological state. Examples include, but are not limited to, severe hypotension, shock, hyperosmolar-hyperglycemia (with or without ketosis), and severe dehydration. 06/14/2024 5:47 PM CDT 06/14/2024 5:48 PM CDT Pina Bonilla MD LAB POINT OF CARE TE ST DOCKED DEVICE UNSOLICITED RESULTS Performing Organization Address [facility] Phone Number [facility] [address] [place] [phone] * (ABNORMAL) POCT Precision glucose (06/14/2024 11:13 AM CDT) Glucose Blood, POC 154(H) 70 - 100 mg/dL 06/14/2024 11:13 AM CDT [facility] Comment: Meter ID: [id number] Capillary whole blood specimens should not be used in patients receiving intensive medical intervention/therapy because of the potential for pre-analytical collection error and specifically in patients with decreased peripheral blood flow, as it may not truly reflect the patient? s true physiological state. Examples include, but are not limited to, severe hypotension, shock, hyperosmolar-hyperglycemia (with or without ketosis), and severe dehydration. 06/14/2024 11:1 3 AM CDT 06/14/2024 11:13 AM CDT Pina Bonilla MD LAB POINT OF CARE TE ST DOCKED DEVICE UNSOLICITED RESULTS Performing Organization Address [facility]/ZIP Co de Phone Number [facility] [address] [place] [address] * (ABNORMAL) POCT Precision glucose (06/14/2024 6:27 AM CDT) [facility] Glucose Blood, POC 139(H) 70 - 100 mg/dL 06/14/2024 6:28 AM CDT [facility] Comment: Meter ID: [id number] Capillary whole blood specimens should not be used in patients receiving intensive medical intervention/therapy because of the potential for pre-analytical collection error and specifically in patients with decreased peripheral blood flow, as it may not truly reflect the patient? s true physiological state. Examples include, but are not limited to, severe hypotension, shock, hyperosmolar-hyperglycemia (with or without ketosis), and severe dehydration. 06/14/2024 6:27 AM CDT 06/14/2024 6:29 AM CDT Pina Bonilla MD LAB POINT OF CARE TE ST DOCKED DEVICE UNSOLICITED RESULTS Performing Organization Address [facility] Co de Phone Number [facility] [address] [place] [address] * Estimated Glomerular Filtration Rate (eGFR) (06/14/2024 5:45 AM CDT) [facility] Estimated Glomerular Filtration Rate (eGFR) >60 06/14/2024 6:28 AM CDT [facility] Comment: GFR calculated from serum creatinine value Chronic Kidney Disease less than 60 mL/min/1.73 m2 Kidney Failure less than 15 mL/min/1.73 m2 Note: effective 10/17/2022: 2020 CKD-EPI Equation used 06/14/2024 5:45 AM CDT 06/14/2024 5:45 AM CDT Shantell Lewis MD LAB BLOOD ORDERAB LES Performing Organization Address City/[facility]/ZIP Co de Phone Number [facility] [address] [place] [address] * (ABNORMAL) Basic metabolic panel (06/14/2024 5:45 AM CDT) Pathologist [facility] Sodium 138 135 - 145 mEq/L 06/14/2024 6:28 AM T [facility] Potassium 4.2 3.5 - 5.1 mEq/L 06/14/2024 6:28 AM [facility] Chloride 101 98 - 107 mEq/L 06/14/2024 6:28 AM [facility] CO2 31 22 - 31 mmol/L 06/14/2024 6:28 AM [facility] Creatinine 1.03 0.60 - 1.40 mg/dL 06/14/2024 6:28 AM [facility] BUN 20 5 - 25 mg/dL 06/14/2024 6:28 AM [facility] Glucose 142(H) 70 - 100 mg/dL 06/14/2024 6:28 AM [facility] Calcium, Total,S 8.9 8.4 - 10.2 mg/dL 06/14/2024 6:28 AM [facility] Anion Gap 6 4 - 13 06/14/2024 6:28 AM [facility] Comment: The anion gap is calculated with the following formula: AGAP = Na ? (Cl + CO2). Fasting? Yes 06/14/2024 6:13 AM [facility] Blood (Blood, Venous) 06/14/2024 5:45 AM CDT 06/14/2024 6:13 AM T Shantell Lewis MD LAB BLOOD ORDERAB LES [facility] [address] [place] [address] * (ABNORMAL) CBC ([employer]) (06/14/2024 5:45 AM CDT) Pathologist [facility] WBC 12.1(H) 3.5 - 10.5 K/uL 06/14/2024 6:21 AM [facility] RBC 5.04 4.30 - 5.70 M/uL 06/14/2024 6:21 AM [facility] Hemoglobin 15.1 13.5 - 17.5 g/dL 06/14/2024 6:21 AM [facility] Hematocrit 47.3 38.0 - 50.0 % 06/14/2024 6:21 AM [facility] Platelets 396 150 - 450 K/uL 06/14/2024 6:21 AM [facility] MCV 93.8 81.2 - 95.1 fL 06/14/2024 6:21 AM [facility] MCH 30.0 26.0 - 32.0 pg 06/14/2024 6:21 AM [facility] MCHC 31.9(L) 32.0 - 36.0 g/dL 06/14/2024 6:21 AM [facility] RDW 15.2 11.8 - 15.6 % 06/14/2024 6:21 AM [facility] NRBC %, Automated 0 % 06/14/2024 6:21 AM [facility] NRBC Absolute, Autmated 0.00 K/uL 06/14/2024 6:21 AM [facility] Comment: 0-4 Days: 0.01 -0.02 >=5 Days: 0.00 Blood (Blood, Venous) 06/14/2024 5:45 AM CDT 06/14/2024 6:13 AM CDT Shantell Lewis MD LAB BLOOD ORDERAB LES [facility] [address] [place] [address] * (ABNORMAL) POCT Precision glucose (06/13/2024 8:59 PM CDT) [facility] Glucose Blood, POC 257(H) 70 - 100 mg/dL 06/13/2024 8:59 PM T [facility] Comment: Meter ID: [id number] Capillary whole blood specimens should not be used in patients receiving intensive medical intervention/therapy because of the potential for pre-analytical collection error and specifically in patients with decreased peripheral blood flow, as it may not truly reflect the patient? s true physiological state. Examples include, but are not limited to, severe hypotension, shock, hyperosmolar-hyperglycemia (with or without ketosis), and severe dehydration. 06/13/2024 8:59 PM CDT 06/13/2024 8:59 PM CDT Pina Bonilla MD LAB POINT OF CARE TE ST DOCKED DEVICE UNSOLICITED RESULTS Performing Organization Address [facility] de Phone Number [facility] [address] [place], [place] [phone] * POCT Precision glucose (06/13/2024 5:36 PM CDT) Glucose Blood, POC 98 70 - 100 mg/dL 06/13/2024 5:36 PM CDT [facility] Comment: Meter ID: [id number] Capillary whole blood specimens should not be used in patients receiving intensive medical intervention/therapy because of the potential for pre-analytical collection error and specifically in patients with decreased peripheral blood flow, as it may not truly reflect the patient? s true physiological state. Examples include, but are not limited to, severe hypotension, shock, hyperosmolar-hyperglycemia (with or without ketosis), and severe dehydration. 06/13/2024 5:36 PM CDT 06/13/2024 5:36 PM CDT Pina Bonilla MD LAB POINT OF CARE TE ST DOCKED DEVICE UNSOLICITED RESULTS Performing Organization Address [facility] Co de Phone Number [facility] [address] [place] [phone] * (ABNORMAL) POCT Precision glucose (06/13/2024 11:48 AM CDT) Glucose Blood, POC 273(H) 70 - 100 mg/dL 06/13/2024 11:48 AM CDT [facility] Comment: Meter ID: [id number] Capillary whole blood specimens should not be used in patients receiving intensive medical intervention/therapy because of the potential for pre-analytical collection error and specifically in patients with decreased peripheral blood flow, as it may not truly reflect the patient? s true physiological state. Examples include, but are not limited to, severe hypotension, shock, hyperosmolar-hyperglycemia (with or without ketosis), and severe dehydration. 06/13/2024 11:4 8 AM CDT 06/13/2024 11:49 AM CDT Shantell Lewis MD LAB POINT OF CARE TEST DOCKED DEVICE UNSOLICITED RESULTS Performing Organization Address [facility] Co de Phone Number [facility] [address] [place] [address] * (ABNORMAL) POCT Precision glucose (06/13/2024 6:37 AM CDT) Pathologist [facility] Glucose Blood, POC 180(H) 70 - 100 mg/dL 06/13/2024 6:37 AM CDT [facility] Comment: Meter ID: [id number] Capillary whole blood specimens should not be used in patients receiving intensive medical intervention/therapy because of the potential for pre-analytical collection error and specifically in patients with decreased peripheral blood flow, as it may not truly reflect the patient? s true physiological state. Examples include, but are not limited to, severe hypotension, shock, hyperosmolar-hyperglycemia (with or without ketosis), and severe dehydration. 06/13/2024 6:37 AM CDT 06/13/2024 6:38 AM CDT Shantell Lewis MD LAB POINT OF CARE TEST DOCKED DEVICE UNSOLICITED RESULTS Performing Organization Address [facility] Co de Phone Number [facility] [address] [place] [address] * Estimated Glomerular Filtration Rate (eGFR) (06/13/2024 5:00 AM CDT) [facility] Estimated Glomerular Filtration Rate (eGFR) >60 06/13/2024 5:48 AM CDT [facility] Comment: GFR calculated from serum creatinine value Chronic Kidney Disease less than 60 mL/min/1.73 m2 Kidney Failure less than 15 mL/min/1.73 m2 Note: effective 10/17/2022: 2020 CKD-EPI Equation used 06/13/2024 5:00 AM CDT 06/13/2024 5:00 AM CDT Shantell Lewis MD LAB BLOOD ORDERAB LES Performing Organization Address [facility] Co de Phone Number [facility] [address] [place] [address] * (ABNORMAL) Basic metabolic panel (06/13/2024 5:00 AM CDT) Sodium 135 135 - 145 mEq/L 06/13/2024 5:48 AM T [facility] Potassium 4.0 3.5 - 5.1 mEq/L 06/13/2024 5:48 AM [facility] Chloride 102 98 - 107 mEq/L 06/13/2024 5:48 AM [facility] CO2 29 22 - 31 mmol/L 06/13/2024 5:48 AM [facility] Creatinine 1.21 0.60 - 1.40 mg/dL 06/13/2024 5:48 AM [facility] BUN 26(H) 5 - 25 mg/dL 06/13/2024 5:48 AM [facility] Glucose 188(H) 70 - 100 mg/dL 06/13/2024 5:48 AM [facility] Calcium, Total,S 8.7 8.4 - 10.2 mg/dL 06/13/2024 5:48 AM [facility] Anion Gap 4 4 - 13 06/13/2024 5:48 AM [facility] Comment: The anion gap is calculated with the following formula: AGAP = Na ? (Cl + CO2). Fasting? Yes 06/13/2024 5:23 AM T [facility] Blood (Blood, Venous) 06/13/2024 5:00 AM CDT 06/13/2024 5:23 AM CDT Shantell Lewis MD LAB BLOOD ORDERAB LES Performing Organization Address City/[facility] Co de Phone Number [facility] [address] [place] [address] * (ABNORMAL) CBC ([employer]) (06/13/2024 5:00 AM CDT) WBC 16.2(H) 3.5 - 10.5 K/uL 06/13/2024 5:33 AM CDT [facility] RBC 5.00 4.30 - 5.70 M/uL 06/13/2024 5:33 AM CDT [facility] Hemoglobin 14.8 13.5 - 17.5 g/dL 06/13/2024 5:33 AM T [facility] Hematocrit 46.7 38.0 - 50.0 % 06/13/2024 5:33 AM T [facility] Platelets 382 150 - 450 K/uL 06/13/2024 5:33 AM T [facility] MCV 93.4 81.2 - 95.1 fL 06/13/2024 5:33 AM T [facility] MCH 29.6 26.0 - 32.0 pg 06/13/2024 5:33 AM T [facility] MCHC 31.7(L) 32.0 - 36.0 g/dL 06/13/2024 5:33 AM T [facility] RDW 15.2 11.8 - 15.6 % 06/13/2024 5:33 AM T [facility] NRBC %, Automated 0 % 06/13/2024 5:33 AM T [facility] NRBC Absolute, Autmated 0.00 K/uL 06/13/2024 5:33 AM T [facility] Comment: 0-4 Days: 0.01 -0.02 >=5 Days: 0.00 Blood (Blood, Venous) 06/13/2024 5:00 AM CDT 06/13/2024 5:23 AM CDT Shantell Lewis MD LAB BLOOD ORDERAB LES Performing Organization Address City/[facility]/ZIP Co de Phone Number [facility] [address] [place] [phone] * (ABNORMAL) POCT Precision glucose (06/13/2024 12:06 AM CDT) Glucose Blood, POC 292(H) 70 - 100 mg/dL 06/13/2024 12:07 AM CDT [facility] Comment: Meter ID: [id number] Capillary whole blood specimens should not be used in patients receiving intensive medical intervention/therapy because of the potential for pre-analytical collection error and specifically in patients with decreased peripheral blood flow, as it may not truly reflect the patient? s true physiological state. Examples include, but are not limited to, severe hypotension, shock, hyperosmolar-hyperglycemia (with or without ketosis), and severe dehydration. 06/13/2024 12:0 6 AM CDT 06/13/2024 12:07 AM CDT Shantell Lewis MD LAB POINT OF CARE TEST DOCKED DEVICE UNSOLICITED RESULTS Performing Organization Address [facility] Co de Phone Number [facility] [address] [place] [phone] * (ABNORMAL) POCT Precision glucose (06/12/2024 7:12 PM CDT) Glucose Blood, POC 161(H) 70 - 100 mg/dL 06/12/2024 7:12 PM CDT [facility] Comment: Meter ID: [id number] Capillary whole blood specimens should not be used in patients receiving intensive medical intervention/therapy because of the potential for pre-analytical collection error and specifically in patients with decreased peripheral blood flow, as it may not truly reflect the patient? s true physiological state. Examples include, but are not limited to, severe hypotension, shock, hyperosmolar-hyperglycemia (with or without ketosis), and severe dehydration. 06/12/2024 7:12 PM CDT 06/12/2024 7:13 PM CDT Shantell Lewis MD LAB POINT OF CARE TEST DOCKED DEVICE UNSOLICITED RESULTS Performing Organization Address [facility]/ZIP Co de Phone Number [facility] [address] [place] [phone] * (ABNORMAL) POCT Precision glucose (06/12/2024 6:32 PM CDT) Pathologist [facility] Glucose Blood, POC 120(H) 70 - 100 mg/dL 06/12/2024 6:33 PM CDT [facility] Comment: Meter ID: [id number] Capillary whole blood specimens should not be used in patients receiving intensive medical intervention/therapy because of the potential for pre-analytical collection error and specifically in patients with decreased peripheral blood flow, as it may not truly reflect the patient? s true physiological state. Examples include, but are not limited to, severe hypotension, shock, hyperosmolar-hyperglycemia (with or without ketosis), and severe dehydration. 06/12/2024 6:32 PM CDT 06/12/2024 6:33 PM CDT Shantell Lewis MD LAB POINT OF CARE TEST DOCKED DEVICE UNSOLICITED RESULTS Performing Organization Address [facility] Co de Phone Number [facility] [address] [place] [phone] * Tissue Culture, Anaerobic (06/12/2024 5:05 PM CDT) [facility] Tissue Culture, Anaerobic No Anaerobes isolated in 7 days 06/19/2024 12:28 PM CDT [facility] Gram Stain No organisms seen. No WBC's seen. 06/13/2024 12:19 PM CDT [facility] Swab (Foot, Right) 06/12/2024 5:05 PM CDT Angel Coombs DPM LAB MICROBIOLOGY - G ENERAL ORDERABLES Performing Organization Address [facility]/ZIP Co de Phone Number [facility] [address] [place] [phone] * (ABNORMAL) Tissue culture, aerobic (06/12/2024 5:04 PM CDT) Pathologist [facility] Gram Stain No organisms seen. No WBC's seen. 06/13/2024 12:20 PM CDT [facility] Tissue Culture, Aerobic Staphylococcus aureus Many Use oxacillin interpretation to predict results for anti-staphylococc al beta-lactam antibiotics (except ceftaroline). (A) 06/15/2024 8:41 AM CDT [facility] Swab (Foot, Right) 06/12/2024 5:04 PM CDT Narrative Organism Antibiotic Method Susceptibility Staphylococcus aureus Clindamycin <=0.5 mcg/mL: Susceptible Staphylococcus aureus Erythromycin <=0.5 mcg/mL: Susceptible Staphylococcus aureus Oxacillin 0.5 mcg/mL: Susceptible Staphylococcus aureus Tetracycline <=4 mcg/mL: Susceptible Staphylococcus aureus Trimeth/Sulfa <=0.5/9.5 mcg/mL: Susceptible Angel Coombs [facility] LAB MICROBIOLOGY - G ENERAL ORDERABLES Performing Organization Address City/[facility]/ZIP Co de Phone Number [facility] [address] [place] [phone] * (ABNORMAL) POCT Precision glucose (06/12/2024 11:59 AM CDT) [facility] Glucose Blood, POC 177(H) 70 - 100 mg/dL 06/12/2024 12:00 PM CDT [facility] Comment: Meter ID: [id number] Capillary whole blood specimens should not be used in patients receiving intensive medical intervention/therapy because of the potential for pre-analytical collection error and specifically in patients with decreased peripheral blood flow, as it may not truly reflect the patient? s true physiological state. Examples include, but are not limited to, severe hypotension, shock, hyperosmolar-hyperglycemia (with or without ketosis), and severe dehydration. 06/12/2024 11:5 9 AM CDT 06/12/2024 12:01 PM CDT Shantell Lewis MD LAB POINT OF CARE TEST DOCKED DEVICE UNSOLICITED RESULTS Performing Organization Address [facility]/ZIP Co de Phone Number [facility] [address] [place] [phone] * Estimated Glomerular Filtration Rate (eGFR) (06/12/2024 5:40 AM CDT) Estimated Glomerular Filtration Rate (eGFR) >60 06/12/2024 6:15 AM [facility] Comment: GFR calculated from serum creatinine value Chronic Kidney Disease less than 60 mL/min/1.73 m2 Kidney Failure less than 15 mL/min/1.73 m2 Note: effective 10/17/2022: 2020 CKD-EPI Equation used 06/12/2024 5:40 AM CDT 06/12/2024 5:40 AM CDT Steve Lopez [facility] LAB BLOOD ORDERABLES [facility] [address] [place] [address] * (ABNORMAL) Basic metabolic panel (06/12/2024 5:40 AM CDT) Pathologist [facility] Sodium 137 135 - 145 mEq/L 06/12/2024 6:15 AM [facility] Potassium 4.2 3.5 - 5.1 mEq/L 06/12/2024 6:15 AM [facility] Chloride 103 98 - 107 mEq/L 06/12/2024 6:15 AM [facility] CO2 29 22 - 31 mmol/L 06/12/2024 6:15 AM [facility] Creatinine 1.13 0.60 - 1.40 mg/dL 06/12/2024 6:15 AM [facility] BUN 25 5 - 25 mg/dL 06/12/2024 6:15 AM [facility] Glucose 172(H) 70 - 100 mg/dL 06/12/2024 6:15 AM [facility] Calcium, Total,S 9.2 8.4 - 10.2 mg/dL 06/12/2024 6:15 AM [facility] Anion Gap 5 4 - 13 06/12/2024 6:15 AM [facility] Comment: The anion gap is calculated with the following formula: AGAP = Na ? (Cl + CO2). Fasting? Yes 06/12/2024 5:58 AM T [facility] Blood (Blood, Venous) 06/12/2024 5:40 AM CDT 06/12/2024 5:57 AM CDT Shantell Lewis MD LAB BLOOD ORDERAB LES [facility] [address] [place] [address] * (ABNORMAL) CBC ([facility] [employer]) (06/12/2024 5:40 AM CDT) WBC 14.4(H) 3.5 - 10.5 K/uL 06/12/2024 5:59 AM [facility] RBC 5.22 4.30 - 5.70 M/uL 06/12/2024 5:59 AM [facility] Hemoglobin 15.5 13.5 - 17.5 g/dL 06/12/2024 5:59 AM [facility] Hematocrit 48.2 38.0 - 50.0 % 06/12/2024 5:59 AM [facility] Platelets 396 150 - 450 K/uL 06/12/2024 5:59 AM [facility] MCV 92.3 81.2 - 95.1 fL 06/12/2024 5:59 AM [facility] MCH 29.7 26.0 - 32.0 pg 06/12/2024 5:59 AM [facility] MCHC 32.2 32.0 - 36.0 g/dL 06/12/2024 5:59 AM [facility] RDW 15.1 11.8 - 15.6 % 06/12/2024 5:59 AM [facility] NRBC %, Automated 0 % 06/12/2024 5:59 AM [facility] NRBC Absolute, Autmated 0.00 K/uL 06/12/2024 5:59 AM [facility] Comment: 0-4 Days: 0.01 -0.02 >=5 Days: 0.00 Blood (Blood, Venous) 06/12/2024 5:40 AM CDT 06/12/2024 5:57 AM CDT Shantell Lewis MD LAB BLOOD ORDERAB LES Performing Organization Address [facility] de Phone Number [facility] [address] [place] [phone] * (ABNORMAL) POCT Precision glucose (06/11/2024 9:29 PM CDT) Glucose Blood, POC 300(H) 70 - 100 mg/dL 06/11/2024 9:39 PM CDT [facility] Comment: Meter ID: [id number] Capillary whole blood specimens should not be used in patients receiving intensive medical intervention/therapy because of the potential for pre-analytical collection error and specifically in patients with decreased peripheral blood flow, as it may not truly reflect the patient? s true physiological state. Examples include, but are not limited to, severe hypotension, shock, hyperosmolar-hyperglycemia (with or without ketosis), and severe dehydration. 06/11/2024 9:29 PM CDT 06/11/2024 9:39 PM CDT Shantell Lewis MD LAB POINT OF CARE TEST DOCKED DEVICE UNSOLICITED RESULTS Performing Organization Address [facility] de Phone Number [facility] [address] [place] [phone] * (ABNORMAL) POCT Precision glucose (06/11/2024 4:47 PM CDT) Glucose Blood, POC 257(H) 70 - 100 mg/dL 06/11/2024 4:48 PM CDT [facility] Comment: Meter ID: [id number] Capillary whole blood specimens should not be used in patients receiving intensive medical intervention/therapy because of the potential for pre-analytical collection error and specifically in patients with decreased peripheral blood flow, as it may not truly reflect the patient? s true physiological state. Examples include, but are not limited to, severe hypotension, shock, hyperosmolar-hyperglycemia (with or without ketosis), and severe dehydration. 06/11/2024 4:47 PM CDT 06/11/2024 4:48 PM CDT Shantell Lewis MD LAB POINT OF CARE TEST DOCKED DEVICE UNSOLICITED RESULTS Performing Organization Address [facility] de Phone Number [facility] [address] [place] [phone] * (ABNORMAL) POCT Precision glucose (06/11/2024 11:29 AM CDT) Glucose Blood, POC 252(H) 70 - 100 mg/dL 06/11/2024 11:29 AM CDT [facility] Comment: Meter ID: [id number] Capillary whole blood specimens should not be used in patients receiving intensive medical intervention/therapy because of the potential for pre-analytical collection error and specifically in patients with decreased peripheral blood flow, as it may not truly reflect the patient? s true physiological state. Examples include, but are not limited to, severe hypotension, shock, hyperosmolar-hyperglycemia (with or without ketosis), and severe dehydration. 06/11/2024 11:2 9 AM CDT 06/11/2024 11:30 AM CDT Shantell Lewis MD LAB POINT OF CARE TEST DOCKED DEVICE UNSOLICITED RESULTS Performing Organization Address [facility] Phone Number [facility] [address] [place] [phone] * (ABNORMAL) POCT Precision glucose (06/11/2024 7:34 AM CDT) Glucose Blood, POC 168(H) 70 - 100 mg/dL 06/11/2024 7:35 AM CDT [facility] Comment: Meter ID: [id number] Capillary whole blood specimens should not be used in patients receiving intensive medical intervention/therapy because of the potential for pre-analytical collection error and specifically in patients with decreased peripheral blood flow, as it may not truly reflect the patient? s true physiological state. Examples include, but are not limited to, severe hypotension, shock, hyperosmolar-hyperglycemia (with or without ketosis), and severe dehydration. 06/11/2024 7:34 AM CDT 06/11/2024 7:35 AM CDT Shantell Lewis MD LAB POINT OF CARE TEST DOCKED DEVICE UNSOLICITED RESULTS Performing Organization Address [facility] Co de Phone Number [facility] [address] [place] [phone] * Estimated Glomerular Filtration Rate (eGFR) (06/11/2024 6:10 AM CDT) Estimated Glomerular Filtration Rate (eGFR) >60 06/11/2024 7:10 AM T [facility] Comment: GFR calculated from serum creatinine value Chronic Kidney Disease less than 60 mL/min/1.73 m2 Kidney Failure less than 15 mL/min/1.73 m2 Note: effective 10/17/2022: 2020 CKD-EPI Equation used 06/11/2024 6:10 AM CDT 06/11/2024 6:10 AM CDT Steve SILVA LAB BLOOD ORDERABLES Performing Organization Address [facility] de Phone Number [facility] [address] [place], [place] [phone] * (ABNORMAL) Basic metabolic panel (06/11/2024 6:10 AM CDT) Sodium 138 135 - 145 mEq/L 06/11/2024 7:10 AM T [facility] Potassium 4.2 3.5 - 5.1 mEq/L 06/11/2024 7:10 AM T [facility] Chloride 104 98 - 107 mEq/L 06/11/2024 7:10 AM T [facility] CO2 25 22 - 31 mmol/L 06/11/2024 7:10 AM [facility] Creatinine 1.20 0.60 - 1.40 mg/dL 06/11/2024 7:10 AM [facility] BUN 24 5 - 25 mg/dL 06/11/2024 7:10 AM T [facility] Glucose 173(H) 70 - 100 mg/dL 06/11/2024 7:10 AM [facility] Calcium, Total,S 9.5 8.4 - 10.2 mg/dL 06/11/2024 7:10 AM [facility] Anion Gap 9 4 - 13 06/11/2024 7:10 AM [facility] Comment: The anion gap is calculated with the following formula: AGAP = Na ? (Cl + CO2). Fasting? Yes 06/11/2024 6:49 AM [facility] Blood (Blood, Venous) 06/11/2024 6:10 AM CDT 06/11/2024 6:49 AM CDT Shantell Lewis MD LAB BLOOD ORDERAB LES Performing Organization Address City/State/[facility] Co de Phone Number [facility] [address] [place], [place] [address] * (ABNORMAL) CBC ([employer]) (06/11/2024 6:10 AM CDT) WBC 14.5(H) 3.5 - 10.5 K/uL 06/11/2024 6:53 AM [facility] RBC 5.09 4.30 - 5.70 M/uL 06/11/2024 6:53 AM [facility] Hemoglobin 15.3 13.5 - 17.5 g/dL 06/11/2024 6:53 AM [facility] Hematocrit 46.8 38.0 - 50.0 % 06/11/2024 6:53 AM [facility] Platelets 389 150 - 450 K/uL 06/11/2024 6:53 AM [facility] MCV 91.9 81.2 - 95.1 fL 06/11/2024 6:53 AM [facility] MCH 30.1 26.0 - 32.0 pg 06/11/2024 6:53 AM [facility] MCHC 32.7 32.0 - 36.0 g/dL 06/11/2024 6:53 AM CDT [facility] RDW 15.3 11.8 - 15.6 % 06/11/2024 6:53 AM CDT [facility] NRBC %, Automated 0 % 06/11/2024 6:53 AM CDT [facility] NRBC Absolute, Autmated 0.00 K/uL 06/11/2024 6:53 AM CDT [facility] Comment: 0-4 Days: 0.01 -0.02 >=5 Days: 0.00 Blood (Blood, Venous) 06/11/2024 6:10 AM CDT 06/11/2024 6:49 AM CDT Shantell Lewis MD LAB BLOOD ORDERAB LES Performing Organization Address [facility]/ZIP Co de Phone Number [facility] [address] [place] [address] * (ABNORMAL) POCT Precision glucose (06/10/2024 9:46 PM CDT) Glucose Blood, POC 149(H) 70 - 100 mg/dL 06/10/2024 9:46 PM CDT [facility] Comment: Meter ID: [id number] Capillary whole blood specimens should not be used in patients receiving intensive medical intervention/therapy because of the potential for pre-analytical collection error and specifically in patients with decreased peripheral blood flow, as it may not truly reflect the patient? s true physiological state. Examples include, but are not limited to, severe hypotension, shock, hyperosmolar-hyperglycemia (with or without ketosis), and severe dehydration. 06/10/2024 9:46 PM CDT 06/10/2024 9:47 PM CDT Shantell Lewis MD LAB POINT OF CARE TEST DOCKED DEVICE UNSOLICITED RESULTS Performing Organization Address [facility]/ZIP Co de Phone Number [facility] [address] [place], [place] [phone] * (ABNORMAL) POCT Precision glucose (06/10/2024 5:10 PM CDT) Glucose Blood, POC 230(H) 70 - 100 mg/dL 06/10/2024 5:10 PM CDT [facility] Comment: Meter ID: [id number] Capillary whole blood specimens should not be used in patients receiving intensive medical intervention/therapy because of the potential for pre-analytical collection error and specifically in patients with decreased peripheral blood flow, as it may not truly reflect the patient? s true physiological state. Examples include, but are not limited to, severe hypotension, shock, hyperosmolar-hyperglycemia (with or without ketosis), and severe dehydration. 06/10/2024 5:10 PM CDT 06/10/2024 5:10 PM CDT Shantell Lewis MD LAB POINT OF CARE TEST DOCKED DEVICE UNSOLICITED RESULTS Performing Organization Address [facility] Phone Number [facility] [address] [place], [place] [phone] * (ABNORMAL) POCT Precision glucose (06/10/2024 11:33 AM CDT) [facility] Glucose Blood, POC 286(H) 70 - 100 mg/dL 06/10/2024 11:34 AM CDT [facility] Comment: Meter ID: [id number] Capillary whole blood specimens should not be used in patients receiving intensive medical intervention/therapy because of the potential for pre-analytical collection error and specifically in patients with decreased peripheral blood flow, as it may not truly reflect the patient? s true physiological state. Examples include, but are not limited to, severe hypotension, shock, hyperosmolar-hyperglycemia (with or without ketosis), and severe dehydration. 06/10/2024 11:3 3 AM CDT 06/10/2024 11:35 AM CDT Shantell Lewis MD LAB POINT OF CARE TEST DOCKED DEVICE UNSOLICITED RESULTS Performing Organization Address [facility] Co de Phone Number [facility] [address] [place] [phone] * (ABNORMAL) POCT Precision glucose (06/10/2024 6:31 AM CDT) Glucose Blood, POC 170(H) 70 - 100 mg/dL 06/10/2024 6:31 AM CDT [facility] Comment: Meter ID: [id number] Capillary whole blood specimens should not be used in patients receiving intensive medical intervention/therapy because of the potential for pre-analytical collection error and specifically in patients with decreased peripheral blood flow, as it may not truly reflect the patient? s true physiological state. Examples include, but are not limited to, severe hypotension, shock, hyperosmolar-hyperglycemia (with or without ketosis), and severe dehydration. 06/10/2024 6:31 AM CDT 06/10/2024 6:32 AM CDT Shantell Lewis MD LAB POINT OF CARE TEST DOCKED DEVICE UNSOLICITED RESULTS Performing Organization Address [facility] Co de Phone Number [facility] [address] [place] [phone] * Estimated Glomerular Filtration Rate (eGFR) (06/10/2024 5:54 AM CDT) Pathologist [facility] Estimated Glomerular Filtration Rate (eGFR) >60 06/10/2024 6:13 AM CDT [facility] Comment: GFR calculated from serum creatinine value Chronic Kidney Disease less than 60 mL/min/1.73 m2 Kidney Failure less than 15 mL/min/1.73 m2 Note: effective 10/17/2022: 2020 CKD-EPI Equation used 06/10/2024 5:54 AM CDT 06/10/2024 5:54 AM CDT Steve Lopez DP LAB BLOOD ORDERABLES Performing Organization Address [facility]/ZIP Co de Phone Number [facility] [address] [place] [phone] * (ABNORMAL) Basic metabolic panel (06/10/2024 5:54 AM CDT) Sodium 138 135 - 145 mEq/L 06/10/2024 6:13 AM CDT [facility] Potassium 4.2 3.5 - 5.1 mEq/L 06/10/2024 6:13 AM [facility] Chloride 107 98 - 107 mEq/L 06/10/2024 6:13 AM [facility] CO2 24 22 - 31 mmol/L 06/10/2024 6:13 AM [facility] Creatinine 1.23 0.60 - 1.40 mg/dL 06/10/2024 6:13 AM [facility] BUN 24 5 - 25 mg/dL 06/10/2024 6:13 AM [facility] Glucose 139(H) 70 - 100 mg/dL 06/10/2024 6:13 AM [facility] Calcium, Total,S 9.3 8.4 - 10.2 mg/dL 06/10/2024 6:13 AM [facility] Anion Gap 7 4 - 13 06/10/2024 6:13 AM [facility] Comment: The anion gap is calculated with the following formula: AGAP = Na ? (Cl + CO2). Fasting? Yes 06/10/2024 6:01 AM [facility] Blood (Blood, Venous) 06/10/2024 5:54 AM CDT 06/10/2024 6:01 AM CDT Shantell Lewis MD LAB BLOOD ORDERAB LES [facility] [address] [place] [address] * (ABNORMAL) CBC ([employer]) (06/10/2024 5:54 AM CDT) WBC 15.2(H) 3.5 - 10.5 K/uL 06/10/2024 6:07 AM [facility] RBC 5.00 4.30 - 5.70 M/uL 06/10/2024 6:07 AM [facility] Hemoglobin 15.2 13.5 - 17.5 g/dL 06/10/2024 6:07 AM T [facility] Hematocrit 47.1 38.0 - 50.0 % 06/10/2024 6:07 AM T [facility] Platelets 347 150 - 450 K/uL 06/10/2024 6:07 AM T [facility] MCV 94.2 81.2 - 95.1 fL 06/10/2024 6:07 AM T [facility] MCH 30.4 26.0 - 32.0 pg 06/10/2024 6:07 AM T [facility] MCHC 32.3 32.0 - 36.0 g/dL 06/10/2024 6:07 AM T [facility] RDW 15.6 11.8 - 15.6 % 06/10/2024 6:07 AM [facility] NRBC %, Automated 0 % 06/10/2024 6:07 AM [facility] NRBC Absolute, Autmated 0.00 K/uL 06/10/2024 6:07 AM [facility] Comment: 0-4 Days: 0.01 -0.02 >=5 Days: 0.00 Blood (Blood, Venous) 06/10/2024 5:54 AM CDT 06/10/2024 6:01 AM CDT Shantell Lewis MD LAB BLOOD ORDERAB LES [facility] [address] [place] [address] * (ABNORMAL) POCT Precision glucose (06/09/2024 11:24 PM CDT) [facility] Signature Glucose Blood, POC 141(H) 70 - 100 mg/dL 06/09/2024 11:24 PM T [facility] Comment: Meter ID: [id number] Capillary whole blood specimens should not be used in patients receiving intensive medical intervention/therapy because of the potential for pre-analytical collection error and specifically in patients with decreased peripheral blood flow, as it may not truly reflect the patient? s true physiological state. Examples include, but are not limited to, severe hypotension, shock, hyperosmolar-hyperglycemia (with or without ketosis), and severe dehydration. 06/09/2024 11:2 4 PM CDT 06/09/2024 11:25 PM CDT Shantell Lewis MD LAB POINT OF CARE TEST DOCKED DEVICE UNSOLICITED RESULTS Performing Organization Address [facility] de Phone Number [facility] [address] [place], [place] [phone] * (ABNORMAL) POCT Precision glucose (06/09/2024 6:27 PM CDT) Glucose Blood, POC 216(H) 70 - 100 mg/dL 06/09/2024 6:27 PM CDT [facility] Comment: Meter ID: [id number] Capillary whole blood specimens should not be used in patients receiving intensive medical intervention/therapy because of the potential for pre-analytical collection error and specifically in patients with decreased peripheral blood flow, as it may not truly reflect the patient? s true physiological state. Examples include, but are not limited to, severe hypotension, shock, hyperosmolar-hyperglycemia (with or without ketosis), and severe dehydration. 06/09/2024 6:27 PM CDT 06/09/2024 6:28 PM CDT Shantell Lewis MD LAB POINT OF CARE TEST DOCKED DEVICE UNSOLICITED RESULTS Performing Organization Address [facility] de Phone Number [facility] [address] [place] [phone] * Vancomycin (06/09/2024 11:38 AM CDT) Vancomycin 22.9 mcg/mL 06/09/2024 2:13 PM CDT [facility] Comment: Target Therapeutic Levels: ? General ?? 10-15 mcg/mL ? Pneumonia 15-20 mcg/mL Last Dose Date 4 06/09/2024 2:14 PM CDT [facility] Last Dose Time 1010 AM 06/09/2024 2:14 PM CDT [facility] Blood (Blood, Venous) 06/09/2024 11:38 AM CDT 06/09/2024 11:49 AM CDT Shantell Lewis MD LAB BLOOD ORDERAB LES Performing Organization Address [facility] de Phone Number [facility] [address] [place] [phone] * (ABNORMAL) POCT Precision glucose (06/09/2024 11:00 AM CDT) [facility] Glucose Blood, POC 242(H) 70 - 100 mg/dL 06/09/2024 11:01 AM CDT [facility] Comment: Meter ID: [id number] Capillary whole blood specimens should not be used in patients receiving intensive medical intervention/therapy because of the potential for pre-analytical collection error and specifically in patients with decreased peripheral blood flow, as it may not truly reflect the patient? s true physiological state. Examples include, but are not limited to, severe hypotension, shock, hyperosmolar-hyperglycemia (with or without ketosis), and severe dehydration. 06/09/2024 11:0 0 AM CDT 06/09/2024 11:01 AM CDT Shantell Lewis MD LAB POINT OF CARE TEST DOCKED DEVICE UNSOLICITED RESULTS Performing Organization Address [facility] de Phone Number [facility] [address] [place] [phone] * MRSA, by PCR, Nasal (06/09/2024 9:50 AM CDT) [facility] MRSA PCR NASAL NOT DETECTED Not Detected 06/09/2024 11:20 AM CDT [facility] Comment: MRSA DNA is not detected. Testing performed on the [employer] GeneXpert utilizing the MRSA NxG assay (real-time polymerase chain reaction (PCR) for the amplification of MRSA with targets to mecA/mecC and SCCmec) Swab (Nasal) 06/09/2024 9:50 AM CDT 06/09/2024 10:07 AM CDT Shatnell Lewis MD LAB MICROBIOLOGY - GENERAL ORDERABLES Performing Organization Address [facility] Co de Phone Number [facility] [address] [place] [phone] * (ABNORMAL) POCT Precision glucose (06/09/2024 6:39 AM CDT) Glucose Blood, POC 116(H) 70 - 100 mg/dL 06/09/2024 6:39 AM CDT [facility] Comment: Meter ID: [id number] Capillary whole blood specimens should not be used in patients receiving intensive medical intervention/therapy because of the potential for pre-analytical collection error and specifically in patients with decreased peripheral blood flow, as it may not truly reflect the patient? s true physiological state. Examples include, but are not limited to, severe hypotension, shock, hyperosmolar-hyperglycemia (with or without ketosis), and severe dehydration. 06/09/2024 6:39 AM CDT 06/09/2024 6:40 AM CDT Shantell Lewis MD LAB POINT OF CARE TEST DOCKED DEVICE UNSOLICITED RESULTS Performing Organization Address [facility] de Phone Number [facility] [address] [place] [address] * Estimated Glomerular Filtration Rate (eGFR) (06/09/2024 6:05 AM CDT) Estimated Glomerular Filtration Rate (eGFR) >60 06/09/2024 6:49 AM CDT [facility] Comment: GFR calculated from serum creatinine value Chronic Kidney Disease less than 60 mL/min/1.73 m2 Kidney Failure less than 15 mL/min/1.73 m2 Note: effective 10/17/2022: 2020 CKD-EPI Equation used 06/09/2024 6:05 AM CDT 06/09/2024 6:05 AM CDT Steve Lopez DP LAB BLOOD ORDERABLES Performing Organization Address [facility] Co de Phone Number [facility] [address] [place] [address] * (ABNORMAL) Basic metabolic panel (06/09/2024 6:05 AM CDT) Sodium 137 135 - 145 mEq/L 06/09/2024 6:49 AM T [facility] Potassium 4.2 3.5 - 5.1 mEq/L 06/09/2024 6:49 AM T [facility] Chloride 108(H) 98 - 107 mEq/L 06/09/2024 6:49 AM T [facility] CO2 24 22 - 31 mmol/L 06/09/2024 6:49 AM [facility] Creatinine 1.21 0.60 - 1.40 mg/dL 06/09/2024 6:49 AM [facility] BUN 29(H) 5 - 25 mg/dL 06/09/2024 6:49 AM [facility] Glucose 113(H) 70 - 100 mg/dL 06/09/2024 6:49 AM [facility] Calcium, Total,S 9.2 8.4 - 10.2 mg/dL 06/09/2024 6:49 AM [facility] Anion Gap 5 4 - 13 06/09/2024 6:49 AM [facility] Comment: The anion gap is calculated with the following formula: AGAP = Na ? (Cl + CO2). Fasting? Yes 06/09/2024 6:32 AM [facility] Blood (Blood, Venous) 06/09/2024 6:05 AM CDT 06/09/2024 6:31 AM CDT Shantell Lewis MD LAB BLOOD ORDERAB LES [facility] [address] [place] [address] * (ABNORMAL) CBC ([employer]) (06/09/2024 6:05 AM CDT) WBC 13.8(H) 3.5 - 10.5 K/uL 06/09/2024 6:37 AM [facility] RBC 5.05 4.30 - 5.70 M/uL 06/09/2024 6:37 AM [facility] Hemoglobin 14.9 13.5 - 17.5 g/dL 06/09/2024 6:37 AM [facility] Hematocrit 47.0 38.0 - 50.0 % 06/09/2024 6:37 AM [facility] Platelets 334 150 - 450 K/uL 06/09/2024 6:37 AM [facility] MCV 93.1 81.2 - 95.1 fL 06/09/2024 6:37 AM [facility] MCH 29.5 26.0 - 32.0 pg 06/09/2024 6:37 AM [facility] MCHC 31.7(L) 32.0 - 36.0 g/dL 06/09/2024 6:37 AM [facility] RDW 15.4 11.8 - 15.6 % 06/09/2024 6:37 AM [facility] NRBC %, Automated 0 % 06/09/2024 6:37 AM [facility] NRBC Absolute, Autmated 0.00 K/uL 06/09/2024 6:37 AM [facility] Comment: 0-4 Days: 0.01 -0.02 >=5 Days: 0.00 Blood (Blood, Venous) 06/09/2024 6:05 AM CDT 06/09/2024 6:31 AM T Shantell Lewis MD LAB BLOOD ORDERAB LES [facility] [address] [place] [address] * (ABNORMAL) POCT Precision glucose (06/08/2024 9:53 PM CDT) [facility] Signature Glucose Blood, POC 168(H) 70 - 100 mg/dL 06/08/2024 9:53 PM T [facility] Comment: Meter ID: [id number] Capillary whole blood specimens should not be used in patients receiving intensive medical intervention/therapy because of the potential for pre-analytical collection error and specifically in patients with decreased peripheral blood flow, as it may not truly reflect the patient? s true physiological state. Examples include, but are not limited to, severe hypotension, shock, hyperosmolar-hyperglycemia (with or without ketosis), and severe dehydration. 06/08/2024 9:53 PM CDT 06/08/2024 9:54 PM CDT Shantell Lewis MD LAB POINT OF CARE TEST DOCKED DEVICE UNSOLICITED RESULTS Performing Organization Address City/[facility]/ZIP Co de Phone Number [facility] [address] [place], [place] [phone] * (ABNORMAL) POCT Precision glucose (06/08/2024 3:44 PM CDT) [facility] Signature Glucose Blood, POC 104(H) 70 - 100 mg/dL 06/08/2024 3:45 PM CDT [facility] Comment: Meter ID: [id number] Capillary whole blood specimens should not be used in patients receiving intensive medical intervention/therapy because of the potential for pre-analytical collection error and specifically in patients with decreased peripheral blood flow, as it may not truly reflect the patient? s true physiological state. Examples include, but are not limited to, severe hypotension, shock, hyperosmolar-hyperglycemia (with or without ketosis), and severe dehydration. 06/08/2024 3:44 PM CDT 06/08/2024 3:45 PM CDT Shantell Lewis MD LAB POINT OF CARE TEST DOCKED DEVICE UNSOLICITED RESULTS [facility] [address] [place] [address] * Mini C-arm Fluoroscopy up to 1 [...] Lopez DPM IMG FLUOROSCOPY PROC EDURES * POCT Precision glucose (06/08/2024 3:08 PM CDT) Pathologist [facility] Glucose Blood, POC 73 70 - 100 mg/dL 06/08/2024 3:08 PM CDT [facility] Comment: Meter ID: [id number] Capillary whole blood specimens should not be used in patients receiving intensive medical intervention/therapy because of the potential for pre-analytical collection error and specifically in patients with decreased peripheral blood flow, as it may not truly reflect the patient? s true physiological state. Examples include, but are not limited to, severe hypotension, shock, hyperosmolar-hyperglycemia (with or without ketosis), and severe dehydration. 06/08/2024 3:08 PM CDT 06/08/2024 3:09 PM CDT Shantell Lewis MD LAB POINT OF CARE TEST DOCKED DEVICE UNSOLICITED RESULTS [facility] [address] [place] [address] * Pathology (06/08/2024 2:11 PM CDT) Tissue (Toe, Right) 06/08/2024 2:11 PM CDT Tissue (Foot, Right) 06/08/2024 2:38 PM CDT Narrative [facility] - 06/19/2024 2:53 PM CDT ? [facility] ? [address] ?[place] [address] ? Patient: ?KARIN DAVIS ? Procedure: ? 06/08/2024 14:11 /Age/Sex: ??1955, 69 Y, M ?Received: ?06/09/2024 08:04 ?Accession #: ?? [id number] Billing: ?[id number] ? Patient Location: Discharged Ordered by: ?? STEVE LOPEZ DPM ? Attending: ? 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 Type 2 diabetes mellitus with diabetic neuropathy, without intermodal customer service current use of insulin. GROSS DESCRIPTION: The [...] specimen is submitted into decal on 06/09/2024. Calender Supervisor sections are submitted into cassettes [id number] on [...] shave in cassette B1 on 06/18/2024. LAMONT Gibbons Stephanie ([facility]) Patient's identification labels match on requisition form [...] of 1 Steve Lopez DPM LAB PATHOLOGY [place] [facility] [address] [place] [address] * Tissue Culture, Anaerobic (06/08/2024 2:10 PM CDT) Arvin Kaur Tissue Culture, Anaerobic No Anaerobes isolated in 7 days 06/15/2024 1:22 PM CDT [facility] Gram Stain Few gram positive cocci, pairs and clusters. Few WBC'S. 06/09/2024 11:56 AM CDT [facility] Swab (Toe, Right) 06/08/2024 2:10 PM CDT Steve Lopez [facility] LAB MICROBIOLOGY - G ENERAL ORDERABLES Performing Organization Address [facility] de Phone Number [facility] [address] [place] [address] * (ABNORMAL) Tissue culture, aerobic (06/08/2024 2:10 PM CDT) Gram Stain Rare gram positive cocci, pairs. Rare WBC'S. 06/09/2024 11:54 AM CDT [facility] Tissue Culture, Aerobic Staphylococcus aureus Many Use oxacillin interpretation to predict results for anti-staphylococc al beta-lactam antibiotics (except ceftaroline). (A) 06/10/2024 11:05 AM CDT [facility] Swab (Toe, Right) 06/08/2024 2:10 PM CDT Narrative Organism Antibiotic Method Susceptibility Staphylococcus aureus Clindamycin <=0.5 mcg/mL: Susceptible Staphylococcus aureus Erythromycin <=0.5 mcg/mL: Susceptible Staphylococcus aureus Oxacillin <=0.25 mcg/mL: Susceptible Staphylococcus aureus Tetracycline <=4 mcg/mL: Susceptible Staphylococcus aureus Trimeth/Sulfa <=0.5/9.5 mcg/mL: Susceptible Steve Lopez [facility] LAB MICROBIOLOGY - G ENERAL ORDERABLES Performing Organization Address [facility] Co de Phone Number [facility] [address] [place] [address] * POCT Precision glucose (06/08/2024 12:30 PM CDT) Glucose Blood, POC 83 70 - 100 mg/dL 06/08/2024 12:30 PM CDT [facility] Comment: Meter ID: [id number] Capillary whole blood specimens should not be used in patients receiving intensive medical intervention/therapy because of the potential for pre-analytical collection error and specifically in patients with decreased peripheral blood flow, as it may not truly reflect the patient? s true physiological state. Examples include, but are not limited to, severe hypotension, shock, hyperosmolar-hyperglycemia (with or without ketosis), and severe dehydration. 06/08/2024 12:3 0 PM CDT 06/08/2024 12:31 PM CDT Shantell Lewis MD LAB POINT OF CARE TEST DOCKED DEVICE UNSOLICITED RESULTS Performing Organization Address [facility] Co de Phone Number [facility] [address] [place], [place] [address] * POCT Precision glucose (06/08/2024 8:45 AM CDT) Glucose Blood, POC 81 70 - 100 mg/dL 06/08/2024 8:45 AM CDT [facility] Comment: Meter ID: [id number] Capillary whole blood specimens should not be used in patients receiving intensive medical intervention/therapy because of the potential for pre-analytical collection error and specifically in patients with decreased peripheral blood flow, as it may not truly reflect the patient? s true physiological state. Examples include, but are not limited to, severe hypotension, shock, hyperosmolar-hyperglycemia (with or without ketosis), and severe dehydration. 06/08/2024 8:45 AM CDT 06/08/2024 8:46 AM CDT Shantell Lewis MD LAB POINT OF CARE TEST DOCKED DEVICE UNSOLICITED RESULTS Performing Organization Address [facility] Co de Phone Number [facility] [address] [place] [address] * POCT Precision glucose (06/08/2024 7:08 AM CDT) Glucose Blood, POC 80 70 - 100 mg/dL 06/08/2024 7:08 AM CDT [facility] Comment: Meter ID: [id number] Capillary whole blood specimens should not be used in patients receiving intensive medical intervention/therapy because of the potential for pre-analytical collection error and specifically in patients with decreased peripheral blood flow, as it may not truly reflect the patient? s true physiological state. Examples include, but are not limited to, severe hypotension, shock, hyperosmolar-hyperglycemia (with or without ketosis), and severe dehydration. 06/08/2024 7:08 AM CDT 06/08/2024 7:08 AM CDT Shantell Lewis MD LAB POINT OF CARE TEST DOCKED DEVICE UNSOLICITED RESULTS Performing Organization Address [facility] de Phone Number [facility] [address] [place] [address] * (ABNORMAL) Estimated Glomerular Filtration Rate (eGFR) (06/08/2024 6:05 AM CDT) Pathologist [facility] Estimated Glomerular Filtration Rate (eGFR) 58(A) 06/08/2024 7:07 AM CDT [facility] Comment: GFR calculated from serum creatinine value Chronic Kidney Disease less than 60 mL/min/1.73 m2 Kidney Failure less than 15 mL/min/1.73 m2 Note: effective 10/17/2022: 2020 CKD-EPI Equation used 06/08/2024 6:05 AM CDT 06/08/2024 6:05 AM CDT Shantell Lewis MD LAB BLOOD ORDERAB LES Performing Organization Address [facility] de Phone Number [facility] [address] [place] [address] * (ABNORMAL) Basic metabolic panel (06/08/2024 6:05 AM CDT) Sodium 138 135 - 145 mEq/L 06/08/2024 7:07 AM CDT [facility] Potassium 3.9 3.5 - 5.1 mEq/L 06/08/2024 7:07 AM T [facility] Chloride 109(H) 98 - 107 mEq/L 06/08/2024 7:07 AM T [facility] CO2 21(L) 22 - 31 mmol/L 06/08/2024 7:07 AM [facility] Creatinine 1.33 0.60 - 1.40 mg/dL 06/08/2024 7:07 AM [facility] BUN 36(H) 5 - 25 mg/dL 06/08/2024 7:07 AM [facility] Glucose 84 70 - 100 mg/dL 06/08/2024 7:07 AM [facility] Calcium, Total,S 8.9 8.4 - 10.2 mg/dL 06/08/2024 7:07 AM [facility] Anion Gap 8 4 - 13 06/08/2024 7:07 AM [facility] Comment: The anion gap is calculated with the following formula: AGAP = Na ? (Cl + CO2). Fasting? Yes 06/08/2024 6:57 AM [facility] Blood (Blood, Venous) 06/08/2024 6:05 AM CDT 06/08/2024 6:56 AM T Shantell Lewis MD LAB BLOOD ORDERAB LES [facility] [address] [place] [address] * (ABNORMAL) CBC ([employer]) (06/08/2024 6:05 AM CDT) WBC 14.2(H) 3.5 - 10.5 K/uL 06/08/2024 6:58 AM [facility] RBC 4.80 4.30 - 5.70 M/uL 06/08/2024 6:58 AM [facility] Hemoglobin 14.5 13.5 - 17.5 g/dL 06/08/2024 6:58 AM [facility] Hematocrit 44.6 38.0 - 50.0 % 06/08/2024 6:58 AM [facility] Platelets 298 150 - 450 K/uL 06/08/2024 6:58 AM [facility] MCV 92.9 81.2 - 95.1 fL 06/08/2024 6:58 AM CDT [facility] MCH 30.2 26.0 - 32.0 pg 06/08/2024 6:58 AM CDT [facility] MCHC 32.5 32.0 - 36.0 g/dL 06/08/2024 6:58 AM CDT [facility] RDW 15.1 11.8 - 15.6 % 06/08/2024 6:58 AM CDT [facility] NRBC %, Automated 0 % 06/08/2024 6:58 AM CDT [facility] NRBC Absolute, Autmated 0.00 K/uL 06/08/2024 6:58 AM T [facility] Comment: 0-4 Days: 0.01 -0.02 >=5 Days: 0.00 Blood (Blood, Venous) 06/08/2024 6:05 AM CDT 06/08/2024 6:56 AM CDT Shantell Lewis MD LAB BLOOD ORDERAB LES Performing Organization Address City/State/[facility] Co de Phone Number [facility] [address] [place] [address] * (ABNORMAL) POCT Precision glucose (06/07/2024 11:05 PM CDT) [facility] Glucose Blood, POC 141(H) 70 - 100 mg/dL 06/07/2024 11:05 PM CDT [facility] Comment: Meter ID: [id number] Capillary whole blood specimens should not be used in patients receiving intensive medical intervention/therapy because of the potential for pre-analytical collection error and specifically in patients with decreased peripheral blood flow, as it may not truly reflect the patient? s true physiological state. Examples include, but are not limited to, severe hypotension, shock, hyperosmolar-hyperglycemia (with or without ketosis), and severe dehydration. 06/07/2024 11:0 5 PM CDT 06/07/2024 11:06 PM CDT Shantell Lewis MD LAB POINT OF CARE TEST DOCKED DEVICE UNSOLICITED RESULTS [facility] [address] [place] [address] * POCT Precision glucose (06/07/2024 5:42 PM CDT) Glucose Blood, POC 95 70 - 100 mg/dL 06/07/2024 5:42 PM CDT [facility] Comment: Meter ID: [id number] Capillary whole blood specimens should not be used in patients receiving intensive medical intervention/therapy because of the potential for pre-analytical collection error and specifically in patients with decreased peripheral blood flow, as it may not truly reflect the patient? s true physiological state. Examples include, but are not limited to, severe hypotension, shock, hyperosmolar-hyperglycemia (with or without ketosis), and severe dehydration. 06/07/2024 5:42 PM CDT 06/07/2024 5:42 PM CDT Shantell Lewis MD LAB POINT OF CARE TEST DOCKED DEVICE UNSOLICITED RESULTS Performing Organization Address [facility] de Phone Number [facility] [address] [place] [address] * POCT Precision glucose (06/07/2024 12:04 PM CDT) Glucose Blood, POC 92 70 - 100 mg/dL 06/07/2024 12:04 PM CDT [facility] Comment: Meter ID: [id number] Capillary whole blood specimens should not be used in patients receiving intensive medical intervention/therapy because of the potential for pre-analytical collection error and specifically in patients with decreased peripheral blood flow, as it may not truly reflect the patient? s true physiological state. Examples include, but are not limited to, severe hypotension, shock, hyperosmolar-hyperglycemia (with or without ketosis), and severe dehydration. 06/07/2024 12:0 4 PM CDT 06/07/2024 12:05 PM CDT Shantell Lewis MD LAB POINT OF CARE TEST DOCKED DEVICE UNSOLICITED RESULTS Performing Organization Address [facility]/ZIP Co de Phone Number [facility] [address] [place] [address] * POCT Precision glucose (06/07/2024 7:17 AM CDT) [facility] Glucose Blood, POC 99 70 - 100 mg/dL 06/07/2024 7:17 AM CDT [facility] Comment: Meter ID: [id number] Capillary whole blood specimens should not be used in patients receiving intensive medical intervention/therapy because of the potential for pre-analytical collection error and specifically in patients with decreased peripheral blood flow, as it may not truly reflect the patient? s true physiological state. Examples include, but are not limited to, severe hypotension, shock, hyperosmolar-hyperglycemia (with or without ketosis), and severe dehydration. 06/07/2024 7:17 AM CDT 06/07/2024 7:18 AM CDT Shantell Lewis MD LAB POINT OF CARE TEST DOCKED DEVICE UNSOLICITED RESULTS Performing Organization Address [facility] de Phone Number [facility] [address] [place] [phone] * (ABNORMAL) Estimated Glomerular Filtration Rate (eGFR) (06/07/2024 5:13 AM CDT) [facility] Estimated Glomerular Filtration Rate (eGFR) 40(A) 06/07/2024 5:46 AM CDT [facility] Comment: GFR calculated from serum creatinine value Chronic Kidney Disease less than 60 mL/min/1.73 m2 Kidney Failure less than 15 mL/min/1.73 m2 Note: effective 10/17/2022: 2020 CKD-EPI Equation used 06/07/2024 5:13 AM CDT 06/07/2024 5:13 AM CDT Shantell Lewis MD LAB BLOOD ORDERAB LES Performing Organization Address [facility] Co de Phone Number [facility] [address] [place] [address] * (ABNORMAL) Basic metabolic panel (06/07/2024 5:13 AM CDT) Sodium 138 135 - 145 mEq/L 06/07/2024 5:46 AM T [facility] Potassium 4.0 3.5 - 5.1 mEq/L 06/07/2024 5:46 AM T [facility] Chloride 107 98 - 107 mEq/L 06/07/2024 5:46 AM T [facility] CO2 22 22 - 31 mmol/L 06/07/2024 5:46 AM [facility] Creatinine 1.81(H) 0.60 - 1.40 mg/dL 06/07/2024 5:46 AM [facility] BUN 55(H) 5 - 25 mg/dL 06/07/2024 5:46 AM [facility] Glucose 125(H) 70 - 100 mg/dL 06/07/2024 5:46 AM [facility] Calcium, Total,S 9.1 8.4 - 10.2 mg/dL 06/07/2024 5:46 AM [facility] Anion Gap 9 4 - 13 06/07/2024 5:46 AM [facility] Comment: The anion gap is calculated with the following formula: AGAP = Na ? (Cl + CO2). Fasting? Yes 06/07/2024 5:19 AM [facility] Blood (Blood, Venous) 06/07/2024 5:13 AM CDT 06/07/2024 5:18 AM CDT Shantell Lewis MD LAB BLOOD ORDERAB LES [facility] [address] [place] [address] * (ABNORMAL) CBC ([employer]) (06/07/2024 5:13 AM CDT) WBC 16.4(H) 3.5 - 10.5 K/uL 06/07/2024 5:39 AM T [facility] RBC 4.95 4.30 - 5.70 M/uL 06/07/2024 5:39 AM T [facility] Hemoglobin 14.8 13.5 - 17.5 g/dL 06/07/2024 5:39 AM [facility] Hematocrit 45.4 38.0 - 50.0 % 06/07/2024 5:39 AM [facility] Platelets 281 150 - 450 K/uL 06/07/2024 5:39 AM [facility] MCV 91.7 81.2 - 95.1 fL 06/07/2024 5:39 AM [facility] MCH 29.9 26.0 - 32.0 pg 06/07/2024 5:39 AM [facility] MCHC 32.6 32.0 - 36.0 g/dL 06/07/2024 5:39 AM [facility] RDW 15.1 11.8 - 15.6 % 06/07/2024 5:39 AM [facility] NRBC %, Automated 0 % 06/07/2024 5:39 AM [facility] NRBC Absolute, Autmated 0.00 K/uL 06/07/2024 5:39 AM [facility] Comment: 0-4 Days: 0.01 -0.02 >=5 Days: 0.00 Blood (Blood, Venous) 06/07/2024 5:13 AM CDT 06/07/2024 5:18 AM CDT Shantell Lewis MD LAB BLOOD ORDERAB LES [facility] [address] [place] [address] * Vancomycin (06/07/2024 5:13 AM CDT) [facility] Signature Vancomycin 9.6 mcg/mL 06/07/2024 7:00 AM T [facility] Comment: Target Therapeutic Levels: ? General ?? 10-15 mcg/mL ? Pneumonia 15-20 mcg/mL Last Dose Date 4 06/07/2024 7:02 AM CDT [facility] Last Dose Time 1040 06/07/2024 7:02 AM CDT [facility] Blood (Blood, Venous) 06/07/2024 5:13 AM CDT 06/07/2024 5:18 AM CDT Shantell Lewis MD LAB BLOOD ORDERAB LES Performing Organization Address City/[facility]/ZIP Co de Phone Number [facility] [address] [place] [address] * (ABNORMAL) POCT Precision glucose (06/06/2024 10:25 PM CDT) Glucose Blood, POC 220(H) 70 - 100 mg/dL 06/06/2024 10:25 PM CDT [facility] Comment: Meter ID: [id number] Capillary whole blood specimens should not be used in patients receiving intensive medical intervention/therapy because of the potential for pre-analytical collection error and specifically in patients with decreased peripheral blood flow, as it may not truly reflect the patient? s true physiological state. Examples include, but are not limited to, severe hypotension, shock, hyperosmolar-hyperglycemia (with or without ketosis), and severe dehydration. 06/06/2024 10:2 5 PM CDT 06/06/2024 10:26 PM CDT Shantell Lewis MD LAB POINT OF CARE TEST DOCKED DEVICE UNSOLICITED RESULTS Performing Organization Address City/[facility]/ZIP Co de Phone Number [facility] [address] [place] [address] * (ABNORMAL) POCT Precision glucose (06/06/2024 6:15 PM CDT) Glucose Blood, POC 229(H) 70 - 100 mg/dL 06/06/2024 6:16 PM CDT [facility] Comment: Meter ID: [id number] Capillary whole blood specimens should not be used in patients receiving intensive medical intervention/therapy because of the potential for pre-analytical collection error and specifically in patients with decreased peripheral blood flow, as it may not truly reflect the patient? s true physiological state. Examples include, but are not limited to, severe hypotension, shock, hyperosmolar-hyperglycemia (with or without ketosis), and severe dehydration. 06/06/2024 6:15 PM CDT 06/06/2024 6:16 PM CDT Shantell Lewis MD LAB POINT OF CARE TEST DOCKED DEVICE UNSOLICITED RESULTS Performing Organization Address [facility] Co de Phone Number [facility] [address] [place] [address] * (ABNORMAL) POCT Precision glucose (06/06/2024 1:56 PM CDT) [facility] Signature Glucose Blood, POC 249(H) 70 - 100 mg/dL 06/06/2024 1:56 PM CDT [facility] Comment: Meter ID: [id number] Capillary whole blood specimens should not be used in patients receiving intensive medical intervention/therapy because of the potential for pre-analytical collection error and specifically in patients with decreased peripheral blood flow, as it may not truly reflect the patient? s true physiological state. Examples include, but are not limited to, severe hypotension, shock, hyperosmolar-hyperglycemia (with or without ketosis), and severe dehydration. 06/06/2024 1:56 PM CDT 06/06/2024 1:57 PM CDT Shantell Lewis MD LAB POINT OF CARE TEST DOCKED DEVICE UNSOLICITED RESULTS Performing Organization Address [facility]/ZIP Co de Phone Number [facility] [address] [place] [address] * MRI foot right wo IV contrast [...] Signed) Lazaro Chin APRN, CNP IMG MRI DC OCEDURES * (ABNORMAL) Estimated Glomerular Filtration Rate (eGFR) (06/06/2024 10:00 AM CDT) Estimated Glomerular Filtration Rate (eGFR) 26(A) 06/06/2024 10:27 AM CDT [facility] Comment: GFR calculated from serum creatinine value Chronic Kidney Disease less than 60 mL/min/1.73 m2 Kidney Failure less than 15 mL/min/1.73 m2 Note: effective 10/17/2022: 2020 CKD-EPI Equation used 06/06/2024 10:0 0 AM CDT 06/06/2024 10:00 AM CDT Lazaro Chin APRN, CNP LAB BLOOD ORDERABLES [facility] [address] [place] [address] * Morphology (06/06/2024 10:00 AM CDT) Slide Review PERFORMED 06/06/2024 10:30 AM CDT [facility] RBC Morphology NORMAL 06/06/2024 10:30 AM CDT [facility] PLT Morphology ADEQUATE 06/06/2024 10:30 AM CDT [facility] 06/06/2024 10:0 0 AM CDT 06/06/2024 10:04 AM CDT Lazaro Chin APRN, CNP LAB BODY F LUIDS AND STOOLS ORDERABLES Performing Organization Address [facility] de Phone Number [facility] [address] [place], [place] [phone] * Reflexed Manual Diff (06/06/2024 10:00 AM CDT) Manual Differential PERFORMED 06/06/2024 10:30 AM CDT [facility] Total Counted 100 06/06/2024 10:29 AM CDT [facility] 06/06/2024 10:0 0 AM CDT 06/06/2024 10:04 AM CDT Lazaro Chin APRN, CNP LAB BLOOD ORDERABLES Performing Organization Address [facility] de Phone Number [facility] [address] [place] [address] * Blood gas, venous (06/06/2024 10:00 AM CDT) pH, Jorge 7.37 7.32 - 7.43 06/06/2024 10:14 AM CDT [facility] pCO2, Jorge 44 41 - 54 mm Hg 06/06/2024 10:14 AM CDT [facility] HCO3, Venous 25.4 22.0 - 29.0 mmol/L 06/06/2024 10:14 AM CDT [facility] Base Excess/Deficit Venous -0.2 -2.0 - 3.0 mmol/L 06/06/2024 10:14 AM CDT [facility] Blood (Blood, Venous) 06/06/2024 10:00 AM CDT 06/06/2024 10:04 AM CDT Lazaro Chin APRN, CNP LAB BLOOD ORDERABLES Performing Organization Address [facility] Co de Phone Number [facility] [address] [place] [address] * (ABNORMAL) Procalcitonin (06/06/2024 10:00 AM CDT) Procalcitonin 1.34(H) 0.00 - 0.07 ng/mL 06/06/2024 11:18 AM CDT [facility] Comment: The results from [...] AM CDT 06/06/2024 10:04 AM CDT Lazaro Trejo Giuseppe SHAH CNP LAB BLOOD ORDERABLES Performing Organization Address [facility] Co de Phone Number [facility] [address] [place] [address] * (ABNORMAL) C-reactive protein (06/06/2024 10:00 AM CDT) CRP >320.0(H) 0.0 - 4.9 mg/L 06/06/2024 10:32 AM CDT [facility] Blood (Blood, Venous) 06/06/2024 10:00 AM CDT 06/06/2024 10:04 AM CDT Narrative [facility] - 06/06/2024 10:32 AM CDT Called to Gely Jay, BUN 78, RBA , [phone], 10:27 06/06/2024 [id number] Lazaro Chin APRN, CNP LAB BLOOD ORDERABLES Performing Organization Address [facility] de Phone Number [facility] [address] [place], [place] [phone] * (ABNORMAL) Protime-INR (06/06/2024 10:00 AM CDT) Protime 19.0(H) 9.4 - 12.5 seconds 06/06/2024 10:17 AM CDT [facility] INR 1.6 06/06/2024 10:17 AM CDT [facility] Comment: Suggested INR Therapeutic Ranges* Intensity ?Standard ?Higher ? 2.0-3.0 ? 2.5-3.5 *Target INR should be individualized. Occasionally,INR range 3.0-4.5 may be appropriate. Higher intensity INR: Mechanical heart valve, etc. Blood (Blood, Venous) 06/06/2024 10:00 AM CDT 06/06/2024 10:04 AM CDT Lazaro Chin APRN, CNP LAB BLOOD ORDERABLES Performing Organization Address [facility] Co de Phone Number [facility] [address] [place] [address] * (ABNORMAL) Magnesium (06/06/2024 10:00 AM CDT) Magnesium 2.5(H) 1.6 - 2.3 mg/dL 06/06/2024 10:27 AM CDT [facility] Blood (Blood, Venous) 06/06/2024 10:00 AM CDT 06/06/2024 10:04 AM CDT Narrative [facility] - 06/06/2024 10:27 AM CDT Called to Gely Jay, BUN 78, RBA , [phone], 10:27 06/06/2024 [id number] Lazaro Chin APRN, CNP LAB BLOOD ORDERABLES Performing Organization Address [facility] Co de Phone Number [facility] [address] [place] [address] * (ABNORMAL) Hemoglobin A1c (06/06/2024 10:00 AM CDT) Hemoglobin A1C 9.0(H) 4.0 - 5.6 % A1C 06/08/2024 2:29 AM CDT [facility] Comment: Reference Range 4.0-5.6% [...] CNP LAB BLOOD ORDERABLES Performing Organization Address [facility] Co de Phone Number [facility] [address] [place] [address] * Lactate, plasma (06/06/2024 10:00 AM CDT) Lactate 1.3 0.5 - 2.0 mmol/L 06/06/2024 10:20 AM CDT [facility] Blood (Blood, Venous) 06/06/2024 10:00 AM CDT 06/06/2024 10:04 AM CDT Lazaro Chin APRN, CNP LAB BLOOD ORDERABLES Performing Organization Address City/[facility]/ZIP Co de Phone Number [facility] [address] [place] [address] * (ABNORMAL) Basic metabolic panel (06/06/2024 10:00 AM T) Sodium 134(L) 135 - 145 mEq/L 06/06/2024 10:27 AM [facility] Potassium 4.5 3.5 - 5.1 mEq/L 06/06/2024 10:27 AM [facility] Chloride 98 98 - 107 mEq/L 06/06/2024 10:27 AM [facility] CO2 24 22 - 31 mmol/L 06/06/2024 10:27 AM [facility] Creatinine 2.61(H) 0.60 - 1.40 mg/dL 06/06/2024 10:27 AM [facility] BUN 78(HH) 5 - 25 mg/dL 06/06/2024 10:27 AM [facility] Glucose 254(H) 70 - 100 mg/dL 06/06/2024 10:27 AM [facility] Calcium, Total,S 9.6 8.4 - 10.2 mg/dL 06/06/2024 10:27 AM [facility] Anion Gap 12 4 - 13 06/06/2024 10:27 AM [facility] Comment: The anion gap is calculated with the following formula: AGAP = Na ? (Cl + CO2). Fasting? Unknown 06/06/2024 10:04 AM [facility] Blood (Blood, Venous) 06/06/2024 10:00 AM CDT 06/06/2024 10:04 AM T [facility] - 06/06/2024 10:27 AM T Called to Gely Jay, BUN 78, RBA , [phone], 10:27 06/06/2024 [id number] Lazaro Chin HORSE GROOMER, BUSINESS DEVELOPMENT REPRESENTATIVE LAB BLOOD ORDERABLES [facility] [address] [place] [address] * (ABNORMAL) CBC auto differential (06/06/2024 10:00 AM [facility]) WBC 21.3(H) 3.5 - 10.5 K/uL 06/06/2024 10:30 AM [facility] RBC 5.56 4.30 - 5.70 M/uL 06/06/2024 10:30 AM [facility] Hemoglobin 16.7 13.5 - 17.5 g/dL 06/06/2024 10:30 AM [facility] Hematocrit 51.3(H) 38.0 - 50.0 % 06/06/2024 10:30 AM [facility] Platelets 302 150 - 450 K/uL 06/06/2024 10:30 AM [facility] MCV 92.3 81.2 - 95.1 fL 06/06/2024 10:30 AM [facility] MCH 30.0 26.0 - 32.0 pg 06/06/2024 10:30 AM [facility] MCHC 32.6 32.0 - 36.0 g/dL 06/06/2024 10:30 AM [facility] RDW 14.7 11.8 - 15.6 % 06/06/2024 10:30 AM [facility] NRBC %, Automated 0 % 06/06/2024 10:30 AM [facility] NRBC Absolute, Autmated 0.00 K/uL 06/06/2024 10:30 AM [facility] Comment: 0-4 Days: 0.01 -0.02 >=5 Days: 0.00 Neutrophils 91.0 % 06/06/2024 10:29 AM [facility] Absolute Neutrophils 19.4(H) 1.7 - 7.0 K/uL 06/06/2024 10:30 AM [facility] Lymphocytes % 3.0 % 06/06/2024 10:29 AM [facility] Absolute Lymphocytes 0.6(L) 0.9 - 2.9 K/uL 06/06/2024 10:30 AM [facility] Monocytes % 5.0 % 06/06/2024 10:29 AM [facility] Monocytes Absolute 1.1(H) 0.3 - 0.9 K/uL 06/06/2024 10:30 AM [facility] Eosinophils 1.0 % 06/06/2024 10:29 AM [facility] Absolute Eosinophils 0.2 0.1 - 0.5 K/uL 06/06/2024 10:30 AM [facility] Basophils 0.0 % 06/06/2024 10:29 AM [facility] Absolute Basophils 0.0 0.0 - 0.1 K/uL 06/06/2024 10:30 AM [facility] Immature Leukocytes 0.0 % 06/06/2024 10:29 AM [facility] Immature Leukocytes Absolute 0.00 0.00 - 0.04 K/uL 06/06/2024 10:30 AM [facility] Blood (Blood, Venous) 06/06/2024 10:00 AM CDT 06/06/2024 10:04 AM CDT Lazaro Chin APRN, CNP LAB BLOOD ORDERABLES Performing Organization Address City/[facility]/ZIP Co de Phone Number [facility] [address] [place], [place] [phone] * (ABNORMAL) APTT (06/06/2024 10:00 AM CDT) aPTT 40(H) 28 - 37 seconds 06/06/2024 10:17 AM T [facility] Comment: Therapeutic range for unfractionated heparin = 50-90 seconds Blood (Blood, Venous) 06/06/2024 10:00 AM CDT 06/06/2024 10:04 AM CDT Lazaro Chin APRN, CNP LAB BLOOD ORDERABLES [facility] [address] [place] [address] * Covid-19, Gutierrez ID Now, PCR symptomatic (06/06/2024 9:55 AM CDT) Covid Source Nasal 06/06/2024 10:34 AM CDT [facility] Covid-19, ID Now PCR NEGATIVE Negative 06/06/2024 10:34 AM CDT [facility] Comment: Negative results should be treated as presumptive and, if inconsistent with clinical signs and symptoms or necessary for patient management, should be tested with an alternative molecular assay. Testing was performed using the Gutierrez ID NOW COVID-19 2.0 assay. Swab (Nasal) 06/06/2024 9:55 AM CDT 06/06/2024 10:34 AM CDT Lazaro Chin APRN, CNP LAB MOLECU LAR DIAGNOSTICS ORDERABLES Performing Organization Address [facility] Co de Phone Number [facility] [address] [place] [address] * Tissue Culture, Anaerobic (06/06/2024 9:36 AM CDT) Tissue Culture, Anaerobic No Anaerobes isolated in 7 days 06/13/2024 10:21 AM CDT [facility] Gram Stain No organisms seen. No WBC's seen. 06/06/2024 2:38 PM CDT [facility] Tissue, Anaerobic (Foot, Right) 06/06/2024 9:36 AM CDT 06/06/2024 11:09 AM CDT Comment:Anaerobic Tissue Cul ture Lazaro Chin APRN, CNP LAB MICROB IOLOGY - GENERAL ORDERABLES Performing Organization Address City/[facility]/ZIP Co de Phone Number [facility] [address] [place] [phone] * (ABNORMAL) Tissue culture, aerobic (06/06/2024 9:36 AM CDT) Gram Stain No organisms seen. No WBC's seen. 06/06/2024 2:38 PM CDT [facility] Tissue Culture, Aerobic Staphylococcus aureus Use oxacillin interpretation to predict results for anti-staphylococc al beta-lactam antibiotics (except ceftaroline). (A) 06/08/2024 7:11 AM CDT [facility] Tissue, Aerobic (Foot, Right) 06/06/2024 9:36 AM CDT 06/06/2024 11:09 AM CDT Comment:Tissue Culture Aerob ic Narrative Organism Antibiotic Method Susceptibility Staphylococcus aureus Clindamycin <=0.5 mcg/mL: Susceptible Staphylococcus aureus Erythromycin <=0.5 mcg/mL: Susceptible Staphylococcus aureus Oxacillin <=0.25 mcg/mL: Susceptible Staphylococcus aureus Tetracycline <=4 mcg/mL: Susceptible Staphylococcus aureus Trimeth/Sulfa <=0.5/9.5 mcg/mL: Susceptible Lazaro Chin HORSE GROOMER, BUSINESS DEVELOPMENT REPRESENTATIVE LAB MICROB IOLOGY - GENERAL ORDERABLES [facility] [address] [place] [phone] documented in this encounter Visit Diagnoses Diagnosis Infection of right foot- Primary Infection of right foot Hyperglycemia Other abnormal glucose Acute renal failure, unspecified acute renal failure type (HCC) Type 2 diabetes mellitus with diabetic neuropathy, without long-term current use of insulin (HCC) Status post PICC central line placement Other postprocedural status Status post peripherally inserted central catheter (PICC) central line placement Longstanding persistent atrial fibrillation (HCC) documented in this encounter Admitting Diagnoses Diagnosis Infection of right foot documented in this encounter Administered Medications Inactive Administered Medications - up to 3 most recent administrations Medication Order MAR Action Action Date Dose Rate Site acetaminophen (TYLENOL) tablet 1,000 mg 1,000 mg, Oral, Every 6 hours PRN, Pain 1-5, fever, Starting on 06/06/24 at 1336, For 11 days 4 hours, 1st line Given 06/17/2024 8:14 AM CDT 1,000 mg Given 06/14/2024 8:07 AM CDT 1,000 mg Given 06/13/2024 10:48 AM CDT 1,000 mg apixaban (ELIQUIS) tablet 5 mg 5 mg, Oral, 2 times daily, First dose on 06/15/24 at 2100, For 10 days Given 06/17/2024 8:14 AM CDT 5 mg Given 06/16/2024 8:52 PM CDT 5 mg Given 06/16/2024 9:35 AM CDT 5 mg atorvastatin (LIPITOR) tablet 40 mg 40 mg, Oral, Daily, First dose on Sat06/07/24 at 0900, For 9 doses Given 06/15/2024 8:28 AM CDT 40 mg Given 06/14/2024 8:07 AM CDT 40 mg Given 06/13/2024 8:25 AM CDT 40 mg atorvastatin (LIPITOR) tablet 40 mg 40 mg, Oral, Daily, First dose (after last reorder) on Sat06/16/24 at 0900, For 5 days Given 06/17/2024 8:14 AM CDT 40 mg Given 06/16/2024 9:35 AM CDT 40 mg benzonatate (TESSALON) capsule 100 mg 100 mg, Oral, 3 times daily PRN, cough, Starting on Sat06/08/24 at 0140, For 10 days, Do not crush or chew. carvedilol (COREG) tablet 12.5 mg 12.5 mg, Oral, 2 times daily with meals, First dose on Sat06/06/24 at 1800, For 5 days Given 06/09/2024 8:29 AM CDT 12.5 mg Given 06/08/2024 6:03 PM CDT 12.5 mg Given 06/08/2024 8:24 AM CDT 12.5 mg carvedilol (COREG) tablet 25 mg 25 mg, Oral, 2 times daily with meals, First dose (after last modification) on Sat06/09/24 at 1800, For 6 doses Given 06/12/2024 9:06 AM CDT 25 mg Given 06/11/2024 6:30 PM CDT 25 mg Given 06/11/2024 7:42 AM CDT 25 mg carvedilol (COREG) tablet 25 mg 25 mg, Oral, 2 times daily with meals, First dose on Sat06/14/24 at 1800, For 10 days Given 06/17/2024 7:36 AM CDT 25 mg Given 06/16/2024 5:42 PM CDT 25 mg Given 06/16/2024 7:32 AM CDT 25 mg cefepime (MAXIPIME) 1 g in sodium chloride 0.9 % 50 mL [id number] Plus 1 g, Intravenous, at 100 mL/hr, Administer over 30 Minutes, Every 12 hours, First dose (after last modification) on 06/06/24 at 1530, For 9 doses, Indication: Osteomyelitis New Bag 06/08/2024 3:33 AM CDT 1 g 100 mL/hr New Bag 06/07/2024 4:16 PM CDT 1 g 100 mL/hr New Bag 06/07/2024 3:41 AM CDT 1 g 100 mL/hr cefepime (MAXIPIME) 2 g in sodium chloride 0.9 % 50 mL [id number] Plus 2 g, Intravenous, at 100 mL/hr, Administer over 30 Minutes, Every 12 hours, First dose (after last modification) on 06/08/24 at 1600, For 5 doses, Indication: Osteomyelitis New Bag 06/09/2024 4:31 AM CDT 2 g 100 mL/hr New Bag 06/08/2024 4:14 PM CDT 2 g 100 mL/hr dextrose (GLUTOSE) oral gel 40% (1 Tube = net wt. 37.5 gm containing 15 gm dextrose) 1 Tube, Oral, As needed, low blood sugar, severe hypoglycemia, Starting on 06/06/24 at 1531, For 479 hours, If patient is conscious/alert (may be disoriented), give for blood glucose value less than 45 mg/dL. Alternative to juice. Do not give if patient has received juice. Repeat as ordered until blood glucose above 70 mg/dL. dextrose (GLUTOSE) oral gel 40% (1 Tube = net wt. 37.5 gm containing 15 gm dextrose) 1 Tube, Oral, As needed, low blood sugar, mild hypoglycemia, Starting on 06/06/24 at 1531, For 479 hours, If patient is alert and symptomatic, give for blood glucose 60-70 mg/dL. Alternative to juice, do not give it patient has received juice. Repeat as ordered until blood glucose above 70 mg/dL. dextrose 10 % infusion 250 mL 250 mL, Intravenous, at 1,000 mL/hr, Every 15 min PRN, severe hypoglycemia, Starting on 06/06/24 at 1531, For 479 hours, If NPO, give for blood glucose value less than 45 mg/dL if patient is conscious/alert (may be disoriented). Repeat as ordered until blood glucose above 70 mg/dL. dextrose 10 % infusion 250 mL 250 mL, Intravenous, at 1,000 mL/hr, Every 15 min PRN, severe hypoglycemia, Starting on Fatou 06/11/24 at 0625, For 349 hours, Give for blood glucose value less than 45 mg/dL if patient unconscious or not alert. Repeat as ordered until blood glucose above 70 mg/dL. dextrose 50 % solution 25 mL 25 mL, Intravenous, As needed, low blood sugar, severe hypoglycemia, Starting on 06/06/24 at 1531, For 479 hours, If patient NPO but conscious/alert (may be disoriented), give for blood glucose value less than 45 mg/dL. Repeat as ordered until blood glucose above 70 mg/dL. dextrose 50 % solution 25 mL 25 mL, Intravenous, As needed, low blood sugar, severe hypoglycemia, Starting on Fatou 06/11/24 at 0625, For 349 hours, If patient UNCONSCIOUS or NOT ALERT, give for blood glucose value less than 70 mg/dL. Repeat as ordered until blood glucose above 70 mg/dL. dilTIAZem (CARDIZEM) immediate release tablet 30 mg 30 mg, Oral, Every 6 hours, First dose on Sat06/09/24 at 1900, For 10 days, Unless administering down a feeding tube, do not split, crush, or chew tablets. Given 06/10/2024 8:41 AM CDT 30 mg Given 06/10/2024 2:40 AM CDT 30 mg Given 06/09/2024 6:28 PM CDT 30 mg dilTIAZem (CARDIZEM) immediate release tablet 60 mg 60 mg, Oral, Every 6 hours, First dose (after last modification) on Sat06/10/24 at 1500, For 37 doses, Unless administering down a feeding tube, do not split, crush, or chew tablets., On hold since Sat06/14/2024 at 1524 until manually unheld Given 06/14/2024 2:24 PM CDT 60 mg Given 06/14/2024 8:07 AM CDT 60 mg Given 06/14/2024 2:28 AM CDT 60 mg dilTIAZem (CARDIZEM) injection 10 mg 10 mg, Intravenous, Once, On Sat06/09/24 at 1030, For 1 dose Given 06/09/2024 10:29 AM CDT 10 mg dilTIAZem (CARDIZEM) injection 10 mg 10 mg, Intravenous, Every 4 hours PRN, sustained HR > 110, Starting on Sat06/09/24 at 1134, For 5 days Given 06/09/2024 3:48 PM CDT 10 mg diphenhydrAMINE (BENADRYL) tablet 25 mg 25 mg, Oral, Every 6 hours PRN, itching, Starting on Sat06/10/24 at 1408, For 10 days Given 06/10/2024 4:38 PM CDT 25 mg enoxaparin (LOVENOX) syringe 40 mg 40 mg, Subcutaneous, Every 24 hours scheduled, First dose on Sat06/07/24 at 0900, For 9 doses, Indications: Prophylaxis of Venous Thromboembolism Given 06/13/2024 8:31 AM CDT 40 mg Left Lower Abdomen Given 06/11/2024 8:09 AM CDT 40 mg Le ft Lower Abdomen Given 06/10/2024 8:42 AM CDT 40 mg Le ft Lower Abdomen enoxaparin (LOVENOX) syringe 40 mg 40 mg, Subcutaneous, Every 24 hours scheduled, First dose on Sat06/13/24 at 0900, For 5 days, Indications: Prophylaxis of Venous Thromboembolism Given 06/15/2024 8:28 AM CDT 40 mg Left Lower Abdomen Given 06/14/2024 8:06 AM CDT 40 mg Le ft Lower Abdomen Given 06/13/2024 8:26 AM CDT 40 mg Le ft Lower Abdomen ertapenem (INVanz) 1 g in sodium chloride 0.9 % 50 mL [id number] Plus 1 g, Intravenous, at 100 mL/hr, Administer over 30 Minutes, Every 24 hours, First dose on Sat06/09/24 at 1630, For 9 doses, Indication: Osteomyelitis New Bag 06/17/2024 12:07 PM CDT 1 g 100 mL/hr New Bag 06/16/2024 4:39 PM CDT 1 g 100 mL/hr New Bag 06/15/2024 4:17 PM CDT 1 g 100 mL/hr Glucagon HCl (rDNA) injection 1 mg 1 mg, Intramuscular, Every 15 min PRN, low blood sugar, severe hypoglycemia, Starting on Fatou 06/11/24 at 0625, For 349 hours, If no IV access, give for blood glucose value less than 45 mg/dL if patient unconscious or not alert. Caution: glucagon can cause nausea and vomiting. Roll patient on their side when administering to prevent aspiration. guaiFENesin (MUCINEX) 12 hr tablet 600 mg 600 mg, Oral, 2 times daily PRN, congestion, Starting on 06/07/24 at 2303, For 10 days, Administer with plenty of fluids to ensure proper action. Do not crush, chew, or split. Given 06/08/2024 1:36 AM CDT 600 mg guaiFENesin-codeine (ROBITUSSIN-AC) 100-10 MG/5ML liquid 5 mL 5 mL, Oral, Every 4 hours PRN, cough, Starting on 06/08/24 at 0139, For 10 days hydrocortisone 2.5 % ointment Topical, 2 times daily, First dose on 06/14/24 at 1030, For 10 days Given 06/17/2024 8:42 AM CDT 1 applicati on Given 06/16/2024 8:52 PM CDT Given 06/15/2024 9:05 PM CDT 1 application Back insulin glargine (LANTUS) inj pen 10 Units 10 Units, Subcutaneous, Nightly, First dose (after last modification) on 06/08/24 at 2100, For 8 doses, Target 0.1-0.5 units/kg based on patient's insulin sensitivity, long acting/total daily insulin ratio. Given 06/11/2024 10:05 PM CDT 10 Units Left Lower Abdomen Given 06/10/2024 9:46 PM CDT 10 Units Le ft Lower Abdomen Given 06/09/2024 11:26 PM CDT 10 Units R ight Upper Arm (Back) insulin glargine (LANTUS) inj pen 15 Units 15 Units, Subcutaneous, Nightly, First dose on 06/06/24 at 2100, For 10 days, Target 0.1-0.5 units/kg based on patient's insulin sensitivity, long acting/total daily insulin ratio. Given 06/07/2024 9:20 PM CDT 15 Units Left Upper Abdomen Given 06/06/2024 10:52 PM CDT 15 Units L eft Lower Abdomen insulin glargine (LANTUS) inj pen 15 Units 15 Units, Subcutaneous, Nightly, First dose (after last modification) on Sat06/12/24 at 2100, For 4 doses, Target 0.1-0.5 units/kg based on patient's insulin sensitivity, long acting/total daily insulin ratio. Given 06/13/2024 12:07 AM CDT 15 Units Left Lower Abdomen insulin glargine (LANTUS) inj pen 20 Units 20 Units, Subcutaneous, Nightly, First dose (after last modification) on Sat06/13/24 at 2100, For 5 doses, Target 0.1-0.5 units/kg based on patient's insulin sensitivity, long acting/total daily insulin ratio. Given 06/16/2024 10:06 PM CDT 20 Units Left Lower Abdomen Given 06/15/2024 11:23 PM CDT 20 Units R ight Lower Abdomen Given 06/14/2024 9:25 PM CDT 20 Units Le ft Upper Abdomen insulin lispro (HumaLOG) injection 1-10 Units 1-10 Units, Subcutaneous, 3 times daily with meals, First dose on Sat06/06/24 at 1800, For 45 doses, Glucose Level Humalog Dose (units) 140 -159 mg/dL 1 unit 160 -179 mg/dL 2 unit 180 -209 mg/dL 3 unit 210 -239 mg/dL 4 unit 240 -269 mg/dL 5 unit 270 -299 mg/dL 6 unit 300 -349 mg/dL 8 unit 350 - 399 mg/dL 9 unit Greater than 400 mg/dL 10 ask physician Please refer to Hyperglycemia Management within the Hospitalized Adult Patient protocol for ordering guidance and correction scales. Link provided. Given 06/17/2024 12:15 PM CDT 6 Units Left Lower Abdomen Given 06/17/2024 8:40 AM CDT 1 Units Le ft Lower Abdomen Given 06/16/2024 5:47 PM CDT 6 Units Le ft Lower Abdomen insulin lispro (HumaLOG) injection 1-13 Units 1-13 Units, Subcutaneous, 4 times daily with meals and nightly, First dose on 06/06/24 at 1800, For 10 days, Give 1 unit/10 g carbs Carbs Eaten (g) Humalog Dose (units) 6-14 1 15-24 2 25-34 3 35-44 4 45-54 5 55-64 6 65-74 7 75-84 8 85-94 9 95-104 10 105-114 11 115-124 12 125-134 13 Greater than 134 Ask MD Do not give if pre-prandial glucose is less than 70 mg/dL. Follow Hypoglycemic protocol. Contact clinician for new carb counting insulin orders. Please refer to Hyperglycemia Management within the Hospitalized Adult Patient protocol for ordering guidance and correction scales. Link provided. Given 06/11/2024 6:38 PM CDT 4 Units Left Lower Abdomen Given 06/11/2024 12:33 PM CDT 5 Units L eft Upper Arm (Back) Given 06/11/2024 8:12 AM CDT 3 Units Le ft Lower Abdomen insulin lispro (HumaLOG) injection 1-26 Units 1-26 Units, Subcutaneous, 4 times daily with meals and nightly, First dose on Sat06/12/24 at 0930, For 10 days, Give 1 unit/5g carbs Carbs Eaten (g) Humalog Dose (units) 3-7 1 8-12 2 13-17 3, 18-22 4 23-27 5 28-32 6 33-37 7 38-42 8 43-47 9 48-52 10 53-57 11 58-62 12 63-67 13 68-72 14 73-77 15 78-82 16 83-87 17 88-92 18 93-97 19 98-102 20 103-107 21 108-112 22 113-117 23 118-122 24 123-127 25 128-132 26 Greater than 132 Ask MD Do not give if pre-prandial glucose is less than 70 mg/dL. Follow Hypoglycemic protocol. Contact clinician for new carb counting insulin orders. Please refer to Hyperglycemia Management within the Hospitalized Adult Patient protocol for ordering guidance and correction scales. Link provided. Given 06/17/2024 12:15 PM CDT 13 Units Left Lower Abdomen Given 06/17/2024 8:41 AM CDT 6 Units Le ft Lower Abdomen Given 06/16/2024 5:56 PM CDT 8 Units Le ft Lower Abdomen insulin lispro (HumaLOG) injection 1-8 Units 1-8 Units, Subcutaneous, Nightly, First dose on Sat06/06/24 at 2100, For 19 doses, HS Correction Dosing Glucose Level Humalog Dose (units) 180-209 mg/dL 2 units 210-239 mg/dL 3 units 240-269 mg/dL 4 units 270-299 mg/dL 5 units 300-349 mg/dL 6 units 350-400 mg/dL 7 units Greater than 400 mg/dL 8 units and notify clinician Please refer to Hyperglycemia Management within the Hospitalized Adult Patient protocol for ordering guidance and correction scales. Link provided. Given 06/15/2024 11:23 PM CDT 3 Units Right Lower Abdomen Given 06/14/2024 9:25 PM CDT 7 Units Le ft Lower Abdomen Given 06/13/2024 9:00 PM CDT 4 Units Le ft Lower Abdomen lactated Ringer's infusion 75 mL/hr, Intravenous, Continuous, Starting on Sat06/08/24 at 1230, For 5 days New Bag 06/09/2024 6:03 PM CDT 75 mL/hr 75 mL/hr New Bag 06/08/2024 2:15 PM CDT New Bag 06/08/2024 1:28 PM CDT lactated Ringer's infusion 100 mL/hr, Intravenous, Continuous, Starting on Sat06/08/24 at 1630, For 5 days New Bag 06/09/2024 2:51 AM CDT 100 mL/hr 100 mL/hr New Bag 06/08/2024 5:23 PM CDT 100 mL/hr 100 mL/hr lactated Ringer's infusion 100 mL/hr, Intravenous, Continuous, Starting on Sat06/12/24 at 1830, For 5 days New Bag 06/13/2024 11:51 PM CDT 100 mL/hr 10 0 mL/hr New Bag 06/13/2024 2:13 PM CDT 100 mL/hr 100 mL/hr Rate/Dose Verify 06/13/2024 7:55 AM CDT 100 mL/hr 100 mL/ hr metroNIDAZOLE (FLAGYL) IVPB 500 mg 500 mg, Intravenous, Administer over 60 Minutes, Every 8 hours, First dose on Sat06/06/24 at 1500, For 5 days, premix bag, Reason for therapy: Bacterial Infection Documented, Type of Therapy: New Therapy, Indication: Osteomyelitis New Bag 06/09/2024 6:36 AM CDT 500 mg New Bag 06/08/2024 11:04 PM CDT 500 mg New Bag 06/08/2024 7:12 AM CDT 500 mg metroNIDAZOLE (FLAGYL) tablet 500 mg 500 mg, Oral, 3 times daily, First dose on Sat06/09/24 at 1400, For 5 days Given 06/09/2024 1:58 PM CDT 500 mg morphine injection 2 mg 2 mg, Intravenous, Every 1 hour PRN, pain, Starting on 06/06/24 at 1021, For 5 hours Given 06/06/2024 12:34 PM CDT 2 mg Given 06/06/2024 10:27 AM CDT 2 mg morphine injection 2 mg 2 mg, Intravenous, Every 4 hours PRN, Pain 6-10, Starting on 06/06/24 at 1336, For 5 days, 2nd Line. If inadequate response within 60 minutes, proceed to next-line agent for same PRN reason or contact provider if no further options ordered. Given 06/08/2024 10:47 AM CDT 2 mg ondansetron (ZOFRAN) injection 4 mg 4 mg, Intravenous, Every 6 hours PRN, nausea, vomiting, Starting on 06/06/24 at 1336, For 5 days Given 06/09/2024 6:28 PM CDT 4 mg oxyCODONE (ROXICODONE) 5 MG/5ML solution 10 mg 10 mg, Oral, Every 4 hours PRN, Pain 6-10, For pain rating 6-10, Starting on Sat06/08/24 at 1539, For 10 days, Give oral liquid if patient prefers or per feeding tube if present. 1st Line. If inadequate response within 60 minutes, proceed to next-line agent for same PRN reason or contact provider if no further options ordered. oxyCODONE (ROXICODONE) 5 MG/5ML solution 5 mg 5 mg, Oral, Every 4 hours PRN, Pain 1-5, For pain rating 1-5, Starting on Sat06/08/24 at 1539, For 10 days, Give oral liquid if patient prefers or per feeding tube if present. 3rd Line. If inadequate response within 60 minutes, proceed to next-line agent for same PRN reason or contact provider if no further options ordered. oxyCODONE (ROXICODONE) immediate release tablet 10 mg 10 mg, Oral, Every 4 hours PRN, Pain 6-10, For pain rating 6-10, Starting on Sat06/08/24 at 1539, For 10 days, 1st Line. If inadequate response within 60 minutes, proceed to next-line agent for same PRN reason or contact provider if no further options ordered. Given 06/17/2024 8:19 AM CDT 10 mg Given 06/16/2024 10:14 PM CDT 10 mg Given 06/16/2024 12:56 PM CDT 10 mg oxyCODONE (ROXICODONE) immediate release tablet 5 mg 5 mg, Oral, Every 4 hours PRN, Pain 6-10, Starting on 06/06/24 at 1336, For 10 days, 1st Line. If inadequate response within 60 minutes, proceed to next-line agent for same PRN reason or contact provider if no further options ordered. Given 06/08/2024 8:24 AM CDT 5 mg Self Administered Via Pump 06/07/2024 9:18 PM CDT 5 mg Given 06/07/2024 8:18 AM CDT 5 mg oxyCODONE (ROXICODONE) immediate release tablet 5 mg 5 mg, Oral, Every 4 hours PRN, Pain 1-5, For pain rating 1-5, Starting on 06/08/24 at 1539, For 10 days, 3rd Line. If inadequate response within 60 minutes, proceed to next-line agent for same PRN reason or contact provider if no further options ordered. Given 06/16/2024 7:46 AM CDT 5 mg Given 06/14/2024 5:48 PM CDT 5 mg Given 06/11/2024 9:18 PM CDT 5 mg piperacillin-tazobactam (ZOSYN) IVPB 4.5 g 4.5 g, Intravenous, at 200 mL/hr, Administer over 30 Minutes, Once, On 06/06/24 at 1000, For 1 dose, This dose will be followed by the next dose in 4 hours, after that the frequency will be every 8 hours. premix bag, Reason for therapy: Bacterial Infection Suspected, Type of Therapy: New Therapy, Indication: Sepsis New Bag 06/06/2024 10:01 AM CDT 4.5 g 200 mL/hr sodium chloride 0.9 % infusion 1,000 mL 1,000 mL, Intravenous, Once, On 06/06/24 at 1030, For 1 dose New Bag 06/06/2024 10:33 AM CDT 1,000 mL sodium chloride 0.9 % infusion 125 mL/hr, Intravenous, Continuous, Starting on Sat06/06/24 at 1430, For 5 days Rate/Dose Verify 06/09/2024 1:16 AM CDT 125 mL/hr 125 mL/hr New Bag 06/08/2024 2:30 AM CDT 125 mL/hr 125 mL/hr New Bag 06/07/2024 1:31 PM CDT 125 mL/hr 125 mL/hr sodium chloride 0.9 % infusion 75 mL/hr, Intravenous, Continuous, Starting on Sat06/12/24 at 1100, For 5 days Restarted 06/12/2024 4:42 PM CDT New 06/12/2024 10:24 AM CDT 75 mL/hr 75 mL/hr traMADol (ULTRAM) tablet 50 mg 50 mg, Oral, Every 6 hours PRN, Pain 1-5, Starting on 06/06/24 at 1336, For 11 days 4 hours, 2nd Line. If inadequate response within 60 minutes, proceed to next-line agent for same PRN reason or contact provider if no further options ordered. Given 06/14/2024 8:07 AM CDT 50 mg Given 06/13/2024 10:48 AM CDT 50 mg Given 06/10/2024 7:51 PM CDT 50 mg vancomycin IVPB 1250 mg in 250 mL 1,250 mg, Intravenous, at 166.7 mL/hr, Administer over 90 Minutes, Every 24 hours, First dose on Sat06/07/24 at 0800, For 5 days, Max of 2000 mg of Vancomycin for initial dose This should NOT be administered to female patients between the ages of 8 and 50 due to the Black Box Warning about potential defects., Indication: Sepsis New 06/09/2024 8:30 AM CDT 1,250 mg 166.7 mL/hr New 06/08/2024 8:37 AM CDT 1,250 mg 166.7 mL/hr 06/07/2024 8:11 AM CDT 1,250 mg 166.7 mL/hr vancomycin IVPB 1750 mg in 350 mL 1,750 mg (rounded from 1,792 mg = 20 mg/kg ? 89.6 kg), Intravenous, at 175 mL/hr, Administer over 120 Minutes, Once, On Sat06/06/24 at 0935, For 1 dose, Max of 2000 mg of Vancomycin for initial dose This should NOT be administered to female patients between the ages of 8 and 50 due to the Black Box Warning about potential defects., Indication: Cellulitis New Bag 06/06/2024 10:40 AM CDT 1,750 m g 175 mL/hr documented in this encounter Active and Recently Administered Medications Times are shown in CDT. Scheduled Medication Order 06/15/2024 06/16/2024 06/17/2024 apixaban (ELIQUIS) tablet 5 mg 5 mg, Oral, 2 times daily, First dose on Sat06/15/24 at 2100, For 10 days 2103 (Given - Provider: RAJESH Vidal) 0935 (Given - Provider: Rachael Anna RN)2051 (Given - Provider: Emiliana Chaparro RN) 0814 (Given - Provider: Domi Mcdonald, SHARI) atorvastatin (LIPITOR) tablet 40 mg () 40 mg, Oral, Daily, First dose on Sat06/07/24 at 0900, For 9 doses 0828 (Given - Provider: RAJESH Dee) atorvastatin (LIPITOR) tablet 40 mg 40 mg, Oral, Daily, First dose (after last reorder) on Sat06/16/24 at 0900, For 5 days 0935 (Given - Provider: Rachael Anna RN) 0814 (Given - Provider: Domi Mcdonald, SHARI) carvedilol (COREG) tablet 25 mg 25 mg, Oral, 2 times daily with meals, First dose on Sat06/14/24 at 1800, For 10 days 0718 (Given - Provider: RAJESH Dee)1803 (Given - Provider: RAJESH Vidal) 0732 (Given - Provider: Rachael Anna, SHARI)1742 (Given - Provider: Alice Rogers RN) 0736 (Given - Provider: Domi Mcdonald, SHARI) dilTIAZem (CARDIZEM) immediate release tablet 60 mg 60 mg, Oral, Every 6 hours, First dose (after last modification) on Sat06/10/24 at 1500, For 37 doses, Unless administering down a feeding tube, do not split, crush, or chew tablets., On hold since 06/14/2024 at 1524 until manually unheld 0300 (Dose Auto Held - Provider: Pina Bonilla MD)0900 (Dose Auto Held - Provider: Pina Bonilla MD)1500 (Dose Auto Held - Provider: Pina Bonilla MD)2100 (Dose Auto Held - Provider: Pina Bonilla MD) 0300 (Dose Auto Held - Provider: Pina Bonilla MD)0900 (Dose Auto Held - Provider: Pina Bonilla MD)1500 (Dose Auto Held - Provider: Pina Bonilla MD)2100 (Dose Auto Held - Provider: Pina Bonilla MD) 0300 (Dose Auto Held - Provider: Pina Bonilla MD)0900 (Dose Auto Held - Provider: Pina Bonilla MD)165 (Unheld by provider - Provider: Automatic Discharge Provider) enoxaparin (LOVENOX) syringe 40 mg (CANCELED) 40 mg, Subcutaneous, Every 24 hours scheduled, First dose on 06/13/24 at 0900, For 5 days, Indications: Prophylaxis of Venous Thromboembolism 0828 (Given - Provider: RAJESH Dee) ertapenem (INVanz) 1 g in sodium chloride 0.9 % 50 mL ULLJ-Alxg-Oaw Plus (COMPLETED) 1 g, Intravenous, at 100 mL/hr, Administer over 30 Minutes, Every 24 hours, First dose on Sat06/09/24 at 1630, For 9 doses, Indication: Osteomyelitis 1617 (New Bag - Provider: RAJESH Vidal) 1639 (New Bag - Provider: Alice Rogers, SHARI) 1207 (New Bag - Provider: Domi Mcdonald, SHARI) hydrocortisone 2.5 % ointment Topical, 2 times daily, First dose on 06/14/24 at 1030, For 10 days 1008 (Given - Provider: RAJESH Dee)210 (Given - Provider: RAJESH Vidal) 101 (Not Given - Provider: Rachael Anna RN - Reason: Patient/family refused)2051 (Given - Provider: Emiliana Chaparro, RN) 0842 (Given - Provider: Domi Mcdonald, RN) insulin glargine (LANTUS) inj pen 20 Units 20 Units, Subcutaneous, Nightly, First dose (after last modification) on 06/13/24 at 2100, For 5 doses, Target 0.1-0.5 units/kg based on patient's insulin sensitivity, long acting/total daily insulin ratio. 2323 (Given - Provider: RAJESH Vidal) 2206 (Given - Provider: Emiliana Chaparro, RN) insulin lispro (HumaLOG) injection 1-10 Units 1-10 Units, Subcutaneous, 3 times daily with meals, First dose on 06/06/24 at 1800, For 45 doses, Glucose Level Humalog Dose (units) 140 -159 mg/dL 1 unit 160 -179 mg/dL 2 unit 180 -209 mg/dL 3 unit 210 -239 mg/dL 4 unit 240 -269 mg/dL 5 unit 270 -299 mg/dL 6 unit 300 -349 mg/dL 8 unit 350 - 399 mg/dL 9 unit Greater than 400 mg/dL 10 ask physician Please refer to Hyperglycemia Management within the Hospitalized Adult Patient protocol for ordering guidance and correction scales. Link provided. 0822 (Not Given - Provider: RAJESH Dee - Reason: Contraindicated)1253 (Given - Provider: RAJESH Dee)1919 (Not Given - Provider: RAJESH Vidal - Reason: Order parameters not met) 1019 (Not Given - Provider: Rachael Anna RN - Reason: See Provider Order - Comment: BG 121)1321 (Given - Provider: Rachael Anna, RN)1747 (Given - Provider: Alice Rogers, SHARI) 0840 (Given - Provider: Domi Mcdonald, SHARI)1215 (Given - Provider: Domi Mcdonald, RN) insulin lispro (HumaLOG) injection 1-26 Units 1-26 Units, Subcutaneous, 4 times daily with meals and nightly, First dose on Sat06/12/24 at 0930, For 10 days, Give 1 unit/5g carbs Carbs Eaten (g) Humalog Dose (units) 3-7 1 8-12 2 13-17 3, 18-22 4 23-27 5 28-32 6 33-37 7 38-42 8 43-47 9 48-52 10 53-57 11 58-62 12 63-67 13 68-72 14 73-77 15 78-82 16 83-87 17 88-92 18 93-97 19 98-102 20 103-107 21 108-112 22 113-117 23 118-122 24 123-127 25 128-132 26 Greater than 132 Ask MD Do not give if pre-prandial glucose is less than 70 mg/dL. Follow Hypoglycemic protocol. Contact clinician for new carb counting insulin orders. Please refer to Hyperglycemia Management within the Hospitalized Adult Patient protocol for ordering guidance and correction scales. Link provided. 8170 (Given - Provider: RAJESH Dee)1251 (Given - Provider: RAJESH Dee - Comment: [phone] (Given - Provider: RAJESH Vidal)2326 (Not Given - Provider: RAJESH Vidal - Reason: Order parameters not met) 1022 (Not Given - Provider: Alicia Warner RN - Reason: Medication not available - Comment: insulin pen did not have enough units for coverage)1325 (Given - Provider: Rachael Anna, RN)1756 (Given - Provider: Alice Rogers, SHARI)2205 (Not Given - Provider: Emiliana Chaparro RN - Reason: Order parameters not met) 0841 (Given - Provider: Domi Mcdonald, SHARI)1215 (Given - Provider: Domi Mcdonald, RN) insulin lispro (HumaLOG) injection 1-8 Units 1-8 Units, Subcutaneous, Nightly, First dose on 06/06/24 at 2100, For 19 doses, HS Correction Dosing Glucose Level Humalog Dose (units) 180-209 mg/dL 2 units 210-239 mg/dL 3 units 240-269 mg/dL 4 units 270-299 mg/dL 5 units 300-349 mg/dL 6 units 350-400 mg/dL 7 units Greater than 400 mg/dL 8 units and notify clinician Please refer to Hyperglycemia Management within the Hospitalized Adult Patient protocol for ordering guidance and correction scales. Link provided. 9570 (Given - Provider: KASEY VidalN) 0895 (Not Given - Provider: Emiliana Chaparro, SHARI - Reason: Order parameters not met) Continuous Medication Order 06/15/2024 06/16/2024 06/17/2024 sodium chloride 0.9 % infusion 75 mL/hr, Intravenous, Continuous, Starting on Sat06/12/24 at 1100, For 5 days PRN Medication Order 06/15/2024 06/16/2024 06/17/2024 acetaminophen (TYLENOL) tablet 1,000 mg 1,000 mg, Oral, Every 6 hours PRN, Pain 1-5, fever, Starting on 06/06/24 at 1336, For 11 days 4 hours, 1st line 0814 (Given - Provider: Domi Mcdonald, SHARI) benzonatate (TESSALON) capsule 100 mg 100 mg, Oral, 3 times daily PRN, cough, Starting on 06/08/24 at 0140, For 10 days, Do not crush or chew. dextrose (GLUTOSE) oral gel 40% (1 Tube = net wt. 37.5 gm containing 15 gm dextrose)(Linked Group 1) 1 Tube, Oral, As needed, low blood sugar, severe hypoglycemia, Starting on 06/06/24 at 1531, For 479 hours, If patient is conscious/alert (may be disoriented), give for blood glucose value less than 45 mg/dL. Alternative to juice. Do not give if patient has received juice. Repeat as ordered until blood glucose above 70 mg/dL. dextrose (GLUTOSE) oral gel 40% (1 Tube = net wt. 37.5 gm containing 15 gm dextrose) 1 Tube, Oral, As needed, low blood sugar, mild hypoglycemia, Starting on 06/06/24 at 1531, For 479 hours, If patient is alert and symptomatic, give for blood glucose 60-70 mg/dL. Alternative to juice, do not give it patient has received juice. Repeat as ordered until blood glucose above 70 mg/dL. dextrose 10 % infusion 250 mL(Linked Group 1) 250 mL, Intravenous, at 1,000 mL/hr, Every 15 min PRN, severe hypoglycemia, Starting on 8/17/24 at 1531, For 479 hours, If NPO, give for blood glucose value less than 45 mg/dL if patient is conscious/alert (may be disoriented). Repeat as ordered until blood glucose above 70 mg/dL. dextrose 10 % infusion 250 mL(Linked Group 2) 250 mL, Intravenous, at 1,000 mL/hr, Every 15 min PRN, severe hypoglycemia, Starting on Fatou 06/11/24 at 0625, For 349 hours, Give for blood glucose value less than 45 mg/dL if patient unconscious or not alert. Repeat as ordered until blood glucose above 70 mg/dL. dextrose 50 % solution 25 mL(Linked Group 1) 25 mL, Intravenous, As needed, low blood sugar, severe hypoglycemia, Starting on 06/06/24 at 1531, For 479 hours, If patient NPO but conscious/alert (may be disoriented), give for blood glucose value less than 45 mg/dL. Repeat as ordered until blood glucose above 70 mg/dL. dextrose 50 % solution 25 mL(Linked Group 2) 25 mL, Intravenous, As needed, low blood sugar, severe hypoglycemia, Starting on Fatou 06/11/24 at 0625, For 349 hours, If patient UNCONSCIOUS or NOT ALERT, give for blood glucose value less than 70 mg/dL. Repeat as ordered until blood glucose above 70 mg/dL. diphenhydrAMINE (BENADRYL) tablet 25 mg 25 mg, Oral, Every 6 hours PRN, itching, Starting on Sat06/10/24 at 1408, For 10 days Glucagon HCl (rDNA) injection 1 mg(Linked Group 2) 1 mg, Intramuscular, Every 15 min PRN, low blood sugar, severe hypoglycemia, Starting on Fatou 06/11/24 at 0625, For 349 hours, If no IV access, give for blood glucose value less than 45 mg/dL if patient unconscious or not alert. Caution: glucagon can cause nausea and vomiting. Roll patient on their side when administering to prevent aspiration. guaiFENesin (MUCINEX) 12 hr tablet 600 mg 600 mg, Oral, 2 times daily PRN, congestion, Starting on 06/07/24 at 2303, For 10 days, Administer with plenty of fluids to ensure proper action. Do not crush, chew, or split. guaiFENesin-codeine (ROBITUSSIN-AC) 100-10 MG/5ML liquid 5 mL 5 mL, Oral, Every 4 hours PRN, cough, Starting on Sat06/08/24 at 0139, For 10 days oxyCODONE (ROXICODONE) 5 MG/5ML solution 10 mg(Linked Group 3) 10 mg, Oral, Every 4 hours PRN, Pain 6-10, For pain rating 6-10, Starting on Sat06/08/24 at 1539, For 10 days, Give oral liquid if patient prefers or per feeding tube if present. 1st Line. If inadequate response within 60 minutes, proceed to next-line agent for same PRN reason or contact provider if no further options ordered. 1013 (See Alternative - Provider: RAJESH Dee)2105 (See Alternative - Provider: RAJESH Vidal) 1256 (See Alternative - Provider: Rachael Anna, RN)2214 (See Alternative - Provider: Emiliana Chaparro, SHARI) 0819 (See Alternative - Provider: Domi Mcdonald RN) oxyCODONE (ROXICODONE) 5 MG/5ML solution 5 mg(Linked Group 4) 5 mg, Oral, Every 4 hours PRN, Pain 1-5, For pain rating 1-5, Starting on Sat06/08/24 at 1539, For 10 days, Give oral liquid if patient prefers or per feeding tube if present. 3rd Line. If inadequate response within 60 minutes, proceed to next-line agent for same PRN reason or contact provider if no further options ordered. 0746 (See Alternative - Provider: Rachael Anna, SHARI) oxyCODONE (ROXICODONE) immediate release tablet 10 mg(Linked Group 3) 10 mg, Oral, Every 4 hours PRN, Pain 6-10, For pain rating 6-10, Starting on Sat06/08/24 at 1539, For 10 days, 1st Line. If inadequate response within 60 minutes, proceed to next-line agent for same PRN reason or contact provider if no further options ordered. 1013 (Given - Provider: RAJESH Dee)2105 (Given - Provider: RAJESH Vidal) 1256 (Given - Provider: Rachael Anna, SHARI)2214 (Given - Provider: Emiliana Chaparro, RN) 0819 (Given - Provider: Domi Mcdonald, SHARI) oxyCODONE (ROXICODONE) immediate release tablet 5 mg(Linked Group 4) 5 mg, Oral, Every 4 hours PRN, Pain 1-5, For pain rating 1-5, Starting on 06/08/24 at 1539, For 10 days, 3rd Line. If inadequate response within 60 minutes, proceed to next-line agent for same PRN reason or contact provider if no further options ordered. 0746 (Given - Provider: Rachael Anna, RN) traMADol (ULTRAM) tablet 50 mg 50 mg, Oral, Every 6 hours PRN, Pain 1-5, Starting on 06/06/24 at 1336, For 11 days 4 hours, 2nd Line. If inadequate response within 60 minutes, proceed to next-line agent for same PRN reason or contact provider if no further options ordered. Linked Groups Order Group 1: dextrose (GLUTOSE) oral gel 40% (1 Tube = net wt. 37.5 gm containing 15 gm dextrose)Jump to med 1 Tube, Oral, As needed, low blood sugar, severe hypoglycemia, Starting on 06/06/24 at 1531, For 479 hours, If patient is conscious/alert (may be disoriented), give for blood glucose value less than 45 mg/dL. Alternative to juice. Do not give if patient has received juice. Repeat as ordered until blood glucose above 70 mg/dL. Or dextrose 50 % solution 25 mLJump to med 25 mL, Intravenous, As needed, low blood sugar, severe hypoglycemia, Starting on 06/06/24 at 1531, For 479 hours, If patient NPO but conscious/alert (may be disoriented), give for blood glucose value less than 45 mg/dL. Repeat as ordered until blood glucose above 70 mg/dL. Or dextrose 10 % infusion 250 mLJump to med 250 mL, Intravenous, at 1,000 mL/hr, Every 15 min PRN, severe hypoglycemia, Starting on 06/06/24 at 1531, For 479 hours, If NPO, give for blood glucose value less than 45 mg/dL if patient is conscious/alert (may be disoriented). Repeat as ordered until blood glucose above 70 mg/dL. Group 2: dextrose 50 % solution 25 mLJump to med 25 mL, Intravenous, As needed, low blood sugar, severe hypoglycemia, Starting on Fatou 06/11/24 at 0625, For 349 hours, If patient UNCONSCIOUS or NOT ALERT, give for blood glucose value less than 70 mg/dL. Repeat as ordered until blood glucose above 70 mg/dL. Or dextrose 10 % infusion 250 mLJump to med 250 mL, Intravenous, at 1,000 mL/hr, Every 15 min PRN, severe hypoglycemia, Starting on Fatou 06/11/24 at 0625, For 349 hours, Give for blood glucose value less than 45 mg/dL if patient unconscious or not alert. Repeat as ordered until blood glucose above 70 mg/dL. Or Glucagon HCl (rDNA) injection 1 mgJump to med 1 mg, Intramuscular, Every 15 min PRN, low blood sugar, severe hypoglycemia, Starting on Fatou 06/11/24 at 0625, For 349 hours, If no IV access, give for blood glucose value less than 45 mg/dL if patient unconscious or not alert. Caution: glucagon can cause nausea and vomiting. Roll patient on their side when administering to prevent aspiration. Group 3: oxyCODONE (ROXICODONE) immediate release tablet 10 mgJump to med 10 mg, Oral, Every 4 hours PRN, Pain 6-10, For pain rating 6-10, Starting on Sat06/08/24 at 1539, For 10 days, 1st Line. If inadequate response within 60 minutes, proceed to next-line agent for same PRN reason or contact provider if no further options ordered. Or oxyCODONE (ROXICODONE) 5 MG/5ML solution 10 mgJump to med 10 mg, Oral, Every 4 hours PRN, Pain 6-10, For pain rating 6-10, Starting on Sat06/08/24 at 1539, For 10 days, Give oral liquid if patient prefers or per feeding tube if present. 1st Line. If inadequate response within 60 minutes, proceed to next- line agent for same PRN reason or contact provider if no further options ordered. Group 4: oxyCODONE (ROXICODONE) immediate release tablet 5 mgJump to med 5 mg, Oral, Every 4 hours PRN, Pain 1-5, For pain rating 1-5, Starting on Sat06/08/24 at 1539, For 10 days, 3rd Line. If inadequate response within 60 minutes, proceed to next-line agent for same PRN reason or contact provider if no further options ordered. Or oxyCODONE (ROXICODONE) 5 MG/5ML solution 5 mgJump to med 5 mg, Oral, Every 4 hours PRN, Pain 1-5, For pain rating 1-5, Starting on 06/08/24 at 1539, For 10 days, Give oral liquid if patient prefers or per feeding tube if present. 3rd Line. If inadequate response within 60 minutes, proceed to next- line agent for same PRN reason or contact provider if no further options ordered. documented in this encounter Additional Health Concerns Infection Onset Date Last Indicated Resolved Time COVID-19 Rule Out 06/06/2024 06/06/2024 06/06/2024 10:34 AM CDT MSSA 06/06/2024 06/12/2024 07/13/2024 9:58 AM CDT documented as of this encounter Care Teams Doctor Of Naturopathic Medicine Relationship Specialty Start Date End Date Thu Bhagat PA-C [address] [place] [phone] PCP - General 11/26/22 documented as of this encounter
--- OUTSIDE RECORDS SUMMARY | 2024-08-21 10:27 | XMS_ITS | Encounter Summary ---
Author Organization [facility] er Address [address] [place] [id number] Care Team Providers Care Administrative Secretary Name Role Phone Thu Bhagat PA-C Primary Care Provider [phone] Reason for Visit * Auth/Cert (Routine) Specialty Diagnoses / Procedures Referred By Contac t Referred To Contact Diagnoses Hyperglycemia Infection of right foot Acute renal failure, unspecified acute renal failure type (HCC) Procedures na Referral ID Status Reason Start Date Expiration Date Visits Re quested Visits Authorized [id number] 1 Encounter Details Date Type Department Care Team (Late st Contact Info) Description 06/08/2024 1:28 PM CDT Anesthesia Event [facility] Operating Room [address] [place] [phone] Lupe Connor MD [address] [place] [address] [phone] Tolu Stewart, [address] [place] [address] [phone] Anesthesia Record Procedure Summary Procedure Name Responsible Anesthesiologist Anesthesia Start Time Anesthesia Stop Time Right second toe amputation with wound debridement and incision and drainage. Possible transmetatarsal amputation with gastroc lengthening (Right) Lupe Connor MD 06/08/24 1328 06/08/24 1459 Events Date Time Event Comment 06/08/2024 0944 1328 An Start 1328 An Start Data 1329 In Room 1330 Anesthesia Ready 1406 An Tourn Inflated 300mmHg 1406 Proc Start 1447 Proc Fin 1448 An Tourn Deflated 1455 an stop data 1455 Out of Room 1459 Handoff to RN I completed my handoff to the receiving nurse during which we: 1. Identified the patient 2. Identified the responsible provider 3. Reviewed the pertinent medical history 4. Discussed the surgical course 5. Reviewed intra-op anesthesia management and issues during anesthesia 6. Set expectations for post-procedure period 7. Allowed opportunity for questions and acknowledgement of understanding. 1459 An Stop Meds Name Total fentaNYL 50 mcg/mL 25 mcg midazolam 2 MG/2ML 1 mg propofol 10 mg/mL 446.48 mg lidocaine PF 2 % 40 mg ondansetron 4 MG/2ML 4 mg Ketamine HCl 50 MG/5ML 20 mg lactated Ringer's infusion 750 mL * Agents Name N2O % * Blood No blood administrations on file. Lines, Drains, and Airways Type Details Placement Removal Incision/Surgical Site 06/08/24; N; Yes; Toe D2, second; Anterior, Right; Adaptic with betadine solution, 4x4s, afshin, CLEAR tape, 4 inch eveline wrap with velcro, 1/2 iodaform, aquacel 06/08/24 0000 by Aneesh Salcedo Wound Assessment 1; Right 2nd toe amputation site; 06/08/24; Incision; Right; Toe D2, second; Right 2nd Toe Amputation Site; Yes 06/08/24 0000 by Riya Stewart RN Peripheral IV Placement Date: 06/06/24; Placement Time: 0946; Catheter Size: 18 G; Orientation: Left; Location: Antecubital; Site Prep: Alcohol; Local Anesth: None; Technique: Anatomical landmarks; Inserted by: JLR; Insertion Attempts: 1; Patient Tolerance: Tolerated well; Removal Date: 06/09/24; Removal Time: 1600; Removal Reason: Drainage 06/06/24 0946 by Karley Tilley RN 06/09/24 1600 by Domi Mcdonald RN documented in this encounter Social History Tobacco Use Types Packs/Day [...] How often do you attend chur or shinto services? More than 4 times per year [...] Recorded Patient Health Questionnaire-2 Score 0 06/06/2024 [facility] [place] [facility] Occupat ional Health - Occupational Stress [...] on file documented as of this encounter OR Notes * Anesthesia Postprocedure Evaluation - Lupe Connor MD - 06/08/2024 3:31 PM CDT Patient: Francisco Javier Fung Procedure Summary Date: 06/08/24 Room / Location: [facility] [address] [place] [address] Operating Room Anesthesia Start: 1328 Anesthesia Stop: 1459 Procedure: Right second toe amputation with wound debridement and incision and drainage. Possible transmetatarsal amputation with gastroc lengthening (Right) Diagnosis: Infection of right foot Type 2 diabetes mellitus with diabetic neuropathy, without long-term current use of insulin (HCC) (Infection of right foot [L08.9]) (Type 2 diabetes mellitus with diabetic neuropathy, without long-term current use of insulin (HCC) [E11.40]) Surgeons: Megan Lopez DPM Responsible Provider: Lupe Connor MD Anesthesia Type: MAC ASA Status: 3 Anesthesia Type: MAC Last vitals Vitals Value Taken Time BP 125/91 06/08/24 1521 Temp 36.3 ??C (97.3 ??F) 06/08/24 1459 Pulse 95 06/08/24 1521 Resp 16 06/08/24 1522 SpO2 97 % 06/08/24 1521 Vitals shown include unfiled device data. There were no known notable events for this encounter. Anesthesia Post Evaluation Patient location during evaluation: PACU Patient participation: complete - patient participated Level of consciousness: awake and alert Pain score: 6 (Patient did not rate pain for me. Patient reported some pain in his foot, but did not rate pain. Patient had rated pain as a 6 out of 10 to nursing staff.) Pain management: adequate Airway patency: patent Cardiovascular status: acceptable and hemodynamically stable (Patient in known atrial fibrillation.Pulse in 90s to low teens which appears to be his baseline during his hospital stay.) Respiratory status: acceptable, spontaneous ventilation, unassisted, nonlabored ventilation and nasal cannula Hydration status: acceptable Comments: Patient seen in PACU. Patient awake and alert. Patient denies nausea. Patient blood glucose level at 73 mg/dL. His glucose level was at 80 mg/dL earlier today. Patient given cranberry juiceper his request. Patient did not rate pain for me. Patient reported some pain in his foot, but did not rate pain. Patient had rated pain as a 6 out of 10 to nursing staff. Patient in known atrial fibrillation. Pulse in 90s to low teens which appears to be his baseline during his hospital stay. Did not give metoprolol as after discussion with patient, metoprolol tanks his blood pressure and thiswas why his metoprolol was switched to coreg by the [place]. Patient hemodynamically stable with BP of 12 /. Patient asymptomatic from atrial fibrillation. Patient has his scheduled coreg dose written for Inter[employer]. Patient transferred to his room on the medical/surgical floor. Nausea and vomiting control satisfactory * Anesthesia Preprocedure Evaluation - Tolu Stewart, DO - 06/08/2024 8:08 AM CDT Images from the original note were not included. Anesthesia Adult ROS/MED Evaluation 69 y.o. 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 Possible transmetatarsal amputation with gastroc lengthening (Right) DELIA HTN CHF Per patient EF 28% in 2018, no echo since Walks 3mi a day Afib - Eliquis IDDM2 Lab Results Component Value Date HGBA1C 9.0 (H) 06/06/2024 IDA vs CKD Lab Results Component Value Date GLUCOSE 84 06/08/2024 CALCIUM 8.9 06/08/2024 NA 138 06/08/2024 K 3.9 06/08/2024 CO2 21 (L) 06/08/2024 CL 109 (H) 06/08/2024 BUN 36 (H) 06/08/2024 CREATININE 1.33 06/08/2024 CVA - 2018 No family or personal history of issues with anesthesia Greater than or equal to 4 METs exercise tolerance. NPO appropriate Clinical information reviewed: Tobacco Allergies Meds Med Hx Surg Hx Fam Hx Soc Hx Estimated body mass index is 26.07 kg/m?? as calculated from the following: Height as of this encounter: 1.854 m (6' 0.99). Weight as of this encounter: 89.6 kg (197 lb 8.5 oz). Physical Exam Airway Mallampati: III Cardiovascular Dental Pulmonary Abdominal Anesthesia Plan ASA 3 MAC (Risks [including, but not limited to , heart attack, seizure, stroke, kidney damage, nerve damage, bleeding, dental/soft tissue damage, sore throat, back pain, urinary retention, headache, emergence delirium, nausea, and vomiting], benefits, and alternatives of the anesthetic have been discussed with the patient and/or consenting parties. General anesthesia discussed as backup plan. All questions were answered. The patient and/or consenting libertarian verbalized understanding and wishes to proceed.) intravenous induction Postoperative administration of opioids is intended. Anesthetic plan and risks discussed with patient. Plan discussed with WIG DRESSER. Initial evaluation reviewed, no significant interval change. Re-evaluation prior to induction complete. documented in this encounter Plan of Treatment Upcoming Encounters Date Type Department Care Team (Late st Contact Info) Description 08/24/2024 8:30 AM RESEARCH NUTRITIONIST Office Visit [facility] Wound Care [facility] [address] [place] [phone] 08/24/2024 11:30 AM RESEARCH NUTRITIONIST Office Visit Podiatry [address], [place] [address] Angel Coombs, DPM [address] [place] [phone] 08/25/2024 8:30 AM RESEARCH NUTRITIONIST Office Visit [facility] Wound Care [address] [place] [phone] 08/26/2024 8:30 AM RESEARCH NUTRITIONIST Office Visit [facility] Wound Care [address] [place] [phone] 08/27/2024 8:30 AM RESEARCH NUTRITIONIST Office Visit [facility] Wound Care [address] [place] [phone] 08/27/2024 11:00 AM RESEARCH NUTRITIONIST Office Visit [facility] Wound Care [address] [place] [phone] Vilma Neves MD [address] [place] [phone] 08/28/2024 8:30 AM RESEARCH NUTRITIONIST Office Visit [facility] Wound Care [address] [place] [phone] 08/31/2024 8:30 AM RESEARCH NUTRITIONIST Office [facility] [address] [place] [phone] 09/01/2024 8:30 AM RESEARCH NUTRITIONIST Office [facility] [address] [place] [phone] 09/02/2024 8:30 AM RESEARCH NUTRITIONIST Office Visit [facility] Wound Care [address] [place] [phone] 09/03/2024 8:30 AM RESEARCH NUTRITIONIST Office [facility] [address] [place] [phone] 09/03/2024 11:00 AM RESEARCH NUTRITIONIST Office Visit [facility] Wound Care [address] [place] [phone] Vilma Neves MD [address] [place] [phone] 09/03/2024 11:00 AM RESEARCH NUTRITIONIST Office Visit [facility] Infectious Disease [address] [place] [phone] Amairani Sigala MD [address] [place] [phone] 09/04/2024 8:30 AM RESEARCH NUTRITIONIST Office [facility] [address] [place] [phone] 09/07/2024 8:30 AM RESEARCH NUTRITIONIST Office Visit [facility] Wound Care [address] [place] [phone] 09/08/2024 8:30 AM RESEARCH NUTRITIONIST Office Visit [facility] Wound Care [address] [place] [phone] 09/09/2024 8:30 AM RESEARCH NUTRITIONIST Office Visit [facility] Wound Care [address] [place] [phone] 09/10/2024 8:30 AM RESEARCH NUTRITIONIST Office Visit [facility] Wound Care [address] [place] [phone] 09/10/2024 11:20 AM RESEARCH NUTRITIONIST Office Visit [facility] Wound Care [address] [place] [phone] Vilma Neves MD [address] [place] [address] [phone] 09/11/2024 8:30 AM RESEARCH NUTRITIONIST Office Visit [facility] Wound Care [address] [place] [phone] 09/14/2024 8:30 AM RESEARCH NUTRITIONIST Office Visit [facility] Wound Care [address] [place] [phone] 09/15/2024 8:30 AM RESEARCH NUTRITIONIST Office Visit [facility] Wound Care [address] [place] [phone] documented as of this encounter Visit Diagnoses Not on filedocumented in this encounter Administered Medications Inactive Administered Medications - up to 3 most recent administrations Medication Order MAR Action Action Date Dose Rate Site fentaNYL (SUBLIMAZE) injection Intravenous, As needed, Starting on Sat06/08/24 at 1401, Anesthesia Intraprocedure Given 06/08/2024 2:01 PM CDT 25 mcg Ketamine HCl (KETALAR) injection Intravenous, As needed, Starting on Sat06/08/24 at 1421, Anesthesia Intraprocedure Given 06/08/2024 2:44 PM CDT 10 mg Given 06/08/2024 2:21 PM CDT 10 mg lactated Ringer's infusion 75 mL/hr, Intravenous, Continuous, Starting on Sat06/08/24 at 1230, For 5 days New Bag 06/09/2024 6:03 PM CDT 75 mL/hr 75 mL/hr New Bag 06/08/2024 2:15 PM CDT New Bag 06/08/2024 1:28 PM CDT lidocaine PF (XYLOCAINE) 2 % injection Infiltration, As needed, Starting on Sat06/08/24 at 1334, Anesthesia Intraprocedure Given 06/08/2024 1:34 PM CDT 40 mg midazolam (VERSED) injection Intravenous, As needed, Starting on Sat06/08/24 at 1335, Anesthesia Intraprocedure Given 06/08/2024 1:35 PM CDT 1 mg ondansetron (ZOFRAN) injection Intravenous, As needed, Starting on Sat06/08/24 at 1402, Anesthesia Intraprocedure Given 06/08/2024 2:02 PM CDT 4 mg propofol (DIPRIVAN) infusion 10 mg/mL Intravenous, Continuous PRN, Starting on Sat06/08/24 at 1334, Anesthesia Intraprocedure Rate/Dose Change 06/08/2024 2:15 PM CDT 75 mcg/kg/min 40.32 mL/hr Rate/Dose Change 06/08/2024 2:13 PM CDT 50 mcg/kg/min 26.8 8 mL/hr Rate/Dose Change 06/08/2024 2:08 PM CDT 75 mcg/kg/min 40.3 2 mL/hr documented in this encounter Additional Health Concerns Infection Onset Date Last Indicated Resolved Time MSSA 06/06/2024 06/12/2024 07/13/2024 9:58 AM CDT documented as of this encounter Care Teams Administrative Secretary Relationship Specialty Start Date End Date Thu Bhagat PA-C [address] [place] [phone] PCP - General 11/26/22 documented as of this encounter
--- OUTSIDE RECORDS SUMMARY | 2024-08-21 10:27 | XMS_ITS | Encounter Summary ---
Author Organization [facility] er Address [address] [place] [id number] Care Team Providers Care Guest Service Aide Name Role Phone Thu Bhagat PA-C Primary Care Provider [phone] Reason for Visit * Reason Comments Cellulitis Right foot * Auth/Cert (Routine) Specialty Diagnoses / Procedures Referred By Conteufemia t Referred To Contact Diagnoses Hyperglycemia Infection of right foot Acute renal failure, unspecified acute renal failure type (HCC) Procedures na Referral ID Status Reason Start Date Expiration Date Visits Re quested Visits Authorized [id number] 1 1 Encounter Details Date Type Department Care Team (Late st Contact Info) Description 06/12/2024 3:05 PM CDT - 06/12/2024 4:35 PM CDT Surgery [facility] Hospital Operating Room [address] [place] [id number] Angel Coombs DPM [address] [place] [id number] INCISION AND DRAINAGE woth possible delayed primary closure right foot Surgery Details Date/Time Status Location OR Service Patient Class Case Class Case Type Trauma Case? 06/12/24 3:05 PM Posted [facility] OR OR Podiatry Inpatient Panel 1 Procedure LRB Anes Op Region Wound Class Comments INCISION AND DRAINAGE woth possible delayed primary closure right foot Right Monitored Anesthesia Care Class I/ Clean Surgeon Surgeon Role Service Panel Angel Coombs DPM Primary Podiatry 1 Special Needs power irrigation, cultures, iodoform 10/24 available documented in this encounter Social History Tobacco [...] from your doctor or pharmacy? Never 06/06/2024 [facility] Utilities Answer Date Recorded In the past 12 months has e [employer], oil, or water Mobile Captain threatened to shut off services in your [...] How often do you attend chur or judaism services? More than 4 times per year [...] Questionnaire-2 Score 0 06/06/2024 [facility] - Occupational Stress [...] Answer Date Recorded How often does anyone, inclcarolee kerns family and friends, physically hurt you? [...] Reading Time Taken Comments Blood Pressure 116/83 06/12/2024 3:11 PM CDT Pulse 89 06/12/2024 3:11 PM CDT Temperature 35.8 ??C (96.5 ??F) 06/12/2024 7:37 AM CD T Respiratory Rate 16 06/12/2024 3:11 PM CDT Oxygen Saturation 93% 06/12/2024 7:37 AM CDT Inhaled Oxygen Concentration - - Weight 89.6 kg (197 lb 8.5 oz) 06/06/2024 9:01 A M CDT Height 185.4 cm (6' 0.99) 06/06/2024 9:01 AM CD T Body Mass Index 26.07 06/06/2024 9:01 AM CDT documented in this encounter Discharge Summaries * Pina Méndez MD - 06/17/2024 12:49 PM CDT INPATIENT DISCHARGE SUMMARY DATE OF ADMISSION 06/06/2024 DATE OF DISCHARGE 06/17/2024 ADMITTING PROVIDER Shantell Lewis MD - Hospitalist DISCHARGING PROVIDER Pina Méndez MD - Hospitalist [employer] Angel Coombs DPM [...] Infection of right foot BRIEF HPI Karin Fung is a 69 y.o. male with a [...] above PRIMARY CARE PROVIDER: Thu Bhagat PA-C [phone] TEST RESULTS PENDING AT DISCHARGE @[email or web address]@ OUTPATIENT FOLLOW-UP Future Appointments Date Time Provider Department Center 06/18/2024 1:00 PM [facility] 06/18/2024 2:00 PM [facility] 06/19/2024 2:00 PM [facility] 06/20/2024 2:00 PM [facility]FUSION [facility] 06/21/2024 2:00 PM [facility]FUSION [facility] 06/22/2024 2:00 PM [facility] INFUSION [facility] 06/23/2024 1:00 PM INFUSION CHAIR 1 [facility] 06/23/2024 2:30 PM Angel Coombs, DPM [facility] 06/24/2024 2:00 PM INFUSION CHAIR 1 [facility] 06/25/2024 8:00 AM Vilma Neves MD [facility] 06/25/2024 1:00 PM Amairani Sigala MD [facility] 06/25/2024 2:00 PM INFUSION CHAIR 1 [facility] [...] ordering medications/tests/procedures, referring/communicating with other health career center advisor not separately reported, documentation, and independently interpretingresults not separately reported, communicating results to the patient/family/caregiver, and care coordination not separately reported). Pina Méndez MD Hospitalist documented in this encounter Discharge Instructions * Discharge Instructions* Vilma Neves MD - 06/16/2024 1:[address] [facility] Patient name: Karin Fung Date of service: 06/16/24 Provider: Vilma Neves [...] any wound questions or concerns to: [facility] The clinic is [...] Care Everywhere. * Toe Amputation Care After (Malian) * Type 2 Diabetes Mellitus Self-Care Adult [id number] ([place]) * Diabetic Neuropathy ([place]) documented in this encounter Medications at Time [...] CDT Discharge Medication Education: Spoke to Mr. Fung in the patient's room to provide discharge [...] during hospitalization 06/17/2024 1407 by Domi Mcdonald, SHARI Outcome: Adequate for Discharge Problem: Discharge Planning Goal: Discharge to home or other facility with appropriate resources 06/17/2024 1407 by Domi Mcdonald, SHARI Outcome: Adequate for Discharge Goal: Absence of fever/infection during anticipated neutropenic period 06/17/2024 1407 by Domi Mcdonald RN Outcome: Adequate for Discharge Problem: Safety Adult - Fall Goal: Free from fall injury 06/17/2024 1407 by Domi Mcdonald RN Outcome: [...] date. Pt to do outpatient infusion at [facility] Infusion and [facility] wound clinic and is aware of his appointments. Pt is planning to rent DME equipment until [facility]. Pt is aware of the cost. DME listing was provided. Pt's girlfriend to provide transportation home. Addressed and answered all questions/concerns. No further C SS needed at this time. * Jasiel Rust, PharmD - 06/17/2024 9:08 AM CDT Images from the original note were not included. OPAT Team Note This patient has been enrolled in outpatient antimicrobial therapy (OPAT) and is being managed by the OPAT team. Patient: Karin Fung OPAT Enrollment Status: Clinic Infusion OPAT Labs Due: Weekly CBC and CMP OPAT End Date: 07/16/2024 (4-6 weeks of IV antibiotic) Micro Results: Microbiology Results Collected Updated Procedure 06/12/2024 1705 06/13/2024 1220 Tissue Culture, Anaerobic [[id number]] Swab from Foot, Right Anaerobic Tissue Culture Component Value Gram Stain No organisms seen. No WBC's seen. 06/12/2024 1704 06/15/2024 0843 Tissue culture, aerobic [[id number]] (Abnormal) Swab from Foot, Right Tissue Culture [...] 06/17/2024 0550 06/17/2024 0635 Basic metabolic panel [[id number]] (Abnormal) Blood, Venous Final result Component Value Units Sodium 136 mEq/L Potassium 4.1 mEq/L Chloride 101 mEq/L CO2 32 mmol/L Creatinine 1.14 mg/dL BUN 22 mg/dL Glucose 135 mg/dL Calcium, Total,S 8.9 mg/dL Anion Gap 3 Fasting? Yes 06/17/2024 0550 06/17/2024 0618 CBC ([facility] [employer]) [[id number]] (Abnormal) Blood, Venous Final result Component Value Units WBC 10.5 K/uL RBC 5.18 M/uL Hemoglobin 15.2 g/dL Hematocrit 47.8 % Platelets 376 K/uL MCV 92.3 fL MCH 29.3 pg MCHC 31.8 g/dL RDW 14.6 % NRBC %, Automated 0 % NRBC Absolute, Autmated 0.00 K/uL 06/16/2024 0608 06/16/2024 0826 Basic metabolic panel [[id number]] (Abnormal) Blood, Venous Final result Component Value Units Sodium 136 mEq/L Potassium 4.3 mEq/L Chloride 100 mEq/L CO2 30 mmol/L Creatinine 1.13 mg/dL BUN 20 mg/dL Glucose 116 mg/dL Calcium, Total,S 9.1 mg/dL Anion Gap 6 Fasting? Unknown 06/16/2024 0608 06/16/2024 0652 CBC ([employer]eme [employer]) [[id number]] Blood, Venous Final result Component Value Units WBC 10.2 K/uL RBC 5.36 M/uL Hemoglobin 15.9 g/dL Hematocrit 48.9 % Platelets 369 K/uL MCV 91.2 fL MCH 29.7 pg MCHC 32.5 g/dL RDW 14.7 % NRBC %, Automated 0 % NRBC Absolute, Autmated 0.00 K/uL 06/15/2024 0600 06/15/2024 0617 Basic metabolic panel [[id number]] (Abnormal) Blood, Venous Final result Component Value Units Sodium 136 mEq/L Potassium 4.0 mEq/L Chloride 100 mEq/L CO2 30 mmol/L Creatinine 1.05 mg/dL BUN 17 mg/dL Glucose 117 mg/dL Calcium, Total,S 8.8 mg/dL Anion Gap 6 Fasting? Yes 06/15/2024 0600 06/15/2024 0606 CBC (Heme Group) [[id number]] (Abnormal) Blood, Venous Final result Component Value Units WBC 11.5 K/uL RBC 5.04 M/uL Hemoglobin 14.9 g/dL Hematocrit 46.2 % Platelets 358 K/uL MCV 91.7 fL MCH 29.6 pg MCHC 32.3 g/dL RDW 14.9 % NRBC %, Automated 0 % NRBC Absolute, Autmated 0.00 K/uL 06/14/2024 0545 06/14/2024 0628 Basic metabolic panel [[id number]] (Abnormal) Blood, Venous Final result Component Value Units Sodium 138 mEq/L Potassium 4.2 mEq/L Chloride 101 mEq/L CO2 31 mmol/L Creatinine 1.03 mg/dL BUN 20 mg/dL Glucose 142 mg/dL Calcium, Total,S 8.9 mg/dL Anion Gap 6 Fasting? Yes 06/14/2024 0545 06/14/2024 0621 CBC (Heme [employer]) [[id number]] (Abnormal) Blood, Venous Final result Component Value Units WBC 12.1 K/uL RBC 5.04 M/uL Hemoglobin 15.1 g/dL Hematocrit 47.3 % Platelets 396 K/uL MCV 93.8 fL MCH 30.0 pg MCHC 31.9 g/dL RDW 15.2 % NRBC %, Automated 0 % NRBC Absolute, Autmated 0.00 K/uL 06/13/2024 0500 06/13/2024 0548 Basic metabolic panel [[id number]] (Abnormal) Blood, Venous Final result Component Value Units Sodium 135 mEq/L Potassium 4.0 mEq/L Chloride 102 mEq/L CO2 29 mmol/L Creatinine 1.21 mg/dL BUN 26 mg/dL Glucose 188 mg/dL Calcium, Total,S 8.7 mg/dL Anion Gap 4 Fasting? Yes 06/13/2024 0500 06/13/2024 0533 CBC (Heme [employer]) [[id number]] (Abnormal) Blood, Venous Final result Component Value Units WBC 16.2 K/uL RBC 5.00 M/uL Hemoglobin 14.8 g/dL Hematocrit 46.7 % Platelets 382 K/uL MCV 93.4 fL MCH 29.6 pg MCHC 31.7 g/dL RDW 15.2 % NRBC %, Automated 0 % NRBC Absolute, Autmated 0.00 K/uL 06/12/2024 0540 06/12/2024 0615 Basic metabolic panel [[id number]] (Abnormal) Blood, Venous Final result Component Value Units Sodium 137 mEq/L Potassium 4.2 mEq/L Chloride 103 mEq/L CO2 29 mmol/L Creatinine 1.13 mg/dL BUN 25 mg/dL Glucose 172 mg/dL Calcium, Total,S 9.2 mg/dL Anion Gap 5 Fasting? Yes 06/12/2024 0540 06/12/2024 0559 CBC ([employer]eme [employer]) [[id number]] (Abnormal) Blood, Venous Final result Component Value Units WBC 14.4 K/uL RBC 5.22 M/uL Hemoglobin 15.5 g/dL Hematocrit 48.2 % Platelets 396 K/uL MCV 92.3 fL MCH 29.7 pg MCHC 32.2 g/dL RDW 15.1 % NRBC %, Automated 0 % NRBC Absolute, Autmated 0.00 K/uL 06/11/2024 0610 06/11/2024 0710 Basic metabolic panel [[id number]] (Abnormal) Blood, Venous Final result Component Value Units Sodium 138 mEq/L Potassium 4.2 mEq/L Chloride 104 mEq/L CO2 25 mmol/L Creatinine 1.20 mg/dL BUN 24 mg/dL Glucose 173 mg/dL Calcium, Total,S 9.5 mg/dL Anion Gap 9 Fasting? Yes 06/11/2024 0610 06/11/2024 0653 CBC (Heme Group) [[id number]] (Abnormal) Blood, Venous Final result Component Value Units WBC 14.5 K/uL RBC 5.09 M/uL Hemoglobin 15.3 g/dL Hematocrit 46.8 % Platelets 389 K/uL MCV 91.9 fL MCH 30.1 pg MCHC 32.7 g/dL RDW 15.3 % NRBC %, Automated 0 % NRBC Absolute, Autmated 0.00 K/uL 06/10/2024 0554 06/10/2024 0613 Basic metabolic panel [[id number]] (Abnormal) Blood, Venous Final result Component Value Units Sodium 138 mEq/L Potassium 4.2 mEq/L Chloride 107 mEq/L CO2 24 mmol/L Creatinine 1.23 mg/dL BUN 24 mg/dL Glucose 139 mg/dL Calcium, Total,S 9.3 mg/dL Anion Gap 7 Fasting? Yes 06/10/2024 0554 06/10/2024 0607 CBC (Heme Group) [[id number]] (Abnormal) Blood, Venous Final result Component Value Units WBC 15.2 K/uL RBC 5.00 M/uL Hemoglobin 15.2 g/dL Hematocrit 47.1 % Platelets 347 K/uL MCV 94.2 fL MCH 30.4 pg MCHC 32.3 g/dL RDW 15.6 % NRBC %, Automated 0 % NRBC Absolute, Autmated 0.00 K/uL 06/09/2024 1138 06/09/2024 1414 Vancomycin [[id number]] Blood, Venous Final result Component Value Units Vancomycin 22.9 mcg/mL Last Dose Date 06/09/2024 Last Dose Time 1010 AM 06/09/2024 0605 06/09/2024 0649 Basic metabolic panel [[id number]] (Abnormal) Blood, Venous Final result Component Value Units Sodium 137 mEq/L Potassium 4.2 mEq/L Chloride 108 mEq/L CO2 24 mmol/L Creatinine 1.21 mg/dL BUN 29 mg/dL Glucose 113 mg/dL Calcium, Total,S 9.2 mg/dL Anion Gap 5 Fasting? Yes 06/09/2024 0605 06/09/2024 0637 CBC (Heme Group) [[id number]] (Abnormal) Blood, Venous Final result Component Value Units WBC 13.8 K/uL RBC 5.05 M/uL Hemoglobin 14.9 g/dL Hematocrit 47.0 % Platelets 334 K/uL MCV 93.1 fL MCH 29.5 pg MCHC 31.7 g/dL RDW 15.4 % NRBC %, Automated 0 % NRBC Absolute, Autmated 0.00 K/uL 06/08/2024 0605 06/08/2024 0707 Basic metabolic panel [[id number]] (Abnormal) Blood, Venous Final result Component Value Units Sodium 138 mEq/L Potassium 3.9 mEq/L Chloride 109 mEq/L CO2 21 mmol/L Creatinine 1.33 mg/dL BUN 36 mg/dL Glucose 84 mg/dL Calcium, Total,S 8.9 mg/dL Anion Gap 8 Fasting? Yes 06/08/2024 0605 06/08/2024 0658 CBC (Heme Group) [[id number]] (Abnormal) Blood, Venous Final result Component Value Units WBC 14.2 K/uL RBC 4.80 M/uL Hemoglobin 14.5 g/dL Hematocrit 44.6 % Platelets 298 K/uL MCV 92.9 fL MCH 30.2 pg MCHC 32.5 g/dL RDW 15.1 % NRBC %, Automated 0 % NRBC Absolute, Autmated 0.00 K/uL 06/06/2024 1000 06/08/2024 0229 Hemoglobin A1c [[id number]] (Abnormal) Blood, Venous Final result Component Value Units Hemoglobin A1C 9.0 % A1C 06/07/2024 0513 06/07/2024 0702 Vancomycin [[id number]] Blood, Venous Final result Component Value Units Vancomycin 9.6 mcg/mL Last Dose Date 06/06/2024 Last Dose Time 1040 06/07/2024 0513 06/07/2024 0546 Basic metabolic panel [[id number]] (Abnormal) Blood, Venous Final result Component Value Units Sodium 138 mEq/L Potassium 4.0 mEq/L Chloride 107 mEq/L CO2 22 mmol/L Creatinine 1.81 mg/dL BUN 55 mg/dL Glucose 125 mg/dL Calcium, Total,S 9.1 mg/dL Anion Gap 9 Fasting? Yes 06/07/2024 0513 06/07/2024 0539 CBC (Heme Group) [[id number]] (Abnormal) Blood, Venous Final result Component Value Units WBC 16.4 K/uL RBC 4.95 M/uL Hemoglobin 14.8 g/dL Hematocrit 45.4 % Platelets 281 K/uL MCV 91.7 fL MCH 29.9 pg MCHC 32.6 g/dL RDW 15.1 % NRBC %, Automated 0 % NRBC Absolute, Autmated 0.00 K/uL 06/06/2024 1000 06/06/2024 1119 Procalcitonin [[id number]] (Abnormal) Blood, Venous Final result Component Value Units Procalcitonin 1.34 ng/mL 06/06/2024 0955 06/06/2024 1034 Covid-19, [place] ID Now, PCR symptomatic [[id number]] Swab from Nasal Final result Component Value Covid Source Nasal Covid-19, ID Now PCR NEGATIVE 06/06/2024 1000 06/06/2024 1032 C-reactive protein [[id number]] (Abnormal) Blood, Venous Final result Component Value Units CRP >320.0 mg/L 06/06/2024 1000 06/06/2024 1030 CBC auto differential [[id number]] (Abnormal) Blood, Venous Final result Component Value [...] 0.00 K/uL 06/06/2024 1000 06/06/2024 1030 Morphology [[id number]] Final result Component Value Slide Review PERFORMED RBC Morphology NORMAL PLT Morphology ADEQUATE 06/06/2024 1000 06/06/2024 1028 Basic metabolic panel [[id number]] (Abnormal) Blood, Venous Final result Component Value Units Sodium 134 mEq/L Potassium 4.5 mEq/L Chloride 98 mEq/L CO2 24 mmol/L Creatinine 2.61 mg/dL BUN 78 mg/dL Glucose 254 mg/dL Calcium, Total,S 9.6 mg/dL Anion Gap 12 Fasting? Unknown 06/06/2024 1000 06/06/2024 1028 Magnesium [[id number]] (Abnormal) Blood, Venous Final result Component Value Units Magnesium 2.5 mg/dL 06/06/2024 1000 06/06/2024 1020 Lactate, plasma [[id number]] Blood, Venous Final result Component Value Units Lactate 1.3 mmol/L 06/06/2024 1000 06/06/2024 1017 APTT [[id number]] (Abnormal) Blood, Venous Final result Component Value Units aPTT 40 seconds 06/06/2024 1000 06/06/2024 1017 Protime-INR [[id number]] (Abnormal) Blood, Venous Final result Component Value Units Protime 19.0 seconds INR 1.6 06/06/2024 1000 06/06/2024 1014 Blood gas, venous [[id number]] Blood, Venous Final result Component Value Units pH, Jorge 7.37 pCO2, Jorge 44 mm Hg HCO3, Venous 25.4 mmol/L Base Excess/Deficit Venous -0.2 mmol/L Current Indication: Other (Comment) Diabetic foot abscess Overall Recommendation: The patient is currently taking Ertapenem (1 gram Q24H) . Per antimicrobial stewardship guidelines,pharmacy recommends Karin Fung continue with current Therapy. Pharmacy took [...] PM CDT Physical Therapy Evaluation Patient name:Karin Fung Date of service: 06/16/2024 Attending provider: Pina Méndez MD Reason for referral: Decreased mobility, Decreased [...] (HCC) 09/22/2012 Unspecified systolic (congestive) heart failure ([facility]) 05/23/2018 SUBJECTIVE: Patient is 69 year old [...] program with modified independence in 5 days. superintendent marine oil terminal goal: Patient will discharge to least restrictive [...] Patient reported he has spoken with social work faculty member regarding equipment needs. Patient believes his aunt [...] at bedside; confirmed with nursing. 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 Possible transmetatarsal amputation with gastroc lengthening; Surgeon: Steve Lopez DPM; Location: [facility] OR; Service: Podiatry; Laterality: Right; INCISION AND DRAINAGE OF WOUND Right 06/12/2024 Procedure: INCISION AND DRAINAGE woth possible delayed primary closure right foot; Surgeon: Angel Coombs DPM; Location: [facility] OR; Service: Podiatry; Laterality: Right; SUBJECTIVE: [...] with his girlfriend in an apartment in [place]. There are no steps to enter. His [...] up bar. For leisure, patient enjoys singing karaoke 4 nights a week and going for [...] vac management. Social work provided paperwork from [place] for DME to physical therapist. This was [...] Bonner LSW - 06/16/2024 10:00 AM CDT [facility] SS continues to work with pt and the [facility] to obtain auth for services following discharge. Pt to continue with plan to come to [facility] Infusion suite for infusion services and will follow up as an outpatient with the wound clinic. [facility] SS to continue to assist. * Pina Méndez MD - 06/16/2024 7:41 AM CDT INPATIENT PROGRESS NOTE SUBJECTIVE No complaints. Denies pain, doing well with NWB on RLE MEDICATIONS Current Facility-Administered Medications: acetaminophen (TYLENOL) tablet 1,000 mg, 1,000 mg, Oral, q6h PRN, Pina Méndez MD, 1,000 mg at 06/14/24 0807 apixaban (ELIQUIS) tablet 5 mg, 5 mg, Oral, BID, Pina Méndez MD, 5 mg at 06/16/24 0935 atorvastatin (LIPITOR) tablet 40 mg, 40 mg, Oral, Daily, Pina Méndez MD, 40 mg at 06/16/24 0935 benzonatate (TESSALON) capsule 100 mg, 100 mg, Oral, TID PRN, Shantell Lewis MD carvedilol (COREG) tablet 25 mg, 25 mg, Oral, BID with meals, Pina Méndez MD, 25 mg at 06/16/24 1742 dextrose (GLUTOSE) oral gel 40% (1 Tube = net wt. 37.5 gm containing 15 gm dextrose), 1 Tube, Oral,PRN OR dextrose 50 % solution 25 mL, 25 mL, Intravenous, PRN OR dextrose 10 % infusion 250 mL, 250 mL, Intravenous, q15 min PRN, Pina Méndez MD dextrose (GLUTOSE) oral gel 40% (1 Tube = net wt. 37.5 gm containing 15 gm dextrose), 1 Tube, Oral,PRN, Pina Méndez MD dextrose 50 % solution 25 mL, 25 mL, Intravenous, PRN OR dextrose 10 % infusion 250 mL, 250 mL,Intravenous, q15 min PRN OR Glucagon HCl (rDNA) injection 1 mg, 1 mg, Intramuscular, q15 min PRN, Pina Méndez MD [Held by provider] dilTIAZem (CARDIZEM) immediate release tablet 60 mg, 60 mg, Oral, q6h, Shantell Lewis MD, 60 mg at 06/14/24 1424 diphenhydrAMINE (BENADRYL) tablet 25 mg, 25 mg, Oral, q6h PRN, Shantell Lewis MD, 25 mg at 06/10/24 1638 ertapenem (INVanz) 1 g in sodium chloride 0.9 % 50 mL DWTN-Momq-Wrm Plus, 1 g, Intravenous, q24h, Shantell Lewis MD, Last Rate: 100 mL/hr at 06/16/24 1639, 1 g at 06/16/24 1639 guaiFENesin (MUCINEX) 12 hr tablet 600 mg, 600 mg, Oral, BID PRN, Shantell Lewis MD, 600 mg at 06/08/24 0136 guaiFENesin-codeine (ROBITUSSIN-AC) 100-10 MG/5ML liquid 5 mL, 5 mL, Oral, q4h PRN, Shantell Lewis MD hydrocortisone 2.5 % ointment, , Topical, BID, Pina Méndez MD, 1 application at 06/15/24 210 insulin glargine (LANTUS) inj pen 20 Units, 20 Units, Subcutaneous, Nightly, Pina Méndez MD,20 Units at 06/15/24 2323 insulin lispro (HumaLOG) injection 1-10 Units, 1-10 Units, Subcutaneous, TID with meals, Pina Méndez MD, 6 Units at 06/16/24 1747 insulin lispro (HumaLOG) injection 1-26 Units, 1-26 Units, Subcutaneous, QID w/ meals & nightly, Shantell Lewis MD, 8 Units at 06/16/24 1756 insulin lispro (HumaLOG) injection 1-8 Units, 1-8 Units, Subcutaneous, Nightly, Pina Méndez MD, 3 Units at 06/15/24 2323 oxyCODONE [...] mg, 50 mg, Oral, q6h PRN, Pina Méndez MD, 50 mg at 06/14/24 0807 PHYSICAL [...] to 25mg bid Diabetes mellitus type 2, [id number] patient's blood sugars are high on arrival [...] ordering medications/tests/procedures, referring/communicating with other health career center advisor not separately reported, documentation, and independentlyinterpreting results not separately reported, communicating results to the patient/family/caregiver, and care coordination not separately reported). Pina Méndez MD * Tania Freedman BSN - 06/16/2024 [...] ready for discharge on this date. The [facility] has been updated on pt Infusion needs upon discharge. Pt is still wanting to come to [facility] Infusion Services for treatment. Pt states his girlfriend or Aunt will plan to provide transportation for him. Paperwork for DME was provided to therapy department to complete for the [facility] to order. Awaiting wound care recommendations so this technical writer can coordinate with the [facility] on services. The [facility] states this can take up to 48 hours to approve. Medical team is aware. [facility] SS to continue to follow pt through discharge. * Pina Méndez MD - 06/15/2024 2:38 PM CDT INPATIENT [...] 40 mg, 40 mg, Oral, Daily, Pina Méndez MD benzonatate (TESSALON) capsule 100 mg, 100 mg, Oral, TID PRN, Shantell Lewis MD carvedilol (COREG) tablet 25 mg, 25 mg, Oral, BID with meals, Pina Méndez MD, 25 mg at 06/15/24 0718 dextrose [...] 1 mg, Intramuscular, q15 min PRN, Pina Méndez MD [Held by provider] dilTIAZem (CARDIZEM) immediate [...] in sodium chloride 0.9 % 50 mL FXUT-Iypc-Kik Plus, 1 g, Intravenous, q24h, Shantell Lewis MD, Stopped at 06/14/24 1652 guaiFENesin (MUCINEX) 12 hr tablet 600 mg, 600 mg, Oral, BID PRN, Shantell Lewis MD, 600 mg at 06/08/24 0136 guaiFENesin-codeine (ROBITUSSIN-AC) 100-10 MG/5ML liquid 5 mL, 5 mL, Oral, q4h PRN, Shantell Lewis MD hydrocortisone 2.5 % ointment, , Topical, BID, Pina Méndez MD, Given at 06/15/24 1008 insulin glargine (LANTUS) inj pen 20 Units, 20 Units, Subcutaneous, Nightly, Pina Méndez MD,20 Units at 06/14/245 insulin lispro (HumaLOG) injection 1-10 Units, 1-10 Units, Subcutaneous, TID with meals, Shantell Lewis MD, 4 Units at 06/15/24 1253 insulin lispro (HumaLOG) injection 1-26 Units, 1-26 Units, Subcutaneous, QID w/ meals & nightly, Shantell Lewis MD, 13 Units at 06/15/24 1254 insulin lispro (HumaLOG) injection 1-8 Units, 1-8 Units, Subcutaneous, Nightly, Pina Méndez MD, 7 Units at 06/14/24 2125 oxyCODONE (ROXICODONE) immediate release tablet 10 mg, [...] to 25mg bid Diabetes mellitus type 2, [id number] patient's blood sugars are high on arrival [...] ordering medications/tests/procedures, referring/communicating with other health career center advisor not separately reported, documentation, and independentlyinterpreting results not separately reported, communicating results to the patient/family/caregiver, and care coordination not separately reported). Pina Méndez MD * Ioana Aparicio, DPT - 06/15/2024 12:47 PM CDT Physical Therapy Evaluation Patient name:Karin Fung Date of service: 06/15/2024 Attending provider: Pina Ménedz MD Reason for referral: Decreased mobility, Decreased [...] Past Medical History: Diagnosis Date Atrial fibrillation ([facility]) 02/03/2016 Compression fracture of vertebra ([facility]) 02/04/2017 Confusion 05/20/2018 Dizziness 08/05/2012 Essential hypertension [...] syndrome in adult 02/09/2016 Presbyopia 03/15/2005 Stroke ([facility]) 05/23/2018 Type 2 diabetes mellitus with diabetic neuropathy, unspecified ([facility]) 09/22/2012 Unspecified systolic (congestive) heart failure ([facility]) 05/23/2018 SUBJECTIVE: Patient is 69 year old [...] program with modified independence in 5 days. 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 * Afia Zamarripa OTBryan - 06/15/2024 7:57 AM CDT Occupational Therapy Evaluation Patient name: Karin Fung Date of service: 06/15/24 Attending physician: Pina Méndez MD Referring diagnosis: Right foot infection, A-fib, [...] syndrome in adult 02/09/2016 Presbyopia 03/15/2005 Stroke ([facility]) 05/23/2018 Type 2 diabetes mellitus with diabetic neuropathy, unspecified ([facility]) 09/22/2012 Unspecified systolic (congestive) heart failure ([facility]) 05/23/2018 Past Surgical History: Procedure Laterality Date FOOT AMPUTATION THROUGH METATARSAL Right 06/08/2024 Procedure: Right second toe amputation with wound debridement and incision and drainage. Possible transmetatarsal amputation with gastroc lengthening; Surgeon: Steve Lopez DPM; Location: [facility] OR; Service: Podiatry; Laterality: Right; INCISION AND DRAINAGE OF WOUND Right 06/12/2024 Procedure: INCISION AND DRAINAGE woth possible delayed primary closure right foot; Surgeon: Angel Coombs DPM; Location: [facility] OR; Service: Podiatry; Laterality: Right; SUBJECTIVE: [...] with his girlfriend in an apartment in [place]. There are no steps to enter. His [...] up bar. For leisure, patient enjoys singing croRentablesy 4 nights a week and going for [...] 15 minutes Total Treatment Time: 25 minutes Afia Zamarripa OTR * Pina Méndez MD - 06/14/2024 10:34 AM CDT INPATIENT [...] 60 mg, 60 mg, Oral, q6h, Shantell Lweis MD, 60mg at 06/14/24 1424 diphenhydrAMINE (BENADRYL) tablet 25 mg, 25 mg, Oral, q6h PRN, Shantell Lewis MD, 25 mg at 06/10/24 1638 enoxaparin (LOVENOX) syringe 40 mg, 40 mg, Subcutaneous, q24h ELAINA, Shantell Lewis MD, 40 mg at 06/14/24 0806 ertapenem (INVanz) 1 g in sodium chloride 0.9 % 50 mL KZUQ-Etnl-Kzb Plus, 1 g, Intravenous, q24h, Shantell Lewis MD, Last Rate: 100 mL/hr at 06/13/24 1604, 1 g at 06/13/24 1604 guaiFENesin (MUCINEX) 12 hr tablet 600 mg, 600 mg, Oral, BID PRN, Shantell Lewis MD, 600 mg at 06/08/24 0136 guaiFENesin-codeine (ROBITUSSIN-AC) 100-10 MG/5ML liquid 5 mL, 5 mL, Oral, q4h PRN, Shantell Lewis MD hydrocortisone 2.5 % ointment, , Topical, BID, Pina Méndez MD, Given at 06/14/24 1030 insulin glargine [...] mg, Oral, q4h PRN, 5 mg at 06/11/242117 OR oxyCODONE (ROXICODONE) 5 MG/5ML solution 5 [...] to 25mg bid Diabetes mellitus type 2, car-zdkkjtp-qyyjeslgr patient's blood sugars are high on arrival [...] ordering medications/tests/procedures, referring/communicating with other health career center advisor not separately reported, documentation, and independentlyinterpreting results not separately reported, communicating results to the patient/family/caregiver, and care coordination not separately reported). Pina Méndez MD * Angel Coombs DPM - 06/14/2024 [...] if he needs to stay at a [facility]p facility temporarily before going home to cupola patcher helper him in his recovery. Patient was agreeable to this and said that he would be willing to stay in a usp facility if need be. This would be helpful for him to continue getting his wound VAC care and staying off of the foot. If however he can do this at home per OT and PT wewill recommend discharging him home. Medical management will [...] over many days Diabetes mellitus type 2, cto-hfywvsf-unxkuuvbf patient's blood sugars are high on arrival [...] ordering medications/tests/procedures, referring/communicating with other health career center advisor not separately reported, documentation, and independentlyinterpreting results [...] Assessment completed with: Patient Assessment Discussion: This technical writer spoke with pt as he will likely need IV antibiotics upon discharge. Discussed both home infusion options and coming to [facility] Infusion for services. Pt would like to come to [facility] for infusion services as he lives nearby. This technical writer called and spoke with Toña Carranza RN (phone: [phone]) with the [place] [facility] Care Transitions Team. [facility] SS will work with Toña on obtaining orders from the [place] for pt to be seen at [facility] Infusion suite. [facility] SS to continue to assist through discharge. Plan: [facility] SS contact information provided Response: Patient in [...] Monitor on telemetry Diabetes mellitus type 2, gfh-lnanlyg-qjhofkahl patient's blood sugars are high on arrival [...] ordering medications/tests/procedures, referring/communicating with other health career center advisor not separately reported, documentation, and independentlyinterpreting results [...] Monitor on telemetry Diabetes mellitus type 2, ynk-gapwnhr-epbqbkznn patient's blood sugars are high on arrival [...] ordering medications/tests/procedures, referring/communicating with other health career center advisor not separately reported, documentation, and independentlyinterpreting results [...] Monitor on telemetry Diabetes mellitus type 2, nvc-cjjxvzr-plnlkppao patient's blood sugars are high on arrival [...] ordering medications/tests/procedures, referring/communicating with other health career center advisor not separately reported, documentation, and independentlyinterpreting results [...] Monitor on telemetry Diabetes mellitus type 2, foy-mqkvozh-nzbbstpca patient's blood sugars are high on arrival [...] ordering medications/tests/procedures, referring/communicating with other health career center advisor not separately reported, documentation, and independentlyinterpreting results [...] adequate comfort level or baseline comfort level 06/08/20242312 by Eva Paul RN Outcome: Progressing [...] tomorrow Continue Coreg Diabetes mellitus type 2, tad-mufxvhb-luduffqfg patient's blood sugars are high on arrival [...] ordering medications/tests/procedures, referring/communicating with other health career center advisor not separately reported, documentation, and independentlyinterpreting results [...] and discharge instructions Outcome: Progressing J.T A&Ox4, R2-6/10 R.foot pain reported and relived by prn [...] No organisms seen. No WBC's seen. Covid-19, Mcelroy ID Now, PCR symptomatic Collection Time: 06/06/24 [...] postoperative Continue Coreg Diabetes mellitus type 2, dve-nrtywrq-sdzwstozc patient's blood sugars are high on arrival [...] ordering medications/tests/procedures, referring/communicating with other health career center advisor not separately reported, documentation, and independentlyinterpreting results [...] PM CDT History Of Present Illness Karin Fung is a 69 y.o. 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 Surgical History He has no past [...] No organisms seen. No WBC's seen. Covid-19, Mcelroy ID Now, PCR symptomatic Collection Time: 06/06/24 [...] postoperative Continue Coreg Diabetes mellitus type 2, xct-gzgoptp-lcontgxur patient's blood sugars are high on arrival and states they have been running in the 200s at home. 15 units Lantus nightly with sliding scale and carb counting Diabetic diet Follow sugars HLD: Continue statin DVT: Lovenox Full Code documented in this encounter Procedure Notes * Evelyn Aguilar BSN - 06/15/2024 7:05 PM CDTAssociated Order(s): Vascular Line Placement Vascular Access Insertion Procedure Information Procedure performed: PICC Reason for insertion: intravenous antibiotics Current IV access: peripheral IV Inserting Clinician: Pediatric Physical Therapy Assistant: DAX ETTA,RN,CRNI Inserting RN: EVELYN AGUILAR,RN Preanesthetic Checklist Completed: patient identified, IV checked, [...] PM Catheter Fr Size: 3 Lot #: [id number] Number of lumens: single lumen Analgesia used: [...] RD - 06/15/2024 9:57 AM CDT Karin Fung 1955 Diagnosis: Patient Active Problem List Diagnosis [...] Calculations: 89.6 kg (197 lb 8.5 oz) [place] Equation: [address] [place] Equation: 1725 Equation Chosen to Use by RD: Nabila Hodgson Activity Factor: 1.2 Total Energy Needs: 2069 Temp: (!) 36.1 ??C (96.9 ??F) Estimated Protein Needs Total Protein Estimated Needs: 90-108 grams Method for Estimating Needs: 1-1.2 gram/kg Fluid Needs Total Fluid Estimated Needs: 2700 ml Method for Estimating Needs: 30 ml/kg Edema Masking Weight Loss: no Reduced last trimmer strength: no Current Diet: 60 gram carbohydrate [...] It is my pleasure to see Karin Fung is a 69 y.o. male at [...] (two) times a day with meals Yes Jaek Shah MD pioglitazone (ACTOS) 45 MG tablet [...] GGT, ALKPHOS, BILITOT No results found for: [id number] No results found for: HAV, HEPAIGM, HEPBIGM, [...] ordering medications/tests/procedures, referring/communicating with other health career center advisor not separately reported, documentation, and independentlyinterpreting results not separately reported, communicating results to the patient/family/caregiver, and care coordination not separately reported). Amairani Strickland MD Infectious diseases Trial Judge * Amairain Sigala MD - 06/10/2024 10:17 AM CDT INFECTIOUS DISEASES progress note 06/10/24 Reason For Consult: Diabetic foot infection /abscess in the foot Subjective Patient seen and examined. No current issues. No fever, no side effect from the antibiotic. Awaiting surgery this coming Saturday HISTORY OF PRESENT ILLNESS It is my pleasure to see Karin Fung is a 69 y.o. male at [...] by mouth 2 times daily Yes Provider, HistoricalMD aspirin EC 81 MG EC tablet Take 1 tablet (81 mg total) by mouth daily Yes Provider, HistoricalMD atorvastatin (LIPITOR) 80 MG tablet Take 0.5 tablets (40 mg total) by mouth 1 (one) time each day 04/27/24 Yes Provider, HistoricalMD carvedilol (COREG) 12.5 MG tablet Take 1 [...] 1 (one) time each day 10/28/23Yes Jake hSah MD cyanocobalamin (VITAMIN B-12) 1000 MCG tablet [...] GGT, ALKPHOS, BILITOT No results found for: [id number] No results found for: HAV, HEPAIGM, HEPBIGM, [...] ordering medications/tests/procedures, referring/communicating with other health career center advisor not separately reported, documentation, and independentlyinterpreting results not separately reported, communicating results to the patient/family/caregiver, and care coordination not separately reported). Amairani Strickland MD Infectious diseases Trial Judge * Amairani Sigala MD - 06/09/2024 3:14 PM CDTAssociated Order(s): IP CONSULT TO INFECTIOUS DISEASES INFECTIOUS DISEASES CONSULTATION 06/09/24 Reason For Consult: Diabetic foot infection /abscess in the foot Subjective Requesting MD: Dr. Lewis HISTORY OF PRESENT ILLNESS It is my pleasure to see Karin Fung is a 69 y.o. male at [...] 2 diabetes mellitus with diabetic neuropathy, unspecified ([facility]) 09/22/2012 Unspecified systolic (congestive) heart failure ([facility]) 05/23/2018 PAST SURGICAL HISTORY History reviewed. No [...] GGT, ALKPHOS, BILITOT No results found for: [id number] No results found for: HAV, HEPAIGM, HEPBIGM, [...] ordering medications/tests/procedures, referring/communicating with other health career center advisor not separately reported, documentation, and independentlyinterpreting results not separately reported, communicating results to the patient/family/caregiver, and care coordination not separately reported). Amairani Strickland MD Infectious diseases Trial Judge * Steve Lopez, DPM - 06/07/2024 11:25 AM CDTAssociated Order(s): IP CONSULT TO PODIATRY Reason For Consult Right foot infection Requesting MD Shantell Lewis MD History Of Present Illness Karin Fung is a 69 y.o. 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 Surgical History He has no past [...] No organisms seen. No WBC's seen. Covid-19, Mcelroy ID Now, PCR symptomatic Collection Time: 06/06/24 [...] in this encounter Nursing Notes * Evelyn Aguilar BSN - 06/15/2024 9:05 PM CDT PICC PLACEMENT 2104: Radiology report received on PICC placement states PICC terminates at the cavoatrial junction. Telephone call to Maggie Lopez RN charge on Med/Surg and informed that PICC line maynow be used. MeU * Evelyn Aguilar BSN - 06/15/2024 6:59 PM CDT PICC [...] Date of Surgery: 06/12/2024 Surgeon: Dr. Coombs Pediatric Physical Therapy Assistant:none Pre-op Diagnosis: Ulceration right foot status post [...] PM CDT Date: 06/06/2024 - 06/12/2024 Location: [facility] OR Name: Karin Fung, : 1955, Diagnosis Pre-op Diagnosis * Infection of right foot [L08.9] Post-op Diagnosis * Infection of right foot [L08.9] Preliminary CPT code(s): No CPT code documented in operative note Procedure(s): INCISION AND DRAINAGE right foot Surgeons and Role: * Angel Coombs DPM - Primary Procedure Summary Anesthesia: Monitored Anesthesia Care ASA: III Estimated Blood Loss: Minimal Staff: Hand Mica Plate Layer: Janine Carlton Scrub Person: Sarah Avalos Scott Richard Indications: Karin Fung is an 69 y.o. male who is having surgery for Infection of right foot [L08.9]. Findings: necrotic tissue Complications: None; patient tolerated the procedure well. Disposition: PACU - hemodynamically stable. Condition: stable Attending Attestation: I was present and scrubbed for the entire procedure. Angel Coombs DPM * Op Note - Steve Lopez DPM - 06/08/2024 1:29 PM CDT Operative Note Date: 06/08/2024 Location: [facility] OR Name: Karin Fung, : 1955, Diagnosis Pre-op Diagnosis * Infection [...] III Estimated Blood Loss: 10 mL Staff: Hand Mica Plate Layer: Ismael Steele RN; Aneesh Salcedo Relief Hand Mica Plate Layer: Cole Angel RN Relief Scrub: Janine Kyle Scrub Person: Klarissa Claire; Heaven Cuenca Indications: Karin Fung is an 69 y.o. male who is [...] of the hallux at the interspace and tracking under the proximal phalanx of the hallux. Expressed [...] until stable for transport back to the [facility]. Patient will continue to receive IV antibiotics [...] the infection and pain is worse. Pain 9/10. Patients last doseof of Tylenol and ibuprofen was around 2 am this morning. * Lazaro Chin APRN, BABY FORMULA MIXER - 06/06/2024 8:51 AM CDT HPI No [...] (HCC) Disposition: Data Unavailable Lazaro Chin APRN, DAGO 06/06/24 1139 documented in this encounter Plan of Treatment Upcoming Encounters Date Type Department Care Team (Late st Contact Info) Description 08/24/2024 8:30 AM BINITROTOLUENE OPERATOR Office Visit [facility] Hospital Wound Care [address] [place] [phone] 08/24/2024 11:30 AM BINITROTOLUENE OPERATOR Office Visit [facility] [address] [place] [address] Angel Coombs, DPM [address] [place] [phone] 08/25/2024 8:30 AM BINITROTOLUENE OPERATOR Office Visit [facility] Hospital Wound Care [address] [place] [phone] 08/26/2024 8:30 AM BINITROTOLUENE OPERATOR Office Visit [facility] Hospital Wound Care [address] [place] [address] 08/27/2024 8:30 AM BINITROTOLUENE OPERATOR Office Visit [facility] Hospital Wound Care [address] [place] [address] 08/27/2024 11:00 AM BINITROTOLUENE OPERATOR Office Visit [facility] Hospital Wound Care [address] [place] [address] Vilma Neves MD [address] [place] [phone] 08/28/2024 8:30 AM BINITROTOLUENE OPERATOR Office Visit [facility] Hospital Wound Care [address] [place] [phone] 08/31/2024 8:30 AM BINITROTOLUENE OPERATOR [facility] Visit [facility] [address] [place] [phone] 09/01/2024 8:30 AM BINITROTOLUENE OPERATOR [facility] Visit [facility] [address] [place] [address] 09/02/2024 8:30 AM BINITROTOLUENE OPERATOR Office Visit [facility] [address] [place] [phone] 09/03/2024 8:30 AM BINITROTOLUENE OPERATOR Office Visit [facility] Hospital Wound Care [address] [place] [phone] 09/03/2024 11:00 AM BINITROTOLUENE OPERATOR Office Visit [facility] Hospital Wound Care [address] [place] [phone] Vilma Neves MD [address] [place] [phone] 09/03/2024 11:00 AM BINITROTOLUENE OPERATOR Office Visit [facility] Hospital Infectious Disease [address] [place] [address] Amairani Sigala MD [address] [place] [phone] 09/04/2024 8:30 AM BINITROTOLUENE OPERATOR Office Visit [facility] Hospital Wound Care [address] [place] [phone] 09/07/2024 8:30 AM BINITROTOLUENE OPERATOR Office Visit [facility] Hospital Wound Care [address] [place] [phone] 09/08/2024 8:30 AM BINITROTOLUENE OPERATOR Office Visit [facility] Hospital Wound Care [address] [place] [phone] 09/09/2024 8:30 AM BINITROTOLUENE OPERATOR Office Visit [facility] Hospital Wound Care [address] [place] [phone] 09/10/2024 8:30 AM BINITROTOLUENE OPERATOR Office Visit [facility] Hospital Wound Care [address] [place] [address] [phone] 09/10/2024 11:20 AM BINITROTOLUENE OPERATOR Office Visit [facility] Hospital Wound Care [address] [place] [phone] Vilma Neves MD [address] [place] [phone] 09/11/2024 8:30 AM BINITROTOLUENE OPERATOR Office Visit [facility] Hospital Wound Care [address] [place] [phone] 09/14/2024 8:30 AM BINITROTOLUENE OPERATOR Office Visit [facility] Hospital Wound Care [address] [place] [phone] 09/15/2024 8:30 AM BINITROTOLUENE OPERATOR Office Visit [facility] W[facility] [address] [place] [address] Scheduled Orders Name Type Priority Associated Diagnoses [...] CULTURE, AEROBIC Routine 06/08/2024 2:10 PM CDT POCT PRECISION GLUCOSE Routine 06/08/2024 12:30 PM [...] PANEL STAT 06/06/2024 10:00 AM CDT COVID-19, MCELROY ID NOW, PCR STAT 06/06/2024 9:55 AM CDT TISSUE CULTURE, ANAEROBIC STAT 06/06/2024 9:36 AM CDT TISSUE CULTURE, AEROBIC STAT 06/06/2024 9:36 AM CDT documented in this encounter Results * (ABNORMAL) POCT Precision glucose (06/17/2024 11:43 AM CDT) [facility] Glucose Blood, POC 284(H) 70 - 100 mg/dL 06/17/2024 11:43 AM CDT [facility] Comment: Meter ID: [id number] Capillary whole blood specimens should not be [...] AM CDT 06/17/2024 11:43 AM CDT Pina Méndez MD LAB POINT OF CARE TE ST DOCKED DEVICE UNSOLICITED RESULTS Performing Organization Address [facility] de Phone Number [facility] [address] [place] [address] * (ABNORMAL) POCT Precision glucose (06/17/2024 6:37 AM CDT) Glucose Blood, POC 150(H) 70 - 100 mg/dL 06/17/2024 6:37 AM CDT [facility] Comment: Meter ID: [id number] Capillary whole blood specimens should not be [...] AM CDT 06/17/2024 6:38 AM CDT Pina Méndez MD LAB POINT OF CARE TE ST DOCKED DEVICE UNSOLICITED RESULTS Performing Organization Address [facility] de Phone Number [facility] [address] [place], [place] [id number] * Estimated Glomerular Filtration Rate (eGFR) (06/17/2024 5:50 AM CDT) Estimated Glomerular Filtration Rate (eGFR) >60 06/17/2024 6:35 AM CDT [facility] Comment: GFR calculated from serum creatinine value Chronic Kidney Disease less than 60 mL/min/1.73 m2 Kidney Failure less than 15 mL/min/1.73 m2 Note: effective 10/17/2022: 2020 CKD-EPI Equation used 06/17/2024 5:50 AM CDT 06/17/2024 5:50 AM CDT Shantell Lewis MD LAB BLOOD ORDERAB LES Performing Organization Address [facility] de Phone Number [facility] [address] [place] [id number] * (ABNORMAL) Basic metabolic panel (06/17/2024 5:50 AM CDT) Sodium 136 135 - 145 mEq/L 06/17/2024 6:35 AM T [facility] Potassium 4.1 3.5 - 5.1 mEq/L 06/17/2024 6:35 AM T [facility] Chloride 101 98 - 107 mEq/L 06/17/2024 6:35 AM T [facility] CO2 32(H) 22 - 31 mmol/L 06/17/2024 6:35 AM T [facility] Creatinine 1.14 0.60 - 1.40 mg/dL 06/17/2024 6:35 AM T [facility] BUN 22 5 - 25 mg/dL 06/17/2024 6:35 AM T [facility] Glucose 135(H) 70 - 100 mg/dL 06/17/2024 6:35 AM T [facility] Calcium, Total,S 8.9 8.4 - 10.2 mg/dL 06/17/2024 6:35 AM [facility] Anion Gap 3(L) 4 - 13 06/17/2024 6:35 AM [facility] Comment: The anion gap is calculated with the following formula: AGAP = Na ? (Cl + CO2). Fasting? Yes 06/17/2024 6:16 AM T [facility] Blood (Blood, Venous) 06/17/2024 5:50 AM CDT 06/17/2024 6:16 AM CDT Shantell Lewis MD LAB BLOOD ORDERAB LES [facility] [address] [place] [address] * (ABNORMAL) CBC ([facility] [employer]) (06/17/2024 5:50 AM CDT) WBC 10.5 3.5 - 10.5 K/uL 06/17/2024 6:18 AM [facility] RBC 5.18 4.30 - 5.70 M/uL 06/17/2024 6:18 AM [facility] Hemoglobin 15.2 13.5 - 17.5 g/dL 06/17/2024 6:18 AM [facility] Hematocrit 47.8 38.0 - 50.0 % 06/17/2024 6:18 AM [facility] Platelets 376 150 - 450 K/uL 06/17/2024 6:18 AM [facility] MCV 92.3 81.2 - 95.1 fL 06/17/2024 6:18 AM [facility] MCH 29.3 26.0 - 32.0 pg 06/17/2024 6:18 AM [facility] MCHC 31.8(L) 32.0 - 36.0 g/dL 06/17/2024 6:18 AM [facility] RDW 14.6 11.8 - 15.6 % 06/17/2024 6:18 AM [facility] NRBC %, Automated 0 % 06/17/2024 6:18 AM [facility] NRBC Absolute, Autmated 0.00 K/uL 06/17/2024 6:18 AM [facility] Comment: 0-4 Days: 0.01 -0.02 >=5 Days: 0.00 Blood (Blood, Venous) 06/17/2024 5:50 AM CDT 06/17/2024 6:16 AM CDT Shantell Lewis MD LAB BLOOD ORDERAB LES [facility] [address] [place] [address] * (ABNORMAL) POCT Precision glucose (06/16/2024 10:04 PM CDT) [facility] Signature Glucose Blood, POC 125(H) 70 - 100 mg/dL 06/16/2024 10:08 PM CDT [facility] Comment: Meter ID: [id number] Capillary whole blood specimens should not be [...] PM CDT 06/16/2024 10:08 PM CDT Pina Méndez MD LAB POINT OF CARE TE ST DOCKED DEVICE UNSOLICITED RESULTS Performing Organization Address [facility] de Phone Number [facility] [address] [place], [place] [phone] * (ABNORMAL) POCT Precision glucose (06/16/2024 4:39 PM CDT) Glucose Blood, POC 273(H) 70 - 100 mg/dL 06/16/2024 4:39 PM CDT [facility] Comment: Meter ID: [id number] Capillary whole blood specimens should not be [...] PM CDT 06/16/2024 4:40 PM CDT Pina Méndez MD LAB POINT OF CARE TE ST DOCKED DEVICE UNSOLICITED RESULTS Performing Organization Address [facility] Co de Phone Number [facility] [address] [place], [place] [phone] * (ABNORMAL) POCT Precision glucose (06/16/2024 11:20 AM CDT) Glucose Blood, POC 262(H) 70 - 100 mg/dL 06/16/2024 11:22 AM CDT [facility] Comment: Meter ID: [id number] Capillary whole blood specimens should not be [...] AM CDT 06/16/2024 11:22 AM CDT Pina Méndez MD LAB POINT OF CARE TE ST DOCKED DEVICE UNSOLICITED RESULTS Performing Organization Address [facility] Phone Number [facility] [address] [place], [place] [phone] * (ABNORMAL) POCT Precision glucose (06/16/2024 6:55 AM CDT) Glucose Blood, POC 121(H) 70 - 100 mg/dL 06/16/2024 6:56 AM CDT [facility] Comment: Meter ID: [id number] Capillary whole blood specimens should not be [...] AM CDT 06/16/2024 6:57 AM CDT Pina Méndez MD LAB POINT OF CARE TE ST DOCKED DEVICE UNSOLICITED RESULTS Performing Organization Address [facility] Co de Phone Number [facility] [address] [place], [place] [phone] * Estimated Glomerular Filtration Rate (eGFR) (06/16/2024 6:08 AM CDT) Estimated Glomerular Filtration Rate (eGFR) >60 06/16/2024 8:26 AM [facility] Comment: GFR calculated from serum creatinine value Chronic Kidney Disease less than 60 mL/min/1.73 m2 Kidney Failure less than 15 mL/min/1.73 m2 Note: effective 10/17/2022: 2020 CKD-EPI Equation used 06/16/2024 6:08 AM CDT 06/16/2024 6:08 AM T Shantell Lewis MD LAB BLOOD ORDERAB LES [facility] [address] [place] [address] * (ABNORMAL) Basic metabolic panel (06/16/2024 6:08 AM T) Sodium 136 135 - 145 mEq/L 06/16/2024 8:26 AM [facility] Potassium 4.3 3.5 - 5.1 mEq/L 06/16/2024 8:26 AM [facility] Chloride 100 98 - 107 mEq/L 06/16/2024 8:26 AM [facility] CO2 30 22 - 31 mmol/L 06/16/2024 8:26 AM [facility] Creatinine 1.13 0.60 - 1.40 mg/dL 06/16/2024 8:26 AM [facility] BUN 20 5 - 25 mg/dL 06/16/2024 8:26 AM [facility] Glucose 116(H) 70 - 100 mg/dL 06/16/2024 8:26 AM [facility] Calcium, Total,S 9.1 8.4 - 10.2 mg/dL 06/16/2024 8:26 AM [facility] Anion Gap 6 4 - 13 06/16/2024 8:26 AM [facility] Comment: The anion gap is calculated with the following formula: AGAP = Na ? (Cl + CO2). Fasting? Unknown 06/16/2024 6:38 AM [facility] Blood (Blood, Venous) 06/16/2024 6:08 AM CDT 06/16/2024 6:37 AM CDT Shantell Lewis MD LAB BLOOD ORDERAB LES [facility] [address] [place] [address] * CBC ([facility] [employer]) (06/16/2024 6:08 AM CDT) WBC 10.2 3.5 - 10.5 K/uL 06/16/2024 6:52 AM T [facility] RBC 5.36 4.30 - 5.70 M/uL 06/16/2024 6:52 AM T [facility] Hemoglobin 15.9 13.5 - 17.5 g/dL 06/16/2024 6:52 AM [facility] Hematocrit 48.9 38.0 - 50.0 % 06/16/2024 6:52 AM [facility] Platelets 369 150 - 450 K/uL 06/16/2024 6:52 AM [facility] MCV 91.2 81.2 - 95.1 fL 06/16/2024 6:52 AM [facility] MCH 29.7 26.0 - 32.0 pg 06/16/2024 6:52 AM [facility] MCHC 32.5 32.0 - 36.0 g/dL 06/16/2024 6:52 AM [facility] RDW 14.7 11.8 - 15.6 % 06/16/2024 6:52 AM [facility] NRBC %, Automated 0 % 06/16/2024 6:52 AM [facility] NRBC Absolute, Autmated 0.00 K/uL 06/16/2024 6:52 AM [facility] Comment: 0-4 Days: 0.01 -0.02 >=5 Days: 0.00 Blood (Blood, Venous) 06/16/2024 6:08 AM CDT 06/16/2024 6:37 AM CDT Shantell Lewis MD LAB BLOOD ORDERAB LES Performing Organization Address [facility] Co de Phone Number [facility] [address] [place] [phone] * (ABNORMAL) POCT Precision glucose (06/15/2024 11:19 PM CDT) Glucose Blood, POC 232(H) 70 - 100 mg/dL 06/15/2024 11:19 PM CDT [facility] Comment: Meter ID: [id number] Capillary whole blood specimens should not be [...] PM CDT 06/15/2024 11:20 PM CDT Pina Méndez MD LAB POINT OF CARE TE ST DOCKED DEVICE UNSOLICITED RESULTS Performing Organization Address [facility] de Phone Number [facility] [address] [place] [phone] * X-ray chest 1 view (06/15/2024 8:09 [...] Pina Méndez MD IMG XR PROCEDURES * (ABNORMAL) POCT Precision glucose (06/15/2024 6:59 PM CDT) [facility] Glucose Blood, POC 107(H) 70 - 100 mg/dL 06/15/2024 6:59 PM CDT [facility] Comment: Meter ID: [id number] Capillary whole blood specimens should not be [...] PM CDT 06/15/2024 7:00 PM CDT Pina Méndez MD LAB POINT OF CARE TE ST DOCKED DEVICE UNSOLICITED RESULTS [facility] [address] [place] [address] * X-ray chest 1 view (06/15/2024 6:50 PM CDT) Anatomical Region Laterality Modality Body, Chest, Lung Digital Radi[employer] ashutosh 06/15/2024 7:15 PM CDT Pina Méndez MD IMG XR PROCEDURES * Vascular Line Placement (06/15/2024 6:00 PM CDT) Narrative Evelyn Aguilar BSN - 06/15/2024 6:00 PM CDT Evelyn Aguilar BSN ? 06/15/2024 ??7:11 PM Vascular Access Insertion ?? Procedure Information Procedure performed: PICC Reason for insertion: intravenous antibiotics Current IV access: peripheral IV Inserting Clinician: Pediatric Physical Therapy Assistant: DAX QUILES RN,CRNI Inserting RN: EVELYN AGUILAR RN Preanesthetic Checklist Completed: patient identified, [...] PM Catheter Fr Size: 3 Lot #: [id number] Number of lumens: single lumen Analgesia used: [...] Méndez MD IN CLINIC/BEDSIDE PE RFORMABLES * (ABNORMAL) POCT Precision glucose (06/15/2024 11:15 AM CDT) Glucose Blood, POC 221(H) 70 - 100 mg/dL 06/15/2024 11:15 AM CDT [facility] Comment: Meter ID: [id number] Capillary whole blood specimens should not be [...] AM CDT 06/15/2024 11:16 AM CDT Pina Méndez MD LAB POINT OF CARE TE ST DOCKED DEVICE UNSOLICITED RESULTS [facility] [address] [place] [address] * (ABNORMAL) POCT Precision glucose (06/15/2024 7:21 AM CDT) Glucose Blood, POC 135(H) 70 - 100 mg/dL 06/15/2024 7:21 AM CDT [facility] Comment: Meter ID: [id number] Capillary whole blood specimens should not be [...] AM CDT 06/15/2024 7:22 AM CDT Pina Méndez MD LAB POINT OF CARE TE ST DOCKED DEVICE UNSOLICITED RESULTS Performing Organization Address [facility] Co de Phone Number [facility] [address] [place] [phone] * Estimated Glomerular Filtration Rate (eGFR) (06/15/2024 6:00 AM CDT) Estimated Glomerular Filtration Rate (eGFR) >60 06/15/2024 6:16 AM CDT [facility] Comment: GFR calculated from serum creatinine value Chronic Kidney Disease less than 60 mL/min/1.73 m2 Kidney Failure less than 15 mL/min/1.73 m2 Note: effective 10/17/2022: 2020 CKD-EPI Equation used 06/15/2024 6:00 AM CDT 06/15/2024 6:00 AM CDT Shantell Lewis MD LAB BLOOD ORDERAB LES Performing Organization Address [facility] de Phone Number [facility] [address] [place], [place] [phone] * (ABNORMAL) Basic metabolic panel (06/15/2024 6:00 AM CDT) Sodium 136 135 - 145 mEq/L 06/15/2024 6:16 AM T [facility] Potassium 4.0 3.5 - 5.1 mEq/L 06/15/2024 6:16 AM T [facility] Chloride 100 98 - 107 mEq/L 06/15/2024 6:16 AM T [facility] CO2 30 22 - 31 mmol/L 06/15/2024 6:16 AM T [facility] Creatinine 1.05 0.60 - 1.40 mg/dL 06/15/2024 6:16 AM T [facility] BUN 17 5 - 25 mg/dL 06/15/2024 6:16 AM [facility] Glucose 117(H) 70 - 100 mg/dL 06/15/2024 6:16 AM [facility] Calcium, Total,S 8.8 8.4 - 10.2 mg/dL 06/15/2024 6:16 AM [facility] Anion Gap 6 4 - 13 06/15/2024 6:16 AM [facility] Comment: The anion gap is calculated with the following formula: AGAP = Na ? (Cl + CO2). Fasting? Yes 06/15/2024 6:05 AM [facility] Blood (Blood, Venous) 06/15/2024 6:00 AM CDT 06/15/2024 6:05 AM T Shantell Lewis MD LAB BLOOD ORDERAB LES Performing Organization Address City/State/[facility] Co de Phone Number [facility] [address] [place], [place] [phone] * (ABNORMAL) CBC ([facility] [employer]) (06/15/2024 6:00 AM CDT) WBC 11.5(H) 3.5 - 10.5 K/uL 06/15/2024 6:06 AM [facility] RBC 5.04 4.30 - 5.70 M/uL 06/15/2024 6:06 AM [facility] Hemoglobin 14.9 13.5 - 17.5 g/dL 06/15/2024 6:06 AM [facility] Hematocrit 46.2 38.0 - 50.0 % 06/15/2024 6:06 AM [facility] Platelets 358 150 - 450 K/uL 06/15/2024 6:06 AM [facility] MCV 91.7 81.2 - 95.1 fL 06/15/2024 6:06 AM [facility] MCH 29.6 26.0 - 32.0 pg 06/15/2024 6:06 AM [facility] MCHC 32.3 32.0 - 36.0 g/dL 06/15/2024 6:06 AM CDT [facility] RDW 14.9 11.8 - 15.6 % 06/15/2024 6:06 AM CDT [facility] NRBC %, Automated 0 % 06/15/2024 6:06 AM CDT [facility] NRBC Absolute, Autmated 0.00 K/uL 06/15/2024 6:06 AM CDT [facility] Comment: 0-4 Days: 0.01 -0.02 >=5 Days: 0.00 Blood (Blood, Venous) 06/15/2024 6:00 AM CDT 06/15/2024 6:05 AM CDT Shantell Lewis MD LAB BLOOD ORDERAB LES Performing Organization Address [facility]/ZIP Co de Phone Number [facility] [address] [place] [address] * (ABNORMAL) POCT Precision glucose (06/14/2024 9:23 PM CDT) Glucose Blood, POC 352(H) 70 - 100 mg/dL 06/14/2024 9:24 PM CDT [facility] Comment: Meter ID: [id number] Capillary whole blood specimens should not be [...] PM CDT 06/14/2024 9:24 PM CDT Pina Méndez MD LAB POINT OF CARE TE ST DOCKED DEVICE UNSOLICITED RESULTS Performing Organization Address [facility]/ZIP Co de Phone Number [facility] [address] [place] [phone] * POCT Precision glucose (06/14/2024 5:47 PM CDT) Glucose Blood, POC 94 70 - 100 mg/dL 06/14/2024 5:47 PM CDT [facility] Comment: Meter ID: [id number] Capillary whole blood specimens should not be [...] PM CDT 06/14/2024 5:48 PM CDT Pina Méndez MD LAB POINT OF CARE TE ST DOCKED DEVICE UNSOLICITED RESULTS Performing Organization Address [facility] de Phone Number [facility] [address] [place], [place] [phone] * (ABNORMAL) POCT Precision glucose (06/14/2024 11:13 AM CDT) Glucose Blood, POC 154(H) 70 - 100 mg/dL 06/14/2024 11:13 AM CDT [facility] Comment: Meter ID: [id number] Capillary whole blood specimens should not be [...] AM CDT 06/14/2024 11:13 AM CDT Pina Méndez MD LAB POINT OF CARE TE ST DOCKED DEVICE UNSOLICITED RESULTS Performing Organization Address [facility] Co de Phone Number [facility] [address] [place] [phone] * (ABNORMAL) POCT Precision glucose (06/14/2024 6:27 AM CDT) Glucose Blood, POC 139(H) 70 - 100 mg/dL 06/14/2024 6:28 AM CDT [facility] Comment: Meter ID: [id number] Capillary whole blood specimens should not be [...] AM CDT 06/14/2024 6:29 AM CDT Pina Méndez MD LAB POINT OF CARE TE ST DOCKED DEVICE UNSOLICITED RESULTS Performing Organization Address [facility] Co de Phone Number [facility] [address] [place], [place] [phone] * Estimated Glomerular Filtration Rate (eGFR) (06/14/2024 5:45 AM CDT) [facility] Estimated Glomerular Filtration Rate (eGFR) >60 06/14/2024 6:28 AM CDT [facility] Comment: GFR calculated from serum creatinine value Chronic Kidney Disease less than 60 mL/min/1.73 m2 Kidney Failure less than 15 mL/min/1.73 m2 Note: effective 10/17/2022: 2020 CKD-EPI Equation used 06/14/2024 5:45 AM CDT 06/14/2024 5:45 AM CDT Shantell Lewis MD LAB BLOOD ORDERAB LES Performing Organization Address City/[facility]/ZIP Co de Phone Number [facility] [address] [place], [place] [phone] * (ABNORMAL) Basic metabolic panel (06/14/2024 5:45 AM CDT) [facility] Sodium 138 135 - 145 mEq/L 06/14/2024 6:28 AM CDT [facility] Potassium 4.2 3.5 - 5.1 mEq/L 06/14/2024 6:28 AM [facility] Chloride 101 98 - 107 mEq/L 06/14/2024 6:28 AM T [facility] CO2 31 22 - 31 mmol/L 06/14/2024 6:28 AM [facility] Creatinine 1.03 0.60 - 1.40 mg/dL 06/14/2024 6:28 AM [facility] BUN 20 5 - 25 mg/dL 06/14/2024 6:28 AM [facility] Glucose 142(H) 70 - 100 mg/dL 06/14/2024 6:28 AM [facility] Calcium, Total,S 8.9 8.4 - 10.2 mg/dL 06/14/2024 6:28 AM [facility] Anion Gap 6 4 - 13 06/14/2024 6:28 AM [facility] Comment: The anion gap is calculated with the following formula: AGAP = Na ? (Cl + CO2). Fasting? Yes 06/14/2024 6:13 AM [facility] Blood (Blood, Venous) 06/14/2024 5:45 AM CDT 06/14/2024 6:13 AM CDT Shantell Lewis MD LAB BLOOD ORDERAB LES [facility] [address] [place] [phone] * (ABNORMAL) CBC ([facility]) (06/14/2024 5:45 AM CDT) WBC 12.1(H) 3.5 - 10.5 K/uL 06/14/2024 6:21 AM T [facility] RBC 5.04 4.30 - 5.70 M/uL 06/14/2024 6:21 AM T [facility] Hemoglobin 15.1 13.5 - 17.5 g/dL 06/14/2024 6:21 AM T [facility] Hematocrit 47.3 38.0 - 50.0 % 06/14/2024 6:21 AM T [facility] Platelets 396 150 - 450 K/uL 06/14/2024 6:21 AM T [facility] MCV 93.8 81.2 - 95.1 fL 06/14/2024 6:21 AM T [facility] MCH 30.0 26.0 - 32.0 pg 06/14/2024 6:21 AM T [facility] MCHC 31.9(L) 32.0 - 36.0 g/dL 06/14/2024 6:21 AM T [facility] RDW 15.2 11.8 - 15.6 % 06/14/2024 6:21 AM [facility] NRBC %, Automated 0 % 06/14/2024 6:21 AM [facility] NRBC Absolute, Autmated 0.00 K/uL 06/14/2024 6:21 AM [facility] Comment: 0-4 Days: 0.01 -0.02 >=5 Days: 0.00 Blood (Blood, Venous) 06/14/2024 5:45 AM CDT 06/14/2024 6:13 AM CDT Shantell Lewis MD LAB BLOOD ORDERAB LES [facility] [address] [place] [address] * (ABNORMAL) POCT Precision glucose (06/13/2024 8:59 PM CDT) [facility] Signature Glucose Blood, POC 257(H) 70 - 100 mg/dL 06/13/2024 8:59 PM CDT [facility] Comment: Meter ID: [id number] Capillary whole blood specimens should not be [...] PM CDT 06/13/2024 8:59 PM CDT Pina Méndez MD LAB POINT OF CARE TE ST DOCKED DEVICE UNSOLICITED RESULTS Performing Organization Address [facility] Co de Phone Number [facility] [address] [place], [place] [phone] * POCT Precision glucose (06/13/2024 5:36 PM CDT) Glucose Blood, POC 98 70 - 100 mg/dL 06/13/2024 5:36 PM CDT [facility] Comment: Meter ID: [id number] Capillary whole blood specimens should not be [...] PM CDT 06/13/2024 5:36 PM CDT Pina Méndez MD LAB POINT OF CARE TE ST DOCKED DEVICE UNSOLICITED RESULTS Performing Organization Address [facility] Co de Phone Number [facility] [address] [place] [phone] * (ABNORMAL) POCT Precision glucose (06/13/2024 11:48 AM CDT) Glucose Blood, POC 273(H) 70 - 100 mg/dL 06/13/2024 11:48 AM CDT [facility] Comment: Meter ID: [id number] Capillary whole blood specimens should not be [...] DOCKED DEVICE UNSOLICITED RESULTS Performing Organization Address [facility] de Phone Number [facility] [address] [place], [place] [phone] * (ABNORMAL) POCT Precision glucose (06/13/2024 6:37 AM CDT) Glucose Blood, POC 180(H) 70 - 100 mg/dL 06/13/2024 6:37 AM CDT [facility] Comment: Meter ID: [id number] Capillary whole blood specimens should not be [...] DOCKED DEVICE UNSOLICITED RESULTS Performing Organization Address [facility] de Phone Number [facility] [address] [place] [phone] * Estimated Glomerular Filtration Rate (eGFR) (06/13/2024 5:00 AM CDT) Estimated Glomerular Filtration Rate (eGFR) >60 06/13/2024 5:48 AM CDT [facility] Comment: GFR calculated from serum creatinine value Chronic Kidney Disease less than 60 mL/min/1.73 m2 Kidney Failure less than 15 mL/min/1.73 m2 Note: effective 10/17/2022: 2020 CKD-EPI Equation used 06/13/2024 5:00 AM CDT 06/13/2024 5:00 AM CDT Shantell Lewis MD LAB BLOOD ORDERAB LES Performing Organization Address City/[facility]/ZIP Co de Phone Number [facility] [address] [place] [address] * (ABNORMAL) Basic metabolic panel (06/13/2024 5:00 AM CDT) Sodium 135 135 - 145 mEq/L 06/13/2024 5:48 AM T [facility] Potassium 4.0 3.5 - 5.1 mEq/L 06/13/2024 5:48 AM T [facility] Chloride 102 98 - 107 mEq/L 06/13/2024 5:48 AM [facility] CO2 29 22 - 31 mmol/L 06/13/2024 5:48 AM [facility] Creatinine 1.21 0.60 - 1.40 mg/dL 06/13/2024 5:48 AM [facility] BUN 26(H) 5 - 25 mg/dL 06/13/2024 5:48 AM [facility] Glucose 188(H) 70 - 100 mg/dL 06/13/2024 5:48 AM [facility] Calcium, Total,S 8.7 8.4 - 10.2 mg/dL 06/13/2024 5:48 AM [facility] Anion Gap 4 4 - 13 06/13/2024 5:48 AM [facility] Comment: The anion gap is calculated with the following formula: AGAP = Na ? (Cl + CO2). Fasting? Yes 06/13/2024 5:23 AM [facility] Blood (Blood, Venous) 06/13/2024 5:00 AM CDT 06/13/2024 5:23 AM CDT Shantell Lewis MD LAB BLOOD ORDERAB LES Performing Organization Address City/[facility]/ZIP Co de Phone Number [facility] [address] [place] [address] * (ABNORMAL) CBC ([employer]) (06/13/2024 5:00 AM CDT) [facility] WBC 16.2(H) 3.5 - 10.5 K/uL 06/13/2024 5:33 AM T [facility] RBC 5.00 4.30 - 5.70 M/uL 06/13/2024 5:33 AM [facility] Hemoglobin 14.8 13.5 - 17.5 g/dL 06/13/2024 5:33 AM [facility] Hematocrit 46.7 38.0 - 50.0 % 06/13/2024 5:33 AM [facility] Platelets 382 150 - 450 K/uL 06/13/2024 5:33 AM [facility] MCV 93.4 81.2 - 95.1 fL 06/13/2024 5:33 AM [facility] MCH 29.6 26.0 - 32.0 pg 06/13/2024 5:33 AM [facility] MCHC 31.7(L) 32.0 - 36.0 g/dL 06/13/2024 5:33 AM [facility] RDW 15.2 11.8 - 15.6 % 06/13/2024 5:33 AM [facility] NRBC %, Automated 0 % 06/13/2024 5:33 AM [facility] NRBC Absolute, Autmated 0.00 K/uL 06/13/2024 5:33 AM [facility] Comment: 0-4 Days: 0.01 -0.02 >=5 Days: 0.00 Blood (Blood, Venous) 06/13/2024 5:00 AM CDT 06/13/2024 5:23 AM CDT Shantell Lewis MD LAB BLOOD ORDERAB LES [facility] [address] [place] [address] * (ABNORMAL) POCT Precision glucose (06/13/2024 12:06 AM CDT) [facility] Glucose Blood, POC 292(H) 70 - 100 mg/dL 06/13/2024 12:07 AM CDT [facility] Comment: Meter ID: [id number] Capillary whole blood specimens should not be [...] DOCKED DEVICE UNSOLICITED RESULTS Performing Organization Address [facility] Co de Phone Number [facility] [address] [place], [place] [phone] * (ABNORMAL) POCT Precision glucose (06/12/2024 7:12 PM CDT) [facility] Glucose Blood, POC 161(H) 70 - 100 mg/dL 06/12/2024 7:12 PM CDT [facility] Comment: Meter ID: [id number] Capillary whole blood specimens should not be [...] DOCKED DEVICE UNSOLICITED RESULTS Performing Organization Address [facility] Co de Phone Number [facility] [address] [place] [phone] * (ABNORMAL) POCT Precision glucose (06/12/2024 6:32 PM CDT) Glucose Blood, POC 120(H) 70 - 100 mg/dL 06/12/2024 6:33 PM CDT [facility] Comment: Meter ID: [id number] Capillary whole blood specimens should not be [...] DOCKED DEVICE UNSOLICITED RESULTS Performing Organization Address [facility] Co de Phone Number [facility] [address] [place] [address] * Tissue Culture, Anaerobic (06/12/2024 5:05 PM CDT) [facility] Tissue Culture, Anaerobic No Anaerobes isolated in 7 days 06/19/2024 12:28 PM CDT [facility] Gram Stain No organisms seen. No WBC's seen. 06/13/2024 12:19 PM CDT [facility] Swab (Foot, Right) 06/12/2024 5:05 PM CDT Angel SILVA LAB MICROBIOLOGY - G ENERAL ORDERABLES Performing Organization Address [facility] Co de Phone Number [facility] [address] [place] [phone] * (ABNORMAL) Tissue culture, aerobic (06/12/2024 5:04 PM CDT) [facility] Gram Stain No organisms seen. No WBC's seen. 06/13/2024 12:20 PM CDT [facility] Tissue Culture, Aerobic Staphylococcus aureus Many Use oxacillin interpretation to predict results for anti-staphylococc al beta-lactam antibiotics (except ceftaroline). (A) 06/15/2024 8:41 AM CDT [facility] Swab (Foot, Right) 06/12/2024 5:04 PM CDT Narrative Organism Antibiotic Method Susceptibility Staphylococcus aureus Clindamycin <=0.5 mcg/mL: Susceptible Staphylococcus aureus Erythromycin <=0.5 mcg/mL: Susceptible Staphylococcus aureus Oxacillin 0.5 mcg/mL: Susceptible Staphylococcus aureus Tetracycline <=4 mcg/mL: Susceptible Staphylococcus aureus Trimeth/Sulfa <=0.5/9.5 mcg/mL: Susceptible Angel Coombs [facility] MICROBIOLOGY - G ENERAL ORDERABLES [facility] [address] [place] [address] * (ABNORMAL) POCT Precision glucose (06/12/2024 11:59 AM CDT) Glucose Blood, POC 177(H) 70 - 100 mg/dL 06/12/2024 12:00 PM CDT [facility] Comment: Meter ID: [id number] Capillary whole blood specimens should not be [...] OF CARE TEST DOCKED DEVICE UNSOLICITED RESULTS [facility] [address] [place] [address] * Estimated Glomerular Filtration Rate (eGFR) (06/12/2024 5:40 AM CDT) Estimated Glomerular Filtration Rate (eGFR) >60 06/12/2024 6:15 AM CDT [facility] Comment: GFR calculated from serum creatinine value Chronic Kidney Disease less than 60 mL/min/1.73 m2 Kidney Failure less than 15 mL/min/1.73 m2 Note: effective 10/17/2022: 2020 CKD-EPI Equation used 06/12/2024 5:40 AM CDT 06/12/2024 5:40 AM CDT Steve Lopez DPM LAB BLOOD ORDERABLES [facility] [address] [place] [address] * (ABNORMAL) Basic metabolic panel (06/12/2024 5:40 AM CDT) Sodium 137 135 - 145 mEq/L 06/12/2024 6:15 AM [facility] Potassium 4.2 3.5 - 5.1 mEq/L 06/12/2024 6:15 AM [facility] Chloride 103 98 - 107 mEq/L 06/12/2024 6:15 AM [facility] CO2 29 22 - 31 mmol/L 06/12/2024 6:15 AM [facility] Creatinine 1.13 0.60 - 1.40 mg/dL 06/12/2024 6:15 AM [facility] BUN 25 5 - 25 mg/dL 06/12/2024 6:15 AM [facility] Glucose 172(H) 70 - 100 mg/dL 06/12/2024 6:15 AM [facility] Calcium, Total,S 9.2 8.4 - 10.2 mg/dL 06/12/2024 6:15 AM [facility] Anion Gap 5 4 - 13 06/12/2024 6:15 AM [facility] Comment: The anion gap is calculated with the following formula: AGAP = Na ? (Cl + CO2). Fasting? Yes 06/12/2024 5:58 AM [facility] Blood (Blood, Venous) 06/12/2024 5:40 AM CDT 06/12/2024 5:57 AM CDT Shantell Lewis MD LAB BLOOD ORDERAB LES [facility] [address] [place] [address] * (ABNORMAL) CBC (H[facility] [employer]) (06/12/2024 5:40 AM CDT) WBC 14.4(H) 3.5 - 10.5 K/uL 06/12/2024 5:59 AM CDT [facility] RBC 5.22 4.30 - 5.70 M/uL 06/12/2024 5:59 AM CDT [facility] Hemoglobin 15.5 13.5 - 17.5 g/dL 06/12/2024 5:59 AM CDT [facility] Hematocrit 48.2 38.0 - 50.0 % 06/12/2024 5:59 AM CDT [facility] Platelets 396 150 - 450 K/uL 06/12/2024 5:59 AM CDT [facility] MCV 92.3 81.2 - 95.1 fL 06/12/2024 5:59 AM T [facility] MCH 29.7 26.0 - 32.0 pg 06/12/2024 5:59 AM T [facility] MCHC 32.2 32.0 - 36.0 g/dL 06/12/2024 5:59 AM T [facility] RDW 15.1 11.8 - 15.6 % 06/12/2024 5:59 AM T [facility] NRBC %, Automated 0 % 06/12/2024 5:59 AM T [facility] NRBC Absolute, Autmated 0.00 K/uL 06/12/2024 5:59 AM T [facility] Comment: 0-4 Days: 0.01 -0.02 >=5 Days: 0.00 Blood (Blood, Venous) 06/12/2024 5:40 AM CDT 06/12/2024 5:57 AM CDT Shantell Lewis MD LAB BLOOD ORDERAB LES Performing Organization Address [facility]/ZIP Co de Phone Number [facility] [address] [place] [phone] * (ABNORMAL) POCT Precision glucose (06/11/2024 9:29 PM CDT) Glucose Blood, POC 300(H) 70 - 100 mg/dL 06/11/2024 9:39 PM CDT [facility] Comment: Meter ID: [id number] Capillary whole blood specimens should not be [...] DOCKED DEVICE UNSOLICITED RESULTS Performing Organization Address [facility] Co de Phone Number [facility] [address] [place] [address] * (ABNORMAL) POCT Precision glucose (06/11/2024 4:47 PM CDT) Glucose Blood, POC 257(H) 70 - 100 mg/dL 06/11/2024 4:48 PM CDT [facility] Comment: Meter ID: [id number] Capillary whole blood specimens should not be [...] DOCKED DEVICE UNSOLICITED RESULTS Performing Organization Address City/[facility]/ZIP Co de Phone Number [facility] [address] [place] [phone] * (ABNORMAL) POCT Precision glucose (06/11/2024 11:29 AM CDT) Glucose Blood, POC 252(H) 70 - 100 mg/dL 06/11/2024 11:29 AM CDT [facility] Comment: Meter ID: [id number] Capillary whole blood specimens should not be [...] DOCKED DEVICE UNSOLICITED RESULTS Performing Organization Address [facility] Co de Phone Number [facility] [address] [place] [phone] * (ABNORMAL) POCT Precision glucose (06/11/2024 7:34 AM CDT) Glucose Blood, POC 168(H) 70 - 100 mg/dL 06/11/2024 7:35 AM CDT [facility] Comment: Meter ID: [id number] Capillary whole blood specimens should not be [...] DOCKED DEVICE UNSOLICITED RESULTS Performing Organization Address [facility]/ZIP Co de Phone Number [facility] [address] [place] [address] * Estimated Glomerular Filtration Rate (eGFR) (06/11/2024 6:10 AM CDT) Estimated Glomerular Filtration Rate (eGFR) >60 06/11/2024 7:10 AM T [facility] Comment: GFR calculated from serum creatinine value Chronic Kidney Disease less than 60 mL/min/1.73 m2 Kidney Failure less than 15 mL/min/1.73 m2 Note: effective 10/17/2022: 2020 CKD-EPI Equation used 06/11/2024 6:10 AM CDT 06/11/2024 6:10 AM CDT Steve SILVA LAB BLOOD ORDERABLES Performing Organization Address [facility] Co de Phone Number [facility] [address] [place] [address] * (ABNORMAL) Basic metabolic panel (06/11/2024 6:10 AM CDT) Pathologist [facility] Sodium 138 135 - 145 mEq/L 06/11/2024 7:10 AM [facility] Potassium 4.2 3.5 - 5.1 mEq/L 06/11/2024 7:10 AM [facility] Chloride 104 98 - 107 mEq/L 06/11/2024 7:10 AM [facility] CO2 25 22 - 31 mmol/L 06/11/2024 7:10 AM [facility] Creatinine 1.20 0.60 - 1.40 mg/dL 06/11/2024 7:10 AM [facility] BUN 24 5 - 25 mg/dL 06/11/2024 7:10 AM [facility] Glucose 173(H) 70 - 100 mg/dL 06/11/2024 7:10 AM [facility] Calcium, Total,S 9.5 8.4 - 10.2 mg/dL 06/11/2024 7:10 AM T [facility] Anion Gap 9 4 - 13 06/11/2024 7:10 AM [facility] Comment: The anion gap is calculated with the following formula: AGAP = Na ? (Cl + CO2). Fasting? Yes 06/11/2024 6:49 AM T [facility] Blood (Blood, Venous) 06/11/2024 6:10 AM CDT 06/11/2024 6:49 AM CDT Shantell Lewis MD LAB BLOOD ORDERAB LES [facility] [address] [place] [address] * (ABNORMAL) CBC (Heme [employer]) (06/11/2024 6:10 AM CDT) WBC 14.5(H) 3.5 - 10.5 K/uL 06/11/2024 6:53 AM [facility] RBC 5.09 4.30 - 5.70 M/uL 06/11/2024 6:53 AM [facility] Hemoglobin 15.3 13.5 - 17.5 g/dL 06/11/2024 6:53 AM [facility] Hematocrit 46.8 38.0 - 50.0 % 06/11/2024 6:53 AM [facility] Platelets 389 150 - 450 K/uL 06/11/2024 6:53 AM [facility] MCV 91.9 81.2 - 95.1 fL 06/11/2024 6:53 AM [facility] MCH 30.1 26.0 - 32.0 pg 06/11/2024 6:53 AM [facility] MCHC 32.7 32.0 - 36.0 g/dL 06/11/2024 6:53 AM [facility] RDW 15.3 11.8 - 15.6 % 06/11/2024 6:53 AM [facility] NRBC %, Automated 0 % 06/11/2024 6:53 AM CDT [facility] NRBC Absolute, Autmated 0.00 K/uL 06/11/2024 6:53 AM CDT [facility] Comment: 0-4 Days: 0.01 -0.02 >=5 Days: 0.00 Blood (Blood, Venous) 06/11/2024 6:10 AM CDT 06/11/2024 6:49 AM CDT Shantell Lewis MD LAB BLOOD ORDERAB LES Performing Organization Address [facility]/ZIP Co de Phone Number [facility] [address] [place] [address] * (ABNORMAL) POCT Precision glucose (06/10/2024 9:46 PM CDT) Glucose Blood, POC 149(H) 70 - 100 mg/dL 06/10/2024 9:46 PM CDT [facility] Comment: Meter ID: [id number] Capillary whole blood specimens should not be [...] OF CARE TEST DOCKED DEVICE UNSOLICITED RESULTS [facility] [address] [place] [address] * (ABNORMAL) POCT Precision glucose (06/10/2024 5:10 PM CDT) Glucose Blood, POC 230(H) 70 - 100 mg/dL 06/10/2024 5:10 PM CDT [facility] Comment: Meter ID: [id number] Capillary whole blood specimens should not be [...] DOCKED DEVICE UNSOLICITED RESULTS Performing Organization Address City/[facility]/ZIP Co de Phone Number [facility] [address] [place] [address] * (ABNORMAL) POCT Precision glucose (06/10/2024 11:33 AM CDT) Glucose Blood, POC 286(H) 70 - 100 mg/dL 06/10/2024 11:34 AM CDT [facility] Comment: Meter ID: [id number] Capillary whole blood specimens should not be [...] OF CARE TEST DOCKED DEVICE UNSOLICITED RESULTS [facility] [address] [place] [address] * (ABNORMAL) POCT Precision glucose (06/10/2024 6:31 AM CDT) Glucose Blood, POC 170(H) 70 - 100 mg/dL 06/10/2024 6:31 AM CDT [facility] Comment: Meter ID: [id number] Capillary whole blood specimens should not be [...] DOCKED DEVICE UNSOLICITED RESULTS Performing Organization Address [facility] Co de Phone Number [facility] [address] [place] [phone] * Estimated Glomerular Filtration Rate (eGFR) (06/10/2024 5:54 AM CDT) Estimated Glomerular Filtration Rate (eGFR) >60 06/10/2024 6:13 AM CDT [facility] Comment: GFR calculated from serum creatinine value Chronic Kidney Disease less than 60 mL/min/1.73 m2 Kidney Failure less than 15 mL/min/1.73 m2 Note: effective 10/17/2022: 2020 CKD-EPI Equation used 06/10/2024 5:54 AM CDT 06/10/2024 5:54 AM CDT Steve SILVA LAB BLOOD ORDERABLES Performing Organization Address [facility] Co de Phone Number [facility] [address] [place] [phone] * (ABNORMAL) Basic metabolic panel (06/10/2024 5:54 AM CDT) Sodium 138 135 - 145 mEq/L 06/10/2024 6:13 AM CDT [facility] Potassium 4.2 3.5 - 5.1 mEq/L 06/10/2024 6:13 AM CDT [facility] Chloride 107 98 - 107 mEq/L 06/10/2024 6:13 AM CDT [facility] CO2 24 22 - 31 mmol/L 06/10/2024 6:13 AM T [facility] Creatinine 1.23 0.60 - 1.40 mg/dL 06/10/2024 6:13 AM [facility] BUN 24 5 - 25 mg/dL 06/10/2024 6:13 AM [facility] Glucose 139(H) 70 - 100 mg/dL 06/10/2024 6:13 AM [facility] Calcium, Total,S 9.3 8.4 - 10.2 mg/dL 06/10/2024 6:13 AM [facility] Anion Gap 7 4 - 13 06/10/2024 6:13 AM [facility] Comment: The anion gap is calculated with the following formula: AGAP = Na ? (Cl + CO2). Fasting? Yes 06/10/2024 6:01 AM [facility] Blood (Blood, Venous) 06/10/2024 5:54 AM CDT 06/10/2024 6:01 AM CDT Shantell Lewis MD LAB BLOOD ORDERAB LES [facility] [address] [place] [address] * (ABNORMAL) CBC (Heme Group) (06/10/2024 5:54 AM CDT) WBC 15.2(H) 3.5 - 10.5 K/uL 06/10/2024 6:07 AM [facility] RBC 5.00 4.30 - 5.70 M/uL 06/10/2024 6:07 AM [facility] Hemoglobin 15.2 13.5 - 17.5 g/dL 06/10/2024 6:07 AM [facility] Hematocrit 47.1 38.0 - 50.0 % 06/10/2024 6:07 AM [facility] Platelets 347 150 - 450 K/uL 06/10/2024 6:07 AM [facility] MCV 94.2 81.2 - 95.1 fL 06/10/2024 6:07 AM CDT [facility] MCH 30.4 26.0 - 32.0 pg 06/10/2024 6:07 AM CDT [facility] MCHC 32.3 32.0 - 36.0 g/dL 06/10/2024 6:07 AM T [facility] RDW 15.6 11.8 - 15.6 % 06/10/2024 6:07 AM T [facility] NRBC %, Automated 0 % 06/10/2024 6:07 AM T [facility] NRBC Absolute, Autmated 0.00 K/uL 06/10/2024 6:07 AM T [facility] Comment: 0-4 Days: 0.01 -0.02 >=5 Days: 0.00 Blood (Blood, Venous) 06/10/2024 5:54 AM CDT 06/10/2024 6:01 AM CDT Shantell Lewis MD LAB BLOOD ORDERAB LES [facility] [address] [place] [address] * (ABNORMAL) POCT Precision glucose (06/09/2024 11:24 PM CDT) Glucose Blood, POC 141(H) 70 - 100 mg/dL 06/09/2024 11:24 PM CDT [facility] Comment: Meter ID: [id number] Capillary whole blood specimens should not be [...] DOCKED DEVICE UNSOLICITED RESULTS Performing Organization Address [facility] Co de Phone Number [facility] [address] [place] [phone] * (ABNORMAL) POCT Precision glucose (06/09/2024 6:27 PM CDT) [facility] Glucose Blood, POC 216(H) 70 - 100 mg/dL 06/09/2024 6:27 PM CDT [facility] Comment: Meter ID: [id number] Capillary whole blood specimens should not be [...] DOCKED DEVICE UNSOLICITED RESULTS Performing Organization Address [facility] Co de Phone Number [facility] [address] [place] [phone] * Vancomycin (06/09/2024 11:38 AM CDT) [facility] Vancomycin 22.9 mcg/mL 06/09/2024 2:13 PM CDT [facility] Comment: Target Therapeutic Levels: ? General ?? 10-15 mcg/mL ? Pneumonia 15-20 mcg/mL Last Dose Date 4 06/09/2024 2:14 PM CDT [facility] Last Dose Time 1010 AM 06/09/2024 2:14 PM CDT [facility] Blood (Blood, Venous) 06/09/2024 11:38 AM CDT 06/09/2024 11:49 AM CDT Shantell Lewis MD LAB BLOOD ORDERAB LES Performing Organization Address [facility] Co de Phone Number [facility] [address] [place] [phone] * (ABNORMAL) POCT Precision glucose (06/09/2024 11:00 AM CDT) [facility] Glucose Blood, POC 242(H) 70 - 100 mg/dL 06/09/2024 11:01 AM CDT [facility] Comment: Meter ID: [id number] Capillary whole blood specimens should not be [...] DOCKED DEVICE UNSOLICITED RESULTS Performing Organization Address [facility] Co de Phone Number [facility] [address] [place], [place] [phone] * MRSA, by PCR, Nasal (06/09/2024 9:50 AM CDT) [facility] MRSA PCR NASAL NOT DETECTED Not Detected 06/09/2024 11:20 AM CDT [facility] Comment: MRSA DNA is not detected. Testing performed on the [employer] GeneXpert utilizing the MRSA NxG assay (real-time polymerase chain reaction (PCR) for the amplification of MRSA with targets to mecA/mecC and SCCmec) Swab (Nasal) 06/09/2024 9:50 AM CDT 06/09/2024 10:07 AM CDT Shantell Lewis MD LAB MICROBIOLOGY - GENERAL ORDERABLES Performing Organization Address City/[facility]/ZIP Co de Phone Number [facility] [address] [place] [phone] * (ABNORMAL) POCT Precision glucose (06/09/2024 6:39 AM CDT) Pathologist [facility] Glucose Blood, POC 116(H) 70 - 100 mg/dL 06/09/2024 6:39 AM CDT [facility] Comment: Meter ID: [id number] Capillary whole blood specimens should not be [...] DOCKED DEVICE UNSOLICITED RESULTS Performing Organization Address [facility] Co de Phone Number [facility] [address] [place], [place] [phone] * Estimated Glomerular Filtration Rate (eGFR) (06/09/2024 6:05 AM CDT) [facility] Estimated Glomerular Filtration Rate (eGFR) >60 06/09/2024 6:49 AM CDT [facility] Comment: GFR calculated from serum creatinine value Chronic Kidney Disease less than 60 mL/min/1.73 m2 Kidney Failure less than 15 mL/min/1.73 m2 Note: effective 10/17/2022: 2020 CKD-EPI Equation used 06/09/2024 6:05 AM CDT 06/09/2024 6:05 AM CDT Steve SILVA LAB BLOOD ORDERABLES Performing Organization Address City/[facility]/ZIP Co de Phone Number [facility] [address] [place] [address] * (ABNORMAL) Basic metabolic panel (06/09/2024 6:05 AM CDT) [facility] Sodium 137 135 - 145 mEq/L 06/09/2024 6:49 AM [facility] Potassium 4.2 3.5 - 5.1 mEq/L 06/09/2024 6:49 AM [facility] Chloride 108(H) 98 - 107 mEq/L 06/09/2024 6:49 AM T [facility] CO2 24 22 - 31 mmol/L 06/09/2024 6:49 AM [facility] Creatinine 1.21 0.60 - 1.40 mg/dL 06/09/2024 6:49 AM [facility] BUN 29(H) 5 - 25 mg/dL 06/09/2024 6:49 AM [facility] Glucose 113(H) 70 - 100 mg/dL 06/09/2024 6:49 AM [facility] Calcium, Total,S 9.2 8.4 - 10.2 mg/dL 06/09/2024 6:49 AM [facility] Anion Gap 5 4 - 13 06/09/2024 6:49 AM [facility] Comment: The anion gap is calculated with the following formula: AGAP = Na ? (Cl + CO2). Fasting? Yes 06/09/2024 6:32 AM [facility] Blood (Blood, Venous) 06/09/2024 6:05 AM CDT 06/09/2024 6:31 AM T Shantell Lewis MD LAB BLOOD ORDERAB LES [facility] [address] [place] [address] * (ABNORMAL) CBC ([employer]) (06/09/2024 6:05 AM CDT) WBC 13.8(H) 3.5 - 10.5 K/uL 06/09/2024 6:37 AM [facility] RBC 5.05 4.30 - 5.70 M/uL 06/09/2024 6:37 AM [facility] Hemoglobin 14.9 13.5 - 17.5 g/dL 06/09/2024 6:37 AM [facility] Hematocrit 47.0 38.0 - 50.0 % 06/09/2024 6:37 AM [facility] Platelets 334 150 - 450 K/uL 06/09/2024 6:37 AM [facility] MCV 93.1 81.2 - 95.1 fL 06/09/2024 6:37 AM [facility] MCH 29.5 26.0 - 32.0 pg 06/09/2024 6:37 AM [facility] MCHC 31.7(L) 32.0 - 36.0 g/dL 06/09/2024 6:37 AM [facility] RDW 15.4 11.8 - 15.6 % 06/09/2024 6:37 AM [facility] NRBC %, Automated 0 % 06/09/2024 6:37 AM [facility] NRBC Absolute, Autmated 0.00 K/uL 06/09/2024 6:37 AM [facility] Comment: 0-4 Days: 0.01 -0.02 >=5 Days: 0.00 Blood (Blood, Venous) 06/09/2024 6:05 AM CDT 06/09/2024 6:31 AM CDT Shantell Lewis MD LAB BLOOD ORDERAB LES [facility] [address] [place] [address] * (ABNORMAL) POCT Precision glucose (06/08/2024 9:53 PM CDT) [facility] Glucose Blood, POC 168(H) 70 - 100 mg/dL 06/08/2024 9:53 PM T [facility] Comment: Meter ID: [id number] Capillary whole blood specimens should not be [...] DOCKED DEVICE UNSOLICITED RESULTS Performing Organization Address [facility] Co de Phone Number [facility] [address] [place], [place] [phone] * (ABNORMAL) POCT Precision glucose (06/08/2024 3:44 PM CDT) [facility] Signature Glucose Blood, POC 104(H) 70 - 100 mg/dL 06/08/2024 3:45 PM CDT [facility] Comment: Meter ID: [id number] Capillary whole blood specimens should not be [...] DOCKED DEVICE UNSOLICITED RESULTS Performing Organization Address [facility] Co de Phone Number [facility] [address] [place] [address] * Mini C-arm Fluoroscopy up to 1 [...] POCT Precision glucose (06/08/2024 3:08 PM CDT) Glucose Blood, POC 73 70 - 100 mg/dL 06/08/2024 3:08 PM CDT [facility] Comment: Meter ID: [id number] Capillary whole blood specimens should not be [...] OF CARE TEST DOCKED DEVICE UNSOLICITED RESULTS [facility] [address] [place] [address] * Pathology (06/08/2024 2:11 PM CDT) Tissue (Toe, Right) 06/08/2024 2:11 PM CDT Tissue (Foot, Right) 06/08/2024 2:38 PM CDT Narrative [facility] - 06/19/2024 2:53 PM CDT ? [facility] ? [address] ?[place] [address] ? Patient: ?KARIN FUNG ? Procedure: ? 06/08/2024 14:11 /Age/Sex: ??1955, 69 Y, M ?Received: ?06/09/2024 08:04 ?Accession #: ?? [id number] Billing: ?[id number] ? Patient Location: Discharged Ordered by: ?? STEVE LOPEZ DPM ? Attending: ? PINA MÉNDEZ MD ?SURGICAL PATHOLOGY FINAL REPORT COPY TO: STEVE LOPEZ DPM SPECIMEN: (A) TOES, NON-TRAUMATIC AMPUTATION, RIGHT 2ND TOE (B) BONE FRAGMENT(S), OTHER THAN PATHOLOGIC FRACTURE, RIGHT 2ND METATARSAL HEAD CLINICAL INFORMATION: Infection of right foot. 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 GROSS DESCRIPTION: The [...] specimen is submitted into decal on 06/09/2024. Mechanical Project Engineer sections are submitted into cassettes [id number] on [...] in cassette B1 on 06/18/2024. [facility] ([facility]) Patient's identification labels match on requisition [...] Steve Lopez DPM LAB PATHOLOGY [place] [facility] [address] [place] [address] * Tissue Culture, Anaerobic (06/08/2024 2:10 PM CDT) Arvin Kaur Tissue Culture, Anaerobic No Anaerobes isolated in 7 days 06/15/2024 1:22 PM CDT [facility] Gram Stain Few gram positive cocci, pairs and clusters. Few WBC'S. 06/09/2024 11:56 AM CDT [facility] Swab (Toe, Right) 06/08/2024 2:10 PM CDT Steve Lopez [facility] MICROBIOLOGY - G ENERAL ORDERABLES Performing Organization Address [facility] Co de Phone Number [facility] [address] [place] [phone] * (ABNORMAL) Tissue culture, aerobic (06/08/2024 2:10 PM CDT) Gram Stain Rare gram positive cocci, pairs. Rare WBC'S. 06/09/2024 11:54 AM CDT [facility] Tissue Culture, Aerobic Staphylococcus aureus Many Use oxacillin interpretation to predict results for anti-staphylococc al beta-lactam antibiotics (except ceftaroline). (A) 06/10/2024 11:05 AM CDT [facility] Swab (Toe, Right) 06/08/2024 2:10 PM CDT Narrative Organism Antibiotic Method Susceptibility Staphylococcus aureus Clindamycin <=0.5 mcg/mL: Susceptible Staphylococcus aureus Erythromycin <=0.5 mcg/mL: Susceptible Staphylococcus aureus Oxacillin <=0.25 mcg/mL: Susceptible Staphylococcus aureus Tetracycline <=4 mcg/mL: Susceptible Staphylococcus aureus Trimeth/Sulfa <=0.5/9.5 mcg/mL: Susceptible Steve Lopez [facility] MICROBIOLOGY - G ENERAL ORDERABLES Performing Organization Address [facility] Co de Phone Number [facility] [address] [place] [phone] * POCT Precision glucose (06/08/2024 12:30 PM CDT) Glucose Blood, POC 83 70 - 100 mg/dL 06/08/2024 12:30 PM CDT [facility] Comment: Meter ID: [id number] Capillary whole blood specimens should not be [...] DOCKED DEVICE UNSOLICITED RESULTS Performing Organization Address [facility] de Phone Number [facility] [address] [place], [place] [phone] * POCT Precision glucose (06/08/2024 8:45 AM CDT) Glucose Blood, POC 81 70 - 100 mg/dL 06/08/2024 8:45 AM CDT [facility] Comment: Meter ID: [id number] Capillary whole blood specimens should not be [...] DOCKED DEVICE UNSOLICITED RESULTS Performing Organization Address [facility] de Phone Number [facility] [address] [place] [address] * POCT Precision glucose (06/08/2024 7:08 AM CDT) Glucose Blood, POC 80 70 - 100 mg/dL 06/08/2024 7:08 AM CDT [facility] Comment: Meter ID: [id number] Capillary whole blood specimens should not be [...] DOCKED DEVICE UNSOLICITED RESULTS Performing Organization Address [facility] de Phone Number [facility] [address] [place] [address] * (ABNORMAL) Estimated Glomerular Filtration Rate (eGFR) (06/08/2024 6:05 AM CDT) Estimated Glomerular Filtration Rate (eGFR) 58(A) 06/08/2024 7:07 AM CDT [facility] Comment: GFR calculated from serum creatinine value Chronic Kidney Disease less than 60 mL/min/1.73 m2 Kidney Failure less than 15 mL/min/1.73 m2 Note: effective 10/17/2022: 2020 CKD-EPI Equation used 06/08/2024 6:05 AM CDT 06/08/2024 6:05 AM CDT Shantell Lewis MD LAB BLOOD ORDERAB LES Performing Organization Address [facility] de Phone Number [facility] [address] [place], [place] [phone] * (ABNORMAL) Basic metabolic panel (06/08/2024 6:05 AM CDT) Sodium 138 135 - 145 mEq/L 06/08/2024 7:07 AM T [facility] Potassium 3.9 3.5 - 5.1 mEq/L 06/08/2024 7:07 AM T [facility] Chloride 109(H) 98 - 107 mEq/L 06/08/2024 7:07 AM T [facility] CO2 21(L) 22 - 31 mmol/L 06/08/2024 7:07 AM T [facility] Creatinine 1.33 0.60 - 1.40 mg/dL 06/08/2024 7:07 AM T [facility] BUN 36(H) 5 - 25 mg/dL 06/08/2024 7:07 AM [facility] Glucose 84 70 - 100 mg/dL 06/08/2024 7:07 AM [facility] Calcium, Total,S 8.9 8.4 - 10.2 mg/dL 06/08/2024 7:07 AM [facility] Anion Gap 8 4 - 13 06/08/2024 7:07 AM [facility] Comment: The anion gap is calculated with the following formula: AGAP = Na ? (Cl + CO2). Fasting? Yes 06/08/2024 6:57 AM [facility] Blood (Blood, Venous) 06/08/2024 6:05 AM CDT 06/08/2024 6:56 AM CDT Shantell Lewis MD LAB BLOOD ORDERAB LES Performing Organization Address City/State/[facility] Co de Phone Number [facility] [address] [place] [phone] * (ABNORMAL) CBC (Heme Group) (06/08/2024 6:05 AM CDT) WBC 14.2(H) 3.5 - 10.5 K/uL 06/08/2024 6:58 AM [facility] RBC 4.80 4.30 - 5.70 M/uL 06/08/2024 6:58 AM [facility] Hemoglobin 14.5 13.5 - 17.5 g/dL 06/08/2024 6:58 AM [facility] Hematocrit 44.6 38.0 - 50.0 % 06/08/2024 6:58 AM [facility] Platelets 298 150 - 450 K/uL 06/08/2024 6:58 AM [facility] MCV 92.9 81.2 - 95.1 fL 06/08/2024 6:58 AM [facility] MCH 30.2 26.0 - 32.0 pg 06/08/2024 6:58 AM [facility] MCHC 32.5 32.0 - 36.0 g/dL 06/08/2024 6:58 AM CDT [facility] RDW 15.1 11.8 - 15.6 % 06/08/2024 6:58 AM CDT [facility] NRBC %, Automated 0 % 06/08/2024 6:58 AM CDT [facility] NRBC Absolute, Autmated 0.00 K/uL 06/08/2024 6:58 AM CDT [facility] Comment: 0-4 Days: 0.01 -0.02 >=5 Days: 0.00 Blood (Blood, Venous) 06/08/2024 6:05 AM CDT 06/08/2024 6:56 AM CDT Shantell Lewis MD LAB BLOOD ORDERAB LES Performing Organization Address [facility] Co de Phone Number [facility] [address] [place] [address] * (ABNORMAL) POCT Precision glucose (06/07/2024 11:05 PM CDT) [facility] Signature Glucose Blood, POC 141(H) 70 - 100 mg/dL 06/07/2024 11:05 PM CDT [facility] Comment: Meter ID: [id number] Capillary whole blood specimens should not be [...] DOCKED DEVICE UNSOLICITED RESULTS Performing Organization Address [facility] Co de Phone Number [facility] [address] [place], [place] [phone] * POCT Precision glucose (06/07/2024 5:42 PM CDT) Glucose Blood, POC 95 70 - 100 mg/dL 06/07/2024 5:42 PM CDT [facility] Comment: Meter ID: [id number] Capillary whole blood specimens should not be [...] DOCKED DEVICE UNSOLICITED RESULTS Performing Organization Address [facility] Number [facility] [address] [place] [phone] * POCT Precision glucose (06/07/2024 12:04 PM CDT) [facility] Signature Glucose Blood, POC 92 70 - 100 mg/dL 06/07/2024 12:04 PM CDT [facility] Comment: Meter ID: [id number] Capillary whole blood specimens should not be [...] DOCKED DEVICE UNSOLICITED RESULTS Performing Organization Address [facility] de Phone Number [facility] [address] [place] [phone] * POCT Precision glucose (06/07/2024 7:17 AM CDT) Glucose Blood, POC 99 70 - 100 mg/dL 06/07/2024 7:17 AM CDT [facility] Comment: Meter ID: [id number] Capillary whole blood specimens should not be [...] DOCKED DEVICE UNSOLICITED RESULTS Performing Organization Address [facility] Co de Phone Number [facility] [address] [place], [place] [phone] * (ABNORMAL) Estimated Glomerular Filtration Rate (eGFR) (06/07/2024 5:13 AM CDT) [facility] Estimated Glomerular Filtration Rate (eGFR) 40(A) 06/07/2024 5:46 AM CDT [facility] Comment: GFR calculated from serum creatinine value Chronic Kidney Disease less than 60 mL/min/1.73 m2 Kidney Failure less than 15 mL/min/1.73 m2 Note: effective 10/17/2022: 2020 CKD-EPI Equation used 06/07/2024 5:13 AM CDT 06/07/2024 5:13 AM CDT Shantell Lewis MD LAB BLOOD ORDERAB LES [facility] [address] [place] [address] * (ABNORMAL) Basic metabolic panel (06/07/2024 5:13 AM CDT) [facility] Sodium 138 135 - 145 mEq/L 06/07/2024 5:46 AM CDT [facility] Potassium 4.0 3.5 - 5.1 mEq/L 06/07/2024 5:46 AM [facility] Chloride 107 98 - 107 mEq/L 06/07/2024 5:46 AM [facility] CO2 22 22 - 31 mmol/L 06/07/2024 5:46 AM [facility] Creatinine 1.81(H) 0.60 - 1.40 mg/dL 06/07/2024 5:46 AM [facility] BUN 55(H) 5 - 25 mg/dL 06/07/2024 5:46 AM [facility] Glucose 125(H) 70 - 100 mg/dL 06/07/2024 5:46 AM [facility] Calcium, Total,S 9.1 8.4 - 10.2 mg/dL 06/07/2024 5:46 AM [facility] Anion Gap 9 4 - 13 06/07/2024 5:46 AM [facility] Comment: The anion gap is calculated with the following formula: AGAP = Na ? (Cl + CO2). Fasting? Yes 06/07/2024 5:19 AM [facility] Blood (Blood, Venous) 06/07/2024 5:13 AM CDT 06/07/2024 5:18 AM CDT Shantell Lewis MD LAB BLOOD ORDERAB LES [facility] [address] [place], [place] [phone] * (ABNORMAL) CBC (Heme Group) (06/07/2024 5:13 AM CDT) WBC 16.4(H) 3.5 - 10.5 K/uL 06/07/2024 5:39 AM [facility] RBC 4.95 4.30 - 5.70 M/uL 06/07/2024 5:39 AM [facility] Hemoglobin 14.8 13.5 - 17.5 g/dL 06/07/2024 5:39 AM [facility] Hematocrit 45.4 38.0 - 50.0 % 06/07/2024 5:39 AM T [facility] Platelets 281 150 - 450 K/uL 06/07/2024 5:39 AM T [facility] MCV 91.7 81.2 - 95.1 fL 06/07/2024 5:39 AM T [facility] MCH 29.9 26.0 - 32.0 pg 06/07/2024 5:39 AM T [facility] MCHC 32.6 32.0 - 36.0 g/dL 06/07/2024 5:39 AM T [facility] RDW 15.1 11.8 - 15.6 % 06/07/2024 5:39 AM [facility] NRBC %, Automated 0 % 06/07/2024 5:39 AM [facility] NRBC Absolute, Autmated 0.00 K/uL 06/07/2024 5:39 AM [facility] Comment: 0-4 Days: 0.01 -0.02 >=5 Days: 0.00 Blood (Blood, Venous) 06/07/2024 5:13 AM CDT 06/07/2024 5:18 AM CDT Shantell Lewis MD LAB BLOOD ORDERAB LES [facility] [address] [place] [address] * Vancomycin (06/07/2024 5:13 AM CDT) Vancomycin 9.6 mcg/mL 06/07/2024 7:00 AM T [facility] Comment: Target Therapeutic Levels: ? General ?? 10-15 mcg/mL ? Pneumonia 15-20 mcg/mL Last Dose Date 4 06/07/2024 7:02 AM T [facility] Last Dose Time 1040 06/07/2024 7:02 AM T [facility] Blood (Blood, Venous) 06/07/2024 5:13 AM CDT 06/07/2024 5:18 AM CDT Shantell Lewis MD LAB BLOOD ORDERAB LES Performing Organization Address [facility] de Phone Number [facility] [address] [place] [phone] * (ABNORMAL) POCT Precision glucose (06/06/2024 10:25 PM CDT) Glucose Blood, POC 220(H) 70 - 100 mg/dL 06/06/2024 10:25 PM CDT [facility] Comment: Meter ID: [id number] Capillary whole blood specimens should not be [...] DOCKED DEVICE UNSOLICITED RESULTS Performing Organization Address [facility] de Phone Number [facility] [address] [place] [phone] * (ABNORMAL) POCT Precision glucose (06/06/2024 6:15 PM CDT) Glucose Blood, POC 229(H) 70 - 100 mg/dL 06/06/2024 6:16 PM CDT [facility] Comment: Meter ID: [id number] Capillary whole blood specimens should not be [...] DOCKED DEVICE UNSOLICITED RESULTS Performing Organization Address [facility] de Phone Number [facility] [address] [place] [address] * (ABNORMAL) POCT Precision glucose (06/06/2024 1:56 PM CDT) [facility] Signature Glucose Blood, POC 249(H) 70 - 100 mg/dL 06/06/2024 1:56 PM CDT [facility] Comment: Meter ID: [id number] Capillary whole blood specimens should not be [...] DOCKED DEVICE UNSOLICITED RESULTS Performing Organization Address [facility] de Phone Number [facility] [address] [place] [phone] * MRI foot right wo IV contrast [...] For Patients: As a result of the Century Cures Act, medical imagingexams and procedure reports [...] Signed) Lazaro Chin APRN, CNP IMG MRI HI OCEDURES * (ABNORMAL) Estimated Glomerular Filtration Rate (eGFR) (06/06/2024 10:00 AM CDT) Estimated Glomerular Filtration Rate (eGFR) 26(A) 06/06/2024 10:27 AM CDT [facility] Comment: GFR calculated from serum creatinine value Chronic Kidney Disease less than 60 mL/min/1.73 m2 Kidney Failure less than 15 mL/min/1.73 m2 Note: effective 10/17/2022: 2020 CKD-EPI Equation used 06/06/2024 10:0 0 AM CDT 06/06/2024 10:00 AM CDT Lazaro Chin APRN, CNP LAB BLOOD ORDERABLES [facility] [address] [place] [address] * Morphology (06/06/2024 10:00 AM CDT) Slide Review PERFORMED 06/06/2024 10:30 AM CDT [facility] RBC Morphology NORMAL 06/06/2024 10:30 AM CDT [facility] PLT Morphology ADEQUATE 06/06/2024 10:30 AM CDT [facility] 06/06/2024 10:0 0 AM CDT 06/06/2024 10:04 AM CDT Lazaro Chin APRN, CNP LAB BODY F LUIDS AND STOOLS ORDERABLES Performing Organization Address [facility] Co de Phone Number [facility] [address] [place] [phone] * Reflexed Manual Diff (06/06/2024 10:00 AM CDT) Manual Differential PERFORMED 06/06/2024 10:30 AM CDT [facility] Total Counted 100 06/06/2024 10:29 AM CDT [facility] 06/06/2024 10:0 0 AM CDT 06/06/2024 10:04 AM CDT Lazaro Chin APRN, CNP LAB BLOOD ORDERABLES Performing Organization Address [facility] Phone Number [facility] [address] [place] [address] * Blood gas, venous (06/06/2024 10:00 AM CDT) pH, Jorge 7.37 7.32 - 7.43 06/06/2024 10:14 AM CDT [facility] pCO2, Jorge 44 41 - 54 mm Hg 06/06/2024 10:14 AM CDT [facility] HCO3, Venous 25.4 22.0 - 29.0 mmol/L 06/06/2024 10:14 AM CDT [facility] Base Excess/Deficit Venous -0.2 -2.0 - 3.0 mmol/L 06/06/2024 10:14 AM CDT [facility] Blood (Blood, Venous) 06/06/2024 10:00 AM CDT 06/06/2024 10:04 AM CDT Lazaro Chni APRN, CNP LAB BLOOD ORDERABLES Performing Organization Address [facility] Co de Phone Number [facility] [address] [place] [address] * (ABNORMAL) Procalcitonin (06/06/2024 10:00 AM CDT) Procalcitonin 1.34(H) 0.00 - 0.07 ng/mL 06/06/2024 11:18 AM CDT [facility] Comment: The results from this test [...] CNP LAB BLOOD ORDERABLES Performing Organization Address [facility] Co de Phone Number [facility] [address] [place] [address] * (ABNORMAL) C-reactive protein (06/06/2024 10:00 AM CDT) CRP >320.0(H) 0.0 - 4.9 mg/L 06/06/2024 10:32 AM CDT [facility] Blood (Blood, Venous) 06/06/2024 10:00 AM CDT 06/06/2024 10:04 AM CDT Wade [facility] - 06/06/2024 10:32 AM CDT Called to Gely Jay, BUN 78, RBA , [phone], 10:27 06/06/2024 [id number] Lazaro Chin APRN, CNP LAB BLOOD ORDERABLES Performing Organization Address City/[facility]/ZIP Co de Phone Number [facility] [address] [place] [address] * (ABNORMAL) Protime-INR (06/06/2024 10:00 AM CDT) Protime 19.0(H) 9.4 - 12.5 seconds 06/06/2024 10:17 AM CDT [facility] INR 1.6 06/06/2024 10:17 AM CDT [facility] Comment: Suggested INR Therapeutic Ranges* Intensity ?Standard ?Higher ? 2.0-3.0 ? 2.5-3.5 *Target INR should be individualized. Occasionally,INR range 3.0-4.5 may be appropriate. Higher intensity INR: Mechanical heart valve, etc. Blood (Blood, Venous) 06/06/2024 10:00 AM CDT 06/06/2024 10:04 AM CDT Lazaro Chin APRN, BABY FORMULA MIXER LAB BLOOD ORDERABLES [facility] [address] [place] [address] * (ABNORMAL) Magnesium (06/06/2024 10:00 AM CDT) Magnesium 2.5(H) 1.6 - 2.3 mg/dL 06/06/2024 10:27 AM CDT [facility] Blood (Blood, Venous) 06/06/2024 10:00 AM CDT 06/06/2024 10:04 AM CDT Narrative [facility] - 06/06/2024 10:27 AM CDT Called to Gely Jay, BUN 78, RBA , [phone], 10:27 06/06/2024 [id number] Lazaro Chin APRN, CNP LAB BLOOD ORDERABLES Performing Organization Address City/[facility]/ZIP Co de Phone Number [facility] [address] [place] [phone] * (ABNORMAL) Hemoglobin A1c (06/06/2024 10:00 AM CDT) Hemoglobin A1C 9.0(H) 4.0 - 5.6 % A1C 06/08/2024 2:29 AM CDT [facility] Comment: Reference Range 4.0-5.6% is for [...] CNP LAB BLOOD ORDERABLES Performing Organization Address [facility] Co de Phone Number [facility] [address] [place] [phone] * Lactate, plasma (06/06/2024 10:00 AM CDT) Lactate 1.3 0.5 - 2.0 mmol/L 06/06/2024 10:20 AM CDT [facility] Blood (Blood, Venous) 06/06/2024 10:00 AM CDT 06/06/2024 10:04 AM CDT aLzaro Chin APRN, CNP LAB BLOOD ORDERABLES Performing Organization Address City/[facility]/ZIP Co de Phone Number [facility] [address] [place] [address] * (ABNORMAL) Basic metabolic panel (06/06/2024 10:00 AM CDT) Sodium 134(L) 135 - 145 mEq/L 06/06/2024 10:27 AM [facility] Potassium 4.5 3.5 - 5.1 mEq/L 06/06/2024 10:27 AM [facility] Chloride 98 98 - 107 mEq/L 06/06/2024 10:27 AM [facility] CO2 24 22 - 31 mmol/L 06/06/2024 10:27 AM [facility] Creatinine 2.61(H) 0.60 - 1.40 mg/dL 06/06/2024 10:27 AM [facility] BUN 78(HH) 5 - 25 mg/dL 06/06/2024 10:27 AM [facility] Glucose 254(H) 70 - 100 mg/dL 06/06/2024 10:27 AM [facility] Calcium, Total,S 9.6 8.4 - 10.2 mg/dL 06/06/2024 10:27 AM [facility] Anion Gap 12 4 - 13 06/06/2024 10:27 AM [facility] Comment: The anion gap is calculated with the following formula: AGAP = Na ? (Cl + CO2). Fasting? Unknown 06/06/2024 10:04 AM [facility] Blood (Blood, Venous) 06/06/2024 10:00 AM CDT 06/06/2024 10:04 AM T [facility] - 06/06/2024 10:27 AM CDT Called to Gely Jay, BUN 78, RBA , [id number], 10:27 06/06/2024 [id number] Lazaro Chin APRN, [employer] LAB BLOOD ORDERABLES [facility] [address] [place] [address] * (ABNORMAL) CBC auto differential (06/06/2024 10:00 AM CDT) WBC 21.3(H) 3.5 - 10.5 K/uL 06/06/2024 10:30 AM [facility] RBC 5.56 4.30 - 5.70 M/uL 06/06/2024 10:30 AM [facility] Hemoglobin 16.7 13.5 - 17.5 g/dL 06/06/2024 10:30 AM [facility] Hematocrit 51.3(H) 38.0 - 50.0 % 06/06/2024 10:30 AM [facility] Platelets 302 150 - 450 K/uL 06/06/2024 10:30 AM [facility] MCV 92.3 81.2 - 95.1 fL 06/06/2024 10:30 AM [facility] MCH 30.0 26.0 - 32.0 pg 06/06/2024 10:30 AM [facility] MCHC 32.6 32.0 - 36.0 g/dL 06/06/2024 10:30 AM [facility] RDW 14.7 11.8 - 15.6 % 06/06/2024 10:30 AM [facility] NRBC %, Automated 0 % 06/06/2024 10:30 AM [facility] NRBC Absolute, Autmated 0.00 K/uL 06/06/2024 10:30 AM [facility] Comment: 0-4 Days: 0.01 -0.02 >=5 Days: 0.00 Neutrophils 91.0 % 06/06/2024 10:29 AM [facility] Absolute Neutrophils 19.4(H) 1.7 - 7.0 K/uL 06/06/2024 10:30 AM [facility] Lymphocytes % 3.0 % 06/06/2024 10:29 AM [facility] Absolute Lymphocytes 0.6(L) 0.9 - 2.9 K/uL 06/06/2024 10:30 AM [facility] Monocytes % 5.0 % 06/06/2024 10:29 AM [facility] Monocytes Absolute 1.1(H) 0.3 - 0.9 K/uL 06/06/2024 10:30 AM T [facility] Eosinophils 1.0 % 06/06/2024 10:29 AM [facility] Absolute Eosinophils 0.2 0.1 - 0.5 K/uL 06/06/2024 10:30 AM [facility] Basophils 0.0 % 06/06/2024 10:29 AM [facility] Absolute Basophils 0.0 0.0 - 0.1 K/uL 06/06/2024 10:30 AM [facility] Immature Leukocytes 0.0 % 06/06/2024 10:29 AM [facility] Immature Leukocytes Absolute 0.00 0.00 - 0.04 K/uL 06/06/2024 10:30 AM [facility] Blood (Blood, Venous) 06/06/2024 10:00 AM CDT 06/06/2024 10:04 AM CDT Lazaro Chin APRN, CNP LAB BLOOD ORDERABLES Performing Organization Address City/[facility]/ZIP Co de Phone Number [facility] [address] [place] [address] * (ABNORMAL) APTT (06/06/2024 10:00 AM CDT) [facility] aPTT 40(H) 28 - 37 seconds 06/06/2024 10:17 AM T [facility] Comment: Therapeutic range for unfractionated heparin = 50-90 seconds Blood (Blood, Venous) 06/06/2024 10:00 AM CDT 06/06/2024 10:04 AM CDT Lazaro Chin APRN, CNP LAB BLOOD ORDERABLES [facility] [address] [place] [phone] * Covid-19, Mcelroy ID Now, PCR symptomatic (06/06/2024 9:55 AM CDT) [facility] Covid Source Nasal 06/06/2024 10:34 AM CDT [facility] Covid-19, ID Now PCR NEGATIVE Negative 06/06/2024 10:34 AM CDT [facility] Comment: Negative results should be treated as presumptive and, if inconsistent with clinical signs and symptoms or necessary for patient management, should be tested with an alternative molecular assay. Testing was performed using the Mcelroy ID NOW COVID-19 2.0 assay. Swab (Nasal) 06/06/2024 9:55 AM CDT 06/06/2024 10:34 AM CDT Lazaro Chin APRN, CNP LAB MOLECU LAR DIAGNOSTICS ORDERABLES Performing Organization Address [facility] Co de Phone Number [facility] [address] [place] [address] * Tissue Culture, Anaerobic (06/06/2024 9:36 AM CDT) Tissue Culture, Anaerobic No Anaerobes isolated in 7 days 06/13/2024 10:21 AM CDT [facility] Gram Stain No organisms seen. No WBC's seen. 06/06/2024 2:38 PM CDT [facility] Tissue, Anaerobic (Foot, Right) 06/06/2024 9:36 AM CDT 06/06/2024 11:09 AM CDT Comment:Anaerobic Tissue Cul ture Lazaro Chin APRN, CNP LAB MICROB IOLOGY - GENERAL ORDERABLES Performing Organization Address [facility] Co de Phone Number [facility] [address] [place], [place] [phone] * (ABNORMAL) Tissue culture, aerobic (06/06/2024 9:36 AM CDT) Gram Stain No organisms seen. No WBC's seen. 06/06/2024 2:38 PM CDT [facility] Tissue Culture, Aerobic Staphylococcus aureus Use oxacillin interpretation to predict results for anti-staphylococc al beta-lactam antibiotics (except ceftaroline). (A) 06/08/2024 7:11 AM CDT [facility] Tissue, Aerobic (Foot, Right) 06/06/2024 9:36 AM CDT 06/06/2024 11:09 AM CDT Comment:Tissue Culture Aerob ic Narrative Organism Antibiotic Method Susceptibility Staphylococcus aureus Clindamycin <=0.5 mcg/mL: Susceptible Staphylococcus aureus Erythromycin <=0.5 mcg/mL: Susceptible Staphylococcus aureus Oxacillin <=0.25 mcg/mL: Susceptible Staphylococcus aureus Tetracycline <=4 mcg/mL: Susceptible Staphylococcus aureus Trimeth/Sulfa <=0.5/9.5 mcg/mL: Susceptible Lazaro Chin APRN, [employer] LAB MICROB IOLOGY - GENERAL ORDERABLES [facility] [address] [place] [address] documented in this encounter Visit Diagnoses Diagnosis [...] line placement Longstanding persistent atrial fibrillation (HCC) Infection of right foot documented in this encounter Admitting Diagnoses Diagnosis [...] 10 days, Do not crush or chew. bupivacaine (MARCAINE) 0.5 % injection As needed, Starting on Sat06/12/24 at 1711, Intraprocedure Given 06/12/2024 5:11 PM CDT 20 mL Right Foot carvedilol (COREG) tablet 25 mg 25 mg, Oral, 2 times daily with meals, First dose on Sat06/14/24 at 1800, For 10 days Given 06/17/2024 7:36 AM CDT 25 mg Given 06/16/2024 5:42 PM CDT 25 mg Given 06/16/2024 7:32 AM CDT 25 mg dextrose (GLUTOSE) oral gel 40% (1 Tube [...] 70 mg/dL. dilTIAZem (CARDIZEM) immediate release tablet 60 mg [...] Given 06/14/2024 2:28 AM CDT 60 mg diphenhydrAMINE (BENADRYL) tablet 25 mg 25 mg, Oral, Every 6 hours PRN, itching, Starting on Sat06/10/24 at 1408, For 10 days Given 06/10/2024 4:38 PM CDT 25 mg Glucagon HCl (rDNA) injection 1 mg 1 [...] application Back insulin glargine (LANTUS) inj pen 20 Units [...] CDT 4 Units Le ft Lower Abdomen oxyCODONE (ROXICODONE) 5 MG/5ML solution 10 mg [...] ordered. Given 06/17/2024 8:19 AM CDT 10 m g Given 06/16/2024 10:14 PM CDT 10 mg [...] Given 06/11/2024 9:18 PM CDT 5 mg traMADol (ULTRAM) tablet 50 mg 50 mg, [...] Given 06/10/2024 7:51 PM CDT 50 mg documented in this encounter Active and Recently [...] 40 mg, Oral, Daily, First dose on 06/07/24 at 0900, For 9 doses 08 (Given - Provider: RAJESH Dee) atorvastatin (LIPITOR) tablet 40 mg 40 mg, Oral, Daily, First dose (after last reorder) on Sat06/16/24 at 0900, For 5 days 0935 (Given - Provider: Rachael Anna RN) 0814 (Given - Provider: Domi Mcdonald, SHARI) carvedilol (COREG) tablet 25 mg 25 mg, Oral, 2 times daily with meals, First dose on 06/14/24 at 1800, For 10 days 0718 (Given - Provider: RAJESH Dee)1803 (Given - Provider: RAJESH Vidal) 0732 (Given - Provider: Rachael Anna RN)1742 (Given - Provider: Alice Rogers RN) 0736 (Given - Provider: Domi Mcdonald RN) dilTIAZem (CARDIZEM) immediate release tablet 60 mg 60 mg, Oral, Every 6 hours, First dose (after last modification) on Sat06/10/24 at 1500, For 37 doses, Unless administering down a feeding tube, do not split, crush, or chew tablets., On hold since Sat06/14/2024 at 1524 until manually unheld 0300 (Dose Auto Held - Provider: Pina Méndez MD)0900 (Dose Auto Held - Provider: Pina Méndez MD)1500 (Dose Auto Held - Provider: Pina Méndez MD)2100 (Dose Auto Held - Provider: Pina Méndez MD) 0300 (Dose Auto Held - Provider: Pina Méndez MD)0900 (Dose Auto Held - Provider: Pina Méndez MD)1500 (Dose Auto Held - Provider: Pina Méndez MD)2100 (Dose Auto Held - Provider: Pina Méndez MD) 0300 (Dose Auto Held - Provider: Pina Méndez MD)0900 (Dose Auto Held - Provider: Pina Méndez MD)1658 (Unheld by provider - Provider: Automatic Discharge Provider) enoxaparin (LOVENOX) syringe 40 mg (CANCELED) 40 mg, Subcutaneous, Every 24 hours scheduled, First dose on Sat06/13/24 at 0900, For 5 days, Indications: Prophylaxis of Venous Thromboembolism 0828 (Given - Provider: RAJESH Dee) ertapenem (INVanz) 1 g in sodium chloride 0.9 % 50 mL [id number] Plus (COMPLETED) 1 g, Intravenous, at 100 mL/hr, Administer over 30 Minutes, Every 24 hours, First dose on Sat06/09/24 at 1630, For 9 doses, Indication: Osteomyelitis 1617 (New Bag - Provider: RAJESH Vidal) 1639 (New Bag - Provider: Alice Rogers RN) 1207 (New Bag - Provider: Domi Mcdonald, SHARI) hydrocortisone 2.5 % ointment Topical, 2 times daily, First dose on Sat06/14/24 at 1030, For 10 days 1008 (Given - Provider: RAJESH Dee)210 (Given - Provider: RAJESH Vidal) 1017 (Not Given - Provider: Rachael Anna, RN - Reason: Patient/family refused)2051 (Given - Provider: Emiliana Chaparro, RN) 0842 (Given - Provider: Domi Mcdonald, RN) insulin glargine (LANTUS) inj pen 20 Units 20 Units, Subcutaneous, Nightly, First dose (after last modification) on 06/13/24 at 2100, For 5 doses, Target 0.1-0.5 units/kg based on patient's insulin sensitivity, long acting/total daily insulin ratio. 2323 (Given - Provider: RAJESH Vidal) 220 (Given - Provider: Emiliana Chaparro, SHARI) insulin lispro (HumaLOG) injection 1-10 Units 1-10 [...] ordering guidance and correction scales. Link provided. 08 (Not Given - Provider: RAJESH Dee - Reason: Contraindicated)1253 (Given - Provider: RAJESH Dee)191 (Not Given - Provider: RAJESH Vidal - Reason: Order parameters not met) 1019 (Not Given - Provider: Rachael Anna, RN - Reason: See Provider Order - Comment: BG 121)1321 (Given - Provider: Rachael Anna, SHARI)1747 (Given - Provider: Alice Rogers, SHARI) 0840 (Given - Provider: Domi Mcdonald, SHARI)1215 (Given - Provider: Domi Mcdonald, SHARI) insulin lispro (HumaLOG) injection 1-26 Units 1-26 [...] ordering guidance and correction scales. Link provided. 0830 (Given - Provider: RAJESH Dee)1254 (Given - Provider: RAJESH Dee - Comment: [...] Mcdonald, SHARI)1215 (Given - Provider: Domi Mcdonald, SHARI) insulin lispro (HumaLOG) injection 1-8 Units 1-8 [...] ordering guidance and correction scales. Link provided. 6393 (Given - Provider: KASEY VidalN) 8860 (Not Given - Provider: Emiliana Chaparro, SHARI [...] 1st line 0814 (Given - Provider: Domi Mcdonald RN) benzonatate (TESSALON) capsule 100 mg 100 mg, [...] 1256 (See Alternative - Provider: Rachael Anna, SHARI)2214 (See Alternative - Provider: Emiliana Chaparro, SHARI) 0819 (See Alternative - Provider: Domi Mcdonald, SHARI) oxyCODONE (ROXICODONE) 5 MG/5ML solution 5 mg(Linked [...] further options ordered. 1013 (Given - Provider: KASEY DeeN)2105 (Given - Provider: RAJESH Vidal) 1256 (Given - Provider: Rachael Anna, SHARI)2214 (Given - Provider: Emiliana Chaparro, SHARI) 0819 (Given - Provider: Domi Mcdonald, SHARI) [...] ordered. 0746 (Given - Provider: Rachael Anna, SHARI) traMADol (ULTRAM) tablet 50 mg 50 mg, [...] documented as of this encounter Care Teams Guest Service Aide Relationship Specialty Start Date End Date Thu Bhagat PA-C [address] [place] [id number] PCP - General 11/26/22 documented as of this encounter
--- OUTSIDE RECORDS SUMMARY | 2024-08-21 10:27 | XMS_ITS | Encounter Summary ---
Author Organization [facility] er Address [address] [place] [id number] Care Team Providers Care Pricing Actuary Name Role Phone Thu Bhagat PA-C Primary Care Provider [phone] Reason for Visit * Auth/Cert (Routine) Specialty Diagnoses / Procedures Referred By Contac t Referred To Contact Diagnoses Hyperglycemia Infection of right foot Acute renal failure, unspecified acute renal failure type (HCC) Procedures na Referral ID Status Reason Start Date Expiration Date Visits Re quested Visits Authorized [id number] 1 1 Encounter Details Date Type Department Care Team (Late st Contact Info) Description 06/12/2024 4:42 PM CDT Anesthesia Event [facility] Operating Room [address] [place] [id number] [place] [address] [place] [address] [phone] Anesthesia Record Procedure Summary Procedure Name Responsible Anesthesiologist Anesthesia Start Time Anesthesia Stop Time INCISION AND DRAINAGE woth possible delayed primary closure right foot (Right) Anthony Torres MD 06/12/24 1642 06/12/24 1735 Events Date Time Event Comment 06/12/2024 0821 1642 An Start 1643 In Room 1643 An Start Data 1647 Anesthesia Ready 1703 An Tourn Inflated 250 mm Hg PSR 1704 Proc Start 1724 Proc Fin 1730 an stop data 1732 Out of Room 1735 Handoff to RN I completed my handoff to the receiving nurse during which we: 1. Identified the patient 2. Identified the responsible provider 3. Reviewed the pertinent medical history 4. Discussed the surgical course 5. Reviewed intra-op anesthesia management and issues during anesthesia 6. Set expectations for post-procedure period 7. Allowed opportunity for questions and acknowledgement of understanding. 1735 An Stop Meds Name Total lidocaine PF 2 % 20 mg ondansetron 4 MG/2ML 4 mg fentaNYL 50 mcg/mL 100 mcg midazolam 2 MG/2ML 2 mg propofol 10 mg/mL 271.04 mg sodium chloride 0.9 % infusion 300 mL * Agents Name N2O % * Blood No blood administrations on file. Lines, Drains, and Airways Type Details Placement Removal Incision/Surgical Site 06/08/24; N; Yes; Toe D2, second; Anterior, Right; Adaptic with betadine solution, 4x4s, afshin, CLEAR tape, 4 inch roland wrap with velcro, 1/2 iodaform, aquacel 06/08/24 0000 by Aneesh Salcedo Wound Assessment 1; Right 2nd toe amputation site; 06/08/24; Incision; Right; Toe D2, second; Right 2nd Toe Amputation Site; Yes 06/08/24 0000 by Riya Stewart RN Incision/Surgical Site 06/12/24; N; Yes; Incision; Toe D2, second; Anterior, Right; 4x4, Kerlix roll, 4 ROLAND 06/12/24 0000 by Janine Carlton Peripheral IV Placement Date: 06/12/24; Placement Time: 0940; Catheter Size: 20 G; Orientation: Left, Posterior; Location: Forearm; Site Prep: Alcohol; Local Anesth: None; Technique: Anatomical landmarks; Inserted by: Brant Newton; Insertion Attempts: 1; Patient Tolerance: Tolerated well; Removal Date: 06/17/24; Removal Time: 1445; Removal Reason: Per order 06/12/24 0940 by Brant Lamb RN 06/17/24 1445 by Domi Mcdonald RN documented in this [...] your doctor or pharmacy? Never 06/06/2024 [facility] Utilities Answer Date Recorded In the [...] often do you attend chur ch or hindu services? More than 4 times per year [...] Recorded Patient Health Questionnaire-2 Score 0 06/06/2024 [facility] - Occupational Stress [...] OR Notes * Anesthesia Postprocedure Evaluation - Anthony Torres MD - 06/12/2024 5:51 PM CDT Patient: Francisco Javier Fung Procedure Summary Date: 06/12/24 Room / Location: [facility] OR [address] [place] [address] Operating Room Anesthesia Start: 164 Anesthesia Stop: 173 Procedure: INCISION AND DRAINAGE woth possible delayed primary closure right foot (Right) Diagnosis: Infection of right foot (Infection of right foot [L08.9]) Surgeons: Angel Coombs DPM Responsible Provider: Anthony Torres MD Anesthesia Type: MAC ASA Status: 3 Anesthesia Type: MAC Last vitals Vitals Value Taken Time BP 101/77 06/12/24 1749 Temp See flowsheet 06/12/24 1751 Pulse 65 06/12/24 1751 Resp 13 06/12/24 1751 SpO2 96 % 06/12/24 1751 Vitals shown include unfiled device data. No notable events documented. Anesthesia Post Evaluation Patient location during evaluation: bedside Patient participation: complete - patient participated Level of consciousness: awake and alert Pain scale: controlled. Pain management: satisfactory to patient Multimodal analgesia pain management approach Airway patency: patent Cardiovascular status: acceptable Respiratory status: acceptable Hydration status: acceptable Comments: Patient tolerated procedure well. Nausea and vomiting control satisfactory * Anesthesia Preprocedure Evaluation - Anthony Torres MD - 06/11/2024 2:31 PM CDT Anesthesia Adult ROS/MED Evaluation INCISION AND DRAINAGE woth possible delayed primary closure right foot (Right) 69 y.o. Patient Active Problem List Diagnosis Atrial fibrillation (HCC) Essential hypertension Major depressive disorder Mixed hyperlipidemia Obstructive sleep apnea syndrome in adult Stroke (HCC) Type 2 diabetes mellitus with diabetic neuropathy, unspecified (HCC) Unspecified systolic (congestive) heart failure (HCC) Cerebral infarction, unspecified (HCC) Hypomagnesemia Infection of right foot Current Outpatient Medications Medication Instructions apixaban (ELIQUIS) 5 mg, Oral, 2 times daily aspirin EC 81 mg, Oral, Daily atorvastatin (LIPITOR) 40 mg, Oral, Daily carvedilol (COREG) 12.5 mg, Oral, 2 times daily cyanocobalamin (VITAMIN B-12) 1,000 mcg, Oral, Daily doxycycline (VIBRAMYCIN) 100 mg, Oral, 2 times daily Empagliflozin 25 mg, Oral, Daily glipiZIDE (GLUCOTROL XL) 20 mg, Oral, Daily, Do not crush, chew, or split. lidocaine (LMX) 4 % cream 1 application , Topical, 4 times daily PRN, (Apply moderate amount topically QID PRN numbness/discomfort in feet) lisinopril (ZESTRIL) 20 mg, Oral, Daily Magnesium Oxide 420 MG tablet 1 tablet, Oral, 2 times daily metFORMIN (GLUCOPHAGE) 1,000 mg, Oral, 2 times daily with meals pioglitazone (ACTOS) 45 mg, Oral, Daily UNABLE TO FIND Med Name: Neurvive supplement Vitamin D (Cholecalciferol) 1,000 Units, Oral, Daily Cardiac testing: Echo - not on record, reportedly 28% in 2018 pt with good functional status, walks 3mi a day prior to current illness Labs: Lab Results Component Value Date GLUCOSE 173 (H) 06/11/2024 CALCIUM 9.5 06/11/2024 NA 138 06/11/2024 K 4.2 06/11/2024 CO2 25 06/11/2024 CL 104 06/11/2024 BUN 24 06/11/2024 CREATININE 1.20 06/11/2024 Lab Results Component Value Date WBC 14.5 (H) 06/11/2024 HGB 15.3 06/11/2024 HCT 46.8 06/11/2024 MCV 91.9 06/11/2024 PLT 389 06/11/2024 No results found for: TSH Lab Results Component Value Date HGBA1C 9.0 (H) 06/06/2024 No family or personal history of issues [...] 8.5 oz). Physical Exam Airway Mallampati: III TM distance: >3 FB Neck ROM: full Cardiovascular - normal exam Rhythm: regular Rate: normal Dental - normal exam Pulmonary - normal exam Breath sounds clear to auscultation Abdominal Other findings: BP 132/74 (BP Location: Left arm, Patient Position: Lying) Pulse 76 Temp (!) 35.8 ??C (96.5 ??F) (Temporal) Resp 18 Ht 1.854 m (6' 0.99) Wt 89.6 kg (197 lb 8.5 oz) SpO2 93% BMI 26.07 kg/m?? Smoking Status Never BSA 2.15 m?? Anesthesia Plan ASA 3 MAC (Risks [including, [...] questions were answered. The patient and/or consenting green party verbalized understanding and wishes to proceed.) intravenous induction Postoperative administration of opioids is intended. Anesthetic plan and risks discussed with patient. Plan discussed with SCHOOL COUNSELLOR. Initial evaluation reviewed, no significant interval change. Re-evaluation prior to induction complete. documented in this encounter Plan of Treatment Upcoming Encounters Date Type Department Care Team (Late st Contact Info) Description 08/24/2024 8:30 AM INCIDENT RESPONSE ANALYST Office Visit [facility] [address] [place] [phone] 08/24/2024 11:30 AM INCIDENT RESPONSE ANALYST Office Visit [facility] [address] [place], [place] [phone] Angel Coombs DPM [address] [place] [phone] 08/25/2024 8:30 AM INCIDENT RESPONSE ANALYST Office Visit [facility] [address] [place] [phone] 08/26/2024 8:30 AM INCIDENT RESPONSE ANALYST Office Visit [facility] [address] [place] [phone] 08/27/2024 8:30 AM INCIDENT RESPONSE ANALYST Office Visit [facility] [address] [place] [address] [phone] 08/27/2024 11:00 AM INCIDENT RESPONSE ANALYST Office Visit [facility] [address] [place] [phone] Vilma Neves MD [address] [place] [address] [phone] 08/28/2024 8:30 AM INCIDENT RESPONSE ANALYST Office Visit [facility] [address] [place] [address] [phone] 08/31/2024 8:30 AM INCIDENT RESPONSE ANALYST Office Visit [facility] [address] [place] [phone] 09/01/2024 8:30 AM INCIDENT RESPONSE ANALYST Office Visit [facility] [address] [place] [address] [phone] 09/02/2024 8:30 AM INCIDENT RESPONSE ANALYST Office Visit [facility] [address] [place] [address] [phone] 09/03/2024 8:30 AM INCIDENT RESPONSE ANALYST Office Visit [facility] [address] [place] [address] [phone] 09/03/2024 11:00 AM INCIDENT RESPONSE ANALYST Office Visit [facility] [address] [place] [phone] Vilma Neves MD [address] [place] [address] [phone] 09/03/2024 11:00 AM INCIDENT RESPONSE ANALYST [facility] [address] [place] [address] [phone] Amairani Sigala MD [address] [place] [phone] 09/04/2024 8:30 AM INCIDENT RESPONSE ANALYST [facility] Visit [facility] [address] [place] [address] [phone] 09/07/2024 8:30 AM INCIDENT RESPONSE ANALYST Office Visit [facility] [address] [place] [address] [phone] 09/08/2024 8:30 AM INCIDENT RESPONSE ANALYST Office Visit [facility] [address] [place] [address] [phone] 09/09/2024 8:30 AM INCIDENT RESPONSE ANALYST Office Visit [facility] [address] [place] [address] [phone] 09/10/2024 8:30 AM INCIDENT RESPONSE ANALYST Office Visit [facility] [address] [place] [address] [phone] 09/10/2024 11:20 AM INCIDENT RESPONSE ANALYST Office Visit [facility] [address] [place] [address] [phone] Vilma Neves MD [address] [place] [address] [phone] 09/11/2024 8:30 AM INCIDENT RESPONSE ANALYST Office Visit [facility] [address] [place] [address] [phone] 09/14/2024 8:30 AM INCIDENT RESPONSE ANALYST Office Visit [facility] [address] [place] [address] [phone] 09/15/2024 8:30 AM INCIDENT RESPONSE ANALYST Office Visit [facility] [address] [place] [phone] documented as of this encounter Visit Diagnoses Not on filedocumented in this encounter Administered Medications Inactive Administered Medications - up to 3 most recent administrations Medication Order MAR Action Action Date Dose Rate Site fentaNYL (SUBLIMAZE) injection Intravenous, As needed, Starting on Sat06/12/24 at 1644, Anesthesia Intraprocedure Given 06/12/2024 5:21 PM CDT 25 mcg Given 06/12/2024 5:11 PM CDT 25 mcg Given 06/12/2024 5:02 PM CDT 25 mcg lidocaine PF (XYLOCAINE) 2 % injection Infiltration, As needed, Starting on Sat06/12/24 at 1644, Anesthesia Intraprocedure Given 06/12/2024 4:44 PM CDT 20 mg midazolam (VERSED) injection Intravenous, As needed, Starting on Sat06/12/24 at 1644, Anesthesia Intraprocedure Given 06/12/2024 4:44 PM CDT 2 mg ondansetron (ZOFRAN) injection Intravenous, As needed, Starting on Sat06/12/24 at 1644, Anesthesia Intraprocedure Given 06/12/2024 4:44 PM CDT 4 mg propofol (DIPRIVAN) infusion 10 mg/mL Intravenous, Continuous PRN, Starting on Sat06/12/24 at 1644, Anesthesia Intraprocedure Rate/Dose Change 06/12/2024 5:21 PM CDT 25 mcg/kg/min 13.44 mL/hr Rate/Dose Change 06/12/2024 4:51 PM CDT 75 mcg/kg/min 40.3 2 mL/hr New Bag 06/12/2024 4:44 PM CDT 100 mcg/kg/min 53.76 mL/ hr sodium chloride 0.9 % infusion 75 mL/hr, Intravenous, Continuous, Starting on Sat06/12/24 at 1100, For 5 days Restarted 06/12/2024 4:42 PM CDT New Bag 06/12/2024 10:24 AM CDT 75 mL/hr 75 mL/hr documented in this encounter Additional Health Concerns Infection Onset Date Last Indicated Resolved Time MSSA 06/06/2024 06/12/2024 07/13/2024 9:58 AM CDT documented as of this encounter Care Teams Pricing Actuary Relationship Specialty Start Date End Date Thu Bhagat PA-C [phone] PCP - General 11/26/22 documented as of this encounter
--- OUTSIDE RECORDS SUMMARY | 2024-08-21 10:28 | XMS_ITS | Encounter Summary ---
Author Organization [facility] er Address [address] [place] [id number] Care Team Providers Care Business Project Analyst Name Role Phone Thu Bhagat PA-C Primary Care Provider [phone] Reason for Visit * Reason Comments Cellulitis Right foot * Auth/Cert (Routine) Specialty Diagnoses / Procedures Referred By Conteufemia t Referred To Contact Diagnoses Hyperglycemia Infection of right foot Acute renal failure, unspecified acute renal failure type (HCC) Procedures na Referral ID Status Reason Start Date Expiration Date Visits Re quested Visits Authorized [id number] 1 1 Encounter Details Date Type Department Care Team (Late st Contact Info) Description 06/08/2024 1:11 PM CDT - 06/08/2024 3:11 PM CDT Surgery [facility] Operating Room [address] [place] [id number] Steve Lopez DPM [address] [place] [phone] 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 Possible transmetatarsal amputation with gastroc lengthening Surgery Details Date/Time Status Location OR Service Patient Class Case Class Case Type Trauma Case? 06/08/24 1:11 PM Posted [facility] OR OR 03 Podiatry Inpatient Panel 1 Procedure LRB Anes Op Region Wound Class Comments Right second toe amputation with wound debridement and incision and drainage. Possible transmetatarsal amputation with gastroc lengthening Right Monitored Anesthesia Care Class I/ Clean Surgeon Surgeon Role Service Panel Steve Lopez DPM Primary Podiatry 1 documented in this encounter Social History Tobacco [...] your doctor or pharmacy? Never 06/06/2024 [facility] Utilities Answer Date Recorded In the past 12 months has e [employer], [employer], or water [address] threatened to shut off services in your [...] How often do you attend chur or taoism services? More than 4 times per year [...] any time in the past 12 [facility], were you homeless or living in [...] Sign Reading Time Taken Comments Blood Pressure 132/92 06/08/2024 3:10 PM CDT Pulse 95 06/08/2024 3:10 PM CDT Temperature 36.3 ??C (97.3 ??F) 06/08/2024 2:59 PM CD T Respiratory Rate 14 06/08/2024 3:10 PM CDT Oxygen Saturation 98% 06/08/2024 3:10 PM CDT Inhaled Oxygen Concentration - - [...] woth possible delayed primary closure right foot Aelony, Angel S., DPM ADMISSION/DISCHARGE DIAGNOSES Principal Diagnosis: Infection of [...] above PRIMARY CARE PROVIDER: Thu Bhagat PA-C [phone] TEST RESULTS PENDING AT DISCHARGE @DCPENDLAB@ OUTPATIENT FOLLOW-UP Future Appointments Date Time Provider Department Center 06/18/2024 1:00 PM Rocco Couch PA-C [facility] 06/18/2024 2:00 PM [facility] INFUSION ROOM [facility] 06/19/2024 2:00 PM [facility]FUSION RO[facility] 06/20/2024 2:00 PM [facility] OPAT INFUSION [facility] 06/21/2024 2:00 PM [facility] OPAT INFUSION [facility] 06/22/2024 2:00 PM [facility] OPAT INFUSION [facility] 06/23/2024 1:00 PM INFUSION CHAIR 1 [facility] 06/23/2024 2:30 PM Angel Coombs, DPM [facility] 06/24/2024 2:00 PM INFUSION CHAIR 1 [facility] 06/25/2024 8:00 AM Vilma Neves MD [facility] 06/25/2024 1:00 PM Amairani Sigala MD [facility] 06/25/2024 2:00 PM INFUSION CHAIR 1 [...] patient/family/caregiver, ordering medications/tests/procedures, referring/communicating with other health disabilities caregiver not separately reported, documentation, and independently interpretingresults not separately reported, communicating results to the patient/family/caregiver, and care coordination not separately reported). Pina Bonilla MD Hospitalist documented in this encounter Discharge Instructions * Discharge Instructions* Vilma Neves MD - 06/16/2024 1:34 PM CDT [facility] Patient name: Karin [...] direct any wound questions or concerns to: [facility] The clinic is [...] Care Everywhere. * Toe Amputation Care After (Italian) * Type 2 Diabetes Mellitus Self-Care Adult Kifz-rh-Jlrr (Italian) * Diabetic Neuropathy (Italian) documented in this encounter Medications at Time [...] infection during hospitalization 06/17/2024 1407 by Domi Mcdonald RN Outcome: Adequate for Discharge Problem: Discharge [...] date. Pt to do outpatient infusion at [facility] Infusion and [facility] wound clinic and is aware of his appointments. Pt is planning to [facility] D[facility]. Pt is aware of the cost. DME listing was provided. Pt's girlfriend to provide transportation home. Addressed and answered all questions/concerns. No further [facility] SS needed at this time. * Jasiel [...] 06/12/2024 1705 06/13/2024 1220 Tissue Culture, Anaerobic [[id number]] Swab from Foot, Right Anaerobic Tissue Culture Component Value Gram Stain No organisms seen. No WBC's seen. 06/12/2024 1704 06/15/2024 0843 Tissue culture, aerobic [[id number]] (Abnormal) Swab from Foot, Right Tissue Culture [...] 06/17/2024 0550 06/17/2024 0635 Basic metabolic panel [[id number]] (Abnormal) Blood, Venous Final result Component Value Units Sodium 136 mEq/L Potassium 4.1 mEq/L Chloride 101 mEq/L CO2 32 mmol/L Creatinine 1.14 mg/dL BUN 22 mg/dL Glucose 135 mg/dL Calcium, Total,S 8.9 mg/dL Anion Gap 3 Fasting? Yes 06/17/2024 0550 06/17/2024 0618 CBC ([facility] [employer]) [[id number]] (Abnormal) Blood, Venous Final result Component Value Units WBC 10.5 K/uL RBC 5.18 M/uL Hemoglobin 15.2 g/dL Hematocrit 47.8 % Platelets 376 K/uL MCV 92.3 fL MCH 29.3 pg MCHC 31.8 g/dL RDW 14.6 % NRBC %, Automated 0 % NRBC Absolute, Autmated 0.00 K/uL 06/16/2024 0608 06/16/2024 0826 Basic metabolic panel [[id number]] (Abnormal) Blood, Venous Final result Component Value Units Sodium 136 mEq/L Potassium 4.3 mEq/L Chloride 100 mEq/L CO2 30 mmol/L Creatinine 1.13 mg/dL BUN 20 mg/dL Glucose 116 mg/dL Calcium, Total,S 9.1 mg/dL Anion Gap 6 Fasting? Unknown 06/16/2024 0608 06/16/2024 0652 CBC ([employer]) [[id number]] Blood, Venous Final result Component Value Units WBC 10.2 K/uL RBC 5.36 M/uL Hemoglobin 15.9 g/dL Hematocrit 48.9 % Platelets 369 K/uL MCV 91.2 fL MCH 29.7 pg MCHC 32.5 g/dL RDW 14.7 % NRBC %, Automated 0 % NRBC Absolute, Autmated 0.00 K/uL 06/15/2024 0600 06/15/2024 0617 Basic metabolic panel [[id number]] (Abnormal) Blood, Venous Final result Component Value Units Sodium 136 mEq/L Potassium 4.0 mEq/L Chloride 100 mEq/L CO2 30 mmol/L Creatinine 1.05 mg/dL BUN 17 mg/dL Glucose 117 mg/dL Calcium, Total,S 8.8 mg/dL Anion Gap 6 Fasting? Yes 06/15/2024 0600 06/15/2024 0606 CBC ([employer]) [[id number]] (Abnormal) Blood, Venous Final result Component Value Units WBC 11.5 K/uL RBC 5.04 M/uL Hemoglobin 14.9 g/dL Hematocrit 46.2 % Platelets 358 K/uL MCV 91.7 fL MCH 29.6 pg MCHC 32.3 g/dL RDW 14.9 % NRBC %, Automated 0 % NRBC Absolute, Autmated 0.00 K/uL 06/14/2024 0545 06/14/2024 0628 Basic metabolic panel [[id number]] (Abnormal) Blood, Venous Final result Component Value Units Sodium 138 mEq/L Potassium 4.2 mEq/L Chloride 101 mEq/L CO2 31 mmol/L Creatinine 1.03 mg/dL BUN 20 mg/dL Glucose 142 mg/dL Calcium, Total,S 8.9 mg/dL Anion Gap 6 Fasting? Yes 06/14/2024 0545 06/14/2024 0621 CBC ([employer]) [[id number]] (Abnormal) Blood, Venous Final result Component Value Units WBC 12.1 K/uL RBC 5.04 M/uL Hemoglobin 15.1 g/dL Hematocrit 47.3 % Platelets 396 K/uL MCV 93.8 fL MCH 30.0 pg MCHC 31.9 g/dL RDW 15.2 % NRBC %, Automated 0 % NRBC Absolute, Autmated 0.00 K/uL 06/13/2024 0500 06/13/2024 0548 Basic metabolic panel [[id number]] (Abnormal) Blood, Venous Final result Component Value Units Sodium 135 mEq/L Potassium 4.0 mEq/L Chloride 102 mEq/L CO2 29 mmol/L Creatinine 1.21 mg/dL BUN 26 mg/dL Glucose 188 mg/dL Calcium, Total,S 8.7 mg/dL Anion Gap 4 Fasting? Yes 06/13/2024 0500 06/13/2024 0533 CBC ([employer]) [[id number]] (Abnormal) Blood, Venous Final result Component Value Units WBC 16.2 K/uL RBC 5.00 M/uL Hemoglobin 14.8 g/dL Hematocrit 46.7 % Platelets 382 K/uL MCV 93.4 fL MCH 29.6 pg MCHC 31.7 g/dL RDW 15.2 % NRBC %, Automated 0 % NRBC Absolute, Autmated 0.00 K/uL 06/12/2024 0540 06/12/2024 0615 Basic metabolic panel [[id number]] (Abnormal) Blood, Venous Final result Component Value Units Sodium 137 mEq/L Potassium 4.2 mEq/L Chloride 103 mEq/L CO2 29 mmol/L Creatinine 1.13 mg/dL BUN 25 mg/dL Glucose 172 mg/dL Calcium, Total,S 9.2 mg/dL Anion Gap 5 Fasting? Yes 06/12/2024 0540 06/12/2024 0559 CBC ([employer]) [[id number]] (Abnormal) Blood, Venous Final result Component Value Units WBC 14.4 K/uL RBC 5.22 M/uL Hemoglobin 15.5 g/dL Hematocrit 48.2 % Platelets 396 K/uL MCV 92.3 fL MCH 29.7 pg MCHC 32.2 g/dL RDW 15.1 % NRBC %, Automated 0 % NRBC Absolute, Autmated 0.00 K/uL 06/11/2024 0610 06/11/2024 0710 Basic metabolic panel [[id number]] (Abnormal) Blood, Venous Final result Component Value Units Sodium 138 mEq/L Potassium 4.2 mEq/L Chloride 104 mEq/L CO2 25 mmol/L Creatinine 1.20 mg/dL BUN 24 mg/dL Glucose 173 mg/dL Calcium, Total,S 9.5 mg/dL Anion Gap 9 Fasting? Yes 06/11/2024 0610 06/11/2024 0653 CBC ([employer]) [[id number]] (Abnormal) Blood, Venous Final result Component Value Units WBC 14.5 K/uL RBC 5.09 M/uL Hemoglobin 15.3 g/dL Hematocrit 46.8 % Platelets 389 K/uL MCV 91.9 fL MCH 30.1 pg MCHC 32.7 g/dL RDW 15.3 % NRBC %, Automated 0 % NRBC Absolute, Autmated 0.00 K/uL 06/10/2024 0554 06/10/2024 0613 Basic metabolic panel [[id number]] (Abnormal) Blood, Venous Final result Component Value Units Sodium 138 mEq/L Potassium 4.2 mEq/L Chloride 107 mEq/L CO2 24 mmol/L Creatinine 1.23 mg/dL BUN 24 mg/dL Glucose 139 mg/dL Calcium, Total,S 9.3 mg/dL Anion Gap 7 Fasting? Yes 06/10/2024 0554 06/10/2024 0607 CBC ([employer]) [[id number]] (Abnormal) Blood, Venous Final result Component Value Units WBC 15.2 K/uL RBC 5.00 M/uL Hemoglobin 15.2 g/dL Hematocrit 47.1 % Platelets 347 K/uL MCV 94.2 fL MCH 30.4 pg MCHC 32.3 g/dL RDW 15.6 % NRBC %, Automated 0 % NRBC Absolute, Autmated 0.00 K/uL 06/09/2024 1138 06/09/2024 1414 Vancomycin [[id number]] Blood, Venous Final result Component Value Units Vancomycin 22.9 mcg/mL Last Dose Date 06/09/2024 Last Dose Time 1010 AM 06/09/2024 0605 06/09/2024 0649 Basic metabolic panel [[id number]] (Abnormal) Blood, Venous Final result Component Value Units Sodium 137 mEq/L Potassium 4.2 mEq/L Chloride 108 mEq/L CO2 24 mmol/L Creatinine 1.21 mg/dL BUN 29 mg/dL Glucose 113 mg/dL Calcium, Total,S 9.2 mg/dL Anion Gap 5 Fasting? Yes 06/09/2024 0605 06/09/2024 0637 CBC ([employer]) [[id number]] (Abnormal) Blood, Venous Final result Component Value Units WBC 13.8 K/uL RBC 5.05 M/uL Hemoglobin 14.9 g/dL Hematocrit 47.0 % Platelets 334 K/uL MCV 93.1 fL MCH 29.5 pg MCHC 31.7 g/dL RDW 15.4 % NRBC %, Automated 0 % NRBC Absolute, Autmated 0.00 K/uL 06/08/2024 0605 06/08/2024 0707 Basic metabolic panel [[id number]] (Abnormal) Blood, Venous Final result Component Value Units Sodium 138 mEq/L Potassium 3.9 mEq/L Chloride 109 mEq/L CO2 21 mmol/L Creatinine 1.33 mg/dL BUN 36 mg/dL Glucose 84 mg/dL Calcium, Total,S 8.9 mg/dL Anion Gap 8 Fasting? Yes 06/08/2024 0605 06/08/2024 0658 CBC ([employer]) [[id number]] (Abnormal) Blood, Venous Final result Component Value Units WBC 14.2 K/uL RBC 4.80 M/uL Hemoglobin 14.5 g/dL Hematocrit 44.6 % Platelets 298 K/uL MCV 92.9 fL MCH 30.2 pg MCHC 32.5 g/dL RDW 15.1 % NRBC %, Automated 0 % NRBC Absolute, Autmated 0.00 K/uL 06/06/2024 1000 06/08/2024 0229 Hemoglobin A1c [[id number]] (Abnormal) Blood, Venous Final result Component Value Units Hemoglobin A1C 9.0 % A1C 06/07/2024 0513 06/07/2024 0702 Vancomycin [[id number]] Blood, Venous Final result Component Value Units Vancomycin 9.6 mcg/mL Last Dose Date 06/06/2024 Last Dose Time 1040 06/07/2024 0513 06/07/2024 0546 Basic metabolic panel [[id number]] (Abnormal) Blood, Venous Final result Component Value Units Sodium 138 mEq/L Potassium 4.0 mEq/L Chloride 107 mEq/L CO2 22 mmol/L Creatinine 1.81 mg/dL BUN 55 mg/dL Glucose 125 mg/dL Calcium, Total,S 9.1 mg/dL Anion Gap 9 Fasting? Yes 06/07/2024 0513 06/07/2024 0539 CBC ([facility]) [[id number]] (Abnormal) Blood, Venous Final result Component Value Units WBC 16.4 K/uL RBC 4.95 M/uL Hemoglobin 14.8 g/dL Hematocrit 45.4 % Platelets 281 K/uL MCV 91.7 fL MCH 29.9 pg MCHC 32.6 g/dL RDW 15.1 % NRBC %, Automated 0 % NRBC Absolute, Autmated 0.00 K/uL 06/06/2024 1000 06/06/2024 1119 Procalcitonin [[id number]] (Abnormal) Blood, Venous Final result Component Value Units Procalcitonin 1.34 ng/mL 06/06/2024 0955 06/06/2024 1034 Covid-19, Gutierrez ID Now, PCR symptomatic [[id number]] Swab from Nasal Final result Component Value Covid Source Nasal Covid-19, ID Now PCR NEGATIVE 06/06/2024 1000 06/06/2024 1032 C-reactive protein [[id number]] (Abnormal) Blood, Venous Final result Component Value Units CRP >320.0 mg/L 06/06/2024 1000 06/06/2024 1030 CBC auto differential [[id number]] (Abnormal) Blood, Venous Final result Component Value [...] 0.00 K/uL 06/06/2024 1000 06/06/2024 1030 Morphology [[id number]] Final result Component Value Slide Review PERFORMED RBC Morphology NORMAL PLT Morphology ADEQUATE 06/06/2024 1000 06/06/2024 1028 Basic metabolic panel [[id number]] (Abnormal) Blood, Venous Final result Component Value Units Sodium 134 mEq/L Potassium 4.5 mEq/L Chloride 98 mEq/L CO2 24 mmol/L Creatinine 2.61 mg/dL BUN 78 mg/dL Glucose 254 mg/dL Calcium, Total,S 9.6 mg/dL Anion Gap 12 Fasting? Unknown 06/06/2024 1000 06/06/2024 1028 Magnesium [[id number]] (Abnormal) Blood, Venous Final result Component Value Units Magnesium 2.5 mg/dL 06/06/2024 1000 06/06/2024 1020 Lactate, plasma [[id number]] Blood, Venous Final result Component Value Units Lactate 1.3 mmol/L 06/06/2024 1000 06/06/2024 1017 APTT [[id number]] (Abnormal) Blood, Venous Final result Component Value Units aPTT 40 seconds 06/06/2024 1000 06/06/2024 1017 Protime-INR [[id number]] (Abnormal) Blood, Venous Final result Component Value Units Protime 19.0 seconds INR 1.6 06/06/2024 1000 06/06/2024 1014 Blood gas, venous [[id number]] Blood, Venous Final result Component Value Units [...] program with modified independence in 5 days. terminal clerk goal: Patient will discharge to least restrictive [...] Patient reported he has spoken with social insurance analyst regarding equipment needs. Patient believes his aunt is trying to obtain a 36 front wheeled walker for him to use at discharge. [place] forms supporting need for front wheeled walker [...] at bedside; confirmed with nursing. Patient workingwith [employer] Faller to coordinate services with the for discharge, [...] Possible transmetatarsal amputation with gastroc lengthening; Surgeon: Stvee Lopez DPM; Location: [facility] OR; Service: Podiatry; Laterality: Right; INCISION AND DRAINAGE OF WOUND Right 06/12/2024 Procedure: INCISION AND DRAINAGE woth possible delayed primary closure right foot; Surgeon: Angel Coombs DPM; Location: [facility] OR; Service: Podiatry; Laterality: Right; [...] with his girlfriend in an apartment in [place]. There are no steps to enter. His [...] his own finances and medications. He is retired.His girlfriend does the shopping. Patient does all of the driving, and travels in a pickup truck with a step up bar. For leisure, patient enjoys singing [employer] 4 nights a week and going for [...] vac management. [facility] therapist. This was [...] Bonner LSW - 06/16/2024 10:00 AM CDT [facility] SS continues to work with [facility] and the [facility] to obtain [facility] for services following discharge. Pt to continue with plan to come to [facility] Infusion suite for infusion services and will follow up as an outpatient with the wound clinic. [facility] SS to continue to assist. * Pina [...] in sodium chloride 0.9 % 50 mL XAMH-Tusj-Vpd Plus, 1 g, Intravenous, q24h, Shantell Lewis [...] Nightly, Pina Bonilla MD,20 Units at 06/15/24 2323 insulin lispro [...] to 25mg bid Diabetes mellitus type 2, iwb-jgbwapu-uxilborwx patient's blood sugars are high on arrival [...] patient/family/caregiver, ordering medications/tests/procedures, referring/communicating with other health disabilities caregiver not separately reported, documentation, and independentlyinterpreting [...] Pt is still wanting to come to [facility] Infusion Services for treatment. Pt states his girlfriend or Aunt will plan to provide transportation for him. Paperwork for DME was provided to therapy department to complete for the [place] to order. Awaiting wound care recommendations so this engineering technical writer can coordinate with the [place] on services. The [place] states this can take up to 48 hours to approve. Medical team is aware. [facility] to continue to follow pt through [...] in sodium chloride 0.9 % 50 mL MKMJ-Osiq-Eqr Plus, 1 g, Intravenous, q24h, Shantell Lewis [...] to 25mg bid Diabetes mellitus type 2, ubn-cqdablx-lcfdfsnas patient's blood sugars are high on arrival [...] patient/family/caregiver, ordering medications/tests/procedures, referring/communicating with other health disabilities caregiver not separately reported, documentation, and independentlyinterpreting results not separately reported, communicating results to the patient/family/caregiver, and care coordination not separately reported). Pina Bonilla MD * Ioana Aparicio, DPT - 06/15/2024 [...] program with modified independence in 5 days. terminal clerk goal: Patient will discharge to least restrictive [...] General medical exam 03/29/2019 Colon cancer screening: colalexandra 03/13/2019 negative; next due in 3 years [...] right foot; Surgeon: Angel Coombs DPM; Location: [facility] OR; Service: Podiatry; Laterality: Right; [...] with his girlfriend in an apartment in [place]. There are no steps to enter. His [...] up bar. For leisure, patient enjoys singing cro[employer]EL [employer] 4 nights a week and going for [...] in sodium chloride 0.9 % 50 mL UNEB-Avxx-Pmo Plus, 1 g, Intravenous, q24h, Shantell Lewis [...] to 25mg bid Diabetes mellitus type 2, xpq-vvexlvs-oggcgqtlv patient's blood sugars are high on arrival [...] patient/family/caregiver, ordering medications/tests/procedures, referring/communicating with other health disabilities caregiver not separately reported, documentation, and independentlyinterpreting [...] if he needs to stay at a correction facility temporarily before going home to asbestos brake lining finisher helper him in his recovery. Patient was agreeable to this and said that he would be willing to stay in a correction facility if need be. This would be helpful for him to continue getting his wound VAC care and staying off of the foot. If however he can do this at home per OT and PT abiodunll recommend discharging him home. Medical management will [...] over many days Diabetes mellitus type 2, jzz-nxahtrt-babthvoph patient's blood sugars are high on arrival [...] patient/family/caregiver, ordering medications/tests/procedures, referring/communicating with other health disabilities caregiver not separately reported, documentation, and independentlyinterpreting [...] Assessment completed with: Patient Assessment Discussion: This engineering technical writer spoke with pt as he will likely need IV antibiotics upon discharge. Discussed both home infusion options and coming to [facility] Infusion for services. Pt would like to come to [facility] for infusion services as he lives nearby. This engineering technical writer called and spoke with Toña Carranza RN (phone: [phone]) with the [place] Community Care Transitions Team. [facility] will work with Toña on obtaining orders from the [place] for pt to be seen at [facility] Infusion suite. [facility] to continue to assist through discharge. Plan: [facility] contact information provided Response: Patient in [...] Monitor on telemetry Diabetes mellitus type 2, gzq-ucrghie-hkebtzwrm patient's blood sugars are high on arrival [...] patient/family/caregiver, ordering medications/tests/procedures, referring/communicating with other health disabilities caregiver not separately reported, documentation, and independentlyinterpreting [...] Monitor on telemetry Diabetes mellitus type 2, yvh-mndqnrd-tekovuhim patient's blood sugars are high on arrival [...] patient/family/caregiver, ordering medications/tests/procedures, referring/communicating with other health disabilities caregiver not separately reported, documentation, and independentlyinterpreting [...] Monitor on telemetry Diabetes mellitus type 2, iwp-qhqknao-zjdupcnuc patient's blood sugars are high on arrival [...] patient/family/caregiver, ordering medications/tests/procedures, referring/communicating with other health disabilities caregiver not separately reported, documentation, and independentlyinterpreting [...] Monitor on telemetry Diabetes mellitus type 2, wey-blorbgd-puqaesfwu patient's blood sugars are high on arrival [...] patient/family/caregiver, ordering medications/tests/procedures, referring/communicating with other health disabilities caregiver not separately reported, documentation, and independentlyinterpreting [...] adequate comfort level or baseline comfort level 06/08/20243 by Eva Paul RN Outcome: Progressing 06/08/20243 by Eva Paul RN Outcome: Progressing Problem: [...] tomorrow Continue Coreg Diabetes mellitus type 2, rts-mrmzugt-fodadomrg patient's blood sugars are high on arrival [...] patient/family/caregiver, ordering medications/tests/procedures, referring/communicating with other health disabilities caregiver not separately reported, documentation, and independentlyinterpreting [...] postoperative Continue Coreg Diabetes mellitus type 2, wlq-jhcyiif-exgejpzba patient's blood sugars are high on arrival [...] patient/family/caregiver, ordering medications/tests/procedures, referring/communicating with other health disabilities caregiver not separately reported, documentation, and independentlyinterpreting [...] postoperative Continue Coreg Diabetes mellitus type 2, owg-hcicape-panaoizaq patient's blood sugars are high on arrival [...] Current IV access: peripheral IV Inserting Clinician: Water Supply Engineer: DAX ETTA,RN,CRNI Inserting RN: EVELYN ALEMAN,RN Preanesthetic Checklist Completed: [...] PM Catheter Fr Size: 3 Lot #: [id number] Number of lumens: single lumen Analgesia used: [...] Calculations: 89.6 kg (197 lb 8.5 oz) [place] Equation: [address] [place] Equation: 1725 Equation Chosen to Use by RD: Nabila Hodgson Activity Factor: 1.2 Total Energy Needs: 2069 Temp: (!) 36.1 ??C (96.9 ??F) Estimated Protein Needs Total Protein Estimated Needs: 90-108 grams Method for Estimating Needs: 1-1.2 gram/kg Fluid Needs Total Fluid Estimated Needs: 2700 ml Method for Estimating Needs: 30 ml/kg Edema Masking Weight Loss: no Reduced salesperson meats strength: no Current Diet: 60 gram carbohydrate [...] mouth 2 (two) times a day Jake Sahh MD UNABLE TO FIND Med Name: Neurvive [...] GGT, ALKPHOS, BILITOT No results found for: [id number] No results found for: HAV, HEPAIGM, HEPBIGM, [...] patient/family/caregiver, ordering medications/tests/procedures, referring/communicating with other health disabilities caregiver not separately reported, documentation, and independentlyinterpreting results not separately reported, communicating results to the patient/family/caregiver, and care coordination not separately reported). Amairani Strickland MD Infectious diseases Freelance Translator * Amairani Sigala MD - 06/10/2024 10:17 [...] each day 10/28/23 Yes Jake Shah MD cyanocobalamin (VITAMIN B-12) 1000 [...] GGT, ALKPHOS, BILITOT No results found for: [id number] No results found for: HAV, HEPAIGM, HEPBIGM, [...] patient/family/caregiver, ordering medications/tests/procedures, referring/communicating with other health disabilities caregiver not separately reported, documentation, and independentlyinterpreting results not separately reported, communicating results to the patient/family/caregiver, and care coordination not separately reported). Amairani Strickland MD Infectious diseases Freelance Translator * Amairain Sigala MD - 06/09/2024 3:14 PM CDTAssociated [...] GGT, ALKPHOS, BILITOT No results found for: [id number] No results found for: HAV, HEPAIGM, HEPBIGM, [...] patient/family/caregiver, ordering medications/tests/procedures, referring/communicating with other health disabilities caregiver not separately reported, documentation, and independentlyinterpreting results not separately reported, communicating results to the patient/family/caregiver, and care coordination not separately reported). Amairani Strickland MD Infectious diseases Freelance Translator * Steve Lopez, DPM - 06/07/2024 11:25 [...] Date of Surgery: 06/12/2024 Surgeon: Dr. Coombs Water Supply Engineer:none Pre-op Diagnosis: Ulceration right foot status post [...] - 06/12/2024 Location: [facility] OR Name: Karin Silva CINDY Davis: 1955, Diagnosis Pre-op Diagnosis * Infection of right foot [L08.9] Post-op Diagnosis * Infection of right foot [L08.9] Preliminary CPT code(s): No CPT code documented in operative note Procedure(s): INCISION AND DRAINAGE right foot Surgeons and Role: * Angel Coombs DPM - Primary Procedure Summary Anesthesia: Monitored Anesthesia Care ASA: III Estimated Blood Loss: Minimal Staff: Director Instrumentation: Janine Carlton Scrub Person: Sarah Avalos Scott [...] Note Date: 06/08/2024 Location: [facility] OR Name: CINDY Giron: 1955, Diagnosis Pre-op Diagnosis * Infection of [...] III Estimated Blood Loss: 10 mL Staff: Director Instrumentation: Ismael Steele RN; Aneesh Salcedo Relief Director Instrumentation: Cole Angel RN Relief Scrub: Janine Kyle [...] until stable for transport back to the [facility] floor. Patient will continue to receive IV antibiotics [...] 2 am this morning. * Lazaro Chin, COP EXAMINER, BARREL WASHER MACHINE - 06/06/2024 8:51 AM CDT HPI No [...] and failed outpatient treatment. 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 Will obtain repeat labs, does not meet blood culture criteria based on shortages, empiric antibiotics started, anaerobic aerobic wound cultures ordered, will obtain CT foot, MRI unavailable. Anticipate admission probable surgical consultation and ID [...] st Contact Info) Description 08/24/2024 8:30 AM TRADE MANAGER Office Visit [facility] [address] [place] [phone] 08/24/2024 11:30 AM TRADE MANAGER Office Visit [facility] [address] [place] [address] Angel Coombs, DPM [address] [place] [phone] 08/25/2024 8:30 AM TRADE MANAGER Office Visit [facility] [address] [place] [address] [phone] 08/26/2024 8:30 AM TRADE MANAGER Office Visit [facility] [address] [place] [address] [phone] 08/27/2024 8:30 AM TRADE MANAGER Office Visit [facility] [address] [place] [phone] 08/27/2024 11:00 AM TRADE MANAGER Office Visit [facility] [address] [place] [address] Vilma Neves MD [address] [place] [phone] 08/28/2024 8:30 AM TRADE MANAGER Office Visit [facility] [address] [place] [address] [phone] 08/31/2024 8:30 AM TRADE MANAGER Office Visit [facility] [address] [place] [address] [phone] 09/01/2024 8:30 AM TRADE MANAGER Office Visit [facility] [address] [place] [phone] 09/02/2024 8:30 AM TRADE MANAGER Office Visit [facility] [address] [place] [phone] 09/03/2024 8:30 AM TRADE MANAGER Office Visit [facility] W[facility] [address] [place] [address] [phone] 09/03/2024 11:00 AM TRADE MANAGER Office Visit [facility] W[facility] [address] [place] [phone] Vilma Neves MD [address] [place] [phone] 09/03/2024 11:00 AM TRADE MANAGER Office Visit [facility] Infectious Disease [address] [place] [address] Amairani Sigala MD [address] [place] [phone] 09/04/2024 8:30 AM TRADE MANAGER Office Visit [facility] Wound Care [address] [place] [address] 13485 09/07/2024 8:30 AM TRADE MANAGER Office Visit [facility] [address] [place] [address] [phone] 09/08/2024 8:30 AM TRADE MANAGER Office Visit [facility] [address] [place] [address] 876[address] 09/09/2024 8:30 AM TRADE MANAGER Office Visit [facility] [address] [place] [address] [phone] 09/10/2024 8:30 AM TRADE MANAGER Office Visit [facility] [address] [place] [address] [phone] 09/10/2024 11:20 AM TRADE MANAGER Office Visit [facility] [address] [place] [address] [phone] Vilma Neves MD [address] [place] [phone] 09/11/2024 8:30 AM TRADE MANAGER Office Visit [facility] [address] [place] [address] [phone] 09/14/2024 8:30 AM TRADE MANAGER Office Visit [facility] [address] [place] [address] [phone] 09/15/2024 8:30 AM TRADE MANAGER Office Visit [facility] [address] [place] [address] 68807 Scheduled Orders Name Type Priority Associated Diagnoses [...] CULTURE, AEROBIC Routine 06/12/2024 5:04 PM CDT POCT PRECISION GLUCOSE Routine 06/12/2024 11:59 AM [...] without long-term current use of insulin (HCC) POCT PRECISION GLUCOSE Routine 06/08/2024 12:30 PM [...] 10:00 AM CDT C-REACTIVE PROTEIN STAT 06/06/2024 10 :00 AM CDT MAGNESIUM STAT 06/06/2024 10:00 AM CDT LACTATE, PLASMA STAT 06/06/2024 10:00 AM CDT HEMOGLOBIN A1C STAT 06/06/2024 10:00 AM CDT BLOOD GAS, VENOUS STAT 06/06/2024 10: 00 AM CDT BASIC METABOLIC PANEL STAT 06/06/2024 10:00 AM CDT COVID-19, GUTIERREZ ID NOW, PCR STAT 06/06/2024 9:55 AM CDT TISSUE CULTURE, ANAEROBIC STAT 06/06/2024 9:36 AM CDT TISSUE CULTURE, AEROBIC STAT 06/06/2024 9:36 AM CDT documented in this encounter Results * (ABNORMAL) POCT Precision glucose (06/17/2024 11:43 AM CDT) [facility] Glucose Blood, POC 284(H) 70 - 100 mg/dL 06/17/2024 11:43 AM CDT [facility] Comment: Meter ID: [id number] Capillary whole blood specimens should not be [...] DOCKED DEVICE UNSOLICITED RESULTS Performing Organization Address [facility] de Phone Number [facility] [address] [place], [place] [phone] * (ABNORMAL) POCT Precision glucose (06/17/2024 6:37 AM CDT) Glucose Blood, POC 150(H) 70 - 100 mg/dL 06/17/2024 6:37 AM CDT [facility] Comment: Meter ID: [id number] Capillary whole blood specimens should not be [...] DOCKED DEVICE UNSOLICITED RESULTS Performing Organization Address [facility] de Phone Number [facility] [address] [place], [place] [phone] * Estimated Glomerular Filtration Rate (eGFR) (06/17/2024 5:50 AM CDT) [facility] Estimated Glomerular Filtration Rate (eGFR) >60 06/17/2024 6:35 AM CDT [facility] Comment: GFR calculated from serum creatinine value Chronic Kidney Disease less than 60 mL/min/1.73 m2 Kidney Failure less than 15 mL/min/1.73 m2 Note: effective 10/17/2022: 2020 CKD-EPI Equation used 06/17/2024 5:50 AM CDT 06/17/2024 5:50 AM CDT Shantell Lewis MD LAB BLOOD ORDERAB LES Performing Organization Address City/[facility]/ZIP Co de Phone Number [facility] [address] [place] [phone] * (ABNORMAL) Basic metabolic panel (06/17/2024 5:50 AM CDT) Sodium 136 135 - 145 mEq/L 06/17/2024 6:35 AM T [facility] Potassium 4.1 3.5 - 5.1 mEq/L 06/17/2024 6:35 AM T [facility] Chloride 101 98 - 107 mEq/L 06/17/2024 6:35 AM T [facility] CO2 32(H) 22 - 31 mmol/L 06/17/2024 6:35 AM [facility] Creatinine 1.14 0.60 - 1.40 mg/dL 06/17/2024 6:35 AM [facility] BUN 22 5 - 25 mg/dL 06/17/2024 6:35 AM [facility] Glucose 135(H) 70 - 100 mg/dL 06/17/2024 6:35 AM T [facility] Calcium, Total,S 8.9 8.4 - 10.2 mg/dL 06/17/2024 6:35 AM [facility] Anion Gap 3(L) 4 - 13 06/17/2024 6:35 AM [facility] Comment: The anion gap is calculated with the following formula: AGAP = Na ? (Cl + CO2). Fasting? Yes 06/17/2024 6:16 AM T [facility] Blood (Blood, Venous) 06/17/2024 5:50 AM CDT 06/17/2024 6:16 AM T Shantell Lewis MD LAB BLOOD ORDERAB LES Performing Organization Address City/[facility]/ZIP Co de Phone Number [facility] [address] [place] [address] * (ABNORMAL) CBC (Heme [employer]) (06/17/2024 5:50 AM CDT) WBC 10.5 3.5 - 10.5 K/uL 06/17/2024 6:18 AM [facility] RBC 5.18 4.30 - 5.70 M/uL 06/17/2024 6:18 AM [facility] Hemoglobin 15.2 13.5 - 17.5 g/dL 06/17/2024 6:18 AM [facility] Hematocrit 47.8 38.0 - 50.0 % 06/17/2024 6:18 AM [facility] Platelets 376 150 - 450 K/uL 06/17/2024 6:18 AM [facility] MCV 92.3 81.2 - 95.1 fL 06/17/2024 6:18 AM [facility] MCH 29.3 26.0 - 32.0 pg 06/17/2024 6:18 AM [facility] MCHC 31.8(L) 32.0 - 36.0 g/dL 06/17/2024 6:18 AM [facility] RDW 14.6 11.8 - 15.6 % 06/17/2024 6:18 AM [facility] NRBC %, Automated 0 % 06/17/2024 6:18 AM [facility] NRBC Absolute, Autmated 0.00 K/uL 06/17/2024 6:18 AM [facility] Comment: 0-4 Days: 0.01 -0.02 >=5 Days: 0.00 Blood (Blood, Venous) 06/17/2024 5:50 AM CDT 06/17/2024 6:16 AM CDT Shantell Lewis MD LAB BLOOD ORDERAB LES [facility] [address] [place] [address] * (ABNORMAL) POCT Precision glucose (06/16/2024 10:04 PM CDT) [facility] Glucose Blood, POC 125(H) 70 - 100 mg/dL 06/16/2024 10:08 PM CDT [facility] Comment: Meter ID: [id number] Capillary whole blood specimens should not be [...] DOCKED DEVICE UNSOLICITED RESULTS Performing Organization Address [facility] de Phone Number [facility] [address] [place], [place] [phone] * (ABNORMAL) POCT Precision glucose (06/16/2024 4:39 PM CDT) Glucose Blood, POC 273(H) 70 - 100 mg/dL 06/16/2024 4:39 PM CDT [facility] Comment: Meter ID: [id number] Capillary whole blood specimens should not be [...] DOCKED DEVICE UNSOLICITED RESULTS Performing Organization Address [facility] Co de Phone Number [facility] [address] [place], [place] [phone] * (ABNORMAL) POCT Precision glucose (06/16/2024 11:20 AM CDT) Glucose Blood, POC 262(H) 70 - 100 mg/dL 06/16/2024 11:22 AM CDT [facility] Comment: Meter ID: [id number] Capillary whole blood specimens should not be [...] DOCKED DEVICE UNSOLICITED RESULTS Performing Organization Address [facility] de Phone Number [facility] [address] [place], [place] [phone] * (ABNORMAL) POCT Precision glucose (06/16/2024 6:55 AM CDT) Glucose Blood, POC 121(H) 70 - 100 mg/dL 06/16/2024 6:56 AM CDT [facility] Comment: Meter ID: [id number] Capillary whole blood specimens should not be [...] DOCKED DEVICE UNSOLICITED RESULTS Performing Organization Address City/[facility] Co de Phone Number [facility] [address] [place] [phone] * Estimated Glomerular Filtration Rate (eGFR) (06/16/2024 6:08 AM CDT) Estimated Glomerular Filtration Rate (eGFR) >60 06/16/2024 8:26 AM [facility] Comment: GFR calculated from serum creatinine value Chronic Kidney Disease less than 60 mL/min/1.73 m2 Kidney Failure less than 15 mL/min/1.73 m2 Note: effective 10/17/2022: 2020 CKD-EPI Equation used 06/16/2024 6:08 AM CDT 06/16/2024 6:08 AM T Shantell Lewis MD LAB BLOOD ORDERAB LES [facility] [address] [place] [phone] * (ABNORMAL) Basic metabolic panel (06/16/2024 6:08 AM T) Sodium 136 135 - 145 mEq/L 06/16/2024 8:26 AM [facility] Potassium 4.3 3.5 - 5.1 mEq/L 06/16/2024 8:26 AM [facility] Chloride 100 98 - 107 mEq/L 06/16/2024 8:26 AM [facility] CO2 30 22 - 31 mmol/L 06/16/2024 8:26 AM [facility] Creatinine 1.13 0.60 - 1.40 mg/dL 06/16/2024 8:26 AM [facility] BUN 20 5 - 25 mg/dL 06/16/2024 8:26 AM [facility] Glucose 116(H) 70 - 100 mg/dL 06/16/2024 8:26 AM [facility] Calcium, Total,S 9.1 8.4 - 10.2 mg/dL 06/16/2024 8:26 AM [facility] Anion Gap 6 4 - 13 06/16/2024 8:26 AM [facility] Comment: The anion gap is calculated with the following formula: AGAP = Na ? (Cl + CO2). Fasting? Unknown 06/16/2024 6:38 AM [facility] Blood (Blood, Venous) 06/16/2024 6:08 AM CDT 06/16/2024 6:37 AM CDT Shantell Lewis MD LAB BLOOD ORDERAB LES [facility] [address] [place] [address] * CBC (Heme Group) (06/16/2024 6:08 AM CDT) WBC 10.2 3.5 - 10.5 K/uL 06/16/2024 6:52 AM T [facility] RBC 5.36 4.30 - 5.70 M/uL 06/16/2024 6:52 AM T [facility] Hemoglobin 15.9 13.5 - 17.5 g/dL 06/16/2024 6:52 AM [facility] Hematocrit 48.9 38.0 - 50.0 % 06/16/2024 6:52 AM [facility] Platelets 369 150 - 450 K/uL 06/16/2024 6:52 AM [facility] MCV 91.2 81.2 - 95.1 fL 06/16/2024 6:52 AM [facility] MCH 29.7 26.0 - 32.0 pg 06/16/2024 6:52 AM [facility] MCHC 32.5 32.0 - 36.0 g/dL 06/16/2024 6:52 AM [facility] RDW 14.7 11.8 - 15.6 % 06/16/2024 6:52 AM [facility] NRBC %, Automated 0 % 06/16/2024 6:52 AM [facility] NRBC Absolute, Autmated 0.00 K/uL 06/16/2024 6:52 AM [facility] Comment: 0-4 Days: 0.01 -0.02 >=5 Days: 0.00 Blood (Blood, Venous) 06/16/2024 6:08 AM CDT 06/16/2024 6:37 AM CDT Shantell Lewis MD LAB BLOOD ORDERAB LES Performing Organization Address [facility] de Phone Number [facility] [address] [place] [phone] * (ABNORMAL) POCT Precision glucose (06/15/2024 11:19 PM CDT) Glucose Blood, POC 232(H) 70 - 100 mg/dL 06/15/2024 11:19 PM CDT [facility] Comment: Meter ID: [id number] Capillary whole blood specimens should not be [...] DOCKED DEVICE UNSOLICITED RESULTS Performing Organization Address [facility] de Phone Number [facility] [address] [place] [phone] * X-ray chest 1 view (06/15/2024 8:09 [...] POCT Precision glucose (06/15/2024 6:59 PM CDT) [facility] Glucose Blood, POC 107(H) 70 - 100 mg/dL 06/15/2024 6:59 PM CDT [facility] Comment: Meter ID: [id number] Capillary whole blood specimens should not be [...] CARE TE ST DOCKED DEVICE UNSOLICITED RESULTS [facility] [address] [place] [address] * X-ray chest 1 view (06/15/2024 6:50 [...] Current IV access: peripheral IV Inserting Clinician: Water Supply Engineer: DAX QUILES RN,CRNI Inserting RN: EVELYN ALEMAN [...] PM Catheter Fr Size: 3 Lot #: [id number] Number of lumens: single lumen Analgesia used: [...] - 100 mg/dL 06/15/2024 11:15 AM CDT [facility] Comment: Meter ID: [id number] Capillary whole blood specimens should not be [...] CARE TE ST DOCKED DEVICE UNSOLICITED RESULTS [facility] [address] [place] [phone] * (ABNORMAL) POCT Precision glucose (06/15/2024 7:21 AM CDT) Glucose Blood, POC 135(H) 70 - 100 mg/dL 06/15/2024 7:21 AM CDT [facility] Comment: Meter ID: [id number] Capillary whole blood specimens should not be [...] DOCKED DEVICE UNSOLICITED RESULTS Performing Organization Address [facility] Co de Phone Number [facility] [address] [place] [address] * Estimated Glomerular Filtration Rate (eGFR) (06/15/2024 6:00 AM CDT) Estimated Glomerular Filtration Rate (eGFR) >60 06/15/2024 6:16 AM CDT [facility] Comment: GFR calculated from serum creatinine value Chronic Kidney Disease less than 60 mL/min/1.73 m2 Kidney Failure less than 15 mL/min/1.73 m2 Note: effective 10/17/2022: 2020 CKD-EPI Equation used 06/15/2024 6:00 AM CDT 06/15/2024 6:00 AM CDT Shantell Lewis MD LAB BLOOD ORDERAB LES Performing Organization Address [facility] Co de Phone Number [facility] [address] [place], [place] [phone] * (ABNORMAL) Basic metabolic panel (06/15/2024 6:00 AM CDT) Sodium 136 135 - 145 mEq/L 06/15/2024 6:16 AM CDT [facility] Potassium 4.0 3.5 - 5.1 mEq/L 06/15/2024 6:16 AM T [facility] Chloride 100 98 - 107 mEq/L 06/15/2024 6:16 AM CDT [facility] CO2 30 22 - 31 mmol/L 06/15/2024 6:16 AM CDT [facility] Creatinine 1.05 0.60 - 1.40 mg/dL 06/15/2024 6:16 AM T [facility] BUN 17 5 - 25 mg/dL 06/15/2024 6:16 AM [facility] Glucose 117(H) 70 - 100 mg/dL 06/15/2024 6:16 AM [facility] Calcium, Total,S 8.8 8.4 - 10.2 mg/dL 06/15/2024 6:16 AM [facility] Anion Gap 6 4 - 13 06/15/2024 6:16 AM [facility] Comment: The anion gap is calculated with the following formula: AGAP = Na ? (Cl + CO2). Fasting? Yes 06/15/2024 6:05 AM [facility] Blood (Blood, Venous) 06/15/2024 6:00 AM CDT 06/15/2024 6:05 AM CDT Shantell Lewis MD LAB BLOOD ORDERAB LES Performing Organization Address City/State/[facility] Co de Phone Number [facility] [address] [place] [address] * (ABNORMAL) CBC (Heme Group) (06/15/2024 6:00 AM CDT) WBC 11.5(H) 3.5 - 10.5 K/uL 06/15/2024 6:06 AM [facility] RBC 5.04 4.30 - 5.70 M/uL 06/15/2024 6:06 AM [facility] Hemoglobin 14.9 13.5 - 17.5 g/dL 06/15/2024 6:06 AM [facility] Hematocrit 46.2 38.0 - 50.0 % 06/15/2024 6:06 AM [facility] Platelets 358 150 - 450 K/uL 06/15/2024 6:06 AM [facility] MCV 91.7 81.2 - 95.1 fL 06/15/2024 6:06 AM [facility] MCH 29.6 26.0 - 32.0 pg 06/15/2024 6:06 AM [facility] MCHC 32.3 32.0 - 36.0 g/dL 06/15/2024 6:06 AM CDT [facility] RDW 14.9 11.8 - 15.6 % 06/15/2024 6:06 AM CDT [facility] NRBC %, Automated 0 % 06/15/2024 6:06 AM CDT [facility] NRBC Absolute, Autmated 0.00 K/uL 06/15/2024 6:06 AM CDT [facility] Comment: 0-4 Days: 0.01 -0.02 >=5 Days: 0.00 Blood (Blood, Venous) 06/15/2024 6:00 AM CDT 06/15/2024 6:05 AM CDT Shantell Lewis MD LAB BLOOD ORDERAB LES Performing Organization Address [facility] Co de Phone Number [facility] [address] [place] [address] * (ABNORMAL) POCT Precision glucose (06/14/2024 9:23 PM CDT) Glucose Blood, POC 352(H) 70 - 100 mg/dL 06/14/2024 9:24 PM CDT [facility] Comment: Meter ID: [id number] Capillary whole blood specimens should not be [...] DOCKED DEVICE UNSOLICITED RESULTS Performing Organization Address [facility]/ZIP Co de Phone Number [facility] [address] [place] [phone] * POCT Precision glucose (06/14/2024 5:47 PM CDT) Glucose Blood, POC 94 70 - 100 mg/dL 06/14/2024 5:47 PM CDT [facility] Comment: Meter ID: [id number] Capillary whole blood specimens should not be [...] DOCKED DEVICE UNSOLICITED RESULTS Performing Organization Address [facility] Phone Number [facility] [address] [place], [place] [phone] * (ABNORMAL) POCT Precision glucose (06/14/2024 11:13 AM CDT) Glucose Blood, POC 154(H) 70 - 100 mg/dL 06/14/2024 11:13 AM CDT [facility] Comment: Meter ID: [id number] Capillary whole blood specimens should not be [...] DOCKED DEVICE UNSOLICITED RESULTS Performing Organization Address [facility] Co de Phone Number [facility] [address] [place] [phone] * (ABNORMAL) POCT Precision glucose (06/14/2024 6:27 AM CDT) Glucose Blood, POC 139(H) 70 - 100 mg/dL 06/14/2024 6:28 AM CDT [facility] Comment: Meter ID: [id number] Capillary whole blood specimens should not be [...] AM CDT 06/14/2024 6:29 AM CDT Pina Bnoilla MD LAB POINT OF CARE TE ST DOCKED DEVICE UNSOLICITED RESULTS Performing Organization Address [facility] Co de Phone Number [facility] [address] [place] [address] * Estimated Glomerular Filtration Rate (eGFR) (06/14/2024 5:45 AM CDT) Pathologist [facility] Estimated Glomerular Filtration Rate (eGFR) >60 06/14/2024 6:28 AM CDT [facility] Comment: GFR calculated from serum creatinine value Chronic Kidney Disease less than 60 mL/min/1.73 m2 Kidney Failure less than 15 mL/min/1.73 m2 Note: effective 10/17/2022: 2020 CKD-EPI Equation used 06/14/2024 5:45 AM CDT 06/14/2024 5:45 AM CDT Shantell Lewis MD LAB BLOOD ORDERAB LES Performing Organization Address [facility] [facility]/ZIP Co de Phone Number [facility] [address] [place], [place] [id number] * (ABNORMAL) Basic metabolic panel (06/14/2024 5:45 AM CDT) Sodium 138 135 - 145 mEq/L 06/14/2024 6:28 AM CDT [facility] Potassium 4.2 3.5 - 5.1 mEq/L 06/14/2024 6:28 AM T [facility] Chloride 101 98 - 107 mEq/L 06/14/2024 6:28 AM T [facility] CO2 31 22 - 31 mmol/L 06/14/2024 6:28 AM [facility] Creatinine 1.03 0.60 - 1.40 mg/dL 06/14/2024 6:28 AM T [facility] BUN 20 5 - 25 mg/dL 06/14/2024 6:28 AM T [facility] Glucose 142(H) 70 - 100 mg/dL 06/14/2024 6:28 AM [facility] Calcium, Total,S 8.9 8.4 - 10.2 mg/dL 06/14/2024 6:28 AM [facility] Anion Gap 6 4 - 13 06/14/2024 6:28 AM [facility] Comment: The anion gap is calculated with the following formula: AGAP = Na ? (Cl + CO2). Fasting? Yes 06/14/2024 6:13 AM [facility] Blood (Blood, Venous) 06/14/2024 5:45 AM CDT 06/14/2024 6:13 AM CDT Shantell Lewis MD LAB BLOOD ORDERAB LES [facility] [address] [place] [phone] * (ABNORMAL) CBC ([employer]) (06/14/2024 5:45 AM CDT) WBC 12.1(H) 3.5 - 10.5 K/uL 06/14/2024 6:21 AM T [facility] RBC 5.04 4.30 - 5.70 M/uL 06/14/2024 6:21 AM T [facility] Hemoglobin 15.1 13.5 - 17.5 g/dL 06/14/2024 6:21 AM T [facility] Hematocrit 47.3 38.0 - 50.0 % 06/14/2024 6:21 AM T [facility] Platelets 396 150 - 450 K/uL 06/14/2024 6:21 AM [facility] MCV 93.8 81.2 - 95.1 fL 06/14/2024 6:21 AM [facility] MCH 30.0 26.0 - 32.0 pg 06/14/2024 6:21 AM [facility] MCHC 31.9(L) 32.0 - 36.0 g/dL 06/14/2024 6:21 AM [facility] RDW 15.2 11.8 - 15.6 % 06/14/2024 6:21 AM [facility] NRBC %, Automated 0 % 06/14/2024 6:21 AM [facility] NRBC Absolute, Autmated 0.00 K/uL 06/14/2024 6:21 AM [facility] Comment: 0-4 Days: 0.01 -0.02 >=5 Days: 0.00 Blood (Blood, Venous) 06/14/2024 5:45 AM CDT 06/14/2024 6:13 AM CDT Shantell Lewis MD LAB BLOOD ORDERAB LES [facility] [address] [place] [phone] * (ABNORMAL) POCT Precision glucose (06/13/2024 8:59 PM CDT) [facility] Glucose Blood, POC 257(H) 70 - 100 mg/dL 06/13/2024 8:59 PM CDT [facility] Comment: Meter ID: [id number] Capillary whole blood specimens should not be [...] DOCKED DEVICE UNSOLICITED RESULTS Performing Organization Address [facility] de Phone Number [facility] [address] [place] [phone] * POCT Precision glucose (06/13/2024 5:36 PM CDT) Glucose Blood, POC 98 70 - 100 mg/dL 06/13/2024 5:36 PM CDT [facility] Comment: Meter ID: [id number] Capillary whole blood specimens should not be [...] DOCKED DEVICE UNSOLICITED RESULTS Performing Organization Address [facility] de Phone Number [facility] [address] [place] [phone] * (ABNORMAL) POCT Precision glucose (06/13/2024 11:48 AM CDT) Glucose Blood, POC 273(H) 70 - 100 mg/dL 06/13/2024 11:48 AM CDT [facility] Comment: Meter ID: [id number] Capillary whole blood specimens should not be [...] DOCKED DEVICE UNSOLICITED RESULTS Performing Organization Address [facility] de Phone Number [facility] [address] [place] [phone] * (ABNORMAL) POCT Precision glucose (06/13/2024 6:37 AM CDT) Glucose Blood, POC 180(H) 70 - 100 mg/dL 06/13/2024 6:37 AM CDT [facility] Comment: Meter ID: [id number] Capillary whole blood specimens should not be [...] DOCKED DEVICE UNSOLICITED RESULTS Performing Organization Address [facility] Phone Number [facility] [address] [place] [phone] * Estimated Glomerular Filtration Rate (eGFR) (06/13/2024 5:00 AM CDT) Estimated Glomerular Filtration Rate (eGFR) >60 06/13/2024 5:48 AM CDT [facility] Comment: GFR calculated from serum creatinine value Chronic Kidney Disease less than 60 mL/min/1.73 m2 Kidney Failure less than 15 mL/min/1.73 m2 Note: effective 10/17/2022: 2020 CKD-EPI Equation used 06/13/2024 5:00 AM CDT 06/13/2024 5:00 AM CDT Shantell Lewis MD LAB BLOOD ORDERAB LES Performing Organization Address [facility]/ZIP Co de Phone Number [facility] [address] [place] [address] * (ABNORMAL) Basic metabolic panel (06/13/2024 5:00 AM CDT) Sodium 135 135 - 145 mEq/L 06/13/2024 5:48 AM [facility] Potassium 4.0 3.5 - 5.1 mEq/L 06/13/2024 5:48 AM [facility] Chloride 102 98 - 107 mEq/L 06/13/2024 5:48 AM [facility] CO2 29 22 - 31 mmol/L 06/13/2024 5:48 AM [facility] Creatinine 1.21 0.60 - 1.40 mg/dL 06/13/2024 5:48 AM [facility] BUN 26(H) 5 - 25 mg/dL 06/13/2024 5:48 AM [facility] Glucose 188(H) 70 - 100 mg/dL 06/13/2024 5:48 AM [facility] Calcium, Total,S 8.7 8.4 - 10.2 mg/dL 06/13/2024 5:48 AM [facility] Anion Gap 4 4 - 13 06/13/2024 5:48 AM [facility] Comment: The anion gap is calculated with the following formula: AGAP = Na ? (Cl + CO2). Fasting? Yes 06/13/2024 5:23 AM [facility] Blood (Blood, Venous) 06/13/2024 5:00 AM CDT 06/13/2024 5:23 AM CDT Shantell Lewis MD LAB BLOOD ORDERAB LES Performing Organization Address [facility]/ZIP Co de Phone Number [facility] [address] [place] [phone] * (ABNORMAL) CBC ([employer]) (06/13/2024 5:00 AM CDT) WBC 16.2(H) 3.5 - 10.5 K/uL 06/13/2024 5:33 AM T [facility] RBC 5.00 4.30 - 5.70 M/uL 06/13/2024 5:33 AM T [facility] Hemoglobin 14.8 13.5 - 17.5 g/dL 06/13/2024 5:33 AM T [facility] Hematocrit 46.7 38.0 - 50.0 % 06/13/2024 5:33 AM T [facility] Platelets 382 150 - 450 K/uL 06/13/2024 5:33 AM T [facility] MCV 93.4 81.2 - 95.1 fL 06/13/2024 5:33 AM T [facility] MCH 29.6 26.0 - 32.0 pg 06/13/2024 5:33 AM T [facility] MCHC 31.7(L) 32.0 - 36.0 g/dL 06/13/2024 5:33 AM T [facility] RDW 15.2 11.8 - 15.6 % 06/13/2024 5:33 AM [facility] NRBC %, Automated 0 % 06/13/2024 5:33 AM [facility] NRBC Absolute, Autmated 0.00 K/uL 06/13/2024 5:33 AM T [facility] Comment: 0-4 Days: 0.01 -0.02 >=5 Days: 0.00 Blood (Blood, Venous) 06/13/2024 5:00 AM CDT 06/13/2024 5:23 AM CDT Shantell Lewis MD LAB BLOOD ORDERAB LES [facility] [address] [place] [address] * (ABNORMAL) POCT Precision glucose (06/13/2024 12:06 AM CDT) Glucose Blood, POC 292(H) 70 - 100 mg/dL 06/13/2024 12:07 AM CDT [facility] Comment: Meter ID: [id number] Capillary whole blood specimens should not be [...] DOCKED DEVICE UNSOLICITED RESULTS Performing Organization Address [facility] de Phone Number [facility] [address] [place], [place] [phone] * (ABNORMAL) POCT Precision glucose (06/12/2024 7:12 PM CDT) Glucose Blood, POC 161(H) 70 - 100 mg/dL 06/12/2024 7:12 PM CDT [facility] Comment: Meter ID: [id number] Capillary whole blood specimens should not be [...] DOCKED DEVICE UNSOLICITED RESULTS Performing Organization Address [facility] Co de Phone Number [facility] [address] [place] [phone] * (ABNORMAL) POCT Precision glucose (06/12/2024 6:32 PM CDT) Glucose Blood, POC 120(H) 70 - 100 mg/dL 06/12/2024 6:33 PM CDT [facility] Comment: Meter ID: [id number] Capillary whole blood specimens should not be [...] DOCKED DEVICE UNSOLICITED RESULTS Performing Organization Address [facility] Co de Phone Number [facility] [address] [place] [address] * Tissue Culture, Anaerobic (06/12/2024 5:05 PM CDT) [facility] Tissue Culture, Anaerobic No Anaerobes isolated in 7 days 06/19/2024 12:28 PM CDT [facility] Gram Stain No organisms seen. No WBC's seen. 06/13/2024 12:19 PM CDT [facility] Swab (Foot, Right) 06/12/2024 5:05 PM CDT [facility] MICROBIOLOGY - G ENERAL ORDERABLES Performing Organization Address City/[facility]/ZIP Co de Phone Number [facility] [address] [place] [phone] * (ABNORMAL) Tissue culture, aerobic (06/12/2024 5:04 PM CDT) [facility] Gram Stain No organisms seen. No WBC's seen. 06/13/2024 12:20 PM CDT [facility] Tissue Culture, Aerobic Staphylococcus aureus Many Use oxacillin interpretation to predict results for anti-staphylococc al beta-lactam antibiotics (except ceftaroline). (A) 06/15/2024 8:41 AM CDT [facility] Swab (Foot, Right) 06/12/2024 5:04 PM CDT Narrative Organism Antibiotic Method Susceptibility Staphylococcus aureus Clindamycin <=0.5 mcg/mL: Susceptible Staphylococcus aureus Erythromycin <=0.5 mcg/mL: Susceptible Staphylococcus aureus Oxacillin 0.5 mcg/mL: Susceptible Staphylococcus aureus Tetracycline <=4 mcg/mL: Susceptible Staphylococcus aureus Trimeth/Sulfa <=0.5/9.5 mcg/mL: Susceptible [facility] MICROBIOLOGY - G ENERAL ORDERABLES Performing Organization Address [facility]/ZIP Co de Phone Number [facility] [address] [place] [phone] * (ABNORMAL) POCT Precision glucose (06/12/2024 11:59 AM CDT) Glucose Blood, POC 177(H) 70 - 100 mg/dL 06/12/2024 12:00 PM CDT [facility] Comment: Meter ID: [id number] Capillary whole blood specimens should not be [...] DOCKED DEVICE UNSOLICITED RESULTS Performing Organization Address [facility]/ZIP Co de Phone Number [facility] [address] [place] [phone] * Estimated Glomerular Filtration Rate (eGFR) (06/12/2024 5:40 AM CDT) Estimated Glomerular Filtration Rate (eGFR) >60 06/12/2024 6:15 AM CDT [facility] Comment: GFR calculated from serum creatinine value Chronic Kidney Disease less than 60 mL/min/1.73 m2 Kidney Failure less than 15 mL/min/1.73 m2 Note: effective 10/17/2022: 2020 CKD-EPI Equation used 06/12/2024 5:40 AM CDT 06/12/2024 5:40 AM CDT Steve Lopez DP LAB BLOOD ORDERABLES [facility] [address] [place] [address] * (ABNORMAL) Basic metabolic panel (06/12/2024 5:40 AM CDT) Sodium 137 135 - 145 mEq/L 06/12/2024 6:15 AM [facility] Potassium 4.2 3.5 - 5.1 mEq/L 06/12/2024 6:15 AM [facility] Chloride 103 98 - 107 mEq/L 06/12/2024 6:15 AM [facility] CO2 29 22 - 31 mmol/L 06/12/2024 6:15 AM [facility] Creatinine 1.13 0.60 - 1.40 mg/dL 06/12/2024 6:15 AM [facility] BUN 25 5 - 25 mg/dL 06/12/2024 6:15 AM [facility] Glucose 172(H) 70 - 100 mg/dL 06/12/2024 6:15 AM [facility] Calcium, Total,S 9.2 8.4 - 10.2 mg/dL 06/12/2024 6:15 AM [facility] Anion Gap 5 4 - 13 06/12/2024 6:15 AM [facility] Comment: The anion gap is calculated with the following formula: AGAP = Na ? (Cl + CO2). Fasting? Yes 06/12/2024 5:58 AM [facility] Blood (Blood, Venous) 06/12/2024 5:40 AM CDT 06/12/2024 5:57 AM CDT Shantell Lewis MD LAB BLOOD ORDERAB LES [facility] [address] [place] [address] * (ABNORMAL) CBC ([employer]) (06/12/2024 5:40 AM CDT) WBC 14.4(H) 3.5 - 10.5 K/uL 06/12/2024 5:59 AM CDT [facility] RBC 5.22 4.30 - 5.70 M/uL 06/12/2024 5:59 AM T [facility] Hemoglobin 15.5 13.5 - 17.5 g/dL 06/12/2024 5:59 AM T [facility] Hematocrit 48.2 38.0 - 50.0 % 06/12/2024 5:59 AM T [facility] Platelets 396 150 - 450 K/uL 06/12/2024 5:59 AM CDT [facility] MCV 92.3 81.2 - 95.1 fL 06/12/2024 5:59 AM T [facility] MCH 29.7 26.0 - 32.0 pg 06/12/2024 5:59 AM T [facility] MCHC 32.2 32.0 - 36.0 g/dL 06/12/2024 5:59 AM T [facility] RDW 15.1 11.8 - 15.6 % 06/12/2024 5:59 AM T [facility] NRBC %, Automated 0 % 06/12/2024 5:59 AM T [facility] NRBC Absolute, Autmated 0.00 K/uL 06/12/2024 5:59 AM T [facility] Comment: 0-4 Days: 0.01 -0.02 >=5 Days: 0.00 Blood (Blood, Venous) 06/12/2024 5:40 AM CDT 06/12/2024 5:57 AM CDT Shantell Lewis MD LAB BLOOD ORDERAB LES Performing Organization Address [facility] Co de Phone Number [facility] [address] [place] [phone] * (ABNORMAL) POCT Precision glucose (06/11/2024 9:29 PM CDT) Glucose Blood, POC 300(H) 70 - 100 mg/dL 06/11/2024 9:39 PM CDT [facility] Comment: Meter ID: [id number] Capillary whole blood specimens should not be [...] DOCKED DEVICE UNSOLICITED RESULTS Performing Organization Address [facility] de Phone Number [facility] [address] [place] [phone] * (ABNORMAL) POCT Precision glucose (06/11/2024 4:47 PM CDT) Glucose Blood, POC 257(H) 70 - 100 mg/dL 06/11/2024 4:48 PM CDT [facility] Comment: Meter ID: [id number] Capillary whole blood specimens should not be [...] DOCKED DEVICE UNSOLICITED RESULTS Performing Organization Address [facility] de Phone Number [facility] [address] [place] [phone] * (ABNORMAL) POCT Precision glucose (06/11/2024 11:29 AM CDT) Glucose Blood, POC 252(H) 70 - 100 mg/dL 06/11/2024 11:29 AM CDT [facility] Comment: Meter ID: [id number] Capillary whole blood specimens should not be [...] DOCKED DEVICE UNSOLICITED RESULTS Performing Organization Address [facility] de Phone Number [facility] [address] [place] [phone] * (ABNORMAL) POCT Precision glucose (06/11/2024 7:34 AM CDT) Glucose Blood, POC 168(H) 70 - 100 mg/dL 06/11/2024 7:35 AM CDT [facility] Comment: Meter ID: [id number] Capillary whole blood specimens should not be [...] DOCKED DEVICE UNSOLICITED RESULTS Performing Organization Address [facility] Co de Phone Number [facility] [address] [place] [address] * Estimated Glomerular Filtration Rate (eGFR) (06/11/2024 6:10 AM CDT) Estimated Glomerular Filtration Rate (eGFR) >60 06/11/2024 7:10 AM T [facility] Comment: GFR calculated from serum creatinine value Chronic Kidney Disease less than 60 mL/min/1.73 m2 Kidney Failure less than 15 mL/min/1.73 m2 Note: effective 10/17/2022: 2020 CKD-EPI Equation used 06/11/2024 6:10 AM CDT 06/11/2024 6:10 AM CDT Steve SILVA LAB BLOOD ORDERABLES Performing Organization Address [facility] Co de Phone Number [facility] [address] [place] [phone] * (ABNORMAL) Basic metabolic panel (06/11/2024 6:10 AM CDT) Sodium 138 135 - 145 mEq/L 06/11/2024 7:10 AM [facility] Potassium 4.2 3.5 - 5.1 mEq/L 06/11/2024 7:10 AM [facility] Chloride 104 98 - 107 mEq/L 06/11/2024 7:10 AM [facility] CO2 25 22 - 31 mmol/L 06/11/2024 7:10 AM [facility] Creatinine 1.20 0.60 - 1.40 mg/dL 06/11/2024 7:10 AM [facility] BUN 24 5 - 25 mg/dL 06/11/2024 7:10 AM [facility] Glucose 173(H) 70 - 100 mg/dL 06/11/2024 7:10 AM [facility] Calcium, Total,S 9.5 8.4 - 10.2 mg/dL 06/11/2024 7:10 AM [facility] Anion Gap 9 4 - 13 06/11/2024 7:10 AM [facility] Comment: The anion gap is calculated with the following formula: AGAP = Na ? (Cl + CO2). Fasting? Yes 06/11/2024 6:49 AM [facility] Blood (Blood, Venous) 06/11/2024 6:10 AM CDT 06/11/2024 6:49 AM CDT Shantell Lewis MD LAB BLOOD ORDERAB LES [facility] [address] [place] [address] * (ABNORMAL) CBC ([employer]) (06/11/2024 6:10 AM CDT) WBC 14.5(H) 3.5 - 10.5 K/uL 06/11/2024 6:53 AM [facility] RBC 5.09 4.30 - 5.70 M/uL 06/11/2024 6:53 AM [facility] Hemoglobin 15.3 13.5 - 17.5 g/dL 06/11/2024 6:53 AM [facility] Hematocrit 46.8 38.0 - 50.0 % 06/11/2024 6:53 AM [facility] Platelets 389 150 - 450 K/uL 06/11/2024 6:53 AM [facility] MCV 91.9 81.2 - 95.1 fL 06/11/2024 6:53 AM [facility] MCH 30.1 26.0 - 32.0 pg 06/11/2024 6:53 AM [facility] MCHC 32.7 32.0 - 36.0 g/dL 06/11/2024 6:53 AM [facility] RDW 15.3 11.8 - 15.6 % 06/11/2024 6:53 AM [facility] NRBC %, Automated 0 % 06/11/2024 6:53 AM CDT [facility] NRBC Absolute, Autmated 0.00 K/uL 06/11/2024 6:53 AM CDT [facility] Comment: 0-4 Days: 0.01 -0.02 >=5 Days: 0.00 Blood (Blood, Venous) 06/11/2024 6:10 AM CDT 06/11/2024 6:49 AM CDT Shantell Lewis MD LAB BLOOD ORDERAB LES [facility] [address] [place] [address] * (ABNORMAL) POCT Precision glucose (06/10/2024 9:46 PM CDT) Glucose Blood, POC 149(H) 70 - 100 mg/dL 06/10/2024 9:46 PM CDT [facility] Comment: Meter ID: [id number] Capillary whole blood specimens should not be [...] OF CARE TEST DOCKED DEVICE UNSOLICITED RESULTS [facility] [address] [place], [place] [phone] * (ABNORMAL) POCT Precision glucose (06/10/2024 5:10 PM CDT) Glucose Blood, POC 230(H) 70 - 100 mg/dL 06/10/2024 5:10 PM CDT [facility] Comment: Meter ID: [id number] Capillary whole blood specimens should not be [...] DOCKED DEVICE UNSOLICITED RESULTS Performing Organization Address [facility] Co de Phone Number [facility] [address] [place], [place] [address] * (ABNORMAL) POCT Precision glucose (06/10/2024 11:33 AM CDT) Glucose Blood, POC 286(H) 70 - 100 mg/dL 06/10/2024 11:34 AM CDT [facility] Comment: Meter ID: [id number] Capillary whole blood specimens should not be [...] OF CARE TEST DOCKED DEVICE UNSOLICITED RESULTS [facility] [address] [place] [phone] * (ABNORMAL) POCT Precision glucose (06/10/2024 6:31 AM CDT) Glucose Blood, POC 170(H) 70 - 100 mg/dL 06/10/2024 6:31 AM CDT [facility] Comment: Meter ID: [id number] Capillary whole blood specimens should not be [...] DOCKED DEVICE UNSOLICITED RESULTS Performing Organization Address [facility] de Phone Number [facility] [address] [place] [phone] * Estimated Glomerular Filtration Rate (eGFR) (06/10/2024 5:54 AM CDT) Estimated Glomerular Filtration Rate (eGFR) >60 06/10/2024 6:13 AM CDT [facility] Comment: GFR calculated from serum creatinine value Chronic Kidney Disease less than 60 mL/min/1.73 m2 Kidney Failure less than 15 mL/min/1.73 m2 Note: effective 10/17/2022: 2020 CKD-EPI Equation used 06/10/2024 5:54 AM CDT 06/10/2024 5:54 AM CDT Steve Lopez DP LAB BLOOD ORDERABLES Performing Organization Address [facility] de Phone Number [facility] [address] [place] [phone] * (ABNORMAL) Basic metabolic panel (06/10/2024 5:54 AM CDT) Sodium 138 135 - 145 mEq/L 06/10/2024 6:13 AM CDT [facility] Potassium 4.2 3.5 - 5.1 mEq/L 06/10/2024 6:13 AM CDT [facility] Chloride 107 98 - 107 mEq/L 06/10/2024 6:13 AM [facility] CO2 24 22 - 31 mmol/L 06/10/2024 6:13 AM [facility] Creatinine 1.23 0.60 - 1.40 mg/dL 06/10/2024 6:13 AM [facility] BUN 24 5 - 25 mg/dL 06/10/2024 6:13 AM [facility] Glucose 139(H) 70 - 100 mg/dL 06/10/2024 6:13 AM [facility] Calcium, Total,S 9.3 8.4 - 10.2 mg/dL 06/10/2024 6:13 AM [facility] Anion Gap 7 4 - 13 06/10/2024 6:13 AM [facility] Comment: The anion gap is calculated with the following formula: AGAP = Na ? (Cl + CO2). Fasting? Yes 06/10/2024 6:01 AM [facility] Blood (Blood, Venous) 06/10/2024 5:54 AM CDT 06/10/2024 6:01 AM CDT Shantell Lewis MD LAB BLOOD ORDERAB LES [facility] [address] [place] [address] * (ABNORMAL) CBC ([employer]) (06/10/2024 5:54 AM CDT) WBC 15.2(H) 3.5 - 10.5 K/uL 06/10/2024 6:07 AM [facility] RBC 5.00 4.30 - 5.70 M/uL 06/10/2024 6:07 AM [facility] Hemoglobin 15.2 13.5 - 17.5 g/dL 06/10/2024 6:07 AM [facility] Hematocrit 47.1 38.0 - 50.0 % 06/10/2024 6:07 AM [facility] Platelets 347 150 - 450 K/uL 06/10/2024 6:07 AM [facility] MCV 94.2 81.2 - 95.1 fL 06/10/2024 6:07 AM [facility] MCH 30.4 26.0 - 32.0 pg 06/10/2024 6:07 AM [facility] MCHC 32.3 32.0 - 36.0 g/dL 06/10/2024 6:07 AM [facility] RDW 15.6 11.8 - 15.6 % 06/10/2024 6:07 AM [facility] NRBC %, Automated 0 % 06/10/2024 6:07 AM [facility] NRBC Absolute, Autmated 0.00 K/uL 06/10/2024 6:07 AM [facility] Comment: 0-4 Days: 0.01 -0.02 >=5 Days: 0.00 Blood (Blood, Venous) 06/10/2024 5:54 AM CDT 06/10/2024 6:01 AM CDT Shantell Lewis MD LAB BLOOD ORDERAB LES [facility] [address] [place], [place] [id number] * (ABNORMAL) POCT Precision glucose (06/09/2024 11:24 PM CDT) Glucose Blood, POC 141(H) 70 - 100 mg/dL 06/09/2024 11:24 PM CDT [facility] Comment: Meter ID: [id number] Capillary whole blood specimens should not be [...] DOCKED DEVICE UNSOLICITED RESULTS Performing Organization Address [facility] Healthcare/[facility] de Phone Number [facility] [address] [place], [place] [phone] * (ABNORMAL) POCT Precision glucose (06/09/2024 6:27 PM CDT) Glucose Blood, POC 216(H) 70 - 100 mg/dL 06/09/2024 6:27 PM CDT [facility] Comment: Meter ID: [id number] Capillary whole blood specimens should not be [...] DOCKED DEVICE UNSOLICITED RESULTS Performing Organization Address [facility] de Phone Number [facility] [address] [place] [phone] * Vancomycin (06/09/2024 11:38 AM CDT) Pathologist [facility] Vancomycin 22.9 mcg/mL 06/09/2024 2:13 PM CDT [facility] Comment: Target Therapeutic Levels: ? General ?? 10-15 mcg/mL ? Pneumonia 15-20 mcg/mL Last Dose Date 06/09/2024 2:14 PM CDT [facility] Last Dose Time 1010 AM 06/09/2024 2:14 PM CDT [facility] Blood (Blood, Venous) 06/09/2024 11:38 AM CDT 06/09/2024 11:49 AM CDT Shantell Lewis MD LAB BLOOD ORDERAB LES Performing Organization Address [facility] de Phone Number [facility] [address] [place] [address] * (ABNORMAL) POCT Precision glucose (06/09/2024 11:00 AM CDT) Pathologist [facility] Glucose Blood, POC 242(H) 70 - 100 mg/dL 06/09/2024 11:01 AM CDT [facility] Comment: Meter ID: [id number] Capillary whole blood specimens should not be [...] DEVICE UNSOLICITED RESULTS Performing Organization Address [facility] Phone Number [facility] [address] [place], [place] [phone] * MRSA, by PCR, Nasal (06/09/2024 9:50 AM CDT) [facility] MRSA PCR NASAL NOT DETECTED Not Detected 06/09/2024 11:20 AM CDT [facility] Comment: MRSA DNA is not detected. Testing performed on the [employer] GeneXpert utilizing the MRSA NxG assay (real-time polymerase chain reaction (PCR) for the amplification of MRSA with targets to mecA/mecC and SCCmec) Swab (Nasal) 06/09/2024 9:50 AM CDT 06/09/2024 10:07 AM CDT Shantell Lewsi MD LAB MICROBIOLOGY - GENERAL ORDERABLES Performing Organization Address [facility] de Phone Number [facility] [address] [place] [phone] * (ABNORMAL) POCT Precision glucose (06/09/2024 6:39 AM CDT) [facility] Glucose Blood, POC 116(H) 70 - 100 mg/dL 06/09/2024 6:39 AM CDT [facility] Comment: Meter ID: [id number] Capillary whole blood specimens should not be [...] DOCKED DEVICE UNSOLICITED RESULTS Performing Organization Address City/[facility]/ZIP Co de Phone Number [facility] [address] [place] [address] * Estimated Glomerular Filtration Rate (eGFR) (06/09/2024 6:05 AM CDT) [facility] Estimated Glomerular Filtration Rate (eGFR) >60 06/09/2024 6:49 AM CDT [facility] Comment: GFR calculated from serum creatinine value Chronic Kidney Disease less than 60 mL/min/1.73 m2 Kidney Failure less than 15 mL/min/1.73 m2 Note: effective 10/17/2022: 2020 CKD-EPI Equation used 06/09/2024 6:05 AM CDT 06/09/2024 6:05 AM CDT Steve SILVAM LAB BLOOD ORDERABLES [facility] [address] [place] [address] * (ABNORMAL) Basic metabolic panel (06/09/2024 6:05 AM CDT) [facility] Sodium 137 135 - 145 mEq/L 06/09/2024 6:49 AM T [facility] Potassium 4.2 3.5 - 5.1 mEq/L 06/09/2024 6:49 AM [facility] Chloride 108(H) 98 - 107 mEq/L 06/09/2024 6:49 AM T [facility] CO2 24 22 - 31 mmol/L 06/09/2024 6:49 AM [facility] Creatinine 1.21 0.60 - 1.40 mg/dL 06/09/2024 6:49 AM [facility] BUN 29(H) 5 - 25 mg/dL 06/09/2024 6:49 AM [facility] Glucose 113(H) 70 - 100 mg/dL 06/09/2024 6:49 AM [facility] Calcium, Total,S 9.2 8.4 - 10.2 mg/dL 06/09/2024 6:49 AM [facility] Anion Gap 5 4 - 13 06/09/2024 6:49 AM [facility] Comment: The anion gap is calculated with the following formula: AGAP = Na ? (Cl + CO2). Fasting? Yes 06/09/2024 6:32 AM [facility] Blood (Blood, Venous) 06/09/2024 6:05 AM CDT 06/09/2024 6:31 AM T Shantell Lewis MD LAB BLOOD ORDERAB LES [facility] [address] [place] [address] * (ABNORMAL) CBC ([employer]) (06/09/2024 6:05 AM CDT) Pathologist [facility] WBC 13.8(H) 3.5 - 10.5 K/uL 06/09/2024 6:37 AM [facility] RBC 5.05 4.30 - 5.70 M/uL 06/09/2024 6:37 AM [facility] Hemoglobin 14.9 13.5 - 17.5 g/dL 06/09/2024 6:37 AM [facility] Hematocrit 47.0 38.0 - 50.0 % 06/09/2024 6:37 AM [facility] Platelets 334 150 - 450 K/uL 06/09/2024 6:37 AM [facility] MCV 93.1 81.2 - 95.1 fL 06/09/2024 6:37 AM [facility] MCH 29.5 26.0 - 32.0 pg 06/09/2024 6:37 AM [facility] MCHC 31.7(L) 32.0 - 36.0 g/dL 06/09/2024 6:37 AM [facility] RDW 15.4 11.8 - 15.6 % 06/09/2024 6:37 AM [facility] NRBC %, Automated 0 % 06/09/2024 6:37 AM [facility] NRBC Absolute, Autmated 0.00 K/uL 06/09/2024 6:37 AM [facility] Comment: 0-4 Days: 0.01 -0.02 >=5 Days: 0.00 Blood (Blood, Venous) 06/09/2024 6:05 AM CDT 06/09/2024 6:31 AM CDT Shantell Lewis MD LAB BLOOD ORDERAB LES [facility] [address] [place] [address] * (ABNORMAL) POCT Precision glucose (06/08/2024 9:53 PM CDT) [facility] Glucose Blood, POC 168(H) 70 - 100 mg/dL 06/08/2024 9:53 PM T [facility] Comment: Meter ID: [id number] Capillary whole blood specimens should not be [...] DOCKED DEVICE UNSOLICITED RESULTS Performing Organization Address [facility] Co de Phone Number [facility] [address] [place] [phone] * (ABNORMAL) POCT Precision glucose (06/08/2024 3:44 PM CDT) [facility] Glucose Blood, POC 104(H) 70 - 100 mg/dL 06/08/2024 3:45 PM CDT [facility] Comment: Meter ID: [id number] Capillary whole blood specimens should not be [...] DOCKED DEVICE UNSOLICITED RESULTS Performing Organization Address [facility] Co de Phone Number [facility] [address] [place] [phone] * Mini C-arm Fluoroscopy up to 1 [...] - 100 mg/dL 06/08/2024 3:08 PM CDT [facility] Comment: Meter ID: [id number] Capillary whole blood specimens should not be [...] OF CARE TEST DOCKED DEVICE UNSOLICITED RESULTS [facility] [address] [place] [address] * Pathology (06/08/2024 2:11 PM CDT) Tissue (Toe, Right) 06/08/2024 2:11 PM CDT Tissue (Foot, Right) 06/08/2024 2:38 PM CDT Narrative [facility] - 06/19/2024 2:53 PM CDT ? [facility] ? [address] ?[place] [address] ? Patient: ?KARIN DAVIS ? Procedure: ? 06/08/2024 14:11 /Age/Sex: ??1955, 69 Y, M ?Received: ?06/09/2024 08:04 ?Accession #: ?? [id number] Billing: ?[id number] ? Patient Location: Discharged Ordered by: ?? STEVE LOPEZ DPM ? Attending: ? 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 GROSS DESCRIPTION: The [...] specimen is submitted into decal on 06/09/2024. Epic [facility] [employer] sections are submitted into cassettes A1-A2 on [...] in cassette B1 on 06/18/2024. LAMONT CALLEJAS ([facility]) CM Patient's identification labels match on requisition [...] ? Page 1 of 1 [facility] [place] [facility] [address] [place] [address] * Tissue Culture, Anaerobic (06/08/2024 2:10 PM CDT) Arvin Kaur Tissue Culture, Anaerobic No Anaerobes isolated in 7 days 06/15/2024 1:22 PM CDT [facility] Gram Stain Few gram positive cocci, pairs and clusters. Few WBC'S. 06/09/2024 11:56 AM CDT [facility] Swab (Toe, Right) 06/08/2024 2:10 PM CDT [facility] MICROBIOLOGY - G ENERAL ORDERABLES Performing Organization Address [facility] Co de Phone Number [facility] [address] [place] [phone] * (ABNORMAL) Tissue culture, aerobic (06/08/2024 2:10 PM CDT) Gram Stain Rare gram positive cocci, pairs. Rare WBC'S. 06/09/2024 11:54 AM CDT [facility] Tissue Culture, Aerobic Staphylococcus aureus Many Use oxacillin interpretation to predict results for anti-staphylococc al beta-lactam antibiotics (except ceftaroline). (A) 06/10/2024 11:05 AM CDT [facility] Swab (Toe, Right) 06/08/2024 2:10 PM CDT Narrative Organism Antibiotic Method Susceptibility Staphylococcus aureus Clindamycin <=0.5 mcg/mL: Susceptible Staphylococcus aureus Erythromycin <=0.5 mcg/mL: Susceptible Staphylococcus aureus Oxacillin <=0.25 mcg/mL: Susceptible Staphylococcus aureus Tetracycline <=4 mcg/mL: Susceptible Staphylococcus aureus Trimeth/Sulfa <=0.5/9.5 mcg/mL: Susceptible [facility] MICROBIOLOGY - G ENERAL ORDERABLES Performing Organization Address [facility] Co de Phone Number [facility] [address] [place] [phone] * POCT Precision glucose (06/08/2024 12:30 PM CDT) Glucose Blood, POC 83 70 - 100 mg/dL 06/08/2024 12:30 PM CDT [facility] Comment: Meter ID: [id number] Capillary whole blood specimens should not be [...] DOCKED DEVICE UNSOLICITED RESULTS Performing Organization Address [facility] Co de Phone Number [facility] [address] [place], [place] [address] * POCT Precision glucose (06/08/2024 8:45 AM CDT) Glucose Blood, POC 81 70 - 100 mg/dL 06/08/2024 8:45 AM CDT [facility] Comment: Meter ID: [id number] Capillary whole blood specimens should not be [...] DOCKED DEVICE UNSOLICITED RESULTS Performing Organization Address [facility] Co de Phone Number [facility] [address] [place], [place] [phone] * POCT Precision glucose (06/08/2024 7:08 AM CDT) Glucose Blood, POC 80 70 - 100 mg/dL 06/08/2024 7:08 AM CDT [facility] Comment: Meter ID: [id number] Capillary whole blood specimens should not be [...] DOCKED DEVICE UNSOLICITED RESULTS Performing Organization Address [facility] de Phone Number [facility] [address] [place] [address] * (ABNORMAL) Estimated Glomerular Filtration Rate (eGFR) (06/08/2024 6:05 AM CDT) Estimated Glomerular Filtration Rate (eGFR) 58(A) 06/08/2024 7:07 AM T [facility] Comment: GFR calculated from serum creatinine value Chronic Kidney Disease less than 60 mL/min/1.73 m2 Kidney Failure less than 15 mL/min/1.73 m2 Note: effective 10/17/2022: 2020 CKD-EPI Equation used 06/08/2024 6:05 AM CDT 06/08/2024 6:05 AM CDT Shantell Lewis MD LAB BLOOD ORDERAB LES Performing Organization Address [facility] de Phone Number [facility] [address] [place], [place] [phone] * (ABNORMAL) Basic metabolic panel (06/08/2024 6:05 AM CDT) Sodium 138 135 - 145 mEq/L 06/08/2024 7:07 AM T [facility] Potassium 3.9 3.5 - 5.1 mEq/L 06/08/2024 7:07 AM T [facility] Chloride 109(H) 98 - 107 mEq/L 06/08/2024 7:07 AM T [facility] CO2 21(L) 22 - 31 mmol/L 06/08/2024 7:07 AM T [facility] Creatinine 1.33 0.60 - 1.40 mg/dL 06/08/2024 7:07 AM T [facility] BUN 36(H) 5 - 25 mg/dL 06/08/2024 7:07 AM [facility] Glucose 84 70 - 100 mg/dL 06/08/2024 7:07 AM [facility] Calcium, Total,S 8.9 8.4 - 10.2 mg/dL 06/08/2024 7:07 AM [facility] Anion Gap 8 4 - 13 06/08/2024 7:07 AM [facility] Comment: The anion gap is calculated with the following formula: AGAP = Na ? (Cl + CO2). Fasting? Yes 06/08/2024 6:57 AM [facility] Blood (Blood, Venous) 06/08/2024 6:05 AM CDT 06/08/2024 6:56 AM CDT Shantell Lewis MD LAB BLOOD ORDERAB LES Performing Organization Address City/State/[facility] Co de Phone Number [facility] [address] [place] [address] * (ABNORMAL) CBC ([employer]) (06/08/2024 6:05 AM CDT) WBC 14.2(H) 3.5 - 10.5 K/uL 06/08/2024 6:58 AM [facility] RBC 4.80 4.30 - 5.70 M/uL 06/08/2024 6:58 AM [facility] Hemoglobin 14.5 13.5 - 17.5 g/dL 06/08/2024 6:58 AM [facility] Hematocrit 44.6 38.0 - 50.0 % 06/08/2024 6:58 AM [facility] Platelets 298 150 - 450 K/uL 06/08/2024 6:58 AM [facility] MCV 92.9 81.2 - 95.1 fL 06/08/2024 6:58 AM [facility] MCH 30.2 26.0 - 32.0 pg 06/08/2024 6:58 AM [facility] MCHC 32.5 32.0 - 36.0 g/dL 06/08/2024 6:58 AM CDT [facility] RDW 15.1 11.8 - 15.6 % 06/08/2024 6:58 AM CDT [facility] NRBC %, Automated 0 % 06/08/2024 6:58 AM CDT [facility] NRBC Absolute, Autmated 0.00 K/uL 06/08/2024 6:58 AM CDT [facility] Comment: 0-4 Days: 0.01 -0.02 >=5 Days: 0.00 Blood (Blood, Venous) 06/08/2024 6:05 AM CDT 06/08/2024 6:56 AM CDT Shantell Lewis MD LAB BLOOD ORDERAB LES Performing Organization Address [facility]/ZIP Co de Phone Number [facility] [address] [place], [place] [address] * (ABNORMAL) POCT Precision glucose (06/07/2024 11:05 PM CDT) [facility] Signature Glucose Blood, POC 141(H) 70 - 100 mg/dL 06/07/2024 11:05 PM CDT [facility] Comment: Meter ID: [id number] Capillary whole blood specimens should not be [...] DOCKED DEVICE UNSOLICITED RESULTS Performing Organization Address [facility]/ZIP Co de Phone Number [facility] [address] [place], [place] [phone] * POCT Precision glucose (06/07/2024 5:42 PM CDT) Glucose Blood, POC 95 70 - 100 mg/dL 06/07/2024 5:42 PM CDT [facility] Comment: Meter ID: [id number] Capillary whole blood specimens should not be [...] DOCKED DEVICE UNSOLICITED RESULTS Performing Organization Address [facility] Phone Number [facility] [address] [place], [place] [phone] * POCT Precision glucose (06/07/2024 12:04 PM CDT) Glucose Blood, POC 92 70 - 100 mg/dL 06/07/2024 12:04 PM CDT [facility] Comment: Meter ID: [id number] Capillary whole blood specimens should not be [...] DOCKED DEVICE UNSOLICITED RESULTS Performing Organization Address [facility] Phone Number [facility] [address] [place] [address] * POCT Precision glucose (06/07/2024 7:17 AM CDT) Pathologist [facility] Glucose Blood, POC 99 70 - 100 mg/dL 06/07/2024 7:17 AM CDT [facility] Comment: Meter ID: [id number] Capillary whole blood specimens should not be [...] DOCKED DEVICE UNSOLICITED RESULTS Performing Organization Address [facility] Co de Phone Number [facility] [address] [place], [place] [phone] * (ABNORMAL) Estimated Glomerular Filtration Rate (eGFR) (06/07/2024 5:13 AM CDT) [facility] Estimated Glomerular Filtration Rate (eGFR) 40(A) 06/07/2024 5:46 AM CDT [facility] Comment: GFR calculated from serum creatinine value Chronic Kidney Disease less than 60 mL/min/1.73 m2 Kidney Failure less than 15 mL/min/1.73 m2 Note: effective 10/17/2022: 2020 CKD-EPI Equation used 06/07/2024 5:13 AM CDT 06/07/2024 5:13 AM CDT Shantell Lewis MD LAB BLOOD ORDERAB LES Performing Organization Address [facility] Co de Phone Number [facility] [address] [place] [address] * (ABNORMAL) Basic metabolic panel (06/07/2024 5:13 AM CDT) [facility] Sodium 138 135 - 145 mEq/L 06/07/2024 5:46 AM CDT [facility] Potassium 4.0 3.5 - 5.1 mEq/L 06/07/2024 5:46 AM [facility] Chloride 107 98 - 107 mEq/L 06/07/2024 5:46 AM [facility] CO2 22 22 - 31 mmol/L 06/07/2024 5:46 AM [facility] Creatinine 1.81(H) 0.60 - 1.40 mg/dL 06/07/2024 5:46 AM [facility] BUN 55(H) 5 - 25 mg/dL 06/07/2024 5:46 AM [facility] Glucose 125(H) 70 - 100 mg/dL 06/07/2024 5:46 AM [facility] Calcium, Total,S 9.1 8.4 - 10.2 mg/dL 06/07/2024 5:46 AM [facility] Anion Gap 9 4 - 13 06/07/2024 5:46 AM [facility] Comment: The anion gap is calculated with the following formula: AGAP = Na ? (Cl + CO2). Fasting? Yes 06/07/2024 5:19 AM [facility] Blood (Blood, Venous) 06/07/2024 5:13 AM CDT 06/07/2024 5:18 AM CDT Shantell Lewis MD LAB BLOOD ORDERAB LES [facility] [address] [place] [phone] * (ABNORMAL) CBC ([employer]) (06/07/2024 5:13 AM CDT) WBC 16.4(H) 3.5 - 10.5 K/uL 06/07/2024 5:39 AM [facility] RBC 4.95 4.30 - 5.70 M/uL 06/07/2024 5:39 AM [facility] Hemoglobin 14.8 13.5 - 17.5 g/dL 06/07/2024 5:39 AM [facility] Hematocrit 45.4 38.0 - 50.0 % 06/07/2024 5:39 AM T [facility] Platelets 281 150 - 450 K/uL 06/07/2024 5:39 AM T [facility] MCV 91.7 81.2 - 95.1 fL 06/07/2024 5:39 AM CDT [facility] MCH 29.9 26.0 - 32.0 pg 06/07/2024 5:39 AM CDT [facility] MCHC 32.6 32.0 - 36.0 g/dL 06/07/2024 5:39 AM T [facility] RDW 15.1 11.8 - 15.6 % 06/07/2024 5:39 AM T [facility] NRBC %, Automated 0 % 06/07/2024 5:39 AM [facility] NRBC Absolute, Autmated 0.00 K/uL 06/07/2024 5:39 AM T [facility] Comment: 0-4 Days: 0.01 -0.02 >=5 Days: 0.00 Blood (Blood, Venous) 06/07/2024 5:13 AM CDT 06/07/2024 5:18 AM CDT Shantell Lewis MD LAB BLOOD ORDERAB LES [facility] [address] [place] [address] * Vancomycin (06/07/2024 5:13 AM CDT) Vancomycin 9.6 mcg/mL 06/07/2024 7:00 AM T [facility] Comment: Target Therapeutic Levels: ? General ?? 10-15 mcg/mL ? Pneumonia 15-20 mcg/mL Last Dose Date 4 06/07/2024 7:02 AM CDT [facility] Last Dose Time 1040 06/07/2024 7:02 AM CDT [facility] Blood (Blood, Venous) 06/07/2024 5:13 AM CDT 06/07/2024 5:18 AM CDT Shantell Lewis MD LAB BLOOD ORDERAB LES Performing Organization Address [facility] de Phone Number [facility] [address] [place] [phone] * (ABNORMAL) POCT Precision glucose (06/06/2024 10:25 PM CDT) Glucose Blood, POC 220(H) 70 - 100 mg/dL 06/06/2024 10:25 PM CDT [facility] Comment: Meter ID: [id number] Capillary whole blood specimens should not be [...] DOCKED DEVICE UNSOLICITED RESULTS Performing Organization Address [facility] de Phone Number [facility] [address] [place] [address] * (ABNORMAL) POCT Precision glucose (06/06/2024 6:15 PM CDT) Glucose Blood, POC 229(H) 70 - 100 mg/dL 06/06/2024 6:16 PM CDT [facility] Comment: Meter ID: [id number] Capillary whole blood specimens should not be [...] DOCKED DEVICE UNSOLICITED RESULTS Performing Organization Address [facility] de Phone Number [facility] [address] [place] [phone] * (ABNORMAL) POCT Precision glucose (06/06/2024 1:56 PM CDT) Glucose Blood, POC 249(H) 70 - 100 mg/dL 06/06/2024 1:56 PM CDT [facility] Comment: Meter ID: [id number] Capillary whole blood specimens should not be [...] DOCKED DEVICE UNSOLICITED RESULTS Performing Organization Address [facility] de Phone Number [facility] [address] [place] [phone] * MRI foot right wo IV contrast [...] Signed) Lazaro Chin APRN, CNP IMG MRI CA OCEDURES * (ABNORMAL) Estimated Glomerular Filtration Rate (eGFR) (06/06/2024 10:00 AM CDT) Estimated Glomerular Filtration Rate (eGFR) 26(A) 06/06/2024 10:27 AM CDT [facility] Comment: GFR calculated from serum creatinine value Chronic Kidney Disease less than 60 mL/min/1.73 m2 Kidney Failure less than 15 mL/min/1.73 m2 Note: effective 10/17/2022: 2020 CKD-EPI Equation used 06/06/2024 10:0 0 AM CDT 06/06/2024 10:00 AM CDT Lazaro Chin APRN, CNP LAB BLOOD ORDERABLES [facility] [address] [place] [address] * Morphology (06/06/2024 10:00 AM CDT) Slide Review PERFORMED 06/06/2024 10:30 AM CDT [facility] RBC Morphology NORMAL 06/06/2024 10:30 AM CDT [facility] PLT Morphology ADEQUATE 06/06/2024 10:30 AM CDT [facility] 06/06/2024 10:0 0 AM CDT 06/06/2024 10:04 AM CDT Lazaro Chin APRN, CNP LAB BODY F LUIDS AND STOOLS ORDERABLES Performing Organization Address [facility] Co de Phone Number [facility] [address] [place] [phone] * Reflexed Manual Diff (06/06/2024 10:00 AM CDT) Manual Differential PERFORMED 06/06/2024 10:30 AM CDT [facility] Total Counted 100 06/06/2024 10:29 AM CDT [facility] 06/06/2024 10:0 0 AM CDT 06/06/2024 10:04 AM CDT Lazaro Chin APRN, CNP LAB BLOOD ORDERABLES Performing Organization Address [facility] Phone Number [facility] [address] [place] [phone] * Blood gas, venous (06/06/2024 10:00 AM CDT) pH, Jorge 7.37 7.32 - 7.43 06/06/2024 10:14 AM CDT [facility] pCO2, Jorge 44 41 - 54 mm Hg 06/06/2024 10:14 AM CDT [facility] HCO3, Venous 25.4 22.0 - 29.0 mmol/L 06/06/2024 10:14 AM CDT [facility] Base Excess/Deficit Venous -0.2 -2.0 - 3.0 mmol/L 06/06/2024 10:14 AM CDT [facility] Blood (Blood, Venous) 06/06/2024 10:00 AM CDT 06/06/2024 10:04 AM CDT Lazaro Chin APRN, CNP LAB BLOOD ORDERABLES Performing Organization Address [facility] Co de Phone Number [facility] [address] [place] [address] * (ABNORMAL) Procalcitonin (06/06/2024 10:00 AM CDT) Procalcitonin 1.34(H) 0.00 - 0.07 ng/mL 06/06/2024 11:18 AM CDT [facility] Comment: The results from this test [...] CNP LAB BLOOD ORDERABLES Performing Organization Address City/[facility] de Phone Number [facility] [address] [place] [address] * (ABNORMAL) C-reactive protein (06/06/2024 10:00 AM CDT) CRP >320.0(H) 0.0 - 4.9 mg/L 06/06/2024 10:32 AM CDT [facility] Blood (Blood, Venous) 06/06/2024 10:00 AM CDT 06/06/2024 10:04 AM CDT Narrative [facility] - 06/06/2024 10:32 AM CDT Called to Gely Jay, BUN 78, RBA , [phone], 10:27 06/06/2024 [id number] Lazaro Chin APRN, CNP LAB BLOOD ORDERABLES Performing Organization Address City/[facility] Co de Phone Number [facility] [address] [place] [phone] * (ABNORMAL) Protime-INR (06/06/2024 10:00 AM CDT) Protime 19.0(H) 9.4 - 12.5 seconds 06/06/2024 10:17 AM CDT [facility] INR 1.6 06/06/2024 10:17 AM CDT [facility] Comment: Suggested INR Therapeutic Ranges* Intensity ?Standard ?Higher ? 2.0-3.0 ? 2.5-3.5 *Target INR should be individualized. Occasionally,INR range 3.0-4.5 may be appropriate. Higher intensity INR: Mechanical heart valve, etc. Blood (Blood, Venous) 06/06/2024 10:00 AM CDT 06/06/2024 10:04 AM CDT Lazaro Chin APRN, BARREL WASHER MACHINE LAB BLOOD ORDERABLES Performing Organization Address [facility] Co de Phone Number [facility] [address] [place] [phone] * (ABNORMAL) Magnesium (06/06/2024 10:00 AM CDT) Magnesium 2.5(H) 1.6 - 2.3 mg/dL 06/06/2024 10:27 AM CDT [facility] Blood (Blood, Venous) 06/06/2024 10:00 AM CDT 06/06/2024 10:04 AM CDT Narrative [facility] - 06/06/2024 10:27 AM CDT Called to Gely Jay, BUN 78, RBA , [phone], 10:27 06/06/2024 [id number] Lazaro Chin APRN, CNP LAB BLOOD ORDERABLES Performing Organization Address [facility] Co de Phone Number [facility] [address] [place] [phone] * (ABNORMAL) Hemoglobin A1c (06/06/2024 10:00 AM CDT) Hemoglobin A1C 9.0(H) 4.0 - 5.6 % A1C 06/08/2024 2:29 AM CDT [facility] Comment: Reference Range 4.0-5.6% is for [...] CNP LAB BLOOD ORDERABLES Performing Organization Address [facility] de Phone Number [facility] [address] [place] [address] * Lactate, plasma (06/06/2024 10:00 AM CDT) Lactate 1.3 0.5 - 2.0 mmol/L 06/06/2024 10:20 AM CDT [facility] Blood (Blood, Venous) 06/06/2024 10:00 AM CDT 06/06/2024 10:04 AM CDT Lazaro Chin APRN, CNP LAB BLOOD ORDERABLES Performing Organization Address [facility] Co de Phone Number [facility] [address] [place] [address] * (ABNORMAL) Basic metabolic panel (06/06/2024 10:00 AM CDT) Sodium 134(L) 135 - 145 mEq/L 06/06/2024 10:27 AM [facility] Potassium 4.5 3.5 - 5.1 mEq/L 06/06/2024 10:27 AM [facility] Chloride 98 98 - 107 mEq/L 06/06/2024 10:27 AM [facility] CO2 24 22 - 31 mmol/L 06/06/2024 10:27 AM [facility] Creatinine 2.61(H) 0.60 - 1.40 mg/dL 06/06/2024 10:27 AM [facility] BUN 78(HH) 5 - 25 mg/dL 06/06/2024 10:27 AM [facility] Glucose 254(H) 70 - 100 mg/dL 06/06/2024 10:27 AM [facility] Calcium, Total,S 9.6 8.4 - 10.2 mg/dL 06/06/2024 10:27 AM [facility] Anion Gap 12 4 - 13 06/06/2024 10:27 AM [facility] Comment: The anion gap is calculated with the following formula: AGAP = Na ? (Cl + CO2). Fasting? Unknown 06/06/2024 10:04 AM [facility] Blood (Blood, Venous) 06/06/2024 10:00 AM CDT 06/06/2024 10:04 AM T [facility] - 06/06/2024 10:27 AM T Called to Gely Jay, BUN 78, RBA , [phone], 10:27 06/06/2024 [id number] Lazaro Chin APRN, BARREL WASHER MACHINE LAB BLOOD ORDERABLES [facility] [address] [place] [address] * (ABNORMAL) CBC auto differential (06/06/2024 10:00 AM CDT) WBC 21.3(H) 3.5 - 10.5 K/uL 06/06/2024 10:30 AM [facility] RBC 5.56 4.30 - 5.70 M/uL 06/06/2024 10:30 AM [facility] Hemoglobin 16.7 13.5 - 17.5 g/dL 06/06/2024 10:30 AM [facility] Hematocrit 51.3(H) 38.0 - 50.0 % 06/06/2024 10:30 AM [facility] Platelets 302 150 - 450 K/uL 06/06/2024 10:30 AM [facility] MCV 92.3 81.2 - 95.1 fL 06/06/2024 10:30 AM [facility] MCH 30.0 26.0 - 32.0 pg 06/06/2024 10:30 AM [facility] MCHC 32.6 32.0 - 36.0 g/dL 06/06/2024 10:30 AM [facility] RDW 14.7 11.8 - 15.6 % 06/06/2024 10:30 AM [facility] NRBC %, Automated 0 % 06/06/2024 10:30 AM [facility] NRBC Absolute, Autmated 0.00 K/uL 06/06/2024 10:30 AM [facility] Comment: 0-4 Days: 0.01 -0.02 >=5 Days: 0.00 Neutrophils 91.0 % 06/06/2024 10:29 AM [facility] Absolute Neutrophils 19.4(H) 1.7 - 7.0 K/uL 06/06/2024 10:30 AM [facility] Lymphocytes % 3.0 % 06/06/2024 10:29 AM [facility] Absolute Lymphocytes 0.6(L) 0.9 - 2.9 K/uL 06/06/2024 10:30 AM [facility] Monocytes % 5.0 % 06/06/2024 10:29 AM [facility] Monocytes Absolute 1.1(H) 0.3 - 0.9 K/uL 06/06/2024 10:30 AM [facility] Eosinophils 1.0 % 06/06/2024 10:29 AM [facility] Absolute Eosinophils 0.2 0.1 - 0.5 K/uL 06/06/2024 10:30 AM [facility] Basophils 0.0 % 06/06/2024 10:29 AM [facility] Absolute Basophils 0.0 0.0 - 0.1 K/uL 06/06/2024 10:30 AM [facility] Immature Leukocytes 0.0 % 06/06/2024 10:29 AM [facility] Immature Leukocytes Absolute 0.00 0.00 - 0.04 K/uL 06/06/2024 10:30 AM [facility] Blood (Blood, Venous) 06/06/2024 10:00 AM CDT 06/06/2024 10:04 AM CDT Lazaro Chin APRN, CNP LAB BLOOD ORDERABLES Performing Organization Address City/[facility]/ZIP Co de Phone Number [facility] [address] [place] [address] * (ABNORMAL) APTT (06/06/2024 10:00 AM CDT) aPTT 40(H) 28 - 37 seconds 06/06/2024 10:17 AM T [facility] Comment: Therapeutic range for unfractionated heparin = 50-90 seconds Blood (Blood, Venous) 06/06/2024 10:00 AM CDT 06/06/2024 10:04 AM CDT Lazaro Chin APRN, CNP LAB BLOOD ORDERABLES Performing Organization Address City/[facility]/ZIP Co de Phone Number [facility] [address] [place], [place] [phone] * Covid-19, Gutierrez ID Now, PCR symptomatic (06/06/2024 9:55 AM CDT) Covid Source Nasal 06/06/2024 10:34 AM CDT [facility] Covid-19, ID Now PCR NEGATIVE Negative 06/06/2024 10:34 AM CDT [facility] Comment: Negative results should be treated as presumptive and, if inconsistent with clinical signs and symptoms or necessary for patient management, should be tested with an alternative molecular assay. Testing was performed using the Gutierrez ID NOW COVID-19 2.0 assay. Swab (Nasal) 06/06/2024 9:55 AM CDT 06/06/2024 10:34 AM CDT Lazaro Chin APRN, CNP LAB MOLECU LAR DIAGNOSTICS ORDERABLES Performing Organization Address [facility]/ZIP Co de Phone Number [facility] [address] [place] [address] * Tissue Culture, Anaerobic (06/06/2024 9:36 AM CDT) Tissue Culture, Anaerobic No Anaerobes isolated in 7 days 06/13/2024 10:21 AM CDT [facility] Gram Stain No organisms seen. No WBC's seen. 06/06/2024 2:38 PM CDT [facility] Tissue, Anaerobic (Foot, Right) 06/06/2024 9:36 AM CDT 06/06/2024 11:09 AM CDT Comment:Anaerobic Tissue Cul ture Lazaro Chin APRN, CNP LAB MICROB IOLOGY - GENERAL ORDERABLES Performing Organization Address City/[facility]/ZIP Co de Phone Number [facility] [address] [place] [address] * (ABNORMAL) Tissue culture, aerobic (06/06/2024 9:36 AM CDT) Gram Stain No organisms seen. No WBC's seen. 06/06/2024 2:38 PM CDT [facility] Tissue Culture, Aerobic Staphylococcus aureus Use oxacillin interpretation to predict results for anti-staphylococc al beta-lactam antibiotics (except ceftaroline). (A) 06/08/2024 7:11 AM CDT [facility] Tissue, Aerobic (Foot, Right) 06/06/2024 9:36 AM CDT 06/06/2024 11:09 AM CDT Comment:Tissue Culture Aerob ic Narrative Organism Antibiotic Method Susceptibility Staphylococcus aureus Clindamycin <=0.5 mcg/mL: Susceptible Staphylococcus aureus Erythromycin <=0.5 mcg/mL: Susceptible Staphylococcus aureus Oxacillin <=0.25 mcg/mL: Susceptible Staphylococcus aureus Tetracycline <=4 mcg/mL: Susceptible Staphylococcus aureus Trimeth/Sulfa <=0.5/9.5 mcg/mL: Susceptible Lazaro Chin APRN, CNP LAB MICROB IOLOGY - GENERAL ORDERABLES [facility] [address] [place] [address] documented in this encounter Visit Diagnoses Diagnosis [...] atrial fibrillation (HCC) Infection of right foot Type 2 diabetes mellitus with diabetic neuropathy, without long-term current use of insulin (HCC) documented in this encounter Admitting Diagnoses [...] 10 days, Do not crush or chew. Bupivacaine 0.5% with Lidocaine 2% MIXED 1:1 in 20 mL As needed, Starting on Sat06/08/24 at 1447, Intraprocedure Given 06/08/2024 2:47 PM CDT 14 mL Right Foot carvedilol (COREG) tablet 25 mg 25 mg, Oral, 2 times daily with meals, First dose on Sat06/14/24 at 1800, For 10 days Given 06/17/2024 7:36 AM CDT 25 mg Given 06/16/2024 5:42 PM CDT 25 mg Given 06/16/2024 7:32 AM CDT 25 mg Dabs solution 3 L for OR 3 L, Irrigation, Once, On Sat06/08/24 at 1700, For 1 dose, Preprocedure, Reason for therapy: Surgical Prophylaxis Given 06/08/2024 2:33 PM CDT 3,000 mL Right Foot dextrose (GLUTOSE) oral gel 40% (1 Tube [...] since 06/14/2024 at 1524 until manually unheld Given 06/14/2024 2:24 PM CDT 60 mg Given 06/14/2024 8:07 AM CDT 60 mg Given 06/14/2024 2:28 AM CDT 60 mg diphenhydrAMINE (BENADRYL) tablet 25 mg 25 mg, Oral, Every 6 hours PRN, itching, Starting on 06/10/24 at 1408, For 10 days Given 06/10/2024 [...] RAJESH Vidal) 0935 (Given - Provider: Rachael Anna, SHARI)2051 (Given - Provider: Emiliana Chaparro, SHARI) 0814 (Given - Provider: Domi Mcdonald, SHARI) atorvastatin (LIPITOR) tablet 40 mg () 40 mg, Oral, Daily, First dose on Sat06/07/24 at 0900, For 9 doses 0828 (Given - Provider: RAJESH Dee) atorvastatin (LIPITOR) tablet 40 mg 40 mg, Oral, Daily, First dose (after last reorder) on Sat06/16/24 at 0900, For 5 days 0935 (Given - Provider: Rachael Anna, SHARI) 0814 (Given - Provider: Domi Mcdonald, SHARI) carvedilol (COREG) tablet 25 mg 25 mg, Oral, 2 times daily with meals, First dose on Sat06/14/24 at 1800, For 10 days 0718 (Given - Provider: RAJESH Dee)1803 (Given - Provider: RAJESH Vidal) 0732 (Given - Provider: Rachael Anna, RN)1742 (Given - Provider: Alice Rogers, RN) 0736 (Given - Provider: Domi Mcdonald, [...] (Dose Auto Held - Provider: Pina Bonilla MD)1658 (Unheld by provider - Provider: Automatic Discharge Provider) enoxaparin (LOVENOX) syringe 40 mg (CANCELED) 40 mg, Subcutaneous, Every 24 hours scheduled, First dose on Sat06/13/24 at 0900, For 5 days, Indications: Prophylaxis of Venous Thromboembolism 0828 (Given - Provider: RAJESH Dee) ertapenem (INVanz) 1 g in sodium chloride 0.9 % 50 mL [id number]-[id number] Plus (COMPLETED) 1 g, Intravenous, at 100 [...] RN) 0842 (Given - Provider: Domi Mcdonald, SHARI) insulin glargine (LANTUS) inj pen 20 Units 20 Units, Subcutaneous, Nightly, First dose (after last modification) on 06/13/24 at 2100, For 5 doses, Target 0.1-0.5 units/kg based on patient's insulin sensitivity, long acting/total daily insulin ratio. 2323 (Given - Provider: RAJESH Vidal) 220 (Given - Provider: Emiliana Chaparro, RN) insulin [...] Anna, RN)1747 (Given - Provider: Alice Rogers, RN) 0840 (Given - Provider: Domi Mcdonald, RN)1215 (Given - Provider: Domi Mcdonald, RN) insulin [...] met) 1022 (Not Given - Provider: Alicia Warner, SHARI - Reason: Medication not available - Comment: insulin pen did not have enough units for coverage)1325 (Given - Provider: Rachael Anna RN)1756 (Given - Provider: Alice Rogers, SHARI)2205 [...] ordering guidance and correction scales. Link provided. 5697 (Given - Provider: RAJESH Vidal) 5968 (Not Given - Provider: Emiliana Chaparro RN - Reason: Order parameters not met) Continuous [...] options ordered. 1013 (See Alternative - Provider: KASEY DeeN)2105 (See Alternative - Provider: RAJESH Vidal) 1256 (See Alternative - Provider: Rachael Anna, SHARI)2214 (See Alternative - Provider: Emiliana Chaparro RN) 0819 (See Alternative - Provider: Domi Mcdonald, [...] 0746 (See Alternative - Provider: Rachael Anna, RN) oxyCODONE (ROXICODONE) immediate release tablet 10 mg(Linked Group 3) 10 mg, Oral, Every 4 hours PRN, Pain 6-10, For pain rating 6-10, Starting on 06/08/24 at 1539, For 10 days, 1st Line. If inadequate response within 60 minutes, proceed to next-line agent for same PRN reason or contact provider if no further options ordered. 1013 (Given - Provider: RAJESH Dee)2105 (Given - Provider: RAJESH Vidal) 1256 (Given - Provider: Rachael Anna, SHARI)2214 (Given - Provider: Emiliana Chaparro, SHARI) 0819 (Given - Provider: Domi Mcdonald RN) oxyCODONE (ROXICODONE) immediate release tablet 5 mg(Linked [...] 6-10, For pain rating 6-10, Starting on 06/08/24 at 1539, For 10 days, 1st Line. [...] documented as of this encounter Care Teams Business Project Analyst Relationship Specialty Start Date End Date Thu Bhagat PA-C [address] [place] [phone] PCP - General 11/26/22 documented as of this encounter
--- OUTSIDE RECORDS SUMMARY | 2024-08-21 10:29 | XMS_ITS | Encounter Summary ---
Author Organization [facility] er Address [address] [place] [address] Care Team Providers Care Counselor Education Professor Name Role Phone Thu Bhagat PA-C Primary Care Provider [phone] Encounter Details Date Type Department Care Team (Latest Contact Info) Description 06/06/2024 Travel Social History Tobacco Use Types Packs/Day Years [...] from your doctor or pharmacy? Never 06/06/2024 [facility] Utilities Answer Date Recorded In the [...] often do you attend chur ch or worship services? More than 4 times per year [...] the past 12 m [facility], were you homeless or living in a [...] st Contact Info) Description 08/24/2024 8:30 AM SUPERVISOR CALIBRATION Office Visit [facility] [address] [place] [phone] 08/24/2024 11:30 AM SUPERVISOR CALIBRATION Office Visit [facility] [address] [place], [place] [address] Angel Coombs, DPM [address] [place] [phone] 08/25/2024 8:30 AM SUPERVISOR CALIBRATION Office Visit [facility] [address] [place] [address] 08/26/2024 8:30 AM SUPERVISOR CALIBRATION Office Visit [facility] [address] [place] [address] 08/27/2024 8:30 AM SUPERVISOR CALIBRATION Office Visit [facility] [address] [place] [address] 08/27/2024 11:00 AM SUPERVISOR CALIBRATION Office Visit [facility] [address] [place] [phone] Vilma Neves MD [address] [place] [phone] 08/28/2024 8:30 AM SUPERVISOR CALIBRATION Office Visit [facility] [address] [place] [phone] 08/31/2024 8:30 AM SUPERVISOR CALIBRATION Office Visit [facility] [address] [place] [address] 09/01/2024 8:30 AM SUPERVISOR CALIBRATION Office Visit [facility] [address] [place] [address] 09/02/2024 8:30 AM SUPERVISOR CALIBRATION Office Visit [facility] [address] [place] [phone] 09/03/2024 8:30 AM SUPERVISOR CALIBRATION Office Visit [facility] [address] [place] [phone] 09/03/2024 11:00 AM SUPERVISOR CALIBRATION Office Visit [facility] [address] [place] [phone] Vilma Neves MD [address] [place] [phone] 09/03/2024 11:00 AM SUPERVISOR CALIBRATION Office Visit [facility] Infectious Disease [address] [place] [phone] Amairani Sigala MD [address] [place] [address] [phone] 09/04/2024 8:30 AM SUPERVISOR CALIBRATION Office Visit [facility] [address] [place] [address] [phone] 09/07/2024 8:30 AM SUPERVISOR CALIBRATION Office Visit [facility] [address] [place] [address] 09/08/2024 8:30 AM SUPERVISOR CALIBRATION Office Visit [facility] [address] [place] [phone] 09/09/2024 8:30 AM SUPERVISOR CALIBRATION Office Visit [facility] [address] [place] [phone] 09/10/2024 8:30 AM SUPERVISOR CALIBRATION Office Visit [facility] [address] [place] [address] 09/10/2024 11:20 AM SUPERVISOR CALIBRATION Office Visit [facility] [address] [place] [phone] Vilma Neves MD [address] [place] [phone] 09/11/2024 8:30 AM SUPERVISOR CALIBRATION Office Visit [facility] [address] [place] [phone] 09/14/2024 8:30 AM SUPERVISOR CALIBRATION Office Visit [facility] [address] [place] [phone] 09/15/2024 8:30 AM SUPERVISOR CALIBRATION Office Visit [facility] [address] [place] [phone] documented as of this encounter Visit Diagnoses Not on filedocumented in this encounter Additional Health Concerns Infection Onset Date Last Indicated Resolved Time COVID-19 Rule Out 06/06/2024 06/06/2024 06/06/2024 10:34 AM CDT documented as of this encounter Care Teams Counselor Education Professor Relationship Specialty Start Date End Date Thu Bhagat PA-C [address] [place] [phone] PCP - General 11/26/22 documented as of this encounter
--- OUTSIDE RECORDS SUMMARY | 2024-08-21 10:29 | XMS_ITS | Encounter Summary ---
Author Organization [facility] er Address [address] [place] [address] Care Team Providers Care Die Baker Name Role Phone Thu Bhagat PA-C Primary Care Provider [phone] Reason for Visit * Reason Comments Foot Ulcer * Auth/Cert (Routine) Specialty Diagnoses / Procedures Referred By Contac t Referred To Contact Diagnoses na Procedures na Referral ID Status Reason Start Date Expiration Date Visits Re quested Visits Authorized [id number] 1 1 Encounter Details Date Type Department Care Team (Late st Contact Info) Description 06/02/2024 6:18 PM CDT - 06/02/2024 7:14 PM CDT Emergency [facility] Emergency Room [address] [place] [id number] Cellulitis of right lower extremity (Primary Dx); [...] oz pur e alcohol) 3x / week PHQ-2 Answer Date Recorded PHQ-9 Total Score 0 06/01/2024 Sex and Gender Information Value Date Recorded Sex Assigned at Not on file Gender Identity Not on file Sexual Orientation Not on file documented as of this encounter Last Filed Vital Signs Vital Sign Reading Time Taken Comments Blood Pressure 125/70 06/02/2024 6:18 PM CDT Pulse 120 06/02/2024 6:18 PM CDT Temperature 37.8 ??C (100 ??F) 06/02/2024 6:18 PM CDT Respiratory Rate 20 06/02/2024 6:18 PM CDT Oxygen Saturation 94% 06/02/2024 6:18 PM CDT Inhaled Oxygen Concentration - - Weight 89 kg (196 lb 3.4 oz) 06/02/2024 6:18 PM CDT Height 185.4 cm (6' 1) 06/02/2024 6:18 PM CDT Body Mass Index 25.89 06/02/2024 6:18 PM CDT documented in this encounter Discharge Instructions * Discharge Instructions* Derrell Monreal PA-C - 06/02/2024 7:11 PM CDT Take 1 capsule of doxycycline twice a day for 14 days. Please complete the full 14-day course of this antibiotic. For pain, take Tylenol and ibuprofen as needed. You can alternate these every 3 hours. Please schedule appointment with your primary care physician [facility] the [facility] for further evaluation. Of course, if symptoms significantly worsen, please return to the ER. documented in this encounter Medications at Time [...] mouth 2 (two) times a day 10/01/2023 Empagliflozin 25 MG tablet Take 25 mg [...] UNABLE TO FIND Med Name: Neurvive supplement doxycycline (Vibramycin) 100 MG capsuleIndications:Ce llulitis of right lower extremity Take 1 capsule (100 mg total) by mouth 2 (two) times a day for 14 days 28 capsule 06/02/2024 06/16/2024 atorvastatin (LIPITOR) 10 MG tablet Take by mouth 1 (one) time each day 06/06/2024 glipiZIDE (GLUCOTROL XL) 5 MG 24 hr tablet Take 1 tablet (5 mg total) by mouth every night Do not crush, chew, or split. 06/06/2024 metoprolol succinate XL (TOPROL-XL) 100 MG 24 hr tablet Take by mouth 1 (one) time each day Do not crush or chew. 06/06/2024 documented as of this encounter ED Notes * Shari Velazquez RN - 06/02/2024 6:21 PM CDT Pt presents c/o ongoing right foot pain. Pt was seen for this and was supposed to follow up in wound clinic but was unable. Pt reports 2 week cough as well. * Derrell Monreal PA-C - 06/02/2024 6:07 PM CDT HPI Chief Complaint Patient presents with Foot Ulcer Patient is a 69-year-old male with past medical history significant for atrial fibrillation, hypertension, stroke, type 2 diabetes, cerebellar infarction, migraine. He presents to the ER today with complaints of right foot pain from an ulcer on the plantar aspect of his right foot just proximal to the big toe. He states the pain has been increasing and he has had new onset swelling in the foot. He was seen for this same issue 4 days ago on 05/29 in acute care. Areferral was made to the wound clinic, however he states that he checked with the [facility] and they would not pay for this visit. He states he is working to get in with his primary care physician at the [facility] for this problem. However, he does say that when he was seen 4 days ago, his foot was not nearly as painful and was not swollen at all. He has not taken any pain medications. History provided by: Patient laboratory equipment installer used: No Patient History Patient History Allergies Allergen Reactions Niacin Other (see comments) makes me feel like I'm burning Past Medical History: Diagnosis Date Atrial fibrillation (HCC) 02/03/2016 Compression fracture of vertebra ([facility]) 02/04/2017 Confusion 05/20/2018 Dizziness 08/05/2012 Essential hypertension [...] in adult 02/09/2016 Presbyopia 03/15/2005 Stroke ([facility]) 05/23/2018 Type 2 diabetes mellitus with diabetic neuropathy, unspecified ([facility]) 09/22/2012 Unspecified systolic (congestive) heart failure ([facility]) 05/23/2018 History reviewed. No pertinent surgical history. Family History Problem Relation Age of Onset Macular degeneration Maternal Grandmother Social History Tobacco Use Smoking status: Never Passive exposure: Never Smokeless tobacco: Never Vaping Use Vaping status: Never Used Substance Use Topics Alcohol use: Yes Alcohol/week: 2.0 standard drinks of alcohol Types: 2 Cans of beer per week Comment: 3x / week Drug use: Not Currently Review of Systems Review of Systems Constitutional: Negative for chills and fever. Musculoskeletal: Positive for arthralgias (right foot) and joint swelling (right foot). Skin: Positive for wound (diabetic foot ulcer right plantar foot). Physical Exam ED Triage Vitals [06/02/24 1818] Temp Heart Rate Resp BP 37.8 ??C (100 ??F) (!) 120 20 125/70 SpO2 Temp Source Heart Rate Source Patient Position 94 % Temporal Monitor Sitting BP Location FiO2 (%) Weight Right arm -- 89 kg (196 lb 3.4 oz) Body mass index is 25.89 kg/m??. Physical Exam Constitutional: General: He is not in acute distress. Appearance: Normal appearance. He is normal weight. He is not ill-appearing, toxic-appearing or diaphoretic. HENT: Head: Normocephalic and atraumatic. Right Ear: External ear normal. Left Ear: External ear normal. Eyes: Extraocular Movements: Extraocular movements intact. Conjunctiva/sclera: Conjunctivae normal. Cardiovascular: Rate and Rhythm: Tachycardia present. Pulmonary: Effort: Pulmonary effort is normal. Musculoskeletal: Cervical back: Normal range of motion. Right foot: Swelling and tenderness present. Feet: Right foot: Skin integrity: Ulcer, erythema and warmth present. Skin: General: Skin is warm and dry. Neurological: General: No focal deficit present. Mental Status: He is alert and oriented to person, place, and time. Psychiatric: Mood and Affect: Mood normal. Behavior: Behavior normal. Point Comfort Coma Scale Score: 15 Procedures Labs Reviewed - No data to display ED Course & MDM Medical Decision Making Upon entering the room, the patient is in no acute distress and not ill- appearing. Tachycardic at 120, but all other vital signs are within normal limits. On physical exam, there is noticeable erythema and swelling of the right foot. There is also presence of known diabetic foot ulcer at the distalaspect of his first metatarsal. The area is [...] contacted his primary care physician at the [facility] in [place] to work on getting an appointment to further evaluate his diabetic foot ulcer. I did discuss returning to the ER with worsening symptoms or development of high fevers, and he voiced understanding and agreement. Discharge at this time. Amount and/or Complexity of Data Reviewed Radiology: ordered. Risk Prescription drug management. Follow Up Thu Bhagat PA-C 1 [facility] [phone] Schedule an appointment as soon as possible for a visit Patient's Medications New Prescriptions DOXYCYCLINE (VIBRAMYCIN) 100 MG CAPSULE Take 1 capsule (100 mg total) by mouth 2 (two) times a day for 14 days Previous Medications APIXABAN (ELIQUIS) 5 MG TABLET [...] 1 tablet (12.5 mg total) by mouth EMPAGLIFLOZIN 25 MG TABLET Take 25 mg [...] Medications No medications on file Discharge Instructions Take 1 capsule of doxycycline twice a day for 14 days. Please complete the full 14-day course of this antibiotic. For pain, take Tylenol and ibuprofen as needed. You can alternate these every 3 hours. Please schedule appointment with your primary care physician at the [facility] for further evaluation. Of course, if symptoms significantly worsen, please return to the ER. ED COURSE and CLINICAL IMPRESSION ED Course as of 06/02/241912Jun 02, 20241907 XR foot right 3+ views Per my read, no acute bony abnormalities noted. [MS] ED Course User Index [MS] Derrell Monreal, GABBIE Clinical Impressions as of 08/13/24 1913 Cellulitis of right lower extremity Diabetic ulcer of right midfoot associated with type 2 diabetes mellitus, unspecified ulcer stage (HCC) Disposition: Discharge Derrell Monreal PA-C 06/02/241912 documented in this encounter Plan of Treatment Upcoming Encounters Date Type Department Care Team (Late st Contact Info) Description 08/24/2024 8:30 AM SOLE POLISHER Office Visit [facility] Wound Care [address] [place] [phone] 08/24/2024 11:30 AM SOLE POLISHER Office Visit Podiatry [address] [place] [phone] Angel Coombs, KERVIN [address] [place] [phone] 08/25/2024 8:30 AM SOLE POLISHER Office Visit [facility] Wound Care [address] [place] [phone] 08/26/2024 8:30 AM SOLE POLISHER Office Visit [facility] W[facility] [address] [place] [phone] 08/27/2024 8:30 AM SOLE POLISHER Office Visit [facility] W[facility] Care [address] [place] [phone] 08/27/2024 11:00 AM SOLE POLISHER Office Visit [facility] [address] [place] [phone] Vilma Neves MD [address] [place] [phone] 08/28/2024 8:30 AM SOLE POLISHER Office Visit [facility] W[facility] [address] [place] [phone] 08/31/2024 8:30 AM SOLE POLISHER Office Visit [facility] [address] [place] [phone] 09/01/2024 8:30 AM SOLE POLISHER Office Visit [facility] W[facility] Care [address] [place] [phone] 09/02/2024 8:30 AM SOLE POLISHER Office Visit [facility] [address] [place] [phone] 09/03/2024 8:30 AM SOLE POLISHER Office Visit [facility] [address] [place] [phone] 09/03/2024 11:00 AM SOLE POLISHER Office Visit [facility] [address] [place] [phone] Vilma Neves MD [address] [place] [phone] 09/03/2024 11:00 AM SOLE POLISHER Office Visit [facility] Infectious Disease [address] [place] [phone] Amairani Sigala MD [address] [place] [phone] 09/04/2024 8:30 AM SOLE POLISHER Office Visit [facility] [address] [place] [phone] 09/07/2024 8:30 AM SOLE POLISHER Office Visit [facility] [address] [place] [phone] 09/08/2024 8:30 AM SOLE POLISHER Office Visit [facility] [address] [place] [phone] 09/09/2024 8:30 AM SOLE POLISHER Office Visit [facility] [address] [place] [phone] 09/10/2024 8:30 AM SOLE POLISHER Office Visit [facility] [address] [place] [phone] 09/10/2024 11:20 AM SOLE POLISHER Office Visit [facility] [address] [place] [phone] Vilma Neves MD [address] [place] [phone] 09/11/2024 8:30 AM SOLE POLISHER Office Visit [facility] Wound Care [address] [place] [address] 09/14/2024 8:30 AM SOLE POLISHER Office Visit [facility] W[facility] Care [address] [place] [address] 09/15/2024 8:30 AM SOLE POLISHER Office Visit [facility] W[facility] Care [address] [place] [address] documented as of this encounter Procedures Procedure Name Priority Date/Time Associated Diagnosis Comments XR FOOT 3+ VIEWS RIGHT STAT 06/02/2024 6:53 PM CDT documented in this encounter Results * XR foot right 3+ views (06/02/2024 [...] radiographic evidence of osteomyelitis. Derrell Monreal PA-C IMLamar XR PROCEDURES documented in this encounter Visit Diagnoses Diagnosis Cellulitis of right lower extremity- Primary Diabetic ulcer of right midfoot associated with type 2 diabetes mellitus, unspecified ulcer stage (HCC) documented in this encounter Administered Medications Inactive Administered Medications - up to 3 most recent administrations Medication Order MAR Action Action Date Dose Rate Site ibuprofen (ADVIL) tablet 600 mg 600 mg, Oral, Once, On Sat06/02/24 at 1825, For 1 dose Given 06/02/2024 6:29 PM CDT 600 mg documented in this encounter Active and Recently Administered Medications Times are shown in CDT. Scheduled Medication Order 05/31/2024 06/01/2024 06/02/2024 ibuprofen (ADVIL) tablet 600 mg (COMPLETED) 600 mg, Oral, Once, On Sat06/02/24 at 1825, For 1 dose 182 (Given - Provid er: Shari Velazquez RN) documented in this encounter Care Teams Die Baker Relationship Specialty Start Date End Date Thu Bhagat PA-C [address] [place] [phone] PCP - General 11/26/22 documented as of this encounter
--- OUTSIDE RECORDS SUMMARY | 2024-08-21 10:29 | XMS_ITS | Encounter Summary ---
Author Organization [facility] er Address [address] [place] [address] Care Team Providers Care Armored Service Technician Name Role Phone Thu Bhagat PA-C Primary Care Provider [phone] Reason for Visit * Reason Comments Cough Started a week ago * Consultation (Routine) - Authorized Specialty Diagnoses / Procedures Referred By Kaley laguna Referred To Contact Urgent Care / Family Medicine Diagnoses right foot ulcer, cough and cold. Procedures WALK IN Acute Care [address] [place] [address] [place] [address] Referral ID Status Reason Start Date Expiration Date V isits Requested Visits Authorized [id number] Authorized 06/01/2024 06/01/2025 1 1 Encounter Details Date Type Department Care Team ([facility] st Contact Info) Description 06/01/2024 1:15 PM CDT Office Visit Acute Care [address] [place] [address] Domo Boss PA-C [address] [place] [address] Viral upper respiratory infection (Primary Dx) Social History Tobacco Use Types [...] Sign Reading Time Taken Comments Blood Pressure 123/86 06/01/2024 1:24 PM CDT Pulse 95 06/01/2024 1:24 PM CDT Temperature 36.4 ??C (97.6 ??F) 06/01/2024 1:24 PM CD T Respiratory Rate 16 06/01/2024 1:24 PM CDT Oxygen Saturation 97% 06/01/2024 1:24 PM CDT Inhaled Oxygen Concentration - - Weight 91.4 kg (201 lb 8 oz) 06/01/2024 1:24 PM CDT Height - - Body Mass Index 26.58 06/05/2023 8:16 AM CDT documented in this encounter Patient Instructions * Patient Instructions* Domo Boss PA-C - 06/01/2024 1:15 PM CDT Viral upper respiratory infection Plan: -Plenty of sleep -Humidified air -Plenty of fluids -Coricidin -Zyrtec 10 mg once daily -Flonase once daily one spray in each nostril for 14 days -Lozenges -Throat Coat tea with honey -Tylenol 1000 mg every 6 hours as needed with pain -Please follow up with PCP if you develop new fever or symptoms start to get worse documented in this encounter Progress Notes * Domo Boss PA-C - 06/01/2024 1:15 PM CDT Subjective Patient ID: Francisco Javier Fung is a 69 y.o. male. HPI Patient presents with cold symptoms. It has been present for 14 days. Patient is able to eat and drink. His blood sugar was elevated today at 420 today. Patient has tried cough drops. Endorse runny nose, postnasal drip, and intermittently productive cough with yellow phlegm. Denies fever, chills, sore throat, nausea, vomiting, difficulty breathing, or chest pain. No history of asthma. He thinks he had hay fever as a child. Patient has been urinating more often and has been more thirsty. He denies blurred vision or increased appetite. Patient was seen on 05/29/2020 for right sided diabetic foot ulcer. Patient was referred to wound clinic. He did have a an appointment scheduled, but ollie oden [facility] not think [facility]. A provider reviewed the following portions of the patient's chart in this encounter and updated as appropriate: Tobacco Allergies Meds Problems Med Hx Surg Hx Fam Hx Objective Blood pressure 123/86, pulse 95, temperature 36.4 ??C (97.6 ??F), temperature source Temporal, resp. rate 16, weight 91.4 kg (201 lb 8 oz), SpO2 97%. Physical Exam GENERAL: Ill appearing male in no acute distress. SKIN: Warm, dry, and pink. No rashes or lesions. HEAD: Normocephalic. EYES: Conjunctiva clear. Sclera white. No drainage. ENT: Ear canals clear bilaterally. TMs dull. Turbinates boggy and pale with drainage noted. Posterior pharynx is erythematous with cobblestoning and postnasal discharge noted. Tonsils without exudates or lesions. LYMPHS: Mildly enlarged tender anterior cervical lymphadenopathy. HEART: Regular rate and rhythm. No murmurs, rubs, or gallops. LUNGS: Clear to auscultation. No wheeze or crackles. MENTAL: Alert and oriented to person, place, and time. Assessment/Plan Acute Upper Respiratory Infection Francisco Javier Fung is a 69-year-old male who presents today for evaluation of cold symptoms. Patient is afebrile, nontoxic, and in no acute distress. Patient was instructed that this was viral in nature and antibiotics were not indicated. SpO2 is 97% and patient had normal lung sounds on exam. I suspect his cough is due to postnasal drip. Home cares were given. Patient should rest, increase fluids, and take Tylenol or Ibuprofen as needed for discomfort. Patient was instructed they could try to use humidifier. They could also use honeyas natural cough suppressant. Plain mucinex available over the counter could also be helpful. This is an expectorant. Patient could also use antihistamine. We did discuss symptoms in which to return for. I recommended the patient follow-up with his PCP for his diabetic foot ulcer and elevated bloodsugars at home. Patient should go to the emergency department if he has severe symptoms such as difficulty breathing or lightheadedness/dizziness. Patient verbalized understanding and agrees with plan of care. Patient Instructions Viral upper respiratory infection Plan: -Plenty of sleep -Humidified air -Plenty of fluids -Coricidin -Zyrtec 10 mg once daily -Flonase once daily one spray in each nostril for 14 days -Lozenges -Throat Coat tea with honey -Tylenol 1000 mg every 6 hours as needed with pain -Please follow up with PCP if you develop new fever or symptoms start to get worse Domo Boss PA-C documented in this encounter Plan of Treatment Upcoming Encounters Date Type Department Care Team (Late st Contact Info) Description 08/24/2024 8:30 AM HOG TRADER Office Visit [facility] Wound Care [address] [place] [phone] 08/24/2024 11:30 AM HOG TRADER Office Visit [facility] [address], [place] [address] Angel Coombs, DPM [address] [place] [phone] 08/25/2024 8:30 AM HOG TRADER Office Visit [facility] Wound Care [address] [place] [phone] 08/26/2024 8:30 AM HOG TRADER Office Visit [facility] [address] [place] [phone] 08/27/2024 8:30 AM HOG TRADER Office Visit [facility] W[facility] [address] [place] [address] [phone] 08/27/2024 11:00 AM HOG TRADER Office Visit [facility] [address] [place] [phone] Vilma Neves MD [address] [place] [phone] 08/28/2024 8:30 AM HOG TRADER Office Visit [facility] W[facility] [address] [place] [phone] 08/31/2024 8:30 AM HOG TRADER Office Visit [facility] W[facility] [address] [place] [address] 32655 09/01/2024 8:30 AM HOG TRADER Office Visit [facility] W[facility] [address] [place] [address] 92631 09/02/2024 8:30 AM HOG TRADER Office Visit [facility] [address] [place] [address] [phone] 09/03/2024 8:30 AM HOG TRADER Office Visit [facility] W[facility] [address] [place] [address] [phone] 09/03/2024 11:00 AM HOG TRADER Office Visit [facility] W[facility] [address] [place] [phone] Vilma Neves MD [address] [place] [phone] 09/03/2024 11:00 AM HOG TRADER Office Visit [facility] Infectious Disease [address] [place] [phone] Amairani Sigala MD [address] [place] [phone] 09/04/2024 8:30 AM HOG TRADER Office Visit [facility] W[facility] Care [address] [place] [address] [phone] 09/07/2024 8:30 AM HOG TRADER Office Visit [facility] W[facility] [address] [place] [address] 41675 09/08/2024 8:30 AM HOG TRADER Office Visit [facility] W[facility] [address] [place] [address] 11370 09/09/2024 8:30 AM HOG TRADER Office Visit [facility] W[facility] [address] [place] [address] [phone] 09/10/2024 8:30 AM HOG TRADER Office Visit [facility] [address] [place] [address] [phone] 09/10/2024 11:20 AM HOG TRADER Office Visit [facility] W[facility] [address] [place] [phone] Vilma Neves MD [address] [place] [address] [phone] 09/11/2024 8:30 AM HOG TRADER Office Visit [facility] [address] [place] [address] 22905 09/14/2024 8:30 AM HOG TRADER Office Visit [facility] [address] [place] [address] [phone] 09/15/2024 8:30 AM HOG TRADER Office Visit [facility] W[facility] [address] [place] [address] 22557 documented as of this encounter Visit Diagnoses Diagnosis Viral upper respiratory infection- Primary Acute upper respiratory infections of unspecified site documented in this encounter Care Teams Armored Service Technician Relationship Specialty Start Date End Date Thu Bhagat PA-C [address] [place] [phone] PCP - General 11/26/22 documented as of this encounter
--- OUTSIDE RECORDS SUMMARY | 2024-08-21 10:29 | XMS_ITS | Encounter Summary ---
Author Organization [facility] er Address [address] [place] [address] Care Team Providers Care Emergency Response Coordinator Name Role Phone Thu Bhagat PA-C Primary Care Provider Encounter Details Date Type Department Care Team (Latest Contact Info) Description 06/02/2024 Travel Social History Tobacco Use Types Packs/Day [...] st Contact Info) Description 08/24/2024 8:30 AM RUGBY LEAGUE FOOTBALLER Office Visit [facility] Wound Care [address] [place], [place] [address] 08/24/2024 11:30 AM RUGBY LEAGUE FOOTBALLER [facility] Visit [facility] [address] [place], [place] [phone] Angel Coombs, DPM [address] [place] [phone] 08/25/2024 8:30 AM RUGBY LEAGUE FOOTBALLER Office Visit [facility] W[facility] Care [address] [place] [address] 08/26/2024 8:30 AM RUGBY LEAGUE FOOTBALLER Office Visit [facility] Wound Care [address] [place] [address] 08/27/2024 8:30 AM RUGBY LEAGUE FOOTBALLER Office Visit [facility] W[facility] Care [address] [place] [address] 08/27/2024 11:00 AM RUGBY LEAGUE FOOTBALLER Office Visit [facility] W[facility] Care [address] [place] [address] 96[address] Vilma Neves MD [address] [place] [phone] 08/28/2024 8:30 AM RUGBY LEAGUE FOOTBALLER Office Visit [facility] W[facility] Care [address] [place] [address] 08/31/2024 8:30 AM RUGBY LEAGUE FOOTBALLER Office Visit [facility] W[facility] Care [address] [place] [phone] 09/01/2024 8:30 AM RUGBY LEAGUE FOOTBALLER Office Visit [facility] W[facility] Care [address] [place] [address] 32960 09/02/2024 8:30 AM RUGBY LEAGUE FOOTBALLER Office Visit [facility] W[facility] Care [address] [place] [phone] 09/03/2024 8:30 AM RUGBY LEAGUE FOOTBALLER Office Visit [facility] W[facility] Care [address] [place] [address] 52977 09/03/2024 11:00 AM RUGBY LEAGUE FOOTBALLER Office Visit [facility] W[facility] Care [address] [place] [address]14 Vilma Neves MD [address] [place] [phone] 09/03/2024 11:00 AM RUGBY LEAGUE FOOTBALLER Office Visit [facility] Infectious Disease [address] [place] [address] Amairani Sigala MD [address] [place] [phone] 09/04/2024 8:30 AM RUGBY LEAGUE FOOTBALLER Office Visit [facility] W[facility] Care [address] [place] [address] 09/07/2024 8:30 AM RUGBY LEAGUE FOOTBALLER Office Visit [facility] [address] [place] [address] 09/08/2024 8:30 AM RUGBY LEAGUE FOOTBALLER Office Visit [facility] W[facility] [address] [place] [address] [phone] 09/09/2024 8:30 AM RUGBY LEAGUE FOOTBALLER Office Visit [facility] W[facility] [address] [place] [phone] 09/10/2024 8:30 AM RUGBY LEAGUE FOOTBALLER Office Visit [facility] W[facility] Care [address] [place] [phone] 09/10/2024 11:20 AM RUGBY LEAGUE FOOTBALLER Office Visit [facility] W[facility] Care [address] [place] [address] [phone] Vilma Neves MD [address] [place] [address] [phone] 09/11/2024 8:30 AM RUGBY LEAGUE FOOTBALLER Office Visit [facility] W[facility] Care [address] [place] [address] 7[address]66 09/14/2024 8:30 AM RUGBY LEAGUE FOOTBALLER Office Visit [facility] W[facility] [address] [place] [phone] 09/15/2024 8:30 AM RUGBY LEAGUE FOOTBALLER Office Visit [facility] W[facility] Care [address] [place] [phone] documented as of this encounter Visit Diagnoses Not on filedocumented in this encounter Care Teams Emergency Response Coordinator Relationship Specialty Start Date End Date Thu Bhagat PA-C [address] [place] [phone] PCP - General 11/26/22 documented as of this encounter
--- OUTSIDE RECORDS SUMMARY | 2024-08-21 10:29 | XMS_ITS | Encounter Summary ---
Author Organization [facility] er Address [address] [place] [address] Care Team Providers Care Barrel Rifler Broach Name Role Phone Thu Bhagat PA-C Primary Care Provider [phone] Reason for Referral * Consultation (Routine) - Closed Specialty Diagnoses / Procedures Referred By Contac t Referred To Contact Wound Care Diagnoses Type 2 diabetes mellitus with right diabetic foot ulcer (HCC) Dinorah Mak DNP, PABLO, CYANIDE POT HARDENER [address] [place] [phone] [facility] [address] [place] [address] Referral ID Status Reason Start Date Expiration Date V isits Requested Visits Authorized [id number] Closed Specialty Services Required 05/29/2024 05/29/2025 1 1 Scheduling Instructions Please call the Wound Care Wire Photo Operator desk at [phone] to schedule an appointment. * Consultation (Routine) - Closed Specialty Diagnoses / Procedures Referred By Contac t Referred To Contact Family Medicine Diagnoses Blood pressure check Dinorah Mak DNP, APRN, CYANIDE POT HARDENER [address] [place] [phone] Family Medicine [address] [place] [address] Referral ID Status Reason Start Date Expiration Date Visits Re quested Visits Authorized [id number] Closed 05/29/2024 05/29/2025 99 99 Reason for Visit * Reason Comments Foot Pain Started about a kimberly h ago as a blood blister. On his right bottom foot. He his type 2 diabetic. Has gotten worse. * Consultation (Routine) - Closed Specialty Diagnoses / Procedures Referred By Kaley t Referred To Contact Emergency Medicine / Family Medicine Diagnoses sore on foot DB Procedures WALK IN Dinorah Mak DNP, PABLO, DAGO [address] [place] [phone] Dinorah Mak DNP, APRN, DAGO [address] [place] [phone] Referral ID Status Reason Start Date Expiration Date Visits Re quested Visits Authorized [id number] Closed 05/29/2024 05/29/2025 1 1 Encounter Details Date Type Department Care Team (Late st Contact Info) Description 05/29/2024 8:30 AM CDT Office Visit [facility] [address] [place] [address] Dinorah Mak DNP, APRN, CYANIDE POT HARDENER [address] [place] [phone] Type 2 diabetes mellitus with right diabetic foot ulcer (HCC) (Primary Dx); Blood pressure check Social History Tobacco Use Types Packs/Day Years Used Date Smoking Tobacco: Never Passive Smoke Exposure: Never Smokeless Tobacco: Never Alcohol Use Standard Drinks/Week Comments Yes 2 (1 standard drink = 0.6 oz pur e alcohol) 3x / week PHQ-2 Answer Date Recorded PHQ-9 Total Score 0 05/29/2024 Sex and Gender Information Value Date Recorded Sex Assigned at Not on file Gender Identity Not on file Sexual Orientation Not on file documented as of this encounter Last Filed Vital Signs Vital Sign Reading Time Taken Comments Blood Pressure 131/95 05/29/2024 8:36 AM CDT Pulse 73 05/29/2024 8:29 AM CDT Temperature 36.8 ??C (98.2 ??F) 05/29/2024 8:29 AM CD T Respiratory Rate 20 05/29/2024 8:29 AM CDT Oxygen Saturation 96% 05/29/2024 8:29 AM CDT Inhaled Oxygen Concentration - - Weight 91.7 kg (202 lb 0.8 oz) 05/29/2024 8:29 A M CDT Height - - Body Mass Index 26.66 06/05/2023 8:16 AM CDT documented in this encounter Patient Instructions * Patient Instructions* Dinorah Mak DNP, APRN, CNP - 05/29/2024 8:30 AM CDT Try to reduce pressure on this wound. Avoid further use of hydrogen peroxide. Cleanse daily with soap and water. Follow up with wound clinic for further treatment of this wound. documented in this encounter Progress Notes * Dinorah Mak DNP, APRN, CNP - 05/29/2024 8:30 AM CDT Subjective History was provided by the patient. Francisco Javier Fung is a pleasant 69 y.o. male who presents for evaluation of right plantar foot sore x1 month. Started out looking like a blood blister about 1 month ago and has continued to worsen without improvement. No pain when not weight bearing. Bilateral neuropathy. No fevers. The pain has increased over the last month. He has been applying hydrogen peroxide daily since he first noticed thiswound. No drainage from the wound. Patient reports walking 3 miles daily. BG yesterday was 200, which is a little high for him. He checks his BG every 1-2 weeks at home. No recent Hgb A1c documented. Last lab glucose 12/25/22 was 308. (See ROS below for further details). Review of Systems Constitutional: Negative for fatigue and fever. Musculoskeletal: Negative for myalgias. Skin: Positive for wound (right plantar foot). Neurological: Positive for numbness (neuropathy in bilateral feet). The following portions of the patient's chart were reviewed in this encounter and updated as appropriate: Tobacco Allergies Meds Med Hx Surg Hx Fam Hx Soc Hx Allergies Allergen Reactions Niacin Other (see comments) makes me feel like I'm burning Objective Blood pressure (!) 131/95, pulse 73, temperature 36.8 ??C (98.2 ??F), temperature source Temporal, resp. rate 20, weight 91.7 kg (202 lb 0.8 oz), SpO2 96%. Physical Exam Vitals reviewed. Constitutional: General: He is awake. He is not in acute distress. Appearance: Normal appearance. He is well-developed, well-groomed and normal weight. He is not ill-appearing or toxic-appearing. Cardiovascular: Pulses: Dorsalis pedis pulses are 2+ on the right side. Musculoskeletal: Right foot: Normal range of motion. Feet: Right foot: Skin integrity: Ulcer and callus (right ball of foot callus surrounding ulcer) present. No erythemaor warmth. Comments: No sensation in the toes up to mid foot on the right plantar foot. On the right ball of the foot is a 7mm x 9mm ulcer, measuring 2mm deep. No tunneling or undermining noted. Scab over woundwas lifted to reveal a moist- appearing, pink wound bed. No surrounding erythema or swelling. No bony tenderness. Full ROM with dorsi and plantar flexion. No pain with palpation. Subjective pain with ambulation. No gait abnormality noted. Capillary refill 2 seconds. Skin: General: Skin is warm and dry. Neurological: Mental Status: He is alert. Psychiatric: Mood and Affect: Mood normal. Behavior: Behavior normal. Behavior is cooperative. Procedures Assessment and Plan 1. Type 2 diabetes mellitus with right diabetic foot ulcer (HCC) Patient presents to the acute care clinic for evaluation of wound on the right plantar foot, which has been present for the last 1 month. Patient walks 3 miles daily. He initially noted this wound appearing as a blood blister 1 month ago. Over this time he has used hydrogen peroxide daily to cleanse the site. He notes that the wound has failed to improve, but has become more painful with weightbea ring. Patient is type II diabetic. Most recent home blood glucose reading was 200 yesterday. No recent hemoglobin A1c. On exam there is an ulcer involving the right plantar foot over the ball of the foot measuring 7 mmx 9 mm x 2 mm deep. No tunneling or undermining noted. Scab over wound was lifted to reveal a moist-appearing, pink wound bed. No drainage or discharge. No surrounding erythema or swelling. No bony tenderness. Full range of motion. Patient does have neuropathy bilaterally and has loss of sensation in the toes and plantar foot extending to midfoot. No evidence of wound infection on today's exam. Advised patient to discontinue the use of daily hydrogen peroxide. Instead cleanse the site with soap and water daily. Clinical photographs were obtained today. Referral placed for wound clinic for further management. - Ambulatory referral to Wound Clinic 2. Blood pressure check Discussed with patient that their blood pressure is not currently at goal during today's clinic visit. Patient was screened for emergent symptoms and no high risk symptoms were noted. Patient was advised to follow up in primary care for their elevated blood pressure reading today. - AMB Referral for Routine Blood Pressure Check PATIENT EDUCATION Patient is ready to learn, no apparent learning barriers are identified. Learning preferences include listening. Verbal and written instructions provided. Explained diagnosis and treatment plan, patient expressed understanding of the content. Patient agreed with today's plan. Return precautions andfollow up recommendations were reviewed. All questions were answered. documented in this encounter Plan of Treatment Upcoming Encounters Date Type Department Care Team (Late st Contact Info) Description 08/24/2024 8:30 AM LEAD DATABASE ADMINISTRATOR Office Visit [facility] W[facility] Care [address] [place] [phone] 08/24/2024 11:30 AM LEAD DATABASE ADMINISTRATOR [facility] Visit [facility] [address] [place] [address] Angel Coombs, DPM [address] [place] [phone] 08/25/2024 8:30 AM LEAD DATABASE ADMINISTRATOR Office Visit [facility] W[facility] Care [address] [place] [phone] 08/26/2024 8:30 AM LEAD DATABASE ADMINISTRATOR Office Visit [facility] Wound Care [address] [place] [phone] 08/27/2024 8:30 AM LEAD DATABASE ADMINISTRATOR Office Visit [facility] Wound Care [address] [place] [address] [phone] 08/27/2024 11:00 AM LEAD DATABASE ADMINISTRATOR Office Visit [facility] Wound Care [address] [place] [address] Vilma Neves MD [address] [place] [phone] 08/28/2024 8:30 AM LEAD DATABASE ADMINISTRATOR Office Visit [facility] Wound Care [address] [place] [address] [phone] 08/31/2024 8:30 AM LEAD DATABASE ADMINISTRATOR Office Visit [facility] Wound Care [address] [place] [address] 28412 09/01/2024 8:30 AM LEAD DATABASE ADMINISTRATOR Office Visit [facility] Wound Care [address] [place] [address] [phone] 09/02/2024 8:30 AM LEAD DATABASE ADMINISTRATOR Office Visit [facility] W[facility] Care [address] [place] [address] [phone] 09/03/2024 8:30 AM LEAD DATABASE ADMINISTRATOR Office Visit [facility] W[facility] Care [address] [place] [address] [phone] 09/03/2024 11:00 AM LEAD DATABASE ADMINISTRATOR Office Visit [facility] W[facility] Care [address] [place] [address] 42573 Vilma Neves MD [address] [place] [phone] 09/03/2024 11:00 AM LEAD DATABASE ADMINISTRATOR Office Visit [facility] Infectious Disease [address] [place] [phone] Amairani Sigala MD [address] [place] [phone] 09/04/2024 8:30 AM LEAD DATABASE ADMINISTRATOR Office Visit [facility] Wound Care [address] [place] [address] [phone] 09/07/2024 8:30 AM LEAD DATABASE ADMINISTRATOR Office Visit [facility] Wound Care [address] [place] [address] [phone] 09/08/2024 8:30 AM LEAD DATABASE ADMINISTRATOR Office Visit [facility] Wound Care [address] [place] [address] [phone] 09/09/2024 8:30 AM LEAD DATABASE ADMINISTRATOR Office Visit [facility] W[facility] Care [address] [place] [address] [phone] 09/10/2024 8:30 AM LEAD DATABASE ADMINISTRATOR Office Visit [facility] Wound Care [address] [place] [address] [phone] 09/10/2024 11:20 AM LEAD DATABASE ADMINISTRATOR Office Visit [facility] Wound Care [address] [place] [address] 61747 Vilma Neves MD [address] [place] [phone] 09/11/2024 8:30 AM LEAD DATABASE ADMINISTRATOR Office Visit [facility] W[facility] Care [address] [place] [address] [phone] 09/14/2024 8:30 AM LEAD DATABASE ADMINISTRATOR Office Visit [facility] Wound Care [address] [place] [address] [phone] 09/15/2024 8:30 AM LEAD DATABASE ADMINISTRATOR Office Visit [facility] Wound Care [address] [place] [address] [phone] Scheduled Referrals Name Type Priority Associated Diagnoses Order Schedule AMB Referral for Routine Blood Pressure Check Outpatient Referral Routine Blood pressure check Ordered: 05/29/2024 Ambulatory referral to Wound Clinic Outpatient Referral Routine Type 2 diabetes mellitus with right diabetic foot ulcer (HCC) Ordered: 05/29/2024 documented as of this encounter Visit Diagnoses Diagnosis Type 2 diabetes mellitus with right diabetic foot ulcer (HCC)- Primary Blood pressure check Screening for hypertension documented in this encounter Care Teams Barrel Rifler Broach Relationship Specialty Start Date End Date Thu Bhagat PA-C [address] [place] [phone] PCP - General 11/26/22 documented as of this encounter
[2024-08-21 11:09] LABS: Appearance Urine Clear (Clear); Bilirubin Urine Negative (Negative); Blood Urine Negative (Negative); Color Urine Yellow (Yellow); Glucose Urine 3+ (Negative); Ketones Urine Negative (Negative); Leukocyte Esterase Urine Negative (Negative); Nitrite Urine Negative (Negative); Protein Urine Negative (Negative); Urobilinogen Urine 0.2 (0.2-1.0); pH Urine 5.5 (5.0-8.5)
[2024-08-21 11:30] LABS: Chloride* 104 mmol/L (96-114)
[2024-08-21 11:31] LABS: Albumin* 4.5 g/dL (3.3-5.0); Potassium* 4.1 mmol/L (3.6-5.1); Sodium* 138 mmol/L (135-149)
[2024-08-21 11:33] LABS: Bilirubin Total* 1.2 mg/dL (0.1-1.5); Creatinine* 1.1 mg/dL (0.5-1.5); Estimated Glomerular Filt Rate 74 ml/min
[2024-08-21 11:34] LABS: Alanine Aminotransferase* 22 U/L (4-50); Alkaline Phosphatase* 49 U/L (40-150); Anion Gap 10 mEq/L (7-15); Aspartate Amino Transferase* 30 U/L (12-35); Blood Urea Nitrogen* 22 mg/dL (7-30); Carbon Dioxide* 24 mmol/L (20-32); Glucose* 115 mg/dL (60-115); Total Protein* 7.5 g/dL (6.0-8.3)
[2024-08-21 11:35] LABS: Calcium* 9.5 mg/dL (8.4-10.6)
== END 2024-08-21 10:06 | disposition home or self-care (01) ==
PROVIDERS: Visit Provider Chiropractor
DX: I51.9 Heart disease, unspecified (principal); E11.9 Type 2 diabetes mellitus without complications
CPT/HCPCS: 36415; 80053; 81003; 93306